=== PATIENT | female | born 1965 | race Caucasian/White ===

== ENCOUNTER → 2019-12-07 09:35 | Outpatient (BNVA) | payer MEDICAID, SELFPAY | PROVIDERS: PCP Family Medicine; Visit Provider Physician Assistant | DX: M17.12 Unilateral primary osteoarthritis, left knee (principal) | CPT/HCPCS: 20610; 99212; J1040 ==

== ENCOUNTER 2019-12-20 13:31 | Outpatient (REF) | payer MEDICAID, SELFPAY ==
[2019-12-21 13:25] LABS: CT PCR NOT DETECTED (Not Detect.); NG PCR NOT DETECTED (Not Detect.)
[2019-12-22 18:27] LABS: HPV mRNA E6/E7 Not Detected (Not Detected)
== END 2019-12-20 13:32 | disposition home or self-care (01) ==
LOC: HO.LAB 13:31
PROVIDERS: PCP Family Medicine; Referring Provider Family Medicine; Visit Provider Obstetrics & Gynecology
DX: Z01.419 Encounter for gynecological examination (general) (routine) without abnormal findings (principal); Z11.51 Encounter for screening for human papillomavirus (HPV); R10.2 Pelvic and perineal pain; Z11.3 Encounter for screening for infections with a predominantly sexual mode of transmission
CPT/HCPCS: 87491; 87591; 87624; 87625; 88142

== ENCOUNTER 2019-12-22 14:42 | Outpatient (REF) | payer MEDICAID, SELFPAY ==
--- NOTE | 2019-12-22 14:46 | US_ITS ---
EXAMINATION: ULTRASOUND PELVIS COMPLETE CLINICAL INFORMATION: Pelvic and perineal pain. COMPARISON: None TECHNIQUE: Transabdominal ultrasound pelvis is performed. FINDINGS: The uterus is anteverted and anteflexed measuring 10.6 cm in length, 3.2 cm in AP and 5.8 cm in transverse dimension. Endometrial thickness is 0.53 cm. No focal lesion seen. There is small nabothian cysts seen. Right ovary measures 3.0 x 1.0 x 2.0 cm and volume 3.14 mL. It appears unremarkable. Left ovary measures 2.6 x 1.7 x 2.19 cm and volume 5.18 mL There is no free fluid in cul-de-sac. US/US transvaginal IMPRESSION: Small nabothian cysts. Otherwise unremarkable uterus and ovaries.
--- NOTE | 2019-12-22 14:46 | US_ITS ---
EXAMINATION: ULTRASOUND PELVIS COMPLETE CLINICAL INFORMATION: Pelvic and perineal pain. COMPARISON: None TECHNIQUE: Transabdominal ultrasound pelvis is performed. FINDINGS: The uterus is anteverted and anteflexed measuring 10.6 cm in length, 3.2 cm in AP and 5.8 cm in transverse dimension. Endometrial thickness is 0.53 cm. No focal lesion seen. There is small nabothian cysts seen. Right ovary measures 3.0 x 1.0 x 2.0 cm and volume 3.14 mL. It appears unremarkable. Left ovary measures 2.6 x 1.7 x 2.19 cm and volume 5.18 mL There is no free fluid in cul-de-sac. US/US pelvic complete IMPRESSION: Small nabothian cysts. Otherwise unremarkable uterus and ovaries.
== END 2019-12-22 14:43 | disposition home or self-care (01) ==
LOC: HO.US 14:42
PROVIDERS: Visit Provider Obstetrics & Gynecology
DX: R10.2 Pelvic and perineal pain (principal)
CPT/HCPCS: 76830; 76856

== ENCOUNTER → 2020-01-03 09:30 | Outpatient (BNVA) | payer MEDICAID, SELFPAY | PROVIDERS: PCP Family Medicine; Visit Provider Internal Medicine Endocrinology, Diabetes & Metabolism | DX: E11.649 Type 2 diabetes mellitus with hypoglycemia without coma (principal); E11.21 Type 2 diabetes mellitus with diabetic nephropathy; E11.43 Type 2 diabetes mellitus with diabetic autonomic (poly)neuropathy; K31.84 Gastroparesis; Z79.4 Long term (current) use of insulin; E78.5 Hyperlipidemia, unspecified; I10 Essential (primary) hypertension | CPT/HCPCS: 99212 ==

== ENCOUNTER → 2020-01-06 10:03 | Outpatient (BNVA) | payer MEDICAID, SELFPAY | PROVIDERS: PCP Family Medicine; Visit Provider Dietitian, Registered | DX: Z76.89 Persons encountering health services in other specified circumstances (principal) ==

== ENCOUNTER 2020-01-11 08:34 | Outpatient (REF) | payer MEDICAID, SELFPAY | END 2020-01-11 08:35 | disposition home or self-care (01) | LOC: HO.LAB 08:34 | PROVIDERS: PCP Family Medicine; Referring Provider Internal Medicine Endocrinology, Diabetes & Metabolism; Visit Provider Obstetrics & Gynecology | DX: M47.816 Spondylosis without myelopathy or radiculopathy, lumbar region (principal) | CPT/HCPCS: 87086; 99212 ==

== ENCOUNTER → 2020-01-20 08:38 | Outpatient (BNVA) | payer MEDICAID, SELFPAY | PROVIDERS: PCP Family Medicine; Visit Provider Physician Assistant | DX: M17.12 Unilateral primary osteoarthritis, left knee (principal) | CPT/HCPCS: 20610; J7318 ==

== ENCOUNTER 2020-01-27 12:56 | Emergency (ER) | payer MEDICAID, SELFPAY ==
[2020-01-27 15:17] VITALS: BP 147/78; PULSE 73; RESP 16; TEMP 37.2; O2SAT 99; BMI 30.7
== END 2020-01-27 15:30 | disposition left against medical advice (07) ==
PROVIDERS: Emergency Provider Emergency Medicine; PCP Family Medicine
DX: Z04.9 Encounter for examination and observation for unspecified reason (principal)
CPT/HCPCS: 99281; 99282

== ENCOUNTER → 2020-02-10 10:59 | Outpatient (BNVA) | payer MEDICAID, SELFPAY | PROVIDERS: PCP Family Medicine; Referring Provider Family Medicine; Visit Provider Internal Medicine Gastroenterology | DX: Z76.89 Persons encountering health services in other specified circumstances (principal) ==

== ENCOUNTER → 2020-02-17 10:54 | Outpatient (BNVA) | payer MEDICAID, SELFPAY | PROVIDERS: PCP Family Medicine; Visit Provider Dietitian, Registered | DX: Z76.89 Persons encountering health services in other specified circumstances (principal) ==

== ENCOUNTER → 2020-03-05 08:44 | Outpatient (BNVA) | payer MEDICAID, SELFPAY | PROVIDERS: PCP Family Medicine; Referring Provider Family Medicine; Visit Provider Internal Medicine Endocrinology, Diabetes & Metabolism | DX: R00.0 Tachycardia, unspecified (principal); E11.649 Type 2 diabetes mellitus with hypoglycemia without coma; T38.3X5A Adverse effect of insulin and oral hypoglycemic [antidiabetic] drugs, initial encounter; E11.43 Type 2 diabetes mellitus with diabetic autonomic (poly)neuropathy; K31.84 Gastroparesis; E11.21 Type 2 diabetes mellitus with diabetic nephropathy; Z79.4 Long term (current) use of insulin; E78.5 Hyperlipidemia, unspecified; I10 Essential (primary) hypertension | CPT/HCPCS: 93005; 99212 ==

== ENCOUNTER 2020-03-23 10:54 | Day surgery (SDC) | payer MEDICAID, SELFPAY ==
[2020-03-22 12:07] VITALS: BMI 42.9
--- NOTE | 2020-03-22 13:34 | P.CONAN_ITS ---
Documented by User: Mala Ana Cristina 03/22/20 13:41 HPI - Anesthesia Eval Consult details Narrative: 54yo F for Therapeutic Medial Branch Block,L3,L4,DR L5 Follows cardiology for inappropriate tachy. Increased inderal and split into 2 doses. Thought to be secondary to autonomic imbalance. Instructed to follow up in 2 years. [facility] Past Medical History Medical History Anemia Asthma Chest pain 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, uncontrolled Diabetic nephropathy associated with type 2 diabetes mellitus Dyslipidemia Family history of colon cancer Fibromyalgia Gastroparesis Genu valgum GERD (gastroesophageal reflux disease) Hemorrhoids HTN (hypertension) 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 due to insulin Inappropriate sinus tachycardia correction (current) use of insulin Low back pain Lumbar spondylosis Migraine Obesity Palpitations Patella-femoral syndrome Patellofemoral arthritis Sinus tachycardia Spondylosis of lumbar region without myelopathy or radiculopathy Tubular adenoma Vitamin D deficiency Family History Family History Father Stomach cancer Mother Heart disease HTN (hypertension) Diabetes Son No problems noted. Paternal Aunt Stomach cancer Sister Stomach cancer Sister Uterine cancer Surgical History Surgical History H/O esophagogastroduodenoscopy History of arthroscopy of right knee History of bilateral carpal tunnel release History of bladder surgery History of colonoscopy History of tubal ligation Hx of tonsillectomy Social History Social History Household Members: Children Alcohol intake: current Alcohol intake frequency: does not drink Smoking Status: Former smoker Second Hand Smoke Exposure: No Use of substances other than those prescribed or required for medical reasons: No Advance Directives: No Advance Directives Information Provided: No Advance Directives on File: No Sexual orientation: Straight/Heterosexual Gender identity: female Meds Allergies Allergy/AdvReac Type Severity Reaction Status Date / Time No Known Allergies Allergy Verified 03/19/20 12:40 [No Known Allergies*] Home Medications Medication Instructions Recorded Confirmed Type aripiprazole 10 mg tablet 10 mg PO BEDTIME 11/30/19 03/19/20 History benztropine 0.5 mg tablet 0.5 mg PO DAILY 11/30/19 03/19/20 History clonazepam 1 mg tablet 1 mg PO DAILY 11/30/19 03/19/20 History clonidine HCl 0.1 mg tablet 0.1 mg PO BEDTIME 11/30/19 03/19/20 History ferrous sulfate 325 mg (65 mg 325 mg PO DAILY 11/30/19 03/19/20 History iron) tablet ibuprofen 600 mg tablet 600 mg PO Q8H PRN 11/30/19 03/19/20 History levothyroxine 112 mcg tablet 112 mcg PO DAILY 11/30/19 03/19/20 History omeprazole 20 mg capsule,delayed 20 mg PO DAILY 11/30/19 03/19/20 History release rosuvastatin 20 mg tablet 20 mg PO DAILY 11/30/19 03/19/20 History thiamine HCl (vitamin B1) 100 mg 100 mg PO DAILY 11/30/19 03/19/20 History tablet vitamin A palmitate 15,000 unit 15,000 unit PO DAILY 11/30/19 03/05/20 History tablet aspirin 325 mg tablet 81 mg PO DAILY tab 03/05/20 03/19/20 History cyanocobalamin (vitamin B-12) 1,000 mcg SUBLINGUAL DAILY 03/05/20 03/19/20 History 1,000 mcg sublingual lozenge valsartan 160 mg tablet 320 mg PO DAILY tab 03/05/20 03/19/20 History Exam Exam Date and Time: March 22, 2020 1334 Height,Weight and Vital Signs: Height 5 ft 4 in Weight 113.398 kg Pertinent Lab Results Pertinent Lab Results: Laboratory Tests 11/04/19 11/04/19 14:19 14:19 WBC 10.6 Hgb 11.0 L Hct 36.6 L Plt Count 330 Sodium 140 Potassium 3.4 Chloride 99 BUN 12 Creatinine 0.72 Narrative Narrative: EKG 03/2020 EKG shows sinus tachycardia with possible left atrial enlargement at 103 beats per minute, otherwise normal EKG Assessment and Plan Assessment Anesthesia Assessment: Chart Reviewed Documented by User: Hannah Brown 03/23/20 12:06 [facility] Past Medical History Medical History Anemia Asthma Chest pain 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, uncontrolled Diabetic nephropathy associated with type 2 diabetes mellitus Dyslipidemia Family history of colon cancer Fibromyalgia Gastroparesis Genu valgum GERD (gastroesophageal reflux disease) Hemorrhoids HTN (hypertension) 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 due to insulin Inappropriate sinus tachycardia 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 Paternal Aunt Stomach cancer Sister Stomach cancer Sister Uterine cancer Surgical History Surgical History H/O esophagogastroduodenoscopy History of arthroscopy of right knee History of bilateral carpal tunnel release History of bladder surgery History of colonoscopy History of tubal ligation Hx of tonsillectomy Social History Social History Household Members: Children Alcohol intake: current Alcohol intake frequency: does not drink Smoking Status: Former smoker Second Hand Smoke Exposure: No Use of substances other than those prescribed or required for medical reasons: No Advance Directives: No Advance Directives Information Provided: No Advance Directives on File: No Sexual orientation: Straight/Heterosexual Gender identity: female Meds Allergies Allergy/AdvReac Type Severity Reaction Status Date / Time No Known Allergies Allergy Verified 03/19/20 12:40 [No Known Allergies*] Home Medications Medication Instructions Recorded Confirmed Type aripiprazole 10 mg tablet 10 mg PO BEDTIME 11/30/19 03/19/20 History benztropine 0.5 mg tablet 0.5 mg PO DAILY 11/30/19 03/19/20 History clonazepam 1 mg tablet 1 mg PO DAILY 11/30/19 03/19/20 History clonidine HCl 0.1 mg tablet 0.1 mg PO BEDTIME 11/30/19 03/19/20 History ferrous sulfate 325 mg (65 mg 325 mg PO DAILY 11/30/19 03/19/20 History iron) tablet ibuprofen 600 mg tablet 600 mg PO Q8H PRN 11/30/19 03/19/20 History levothyroxine 112 mcg tablet 112 mcg PO DAILY 11/30/19 03/19/20 History omeprazole 20 mg capsule,delayed 20 mg PO DAILY 11/30/19 03/19/20 History release rosuvastatin 20 mg tablet 20 mg PO DAILY 11/30/19 03/19/20 History thiamine HCl (vitamin B1) 100 mg 100 mg PO DAILY 11/30/19 03/19/20 History tablet vitamin A palmitate 15,000 unit 15,000 unit PO DAILY 11/30/19 03/05/20 History tablet aspirin 325 mg tablet 81 mg PO DAILY tab 03/05/20 03/19/20 History cyanocobalamin (vitamin B-12) 1,000 mcg SUBLINGUAL DAILY 03/05/20 03/19/20 History 1,000 mcg sublingual lozenge valsartan 160 mg tablet 320 mg PO DAILY tab 03/05/20 03/19/20 History Exam Airway Mallampati Class: III TM Dist: >3cm Neck ROM: Limited Loose/Missing/Broken Teeth: No Heart: RRR Lungs: CTA Assessment and Plan Assessment Anesthesia Assessment: Anesthesia Plan Discussed and Chart Reviewed Final Anesthetic Review NPO: Yes ASA Class: III Final Preanesthetic Review: Meds/Allgs Chart Reviewed, Consent Obtained/Reviewed and Anes Risks/Benef Reviewed Patient Risk: Intermediate Procedure Risk: Low Anesthetic Plan Anesthetic Plan: MAC: Disposition: Standard PACU
--- NOTE | 2020-03-23 09:18 | FL_ITS ---
EXAMINATION: XR FLUOROSCOPY WITH IMAGES CLINICAL INFORMATION: Medial branch block COMPARISON: Previous exam October 2019 TECHNIQUE: Fluoroscopy performed by Dr. Juan Carlos Taylor. Fluoroscopy time: 0.7 minutes DAP: 11 Gycm2 Images: 6 FINDINGS: Images demonstrate bilateral L3, L4 and L5 extraforaminal injections. FL/FL guidance in OR IMPRESSION: Fluoroscopic guidance for bilateral lower lumbar spine medial branch block
[2020-03-23 11:52] LABS: Glucose, Whole Blood 85 mg/dL (60-115)
[2020-03-23] MEDS: Lactated Ringers 1,000 ML 100 ML IVCONT (11:58)
--- NOTE | 2020-03-23 13:16 | MHC.SHP ---
Pre-Procedural Eval Section A The patient is an INPATIENT: No The History & Physical has been completed within 30 days and I have reviewed it.: No Section B Chief Complaint: spondylosis without myelopathy or radiculopathy Details of Present Illness: As above Relevant Family History (Specify if Yes): No Relevant Social History: None Present Medications: see Short Stay Collaborative assessment Medical History: No relevant PMH History of Previous Operations: No relevant previous surgery Allergies: Allergies Allergy/AdvReac Type Severity Reaction Status Date / Time No Known Allergies Allergy Verified 03/19/20 12:40 [No Known Allergies*] Review of Systems Sugical H&P ROS: Negative: Constitution, Cardiovascular, Respiratory, Neurological, Psychiatric, Hem-Onc, Allergic/Immunologic, Gastrointestinal, Genitourinary, Musculoskeletal, Integumentary, Endocrine and Eyes/Ears/Nose/Throat Exam Surgical H&P Exam: Normal: HEENT, Normal: Heart, Normal: Lungs, Normal: Extremities, Normal: Abdomen, Normal: Skin and Normal: Neurological Plan Diagnosis/Plan: Unchanged I have reviewed the history and physical and performed a pertinent physical examination on my patient. No changes have occurred unless specified.
--- NOTE | 2020-03-23 13:19 | PC.NURSE ---
PATIENT REPORTED FEELING DIZZINESS AND REQUESTED HER POC BE RETAKEN. POC WAS 53 AND D5 [address] ENNIS WAS NOTIFIED. POC RETAKEN AT 1318 AT 91. PATIENT STATES FEELIJNG MUCH BETTER AT THIS TIME. DR. ENNIS CAME AND CHECKED PATIENT.
[2020-03-23 13:25] LABS: Glucose, Whole Blood 91 mg/dL (60-115)
[2020-03-23 13:25] LABS: Glucose, Whole Blood 53 mg/dL (60-115)
[2020-03-23] MEDS: Dextrose 5 % 1,000 ML 50 ML IVCONT (13:26)
--- NOTE | 2020-03-23 14:01 | PM.OP ---
Brief Operative Note Date of Service: 03/23/20 Pre-op diagnosis: Spondylosis lumbar spine without myelopathy or radiculopathy Post-op diagnosis: same Procedure: Bilateral L3-L4 dorsal ramus L5 medial branch block therapeutic. Implants: None Surgeon: Juan Carlos Taylor MD Anesthesia: MAC Estimated blood loss (mL): 1 Pathology: none sent Condition: stable Disposition: PACU
[2020-03-23 14:02] VITALS: BP 122/62; PULSE 91; RESP 12; TEMP 36.9; O2SAT 95
[2020-03-23 14:05] LABS: Glucose, Whole Blood 76 mg/dL (60-115)
[2020-03-23] MEDS: oxyCODONE HCl Immed Release 5 MG TABLET PO (14:13)
[2020-03-23] MEDS: Acetaminophen 325 MG TABLET 650 MG PO (14:14)
[2020-03-23 14:17] VITALS: BP 136/68; PULSE 88; RESP 17; TEMP 36.9; O2SAT 94
--- NOTE | 2020-03-23 14:17 | PC.NURSE ---
POC on arrival to pacu 76
--- NOTE | 2020-03-23 14:40 | HO.POSTANES ---
Post Anesthesia Evaluation Post Anesthesia Evaluation Vital Signs: Vital Signs Temp Pulse Resp BP Pulse Ox 03/23/20 14:17 98.4 F 88 17 136/68 94 03/23/20 14:02 98.4 F 91 12 122/62 95 Anesthesia: Monitored Mental Status: Awake Pain Control: Satisfactory Nausea/Vomiting: None Hydration: Adequate Anesthesia-Related Issues: No Anes. Related Issues
--- NOTE | 2020-03-27 07:51 | W.PM.OPN ---
Operative Note Operative Note Date of Service: 03/23/20 Narrative: Informed consent was explained to the patient. All questions were explained and answered. The patient was taken inside the operating room where she was positioned prone on the operating table. ASA monitors were applied and the patient was sedated.. Time-out was performed delineating correct site, side, the nature of the procedure, patient's allergy, preoperative antibiotic if needed. All operating room staff was participating in OR time-out procedure. The lower back was prepped with ChloraPrep and draped with sterile towels. Sterilely draped C-arm was brought over the operating field and square picture of L4-and L5 vertebra and S1 AREA were delineated on the screen. Point of interest were delineated as connection of superior articular process of L4 and L5 vertebra bilaterally with corresponding transverse processes, as well as connection of the sacral alae bilaterally with superior articular process of S1. The projections of the point of interest to the skin were injected with the small amount of local anesthetic lidocaine 2% 1-1.5 cc. After that 22 gauge QP spinal needles were driven to the point of interest in tunnel vision fashion. After needles gently contacted the bone at the point of interests the needle was injected with small amount of bupivacaine 0.5%-1cc mixad with kenalog. Total dose of kenalog was 40 mg.. Upon completion of the injections needles were removed and sterile dressings were applied patient was awaken and taken outside of the operating room to recovery room where the patient recovered uneventfully. The patient went home without immediate complications.
== END 2020-03-23 14:42 | disposition home or self-care (01) ==
PROVIDERS: PCP Family Medicine; Visit Provider Anesthesiology
PROC: (CPT 64493; principal; 2020-03-23 13:00)
DX: M47.816 Spondylosis without myelopathy or radiculopathy, lumbar region (principal); E11.649 Type 2 diabetes mellitus with hypoglycemia without coma; E11.21 Type 2 diabetes mellitus with diabetic nephropathy; Z79.4 Long term (current) use of insulin; D64.9 Anemia, unspecified; I10 Essential (primary) hypertension; J45.909 Unspecified asthma, uncomplicated; R00.0 Tachycardia, unspecified; Z79.82 Long term (current) use of aspirin; Z79.899 Other long term (current) drug therapy; Z87.891 Personal history of nicotine dependence
CPT/HCPCS: 64493; 64494 ×2; 82947; J2250; J3010; J3300; Q9967

== ENCOUNTER → 2020-04-17 11:36 | Outpatient (BNVA) | payer MEDICAID, SELFPAY | PROVIDERS: PCP Family Medicine; Visit Provider Internal Medicine Cardiovascular Disease ==

== ENCOUNTER → 2020-04-19 10:51 | Outpatient (BNVA) | payer MEDICAID, SELFPAY | PROVIDERS: PCP Family Medicine; Visit Provider Dietitian, Registered ==

== ENCOUNTER 2020-04-24 14:05 | Outpatient (REF) | payer MEDICAID, SELFPAY ==
--- NOTE | ~2020-04-24 | XR_ITS ---
EXAMINATION: XR CHEST CLINICAL INFORMATION: Contact exposure to viral communicable disease. COMPARISON: 05/05/2019 TECHNIQUE: 2 views of the chest were obtained. FINDINGS: Normal heart size. Mediastinal silhouette is normal. Stable appearance of the beulah. Pulmonary vascularity is within normal limits. No focal consolidation is seen. Linear opacity in the left lung base, similar to previous, probably atelectasis/scarring. No effusion or edema. No pneumothorax. XR/XR chest 2V IMPRESSION: No lobar consolidation.
== END 2020-04-24 14:06 | disposition home or self-care (01) ==
LOC: HO.XRAY 14:05
PROVIDERS: Visit Provider Emergency Medicine
DX: Z20.828 Contact with and (suspected) exposure to other viral communicable diseases (principal)
CPT/HCPCS: 71046

== ENCOUNTER → 2020-04-25 13:36 | Outpatient (BNVA) | payer MEDICAID, SELFPAY | PROVIDERS: PCP Family Medicine; Visit Provider Anesthesiology ==

== ENCOUNTER 2020-05-03 05:44 | Emergency (ER) | payer MEDICAID, SELFPAY ==
--- NOTE | ~2020-05-03 | XR_ITS ---
EXAMINATION: XR LUMBOSACRAL SPINE CLINICAL INFORMATION: Fall. COMPARISON: None TECHNIQUE: Three views of the lumbosacral spine. FINDINGS: There is normal lumbar lordosis. The vertebral heights, alignment and disc heights are normal. There is no visible acute fracture, dislocation or lytic process. There is mild ventral spondylosis lower lobe lumbar spine. There is mild right L4-L5 facet joint arthropathy. A limbus L2 vertebra is noted. The paravertebral soft tissues are normal. XR/XR lumbar spine 2-3V IMPRESSION: No acute fracture or dislocation. Mild ventral spondylosis lower lumbar spine and a limbus vertebra L2 vertebra.
[2020-05-03 06:09] VITALS: BP 112/46; PULSE 85; RESP 20; TEMP 36.7; O2SAT 96; BMI 42.5
--- NOTE | 2020-05-03 06:40 | ED_ITS ---
HPI - Back Pain/Injury General Chief Complaint: Back Pain/Injury Stated Complaint: FALL/BACK PAIN Time Seen by Provider: 05/03/20 06:40 Source: patient Mode of arrival: ambulatory Limitations: no limitations History of Present Illness HPI Narrative: last night slipped in the tub and fell landing on hard in a seated position since then c/o low back pain hurts to talk no other injuries, no AC therapy , no saddle anesthesia, no b/b incontinence MD elicited complaint: back injury Pertinent past history: prior back pain and recent trauma Onset (ago): hour(s) (10) Timing: constant Severity: moderate Similar Symptoms Previously: No Quality: sharp Location: lumbar spine Radiation: none Exacerbating factors: movement and walking Relieving factors: none Context: fall Associated symptoms: denies other symptoms Treatments prior to arrival: cold therapy Work related injury: No Related Data Home Medications Medication Instructions Recorded Confirmed benztropine 0.5 mg tablet 0.5 mg PO DAILY 11/30/19 04/17/20 clonazepam 1 mg tablet 1 mg PO DAILY 11/30/19 04/17/20 clonidine HCl 0.1 mg tablet 0.1 mg PO BEDTIME 11/30/19 04/17/20 ferrous sulfate 325 mg (65 mg 325 mg PO DAILY 11/30/19 04/17/20 iron) tablet ibuprofen 600 mg tablet 600 mg PO Q8H PRN 11/30/19 04/17/20 levothyroxine 112 mcg tablet 112 mcg PO DAILY 11/30/19 04/17/20 omeprazole 20 mg capsule,delayed 20 mg PO DAILY 11/30/19 04/17/20 release rosuvastatin 20 mg tablet 20 mg PO DAILY 11/30/19 04/17/20 thiamine HCl (vitamin B1) 100 mg 100 mg PO DAILY 11/30/19 04/17/20 tablet vitamin A palmitate 15,000 unit 15,000 unit PO DAILY 11/30/19 04/17/20 tablet aspirin 325 mg tablet 81 mg PO DAILY tab 03/05/20 04/17/20 cyanocobalamin (vitamin B-12) 1,000 mcg SUBLINGUAL DAILY 03/05/20 04/17/20 1,000 mcg sublingual lozenge valsartan 160 mg tablet 320 mg PO DAILY tab 03/05/20 04/17/20 aripiprazole 10 mg tablet 10 mg PO BEDTIME 04/17/20 04/17/20 Previous Rx's Medication Instructions Recorded insulin regular hum U-500 conc See Rx Instructions SUBCUT .Twice 01/03/20 a day 30 Days #12 ml gabapentin 400 mg capsule 400 mg PO TID #270 cap 01/17/20 metoclopramide HCl 5 mg tablet 5 mg PO ONCE 30 Days #30 tab MDD 4 02/10/20 metformin 500 mg tablet 500 mg PO BID 90 Days #180 tab 03/08/20 blood sugar diagnostic #150 ea 05/02/20 pen needle, diabetic 32 gauge x #100 ea 05/02/20 propranolol 80 mg tablet 80 mg PO BID 90 Days #180 tab 05/02/20 cyclobenzaprine 10 mg PO TID PRN #14 tab 05/03/20 hydrocodone-acetaminophen 1 tab PO Q6H PRN #10 tab 05/03/20 lidocaine 1 patch TOPICAL DAILY PRN #10 ea 05/03/20 Allergies Allergy/AdvReac Type Severity Reaction Status Date / Time No Known Allergies Allergy Verified 05/03/20 06:12 [No Known Allergies*] Review of Systems Review of Systems: Constitutional : No Weight loss, No Fever, No Chills, ENT/Mouth : No Hearing loss, No Ear Pain, No Nasal Congestion, No Sinus Pain, No Hoarseness, No sore throat, No Rhinorrhea, No Swallowing Difficulty Cardiovascular : No Chest Pain, No SOB Respiratory : No Cough, No Dyspnea Gastrointestinal : No Nausea, No Vomiting, No Diarrhea, No abdominal Pain, No Hematochezia, No Melena Genitourinary : No Dysuria, No Urinary Frequency, No Hematuria, No Urinary Incontinence, Musculoskeletal : positive back pain Skin : No Skin Lesions, No rash Neuro : No Weakness, No Numbness, No Paresthesias, no loss of bowel or bladder incontinence, no saddle anesthesia [facility] Past Medical History Attestation statement: The following information was validated with the patient. 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 Paternal Aunt Stomach cancer Sister Stomach cancer Sister Uterine cancer Social History Social History Household Members: Children Alcohol intake: current Alcohol intake frequency: does not drink Smoking Status: Former smoker Second Hand Smoke Exposure: No Advance Directives: No Advance Directives Information Provided: No Sexual orientation: Straight/Heterosexual Gender identity: female Physical Exam Vital Signs: Vital Signs: Last Vital Signs Temp 98.1 F 05/03/20 06:09 Pulse 85 05/03/20 06:09 Resp 20 05/03/20 06:09 BP 112/46 L 05/03/20 06:09 Pulse Ox 96 05/03/20 06:09 Body Mass Index 42.5 Appearance: Alert. Oriented X3. No acute distress. Eyes: Pupils equal, round and reactive to light. ENT: Pharynx normal. Neck: Normal inspection. Neck supple. CVS: Normal heart rate and rhythm. Pulses normal. Respiratory: No respiratory distress. Breath sounds normal. Abdomen: Soft and nontender. Back: ttp along lower lumbar spine and paraspinals Skin: Skin warm and dry. Normal skin color. Normal skin turgor. Extremities: No lower extremity edema. No calf ttp Neuro: Oriented X 3. No motor deficit. No sensory deficit. SILT inner thigh, L5 5/5 bilaterally Course Course Course Narrative: up and walking feels much better stable for DC MDM - Back Pain/Injury MDM Narrative Medical decision making narrative: 54 yo female with hx of pain issues along with DDD and back pain slipped in the tub last night falling onto her buttocks causing pain will obtain xrays, she is NV intact no CE symptoms, PO pain medications ordered Discharge Plan Discharge Clinical Impression: Acute lumbar myofascial strain Qualifiers: Encounter type: initial encounter Qualified Code(s): S39.012A - Strain of muscle, fascia and tendon of lower back, initial encounter Patient Disposition: Home, Self-Care Instructions: Low Back Strain (ED) Additional Instructions: return to ED for any worsening symptoms or concerns Prescriptions: New cyclobenzaprine 10 mg tablet 10 mg PO TID PRN (Reason: muscle spasm) Qty: 14 RF: 0 lidocaine 4 % adhesive patch,medicated 1 patch topical DAILY PRN (Reason: pain) Qty: 10 RF: 0 hydrocodone-acetaminophen 5-325 mg tablet 1 tab PO Q6H PRN (Reason: pain) Qty: 10 RF: 0 No Action gabapentin 400 mg capsule 400 mg PO TID Qty: 270 RF: 1 metformin 500 mg tablet 500 mg PO BID 90 Days Qty: 180 RF: 1 propranolol 80 mg tablet 80 mg PO BID 90 Days Qty: 180 RF: 3 (DME) pen needle, diabetic [BD Usha 2nd Gen Pen Needle] 32 gauge x 5/32 needle See Rx Instructions .MEDSUPPLY Qty: 100 RF: 4 (DME) FreeStyle Lite Strips Strip See Rx Instructions .MEDSUPPLY Qty: 150 RF: 6 metoclopramide HCl [Reglan] 5 mg tablet 5 mg PO ONCE MDD 4 30 Days Qty: 30 RF: 2 Humulin R U-500 (Conc) Kwikpen 500 unit/mL (3 mL) insulin pen See Rx Instructions subcut .Twice a day 30 Days Qty: 12 RF: 6 clonidine HCl 0.1 mg tablet 0.1 mg PO BEDTIME RF: 0 rosuvastatin [Crestor] 20 mg tablet 20 mg PO DAILY RF: 0 ibuprofen 600 mg tablet 600 mg PO Q8H PRN (Reason: Pain) RF: 0 benztropine 0.5 mg tablet 0.5 mg PO DAILY RF: 0 thiamine HCl (vitamin B1) 100 mg tablet 100 mg PO DAILY RF: 0 vitamin A palmitate 15,000 unit tablet 15,000 unit PO DAILY RF: 0 omeprazole 20 mg capsule,delayed release(DR/EC) 20 mg PO DAILY RF: 0 levothyroxine 112 mcg tablet 112 mcg PO DAILY RF: 0 ferrous sulfate 325 mg (65 mg iron) tablet 325 mg PO DAILY RF: 0 clonazepam 1 mg tablet 1 mg PO DAILY RF: 0 aspirin 325 mg tablet 81 mg PO DAILY RF: 0 cyanocobalamin (vitamin B-12) 1,000 mcg lozenge 1,000 mcg sublingual DAILY RF: 0 valsartan 160 mg tablet 320 mg PO DAILY RF: 0 aripiprazole 10 mg tablet 10 mg PO BEDTIME RF: 0 Referrals: Jaida Martin DO [Primary Care Provider] - 2 days (if not better) Print Language: Mongolian
--- NOTE | 2020-05-03 06:42 | PC.NURSE ---
MD at bedside for primary eval, requesting geospatial extractor analysis.
[2020-05-03] MEDS: diazePAM 5 MG TABLET PO (06:49)
[2020-05-03] MEDS: oxyCODONE HCl Immed Release 5 MG TABLET PO (06:49)
--- NOTE | 2020-05-03 07:36 | PC.NURSE ---
REPORT FROM [facility]. PT SLIP AND FALL YESTERDAY - C/O BACK PAIN. MEDICATED ON PREVIOUS SHIT. AWAITING XRAY. PT IN NO OBVIOUS DISTRESS
--- NOTE | 2020-05-03 08:57 | PC.NURSE ---
PT FEELING MUCH BETTER AFTER MEDS. AMBULATED WITH A SLOW STEADY GAIT. HAS RIDE HOOME. XRAYS NEGATIVE. WILL DC
== END 2020-05-03 08:58 | disposition home or self-care (01) ==
PROVIDERS: Emergency Provider Emergency Medicine; PCP Family Medicine
DX: S39.012A Strain of muscle, fascia and tendon of lower back, initial encounter (principal); W16.212A Fall in (into) filled bathtub causing other injury, initial encounter; E11.9 Type 2 diabetes mellitus without complications; I10 Essential (primary) hypertension; E78.5 Hyperlipidemia, unspecified; M47.816 Spondylosis without myelopathy or radiculopathy, lumbar region; Y93.E1 Activity, personal bathing and showering; Y92.031 Bathroom in apartment as the place of occurrence of the external cause; Y99.9 Unspecified external cause status; Z79.4 Long term (current) use of insulin
CPT/HCPCS: 72100; 99283

== ENCOUNTER → 2020-05-04 13:13 | Outpatient (BNVA) | payer MEDICAID, SELFPAY | PROVIDERS: PCP Family Medicine; Visit Provider Student in an Organized Health Care Education/Training Program | DX: M79.7 Fibromyalgia (principal) | CPT/HCPCS: 99212 ==

== ENCOUNTER 2020-05-09 13:40 | Outpatient (REF) | payer MEDICAID, SELFPAY ==
--- NOTE | ~2020-05-09 | MM_ITS ---
EXAMINATION: MM SCREENING DIGITAL BREAST TOMOSYNTHESIS, BILATERAL CLINICAL INFORMATION: Screening. Asymptomatic. The lifetime risk of breast cancer based on the Tyrer-Cuzick Model is 13%. COMPARISON: Mammography: November 16, 2018 and studies dating back to October 20, 2013 TECHNIQUE: Digital breast tomosynthesis is performed in both the craniocaudal and mediolateral oblique views along with computer-aided detection (CAD). Synthesized 2D images are generated from the tomosynthesis. FINDINGS: There are scattered areas of fibroglandular density (ACR BI-RADS breast composition Category b). There are no significant masses, abnormal calcifications, or other abnormalities. MM/MM tomosynthesis screening BI IMPRESSION: There are no significant changes from prior study. ASSESSMENT: BI-RADS 1: Negative RECOMMENDATION: Routine annual mammography screening. This patient's information was entered into a reminder system with a target due date for their next mammogram.
== END 2020-05-09 13:41 | disposition home or self-care (01) ==
LOC: HO.MAMMO 13:40
PROVIDERS: Visit Provider Obstetrics & Gynecology
DX: Z12.31 Encounter for screening mammogram for malignant neoplasm of breast (principal)
CPT/HCPCS: 77063; 77067

== ENCOUNTER 2020-06-25 08:39 | Outpatient (REF) | payer MEDICAID, SELFPAY ==
[2020-06-25 13:47] LABS: Alanine Aminotransferase 18 U/L (0-31); Albumin Level 4.2 g/dL (3.5-5.0); Alkaline Phosphatase 153 U/L (39-117); Anion Gap 16 (12-20); Aspartate Amino Transferase 21 U/L (5-31); Bilirubin Total 0.3 mg/dL (0.0-1.0); Blood Urea Nitrogen 17 mg/dL (9-16); Carbon Dioxide 29 mmol/L (22-29); Chloride 99 mmol/L (96-108); Cholesterol 105 mg/dL; Estimated Glomerular Filt Rate > 60; Glucose Fasting 248 mg/dL (60-99); HDL Cholesterol 41 mg/dL; LDL Cholesterol Calculated 32 mg/dl; Potassium 3.6 mmol/L (3.3-5.1); Sodium 140 mmol/L (135-145); Triglycerides 162 mg/dL
[2020-06-25 14:10] LABS: Free T4 (Free Thyroxine) 1.14 ng/dL (0.71-1.85); Thyroid Stimulating Hormone 3.11 uIU/mL (0.32-4.0); Vitamin B12 422 pg/mL (200-900)
[2020-06-25 14:35] LABS: Creatinine Urine 52.11 mg/dL; Microalbumin Urine < 5.0 mg/L
[2020-06-26 06:51] LABS: LDL Cholesterol Direct 43 mg/dL (<100)
== END 2020-06-25 08:40 | disposition home or self-care (01) ==
LOC: HO.10HDL 08:39
PROVIDERS: PCP Family Medicine; Visit Provider Internal Medicine Endocrinology, Diabetes & Metabolism
DX: E11.21 Type 2 diabetes mellitus with diabetic nephropathy (principal); E11.649 Type 2 diabetes mellitus with hypoglycemia without coma; K31.84 Gastroparesis; R16.0 Hepatomegaly, not elsewhere classified; T38.3X5A Adverse effect of insulin and oral hypoglycemic [antidiabetic] drugs, initial encounter; E78.5 Hyperlipidemia, unspecified; I10 Essential (primary) hypertension; Z79.4 Long term (current) use of insulin; Z87.891 Personal history of nicotine dependence
CPT/HCPCS: 36415; 80053; 80061; 82043; 82607; 82947; 83721; 84439; 84443; 99212

== ENCOUNTER → 2020-07-02 09:38 | Outpatient (BNVA) | payer MEDICAID, SELFPAY | PROVIDERS: PCP Family Medicine; Visit Provider Anesthesiology | DX: E66.01 Morbid (severe) obesity due to excess calories (principal); M41.9 Scoliosis, unspecified; M47.816 Spondylosis without myelopathy or radiculopathy, lumbar region | CPT/HCPCS: 99202 ==

== ENCOUNTER 2020-07-12 08:02 | Outpatient (REF) | payer MEDICAID, SELFPAY ==
--- NOTE | ~2020-07-12 | XR_ITS ---
EXAMINATION: XR STANDING AP KNEES XR KNEE, LEFT CLINICAL INFORMATION: Knee pain COMPARISON: Radiographs left knee 06/15/2019, 09/10/2017; radiographs right knee 09/10/2017. TECHNIQUE: Standing AP view of both knees is performed along with lateral and axial patella views of the left knee. FINDINGS: Left: No fracture or dislocation, destructive process, or suprapatellar effusion. There is mild soft tissue swelling lower prepatellar soft tissues in region of patellar tendon. No patella tito or patella baja. There is narrowing medial knee joint compartment and mild degenerative change patellofemoral joint with lateral patellar spur. No erosive change. Right: No joint narrowing or erosive change. No destructive process or periostitis. XR/XR knee standing BI IMPRESSION: 1. Left: Narrowing medial knee joint compartment and mild degenerative changes patellofemoral joint. Superficial anterior soft tissue swelling just below patella. 2. Right: Unremarkable.
--- NOTE | ~2020-07-12 | XR_ITS ---
EXAMINATION: XR STANDING AP KNEES XR KNEE, LEFT CLINICAL INFORMATION: Knee pain COMPARISON: Radiographs left knee 06/15/2019, 09/10/2017; radiographs right knee 09/10/2017. TECHNIQUE: Standing AP view of both knees is performed along with lateral and axial patella views of the left knee. FINDINGS: Left: No fracture or dislocation, destructive process, or suprapatellar effusion. There is mild soft tissue swelling lower prepatellar soft tissues in region of patellar tendon. No patella tito or patella baja. There is narrowing medial knee joint compartment and mild degenerative change patellofemoral joint with lateral patellar spur. No erosive change. Right: No joint narrowing or erosive change. No destructive process or periostitis. XR/XR knee LT 2V IMPRESSION: 1. Left: Narrowing medial knee joint compartment and mild degenerative changes patellofemoral joint. Superficial anterior soft tissue swelling just below patella. 2. Right: Unremarkable.
== END 2020-07-12 08:03 | disposition home or self-care (01) ==
LOC: HO.HOSX 08:02
PROVIDERS: Visit Provider Physician Assistant
DX: M25.562 Pain in left knee (principal); M25.561 Pain in right knee
CPT/HCPCS: 20610; 73560; 73565; 99212; J1020

== ENCOUNTER → 2020-07-18 10:10 | Outpatient (BNVA) | payer MEDICAID, SELFPAY | PROVIDERS: PCP Family Medicine; Visit Provider Dietitian, Registered | DX: E11.21 Type 2 diabetes mellitus with diabetic nephropathy (principal) | CPT/HCPCS: 97803 ==

== ENCOUNTER 2020-08-08 08:27 | Outpatient (REF) | payer MEDICAID, SELFPAY ==
--- NOTE | ~2020-08-08 | US_ITS ---
EXAMINATION: US EXTRACRANIAL CAROTID DUPLEX, BILATERAL CLINICAL INFORMATION: Dizziness and giddiness. COMPARISON: None. TECHNIQUE: Real-time ultrasound and Doppler techniques (integrating B-mode 2-D vascular images, Doppler spectral analysis and color-flow Doppler imaging) were utilized to interrogate the extracranial carotid arteries, the vertebral arteries and proximal subclavian arteries bilaterally. The degree of stenosis is determined by criteria similar to NASCET. FINDINGS: Right Side: 1. There is no atherosclerotic plaque seen in the bifurcation/proximal ICA region. 2. The common carotid artery PSV proximally is 99 cm/s and distally 79 cm/s. 3. The proximal internal carotid artery velocities are 90 cm/s systolic and 23 cm/s diastolic. 4. The proximal external carotid artery PSV is 98 cm/s. 5. The vertebral artery shows antegrade flow. 6. The subclavian artery waveforms are normal. Left Side: 1. There is no atherosclerotic plaque seen in the bifurcation/proximal ICA region. 2. The common carotid artery PSV proximally is 117 cm/s and distally 91 cm/s. 3. The proximal internal carotid artery velocities are 57 cm/s systolic and 19 cm/s diastolic. 4. The proximal external carotid artery PSV is 93 cm/s. 5. The vertebral artery shows antegrade flow. 6. The subclavian artery waveforms are normal. There is bilateral cervical lymphadenopathy. Lymph nodes are normal in size and demonstrate normal morphology. US/US carotid duplex BI IMPRESSION: 1. RIGHT: Normal. 2. LEFT: Normal.
== END 2020-08-08 08:28 | disposition home or self-care (01) ==
LOC: HO.US 08:27
PROVIDERS: Visit Provider Family Medicine
DX: R42 Dizziness and giddiness (principal)
CPT/HCPCS: 93880

== ENCOUNTER 2020-08-10 10:28 | Emergency (ER) | payer MEDICAID, SELFPAY ==
--- NOTE | ~2020-08-10 | XR_ITS ---
EXAMINATION: XR TOES, LEFT CLINICAL INFORMATION: Fifth digit pain. COMPARISON: None TECHNIQUE: 3 views of the left toes were obtained. FINDINGS: There are no fractures or dislocations. No joint effusion is identified. No bone, joint or soft tissue abnormality is demonstrated. XR/XR toe LT min 2V IMPRESSION: Unremarkable left toe exam
[2020-08-10 11:38] VITALS: BP 118/65; PULSE 89; RESP 18; TEMP 37.1; O2SAT 95; BMI 42.9
--- NOTE | 2020-08-10 13:26 | ED_ITS ---
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 Patient tells me she tripped and fell getting out of bed in the night. She now has pain and bruising to the toe which is worsened with weight-bearing. Related Data Home Medications Medication Instructions Recorded Confirmed benztropine 0.5 mg tablet 0.5 mg PO DAILY 11/30/19 06/25/20 clonazepam 1 mg tablet 1 mg PO DAILY 11/30/19 06/25/20 clonidine HCl 0.1 mg tablet 0.1 mg PO BEDTIME 11/30/19 06/25/20 ferrous sulfate 325 mg (65 mg 325 mg PO DAILY 11/30/19 06/25/20 iron) tablet ibuprofen 600 mg tablet 600 mg PO Q8H PRN 11/30/19 06/25/20 levothyroxine 112 mcg tablet 112 mcg PO DAILY 11/30/19 06/25/20 omeprazole 20 mg capsule,delayed 20 mg PO DAILY 11/30/19 06/25/20 release rosuvastatin 20 mg tablet 20 mg PO DAILY 11/30/19 06/25/20 thiamine HCl (vitamin B1) 100 mg 100 mg PO DAILY 11/30/19 06/25/20 tablet vitamin A palmitate 15,000 unit 15,000 unit PO DAILY 11/30/19 06/25/20 tablet aspirin 325 mg tablet 81 mg PO DAILY tab 03/05/20 06/25/20 cyanocobalamin (vitamin B-12) 1,000 mcg SUBLINGUAL DAILY 03/05/20 06/25/20 1,000 mcg sublingual lozenge valsartan 160 mg tablet 320 mg PO DAILY tab 03/05/20 06/25/20 aripiprazole 10 mg tablet 10 mg PO BEDTIME 04/17/20 06/25/20 melatonin 10 mg tablet 10 mg PO BEDTIME PRN 07/02/20 risperidone 2 mg tablet 2 mg PO DAILY 07/02/20 semaglutide 1 mg/dose (2 mg/1.5 1 mg SUBCUT QWEEK 07/02/20 mL) subcutaneous pen injector tramadol 50 mg tablet 50 mg PO BID PRN 07/02/20 Previous Rx's Medication Instructions Recorded blood sugar diagnostic #150 ea 05/02/20 propranolol 80 mg tablet 80 mg PO BID 90 Days #180 tab 05/02/20 cyclobenzaprine 10 mg PO TID PRN #14 tab 05/03/20 lidocaine 1 patch TOPICAL DAILY PRN #10 ea 05/03/20 gabapentin 400 mg capsule 400 mg PO TID #270 cap 05/04/20 TRUEplus Lancets 33 gauge #120 ea NS 05/21/20 insulin regular hum U-500 conc See Rx Instructions SUBCUT .Twice 06/25/20 a day 30 Days #18 ml metformin 500 mg tablet 500 mg PO BID 90 Days #180 tab 06/25/20 pen needle, diabetic 32 gauge x #100 ea 06/25/20 sitagliptin 100 mg tablet 100 mg PO DAILY 30 Days #30 tab 06/25/20 tizanidine 4 mg tablet 4 mg PO BID PRN 30 Days #60 tab 07/02/20 metoclopramide HCl 5 mg tablet 5 mg PO BEDTIME #30 tab 07/31/20 Allergies Allergy/AdvReac Type Severity Reaction Status Date / Time No Known Allergies Allergy Verified 08/10/20 11:38 [No Known Allergies*] Review of Systems Review of Systems: Yes all other systems are reviewed and are negative Constitutional: Constitutional: Reports no additional constitutional co mplaints, Denies body ache(s), Denies chills, Denies fever(s), Denies headache(s) and Denies weakness Eyes: Eyes: Reports no additional eye complaints and Denies change in vision ENT: Reports system reviewed and no additional complaints, except as documented, Denies dizziness, Denies headache(s), Denies nasal congestion, Denies nasal discharge and Denies neck pain Cardiovascular: Cardiovascular: Reports no additional cardiovascular complaints, Denies chest pain, Denies leg edema and Denies dyspnea Respiratory: Respiratory: Reports no additional respiratory complaints, Denies cough and Denies dyspnea Gastrointestinal: Gastrointestinal: Reports no additional gastrointestinal complaints, Denies abdominal pain, Denies diarrhea, Denies nausea and Denies vomiting Genitourinary: Genitourinary: Reports no additional female genitourinary complaints and Denies urinary incontinence Musculoskeletal: Musculoskeletal: Reports no additional musculoskeletal complaints, Denies back pain, Reports arthralgias, Reports joint swelling, Reports limited range of motion, Denies neck pain, Denies numbness and Denies tingling Integumentary/Breasts: Skin/Breast: Reports system reviewed and no additional complaints, except as docu and Denies rash Neurologic: Reports system reviewed and no additional complaints, except as documented, Denies Abnormal speech present, Denies dizziness, Denies headache(s), Denies numbness, Denies tingling and Denies weakness [facility] Past Medical History Attestation statement: The following information was validated with the patient. 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 Low back pain Lumbar spondylosis Migraine Morbid obesity Obesity Palpitations Patella-femoral syndrome Patellofemoral arthritis Sacroiliitis Scoliosis of thoracolumbar spine Sinus tachycardia Spondylosis of lumbar region without myelopathy or radiculopathy Spondylosis of lumbar region without myelopathy or radiculopathy Tubular adenoma Vitamin D deficiency Surgical History H/O esophagogastroduodenoscopy History of arthroscopy of right knee History of bilateral carpal tunnel release History of bladder surgery History of colonoscopy History of tubal ligation Hx of tonsillectomy Family History Family History Father Stomach cancer Mother Heart disease HTN (hypertension) Diabetes Son No problems noted. Paternal Aunt Stomach cancer Sister Stomach cancer Sister Uterine cancer Social History Social History Household Members: Children Alcohol intake: current Alcohol intake frequency: does not drink Second Hand Smoke Exposure: No Advance Directives: Yes Advance Directives Information Provided: Yes Advance Directives on File: No Patient : No Sexual orientation: Straight/Heterosexual Gender identity: female Physical Exam Vital Signs: Vital Signs: Last Vital Signs Temp 98.7 F 08/10/20 11:38 Pulse 89 08/10/20 11:38 Resp 18 08/10/20 11:38 BP 118/65 08/10/20 11:38 Pulse Ox 95 08/10/20 11:38 Body Mass Index 42.9 Const: General: cooperative, healthy appearing, comfortable and no acute distress Orientation/consciousness: patient oriented x3 Limitations: no limitations HENMT: Head: Yes normal to inspection Ears: hearing grossly normal bilaterally General nose exam: Normal external nose present Face and sinus: Yes normal facial exam Mouth: Normal oral and palatal mucosa present Throat: Yes posterior oropharynx normal Eyes: General: appearance normal, both eyes and all related structures Pupils: Equal, round and reactive pupils present Neck: Neck: Yes normal visual inspection Chest: Chest palpation & inspection: normal inspection of the chest Resp: Effort & Inspection: normal respiratory effort Auscultation: clear to auscultation bilaterally Cardio: Rate: regular rate Rhythm: regular rhythm Peripheral pulses: Peripheral pulses 2+ throughout GI: Inspection: Yes normal to inspection Palpation (GI): Soft to palpation and nontender Auscultation: normal bowel sounds Back/Spine/Pelvis: Thoracic/Lumbar Spine: thoracic and lumbar spine normal to inspection Skin: General skin exam: no rashes or lesions noted Neuro: General: patient oriented x3, no focal motor deficits and normal sensation to monofilament Cranial nerves: Yes Equal, round and reactive pupils present Cognition (Neuro): normal cognition Speech: No Abnormal speech present Gait exam (Neuro): Normal gait present Motor exam (neuro): 5/5 motor strength present throughout Extrem: Other: To the base of the left 5th digit of the foot there is some ecchymosis and swelling with pain with flexion of the toe. There is no obvious deformity. Neurovascularly intact distally. No additional foot or ankle pain General: Yes normal to inspection Course Course Course Narrative: Bruising and swelling to the left 5th digit of the foot after an injury last evening. Will check x-rays to rule out fracture. -1300-x-ray shows no bony abnormality. Likely contusion. Will be placed in a postop shoe and crutches for comfort. Reviewed worrisome signs and symptoms of when to return to the emergency department. Comfortable discharge home. Procedures Procedure Narrative Procedure Narrative: Postop shoe, crutches MDM - Fall Medical Records Attestation: I reviewed the patient's medical records. Lab Data Attestation: I reviewed the patient's lab results. Imaging Data foot xray left: Attestation: I personally reviewed and interpreted this imaging study as follows: Radiologist's impression: [address] [id number] ReportSigned Patient: Kelsea Valdez#: [id number]: 1965Acct:[id number]/Sex: 55 / FADM Date: 08/10/20Loc: EDAttending Dr: Ordering Physician: Generic ED Physician Date of Service: 08/10/20 Procedure(s): XR toe LT min 2V Accession Number(s): [id number] cc: Generic ED Physician~ EXAMINATION: XR TOES, LEFT CLINICAL INFORMATION: Fifth digit pain. COMPARISON: None TECHNIQUE: 3 views of the left toes were obtained. FINDINGS: There are no fractures or dislocations. No joint effusion is identified. No bone, joint or soft tissue abnormality is demonstrated. XR/XR toe LT min 2V IMPRESSION: Unremarkable left toe exam Discharge Plan Discharge Clinical Impression: Contusion of toe of left foot Qualifiers: Encounter type: initial encounter Toe: lesser toe Damage to nail status: without damage Qualified Code(s): S90.122A - Contusion of left lesser toe(s) without damage to nail, initial encounter Patient Disposition: Home, Self-Care Instructions: Foot Contusion (ED) Additional Instructions: Elevate the foot, ice to the area Use the shoe and crutches for weight-bearing until able to bear weight without having pain Follow-up with her primary care doctor in 5-7 days for persistent pain Prescriptions: No Action propranolol 80 mg tablet 80 mg PO BID 90 Days Qty: 180 RF: 3 (DME) FreeStyle Lite Strips Strip See Rx Instructions .MEDSUPPLY Qty: 150 RF: 6 (DME) lancets [TRUEplus Lancets] 33 gauge misc See Rx Instructions .ROUTE .MEDSUPPLY Qty: 120 RF: 6 metoclopramide HCl 5 mg tablet 5 mg PO BEDTIME Qty: 30 RF: 2 cyclobenzaprine 10 mg tablet 10 mg PO TID PRN (Reason: muscle spasm) Qty: 14 RF: 0 lidocaine 4 % adhesive patch,medicated 1 patch topical DAILY PRN (Reason: pain) Qty: 10 RF: 0 gabapentin 400 mg capsule 400 mg PO TID Qty: 270 RF: 1 Humulin R U-500 (Conc) Kwikpen 500 unit/mL (3 mL) insulin pen See Rx Instructions subcut .Twice a day 30 Days Qty: 18 RF: 6 (DME) pen needle, diabetic [BD Usha 2nd Gen Pen Needle] 32 gauge x 5/32 needle See Rx Instructions .MEDSUPPLY Qty: 100 RF: 4 metformin 500 mg tablet 500 mg PO BID 90 Days Qty: 180 RF: 1 Januvia 100 mg tablet 100 mg PO DAILY 30 Days Qty: 30 RF: 6 tizanidine 4 mg tablet 4 mg PO BID PRN (Reason: muscle spasticity) 30 Days Qty: 60 RF: 12 clonidine HCl 0.1 mg tablet 0.1 mg PO BEDTIME RF: 0 rosuvastatin [Crestor] 20 mg tablet 20 mg PO DAILY RF: 0 ibuprofen 600 mg tablet 600 mg PO Q8H PRN (Reason: Pain) RF: 0 benztropine 0.5 mg tablet 0.5 mg PO DAILY RF: 0 thiamine HCl (vitamin B1) 100 mg tablet 100 mg PO DAILY RF: 0 vitamin A palmitate 15,000 unit tablet 15,000 unit PO DAILY RF: 0 omeprazole 20 mg capsule,delayed release(DR/EC) 20 mg PO DAILY RF: 0 levothyroxine 112 mcg tablet 112 mcg PO DAILY RF: 0 ferrous sulfate 325 mg (65 mg iron) tablet 325 mg PO DAILY RF: 0 clonazepam 1 mg tablet 1 mg PO DAILY RF: 0 aspirin 325 mg tablet 81 mg PO DAILY RF: 0 cyanocobalamin (vitamin B-12) 1,000 mcg lozenge 1,000 mcg sublingual DAILY RF: 0 valsartan 160 mg tablet 320 mg PO DAILY RF: 0 aripiprazole 10 mg tablet 10 mg PO BEDTIME RF: 0 Referrals: Jaida Martin DO [Primary Care Provider] - 2 days Interventions: ED Discharge Assessment Last Done: 08/10/20 13:11 Discharge Date/Time: 08/10/20 13:12 Print Language: Irish
== END 2020-08-10 13:12 | disposition home or self-care (01) ==
PROVIDERS: Emergency Provider Emergency Medicine; PCP Family Medicine
DX: S90.122A Contusion of left lesser toe(s) without damage to nail, initial encounter (principal); I10 Essential (primary) hypertension; E11.9 Type 2 diabetes mellitus without complications; Z79.4 Long term (current) use of insulin; W01.0XXA Fall on same level from slipping, tripping and stumbling without subsequent striking against object, initial encounter; Y93.9 Activity, unspecified; Y92.9 Unspecified place or not applicable; Y99.9 Unspecified external cause status
CPT/HCPCS: 73660; 99283

== ENCOUNTER → 2020-08-20 11:45 | Outpatient (BNVA) | payer MEDICAID, SELFPAY | PROVIDERS: PCP Family Medicine; Visit Provider Physician Assistant ==

== ENCOUNTER → 2020-08-22 11:42 | Outpatient (BNVA) | payer MEDICAID, SELFPAY | PROVIDERS: PCP Family Medicine; Visit Provider Dietitian, Registered | DX: E11.21 Type 2 diabetes mellitus with diabetic nephropathy (principal) | CPT/HCPCS: 97803 ==

== ENCOUNTER 2020-08-27 10:00 | Outpatient (RCR) | payer MEDICAID, SELFPAY ==
--- NOTE | 2020-07-24 10:58 | MHC.PT.EP ---
[facility] [place] Office [place] Office [place] Office [address] Uriel Oro [address] [phone] F: [phone] F: [phone] F: [phone] F: [phone] Physical Therapy Plan of Care Date of Evaluation: Date of Surgery: N/A Diagnosis: M47.816 spondylosis without myelopathy or radiculopathy, lumbar region M41.9 scoliosis unspecified Assessment: pt's signs and symptoms consistent w/ chronic scoliosis and muscle imbalance causing poor SI alignment. pt presents to physical therapy with pain, decreased range of motion, decreased strength, impaired functional mobility, impaired postural awareness, and gait deviations. pt is a good candidate for skilled PT due to age, potential remediation of impairments, typical disease/condition progression and prognosis, comorbidities, and motivation. pt would benefit from tailored strengthening and stretching exercise program, functional training, gait training, postural re-training, neuromuscular re-education, modalities as needed for pain, equipment safety demonstration. Frequency and Duration: The patient will be seen 2x/wk for 4 wks Short Term Goals: pt will be I w/ HEP to promote self-management of condition. pt will demo proper sitting posture w/ lumbar roll to promote neutral spine 100% of the time. Shiftman Goals: pt will report <1/10 low back pain w/ ambulation >2500' to promote pain-free return to community ambulation. pt will ascend/descend 10 stairs using LRAD to promote access to second floor of home. Treatment Plan: Modalities to reduce pain, spasms and effusion. Manual therapy to restore motion and function. Therapeutic exercise to improve strength and flexibility. Neuromuscular re-education for posture and balance. Therapeutic activities to return to functional activities of daily living. Electronically signed by: Nidia Serrano PT, DPT Please sign and return to therapist. Thank you for your referral.
--- NOTE | 2020-09-12 16:26 | MHC.PT.DC ---
[facility] [place] Office [place] Office [place] Office [address] Uriel Oro [address] [phone] F: [phone] F: [phone] F: [phone] F: [phone] Physical Therapy Discharge Report Diagnosis: M47.816 spondylosis without myelopathy or radiculopathy, lumbar region M41.9 scoliosis unspecified Date of Surgery: N/A Date of Evaluation: 07/24/20 Date of Discharge: 09/12/20 Treatments to Date: 6 Cancellations to Date: 1 No Shows to Date: 3 Discharge Status: Visit Non-compliance Discharge Summary: Per [facility] [place] the patient is to be discharged for visit non-compliance. She consistently reported an improvement in her back pain at the end of her physical therapy sessions and was advised to continue with her home program. Electronically signed by: Nidia Serrano PT, DPT Please sign and return to therapist. Thank you for your referral.
== END 2020-09-12 16:34 | disposition home or self-care (01) ==
LOC: HO.PT 10:00
PROVIDERS: Visit Provider Anesthesiology
DX: M47.816 Spondylosis without myelopathy or radiculopathy, lumbar region (principal); M41.9 Scoliosis, unspecified
CPT/HCPCS: 97110; 97112; 97161; 97530

== ENCOUNTER → 2020-09-07 11:05 | Outpatient (BNVA) | payer MEDICAID, SELFPAY | PROVIDERS: PCP Family Medicine; Visit Provider Physician Assistant | DX: M25.561 Pain in right knee (principal) | CPT/HCPCS: 20610; J7318 ==

== ENCOUNTER 2020-09-10 08:27 | Outpatient (REF) | payer MEDICAID, SELFPAY ==
--- NOTE | ~2020-09-10 | CT_ITS ---
EXAMINATION: CT HEAD WITHOUT CONTRAST CLINICAL INFORMATION: Dizziness and giddiness COMPARISON: Previous head CT September 2016 TECHNIQUE: Contiguous axial imaging was performed from the skull base to vertex without intravenous administration of contrast. This CT examination was performed using dose optimization techniques as appropriate, variously including the following: *Automated exposure control *Adjustment of mA and/or kV according to patient size (this includes techniques or standardized protocols for targeted exams where dose is matched to indication/reason for exam; i.e. extremities or head) *Use of iterative reconstruction technique DLP: 878 mGy-cm FINDINGS: There is no evidence of acute intracranial hemorrhage or territorial infarction. No abnormal mass effect or midline shift is seen. Fernandez to white matter differentiation is well preserved. No extra-axial fluid collections are identified. The ventricles are normal in size. There is no abnormal attenuation within the brain parenchyma. The osseous structures and soft tissues are normal. There are polyps or cysts in the left maxillary sinus. Paranasal sinuses, mastoid air cells and middle ears are otherwise clear. CT/CT head/brain wo con IMPRESSION: No acute intracranial findings. Polyps or cysts in the left maxillary sinus.
== END 2020-09-10 08:28 | disposition home or self-care (01) ==
LOC: HO.CT 08:27
PROVIDERS: Visit Provider Family Medicine
DX: R42 Dizziness and giddiness (principal)
CPT/HCPCS: 70450

== ENCOUNTER → 2020-09-12 09:30 | Outpatient (REF) | payer MEDICAID, SELFPAY ==
--- NOTE | 2020-09-12 09:30 | CA_ITS ---
Transthoracic Echocardiogram Patient (Last, First, Middle): Candace Valdez, Gender: Female Date of : 1965 Age: 55 Procedure Date: 09/12/2020 Procedure Type: Transthoracic Echocardiogram Location: OP Height: 162.56 cm Weight: 113.4 kg BSA: 2.15 m2 Heart Rate: bpm BP: 130 / 80 mmHg Immigration Manager: HALLEY Corona MD: Jaida Martin DO Appetizer Packer: Jonas Aviles MD Symptoms: R42 DIZZINESS GIDDINESS Study Quality: Fair/Contrast ECG Rhythm: Sinus Conclusions: - 1. Normal LV systolic and diastolic function 2. [id number] mitral regurgitation 3. Normal RV systolic pressure 4. No gross pericardial effusion Findings Left Ventricle Normal left ventricular size, thickness, and systolic function. The visually estimated ejection fraction is between 60-65%. Diastolic function is normal for age. Right Ventricle The right ventricle was not well visualized. Atria The left atrium is likely dilated. Interatrial shunt cannot be excluded. The right atrium is normal in size. Aortic Valve The aortic valve was not well visualized. There is no aortic valve stenosis. There is no aortic valve regurgitation. Mitral Valve The mitral valve was not well visualized. There is mild to moderate mitral valve regurgitation. There is no mitral valve stenosis. Pulmonic Valve The pulmonic valve was not well visualized. Tricuspid Valve Likely normal tricuspid valve structure and function. There is trace tricuspid valve regurgitation. The right ventricular systolic pressure is normal. The right ventricular systolic pressure is 34 mmHg. Normal right atrial pressure. There is no evidence of pulmonary hypertension. Great Vessels All visible segments of the aorta are normal in size. The pulmonary artery was not well visualized. Venous The inferior vena cava is normal in size and collapses greater than 50% with inspiration. Pericardium/Pleural There is no evidence of pericardial effusion. Prior Study Comparison No prior study available for comparison. Measurements 2D Linear Measurements IVSd: 1.10 0.6-0.9/0.6-1.0 cm LVIDd: 4.80 3.9-5.3/4.2-5.9 cm LVIDs: 2.99 2.0-3.6 cm LVPWd: 1.12 0.7-1.1 cm Ao Root: 2.92 2.1-3.5 cm LV Mass: 245.00 67-162/88-224 g LVOT Diam: 2.17 3.0+(-)1.3 cm Mitral Valve MV Pk E: 1.00 MV PK A: 0.88 MV Decel Time: 232.34 E/A: 1.13 E'Lateral: 0.09 E'Medial: 0.07 Decel Duplin: 4.31 Aortic Valve AoV Pk Ashok: 1.72 AoV Mn Ashok: 1.27 AoV VTI: 0.32 AoV Pk Grad: 11.86 Aov Mn Grad: 6.81 LVOT LVOT Pk Ashok: 1.18 LVOT Mn Ashok: 0.86 LVOT VTI: 0.23 LVOT Pk Grad: 5.57 LVOT Mn Grad: 3.30 LVOT Diam: 2.17 LVOT Area: 3.69 Diastolic Function MV Pk E: 1.00 MV Pk A: 0.88 E/A: 1.13 E'Medial: 0.07 E' Laterial: 0.09 Right Ventricle TAPSE (mm): 1.80 Tricuspid Valve TR Pk Ashok: 2.77 TR Pk Grad: 30.76 RA Press: 3.00 RVSP: 34.00 Great Vessels Aorta Ao Root-2D: 2.92 2.0-3.7 cm Ao Asc: 3.18 2.1-3.4 cm Ao Arch: 2.47 Updated in Other Vendor System with Status of Final Jonas Aviles MD electronically signed on 09/12/2020 3:59:24 PM with status of Final
== END ==
LOC: HO.CARD 09:30
PROVIDERS: Visit Provider Family Medicine
DX: R42 Dizziness and giddiness (principal); J45.909 Unspecified asthma, uncomplicated; M47.816 Spondylosis without myelopathy or radiculopathy, lumbar region; M41.9 Scoliosis, unspecified; E66.01 Morbid (severe) obesity due to excess calories; Z68.41 Body mass index [BMI] 40.0-44.9, adult
CPT/HCPCS: 93306; 99212; Q9957

== ENCOUNTER 2020-10-25 08:29 | Outpatient (REF) | payer MEDICAID, SELFPAY ==
--- NOTE | ~2020-10-25 | XR_ITS ---
EXAMINATION: XR CHEST CLINICAL INFORMATION: Shortness of breath. COMPARISON: 04/24/2020 TECHNIQUE: 2 views of the chest were obtained. FINDINGS: There is no evidence of acute parenchymal disease, pneumothorax, or pleural effusion. Heart normal size. No evidence of pulmonary edema. Linear scar is seen within the lingula and right middle lobe. XR/XR chest 2V IMPRESSION: No acute parenchymal disease.
== END 2020-10-25 08:30 | disposition home or self-care (01) ==
LOC: HO.XRAY 08:29
PROVIDERS: PCP Family Medicine; Visit Provider Nurse Practitioner Primary Care
DX: R06.02 Shortness of breath (principal); E11.21 Type 2 diabetes mellitus with diabetic nephropathy
CPT/HCPCS: 71046; 97803

== ENCOUNTER 2020-11-06 06:38 | Outpatient (REF) | payer MEDICAID, SELFPAY ==
--- NOTE | ~2020-11-06 | FL_ITS ---
EXAMINATION: XR FLUOROSCOPY WITH IMAGES CLINICAL INFORMATION: Spondylosis without myelopathy or radiculopathy. COMPARISON: None. TECHNIQUE: Fluoroscopy performed by Sully Grant. Fluoroscopy time: 0.7 minutes DAP: 14.8 Gycm2 Images: 6 FINDINGS: There are 6 images obtained under fluoroscopy and reveals needle positioned adjacent to the bilateral L5, L4 and L3 pedicles with contrast opacifying the adjacent soft tissues. Visualized vertebral heights and alignment is normal. Mild loss of L4-L5 and L5-S1 disc heights is noted. FL/FL guidance in treatment room IMPRESSION: Fluoroscopy was provided to referring physician for pain management.
== END 2020-11-06 06:39 | disposition home or self-care (01) ==
LOC: HO.RADIR 06:38
PROVIDERS: Visit Provider Anesthesiology
DX: M47.816 Spondylosis without myelopathy or radiculopathy, lumbar region (principal); M41.9 Scoliosis, unspecified; E66.01 Morbid (severe) obesity due to excess calories
CPT/HCPCS: 64493; 64494; J3300; Q9967

== ENCOUNTER → 2020-11-23 11:44 | Outpatient (BNVA) | payer MEDICAID, SELFPAY | PROVIDERS: PCP Family Medicine; Visit Provider Dietitian, Registered | DX: E11.21 Type 2 diabetes mellitus with diabetic nephropathy (principal) | CPT/HCPCS: 97803 ==

== ENCOUNTER → 2020-12-12 13:58 | Outpatient (BNVA) | payer MEDICAID, SELFPAY | PROVIDERS: PCP Family Medicine; Visit Provider Anesthesiology ==

== ENCOUNTER → 2021-01-01 10:46 | Outpatient (BNVA) | payer MEDICAID, SELFPAY | PROVIDERS: PCP Family Medicine; Visit Provider Nurse Practitioner Gerontology | DX: E11.649 Type 2 diabetes mellitus with hypoglycemia without coma (principal); E11.21 Type 2 diabetes mellitus with diabetic nephropathy; E78.5 Hyperlipidemia, unspecified; I10 Essential (primary) hypertension; E66.01 Morbid (severe) obesity due to excess calories; K31.84 Gastroparesis; Z79.4 Long term (current) use of insulin; Z68.42 Body mass index [BMI] 45.0-49.9, adult | CPT/HCPCS: 82947; 83036; 99212 ==

== ENCOUNTER 2021-01-08 09:37 | Outpatient (REF) | payer MEDICAID, SELFPAY ==
--- NOTE | ~2021-01-08 | US_ITS ---
EXAMINATION: US ABDOMEN COMPLETE CLINICAL INFORMATION: Fatty liver. COMPARISON: Ultrasound abdomen 01/28/2018. CT abdomen and pelvis 11/04/2019. TECHNIQUE: Real-time imaging of the abdominal viscera. FINDINGS: PANCREAS: The head and body the pancreas are normal. The tail the pancreas is not well visualized due to bowel gas. ABDOMINAL AORTA: Not well visualized due to bowel gas INFERIOR VENA CAVA: Visualized portions are normal. LIVER: The liver is enlarged. The right lobe measures 25 cm in length. Liver echotexture is increased probably representing fatty infiltration. There is a hypoechoic area adjacent to the gallbladder, a characteristic location of focal fatty sparing. No other focal liver lesion is seen. There is no biliary duct dilatation. GALLBLADDER: Normal. The gallbladder is physiologically distended without evidence of stones, sludge, polyps, wall thickening or pericholecystic fluid. COMMON BILE DUCT: Normal in caliber measuring 0.5 cm in diameter. RIGHT KIDNEY: Normal. No hydronephrosis. No renal calculi or focal parenchymal lesions. The kidney measures 12.2 cm in maximum dimension. LEFT KIDNEY: Normal. No hydronephrosis. No renal calculi or focal parenchymal lesions. The kidney measures 12.6 cm in maximum dimension. SPLEEN: Normal. The spleen measures 11.2 cm in maximum dimension. FREE FLUID: None. US/US abdomen complete IMPRESSION: Enlarged echogenic liver consistent with fatty infiltration. Limited visualization of the aorta and pancreas.
== END 2021-01-08 09:38 | disposition home or self-care (01) ==
LOC: HO.US 09:37
PROVIDERS: Visit Provider Family Medicine
DX: K76.0 Fatty (change of) liver, not elsewhere classified (principal)
CPT/HCPCS: 76700

== ENCOUNTER → 2021-03-05 11:47 | Outpatient (BNVA) | payer MEDICAID, SELFPAY | PROVIDERS: PCP Family Medicine; Visit Provider Dietitian, Registered | DX: E11.21 Type 2 diabetes mellitus with diabetic nephropathy (principal) | CPT/HCPCS: 97803 ==

== ENCOUNTER 2021-03-20 09:29 | Outpatient (REF) | payer MEDICAID, SELFPAY ==
--- NOTE | ~2021-03-20 | XR_ITS ---
EXAMINATION: XR CHEST CLINICAL INFORMATION: Shortness of breath COMPARISON: Previous chest x-ray most recent September 2020 TECHNIQUE: 2 views of the chest were obtained. FINDINGS: The cardiac and mediastinal contours are stable. There is subsegmental atelectasis at the lung bases. This is similar to previous exam. The lungs are otherwise clear. There is no pleural effusion or pneumothorax. There are degenerative changes of the spine. XR/XR chest 2V IMPRESSION: No evidence for acute disease in the chest. Linear scarring or subsegmental atelectasis at the lung bases similar to previous exam.
[2021-03-20 11:05] LABS: Hematocrit 36.3 % (37.0-47.0); Hemoglobin 10.7 g/dl (12.0-16.0); Mean Corpuscular HGB Conc 29.5 g/dl (31.0-35.0); Mean Corpuscular Hemoglobin 25.7 pg (27.0-33.0); Mean Corpuscular Volume 87.1 fL (80.0-98.0); Mean Platelet Volume 10.3 fL (9.4-12.3); Platelet Count 331 X10*3/uL (160-400); Red Blood Count 4.17 X10*6/uL (4.20-5.50); Red Cell Distribution Width 15.6 % (11.0-16.0); White Blood Count 10.3 X10*3/uL (4.8-10.8)
[2021-03-20 11:36] LABS: B Type Natriuretic Peptide 52 pg/mL (<100)
[2021-03-20 11:42] LABS: Alanine Aminotransferase 22 U/L (0-31); Albumin Level 3.8 g/dL (3.5-5.0); Alkaline Phosphatase 113 U/L (39-117); Anion Gap 15 (12-20); Aspartate Amino Transferase 42 U/L (5-31); Bilirubin Total 0.3 mg/dL (0.0-1.0); Blood Urea Nitrogen 13 mg/dL (9-16); Calcium 9.2 mg/dL (8.4-10.2); Carbon Dioxide 27 mmol/L (22-29); Chloride 101 mmol/L (96-108); Cholesterol 100 mg/dL; Estimated Glomerular Filt Rate > 60; Glucose Fasting 258 mg/dL (60-99); HDL Cholesterol 37 mg/dL; LDL Cholesterol Calculated 39 mg/dl; Potassium 3.9 mmol/L (3.3-5.1); Sodium 139 mmol/L (135-145); Total Protein 7.9 g/dL (6.5-8.0); Triglycerides 122 mg/dL
[2021-03-20 11:47] LABS: Thyroid Stimulating Hormone 3.71 uIU/mL (0.32-4.0)
[2021-03-20 11:48] LABS: Creatinine Urine 101.59 mg/dL; Microalbum/Creatinine Ratio Ur 46.2 ug/mg cr
[2021-03-20 12:08] LABS: Vitamin B12 398 pg/mL (200-900)
[2021-03-22 02:02] LABS: LDL Cholesterol Direct 47 mg/dL (<100)
== END 2021-03-20 09:30 | disposition home or self-care (01) ==
LOC: HO.LAB 09:29
PROVIDERS: Absent Provider Nurse Practitioner Gerontology; PCP Family Medicine; Referring Provider Family Medicine; Visit Provider Internal Medicine Cardiovascular Disease
DX: R06.02 Shortness of breath (principal); R00.0 Tachycardia, unspecified; E11.649 Type 2 diabetes mellitus with hypoglycemia without coma
CPT/HCPCS: 36415; 71046; 80053; 80061; 82043; 82607; 83721; 83880; 84443; 85027; 93005; 99212

== ENCOUNTER → 2021-04-10 10:54 | Outpatient (BNVA) | payer MEDICAID, SELFPAY | PROVIDERS: PCP Family Medicine; Visit Provider Physician Assistant | DX: M17.12 Unilateral primary osteoarthritis, left knee (principal) | CPT/HCPCS: 20610; 99212; J1020 ==

== ENCOUNTER → 2021-04-19 09:14 | Outpatient (BNVA) | payer MEDICAID, SELFPAY | PROVIDERS: PCP Family Medicine; Visit Provider Nurse Practitioner Gerontology | DX: E11.649 Type 2 diabetes mellitus with hypoglycemia without coma (principal); E11.21 Type 2 diabetes mellitus with diabetic nephropathy; K31.84 Gastroparesis; E78.5 Hyperlipidemia, unspecified; E66.01 Morbid (severe) obesity due to excess calories; I10 Essential (primary) hypertension; Z79.4 Long term (current) use of insulin; Z68.41 Body mass index [BMI] 40.0-44.9, adult | CPT/HCPCS: 82947; 83036; 99212 ==

== ENCOUNTER → 2021-04-23 13:00 | Outpatient (BNVA) | payer MEDICAID, SELFPAY | PROVIDERS: PCP Family Medicine; Visit Provider Physician Assistant | DX: M17.12 Unilateral primary osteoarthritis, left knee (principal) | CPT/HCPCS: 20610; J7318 ==

== ENCOUNTER 2021-04-29 08:49 | Outpatient (REF) | payer MEDICAID, SELFPAY ==
[2021-04-29 09:31] LABS: MANUAL DIFF FLAG NO
[2021-04-29 10:14] LABS: Basophils Percent Auto 0.3 % (0-2); Eosinophils Absolute Auto 0.2 X10*3/uL (0.0-0.4); Eosinophils Percent Auto 1.6 % (0-4); Hematocrit 37.6 % (37.0-47.0); Imm Gran Abs Auto 0.06 X10*3/uL (0.00-0.03); Imm Gran Pct Auto 0.5 % (0.0-0.4); Lymphocytes Absolute Auto 3.1 X10*3/uL (1.2-4.9); Lymphocytes Percent Auto 26.6 % (20-40); Mean Corpuscular HGB Conc 29.3 g/dl (31.0-35.0); Mean Corpuscular Hemoglobin 25.5 pg (27.0-33.0); Mean Corpuscular Volume 87.2 fL (80.0-98.0); Mean Platelet Volume 10.2 fL (9.4-12.3); Monocytes Absolute Auto 0.6 X10*3/uL (0.1-1.2); Monocytes Percent Auto 4.9 % (2-11); Neutrophils Absolute Auto 7.7 x10*3/uL (2.0-8.3); Neutrophils Percent Auto 66.1 % (45-73); Platelet Count 331 X10*3/uL (160-400); Red Blood Count 4.31 X10*6/uL (4.20-5.50); Red Cell Distribution Width 15.8 % (11.0-16.0); White Blood Count 11.6 X10*3/uL (4.8-10.8)
[2021-04-29 10:46] LABS: Alanine Aminotransferase 29 U/L (0-31); Albumin Level 3.9 g/dL (3.5-5.0); Alkaline Phosphatase 126 U/L (39-117); Anion Gap 16 (12-20); Aspartate Amino Transferase 29 U/L (5-31); Bilirubin Total 0.3 mg/dL (0.0-1.0); Blood Urea Nitrogen 10 mg/dL (9-16); Calcium 9.2 mg/dL (8.4-10.2); Carbon Dioxide 29 mmol/L (22-29); Chloride 102 mmol/L (96-108); Cholesterol 116 mg/dL; Estimated Glomerular Filt Rate > 60; Glucose Fasting 226 mg/dL (60-99); HDL Cholesterol 43 mg/dL; LDL Cholesterol Calculated 52 mg/dl; Potassium 3.8 mmol/L (3.3-5.1); Sodium 143 mmol/L (135-145); Total Protein 7.9 g/dL (6.5-8.0); Triglycerides 108 mg/dL
[2021-04-29 10:58] LABS: Thyroid Stimulating Hormone 2.84 uIU/mL (0.32-4.0); Vitamin D 25-OH Total 40.4 ng/mL (>30)
[2021-05-03 05:31] LABS: Nortriptyline 219 mcg/L (50-150)
== END 2021-04-29 08:50 | disposition home or self-care (01) ==
LOC: HO.LAB 08:49
PROVIDERS: Absent Provider Psychiatry & Neurology Psychiatry; PCP Family Medicine; Visit Provider Internal Medicine Cardiovascular Disease
DX: Z79.899 Other long term (current) drug therapy (principal)
CPT/HCPCS: 36415; 80053; 80061; 80335; 82306; 84443; 85025

== ENCOUNTER → 2021-05-07 12:28 | Outpatient (BNVA) | payer MEDICAID, SELFPAY | PROVIDERS: PCP Family Medicine; Visit Provider Nurse Practitioner Family | DX: M79.7 Fibromyalgia (principal) | CPT/HCPCS: 99212 ==

== ENCOUNTER → 2021-05-08 13:14 | Outpatient (REF) | payer MEDICAID, SELFPAY ==
--- NOTE | 2021-05-08 13:18 | CA_ITS ---
Transthoracic Echocardiogram Patient (Last, First, Middle): Candace Valdez, Gender: Female Date of : 1965 Age: 55 Procedure Date: 05/08/2021 Procedure Type: Transthoracic Echocardiogram Location: OP Height: 162.56 cm Weight: 121.56 kg BSA: 2.22 m2 Heart Rate: bpm BP: 128 / 80 mmHg Photographic Machine Operator: Referring MD: Jaida Martin DO Certified Legal Secretary Specialist: Jonas Aviles MD Symptoms: R06.00 DYSPNEA Study Quality: Fair ECG Rhythm: Sinus Conclusions: - 1. Normal LV systolic function with grade I diastolic dysfunction 2. Mild mitral regurgitation 3. Normal RVSP 4. No pericardial effusion Findings Left Ventricle Normal left ventricular size and systolic function. There is mildly increased left ventricular wall thickness. The visually estimated ejection fraction is between 60-65%. Spectral Doppler is indicative of an impaired relaxation filling pattern. E/E prime ratio is <8, consistent with normal filling pressures. Right Ventricle Normal right ventricular cavity size and systolic function. Atria The left atrium is normal in size. There is lipomatous hypertrophy of the interatrial septum. There is no evidence of interatrial shunt. The right atrium is normal in size. Aortic Valve The aortic valve structure and function is likely normal. There is no aortic valve stenosis. There is no aortic valve regurgitation. Mitral Valve There is mild anterior and posterior mitral leaflet thickening. There is mild mitral valve regurgitation. There is no mitral valve stenosis. Pulmonic Valve The pulmonic valve is likely normal. There is trace pulmonic valve regurgitation. Tricuspid Valve Normal tricuspid valve structure. There is mild tricuspid valve regurgitation. The right ventricular systolic pressure is normal. The right ventricular systolic pressure is 24 mmHg. Normal right atrial pressure. There is no evidence of pulmonary hypertension. Great Vessels All visible segments of the aorta are normal in size. The pulmonary artery was not well visualized. Venous The inferior vena cava is normal in size. Inferior vena cava flow is normal. Pericardium/Pleural There is no evidence of pericardial effusion. Prior Study Comparison No significant change compared to prior study dated: 09/12/2020. Measurements 2D Linear Measurements IVSd: 1.24 0.6-0.9/0.6-1.0 cm LVIDd: 4.76 3.9-5.3/4.2-5.9 cm LVIDd Index: 2.14 2.4-3.2/2.2-3.1 cm/m2 LVIDs: 2.77 2.0-3.6 cm LVPWd: 1.29 0.7-1.1 cm LA Diam: 4.10 2.7-3.8/3.0-4.0 cm LAIDs Index: 1.85 1.5-2.3 cm/m2 LV Mass: 290.75 67-162/88-224 g LV Mass Index: 130.97 43-95/49-115 g/m2 LVOT Diam: 2.10 3.0+(-)1.3 cm Mitral Valve MV Pk E: 0.69 MV PK A: 0.94 MV Decel Time: 207.00 E/A: 0.70 E'Lateral: 12.50 E'Medial: 10.70 E/E' Med: 6.50 E/E' Lat: 5.60 PHT: 61.00 MVA PHT: 3.61 Decel Mcnairy: 3.35 Aortic Valve AoV Pk Ashok: 1.77 AoV Mn Ashok: 1.19 AoV VTI: 0.30 AoV Pk Grad: 13.00 Aov Mn Grad: 7.00 MANUEL Cont.VTI: 2.66 LVOT LVOT Pk Ashok: 1.30 LVOT Mn Ashok: 0.87 LVOT VTI: 0.23 LVOT Pk Grad: 7.00 LVOT Mn Grad: 4.00 LVOT Diam: 2.10 LVOT Area: 3.46 Diastolic Function MV Pk E: 0.69 MV Pk A: 0.94 E/A: 0.70 E'Medial: 10.70 E/E' Med: 6.50 E' Laterial: 12.50 E/E' Lat: 5.60 Right Ventricle TAPSE (mm): 21.00 TVS' Ashok: 13.00 Tricuspid Valve TR Pk Ashok: 2.29 TR Pk Grad: 21.00 RA Press: 3.00 RVSP: 24.00 Great Vessels Aorta Ao Asc: 3.20 2.1-3.4 cm Pulmonary Valve PV Pk Ashok: 1.21 Peak PV Grad: 6.00 Updated in Other Vendor System with Status of Final Jonas Aviles MD electronically signed on 05/08/2021 10:07:43 PM with status of Final
== END ==
LOC: HO.CARD 13:14
PROVIDERS: PCP Family Medicine; Visit Provider Family Medicine
DX: R06.00 Dyspnea, unspecified (principal)
CPT/HCPCS: 93306

== ENCOUNTER → 2021-05-20 10:34 | Outpatient (BNVA) | payer MEDICAID, SELFPAY | PROVIDERS: PCP Family Medicine; Visit Provider Nurse Practitioner Family | DX: M54.50 Low back pain, unspecified (principal); M47.816 Spondylosis without myelopathy or radiculopathy, lumbar region; M53.3 Sacrococcygeal disorders, not elsewhere classified; M22.2X2 Patellofemoral disorders, left knee; M41.35 Thoracogenic scoliosis, thoracolumbar region; G89.4 Chronic pain syndrome; M79.7 Fibromyalgia; E66.01 Morbid (severe) obesity due to excess calories; Z68.42 Body mass index [BMI] 45.0-49.9, adult; Z96.651 Presence of right artificial knee joint | CPT/HCPCS: 99212 ==

== ENCOUNTER → 2021-05-24 08:18 | Outpatient (BNVA) | payer MEDICAID, SELFPAY | PROVIDERS: PCP Family Medicine; Visit Provider Surgery | DX: E66.01 Morbid (severe) obesity due to excess calories (principal); Z79.899 Other long term (current) drug therapy; Z71.3 Dietary counseling and surveillance; M47.816 Spondylosis without myelopathy or radiculopathy, lumbar region; M53.3 Sacrococcygeal disorders, not elsewhere classified; K21.9 Gastro-esophageal reflux disease without esophagitis; E11.21 Type 2 diabetes mellitus with diabetic nephropathy; K31.84 Gastroparesis; E11.65 Type 2 diabetes mellitus with hyperglycemia; E11.649 Type 2 diabetes mellitus with hypoglycemia without coma; I10 Essential (primary) hypertension; E78.5 Hyperlipidemia, unspecified; G47.33 Obstructive sleep apnea (adult) (pediatric); Z99.89 Dependence on other enabling machines and devices; E03.9 Hypothyroidism, unspecified; J45.909 Unspecified asthma, uncomplicated ==

== ENCOUNTER 2021-05-27 09:37 | Outpatient (REF) | payer MEDICAID, SELFPAY ==
--- NOTE | ~2021-05-27 | XR_ITS ---
EXAMINATION: XR CHEST CLINICAL INFORMATION: Asthma. COMPARISON: Previous chest x-ray most recent March 2021. TECHNIQUE: 2 views of the chest were obtained. FINDINGS: The cardiac and mediastinal contours are stable. There is question of prominence of the pulmonary beulah seen on the lateral view. This is not appreciated on the PA view. There is linear scarring or chronic subsegmental atelectasis at the lung bases. The lungs are otherwise clear. There is no pleural effusion or pneumothorax. There are degenerative changes of the spine. XR/XR chest 2V IMPRESSION: Linear scarring or subsegmental atelectasis at the lung bases. Question prominence of the pulmonary beulah seen on the lateral view. This is not appreciated on the PA view. This could be further evaluated with chest with IV contrast if clinically indicated.
--- NOTE | 2021-05-27 09:49 | ECG_ITS ---
Test Reason : ASTHMA Blood Pressure : / mmHG Vent. Rate : 080 BPM Atrial Rate : 080 BPM P-R Int : 142 ms QRS Dur : 100 ms QT Int : 370 ms P-R-T Axes : 055 034 023 degrees QTc Int : 426 ms Normal sinus rhythm Minimal voltage criteria for LVH, may be normal variant ( Richie product ) Borderline ECG When compared with ECG of 24-APR-2019 07:45, No significant change was found Referred By: Francesco James Electronically Signed By:ANTOINE RDZ
[2021-05-27 10:14] LABS: MANUAL DIFF FLAG NO
[2021-05-27 10:48] LABS: Basophils Percent Auto 0.3 % (0-2); Eosinophils Absolute Auto 0.2 X10*3/uL (0.0-0.4); Eosinophils Percent Auto 1.8 % (0-4); Hematocrit 38.8 % (37.0-47.0); Hemoglobin 11.4 g/dl (12.0-16.0); Imm Gran Abs Auto 0.06 X10*3/uL (0.00-0.03); Imm Gran Pct Auto 0.5 % (0.0-0.4); Lymphocytes Absolute Auto 3.1 X10*3/uL (1.2-4.9); Lymphocytes Percent Auto 27.1 % (20-40); Mean Corpuscular HGB Conc 29.4 g/dl (31.0-35.0); Mean Corpuscular Volume 88.6 fL (80.0-98.0); Monocytes Absolute Auto 0.7 X10*3/uL (0.1-1.2); Neutrophils Absolute Auto 7.3 x10*3/uL (2.0-8.3); Neutrophils Percent Auto 64.3 % (45-73); Platelet Count 348 X10*3/uL (160-400); Red Blood Count 4.38 X10*6/uL (4.20-5.50); Red Cell Distribution Width 15.9 % (11.0-16.0); White Blood Count 11.4 X10*3/uL (4.8-10.8)
[2021-05-27 10:53] LABS: Estimated Average Glucose 157 mg/dL; Hemoglobin A1c % 7.1 %
[2021-05-27 11:20] LABS: Alanine Aminotransferase 25 U/L (0-31); Alkaline Phosphatase 118 U/L (39-117); Anion Gap 11 (12-20); Aspartate Amino Transferase 39 U/L (5-31); B Type Natriuretic Peptide 17 pg/mL (<100); Bilirubin Total 0.4 mg/dL (0.0-1.0); Blood Urea Nitrogen 12 mg/dL (9-16); Calcium 9.6 mg/dL (8.4-10.2); Carbon Dioxide 32 mmol/L (22-29); Chloride 103 mmol/L (96-108); Cholesterol 102 mg/dL; Estimated Glomerular Filt Rate > 60; Glucose Random 152 mg/dL (60-115); HDL Cholesterol 37 mg/dL; Iron 50 mcg/dL (30-160); LDL Cholesterol Calculated 46 mg/dl; Percent Iron Saturation 16 % (15-50); Potassium 3.9 mmol/L (3.3-5.1); Sodium 142 mmol/L (135-145); Total Iron Binding Capacity 311 mcg/dL (228-428); Total Protein 8.2 g/dL (6.5-8.0); Triglycerides 97 mg/dL; Unsaturated Iron Binding 261 ug/dL
[2021-05-27 11:47] LABS: Ferritin 225 ng/mL (10-250); Insulin 92 uU/mL (2-29); Vitamin D 25-OH Total 42.3 ng/mL (>30)
[2021-05-27 11:51] LABS: Folate 7.1 ng/mL (> or = 4.0); Vitamin B12 413 pg/mL (200-900)
[2021-05-28 14:41] LABS: Calcium (PTHI) 9.4 mg/dL (8.6-10.4); PTHI 115 pg/mL (16-77)
[2021-05-30 06:27] LABS: Zinc 70 mcg/dL (60-130)
[2021-05-31 13:40] LABS: Vitamin B1 89 nmol/L (8-30)
[2021-06-01 17:02] LABS: Vitamin A 35 mcg/dL (38-98)
== END 2021-05-27 09:38 | disposition home or self-care (01) ==
LOC: HO.LAB 09:37
PROVIDERS: Internal Medicine Cardiovascular Disease; PCP Family Medicine; Visit Provider Surgery
DX: R06.02 Shortness of breath (principal); J45.909 Unspecified asthma, uncomplicated; E03.9 Hypothyroidism, unspecified; E11.21 Type 2 diabetes mellitus with diabetic nephropathy; E66.01 Morbid (severe) obesity due to excess calories; E78.5 Hyperlipidemia, unspecified; G47.33 Obstructive sleep apnea (adult) (pediatric); I10 Essential (primary) hypertension; K21.9 Gastro-esophageal reflux disease without esophagitis; M47.816 Spondylosis without myelopathy or radiculopathy, lumbar region; M53.3 Sacrococcygeal disorders, not elsewhere classified; Z99.89 Dependence on other enabling machines and devices
CPT/HCPCS: 36415; 71046; 80053; 80061; 82306; 82607; 82728; 82746; 83036; 83525; 83540; 83880; 83970; 84425; 84443; 84590; 84630; 85025; 86140; 93005

== ENCOUNTER → 2021-05-29 09:46 | Outpatient (BNVA) | payer MEDICAID, SELFPAY | PROVIDERS: PCP Family Medicine; Referring Provider Family Medicine; Visit Provider Physician Assistant Surgical | DX: K21.9 Gastro-esophageal reflux disease without esophagitis (principal); K31.84 Gastroparesis; E11.649 Type 2 diabetes mellitus with hypoglycemia without coma; R06.02 Shortness of breath | CPT/HCPCS: 99212 ==

== ENCOUNTER 2021-06-03 10:06 | Outpatient (REF) | payer MEDICAID, SELFPAY ==
--- NOTE | ~2021-06-03 | MR_ITS ---
EXAMINATION: MR LUMBAR SPINE WITHOUT CONTRAST CLINICAL INFORMATION: Spondylosis with radiculopathy. Lumbar spine radiographs 05/03/2020. COMPARISON: Multiplanar MR imaging of the lumbar spine was performed without contrast. TECHNIQUE: MRI of the lumbar spine was obtained using routine sequences without contrast. FINDINGS: Alignment is normal. Vertebral heights are preserved. No acute bone marrow signal changes. There is disc desiccation at multiple levels without substantial loss of intervertebral disc height. The tip of the conus medullaris is located at T12-L1. No mass effect on the conus. Visualized distal cord signal intensity is normal. At L1-L2 the annular contour is normal. No canal or neuroforaminal compromise. At L2-L3 the annular contour is normal. No canal or neuroforaminal compromise. At L3-L4 there is an asymmetrically bulging disc to the left. Bilateral facet degenerative change. No canal stenosis. No mass effect on the traversing or foraminal nerve roots. At L4-L5 there is an asymmetrically bulging disc to the left. Bilateral facet degenerative change. No canal stenosis. No mass effect on the traversing or foraminal nerve roots. At L5-S1 there is a slightly bulging disc. No canal stenosis. No mass effect on the traversing or foraminal nerve roots. Limited visualization of the retroperitoneal anatomy reveals no abnormal finding. Psoas and paraspinal muscle groups are symmetric. MR/MR lumbar spine wo con IMPRESSION: There is degenerative disc disease and degenerative arthrosis of the articular facet joints at L3-L4 and L4-L5. Otherwise unremarkable examination in that there is no canal stenosis and no mass effect on the traversing or foraminal nerve roots.
== END 2021-06-03 10:07 | disposition home or self-care (01) ==
LOC: HO.MRI 10:06
PROVIDERS: Visit Provider Nurse Practitioner Family
DX: M47.27 Other spondylosis with radiculopathy, lumbosacral region (principal); M51.36 Other intervertebral disc degeneration, lumbar region
CPT/HCPCS: 72148

== ENCOUNTER → 2021-06-06 09:30 | Outpatient (REF) | payer MEDICAID, SELFPAY ==
--- NOTE | ~2021-06-06 | NM_ITS ---
Myocardial perfusion study Indication: Chest pain and shortness of breath evaluate for myocardial ischemia Technique: The patient was brought in for a Lexiscan perfusion study on 06/06/2021. Patient performed low-level exercise and was injected 0.4 mg of Lexiscan intravenously. Within a minute of injection, 45 mCi of sestamibi was given intravenously. Images were obtained using the SPECT gamma camera interlaced with the gating device. Images were obtained in supine position. Resting perfusion study was performed on 06/07/2021. Patient was administered 45 mCi of sestamibi intravenously at rest. Images were then obtained in supine position. Images obtained with and without CT attenuation. Total DLP 147 mGy-cm. Images were processed with the software and compared side to side in short axis, horizontal long axis and vertical long axis views. Findings: The stress perfusion study showed non attenuated images show moderately reduced uptake in the entire lateral and inferolateral wall as well as moderately reduced uptake in the inferior as well as inferolateral and moderately reduced uptake in the distal lateral wall of the LV myocardium. Attenuation corrected images show normal uptake of radiotracer in all segments except for mildly reduced uptake apex of the LV myocardium The gated study shows normal LV systolic function with calculated LVEF of 69%. LV cavity is normal size. The gated study shows normal wall thickening and contraction of segments. Resting study shows non attenuated images show normal uptake of radiotracer in all segments of LV myocardium except for some thinning of the inferoapical wall of the LV myocardium. Attenuation corrected images show no change in pattern compared to stress attenuation corrected images. Gating at rest reveals normal systolic wall motion with ejection fraction at 68%. The findings are consistent with attenuated corrected images are within normal limits. Correlate with non attenuated images there is abnormal suggestive of ischemia. Equivocal findings. CT/NM cardiolite stress test Impression: 1. Myocardial perfusion imaging study shows equivocal findings of possible ischemia in circumflex/diagonal territory 2. Gated LVEF is 69% 3. Transient ischemic dilatation not present EKG is nondiagnostic for ischemia
--- NOTE | 2021-06-06 09:32 | CA_ITS ---
Acquisition Time: 2021-06-06 10:06:47 Total Exercise Time: 00:00:22 Test Indications: Dyspnea Medications: Protocol: BROOKS Max HR: 115 BPM 68% of Pred: 167 BPM Max BP: 130/080 mmHG Max Work Load: 1.7 METS Exercise stress test with exercise 22 sec of Brooks protocol and she was unable to keep up with speed of treadmill. Placed in recovery and slowed to 1 MPH for 2.5 min. Testing changed to pharmacological stress test with Lexiscan injection, without angnal symptoms, without arrythmia, with normotensive response to injection, with nondiagnostic EKG for ischemia. Nuclear images pending. Test reviewed with Dr Aviles. Referred By: Jonas Aviles Overread By: NORMAN REYNA
== END ==
LOC: HO.CARD 09:30
PROVIDERS: PCP Family Medicine; Visit Provider Internal Medicine Cardiovascular Disease
DX: R07.9 Chest pain, unspecified (principal); R06.02 Shortness of breath
CPT/HCPCS: 78452; 93017; A9500; J2785

== ENCOUNTER → 2021-06-11 10:58 | Outpatient (BNVA) | payer MEDICAID, SELFPAY | PROVIDERS: PCP Family Medicine; Visit Provider Nurse Practitioner Family | DX: M47.27 Other spondylosis with radiculopathy, lumbosacral region (principal); M62.830 Muscle spasm of back; M41.9 Scoliosis, unspecified; M79.7 Fibromyalgia; G89.4 Chronic pain syndrome; E66.01 Morbid (severe) obesity due to excess calories; Z68.42 Body mass index [BMI] 45.0-49.9, adult | CPT/HCPCS: 99212 ==

== ENCOUNTER 2021-06-12 11:25 | Outpatient (REF) | payer MEDICAID, SELFPAY ==
--- NOTE | ~2021-06-12 | MM_ITS ---
EXAMINATION: MM SCREENING DIGITAL BREAST TOMOSYNTHESIS, BILATERAL CLINICAL INFORMATION: Screening. Asymptomatic. The lifetime risk of breast cancer based on the Tyrer-Cuzick Model is 10%. COMPARISON: Mammography: 05/09/2020, 11/16/2018, 09/10/2017 TECHNIQUE: Digital breast tomosynthesis is performed in both the craniocaudal and mediolateral oblique views along with computer-aided detection (CAD). Synthesized 2D images are generated from the tomosynthesis. FINDINGS: There are scattered areas of fibroglandular density (ACR BI-RADS breast composition Category b). There are no significant masses, abnormal calcifications, or other abnormalities. Parenchymal pattern is similar to prior studies. No developing density. No significant changes. MM/MM tomosynthesis screening BI IMPRESSION: No mammographic evidence of malignancy. ASSESSMENT: BI-RADS 1: Negative RECOMMENDATION: Routine annual mammography screening. This patient's information was entered into a reminder system with a target due date for their next mammogram.
== END 2021-06-12 11:26 | disposition home or self-care (01) ==
LOC: HO.MAMMO 11:25
PROVIDERS: PCP Family Medicine; Visit Provider Family Medicine
DX: Z12.31 Encounter for screening mammogram for malignant neoplasm of breast (principal)
CPT/HCPCS: 77063; 77067

== ENCOUNTER → 2021-06-19 09:24 | Outpatient (BNVA) | payer MEDICAID, SELFPAY | PROVIDERS: PCP Family Medicine; Referring Provider Family Medicine; Visit Provider Physician Assistant | DX: Z11.0 Encounter for screening for intestinal infectious diseases (principal) | CPT/HCPCS: 99211 ==

== ENCOUNTER 2021-06-19 10:00 | Outpatient (REF) | payer MEDICAID, SELFPAY ==
[2021-06-21 12:16] LABS: H Pylori Breath Test Negative (Negative)
== END 2021-06-19 10:01 | disposition home or self-care (01) ==
LOC: HO.LNP 10:00
PROVIDERS: Visit Provider Surgery
DX: E66.01 Morbid (severe) obesity due to excess calories (principal); K21.9 Gastro-esophageal reflux disease without esophagitis
CPT/HCPCS: 83013

== ENCOUNTER → 2021-06-24 08:01 | Outpatient (BNVA) | payer MEDICAID, SELFPAY | PROVIDERS: PCP Family Medicine; Visit Provider Dietitian, Registered | DX: Z13.89 Encounter for screening for other disorder (principal) ==

== ENCOUNTER → 2021-06-25 08:24 | Outpatient (BNVA) | payer MEDICAID, SELFPAY | PROVIDERS: PCP Family Medicine; Visit Provider Dietitian, Registered | DX: E66.01 Morbid (severe) obesity due to excess calories (principal); E11.9 Type 2 diabetes mellitus without complications; Z71.3 Dietary counseling and surveillance | CPT/HCPCS: 97802 ==

== ENCOUNTER → 2021-07-02 09:36 | Outpatient (BNVA) | payer MEDICAID, SELFPAY | PROVIDERS: PCP Family Medicine; Visit Provider Registered Nurse Diabetes Educator | DX: E11.21 Type 2 diabetes mellitus with diabetic nephropathy (principal); Z79.4 Long term (current) use of insulin | CPT/HCPCS: 99211 ==

== ENCOUNTER → 2021-07-03 08:12 | Outpatient (BNVA) | payer MEDICAID, SELFPAY | PROVIDERS: PCP Family Medicine; Visit Provider Surgery | DX: Z13.89 Encounter for screening for other disorder (principal) ==

== ENCOUNTER → 2021-07-12 11:09 | Outpatient (BNVA) | payer MEDICAID, SELFPAY | PROVIDERS: PCP Family Medicine; Visit Provider Nurse Practitioner Gerontology | DX: E11.649 Type 2 diabetes mellitus with hypoglycemia without coma (principal); E11.21 Type 2 diabetes mellitus with diabetic nephropathy; E78.5 Hyperlipidemia, unspecified; E66.01 Morbid (severe) obesity due to excess calories; I10 Essential (primary) hypertension; K31.84 Gastroparesis; Z79.4 Long term (current) use of insulin; Z68.42 Body mass index [BMI] 45.0-49.9, adult | CPT/HCPCS: 82947; 99212 ==

== ENCOUNTER 2021-07-16 08:38 | Outpatient (REF) | payer MEDICAID, SELFPAY ==
--- NOTE | ~2021-07-16 | FL_ITS ---
EXAMINATION: XR FLUOROSCOPY UPPER GI WITH AIR CLINICAL INFORMATION: Unspecified asthma. Preop bariatric surgery. COMPARISON: None TECHNIQUE: Upper GI was performed using thin and thick barium and effervescent granules FINDINGS: Esophageal motility is normal. No hernia or reflux is seen. The stomach and duodenum are normal. No fold thickening, mass, ulcer or stricture is seen. FLUOROSCOPY TIME: 0.8 minutes DOSE AREA PRODUCT: 8.5 ortiz per centimeter squared. 22 saved fluoroscopic images. FL/FL upper GI w air IMPRESSION: Unremarkable examination.
--- NOTE | ~2021-07-16 | US_ITS ---
EXAMINATION: US COMPLETE ABDOMEN WITH LIVER ELASTOGRAPHY CLINICAL INFORMATION: Asthma COMPARISON: Prior study from December 2020 TECHNIQUE: Real-time imaging of the abdominal viscera. Noninvasive ultrasound liver fibrosis assessment is performed using Char ElastPQ point quantification shear wave elastography (2D-SWE) with a C5-2 MHz transducer. Multiple elastography samples are obtained. FINDINGS: PANCREAS: The visualized portion of the pancreas head and body are normal, portion of the pancreatic body and tail, not visualized are obscured by bowel gas. ABDOMINAL AORTA: The proximal, middle, and distal aortic segments are normal in caliber. INFERIOR VENA CAVA: Visualized portions are normal. LIVER: Normal. The liver demonstrates normal size, contour and echogenicity. No focal lesion or intrahepatic biliary duct dilatation. The right lobe measures 24.7 cm in length. The left lobe measures 11.3 cm in length. Portal flow is hepatopedal Shear wave liver elastography median stiffness is 1.58 m/s (reference: normal median stiffness is 1.3 m/s or less). IQR/median stiffness to assess sampling precision is 0.07 (reference: good quality data set is IQR/median stiffness of 0.15 or less). GALLBLADDER: Normal. The gallbladder is physiologically distended without evidence of stones, sludge, polyps, wall thickening or pericholecystic fluid. COMMON BILE DUCT: Normal in caliber measuring 0.3 cm in diameter. RIGHT KIDNEY: Normal. No hydronephrosis. No renal calculi or focal parenchymal lesions. The kidney measures 12.6 cm in maximum dimension. Echogenic structure in the lower pole could be angiomyolipoma versus nonobstructing stone 0.4 cm in diameter. LEFT KIDNEY: Normal. No hydronephrosis. No renal calculi or focal parenchymal lesions. The kidney measures 13.3 cm in maximum dimension. SPLEEN: Normal. The spleen measures 12.3 cm in maximum dimension. FREE FLUID: None. US/US abdomen comp w elastography IMPRESSION: 1. Hepatomegaly, Liver is enlarged 24.7 cm right lobe. 2. Liver elastography: In the absence of other known clinical signs, measurements rule out compensated advanced chronic liver disease. If there are known clinical signs, further testing may be needed for confirmation. 3. There is echogenic structure in the lower pole right kidney 0.4 cm could be an angiomyolipoma versus nonobstructing stone. REFERENCE: Society of Radiologists in Ultrasound Liver Stiffness Thresholds (2020): LIVER STIFFNESS THRESHOLDS: *Liver Stiffness equal or less than 1.3 m/s: High probability of being normal. *Liver Stiffness less than 1.7 m/s: In the absence of other known clinical signs, rules out compensated advanced chronic liver disease. *Liver Stiffness 1.7-2.1 m/s: Suggestive of compensated advanced chronic liver disease but need further test for confirmation. *Liver Stiffness over 2.1 m/s: Rules in compensated advanced chronic liver disease. *Liver Stiffness over 2.4 m/s: Suggestive of clinically significant portal hypertension. QUALITY OF DATA SET: *IQR/Median value equal or less than 0.15 implies a quality data set. *IQR/Median value over 0.15 implies a poor quality data set. SIGNIFICANT CHANGE FROM PRIOR EXAM: Significant change if liver stiffness measurement is 10% or greater from prior exam. OTHER CONSIDERATIONS: The stage of liver fibrosis may be overestimated in the setting of acute hepatitis, liver inflammation, elevated liver function tests, hepatic vascular congestion, obstructive cholestasis, non-fasting state, and infiltrative diseases such as amyloidosis and lymphoma. In some patients with NAFLD, the liver stiffness thresholds for compensated advanced chronic liver disease may be lower. In causes other than viral hepatitis and NAFLD, liver stiffness thresholds are not well established.
== END 2021-07-16 08:39 | disposition home or self-care (01) ==
LOC: HO.US 08:38
PROVIDERS: Visit Provider Surgery
DX: Z01.818 Encounter for other preprocedural examination (principal); E66.01 Morbid (severe) obesity due to excess calories; K21.9 Gastro-esophageal reflux disease without esophagitis; J45.909 Unspecified asthma, uncomplicated; I10 Essential (primary) hypertension; Z99.89 Dependence on other enabling machines and devices
CPT/HCPCS: 74246; 76705; 76981

== ENCOUNTER → 2021-07-17 08:06 | Outpatient (BNVA) | payer MEDICAID, SELFPAY | PROVIDERS: PCP Family Medicine; Referring Provider Surgery; Visit Provider Dietitian, Registered | DX: E66.01 Morbid (severe) obesity due to excess calories (principal); Z68.42 Body mass index [BMI] 45.0-49.9, adult | CPT/HCPCS: 97803 ==

== ENCOUNTER 2021-08-07 10:59 | Emergency (ER) | payer MEDICAID, SELFPAY ==
--- NOTE | ~2021-08-07 | CT_ITS ---
EXAMINATION: CT ABDOMEN AND PELVIS WITHOUT CONTRAST CLINICAL INFORMATION: Flank pain COMPARISON: Previous CT of the abdomen and pelvis most recent November 2019 and abdominal ultrasound July 01 TECHNIQUE: Multidetector volumetric imaging was performed from the superior aspect of the liver through the pubic symphysis. Sagittal and coronal reformatted images were obtained on the technologist's workstation. This CT examination was performed using dose optimization techniques as appropriate, variously including the following: *Automated exposure control *Adjustment of mA and/or kV according to patient size (this includes techniques or standardized protocols for targeted exams where dose is matched to indication/reason for exam; i.e. extremities or head) *Use of iterative reconstruction technique DLP: 1000 mGy-cm FINDINGS: LUNG BASES: There is subsegmental atelectasis at the lung bases. LIVER, GALLBLADDER, AND BILIARY TREE: Enlarged fatty liver. Normal gallbladder. No focal liver lesion or biliary duct dilatation. PANCREAS: Unremarkable. SPLEEN: Unremarkable. ADRENAL GLANDS: Unremarkable. KIDNEYS AND URETERS: The kidneys are normal in size, shape, and attenuation. No hydronephrosis, hydroureter, or calculi seen. No perinephric stranding. BLADDER: Not optimally distended but appears unremarkable. GASTROINTESTINAL TRACT: There is mild diverticulosis of the colon. There is a large amount stool in the colon questionable for constipation. The small and large bowel are otherwise unremarkable. The appendix is unremarkable. ABDOMINAL WALL: No significant hernia is appreciated. LYMPH NODES: Normal. VASCULAR: Unremarkable. PELVIC VISCERA: Unremarkable. OSSEOUS STRUCTURES: Unremarkable. CT/CT abdomen pelvis wo con IMPRESSION: No renal stone or hydronephrosis seen. Mild diverticulosis of the colon. Question constipation. Enlarged fatty liver. Fleischner guidelines were followed.
[2021-08-07 11:08] VITALS: BP 112/73; BP 131/77; PULSE 88; PULSE 95; RESP 20; TEMP 36.6; O2SAT 96; O2SAT 97; BMI 43.6
--- NOTE | 2021-08-07 11:58 | ED_ITS ---
HPI - Back Pain/Injury General Chief Complaint: Back Pain/Injury Stated Complaint: R FLANK PAIN RAD LEG,NAUSEA,VOMITING X'S DAYS Time Seen by Provider: 08/07/21 11:48 Source: patient, EMS and educational sign language interpreter Mode of arrival: EMS Limitations: language barrier History of Present Illness HPI Narrative: 56-year-old female with a history of anemia, asthma, fibromyalgia, diabetes, GERD, high blood pressure, chronic back pain here with reports of lower back pain with radiation into the right leg for 4 days with no fall or injury. Patient tells me she has chronic back pain but this pain feels different to her. Her normal chronic back pain does involve her right leg with numbness and tingling. This is unchanged from baseline. She denies any urinary symptoms, fevers, chills, diarrhea constipation. She does report some nausea. Yesterday she vomited 4 times. No vomiting today. No abdominal pain Related Data Home Medications Medication Instructions Recorded Confirmed clonidine HCl 0.1 mg tablet 0.1 mg PO BEDTIME 11/30/19 05/23/21 ferrous sulfate 325 mg (65 mg 325 mg PO DAILY 11/30/19 05/23/21 iron) tablet levothyroxine 112 mcg tablet 112 mcg PO DAILY 11/30/19 07/12/21 rosuvastatin 20 mg tablet (Crestor) 20 mg PO DAILY 11/30/19 05/23/21 thiamine HCl (vitamin B1) 100 mg 100 mg PO DAILY 11/30/19 05/23/21 tablet risperidone 2 mg tablet 2 mg PO DAILY 07/02/20 05/24/21 albuterol sulfate mg inhalation Q4-6H PRN asthma 01/01/21 05/24/21 albuterol sulfate 90 mcg/actuation 2 puff PO Q4-6H PRN asthma 01/01/21 05/23/21 aerosol inhaler (ProAir HFA) alcohol swabs (Alcohol Prep Pads) pad topical BID 01/01/21 05/24/21 aspirin 81 mg tablet,delayed 81 mg PO QAM 01/01/21 07/12/21 release cyanocobalamin (vitamin B-12) 1,000 mcg IM 01/01/21 07/12/21 1,000 mcg/mL injection solution docusate sodium 100 mg capsule 100 mg PO 01/01/21 05/23/21 ergocalciferol (vitamin D2) 1,250 1,250 mcg PO QWEEK 01/01/21 07/12/21 mcg (50,000 unit) capsule fluticasone propionate 110 1 puff PO BID 01/01/21 07/12/21 mcg/actuation HFA aerosol inhaler (Flovent HFA) hydrochlorothiazide 25 mg tablet 25 mg PO QAM 01/01/21 07/12/21 ibuprofen 800 mg tablet 800 mg PO TID 01/01/21 05/24/21 melatonin 5 mg tablet 5 - 10 mg PO BEDTIME PRN 01/01/21 05/24/21 nortriptyline 75 mg capsule 150 mg PO BEDTIME 01/01/21 05/23/21 oxybutynin chloride 10 mg 10 mg PO QAM 01/01/21 05/23/21 tablet,extended release 24 hr aripiprazole 15 mg tablet 5 mg PO QAM 05/07/21 05/23/21 clonazepam 1 mg tablet 1 mg PO TID 05/07/21 05/23/21 naproxen 500 mg tablet 500 mg PO BID 05/07/21 05/24/21 omeprazole 20 mg capsule,delayed 20 mg PO DAILY 05/07/21 05/23/21 release valsartan 160 mg tablet 160 mg PO DAILY 05/07/21 07/12/21 losartan 100 mg tablet 100 mg PO DAILY 05/23/21 07/12/21 cholecalciferol (vitamin D3) 50 50 mcg PO QAM 07/12/21 07/12/21 mcg (2,000 unit) capsule Previous Rx's Medication Instructions Recorded blood sugar diagnostic (FreeStyle #150 ea 11/19/20 Lite Strips) TRUEplus Lancets 33 gauge (lancets) #120 ea 01/10/21 pen needle, diabetic 32 gauge x #100 ea 02/04/21 (BD Usha 2nd Gen Pen Needle) propranolol 80 mg tablet 80 mg PO BID 90 days #180 tabs 05/20/21 glucagon 3 mg/actuation nasal 3 mg intranasal ONCE unresponsive 05/30/21 spray (Baqsimi) hypoglycemia 30 days #4 ea gabapentin 400 mg capsule 400 mg PO TID #270 caps 06/10/21 tizanidine 4 mg tablet 4 mg PO TID PRN muscle spasticity 06/11/21 30 days #90 tabs metformin 500 mg tablet 1,000 mg PO BID 90 days #360 tabs 06/13/21 glucose 4 gram chewable tablet 12 g PO Q15M PRN hypoglycemia #60 07/12/21 (Dex4 Glucose) tabs insulin regular hum U-500 conc See Rx Instructions subcut DAILY 07/12/21 (Humulin R U-500 (Conc) Insulin 30 days #24 mL Kwikpen) sitagliptin 100 mg tablet (Januvia) 100 mg PO DAILY 30 days #30 tabs 07/12/21 metoclopramide HCl 5 mg tablet 5 mg PO BEDTIME #30 tabs 07/31/21 acetaminophen 325 mg tablet 650 mg PO Q4H PRN pain #30 tabs 08/07/21 (Tylenol) cyclobenzaprine 10 mg tablet 10 mg PO TID PRN muscle spasm #10 08/07/21 tabs lidocaine 5 % topical patch 1 patch topical DAILY #15 ea 08/07/21 (Lidoderm) Allergies Allergy/AdvReac Type Severity Reaction Status Date / Time No Known Allergies Allergy Verified 07/12/21 11:52 [No Known Allergies*] Review of Systems Review of Systems: Yes all other systems are reviewed and are negative Constitutional: Constitutional: Reports no additional constitutional complaints, Denies body ache(s), Denies chills, Denies fever(s), Denies headache(s) and Denies weakness Eyes: Eyes: Reports no additional eye complaints and Denies change in vision ENT: Reports system reviewed and no additional complaints, except as documented, Denies dizziness, Denies headache(s), Denies nasal congestion, Denies nasal discharge and Denies neck pain Cardiovascular: Cardiovascular: Reports no additional cardiovascular complaints, Denies chest pain, Denies leg edema and Denies dyspnea Respiratory: Respiratory: Reports no additional respiratory complaints, Denies cough and Denies dyspnea Gastrointestinal: Gastrointestinal: Reports no additional gastrointestinal com plaints, Denies abdominal pain, Denies diarrhea, Denies nausea and Denies vomiting Genitourinary: Genitourinary: Reports no additional female genitourinary complaints and Denies urinary incontinence Musculoskeletal: Musculoskeletal: Reports no additional musculoskeletal complaints, Reports back pain, Denies arthralgias, Denies joint swelling, Denies neck pain, Reports numbness and Reports tingling Integumentary/Breasts: Skin/Breast: Reports system reviewed and no additional complaints, except as docu and Denies rash Neurologic: Reports system reviewed and no additional complaints, except as documented, Denies Abnormal speech present, Denies dizziness, Denies headache(s), Reports numbness, Reports tingling and Denies weakness PMFSH Past Medical History Attestation statement: The following information was validated with the patient. Source: old records reviewed and nursing notes reviewed Medical History Anemia Anxiety Asthma Chest pain Chronic pain syndrome Depression 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, uncontrolled Diabetic nephropathy associated with type 2 diabetes mellitus Dyslipidemia Family history of colon cancer Fibromyalgia Gastroparesis Genu valgum GERD (gastroesophageal reflux disease) Hemorrhoids HTN (hypertension) 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 due to insulin Hypothyroidism Inappropriate sinus tachycardia Insomnia snf (current) use of insulin Low back pain Lumbar spondylosis Migraine Morbid obesity Obesity Obesity due to excess calories Obstructive sleep apnea on CPAP Palpitations Paranoia (psychosis) Patella-femoral syndrome Patellofemoral arthritis Sacroiliitis Scoliosis of thoracolumbar spine Sinus tachycardia 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 Paternal Aunt Stomach cancer Sister Stomach cancer Sister Uterine cancer Social History Social History Household Members: Children Alcohol intake: current Alcohol intake frequency: does not drink Patient Tobacco Use Status: Never used Tobacco Second Hand Smoke Exposure: No Advance Directives: No Advance Directives Information Provided: No Current occupational status: other Current occupation: lt handed Sexual orientation: Straight/Heterosexual Gender identity: Female Physical Exam Vital Signs: Vital Signs: Last Vital Signs Temp 97.9 F 08/07/21 11:08 Pulse 77 08/07/21 12:24 Resp 18 08/07/21 12:24 BP 132/67 08/07/21 12:24 Pulse Ox 93 08/07/21 12:24 O2 Del Method 08/07/21 12:24 BMI result Body Mass Index 43.6 Const: General: cooperative, healthy appearing, comfortable and no acute distress Orientation/consciousness: patient oriented x3 Limitations: no limitations HEENT: Head: Yes normal to inspection Ears: hearing grossly normal bilaterally General nose exam: Normal external nose present Face and sinus: Yes normal facial exam Mouth: Normal oral and palatal mucosa present Throat: Yes posterior oropharynx normal Eyes: General: appearance normal, both eyes and all related structures Pupils: Equal, round and reactive pupils present Neck: Neck: Yes normal visual inspection Chest: Chest palpation & inspection: normal inspection of the chest Resp: Effort & Inspection: normal respiratory effort Auscultation: clear to auscultation bilaterally Cardio: Rate: regular rate Rhythm: regular rhythm Peripheral pulses: Peripheral pulses 2+ throughout GI: Inspection: Yes normal to inspection Palpation (GI): Soft to palpation and nontender Auscultation: normal bowel sounds Back/Spine/Pelvis: Other: There is tenderness to the left lumbar soft tissue area extending to the flank and the mid spine with no step-offs deformities. The right side is normal Patient able to straight leg bilaterally with no difficulty Thoracic/Lumbar Spine: thoracic and lumbar spine normal to inspection Skin: General skin exam: no rashes or lesions noted Neuro: General: patient oriented x3, moves all extremities, no focal motor deficits and normal sensation to monofilament Cranial nerves: Yes Equal, round and reactive pupils present Cognition (Neuro): normal cognition Speech: No Abnormal speech present Gait exam (Neuro): Normal gait present Motor exam (neuro): 5/5 motor strength present throughout Sensory Exam: Normal double simultaneous stimulation for sensation Deep tendon reflexes (DTR's): Right patellar reflex intensity grade: 2+ and Left patellar reflex intensity grade: 2+ Extrem: General: Yes normal to inspection Course Course Course Narrative: 56-year-old female with history of chronic back pain here with reports of back pain (L>R) for the last 4 days with radiation into the right leg with numbness and tingling with no known injury or trauma. No saddle anesthesia. No bowel or bladder incontinence. Reviewed chills. No abdominal pain. She has had some intermittent nausea and vomiting. She feels like this back pain is worsened her normal chronic back pain. On exam normal neuro exam. No focal abdominal tenderness. No CVA tenderness. Will check labs, UA, provide analgesia and reassess Reevaluation(s) Reevaluation #1: Labs and UA show no acute finding. Patient reports continued pain the low back. Her blood sugar is 55. She took her insulin this morning and did not eat any food before coming in today. She is alert oriented. Will give orange juice and crackers and recheck her blood sugar. Will obtain imaging of her lower back Time: 15:00 Reevaluation #2: CT IMPRESSION: No renal stone or hydronephrosis seen. Mild diverticulosis of the colon. Question constipation. Enlarged fatty liver.? Blood sugar improved after some crackers and juice. Plan for discharge home. Likely lumbar strain. Low concern for epidural abscess with no history of immunocompromise state/no fever/no h/o IVDA. Low concern for cord compression or cauda equina with no neurological deficits or red flag symptoms. Likely lumbar strain. Will discharge home with APAP, low-dose muscle relaxant and medicated patches. Reviewed worrisome signs and symptoms of when to return to the emergency department. Comfortable discharge home. Time: 16:30 MDM - Back Pain/Injury MDM Narrative Medical decision making narrative: Lumbar strain, UTI, pyelo Medical Records Attestation: I reviewed the patient's medical records. Lab Data Attestation: I reviewed the patient's lab results. Result diagrams: 08/07/21 12:11 08/07/21 12:11 Labs: Lab Results 08/07/21 08/07/21 08/07/21 Range/Units 12:11 12:11 13:17 WBC 10.8 (4.8-10.8) X10*3/uL RBC 3.94 L (4.20-5.50) X10*6/uL Hgb 10.1 L (12.0-16.0) g/dl Hct 34.1 L (37.0-47.0) % MCV 86.5 (80.0-98.0) fL MCH 25.6 L (27.0-33.0) pg MCHC 29.6 L (31.0-35.0) g/dl RDW 15.9 (11.0-16.0) % Plt Count 288 (160-400) X10*3/uL MPV 9.8 (9.4-12.3) fL Immature Gran % (Auto) 0.5 H (0.0-0.4) % Neut % (Auto) 66.6 (45-73) % Lymph % (Auto) 25.6 (20-40) % [place] % (Auto) 5.0 (2-11) % Eos % (Auto) 2.1 (0-4) % Baso % (Auto) 0.2 (0-2) % Lymph # (Auto) 2.8 (1.2-4.9) X10*3/uL [place] # (Auto) 0.5 (0.1-1.2) X10*3/uL Eos # (Auto) 0.2 (0.0-0.4) X10*3/uL Baso # (Auto) 0.0 (0.0-0.2) X10*3/uL Abs Immat Gran (auto) 0.05 H (0.00-0.03) X10*3/uL Absolute Neuts (auto) 7.2 (2.0-8.3) x10*3/uL Absolute Nucleated RBC 0.000 (0.0-0.012) X10*3/uL Nucleated RBC % (auto) 0.0 (0.0-0.2) /100WBC Sodium 145 (135-145) mmol/L Potassium 3.2 L (3.3-5.1) mmol/L Chloride 103 (96-108) mmol/L Carbon Dioxide 31 H (22-29) mmol/L Anion Gap 14 (12-20) BUN 8 L (9-16) mg/dL Creatinine 0.59 (0.5-1.4) mg/dL Estim Creat Clear Calc 135.7 Estimated GFR > 60 POC Glucose 92 (60-115) mg/dL Random Glucose 158 H (60-115) mg/dL Calcium 8.8 D (8.4-10.2) mg/dL Urine Color Urine Appearance Urine pH (5.0-8.0) Ur Specific [place] (1.005-1.025) Urine Protein (NEG-TRACE) MG/DL Urine Glucose (UA) (NEG) MG/DL Urine Ketones (NEG) MG/DL Urine Blood (NEG) Urine Nitrite (NEG) Ur Leukocyte Esterase (NEG) Urine RBC (0) /HPF Urine WBC (0-4) /HPF Ur Squamous Epith Cells /LPF Urine Bacteria /LPF 08/07/21 08/07/21 08/07/21 Range/Units 14:09 14:57 15:15 WBC (4.8-10.8) X10*3/uL RBC (4.20-5.50) X10*6/uL Hgb (12.0-16.0) g/dl Hct (37.0-47.0) % MCV (80.0-98.0) fL MCH (27.0-33.0) pg MCHC (31.0-35.0) g/dl RDW (11.0-16.0) % Plt Count (160-400) X10*3/uL MPV (9.4-12.3) fL Immature Gran % (Auto) (0.0-0.4) % Neut % (Auto) (45-73) % Lymph % (Auto) (20-40) % [place] % (Auto) (2-11) % Eos % (Auto) (0-4) % Baso % (Auto) (0-2) % Lymph # (Auto) (1.2-4.9) X10*3/uL [place] # (Auto) (0.1-1.2) X10*3/uL Eos # (Auto) (0.0-0.4) X10*3/uL Baso # (Auto) (0.0-0.2) X10*3/uL Abs Immat Gran (auto) (0.00-0.03) X10*3/uL Absolute Neuts (auto) (2.0-8.3) x10*3/uL Absolute Nucleated RBC (0.0-0.012) X10*3/uL Nucleated RBC % (auto) (0.0-0.2) /100WBC Sodium (135-145) mmol/L Potassium (3.3-5.1) mmol/L Chloride (96-108) mmol/L Carbon Dioxide (22-29) mmol/L Anion Gap (12-20) BUN (9-16) mg/dL Creatinine (0.5-1.4) mg/dL Estim Creat Clear Calc Estimated GFR POC Glucose 55 L* 95 (60-115) mg/dL Random Glucose (60-115) mg/dL Calcium (8.4-10.2) mg/dL Urine Color YELLOW Urine Appearance HAZY Urine pH 6.0 (5.0-8.0) Ur Specific [place] 1.010 (1.005-1.025) Urine Protein NEG (NEG-TRACE) MG/DL Urine Glucose (UA) NEG (NEG) MG/DL Urine Ketones NEG (NEG) MG/DL Urine Blood NEG (NEG) Urine Nitrite NEG (NEG) Ur Leukocyte Esterase 1+ H (NEG) Urine RBC 0-2 (0) /HPF Urine WBC 5-9 H (0-4) /HPF Ur Squamous Epith Cells 2+ /LPF Urine Bacteria TRACE /LPF 08/07/21 Range/Units 16:26 WBC (4.8-10.8) X10*3/uL RBC (4.20-5.50) X10*6/uL Hgb (12.0-16.0) g/dl Hct (37.0-47.0) % MCV (80.0-98.0) fL MCH (27.0-33.0) pg MCHC (31.0-35.0) g/dl RDW (11.0-16.0) % Plt Count (160-400) X10*3/uL MPV (9.4-12.3) fL Immature Gran % (Auto) (0.0-0.4) % Neut % (Auto) (45-73) % Lymph % (Auto) (20-40) % [place] % (Auto) (2-11) % Eos % (Auto) (0-4) % Baso % (Auto) (0-2) % Lymph # (Auto) (1.2-4.9) X10*3/uL [place] # (Auto) (0.1-1.2) X10*3/uL Eos # (Auto) (0.0-0.4) X10*3/uL Baso # (Auto) (0.0-0.2) X10*3/uL Abs Immat Gran (auto) (0.00-0.03) X10*3/uL Absolute Neuts (auto) (2.0-8.3) x10*3/uL Absolute Nucleated RBC (0.0-0.012) X10*3/uL Nucleated RBC % (auto) (0.0-0.2) /100WBC Sodium (135-145) mmol/L Potassium (3.3-5.1) mmol/L Chloride (96-108) mmol/L Carbon Dioxide (22-29) mmol/L Anion Gap (12-20) BUN (9-16) mg/dL Creatinine (0.5-1.4) mg/dL Estim Creat Clear Calc Estimated GFR POC Glucose 65 (60-115) mg/dL Random Glucose (60-115) mg/dL Calcium (8.4-10.2) mg/dL Urine Color Urine Appearance Urine pH (5.0-8.0) Ur Specific [place] (1.005-1.025) Urine Protein (NEG-TRACE) MG/DL Urine Glucose (UA) (NEG) MG/DL Urine Ketones (NEG) MG/DL Urine Blood (NEG) Urine Nitrite (NEG) Ur Leukocyte Esterase (NEG) Urine RBC (0) /HPF Urine WBC (0-4) /HPF Ur Squamous Epith Cells /LPF Urine Bacteria /LPF Imaging Data CT scan - abdomen: Attestation: I personally reviewed and interpreted this imaging study as follows: Radiologist's impression: IMPRESSION: No renal stone or hydronephrosis seen. Mild diverticulosis of the colon. Question constipation. Enlarged fatty liver.? Discharge Plan Discharge Clinical Impression: Strain of lumbar region, 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 Patient Disposition: Home, Self-Care Instructions: 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 in a Person with Diabetes (ED), Low Back Strain (ED) Additional Instructions: Make sure you eat food when you are taking her insulin Your blood work, urine samples and CT are normal Follow-up with primary care doctor in 7 days for any persistent symptoms Seek care in the emergency department for any fever, bowel or bladder incontinence, numbness in the groin Prescriptions: New cyclobenzaprine 10 mg tablet 10 mg PO TID PRN (Reason: muscle spasm) Qty: 10 0RF lidocaine [Lidoderm] 5 % adhesive patch,medicated 1 patch topical DAILY Qty: 15 0RF Rx Instructions: leave on most painful area for up to 12 hrs acetaminophen [Tylenol] 325 mg tablet 650 mg PO Q4H PRN (Reason: pain) Qty: 30 0RF No Action (DME) FreeStyle Lite Strips Strip See Rx Instructions .MEDSUPPLY Qty: 150 11RF Rx Instructions: 5 times a day (DME) lancets [TRUEplus Lancets] 33 gauge misc See Rx Instructions .ROUTE .MEDSUPPLY Qty: 120 11RF Rx Instructions: 4 times a day (DME) pen needle, diabetic [BD Suha 2nd Gen Pen Needle] 32 gauge x 5/32 needle See Rx Instructions .MEDSUPPLY Qty: 100 11RF Rx Instructions: Twice a day propranolol 80 mg tablet 80 mg PO BID 90 Days Qty: 180 3RF Baqsimi 3 mg/actuation spray,non-aerosol 3 mg intranasal ONCE 30 Days Qty: 4 6RF Rx Instructions: [place] once for severe hypoglycemia when patient cannot self-treat with glucose. Afterwards turn on side. May repeat after 15 minutes if patient does not respond. gabapentin 400 mg capsule 400 mg PO TID Qty: 270 1RF metformin 500 mg tablet 1,000 mg PO BID 90 Days Qty: 360 1RF metoclopramide HCl 5 mg tablet 5 mg PO BEDTIME Qty: 30 6RF risperidone 2 mg tablet 2 mg PO DAILY clonidine HCl 0.1 mg tablet 0.1 mg PO BEDTIME rosuvastatin [Crestor] 20 mg tablet 20 mg PO DAILY thiamine HCl (vitamin B1) 100 mg tablet 100 mg PO DAILY levothyroxine 112 mcg tablet 112 mcg PO DAILY ferrous sulfate 325 mg (65 mg iron) tablet 325 mg PO DAILY clonazepam 1 mg tablet 1 mg PO TID valsartan 160 mg tablet 160 mg PO DAILY naproxen 500 mg tablet 500 mg PO BID omeprazole 20 mg capsule,delayed release(DR/EC) 20 mg PO DAILY nortriptyline 75 mg capsule 150 mg PO BEDTIME melatonin 5 mg tablet 5 - 10 mg PO BEDTIME PRN hydrochlorothiazide 25 mg tablet 25 mg PO QAM ergocalciferol (vitamin D2) 1,250 mcg (50,000 unit) capsule 1,250 mcg PO QWEEK docusate sodium 100 mg capsule 100 mg PO cyanocobalamin (vitamin B-12) 1,000 mcg/mL solution 1,000 mcg IM aspirin 81 mg tablet,delayed release (DR/EC) 81 mg PO QAM ibuprofen 800 mg tablet 800 mg PO TID oxybutynin chloride 10 mg tablet extended release 24hr 10 mg PO QAM Flovent HFA 110 mcg/actuation HFA aerosol inhaler 1 puff PO BID albuterol sulfate [ProAir HFA] 90 mcg/actuation HFA aerosol inhaler 2 puff PO Q4-6H PRN (Reason: asthma) alcohol swabs [Alcohol Prep Pads] Pads, Medicated topical BID albuterol sulfate 2.5 mg /3 mL (0.083 %) solution for nebulization inhalation Q4-6H PRN (Reason: asthma) aripiprazole 15 mg tablet 5 mg PO QAM cholecalciferol (vitamin D3) 50 mcg (2,000 unit) capsule 50 mcg PO QAM Januvia 100 mg tablet 100 mg PO DAILY 30 Days Qty: 30 6RF glucose [Dex4 Glucose] 4 gram tablet,chewable 12 g PO Q15M PRN (Reason: hypoglycemia) Qty: 60 6RF Rx Instructions: until symptoms of low blood sugar are controlled Humulin R U-500 (Conc) Kwikpen 500 unit/mL (3 mL) insulin pen See Rx Instructions subcut DAILY 30 Days Qty: 24 5RF Rx Instructions: 145 units with breakfast and 125 units with dinner subcut daily; tizanidine 4 mg tablet 4 mg PO TID PRN (Reason: muscle spasticity) 30 Days Qty: 90 0RF Rx Instructions: Start at 1/2 tab as medication can be sedating losartan 100 mg tablet 100 mg PO DAILY Referrals: [place],[facility] [Primary Care Provider] - 1 week (for persistent symptoms ) Print Language: Ma[place]
[2021-08-07] MEDS: Ketorolac Tromethamine 60 MG/2 ML VIAL IM (12:11)
[2021-08-07 12:17] LABS: MANUAL DIFF FLAG NO
[2021-08-07 12:21] LABS: Basophils Percent Auto 0.2 % (0-2); Eosinophils Absolute Auto 0.2 X10*3/uL (0.0-0.4); Eosinophils Percent Auto 2.1 % (0-4); Hematocrit 34.1 % (37.0-47.0); Hemoglobin 10.1 g/dl (12.0-16.0); Imm Gran Abs Auto 0.05 X10*3/uL (0.00-0.03); Imm Gran Pct Auto 0.5 % (0.0-0.4); Lymphocytes Absolute Auto 2.8 X10*3/uL (1.2-4.9); Lymphocytes Percent Auto 25.6 % (20-40); Mean Corpuscular HGB Conc 29.6 g/dl (31.0-35.0); Mean Corpuscular Hemoglobin 25.6 pg (27.0-33.0); Mean Corpuscular Volume 86.5 fL (80.0-98.0); Mean Platelet Volume 9.8 fL (9.4-12.3); Monocytes Absolute Auto 0.5 X10*3/uL (0.1-1.2); Neutrophils Absolute Auto 7.2 x10*3/uL (2.0-8.3); Neutrophils Percent Auto 66.6 % (45-73); Platelet Count 288 X10*3/uL (160-400); Red Blood Count 3.94 X10*6/uL (4.20-5.50); Red Cell Distribution Width 15.9 % (11.0-16.0); White Blood Count 10.8 X10*3/uL (4.8-10.8)
[2021-08-07 12:24] VITALS: BP 132/67; PULSE 77; RESP 18; O2SAT 93
[2021-08-07 12:36] LABS: Anion Gap 14 (12-20); Blood Urea Nitrogen 8 mg/dL (9-16); Calcium 8.8 mg/dL (8.4-10.2); Carbon Dioxide 31 mmol/L (22-29); Chloride 103 mmol/L (96-108); Creatinine Clr Calc Pharmacy 135.7; Estimated Glomerular Filt Rate > 60; Glucose Random 158 mg/dL (60-115); Potassium 3.2 mmol/L (3.3-5.1); Sodium 145 mmol/L (135-145)
[2021-08-07 13:20] LABS: Glucose, Whole Blood 92 mg/dL (60-115)
[2021-08-07 14:18] LABS: Appearance Urine HAZY; Color Urine YELLOW; Glucose Urine UA NEG (NEG); Leukocyte Esterase Urine 1+ (NEG); Nitrite Urine NEG (NEG); UACC Culture Trigger YES; Urine Blood NEG (NEG); Urine Ketones NEG (NEG); Urine Protein NEG (NEG-TRACE)
[2021-08-07 14:25] LABS: RBC Urine 0-2 /HPF (0); Squamous Epithelial Cell Urine 2+ /LPF
[2021-08-07 14:26] LABS: Bacteria Urine TRACE /LPF
[2021-08-07 15:05] LABS: Glucose, Whole Blood 55 mg/dL (60-115)
[2021-08-07] MEDS: Acetaminophen 325 MG TABLET 975 MG PO (15:05)
[2021-08-07] MEDS: oxyCODONE HCl Immed Release 5 MG TABLET PO (15:06)
[2021-08-07 16:30] LABS: Glucose, Whole Blood 95 mg/dL (60-115)
[2021-08-07 16:30] LABS: Glucose, Whole Blood 65 mg/dL (60-115)
== END 2021-08-07 17:35 | disposition home or self-care (01) ==
PROVIDERS: Nurse Practitioner Family; Emergency Provider Emergency Medicine
DX: S39.012A Strain of muscle, fascia and tendon of lower back, initial encounter (principal); X58.XXXA Exposure to other specified factors, initial encounter; E11.649 Type 2 diabetes mellitus with hypoglycemia without coma; M54.41 Lumbago with sciatica, right side; I10 Essential (primary) hypertension; E78.5 Hyperlipidemia, unspecified; Z79.4 Long term (current) use of insulin; Y93.9 Activity, unspecified; Y92.9 Unspecified place or not applicable; Y99.9 Unspecified external cause status; Z79.82 Long term (current) use of aspirin
CPT/HCPCS: 36415; 74176; 80048; 81001; 82947; 85025; 87086; 96372; 99284; J1885

== ENCOUNTER 2021-08-23 11:35 | Outpatient (REF) | payer MEDICAID, SELFPAY ==
[2021-08-23 12:08] LABS: Hematocrit 37.8 % (37.0-47.0); Hemoglobin 11.1 g/dl (12.0-16.0); Mean Corpuscular HGB Conc 29.4 g/dl (31.0-35.0); Mean Corpuscular Hemoglobin 25.8 pg (27.0-33.0); Mean Corpuscular Volume 87.7 fL (80.0-98.0); Mean Platelet Volume 10.4 fL (9.4-12.3); Platelet Count 363 X10*3/uL (160-400); Red Blood Count 4.31 X10*6/uL (4.20-5.50); Red Cell Distribution Width 16.4 % (11.0-16.0); White Blood Count 11.9 X10*3/uL (4.8-10.8)
== END 2021-08-23 11:36 | disposition home or self-care (01) ==
LOC: HO.LAB 11:35
PROVIDERS: PCP Family Medicine; Visit Provider Internal Medicine Cardiovascular Disease
DX: R06.02 Shortness of breath (principal)
CPT/HCPCS: 36415; 85027

== ENCOUNTER 2021-09-18 09:26 | Outpatient (REF) | payer MEDICAID, SELFPAY ==
--- NOTE | ~2021-09-18 | US_ITS ---
EXAMINATION: US RETROPERITONEAL LIMITED (RENAL ONLY) CLINICAL INFORMATION: Abnormal findings. COMPARISON: CT abdomen and pelvis 08/07/2021. Ultrasound abdomen complete with elastography 07/16/2021. Ultrasound abdomen complete 01/18/2021. TECHNIQUE: Real-time imaging of the kidneys. FINDINGS: RIGHT KIDNEY: 11.8 x 4.8 x 6.0 cm (SAG x AP x TRV). The kidney is normal in size, contour, and echogenicity. Renal cortical thickness is normal. No calculi or focal parenchymal lesions. No hydronephrosis. LEFT KIDNEY: 13.2 x 5.4 x 4.7 cm (SAG x AP x TRV). The kidney is normal in size, contour, and echogenicity. Renal cortical thickness is normal. No calculi or focal parenchymal lesions. No hydronephrosis. US/US renal BI IMPRESSION: Unremarkable renal ultrasound.
== END 2021-09-18 09:27 | disposition home or self-care (01) ==
LOC: HO.US 09:26
PROVIDERS: Visit Provider Family Medicine
DX: R93.5 Abnormal findings on diagnostic imaging of other abdominal regions, including retroperitoneum (principal)
CPT/HCPCS: 76775

== ENCOUNTER → 2021-09-26 13:13 | Outpatient (BNVA) | payer MEDICAID, SELFPAY | PROVIDERS: PCP Family Medicine; Referring Provider Family Medicine; Visit Provider Nurse Practitioner Family | DX: R06.02 Shortness of breath (principal); R93.1 Abnormal findings on diagnostic imaging of heart and coronary circulation; I10 Essential (primary) hypertension; E78.5 Hyperlipidemia, unspecified; E66.01 Morbid (severe) obesity due to excess calories; Z68.42 Body mass index [BMI] 45.0-49.9, adult | CPT/HCPCS: 99212 ==

== ENCOUNTER 2021-10-20 09:07 | Emergency (ER) | payer MEDICAID, SELFPAY ==
--- NOTE | ~2021-10-20 | XR_ITS ---
EXAMINATION: XR CHEST CLINICAL INFORMATION: Shortness of breath. COMPARISON: 05/19/2021 chest radiographs. TECHNIQUE: 2 views of the chest were obtained. FINDINGS: Mild increased pulmonary vascular markings are seen. Mild linear markings are seen at the left lung base. There are no pleural effusions. The heart is mildly enlarged. The mediastinal structures are unremarkable. XR/XR chest 2V IMPRESSION: Mild prominence of the pulmonary vasculature may be projectional, but mild congestion cannot be excluded.
[2021-10-20 09:13] VITALS: BP 120/60; PULSE 85; RESP 20; TEMP 36.8; O2SAT 98; BMI 44.9
--- NOTE | 2021-10-20 09:25 | ECG_ITS ---
Test Reason : SOB Blood Pressure : / mmHG Vent. Rate : 082 BPM Atrial Rate : 082 BPM P-R Int : 140 ms QRS Dur : 098 ms QT Int : 384 ms P-R-T Axes : 038 032 023 degrees QTc Int : 448 ms Normal sinus rhythm Nonspecific ST and T wave abnormality Abnormal ECG When compared with ECG of 27-MAY-2021 09:58, No significant change was found Referred By: Gonzales [place] Electronically Signed By:MARY RIVERS
--- NOTE | 2021-10-20 09:28 | ED_ITS ---
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 complaint: shortness of breath Onset (ago): hour(s) (8) Severity: moderate Associated symptoms: none Related Data Current Asthma Therapy: inhaled bronchodilator Home Medications Medication Instructions Recorded Confirmed clonidine HCl 0.1 mg tablet 0.1 mg PO BEDTIME 11/30/19 09/30/21 ferrous sulfate 325 mg (65 mg 325 mg PO DAILY 11/30/19 09/30/21 iron) tablet levothyroxine 112 mcg tablet 112 mcg PO DAILY 11/30/19 09/30/21 rosuvastatin 20 mg tablet (Crestor) 20 mg PO DAILY 11/30/19 09/30/21 thiamine HCl (vitamin B1) 100 mg 100 mg PO DAILY 11/30/19 09/30/21 tablet risperidone 2 mg tablet 2 mg PO DAILY 07/02/20 09/30/21 albuterol sulfate 2.5 mg/3 mL mg inhalation Q4-6H PRN asthma 01/01/21 09/30/21 (0.083 %) solution for nebulization albuterol sulfate 90 mcg/actuation 2 puff PO Q4-6H PRN asthma 01/01/21 09/30/21 aerosol inhaler (ProAir HFA) alcohol swabs (Alcohol Prep Pads) pad topical BID 01/01/21 09/30/21 aspirin 81 mg tablet,delayed 81 mg PO QAM 01/01/21 09/30/21 release cyanocobalamin (vitamin B-12) 1,000 mcg IM 01/01/21 09/30/21 1,000 mcg/mL injection solution ergocalciferol (vitamin D2) 1,250 1,250 mcg PO QWEEK 01/01/21 09/30/21 mcg (50,000 unit) capsule fluticasone propionate 110 1 puff PO BID 01/01/21 09/30/21 mcg/actuation HFA aerosol inhaler (Flovent HFA) hydrochlorothiazide 25 mg tablet 25 mg PO QAM 01/01/21 09/30/21 ibuprofen 800 mg tablet 800 mg PO TID 01/01/21 09/30/21 melatonin 5 mg tablet 5 - 10 mg PO BEDTIME PRN 01/01/21 09/30/21 nortriptyline 75 mg capsule 150 mg PO BEDTIME 01/01/21 09/30/21 oxybutynin chloride 10 mg 10 mg PO QAM 01/01/21 09/30/21 tablet,extended release 24 hr aripiprazole 15 mg tablet 5 mg PO QAM 05/07/21 09/30/21 clonazepam 1 mg tablet 1 mg PO TID 05/07/21 09/30/21 naproxen 500 mg tablet 500 mg PO BID 05/07/21 09/30/21 omeprazole 20 mg capsule,delayed 20 mg PO DAILY 05/07/21 09/30/21 release valsartan 160 mg tablet 160 mg PO DAILY 05/07/21 09/30/21 losartan 100 mg tablet 100 mg PO DAILY 05/23/21 09/30/21 cholecalciferol (vitamin D3) 50 50 mcg PO QAM 07/12/21 09/30/21 mcg (2,000 unit) capsule docusate sodium 100 mg capsule 100 mg PO 09/26/21 09/30/21 Previous Rx's Medication Instructions Recorded blood sugar diagnostic (FreeStyle #150 ea 11/19/20 Lite Strips) TRUEplus Lancets 33 gauge (lancets) #120 ea 01/10/21 pen needle, diabetic 32 gauge x #100 ea 02/04/21 (BD Usha 2nd Gen Pen Needle) propranolol 80 mg tablet 80 mg PO BID 90 days #180 tabs 05/20/21 glucagon 3 mg/actuation nasal 3 mg intranasal ONCE unresponsive 05/30/21 spray (Baqsimi) hypoglycemia 30 days #4 ea gabapentin 400 mg capsule 400 mg PO TID #270 caps 06/10/21 metformin 500 mg tablet 1,000 mg PO BID 90 days #360 tabs 06/13/21 glucose 4 gram chewable tablet 12 g PO Q15M PRN hypoglycemia #60 07/12/21 (Dex4 Glucose) tabs insulin regular hum U-500 conc 500 See Rx Instructions subcut DAILY 07/12/21 unit/mL(3 mL) subcut pen (Humulin 30 days #24 mL R U-500 (Conc) Insulin Kwikpen) sitagliptin 100 mg tablet (Januvia) 100 mg PO DAILY 30 days #30 tabs 07/12/21 metoclopramide HCl 5 mg tablet 5 mg PO BEDTIME #30 tabs 07/31/21 cyclobenzaprine 10 mg tablet 10 mg PO TID PRN muscle spasm #10 08/07/21 tabs lidocaine 5 % topical patch 1 patch topical DAILY #15 ea 08/07/21 (Lidoderm) doxycycline monohydrate 100 mg 100 mg PO BID #14 caps 10/20/21 capsule prednisone 20 mg tablet 40 mg PO DAILY #10 tabs 10/20/21 Allergies Allergy/AdvReac Type Severity Reaction Status Date / Time No Known Allergies Allergy Verified 09/26/21 13:41 [No Known Allergies*] Review of Systems Constitutional: Constitutional: Reports no additional constitutional complaints ENT: Reports system reviewed and no additional complaints, except as documented Cardiovascular: Cardiovascular: Reports no additional cardiovascular complaints Psychiatric: Psychiatric: Reports no additional psychiatric complaints PMFSH Past Medical History Medical History Anemia Anxiety Asthma Chest pain Chronic pain syndrome Depression 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, uncontrolled Diabetic nephropathy associated with type 2 diabetes mellitus Dyslipidemia Family history of colon cancer Fibromyalgia Gastroparesis Genu valgum GERD (gastroesophageal reflux disease) Hemorrhoids HTN (hypertension) 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 due to insulin Hypothyroidism Inappropriate sinus tachycardia Insomnia 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 Low back pain Lumbar spondylosis Migraine Morbid obesity Obesity Obesity due to excess calories Obstructive sleep apnea on CPAP Palpitations Paranoia (psychosis) Patella-femoral syndrome Patellofemoral arthritis Sacroiliitis Scoliosis of thoracolumbar spine Sinus tachycardia 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 Paternal Aunt Stomach cancer Sister Stomach cancer Sister Uterine cancer Social History Social History Household Members: Children Alcohol intake: current Alcohol intake frequency: does not drink Patient Tobacco Use Status: Never used Tobacco Second Hand Smoke Exposure: No Advance Directives: No Advance Directives Information Provided: Yes Current occupational status: other Current occupation: lt handed Sexual orientation: Straight/Heterosexual Gender identity: Female Physical Exam Vital Signs: Vital Signs: Last Vital Signs Temp 97.2 F 10/20/21 13:35 Pulse 80 10/20/21 13:35 Resp 18 10/20/21 13:35 BP 148/87 H 10/20/21 13:35 Pulse Ox 95 10/20/21 13:35 O2 Del Method 10/20/21 13:35 BMI result Body Mass Index 44.9 Const: General: cooperative HEENT: Head: Yes normal to inspection and Yes No palpable skull fracture present General nose exam: Normal external nose present Face and sinus: Yes normal facial exam Mouth: Normal oral and palatal mucosa present Neck: Neck: Yes normal visual inspection, Yes full ROM and Yes no lymphadenopathy Chest: Chest palpation & inspection: normal inspection of the chest Resp: Effort & Inspection: normal respiratory effort Auscultation: other (minimal wheezing) Cardio: Jugular venous distension: no JVD Rate: regular rate Rhythm: regular rhythm GI: Inspection: Yes normal to inspection Palpation (GI): Soft to palpation, not firm, nontender and no guarding Auscultation: normal bowel sounds Course Reevaluation(s) Reevaluation #1: She is feeling much better, labs are within normal limit, chest x-ray no pneumonia; lungs are now clear will discharge him home on prednisone and p.o. doxycycline MDM - Asthma Lab Data Result diagrams: 10/20/21 12:23 10/20/21 12:23 Labs: Lab Results 10/20/21 10/20/21 10/20/21 Range/Units 10:22 11:38 12:17 WBC (4.8-10.8) X10*3/uL RBC (4.20-5.50) X10*6/uL Hgb (12.0-16.0) g/dl Hct (37.0-47.0) % MCV (80.0-98.0) fL MCH (27.0-33.0) pg MCHC (31.0-35.0) g/dl RDW (11.0-16.0) % Plt Count (160-400) X10*3/uL MPV (9.4-12.3) fL Immature Gran % (Auto) (0.0-0.4) % Neut % (Auto) (45-73) % Lymph % (Auto) (20-40) % [place] % (Auto) (2-11) % Eos % (Auto) (0-4) % Baso % (Auto) (0-2) % Lymph # (Auto) (1.2-4.9) X10*3/uL [place] # (Auto) (0.1-1.2) X10*3/uL Eos # (Auto) (0.0-0.4) X10*3/uL Baso # (Auto) (0.0-0.2) X10*3/uL Abs Immat Gran (auto) (0.00-0.03) X10*3/uL Absolute Neuts (auto) (2.0-8.3) x10*3/uL Absolute Nucleated RBC (0.0-0.012) X10*3/uL Nucleated RBC % (auto) (0.0-0.2) /100WBC Sodium (135-145) mmol/L Potassium (3.3-5.1) mmol/L Chloride (96-108) mmol/L Carbon Dioxide (22-29) mmol/L Anion Gap (12-20) BUN (9-16) mg/dL Creatinine (0.5-1.4) mg/dL Estim Creat Clear Calc Estimated GFR POC Glucose 58 L* 101 (60-115) mg/dL Random Glucose (60-115) mg/dL Calcium (8.4-10.2) mg/dL Total Bilirubin (0.0-1.0) mg/dL AST (5-31) U/L ALT (0-31) U/L Alkaline Phosphatase (39-117) U/L Troponin I High Sens (<3.5-17.0) ng/L B-Natriuretic Peptide (<100) pg/mL Total Protein (6.5-8.0) g/dL Albumin (3.5-5.0) g/dL COVID-19 ([facility]) Negative (Negative) COVID-19 Clin Com See Note 10/20/21 10/20/21 10/20/21 Range/Units 12:23 12:23 12:23 WBC 9.4 (4.8-10.8) X10*3/uL RBC 4.10 L (4.20-5.50) X10*6/uL Hgb 10.5 L (12.0-16.0) g/dl Hct 35.5 L (37.0-47.0) % MCV 86.6 (80.0-98.0) fL MCH 25.6 L (27.0-33.0) pg MCHC 29.6 L (31.0-35.0) g/dl RDW 16.1 H (11.0-16.0) % Plt Count 284 (160-400) X10*3/uL MPV 10.0 (9.4-12.3) fL Immature Gran % (Auto) 0.4 (0.0-0.4) % Neut % (Auto) 61.2 (45-73) % Lymph % (Auto) 29.2 (20-40) % [place] % (Auto) 6.5 (2-11) % Eos % (Auto) 2.4 (0-4) % Baso % (Auto) 0.3 (0-2) % Lymph # (Auto) 2.8 (1.2-4.9) X10*3/uL [place] # (Auto) 0.6 (0.1-1.2) X10*3/uL Eos # (Auto) 0.2 (0.0-0.4) X10*3/uL Baso # (Auto) 0.0 (0.0-0.2) X10*3/uL Abs Immat Gran (auto) 0.04 H (0.00-0.03) X10*3/uL Absolute Neuts (auto) 5.8 (2.0-8.3) x10*3/uL Absolute Nucleated RBC 0.000 (0.0-0.012) X10*3/uL Nucleated RBC % (auto) 0.0 (0.0-0.2) /100WBC Sodium 145 (135-145) mmol/L Potassium 3.6 (3.3-5.1) mmol/L Chloride 106 (96-108) mmol/L Carbon Dioxide 28 (22-29) mmol/L Anion Gap 15 (12-20) BUN 9 (9-16) mg/dL Creatinine 0.65 (0.5-1.4) mg/dL Estim Creat Clear Calc 134.3 Estimated GFR > 60 POC Glucose (60-115) mg/dL Random Glucose 111 (60-115) mg/dL Calcium 9.0 (8.4-10.2) mg/dL Total Bilirubin 0.3 (0.0-1.0) mg/dL AST 22 D (5-31) U/L ALT 16 (0-31) U/L Alkaline Phosphatase 126 H (39-117) U/L Troponin I High Sens < 3.5 (<3.5-17.0) ng/L B-Natriuretic Peptide (<100) pg/mL Total Protein 7.6 (6.5-8.0) g/dL Albumin 3.7 (3.5-5.0) g/dL COVID-19 ([facility]) (Negative) COVID-19 Clin Com 10/20/21 Range/Units 12:23 WBC (4.8-10.8) X10*3/uL RBC (4.20-5.50) X10*6/uL Hgb (12.0-16.0) g/dl Hct (37.0-47.0) % MCV (80.0-98.0) fL MCH (27.0-33.0) pg MCHC (31.0-35.0) g/dl RDW (11.0-16.0) % Plt Count (160-400) X10*3/uL MPV (9.4-12.3) fL Immature Gran % (Auto) (0.0-0.4) % Neut % (Auto) (45-73) % Lymph % (Auto) (20-40) % [place] % (Auto) (2-11) % Eos % (Auto) (0-4) % Baso % (Auto) (0-2) % Lymph # (Auto) (1.2-4.9) X10*3/uL [place] # (Auto) (0.1-1.2) X10*3/uL Eos # (Auto) (0.0-0.4) X10*3/uL Baso # (Auto) (0.0-0.2) X10*3/uL Abs Immat Gran (auto) (0.00-0.03) X10*3/uL Absolute Neuts (auto) (2.0-8.3) x10*3/uL Absolute Nucleated RBC (0.0-0.012) X10*3/uL Nucleated RBC % (auto) (0.0-0.2) /100WBC Sodium (135-145) mmol/L Potassium (3.3-5.1) mmol/L Chloride (96-108) mmol/L Carbon Dioxide (22-29) mmol/L Anion Gap (12-20) BUN (9-16) mg/dL Creatinine (0.5-1.4) mg/dL Estim Creat Clear Calc Estimated GFR POC Glucose (60-115) mg/dL Random Glucose (60-115) mg/dL Calcium (8.4-10.2) mg/dL Total Bilirubin (0.0-1.0) mg/dL AST (5-31) U/L ALT (0-31) U/L Alkaline Phosphatase (39-117) U/L Troponin I High Sens (<3.5-17.0) ng/L B-Natriuretic Peptide 132 H (<100) pg/mL Total Protein (6.5-8.0) g/dL Albumin (3.5-5.0) g/dL COVID-19 ([facility]) (Negative) COVID-19 Clin Com Imaging Data Chest x-ray: Radiologist's impression: EXAMINATION: XR CHEST CLINICAL INFORMATION: Shortness of breath. COMPARISON: 05/19/2021 chest radiographs. TECHNIQUE: 2 views of the chest were obtained. FINDINGS: Mild increased pulmonary vascular markings are seen. Mild linear markings are seen at the left lung base. There are no pleural effusions. The heart is mildly enlarged. The mediastinal structures are unremarkable. XR/XR chest 2V IMPRESSION: Mild prominence of the pulmonary vasculature may be projectional, but mild congestion cannot be excluded. Dictated By: Hermilo Black MD Signed By: <Electronically signed by Hermilo Black MD in [place]> 10/20/21 1021 DD/ 0952 ECG Data Attestation: I personally reviewed and interpreted this ECG as follows: ECG interpretation time: 09:51 Pacemaker model: NSR [address]-t changes Discharge Plan Discharge Clinical Impression: Asthma exacerbation, Asthma with acute exacerbation Patient Disposition: Home, Self-Care Instructions: Asthma (ED) Additional Instructions: Follow-up with your primary care physician return if you worse, we will give you a few days of prednisone but monitor your blood sugar while on prednisone because can increase your blood blood sugar. Return if you worse ,if fever ,if shortness of breath ,any concern Prescriptions: New prednisone 20 mg tablet 40 mg PO DAILY Qty: 10 0RF doxycycline monohydrate 100 mg capsule 100 mg PO BID Qty: 14 0RF No Action (DME) FreeStyle Lite Strips Strip See Rx Instructions .MEDSUPPLY Qty: 150 11RF Rx Instructions: 5 times a day (DME) lancets [TRUEplus Lancets] 33 gauge misc See Rx Instructions .ROUTE .MEDSUPPLY Qty: 120 11RF Rx Instructions: 4 times a day (DME) pen needle, diabetic [BD Usha 2nd Gen Pen Needle] 32 gauge x 5/32 needle See Rx Instructions .MEDSUPPLY Qty: 100 11RF Rx Instructions: Twice a day propranolol 80 mg tablet 80 mg PO BID 90 Days Qty: 180 3RF Baqsimi 3 mg/actuation spray,non-aerosol 3 mg intranasal ONCE 30 Days Qty: 4 6RF Rx Instructions: [place] once for severe hypoglycemia when patient cannot self-treat with glucose. Afterwards turn on side. May repeat after 15 minutes if patient does not respond. gabapentin 400 mg capsule 400 mg PO TID Qty: 270 1RF metformin 500 mg tablet 1,000 mg PO BID 90 Days Qty: 360 1RF metoclopramide HCl 5 mg tablet 5 mg PO BEDTIME Qty: 30 6RF cyclobenzaprine 10 mg tablet 10 mg PO TID PRN (Reason: muscle spasm) Qty: 10 0RF lidocaine [Lidoderm] 5 % adhesive patch,medicated 1 patch topical DAILY Qty: 15 0RF Rx Instructions: leave on most painful area for up to 12 hrs risperidone 2 mg tablet 2 mg PO DAILY clonidine HCl 0.1 mg tablet 0.1 mg PO BEDTIME rosuvastatin [Crestor] 20 mg tablet 20 mg PO DAILY thiamine HCl (vitamin B1) 100 mg tablet 100 mg PO DAILY levothyroxine 112 mcg tablet 112 mcg PO DAILY ferrous sulfate 325 mg (65 mg iron) tablet 325 mg PO DAILY clonazepam 1 mg tablet 1 mg PO TID valsartan 160 mg tablet 160 mg PO DAILY naproxen 500 mg tablet 500 mg PO BID omeprazole 20 mg capsule,delayed release(DR/EC) 20 mg PO DAILY nortriptyline 75 mg capsule 150 mg PO BEDTIME melatonin 5 mg tablet 5 - 10 mg PO BEDTIME PRN hydrochlorothiazide 25 mg tablet 25 mg PO QAM ergocalciferol (vitamin D2) 1,250 mcg (50,000 unit) capsule 1,250 mcg PO QWEEK cyanocobalamin (vitamin B-12) 1,000 mcg/mL solution 1,000 mcg IM aspirin 81 mg tablet,delayed release (DR/EC) 81 mg PO QAM ibuprofen 800 mg tablet 800 mg PO TID oxybutynin chloride 10 mg tablet extended release 24hr 10 mg PO QAM Flovent HFA 110 mcg/actuation HFA aerosol inhaler 1 puff PO BID albuterol sulfate [ProAir HFA] 90 mcg/actuation HFA aerosol inhaler 2 puff PO Q4-6H PRN (Reason: asthma) alcohol swabs [Alcohol Prep Pads] Pads, Medicated topical BID albuterol sulfate 2.5 mg /3 mL (0.083 %) solution for nebulization inhalation Q4-6H PRN (Reason: asthma) aripiprazole 15 mg tablet 5 mg PO QAM docusate sodium 100 mg capsule 100 mg PO cholecalciferol (vitamin D3) 50 mcg (2,000 unit) capsule 50 mcg PO QAM Januvia 100 mg tablet 100 mg PO DAILY 30 Days Qty: 30 6RF glucose [Dex4 Glucose] 4 gram tablet,chewable 12 g PO Q15M PRN (Reason: hypoglycemia) Qty: 60 6RF Rx Instructions: until symptoms of low blood sugar are controlled Humulin R U-500 (Conc) Kwikpen 500 unit/mL (3 mL) insulin pen See Rx Instructions subcut DAILY 30 Days Qty: 24 5RF Rx Instructions: 145 units with breakfast and 125 units with dinner subcut daily; losartan 100 mg tablet 100 mg PO DAILY Interventions: ED Discharge Assessment Last Done: 10/20/21 13:44 Discharge Date/Time: 10/20/21 13:44
[2021-10-20 10:46] LABS: COVID-19 Test Negative (Negative)
[2021-10-20 11:42] LABS: Glucose, Whole Blood 58 mg/dL (60-115)
[2021-10-20 12:23] LABS: Glucose, Whole Blood 101 mg/dL (60-115)
--- NOTE | 2021-10-20 12:26 | PC.NURSE ---
Patients POC 58. Given snack and MD aware. Upon recheck patients POC 101.
[2021-10-20 12:28] LABS: MANUAL DIFF FLAG NO
[2021-10-20 12:30] LABS: Basophils Percent Auto 0.3 % (0-2); Eosinophils Absolute Auto 0.2 X10*3/uL (0.0-0.4); Eosinophils Percent Auto 2.4 % (0-4); Hematocrit 35.5 % (37.0-47.0); Hemoglobin 10.5 g/dl (12.0-16.0); Imm Gran Abs Auto 0.04 X10*3/uL (0.00-0.03); Imm Gran Pct Auto 0.4 % (0.0-0.4); Lymphocytes Absolute Auto 2.8 X10*3/uL (1.2-4.9); Lymphocytes Percent Auto 29.2 % (20-40); Mean Corpuscular HGB Conc 29.6 g/dl (31.0-35.0); Mean Corpuscular Hemoglobin 25.6 pg (27.0-33.0); Mean Corpuscular Volume 86.6 fL (80.0-98.0); Monocytes Absolute Auto 0.6 X10*3/uL (0.1-1.2); Monocytes Percent Auto 6.5 % (2-11); Neutrophils Absolute Auto 5.8 x10*3/uL (2.0-8.3); Neutrophils Percent Auto 61.2 % (45-73); Platelet Count 284 X10*3/uL (160-400); Red Cell Distribution Width 16.1 % (11.0-16.0); White Blood Count 9.4 X10*3/uL (4.8-10.8)
[2021-10-20 12:45] LABS: Alanine Aminotransferase 16 U/L (0-31); Albumin Level 3.7 g/dL (3.5-5.0); Alkaline Phosphatase 126 U/L (39-117); Anion Gap 15 (12-20); Aspartate Amino Transferase 22 U/L (5-31); Bilirubin Total 0.3 mg/dL (0.0-1.0); Blood Urea Nitrogen 9 mg/dL (9-16); Carbon Dioxide 28 mmol/L (22-29); Chloride 106 mmol/L (96-108); Creatinine Clr Calc Pharmacy 134.3; Estimated Glomerular Filt Rate > 60; Glucose Random 111 mg/dL (60-115); Potassium 3.6 mmol/L (3.3-5.1); Sodium 145 mmol/L (135-145); Total Protein 7.6 g/dL (6.5-8.0)
[2021-10-20 12:51] LABS: B Type Natriuretic Peptide 132 pg/mL (<100)
[2021-10-20 12:52] LABS: Troponin-I High Sensitivity < 3.5 ng/L (<3.5-17.0)
[2021-10-20] MEDS: predniSONE 20 MG TABLET 60 MG PO (13:34)
[2021-10-20 13:35] VITALS: BP 148/87; PULSE 80; RESP 18; TEMP 36.2; O2SAT 95
== END 2021-10-20 13:44 | disposition home or self-care (01) ==
PROVIDERS: Emergency Provider Emergency Medicine; PCP Family Medicine
DX: J45.901 Unspecified asthma with (acute) exacerbation (principal); R06.02 Shortness of breath; Z20.822 Contact with and (suspected) exposure to COVID-19; Z79.899 Other long term (current) drug therapy
CPT/HCPCS: 36415; 71046; 80053; 82947; 83880; 84484; 85025; 87635; 93005; 99284

== ENCOUNTER 2021-10-23 04:07 | Inpatient (IN) | payer MEDICAID, SELFPAY ==
[2021-10-23] VITALS (14 sets, daily range): BP systolic 124–150; BP diastolic 60–90; PULSE 78–108; RESP 17–37; TEMP 36.8; O2SAT 93–100; BMI 42.3
--- NOTE | 2021-10-23 | ECG_ITS ---
Test Reason : SOB Blood Pressure : / mmHG Vent. Rate : 078 BPM Atrial Rate : 078 BPM P-R Int : 134 ms QRS Dur : 100 ms QT Int : 372 ms P-R-T Axes : 033 032 016 degrees QTc Int : 424 ms Normal sinus rhythm Nonspecific T wave abnormality Abnormal ECG When compared with ECG of 23-OCT-2021 05:01, No significant change was found Referred By: Sully Silverman Electronically Signed By:MARY RIVERS
--- NOTE | ~2021-10-23 | XR_ITS ---
EXAMINATION: XR CHEST CLINICAL INFORMATION: Rule out pneumonia, pain COMPARISON: 10/20/2021 TECHNIQUE: Frontal view of the chest was obtained. FINDINGS: Lung volumes are symmetric. There are a few areas of patchy opacity at the lung bases as well as mild diffuse interstitial prominence. No evidence of pneumothorax or significant pleural effusion. Cardiac silhouette remains borderline enlarged. No acute osseous findings are seen. XR/XR chest 1V IMPRESSION: Mild diffuse interstitial prominence suggesting vascular congestion and subtle interstitial edema. Few patchy opacities at the lung bases raising the possibility of developing consolidation/pneumonia in the proper clinical setting. Short-term radiographic follow-up would be helpful.
--- NOTE | ~2021-10-23 | CT_ITS ---
EXAMINATION: CT CHEST WITHOUT CONTRAST CLINICAL INFORMATION: Interstitial edema or scrotal COMPARISON: Previous chest x-ray from earlier the same day TECHNIQUE: Multidetector volumetric CT imaging of the chest was done. Axial MIP volume rendering provided. Sagittal and coronal reformatted images were obtained. This CT examination was performed using dose optimization techniques as appropriate, variously including the following: *Automated exposure control *Adjustment of mA and/or kV according to patient size (this includes techniques or standardized protocols for targeted exams where dose is matched to indication/reason for exam; i.e. extremities or head) *Use of iterative reconstruction technique DLP: 384 mGy-cm FINDINGS: LAUNDRY ROUTE DRIVER: LUNGS: There is minimal linear subsegmental atelectasis at the lung bases. There is atelectasis or small infiltrates in the bilateral lower lobes. The lungs are otherwise clear. No evidence of pulmonary edema is seen. MEDIASTINUM: The heart is upper normal in size. No pericardial effusion. No coronary artery calcification. 1 x 1.6 cm left thyroid nodule. Small mediastinal lymph nodes are normal caliber thoracic aorta. PLEURA: Tiny right pleural effusion. AXILLA: No lymphadenopathy. UPPER ABDOMEN: Low-attenuation liver suggestive of fatty infiltration. OSSEOUS STRUCTURES: Degenerative changes of the spine. CT/CT chest wo con IMPRESSION: Atelectasis or small infiltrates in the bilateral lower lobes. No evidence of CHF/pulmonary edema. Fatty liver. Fleischner guidelines were followed.
--- NOTE | 2021-10-23 04:16 | ED.SOB ---
HPI - SOB/Dyspnea General Chief Complaint: Asthma Stated Complaint: DIFFICULTY BREATHING Time Seen by Provider: 10/23/21 04:09 Source: patient and EMS Mode of arrival: EMS Limitations: other (Shortness of breath) History of Present Illness HPI Narrative: Patient comes to the emergency room complaining of shortness of breath. Patient states she has history of asthma, has been evaluated here multiple times for asthma. Patient states that for the last 24 hours, she has been using her albuterol without any relief. EMS reports that the patient was saturating 92% on room air, if patient got up and walked, oxygen saturation dropped to the mid 80s. EMS gave the patient 1 dose of Solu-Medrol IV and 1 DuoNeb. Related Data Home Medications Medication Instructions Recorded Confirmed clonidine HCl 0.1 mg tablet 0.1 mg PO BEDTIME 11/30/19 09/30/21 ferrous sulfate 325 mg (65 mg 325 mg PO DAILY 11/30/19 09/30/21 iron) tablet levothyroxine 112 mcg tablet 112 mcg PO DAILY 11/30/19 09/30/21 rosuvastatin 20 mg tablet (Crestor) 20 mg PO DAILY 11/30/19 09/30/21 thiamine HCl (vitamin B1) 100 mg 100 mg PO DAILY 11/30/19 09/30/21 tablet risperidone 2 mg tablet 2 mg PO DAILY 07/02/20 09/30/21 albuterol sulfate 2.5 mg/3 mL mg inhalation Q4-6H PRN asthma 01/01/21 09/30/21 (0.083 %) solution for nebulization albuterol sulfate 90 mcg/actuation 2 puff PO Q4-6H PRN asthma 01/01/21 09/30/21 aerosol inhaler (ProAir HFA) alcohol swabs (Alcohol Prep Pads) pad topical BID 01/01/21 09/30/21 aspirin 81 mg tablet,delayed 81 mg PO QAM 01/01/21 09/30/21 release cyanocobalamin (vitamin B-12) 1,000 mcg IM 01/01/21 09/30/21 1,000 mcg/mL injection solution ergocalciferol (vitamin D2) 1,250 1,250 mcg PO QWEEK 01/01/21 09/30/21 mcg (50,000 unit) capsule fluticasone propionate 110 1 puff PO BID 01/01/21 09/30/21 mcg/actuation HFA aerosol inhaler (Flovent HFA) hydrochlorothiazide 25 mg tablet 25 mg PO QAM 01/01/21 09/30/21 ibuprofen 800 mg tablet 800 mg PO TID 01/01/21 09/30/21 melatonin 5 mg tablet 5 - 10 mg PO BEDTIME PRN 01/01/21 09/30/21 nortriptyline 75 mg capsule 150 mg PO BEDTIME 01/01/21 09/30/21 oxybutynin chloride 10 mg 10 mg PO QAM 01/01/21 09/30/21 tablet,extended release 24 hr aripiprazole 15 mg tablet 5 mg PO QAM 05/07/21 09/30/21 clonazepam 1 mg tablet 1 mg PO TID 05/07/21 09/30/21 naproxen 500 mg tablet 500 mg PO BID 05/07/21 09/30/21 omeprazole 20 mg capsule,delayed 20 mg PO DAILY 05/07/21 09/30/21 release valsartan 160 mg tablet 160 mg PO DAILY 05/07/21 09/30/21 losartan 100 mg tablet 100 mg PO DAILY 05/23/21 09/30/21 cholecalciferol (vitamin D3) 50 50 mcg PO QAM 07/12/21 09/30/21 mcg (2,000 unit) capsule docusate sodium 100 mg capsule 100 mg PO 09/26/21 09/30/21 Previous Rx's Medication Instructions Recorded blood sugar diagnostic (FreeStyle #150 ea 11/19/20 Lite Strips) TRUEplus Lancets 33 gauge (lancets) #120 ea 01/10/21 pen needle, diabetic 32 gauge x #100 ea 02/04/21 (BD Usha 2nd Gen Pen Needle) propranolol 80 mg tablet 80 mg PO BID 90 days #180 tabs 05/20/21 glucagon 3 mg/actuation nasal 3 mg intranasal ONCE unresponsive 05/30/21 spray (Baqsimi) hypoglycemia 30 days #4 ea gabapentin 400 mg capsule 400 mg PO TID #270 caps 06/10/21 metformin 500 mg tablet 1,000 mg PO BID 90 days #360 tabs 06/13/21 glucose 4 gram chewable tablet 12 g PO Q15M PRN hypoglycemia #60 07/12/21 (Dex4 Glucose) tabs insulin regular hum U-500 conc 500 See Rx Instructions subcut DAILY 07/12/21 unit/mL(3 mL) subcut pen (Humulin 30 days #24 mL R U-500 (Conc) Insulin Kwikpen) sitagliptin 100 mg tablet (Januvia) 100 mg PO DAILY 30 days #30 tabs 07/12/21 metoclopramide HCl 5 mg tablet 5 mg PO BEDTIME #30 tabs 07/31/21 cyclobenzaprine 10 mg tablet 10 mg PO TID PRN muscle spasm #10 08/07/21 tabs lidocaine 5 % topical patch 1 patch topical DAILY #15 ea 08/07/21 (Lidoderm) doxycycline monohydrate 100 mg 100 mg PO BID #14 caps 10/20/21 capsule prednisone 20 mg tablet 40 mg PO DAILY #10 tabs 10/20/21 Allergies Allergy/AdvReac Type Severity Reaction Status Date / Time No Known Allergies Allergy Verified 09/26/21 13:41 [No Known Allergies*] Review of Systems Review of Systems: Constitutional : No Weight loss, No Fever, No Chills, No Night Sweats, No Fatigue, No Malaise ENT/Mouth : No Hearing loss, No Ear Pain, No Nasal Congestion, No Sinus Pain, No Hoarseness, No sore throat, No Rhinorrhea, No Swallowing Difficulty Eyes: No Eye Pain, No Swelling, No Redness, No Foreign Body, No Discharge, No Vision Changes Cardiovascular : No Chest Pain, No SOB, No Dyspnea on Exertion, No Orthopnea, No Edema, No Palpitations Respiratory : Patient complaining of coughing, wheezing and dyspnea Gastrointestinal : No Nausea, No Vomiting, No Diarrhea, No Constipation, No abdominal Pain, No Hematochezia, No Melena Genitourinary : no irregular bleeding, No Dysuria, No Urinary Frequency, No Hematuria, No Urinary Incontinence, No Urgency, No Flank Pain, No Urinary Flow Changes, No Hesitancy Musculoskeletal : No joint pain, No Myalgias, No Joint Swelling Skin : No Skin Lesions, No rash Neuro : No Weakness, No Numbness, No Paresthesias, No Loss of Consciousness, No Dizziness, No Headache Psych : No Anxiety/Panic, No Depression, No SI/HI/AH/VH, No Social Issues, Heme/Lymph: No Bruising, No Bleeding,No Lymphadenopathy Endocrine : No Polyuria, No Polydipsia, No Temperature Intolerance [facility] Past Medical History Medical History Anemia Anxiety Asthma Chest pain Chronic pain syndrome Depression 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, uncontrolled Diabetic nephropathy associated with type 2 diabetes mellitus Dyslipidemia Family history of colon cancer Fibromyalgia Gastroparesis Genu valgum GERD (gastroesophageal reflux disease) Hemorrhoids HTN (hypertension) 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 due to insulin Hypothyroidism Inappropriate sinus tachycardia Insomnia care home (current) use of insulin Low back pain Lumbar spondylosis Migraine Morbid obesity Obesity Obesity due to excess calories Obstructive sleep apnea on CPAP Palpitations Paranoia (psychosis) Patella-femoral syndrome Patellofemoral arthritis Sacroiliitis Scoliosis of thoracolumbar spine Sinus tachycardia 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 Paternal Aunt Stomach cancer Sister Stomach cancer Sister Uterine cancer Social History Social History Household Members: Children Alcohol intake: current Alcohol intake frequency: does not drink Patient Tobacco Use Status: Never used Tobacco Second Hand Smoke Exposure: No Advance Directives: No Advance Directives Information Provided: Yes Current occupational status: other Current occupation: lt handed Sexual orientation: Straight/Heterosexual Gender identity: Female Physical Exam Vital Signs: Vital Signs: Last Vital Signs Pulse 80 10/23/21 06:39 Resp 34 H 10/23/21 06:39 BP 140/90 H 10/23/21 06:39 Pulse Ox 96 10/23/21 06:39 O2 Del Method 10/23/21 06:39 FiO2 100 10/23/21 04:19 Oxygen Flow Rate 20 10/23/21 04:19 BMI result Body Mass Index 42.3 Course Course Course Narrative: Patient receiving now months, nebulization treatments, magnesium. Labs and x-rays pending. Shortly after her arrival, patient started having significant shortness of breath, oxygen saturation dropped to 55% on nasal cannula. Patient was switched to non-rebreather mask at 15 L, oxygen saturation improved to the low 70s, while we were getting the CPAP ready. Once the CPAP was started, patient's oxygen saturation improved to 100% and respiratory rate dropped. Patient currently getting multiple our long nebs. Patient is somnolent but easily arousable, opens her eyes on command, states that she is feeling better Patient's white blood cell count is elevated. Patient was seen here on October 20, patient has been taking prednisone daily, likely contributing to the elevated white blood cell count. The elevated lactic acid is likely secondary to multiple nebulization treatments in the last couple of days. At 06:15, the BiPAP was taken off. Patient states that she feels much better. Patient requested to have the BiPAP on for half more hour. Oxygen saturation was 94% on 5 L nasal cannula. I discussed the patient with Dr. Jackson, patient will be taken off BiPAP at 07:00. Patient was doing well without BiPAP on a nasal cannula at 5 L 45 minutes ago. Patient remains in the ED, sign-out given to Dr. Dominguez. MDM - SOB/Dyspnea Lab Data Result diagrams: 10/23/21 04:54 10/23/21 04:54 Labs: Lab Results 10/23/21 10/23/21 10/23/21 Range/Units 04:37 04:54 04:54 WBC 16.4 H (4.8-10.8) X10*3/uL RBC 4.27 (4.20-5.50) X10*6/uL Hgb 11.0 L (12.0-16.0) g/dl Hct 37.4 (37.0-47.0) % MCV 87.6 (80.0-98.0) fL MCH 25.8 L (27.0-33.0) pg MCHC 29.4 L (31.0-35.0) g/dl RDW 16.5 H (11.0-16.0) % Plt Count 363 D (160-400) X10*3/uL MPV 9.7 (9.4-12.3) fL Immature Gran % (Auto) 0.7 H (0.0-0.4) % Neut % (Auto) 52.8 (45-73) % Lymph % (Auto) 38.5 (20-40) % [place] % (Auto) 6.6 (2-11) % Eos % (Auto) 1.1 (0-4) % Baso % (Auto) 0.3 (0-2) % Lymph # (Auto) 6.3 H (1.2-4.9) X10*3/uL [place] # (Auto) 1.1 (0.1-1.2) X10*3/uL Eos # (Auto) 0.2 (0.0-0.4) X10*3/uL Baso # (Auto) 0.1 (0.0-0.2) X10*3/uL Abs Immat Gran (auto) 0.11 H (0.00-0.03) X10*3/uL Absolute Neuts (auto) 8.7 H (2.0-8.3) x10*3/uL Absolute Nucleated RBC 0.020 H (0.0-0.012) X10*3/uL Nucleated RBC % (auto) 0.1 (0.0-0.2) /100WBC Smear Tech's Comments VERIFIED VBG pH (7.32-7.43) VBG pCO2 mmHg VBG pO2 mmHg VBG HCO3 (22-26) mmol/L VBG O2 Saturation % VBG Base Excess mmol/L Sodium 148 H (135-145) mmol/L Potassium 3.5 (3.3-5.1) mmol/L Chloride 107 (96-108) mmol/L Carbon Dioxide 26 (22-29) mmol/L Anion Gap 19 (12-20) BUN 13 (9-16) mg/dL Creatinine 0.76 (0.5-1.4) mg/dL Estim Creat Clear Calc 122.5 Estimated GFR > 60 POC Glucose 90 (60-115) mg/dL Random Glucose 92 (60-115) mg/dL Lactic Acid (0.5-2.0) mmol/L Calcium 8.7 (8.4-10.2) mg/dL B-Natriuretic Peptide (<100) pg/mL COVID-19 ([facility]) (Negative) COVID-19 Clin Com 08/10/23/21 10/23/21 Range/Units 04:54 04:54 04:54 WBC (4.8-10.8) X10*3/uL RBC (4.20-5.50) X10*6/uL Hgb (12.0-16.0) g/dl Hct (37.0-47.0) % MCV (80.0-98.0) fL MCH (27.0-33.0) pg MCHC (31.0-35.0) g/dl RDW (11.0-16.0) % Plt Count (160-400) X10*3/uL MPV (9.4-12.3) fL Immature Gran % (Auto) (0.0-0.4) % Neut % (Auto) (45-73) % Lymph % (Auto) (20-40) % [place] % (Auto) (2-11) % Eos % (Auto) (0-4) % Baso % (Auto) (0-2) % Lymph # (Auto) (1.2-4.9) X10*3/uL [place] # (Auto) (0.1-1.2) X10*3/uL Eos # (Auto) (0.0-0.4) X10*3/uL Baso # (Auto) (0.0-0.2) X10*3/uL Abs Immat Gran (auto) (0.00-0.03) X10*3/uL Absolute Neuts (auto) (2.0-8.3) x10*3/uL Absolute Nucleated RBC (0.0-0.012) X10*3/uL Nucleated RBC % (auto) (0.0-0.2) /100WBC Smear Tech's Comments VBG pH (7.32-7.43) VBG pCO2 mmHg VBG pO2 mmHg VBG HCO3 (22-26) mmol/L VBG O2 Saturation % VBG Base Excess mmol/L Sodium (135-145) mmol/L Potassium (3.3-5.1) mmol/L Chloride (96-108) mmol/L Carbon Dioxide (22-29) mmol/L Anion Gap (12-20) BUN (9-16) mg/dL Creatinine (0.5-1.4) mg/dL Estim Creat Clear Calc Estimated GFR POC Glucose (60-115) mg/dL Random Glucose (60-115) mg/dL Lactic Acid 2.7 H* (0.5-2.0) mmol/L Calcium (8.4-10.2) mg/dL B-Natriuretic Peptide 116 H (<100) pg/mL COVID-19 ([facility]) Negative (Negative) COVID-19 Clin Com See Note 10/23/21 Range/Units 05:00 WBC (4.8-10.8) X10*3/uL RBC (4.20-5.50) X10*6/uL Hgb (12.0-16.0) g/dl Hct (37.0-47.0) % MCV (80.0-98.0) fL MCH (27.0-33.0) pg MCHC (31.0-35.0) g/dl RDW (11.0-16.0) % Plt Count (160-400) X10*3/uL MPV (9.4-12.3) fL Immature Gran % (Auto) (0.0-0.4) % Neut % (Auto) (45-73) % Lymph % (Auto) (20-40) % [place] % (Auto) (2-11) % Eos % (Auto) (0-4) % Baso % (Auto) (0-2) % Lymph # (Auto) (1.2-4.9) X10*3/uL [place] # (Auto) (0.1-1.2) X10*3/uL Eos # (Auto) (0.0-0.4) X10*3/uL Baso # (Auto) (0.0-0.2) X10*3/uL Abs Immat Gran (auto) (0.00-0.03) X10*3/uL Absolute Neuts (auto) (2.0-8.3) x10*3/uL Absolute Nucleated RBC (0.0-0.012) X10*3/uL Nucleated RBC % (auto) (0.0-0.2) /100WBC Smear Tech's Comments VBG pH 7.29 L (7.32-7.43) VBG pCO2 64 mmHg VBG pO2 59 mmHg VBG HCO3 31 H (22-26) mmol/L VBG O2 Saturation 79.0 % VBG Base Excess 3.0 mmol/L Sodium (135-145) mmol/L Potassium (3.3-5.1) mmol/L Chloride (96-108) mmol/L Carbon Dioxide (22-29) mmol/L Anion Gap (12-20) BUN (9-16) mg/dL Creatinine (0.5-1.4) mg/dL Estim Creat Clear Calc Estimated GFR POC Glucose (60-115) mg/dL Random Glucose (60-115) mg/dL Lactic Acid (0.5-2.0) mmol/L Calcium (8.4-10.2) mg/dL B-Natriuretic Peptide (<100) pg/mL COVID-19 ([facility]) (Negative) COVID-19 Clin Com Critical Care Time Critical Care Time Critical Care Time: Yes Total Critical Care Time: 90 Attestation: I have personally provided critical care time. Time includes review of lab data, radiology results, discussion with consultants, and monitoring for potential decompensation. Intervention performed as documented. Discharge Plan Discharge Clinical Impression: Asthma, Respiratory failure Patient Disposition: Admitted As Inpatient
[2021-10-23 04:41] LABS: Glucose, Whole Blood 90 mg/dL (60-115)
--- NOTE | 2021-10-23 04:47 | ECG_ITS ---
Test Reason : SOB Blood Pressure : / mmHG Vent. Rate : 000 BPM Atrial Rate : 000 BPM P-R Int : 000 ms QRS Dur : 000 ms QT Int : 000 ms P-R-T Axes : 000 000 000 degrees QTc Int : 000 ms No QRS complexes found, no ECG analysis possible When compared with ECG of 20-OCT-2021 09:33, Current undetermined rhythm precludes rhythm comparison, needs review Referred By: Sully Silverman Electronically Signed By:
[2021-10-23] MEDS: Albuterol Sulfate (0.083%) 2.5 MG/3 ML VIAL.NEB 10 MG INHALE (04:57)
[2021-10-23] MEDS: Magnesium Sulfate/H2O 2 GM/50 ML PIGGYBACK IV (04:57)
[2021-10-23 05:02] LABS: Basophils Absolute Auto 0.1 X10*3/uL (0.0-0.2); Basophils Percent Auto 0.3 % (0-2); Eosinophils Absolute Auto 0.2 X10*3/uL (0.0-0.4); Eosinophils Percent Auto 1.1 % (0-4); Hematocrit 37.4 % (37.0-47.0); Imm Gran Abs Auto 0.11 X10*3/uL (0.00-0.03); Imm Gran Pct Auto 0.7 % (0.0-0.4); Lymphocytes Absolute Auto 6.3 X10*3/uL (1.2-4.9); Lymphocytes Percent Auto 38.5 % (20-40); MANUAL DIFF FLAG SCAN; Mean Corpuscular HGB Conc 29.4 g/dl (31.0-35.0); Mean Corpuscular Hemoglobin 25.8 pg (27.0-33.0); Mean Corpuscular Volume 87.6 fL (80.0-98.0); Mean Platelet Volume 9.7 fL (9.4-12.3); Monocytes Absolute Auto 1.1 X10*3/uL (0.1-1.2); Monocytes Percent Auto 6.6 % (2-11); NRBC Pct Auto 0.1 /100WBC (0.0-0.2); Neutrophils Absolute Auto 8.7 x10*3/uL (2.0-8.3); Neutrophils Percent Auto 52.8 % (45-73); Platelet Count 363 X10*3/uL (160-400); Red Blood Count 4.27 X10*6/uL (4.20-5.50); Red Cell Distribution Width 16.5 % (11.0-16.0); SCAN SMEAR FLAG 1; White Blood Count 16.4 X10*3/uL (4.8-10.8)
[2021-10-23 05:04] LABS: Venous Blood Gas Refer to POC result
[2021-10-23 05:05] LABS: VBG HCO3 31 mmol/L (22-26); VBG pCO2 64 mmHg; VBG pH 7.29 (7.32-7.43); VBG pO2 59 mmHg
[2021-10-23 05:09] LABS: SLIDE REVIEW VERIFIED
--- NOTE | 2021-10-23 05:19 | PC.NURSE ---
Pt. c/o of SOB while duomed running. Sats began to drop, pt. becoming cyanotic. MD notified, respiratory notified. BIPAP in place 15/08 rate of 20L. Pt. sats now at 99.
[2021-10-23 05:20] LABS: Lactic Acid 2.7 mmol/L (0.5-2.0)
[2021-10-23 05:25] LABS: Anion Gap 19 (12-20); Blood Urea Nitrogen 13 mg/dL (9-16); Calcium 8.7 mg/dL (8.4-10.2); Carbon Dioxide 26 mmol/L (22-29); Chloride 107 mmol/L (96-108); Creatinine Clr Calc Pharmacy 122.5; Estimated Glomerular Filt Rate > 60; Glucose Random 92 mg/dL (60-115); Potassium 3.5 mmol/L (3.3-5.1); Sodium 148 mmol/L (135-145)
[2021-10-23 05:27] LABS: B Type Natriuretic Peptide 116 pg/mL (<100)
[2021-10-23 05:41] LABS: COVID-19 Test Negative (Negative)
[2021-10-23 06:59] LABS: Reflex Lactate? Lactic Acid Added
[2021-10-23] MEDS: Albuterol Sulfate (0.083%) 2.5 MG/3 ML VIAL.NEB INHALE (07:34)
--- NOTE | 2021-10-23 08:15 | PC.NURSE ---
pt is a/o x 4 ukrainian speaking. bipap d/c'd pt placed on 4.5l of n/c. pt isrrael cheeks greg. lungs isrrael upper - cta. isr[place] lower - diminshed. heart sounds - regular. abd obese, soft and n/t. pt aware of plan of care for admission to hosp.
[2021-10-23] MEDS: cefTRIAXone sodium 1 GM in 0.9 % Sodium Chloride 50 ML IV (08:17)
[2021-10-23] MEDS: Azithromycin 500 MG in 0.9 % Sodium Chloride 250 ML 125 MG IV (08:17)
[2021-10-23] MEDS: Furosemide 20 MG/2 ML VIAL IVPUSH ×2 (08:17→11:11)
[2021-10-23 08:34] LABS: Glucose, Whole Blood 91 mg/dL (60-115)
[2021-10-23 08:52] LABS: ~Lactic Acid-LAB USE ONLY 2.3 mmol/L (0.5-2.0)
--- NOTE | 2021-10-23 09:28 | PHA.MEDREC ---
Pharmacy Consult ? Medication Reconciliation Pharmacy has completed the medication reconciliation. Utilized educational interpreter services. Patient had a med list on them, but was not complete. Cross referenced all meds [facility] claim history and verified with patient. All meds checked out except prednisone and risperidone, which didn't have claim history to back up patient's testimony. However, patient confirmed they take such meds.
--- NOTE | 2021-10-23 09:40 | PC.NURSE ---
sade (michael) at bedside with oil expeller operator pt aware of plan of care.
--- NOTE | 2021-10-23 09:40 | PC.NURSE ---
pt has heplock #20 in r ac. heplock # 22 to l upper arm infilitrated.
[2021-10-23 10:30] LABS: Reflex Lactate? 2 Y
--- NOTE | 2021-10-23 10:43 | PC.NURSE ---
dr. quintanilla at bedside. pt aware of plan of care.
[2021-10-23] MEDS: clonazePAM 1 MG TABLET PO (11:31)
[2021-10-23] MEDS: Enoxaparin Sodium 40 MG/0.4 ML SYRINGE SUBCUT (11:31)
[2021-10-23] MEDS: methylPREDNISolone Sod Succ 125 MG/2 ML VIAL 60 MG IVPUSH ×2 (11:31→19:39)
--- NOTE | 2021-10-23 12:18 | PM.IMHP ---
History of Present Illness Date of Service: 10/23/21 Chief Complaint: acute asthma exacerbation, respiratory failure 56 year old female with history of mild persistent asthma, DINA on cpap, insulin dependent type 2 diabetes, hypothyroidism, anxiety/depression with psychosis, htn, hld, chronic low back pain, and morbid obesity presented to the ED this morning with shortness of breath, wheezing ongoing for 3 days. Seen earlier this week in the ED and given PO steroids but symptoms worsened this morning despite multiple albuterol usages so she called EMS. EMS reports that the patient was saturating 92% on room air, if patient got up and walked, oxygen saturation dropped to the mid 80s.? EMS gave the patient 1 dose of Solu-Medrol IV and 1 DuoNeb. In the ED, O2 sat dropped to 55% on NC and was placed on non-rebreather at 15L with improvement low 70s. She was placed on bipap until 7am with O2 sat improved to 94% on 5L NC. While in the ED, received IV magnesium, IV solumedrol, 2 albuterol nebulizers, and a duo neb. CXR showed mild diffuse interstitial prominence suggesting vascular congestion and subtle interstitial edema and few patchy opacities at the lung bases suggesting possibility of developing consolidation/pneumonia. There was a leukocytosis of 16.4. Lactic acid elevated at 2.7, 2.3 on recheck at 2hr, and 3.1 on recheck at 4hr. BNP slightly elevated at 116. Mild hypernatremia of 148. As a result of the interstitial edema, she received 2 doses of 20mg IV lasix. Started empiric therapy for pneumonia with azithromycin and ceftriaxone. The patient is reporting some improvement in sob. She does tell me she has had BLE edema for about 1 month. Did have echocardiogram with normal LV systolic fx and grade I diastolic dysfunction, mild mitral regurgitation, normal RVSP, no pericardial effusion. Has history of recurrent ED visits for asthma exacerbation with last hospitalization 3 years ago for asthma. Has never required intubation. Review of Systems Review of Systems: General: No fevers, malaise, unintentional weight loss Cardiovascular: +leg edema. No chest pain, palpitations Respiratory: +sob, +wheeze. No cough GI: No abdominal pain, nausea, vomiting, diarrhea, constipation, melena, hematochezia : No dysuria, hematuria, urgency Neuro: No headaches, weakness, paresthesias Skin: No rashes or lesions [facility] Medical History Anemia Anxiety Asthma Chest pain Chronic pain syndrome Depression 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, uncontrolled Diabetic nephropathy associated with type 2 diabetes mellitus Dyslipidemia Family history of colon cancer Fibromyalgia Gastroparesis Genu valgum GERD (gastroesophageal reflux disease) Hemorrhoids HTN (hypertension) 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 due to insulin Hypothyroidism Inappropriate sinus tachycardia Insomnia FPC (current) use of insulin Low back pain Lumbar spondylosis Migraine Morbid obesity Obesity Obesity due to excess calories Obstructive sleep apnea on CPAP Palpitations Paranoia (psychosis) Patella-femoral syndrome Patellofemoral arthritis Sacroiliitis Scoliosis of thoracolumbar spine Sinus tachycardia 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 Paternal Aunt Stomach cancer Sister Stomach cancer Sister Uterine cancer Surgical History H/O esophagogastroduodenoscopy History of arthroscopy of right knee History of bilateral carpal tunnel release History of bladder surgery History of colonoscopy History of tubal ligation Hx of section Hx of tonsillectomy Social History Household Members: Children Alcohol intake: never Patient Tobacco Use Status: Never used Tobacco Second Hand Smoke Exposure: No Use of substances other than those prescribed or required for medical reasons: No Advance Directives: No Advance Directives Information Provided: Yes Current occupational status: other Current occupation: lt handed Sexual orientation: Straight/Heterosexual Gender identity: Female Meds Allergies Allergy/AdvReac Type Severity Reaction Status Date / Time No Known Allergies Allergy Verified 09/26/21 13:41 [No Known Allergies*] Active Medications: Current Medications Albuterol Sulfate (Albuterol Sulfate 90 Mcg 8 Gm Inhaler) 2 puff INHALE Q4H PRN PRN Reason: asthma Albuterol/Ipratropium (Albuterol/Iprat 2.5/0.5mg 3 Ml Ampul.Neb) 3 ml INHALE RQ4H WHILE AWAKE [facility] Aripiprazole (Aripiprazole 20 Mg Tablet) 20 mg PO DAILY [facility] Aspirin (Aspirin Enteric Coated 81 Mg Tablet.) 81 mg PO DAILY [facility] Atorvastatin Calcium (Atorvastatin Calcium 80 Mg Tablet) 80 mg PO BEDTIME [facility] Clonazepam (Clonazepam 1 Mg Tablet) 1 mg PO TID PRN PRN Reason: Anxiety Last Admin: 10/23/21 11:31 Dose: 1 mg Clonidine HCl (Clonidine Hcl 0.1 Mg Tablet) 0.1 mg PO BEDTIME [facility]; Protocol Docusate Sodium (Docusate Sodium 100 Mg Capsule) 100 mg PO BID [facility] Enoxaparin Sodium (Enoxaparin Sodium 40 Mg/0.4 Ml Syringe) 40 mg SUBCUT Q24H [facility] Last Admin: 10/23/21 11:31 Dose: 40 mg Ferrous Sulfate (Ferrous Sulfate 324 Mg Tablet.) 324 mg PO Q48H [facility] Fluticasone Propionate (Fluticasone Propionate 100 Mcg Blst.W.Dev) 1 puff INHALE RBID [facility] Gabapentin (Gabapentin 400 Mg Capsule) 400 mg PO TID [facility] Hydrochlorothiazide (Hydrochlorothiazide 25 Mg Tablet) 25 mg PO DAILY [facility]; Protocol Hydroxyzine HCl (Hydroxyzine Hcl 25 Mg Tablet) 25 mg PO BEDTIME PRN PRN Reason: Anxiety Levothyroxine Sodium (Levothyroxine Sodium 125 Mcg Tablet) 125 mcg PO DAILY@0600 [facility] Melatonin (Melatonin 3 Mg Tablet) 6 mg PO BEDTIME PRN PRN Reason: Sleep Metformin HCl (Metformin Hcl 1,000 Mg Tablet) 1,000 mg PO BID [facility] Methylprednisolone Sodium Succinate (Methylprednisolone Sod Succ 125 Mg/2 Ml Vial) 60 mg IVPUSH Q8H [facility] Last Admin: 10/23/21 11:31 Dose: 60 mg Metoclopramide HCl (Metoclopramide Hcl 5 Mg Tablet) 5 mg PO BEDTIME [facility] Nortriptyline HCl (Nortriptyline Hcl 25 Mg Capsule) 50 mg PO BEDTIME [facility] Nortriptyline HCl (Nortriptyline Hcl 25 Mg Capsule) 75 mg PO BEDTIME [facility] Omeprazole (Omeprazole 20 Mg Capsule.) 20 mg PO DAILY@0630 [facility] Oxybutynin Chloride (Oxybutynin Chloride Er 5 Mg Tab.Er.24) 10 mg PO DAILY [facility] Pharmacy Consult (Consult Rx Perform Med Rec) 1 each MISCELLANE ONCE PRN PRN Reason: Consult order Propranolol HCl (Propranolol Hcl 40 Mg Tablet) 80 mg PO BID [facility]; Protocol Sitagliptin Phosphate (Sitagliptin Phosphate 100 Mg Tablet) 100 mg PO DAILY [facility] Sodium Chloride (0.9 % Sodium Chloride Flush 3 Ml Syringe) 3 ml IVFLUSH QSHIFT [facility] Thiamine HCl (Thiamine Hcl 100 Mg Tablet) 100 mg PO DAILY [facility] Valsartan (Valsartan 160 Mg Tablet) 160 mg PO DAILY [facility]; Protocol Vitamin D (Cholecalciferol (Vitamin D3) 25 Mcg Tablet) 50 mcg PO DAILY [facility] Home Medications Medication Instructions Recorded Confirmed Last Taken Type clonidine HCl 0.1 mg tablet 0.1 mg PO BEDTIME 11/30/19 10/23/21 10/22/21 History ferrous sulfate 325 mg (65 mg 325 mg PO Q OTHER DAY 11/30/19 10/23/21 10/23/21 History iron) tablet rosuvastatin 20 mg tablet (Crestor) 20 mg PO DAILY 11/30/19 10/23/21 10/23/21 History thiamine HCl (vitamin B1) 100 mg 100 mg PO DAILY 11/30/19 10/23/21 10/23/21 History tablet aspirin 81 mg tablet,delayed 81 mg PO DAILY 01/01/21 10/23/21 10/23/21 History release cyanocobalamin (vitamin B-12) 1,000 mcg IM [id number] 01/01/21 10/23/21 Unknown History 1,000 mcg/mL injection solution fluticasone propionate 110 1 puff PO BID 01/01/21 10/23/21 10/22/21 History mcg/actuation HFA aerosol inhaler (Flovent HFA) hydrochlorothiazide 25 mg tablet 25 mg PO DAILY 01/01/21 10/23/21 10/22/21 History melatonin 5 mg tablet 5 - 10 mg PO BEDTIME PRN Sleep 01/01/21 10/23/21 Unknown History nortriptyline 75 mg capsule 75 mg PO BEDTIME 01/01/21 10/23/21 10/22/21 History oxybutynin chloride 10 mg 10 mg PO DAILY 01/01/21 10/23/21 10/22/21 History tablet,extended release 24 hr clonazepam 1 mg tablet 1 mg PO TID PRN Anxiety 05/07/21 10/23/21 Unknown History omeprazole 20 mg capsule,delayed 20 mg PO DAILY@0630 03/08/22 08/24/22 08/24/22 History release valsartan 160 mg tablet 160 mg PO DAILY 05/07/21 10/23/21 10/23/21 History cholecalciferol (vitamin D3) 50 50 mcg PO DAILY 07/12/21 10/23/21 10/23/21 History mcg (2,000 unit) capsule docusate sodium 100 mg capsule 100 mg PO BID 09/26/21 10/23/21 Unknown History albuterol sulfate 90 mcg/actuation 2 puff inhalation Q4-6H PRN asthma 10/23/21 10/23/21 Unknown History aerosol inhaler (ProAir HFA) aripiprazole 20 mg tablet 1 tab PO DAILY 10/23/21 10/23/21 10/23/21 History hydroxyzine HCl 25 mg tablet 1 - 2 tab PO BEDTIME PRN Anxiety 10/23/21 10/23/21 Unknown History insulin regular hum U-500 conc 500 120 unit subcut DAILY@1700 10/23/21 10/23/21 Unknown History unit/mL(3 mL) subcut pen (Humulin R U-500 (Conc) Insulin Kwikpen) insulin regular hum U-500 conc 500 140 unit subcut DAILY 10/23/21 10/23/21 Unknown History unit/mL(3 mL) subcut pen (Humulin R U-500 (Conc) Insulin Kwikpen) levothyroxine 125 mcg tablet 1 tab PO DAILY@0600 10/23/21 10/23/21 10/23/21 History nortriptyline 50 mg capsule 1 cap PO BEDTIME 10/23/21 10/23/21 10/22/21 History Physical Exam Vital Signs and Narrative: Vital Signs: Last Vital Signs Temp 98.2 F 10/23/21 12:11 Pulse 90 10/23/21 12:11 Resp 33 H 10/23/21 12:11 BP 137/72 10/23/21 12:11 Pulse Ox 95 10/23/21 12:11 O2 Del Method 10/23/21 12:11 O2 Flow Rate 4 10/23/21 12:11 FiO2 100 10/23/21 04:19 Oxygen Flow Rate 20 10/23/21 04:19 BMI result Body Mass Index 42.3 Constitutional - Awake and Alert, No apparent distress Eyes - PERRLA, EOMI Cardiovascular - S1S2, RRR, 2+ pitting edema BLE Respiratory - Coarse crackles bilateral lower lobes. On 4L O2 NC Normal lung expansion, Normal respiratory effort, No respiratory distress Gastrointestinal - NT / ND; +BS; No rebound or guarding Extremities - no calf tenderness bilaterally, 2+ pitting edema BLE Skin - Warm/Dry Neurological - Alert & oriented x3, No focal deficit Psychological - Appropriate affect Results Labs CBC and Chem 7: 10/23/21 04:54 10/23/21 04:54 Labs: Laboratory Results - last 24 hr 10/23/21 10/23/21 10/23/21 04:37 04:54 04:54 MCV 87.6 MCH 25.8 L MCHC 29.4 L RDW 16.5 H Plt Count 363 D MPV 9.7 Immature Gran % (Auto) 0.7 H Neut % (Auto) 52.8 Lymph % (Auto) 38.5 Parmer % (Auto) 6.6 Eos % (Auto) 1.1 Baso % (Auto) 0.3 Lymph # (Auto) 6.3 H Parmer # (Auto) 1.1 Eos # (Auto) 0.2 Baso # (Auto) 0.1 Abs Immat Gran (auto) 0.11 H Absolute Neuts (auto) 8.7 H Absolute Nucleated RBC 0.020 H Nucleated RBC % (auto) 0.1 Smear Tech's Comments VERIFIED VBG pH VBG pCO2 VBG pO2 VBG HCO3 VBG O2 Saturation VBG Base Excess Anion Gap 19 Estim Creat Clear Calc 122.5 Estimated GFR > 60 POC Glucose 90 Random Glucose 92 Lactic Acid Lactic Acid F/U @ 2Hr Calcium 8.7 B-Natriuretic Peptide COVID-19 ([facility]) COVID-19 Clin Com 10/23/21 10/23/21 10/23/21 04:54 04:54 04:54 MCV MCH MCHC RDW Plt Count MPV Immature Gran % (Auto) Neut % (Auto) Lymph % (Auto) Parmer % (Auto) Eos % (Auto) Baso % (Auto) Lymph # (Auto) Parmer # (Auto) Eos # (Auto) Baso # (Auto) Abs Immat Gran (auto) Absolute Neuts (auto) Absolute Nucleated RBC Nucleated RBC % (auto) Smear Tech's Comments VBG pH VBG pCO2 VBG pO2 VBG HCO3 VBG O2 Saturation VBG Base Excess Anion Gap Estim Creat Clear Calc Estimated GFR POC Glucose Random Glucose Lactic Acid 2.7 H* Lactic Acid F/U @ 2Hr Calcium B-Natriuretic Peptide 116 H COVID-19 ([facility]LEY) Negative COVID-19 Clin Com See Note 10/23/21 10/23/21 10/23/21 05:00 08:27 08:29 MCV MCH MCHC RDW Plt Count MPV Immature Gran % (Auto) Neut % (Auto) Lymph % (Auto) Parmer % (Auto) Eos % (Auto) Baso % (Auto) Lymph # (Auto) Parmer # (Auto) Eos # (Auto) Baso # (Auto) Abs Immat Gran (auto) Absolute Neuts (auto) Absolute Nucleated RBC Nucleated RBC % (auto) Smear Tech's Comments VBG pH 7.29 L VBG pCO2 64 VBG pO2 59 VBG HCO3 31 H VBG O2 Saturation 79.0 VBG Base Excess 3.0 Anion Gap Estim Creat Clear Calc Estimated GFR POC Glucose 91 Random Glucose Lactic Acid Lactic Acid F/U @ 2Hr 2.3 H* Calcium B-Natriuretic Peptide COVID-19 ([facility]) COVID-19 Clin Com Imaging Radiologist's Impressions: Impressions Chest X-Ray 10/23/21 06:25 IMPRESSION: Mild diffuse interstitial prominence suggesting vascular congestion and subtle interstitial edema. Few patchy opacities at the lung bases raising the possibility of developing consolidation/pneumonia in the proper clinical setting. Short-term radiographic follow-up would be helpful. Assessment and Plan (1) Respiratory failure: Status: Acute (2) Asthma exacerbation: Status: Acute (3) Bilateral pneumonia: Status: Acute Plan 56 year old female with history of mild persistent asthma, DINA on cpap, insulin dependent type 2 diabetes, hypothyroidism, anxiety/depression with psychosis, htn, hld, chronic low back pain, and morbid obesity admitted to the hospital for acute asthma exacerbation with repiratory failure with hypoxemia, and bilateral lower lobe pneumonia. 1- Acute asthma exacerbation- likely secondary to pneumonia - Hx mild persistent asthma with recurrent ED visits for exacerbation, with worsening symptoms despite 3 days oral prednisone. -Received IV mag, IV solumedrol, and albuterol and duo neb updrafts with improvement in oximetry and work of breathing -Continue DuoNeb q4h while awake and IV solumedrol BID -Continue 4L O2 via NC to maintain O2 sat >93% 2-Acute hypoxic respiratory failure requiring BIPAP- improving without increased work of breathing on admission -O2 sats 55% on arrival with minimal improvement O2 via non-rebreather. Bipap applied with improvement to 94% on 4L O2 via nc -Mild respiratory acidosis with pH 7.29 and bicarb 31 -Continue O2 as above 3-Bilateral lower lobe pneumonia -CXR with few opacities bilateral bases. CT chest with atelectasis or small infiltrates in bilateral lower lobes. No evidence of CHF/pulmonary edema (and fatty liver). -Reveived doses of ceftriaxone and azithromycin in ED. Continue ceftriaxone and azithromycin -Lactic acid elevation of 3.1 on recheck most likely secondary to metoformin and albuterol use, not severe sepsis 4-BLE edema- persisting 1 month, possibly dependent -CXR showed increased interstitial markings bilateral suggestive of interstitial edema. Did receive 40mg IV lasix in ED. Subsequent chest CT without evidence of CHF or pulmonary edema. BNP mildly elevated at 116, likely due to body habitus, not acute heart failure -Echo in 04/2021 without evidence of heart failure. Normal LV systolic function -Received IV lasix in 40mg IV lasix total in ED. Hold lasix at this time -Normal renal function 5-Insulin dependent type 2 diabetes- uncontrolled -Hold home humalog. Patient humalog at home is 260 units daily. Recommended conversion to lantus is 100 units daily or 50 units BID with prandial SSI, discussed with pharmacy. However, holding on lantus as patient glucose is 178 fasting and 255 postprandially after having received multiple doses of steroid without receiving any insulin at all. She has history of hypoglycemic episodes. Will initiate humalog on sliding scale. Monitor POC glucode. Initiate lantus if needed. -Hold metformin -POC glucose -Diabetic diet -A1c ordered 6-HTN- controlled -Continue hctz and clonidine -Hold propranolol d/t asthma exacerbation. 7-Hypothyroidism -Continue levothyroxine 8-Depression/anxiety with history of psychosis-stable -Continue home meds DVT prophylaxis- lovenox Full code Patient requires inpatient stay of at least 2 midnights due to acute hypoxic respiratory failure and asthma exacerbation requiring bipap, supplemental O2, and IV steroids to prevent worsening respiratory decompensation. Quality Stroke Does the patient have a stroke diagnosis?: No VTE Prior VTE?: No VTE Risk Level:: Medical - moderate - high VTE Device Contraindication: Treatment Not Indicated VTE Drug Contraindication: N/A - Med Ordered
[2021-10-23 12:35] LABS: ~Lactic Acid-LAB USE ONLY 3.1 mmol/L (0.5-2.0)
[2021-10-23 12:48] LABS: Glucose, Whole Blood 178 mg/dL (60-115)
[2021-10-23] MEDS: Albuterol/Iprat 2.5/0.5MG 3 ML AMPUL.NEB INHALE ×3 (12:56→20:34)
[2021-10-23 13:21] LABS: Procalcitonin 0.71 ng/mL
[2021-10-23 15:53] LABS: Glucose, Whole Blood 255 mg/dL (60-115)
[2021-10-23] MEDS: Gabapentin 400 MG CAPSULE PO ×2 (16:22→21:38)
[2021-10-23] MEDS: 0.9 % Sodium Chloride Flush 3 ML SYRINGE IVFLUSH (16:22)
[2021-10-23] MEDS: Acetaminophen 325 MG TABLET 650 MG PO ×2 (16:22→21:37)
--- NOTE | 2021-10-23 16:23 | PC.NURSE ---
assumed care of pt, a&ox3, vss - RR remains in the high 20s/low 30s, respiratory in room for breathing treatment, POC - 255, pt reporting 9/10 headache, medicated per provider order.
[2021-10-23 18:14] LABS: Glucose, Whole Blood 249 mg/dL (60-115)
[2021-10-23] MEDS: Insulin Lispro 100 UNIT/ML 3 ML VIAL SUBCUT ×2 (19:41→21:37)
[2021-10-23 21:01] LABS: Glucose, Whole Blood 337 mg/dL (60-115)
[2021-10-23] MEDS: cloNIDine HCL 0.1 MG TABLET PO (21:37)
[2021-10-23] MEDS: Docusate Sodium 100 MG CAPSULE PO (21:38)
[2021-10-23] MEDS: Metoclopramide HCl 5 MG TABLET PO (21:38)
[2021-10-23] MEDS: Nortriptyline HCl 25 MG CAPSULE 50 MG PO (21:38)
[2021-10-23] MEDS: Nortriptyline HCl 25 MG CAPSULE 75 MG PO (21:38)
--- NOTE | 2021-10-23 21:41 | PC.NURSE ---
pt a&ox3, vss, medicated per provider order. resp notified to reconnect pt bipap.
--- NOTE | 2021-10-23 22:18 | PC.NURSE ---
RN-RN report called into [facility] - pt okay to transfer after 11.
[2021-10-24] VITALS (11 sets, daily range): BP systolic 138–175; BP diastolic 61–86; PULSE 78–93; RESP 16–18; TEMP 36.3–37.2; O2SAT 92–98; BMI 40.3
[2021-10-24] MEDS: 0.9 % Sodium Chloride Flush 3 ML SYRINGE IVFLUSH ×4 (00:28→22:36)
[2021-10-24] MEDS: methylPREDNISolone Sod Succ 125 MG/2 ML VIAL 60 MG IVPUSH ×3 (00:28→18:03)
[2021-10-24] MEDS: Levothyroxine Sodium 125 MCG TABLET PO (05:44)
[2021-10-24] MEDS: Omeprazole 20 MG CAPSULE.DR PO (05:44)
[2021-10-24 07:12] LABS: Glucose, Whole Blood 397 mg/dL (60-115)
[2021-10-24 07:29] LABS: Estimated Average Glucose 154 mg/dL
[2021-10-24] MEDS: Insulin Glargine,Hum.rec.anlog 100 UNIT/ML 10 ML VIAL 25 UNIT SUBCUT (08:15)
[2021-10-24] MEDS: Albuterol/Iprat 2.5/0.5MG 3 ML AMPUL.NEB INHALE ×4 (08:16→20:50)
[2021-10-24] MEDS: Fluticasone Propionate 100 MCG BLST.W.DEV 1 PUFF INHALE ×2 (08:16→20:50)
[2021-10-24] MEDS: Insulin Lispro 100 UNIT/ML 3 ML VIAL SUBCUT ×4 (08:16→22:23)
[2021-10-24] MEDS: Gabapentin 400 MG CAPSULE PO ×3 (08:16→22:21)
[2021-10-24] MEDS: ARIPiprazole 20 MG TABLET PO (08:17)
[2021-10-24] MEDS: Cholecalciferol (Vitamin D3) 25 MCG TABLET 50 MCG PO (08:17)
[2021-10-24] MEDS: hydroCHLOROthiazide 25 MG TABLET PO (08:17)
[2021-10-24] MEDS: Aspirin Enteric Coated 81 MG TABLET.DR PO (08:17)
[2021-10-24] MEDS: Ferrous Sulfate 324 MG TABLET.DR PO (08:18)
[2021-10-24] MEDS: Thiamine HCL 100 MG TABLET PO (08:18)
[2021-10-24] MEDS: cefTRIAXone sodium 1 GM in 0.9 % Sodium Chloride 50 ML IV (08:18)
[2021-10-24] MEDS: Docusate Sodium 100 MG CAPSULE PO ×2 (08:18→22:21)
[2021-10-24] MEDS: Acetaminophen 325 MG TABLET 650 MG PO (08:29)
--- NOTE | 2021-10-24 08:56 | HO.PM.IMPN ---
Subjective Subjective Date of Service: 10/24/21 Interval History: Seen for follow up on acute repiratory failure with hypoxica requiring bipap secndary to asthma exacerbation and bilateral lower lobe pneumonia. Reports improvement in sob and wheezing. Occassional dry cough. Titrated down to 2L O2 by respiratory, oximetry at 96%. She is reporting pleuritic chest pains in the central chest worse with deep inspiration. Hyperglycemia this am at 397. Review of Systems General: No fevers, malaise, unintentional weight loss Cardiovascular: +pleuritic chest pain. No chest pressure, palpitations, or leg edema Respiratory: + cough. No shortness of breath, wheezing GI: No abdominal pain, nausea, vomiting, diarrhea, constipation, melena, hematochezia Neuro: No headaches, weakness, paresthesias Skin: No rashes or lesions Physical Exam Vital Signs: Vital Signs: Last Vital Signs Temp 97.9 F 10/24/21 04:00 Pulse 90 10/24/21 08:17 Resp 18 10/24/21 08:17 BP 140/74 H 10/24/21 04:00 Pulse Ox 95 10/24/21 04:00 O2 Del Method 10/24/21 04:00 O2 Flow Rate 3 10/24/21 04:00 FiO2 100 10/23/21 04:19 Oxygen Flow Rate 20 10/23/21 04:19 BMI result Body Mass Index 40.3 Constitutional - Awake and Alert, No apparent distress Eyes - PERRLA, EOMI Cardiovascular - S1S2, RRR, No edema Respiratory - On 2L O2 nc. Bibasilar crackes. Normal lung expansion, Normal respiratory effort, No respiratory distress Chest: Reproducible tenderness to palpation over central chest Gastrointestinal - NT / ND; +BS; No rebound or guarding Extremities - no calf tenderness bilaterally, no swelling Skin - Warm/Dry Neurological - Alert & oriented x3, No focal deficit Psychological - Appropriate affect Objective Data Active Medications Acetaminophen (Acetaminophen 325 Mg Tablet) 650 mg PO Q4H PRN PRN Reason: Headache Last Admin: 10/24/21 08:29 Dose: 650 mg Documented By: JHON Albuterol Sulfate (Albuterol Sulfate 90 Mcg 8 Gm Inhaler) 2 puff INHALE Q4H PRN PRN Reason: asthma Albuterol/Ipratropium (Albuterol/Iprat 2.5/0.5mg 3 Ml Ampul.Neb) 3 ml INHALE RQ4H WHILE AWAKE [facility] Last Admin: 10/24/21 08:16 Dose: 3 ml Documented By: AVTAR Aripiprazole (Aripiprazole 20 Mg Tablet) 20 mg PO DAILY [facility] Last Admin: 10/24/21 08:17 Dose: 20 mg Documented By: JHON Aspirin (Aspirin Enteric Coated 81 Mg Tablet.) 81 mg PO DAILY [facility] Last Admin: 10/24/21 08:17 Dose: 81 mg Documented By: JHON Atorvastatin Calcium (Atorvastatin Calcium 80 Mg Tablet) 80 mg PO BEDTIME [facility] Clonazepam (Clonazepam 1 Mg Tablet) 1 mg PO TID PRN PRN Reason: Anxiety Last Admin: 10/23/21 11:31 Dose: 1 mg Documented By: KIRBY Clonidine HCl (Clonidine Hcl 0.1 Mg Tablet) 0.1 mg PO BEDTIME [facility]; Protocol Last Admin: 10/23/21 21:37 Dose: 0.1 mg Documented By: JOHNNIE Dextrose (Dextrose 50 % 25 Gm/50 Ml Syringe) 25 gm IVPUSH Q15M PRN; Protocol PRN Reason: per 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 Standing Ord. Docusate Sodium (Docusate Sodium 100 Mg Capsule) 100 mg PO BID [facility] Last Admin: 10/24/21 08:18 Dose: 100 mg Documented By: JHON Doxycycline Hyclate (Doxycycline Hyclate 100 Mg Tablet) 100 mg PO Q12H [facility] Last Admin: 10/24/21 08:17 Dose: 100 mg Documented By: JHON Enoxaparin Sodium (Enoxaparin Sodium 40 Mg/0.4 Ml Syringe) 40 mg SUBCUT Q24H [facility] Last Admin: 10/23/21 11:31 Dose: 40 mg Documented By: KIRYB Ferrous Sulfate (Ferrous Sulfate 324 Mg Tablet.) 324 mg PO Q48H [facility] Last Admin: 10/24/21 08:18 Dose: 324 mg Documented By: JHON Fluticasone Propionate (Fluticasone Propionate 100 Mcg Blst.W.Dev) 1 puff INHALE RBID [facility] Last Admin: 10/24/21 08:16 Dose: 1 puff Documented By: AVTAR Gabapentin (Gabapentin 400 Mg Capsule) 400 mg PO TID [facility] Last Admin: 10/24/21 08:16 Dose: 400 mg Documented By: JHON Glucose (Glucose Gel 15 Gm Gel..Gram.) 15 gm PO Q15M PRN; Protocol PRN Reason: per 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 Standing Ord. Hydrochlorothiazide (Hydrochlorothiazide 25 Mg Tablet) 25 mg PO DAILY [facility]; Protocol Last Admin: 10/24/21 08:17 Dose: 25 mg Documented By: JHON Hydroxyzine HCl (Hydroxyzine Hcl 25 Mg Tablet) 25 mg PO BEDTIME PRN PRN Reason: Anxiety Ceftriaxone Sodium 1 gm/ (Sodium Chloride) 50 mls @ 100 mls/hr IV Q24H [facility] Last Infusion: 10/24/21 08:31 Dose: 0 mls/hr Documented By: JHON Insulin Glargine (Insulin Glargine,Hum.Rec.Anlog 100 Unit/Ml 10 Ml Vial) 25 unit SUBCUT BID [facility] Last Admin: 10/24/21 08:15 Dose: 25 unit Documented By: JHON Insulin Human Lispro (Insulin Lispro 100 Unit/Ml 3 Ml Vial) 0 unit SUBCUT QIDACHS [facility]; Protocol Last Admin: 10/24/21 08:16 Dose: 12 unit Documented By: JHON Levothyroxine Sodium (Levothyroxine Sodium 125 Mcg Tablet) 125 mcg PO DAILY@0600 [facility] Last Admin: 10/24/21 05:44 Dose: 125 mcg Documented By: ASAD Melatonin (Melatonin 3 Mg Tablet) 6 mg PO BEDTIME PRN PRN Reason: Sleep Methylprednisolone Sodium Succinate (Methylprednisolone Sod Succ 125 Mg/2 Ml Vial) 60 mg IVPUSH Q8H [facility] Last Admin: 10/24/21 00:28 Dose: 60 mg Documented By: ASAD Metoclopramide HCl (Metoclopramide Hcl 5 Mg Tablet) 5 mg PO BEDTIME [facility] Last Admin: 10/23/21 21:38 Dose: 5 mg Documented By: JOHNNIE Nortriptyline HCl (Nortriptyline Hcl 25 Mg Capsule) 50 mg PO BEDTIME [facility] Last Admin: 10/23/21 21:38 Dose: 50 mg Documented By: JOHNNIE Nortriptyline HCl (Nortriptyline Hcl 25 Mg Capsule) 75 mg PO BEDTIME [facility] Last Admin: 10/23/21 21:38 Dose: 75 mg Documented By: OJHNNIE Omeprazole (Omeprazole 20 Mg Capsule.) 20 mg PO DAILY@0630 [facility] Last Admin: 10/24/21 05:44 Dose: 20 mg Documented By: ASAD Oxybutynin Chloride (Oxybutynin Chloride Er 5 Mg Tab.Er.24) 10 mg PO DAILY [facility] Last Admin: 10/24/21 08:17 Dose: 10 mg Documented By: JHON Pharmacy Consult (Consult Rx Perform Med Rec) 1 each MISCELLANE ONCE PRN PRN Reason: Consult order Sodium Chloride (0.9 % Sodium Chloride Flush 3 Ml Syringe) 3 ml IVFLUSH QSHIFT [facility] Last Admin: 10/24/21 00:28 Dose: 3 ml Documented By: ASAD Thiamine HCl (Thiamine Hcl 100 Mg Tablet) 100 mg PO DAILY [facility] Last Admin: 10/24/21 08:18 Dose: 100 mg Documented By: JHON Valsartan (Valsartan 160 Mg Tablet) 160 mg PO DAILY [facility]; Protocol Vitamin D (Cholecalciferol (Vitamin D3) 25 Mcg Tablet) 50 mcg PO DAILY [facility] Last Admin: 10/24/21 08:17 Dose: 50 mcg Documented By: JHON Labs CBC & Chem 7: 10/23/21 04:54 10/23/21 04:54 Labs: Laboratory Results - last 24 hr 10/23/21 10/23/21 10/23/21 04:54 11:42 12:39 POC Glucose 178 H Estimat Average Glucose Hemoglobin A1c % Lactic Acid F/U @ 4Hr 3.1 H* Procalcitonin 0.71 10/23/21 10/23/21 10/23/21 13:48 15:47 18:10 POC Glucose 255 H 249 H Estimat Average Glucose 154 Hemoglobin A1c % 7.0 Lactic Acid F/U @ 4Hr Procalcitonin 10/23/21 10/24/21 20:50 07:06 POC Glucose 337 H 397 H* Estimat Average Glucose Hemoglobin A1c % Lactic Acid F/U @ 4Hr Procalcitonin Microbiology Microbiology Results: Microbiology 10/23/21 05:00 Blood Culture - Preliminary Blood - Venous No growth after 24 hours. 10/23/21 05:00 Blood Culture - Preliminary Blood - Venous No growth after 24 hours. Assessment and Plan (1) Bilateral pneumonia: Status: Acute (2) Asthma exacerbation: Status: Acute (3) Respiratory failure: Status: Acute Plan 56 year old female with history of mild persistent asthma, DINA on cpap, insulin dependent type 2 diabetes, hypothyroidism, anxiety/depression with psychosis, htn, hld, chronic low back pain, and morbid obesity admitted to the hospital for acute asthma exacerbation with repiratory failure with hypoxemia, and bilateral lower lobe pneumonia. 1- Acute asthma exacerbation- likely secondary to pneumonia -Improving. Continue IV steroid and DuoNebs prn -Continue with supplemental O2 titrate to maintain oximetry >93%. -Continue flovent -Will need outpatient PFT and increase in maintenance inhaler dosing 2-Acute hypoxic respiratory failure requiring BIPAP- improving without increased work of breathing -Oximetry improved to 96%, O2 titrated to 2L by RT -Continue O2 as above 3-Bilateral lower lobe pneumonia- improving -Continue IV ceftriaxone and doxycycline 4-Chest pain -Reproducible on exam, ongoing x2days, EKG without acute st-t wave changes and unchanged from prior EKGs in ED yesterday. Pleuritic in nature -tylenol if needed for pain 5-Insulin dependent type 2 diabetes- uncontrolled with A1c 7.0% -Home insulin initially held due to concern for hypoglycemia. Fasting glucose 397 this morning -Initiate lantus 25 units BID and continue humalog on sliding scale. Further titration may be needed -Hold metformin -POC glucose -Diabetic diet -A1c ordered 6-HTN- controlled -Continue hctz and clonidine -Hold propranolol d/t asthma exacerbation. 7-Hypothyroidism -Continue levothyroxine 8-Depression/anxiety with history of psychosis-stable -Continue home meds DVT prophylaxis- lovenox Full code Patient requires ongoing inpatient stay due to acute hypoxic respiratory failure and asthma exacerbation requiring bipap, supplemental O2, and IV steroids to prevent worsening respiratory decompensation. Quality Stroke Does the patient have a stroke diagnosis?: No VTE Prior VTE?: No VTE Risk Level:: Medical - moderate - high VTE Device Contraindication: Treatment Not Indicated VTE Drug Contraindication: N/A - Med Ordered
[2021-10-24 09:36] LABS: Glucose, Whole Blood 374 mg/dL (60-115)
--- NOTE | 2021-10-24 10:05 | MHC.CM.PN ---
CM spoke with Patient via Telephonic Real Estate Agent/Broker @ [phone]. Patient lives in an apartment with her 2 Sons, one of whom is her HCP. Patient receive [facility] [employer] [facility] RN services and home/resume said services is the goal and CM has initiated and will follow for dc planning. Patient has received J&J/Covid vax and Pfizer Boosters. PCP is Dr. Jaida Martin.
[2021-10-24] MEDS: Valsartan 160 MG TABLET PO (10:22)
[2021-10-24] MEDS: Enoxaparin Sodium 40 MG/0.4 ML SYRINGE SUBCUT (10:25)
[2021-10-24 12:04] LABS: Glucose, Whole Blood 432 mg/dL (60-115)
[2021-10-24 13:04] LABS: Glucose, Whole Blood 417 mg/dL (60-115)
[2021-10-24] MEDS: Insulin Lispro 100 UNIT/ML 3 ML VIAL 15 UNIT SUBCUT (13:58)
[2021-10-24 15:40] LABS: Glucose, Whole Blood 358 mg/dL (60-115)
[2021-10-24 16:16] LABS: Glucose, Whole Blood 337 mg/dL (60-115)
--- NOTE | 2021-10-24 16:21 | MHC.CLN ---
NUTRITION CONSULT FOR MORBID OBESITY AND UNCONTROLLED DIABETES. [facility] FROM [employer] FACILITATED DISCUSSION. PROVIDED INFORMATION ABOUT DIABETIC MEAL PLANNING VIA HANDOUT IN [facility]. ENCOURAGED PATIENT TO CHANGE SODA TO DIET DRINK OR WATER. PATIENT MIGHT BENEFIT FROM OUTPATIENT DIABETIC COUNSELLING.
[2021-10-24] MEDS: Insulin Lispro 100 UNIT/ML 3 ML VIAL 20 UNIT SUBCUT (16:31)
--- NOTE | 2021-10-24 18:10 | PC.NURSE ---
Pt had consistently and stubbornly high blood sugars. Provider notified of each critical/high number. SS and bolus adjusted accordingly and administered as directed. Sugars currently trending down.
[2021-10-24 20:54] LABS: Glucose, Whole Blood 210 mg/dL (60-115)
[2021-10-24] MEDS: Metoclopramide HCl 5 MG TABLET PO (22:21)
[2021-10-24] MEDS: Nortriptyline HCl 25 MG CAPSULE 50 MG PO (22:21)
[2021-10-24] MEDS: cloNIDine HCL 0.1 MG TABLET PO (22:21)
[2021-10-24] MEDS: Atorvastatin Calcium 80 MG TABLET PO (22:21)
[2021-10-24] MEDS: Nortriptyline HCl 25 MG CAPSULE 75 MG PO (22:22)
[2021-10-24] MEDS: Insulin Glargine,Hum.rec.anlog 100 UNIT/ML 10 ML VIAL 50 UNIT SUBCUT (22:24)
[2021-10-25] VITALS (10 sets, daily range): BP systolic 145–168; BP diastolic 60–83; PULSE 80–96; RESP 18–24; TEMP 36–36.8; O2SAT 82–97
[2021-10-25] MEDS: methylPREDNISolone Sod Succ 125 MG/2 ML VIAL 60 MG IVPUSH ×2 (01:15→11:37)
[2021-10-25] MEDS: Omeprazole 20 MG CAPSULE.DR PO (06:05)
[2021-10-25] MEDS: Levothyroxine Sodium 125 MCG TABLET PO (06:05)
[2021-10-25 07:23] LABS: Glucose, Whole Blood 369 mg/dL (60-115)
[2021-10-25] MEDS: cefTRIAXone sodium 1 GM in 0.9 % Sodium Chloride 50 ML IV (07:55)
[2021-10-25] MEDS: Insulin Glargine,Hum.rec.anlog 100 UNIT/ML 10 ML VIAL 50 UNIT SUBCUT (07:58)
[2021-10-25] MEDS: Albuterol/Iprat 2.5/0.5MG 3 ML AMPUL.NEB INHALE ×4 (07:58→21:00)
[2021-10-25] MEDS: Fluticasone Propionate 100 MCG BLST.W.DEV 1 PUFF INHALE ×2 (07:58→21:00)
[2021-10-25] MEDS: Insulin Lispro 100 UNIT/ML 3 ML VIAL 20 UNIT SUBCUT (07:59)
[2021-10-25] MEDS: Insulin Lispro 100 UNIT/ML 3 ML VIAL SUBCUT ×4 (07:59→21:48)
[2021-10-25] MEDS: 0.9 % Sodium Chloride Flush 3 ML SYRINGE IVFLUSH ×3 (08:01→21:58)
[2021-10-25] MEDS: ARIPiprazole 20 MG TABLET PO (08:01)
[2021-10-25] MEDS: Thiamine HCL 100 MG TABLET PO (08:01)
[2021-10-25] MEDS: Cholecalciferol (Vitamin D3) 25 MCG TABLET 50 MCG PO (08:01)
[2021-10-25] MEDS: hydroCHLOROthiazide 25 MG TABLET PO (08:01)
[2021-10-25] MEDS: Gabapentin 400 MG CAPSULE PO ×3 (08:01→21:48)
[2021-10-25] MEDS: Docusate Sodium 100 MG CAPSULE PO ×2 (08:02→21:47)
[2021-10-25] MEDS: Valsartan 160 MG TABLET PO (08:02)
[2021-10-25] MEDS: Acetaminophen 325 MG TABLET 650 MG PO (08:02)
[2021-10-25] MEDS: Aspirin Enteric Coated 81 MG TABLET.DR PO (08:02)
[2021-10-25 09:16] LABS: Glucose, Whole Blood 367 mg/dL (60-115)
--- NOTE | 2021-10-25 11:10 | MHC.CM.PN ---
Per ROUNDS discussion, Patient is not yet medically cleared for dc (IV Ceftriaxone, IV Solu Medrol); Home/resume services is the goal and CM will continue to follow.
[2021-10-25 11:31] LABS: Glucose, Whole Blood 357 mg/dL (60-115)
[2021-10-25] MEDS: Enoxaparin Sodium 40 MG/0.4 ML SYRINGE SUBCUT (11:37)
[2021-10-25] MEDS: Insulin Lispro 100 UNIT/ML 3 ML VIAL 25 UNIT SUBCUT ×2 (11:38→16:38)
--- NOTE | 2021-10-25 13:10 | P.PNIM_ITS ---
Subjective Subjective Date of Service: 10/25/21 Interval History: This history was taken in [place] from the patient. Breathing improved, less wheezy, coughing up thin sputum Review of Systems Review of Systems: Yes all other systems are reviewed and are negative Physical Exam Vital Signs: Vital Signs: Last Vital Signs Temp 97.4 F 10/25/21 11:16 Pulse 88 10/25/21 12:11 Resp 18 10/25/21 12:11 BP 153/60 H 10/25/21 11:16 Pulse Ox 94 10/25/21 11:16 O2 Del Method 10/25/21 11:16 O2 Flow Rate 1 10/25/21 11:16 FiO2 45 10/25/21 04:00 Oxygen Flow Rate 20 10/23/21 04:19 BMI result Body Mass Index 40.3 Gen: in no acute distress HEENT: sclera anicteric, moist mucus membranes Neck: supple Lungs: diminished bilaterally Heart: regular rate and rhythm, no murmurs Abd: soft, non-tender, non-distended, obese Ext: no edema Skin: warm/well-perfused Neuro: alert and oriented x3, no focal findings Psych: appropriate affect Objective Data Active Medications Acetaminophen (Acetaminophen 325 Mg Tablet) 650 mg PO Q4H PRN PRN Reason: Headache Last Admin: 10/25/21 08:02 Dose: 650 mg Documented By: JHON Albuterol Sulfate (Albuterol Sulfate 90 Mcg 8 Gm Inhaler) 2 puff INHALE Q4H PRN PRN Reason: asthma Albuterol/Ipratropium (Albuterol/Iprat 2.5/0.5mg 3 Ml Ampul.Neb) 3 ml INHALE RQ 4H WHILE AWAKE [facility] Last Admin: 10/25/21 12:11 Dose: 3 ml Documented By: AVTAR Aripiprazole (Aripiprazole 20 Mg Tablet) 20 mg PO DAILY [facility] Last Admin: 10/25/21 08:01 Dose: 20 mg Documented By: JHON Aspirin (Aspirin Enteric Coated 81 Mg Tablet.) 81 mg PO DAILY [facility] Last Admin: 10/25/21 08:02 Dose: 81 mg Documented By: JHON Atorvastatin Calcium (Atorvastatin Calcium 80 Mg Tablet) 80 mg PO BEDTIME [facility] Last Admin: 10/24/21 22:21 Dose: 80 mg Documented By: JACQUE Clonazepam (Clonazepam 1 Mg Tablet) 1 mg PO TID PRN PRN Reason: Anxiety Last Admin: 10/23/21 11:31 Dose: 1 mg Documented By: KIRBY Clonidine HCl (Clonidine Hcl 0.1 Mg Tablet) 0.1 mg PO BEDTIME [facility]; Protocol Last Admin: 10/24/21 22:21 Dose: 0.1 mg Documented By: JACQUE Dextrose (Dextrose 50 % 25 Gm/50 Ml Syringe) 25 gm IVPUSH Q15M PRN; Protocol PRN Reason: per 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 Standing Ord. Docusate Sodium (Docusate Sodium 100 Mg Capsule) 100 mg PO BID [facility] Last Admin: 10/25/21 08:02 Dose: 100 mg Documented By: JHON Doxycycline Hyclate (Doxycycline Hyclate 100 Mg Tablet) 100 mg PO Q12H [facility] Last Admin: 10/25/21 08:01 Dose: 100 mg Documented By: JHON Enoxaparin Sodium (Enoxaparin Sodium 40 Mg/0.4 Ml Syringe) 40 mg SUBCUT Q24H [facility] Last Admin: 10/25/21 11:37 Dose: 40 mg Documented By: JHON Ferrous Sulfate (Ferrous Sulfate 324 Mg Tablet.) 324 mg PO Q48H [facility] Last Admin: 10/24/21 08:18 Dose: 324 mg Documented By: JHON Fluticasone Propionate (Fluticasone Propionate 100 Mcg Blst.W.Dev) 1 puff INHALE RBID [facility] Last Admin: 10/25/21 07:58 Dose: 1 puff Documented By: AVTAR Gabapentin (Gabapentin 400 Mg Capsule) 400 mg PO TID [facility] Last Admin: 10/25/21 08:01 Dose: 400 mg Documented By: JHON Glucose (Glucose Gel 15 Gm Gel..Gram.) 15 gm PO Q15M PRN; Protocol PRN Reason: per 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 Standing Ord. Hydrochlorothiazide (Hydrochlorothiazide 25 Mg Tablet) 25 mg PO DAILY [facility]; Pr otocol Last Admin: 10/25/21 08:01 Dose: 25 mg Documented By: JHON Hydroxyzine HCl (Hydroxyzine Hcl 25 Mg Tablet) 25 mg PO BEDTIME PRN PRN Reason: Anxiety Ceftriaxone Sodium 1 gm/ (Sodium Chloride) 50 mls @ 100 mls/hr IV Q24H [facility] Last Infusion: 10/25/21 08:31 Dose: 0 mls/hr Documented By: JHON Insulin Glargine (Insulin Glargine,Hum.Rec.Anlog 100 Unit/Ml 10 Ml Vial) 50 unit SUBCUT BID [facility] Last Admin: 10/25/21 07:58 Dose: 50 unit Documented By: JHON Insulin Human Lispro (Insulin Lispro 100 Unit/Ml 3 Ml Vial) 0 unit SUBCUT QIDACHS [facility]; Protocol Last Admin: 10/25/21 11:37 Dose: 20 unit Documented By: JHON Insulin Human Lispro (Insulin Lispro 100 Unit/Ml 3 Ml Vial) 25 unit SUBCUT TIDAC [facility] Last Admin: 10/25/21 11:38 Dose: 25 unit Documented By: JHON Levothyroxine Sodium (Levothyroxine Sodium 125 Mcg Tablet) 125 mcg PO DAILY@0600 [facility] Last Admin: 10/25/21 06:05 Dose: 125 mcg Documented By: JACQUE Melatonin (Melatonin 3 Mg Tablet) 6 mg PO BEDTIME PRN PRN Reason: Sleep Methylprednisolone Sodium Succinate (Methylprednisolone Sod Succ 125 Mg/2 Ml Via l) 60 mg IVPUSH Q8H [facility] Last Admin: 10/25/21 11:37 Dose: 60 mg Documented By: JHON Metoclopramide HCl (Metoclopramide Hcl 5 Mg Tablet) 5 mg PO BEDTIME [facility] Last Admin: 10/24/21 22:21 Dose: 5 mg Documented By: JACQUE Nortriptyline HCl (Nortriptyline Hcl 25 Mg Capsule) 50 mg PO BEDTIME [facility] Last Admin: 10/24/21 22:21 Dose: 50 mg Documented By: JACQUE Nortriptyline HCl (Nortriptyline Hcl 25 Mg Capsule) 75 mg PO BEDTIME [facility] Last Admin: 10/24/21 22:22 Dose: 75 mg Documented By: JACQUE Omeprazole (Omeprazole 20 Mg Capsule.) 20 mg PO DAILY@0630 [facility] Last Admin: 10/25/21 06:05 Dose: 20 mg Documented By: JACQUE Oxybutynin Chloride (Oxybutynin Chloride Er 5 Mg Tab.Er.24) 10 mg PO DAILY [facility] Last Admin: 10/25/21 08:02 Dose: 10 mg Documented By: JHON Pharmacy Consult (Consult Rx Perform Med Rec) 1 each MISCELLANE ONCE PRN PRN Reason: Consult order Sodium Chloride (0.9 % Sodium Chloride Flush 3 Ml Syringe) 3 ml IVFLUSH QSHIFT [facility] Last Admin: 10/25/21 08:01 Dose: 3 ml Documented By: JHON Thiamine HCl (Thiamine Hcl 100 Mg Tablet) 100 mg PO DAILY [facility] Last Admin: 10/25/21 08:01 Dose: 100 mg Documented By: JHON Valsartan (Valsartan 160 Mg Tablet) 160 mg PO DAILY [facility]; Protocol Last Admin: 10/25/21 08:02 Dose: 160 mg Documented By: JHON Vitamin D (Cholecalciferol (Vitamin D3) 25 Mcg Tablet) 50 mcg PO DAILY [facility] Last Admin: 10/25/21 08:01 Dose: 50 mcg Documented By: JHON Labs CBC & Chem 7: 10/23/21 04:54 10/23/21 04:54 Labs: Laboratory Results - last 24 hr 10/24/21 10/24/21 10/24/21 15:35 16:10 20:47 POC Glucose 358 H* 337 H 210 H 10/25/21 10/25/21 10/25/21 07:08 09:13 11:20 POC Glucose 369 H* 367 H* 357 H* Microbiology Microbiology Results: Microbiology 10/23/21 05:00 Blood Culture - Preliminary Blood - Venous No growth after 48 hours. 10/23/21 05:00 Blood Culture - Preliminary Blood - Venous No growth after 48 hours. Assessment and Plan (1) Bilateral pneumonia: Status: Acute (2) Asthma exacerbation: Status: Acute (3) Respiratory failure: Status: Acute Plan hospital d#3 56yo F with mild persistent asthma, DINA on CPAP, DM2, hypothyroidism, psychotic depression, anxiety, HTN, HLD, chronic low back pain, morbid obesity admitted for acute hypoxic respiratory failure due to asthma exacerbation + bilateral lower lobe PNA # acute hypoxic respiratory failure - initially required BiPAP - wean off O2 as tolerated # acute exacerbation of mild persistent asthma - wean steroids, give prn nebs, continue ICS # PNA - d#3 ceftriaxone + doxycycline, BCx neg, check PCT # atypical chest pain - APAP prn # DM2, A1c 7, with steroid-induced hyperglycemia - increase Lantus/Humalog, hold MTF # HTN - continue clonidine + HCTZ + valsartan # hypothyroidism - continue LT4 # mood disorder - continue home meds # VTE ppx: LMWH In my clinical judgment, the patient requires continued hospitalization for the following reasons: respiratory failure Quality Stroke Does the patient have a stroke diagnosis?: No VTE Prior VTE?: No VTE Risk Level:: Medical - moderate - high VTE Device Contraindication: Treatment Not Indicated VTE Drug Contraindication: N/A - Med Ordered
--- NOTE | 2021-10-25 13:31 | PC.NURSE ---
pt's blood sugars continue to be high. MD notified per policy. SS and bolus adjusted and administered as ordered. Pt asked why are my sugars so high, education was given.
[2021-10-25 16:19] LABS: Glucose, Whole Blood 368 mg/dL (60-115)
[2021-10-25 16:19] LABS: Glucose, Whole Blood 279 mg/dL (60-115)
[2021-10-25 21:12] LABS: Glucose, Whole Blood 232 mg/dL (60-115)
[2021-10-25] MEDS: Nortriptyline HCl 25 MG CAPSULE 50 MG PO (21:46)
[2021-10-25] MEDS: Nortriptyline HCl 25 MG CAPSULE 75 MG PO (21:46)
[2021-10-25] MEDS: Atorvastatin Calcium 80 MG TABLET PO (21:47)
[2021-10-25] MEDS: Metoclopramide HCl 5 MG TABLET PO (21:47)
[2021-10-25] MEDS: cloNIDine HCL 0.1 MG TABLET PO (21:47)
[2021-10-25] MEDS: methylPREDNISolone Sod Succ 125 MG/2 ML VIAL 40 MG IVPUSH (21:50)
[2021-10-25] MEDS: Insulin Glargine,Hum.rec.anlog 100 UNIT/ML 10 ML VIAL 55 UNIT SUBCUT (21:50)
[2021-10-26] VITALS: BP 137/79; PULSE 69; RESP 20; TEMP 36.1; O2SAT 94
[2021-10-26 03:50] VITALS: BP 137/79; PULSE 68; RESP 20; TEMP 36.8; O2SAT 97
[2021-10-26] MEDS: Omeprazole 20 MG CAPSULE.DR PO (05:43)
[2021-10-26] MEDS: Levothyroxine Sodium 125 MCG TABLET PO (05:43)
[2021-10-26 06:48] LABS: Hematocrit 35.3 % (37.0-47.0); Hemoglobin 10.8 g/dl (12.0-16.0); Mean Corpuscular HGB Conc 30.6 g/dl (31.0-35.0); Mean Corpuscular Hemoglobin 25.7 pg (27.0-33.0); Mean Corpuscular Volume 83.8 fL (80.0-98.0); Mean Platelet Volume 10.2 fL (9.4-12.3); Platelet Count 327 X10*3/uL (160-400); Red Blood Count 4.21 X10*6/uL (4.20-5.50); Red Cell Distribution Width 16.4 % (11.0-16.0); White Blood Count 10.9 X10*3/uL (4.8-10.8)
[2021-10-26 07:16] VITALS: BP 178/78; PULSE 83; RESP 16; TEMP 36.7; O2SAT 94
[2021-10-26 07:31] LABS: Glucose, Whole Blood 273 mg/dL (60-115)
[2021-10-26] MEDS: 0.9 % Sodium Chloride Flush 3 ML SYRINGE IVFLUSH (08:13)
[2021-10-26] MEDS: Insulin Lispro 100 UNIT/ML 3 ML VIAL 25 UNIT SUBCUT ×2 (08:13→12:07)
[2021-10-26] MEDS: cefTRIAXone sodium 1 GM in 0.9 % Sodium Chloride 50 ML IV (08:13)
[2021-10-26] MEDS: hydroCHLOROthiazide 25 MG TABLET PO (08:16)
[2021-10-26] MEDS: Cholecalciferol (Vitamin D3) 25 MCG TABLET 50 MCG PO (08:16)
[2021-10-26] MEDS: Gabapentin 400 MG CAPSULE PO (08:17)
[2021-10-26] MEDS: Aspirin Enteric Coated 81 MG TABLET.DR PO (08:17)
[2021-10-26] MEDS: Ferrous Sulfate 324 MG TABLET.DR PO (08:17)
[2021-10-26] MEDS: ARIPiprazole 20 MG TABLET PO (08:17)
[2021-10-26] MEDS: Docusate Sodium 100 MG CAPSULE PO (08:17)
[2021-10-26] MEDS: clonazePAM 1 MG TABLET PO (08:17)
[2021-10-26] MEDS: Thiamine HCL 100 MG TABLET PO (08:18)
[2021-10-26] MEDS: Insulin Lispro 100 UNIT/ML 3 ML VIAL SUBCUT ×2 (08:20→12:05)
[2021-10-26] MEDS: Insulin Glargine,Hum.rec.anlog 100 UNIT/ML 10 ML VIAL 60 UNIT SUBCUT (08:22)
[2021-10-26] MEDS: Valsartan 160 MG TABLET PO (08:23)
[2021-10-26] MEDS: Albuterol/Iprat 2.5/0.5MG 3 ML AMPUL.NEB INHALE (09:18)
[2021-10-26] MEDS: Fluticasone Propionate 100 MCG BLST.W.DEV 1 PUFF INHALE (09:20)
--- NOTE | 2021-10-26 10:03 | MHC.CM.PN ---
Female 56 DX Acute Asthma exacerbation resp failure. She is discharged to home today. Services in place will resume, [facility]urse from [facility]. The patient has arranged for private transport home.
[2021-10-26 11:37] VITALS: BP 165/87; PULSE 88; RESP 16; TEMP 36.3; O2SAT 94
[2021-10-26 11:49] LABS: Glucose, Whole Blood 238 mg/dL (60-115)
[2021-10-26] MEDS: Enoxaparin Sodium 40 MG/0.4 ML SYRINGE SUBCUT (12:05)
[2021-10-26] MEDS: methylPREDNISolone Sod Succ 125 MG/2 ML VIAL 40 MG IVPUSH (12:05)
[2021-10-26 12:48] VITALS: PULSE 105; PULSE 88; PULSE 90; O2SAT 87; O2SAT 92
--- NOTE | 2021-10-26 13:02 | P.DS_ITS ---
DS: Providers Provider Date of Service: 10/26/21 Date of admission: 10/23/21 10:28 Date of discharge: 10/26/21 Primary care physician: [facility] DS: Diagnosis Discharge Diagnosis (1) Bilateral pneumonia: Status: Acute (2) Asthma exacerbation: Status: Acute (3) Acute respiratory failure with hypoxia: Status: Acute (4) Obstructive sleep apnea on CPAP: Status: Acute (5) Morbid obesity: Status: Acute DS: Summary Hospital Course Hospital Course: From the history and physical by the admitting hospitalist, JEAN-PIERRE Malone, 10/23/21: 56 year old female with history of mild persistent asthma, DINA on cpap, insulin dependent type 2 diabetes, hypothyroidism, anxiety/depression with psychosis, htn, hld, chronic low back pain, and morbid obesity presented to the ED this morning with shortness of breath, wheezing ongoing for 3 days. Seen earlier this week in the ED and given PO steroids but symptoms worsened this morning despite multiple albuterol usages so she called EMS. EMS reports that the patient was saturating 92% on room air, if patient got up and walked, oxygen saturation dropped to the mid 80s.? EMS gave the patient 1 dose of Solu-Medrol IV and 1 DuoNeb. In the ED, O2 sat dropped to 55% on NC and was placed on non-rebreather at 15L with improvement low 70s. She was placed on bipap until 7am with O2 sat improved to 94% on 5L NC. While in the ED, received IV magnesium, IV solumedrol, 2 albuterol nebulizers, and a duo neb. CXR showed mild diffuse interstitial prominence suggesting vascular congestion and subtle interstitial edema and few patchy opacities at the lung bases suggesting possibility of developing consolidation/pneumonia. There was a leukocytosis of 16.4. Lactic acid elevated at 2.7, 2.3 on recheck at 2hr, and 3.1 on recheck at 4hr. BNP slightly elevated at 116. Mild hypernatremia of 148. As a result of the interstitial edema, she received 2 doses of 20mg IV lasix. Started empiric therapy for pneumonia with azithromycin and ceftriaxone. The patient is reporting some improvement in sob. She does tell me she has had BLE edema for about 1 month. Did have echocardiogram with normal LV systolic fx and grade I diastolic dysfunction, mild mitral regurgitation, normal RVSP, no pericardial effusion. Has history of recurrent ED visits for asthma exacerbation with last hospitalization 3 years ago for asthma. Has never required intubation. This 56yo F with mild persistent asthma, DINA on CPAP, DM2, hypothyroidism, psychotic depression, anxiety, HTN, HLD, chronic low back pain, and morbid obesity was admitted for acute hypoxic respiratory failure due to asthma exacerbation + bilateral lower lobe PNA. She initially required BiPAP but was weaned off to using nocturnal CPAP as per home regimen. She was weaned off oxygen. She was treated with steroids, nebulized bronchilators, and antibiotics [ceftriaxone and doxycycline]. Blood cultures were negative. She was discharged home on 2 more days of prednisone as well as cefuroxime and doxycycline. Referral should be considered to Pulmonology. Time Spent with Patient Time attestation: Total time spent providing and/or coordinating discharge services: Discharge coordination time: Greater than 30 minutes Quality: Safe Use of Opioids Does Pt have an Active Cancer Diagnosis on the Problem List?: No Quality: Stroke Does the patient have a stroke diagnosis?: No Physical Exam Vital Signs: Vital Signs: Last Vital Signs Temp 97.4 F 10/26/21 11:37 Pulse 88 10/26/21 11:37 Resp 16 10/26/21 11:37 BP 165/87 H 10/26/21 11:37 Pulse Ox 94 10/26/21 11:37 O2 Del Method 10/26/21 11:37 O2 Flow Rate 1 10/26/21 07:16 FiO2 45 10/25/21 04:00 Oxygen Flow Rate 20 10/23/21 04:19 BMI result Body Mass Index 40.3 Gen: in no acute distress HEENT: sclera anicteric, moist mucus membranes Neck: supple Lungs: clear to auscultation bilaterally Heart: regular rate and rhythm, no murmurs Abd: soft, non-tender, non-distended, morbidly obese Ext: no edema Skin: warm/well-perfused Neuro: alert and oriented x3, no focal findings Psych: appropriate affect DS: Data Data Completed and Pending Completed studies during hospitalization [Text1]: Laboratory Results WBC 10.9 X10*3/uL (4.8-10.8) H 10/26/21 06:08 RBC 4.21 X10*6/uL (4.20-5.50) 10/26/21 06:08 Hgb 10.8 g/dl (12.0-16.0) L 10/26/21 06:08 Hct 35.3 % (37.0-47.0) L 10/26/21 06:08 MCV 83.8 fL (80.0-98.0) 10/26/21 06:08 MCH 25.7 pg (27.0-33.0) L 10/26/21 06:08 MCHC 30.6 g/dl (31.0-35.0) L 10/26/21 06:08 RDW 16.4 % (11.0-16.0) H 10/26/21 06:08 Plt Count 327 X10*3/uL (160-400) 10/26/21 06:08 MPV 10.2 fL (9.4-12.3) 10/26/21 06:08 Immature Gran % (Auto) 0.7 % (0.0-0.4) H 10/23/21 04:54 Neut % (Auto) 52.8 % (45-73) 10/23/21 04:54 Lymph % (Auto) 38.5 % (20-40) 10/23/21 04:54 [place] % (Auto) 6.6 % (2-11) 10/23/21 04:54 Eos % (Auto) 1.1 % (0-4) 10/23/21 04:54 Baso % (Auto) 0.3 % (0-2) 10/23/21 04:54 Lymph # (Auto) 6.3 X10*3/uL (1.2-4.9) H 10/23/21 04:54 [place] # (Auto) 1.1 X10*3/uL (0.1-1.2) 10/23/21 04:54 Eos # (Auto) 0.2 X10*3/uL (0.0-0.4) 10/23/21 04:54 Baso # (Auto) 0.1 X10*3/uL (0.0-0.2) 10/23/21 04:54 Abs Immat Gran (auto) 0.11 X10*3/uL (0.00-0.03) H 10/23/21 04:54 Absolute Neuts (auto) 8.7 x10*3/uL (2.0-8.3) H 10/23/21 04:54 Absolute Nucleated RBC 0.000 X10*3/uL (0.0-0.012) 10/26/21 06:08 Nucleated RBC % (auto) 0.0 /100WBC (0.0-0.2) 10/26/21 06:08 Smear Tech's Comments VERIFIED 10/23/21 04:54 VBG pH 7.29 (7.32-7.43) L 10/23/21 05:00 VBG pCO2 64 mmHg 10/23/21 05:00 VBG pO2 59 mmHg 10/23/21 05:00 VBG HCO3 31 mmol/L (22-26) H 10/23/21 05:00 VBG O2 Saturation 79.0 % 10/23/21 05:00 VBG Base Excess 3.0 mmol/L 10/23/21 05:00 Sodium 148 mmol/L (135-145) H 10/23/21 04:54 Potassium 3.5 mmol/L (3.3-5.1) 10/23/21 04:54 Chloride 107 mmol/L (96-108) 10/23/21 04:54 Carbon Dioxide 26 mmol/L (22-29) 10/23/21 04:54 Anion Gap 19 (12-20) 10/23/21 04:54 BUN 13 mg/dL (9-16) 10/23/21 04:54 Creatinine 0.76 mg/dL (0.5-1.4) 10/23/21 04:54 Estim Creat Clear Calc 122.5 10/23/21 04:54 Estimated GFR > 60 10/23/21 04:54 POC Glucose 238 mg/dL (60-115) H 10/26/21 11:40 Random Glucose 92 mg/dL (60-115) 10/23/21 04:54 Estimat Average Glucose 154 mg/dL 10/23/21 13:48 Hemoglobin A1c % 7.0 % 10/23/21 13:48 Lactic Acid 2.7 mmol/L (0.5-2.0) H* 10/23/21 04:54 Lactic Acid F/U @ 2Hr 2.3 mmol/L (0.5-2.0) H* 10/23/21 08:27 Lactic Acid F/U @ 4Hr 3.1 mmol/L (0.5-2.0) H* 10/23/21 11:42 Calcium 8.7 mg/dL (8.4-10.2) 10/23/21 04:54 B-Natriuretic Peptide 116 pg/mL (<100) H 10/23/21 04:54 Procalcitonin 0.20 ng/mL 10/26/21 06:08 COVID-19 (ASHLEY) Negative (Negative) 10/23/21 04:54 COVID-19 Clin Com See Note 10/23/21 04:54 Impressions Chest X-Ray 10/23/21 06:25 IMPRESSION: Mild diffuse interstitial prominence suggesting vascular congestion and subtle interstitial edema. Few patchy opacities at the lung bases raising the possibility of developing consolidation/pneumonia in the proper clinical setting. Short-term radiographic follow-up would be helpful. Chest CT 10/23/21 11:10 IMPRESSION: Atelectasis or small infiltrates in the bilateral lower lobes. No evidence of CHF/pulmonary edema. Fatty liver. Fleischner guidelines were followed. Discharge Plan Discharge Patient Disposition: Home Health Service Discharge Diagnosis: hypoxia from asthma and pneumonia Referrals: [facility] [Primary Care Provider] - 1 Week Chuck Reed MD [Physician] - 1 Week Discharge Medications: New doxycycline hyclate 100 mg Tablet 100 mg PO Q12H Qty: 4 0RF cefuroxime axetil 500 mg tablet 500 mg PO BID Qty: 4 0RF prednisone 20 mg tablet 40 mg PO DAILY Qty: 4 0RF Continued (DME) FreeStyle Lite Strips Strip See Rx Instructions .MEDSUPPLY Qty: 150 11RF Rx Instructions: 5 times a day (DME) lancets [TRUEplus Lancets] 33 gauge misc See Rx Instructions .ROUTE .MEDSUPPLY Qty: 120 11RF Rx Instructions: 4 times a day (DME) pen needle, diabetic [BD Usha 2nd Gen Pen Needle] 32 gauge x 5/32 needle See Rx Instructions .MEDSUPPLY Qty: 100 11RF Rx Instructions: Twice a day propranolol 80 mg tablet 80 mg PO BID 90 Days Qty: 180 3RF Baqsimi 3 mg/actuation spray,non-aerosol 3 mg intranasal ONCE 30 Days Qty: 4 6RF Rx Instructions: [place] once for severe hypoglycemia when patient cannot self-treat with glucose. Afterwards turn on side. May repeat after 15 minutes if patient does not respond. gabapentin 400 mg capsule 400 mg PO TID Qty: 270 1RF metformin 500 mg tablet 1,000 mg PO BID 90 Days Qty: 360 1RF metoclopramide HCl 5 mg tablet 5 mg PO BEDTIME Qty: 30 6RF lidocaine [Lidoderm] 5 % adhesive patch,medicated 1 patch topical DAILY Qty: 15 0RF Rx Instructions: leave on most painful area for up to 12 hrs prednisone 20 mg tablet 40 mg PO DAILY Qty: 10 0RF levothyroxine 125 mcg tablet 1 tab PO DAILY@0600 hydroxyzine HCl 25 mg tablet 1 - 2 tab PO BEDTIME PRN (Reason: Anxiety) albuterol sulfate [ProAir HFA] 90 mcg/actuation HFA aerosol inhaler 2 puff inhalation Q4-6H PRN (Reason: asthma) aripiprazole 20 mg tablet 1 tab PO DAILY nortriptyline 50 mg capsule 1 cap PO BEDTIME Rx Instructions: TAKE WITH 75 MG Humulin R U-500 (Conc) Kwikpen 500 unit/mL (3 mL) insulin pen 140 unit subcut DAILY Humulin R U-500 (Conc) Kwikpen 500 unit/mL (3 mL) insulin pen 120 unit subcut DAILY@1700 clonidine HCl 0.1 mg tablet 0.1 mg PO BEDTIME rosuvastatin [Crestor] 20 mg tablet 20 mg PO DAILY thiamine HCl (vitamin B1) 100 mg tablet 100 mg PO DAILY Rx Instructions: WITH MEAL ferrous sulfate 325 mg (65 mg iron) tablet 325 mg PO Q OTHER DAY clonazepam 1 mg tablet 1 mg PO TID PRN (Reason: Anxiety) valsartan 160 mg tablet 160 mg PO DAILY omeprazole 20 mg capsule,delayed release(DR/EC) 20 mg PO DAILY@0630 nortriptyline 75 mg capsule 75 mg PO BEDTIME Rx Instructions: TAKE WITH 50MG melatonin 5 mg tablet 5 - 10 mg PO BEDTIME PRN (Reason: Sleep) hydrochlorothiazide 25 mg tablet 25 mg PO DAILY cyanocobalamin (vitamin B-12) 1,000 mcg/mL solution 1,000 mcg IM [id number] aspirin 81 mg tablet,delayed release (DR/EC) 81 mg PO DAILY oxybutynin chloride 10 mg tablet extended release 24hr 10 mg PO DAILY Flovent HFA 110 mcg/actuation HFA aerosol inhaler 1 puff PO BID docusate sodium 100 mg capsule 100 mg PO BID cholecalciferol (vitamin D3) 50 mcg (2,000 unit) capsule 50 mcg PO DAILY Januvia 100 mg tablet 100 mg PO DAILY 30 Days Qty: 30 6RF Discharge Orders: Discharge Order (Routine); Ordered 10/26/21 Ordered By: Colt Oneal Diet: Diabetic diet Activity on Discharge: As tolerated Stand Alone Forms: Patient Portal Discharge page Care Plan Goals: recovery from asthma/pneumonia Health Concerns: hypoxia from asthma and pneumonia Plan of Treatment: prednisone 40 mg daily x 2 days cefuroxime 500 mg twice daily x 2 days doxycycline 100 mg twice daily x 2 days Continue CPAP at night. Please follow up with your primary care doctor within 1 week. Ask for referral to Dr Reed at [facility] Pulmonology Please return to the hospital if you experience recurrent or worsening symptoms, Assessment: See Discharge Summary Patient Instructions: Pneumonia (DC)
--- NOTE | 2021-10-26 14:15 | PC.NURSE ---
Alert amd oriented. Denies pain, VSS, afebrile, no acute resp. distress noted. Weaned off 02 this morning. Sat between 90-94% on RA at rest. Evaluated by RT for home 02. New order to discharge patient home with home o2. Went over discharge instructions, follow up apt and medication administrations with patient (daughter translated), verbalized understanding back. Staff transported to the lobby via wheelchair. Left via car with daughter.
== END 2021-10-26 14:22 | disposition home health service (06) | DRG 139 ==
LOC: HO.ED 06:23 → HO.EDOVER 11:00 → HO.IMC 21:41
PROVIDERS: Admitting Provider Physician Assistant; Emergency Provider Emergency Medicine; Visit Provider Family Medicine
DX: J18.9 Pneumonia, unspecified organism (principal); J96.01 Acute respiratory failure with hypoxia; J45.31 Mild persistent asthma with (acute) exacerbation; I10 Essential (primary) hypertension; G89.29 Other chronic pain; F32.A Depression, unspecified; F41.9 Anxiety disorder, unspecified; E03.9 Hypothyroidism, unspecified; Z20.822 Contact with and (suspected) exposure to COVID-19; E11.65 Type 2 diabetes mellitus with hyperglycemia; T38.0X5A Adverse effect of glucocorticoids and synthetic analogues, initial encounter; Z79.4 Long term (current) use of insulin; Z79.51 Long term (current) use of inhaled steroids; Z79.52 Long term (current) use of systemic steroids; Z79.84 Long term (current) use of oral hypoglycemic drugs; Z79.899 Other long term (current) drug therapy
CPT/HCPCS: 36415; 71045; 71250; 80048; 82803; 82947; 83036; 83605; 83880; 84145; 85025; 85027; 87040; 87635; 93005; 94640; 94660; 96365; 96366; 96367; 96368; 96375; 96376; 99285; J0456; J0696; J1650; J1940; J2930; J3475

== ENCOUNTER 2021-11-10 10:20 | Inpatient (IN) | payer MEDICAID, SELFPAY ==
[2021-11-10] VITALS (11 sets, daily range): BP systolic 139–160; BP diastolic 63–85; PULSE 78–108; RESP 18–36; TEMP 36.8–37.3; O2SAT 93–99; BMI 46.2
--- NOTE | ~2021-11-10 | XR_ITS ---
EXAMINATION: XR CHEST CLINICAL INFORMATION: Chest pain. COMPARISON: Chest radiograph done on 10/23/2021. TECHNIQUE: 2 views of the chest were obtained. FINDINGS: Persistent stable bibasilar patchy airspace disease including linear airspace disease at left lung base, similar to prior study dated 10/23/2021. No evidence of any pulmonary venous congestion. Cardiac mediastinal silhouette is within normal limit. No evidence of any pleural effusion or pneumothorax. Overall, no significant change. XR/XR chest 2V IMPRESSION: Bibasilar airspace disease, similar to prior study dated 10/23/2021. No new abnormalities.
--- NOTE | 2021-11-10 10:23 | ECG_ITS ---
Test Reason : CHEST PAIN Blood Pressure : / mmHG Vent. Rate : 091 BPM Atrial Rate : 091 BPM P-R Int : 136 ms QRS Dur : 098 ms QT Int : 362 ms P-R-T Axes : 055 034 063 degrees QTc Int : 445 ms Normal sinus rhythm Minimal voltage criteria for LVH, may be normal variant ( [place] product ) Borderline ECG When compared with ECG of 23-OCT-2021 05:09, Nonspecific T wave abnormality no longer evident in Inferior leads Referred By: Generic ED Physician Electronically Signed By:MARY RIVERS
[2021-11-10 11:22] LABS: MANUAL DIFF FLAG NO
--- NOTE | 2021-11-10 11:22 | PC.NURSE ---
Pt comes in via EMS from home with complaints of CP feels like someone is pushing on her chest upon waking this morning. Pt is A&Ox4, lungs diminished throughout with some wheezing, dyspnea present made worse with exertion. Pt recently DC for pneumonia, per daughter pt was compliant with DC meds but never really felt better. Pt is on 2L NC at baseline for Asthma. IV establsihed, NSR on monitor. Call sandoval within reach. .Will continue to monitor
[2021-11-10 11:23] LABS: Basophils Percent Auto 0.2 % (0-2); Eosinophils Absolute Auto 0.2 X10*3/uL (0.0-0.4); Eosinophils Percent Auto 2.4 % (0-4); Hematocrit 34.3 % (37.0-47.0); Hemoglobin 10.3 g/dl (12.0-16.0); Imm Gran Abs Auto 0.04 X10*3/uL (0.00-0.03); Imm Gran Pct Auto 0.4 % (0.0-0.4); Lymphocytes Absolute Auto 1.9 X10*3/uL (1.2-4.9); Lymphocytes Percent Auto 19.9 % (20-40); Mean Corpuscular Hemoglobin 26.2 pg (27.0-33.0); Mean Corpuscular Volume 87.3 fL (80.0-98.0); Mean Platelet Volume 9.6 fL (9.4-12.3); Monocytes Absolute Auto 0.6 X10*3/uL (0.1-1.2); Neutrophils Absolute Auto 6.6 x10*3/uL (2.0-8.3); Neutrophils Percent Auto 71.1 % (45-73); Platelet Count 204 X10*3/uL (160-400); Red Blood Count 3.93 X10*6/uL (4.20-5.50); Red Cell Distribution Width 15.9 % (11.0-16.0); White Blood Count 9.3 X10*3/uL (4.8-10.8)
[2021-11-10 11:28] LABS: INTERNATIONAL NORM RATIO 1.1 (0.9-1.1)
[2021-11-10 11:40] LABS: Alanine Aminotransferase 20 U/L (0-31); Albumin Level 3.8 g/dL (3.5-5.0); Alkaline Phosphatase 125 U/L (39-117); Anion Gap 14 (12-20); Aspartate Amino Transferase 18 U/L (5-31); Bilirubin Total 0.4 mg/dL (0.0-1.0); Blood Urea Nitrogen 8 mg/dL (9-16); Calcium 8.8 mg/dL (8.4-10.2); Carbon Dioxide 33 mmol/L (22-29); Chloride 104 mmol/L (96-108); Creatinine Clr Calc Pharmacy 126.3; Estimated Glomerular Filt Rate > 60; Glucose Random 148 mg/dL (60-115); Lipase 8 U/L (8-78); Magnesium 1.7 mg/dL (1.6-2.6); Potassium 3.8 mmol/L (3.3-5.1); Sodium 147 mmol/L (135-145); Total Protein 7.2 g/dL (6.5-8.0)
--- NOTE | 2021-11-10 11:42 | ED.CHESTPAIN ---
HPI - Chest Pain General Chief Complaint: Chest Pain Stated Complaint: CP X'S 2 HOUR,NO CARDIAC HX PER EMS Time Seen by Provider: 11/10/21 10:37 Source: patient Mode of arrival: EMS Limitations: language barrier ( Bangladeshi-speaking medical research scientist utilized) History of Present Illness HPI narrative: Patient presents emergency department for evaluation of chest pain shortness of breath. She states that she was recently discharged from the hospital was being treated for pneumonia. At that time of discharge she was sent home with oxygen via nasal cannula which she did not require prior to her most recent hospital admission. She states that she was feeling overall improved, completed her antibiotics and steroids 1 week ago. Over the past 3 days she has noticed an increase in her shortness of breath. Patient and her daughter report that she has had increased work of breathing over the past 2 days, notably worse today. She is reporting diffuse chest pressure, stating my lungs for , the pressure / pain is exacerbated by deep inspiration, movement, cough. Denies fevers, chills, headache, dizziness, lightheadedness, nausea, vomiting, abdominal pain, dysuria, urinary frequency/urgency / hesitancy, numbness or tingling of the extremities. Related Data Home Medications Medication Instructions Recorded Confirmed clonidine HCl 0.1 mg tablet 0.1 mg PO BEDTIME 11/30/19 10/23/21 ferrous sulfate 325 mg (65 mg 325 mg PO Q OTHER DAY 11/30/19 10/23/21 iron) tablet rosuvastatin 20 mg tablet (Crestor) 20 mg PO DAILY 11/30/19 10/23/21 thiamine HCl (vitamin B1) 100 mg 100 mg PO DAILY 11/30/19 10/23/21 tablet aspirin 81 mg tablet,delayed 81 mg PO DAILY 01/01/21 10/23/21 release cyanocobalamin (vitamin B-12) 1,000 mcg IM [id number] 01/01/21 10/23/21 1,000 mcg/mL injection solution fluticasone propionate 110 1 puff PO BID 01/01/21 10/23/21 mcg/actuation HFA aerosol inhaler (Flovent HFA) hydrochlorothiazide 25 mg tablet 25 mg PO DAILY 01/01/21 10/23/21 melatonin 5 mg tablet 5 - 10 mg PO BEDTIME PRN Sleep 01/01/21 10/23/21 nortriptyline 75 mg capsule 75 mg PO BEDTIME 01/01/21 10/23/21 oxybutynin chloride 10 mg 10 mg PO DAILY 01/01/21 10/23/21 tablet,extended release 24 hr clonazepam 1 mg tablet 1 mg PO TID PRN Anxiety 05/07/21 10/23/21 omeprazole 20 mg capsule,delayed 20 mg PO DAILY@0630 05/07/21 10/23/21 release valsartan 160 mg tablet 160 mg PO DAILY 05/07/21 10/23/21 cholecalciferol (vitamin D3) 50 50 mcg PO DAILY 07/12/21 10/23/21 mcg (2,000 unit) capsule docusate sodium 100 mg capsule 100 mg PO BID 09/26/21 10/23/21 albuterol sulfate 90 mcg/actuation 2 puff inhalation Q4-6H PRN asthma 10/23/21 10/23/21 aerosol inhaler (ProAir HFA) aripiprazole 20 mg tablet 1 tab PO DAILY 10/23/21 10/23/21 hydroxyzine HCl 25 mg tablet 1 - 2 tab PO BEDTIME PRN Anxiety 10/23/21 10/23/21 insulin regular hum U-500 conc 500 120 unit subcut DAILY@1700 10/23/21 10/23/21 unit/mL(3 mL) subcut pen (Humulin R U-500 (Conc) Insulin Kwikpen) insulin regular hum U-500 conc 500 140 unit subcut DAILY 10/23/21 10/23/21 unit/mL(3 mL) subcut pen (Humulin R U-500 (Conc) Insulin Kwikpen) levothyroxine 125 mcg tablet 1 tab PO DAILY@0600 10/23/21 10/23/21 nortriptyline 50 mg capsule 1 cap PO BEDTIME 10/23/21 10/23/21 Previous Rx's Medication Instructions Recorded TRUEplus Lancets 33 gauge (lancets) #120 ea 01/10/21 pen needle, diabetic 32 gauge x #100 ea 02/04/21 (BD Usha 2nd Gen Pen Needle) propranolol 80 mg tablet 80 mg PO BID 90 days #180 tabs 05/20/21 glucagon 3 mg/actuation nasal 3 mg intranasal ONCE unresponsive 05/30/21 spray (Baqsimi) hypoglycemia 30 days #4 ea gabapentin 400 mg capsule 400 mg PO TID #270 caps 06/10/21 metformin 500 mg tablet 1,000 mg PO BID 90 days #360 tabs 06/13/21 sitagliptin 100 mg tablet (Januvia) 100 mg PO DAILY 30 days #30 tabs 07/12/21 metoclopramide HCl 5 mg tablet 5 mg PO BEDTIME #30 tabs 07/31/21 lidocaine 5 % topical patch 1 patch topical DAILY #15 ea 08/07/21 (Lidoderm) prednisone 20 mg tablet 40 mg PO DAILY #10 tabs 10/20/21 cefuroxime axetil 500 mg tablet 500 mg PO BID #4 tabs 10/26/21 doxycycline hyclate 100 mg tablet 100 mg PO Q12H #4 tabs 10/26/21 prednisone 20 mg tablet 40 mg PO DAILY #4 tabs 10/26/21 blood sugar diagnostic (FreeStyle #150 ea 10/28/21 Lite Strips) Allergies Allergy/AdvReac Type Severity Reaction Status Date / Time No Known Allergies Allergy Verified 09/26/21 13:41 [No Known Allergies*] Review of Systems Review of Systems: Constitutional : No Weight loss, No Fever, No Chills ENT/Mouth :? No sore throat, No Rhinorrhea Eyes: No Eye Pain, No Swelling Cardiovascular : pos Chest Pain, pos SOB, Positive Dyspnea on Exertion, positive Orthopnea, No Edema, No Palpitations Respiratory : positive Cough, positive Sputum Gastrointestinal : no Nausea, No Vomiting, No Diarrhea, No abdominal Pain, No Hematochezia, No Melena Genitourinary : No Dysuria, No Urinary Frequency Musculoskeletal : No joint pain, No Myalgias, No Joint Swelling Skin : No Skin Lesions, No rash Neuro : No Weakness, No Numbness, No Dizziness, No Headache Psych : No Anxiety/Panic, No Depression Heme/Lymph: No Bruising, No Lymphadenopathy Endocrine : No Polyuria, No Polydipsia Yes all other systems are reviewed and are negative [facility] Past Medical History Attestation statement: The following information was validated with the patient. 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 Low back pain Lumbar spondylosis Migraine Morbid obesity Obesity Obesity due to excess calories Obstructive sleep apnea on CPAP Palpitations Paranoia (psychosis) Patella-femoral syndrome Patellofemoral arthritis Respiratory failure Sacroiliitis Scoliosis of thoracolumbar spine Sinus tachycardia 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) Alcohol intake: never Patient Tobacco Use Status: Never used Tobacco Second Hand Smoke Exposure: No Advance Directives: No Advance Directives Information Provided: Yes service: No Current occupational status: disabled Current occupation: lt handed Sexual orientation: Straight/Heterosexual Gender identity: Female Physical Exam Vital Signs: Vital Signs: Last Vital Signs Temp 98.6 F 11/10/21 11:15 Pulse 90 11/10/21 13:18 Resp 34 H 11/10/21 13:18 BP 140/77 H 11/10/21 13:18 Pulse Ox 95 11/10/21 13:18 O2 Del Method 11/10/21 13:18 O2 Flow Rate 2 11/10/21 13:18 BMI result Body Mass Index 46.2 Appearance: Alert.?Oriented to person, place and time. No acute distress.?Normal affect. Eyes: Pupils equal, round and reactive to light.? ENT: Pharynx normal.?? Neck: Normal inspection.? Neck supple.?? CVS: Heart sounds normal. Normal heart rate and rhythm.? Pulses normal.?? Respiratory: No respiratory distress.? Lung sounds coarse rales to the bilateral lower lobes, on 4L O2 via nasal cannula. Increased work of breathing. Use of accessory muscles Abdomen: Soft and non-tender. Normoactive bowel sounds. Skin: Skin warm and dry.? Normal skin color.? ? Extremities: 2+ bilateral lower extremity pitting edema.? No calf ttp? Neuro: Moves all extremities spontaneously. Sensation intact bilaterally. CN II-XII intact. No focal neuro deficits. Course Course Course Narrative: patient is a 56-year-old female with a past medical history of anemia, anxiety, asthma with no reports of prior intubation, type 2 diabetes with nephropathy dyslipidemia, fibromyalgia, GERD, hypertension, hypothyroidism, obesity, DINA on CPAP presents emergency department today for evaluation of diffuse chest pressure and shortness of breath. note she was recently admitted into the hospital from 824/22-10/26/2021 she presented to the emergency department significantly hypoxic being placed on BiPAP, found to have pneumonia for which she was treated inpatient with azithromycin and ceftriaxone, echocardiogram revealed normal LV systolic function grade 1 diastolic dysfunction mild mitral regurgitation, normal RVSP, and no pericardial effusion. At the time of examination 11:45 patient noted to be tachycardic, and tachypnic, sepsis alert called, will obtain blood culture, lactic cacid, CBC to evaluate for leukocytosis/ anemia, CMP and lipase to evaluate for abnormal electrolytes /abnormal renal function/ abnormal hepatic/biliary function, EKG and troponin to evaluate for ischemia/ACS. Chest x-ray to evaluate for consolidation/ infiltrate/ mass/ pulmonary congestion and Urinalysis. given recent treatment for pneumonia will cover at this time with ceftriaxone IV and azithromycin IV Reevaluation(s) Reevaluation #1: CBC reveals a normocytic anemia consistent with baseline, hemoglobin 10.3 and 34.3. CMP reveals a very mild hypernatremia 147, otherwise unremarkable. BNP 123 consistent CHF. Troponin <3.5, EKG reveals normal sinus rhythm no acute ischemic findings. Lactic acid is normal at 1.7. chest x-ray reveals bibasilar airspace disease similar to prior study 10/23/2021 with no new abnormalities. Will speak to inpatient Medicine Services she will likely require admission for persistent respiratory failure despite nebulizers and IV steroids Time: 12:53 Reevaluation #2: spoke with hospitalist, patient accepted for admission under Dr. Mishra to medicine service for acute on chronic respiratory failure with hypoxemia. patient updated on plan of care and agreeable to hospital admission. Time: 13:15 MDM - Chest Pain Medical Records Data Attestation: I reviewed the patient's medical records. Lab Data Attestation: I reviewed the patient's lab results. Result diagrams: 11/10/21 11:15 11/10/21 11:15 Labs: Lab Results 11/10/21 11/10/21 11/10/21 Range/Units 11:15 11:15 11:15 WBC 9.3 (4.8-10.8) X10*3/uL RBC 3.93 L (4.20-5.50) X10*6/uL Hgb 10.3 L (12.0-16.0) g/dl Hct 34.3 L (37.0-47.0) % MCV 87.3 (80.0-98.0) fL MCH 26.2 L (27.0-33.0) pg MCHC 30.0 L (31.0-35.0) g/dl RDW 15.9 (11.0-16.0) % Plt Count 204 D (160-400) X10*3/uL MPV 9.6 (9.4-12.3) fL Immature Gran % (Auto) 0.4 (0.0-0.4) % Neut % (Auto) 71.1 (45-73) % Lymph % (Auto) 19.9 L (20-40) % Fisher % (Auto) 6.0 (2-11) % Eos % (Auto) 2.4 (0-4) % Baso % (Auto) 0.2 (0-2) % Lymph # (Auto) 1.9 (1.2-4.9) X10*3/uL Fisher # (Auto) 0.6 (0.1-1.2) X10*3/uL Eos # (Auto) 0.2 (0.0-0.4) X10*3/uL Baso # (Auto) 0.0 (0.0-0.2) X10*3/uL Abs Immat Gran (auto) 0.04 H (0.00-0.03) X10*3/uL Absolute Neuts (auto) 6.6 (2.0-8.3) x10*3/uL Absolute Nucleated RBC 0.000 (0.0-0.012) X10*3/uL Nucleated RBC % (auto) 0.0 (0.0-0.2) /100WBC PT 13.0 (10.0-13.1) SEC INR 1.1 (0.9-1.1) Sodium 147 H (135-145) mmol/L Potassium 3.8 (3.3-5.1) mmol/L Chloride 104 (96-108) mmol/L Carbon Dioxide 33 H (22-29) mmol/L Anion Gap 14 (12-20) BUN 8 L (9-16) mg/dL Creatinine 0.68 (0.5-1.4) mg/dL Estim Creat Clear Calc 126.3 Estimated GFR > 60 POC Glucose (60-115) mg/dL Random Glucose 148 H (60-115) mg/dL Lactic Acid (0.5-2.0) mmol/L Calcium 8.8 (8.4-10.2) mg/dL Magnesium 1.7 (1.6-2.6) mg/dL Total Bilirubin 0.4 (0.0-1.0) mg/dL AST 18 (5-31) U/L ALT 20 (0-31) U/L Alkaline Phosphatase 125 H (39-117) U/L Troponin I High Sens (<3.5-17.0) ng/L B-Natriuretic Peptide (<100) pg/mL Total Protein 7.2 (6.5-8.0) g/dL Albumin 3.8 (3.5-5.0) g/dL Lipase 8 (8-78) U/L Urine Color Urine Appearance Urine pH (5.0-9.0) Ur Specific [place] (1.005-1.025) Urine Protein (Neg-Trace) mg/dL Urine Glucose (UA) (Negative) mg/dL Urine Ketones (Negative) mg/dL Urine Blood (Negative) Urine Nitrite (Negative) Ur Leukocyte Esterase (Negative) Urine RBC (0-2) /HPF Urine WBC (0-5) /HPF Ur Squamous Epith Cells (0-2) /HPF Urine Bacteria (None Seen) Hyaline Casts (0-2) /LPF COVID-19 ([facility]) (Negative) COVID-19 Clin Com 11/10/21 11/10/21 11/10/21 Range/Units 11:15 11:59 11:59 WBC (4.8-10.8) X10*3/uL RBC (4.20-5.50) X10*6/uL Hgb (12.0-16.0) g/dl Hct (37.0-47.0) % MCV (80.0-98.0) fL MCH (27.0-33.0) pg MCHC (31.0-35.0) g/dl RDW (11.0-16.0) % Plt Count (160-400) X10*3/uL MPV (9.4-12.3) fL Immature Gran % (Auto) (0.0-0.4) % Neut % (Auto) (45-73) % Lymph % (Auto) (20-40) % Fisher % (Auto) (2-11) % Eos % (Auto) (0-4) % Baso % (Auto) (0-2) % Lymph # (Auto) (1.2-4.9) X10*3/uL Fisher # (Auto) (0.1-1.2) X10*3/uL Eos # (Auto) (0.0-0.4) X10*3/uL Baso # (Auto) (0.0-0.2) X10*3/uL Abs Immat Gran (auto) (0.00-0.03) X10*3/uL Absolute Neuts (auto) (2.0-8.3) x10*3/uL Absolute Nucleated RBC (0.0-0.012) X10*3/uL Nucleated RBC % (auto) (0.0-0.2) /100WBC PT (10.0-13.1) SEC INR (0.9-1.1) Sodium (135-145) mmol/L Potassium (3.3-5.1) mmol/L Chloride (96-108) mmol/L Carbon Dioxide (22-29) mmol/L Anion Gap (12-20) BUN (9-16) mg/dL Creatinine (0.5-1.4) mg/dL Estim Creat Clear Calc Estimated GFR POC Glucose (60-115) mg/dL Random Glucose (60-115) mg/dL Lactic Acid 1.7 (0.5-2.0) mmol/L Calcium (8.4-10.2) mg/dL Magnesium (1.6-2.6) mg/dL Total Bilirubin (0.0-1.0) mg/dL AST (5-31) U/L ALT (0-31) U/L Alkaline Phosphatase (39-117) U/L Troponin I High Sens < 3.5 (<3.5-17.0) ng/L B-Natriuretic Peptide 123 H (<100) pg/mL Total Protein (6.5-8.0) g/dL Albumin (3.5-5.0) g/dL Lipase (8-78) U/L Urine Color Urine Appearance Urine pH (5.0-9.0) Ur Specific [place] (1.005-1.025) Urine Protein (Neg-Trace) mg/dL Urine Glucose (UA) (Negative) mg/dL Urine Ketones (Negative) mg/dL Urine Blood (Negative) Urine Nitrite (Negative) Ur Leukocyte Esterase (Negative) Urine RBC (0-2) /HPF Urine WBC (0-5) /HPF Ur Squamous Epith Cells (0-2) /HPF Urine Bacteria (None Seen) Hyaline Casts (0-2) /LPF COVID-19 ([facility]) Negative (Negative) COVID-19 Clin Com See Note 11/10/21 11/10/21 Range/Units 12:53 14:13 WBC (4.8-10.8) X10*3/uL RBC (4.20-5.50) X10*6/uL Hgb (12.0-16.0) g/dl Hct (37.0-47.0) % MCV (80.0-98.0) fL MCH (27.0-33.0) pg MCHC (31.0-35.0) g/dl RDW (11.0-16.0) % Plt Count (160-400) X10*3/uL MPV (9.4-12.3) fL Immature Gran % (Auto) (0.0-0.4) % Neut % (Auto) (45-73) % Lymph % (Auto) (20-40) % Fisher % (Auto) (2-11) % Eos % (Auto) (0-4) % Baso % (Auto) (0-2) % Lymph # (Auto) (1.2-4.9) X10*3/uL Fisher # (Auto) (0.1-1.2) X10*3/uL Eos # (Auto) (0.0-0.4) X10*3/uL Baso # (Auto) (0.0-0.2) X10*3/uL Abs Immat Gran (auto) (0.00-0.03) X10*3/uL Absolute Neuts (auto) (2.0-8.3) x10*3/uL Absolute Nucleated RBC (0.0-0.012) X10*3/uL Nucleated RBC % (auto) (0.0-0.2) /100WBC PT (10.0-13.1) SEC INR (0.9-1.1) Sodium (135-145) mmol/L Potassium (3.3-5.1) mmol/L Chloride (96-108) mmol/L Carbon Dioxide (22-29) mmol/L Anion Gap (12-20) BUN (9-16) mg/dL Creatinine (0.5-1.4) mg/dL Estim Creat Clear Calc Estimated GFR POC Glucose 78 (60-115) mg/dL Random Glucose (60-115) mg/dL Lactic Acid (0.5-2.0) mmol/L Calcium (8.4-10.2) mg/dL Magnesium (1.6-2.6) mg/dL Total Bilirubin (0.0-1.0) mg/dL AST (5-31) U/L ALT (0-31) U/L Alkaline Phosphatase (39-117) U/L Troponin I High Sens (<3.5-17.0) ng/L B-Natriuretic Peptide (<100) pg/mL Total Protein (6.5-8.0) g/dL Albumin (3.5-5.0) g/dL Lipase (8-78) U/L Urine Color Yellow Urine Appearance Clear Urine pH 7.5 (5.0-9.0) Ur Specific [place] <= 1.005 (1.005-1.025) Urine Protein Negative (Neg-Trace) mg/dL Urine Glucose (UA) Negative (Negative) mg/dL Urine Ketones Negative (Negative) mg/dL Urine Blood Negative (Negative) Urine Nitrite Negative (Negative) Ur Leukocyte Esterase Small (1+) H (Negative) Urine RBC 0-2 (0-2) /HPF Urine WBC 0-5 (0-5) /HPF Ur Squamous Epith Cells 0-2 (0-2) /HPF Urine Bacteria None Seen (None Seen) Hyaline Casts 0-2 (0-2) /LPF COVID-19 ([facility]) (Negative) COVID-19 Clin Com Imaging Data Chest x-ray: Radiologist's impression: FINDINGS: Persistent stable bibasilar patchy airspace disease including linear airspace disease at left lung base, similar to prior study dated 10/23/2021. No evidence of any pulmonary venous congestion. Cardiac mediastinal silhouette is within normal limit. No evidence of any pleural effusion or pneumothorax. Overall, no significant change. XR/XR chest 2V IMPRESSION: Bibasilar airspace disease, similar to prior study dated 10/23/2021. No new abnormalities. ECG Data ECG #1: Attestation: I personally reviewed and interpreted this ECG as follows: ECG interpretation date: 11/10/21 Prior ECG tracings: available for review Interpretation: Rate: 91 Rhythm:? normal sinus rhythm [place]:? normal Normal P waves.? Normal [place].?? Normal QRS complex.?? ST T wave :?? no ST elevation, no ST depression, no T-wave inversion qTC: 445 The study has been interpreted contemporaneously by me. Discharge Plan Discharge Clinical Impression: Acute on chronic respiratory failure with hypoxemia Patient Disposition: Admitted As Inpatient
[2021-11-10 11:46] LABS: B Type Natriuretic Peptide 123 pg/mL (<100); Troponin-I High Sensitivity < 3.5 ng/L (<3.5-17.0)
[2021-11-10] MEDS: Albuterol/Iprat 2.5/0.5MG 3 ML AMPUL.NEB INHALE ×2 (12:11→19:35)
[2021-11-10] MEDS: Albuterol Sulfate 5 MG, Albuterol Sulfate (0.083%) 2.5 MG 7.5 MG INHALE (12:11)
[2021-11-10] MEDS: cefTRIAXone sodium 1 GM in 0.9 % Sodium Chloride 50 ML IV (12:17)
[2021-11-10] MEDS: methylPREDNISolone Sod Succ 125 MG/2 ML VIAL IVPUSH (12:17)
[2021-11-10 12:34] LABS: Lactic Acid 1.7 mmol/L (0.5-2.0)
[2021-11-10 12:51] LABS: COVID-19 Test Negative (Negative)
[2021-11-10 13:12] LABS: Appearance Urine Clear; Color Urine Yellow; Glucose Urine UA Negative (Negative); Leukocyte Esterase Urine Small (1+) (Negative); Nitrite Urine Negative (Negative); PH 7.5 (5.0-9.0); Specific Gravity - Urine <= 1.005 (1.005-1.025); Urine Blood Negative (Negative); Urine Ketones Negative (Negative); Urine Protein Negative (Neg-Trace)
[2021-11-10] MEDS: Azithromycin 500 MG in 0.9 % Sodium Chloride 250 ML 125 MG IV (13:14)
[2021-11-10 13:22] LABS: Bacteria Urine None Seen (None Seen); Hyaline Casts Urine 0-2 /LPF (0-2); RBC Urine 0-2 /HPF (0-2); Squamous Epithelial Cell Urine 0-2 /HPF (0-2); UACC Culture Trigger YES; WBC Urine 0-5 /HPF (0-5)
[2021-11-10 14:16] LABS: Glucose, Whole Blood 78 mg/dL (60-115)
--- NOTE | 2021-11-10 14:29 | PM.IMHP ---
History of Present Illness Date of Service: 11/10/21 Chief Complaint: Difficulty breathing, coughing A 56 years old lady with PMH of chronic hypoxic failure on 2 L, COPD, diabetes, morbid obesity, DINA on CPAP, fibromyalgia among others who presents to the hospital complaining of worsening shortness of breath and dyspnea for the last week. The patient was discharged on the hospital almost 2 weeks ago after being treated for pneumonia. She was discharged on oxygen supplement as she failed to maintain O2 sat in 90s on ambulation. Treated with doxycycline and Ceftin at time of discharge. Reported that she improved at the beginning but for the last week she noticed worsening shortness of breath, dyspnea, wheezing and chest pain related to coughing which was mildly productive of thick mucus. Denies any fever, chills, palpitation, abdominal pain, nausea or vomiting or change in bowel habit or urinary symptoms. In the emergency she was found to be in respiratory distress with elevated respiratory rate increased oxygen requirement. Treated with IV steroids and nebulizer with no significant improvement. Will be admitted for further evaluation and treatment. Review of Systems Review of Systems: No fever, chills but has utilized weakness No chest pain, palpitation Increased dyspnea and coughing No abdominal pain, nausea or vomiting No urinary symptoms No any rash or wounds PMFSH Medical History Anemia Anxiety Asthma Asthma exacerbation Bilateral pneumonia Chest pain Chronic pain syndrome Depression 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, uncontrolled Diabetic nephropathy associated with type 2 diabetes mellitus Dyslipidemia Family history of colon cancer Fibromyalgia Gastroparesis Genu valgum GERD (gastroesophageal reflux disease) Hemorrhoids HTN (hypertension) 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 due to insulin Hypothyroidism Inappropriate sinus tachycardia Insomnia 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 Paternal Aunt Stomach cancer Sister Stomach cancer Sister Uterine cancer Surgical History H/O esophagogastroduodenoscopy History of arthroscopy of right knee History of bilateral carpal tunnel release History of bladder surgery History of colonoscopy History of tubal ligation Hx of section Hx of tonsillectomy Social History Household Members: Family Housing: Apartment Are you a primary child care team lead to a significant other at home: No Do you presently have visiting nurse or other home services: Yes ([employer] LAT[employer] OPER[employer]) Alcohol intake: never Patient Tobacco Use Status: Never used Tobacco Second Hand Smoke Exposure: No Use of substances other than those prescribed or required for medical reasons: No Have you been hit, kicked, punched, or otherwise hurt by someone within the past year? If so, by whom?: No Do you feel safe in your current relationship?: No Current Relationship Is there a partner from a previous relationship who is making you feel unsafe now?: No Are you made to feel afraid or neglected: No Advance Directives: No Advance Directives Information Provided: Yes Advance Directives on File: No Do you have thoughts of harming others: None Do you have a plan to hurt others: No Plan Recently lost weight without trying: No Nutrition Risks: No Nutritional Risk Patient : No : No Poor oral hygiene: No service: No Current occupational status: disabled Current occupation: lt handed Sexual orientation: Straight/Heterosexual Gender identity: Female Meds Allergies Allergy/AdvReac Type Severity Reaction Status Date / Time No Known Allergies Allergy Verified 09/26/21 13:41 [No Known Allergies*] Active Medications: Current Medications Acetaminophen (Acetaminophen 325 Mg Tablet) 650 mg PO Q6H PRN PRN Reason: Pain, Mild (Pain Scale 1-3) Albuterol Sulfate (Albuterol Sulfate (0.083%) 2.5 Mg/3 Ml Vial.Neb) 2.5 mg INHALE Q3H PRN PRN Reason: Shortness of Breath/Wheezing Albuterol/Ipratropium (Albuterol/Iprat 2.5/0.5mg 3 Ml Ampul.Neb) 3 ml INHALE RQ4H WHILE AWAKE [facility] Azithromycin (Azithromycin 500 Mg Tablet) 500 mg PO Q24H [facility] Albuterol Sulfate 5 mg/ (Albuterol/Ipratropium 3 ml) 0 mg INHALE ONCE ONE Stop: 11/10/21 14:14 Enoxaparin Sodium (Enoxaparin Sodium 40 Mg/0.4 Ml Syringe) 40 mg SUBCUT Q24H [facility] Furosemide (Furosemide 40 Mg/4 Ml Vial) 40 mg IVPUSH DAILY [facility]; Protocol Insulin Human Lispro (Insulin Lispro 100 Unit/Ml 3 Ml Vial) 0 unit SUBCUT QIDACHS [facility]; Protocol Methylprednisolone Sodium Succinate (Methylprednisolone Sod Succ 40 Mg/Ml Vial) 40 mg IVPUSH Q12H [facility] Ondansetron HCl (Ondansetron Hcl 4 Mg/2 Ml Vial) 4 mg IVPUSH Q8H PRN PRN Reason: Nausea and Vomiting Pharmacy Consult (Consult Rx Perform Med Rec) 1 each MISCELLANE ONCE PRN PRN Reason: Consult order Sodium Chloride (0.9 % Sodium Chloride Flush 3 Ml Syringe) 3 ml IVFLUSH QSHIFT [facility] Home Medications Medication Instructions Recorded Confirmed Last Taken Type clonidine HCl 0.1 mg tablet 0.1 mg PO BEDTIME 11/30/19 11/10/21 11/09/21 History ferrous sulfate 325 mg (65 mg 325 mg PO Q OTHER DAY 11/30/19 11/10/21 10/23/21 History iron) tablet rosuvastatin 20 mg tablet (Crestor) 20 mg PO DAILY 11/30/19 11/10/21 11/10/21 History thiamine HCl (vitamin B1) 100 mg 100 mg PO DAILY 11/30/19 11/10/21 11/10/21 History tablet aspirin 81 mg tablet,delayed 81 mg PO DAILY 01/01/21 11/10/21 11/10/21 History release cyanocobalamin (vitamin B-12) 1,000 mcg IM [id number] 01/01/21 11/10/21 Unknown History 1,000 mcg/mL injection solution fluticasone propionate 110 1 puff PO BID 01/01/21 11/10/21 11/10/21 History mcg/actuation HFA aerosol inhaler (Flovent HFA) hydrochlorothiazide 25 mg tablet 25 mg PO DAILY 01/01/21 11/10/21 11/10/21 History melatonin 5 mg tablet 5 - 10 mg PO BEDTIME PRN Sleep 1111/10/21 11/09/21 History nortriptyline 75 mg capsule 75 mg PO BEDTIME 01/01/21 11/10/21 11/09/21 History oxybutynin chloride 10 mg 10 mg PO DAILY 01/01/21 11/10/21 11/10/21 History tablet,extended release 24 hr clonazepam 1 mg tablet 1 mg PO TID PRN Anxiety 05/07/21 11/10/21 11/10/21 History omeprazole 20 mg capsule,delayed 20 mg PO DAILY@0630 05/07/21 11/10/21 11/10/21 History release valsartan 160 mg tablet 160 mg PO DAILY 05/07/21 11/10/21 11/10/21 History cholecalciferol (vitamin D3) 50 50 mcg PO DAILY 07/12/21 11/10/21 11/10/21 History mcg (2,000 unit) capsule docusate sodium 100 mg capsule 100 mg PO BID 09/26/21 11/10/21 11/10/21 History albuterol sulfate 90 mcg/actuation 2 puff inhalation Q4-6H PRN asthma 10/23/21 11/10/21 11/10/21 History aerosol inhaler (ProAir HFA) aripiprazole 20 mg tablet 1 tab PO DAILY 10/23/21 11/10/21 11/10/21 History hydroxyzine HCl 25 mg tablet 1 - 2 tab PO BEDTIME PRN Anxiety 10/23/21 11/10/21 11/09/21 History insulin regular hum U-500 conc 500 120 unit subcut DAILY@1700 10/23/21 11/10/21 11/10/21 History unit/mL(3 mL) subcut pen (Humulin R U-500 (Conc) Insulin Kwikpen) insulin regular hum U-500 conc 500 140 unit subcut DAILY 10/23/21 11/10/21 11/10/21 History unit/mL(3 mL) subcut pen (Humulin R U-500 (Conc) Insulin Kwikpen) levothyroxine 125 mcg tablet 1 tab PO DAILY@0600 10/23/21 11/10/21 11/10/21 History nortriptyline 50 mg capsule 1 cap PO BEDTIME 10/23/21 11/10/21 11/09/21 History Physical Exam Vital Signs and Narrative: Vital Signs: Last Vital Signs Temp 98.6 F 11/10/21 11:15 Pulse 90 11/10/21 13:18 Resp 34 H 11/10/21 13:18 BP 140/77 H 11/10/21 13:18 Pulse Ox 95 11/10/21 13:18 O2 Del Method 11/10/21 13:18 O2 Flow Rate 2 11/10/21 13:18 BMI result Body Mass Index 46.2 Const: Other: Constitutional : Alert, interactive, morbidly obese, Neck : Normal inspection, Supple Cardiovascular : RRR, no JVP, +1 bilateral lower extremity edema Respiratory : Significantly decreased bilateral air entry, basal fine crackles bilaterally, bilateral expiratory wheezes, in respiratory distress mild using accessory muscles and tachypneic Gastrointestinal: soft, lax, Normal bowel sounds, Non tender Skin : Warm, Dry Neurological : Alert & oriented x3, No focal deficit , CN 2-12 within normal Results Labs CBC and Chem 7: 11/11/21 06:19 11/11/21 06:19 Labs: Laboratory Results - last 24 hr 11/10/21 11/10/21 11/10/21 11:15 11:15 11:15 MCV 87.3 MCH 26.2 L MCHC 30.0 L RDW 15.9 Plt Count 204 D MPV 9.6 Immature Gran % (Auto) 0.4 Neut % (Auto) 71.1 Lymph % (Auto) 19.9 L Dillon % (Auto) 6.0 Eos % (Auto) 2.4 Baso % (Auto) 0.2 Lymph # (Auto) 1.9 Dillon # (Auto) 0.6 Eos # (Auto) 0.2 Baso # (Auto) 0.0 Abs Immat Gran (auto) 0.04 H Absolute Neuts (auto) 6.6 Absolute Nucleated RBC 0.000 Nucleated RBC % (auto) 0.0 PT 13.0 INR 1.1 Anion Gap 14 Estim Creat Clear Calc 126.3 Estimated GFR > 60 POC Glucose Random Glucose 148 H Lactic Acid Calcium 8.8 Magnesium 1.7 Total Bilirubin 0.4 AST 18 ALT 20 Alkaline Phosphatase 125 H B-Natriuretic Peptide Total Protein 7.2 Albumin 3.8 Lipase 8 Urine Color Urine Appearance Urine pH Ur Specific [place] Urine Protein Urine Glucose (UA) Urine Ketones Urine Blood Urine Nitrite Ur Leukocyte Esterase Urine RBC Urine WBC Ur Squamous Epith Cells Urine Bacteria Hyaline Casts COVID-19 ([facility]) COVID-19 Clin Com 11/10/21 11/10/21 11/10/21 11:15 11:59 11:59 MCV MCH MCHC RDW Plt Count MPV Immature Gran % (Auto) Neut % (Auto) Lymph % (Auto) Dillon % (Auto) Eos % (Auto) Baso % (Auto) Lymph # (Auto) Dillon # (Auto) Eos # (Auto) Baso # (Auto) Abs Immat Gran (auto) Absolute Neuts (auto) Absolute Nucleated RBC Nucleated RBC % (auto) PT INR Anion Gap Estim Creat Clear Calc Estimated GFR POC Glucose Random Glucose Lactic Acid 1.7 Calcium Magnesium Total Bilirubin AST ALT Alkaline Phosphatase B-Natriuretic Peptide 123 H Total Protein Albumin Lipase Urine Color Urine Appearance Urine pH Ur Specific [place] Urine Protein Urine Glucose (UA) Urine Ketones Urine Blood Urine Nitrite Ur Leukocyte Esterase Urine RBC Urine WBC Ur Squamous Epith Cells Urine Bacteria Hyaline Casts COVID-19 ([facility]) Negative COVID-19 Clin Com See Note 11/10/21 11/10/21 12:53 14:13 MCV MCH MCHC RDW Plt Count MPV Immature Gran % (Auto) Neut % (Auto) Lymph % (Auto) [place] % (Auto) Eos % (Auto) Baso % (Auto) Lymph # (Auto) Dillon # (Auto) Eos # (Auto) Baso # (Auto) Abs Immat Gran (auto) Absolute Neuts (auto) Absolute Nucleated RBC Nucleated RBC % (auto) PT INR Anion Gap Estim Creat Clear Calc Estimated GFR POC Glucose 78 Random Glucose Lactic Acid Calcium Magnesium Total Bilirubin AST ALT Alkaline Phosphatase B-Natriuretic Peptide Total Protein Albumin Lipase Urine Color Yellow Urine Appearance Clear Urine pH 7.5 Ur Specific [place] <= 1.005 Urine Protein Negative Urine Glucose (UA) Negative Urine Ketones Negative Urine Blood Negative Urine Nitrite Negative Ur Leukocyte Esterase Small (1+) H Urine RBC 0-2 Urine WBC 0-5 Ur Squamous Epith Cells 0-2 Urine Bacteria None Seen Hyaline Casts 0-2 COVID-19 ([facility]) COVID-19 Clin Com Imaging Radiologist's Impressions: Impressions Chest X-Ray 11/10/21 11:28 IMPRESSION: Bibasilar airspace disease, similar to prior study dated 10/23/2021. No new abnormalities. Assessment and Plan (1) Morbid obesity: Status: Acute (2) Acute on chronic respiratory failure with hypoxemia: Status: Acute (3) Obstructive sleep apnea on CPAP: Status: Acute (4) COPD exacerbation: Status: Acute Plan A 56 years old lady with PMH of chronic hypoxic failure on 2 L, COPD, diabetes, morbid obesity, DINA on CPAP, fibromyalgia among others who presents to the hospital complaining of worsening shortness of breath and dyspnea for the last week. Acute on chronic hypoxic respiratory failure 2/2 COPD exacerbation CXR showing same changes as previously, no fever or chills or leukocytosis IV steroids b.i.d. for now Bronchodilator nebulizers ATC and p.r.n. Azithromycin daily Wean oxygen down as tolerated Mucinex, Tessalon around the clock DINA on CPAP Continue CPAP at bedtime Morbid obesity Advised to lose weight Type 2 diabetes Insulin next [place] diabetic diet Hypothyroidism Continue thyroxine HLD continue statin Continue the rest of home medications once med rec is done DVT PPX Lovenox The patient will need 2 Overnight hospital stay for treatment of acute hypoxic respiratory failure to prevent possible decompensation and need for higher level of care pending safe discharge plan Quality Stroke Does the patient have a stroke diagnosis?: No VTE Prior VTE?: No VTE Risk Level:: Medical - moderate - high VTE Device Contraindication: Treatment Not Indicated VTE Drug Contraindication: N/A - Med Ordered
--- NOTE | 2021-11-10 15:30 | PHA.MEDREC ---
Pharmacy Consult ? Medication Reconciliation Pharmacy has completed the medication reconciliation. Patient said nothing changed since discharge and took meds in the am
[2021-11-10] MEDS: Albuterol Sulfate 5 MG, Albuterol/Iprat 2.5/0.5MG 3 ML 3 ML INHALE (15:37)
[2021-11-10] MEDS: Furosemide 40 MG/4 ML VIAL IVPUSH (16:01)
[2021-11-10] MEDS: guaiFENesin LA 600 MG TAB.ER.12H PO ×2 (16:05→22:24)
[2021-11-10] MEDS: Benzonatate 100 MG CAPSULE PO ×2 (16:05→22:24)
[2021-11-10] MEDS: 0.9 % Sodium Chloride Flush 3 ML SYRINGE IVFLUSH ×2 (16:09→23:16)
[2021-11-10] MEDS: Enoxaparin Sodium 40 MG/0.4 ML SYRINGE SUBCUT (17:53)
[2021-11-10] MEDS: Insulin Lispro 100 UNIT/ML 3 ML VIAL SUBCUT ×2 (17:59→22:24)
[2021-11-10 18:21] LABS: Glucose, Whole Blood 166 mg/dL (60-115)
[2021-11-10 20:23] LABS: Glucose, Whole Blood 288 mg/dL (60-115)
[2021-11-10] MEDS: Acetaminophen 325 MG TABLET 650 MG PO (22:29)
[2021-11-10 23:31] LABS: Glucose, Whole Blood 300 mg/dL (60-115)
[2021-11-11] VITALS (9 sets, daily range): BP systolic 136–164; BP diastolic 71–89; PULSE 78–105; RESP 16–20; TEMP 36.1–37.1; O2SAT 93–98
[2021-11-11 06:50] LABS: Hematocrit 32.4 % (37.0-47.0); Hemoglobin 9.8 g/dl (12.0-16.0); Mean Corpuscular HGB Conc 30.2 g/dl (31.0-35.0); Mean Corpuscular Volume 85.9 fL (80.0-98.0); Platelet Count 208 X10*3/uL (160-400); Red Blood Count 3.77 X10*6/uL (4.20-5.50); Red Cell Distribution Width 15.8 % (11.0-16.0); White Blood Count 9.5 X10*3/uL (4.8-10.8)
[2021-11-11 07:10] LABS: Anion Gap 17 (12-20); Blood Urea Nitrogen 13 mg/dL (9-16); Carbon Dioxide 29 mmol/L (22-29); Chloride 100 mmol/L (96-108); Creatinine Clr Calc Pharmacy 128.2; Estimated Glomerular Filt Rate > 60; Potassium 4.3 mmol/L (3.3-5.1); Sodium 142 mmol/L (135-145)
[2021-11-11 07:24] LABS: Glucose Random 376 mg/dL (60-115)
[2021-11-11] MEDS: Albuterol/Iprat 2.5/0.5MG 3 ML AMPUL.NEB INHALE ×4 (07:42→19:36)
[2021-11-11 07:46] LABS: Glucose, Whole Blood 324 mg/dL (60-115)
[2021-11-11] MEDS: guaiFENesin LA 600 MG TAB.ER.12H PO ×2 (08:53→20:51)
[2021-11-11] MEDS: methylPREDNISolone Sod Succ 40 MG/ML VIAL IVPUSH (08:53)
[2021-11-11] MEDS: Benzonatate 100 MG CAPSULE PO ×3 (08:53→20:51)
[2021-11-11] MEDS: Furosemide 40 MG/4 ML VIAL IVPUSH (08:53)
[2021-11-11] MEDS: Insulin Glargine,Hum.rec.anlog 100 UNIT/ML 10 ML VIAL 30 UNIT SUBCUT ×2 (08:54→20:49)
[2021-11-11] MEDS: Insulin Lispro 100 UNIT/ML 3 ML VIAL SUBCUT ×5 (08:54→20:50)
[2021-11-11] MEDS: Aspirin Enteric Coated 81 MG TABLET.DR PO (09:28)
[2021-11-11] MEDS: Cholecalciferol (Vitamin D3) 25 MCG TABLET 50 MCG PO (09:28)
[2021-11-11] MEDS: ARIPiprazole 20 MG TABLET PO (09:28)
[2021-11-11] MEDS: 0.9 % Sodium Chloride Flush 3 ML SYRINGE IVFLUSH ×3 (09:29→20:52)
[2021-11-11] MEDS: Propranolol HCL 40 MG TABLET 80 MG PO ×2 (09:40→20:52)
[2021-11-11] MEDS: Valsartan 160 MG TABLET PO (09:40)
[2021-11-11] MEDS: hydroCHLOROthiazide 25 MG TABLET PO (09:40)
[2021-11-11] MEDS: Thiamine HCL 100 MG TABLET PO (09:40)
[2021-11-11] MEDS: Gabapentin 400 MG CAPSULE PO ×3 (09:41→20:51)
[2021-11-11] MEDS: Docusate Sodium 100 MG CAPSULE PO ×2 (09:41→20:51)
[2021-11-11] MEDS: SITagliptin Phosphate 100 MG TABLET PO (09:41)
--- NOTE | 2021-11-11 09:48 | MHC.CM.PN ---
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
[2021-11-11 11:25] LABS: Glucose, Whole Blood 421 mg/dL (60-115)
--- NOTE | 2021-11-11 11:51 | HO.PM.IMPN ---
Subjective Subjective Date of Service: 11/11/21 Interval History: Feels much better this morning Still requiring oxygen supplement Chest pain and coughing improved No other overnight events Review of Systems No fever, chills but has utilized weakness No chest pain, palpitation Improving dyspnea and coughing No abdominal pain, nausea or vomiting No urinary symptoms No any rash or wounds Physical Exam Vital Signs: Vital Signs: Last Vital Signs Temp 97.0 F 11/11/21 07:39 Pulse 102 H 11/11/21 07:45 Resp 16 11/11/21 07:45 BP 136/71 11/11/21 07:39 Pulse Ox 95 11/11/21 07:39 O2 Del Method 11/11/21 07:39 O2 Flow Rate 3 11/11/21 07:39 BMI result Body Mass Index 46.2 Const: Other: Constitutional : Alert, interactive, morbidly obese, Neck : Normal inspection, Supple Cardiovascular : RRR, no JVP, +1 bilateral lower extremity edema Respiratory : decreased bilateral air entry, no crackles,, bilateral expiratory wheezes, mild specially distress Gastrointestinal: soft, lax, Normal bowel sounds, Non tender Skin : Warm, Dry Neurological : Alert & oriented x3, No focal deficit Objective Data Active Medications Acetaminophen (Acetaminophen 325 Mg Tablet) 650 mg PO Q6H PRN PRN Reason: Pain, Mild (Pain Scale 1-3) Last Admin: 11/10/21 22:29 Dose: 650 mg Documented By: MARIA GUADALUPE Albuterol Sulfate (Albuterol Sulfate (0.083%) 2.5 Mg/3 Ml Vial.Neb) 2.5 mg INHALE Q3H PRN PRN Reason: Shortness of Breath/Wheezing Albuterol Sulfate (Albuterol Sulfate 90 Mcg 8 Gm Inhaler) 2 puff INHALE Q4H PRN PRN Reason: asthma Albuterol/Ipratropium (Albuterol/Iprat 2.5/0.5mg 3 Ml Ampul.Neb) 3 ml INHALE RQ4H WHILE AWAKE [facility] Last Admin: 11/11/21 07:42 Dose: 3 ml Documented By: MARKIE Aripiprazole (Aripiprazole 20 Mg Tablet) 20 mg PO DAILY [facility] Last Admin: 11/11/21 09:28 Dose: 20 mg Documented By: ISMAEL Aspirin (Aspirin Enteric Coated 81 Mg Tablet.) 81 mg PO DAILY [facility] Last Admin: 11/11/21 09:28 Dose: 81 mg Documented By: ISMAEL Azithromycin (Azithromycin 500 Mg Tablet) 500 mg PO Q24H [facility] Benzonatate (Benzonatate 100 Mg Capsule) 100 mg PO TID [facility] Last Admin: 11/11/21 08:53 Dose: 100 mg Documented By: ISMAEL Clonazepam (Clonazepam 1 Mg Tablet) 1 mg PO TID PRN PRN Reason: Anxiety Clonidine HCl (Clonidine Hcl 0.1 Mg Tablet) 0.1 mg PO BEDTIME [facility]; Protocol Cyanocobalamin (Cyanocobalamin (Vitamin B-12) 1,000 Mcg/Ml Vial) 1,000 mcg IM Q2M [facility] Docusate Sodium (Docusate Sodium 100 Mg Capsule) 100 mg PO BID [facility] Last Admin: 11/11/21 09:41 Dose: 100 mg Documented By: ISMAEL Enoxaparin Sodium (Enoxaparin Sodium 40 Mg/0.4 Ml Syringe) 40 mg SUBCUT Q24H [facility] Last Admin: 11/10/21 17:53 Dose: 40 mg Documented By: JOLENE Ferrous Sulfate (Ferrous Sulfate 324 Mg Tablet.) 324 mg PO Q48H [facility] Fluticasone Propionate (Fluticasone Propionate 100 Mcg Blst.W.Dev) 1 puff INHALE RBID [facility] Furosemide (Furosemide 40 Mg/4 Ml Vial) 40 mg IVPUSH DAILY [facility]; Protocol Last Admin: 11/11/21 08:53 Dose: 40 mg Documented By: ISMAEL Gabapentin (Gabapentin 400 Mg Capsule) 400 mg PO TID [facility] Last Admin: 11/11/21 09:41 Dose: 400 mg Documented By: ISMAEL Guaifenesin (Guaifenesin La 600 Mg Tab.Er.12h) 600 mg PO BID [facility] Last Admin: 11/11/21 08:53 Dose: 600 mg Documented By: ISMAEL Hydrochlorothiazide (Hydrochlorothiazide 25 Mg Tablet) 25 mg PO DAILY [facility]; Protocol Last Admin: 11/11/21 09:40 Dose: 25 mg Documented By: ISMAEL Hydroxyzine HCl (Hydroxyzine Hcl 25 Mg Tablet) 25 mg PO BEDTIME PRN PRN Reason: Anxiety Insulin Glargine (Insulin Glargine,Hum.Rec.Anlog 100 Unit/Ml 10 Ml Vial) 30 unit SUBCUT DAILY [facility] Last Admin: 11/11/21 08:54 Dose: 30 unit Documented By: ISMAEL Insulin Human Lispro (Insulin Lispro 100 Unit/Ml 3 Ml Vial) 0 unit SUBCUT QIDACHS [facility]; Protocol Last Admin: 11/11/21 08:54 Dose: 8 unit Documented By: ISMAEL Levothyroxine Sodium (Levothyroxine Sodium 125 Mcg Tablet) 125 mcg PO DAILY@0600 [facility] Melatonin (Melatonin 3 Mg Tablet) 9 mg PO BEDTIME PRN PRN Reason: Sleep Methylprednisolone Sodium Succinate (Methylprednisolone Sod Succ 40 Mg/Ml Vial) 40 mg IVPUSH Q12H [facility] Last Admin: 11/11/21 08:53 Dose: 40 mg Documented By: ISMAEL Metoclopramide HCl (Metoclopramide Hcl 5 Mg Tablet) 5 mg PO BEDTIME [facility] Nortriptyline HCl (Nortriptyline Hcl 25 Mg Capsule) 50 mg PO BEDTIME [facility] Nortriptyline HCl (Nortriptyline Hcl 25 Mg Capsule) 75 mg PO BEDTIME [facility] Omeprazole (Omeprazole 20 Mg Capsule.Dr) 20 mg PO DAILY@0630 [facility] Ondansetron HCl (Ondansetron Hcl 4 Mg/2 Ml Vial) 4 mg IVPUSH Q8H PRN PRN Reason: Nausea and Vomiting Oxybutynin Chloride (Oxybutynin Chloride Er 5 Mg Tab.Er.24) 10 mg PO DAILY [facility] Last Admin: 11/11/21 09:41 Dose: 10 mg Documented By: ISMAEL Pharmacy Consult (Consult Rx Perform Med Rec) 1 each MISCELLANE ONCE PRN PRN Reason: Consult order Propranolol HCl (Propranolol Hcl 40 Mg Tablet) 80 mg PO BID [facility]; Protocol Last Admin: 11/11/21 09:40 Dose: 80 mg Documented By: ISMAEL Sitagliptin Phosphate (Sitagliptin Phosphate 100 Mg Tablet) 100 mg PO DAILY [facility] Last Admin: 11/11/21 09:41 Dose: 100 mg Documented By: ISMAEL Sodium Chloride (0.9 % Sodium Chloride Flush 3 Ml Syringe) 3 ml IVFLUSH QSHIFT [facility] Last Admin: 11/11/21 09:29 Dose: 3 ml Documented By: ISMAEL Thiamine HCl (Thiamine Hcl 100 Mg Tablet) 100 mg PO DAILY [facility] Last Admin: 11/11/21 09:40 Dose: 100 mg Documented By: ISMAEL Valsartan (Valsartan 160 Mg Tablet) 160 mg PO DAILY [facility]; Protocol Last Admin: 11/11/21 09:40 Dose: 160 mg Documented By: ISMAEL Vitamin D (Cholecalciferol (Vitamin D3) 25 Mcg Tablet) 50 mcg PO DAILY [facility] Last Admin: 11/11/21 09:28 Dose: 50 mcg Documented By: ISMAEL Labs CBC & Chem 7: 11/11/21 06:19 11/11/21 06:19 Labs: Laboratory Results - last 24 hr 11/10/21 11/10/21 11/10/21 11:59 11:59 12:53 MCV MCH MCHC RDW Plt Count MPV Absolute Nucleated RBC Nucleated RBC % (auto) Anion Gap Estim Creat Clear Calc Estimated GFR POC Glucose Random Glucose Lactic Acid 1.7 Calcium Urine Color Yellow Urine Appearance Clear Urine pH 7.5 Ur Specific [place] <= 1.005 Urine Protein Negative Urine Glucose (UA) Negative Urine Ketones Negative Urine Blood Negative Urine Nitrite Negative Ur Leukocyte Esterase Small (1+) H Urine RBC 0-2 Urine WBC 0-5 Ur Squamous Epith Cells 0-2 Urine Bacteria None Seen Hyaline Casts 0-2 COVID-19 ([facility]) Negative COVID-19 Clin Com See Note 11/10/21 11/10/21 11/10/21 14:13 17:51 20:18 MCV MCH MCHC RDW Plt Count MPV Absolute Nucleated RBC Nucleated RBC % (auto) Anion Gap Estim Creat Clear Calc Estimated GFR POC Glucose 78 166 H 288 H Random Glucose Lactic Acid Calcium Urine Color Urine Appearance Urine pH Ur Specific [place] Urine Protein Urine Glucose (UA) Urine Ketones Urine Blood Urine Nitrite Ur Leukocyte Esterase Urine RBC Urine WBC Ur Squamous Epith Cells Urine Bacteria Hyaline Casts COVID-19 ([facility]) COVID-19 Clin Com 11/10/21 11/11/21 11/11/21 23:10 06:19 06:19 MCV 85.9 MCH 26.0 L MCHC 30.2 L RDW 15.8 Plt Count 208 MPV 10.0 Absolute Nucleated RBC 0.000 Nucleated RBC % (auto) 0.0 Anion Gap 17 Estim Creat Clear Calc 128.2 Estimated GFR > 60 POC Glucose 300 H Random Glucose 376 H* Lactic Acid Calcium 9.0 Urine Color Urine Appearance Urine pH Ur Specific [place] Urine Protein Urine Glucose (UA) Urine Ketones Urine Blood Urine Nitrite Ur Leukocyte Esterase Urine RBC Urine WBC Ur Squamous Epith Cells Urine Bacteria Hyaline Casts COVID-19 ([facility]) COVID-19 Clin Com 11/11/21 11/11/21 07:41 11:20 MCV MCH MCHC RDW Plt Count MPV Absolute Nucleated RBC Nucleated RBC % (auto) Anion Gap Estim Creat Clear Calc Estimated GFR POC Glucose 324 H 421 H* Random Glucose Lactic Acid Calcium Urine Color Urine Appearance Urine pH Ur Specific [place] Urine Protein Urine Glucose (UA) Urine Ketones Urine Blood Urine Nitrite Ur Leukocyte Esterase Urine RBC Urine WBC Ur Squamous Epith Cells Urine Bacteria Hyaline Casts COVID-19 ([facility]) COVID-19 Clin Com Microbiology Microbiology Results: Microbiology 11/10/21 Unknown Urine Culture - Final Urine clean catch - Urine ortiz top Assessment and Plan (1) Acute on chronic respiratory failure with hypoxemia: Status: Acute (2) COPD exacerbation: Status: Acute Plan A 56 years old lady with PMH of chronic hypoxic failure on 2 L, COPD, diabetes, morbid obesity, DINA on CPAP, fibromyalgia among others who presents to the hospital complaining of worsening shortness of breath and dyspnea for the last week. Acute on chronic hypoxic respiratory failure 2/2 COPD exacerbation Improving Change to prednisone tomorrow Bronchodilator nebulizers ATC and p.r.n. Azithromycin daily Wean oxygen down as tolerated Mucinex, Tessalon around the clock DINA on CPAP Continue CPAP at bedtime Morbid obesity Advised to lose weight Hyperglycemia 2/2 Type 2 diabetes Start Lantus 40 units SSI diabetic diet Hypothyroidism Continue thyroxine HLD continue statin Continue the rest of home medications once med rec is done DVT PPX Lovenox The patient will need Overnight hospital stay for treatment of acute hypoxic respiratory failure to prevent possible decompensation and need for higher level of care pending safe discharge plan Quality Stroke Does the patient have a stroke diagnosis?: No VTE Prior VTE?: No VTE Risk Level:: Medical - moderate - high VTE Device Contraindication: Treatment Not Indicated VTE Drug Contraindication: N/A - Med Ordered
[2021-11-11] MEDS: Azithromycin 500 MG TABLET PO (12:25)
[2021-11-11] MEDS: Insulin Glargine,Hum.rec.anlog 100 UNIT/ML 10 ML VIAL 10 UNIT SUBCUT (12:25)
[2021-11-11] MEDS: Insulin Lispro 100 UNIT/ML 3 ML VIAL 15 UNIT SUBCUT ×2 (16:02→20:50)
[2021-11-11] MEDS: Enoxaparin Sodium 40 MG/0.4 ML SYRINGE SUBCUT (16:02)
[2021-11-11] MEDS: Insulin Lispro 100 UNIT/ML 3 ML VIAL 10 UNIT SUBCUT (16:02)
[2021-11-11 16:06] LABS: Glucose, Whole Blood 532 mg/dL (60-115)
[2021-11-11] MEDS: Fluticasone Propionate 100 MCG BLST.W.DEV 1 PUFF INHALE (19:36)
[2021-11-11 20:30] LABS: Glucose, Whole Blood 478 mg/dL (60-115)
[2021-11-11] MEDS: Metoclopramide HCl 5 MG TABLET PO (20:51)
[2021-11-11] MEDS: Nortriptyline HCl 25 MG CAPSULE 75 MG PO (20:51)
[2021-11-11] MEDS: Nortriptyline HCl 25 MG CAPSULE 50 MG PO (20:51)
[2021-11-11] MEDS: cloNIDine HCL 0.1 MG TABLET PO (20:52)
[2021-11-11] MEDS: Melatonin 3 MG TABLET 9 MG PO (20:53)
[2021-11-12 00:11] LABS: Glucose, Whole Blood 448 mg/dL (60-115)
[2021-11-12 01:41] LABS: Glucose, Whole Blood 465 mg/dL (60-115)
[2021-11-12] MEDS: Insulin Lispro 100 UNIT/ML 3 ML VIAL 8 UNIT SUBCUT (01:50)
[2021-11-12 04:06] LABS: Glucose, Whole Blood 435 mg/dL (60-115)
[2021-11-12] MEDS: Levothyroxine Sodium 125 MCG TABLET PO (05:50)
[2021-11-12] MEDS: Omeprazole 20 MG CAPSULE.DR PO (05:50)
[2021-11-12 06:18] LABS: Glucose, Whole Blood 383 mg/dL (60-115)
--- NOTE | 2021-11-12 06:29 | MHC.PIE ---
P.ELEVATED BLOOD SUGARS I.POC REMAIN ELEVATED THROUGHOUT THE NIGHT.AT [id number],REPORTED TO DR OROZCO. STATED TO RECHECK IN 1 HOUR.REPEAT POC AT [id number],REPORTED TO DR OROZCO,ORDER TO GIVE 8 UNITS LISPRO NOW AND RECHECK IN 2 HOURS.INSULIN GIVEN.POC AT [id number],REPORTED TO DR ERNESTO MD STATES TO RECHECK IN 2 HOURS.POC AT [id number],REPORTED TO DR OROZCO,NO NEW ORDERS AT THIS TIME. E.CONT TO MONITOR
[2021-11-12 07:16] LABS: Glucose, Whole Blood 396 mg/dL (60-115)
[2021-11-12 07:36] VITALS: BP 163/83; PULSE 80; RESP 20; TEMP 36.2; O2SAT 92
[2021-11-12] MEDS: Fluticasone Propionate 100 MCG BLST.W.DEV 1 PUFF INHALE (07:49)
[2021-11-12] MEDS: Albuterol/Iprat 2.5/0.5MG 3 ML AMPUL.NEB INHALE (07:49)
[2021-11-12 07:50] VITALS: PULSE 91; RESP 20; O2SAT 96
[2021-11-12] MEDS: Valsartan 160 MG TABLET PO (08:06)
[2021-11-12] MEDS: Cholecalciferol (Vitamin D3) 25 MCG TABLET 50 MCG PO (08:06)
[2021-11-12] MEDS: SITagliptin Phosphate 100 MG TABLET PO (08:06)
[2021-11-12] MEDS: Furosemide 40 MG/4 ML VIAL IVPUSH (08:06)
[2021-11-12] MEDS: Propranolol HCL 40 MG TABLET 80 MG PO (08:06)
[2021-11-12] MEDS: Thiamine HCL 100 MG TABLET PO (08:06)
[2021-11-12] MEDS: Aspirin Enteric Coated 81 MG TABLET.DR PO (08:06)
[2021-11-12] MEDS: ARIPiprazole 20 MG TABLET PO (08:06)
[2021-11-12] MEDS: Insulin Lispro 100 UNIT/ML 3 ML VIAL 15 UNIT SUBCUT (08:07)
[2021-11-12] MEDS: Insulin Lispro 100 UNIT/ML 3 ML VIAL SUBCUT (08:07)
[2021-11-12] MEDS: Benzonatate 100 MG CAPSULE PO (08:07)
[2021-11-12] MEDS: guaiFENesin LA 600 MG TAB.ER.12H PO (08:07)
[2021-11-12] MEDS: hydroCHLOROthiazide 25 MG TABLET PO (08:07)
[2021-11-12] MEDS: Ferrous Sulfate 324 MG TABLET.DR PO (08:07)
[2021-11-12] MEDS: predniSONE 20 MG TABLET 40 MG PO (08:07)
[2021-11-12] MEDS: Gabapentin 400 MG CAPSULE PO (08:07)
[2021-11-12] MEDS: Insulin Glargine,Hum.rec.anlog 100 UNIT/ML 10 ML VIAL 60 UNIT SUBCUT (08:08)
[2021-11-12] MEDS: Docusate Sodium 100 MG CAPSULE PO (08:09)
[2021-11-12] MEDS: 0.9 % Sodium Chloride Flush 3 ML SYRINGE IVFLUSH (08:14)
--- NOTE | 2021-11-12 10:34 | PM.DS ---
DS: Providers Provider Date of Service: 11/12/21 Date of admission: 11/10/21 14:18 Primary care physician: [facility] DS: Diagnosis Discharge Diagnosis (1) Acute on chronic respiratory failure with hypoxemia: Status: Acute (2) COPD exacerbation: Status: Acute (3) Morbid obesity: Status: Acute DS: Summary Hospital Course Hospital Course: Admission note HPI A 56 years old lady with PMH of chronic hypoxic failure on 2 L, COPD, diabetes, morbid obesity, DINA on CPAP, fibromyalgia among others who presents to the hospital complaining of worsening shortness of breath and dyspnea for the last week.? The patient was discharged on the hospital almost 2 weeks ago after being treated for pneumonia.? She was discharged on oxygen supplement as she failed to maintain O2 sat in 90s on ambulation.? Treated with doxycycline and Ceftin at time of discharge.? Reported that she improved at the beginning but for the last week she noticed worsening shortness of breath, dyspnea, wheezing and chest pain related to coughing which was mildly productive of thick mucus.? Denies any fever, chills, palpitation, abdominal pain, nausea or vomiting or change in bowel habit or urinary symptoms.? In the emergency she was found to be in respiratory distress with elevated respiratory rate increased oxygen requirement.? Treated with IV steroids and nebulizer with no significant improvement.? Will be admitted for further evaluation and treatment. Hospital course The patient was admitted for treatment of acute on chronic hypoxic respiratory failure. Chest x-ray showed similar changes to previously with no fever or leukocytosis. Treated for COPD exacerbation with steroids, bronchodilator nebulizers and azithromycin with good response over the course of hospital stay as the patient maintained O2 sat in 90s on 2 L of oxygen which is her baseline at home. Continue azithromycin and prednisone for 3 more days Cough medication as needed Come back to the hospital for any worsening shortness of breath or fever Time Spent with Patient Time attestation: Total time spent providing and/or coordinating discharge services: Discharge coordination time: Greater than 30 minutes Quality: Safe Use of Opioids Does Pt have an Active Cancer Diagnosis on the Problem List?: No Quality: Stroke Does the patient have a stroke diagnosis?: No Physical Exam Vital Signs: Vital Signs: Last Vital Signs Temp 97.2 F 11/12/21 07:36 Pulse 91 11/12/21 07:50 Resp 20 11/12/21 07:50 BP 163/83 H 11/12/21 07:36 Pulse Ox 92 11/12/21 07:36 O2 Del Method 11/12/21 07:36 O2 Flow Rate 2 11/12/21 07:36 BMI result Body Mass Index 46.2 Const: Other: Constitutional : Alert, interactive, morbidly obese, Neck : Normal inspection, Supple Cardiovascular : RRR, no JVP, +1 bilateral lower extremity edema Respiratory : decreased bilateral air entry, no crackles,, scattered wheezes, not in respiratory distress Gastrointestinal: soft, lax, Normal bowel sounds, Non tender Skin : Warm, Dry Neurological : Alert & oriented x3, No focal deficit DS: Data Data Completed and Pending Completed studies during hospitalization [Text1]: Procedures Assistance with Respiratory Ventilation, Less than 24 Consecutive Hours, Continuous Positive Airway Pressure (10/23/21) Labs on day of discharge: Laboratory Results - last 24 hr 11/11/21 11/11/21 11/11/21 11:20 15:19 20:25 POC Glucose 421 H* 532 H* 478 H* 11/12/21 11/12/21 11/12/21 00:05 01:36 03:59 POC Glucose 448 H* 465 H* 435 H* 11/12/21 11/12/21 06:14 07:06 POC Glucose 383 H* 396 H* Preliminary micro results at discharge 11/10/21 12:16 Blood Culture - Preliminary Blood - Venous No growth after 24 hours. 11/10/21 11:59 Blood Culture - Preliminary Blood - Venous No growth after 24 hours. Imaging Chest x-ray: Radiologist's impression: ITS Impressions Chest X-Ray 11/10/21 11:28 IMPRESSION: Bibasilar airspace disease, similar to prior study dated 10/23/2021. No new abnormalities. Discharge Plan Discharge Patient Disposition: Home, Self-Care Discharge Diagnosis: Acute on chronic hypoxic respiratory failure COPD exacerbation Referrals: [facility] [Primary Care Provider] - 1 Week (YOU HAVE A FOLLOW UP APPOINTMENT SCHEDULED WITH SOPHIA WELDON, CALL IF YOU NEED TO RESCHEDULE) Discharge Medications: New prednisone 20 mg Tablet 40 mg PO DAILY 3 Days Qty: 6 0RF benzonatate 100 mg Capsule 100 mg PO TID 7 Days Qty: 21 0RF guaifenesin [Mucinex] 600 mg Tablet Extended Release 12hr 600 mg PO BID 7 Days Qty: 14 0RF azithromycin 250 mg tablet 250 mg PO DAILY 3 Days Qty: 3 0RF Rx Instructions: start on day 2 of therapy Continued (DME) lancets [TRUEplus Lancets] 33 gauge misc See Rx Instructions .ROUTE .MEDSUPPLY Qty: 120 11RF Rx Instructions: 4 times a day (DME) pen needle, diabetic [BD Usha 2nd Gen Pen Needle] 32 gauge x 5/32 needle See Rx Instructions .MEDSUPPLY Qty: 100 11RF Rx Instructions: Twice a day propranolol 80 mg tablet 80 mg PO BID 90 Days Qty: 180 3RF Baqsimi 3 mg/actuation spray,non-aerosol 3 mg intranasal ONCE 30 Days Qty: 4 6RF Rx Instructions: [place] once for severe hypoglycemia when patient cannot self-treat with glucose. Afterwards turn on side. May repeat after 15 minutes if patient does not respond. gabapentin 400 mg capsule 400 mg PO TID Qty: 270 1RF metformin 500 mg tablet 1,000 mg PO BID 90 Days Qty: 360 1RF metoclopramide HCl 5 mg tablet 5 mg PO BEDTIME Qty: 30 6RF (DME) FreeStyle Lite Strips Strip See Rx Instructions .MEDSUPPLY Qty: 150 5RF Rx Instructions: 5 times a day lidocaine [Lidoderm] 5 % adhesive patch,medicated 1 patch topical DAILY Qty: 15 0RF Rx Instructions: leave on most painful area for up to 12 hrs levothyroxine 125 mcg tablet 1 tab PO DAILY@0600 hydroxyzine HCl 25 mg tablet 1 - 2 tab PO BEDTIME PRN (Reason: Anxiety) albuterol sulfate [ProAir HFA] 90 mcg/actuation HFA aerosol inhaler 2 puff inhalation Q4-6H PRN (Reason: asthma) aripiprazole 20 mg tablet 1 tab PO DAILY nortriptyline 50 mg capsule 1 cap PO BEDTIME Rx Instructions: TAKE WITH 75 MG Humulin R U-500 (Conc) Kwikpen 500 unit/mL (3 mL) insulin pen 140 unit subcut DAILY Humulin R U-500 (Conc) Kwikpen 500 unit/mL (3 mL) insulin pen 120 unit subcut DAILY@1700 clonidine HCl 0.1 mg tablet 0.1 mg PO BEDTIME rosuvastatin [Crestor] 20 mg tablet 20 mg PO DAILY thiamine HCl (vitamin B1) 100 mg tablet 100 mg PO DAILY Rx Instructions: WITH MEAL ferrous sulfate 325 mg (65 mg iron) tablet 325 mg PO Q OTHER DAY clonazepam 1 mg tablet 1 mg PO TID PRN (Reason: Anxiety) valsartan 160 mg tablet 160 mg PO DAILY omeprazole 20 mg capsule,delayed release(DR/EC) 20 mg PO DAILY@0630 nortriptyline 75 mg capsule 75 mg PO BEDTIME Rx Instructions: TAKE WITH 50MG melatonin 5 mg tablet 5 - 10 mg PO BEDTIME PRN (Reason: Sleep) hydrochlorothiazide 25 mg tablet 25 mg PO DAILY cyanocobalamin (vitamin B-12) 1,000 mcg/mL solution 1,000 mcg IM [id number] aspirin 81 mg tablet,delayed release (DR/EC) 81 mg PO DAILY oxybutynin chloride 10 mg tablet extended release 24hr 10 mg PO DAILY Flovent HFA 110 mcg/actuation HFA aerosol inhaler 1 puff PO BID docusate sodium 100 mg capsule 100 mg PO BID cholecalciferol (vitamin D3) 50 mcg (2,000 unit) capsule 50 mcg PO DAILY Januvia 100 mg tablet 100 mg PO DAILY 30 Days Qty: 30 6RF Discharge Orders: Discharge Order (Routine); Ordered 11/12/21 Ordered By: Darwin Mishra Diet: Advance to usual diet Activity on Discharge: As tolerated Stand Alone Forms: Patient Portal Discharge page Care Plan Goals: Read below Health Concerns: Read below Plan of Treatment: Read below Assessment: You were admitted to the hospital for evaluation of difficulty breathing. Found to be in respiratory distress from COPD exacerbation. Responded well to treatment with steroids and nebulizers with addition of antibiotics. Continue azithromycin and prednisone for 3 more days Cough medication as needed Come back to the hospital for any worsening shortness of breath or fever
--- NOTE | 2021-11-12 10:40 | P.CDIC_ITS ---
CDI Concurrent Query Documentation Clarification: cdiPHYSICIAN'S DOCUMENTATION REQUEST Date of Query: 11/12/21 1041 Patient Name: Candace Soto Admit Date: 11/10/21 Dear Doctor, A review of the medical record indicates additional documentation may be needed. Please review below and update the documentation accordingly. Clinical Indicators: Risk Factors/Clinical Indicators/Treatments ED 11/10 - Evaluation - BNP 123 consistent with CHF. Normal LV systolic grade I diastolic dysfunction. History of Echo performed. IV Furosemide Please provide further specificity regarding the most likely type and acuity of CHF you are evaluating, treating, or monitoring. Examples include: Type: * Systolic * Diastolic * Combined Systolic/Diastolic * Other ? please specify * Unable to determine Acuity: * Acute * Chronic * Acute on chronic * Unable to determine Use of terms such as suspected, likely, concern for, or probable (associated with a specific diagnosis that is being evaluated, monitored, or treated as if it exists) are acceptable and can be coded in the inpatient setting, when documented at the time of discharge. Thank you, Alcira Milner [facility], CDIS Extension: [phone] Please use your independent medical judgment in providing your response. THIS QUERY IS PART OF THE PERMANENT MEDICAL RECORD Provider Response: Other Other Diagnosis: Unable to determine
--- NOTE | 2021-11-12 11:15 | MHC.CM.PN ---
pt dcd home no skilled services ordered by
--- NOTE | 2021-11-12 12:03 | MHC.CDI.CONC ---
CDI Concurrent Query Documentation Clarification: PHYSICIAN'S DOCUMENTATION REQUEST Date of Query: 11/12/21 1204 Patient Name: Candace Soto Admit Date: 11/10/21 Dear Doctor, Please review the following and provide your response in the progress notes. Clinical Indicators: The diagnosis of asthma was documented in the record on [enter date]. Additional clinical indicators from the record include: Risk Factors/Clinical Indicators/Treatments PMH: Asthma IV Steroids, Albuterol, Oxygen for COPD exacerbation. Based on the above, please clarify in the Progress Notes further specificity regarding the type and acuity of the asthma: Type: Mild intermittent - less than 2x/week Mild persistent - more than 2x/week but not daily Moderate persistent - daily and may restrict physical activity Severe persistent - throughout the day with frequent attacks, limiting activities Exercise induced Other ? please specify Unable to determine Use of terms such as suspected, likely, concern for, or probable (associated with a specific diagnosis that is being evaluated, monitored, or treated as if it exists) are acceptable and can be coded in the inpatient setting, when documented at the time of discharge. Thank you, Alcira Milner [facility], CDIS Extension: [phone] Please use your independent medical judgment in providing your response. THIS QUERY IS PART OF THE PERMANENT MEDICAL RECORD Provider Response: Other Other Diagnosis: Unable to determine
--- NOTE | 2021-11-13 09:41 | P.CDIR_ITS ---
Documented by User: Alcira Milner [facility], CDIS 11/13/21 09:43 Retrospective Query PHYSICIAN'S DOCUMENTATION REQUEST Date of Query: 11/13/21940 Patient Name: Candace Soto Admit Date: 11/10/21 Dear Doctor, A review of the medical record indicates additional documentation may be needed. Please review below and update the documentation accordingly. Clinical Indicators: Risk Factors/Clinical Indicators/Treatments ED 11/10 - Evaluation - BNP 123 consistent with CHF. Normal LV systolic grade I diastolic dysfunction. History of Echo performed. IV Furosemide. Please provide further specificity regarding the most likely type and acuity of CHF you are evaluating, treating, or monitoring. Examples include: Type: * Systolic * Diastolic * Combined Systolic/Diastolic * Other ? please specify * Unable to determine Acuity: * Chronic * Acute on chronic * Unable to determine Use of terms such as suspected, likely, concern for, or probable (associated with a specific diagnosis that is being evaluated, monitored, or treated as if it exists) are acceptable and can be coded in the inpatient setting, when documented at the time of discharge. Thank you, Alcira Milner [facility], CDIS Extension: [phone] Please use your independent medical judgment in providing your response. THIS QUERY IS PART OF THE PERMANENT MEDICAL RECORD Documented by User: Darwin Mishra MD 11/20/21 15:34 Retrospective Query Provider Response: Other (Unable to determine)
== END 2021-11-12 11:30 | disposition home or self-care (01) | DRG 140 ==
LOC: HO.ED 10:52 → HO.EDOVER 14:32 → HO.IMC 21:25
PROVIDERS: Nurse Practitioner Family; Admitting Provider Student in an Organized Health Care Education/Training Program; Emergency Provider Emergency Medicine; PCP Family Medicine; Visit Provider Student in an Organized Health Care Education/Training Program
DX: J44.1 Chronic obstructive pulmonary disease with (acute) exacerbation (principal); J96.21 Acute and chronic respiratory failure with hypoxia; I11.0 Hypertensive heart disease with heart failure; E66.01 Morbid (severe) obesity due to excess calories; Z99.81 Dependence on supplemental oxygen; E03.9 Hypothyroidism, unspecified; E78.5 Hyperlipidemia, unspecified; G89.4 Chronic pain syndrome; K21.9 Gastro-esophageal reflux disease without esophagitis; M79.7 Fibromyalgia; Z68.42 Body mass index [BMI] 45.0-49.9, adult; E11.65 Type 2 diabetes mellitus with hyperglycemia; G47.33 Obstructive sleep apnea (adult) (pediatric); Z20.822 Contact with and (suspected) exposure to COVID-19; Z98.51 Tubal ligation status; Z79.4 Long term (current) use of insulin; Z79.51 Long term (current) use of inhaled steroids; Z79.52 Long term (current) use of systemic steroids; Z79.82 Long term (current) use of aspirin; Z79.899 Other long term (current) drug therapy
CPT/HCPCS: 36415; 71046; 80048; 80053; 81001; 81003; 82947; 83605; 83690; 83735; 83880; 84484; 85025; 85027; 85610; 87040; 87086; 87635; 93005; 94640; 94660; 99219; 99285; J0456; J0696; J1650; J1940; J2920; J2930

== ENCOUNTER 2021-11-28 09:28 | Outpatient (REF) | payer MEDICAID, SELFPAY ==
--- NOTE | 2021-11-28 | PFT_ITS ---
FLOWS: FEV1 of 46% of predicted at 1.26 L. FVC 42% of predicted at 1.44 L. FEV1 to FVC ratio of 0.88. No bronchodilator response except small to medium airways. LUNG VOLUMES: Total lung capacity 59% of predicted at 3.01 L. Residual volume 74% of predicted at 1.39 L. Slow vital capacity 50% of predicted at 1.62 L. Expiratory reserve volume 11% of predicted at 0.12 L. Diffusion capacity is moderately decreased, diffusion capacity corrects to normal after adjustment for alveolar ventilation. IMPRESSION: Severe restrictive ventilatory defect with no bronchodilator response except in small to medium airways. Decreased expiratory reserve volume suggests extrathoracic restriction likely secondary to abdominal obesity. MD EITAN Zelaya/MODL / [id number]
== END 2021-11-28 09:29 | disposition home or self-care (01) ==
LOC: HO.RESP 09:28
PROVIDERS: PCP Family Medicine; Visit Provider Family Medicine
DX: J45.30 Mild persistent asthma, uncomplicated (principal)
CPT/HCPCS: 94060; 94727; 94729

== ENCOUNTER → 2021-12-04 10:23 | Outpatient (BNVA) | payer MEDICAID, SELFPAY | PROVIDERS: PCP Family Medicine; Visit Provider Physician Assistant | DX: M17.11 Unilateral primary osteoarthritis, right knee (principal) | CPT/HCPCS: 20610; 99212; J1020 ==

== ENCOUNTER → 2021-12-10 08:29 | Outpatient (BNVA) | payer MEDICAID, SELFPAY | PROVIDERS: PCP Family Medicine; Visit Provider Internal Medicine Pulmonary Disease | DX: R06.02 Shortness of breath (principal); G47.33 Obstructive sleep apnea (adult) (pediatric); Z99.89 Dependence on other enabling machines and devices | CPT/HCPCS: 94618; 99202 ==

== ENCOUNTER → 2021-12-12 19:30 | Outpatient (REF) | payer MEDICAID, SELFPAY | LOC: HO.SL 19:30 | PROVIDERS: Visit Provider Family Medicine | DX: G47.33 Obstructive sleep apnea (adult) (pediatric) (principal) | CPT/HCPCS: 95811 ==

== ENCOUNTER → 2021-12-16 09:30 | Outpatient (BNVA) | payer MEDICAID, SELFPAY | PROVIDERS: PCP Family Medicine; Visit Provider Anesthesiology | DX: E66.01 Morbid (severe) obesity due to excess calories (principal); M41.9 Scoliosis, unspecified; M47.816 Spondylosis without myelopathy or radiculopathy, lumbar region | CPT/HCPCS: 99212 ==

== ENCOUNTER → 2021-12-26 09:35 | Outpatient (BNVA) | payer MEDICAID, SELFPAY | PROVIDERS: PCP Family Medicine; Visit Provider Internal Medicine Endocrinology, Diabetes & Metabolism | DX: E11.649 Type 2 diabetes mellitus with hypoglycemia without coma (principal); Z79.4 Long term (current) use of insulin | CPT/HCPCS: 82947; 99212 ==

== ENCOUNTER 2021-12-31 10:50 | Outpatient (REF) | payer MEDICAID, SELFPAY ==
[2021-12-31 14:56] LABS: Cholesterol 120 mg/dL; HDL Cholesterol 50 mg/dL; LDL Cholesterol Calculated 51 mg/dl; Triglycerides 98 mg/dL
== END 2021-12-31 10:51 | disposition home or self-care (01) ==
LOC: HO.10HDL 10:50
PROVIDERS: Visit Provider Internal Medicine Endocrinology, Diabetes & Metabolism
DX: E11.649 Type 2 diabetes mellitus with hypoglycemia without coma (principal)
CPT/HCPCS: 36415; 80061; 99202

== ENCOUNTER 2022-01-01 09:24 | Outpatient (REF) | payer MEDICAID, SELFPAY ==
[2022-01-01 11:01] LABS: Creatinine Urine 161.15 mg/dL; Microalbum/Creatinine Ratio Ur 8.6 ug/mg cr
== END 2022-01-01 09:25 | disposition home or self-care (01) ==
LOC: HO.10HDLNP 09:24
PROVIDERS: Visit Provider Internal Medicine Endocrinology, Diabetes & Metabolism
DX: E11.649 Type 2 diabetes mellitus with hypoglycemia without coma (principal)
CPT/HCPCS: 82043

== ENCOUNTER 2022-01-09 09:16 | Day surgery (SDC) | payer MEDICAID, SELFPAY ==
[2022-01-03 14:44] VITALS: BMI 45.4
--- NOTE | 2022-01-06 13:27 | P.CONAN_ITS ---
Documented by User: Mala De La Paz NP 01/06/22 14:11 HPI - Anesthesia Eval Consult details Narrative: 56yo F for Bilateral Lumbar L3,L4,DR,L5 Medial [place] [facility] [place] with chronic resp failure, COPD exac (2 weeks post [facility] 12/10/21 pulmo visit - asthma well controlled, DINA with CPAP, SOB significantly improved since d/c without need for supplemental O2 08/2021 cardiac w/u for sob found to be non-cardiac per 09/26/21 office visit note PMFSH Active Problems Active Problems: All Active Problems (Updated 01/03/22 @ 14:47 by Racquel Schultz, GIL) Primary osteoarthritis of left knee (Acute ~12/07/19) Pelvic pain (Acute) Fibromyalgia (Acute) Gastroparesis (Acute) SOB (shortness of breath) on exertion (Acute) Lumbosacral spondylosis with radiculopathy (Acute) Lumbar facet arthropathy (Acute) Sacroiliac joint dysfunction (Acute) Morbid obesity with BMI of 45.0-49.9, adult (Acute) Muscle spasm of back (Acute) Abnormal nuclear cardiac imaging test (Acute) Acute respiratory failure with hypoxia (Acute) Patellofemoral arthritis of right knee (Acute) Obstructive sleep apnea on CPAP (Acute) Asthma (Acute) Hypothyroidism (Acute) Paranoia (psychosis) (Acute) Stress incontinence (Acute) Insomnia (Acute) Anxiety (Acute) Depression (Acute) Dyslipidemia (Acute) HTN (hypertension) (Acute) Obesity due to excess calories (Acute) Spondylosis of lumbar region without myelopathy or radiculopathy (Acute) Scoliosis of thoracolumbar spine (Acute) Morbid obesity (Acute) Chronic pain syndrome (Acute) Sacroiliitis (Acute) Spondylosis of lumbar region without myelopathy or radiculopathy (Acute) Inappropriate sinus tachycardia (Acute) GERD (gastroesophageal reflux disease) (Acute) Diabetic nephropathy associated with type 2 diabetes mellitus (Acute) 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 due to insulin (Acute) 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 (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) Gastroparesis (Acute) 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, uncontrolled (Acute) Past Medical History Medical History (Updated 01/09/22 @ 10:06 by Debra Carbajal, GIL) Anemia Anxiety Asthma Bilateral pneumonia Chest pain Chronic pain syndrome Dental crowns present Depression 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, uncontrolled Diabetic nephropathy associated with type 2 diabetes mellitus Dyslipidemia Family history of colon cancer Fibromyalgia Gastroparesis Genu valgum GERD (gastroesophageal reflux disease) Hemorrhoids HTN (hypertension) 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 due to insulin Hypothyroidism Inappropriate sinus tachycardia Insomnia shelter (current) use of insulin Low back pain Lumbar spondylosis Migraine Morbid obesity Obstructive sleep apnea on CPAP Palpitations Paranoia (psychosis) Patella-femoral syndrome Patellofemoral arthritis Respiratory failure Sacroiliitis Scoliosis of thoracolumbar spine Spondylosis of lumbar region without myelopathy or radiculopathy Stress incontinence Tubular adenoma Vitamin D deficiency Family History Family History Father Stomach cancer Mother Heart disease HTN (hypertension) Diabetes Son No problems noted. Paternal Aunt Stomach cancer Sister Stomach cancer Sister Uterine cancer Surgical History Surgical History H/O esophagogastroduodenoscopy History of arthroscopy of right knee History of bilateral carpal tunnel release History of bladder surgery History of colonoscopy History of tubal ligation Hx of section Hx of tonsillectomy Social History Social History (Updated 12/31/21 @ 10:01 by Zoe Combs CMA) Household Members: Family Housing: Apartment Are you a primary caretaker resort to a significant other at home: No Do you presently have visiting nurse or other home services: Yes ([employer]) Alcohol intake: never Patient Tobacco Use Status: Never used Tobacco Second Hand Smoke Exposure: No Have you been hit, kicked, punched, or otherwise hurt by someone within the past year? If so, by whom?: No Are you DNR?: No Advance Directives: No Advance Directives Information Provided: Yes Advance Directives on File: No service: No Current occupational status: disabled Current occupation: lt handed Sexual orientation: Straight/Heterosexual Gender identity: Female Meds Allergies Allergy/AdvReac Type Severity Reaction Status Date / Time No Known Allergies Allergy Verified 01/09/22 09:57 [No Known Allergies*] Home Medications Medication Instructions Recorded Confirmed Last Taken Type clonidine HCl 0.1 mg tablet 0.1 mg PO BEDTIME 11/30/19 01/03/22 11/09/21 History ferrous sulfate 325 mg (65 mg 325 mg PO Q OTHER DAY 11/30/19 01/03/22 10/23/21 History iron) tablet rosuvastatin 20 mg tablet (Crestor) 20 mg PO DAILY 11/30/19 01/03/22 11/10/21 History thiamine HCl (vitamin B1) 100 mg 100 mg PO DAILY 11/30/19 01/03/22 11/10/21 History tablet aspirin 81 mg tablet,delayed 81 mg PO DAILY 01/01/21 01/03/22 01/04/22 History release cyanocobalamin (vitamin B-12) 1,000 mcg IM [id number] 01/01/21 11/10/21 Unknown History 1,000 mcg/mL injection solution fluticasone propionate 110 1 puff PO BID 01/01/21 01/03/22 11/10/21 History mcg/actuation HFA aerosol inhaler (Flovent HFA) hydrochlorothiazide 25 mg tablet 25 mg PO DAILY 01/01/21 11/10/21 11/10/21 History melatonin 5 mg tablet 5 - 10 mg PO BEDTIME PRN Sleep 01/01/21 11/10/21 11/09/21 History oxybutynin chloride 10 mg 10 mg PO DAILY 01/01/21 01/03/22 11/10/21 History tablet,extended release 24 hr clonazepam 1 mg tablet 1 mg PO TID PRN Anxiety 05/07/21 01/03/22 01/09/22 06:00 History omeprazole 20 mg capsule,delayed 20 mg PO DAILY@0630 05/07/21 01/03/22 01/09/22 06:00 History release valsartan 160 mg tablet 160 mg PO DAILY 05/07/21 01/03/22 11/10/21 History cholecalciferol (vitamin D3) 50 50 mcg PO DAILY 07/12/21 01/03/22 11/10/21 History mcg (2,000 unit) capsule docusate sodium 100 mg capsule 100 mg PO BID 09/26/21 01/03/22 11/10/21 History albuterol sulfate 90 mcg/actuation 2 puff inhalation Q4-6H PRN asthma 10/23/21 01/03/22 11/10/21 History aerosol inhaler (ProAir HFA) hydroxyzine HCl 25 mg tablet 1 - 2 tab PO BEDTIME PRN Anxiety 10/23/21 11/10/21 11/09/21 History levothyroxine 125 mcg tablet 1 tab PO DAILY@0600 10/23/21 01/03/22 01/09/22 06:00 History nortriptyline 50 mg capsule 1 cap PO BEDTIME 10/23/21 01/03/22 11/09/21 History albuterol sulfate 2.5 mg/3 mL mg inhalation Q4H 12/04/21 Unknown History (0.083 %) solution for nebulization blood-glucose meter (FreeStyle 12/26/21 Unknown History Lite Meter kit) insulin regular hum U-500 conc 500 110 unit subcut DAILY@1700 12/26/21 01/03/22 Unknown History unit/mL(3 mL) subcut pen (Humulin R U-500 (Conc) Insulin Kwikpen) insulin regular hum U-500 conc 500 130 unit subcut DAILY 12/26/21 Unknown History unit/mL(3 mL) subcut pen (Humulin R U-500 (Conc) Insulin Kwikpen) Exam Exam Date and Time: January 06, 2022 1327 Height,Weight and Vital Signs: Height 5 ft 4 in Weight 120.202 kg Narrative Narrative: EKG 10/2021 Vent. Rate : 091 BPM ? ? Atrial Rate : 091 BPM ?? P-R Int : 136 ms? QRS Dur : 098 ms ? ? QT Int : 362 ms ? ? ? P-R-T Axes : 055 034 063 degrees ?? QTc Int : 445 ms ? Normal sinus rhythm Minimal voltage criteria for LVH, may be normal variant ( Superior product ) Borderline ECG When compared with ECG of 23-OCT-2021 05:09, Nonspecific T wave abnormality no longer evident in Inferior leads Per 08/2021 cardiology visit: echocardiogram on 05/08/2021 showing normal EF, grade 1 diastolic dysfunction, mild MR.? She did a nuclear stress test done 06/06/2021 which showed possible ischemia in the circumflex/diagonal territory, EF 69%.? She then underwent a CTA of the coronary arteries on 09/13/2021 showing no coronary calcifications, left main patent, lad proximal patent, mid LAD bridging, distal LAD not well seen, left circumflex proximal patent, mid probably patent, distal not well seen, RCA probably patent. Assessment and Plan Assessment Anesthesia Assessment: Chart Reviewed Documented by User: Reji Kang MD 01/09/22 12:15 [facility] Past Medical History Medical History (Updated 01/09/22 @ 10:06 by Debra Carbajal, RN) Anemia Anxiety Asthma Bilateral pneumonia Chest pain Chronic pain syndrome Dental crowns present Depression 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, uncontrolled Diabetic nephropathy associated with type 2 diabetes mellitus Dyslipidemia Family history of colon cancer Fibromyalgia Gastroparesis Genu valgum GERD (gastroesophageal reflux disease) Hemorrhoids HTN (hypertension) 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 due to insulin Hypothyroidism Inappropriate sinus tachycardia Insomnia 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 Paternal Aunt Stomach cancer Sister Stomach cancer Sister Uterine cancer Family history of problems with anesthesia: No Surgical History Surgical History H/O esophagogastroduodenoscopy History of arthroscopy of right knee History of bilateral carpal tunnel release History of bladder surgery History of colonoscopy History of tubal ligation Hx of section Hx of tonsillectomy History of Problems with Anesthesia: No Social History Social History (Updated 12/31/21 @ 10:01 by Zoe Combs CMA) Household Members: Family Housing: Apartment Are you a primary caretaker resort to a significant other at home: No Do you presently have visiting nurse or other home services: Yes ([employer]) Alcohol intake: never Patient Tobacco Use Status: Never used Tobacco Second Hand Smoke Exposure: No Have you been hit, kicked, punched, or otherwise hurt by someone within the past year? If so, by whom?: No Are you DNR?: No Advance Directives: No Advance Directives Information Provided: Yes Advance Directives on File: No service: No Current occupational status: disabled Current occupation: lt handed Sexual orientation: Straight/Heterosexual Gender identity: Female Meds Allergies Allergy/AdvReac Type Severity Reaction Status Date / Time No Known Allergies Allergy Verified 01/09/22 09:57 [No Known Allergies*] Home Medications Medication Instructions Recorded Confirmed Last Taken Type clonidine HCl 0.1 mg tablet 0.1 mg PO BEDTIME 11/30/19 01/03/22 11/09/21 History ferrous sulfate 325 mg (65 mg 325 mg PO Q OTHER DAY 11/30/19 01/03/22 10/23/21 History iron) tablet rosuvastatin 20 mg tablet (Crestor) 20 mg PO DAILY 11/30/19 01/03/22 11/10/21 History thiamine HCl (vitamin B1) 100 mg 100 mg PO DAILY 11/30/19 01/03/22 11/10/21 History tablet aspirin 81 mg tablet,delayed 81 mg PO DAILY 01/01/21 01/03/22 01/04/22 History release cyanocobalamin (vitamin B-12) 1,000 mcg IM [id number] 01/01/21 11/10/21 Unknown History 1,000 mcg/mL injection solution fluticasone propionate 110 1 puff PO BID 01/01/21 01/03/22 11/10/21 History mcg/actuation HFA aerosol inhaler (Flovent HFA) hydrochlorothiazide 25 mg tablet 25 mg PO DAILY 01/01/21 11/10/21 11/10/21 History melatonin 5 mg tablet 5 - 10 mg PO BEDTIME PRN Sleep 01/01/21 11/10/21 11/09/21 History oxybutynin chloride 10 mg 10 mg PO DAILY 01/01/21 01/03/22 11/10/21 History tablet,extended release 24 hr clonazepam 1 mg tablet 1 mg PO TID PRN Anxiety 05/07/21 01/03/22 01/09/22 06:00 History omeprazole 20 mg capsule,delayed 20 mg PO DAILY@0630 05/07/21 01/03/22 01/09/22 06:00 History release valsartan 160 mg tablet 160 mg PO DAILY 05/07/21 01/03/22 11/10/21 History cholecalciferol (vitamin D3) 50 50 mcg PO DAILY 07/12/21 01/03/22 11/10/21 History mcg (2,000 unit) capsule docusate sodium 100 mg capsule 100 mg PO BID 09/26/21 01/03/22 11/10/21 History albuterol sulfate 90 mcg/actuation 2 puff inhalation Q4-6H PRN asthma 10/23/21 01/03/22 11/10/21 History aerosol inhaler (ProAir HFA) hydroxyzine HCl 25 mg tablet 1 - 2 tab PO BEDTIME PRN Anxiety 10/23/21 11/10/21 11/09/21 History levothyroxine 125 mcg tablet 1 tab PO DAILY@0600 10/23/21 01/03/22 01/09/22 06:00 History nortriptyline 50 mg capsule 1 cap PO BEDTIME 10/23/21 01/03/22 11/09/21 History albuterol sulfate 2.5 mg/3 mL mg inhalation Q4H 12/04/21 Unknown History (0.083 %) solution for nebulization blood-glucose meter (FreeStyle 12/26/21 Unknown History Lite Meter kit) insulin regular hum U-500 conc 500 110 unit subcut DAILY@1700 12/26/21 01/03/22 Unknown History unit/mL(3 mL) subcut pen (Humulin R U-500 (Conc) Insulin Kwikpen) insulin regular hum U-500 conc 500 130 unit subcut DAILY 12/26/21 Unknown History unit/mL(3 mL) subcut pen (Humulin R U-500 (Conc) Insulin Kwikpen) Exam Airway Mallampati Class: IV TM Dist: >3cm Neck ROM: Full Heart: rrr Lungs: clear Assessment and Plan Final Anesthetic Review Family History of Problems with Anesthesia: No History of Problems with Anesthesia: No NPO: Yes ASA Class: III Final Preanesthetic Review: No Changes in Pt Med Stat, Meds/Allgs Chart Reviewed, Consent Obtained/Reviewed and Anes Risks/Benef Reviewed Patient Risk: Intermediate Procedure Risk: Low Anesthetic Plan Anesthetic Plan: MAC: Disposition: Standard PACU
--- NOTE | ~2022-01-09 | FL_ITS ---
EXAMINATION: XR FLUOROSCOPY WITH IMAGES CLINICAL INFORMATION: Low back pain. Medial branch block. COMPARISON: CT abdomen and pelvis 08/07/2021 TECHNIQUE: Fluoroscopy Supervised By: Dr. Juan Carlos Taylor. Fluoroscopy Time: 0.6 minutes. Cumulative Dose: 44.9 mGy. DAP: 12.2 Gycm2. Images: 6. FINDINGS: There are spinal needles overlying the bilateral outer L3, L4, and L5 neural foramen. There is contrast seen in the respective nerve sheaths. Some early transforaminal epidural extension is suggested. No visible vascular communication. FL/FL guidance in OR IMPRESSION: Fluoroscopy for pain management procedures.
[2022-01-09 10:08] VITALS: BP 127/76; PULSE 93; RESP 18; TEMP 36.2; O2SAT 95
[2022-01-09 10:16] LABS: Glucose, Whole Blood 143 mg/dL (60-115)
[2022-01-09] MEDS: Lactated Ringers 1,000 ML 100 ML IVCONT (10:22)
--- NOTE | 2022-01-09 11:29 | MHC.SHP ---
Pre-Procedural Eval Section A Date of Service: 01/09/22 The patient is an INPATIENT: No Changes since office visit: Yes Patient answered all questions The History & Physical has been completed within 30 days and I have reviewed it.: No Section B Chief Complaint: Spondylosis without myelopathy or radiculopathy, Details of Present Illness: as above Relevant Family History (Specify if Yes): No Relevant Social History: None Present Medications: see Short Stay Collaborative assessment Medical History: No relevant PMH History of Previous Operations: No relevant previous surgery Allergies: Allergies Allergy/AdvReac Type Severity Reaction Status Date / Time No Known Allergies Allergy Verified 01/09/22 09:57 [No Known Allergies*] Review of Systems Sugical H&P ROS: Negative: Cardiovascular, Respiratory, Neurological, Psychiatric, Hem-Onc, Allergic/Immunologic, Gastrointestinal, Genitourinary, Musculoskeletal, Integumentary, Endocrine and Eyes/Ears/Nose/Throat and Yes, Specify: Constitution (morbid obesity) Exam Surgical H&P Exam: Normal: HEENT, Normal: Heart, Normal: Lungs, Normal: Extremities, Normal: Skin and Normal: Neurological and Significant Findings: Abdomen (enlarged due to s/q & i/a fat) Plan Diagnosis/Plan: Unchanged I have reviewed the history and physical and performed a pertinent physical examination on my patient. No changes have occurred unless specified.
--- NOTE | 2022-01-09 12:22 | W.PM.OPN ---
Operative Note Operative Note Date of Service: 01/09/22 Narrative: Informed consent was explained to the patient. All questions were explained and answered. The patient was taken inside the operating room where she was positioned prone on the operating table. ASA monitors were applied and the patient was sedated. Time-out was performed delineating correct site, side, the nature of the procedure, patient's allergy, preoperative antibiotic if needed. All operating room staff was participating in OR time-out procedure. The lower back was prepped with ChloraPrep and draped with sterile towels. Sterilely draped C-arm was brought over the operating field and square picture of L4-and L5 vertebra and S1 AREA were delineated on the screen. Point of interest were delineated as connection of superior articular process of L4 and L5 vertebra bilaterally with corresponding transverse processes, as well as connection of the sacral alae bilaterally with superior articular process of S1. The projections of the point of interest to the skin were injected with the small amount of local anesthetic lidocaine 2% 1-1.5 cc. After that 22 gauge 5 inch QP spinal needles were driven to the point of interest in tunnel vision fashion. After needles gently contacted the bone at the point of interests the needle was injected with small amount of bupivacaine 0.5%-1cc mixad with kenalog. Total dose of kenalog was 40 mg.. Upon completion of the injections needles were removed and sterile dressings were applied patient was awaken and taken outside of the operating room to recovery room where the patient recovered uneventfully. The patient went home without immediate complications.
--- NOTE | 2022-01-09 12:24 | P.BOP_ITS ---
Brief Operative Note Date of Service: 01/09/22 Pre-op diagnosis: spondylosis lumbar spine Post-op diagnosis: same Procedure: therapeutic MBB L3- L4- DRL5 bilateral Implants: none Surgeon: Juan Carlos Taylor MD Anesthesia: GETA Was an Alarm Field Technician used for this Procedure?: No Estimated blood loss (mL): 0 Condition: stable Disposition: PACU
[2022-01-09 12:27] VITALS: BP 134/49; PULSE 90; RESP 18; TEMP 37.3; O2SAT 95
[2022-01-09 12:42] VITALS: BP 135/74; PULSE 81; RESP 20; O2SAT 97
[2022-01-09 12:57] VITALS: BP 144/80; PULSE 80; RESP 24; O2SAT 98
[2022-01-09 13:12] VITALS: BP 144/80; PULSE 82; RESP 20; TEMP 36.6; O2SAT 95
[2022-01-09] MEDS: Acetaminophen 325 MG TABLET 650 MG PO (13:15)
[2022-01-09] MEDS: oxyCODONE HCl Immed Release 5 MG TABLET PO (13:15)
[2022-01-09 13:45] VITALS: RESP 20
== END 2022-01-09 14:20 | disposition home or self-care (01) ==
PROVIDERS: PCP Family Medicine; Visit Provider Anesthesiology
PROC: (CPT 64493; principal; 2022-01-09 11:30)
DX: M47.816 Spondylosis without myelopathy or radiculopathy, lumbar region (principal); G89.4 Chronic pain syndrome; M79.7 Fibromyalgia; M41.9 Scoliosis, unspecified; E55.9 Vitamin D deficiency, unspecified; I10 Essential (primary) hypertension; G47.33 Obstructive sleep apnea (adult) (pediatric); E11.21 Type 2 diabetes mellitus with diabetic nephropathy; Z79.4 Long term (current) use of insulin; D64.9 Anemia, unspecified; J45.909 Unspecified asthma, uncomplicated; F41.1 Generalized anxiety disorder; E66.01 Morbid (severe) obesity due to excess calories; Z68.42 Body mass index [BMI] 45.0-49.9, adult; Z79.899 Other long term (current) drug therapy; Z99.89 Dependence on other enabling machines and devices
CPT/HCPCS: 64493; 64494; 82947; J2250; J2795; J3300; Q9967

== ENCOUNTER → 2022-01-22 08:36 | Outpatient (BNVA) | payer MEDICAID, SELFPAY | PROVIDERS: PCP Family Medicine; Visit Provider Physician Assistant | DX: M17.11 Unilateral primary osteoarthritis, right knee (principal) | CPT/HCPCS: 20610; J7318 ==

== ENCOUNTER 2022-02-12 13:44 | Outpatient (REF) | payer MEDICAID, SELFPAY ==
--- NOTE | 2022-02-12 10:00 | EMG_ITS ---
Please see scanned EMG / Nerve Conduction Report. MTDD
== END 2022-02-12 13:45 | disposition home or self-care (01) ==
LOC: HO.NEURO 13:44
PROVIDERS: PCP Family Medicine; Visit Provider Family Medicine
DX: R20.0 Anesthesia of skin (principal); M79.604 Pain in right leg; M79.605 Pain in left leg; R29.6 Repeated falls
CPT/HCPCS: 95886; 95911

== ENCOUNTER 2022-03-13 05:05 | Emergency (ER) | payer MEDICAID, SELFPAY ==
--- NOTE | ~2022-03-13 | CT_ITS ---
EXAMINATION: CT HEAD W/O IV CONTRAST CT FACIAL BONES WITHOUT IV CONTRAST CT CERVICAL SPINE W/O IV CONTRAST CLINICAL INFORMATION: 56 year old female with history of fall, orbital contusion. COMPARISON: Head CT from 09/10/2020 TECHNIQUE: Head - Contiguous axial imaging of the head was performed from the skull base to the vertex without the administration of intravenous contrast, and axial images are reconstructed at 2 mm and 5 mm slice thickness. Cervical spine and facial bones - Volumetric, helical CT acquisitions of the cervical spine and facial bones obtained without contrast; in addition to the standard set of axial images, multiplanar reformatted images were provided in the coronal and sagittal imaging planes. This CT examination was performed using dose optimization techniques as appropriate, variously including the following: *Automated exposure control *Adjustment of mA and/or kV according to patient size (this includes techniques or standardized protocols for targeted exams where dose is matched to indication/reason for exam; i.e. extremities or head) *Use of iterative reconstruction technique DLP: 830 mGy-cm for the head 545 mGy-cm for the face 670 mGy-cm for the cervical spine FINDINGS: HEAD: No evidence of intracranial hemorrhage, major vascular territory infarction, focal mass effect or midline shift. Fernandez to white matter differentiation is preserved. The ventricles have normal size and configuration. The sulci and basilar cisterns are unremarkable. No extra-axial fluid collections. The calvarium is intact and the mastoid air cells and middle ear cavities are clear. FACIAL BONES: Left periorbital soft tissue edema, mild periorbital soft tissue hemorrhage, are noted. The globes and orbital martinez, including lamina papyracea, are intact. The orbital apex, optic canals, and retrobulbar fat planes are normal. The maxilla, mandible and temporomandibular joints are intact. No periodontal disease. Nasal bones, pterygoid plates and zygomatic arches are normal. Incidentally noted are mucous retention cysts within maxillary sinuses. Otherwise, the paranasal sinuses are well-aerated and the ostiomeatal units are patent. No air-fluid levels in the paranasal sinuses. CERVICAL SPINE: No acute findings. The skull base, C1 and C2 lateral masses, dens and atlantodental articulation are intact. There is lack of lordotic curvature of the mildly degenerated cervical spine. Small anterior vertebral osteophytes are present at C4-C5 and C5-C6. The disc spaces are generally well-preserved. No fractures in the anterior or posterior elements. No evidence of traumatic vertebral subluxation. No prevertebral soft tissue swelling. No significant osseous stenosis of the spinal canal or neural foramina. No spinal hematoma or focal fluid collection in the visualized neck. The examined lung apices are clear. Thyroid gland is normal. CT/CT cervical spine wo IV con IMPRESSION: * No intracranial hemorrhage or other acute intracranial pathology. * No fracture or malalignment in the cervical spine. * Left periorbital soft tissue swelling without evidence of globe or orbital injury. No maxillofacial bone fractures.
--- NOTE | ~2022-03-13 | CT_ITS ---
EXAMINATION: CT CHEST WITHOUT CONTRAST CLINICAL INFORMATION: Pain, fall COMPARISON: CXR from 11/10/2021. Chest CT from 10/23/2021. TECHNIQUE: Multidetector volumetric CT imaging of the chest was done. Axial MIP volume rendering provided. Sagittal and coronal reformatted images were obtained. This CT examination was performed using dose optimization techniques as appropriate, variously including the following: *Automated exposure control *Adjustment of mA and/or kV according to patient size (this includes techniques or standardized protocols for targeted exams where dose is matched to indication/reason for exam; i.e. extremities or head) *Use of iterative reconstruction technique DLP: 384 mGy-cm FINDINGS: LUNGS AND PLEURA: Trachea and central airways are widely patent and normal in caliber. Mild mosaic attenuation of upper lobes remain similar in appearance compared to 10/23/2021. Several linear streaks of atelectasis are present in lower lobes and lingula. No airspace disease, pleural effusion or pneumothorax. CARDIOVASCULAR: The heart size is normal. No pericardial effusion. Pulmonary arteries and thoracic aorta are normal in size. CORONARY ARTERY CALCIFICATION: None detected. MEDIASTINUM AND LOWER NECK: No mediastinal mass. The esophagus and thyroid gland are unremarkable. LYMPHATICS: No axillary or internal mammary lymphadenopathy. The visualized mediastinal lymph nodes are in the normal size range. No hilar lymphadenopathy. UPPER ABDOMEN: Obese body habitus. No acute abdominal abnormality. Spleen is 13.3 cm AP dimension. Liver parenchyma has attenuation of approximately 15 Hounsfield units from steatosis. The chronically enlarged liver is partially included in the [id number]. Steatosis and hepatomegaly (and mild splenomegaly) were present on the abdomen CT of 08/07/2021. SKELETAL AND CHEST WALL: No chest wall hematoma. Mild and moderate multilevel discovertebral degenerative changes of the thoracic spine. No fracture or subluxation. Sternum and ribs are intact. CT/CT chest wo IV con IMPRESSION: * No acute traumatic pathology in the chest. * Scattered linear opacities of atelectasis are present in lower lung zones. No acute consolidation or pleural effusion. * Obese body habitus with hepatic steatosis and hepatosplenomegaly.
[2022-03-13 05:10] VITALS: BP 150/88; BP 153/79; PULSE 86; PULSE 90; RESP 20; TEMP 36; O2SAT 95; O2SAT 96; BMI 43.7
--- NOTE | 2022-03-13 05:15 | ECG_ITS ---
Test Reason : FALL Blood Pressure : / mmHG Vent. Rate : 083 BPM Atrial Rate : 083 BPM P-R Int : 142 ms QRS Dur : 100 ms QT Int : 392 ms P-R-T Axes : 041 028 007 degrees QTc Int : 460 ms Normal sinus rhythm Minimal voltage criteria for LVH, may be normal variant ( Richie product ) Nonspecific T wave abnormality Abnormal ECG When compared with ECG of 10-NOV-2021 10:35, Nonspecific T wave abnormality now evident in Inferior leads Referred By: Generic ED Physician Electronically Signed By:Simba Redmond
[2022-03-13 05:20] LABS: Glucose, Whole Blood 241 mg/dL (60-115)
[2022-03-13 06:30] VITALS: BP 152/77; PULSE 79; RESP 20; O2SAT 94
--- NOTE | 2022-03-13 07:16 | ED_ITS ---
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 Related Data Home Medications Medication Instructions Recorded Confirmed clonidine HCl 0.1 mg tablet 0.1 mg PO BEDTIME 11/30/19 01/03/22 ferrous sulfate 325 mg (65 mg 325 mg PO Q OTHER DAY 11/30/19 01/03/22 iron) tablet rosuvastatin 20 mg tablet (Crestor) 20 mg PO DAILY 11/30/19 01/03/22 thiamine HCl (vitamin B1) 100 mg 100 mg PO DAILY 11/30/19 01/03/22 tablet aspirin 81 mg tablet,delayed 81 mg PO DAILY 01/01/21 01/03/22 release cyanocobalamin (vitamin B-12) 1,000 mcg IM [id number] 01/01/21 11/10/21 1,000 mcg/mL injection solution fluticasone propionate 110 1 puff PO BID 01/01/21 01/03/22 mcg/actuation HFA aerosol inhaler (Flovent HFA) hydrochlorothiazide 25 mg tablet 25 mg PO DAILY 01/01/21 11/10/21 melatonin 5 mg tablet 5 - 10 mg PO BEDTIME PRN Sleep 01/01/21 11/10/21 oxybutynin chloride 10 mg 10 mg PO DAILY 01/01/21 01/03/22 tablet,extended release 24 hr clonazepam 1 mg tablet 1 mg PO TID PRN Anxiety 05/07/21 01/03/22 omeprazole 20 mg capsule,delayed 20 mg PO DAILY@0630 05/07/21 01/03/22 release valsartan 160 mg tablet 160 mg PO DAILY 05/07/21 01/03/22 cholecalciferol (vitamin D3) 50 50 mcg PO DAILY 07/12/21 01/03/22 mcg (2,000 unit) capsule docusate sodium 100 mg capsule 100 mg PO BID 09/26/21 01/03/22 albuterol sulfate 90 mcg/actuation 2 puff inhalation Q4-6H PRN asthma 10/23/21 01/03/22 aerosol inhaler (ProAir HFA) hydroxyzine HCl 25 mg tablet 1 - 2 tab PO BEDTIME PRN Anxiety 10/23/21 11/10/21 levothyroxine 125 mcg tablet 1 tab PO DAILY@0600 10/23/21 01/03/22 nortriptyline 50 mg capsule 1 cap PO BEDTIME 10/23/21 01/03/22 albuterol sulfate 2.5 mg/3 mL mg inhalation Q4H 12/04/21 (0.083 %) solution for nebulization blood-glucose meter (FreeStyle 12/26/21 Lite Meter kit) insulin regular hum U-500 conc 500 110 unit subcut DAILY@1700 12/26/21 01/03/22 unit/mL(3 mL) subcut pen (Humulin R U-500 (Conc) Insulin Kwikpen) insulin regular hum U-500 conc 500 130 unit subcut DAILY 12/26/21 unit/mL(3 mL) subcut pen (Humulin R U-500 (Conc) Insulin Kwikpen) Previous Rx's Medication Instructions Recorded pen needle, diabetic 32 gauge x #100 ea 02/04/21 (BD Usha 2nd Gen Pen Needle) propranolol 80 mg tablet 80 mg PO BID 90 days #180 tabs 05/20/21 glucagon 3 mg/actuation nasal 3 mg intranasal ONCE unresponsive 05/30/21 spray (Baqsimi) hypoglycemia 30 days #4 ea metoclopramide HCl 5 mg tablet 5 mg PO BEDTIME #30 tabs 07/31/21 lidocaine 5 % topical patch 1 patch topical DAILY #15 ea 08/07/21 (Lidoderm) blood sugar diagnostic (FreeStyle #150 ea 10/28/21 Lite Strips) azithromycin 250 mg tablet 250 mg PO DAILY 3 days #3 tabs 11/12/21 benzonatate 100 mg capsule 100 mg PO TID 7 days #21 caps 11/12/21 guaifenesin 600 mg tablet, 600 mg PO BID 7 days #14 tabs 11/12/21 extended release 12 hr (Mucinex) prednisone 20 mg tablet 40 mg PO DAILY 3 days #6 tabs 11/12/21 gabapentin 400 mg capsule 400 mg PO TID #270 caps 11/25/21 metformin 500 mg tablet 1,000 mg PO BID 90 days #360 tabs 11/26/21 fluticasone furoate 200 1 inh inhalation DAILY 30 days #1 12/10/21 mcg-vilanterol 25 mcg/dose ea inhalation powder (Breo Ellipta) furosemide 20 mg tablet 20 mg PO DAILY 30 days #30 tabs 12/11/21 TRUEplus Lancets 33 gauge (lancets) #120 ea 12/13/21 sitagliptin phosphate 100 mg 100 mg PO DAILY 30 days #30 tabs 02/20/22 tablet (Januvia) Allergies Allergy/AdvReac Type Severity Reaction Status Date / Time No Known Allergies Allergy Verified 02/13/22 10:20 [No Known Allergies*] Review of Systems Review of Systems: Pertinent positives and negatives as stated in HPI [facility] Past Medical History Source: nursing notes reviewed Medical History Anemia Anxiety Asthma Bilateral pneumonia Chest pain Chronic pain syndrome Dental crowns present Depression 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, uncontrolled Diabetic nephropathy associated with type 2 diabetes mellitus Dyslipidemia Family history of colon cancer Fibromyalgia Gastroparesis Genu valgum GERD (gastroesophageal reflux disease) Hemorrhoids HTN (hypertension) 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 due to insulin Hypothyroidism Inappropriate sinus tachycardia Insomnia 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 Low back pain Lumbar spondylosis Migraine Morbid obesity Obstructive sleep apnea on CPAP Palpitations Paranoia (psychosis) Patella-femoral syndrome Patellofemoral arthritis Respiratory failure Sacroiliitis Scoliosis of thoracolumbar spine Spondylosis of lumbar region without myelopathy or radiculopathy Stress incontinence Tubular adenoma Vitamin D deficiency Surgical History H/O esophagogastroduodenoscopy History of arthroscopy of right knee History of bilateral carpal tunnel release History of bladder surgery History of colonoscopy History of tubal ligation Hx of section Hx of tonsillectomy Family History Family History Father Stomach cancer Mother Heart disease HTN (hypertension) Diabetes Son No problems noted. Paternal Aunt Stomach cancer Sister Stomach cancer Sister Uterine cancer Social History Social History Household Members: Family Housing: Apartment Are you a primary animal care supervisor to a significant other at home: No Do you presently have visiting nurse or other home services: Yes ([employer]) Alcohol intake: never Patient Tobacco Use Status: Never used Tobacco Second Hand Smoke Exposure: No Advance Directives: No service: No Current occupational status: disabled Current occupation: lt handed Sexual orientation: Straight/Heterosexual Gender identity: Female Physical Exam Vital Signs: Vital Signs: Last Vital Signs Temp 98.2 F 03/13/22 09:04 Pulse 83 03/13/22 09:04 Resp 20 03/13/22 09:04 BP 155/85 H 03/13/22 09:04 Pulse Ox 96 03/13/22 09:04 O2 Del Method 03/13/22 09:04 BMI result Body Mass Index 43.7 VITAL SIGNS: Reviewed. GENERAL: Elevated BMI, Well developed, well nourished, in no acute distress. HEAD: Normocephalic/contusion noted over left eyebrow EYES: PERRLA, EOMI EARS: Ext canals without abnormality OROPHARYNX: no oral lesions noted, posterior pharynx clear NECK: C-collar in place, no adenopathy, no cervical midline tenderness LUNGS: Normal breath sounds. No adventitious sounds or accessory muscle use. SpO2<94>; CHEST WALL: No tenderness to palpation, crepitus, deformity CARDIOVASCULAR: Regular rate and rhythm without noted murmurs ABDOMEN: Soft, non-tender, non-distended with bowel sounds. PELVIS: Stable, nontender MUSCULOSKELETAL: No tenderness, deformities, or effusions noted on gross inspection. EXTREMITIES: No cyanosis, clubbing or edema; full range of motion noted to bilateral shoulders, elbows, wrists, hips, knees, ankles SKIN: Inspection of the skin reveals no rashes NEUROLOGIC: Alert and oriented x 4. Strength and sensation to light touch were grossly intact x 4. Medical Decision Making Medical Decision Making MDM Narrative: 56-year-old female sustained accidental rolling out of bed with head strike and contusion but no LOC. Will obtain labs as well as imaging. 0838: C-collar was cleared. 0936: I have reviewed the workup and my interpretation is accidental fall out of bed resulting in mild contusion over the left eye and my interpretation is in agreement with radiology's impression of the imaging studies that there are no acute intracranial/facial/cervical spine findings. Patient was provided with combination analgesics. In addition, patient was noted to have a potassium-3.0 and was given 60 mEq of potassium chloride. I did note the mild elevation of the sodium and patient was instructed to increase water intake. Differential Diagnosis Differential Diagnoses: The differential diagnosis associated with the presentation includes Please see the discussion above Lab Data MDM Lab Attestation statement: I reviewed the patient's lab results. Please see the discussion above 03/13/22 07:42 03/13/22 07:42 Labs: Lab Results 03/13/22 03/13/22 03/13/22 Range/Units 05:16 07:42 07:42 WBC 10.3 (4.8-10.8) X10*3/uL RBC 4.24 (4.20-5.50) X10*6/uL Hgb 11.0 L (12.0-16.0) g/dl Hct 36.1 L (37.0-47.0) % MCV 85.1 (80.0-98.0) fL MCH 25.9 L (27.0-33.0) pg MCHC 30.5 L (31.0-35.0) g/dl RDW 15.9 (11.0-16.0) % Plt Count 266 D (160-400) X10*3/uL MPV 10.1 (9.4-12.3) fL Immature Gran % (Auto) 0.6 H (0.0-0.4) % Neut % (Auto) 61.8 (45-73) % Lymph % (Auto) 28.1 (20-40) % Mcdonough % (Auto) 7.3 (2-11) % Eos % (Auto) 1.8 (0-4) % Baso % (Auto) 0.4 (0-2) % Lymph # (Auto) 2.9 (1.2-4.9) X10*3/uL Mcdonough # (Auto) 0.8 (0.1-1.2) X10*3/uL Eos # (Auto) 0.2 (0.0-0.4) X10*3/uL Baso # (Auto) 0.0 (0.0-0.2) X10*3/uL Abs Immat Gran (auto) 0.06 H (0.00-0.03) X10*3/uL Absolute Neuts (auto) 6.4 (2.0-8.3) x10*3/uL Absolute Nucleated RBC 0.000 (0.0-0.012) X10*3/uL Nucleated RBC % (auto) 0.0 (0.0-0.2) /100WBC Sodium 146 H (135-145) mmol/L Potassium 3.0 L D (3.3-5.1) mmol/L Chloride 107 (96-108) mmol/L Carbon Dioxide 30 H (22-29) mmol/L Anion Gap 12 (12-20) BUN 9 (9-16) mg/dL Creatinine 0.54 (0.5-1.4) mg/dL Estim Creat Clear Calc 148.7 Estimated GFR > 60 POC Glucose 241 H (60-115) mg/dL Random Glucose 117 H (60-115) mg/dL Calcium 9.1 (8.4-10.2) mg/dL Total Bilirubin 0.4 (0.0-1.0) mg/dL AST 19 (5-31) U/L ALT 10 (0-31) U/L Alkaline Phosphatase 126 H (39-117) U/L Total Protein 6.9 (6.5-8.0) g/dL Albumin 3.8 (3.5-5.0) g/dL Radiology Impression Radiologist Impression: My interpretation is in agreement with radiology's impression of the imaging studies. Discharge Plan Discharge Clinical Impression: Fall, Contusion of face Patient Disposition: Home, Self-Care Instructions: Fall Prevention for Older Adults (ED), Facial Contusion (ED) Additional Instructions: 1. Resume all home medications as prescribed. 2. Recommend that you use [id number] Tylenol/ibuprofen as needed for headaches/pain. Also recommend applying ice to unexposed skin for 5-10 minutes, 3 to 4 times a day to help reduce swelling. 3. Follow-up with your primary care provider in the next 2-3 days for re- evaluation. Return to the ER for any worsening symptoms. Prescriptions: No Action (DME) pen needle, diabetic [BD Usha 2nd Gen Pen Needle] 32 gauge x 5/32 needle See Rx Instructions .MEDSUPPLY Qty: 100 11RF Rx Instructions: Twice a day propranolol 80 mg tablet 80 mg PO BID 90 Days Qty: 180 3RF Baqsimi 3 mg/actuation spray,non-aerosol 3 mg intranasal ONCE 30 Days Qty: 4 6RF Rx Instructions: [place] once for severe hypoglycemia when patient cannot self-treat with glucose. Afterwards turn on side. May repeat after 15 minutes if patient does not respond. metoclopramide HCl 5 mg tablet 5 mg PO BEDTIME Qty: 30 6RF (DME) FreeStyle Lite Strips Strip See Rx Instructions .MEDSUPPLY Qty: 150 5RF Rx Instructions: 5 times a day gabapentin 400 mg capsule 400 mg PO TID Qty: 270 1RF metformin 500 mg tablet 1,000 mg PO BID 90 Days Qty: 360 1RF fluticasone furoate-vilanterol [Breo Ellipta] 200-25 mcg/dose blister with device 1 inh inhalation DAILY 30 Days Qty: 1 6RF furosemide 20 mg tablet 20 mg PO DAILY 30 Days Qty: 30 3RF (DME) lancets [TRUEplus Lancets] 33 gauge misc See Rx Instructions .ROUTE .MEDSUPPLY Qty: 120 11RF Rx Instructions: 4 times a day Januvia 100 mg tablet 100 mg PO DAILY 30 Days Qty: 30 6RF lidocaine [Lidoderm] 5 % adhesive patch,medicated 1 patch topical DAILY Qty: 15 0RF Rx Instructions: leave on most painful area for up to 12 hrs prednisone 20 mg Tablet 40 mg PO DAILY 3 Days Qty: 6 0RF benzonatate 100 mg Capsule 100 mg PO TID 7 Days Qty: 21 0RF guaifenesin [Mucinex] 600 mg Tablet Extended Release 12hr 600 mg PO BID 7 Days Qty: 14 0RF azithromycin 250 mg tablet 250 mg PO DAILY 3 Days Qty: 3 0RF Rx Instructions: start on day 2 of therapy levothyroxine 125 mcg tablet 1 tab PO DAILY@0600 hydroxyzine HCl 25 mg tablet 1 - 2 tab PO BEDTIME PRN (Reason: Anxiety) albuterol sulfate [ProAir HFA] 90 mcg/actuation HFA aerosol inhaler 2 puff inhalation Q4-6H PRN (Reason: asthma) nortriptyline 50 mg capsule 1 cap PO BEDTIME Rx Instructions: TAKE WITH 75 MG Humulin R U-500 (Conc) Kwikpen 500 unit/mL (3 mL) insulin pen 110 unit subcut DAILY@1700 Humulin R U-500 (Conc) Kwikpen 500 unit/mL (3 mL) insulin pen 130 unit subcut DAILY clonidine HCl 0.1 mg tablet 0.1 mg PO BEDTIME rosuvastatin [Crestor] 20 mg tablet 20 mg PO DAILY thiamine HCl (vitamin B1) 100 mg tablet 100 mg PO DAILY Rx Instructions: WITH MEAL ferrous sulfate 325 mg (65 mg iron) tablet 325 mg PO Q OTHER DAY clonazepam 1 mg tablet 1 mg PO TID PRN (Reason: Anxiety) valsartan 160 mg tablet 160 mg PO DAILY omeprazole 20 mg capsule,delayed release(DR/EC) 20 mg PO DAILY@0630 melatonin 5 mg tablet 5 - 10 mg PO BEDTIME PRN (Reason: Sleep) hydrochlorothiazide 25 mg tablet 25 mg PO DAILY cyanocobalamin (vitamin B-12) 1,000 mcg/mL solution 1,000 mcg IM [id number] aspirin 81 mg tablet,delayed release (DR/EC) 81 mg PO DAILY oxybutynin chloride 10 mg tablet extended release 24hr 10 mg PO DAILY Flovent HFA 110 mcg/actuation HFA aerosol inhaler 1 puff PO BID docusate sodium 100 mg capsule 100 mg PO BID cholecalciferol (vitamin D3) 50 mcg (2,000 unit) capsule 50 mcg PO DAILY (DME) blood-glucose meter [FreeStyle Lite Meter] Kit See Rx Instructions .Route Rx Instructions: As directed albuterol sulfate 2.5 mg /3 mL (0.083 %) solution for nebulization inhalation Q4H Referrals: Jaida Martin DO [Primary Care Provider] -
--- NOTE | 2022-03-13 07:29 | PC.NURSE ---
Patient primarily Kazakh speaking fall at home complaint of left sided face pain and back pain. No midline cervical tenderness noted is in c collar. LS clear but diminished no respiratory distress noted. AOx 4 grasp equal BUE patient to CT will CTM
[2022-03-13 07:45] LABS: MANUAL DIFF FLAG NO
[2022-03-13 07:47] LABS: Basophils Percent Auto 0.4 % (0-2); Eosinophils Absolute Auto 0.2 X10*3/uL (0.0-0.4); Eosinophils Percent Auto 1.8 % (0-4); Hematocrit 36.1 % (37.0-47.0); Imm Gran Abs Auto 0.06 X10*3/uL (0.00-0.03); Imm Gran Pct Auto 0.6 % (0.0-0.4); Lymphocytes Absolute Auto 2.9 X10*3/uL (1.2-4.9); Lymphocytes Percent Auto 28.1 % (20-40); Mean Corpuscular HGB Conc 30.5 g/dl (31.0-35.0); Mean Corpuscular Hemoglobin 25.9 pg (27.0-33.0); Mean Corpuscular Volume 85.1 fL (80.0-98.0); Mean Platelet Volume 10.1 fL (9.4-12.3); Monocytes Absolute Auto 0.8 X10*3/uL (0.1-1.2); Monocytes Percent Auto 7.3 % (2-11); Neutrophils Absolute Auto 6.4 x10*3/uL (2.0-8.3); Neutrophils Percent Auto 61.8 % (45-73); Platelet Count 266 X10*3/uL (160-400); Red Blood Count 4.24 X10*6/uL (4.20-5.50); Red Cell Distribution Width 15.9 % (11.0-16.0); White Blood Count 10.3 X10*3/uL (4.8-10.8)
[2022-03-13 08:11] LABS: Alanine Aminotransferase 10 U/L (0-31); Albumin Level 3.8 g/dL (3.5-5.0); Alkaline Phosphatase 126 U/L (39-117); Anion Gap 12 (12-20); Aspartate Amino Transferase 19 U/L (5-31); Bilirubin Total 0.4 mg/dL (0.0-1.0); Blood Urea Nitrogen 9 mg/dL (9-16); Calcium 9.1 mg/dL (8.4-10.2); Carbon Dioxide 30 mmol/L (22-29); Chloride 107 mmol/L (96-108); Creatinine Clr Calc Pharmacy 148.7; Estimated Glomerular Filt Rate > 60; Glucose Random 117 mg/dL (60-115); Sodium 146 mmol/L (135-145); Total Protein 6.9 g/dL (6.5-8.0)
[2022-03-13 09:04] VITALS: BP 155/85; PULSE 83; RESP 20; TEMP 36.8; O2SAT 96
--- NOTE | 2022-03-13 09:26 | PC.NURSE ---
Notified of CT report c collar removed.
[2022-03-13] MEDS: Potassium Chloride ER 20 MEQ TAB.ER.PRT 60 MEQ PO (09:42)
[2022-03-13] MEDS: Acetaminophen 325 MG TABLET 975 MG PO (09:43)
[2022-03-13] MEDS: Ibuprofen 400 MG TABLET PO (09:43)
[2022-03-13 10:00] VITALS: BP 127/52; PULSE 82; RESP 20; O2SAT 93
== END 2022-03-13 10:07 | disposition home or self-care (01) ==
PROVIDERS: Emergency Provider Student in an Organized Health Care Education/Training Program; PCP Family Medicine
DX: S00.12XA Contusion of left eyelid and periocular area, initial encounter (principal); W06.XXXA Fall from bed, initial encounter; E11.9 Type 2 diabetes mellitus without complications; I10 Essential (primary) hypertension; E78.5 Hyperlipidemia, unspecified; E66.9 Obesity, unspecified; Z68.41 Body mass index [BMI] 40.0-44.9, adult; Y93.84 Activity, sleeping; Y92.032 Bedroom in apartment as the place of occurrence of the external cause; Y99.9 Unspecified external cause status; Z79.02 Long term (current) use of antithrombotics/antiplatelets; Z79.82 Long term (current) use of aspirin; Z79.4 Long term (current) use of insulin; Z79.899 Other long term (current) drug therapy
CPT/HCPCS: 36415; 70450; 70486; 71250; 72125; 80053; 82947; 85025; 93005; 99284

== ENCOUNTER → 2022-03-20 13:28 | Outpatient (BNVA) | payer MEDICAID, SELFPAY | PROVIDERS: PCP Family Medicine; Referring Provider Family Medicine; Visit Provider Nurse Practitioner Family | DX: I10 Essential (primary) hypertension (principal); R06.02 Shortness of breath; R93.1 Abnormal findings on diagnostic imaging of heart and coronary circulation; E78.5 Hyperlipidemia, unspecified; E66.01 Morbid (severe) obesity due to excess calories; Z68.42 Body mass index [BMI] 45.0-49.9, adult | CPT/HCPCS: 99212 ==

== ENCOUNTER → 2022-03-27 09:27 | Outpatient (BNVA) | payer MEDICAID, SELFPAY | PROVIDERS: PCP Family Medicine; Visit Provider Internal Medicine Pulmonary Disease | DX: G47.33 Obstructive sleep apnea (adult) (pediatric) (principal); J98.4 Other disorders of lung; E66.01 Morbid (severe) obesity due to excess calories; Z99.89 Dependence on other enabling machines and devices; Z68.42 Body mass index [BMI] 45.0-49.9, adult | CPT/HCPCS: 99212 ==

== ENCOUNTER 2022-04-01 08:24 | Emergency (ER) | payer MEDICAID, SELFPAY ==
[2022-04-01] VITALS (7 sets, daily range): BP systolic 120–155; BP diastolic 65–77; PULSE 82–91; RESP 16–18; TEMP 36.4–37.1; O2SAT 90–97; BMI 47.7
--- NOTE | ~2022-04-01 | US_ITS ---
EXAMINATION: US ABDOMEN LIMITED CLINICAL INFORMATION: Right upper quadrant tenderness, nausea and vomiting. COMPARISON: CT abdomen/pelvis 08/07/2021. TECHNIQUE: Real-time imaging of the right upper quadrant abdominal viscera. FINDINGS: PANCREAS: Suboptimally assessed due to shadowing from overlying bowel gas. LIVER: Enlarged measuring 22.4 cm in length with increased parenchymal echogenicity. No focal lesion. No intrahepatic hepatic biliary ductal dilatation. GALLBLADDER: Normal. The gallbladder is physiologically distended without evidence of stones, sludge, polyps, wall thickening or pericholecystic fluid. COMMON BILE DUCT: Normal in caliber measuring 0.5 cm in diameter. RIGHT KIDNEY: Normal. No hydronephrosis. No renal calculi or focal parenchymal lesions. The kidney measures 12 cm in maximum dimension. FREE FLUID: None. US/US abdomen limited IMPRESSION: 1. Hepatomegaly with increased parenchymal echogenicity suggesting hepatic steatosis and/or hepatocellular disease. 2. Otherwise, normal examination with the caveat that the pancreas was not well visualized due to shadowing from overlying bowel gas.
--- NOTE | ~2022-04-01 | XR_ITS ---
EXAMINATION: XR CHEST CLINICAL INFORMATION: Shortness of breath. COMPARISON: Chest radiograph 11/10/2021. CT chest 03/13/2022. TECHNIQUE: 2 views of the chest were obtained. FINDINGS: No significant cardiomediastinal contour abnormality. Mild bibasilar subsegmental atelectasis. No focal infiltrate, pleural effusion or pneumothorax. Thoracic spondylosis. No acute osseous abnormalities. The visualized upper abdomen is within normal limits. XR/XR chest 2V IMPRESSION: Mild bibasilar subsegmental atelectasis. No focal infiltrate, pleural effusion or pneumothorax.
[2022-04-01 08:46] LABS: MANUAL DIFF FLAG NO
[2022-04-01 08:50] LABS: Basophils Absolute Auto 0.1 X10*3/uL (0.0-0.2); Basophils Percent Auto 0.5 % (0-2); Eosinophils Absolute Auto 0.2 X10*3/uL (0.0-0.4); Eosinophils Percent Auto 2.1 % (0-4); Hematocrit 37.7 % (37.0-47.0); Hemoglobin 11.4 g/dl (12.0-16.0); Imm Gran Abs Auto 0.05 X10*3/uL (0.00-0.03); Imm Gran Pct Auto 0.5 % (0.0-0.4); Lymphocytes Absolute Auto 3.7 X10*3/uL (1.2-4.9); Mean Corpuscular HGB Conc 30.2 g/dl (31.0-35.0); Mean Corpuscular Hemoglobin 25.7 pg (27.0-33.0); Mean Corpuscular Volume 84.9 fL (80.0-98.0); Mean Platelet Volume 10.3 fL (9.4-12.3); Monocytes Absolute Auto 0.7 X10*3/uL (0.1-1.2); Monocytes Percent Auto 6.5 % (2-11); Neutrophils Absolute Auto 5.9 x10*3/uL (2.0-8.3); Neutrophils Percent Auto 55.4 % (45-73); Platelet Count 299 X10*3/uL (160-400); Red Blood Count 4.44 X10*6/uL (4.20-5.50); Red Cell Distribution Width 15.6 % (11.0-16.0); White Blood Count 10.5 X10*3/uL (4.8-10.8)
[2022-04-01 09:06] LABS: Anion Gap 13 (12-20); Blood Urea Nitrogen 8 mg/dL (9-16); Calcium 9.3 mg/dL (8.4-10.2); Carbon Dioxide 34 mmol/L (22-29); Chloride 103 mmol/L (96-108); Estimated Glomerular Filt Rate > 60; Glucose Random 168 mg/dL (60-115); Potassium 3.2 mmol/L (3.3-5.1); Sodium 147 mmol/L (135-145)
[2022-04-01 10:10] LABS: Appearance Urine Clear; Color Urine Yellow; Glucose Urine UA Negative (Negative); Leukocyte Esterase Urine Negative (Negative); Nitrite Urine Negative (Negative); PH 6.5 (5.0-9.0); Specific Gravity - Urine <= 1.005 (1.005-1.025); Urine Blood Negative (Negative); Urine Ketones Negative (Negative); Urine Protein Negative (Neg-Trace)
[2022-04-01 10:35] LABS: Alanine Aminotransferase 12 U/L (0-31); Albumin Level 4.1 g/dL (3.5-5.0); Alkaline Phosphatase 138 U/L (39-117); Aspartate Amino Transferase 16 U/L (5-31); Bilirubin Direct 0.2 mg/dL (0.0-0.5); Bilirubin Total 0.5 mg/dL (0.0-1.0); Lipase 8 U/L (8-78); Total Protein 7.4 g/dL (6.5-8.0)
--- NOTE | 2022-04-01 10:58 | ECG_ITS ---
Test Reason : chest pain Blood Pressure : / mmHG Vent. Rate : 085 BPM Atrial Rate : 085 BPM P-R Int : 126 ms QRS Dur : 104 ms QT Int : 402 ms P-R-T Axes : 046 030 048 degrees QTc Int : 478 ms Normal sinus rhythm Minimal voltage criteria for LVH, may be normal variant ( [place] product ) Borderline ECG When compared with ECG of 13-MAR-2022 05:13, Nonspecific T wave abnormality no longer evident in Lateral leads Referred By: Ofelia Benjamin Electronically Signed By:Simba Redmond
--- NOTE | 2022-04-01 11:26 | ED.ABDPAIN ---
HPI - Abdominal Pain General Chief Complaint: Abdominal Pain Stated Complaint: Vomiting/Diarrhea Time Seen by Provider: 04/01/22 09:56 Source: patient Mode of arrival: ambulatory Limitations: no limitations History of Present Illness HPI narrative: patient is a 56 old female who presents to the emergency department with multiple complaints. She states that she has been experiencing vomiting and diarrhea since yesterday evening without associated abdominal pain, dysuria, urinary frequency / urgency / hesitancy, pelvic pain, abnormal vaginal discharge or bleeding. She reports 3-4 episodes of clear/ saliva like emesis, and approximately 5 episodes of diarrhea that is awaking her from her sleep, dark brown in color, denies black stool/bloody stools/mucus. She also expresses concern about an asthma exacerbation, she states she is feeling shortness of breath, that was unrelieved with inhaler / nebulizer at home, and she is having mid/sternal chest pain that is made worse with deep inspiration /movement, it is described as a tightness. Denies any associated fevers, chills, cough, upper respiratory symptoms. Related Data Home Medications Medication Instructions Recorded Confirmed clonidine HCl 0.1 mg tablet 0.1 mg PO BEDTIME 11/30/19 03/20/22 ferrous sulfate 325 mg (65 mg 325 mg PO Q OTHER DAY 11/30/19 03/20/22 iron) tablet rosuvastatin 20 mg tablet (Crestor) 20 mg PO DAILY 11/30/19 03/20/22 thiamine HCl (vitamin B1) 100 mg 100 mg PO DAILY 11/30/19 03/20/22 tablet aspirin 81 mg tablet,delayed 81 mg PO DAILY 01/01/21 03/20/22 release cyanocobalamin (vitamin B-12) 1,000 mcg IM [id number] 01/01/21 03/20/22 1,000 mcg/mL injection solution hydrochlorothiazide 25 mg tablet 25 mg PO DAILY 01/01/21 03/20/22 melatonin 5 mg tablet 5 - 10 mg PO BEDTIME PRN Sleep 01/01/21 03/20/22 oxybutynin chloride 10 mg 10 mg PO DAILY 01/01/21 03/20/22 tablet,extended release 24 hr clonazepam 1 mg tablet 1 mg PO TID PRN Anxiety 05/07/21 03/20/22 omeprazole 20 mg capsule,delayed 20 mg PO DAILY@0630 05/07/21 03/20/22 release valsartan 160 mg tablet 160 mg PO DAILY 05/07/21 03/20/22 cholecalciferol (vitamin D3) 50 50 mcg PO DAILY 07/12/21 03/20/22 mcg (2,000 unit) capsule docusate sodium 100 mg capsule 100 mg PO BID 09/26/21 03/20/22 albuterol sulfate 90 mcg/actuation 2 puff inhalation Q4-6H PRN asthma 10/23/21 03/20/22 aerosol inhaler (ProAir HFA) hydroxyzine HCl 25 mg tablet 1 - 2 tab PO BEDTIME PRN Anxiety 10/23/21 03/20/22 levothyroxine 125 mcg tablet 1 tab PO DAILY@0600 10/23/21 03/20/22 nortriptyline 50 mg capsule 1 cap PO BEDTIME 10/23/21 03/20/22 albuterol sulfate 2.5 mg/3 mL mg inhalation Q4H 12/04/21 03/20/22 (0.083 %) solution for nebulization blood-glucose meter (Lexos MediaStyle 12/26/21 03/20/22 Lite Meter kit) insulin regular hum U-500 conc 500 110 unit subcut DAILY@1700 12/26/21 03/20/22 unit/mL(3 mL) subcut pen (Humulin R U-500 (Conc) Insulin Kwikpen) insulin regular hum U-500 conc 500 130 unit subcut DAILY 12/26/21 03/20/22 unit/mL(3 mL) subcut pen (Humulin R U-500 (Conc) Insulin Kwikpen) Previous Rx's Medication Instructions Recorded propranolol 80 mg tablet 80 mg PO BID 90 days #180 tabs 05/20/21 glucagon 3 mg/actuation nasal 3 mg intranasal ONCE unresponsive 05/30/21 spray (Baqsimi) hypoglycemia 30 days #4 ea metoclopramide HCl 5 mg tablet 5 mg PO BEDTIME #30 tabs 07/31/21 lidocaine 5 % topical patch 1 patch topical DAILY #15 ea 08/07/21 (Lidoderm) blood sugar diagnostic (FreeStyle #150 ea 10/28/21 Lite Strips) benzonatate 100 mg capsule 100 mg PO TID 7 days #21 caps 11/12/21 guaifenesin 600 mg tablet, 600 mg PO BID 7 days #14 tabs 11/12/21 extended release 12 hr (Mucinex) gabapentin 400 mg capsule 400 mg PO TID #270 caps 11/25/21 metformin 500 mg tablet 1,000 mg PO BID 90 days #360 tabs 11/26/21 TRUEplus Lancets 33 gauge (lancets) #120 ea 12/13/21 sitagliptin phosphate 100 mg 100 mg PO DAILY 30 days #30 tabs 02/20/22 tablet (Januvia) furosemide 20 mg tablet 20 mg PO QAM 30 days #30 tabs 03/13/22 pen needle, diabetic 32 gauge x #100 ea 03/25/22 (BD Usha 2nd Gen Pen Needle) fluticasone furoate 200 1 inh inhalation DAILY 30 days #1 03/27/22 mcg-vilanterol 25 mcg/dose ea inhalation powder (Breo Ellipta) Allergies Allergy/AdvReac Type Severity Reaction Status Date / Time No Known Allergies Allergy Verified 03/20/22 14:19 [No Known Allergies*] Review of Systems Review of Systems Constitutional : No Weight loss, No Fever, No Chills ENT/Mouth :? No sore throat, No Rhinorrhea Eyes: No Swelling, No Redness Cardiovascular : positive Chest Pain, positive SOB, No Edema Respiratory : No Cough, No Sputum, No Wheezing Gastrointestinal : Positive Nausea, Positive Vomiting, positive Diarrhea, no abdominal pain, No Hematochezia, No Melena Genitourinary : No Dysuria, No Urinary Frequency, No Hematuria, No Urgency? Musculoskeletal : No joint pain, No Myalgias, No Joint Swelling Skin : No Skin Lesions, No rash Neuro : No Weakness, No Numbness, No Dizziness, No Headache Psych : No Anxiety/Panic, No Depression Heme/Lymph: No Bruising, No Lymphadenopathy Endocrine : No Polyuria, No Polydipsia Yes all other systems are reviewed and are negative [facility] Past Medical History Medical History Anemia Anxiety Asthma Bilateral pneumonia Chest pain Chronic pain syndrome Dental crowns present Depression 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, uncontrolled Diabetic nephropathy associated with type 2 diabetes mellitus Dyslipidemia Family history of colon cancer Fibromyalgia Gastroparesis Genu valgum GERD (gastroesophageal reflux disease) Hemorrhoids HTN (hypertension) 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 due to insulin Hypothyroidism Inappropriate sinus tachycardia Insomnia 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 Low back pain Lumbar spondylosis Migraine Morbid obesity Obstructive sleep apnea on CPAP Palpitations Paranoia (psychosis) Patella-femoral syndrome Patellofemoral arthritis Respiratory failure Sacroiliitis Scoliosis of thoracolumbar spine Spondylosis of lumbar region without myelopathy or radiculopathy Stress incontinence Tubular adenoma Vitamin D deficiency Surgical History H/O esophagogastroduodenoscopy History of arthroscopy of right knee History of bilateral carpal tunnel release History of bladder surgery History of colonoscopy History of tubal ligation Hx of section Hx of tonsillectomy Family History Family History Father Stomach cancer Mother Heart disease HTN (hypertension) Diabetes Son No problems noted. Paternal Aunt Stomach cancer Sister Stomach cancer Sister Uterine cancer Social History Social History Household Members: Family Housing: Apartment Are you a primary managed care analyst to a significant other at home: No Do you presently have visiting nurse or other home services: Yes ([employer]) Alcohol intake: never Patient Tobacco Use Status: Never used Tobacco Second Hand Smoke Exposure: No Advance Directives: No Advance Directives Information Provided: Yes service: No Current occupational status: disabled Current occupation: lt handed Sexual orientation: Straight/Heterosexual Gender identity: Female Physical Exam ED Vital Signs: Vital Signs - 24 hr 04/01/22 08:35 04/01/22 10:17 04/01/22 11:44 Temperature 97.5 F 98.0 F Pulse Rate 86 82 84 Respiratory Rate 16 16 16 Blood Pressure 155/77 H 136/70 Pulse Oximetry 97 92 Oxygen Delivery Method Room Air Room Air 04/01/22 12:33 04/01/22 14:22 04/01/22 14:49 Temperature 98.2 F 98.2 F Pulse Rate 87 86 Respiratory Rate 18 16 Blood Pressure 134/69 134/66 Pulse Oximetry 90 L 96 94 Oxygen Delivery Method Room Air Room Air Room Air 04/01/22 16:52 Temperature 98.8 F Pulse Rate 91 Respiratory Rate 16 Blood Pressure 120/65 Pulse Oximetry 95 Oxygen Delivery Method BMI result Body Mass Index 47.7 Appearance: Alert.?Oriented to person, place and time. No acute distress.?Normal affect. Eyes: Pupils equal, round and reactive to light.? ENT: Pharynx normal.?? Neck: Normal inspection.? Neck supple.?? CVS: Heart sounds normal. Normal heart rate and rhythm.? Pulses normal.?? Respiratory: No respiratory distress.? Lung sounds Diminished bilaterally with expiratory wheezing to the bilateral bases. Abdomen: Soft with right upper quadrant tenderness upon palpation, negative Beltran sign, epigastric tenderness. No rigidity. No guarding. Negative rebound tenderness at McBurney's point, negative obturator's sign, negative psoas sign, negative Rovsing sign.. Normoactive bowel sounds. No pulsatile mass.?? Skin: Skin warm and dry.? Normal skin color.? Extremities: No lower extremity edema.? No calf ttp? Neuro: Moves all extremities spontaneously. Sensation intact bilaterally. CN II-XII intact. No focal neuro deficits. Ambulates with normal steady gait. Course Reevaluation(s) Reevaluation #1: CBC reveals no leukocytosis, no significant anemia. CMP with mild hypernatremia, which is been noted on prior visits as well, discussed with patient increasing fluid intake. Mild hypokalemia 3.2, replaced with potassium 40 mEq p.o. urinalysis without evidence of infection. Urine is negative. Troponin <3.5, EKG revealing normal sinus rhythm without acute ischemic findings, do not suspect ACS at this time. Chest x-ray revealing mild bibasilar sub segmental atelectasis, no focal infiltrate, effusion. She denies chest pain at this time, and her shortness of breath has improved since receiving nebulizer, at this time I do not feel this is an acute exacerbation of asthma, not currently indicated to have management with oral steroids. ambulatory O2 trial without significant tachycardia, no hypoxia, and no increased work of breathing. Advised continued use of inhaler/nebulizer at home. Influenza testing is negative. COVID-19 testing negative. Patient has not had any episodes of vomiting or diarrhea, Tolerating oral intake at this time. Reviewed with patient, nausea/ vomiting may be secondary to gastritis, versus potential viral etiology. Time: 14:46 Medical Decision Making Medical Decision Making MDM Narrative: Patient is a 56-year-old female with past medical history of anemia, anxiety, asthma, chronic pain syndrome, depression, type 2 diabetes with neuropathy, fibromyalgia, gastroparesis, GERD, hypertension, hypothyroidism, migraine, DINA presenting to emergency department for evaluation of multiple complaints. Reported concern for asthma exacerbation with complaint of midsternal chest pain/ tightness and shortness of breath, however she has no respiratory distress, lung sounds are diminished bilaterally, with expiratory wheezing to the bilateral bases, speaking clear full sentences, she is without tachycardia, tachypnea, or hypoxia, and she is afebrile. Additionally complaining of vomiting and diarrhea, abdominal examination notable for right upper quadrant / epigastric tenderness upon palpation, otherwise benign, no rigidity, no guarding, does not appear consistent with acute abdomen. Will obtain CBC to evaluate for leukocytosis/ anemia, CMP and lipase to evaluate for abnormal electrolytes /abnormal renal function/ abnormal hepatic/biliary function, Viral testing, EKG and troponin to evaluate for ischemia/ACS. Chest x-ray to evaluate for consolidation/ infiltrate/ mass/ pulmonary congestion/ evidence of pneumonia, US Right upper quadrant to evaluate for cholecystitis, cholelithiasis, and Urinalysis. at this time patient to receive 1 L normal saline IV, Zofran IV for nausea, albuterol 7.5 mg nebulizer. Differential Diagnosis Differential Diagnoses: The differential diagnosis associated with the presentation includes ( As noted above) Lab Data MDM Lab Attestation statement: I reviewed the patient's lab results. 04/01/22 08:43 04/01/22 08:43 Labs: Lab Results 04/01/22 04/01/22 04/01/22 Range/Units 08:43 08:43 09:49 WBC 10.5 (4.8-10.8) X10*3/uL RBC 4.44 (4.20-5.50) X10*6/uL Hgb 11.4 L (12.0-16.0) g/dl Hct 37.7 (37.0-47.0) % MCV 84.9 (80.0-98.0) fL MCH 25.7 L (27.0-33.0) pg MCHC 30.2 L (31.0-35.0) g/dl RDW 15.6 (11.0-16.0) % Plt Count 299 (160-400) X10*3/uL MPV 10.3 (9.4-12.3) fL Immature Gran % (Auto) 0.5 H (0.0-0.4) % Neut % (Auto) 55.4 (45-73) % Lymph % (Auto) 35.0 (20-40) % [place] % (Auto) 6.5 (2-11) % Eos % (Auto) 2.1 (0-4) % Baso % (Auto) 0.5 (0-2) % Lymph # (Auto) 3.7 (1.2-4.9) X10*3/uL [place] # (Auto) 0.7 (0.1-1.2) X10*3/uL Eos # (Auto) 0.2 (0.0-0.4) X10*3/uL Baso # (Auto) 0.1 (0.0-0.2) X10*3/uL Abs Immat Gran (auto) 0.05 H (0.00-0.03) X10*3/uL Absolute Neuts (auto) 5.9 (2.0-8.3) x10*3/uL Absolute Nucleated RBC 0.000 (0.0-0.012) X10*3/uL Nucleated RBC % (auto) 0.0 (0.0-0.2) /100WBC Sodium 147 H (135-145) mmol/L Potassium 3.2 L (3.3-5.1) mmol/L Chloride 103 (96-108) mmol/L Carbon Dioxide 34 H (22-29) mmol/L Anion Gap 13 (12-20) BUN 8 L (9-16) mg/dL Creatinine 0.66 (0.5-1.4) mg/dL Estim Creat Clear Calc 128.0 Estimated GFR > 60 Random Glucose 168 H (60-115) mg/dL Calcium 9.3 (8.4-10.2) mg/dL Total Bilirubin 0.5 (0.0-1.0) mg/dL Direct Bilirubin 0.2 (0.0-0.5) mg/dL AST 16 (5-31) U/L ALT 12 (0-31) U/L Alkaline Phosphatase 138 H (39-117) U/L Troponin I High Sens (<3.5-17.0) ng/L Total Protein 7.4 (6.5-8.0) g/dL Albumin 4.1 (3.5-5.0) g/dL Lipase 8 (8-78) U/L Urine Color Yellow Urine Appearance Clear Urine pH 6.5 (5.0-9.0) Ur Specific [place] <= 1.005 (1.005-1.025) Urine Protein Negative (Neg-Trace) mg/dL Urine Glucose (UA) Negative (Negative) mg/dL Urine Ketones Negative (Negative) mg/dL Urine Blood Negative (Negative) Urine Nitrite Negative (Negative) Ur Leukocyte Esterase Negative (Negative) Urine Test (NEGATIVE) COVID-19 (ASHLEY) (Negative) COVID-19 Clin Com Influenza Type A (DRE) (Negative) Influenza Type B (DRE) (Negative) Influenza A & B Note 04/01/22 04/01/22 04/01/22 Range/Units 09:49 11:45 11:45 WBC (4.8-10.8) X10*3/uL RBC (4.20-5.50) X10*6/uL Hgb (12.0-16.0) g/dl Hct (37.0-47.0) % MCV (80.0-98.0) fL MCH (27.0-33.0) pg MCHC (31.0-35.0) g/dl RDW (11.0-16.0) % Plt Count (160-400) X10*3/uL MPV (9.4-12.3) fL Immature Gran % (Auto) (0.0-0.4) % Neut % (Auto) (45-73) % Lymph % (Auto) (20-40) % [place] % (Auto) (2-11) % Eos % (Auto) (0-4) % Baso % (Auto) (0-2) % Lymph # (Auto) (1.2-4.9) X10*3/uL [place] # (Auto) (0.1-1.2) X10*3/uL Eos # (Auto) (0.0-0.4) X10*3/uL Baso # (Auto) (0.0-0.2) X10*3/uL Abs Immat Gran (auto) (0.00-0.03) X10*3/uL Absolute Neuts (auto) (2.0-8.3) x10*3/uL Absolute Nucleated RBC (0.0-0.012) X10*3/uL Nucleated RBC % (auto) (0.0-0.2) /100WBC Sodium (135-145) mmol/L Potassium (3.3-5.1) mmol/L Chloride (96-108) mmol/L Carbon Dioxide (22-29) mmol/L Anion Gap (12-20) BUN (9-16) mg/dL Creatinine (0.5-1.4) mg/dL Estim Creat Clear Calc Estimated GFR Random Glucose (60-115) mg/dL Calcium (8.4-10.2) mg/dL Total Bilirubin (0.0-1.0) mg/dL Direct Bilirubin (0.0-0.5) mg/dL AST (5-31) U/L ALT (0-31) U/L Alkaline Phosphatase (39-117) U/L Troponin I High Sens < 3.5 (<3.5-17.0) ng/L Total Protein (6.5-8.0) g/dL Albumin (3.5-5.0) g/dL Lipase (8-78) U/L Urine Color Urine Appearance Urine pH (5.0-9.0) Ur Specific [place] (1.005-1.025) Urine Protein (Neg-Trace) mg/dL Urine Glucose (UA) (Negative) mg/dL Urine Ketones (Negative) mg/dL Urine Blood (Negative) Urine Nitrite (Negative) Ur Leukocyte Esterase (Negative) Urine Test NEGATIVE (NEGATIVE) COVID-19 (ASHLEY) (Negative) COVID-19 Clin Com Influenza Type A (DRE) Negative (Negative) Influenza Type B (DRE) Negative (Negative) Influenza A & B Note See Note 04/01/22 Range/Units 15:12 WBC (4.8-10.8) X10*3/uL RBC (4.20-5.50) X10*6/uL Hgb (12.0-16.0) g/dl Hct (37.0-47.0) % MCV (80.0-98.0) fL MCH (27.0-33.0) pg MCHC (31.0-35.0) g/dl RDW (11.0-16.0) % Plt Count (160-400) X10*3/uL MPV (9.4-12.3) fL Immature Gran % (Auto) (0.0-0.4) % Neut % (Auto) (45-73) % Lymph % (Auto) (20-40) % [place] % (Auto) (2-11) % Eos % (Auto) (0-4) % Baso % (Auto) (0-2) % Lymph # (Auto) (1.2-4.9) X10*3/uL [place] # (Auto) (0.1-1.2) X10*3/uL Eos # (Auto) (0.0-0.4) X10*3/uL Baso # (Auto) (0.0-0.2) X10*3/uL Abs Immat Gran (auto) (0.00-0.03) X10*3/uL Absolute Neuts (auto) (2.0-8.3) x10*3/uL Absolute Nucleated RBC (0.0-0.012) X10*3/uL Nucleated RBC % (auto) (0.0-0.2) /100WBC Sodium (135-145) mmol/L Potassium (3.3-5.1) mmol/L Chloride (96-108) mmol/L Carbon Dioxide (22-29) mmol/L Anion Gap (12-20) BUN (9-16) mg/dL Creatinine (0.5-1.4) mg/dL Estim Creat Clear Calc Estimated GFR Random Glucose (60-115) mg/dL Calcium (8.4-10.2) mg/dL Total Bilirubin (0.0-1.0) mg/dL Direct Bilirubin (0.0-0.5) mg/dL AST (5-31) U/L ALT (0-31) U/L Alkaline Phosphatase (39-117) U/L Troponin I High Sens (<3.5-17.0) ng/L Total Protein (6.5-8.0) g/dL Albumin (3.5-5.0) g/dL Lipase (8-78) U/L Urine Color Urine Appearance Urine pH (5.0-9.0) Ur Specific [place] (1.005-1.025) Urine Protein (Neg-Trace) mg/dL Urine Glucose (UA) (Negative) mg/dL Urine Ketones (Negative) mg/dL Urine Blood (Negative) Urine Nitrite (Negative) Ur Leukocyte Esterase (Negative) Urine Test (NEGATIVE) COVID-19 (ASHLEY) Negative (Negative) COVID-19 Clin Com See Note Influenza Type A (DRE) (Negative) Influenza Type B (DRE) (Negative) Influenza A & B Note Independent Interpretation I performed an independent interpretation of an: EKG, Plain X-Ray ( I personally interpreted chest x-ray and agree with radiologist impression) and Ultrasound Interpretation: EKG Rate: 85 Rhythm:? normal sinus rhythm [place]:? normal Normal P waves.? Normal [place].?? Normal QRS complex.?? ST T wave :?? no ST elevation, no ST depression, no T-wave inversion qTC: 478 prior studies:? March 2022 The study has been interpreted contemporaneously by me. Radiology Impression Discussion of test interpretation with radiology: I have reviewed the radiologist's reading. Radiologist Impression: XR/XR chest 2V IMPRESSION: Mild bibasilar subsegmental atelectasis. No focal infiltrate, pleural effusion or pneumothorax. US/US abdomen limited IMPRESSION: 1.? Hepatomegaly with increased parenchymal echogenicity suggesting hepatic steatosis and/or hepatocellular disease. 2.? Otherwise, normal examination with the caveat that the pancreas was not well visualized due to shadowing from overlying bowel gas. ? External Record Review External record reviewed: Outpatient record Medications Administered Discontinued Medications Generic Name Dose Route Start Last Admin Trade Name Freq PRN Reason Stop Dose Admin Albuterol Sulfate 7.5 mg 04/01/22 10:57 04/01/22 11:44 Albuterol Sulfate (0.083%) 2.5 Mg/3 Ml Vial.Neb INHALE 04/01/22 10:58 7.5 mg ONCE ONE Administration Sodium Chloride 1,000 mls @ 999 mls/hr 04/01/22 11:00 04/01/22 16:05 Ns IV 04/01/22 12:00 Infused .Q1H1M KELSY Infusion Ondansetron HCl 4 mg 04/01/22 10:57 04/01/22 12:02 Ondansetron Hcl 4 Mg/2 Ml Vial IVPUSH 04/01/22 10:58 4 mg ONCE ONE Administration Potassium Chloride 40 meq 04/01/22 11:15 04/01/22 12:02 Potassium Chloride Er 20 Meq Tab.Er.Prt PO 04/01/22 11:16 40 meq ONCE ONE Administration Discharge Plan Discharge Clinical Impression: Gastroenteritis, Asthma Patient Disposition: Home, Self-Care Instructions: Asthma (ED), Gastroenteritis (ED) Additional Instructions: Introduce a bland diet including crackers, bananas, rice, soup, toast, and boiled vegetables. This may progress to plain baked or boiled chicken or turkey. Avoid dairy products or foods high in fat or grease. Use Zofran as needed for nausea / vomiting. You can take ibuprofen 200 mg, 3 tablets (600mg) every 6-8 hours as needed for pain, in addition to Tylenol 500 mg, 2 tablets (1,000mg) every 4-6 hours as needed for pain, but not to exceed 3 doses daily (3,000mg).? Continue taking your inhaler and nebulizer/ albuterol for your asthma as needed. Follow-up with your primary care provider within 3 days return back to emergency department any new or worsening symptoms or concerns. Prescriptions: No Action propranolol 80 mg tablet 80 mg PO BID 90 Days Qty: 180 3RF Baqsimi 3 mg/actuation spray,non-aerosol 3 mg intranasal ONCE 30 Days Qty: 4 6RF Rx Instructions: [place] once for severe hypoglycemia when patient cannot self-treat with glucose. Afterwards turn on side. May repeat after 15 minutes if patient does not respond. metoclopramide HCl 5 mg tablet 5 mg PO BEDTIME Qty: 30 6RF (DME) FreeStyle Lite Strips Strip See Rx Instructions .MEDSUPPLY Qty: 150 5RF Rx Instructions: 5 times a day gabapentin 400 mg capsule 400 mg PO TID Qty: 270 1RF metformin 500 mg tablet 1,000 mg PO BID 90 Days Qty: 360 1RF (DME) lancets [TRUEplus Lancets] 33 gauge misc See Rx Instructions .ROUTE .MEDSUPPLY Qty: 120 11RF Rx Instructions: 4 times a day Januvia 100 mg tablet 100 mg PO DAILY 30 Days Qty: 30 6RF furosemide 20 mg tablet 20 mg PO QAM 30 Days Qty: 30 3RF (DME) pen needle, diabetic [BD Usha 2nd Gen Pen Needle] 32 gauge x 5/32 needle See Rx Instructions .MEDSUPPLY Qty: 100 11RF Rx Instructions: Twice a day lidocaine [Lidoderm] 5 % adhesive patch,medicated 1 patch topical DAILY Qty: 15 0RF Rx Instructions: leave on most painful area for up to 12 hrs benzonatate 100 mg Capsule 100 mg PO TID 7 Days Qty: 21 0RF guaifenesin [Mucinex] 600 mg Tablet Extended Release 12hr 600 mg PO BID 7 Days Qty: 14 0RF levothyroxine 125 mcg tablet 1 tab PO DAILY@0600 hydroxyzine HCl 25 mg tablet 1 - 2 tab PO BEDTIME PRN (Reason: Anxiety) albuterol sulfate [ProAir HFA] 90 mcg/actuation HFA aerosol inhaler 2 puff inhalation Q4-6H PRN (Reason: asthma) nortriptyline 50 mg capsule 1 cap PO BEDTIME Rx Instructions: TAKE WITH 75 MG Humulin R U-500 (Conc) Kwikpen 500 unit/mL (3 mL) insulin pen 110 unit subcut DAILY@1700 Humulin R U-500 (Conc) Kwikpen 500 unit/mL (3 mL) insulin pen 130 unit subcut DAILY clonidine HCl 0.1 mg tablet 0.1 mg PO BEDTIME rosuvastatin [Crestor] 20 mg tablet 20 mg PO DAILY thiamine HCl (vitamin B1) 100 mg tablet 100 mg PO DAILY Rx Instructions: WITH MEAL ferrous sulfate 325 mg (65 mg iron) tablet 325 mg PO Q OTHER DAY clonazepam 1 mg tablet 1 mg PO TID PRN (Reason: Anxiety) valsartan 160 mg tablet 160 mg PO DAILY omeprazole 20 mg capsule,delayed release(DR/EC) 20 mg PO DAILY@0630 melatonin 5 mg tablet 5 - 10 mg PO BEDTIME PRN (Reason: Sleep) hydrochlorothiazide 25 mg tablet 25 mg PO DAILY cyanocobalamin (vitamin B-12) 1,000 mcg/mL solution 1,000 mcg IM [id number] aspirin 81 mg tablet,delayed release (DR/EC) 81 mg PO DAILY oxybutynin chloride 10 mg tablet extended release 24hr 10 mg PO DAILY docusate sodium 100 mg capsule 100 mg PO BID cholecalciferol (vitamin D3) 50 mcg (2,000 unit) capsule 50 mcg PO DAILY (DME) blood-glucose meter [FreeStyle Lite Meter] Kit See Rx Instructions .Route Rx Instructions: As directed fluticasone furoate-vilanterol [Breo Ellipta] 200-25 mcg/dose blister with device 1 inh inhalation DAILY 30 Days Qty: 1 6RF albuterol sulfate 2.5 mg /3 mL (0.083 %) solution for nebulization inhalation Q4H Referrals: Jaida Martin DO [Primary Care Provider] - Interventions: ED Discharge Assessment Last Done: 04/01/22 17:11 Discharge Date/Time: 04/01/22 17:11 Print Language: Hungarian
[2022-04-01] MEDS: Albuterol Sulfate (0.083%) 2.5 MG/3 ML VIAL.NEB 7.5 MG INHALE (11:44)
[2022-04-01 11:54] LABS: UPreg QC Valid YES; Urine Pregnancy NEGATIVE (NEGATIVE)
[2022-04-01] MEDS: Potassium Chloride ER 20 MEQ TAB.ER.PRT 40 MEQ PO (12:02)
[2022-04-01] MEDS: ondansetron HCL 4 MG/2 ML VIAL IVPUSH (12:02)
[2022-04-01] MEDS: 0.9 % Sodium Chloride 1,000 ML 999 ML IV (12:02)
[2022-04-01 12:13] LABS: IDNOW Serial# 16C4AD1C; Influenza A Negative (Negative); Influenza B2 Negative (Negative)
[2022-04-01 12:29] LABS: Troponin-I High Sensitivity < 3.5 ng/L (<3.5-17.0)
[2022-04-01 15:59] LABS: COVID-19 Test Negative (Negative); IDNOW Serial# BCCEAD1C
== END 2022-04-01 17:11 | disposition home or self-care (01) ==
PROVIDERS: Nurse Practitioner Family; Emergency Provider Emergency Medicine; PCP Family Medicine
DX: K52.9 Noninfective gastroenteritis and colitis, unspecified (principal); J45.909 Unspecified asthma, uncomplicated; R11.10 Vomiting, unspecified; Z20.822 Contact with and (suspected) exposure to COVID-19; I10 Essential (primary) hypertension; E78.5 Hyperlipidemia, unspecified; E66.9 Obesity, unspecified; Z68.42 Body mass index [BMI] 45.0-49.9, adult; Z79.82 Long term (current) use of aspirin; Z79.899 Other long term (current) drug therapy; Z79.4 Long term (current) use of insulin; Z79.02 Long term (current) use of antithrombotics/antiplatelets
CPT/HCPCS: 36415; 71046; 76705; 80048; 80076; 81003; 81025; 83690; 84484; 85025; 87502; 87635; 93005; 94640; 96361; 96374; 99285; J2405

== ENCOUNTER → 2022-04-08 10:20 | Outpatient (BNVA) | payer MEDICAID, SELFPAY | PROVIDERS: PCP Family Medicine; Visit Provider Nurse Practitioner Family | DX: G47.33 Obstructive sleep apnea (adult) (pediatric) (principal); Z99.89 Dependence on other enabling machines and devices | CPT/HCPCS: 99212 ==

== ENCOUNTER → 2022-04-09 15:01 | Outpatient (BNVA) | payer MEDICAID, SELFPAY | PROVIDERS: PCP Family Medicine; Visit Provider Physician Assistant | DX: M17.12 Unilateral primary osteoarthritis, left knee (principal) | CPT/HCPCS: 20610; J7318 ==

== ENCOUNTER → 2022-05-07 12:10 | Outpatient (BNVA) | payer MEDICAID, SELFPAY | PROVIDERS: PCP Family Medicine; Visit Provider Nurse Practitioner Family | DX: M79.7 Fibromyalgia (principal); M17.0 Bilateral primary osteoarthritis of knee; M47.816 Spondylosis without myelopathy or radiculopathy, lumbar region | CPT/HCPCS: 99212 ==

== ENCOUNTER → 2022-05-12 11:14 | Outpatient (BNVA) | payer MEDICAID, SELFPAY | PROVIDERS: PCP Family Medicine; Visit Provider Physician Assistant | DX: K31.84 Gastroparesis (principal); G47.33 Obstructive sleep apnea (adult) (pediatric); Z99.89 Dependence on other enabling machines and devices | CPT/HCPCS: 99212 ==

== ENCOUNTER 2022-05-20 17:15 | Emergency (ER) | payer MEDICAID, SELFPAY ==
--- NOTE | ~2022-05-20 | XR_ITS ---
EXAMINATION: XR CHEST CLINICAL INFORMATION: Shortness of breath COMPARISON: 04/01/2022 TECHNIQUE: Frontal view of the chest was obtained. FINDINGS: Heart size within normal limits. No evidence of CHF. Left basilar atelectasis/scarring is again seen and unchanged. No consolidations, effusions or lung masses are seen. XR/XR chest 1V IMPRESSION: No acute intrathoracic disease.
[2022-05-20 17:21] VITALS: BP 141/78; PULSE 98; O2SAT 99
[2022-05-20 18:09] VITALS: BP 161/73; PULSE 97; RESP 19; TEMP 36.6; O2SAT 97; BMI 46.0
--- NOTE | 2022-05-20 18:09 | ED_ITS ---
HPI - General Adult General Chief complaint: Upper Respiratory Symptoms <JEAN-PIERRE Olivas - Last Filed: 05/20/22 18:10> Stated complaint: sob <JEAN-PIERRE Olivas - Last Filed: 05/20/22 18:10> Time Seen by Provider: 05/20/22 20:51 <JEAN-PIERRE Olivas - Last Filed: 05/20/22 18:10> Source: patient <Deonna Dumont NP - Last Filed: 05/21/22 01:45> Mode of arrival: ambulatory <Deonna Dumont NP - Last Filed: 05/21/22 01:45> Limitations: no limitations <Deonna Dumont NP - Last Filed: 05/21/22 01:45> History of Present Illness HPI narrative: 56-year-old female presents with 4 days of upper respiratory symptoms, headache, cough, body aches and shortness of breath <Deonna Dumont NP - Last Filed: 05/21/22 01:45> Onset (ago): day(s) (4) <Deonna Dumont NP - Last Filed: 05/21/22 01:45> Severity: moderate <Deonna Dumont NP - Last Filed: 05/21/22 01:45> Severity scale (1-10): 5 <Deonna Dumont NP - Last Filed: 05/21/22 01:45> Quality: aching <Deonna Dumont NP - Last Filed: 05/21/22 01:45> Pain Consistency: constant <Deonna Dumont NP - Last Filed: 05/21/22 01:45> Relieving factors: none <Deonna Dumont NP - Last Filed: 05/21/22 01:45> Exacerbating factors: movement <Deonna Dumont NP - Last Filed: 05/21/22 01:45> Associated symptoms: cough, fever/chills, headaches and shortness of breath <Deonna Dumont NP - Last Filed: 05/21/22 01:45> Treatments prior to arrival: none <Deonna Dumont NP - Last Filed: 05/21/22 01:45> Related Data Home medications: Home Medications Medication Instructions Recorded Confirmed clonidine HCl 0.1 mg tablet 0.1 mg PO BEDTIME 11/30/19 05/12/22 ferrous sulfate 325 mg (65 mg 325 mg PO Q OTHER DAY 11/30/19 05/12/22 iron) tablet rosuvastatin 20 mg tablet (Crestor) 20 mg PO DAILY 11/30/19 05/12/22 thiamine HCl (vitamin B1) 100 mg 100 mg PO DAILY 11/30/19 05/12/22 tablet aspirin 81 mg tablet,delayed 81 mg PO DAILY 01/01/21 05/12/22 release cyanocobalamin (vitamin B-12) 1,000 mcg IM [id number] 01/01/21 05/12/22 1,000 mcg/mL injection solution hydrochlorothiazide 25 mg tablet 25 mg PO DAILY 01/01/21 05/12/22 melatonin 5 mg tablet 5 - 10 mg PO BEDTIME PRN Sleep 01/01/21 05/12/22 clonazepam 1 mg tablet 1 mg PO TID PRN Anxiety 05/07/21 05/12/22 omeprazole 20 mg capsule,delayed 20 mg PO DAILY@0630 05/07/21 05/12/22 release valsartan 160 mg tablet 160 mg PO DAILY 05/07/21 05/12/22 cholecalciferol (vitamin D3) 50 50 mcg PO DAILY 07/12/21 05/12/22 mcg (2,000 unit) capsule docusate sodium 100 mg capsule 100 mg PO BID 09/26/21 05/12/22 albuterol sulfate 90 mcg/actuation 2 puff inhalation Q4-6H PRN asthma 10/23/21 05/12/22 aerosol inhaler (ProAir HFA) hydroxyzine HCl 25 mg tablet 1 - 2 tab PO BEDTIME PRN Anxiety 10/23/21 05/12/22 levothyroxine 125 mcg tablet 1 tab PO DAILY@0600 10/23/21 05/12/22 nortriptyline 50 mg capsule 1 cap PO BEDTIME 10/23/21 05/12/22 albuterol sulfate 2.5 mg/3 mL mg inhalation Q4H 12/04/21 05/12/22 (0.083 %) solution for nebulization blood-glucose meter (FreeStyle 12/26/21 05/12/22 Lite Meter kit) insulin regular hum U-500 conc 500 110 unit subcut DAILY@1700 12/26/21 05/12/22 unit/mL(3 mL) subcut pen (Humulin R U-500 (Conc) Insulin Kwikpen) insulin regular hum U-500 conc 500 130 unit subcut DAILY 12/26/21 05/12/22 unit/mL(3 mL) subcut pen (Humulin R U-500 (Conc) Insulin Kwikpen) Previous Rx's Medication Instructions Recorded glucagon 3 mg/actuation nasal 3 mg intranasal ONCE unresponsive 05/30/21 spray (Baqsimi) hypoglycemia 30 days #4 ea metoclopramide HCl 5 mg tablet 5 mg PO BEDTIME #30 tabs 07/31/21 lidocaine 5 % topical patch 1 patch topical DAILY #15 ea 08/07/21 (Lidoderm) benzonatate 100 mg capsule 100 mg PO TID 7 days #21 caps 11/12/21 guaifenesin 600 mg tablet, 600 mg PO BID 7 days #14 tabs 11/12/21 extended release 12 hr (Mucinex) TRUEplus Lancets 33 gauge (lancets) #120 ea 12/13/21 sitagliptin phosphate 100 mg 100 mg PO DAILY 30 days #30 tabs 02/20/22 tablet (Januvia) furosemide 20 mg tablet 20 mg PO QAM 30 days #30 tabs 03/13/22 pen needle, diabetic 32 gauge x #100 ea 03/25/22 (BD Usha 2nd Gen Pen Needle) blood sugar diagnostic (FreeStyle #150 ea 04/17/22 Lite Strips) propranolol 80 mg tablet 80 mg PO BID 90 days #180 tabs 04/17/22 fluticasone propionate 230 2 puff inhalation Q12H 30 days #1 04/21/22 mcg-salmeterol 21 mcg/actuation ea HFA inhaler (Advair HFA) gabapentin 400 mg capsule 400 mg PO TID #270 caps 05/07/22 prednisone 10 mg tablet 40 mg PO DAILY 5 days #20 tabs 05/07/22 benzonatate 100 mg capsule 100 mg PO TID PRN cough #20 caps 05/20/22 metformin 500 mg tablet 1,000 mg PO BID 90 days #360 tabs 05/20/22 <JEAN-PIERRE Olivas - Last Filed: 05/20/22 18:10> Allergies/adverse reactions: Allergies Allergy/AdvReac Type Severity Reaction Status Date / Time No Known Allergies Allergy Verified 05/20/22 18:09 [No Known Allergies*] <JEAN-PIERRE Olivas - Last Filed: 05/20/22 18:10> Review of Systems Review of Systems: Constitutional: positive subjective Fever, positive Chills, positive fatigue, positive Malaise ENT/Mouth: positive sore throat, positive runny nose Eyes: No Discharge Cardiovascular: No Chest Pain, phos SOB Respiratory: Positive Cough, No Sputum, No Wheezing, No Dyspnea Gastrointestinal: No Nausea, No Vomiting, No Diarrhea Musculoskeletal: positive Myalgia Skin: No rash Neuro: Positive Headache <Deonna Dumont NP - Last Filed: 05/21/22 01:45> Yes all other systems are reviewed and are negative <Deonna Dumont NP - Last Filed: 05/21/22 01:45> PMFSH Past Medical History Attestation statement: The following information was validated with the patient. 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 Low back pain Lumbar spondylosis Migraine Morbid obesity Obstructive sleep apnea on CPAP Palpitations Paranoia (psychosis) Patella-femoral syndrome Patellofemoral arthritis Respiratory failure Sacroiliitis Scoliosis of thoracolumbar spine Spondylosis of lumbar region without myelopathy or radiculopathy Stress incontinence Tubular adenoma Vitamin D deficiency <JEAN-PIERRE Olivas - Last Filed: 05/20/22 18:10> Surgical History: Surgical History H/O esophagogastroduodenoscopy History of arthroscopy of right knee History of bilateral carpal tunnel release History of bladder surgery History of colonoscopy History of tubal ligation Hx of section Hx of tonsillectomy <JEAN-PIERRE Olivas - Last Filed: 05/20/22 18:10> Family History Family History: Family History Father Stomach cancer Mother Heart disease HTN (hypertension) Diabetes Son No problems noted. Paternal Aunt Stomach cancer Sister Stomach cancer Sister Uterine cancer <JEAN-PIERRE Olivas - Last Filed: 05/20/22 18:10> Social History Social History: Social History Household Members: Family Housing: Apartment Are you a primary client care specialist to a significant other at home: No Do you presently have visiting nurse or other home services: Yes ([employer]) Alcohol intake: never Patient Tobacco Use Status: Never used Tobacco Second Hand Smoke Exposure: No Advance Directives: No Advance Directives Information Provided: No service: No Current occupational status: disabled Current occupation: lt handed Sexual orientation: Straight/Heterosexual Gender identity: Female <JEAN-PIERRE Olivas - Last Filed: 05/20/22 18:10> Physical Exam ED Vital Signs: Vital Signs - 24 hr 05/20/22 18:09 Temperature 98 F Pulse Rate 97 Respiratory Rate 19 Blood Pressure 161/73 H Pulse Oximetry 97 Oxygen Delivery Method Room Air BMI result Body Mass Index 46.0 <JEAN-PIERRE Olivas - Last Filed: 05/20/22 18:10> Vital Signs - 24 hr 05/20/22 18:09 Temperature 98 F Pulse Rate 97 Respiratory Rate 19 Blood Pressure 161/73 H Pulse Oximetry 97 Oxygen Delivery Method Room Air BMI result Body Mass Index 46.0 <Deonna Dumont NP - Last Filed: 05/21/22 01:45> Appearance: Alert. Oriented X3. Mild distress. Eyes: Pupils equal, round and reactive to light. ENT: Pharynx normal. Neck: Normal inspection. Neck supple. CVS: Tachycardic heart rate and rhythm. Pulses normal. Respiratory: No respiratory distress. Lung sounds clear to auscultation all lobes. Even unlabored respirations. Skin: Skin warm and dry. Normal skin color. Normal skin turgor. Extremities: No lower extremity edema. Gait well-balanced well coordinated. Neuro: No motor deficit. No sensory deficit. Cranial nerves 2-12 intact. <Deonna Dumont NP - Last Filed: 05/21/22 01:45> Course Course Course Narrative: This is an RME: Additional HPI, ROS, PE not included below will be deferred to primary provider. 56-year-old female history of fibromyalgia, gastroparesis, DINA, hypertension, depression, anxiety, paranoia, GERD, diabetes presents to the emergency department for evaluation of fatigue, malaise, myalgias, sore throat, congestion, diffuse headache, subjective fevers and chills, shortness of breath x3 days. Started suddenly. No known sick contacts. Denies chest pain. Physical exam patient sounds congested. Neuro nonfocal. Ambulating with steady gait. Plan at this time viral testing, x-ray. <JEAN-IPERRE Olivas - Last Filed: 05/20/22 18:10> This is an RME: Additional HPI, ROS, PE not included below will be deferred to primary provider. 56-year-old female history of fibromyalgia, gastroparesis, DINA, hypertension, depression, anxiety, paranoia, GERD, diabetes presents to the emergency department for evaluation of fatigue, malaise, myalgias, sore throat, congestion, diffuse headache, subjective fevers and chills, shortness of breath x3 days. Started suddenly. No known sick contacts. Denies chest pain. Physical exam patient sounds congested. Neuro nonfocal. Ambulating with steady gait. Plan at this time viral testing, x-ray. 56-year-old female presents with 4 days of upper respiratory symptoms. Tested positive COVID-19 while in the emergency department waiting room. X-rays negative for acute findings. Patient has even unlabored respirations. Able to speak in complete sentences. O2 sat 97% on room air. Vital signs are stable and within normal limits, does have a slightly elevated heart rate consistent with viral syndrome. Patient is able to eat and drink without difficulty. Patient does understand signs and symptoms indicating worsening condition and need for emergent intervention. Supportive measures with Tylenol, Motrin, and Tessalon Perles. Patient verbalized understanding of discharge instructions. Verbalized understandings of signs and symptoms indicating need for emergent intervention. <Deonna Dumont PIPE STEM REPAIRER - Last Filed: 05/21/22 01:45> Medications Administered Discontinued Medications Generic Name Dose Route Start Last Admin Trade Name Freq PRN Reason Stop Dose Admin Albuterol Sulfate 2 puff 05/20/22 21:01 05/20/22 21:12 Albuterol Sulfate 90 Mcg 8 Gm Inhaler INHALE 05/20/22 21:02 2 puff ONCE ONE Administration Benzonatate 100 mg 05/20/22 21:02 05/20/22 21:13 Benzonatate 100 Mg Capsule PO 05/20/22 21:03 100 mg ONCE ONE Administration <JEAN-PIERRE Olivas - Last Filed: 05/20/22 18:10> Medications Administered Discontinued Medications Generic Name Dose Route Start Last Admin Trade Name Freq PRN Reason Stop Dose Admin Albuterol Sulfate 2 puff 05/20/22 21:01 05/20/22 21:12 Albuterol Sulfate 90 Mcg 8 Gm Inhaler INHALE 05/20/22 21:02 2 puff ONCE ONE Administration Benzonatate 100 mg 05/20/22 21:02 05/20/22 21:13 Benzonatate 100 Mg Capsule PO 05/20/22 21:03 100 mg ONCE ONE Administration <Deonna Dumont NP - Last Filed: 05/21/22 01:45> Medical Decision Making Differential Diagnosis Differential Diagnoses: The differential diagnosis associated with the presentation includes <Deonna Dumont PIPE STEM REPAIRER - Last Filed: 05/21/22 01:45> COVID, influenza, RSV, bronchitis, pneumonia <Deonna Dumont NP - Last Filed: 05/21/22 01:45> Lab Data MDM Lab Attestation statement: I reviewed the patient's lab results. <Deonna Dumont PIPE STEM REPAIRER - Last Filed: 05/21/22 01:45> Labs: Lab Results 05/20/22 05/20/22 Range/Units 19:14 19:14 COVID-19 (ASHLEY) Positive A (Negative) COVID-19 Clin Com See Note Influenza Type A (DRE) Negative (Negative) Influenza Type B (DRE) Negative (Negative) Influenza A & B Note See Note <JEAN-PIERRE Olivas - Last Filed: 05/20/22 18:10> Lab Results 05/20/22 05/20/22 Range/Units 19:14 19:14 COVID-19 (ASHLEY) Positive A (Negative) COVID-19 Clin Com See Note Influenza Type A (DRE) Negative (Negative) Influenza Type B (DRE) Negative (Negative) Influenza A & B Note See Note <Deonna Dumont NP - Last Filed: 05/21/22 01:45> Independent Interpretation I performed an independent interpretation of an: Plain X-Ray <Deonna Dumont NP - Last Filed: 05/21/22 01:45> Radiology Impression Discussion of test interpretation with radiology: I have reviewed the radiologist's reading. <Deonna Dumont NP - Last Filed: 05/21/22 01:45> Radiologist Impression: EXAMINATION: XR CHEST CLINICAL INFORMATION: Shortness of breath COMPARISON: 04/01/2022 TECHNIQUE: Frontal view of the chest was obtained. FINDINGS: Heart size within normal limits. No evidence of CHF. Left basilar atelectasis/scarring is again seen and unchanged. No consolidations, effusions or lung masses are seen. XR/XR chest 1V IMPRESSION: No acute intrathoracic disease. <Deonna Dumont NP - Last Filed: 05/21/22 01:45> External Record Review External record reviewed: Inpatient record, Outpatient record, Prior outpatient labs and Prior outpatient radiology <Deonna Dumont NP - Last Filed: 05/21/22 01:45> Prescription Management Tessalon, albuterol <Deonna Dumont NP - Last Filed: 05/21/22 01:45> Chronic Conditions Patient?s care impacted by: Diabetes and Hypertension <Deonna Dumont NP - Last Filed: 05/21/22 01:45> Discharge Plan Discharge Clinical Impression: COVID-19 <JEAN-PIERRE Olivas - Last Filed: 05/20/22 18:10> Patient Disposition: Home, Self-Care <JEAN-PIERRE Olivas Last Filed: 05/20/22 18:10> Instructions: Covid-19 Viral Syndrome and Novel Coronavirus (ED) Hey/Ath, COVID-19 (Coronavirus Disease 2019) (ED) <JEAN-PIERRE Olivas Last Filed: 05/20/22 18:10> Additional Instructions: You tested positive for COVID-19. Please use albuterol inhaler and albuterol nebs to help with shortness of breath. Use Tessalon Perles 100 mg every 8 hours as needed for cough. Alternate Tylenol 650 mg every 6 hours and Motrin 600 mg every 6 hours as needed for pain and fever management. Consider taking these medications 3 hours apart so you have pain and fever management every 3 hours. Write down what time you take these medications to prevent accidental overdose. Motrin is the same medication as Advil and ibuprofen. Tylenol is the same medication as acetaminophen. Drink plenty of fluids. Thank you for choosing this emergency department for evaluation. Please follow-up with primary care physician as needed. Return to the emergency department for any new, concerning, or worsening symptoms. <JEAN-PIERRE Olivas Last Filed: 05/20/22 18:10> Prescriptions: New benzonatate 100 mg capsule 100 mg PO TID PRN (Reason: cough) Qty: 20 0RF No Action Baqsimi 3 mg/actuation spray,non-aerosol 3 mg intranasal ONCE 30 Days Qty: 4 6RF Rx Instructions: [place] once for severe hypoglycemia when patient cannot self-treat with glucose. Afterwards turn on side. May repeat after 15 minutes if patient does not respond. metoclopramide HCl 5 mg tablet 5 mg PO BEDTIME Qty: 30 6RF (DME) lancets [TRUEplus Lancets] 33 gauge misc See Rx Instructions .ROUTE .MEDSUPPLY Qty: 120 11RF Rx Instructions: 4 times a day Januvia 100 mg tablet 100 mg PO DAILY 30 Days Qty: 30 6RF furosemide 20 mg tablet 20 mg PO QAM 30 Days Qty: 30 3RF (DME) pen needle, diabetic [BD Usha 2nd Gen Pen Needle] 32 gauge x 5/32 needle See Rx Instructions .MEDSUPPLY Qty: 100 11RF Rx Instructions: Twice a day propranolol 80 mg tablet 80 mg PO BID 90 Days Qty: 180 3RF (DME) FreeStyle Lite Strips Strip See Rx Instructions .MEDSUPPLY Qty: 150 5RF Rx Instructions: 5 times a day Advair HFA 230-21 mcg/actuation HFA aerosol inhaler 2 puff inhalation Q12H 30 Days Qty: 1 6RF prednisone 10 mg tablet 40 mg PO DAILY 5 Days Qty: 20 0RF metformin 500 mg tablet 1,000 mg PO BID 90 Days Qty: 360 1RF lidocaine [Lidoderm] 5 % adhesive patch,medicated 1 patch topical DAILY Qty: 15 0RF Rx Instructions: leave on most painful area for up to 12 hrs benzonatate 100 mg Capsule 100 mg PO TID 7 Days Qty: 21 0RF guaifenesin [Mucinex] 600 mg Tablet Extended Release 12hr 600 mg PO BID 7 Days Qty: 14 0RF levothyroxine 125 mcg tablet 1 tab PO DAILY@0600 hydroxyzine HCl 25 mg tablet 1 - 2 tab PO BEDTIME PRN (Reason: Anxiety) albuterol sulfate [ProAir HFA] 90 mcg/actuation HFA aerosol inhaler 2 puff inhalation Q4-6H PRN (Reason: asthma) nortriptyline 50 mg capsule 1 cap PO BEDTIME Rx Instructions: TAKE WITH 75 MG Humulin R U-500 (Conc) Kwikpen 500 unit/mL (3 mL) insulin pen 110 unit subcut DAILY@1700 Humulin R U-500 (Conc) Kwikpen 500 unit/mL (3 mL) insulin pen 130 unit subcut DAILY clonidine HCl 0.1 mg tablet 0.1 mg PO BEDTIME rosuvastatin [Crestor] 20 mg tablet 20 mg PO DAILY thiamine HCl (vitamin B1) 100 mg tablet 100 mg PO DAILY Rx Instructions: WITH MEAL ferrous sulfate 325 mg (65 mg iron) tablet 325 mg PO Q OTHER DAY clonazepam 1 mg tablet 1 mg PO TID PRN (Reason: Anxiety) valsartan 160 mg tablet 160 mg PO DAILY omeprazole 20 mg capsule,delayed release(DR/EC) 20 mg PO DAILY@0630 melatonin 5 mg tablet 5 - 10 mg PO BEDTIME PRN (Reason: Sleep) hydrochlorothiazide 25 mg tablet 25 mg PO DAILY cyanocobalamin (vitamin B-12) 1,000 mcg/mL solution 1,000 mcg IM [id number] aspirin 81 mg tablet,delayed release (DR/EC) 81 mg PO DAILY docusate sodium 100 mg capsule 100 mg PO BID cholecalciferol (vitamin D3) 50 mcg (2,000 unit) capsule 50 mcg PO DAILY (DME) blood-glucose meter [FreeStyle Lite Meter] Kit See Rx Instructions .Route Rx Instructions: As directed gabapentin 400 mg capsule 400 mg PO TID Qty: 270 1RF albuterol sulfate 2.5 mg /3 mL (0.083 %) solution for nebulization inhalation Q4H <JEAN-PIERRE Olivas - Last Filed: 05/20/22 18:10> Referrals: Jaida Martin DO [Primary Care Provider] - 2 weeks (COVID-19) <JEAN-PIERRE Olivas - Last Filed: 05/20/22 18:10> Stand Alone Forms: Work/School Release <JEAN-PIERRE Olivas - Last Filed: 05/20/22 18:10> Interventions: ED Discharge Assessment Last Done: 05/20/22 22:08 <JEAN-PIERRE Olivas - Last Filed: 05/20/22 18:10> Discharge Date/Time: 05/20/22 22:09 <JEAN-PIERRE Olivas - Last Filed: 05/20/22 18:10>
[2022-05-20 19:36] LABS: COVID-19 Test Positive (Negative); IDNOW Serial# 08D9AD1C
[2022-05-20 19:40] LABS: IDNOW Serial# BCCEAD1C; Influenza A Negative (Negative)
[2022-05-20 19:41] LABS: Influenza B2 Negative (Negative)
[2022-05-20] MEDS: Albuterol Sulfate 90 MCG 8 GM INHALER 2 PUFF INHALE (21:12)
[2022-05-20] MEDS: Benzonatate 100 MG CAPSULE PO (21:13)
== END 2022-05-20 22:09 | disposition home or self-care (01) ==
PROVIDERS: Physician Assistant; Emergency Provider Emergency Medicine; PCP Family Medicine
DX: U07.1 COVID-19 (principal); R50.9 Fever, unspecified; R51.9 Headache, unspecified; R06.02 Shortness of breath; M79.7 Fibromyalgia; I10 Essential (primary) hypertension; Z79.899 Other long term (current) drug therapy
CPT/HCPCS: 71045; 87502; 87635; 99282; 99283

== ENCOUNTER → 2022-06-05 10:31 | Outpatient (BNVA) | payer MEDICAID, SELFPAY | PROVIDERS: PCP Family Medicine; Visit Provider Internal Medicine Endocrinology, Diabetes & Metabolism | DX: E11.649 Type 2 diabetes mellitus with hypoglycemia without coma (principal) | CPT/HCPCS: 82947; 83036; 99212 ==

== ENCOUNTER → 2022-06-26 09:38 | Outpatient (BNVA) | payer MEDICAID, SELFPAY | PROVIDERS: PCP Family Medicine; Visit Provider Physician Assistant Surgical ==

== ENCOUNTER → 2022-07-02 08:13 | Outpatient (BNVA) | payer MEDICAID, SELFPAY | PROVIDERS: PCP Family Medicine; Visit Provider Surgery | DX: M47.816 Spondylosis without myelopathy or radiculopathy, lumbar region (principal); M41.9 Scoliosis, unspecified; E66.01 Morbid (severe) obesity due to excess calories; Z68.41 Body mass index [BMI] 40.0-44.9, adult; G47.33 Obstructive sleep apnea (adult) (pediatric); J98.4 Other disorders of lung; M17.12 Unilateral primary osteoarthritis, left knee; K31.84 Gastroparesis; J45.909 Unspecified asthma, uncomplicated; E03.9 Hypothyroidism, unspecified; N39.3 Stress incontinence (female) (male); F41.9 Anxiety disorder, unspecified; F32.A Depression, unspecified; E78.5 Hyperlipidemia, unspecified; I10 Essential (primary) hypertension; K21.9 Gastro-esophageal reflux disease without esophagitis; E11.21 Type 2 diabetes mellitus with diabetic nephropathy; G47.00 Insomnia, unspecified; Z99.89 Dependence on other enabling machines and devices | CPT/HCPCS: 99212 ==

== ENCOUNTER → 2022-07-10 09:51 | Outpatient (BNVA) | payer MEDICAID, SELFPAY | PROVIDERS: PCP Family Medicine; Visit Provider Internal Medicine Pulmonary Disease | DX: J45.909 Unspecified asthma, uncomplicated (principal); J98.4 Other disorders of lung; G47.33 Obstructive sleep apnea (adult) (pediatric); E66.9 Obesity, unspecified; Z68.41 Body mass index [BMI] 40.0-44.9, adult; Z99.89 Dependence on other enabling machines and devices | CPT/HCPCS: 99212 ==

== ENCOUNTER 2022-07-11 08:43 | Outpatient (REF) | payer MEDICAID, SELFPAY ==
[2022-07-11 09:09] LABS: MANUAL DIFF FLAG NO
[2022-07-11 09:20] LABS: Basophils Percent Auto 0.4 % (0-2); Eosinophils Absolute Auto 0.2 X10*3/uL (0.0-0.4); Eosinophils Percent Auto 1.4 % (0-4); Hematocrit 38.2 % (37.0-47.0); Hemoglobin 11.3 g/dl (12.0-16.0); Imm Gran Abs Auto 0.03 X10*3/uL (0.00-0.03); Imm Gran Pct Auto 0.3 % (0.0-0.4); Lymphocytes Absolute Auto 3.5 X10*3/uL (1.2-4.9); Lymphocytes Percent Auto 33.4 % (20-40); Mean Corpuscular HGB Conc 29.6 g/dl (31.0-35.0); Mean Corpuscular Hemoglobin 24.8 pg (27.0-33.0); Mean Corpuscular Volume 83.8 fL (80.0-98.0); Mean Platelet Volume 10.2 fL (9.4-12.3); Monocytes Absolute Auto 0.6 X10*3/uL (0.1-1.2); Monocytes Percent Auto 5.5 % (2-11); Neutrophils Absolute Auto 6.2 x10*3/uL (2.0-8.3); Platelet Count 280 X10*3/uL (160-400); Red Blood Count 4.56 X10*6/uL (4.20-5.50); Red Cell Distribution Width 16.4 % (11.0-16.0); White Blood Count 10.5 X10*3/uL (4.8-10.8)
[2022-07-11 09:55] LABS: Alanine Aminotransferase 17 U/L (0-31); Albumin Level 3.9 g/dL (3.5-5.0); Alkaline Phosphatase 151 U/L (39-117); Anion Gap 14 (12-20); Aspartate Amino Transferase 25 U/L (5-31); Bilirubin Total 0.5 mg/dL (0.0-1.0); Blood Urea Nitrogen 12 mg/dL (9-16); C Reactive Protein 3.09 mg/dL (< or = 0.50); Calcium 9.1 mg/dL (8.4-10.2); Carbon Dioxide 28 mmol/L (22-29); Chloride 106 mmol/L (96-108); Cholesterol 88 mg/dL; Estimated Glomerular Filt Rate > 60; Glucose Random 229 mg/dL (60-115); HDL Cholesterol 35 mg/dL; Iron 44 mcg/dL (30-160); LDL Cholesterol Calculated 36 mg/dl; Percent Iron Saturation 16 % (15-50); Potassium 3.7 mmol/L (3.3-5.1); Sodium 144 mmol/L (135-145); Total Iron Binding Capacity 275 mcg/dL (228-428); Total Protein 7.3 g/dL (6.5-8.0); Triglycerides 85 mg/dL; Unsaturated Iron Binding 231 ug/dL
[2022-07-11 10:06] LABS: Estimated Average Glucose 169 mg/dL; Hemoglobin A1c % 7.5 %
[2022-07-11 10:16] LABS: Ferritin 127 ng/mL (10-250); Insulin 19 uU/mL (2-29); TSH reflex Free T4 2.96 uIU/mL (0.32-4.0); Vitamin B12 344 pg/mL (200-900); Vitamin D 25-OH Total 40.1 ng/mL (>30)
[2022-07-14 11:03] LABS: Calcium (PTHI) 9.1 mg/dL (8.6-10.4); PTHI 97 pg/mL (16-77)
[2022-07-16 16:19] LABS: Zinc 68 mcg/dL (60-130)
[2022-07-17 22:48] LABS: Vitamin A 29 mcg/dL (38-98)
[2022-07-19 16:13] LABS: Vitamin B1 27 nmol/L (8-30)
== END 2022-07-11 08:44 | disposition home or self-care (01) ==
LOC: HO.LAB 08:43
PROVIDERS: Visit Provider Surgery
DX: N03.9 Chronic nephritic syndrome with unspecified morphologic changes (principal); E03.9 Hypothyroidism, unspecified; E11.21 Type 2 diabetes mellitus with diabetic nephropathy; E66.01 Morbid (severe) obesity due to excess calories; E78.5 Hyperlipidemia, unspecified; F32.A Depression, unspecified; F41.9 Anxiety disorder, unspecified; G47.00 Insomnia, unspecified; G47.33 Obstructive sleep apnea (adult) (pediatric); I10 Essential (primary) hypertension; J45.909 Unspecified asthma, uncomplicated; J98.4 Other disorders of lung; K21.9 Gastro-esophageal reflux disease without esophagitis; K31.84 Gastroparesis; M17.12 Unilateral primary osteoarthritis, left knee; N39.3 Stress incontinence (female) (male); Z68.42 Body mass index [BMI] 45.0-49.9, adult; Z99.89 Dependence on other enabling machines and devices
CPT/HCPCS: 36415; 80053; 80061; 82306; 82607; 82728; 82746; 83036; 83525; 83540; 83970; 84425; 84443; 84590; 84630; 85025; 86140

== ENCOUNTER 2022-07-14 08:28 | Outpatient (REF) | payer MEDICAID, SELFPAY ==
--- NOTE | ~2022-07-14 | XR_ITS ---
EXAMINATION: XR CHEST CLINICAL INFORMATION: Hyperlipidemia COMPARISON: None available. TECHNIQUE: 2 views of the chest were obtained. FINDINGS: The lungs are well-expanded with platelike atelectasis left lung base. Heart size and pulmonary vascularity is normal. No gross bony abnormality seen. XR/XR chest 2V IMPRESSION: Platelike atelectasis left lung base.
== END 2022-07-14 08:29 | disposition home or self-care (01) ==
LOC: HO.XRAY 08:28
PROVIDERS: PCP Family Medicine; Visit Provider Surgery
DX: E78.5 Hyperlipidemia, unspecified (principal); G47.33 Obstructive sleep apnea (adult) (pediatric); J98.4 Other disorders of lung; M17.12 Unilateral primary osteoarthritis, left knee; E66.01 Morbid (severe) obesity due to excess calories; J45.909 Unspecified asthma, uncomplicated; E03.9 Hypothyroidism, unspecified; N39.3 Stress incontinence (female) (male); G47.00 Insomnia, unspecified; E11.21 Type 2 diabetes mellitus with diabetic nephropathy; F32.A Depression, unspecified; F41.9 Anxiety disorder, unspecified; I10 Essential (primary) hypertension; K31.84 Gastroparesis; K21.9 Gastro-esophageal reflux disease without esophagitis; Z79.899 Other long term (current) drug therapy; Z99.89 Dependence on other enabling machines and devices; Z68.42 Body mass index [BMI] 45.0-49.9, adult
CPT/HCPCS: 71046; 99211; 99212

== ENCOUNTER 2022-07-15 19:35 | Outpatient (REF) | payer MEDICAID, SELFPAY ==
[2022-07-16 13:24] LABS: H Pylori Breath Test Negative (Negative)
== END 2022-07-15 19:36 | disposition home or self-care (01) ==
LOC: HO.LNP 19:35
PROVIDERS: Visit Provider Surgery
DX: E66.01 Morbid (severe) obesity due to excess calories (principal); K21.9 Gastro-esophageal reflux disease without esophagitis
CPT/HCPCS: 83013

== ENCOUNTER → 2022-07-16 08:28 | Outpatient (BNVA) | payer MEDICAID, SELFPAY | PROVIDERS: PCP Family Medicine; Visit Provider Dietitian, Registered | DX: E66.01 Morbid (severe) obesity due to excess calories (principal); E11.649 Type 2 diabetes mellitus with hypoglycemia without coma; Z68.42 Body mass index [BMI] 45.0-49.9, adult | CPT/HCPCS: 97802 ==

== ENCOUNTER 2022-07-18 07:26 | Day surgery (SDC) | payer MEDICAID, SELFPAY ==
[2022-07-16 14:48] VITALS: BMI 43.8
--- NOTE | 2022-07-17 09:35 | P.CONAN_ITS ---
Documented by User: Mala De La Paz NP 07/17/22 09:42 HPI - Anesthesia Eval Consult details Narrative: 57yo F for Bilateral Therapeutic Medial Branch Block L3-L4-L5 Pulmo office visit 07/10/22 with improving control of asthma s/p same 12/2021 with TIVA PMFSH Active Problems Active Problems: All Active Problems (Updated 07/16/22 @ 14:22 by Kasey Vanessa PA-C) Primary osteoarthritis of left knee (Acute ~12/07/19) Pelvic pain (Acute) Fibromyalgia (Acute) Spondylosis of lumbar region without myelopathy or radiculopathy (Acute) Gastroparesis (Acute) Obesity due to excess calories (Acute) SOB (shortness of breath) on exertion (Acute) Lumbosacral spondylosis with radiculopathy (Acute) Lumbar facet arthropathy (Acute) Sacroiliac joint dysfunction (Acute) Morbid obesity with BMI of 45.0-49.9, adult (Acute) Muscle spasm of back (Acute) Abnormal nuclear cardiac imaging test (Acute) Acute respiratory failure with hypoxia (Acute) Patellofemoral arthritis of right knee (Acute) Restrictive lung disease (Acute) DINA on CPAP (Acute) COVID-19 (Acute) Hyperlipidemia (Acute) Obstructive sleep apnea on CPAP (Acute) Asthma (Acute) Hypothyroidism (Acute) Paranoia (psychosis) (Acute) Stress incontinence (Acute) Insomnia (Acute) Anxiety (Acute) Depression (Acute) Dyslipidemia (Acute) HTN (hypertension) (Acute) Scoliosis of thoracolumbar spine (Acute) Morbid obesity (Acute) Chronic pain syndrome (Acute) Sacroiliitis (Acute) Spondylosis of lumbar region without myelopathy or radiculopathy (Acute) Inappropriate sinus tachycardia (Acute) GERD (gastroesophageal reflux disease) (Acute) Diabetic nephropathy associated with type 2 diabetes mellitus (Acute) 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 due to insulin (Acute) shelter (current) use of insulin (Acute) Gastroparesis (Acute) 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, uncontrolled (Acute) Past Medical History Medical History Anemia Anxiety Asthma Bilateral pneumonia Chest pain Chronic pain syndrome Dental crowns present Depression 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, uncontrolled Diabetic nephropathy associated with type 2 diabetes mellitus Dyslipidemia Family history of colon cancer Fibromyalgia Gastroparesis Genu valgum GERD (gastroesophageal reflux disease) Hemorrhoids HTN (hypertension) Hyperlipidemia 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 due to insulin Hypothyroidism Inappropriate sinus tachycardia Insomnia shelter (current) use of insulin Low back pain Lumbar spondylosis Migraine Morbid obesity Obstructive sleep apnea on CPAP Palpitations Paranoia (psychosis) Patella-femoral syndrome Patellofemoral arthritis Respiratory failure Sacroiliitis Scoliosis of thoracolumbar spine Spondylosis of lumbar region without myelopathy or radiculopathy Stress incontinence Tubular adenoma Vitamin D deficiency Family History Family History Father Stomach cancer Mother Heart disease HTN (hypertension) Diabetes Son No problems noted. Paternal Aunt Stomach cancer Sister Stomach cancer Sister Uterine cancer Family history of problems with anesthesia: No Surgical History Surgical History H/O esophagogastroduodenoscopy History of arthroscopy of right knee History of bilateral carpal tunnel release History of bladder surgery History of colonoscopy History of surgery History of tubal ligation Hx of section Hx of tonsillectomy History of Problems with Anesthesia: No Social History Social History Household Members: Family Housing: Apartment Are you a primary geriatric personal care aide to a significant other at home: No Do you presently have visiting nurse or other home services: Yes (PHYSICIAN'S AIDE) Alcohol intake: never Patient Tobacco Use Status: Never used Tobacco Second Hand Smoke Exposure: No service: No Current occupational status: disabled Current occupation: lt handed Sexual orientation: Straight/Heterosexual Gender identity: Female Meds Allergies Allergy/AdvReac Type Severity Reaction Status Date / Time No Known Allergies Allergy Verified 07/14/22 10:05 [No Known Allergies*] Home Medications Medication Instructions Recorded Confirmed Last Taken Type clonidine HCl 0.1 mg tablet 0.1 mg PO BEDTIME 11/30/19 07/16/22 11/09/21 History ferrous sulfate 325 mg (65 mg 325 mg PO Q OTHER DAY 11/30/19 07/16/22 07/04/22 History iron) tablet rosuvastatin 20 mg tablet (Crestor) 20 mg PO DAILY 11/30/19 07/16/22 11/10/21 History thiamine HCl (vitamin B1) 100 mg 100 mg PO DAILY 11/30/19 07/16/22 11/10/21 H istory tablet aspirin 81 mg tablet,delayed 81 mg PO DAILY 01/01/21 07/16/22 07/04/22 History release cyanocobalamin (vitamin B-12) 1,000 mcg IM [id number] 01/01/21 07/16/22 Unknown History 1,000 mcg/mL injection solution hydrochlorothiazide 25 mg tablet 25 mg PO DAILY 01/01/21 07/16/22 11/10/21 History melatonin 5 mg tablet 5 - 10 mg PO BEDTIME PRN Sleep 01/01/21 07/16/22 11/09/21 History clonazepam 1 mg tablet 1 mg PO TID PRN Anxiety 05/07/21 07/16/22 01/09/22 06:00 History omeprazole 20 mg capsule,delayed 20 mg PO DAILY@0630 05/07/21 07/16/22 01/09/22 06:00 History release valsartan 160 mg tablet 160 mg PO DAILY 05/07/21 07/16/22 11/10/21 History cholecalciferol (vitamin D3) 50 50 mcg PO DAILY 07/12/21 07/16/22 11/10/21 History mcg (2,000 unit) capsule docusate sodium 100 mg capsule 100 mg PO BID 09/26/21 07/16/22 11/10/21 History albuterol sulfate 90 mcg/actuation 2 puff inhalation Q4-6H PRN asthma 10/23/21 07/16/22 11/10/21 History aerosol inhaler (ProAir HFA) hydroxyzine HCl 25 mg tablet 1 - 2 tab PO BEDTIME PRN Anxiety 10/23/21 07/16/22 11/09/21 History levothyroxine 125 mcg tablet 1 tab PO DAILY@0600 10/23/21 07/16/22 01/09/22 06:00 History nortriptyline 50 mg capsule 1 cap PO BEDTIME 10/23/21 07/16/22 11/09/21 History albuterol sulfate 2.5 mg/3 mL 2.5 mg inhalation Q4H PRN Wheezing 12/04/21 07/16/22 Unknown History (0.083 %) solution for nebulization Exam Exam Date and Time: July 17, 2022 0935 Height,Weight and Vital Signs: Height 5 ft 4 in Weight 115.666 kg Pertinent Lab Results Pertinent Lab Results: Laboratory Tests 07/11/22 07/11/22 09:05 09:05 WBC 10.5 Hgb 11.3 L Hct 38.2 Plt Count 280 Sodium 144 Potassium 3.7 Chloride 106 Carbon Dioxide 28 BUN 12 Creatinine 0.64 Narrative Narrative: EKG 03/2022 Vent. Rate : 085 BPM ? ? Atrial Rate : 085 BPM ?? P-R Int : 126 ms? QRS Dur : 104 ms ? ? QT Int : 402 ms ? ? ? P-R-T Axes : 046 030 048 degrees ?? QTc Int : 478 ms ? Normal sinus rhythm Minimal voltage criteria for LVH, may be normal variant ( Richie product ) Borderline ECG When compared with ECG of 13-MAR-2022 05:13, Nonspecific T wave abnormality no longer evident in Lateral leads Per 08/2021 cardiology visit: echocardiogram on 05/08/2021 showing normal EF, grade 1 diastolic dysfunction, mild MR.? She did a nuclear stress test done 06/06/2021 which showed possible ischemia in the circumflex/diagonal territory, EF 69%.? She then underwent a CTA of the coronary arteries on 09/13/2021 showing no coronary calcifications, left main patent, lad proximal patent, mid LAD bridging, distal LAD not well seen, left circumflex proximal patent, mid probably patent, distal not well seen, RCA probably patent. Assessment and Plan Assessment Anesthesia Assessment: Chart Reviewed Final Anesthetic Review Family History of Problems with Anesthesia: No History of Problems with Anesthesia: No Documented by User: Joie Jimenez MD 07/18/22 09:48 [facility] Active Problems Active Problems: All Active Problems (Updated 07/18/22 @ 08:35 by Joie Godfrey MD) Primary osteoarthritis of left knee (Acute ~12/07/19) Pelvic pain (Acute) Fibromyalgia (Acute) Spondylosis of lumbar region without myelopathy or radiculopathy (Acute) Gastroparesis (Acute) SOB (shortness of breath) on exertion (Acute) Lumbosacral spondylosis with radiculopathy (Acute) Lumbar facet arthropathy (Acute) Sacroiliac joint dysfunction (Acute) Morbid obesity with BMI of 45.0-49.9, adult (Acute) Muscle spasm of back (Acute) Abnormal nuclear cardiac imaging test (Acute) Acute respiratory failure with hypoxia (Acute) Patellofemoral arthritis of right knee (Acute) Restrictive lung disease (Acute) Obstructive sleep apnea on CPAP (Acute) Asthma (Acute). Stable. Inhaler prn Hypothyroidism (Acute) Paranoia (psychosis) (Acute) Stress incontinence (Acute) Insomnia (Acute) Anxiety (Acute) Depression (Acute) Dyslipidemia (Acute) HTN (hypertension) (Acute) Scoliosis of thoracolumbar spine (Acute) Chronic pain syndrome (Acute) Sacroiliitis (Acute) Spondylosis of lumbar region without myelopathy or radiculopathy (Acute) Inappropriate sinus tachycardia (Acute) GERD (gastroesophageal reflux disease) (Acute) Diabetic nephropathy associated with type 2 diabetes mellitus (Acute) 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 due to insulin (Acute) terminal gauger (current) use of insulin (Acute) 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 Past Medical History Medical History Anemia Anxiety Asthma Bilateral pneumonia Chest pain Chronic pain syndrome Dental crowns present Depression 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, uncontrolled Diabetic nephropathy associated with type 2 diabetes mellitus Dyslipidemia Family history of colon cancer Fibromyalgia Gastroparesis Genu valgum GERD (gastroesophageal reflux disease) Hemorrhoids HTN (hypertension) Hyperlipidemia 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 due to insulin Hypothyroidism Inappropriate sinus tachycardia Insomnia shelter (current) use of insulin Low back pain Lumbar spondylosis Migraine Morbid obesity Obstructive sleep apnea on CPAP Palpitations Paranoia (psychosis) Patella-femoral syndrome Patellofemoral arthritis Respiratory failure Sacroiliitis Scoliosis of thoracolumbar spine Spondylosis of lumbar region without myelopathy or radiculopathy Stress incontinence Tubular adenoma Vitamin D deficiency Family History Family History Father Stomach cancer Mother Heart disease HTN (hypertension) Diabetes Son No problems noted. Paternal Aunt Stomach cancer Sister Stomach cancer Sister Uterine cancer Surgical History Surgical History H/O esophagogastroduodenoscopy History of arthroscopy of right knee History of bilateral carpal tunnel release History of bladder surgery History of colonoscopy History of surgery History of tubal ligation Hx of section Hx of tonsillectomy Social History Social History Household Members: Family Housing: Apartment Are you a primary geriatric personal care aide to a significant other at home: No Do you presently have visiting nurse or other home services: Yes (PHYSICIAN'S AIDE) Alcohol intake: never Patient Tobacco Use Status: Never used Tobacco Second Hand Smoke Exposure: No service: No Current occupational status: disabled Current occupation: lt handed Sexual orientation: Straight/Heterosexual Gender identity: Female Meds Allergies Allergy/AdvReac Type Severity Reaction Status Date / Time No Known Allergies Allergy Verified 07/14/22 10:05 [No Known Allergies*] Home Medications Medication Instructions Recorded Confirmed Last Taken Type clonidine HCl 0.1 mg tablet 0.1 mg PO BEDTIME 11/30/19 07/16/22 11/09/21 History ferrous sulfate 325 mg (65 mg 325 mg PO Q OTHER DAY 11/30/19 07/16/22 07/04/22 History iron) tablet rosuvastatin 20 mg tablet (Crestor) 20 mg PO DAILY 11/30/19 07/16/22 11/10/21 History thiamine HCl (vitamin B1) 100 mg 100 mg PO DAILY 11/30/19 07/16/22 11/10/21 History tablet aspirin 81 mg tablet,delayed 81 mg PO DAILY 01/01/21 07/16/22 07/04/22 History release cyanocobalamin (vitamin B-12) 1,000 mcg IM [id number] 01/01/21 07/16/22 Unknown History 1,000 mcg/mL injection solution hydrochlorothiazide 25 mg tablet 25 mg PO DAILY 01/01/21 07/16/22 11/10/21 History melatonin 5 mg tablet 5 - 10 mg PO BEDTIME PRN Sleep 01/01/21 07/16/22 11/09/21 History clonazepam 1 mg tablet 1 mg PO TID PRN Anxiety 05/07/21 07/16/22 01/09/22 06:00 History omeprazole 20 mg capsule,delayed 20 mg PO DAILY@0630 05/07/21 07/16/22 01/09/22 06:00 History release valsartan 160 mg tablet 160 mg PO DAILY 03/10/2107/16/22 11/10/21 History cholecalciferol (vitamin D3) 50 50 mcg PO DAILY 07/12/21 07/16/22 11/10/21 History mcg (2,000 unit) capsule docusate sodium 100 mg capsule 100 mg PO BID 09/26/21 07/16/22 11/10/21 History albuterol sulfate 90 mcg/actuation 2 puff inhalation Q4-6H PRN asthma 10/23/21 07/16/22 11/10/21 History aerosol inhaler (ProAir HFA) hydroxyzine HCl 25 mg tablet 1 - 2 tab PO BEDTIME PRN Anxiety 10/23/21 07/16/22 11/09/21 History levothyroxine 125 mcg tablet 1 tab PO DAILY@0600 10/23/21 07/16/22 01/09/22 06:00 History nortriptyline 50 mg capsule 1 cap PO BEDTIME 10/23/21 07/16/22 11/09/21 History albuterol sulfate 2.5 mg/3 mL 2.5 mg inhalation Q4H PRN Wheezing 12/04/21 07/16/22 Unknown History (0.083 %) solution for nebulization Exam Height,Weight and Vital Signs: Height 5 ft 4 in Weight 115.666 kg Vital Signs Temp Pulse Resp BP Pulse Ox O2 Del Method 97.9 F 88 17 161/83 H 96 Room Air 07/18/22 07:30 07/18/22 07:30 07/18/22 07:30 07/18/22 07:30 07/18/22 07:30 07/18/22 07:30 Airway Mallampati Class: III TM Dist: >3cm Neck ROM: Full Loose/Missing/Broken Teeth: Yes (Missing molars. Denies broken or loose teeth) Heart: RRR Lungs: CTAB Assessment and Plan Assessment Anesthesia Assessment: Anesthesia Plan Discussed Final Anesthetic Review NPO: Yes ASA Class: III Final Preanesthetic Review: No Changes in Pt Med Stat, Meds/Allgs Chart Reviewed, Consent Obtained/Reviewed and Anes Risks/Benef Reviewed Patient Risk: Intermediate Procedure Risk: Low Assessment/Block/Sedation in SS: Assess/Block/Sedation-SS Anesthetic Plan Anesthetic Plan: MAC: Disposition: Standard PACU
--- NOTE | ~2022-07-18 | FL_ITS ---
EXAMINATION: XR FLUOROSCOPY WITH IMAGES CLINICAL INFORMATION: Pain. COMPARISON: None available. TECHNIQUE: Fluoroscopy Supervised By: DR Juan Carlos Taylor. Fluoroscopy Time: 0.7 minutes Cumulative Dose: 57.1 mGy. DAP: 15.1 Gycm2. Images: 6). FINDINGS: There are needles positioned on either side of S1, L5 and L4 pedicles with contrast opacifying the soft tissues. Visualized bones are grossly unremarkable. There is loss of L5-S1 disc height. FL/FL guidance in OR IMPRESSION: Fluoroscopy was provided to referring physician for pain management.
[2022-07-18 07:30] VITALS: BP 161/83; PULSE 88; RESP 17; TEMP 36.6; O2SAT 96
[2022-07-18 08:04] LABS: Glucose, Whole Blood 156 mg/dL (60-115)
--- NOTE | 2022-07-18 08:09 | MHC.SHP ---
Pre-Procedural Eval Section A Date of Service: 07/18/22 The patient is an INPATIENT: No Changes since office visit: Yes Patient answered all questions The History & Physical has been completed within 30 days and I have reviewed it.: No Section B Chief Complaint: Spondylosis without myelopathy or radiculopathy, Details of Present Illness: spondylosis without myelopathy or radiculopathy Medical History: No relevant PMH History of Previous Operations: No relevant previous surgery Allergies: Allergies Allergy/AdvReac Type Severity Reaction Status Date / Time No Known Allergies Allergy Verified 07/14/22 10:05 [No Known Allergies*] Review of Systems Sugical H&P ROS: Negative: Cardiovascular, Respiratory, Neurological, Psychiatric, Hem-Onc, Allergic/Immunologic, Gastrointestinal, Genitourinary, Integumentary, Endocrine and Eyes/Ears/Nose/Throat and Yes, Specify: Constitution (morbid obesity) and Musculoskeletal (as above) Exam Surgical H&P Exam: Normal: HEENT, Normal: Heart, Normal: Lungs, Normal: Extremities, Normal: Skin and Normal: Neurological and Significant Findings: Abdomen (enlarged due to i/a & s/q fat) Plan Diagnosis/Plan: Unchanged I have reviewed the history and physical and performed a pertinent physical examination on my patient. No changes have occurred unless specified. Time Spent With Patient Time: Total time managing care of this patient today ____ minutes.
--- NOTE | 2022-07-18 08:36 | W.PM.OPN ---
Operative Note Operative Note Date of Service: 07/18/22 Narrative: Bilateral therapeutic Medial branch block L3- L4- L5. Informed consent was explained to the patient. All questions were explained and answered. The patient was taken inside the operating room where she was positioned prone on the operating table. ASA monitors were applied and the patient was sedated. Time-out was performed delineating correct site, side, the nature of the procedure, patient's allergy, preoperative antibiotic if needed. All operating room staff was participating in OR time-out procedure. The lower back was prepped with ChloraPrep and draped with sterile towels. Sterilely draped C-arm was brought over the operating field and square picture of L4-and L5 vertebra and S1 AREA were delineated on the screen. Point of interest were delineated as connection of superior articular process of L4 and L5 vertebra bilaterally with corresponding transverse processes, as well as connection of the sacral alae bilaterally with superior articular process of S1. The projections of the point of interest to the skin were injected with the small amount of local anesthetic lidocaine 2% 1-1.5 cc. After that 22 gauge 5 inch QP spinal needles were driven to the point of interest in tunnel vision fashion. After needles gently contacted the bone at the point of interests the needle was injected with small amount of bupivacaine 0.5%-1cc mixad with kenalog. Total dose of kenalog was 80 mg.. Upon completion of the injections needles were removed and sterile dressings were applied patient was awaken and taken outside of the operating room to recovery room where the patient recovered uneventfully. The patient went home without immediate complications.
[2022-07-18 09:35] VITALS: BP 140/83; PULSE 90; RESP 25; TEMP 36.9; O2SAT 95
--- NOTE | 2022-07-18 09:38 | P.BOP_ITS ---
Brief Operative Note Date of Service: 07/18/22 Pre-op diagnosis: spondylosis lumbar without myelo or radiculopathy Post-op diagnosis: same Procedure: MBB lumbar L3- L4- L5 B/l Therapeutic. Implants: none Surgeon: Juan Carlos Taylor MD Anesthesia: MAC Was an Television Picture Tube Rebuilder used for this Procedure?: No Estimated blood loss (mL): 1 Pathology: none sent Condition: stable Disposition: PACU
[2022-07-18 09:50] VITALS: BP 128/70; PULSE 87; RESP 24; O2SAT 93
[2022-07-18] MEDS: Acetaminophen 325 MG TABLET 650 MG PO (10:04)
[2022-07-18 10:05] VITALS: BP 146/88; PULSE 90; RESP 22; TEMP 36.8; O2SAT 94
== END 2022-07-18 10:40 | disposition home or self-care (01) ==
PROVIDERS: PCP Family Medicine; Visit Provider Anesthesiology
PROC: (CPT 64493; principal; 2022-07-18 09:00)
DX: M47.816 Spondylosis without myelopathy or radiculopathy, lumbar region (principal); G89.4 Chronic pain syndrome; M54.50 Low back pain, unspecified; M46.1 Sacroiliitis, not elsewhere classified; M79.7 Fibromyalgia; M41.9 Scoliosis, unspecified; G43.909 Migraine, unspecified, not intractable, without status migrainosus; D64.9 Anemia, unspecified; I10 Essential (primary) hypertension; G47.33 Obstructive sleep apnea (adult) (pediatric); E78.5 Hyperlipidemia, unspecified; J45.909 Unspecified asthma, uncomplicated; E66.01 Morbid (severe) obesity due to excess calories; Z68.41 Body mass index [BMI] 40.0-44.9, adult; E11.21 Type 2 diabetes mellitus with diabetic nephropathy; Z79.4 Long term (current) use of insulin; Z99.89 Dependence on other enabling machines and devices; Z79.82 Long term (current) use of aspirin; Z79.899 Other long term (current) drug therapy; Z98.890 Other specified postprocedural states
CPT/HCPCS: 64493; 64494; 82947; J2795; J3301; Q9965

== ENCOUNTER 2022-07-22 08:27 | Outpatient (REF) | payer MEDICAID, SELFPAY ==
--- NOTE | ~2022-07-22 | US_ITS ---
EXAMINATION: US COMPLETE ABDOMEN WITH LIVER ELASTOGRAPHY CLINICAL INFORMATION: Hyperlipidemia. Obesity. COMPARISON: 04/01/2022 TECHNIQUE: Real-time imaging of the abdominal viscera. Noninvasive ultrasound liver fibrosis assessment is performed using Char ElastPQ point quantification shear wave elastography (2D-SWE) with a C5-2 MHz transducer. Multiple elastography samples are obtained. FINDINGS: PANCREAS: The visualized portion appears normal. Portions of the head and tail are obscured by gas. ABDOMINAL AORTA: The proximal, middle, and distal aortic segments are normal in caliber. INFERIOR VENA CAVA: Visualized portions are normal. LIVER: The liver is enlarged with normal contour and increased echogenicity. No focal lesion or intrahepatic biliary duct dilatation. The right lobe measures 23.7 cm in length. The left lobe measures 11.4 cm in length. Portal flow is towards the liver (hepatopetal). Shear wave liver elastography median stiffness is 1.64 m/s (reference: normal median stiffness is 1.3 m/s or less). IQR/median stiffness to assess sampling precision is 0.12 (reference: good quality data set is IQR/median stiffness of 0.15 or less). GALLBLADDER: Normal. The gallbladder is physiologically distended without evidence of stones, sludge, polyps, wall thickening or pericholecystic fluid. COMMON BILE DUCT: Normal in caliber measuring 0.3 cm in diameter. RIGHT KIDNEY: Normal. No hydronephrosis. No renal calculi or focal parenchymal lesions. The kidney measures 12.7 cm in maximum dimension. LEFT KIDNEY: Normal. No hydronephrosis. No renal calculi or focal parenchymal lesions. The kidney measures 13.6 cm in maximum dimension. SPLEEN: Normal. The spleen measures 12.1 cm in maximum dimension. FREE FLUID: None. US/US abdomen comp w elastography IMPRESSION: 1. Hepatomegaly with hepatic steatosis. 2. Liver elastography: In the absence of other known clinical signs, measurements rule out compensated advanced chronic liver disease. If there are known clinical signs, further testing may be needed for confirmation. Liver stiffness measurement is without significant change from prior exam (change under 10%). REFERENCE: Society of Radiologists in Ultrasound Liver Stiffness Thresholds (2020): LIVER STIFFNESS THRESHOLDS: *Liver Stiffness equal or less than 1.3 m/s: High probability of being normal. *Liver Stiffness less than 1.7 m/s: In the absence of other known clinical signs, rules out compensated advanced chronic liver disease. *Liver Stiffness 1.7-2.1 m/s: Suggestive of compensated advanced chronic liver disease but need further test for confirmation. *Liver Stiffness over 2.1 m/s: Rules in compensated advanced chronic liver disease. *Liver Stiffness over 2.4 m/s: Suggestive of clinically significant portal hypertension. QUALITY OF DATA SET: *IQR/Median value equal or less than 0.15 implies a quality data set. *IQR/Median value over 0.15 implies a poor quality data set. SIGNIFICANT CHANGE FROM PRIOR EXAM: Significant change if liver stiffness measurement is 10% or greater from prior exam. OTHER CONSIDERATIONS: The stage of liver fibrosis may be overestimated in the setting of acute hepatitis, liver inflammation, elevated liver function tests, hepatic vascular congestion, obstructive cholestasis, non-fasting state, and infiltrative diseases such as amyloidosis and lymphoma. In some patients with NAFLD, the liver stiffness thresholds for compensated advanced chronic liver disease may be lower. In causes other than viral hepatitis and NAFLD, liver stiffness thresholds are not well established.
== END 2022-07-22 08:28 | disposition home or self-care (01) ==
LOC: HO.US 08:27
PROVIDERS: PCP Family Medicine; Visit Provider Surgery
DX: Z01.818 Encounter for other preprocedural examination (principal); E03.9 Hypothyroidism, unspecified; E11.21 Type 2 diabetes mellitus with diabetic nephropathy; E66.01 Morbid (severe) obesity due to excess calories; E78.5 Hyperlipidemia, unspecified; F32.A Depression, unspecified; F41.9 Anxiety disorder, unspecified; G47.00 Insomnia, unspecified; G47.33 Obstructive sleep apnea (adult) (pediatric); I10 Essential (primary) hypertension; J45.909 Unspecified asthma, uncomplicated; J98.4 Other disorders of lung; K21.9 Gastro-esophageal reflux disease without esophagitis; K31.84 Gastroparesis; M17.12 Unilateral primary osteoarthritis, left knee; N39.3 Stress incontinence (female) (male); Z68.42 Body mass index [BMI] 45.0-49.9, adult; Z99.89 Dependence on other enabling machines and devices
CPT/HCPCS: 76705; 76981

== ENCOUNTER → 2022-07-22 09:09 | Outpatient (REF) | payer MEDICAID, SELFPAY ==
--- NOTE | ~2022-07-22 | NM_ITS ---
Myocardial perfusion study Indication: Shortness of breath to evaluate for myocardial ischemia Technique: The patient was brought in for a Lexiscan perfusion study on 07/22/2022. Patient performed low-level exercise and was injected 0.4 mg of Lexiscan intravenously. Within a minute of injection, 40 mCi of sestamibi was given intravenously. Images were obtained using the SPECT gamma camera interlaced with the gating device. Images were obtained in supine position. Resting perfusion study was performed on 07/23/2022. Patient was administered 40 mCi of sestamibi intravenously at rest. Images were then obtained in supine position. Images obtained with and without CT attenuation. Total DLP 141 mGy-cm. Images were processed with the software and compared side to side in short axis, horizontal long axis and vertical long axis views. Findings: The stress perfusion study showed non attenuated images show mildly reduced uptake in the inferior and inferoseptal wall of the LV myocardium. Attenuation corrected images show mildly reduced uptake in the distal anterior and apical. The gated study shows normal LV systolic function with calculated LVEF of 65%. LV cavity is normal size. The gated study shows normal wall thickening and contraction of segments. Resting study shows no change in perfusion pattern compared to stress perfusion study. Gating at rest reveals normal systolic wall motion with ejection fraction at 57%. The findings are consistent with no clear reversible defect suggestive of ischemia. Fixed defect likely due to soft tissue attenuation.. NM/NM delaney perf SPECT rest & str Impression: 1. Myocardial perfusion imaging study shows normal myocardial perfusion 2. Gated LVEF is 55% 3. Transient ischemic dilatation not present EKG is nondiagnostic for ischemia
--- NOTE | 2022-07-22 09:12 | CA_ITS ---
Acquisition Time: 2022-07-22 09:49:49 Total Exercise Time: 00:02:00 Test Indications: E78.5, G47.43, Z99.89 Medications: SEE H Protocol: LEXISCAN Max HR: 100 BPM 60% of Pred: 165 BPM Max BP: 132/078 mmHG Max Work Load: 1.0 METS Pharmacological stress test with Lexiscan injection while sitting and kicking her legs, without anginal symptoms, without arrhythmiass, with normotensive response to injection, with nondiagnostic EKG for ischemia. Nuclear images pending. Test reviewed with Dr. Aviles. Referred By: Francesco James Overread By: NORMAN REYNA
== END ==
LOC: HO.CARD 09:09
PROVIDERS: PCP Family Medicine; Visit Provider Surgery
DX: Z01.818 Encounter for other preprocedural examination (principal); E03.9 Hypothyroidism, unspecified; E11.21 Type 2 diabetes mellitus with diabetic nephropathy; E66.01 Morbid (severe) obesity due to excess calories; E78.5 Hyperlipidemia, unspecified; F32.A Depression, unspecified; F41.9 Anxiety disorder, unspecified; G47.00 Insomnia, unspecified; G47.33 Obstructive sleep apnea (adult) (pediatric); I10 Essential (primary) hypertension; J45.909 Unspecified asthma, uncomplicated; J98.4 Other disorders of lung; K21.9 Gastro-esophageal reflux disease without esophagitis; K31.84 Gastroparesis; M17.12 Unilateral primary osteoarthritis, left knee; N39.3 Stress incontinence (female) (male); Z68.42 Body mass index [BMI] 45.0-49.9, adult; Z99.89 Dependence on other enabling machines and devices
CPT/HCPCS: 78452; 93017; A9500; J0280; J2785

== ENCOUNTER 2022-07-29 09:17 | Outpatient (REF) | payer MEDICAID, SELFPAY ==
--- NOTE | ~2022-07-29 | MM_ITS ---
EXAMINATION: MM SCREENING DIGITAL BREAST TOMOSYNTHESIS, BILATERAL CLINICAL INFORMATION: Screening. Asymptomatic. The lifetime risk of breast cancer based on the Tyrer-Cuzick Model is 11%. COMPARISON: Mammography: 06/12/2021, 05/09/2020, 11/16/2018 TECHNIQUE: Digital breast tomosynthesis is performed in both the craniocaudal and mediolateral oblique views along with computer-aided detection (CAD). Synthesized 2D images are generated from the tomosynthesis. FINDINGS: There are scattered areas of fibroglandular density (ACR BI-RADS breast composition Category b). There are no significant masses, abnormal calcifications, or other abnormalities. Parenchymal pattern is similar to prior studies. There is no developing density or architectural abnormality. The axilla and skin contours are unremarkable. No significant changes. MM/MM tomosynthesis screening BI IMPRESSION: No mammographic evidence of malignancy. ASSESSMENT: BI-RADS 1: Negative RECOMMENDATION: Routine annual mammography screening. This patient's information was entered into a reminder system with a target due date for their next mammogram.
== END 2022-07-29 09:18 | disposition home or self-care (01) ==
LOC: HO.MAMMO 09:17
PROVIDERS: PCP Family Medicine; Visit Provider Family Medicine
DX: Z12.31 Encounter for screening mammogram for malignant neoplasm of breast (principal)
CPT/HCPCS: 77063; 77067

== ENCOUNTER → 2022-08-01 10:26 | Outpatient (BNVA) | payer OTHER, MEDICAID, SELFPAY | PROVIDERS: PCP Family Medicine; Visit Provider Counselor Mental Health ==

== ENCOUNTER → 2022-08-04 08:49 | Outpatient (BNVA) | payer MEDICAID, SELFPAY | PROVIDERS: PCP Family Medicine; Visit Provider Surgery | DX: E66.01 Morbid (severe) obesity due to excess calories (principal); I10 Essential (primary) hypertension; E11.649 Type 2 diabetes mellitus with hypoglycemia without coma; Z68.41 Body mass index [BMI] 40.0-44.9, adult | CPT/HCPCS: 99212 ==

== ENCOUNTER → 2022-08-06 10:49 | Outpatient (BNVA) | payer MEDICAID, SELFPAY | PROVIDERS: PCP Family Medicine; Visit Provider Surgery | DX: K64.8 Other hemorrhoids (principal); K64.4 Residual hemorrhoidal skin tags | CPT/HCPCS: 46600; 99202 ==

== ENCOUNTER → 2022-08-19 09:33 | Outpatient (BNVA) | payer MEDICAID, SELFPAY | PROVIDERS: PCP Family Medicine; Visit Provider Dietitian, Registered | DX: E66.01 Morbid (severe) obesity due to excess calories (principal); E11.9 Type 2 diabetes mellitus without complications; Z71.3 Dietary counseling and surveillance | CPT/HCPCS: 97803 ==

== ENCOUNTER → 2022-08-27 11:24 | Outpatient (BNVA) | payer MEDICAID, SELFPAY | PROVIDERS: PCP Family Medicine; Visit Provider Anesthesiology | DX: E66.01 Morbid (severe) obesity due to excess calories (principal); M41.9 Scoliosis, unspecified; M47.816 Spondylosis without myelopathy or radiculopathy, lumbar region; Z68.41 Body mass index [BMI] 40.0-44.9, adult | CPT/HCPCS: 99212 ==

== ENCOUNTER → 2022-08-28 08:29 | Outpatient (BNVA) | payer MEDICAID, SELFPAY | PROVIDERS: PCP Family Medicine; Visit Provider Physician Assistant Surgical | DX: E11.21 Type 2 diabetes mellitus with diabetic nephropathy (principal) | CPT/HCPCS: 99211 ==

== ENCOUNTER 2022-09-09 06:13 | Day surgery (SDC) | payer MEDICAID, SELFPAY ==
[2022-09-03 13:48] VITALS: BMI 43.4
[2022-09-09] VITALS (10 sets, daily range): BP systolic 115–144; BP diastolic 62–80; PULSE 76–86; RESP 16–22; TEMP 36.3–36.8; O2SAT 92–97
[2022-09-09] MEDS: Lactated Ringers 1,000 ML 100 ML IVCONT (06:57)
[2022-09-09 07:05] LABS: Glucose, Whole Blood 162 mg/dL (60-115)
--- NOTE | 2022-09-09 07:29 | PC.NURSE ---
dr. lino updated that patient has elana and does use her cpap. 95%RA. lungs sounds bilaterally in lower lobes are diminished. updated that ventolin order is already in for preop prn. dr. lino stated okay to give. respiratory called.
[2022-09-09] MEDS: Albuterol Sulfate (0.083%) 2.5 MG/3 ML VIAL.NEB INHALE (07:36)
--- NOTE | 2022-09-09 07:53 | HO.ANESPROP2 ---
HPI - Anesthesia Eval Consult details Narrative: for hemorroidectomy PMFSH Active Problems Active Problems: All Active Problems (Updated 08/06/22 @ 11:11 by Ramsey Reynolds MD) Coarse tremors (Acute) Bleeding hemorrhoids (Acute) Morbid obesity (Acute) Primary osteoarthritis of left knee (Acute ~12/07/19) Pelvic pain (Acute) Fibromyalgia (Acute) Spondylosis of lumbar region without myelopathy or radiculopathy (Acute) Gastroparesis (Acute) Obesity due to excess calories (Acute) SOB (shortness of breath) on exertion (Acute) Lumbosacral spondylosis with radiculopathy (Acute) Lumbar facet arthropathy (Acute) Sacroiliac joint dysfunction (Acute) Morbid obesity with BMI of 45.0-49.9, adult (Acute) Muscle spasm of back (Acute) Abnormal nuclear cardiac imaging test (Acute) Acute respiratory failure with hypoxia (Acute) Patellofemoral arthritis of right knee (Acute) Restrictive lung disease (Acute) DINA on CPAP (Acute) COVID-19 (Acute) Hyperlipidemia (Acute) Obstructive sleep apnea on CPAP (Acute) Asthma (Acute) Hypothyroidism (Acute) Paranoia (psychosis) (Acute) Stress incontinence (Acute) Insomnia (Acute) Anxiety (Acute) Depression (Acute) Dyslipidemia (Acute) HTN (hypertension) (Acute) Scoliosis of thoracolumbar spine (Acute) Morbid obesity (Acute) Chronic pain syndrome (Acute) Sacroiliitis (Acute) Spondylosis of lumbar region without myelopathy or radiculopathy (Acute) Inappropriate sinus tachycardia (Acute) GERD (gastroesophageal reflux disease) (Acute) Diabetic nephropathy associated with type 2 diabetes mellitus (Acute) 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 due to insulin (Acute) care home (current) use of insulin (Acute) Gastroparesis (Acute) 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, uncontrolled (Acute) Past Medical History Medical History Anemia Anxiety Asthma Bilateral pneumonia Bleeding hemorrhoids Chest pain Chronic pain syndrome Coarse tremors Dental crowns present Depression 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, uncontrolled Diabetic nephropathy associated with type 2 diabetes mellitus Dyslipidemia Family history of colon cancer Fibromyalgia Gastroparesis Genu valgum GERD (gastroesophageal reflux disease) Hemorrhoids HTN (hypertension) Hyperlipidemia 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 due to insulin Hypothyroidism Inappropriate sinus tachycardia Insomnia care home (current) use of insulin Low back pain Lumbar spondylosis Migraine Morbid obesity Obstructive sleep apnea on CPAP Palpitations Paranoia (psychosis) Patella-femoral syndrome Patellofemoral arthritis Respiratory failure Sacroiliitis Scoliosis of thoracolumbar spine Spondylosis of lumbar region without myelopathy or radiculopathy Stress incontinence Tubular adenoma Vitamin D deficiency Family History Family History Father Stomach cancer Mother Heart disease HTN (hypertension) Diabetes Son No problems noted. Paternal Aunt Stomach cancer Sister Stomach cancer Sister Uterine cancer Family history of problems with anesthesia: No Surgical History Surgical History H/O esophagogastroduodenoscopy History of arthroscopy of right knee History of bilateral carpal tunnel release History of bladder surgery History of colonoscopy History of surgery History of tubal ligation Hx of section Hx of tonsillectomy History of Problems with Anesthesia: No Social History Social History Household Members: Family Household Members Other:: adult son Housing: Apartment Are you a primary primary care provider to a significant other at home: No Do you presently have visiting nurse or other home services: Yes ([employer] daily) Alcohol intake: never Patient Tobacco Use Status: Never used Tobacco Second Hand Smoke Exposure: No Use of substances other than those prescribed or required for medical reasons: No Are you DNR?: No Advance Directives: No Advance Directives Information Provided: Yes Advance Directives on File: No Recently lost weight without trying: No Nutrition Risks: No Nutritional Risk service: No Current occupational status: disabled Current occupation: lt handed Sexual orientation: Straight/Heterosexual Gender identity: Female Meds Allergies Allergy/AdvReac Type Severity Reaction Status Date / Time No Known Allergies Allergy Verified 09/09/22 07:18 [No Known Allergies*] Active Medications: Current Medications Albuterol Sulfate (Albuterol Sulfate (0.083%) 2.5 Mg/3 Ml Vial.Neb) 2.5 mg INHALE ONCE PRN PRN Reason: Shortness of Breath/Wheezing Last Admin: 09/09/22 07:36 Dose: 2.5 mg Lactated Ringer's (Lr) 1,000 mls @ 100 mls/hr IVCONT .Q10H KELSY Last Admin: 09/09/22 06:57 Dose: 100 mls/hr Home Medications Medication Instructions Recorded Confirmed Last Taken Type clonidine HCl 0.1 mg tablet 0.1 mg PO BEDTIME 11/30/19 09/03/22 11/09/21 History ferrous sulfate 325 mg (65 mg 325 mg PO Q OTHER DAY 11/30/19 09/03/22 07/04/22 History iron) tablet rosuvastatin 20 mg tablet (Crestor) 20 mg PO DAILY 11/30/19 09/03/22 11/10/21 History thiamine HCl (vitamin B1) 100 mg 100 mg PO DAILY 11/30/19 09/03/22 11/10/21 History tablet aspirin 81 mg tablet,delayed 81 mg PO DAILY 01/01/21 09/03/22 09/02/22 History release cyanocobalamin (vitamin B-12) 1,000 mcg IM [id number] 01/01/21 09/03/22 Unknown History 1,000 mcg/mL injection solution hydrochlorothiazide 25 mg tablet 25 mg PO DAILY 01/01/21 09/03/22 11/10/21 History melatonin 5 mg tablet 5 - 10 mg PO BEDTIME PRN Sleep 01/01/21 09/03/22 11/09/21 History clonazepam 1 mg tablet 1 mg PO TID PRN Anxiety 05/07/21 09/03/22 09/09/22 History omeprazole 20 mg capsule,delayed 20 mg PO DAILY@0630 05/07/21 09/03/22 09/09/22 History release valsartan 160 mg tablet 160 mg PO DAILY 05/07/21 09/03/22 11/10/21 History cholecalciferol (vitamin D3) 50 50 mcg PO DAILY 07/12/21 09/03/22 11/10/21 History mcg (2,000 unit) capsule docusate sodium 100 mg capsule 100 mg PO BID 09/26/21 09/03/22 11/10/21 History albuterol sulfate 90 mcg/actuation 2 puff inhalation Q4-6H PRN asthma 10/23/21 09/03/22 11/10/21 History aerosol inhaler (ProAir HFA) hydroxyzine HCl 25 mg tablet 1 - 2 tab PO BEDTIME PRN Anxiety 10/23/21 09/03/22 11/09/21 History levothyroxine 125 mcg tablet 1 tab PO DAILY@0600 10/23/21 09/03/22 09/09/22 History nortriptyline 50 mg capsule 1 cap PO BEDTIME 10/23/21 09/03/22 11/09/21 History albuterol sulfate 2.5 mg/3 mL 2.5 mg inhalation Q4H PRN Wheezing 12/04/21 09/03/22 Unknown History (0.083 %) solution for nebulization Exam Exam Date and Time: September 09, 2022 4381 Height,Weight and Vital Signs: Height 5 ft 4 in Weight 114.759 kg Last Vital Signs Temp 98.0 F 09/09/22 07:17 Pulse 80 09/09/22 07:40 Resp 16 09/09/22 07:40 BP 144/79 H 09/09/22 07:17 Pulse Ox 95 09/09/22 07:17 O2 Del Method Room Air 09/09/22 07:17 Pertinent Lab Results Pertinent Lab Results: Laboratory Tests 09/09/22 07:01 POC Glucose 162 H Airway Mallampati Class: III TM Dist: <=3cm Neck ROM: Limited Heart: rrr Lungs: cta Assessment and Plan Assessment Anesthesia Assessment: Anesthesia Plan Discussed and Chart Reviewed Final Anesthetic Review Family History of Problems with Anesthesia: No History of Problems with Anesthesia: No NPO: Yes ASA Class: III Final Preanesthetic Review: No Changes in Pt Med Stat, Meds/Allgs Chart Reviewed, Consent Obtained/Reviewed and Anes Risks/Benef Reviewed Patient Risk: High Procedure Risk: Intermediate Anesthetic Plan Anesthetic Plan: GA Disposition: Standard PACU
--- NOTE | 2022-09-09 07:55 | PC.NURSE ---
report given to terry davison at this time.
--- NOTE | 2022-09-09 08:23 | MHC.SHP ---
Pre-Procedural Eval Section A Date of Service: 09/09/22 Section B Chief Complaint: Unspecified hemorrhoids Details of Present Illness: Has had bleeding hemorrhoids, worsening and she wants to proceed with hemorrhoidectomy Relevant Family History (Specify if Yes): No Relevant Social History: None Present Medications: None Medical History: Significant History ( arthritis, fibromyalgia, gastroparesis, obesity, sleep apnea asthma, hypothyroidism) Allergies: Allergies Allergy/AdvReac Type Severity Reaction Status Date / Time No Known Allergies Allergy Verified 09/09/22 07:18 [No Known Allergies*] Review of Systems Sugical H&P ROS: Negative: Constitution, Cardiovascular, Respiratory, Neurological, Psychiatric, Hem-Onc, Allergic/Immunologic, Gastrointestinal, Genitourinary, Musculoskeletal, Integumentary, Endocrine and Eyes/Ears/Nose/Throat Exam Surgical H&P Exam: Normal: HEENT, Normal: Heart, Normal: Lungs, Normal: Extremities, Normal: Abdomen, Normal: Skin and Normal: Neurological Plan Diagnosis/Plan: Unchanged I have reviewed the history and physical and performed a pertinent physical examination on my patient. No changes have occurred unless specified. Time Spent With Patient Time: Total time managing care of this patient today ____ minutes.
--- NOTE | 2022-09-09 09:41 | W.PM.OPN ---
Operative Note Operative Note Date of Service: 09/09/22 Narrative: Preop diagnosis: Internal and external hemorrhoids with bleeding Postop diagnosis: The same Procedure: Exam under anesthesia, hemorrhoidectomy x 3 columns Surgeon: Ramsey Reynolds MD The patient is a 57 year female, with note of a long history of bleeding with her hemorrhoids. Examination in the showed internal and external hemorrhoids, on the left and right side. She wanted to proceed with hemorrhoidectomy. She understood the technique of the procedure. She was aware to risks, benefits, and alternatives. She was brought to the operating room. She was placed in prone hailey-knife position under general seizure via endotracheal tube. The buttocks were retracted with wide tape laterally. The perianal area was prepped and draped in the usual sterile fashion. A surgical time-out was done. The patient received Cefotan 2 g IV preoperatively. The perianal area was infiltrated with lidocaine 1% . Examination of the anal orifice revealed external hemorrhoids, the left and the right side. I inserted the Rashmi Clark retractor and examined the anal canal circumferentially. She did have internal hemorrhoidal columns as well. The largest hemorrhoidal columns appear to be in the right lateral, right anterior as well as the left lateral areas. These were mixed hemorrhoidal columns. There were no other lesions seen I applied a Mcneal grasper on the hemorrhoidal column on the right anterior which was the largest column. I made a figure of 8 stitch at the pedicle using chromic 3-0. I made an incision around this hemorrhoidal column to the perianal skin using blade 15. I excised this hemorrhoidal column above the plane of sphincters using scissors. I closed this incision with a running chromic 3-0 stitch with additional hemostatic eewrob-jz-ftzyz sutures applied for oozing areas. I applied a Mcneal grasper on the hemorrhoidal column on the left lateral area. I retracted this hemorrhoidal column made a figure of 8 stitch at its pedicle. I made an incision around this hemorrhoidal column to the perianal skin. I excised this hemorrhoidal column above the plane of sphincters along this incision using scissors I closed this incision with a running chromic 3-0 stitch. The right lateral hemorrhoid column was also seen and the pedicle grasper. I made a hyvsjp-di-zyyom stitch at the pedicle using chromic 3-0. I made an incision around this hemorrhoidal column to the perianal skin beta seen excise this about the plane of sphincters using scissors. I closed the incision with a running chromic 3-0 stitch. Additional hemostatic duwazi-[id number] sutures were placed. I infiltrated the perianal area with Marcaine 0.5% for postop analgesia. Once hemostasis was confirmed, proceeded to then placed edge rolled Gelfoam into the anal canal for additional hemostasis The procedure was then completed. The patient tolerated procedure well. There were no immediate complications. Initial and final counts of sponges and instruments were correct. Estimated blood loss was about 25 cc. The patient was extubated without difficulty and transferred to the recovery room with stable vital signs.
[2022-09-09] MEDS: oxyCODONE HCl Immed Release 5 MG TABLET PO ×2 (10:06→10:26)
[2022-09-09] MEDS: Acetaminophen 1,000 MG/100 ML PIGGYBACK 400 MG IV (10:27)
== END 2022-09-09 11:51 | disposition home or self-care (01) ==
PROVIDERS: PCP Family Medicine; Visit Provider Surgery
PROC: (CPT 46260; principal; 2022-09-09 08:40)
DX: K64.8 Other hemorrhoids (principal); K64.4 Residual hemorrhoidal skin tags; E11.9 Type 2 diabetes mellitus without complications; I10 Essential (primary) hypertension; J45.909 Unspecified asthma, uncomplicated; Z79.4 Long term (current) use of insulin; Z79.82 Long term (current) use of aspirin; Z79.899 Other long term (current) drug therapy
CPT/HCPCS: 46260; 82947; 88304; 94640; J0131; J1885; J2405; J3010

== ENCOUNTER → 2022-09-09 06:13 | Outpatient (BNV) | payer MEDICAID, SELFPAY | PROVIDERS: PCP Family Medicine; Visit Provider Surgery | DX: K64.8 Other hemorrhoids (principal) | CPT/HCPCS: 46946 ==

== ENCOUNTER 2022-09-10 11:01 | Emergency (ER) | payer MEDICAID, SELFPAY ==
[2022-09-10] VITALS (7 sets, daily range): BP systolic 112–151; BP diastolic 56–82; PULSE 84–94; RESP 18–26; TEMP 36.8–37.2; O2SAT 91–100; BMI 43.7
--- NOTE | ~2022-09-10 | CT_ITS ---
EXAMINATION: CT ABDOMEN AND PELVIS WITHOUT CONTRAST CLINICAL INFORMATION: Urinary retention. Constipation. COMPARISON: Abdominal ultrasound 07/22/2022 CT abdomen/pelvis 08/07/2021 TECHNIQUE: Multidetector volumetric imaging was performed from the superior aspect of the liver through the pubic symphysis. Sagittal and coronal reformatted images were obtained on the technologist's workstation. This CT examination was performed using dose optimization techniques as appropriate, variously including the following: *Automated exposure control *Adjustment of mA and/or kV according to patient size (this includes techniques or standardized protocols for targeted exams where dose is matched to indication/reason for exam; i.e. extremities or head) *Use of iterative reconstruction technique DLP: 998 mGy-cm FINDINGS: LUNG BASES: No pleural or pericardial effusion. LIVER, GALLBLADDER, AND BILIARY TREE: The liver is decreased in attenuation. The liver is enlarged measuring 22.0 cm in sagittal dimension. Nodular surface contour. No biliary ductal dilatation is present. The gallbladder is unremarkable with no evidence of radiopaque gallstones, gallbladder wall thickening, or obvious pericholecystic inflammatory changes. PANCREAS: No ductal dilatation. SPLEEN: Not enlarged. ADRENAL GLANDS: No adrenal masses. KIDNEYS AND URETERS: Kidneys are symmetric in size. There is moderate bilateral hydroureteronephrosis. No obstructing calculus. Minimal perinephric stranding. BLADDER: Distended. No bladder calculus. GASTROINTESTINAL TRACT: Small and large bowel loops are of normal caliber. No small bowel obstruction. ABDOMINAL WALL: No significant hernia is appreciated. LYMPH NODES: No bulky abdominal or pelvic lymphadenopathy. VASCULAR: No abdominal aortic aneurysm. PELVIC VISCERA: The uterus and adnexa are unremarkable. OSSEOUS STRUCTURES: No destructive bone lesions. CT/CT abdomen pelvis wo IV con IMPRESSION: Distended urinary bladder. Moderate bilateral hydroureteronephrosis. This likely represents urinary retention. Hepatomegaly and hepatic steatosis.
--- NOTE | 2022-09-10 11:49 | PC.NURSE ---
pt placed on 2L NC for 91% on RA- no resp distress noted. slightly tachypneic resp 20-26. talking full sentences. assistedx1 to commode- urinated yellow urine. generalized weakness. RUQ/RLQ abd pain. nausea. no vomiting/diarrhea. reports last bm 09/06/22. rports brown blood when wipes on napkin to rectal area - hx hemmroids with related surgery yesterday.
--- NOTE | 2022-09-10 12:08 | ED_ITS ---
HPI - General Adult General Chief complaint: General Medical Stated complaint: rectal pain S/P surgery t-1 Time Seen by Provider: 09/10/22 12:06 Source: patient, family and automotive parts interpreter Mode of arrival: ambulatory Limitations: no limitations History of Present Illness HPI narrative: 57 yo female with PMH of gastroparesis, fibromyalgia, obesity, asthma, hypothyroidism, pain syndromes, HTN, HLD, depression who is s/p hemorrhoidectomy x 3 columns yesterday she presents with concern that she has not had a BM since procedure - taking oxycodone and colace. She also feels nausea since surgery and she is worried because yesterday she states she didn't urinate. She urinated when she came in today. SHe notes her body is sore from the procedure as well. The patient is wondering how long it will take for her to feel better MD complaint: rectal pain Onset (ago): day(s) (1) Location: abdomen (rectal pain) Severity: moderate Quality: aching and constant Pain Consistency: constant Relieving factors: none Exacerbating factors: movement Associated symptoms: other (has difficulty urinating, feels bloated, nauseated) Treatments prior to arrival: none Related Data Home Medications Medication Instructions Recorded Confirmed clonidine HCl 0.1 mg tablet 0.1 mg PO BEDTIME 11/30/19 09/03/22 ferrous sulfate 325 mg (65 mg 325 mg PO Q OTHER DAY 11/30/19 09/03/22 iron) tablet rosuvastatin 20 mg tablet (Crestor) 20 mg PO DAILY 11/30/19 09/03/22 thiamine HCl (vitamin B1) 100 mg 100 mg PO DAILY 11/30/19 09/03/22 tablet aspirin 81 mg tablet,delayed 81 mg PO DAILY 01/01/21 09/03/22 release cyanocobalamin (vitamin B-12) 1,000 mcg IM [id number] 01/01/21 09/03/22 1,000 mcg/mL injection solution hydrochlorothiazide 25 mg tablet 25 mg PO DAILY 01/01/21 09/03/22 melatonin 5 mg tablet 5 - 10 mg PO BEDTIME PRN Sleep 01/01/21 09/03/22 clonazepam 1 mg tablet 1 mg PO TID PRN Anxiety 05/07/21 09/03/22 omeprazole 20 mg capsule,delayed 20 mg PO DAILY@0630 05/07/21 09/03/22 release valsartan 160 mg tablet 160 mg PO DAILY 05/07/21 09/03/22 cholecalciferol (vitamin D3) 50 50 mcg PO DAILY 07/12/21 09/03/22 mcg (2,000 unit) capsule docusate sodium 100 mg capsule 100 mg PO BID 09/26/21 09/03/22 albuterol sulfate 90 mcg/actuation 2 puff inhalation Q4-6H PRN asthma 10/23/21 09/03/22 aerosol inhaler (ProAir HFA) hydroxyzine HCl 25 mg tablet 1 - 2 tab PO BEDTIME PRN Anxiety 10/23/21 09/03/22 levothyroxine 125 mcg tablet 1 tab PO DAILY@0600 10/23/21 09/03/22 nortriptyline 50 mg capsule 1 cap PO BEDTIME 10/23/21 09/03/22 albuterol sulfate 2.5 mg/3 mL 2.5 mg inhalation Q4H PRN Wheezing 12/04/21 09/03/22 (0.083 %) solution for nebulization Previous Rx's Medication Instructions Recorded metoclopramide HCl 5 mg tablet 5 mg PO BEDTIME #30 tabs 07/31/21 lidocaine 5 % topical patch 1 patch topical DAILY #15 ea 08/07/21 (Lidoderm) TRUEplus Lancets 33 gauge (lancets) #120 ea 12/13/21 pen needle, diabetic 32 gauge x #100 ea 03/25/22 (BD Usha 2nd Gen Pen Needle) blood sugar diagnostic (FreeStyle #150 ea 04/17/22 Lite Strips) propranolol 80 mg tablet 80 mg PO BID 90 days #180 tabs 04/17/22 fluticasone propionate 230 2 puff inhalation Q12H 30 days #1 04/21/22 mcg-salmeterol 21 mcg/actuation ea HFA inhaler (Advair HFA) gabapentin 400 mg capsule 400 mg PO TID #270 caps 05/07/22 metformin 500 mg tablet 1,000 mg PO BID 90 days #360 tabs 05/20/22 flash glucose scanning reader #1 ea 06/05/22 (FreeStyle Ort[place] 2 [place]) flash glucose sensor (FreeStyle #2 ea 06/05/22 Ortiz 2 Sensor kit) glucagon 3 mg/actuation nasal 3 mg intranasal ONCE unresponsive 06/23/22 spray (Baqsimi) hypoglycemia 30 days #4 ea insulin regular hum U-500 conc 500 See Rx Instructions subcut 07/10/22 unit/mL(3 mL) subcut pen (Humulin .COMPLEX #6 mL R U-500 (Conc) Insulin Kwikpen) blood-glucose meter (FreeStyle #1 ea 07/17/22 Lite Meter kit) furosemide 20 mg tablet 20 mg PO QAM #30 tabs 09/01/22 docusate sodium 100 mg capsule 100 mg PO BID #60 caps 09/09/22 (Colace) ibuprofen 600 mg tablet 600 mg PO Q6H PRN pain #30 tabs 09/09/22 oxycodone-acetaminophen 5 mg-325 1 tab PO Q4-6H PRN pain #30 tabs 09/09/22 mg tablet (Percocet) sitagliptin phosphate 100 mg 100 mg PO QAM #30 tabs 09/09/22 tablet (Januvia) Allergies Allergy/AdvReac Type Severity Reaction Status Date / Time No Known Allergies Allergy Verified 09/09/22 07:18 [No Known Allergies*] Review of Systems Review of Systems: Constitutional : No Weight loss, No Fever, No Chills ENT/Mouth : No sore throat, No Rhinorrhea Eyes: No Swelling, No Redness Cardiovascular : No Chest Pain, No SOB, NoEdema Respiratory : No Cough, No Sputum, No Wheezing Gastrointestinal : Positive Nausea, no Vomiting, no Diarrhea, positive abdominal Pain, No Hematochezia, No Melena, pos constipation, pos rectal pain Genitourinary : No Dysuria, No Urinary Frequency, No Hematuria, No Urgency, pos hesitancy Musculoskeletal : No joint pain, No Myalgias, No Joint Swelling Skin : No Skin Lesions, No rash Neuro : No Weakness, No Numbness, No Dizziness, No Headache All other systems reviewed and are negative. [facility] Past Medical History Attestation statement: The following information was validated with the patient. 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 Low back pain Lumbar spondylosis Migraine Morbid obesity Obstructive sleep apnea on CPAP Palpitations Paranoia (psychosis) Patella-femoral syndrome Patellofemoral arthritis Respiratory failure Sacroiliitis Scoliosis of thoracolumbar spine Spondylosis of lumbar region without myelopathy or radiculopathy Stress incontinence Tubular adenoma Vitamin D deficiency Surgical History H/O esophagogastroduodenoscopy History of arthroscopy of right knee History of bilateral carpal tunnel release History of bladder surgery History of colonoscopy History of surgery History of tubal ligation Hx of section Hx of tonsillectomy Family History Family History Father Stomach cancer Mother Heart disease HTN (hypertension) Diabetes Son No problems noted. Paternal Aunt Stomach cancer Sister Stomach cancer Sister Uterine cancer Social History Social History Household Members: Family Household Members Other:: adult son Housing: Apartment Are you a primary medicare insurance specialist to a significant other at home: No Do you presently have visiting nurse or other home services: Yes ([employer] daily) Alcohol intake: never Patient Tobacco Use Status: Never used Tobacco Second Hand Smoke Exposure: No Use of substances other than those prescribed or required for medical reasons: No Advance Directives: No Advance Directives Information Provided: Yes service: No Current occupational status: disabled Current occupation: lt handed Sexual orientation: Straight/Heterosexual Gender identity: Female Physical Exam ED Vital Signs: Vital Signs - 24 hr 09/10/22 11:15 09/10/22 11:29 09/10/22 11:49 Temperature 98.7 F 98.3 F Pulse Rate 88 94 Respiratory Rate 18 23 H Blood Pressure 136/65 112/56 L Pulse Oximetry 95 91 L 97 Oxygen Delivery Method Room Air Room Air Nasal Cannula Oxygen Flow Rate 2 09/10/22 13:55 09/10/22 15:21 Temperature 98.6 F Pulse Rate 86 90 Respiratory Rate 26 H 18 Blood Pressure 144/79 H Pulse Oximetry 100 Oxygen Delivery Method Nasal Cannula Oxygen Flow Rate 2 BMI result Body Mass Index 43.7 Appearance: Alert. Oriented X3. No acute distress. Eyes: Pupils equal, round and reactive to light. ENT: Pharynx normal. Neck: Normal inspection. Neck supple. CVS: Normal heart rate and rhythm. Pulses normal. Respiratory: No respiratory distress. Breath sounds normal. Abdomen: Soft and mild distention but no rebound or guarding, minimal ttp diffusely Rectal: bruising near rectum as expected but no large hematoma - sutures intact no cellulitis/abscess/drainage Skin: Skin warm and dry. Normal skin color. Normal skin turgor. Extremities: No lower extremity edema. No calf ttp Neuro: Oriented X 3. No motor deficit. No sensory deficit. Course Course Course Narrative: meza for urinary retention - likely post anesthesia - CT Scan no bowel obstruction and no ileus noted Reevaluation(s) Reevaluation #1: O2 has been 92 - 95% at baseline has hx of VALLEJO and obesity she is not dropping below 90% she has no dyspnea feels fine, no aspiration on CT scan at this time feeling better will keep meza in and refer to PCP for meza removal on Thursday. she has very mild wheezes will give duoneb Reevaluation #2: feels better daughter to bring patient home - stable for DC given precautions to return 100% after neb Medications Administered Discontinued Medications Generic Name Dose Route Start Last Admin Trade Name Freq PRN Reason Stop Dose Admin Albuterol/Ipratropium 3 ml 09/10/22 14:59 09/10/22 15:20 Albuterol/Iprat 2.5/0.5mg 3 Ml Ampul.Neb INHALE 09/10/22 15:00 3 ml ONCE ONE Administration Ondansetron HCl 4 mg 09/10/22 12:36 09/10/22 13:02 Ondansetron Hcl 4 Mg/2 Ml Vial IVPUSH 09/10/22 12:37 4 mg ONCE ONE Administration Medical Decision Making Medical Decision Making [facility] Narrative: 57 yo female with PMH of gastroparesis, fibromyalgia, obesity, asthma, hypothyroidism, pain syndromes, HTN, HLD, depression who is s/p hemorrhoidectomy x 3 columns yesterday here with c/o rectal pain wondering why she hasn't had BM and c/o feeling she cannot void either along with nausea and feeling generally unwell with aches after anesthesia yesterady - at this time suspect issues due to anesthesia also told patient not to expect BM right away with medications/anesthesia and this procedure. Will obtain basic labs, KUB given her mild distention, bladder scan PVR and give nausea. Most of her symptoms likely due to post anesthesia as expected Differential Diagnosis Differential Diagnoses: The differential diagnosis associated with the presentation includes ileus, anesthesia reaction, nausea, constipation Admission/Observation Consideration of admission/observation: Escalation of care including admiss ion/observation considered no obstruction, feels better with catheter has help at home, no aspiration, improved with neb - did dip down O2 sat but improved suspect medications and obesity hypoventilation. Lab Data MDM Lab Attestation statement: I reviewed the patient's lab results. 09/10/22 12:59 09/10/22 12:59 Labs: Lab Results 09/10/22 09/10/22 09/10/22 Range/Units 12:15 12:34 12:59 WBC (4.8-10.8) X10*3/uL RBC (4.20-5.50) X10*6/uL Hgb (12.0-16.0) g/dl Hct (37.0-47.0) % MCV (80.0-98.0) fL MCH (27.0-33.0) pg MCHC (31.0-35.0) g/dl RDW (11.0-16.0) % Plt Count (160-400) X10*3/uL MPV (9.4-12.3) fL Immature Gran % (Auto) (0.0-0.4) % Neut % (Auto) (45-73) % Lymph % (Auto) (20-40) % [place] % (Auto) (2-11) % Eos % (Auto) (0-4) % Baso % (Auto) (0-2) % Lymph # (Auto) (1.2-4.9) X10*3/uL [place] # (Auto) (0.1-1.2) X10*3/uL Eos # (Auto) (0.0-0.4) X10*3/uL Baso # (Auto) (0.0-0.2) X10*3/uL Abs Immat Gran (auto) (0.00-0.03) X10*3/uL Absolute Neuts (auto) (2.0-8.3) x10*3/uL Absolute Nucleated RBC (0.0-0.012) X10*3/uL Nucleated RBC % (auto) (0.0-0.2) /100WBC Sodium 145 (135-145) mmol/L Potassium 4.1 (3.3-5.1) mmol/L Chloride 104 (96-108) mmol/L Carbon Dioxide 29 (22-29) mmol/L Anion Gap 16 (12-20) BUN 6 L (9-16) mg/dL Creatinine 0.68 (0.5-1.4) mg/dL Estim Creat Clear Calc 116.5 Estimated GFR > 60 POC Glucose 137 H (60-115) mg/dL Random Glucose 125 H (60-115) mg/dL Calcium 10.7 H D (8.4-10.2) mg/dL Total Bilirubin 0.4 (0.0-1.0) mg/dL AST 14 (5-31) U/L ALT 13 (0-31) U/L Alkaline Phosphatase 146 H (39-117) U/L Total Protein 8.4 H (6.5-8.0) g/dL Albumin 4.3 (3.5-5.0) g/dL Urine Color Yellow Urine Appearance Clear Urine pH 5.5 (5.0-9.0) Ur Specific [place] 1.015 (1.005-1.025) Urine Protein Negative (Neg-Trace) mg/dL Urine Glucose (UA) 500 H (Negative) mg/dL Urine Ketones Negative (Negative) mg/dL Urine Blood Moderate (2+) H (Negative) Urine Nitrite Negative (Negative) Ur Leukocyte Esterase Negative (Negative) Urine RBC 6-10 H (0-2) /HPF Urine WBC 0-5 (0-5) /HPF Ur Squamous Epith Cells 3-5 (0-2) /HPF Urine Bacteria None Seen (None Seen) Hyaline Casts 0-2 (0-2) /LPF 09/10/22 Range/Units 12:59 WBC 13.5 H (4.8-10.8) X10*3/uL RBC 4.70 (4.20-5.50) X10*6/uL Hgb 12.0 (12.0-16.0) g/dl Hct 40.6 (37.0-47.0) % MCV 86.4 (80.0-98.0) fL MCH 25.5 L (27.0-33.0) pg MCHC 29.6 L (31.0-35.0) g/dl RDW 15.8 (11.0-16.0) % Plt Count 290 (160-400) X10*3/uL MPV 9.9 (9.4-12.3) fL Immature Gran % (Auto) 0.4 (0.0-0.4) % Neut % (Auto) 70.1 (45-73) % Lymph % (Auto) 23.0 (20-40) % Gregg % (Auto) 5.3 (2-11) % Eos % (Auto) 1.1 (0-4) % Baso % (Auto) 0.1 (0-2) % Lymph # (Auto) 3.1 (1.2-4.9) X10*3/uL [place] # (Auto) 0.7 (0.1-1.2) X10*3/uL Eos # (Auto) 0.2 (0.0-0.4) X10*3/uL Baso # (Auto) 0.0 (0.0-0.2) X10*3/uL Abs Immat Gran (auto) 0.05 H (0.00-0.03) X10*3/uL Absolute Neuts (auto) 9.5 H (2.0-8.3) x10*3/uL Absolute Nucleated RBC 0.000 (0.0-0.012) X10*3/uL Nucleated RBC % (auto) 0.0 (0.0-0.2) /100WBC Sodium (135-145) mmol/L Potassium (3.3-5.1) mmol/L Chloride (96-108) mmol/L Carbon Dioxide (22-29) mmol/L Anion Gap (12-20) BUN (9-16) mg/dL Creatinine (0.5-1.4) mg/dL Estim Creat Clear Calc Estimated GFR POC Glucose (60-115) mg/dL Random Glucose (60-115) mg/dL Calcium (8.4-10.2) mg/dL Total Bilirubin (0.0-1.0) mg/dL AST (5-31) U/L ALT (0-31) U/L Alkaline Phosphatase (39-117) U/L Total Protein (6.5-8.0) g/dL Albumin (3.5-5.0) g/dL Urine Color Urine Appearance Urine pH (5.0-9.0) Ur Specific [place] (1.005-1.025) Urine Protein (Neg-Trace) mg/dL Urine Glucose (UA) (Negative) mg/dL Urine Ketones (Negative) mg/dL Urine Blood (Negative) Urine Nitrite (Negative) Ur Leukocyte Esterase (Negative) Urine RBC (0-2) /HPF Urine WBC (0-5) /HPF Ur Squamous Epith Cells (0-2) /HPF Urine Bacteria (None Seen) Hyaline Casts (0-2) /LPF Independent Interpretation I performed an independent interpretation of an: Plain X-Ray Radiology Impression Discussion of test interpretation with radiology: I have reviewed the radiologist's reading. Independent Historian Clinical information obtained from an independent historian. History obtained from or confirmed by: Other (daughter) External Record Review External record reviewed: Inpatient record and Office record Discharge Plan Discharge Clinical Impression: Acute urinary retention, Pain, rectal Patient Disposition: Home, Self-Care Instructions: Meza Catheter Placement and Care (ED), Acute Urinary Retention in Women (ED) Additional Instructions: return for fevers, vomiting, chest pain, increased work of breathing, cough, sputum production, abdominal pain, worsening symptoms. take your medications. call doctor tomorrow to schedule appointment for Thursday AM to get catheter removed. Prescriptions: No Action metoclopramide HCl 5 mg tablet 5 mg PO BEDTIME Qty: 30 6RF (DME) lancets [TRUEplus Lancets] 33 gauge misc See Rx Instructions .ROUTE .MEDSUPPLY Qty: 120 11RF Rx Instructions: 4 times a day (DME) pen needle, diabetic [BD Usha 2nd Gen Pen Needle] 32 gauge x 5/32 needle See Rx Instructions .MEDSUPPLY Qty: 100 11RF Rx Instructions: Twice a day propranolol 80 mg tablet 80 mg PO BID 90 Days Qty: 180 3RF (DME) FreeStyle Lite Strips Strip See Rx Instructions .MEDSUPPLY Qty: 150 5RF Rx Instructions: 5 times a day Advair HFA 230-21 mcg/actuation HFA aerosol inhaler 2 puff inhalation Q12H 30 Days Qty: 1 6RF metformin 500 mg tablet 1,000 mg PO BID 90 Days Qty: 360 1RF Baqsimi 3 mg/actuation spray,non-aerosol 3 mg intranasal ONCE 30 Days Qty: 4 6RF Rx Instructions: [place] once for severe hypoglycemia when patient cannot self-treat with glucose. Afterwards turn on side. May repeat after 15 minutes if patient does not respond. Humulin R U-500 (Conc) Kwikpen 500 unit/mL (3 mL) insulin pen See Rx Instructions subcut .COMPLEX Qty: 6 5RF Rx Instructions: Inject 125 units with breakfast and 90 units with dinner subcutaneously; (DME) blood-glucose meter [FreeStyle Lite Meter] Kit See Rx Instructions .Route Qty: 1 0RF Rx Instructions: As directed furosemide 20 mg tablet 20 mg PO QAM Qty: 30 3RF Januvia 100 mg tablet 100 mg PO QAM Qty: 30 6RF lidocaine [Lidoderm] 5 % adhesive patch,medicated 1 patch topical DAILY Qty: 15 0RF Rx Instructions: leave on most painful area for up to 12 hrs levothyroxine 125 mcg tablet 1 tab PO DAILY@0600 hydroxyzine HCl 25 mg tablet 1 - 2 tab PO BEDTIME PRN (Reason: Anxiety) albuterol sulfate [ProAir HFA] 90 mcg/actuation HFA aerosol inhaler 2 puff inhalation Q4-6H PRN (Reason: asthma) nortriptyline 50 mg capsule 1 cap PO BEDTIME Rx Instructions: TAKE WITH 75 MG oxycodone-acetaminophen [Percocet] 5-325 mg tablet 1 tab PO Q4-6H PRN (Reason: pain) Qty: 30 0RF Rx Instructions: Partial Fill upon patient request. docusate sodium [Colace] 100 mg capsule 100 mg PO BID Qty: 60 2RF ibuprofen 600 mg tablet 600 mg PO Q6H PRN (Reason: pain) Qty: 30 0RF clonidine HCl 0.1 mg tablet 0.1 mg PO BEDTIME rosuvastatin [Crestor] 20 mg tablet 20 mg PO DAILY thiamine HCl (vitamin B1) 100 mg tablet 100 mg PO DAILY Rx Instructions: WITH MEAL ferrous sulfate 325 mg (65 mg iron) tablet 325 mg PO Q OTHER DAY clonazepam 1 mg tablet 1 mg PO TID PRN (Reason: Anxiety) valsartan 160 mg tablet 160 mg PO DAILY omeprazole 20 mg capsule,delayed release(DR/EC) 20 mg PO DAILY@0630 melatonin 5 mg tablet 5 - 10 mg PO BEDTIME PRN (Reason: Sleep) hydrochlorothiazide 25 mg tablet 25 mg PO DAILY cyanocobalamin (vitamin B-12) 1,000 mcg/mL solution 1,000 mcg IM [id number] aspirin 81 mg tablet,delayed release (DR/EC) 81 mg PO DAILY docusate sodium 100 mg capsule 100 mg PO BID cholecalciferol (vitamin D3) 50 mcg (2,000 unit) capsule 50 mcg PO DAILY (DME) FreeStyle Ortiz 2 Sensor Kit See Rx Instructions .Route Qty: 2 6RF Rx Instructions: As directed change every 14 days (DME) FreeStyle [place] 2 [place] Misc See Rx Instructions .Route Qty: 1 0RF Rx Instructions: As directed gabapentin 400 mg capsule 400 mg PO TID Qty: 270 1RF albuterol sulfate 2.5 mg /3 mL (0.083 %) solution for nebulization 2.5 mg inhalation Q4H PRN (Reason: Wheezing)
[2022-09-10 12:18] LABS: Glucose, Whole Blood 137 mg/dL (60-115)
[2022-09-10 12:59] LABS: Appearance Urine Clear; Color Urine Yellow; Glucose Urine UA 500 mg/dL (Negative); Leukocyte Esterase Urine Negative (Negative); Nitrite Urine Negative (Negative); PH 5.5 (5.0-9.0); Specific Gravity - Urine 1.015 (1.005-1.025); UMIC TRIGGER UA YES; Urine Blood Moderate (2+) (Negative); Urine Ketones Negative (Negative); Urine Protein Negative (Neg-Trace)
[2022-09-10 13:01] LABS: Bacteria Urine None Seen (None Seen); Hyaline Casts Urine 0-2 /LPF (0-2); WBC Urine 0-5 /HPF (0-5)
[2022-09-10] MEDS: ondansetron HCL 4 MG/2 ML VIAL IVPUSH (13:02)
[2022-09-10 13:04] LABS: MANUAL DIFF FLAG NO
--- NOTE | 2022-09-10 13:04 | PC.NURSE ---
to CT. blader scanned for 870cc. pt voided after about 200cc. labs and urine havebeen sent- confirmed via phone w lab will run ua/culture at same time.aox4. remains on 2l no distress noted
[2022-09-10 13:06] LABS: Basophils Percent Auto 0.1 % (0-2); Eosinophils Absolute Auto 0.2 X10*3/uL (0.0-0.4); Eosinophils Percent Auto 1.1 % (0-4); Hematocrit 40.6 % (37.0-47.0); Imm Gran Abs Auto 0.05 X10*3/uL (0.00-0.03); Imm Gran Pct Auto 0.4 % (0.0-0.4); Lymphocytes Absolute Auto 3.1 X10*3/uL (1.2-4.9); Mean Corpuscular HGB Conc 29.6 g/dl (31.0-35.0); Mean Corpuscular Hemoglobin 25.5 pg (27.0-33.0); Mean Corpuscular Volume 86.4 fL (80.0-98.0); Mean Platelet Volume 9.9 fL (9.4-12.3); Monocytes Absolute Auto 0.7 X10*3/uL (0.1-1.2); Monocytes Percent Auto 5.3 % (2-11); Neutrophils Absolute Auto 9.5 x10*3/uL (2.0-8.3); Neutrophils Percent Auto 70.1 % (45-73); Platelet Count 290 X10*3/uL (160-400); Red Cell Distribution Width 15.8 % (11.0-16.0); White Blood Count 13.5 X10*3/uL (4.8-10.8)
[2022-09-10 13:25] LABS: Alanine Aminotransferase 13 U/L (0-31); Albumin Level 4.3 g/dL (3.5-5.0); Alkaline Phosphatase 146 U/L (39-117); Anion Gap 16 (12-20); Aspartate Amino Transferase 14 U/L (5-31); Bilirubin Total 0.4 mg/dL (0.0-1.0); Blood Urea Nitrogen 6 mg/dL (9-16); Calcium 10.7 mg/dL (8.4-10.2); Carbon Dioxide 29 mmol/L (22-29); Chloride 104 mmol/L (96-108); Creatinine Clr Calc Pharmacy 116.5; Estimated Glomerular Filt Rate > 60; Glucose Random 125 mg/dL (60-115); Potassium 4.1 mmol/L (3.3-5.1); Sodium 145 mmol/L (135-145); Total Protein 8.4 g/dL (6.5-8.0)
--- NOTE | 2022-09-10 13:53 | PC.NURSE ---
meza placed- clear yellow urine draining. sterile technique used with bench examiner jamaica lorenzana at bedside.
[2022-09-10] MEDS: Albuterol/Iprat 2.5/0.5MG 3 ML AMPUL.NEB INHALE (15:20)
--- NOTE | 2022-09-10 16:25 | PC.NURSE ---
pt being d/c at this time- leg bag applied- patent and draining clear, yellow urine into bag. pt instructed w burn center nurse zuleyma instructions. no questions. piv out. vss
== END 2022-09-10 16:26 | disposition home or self-care (01) ==
PROVIDERS: Emergency Provider Emergency Medicine; PCP Family Medicine
DX: G89.18 Other acute postprocedural pain (principal); K62.89 Other specified diseases of anus and rectum; R33.9 Retention of urine, unspecified; I10 Essential (primary) hypertension; E78.5 Hyperlipidemia, unspecified; E66.9 Obesity, unspecified; Z68.41 Body mass index [BMI] 40.0-44.9, adult; Z79.4 Long term (current) use of insulin
CPT/HCPCS: 36415; 51702; 74176; 80053; 81001; 82947; 85025; 87086; 94640; 96374; 99284; 99285; J2405

== ENCOUNTER 2022-09-12 11:13 | Observation (INO) | payer MEDICAID, SELFPAY ==
[2022-09-12] VITALS (8 sets, daily range): BP systolic 93–119; BP diastolic 40–72; PULSE 79–94; RESP 20–27; TEMP 36.8–37.7; O2SAT 87–96; BMI 41.5
--- NOTE | ~2022-09-12 | XR_ITS ---
EXAMINATION: XR CHEST CLINICAL INFORMATION: Hypoxia COMPARISON: 07/14/2022 TECHNIQUE: Frontal view of the chest was obtained. FINDINGS: Large body habitus. Multiple EKG wires overlie the chest. Lungs are mildly hypoinflated. Linear opacity of discoid atelectasis of left lower lung. Also, there appears to be linear opacity of atelectasis in the medial right base. No airspace disease or pleural effusion. Cardiac silhouette is in the normal size range for an anteroposterior chest radiograph. Pulmonary vascular pattern is normal. The visualized bones are intact. There is multilevel osteophyte formation of the spine. XR/XR chest 1V IMPRESSION: * Mild bibasilar atelectasis. * There is no evidence of congestive heart failure: no pulmonary edema or pleural effusion.
--- NOTE | ~2022-09-12 | CT_ITS ---
EXAMINATION: CTA CHEST PE STUDY CLINICAL INFORMATION: Hypoxia COMPARISON: Baseline 03/13/2022 TECHNIQUE: Prior to contrast administration, localization images were obtained. After the administration of 85 mL of Omnipaque 350 nonionic IV contrast, contiguous axial images were obtained through the thorax. Reformatted images in the coronal and sagittal planes were obtained at the acquisition workstation. This CT examination was performed using dose optimization techniques as appropriate, variously including the following: *Automated exposure control *Adjustment of mA and/or kV according to patient size (this includes techniques or standardized protocols for targeted exams where dose is matched to indication/reason for exam; i.e. extremities or head) *Use of iterative reconstruction technique DLP: 451 mGy-cm FINDINGS: The bolus timing on this study was acceptable for visualization of the pulmonary arterial tree. There are no intraluminal pulmonary arterial filling defects present to suggest pulmonary embolism. The lungs are notable for minor linear densities at both bases. Discoid atelectasis or scarring.. No abnormal pulmonary nodules or masses are appreciated. There is no evidence of pleural effusion or pneumothorax. No coronary artery calcifications are present. The heart is normal in size. The mediastinum and great vessels are normal. There is no pericardial effusion or lymphadenopathy. Limited evaluation of the upper abdominal viscera demonstrates no focal lesion. CT/CT angio chest PE protocol IMPRESSION: No evidence for acute or chronic pulmonary embolism.. EXAMINATION: CT ABDOMEN AND PELVIS WITH CONTRAST CLINICAL INFORMATION: Reason for Exam pain COMPARISON: Baseline including 09/10/2022 TECHNIQUE: Multidetector volumetric imaging was performed from the superior aspect of the liver through the pubic symphysis following administration of 85 mL Omnipaque Omnipaque 350 intravenous contrast. Sagittal and coronal reformatted images were obtained on the technologist workstation.. This CT examination was performed using dose optimization techniques as appropriate, variously including the following: *Automated exposure control *Adjustment of mA and/or kV according to patient size (this includes techniques or standardized protocols for targeted exams where dose is matched to indication/reason for exam; i.e. extremities or head) *Use of iterative reconstruction technique DLP: 1098 mGy-cm FINDINGS: LUNG BASES: The visualized lung bases are unremarkable. LIVER, GALLBLADDER, AND BILIARY TREE: The liver is slightly nodular in morphology suggesting cirrhosis. No hyperenhancing lesion. No focal hepatic lesion or biliary ductal dilatation is present. The gallbladder is unremarkable with no evidence of radiopaque gallstones, gallbladder wall thickening, or obvious pericholecystic inflammatory changes. PANCREAS: Unremarkable. SPLEEN: Unremarkable. ADRENAL GLANDS: Unremarkable. KIDNEYS AND URETERS: The kidneys are normal in size, shape, and attenuation. No hydronephrosis, hydroureter, or calculi seen. No perinephric stranding. BLADDER: Unremarkable. GASTROINTESTINAL TRACT: The small and large bowel are unremarkable. The appendix is unremarkable. ABDOMINAL WALL: No significant hernia is appreciated. LYMPHOVASCULAR STRUCTURES: No lymphadenopathy. The aorta is unremarkable. PELVIC VISCERA: Unremarkable. OSSEOUS STRUCTURES: Unremarkable. IMPRESSION: 1. Likely early cirrhotic hepatic morphology. 2. No acute findings.
[2022-09-12 11:36] LABS: Glucose, Whole Blood 56 mg/dL (60-115)
--- NOTE | 2022-09-12 12:06 | ECG_ITS ---
Test Reason : dyspnea Blood Pressure : / mmHG Vent. Rate : 086 BPM Atrial Rate : 086 BPM P-R Int : 134 ms QRS Dur : 096 ms QT Int : 346 ms P-R-T Axes : 042 023 022 degrees QTc Int : 414 ms Normal sinus rhythm Nonspecific ST abnormality Abnormal ECG When compared with ECG of 01-APR-2022 11:32, QT has shortened Referred By: Radha Carter Electronically Signed By:CORBY CALZADA MD
[2022-09-12 12:14] LABS: Glucose, Whole Blood 72 mg/dL (60-115)
--- NOTE | 2022-09-12 12:18 | ED.SOB ---
HPI - SOB/Dyspnea General Chief Complaint: Dyspnea Stated Complaint: SOB, WEAKNESS per EMS Time Seen by Provider: 09/12/22 11:59 Source: patient Mode of arrival: ambulatory Limitations: no limitations History of Present Illness HPI Narrative: 57 year old female with a past medical history of type two diabetes, HTN, HLD, gastroparesis, fibromyalgia, obesity, asthma, hypothyroidism, and depression?who is post op day 4 (09/09) from a hemorrhoidectomy. On 09/10/22 she presented to the ED for urinary retention, meza was placed and she was discharged. Today (09/12) she presented to urology to have meza removed and they noted her to be hypoxic and suggested she present to the ED. Upon arrival the patient states she has been SOB for the past three days and feels drunk at rest and when walking around. She states she has been very week since the surgery. She was prescribed oxycodone. Her sugar upon arrive was 52 and she was given orange juice which brought it up to 72. She has not had any recent illnesses and no sick contacts. She denies chest pain, cough, abdominal pain, nausea, vomiting, or diarrhea. She states she has suffered from hypoglycemia in the past and has not eaten today but otherwise has been eating and drinking normally. MD elicited complaint: shortness of breath Pertinent past history: asthma and diabetes Onset (ago): day(s) Timing: constant Severity: moderate Exacerbating factors: movement Known history of: asthma and diabetes Associated symptoms: dizziness and lightheadedness Treatment prior to arrival: bronchodilator Related Data Home oxygen amount: none Home Medications Medication Instructions Recorded Confirmed clonidine HCl 0.1 mg tablet 0.1 mg PO BEDTIME 11/30/19 09/03/22 ferrous sulfate 325 mg (65 mg 325 mg PO Q OTHER DAY 11/30/19 09/03/22 iron) tablet rosuvastatin 20 mg tablet (Crestor) 20 mg PO DAILY 11/30/19 09/03/22 thiamine HCl (vitamin B1) 100 mg 100 mg PO DAILY 11/30/19 09/03/22 tablet aspirin 81 mg tablet,delayed 81 mg PO DAILY 01/01/21 09/03/22 release cyanocobalamin (vitamin B-12) 1,000 mcg IM [id number] 01/01/21 09/03/22 1,000 mcg/mL injection solution hydrochlorothiazide 25 mg tablet 25 mg PO DAILY 01/01/21 09/03/22 melatonin 5 mg tablet 5 - 10 mg PO BEDTIME PRN Sleep 01/01/21 09/03/22 clonazepam 1 mg tablet 1 mg PO TID PRN Anxiety 05/07/21 09/03/22 omeprazole 20 mg capsule,delayed 20 mg PO DAILY@0630 05/07/21 09/03/22 release valsartan 160 mg tablet 160 mg PO DAILY 05/07/21 09/03/22 cholecalciferol (vitamin D3) 50 50 mcg PO DAILY 07/12/21 09/03/22 mcg (2,000 unit) capsule docusate sodium 100 mg capsule 100 mg PO BID 09/26/21 09/03/22 albuterol sulfate 90 mcg/actuation 2 puff inhalation Q4-6H PRN asthma 10/23/21 09/03/22 aerosol inhaler (ProAir HFA) hydroxyzine HCl 25 mg tablet 1 - 2 tab PO BEDTIME PRN Anxiety 10/23/21 09/03/22 levothyroxine 125 mcg tablet 1 tab PO DAILY@0600 10/23/21 09/03/22 nortriptyline 50 mg capsule 1 cap PO BEDTIME 10/23/21 09/03/22 albuterol sulfate 2.5 mg/3 mL 2.5 mg inhalation Q4H PRN Wheezing 12/04/21 09/03/22 (0.083 %) solution for nebulization Previous Rx's Medication Instructions Recorded metoclopramide HCl 5 mg tablet 5 mg PO BEDTIME #30 tabs 07/31/21 lidocaine 5 % topical patch 1 patch topical DAILY #15 ea 08/07/21 (Lidoderm) TRUEplus Lancets 33 gauge (lancets) #120 ea 12/13/21 pen needle, diabetic 32 gauge x #100 ea 03/25/22 (BD Usha 2nd Gen Pen Needle) blood sugar diagnostic (FreeStyle #150 ea 04/17/22 Lite Strips) propranolol 80 mg tablet 80 mg PO BID 90 days #180 tabs 04/17/22 fluticasone propionate 230 2 puff inhalation Q12H 30 days #1 04/21/22 mcg-salmeterol 21 mcg/actuation ea HFA inhaler (Advair HFA) gabapentin 400 mg capsule 400 mg PO TID #270 caps 05/07/22 metformin 500 mg tablet 1,000 mg PO BID 90 days #360 tabs 05/20/22 flash glucose scanning reader #1 ea 06/05/22 (FreeStyle Ortiz 2 [place]) flash glucose sensor (FreeStyle #2 ea 06/05/22 Ortiz 2 Sensor kit) glucagon 3 mg/actuation nasal 3 mg intranasal ONCE unresponsive 06/23/22 spray (Baqsimi) hypoglycemia 30 days #4 ea insulin regular hum U-500 conc 500 See Rx Instructions subcut 07/10/22 unit/mL(3 mL) subcut pen (Humulin .COMPLEX #6 mL R U-500 (Conc) Insulin Kwikpen) blood-glucose meter (FreeStyle #1 ea 07/17/22 Lite Meter kit) furosemide 20 mg tablet 20 mg PO QAM #30 tabs 09/01/22 docusate sodium 100 mg capsule 100 mg PO BID #60 caps 09/09/22 (Colace) ibuprofen 600 mg tablet 600 mg PO Q6H PRN pain #30 tabs 09/09/22 oxycodone-acetaminophen 5 mg-325 1 tab PO Q4-6H PRN pain #30 tabs 09/09/22 mg tablet (Percocet) sitagliptin phosphate 100 mg 100 mg PO QAM #30 tabs 09/09/22 tablet (Januvia) Allergies Allergy/AdvReac Type Severity Reaction Status Date / Time No Known Allergies Allergy Verified 09/09/22 07:18 [No Known Allergies*] Review of Systems Constitutional: Constitutional: Denies body ache(s), Denies chills, Denies fever(s), Reports lethargy and Reports weakness ENT: Reports dizziness Cardiovascular: Cardiovascular: Denies chest pain, Denies Epigastric Pain, Denies edema, Denies leg edema, Reports lightheadedness, Reports dyspnea, Reports dyspnea on exertion and Reports orthopnea Respiratory: Respiratory: Denies chest congestion, Denies cough, Denies excessive phlegm production, Reports dyspnea and Reports dyspnea on exertion Gastrointestinal: Gastrointestinal: Reports other Comments: pain from hemorrhoid surgery Genitourinary: Genitourinary: Reports difficulty voiding and Denies flank pain Musculoskeletal: Musculoskeletal: Reports no additional musculoskeletal complaints Integumentary/Breasts: Skin/Breast: Reports system reviewed and no additional complaints, except as docu Neurologic: Reports dizziness and Reports weakness Psychiatric: Psychiatric: Reports no additional psychiatric complaints Endocrine: Endocrine: Reports no additional endocrine complaints Hematologic/Lymphatic: Hematologic/Lymphatic: Reports no additional hematologic/lymphatic complaints Allergic/Immunologic: Allergic/Immunologic: Reports no additional allergic/immunologic complaints [facility] Past Medical History Medical History Anemia Anxiety Asthma Bilateral pneumonia Bleeding hemorrhoids Chest pain Chronic pain syndrome Coarse tremors Dental crowns present Depression Depression Diabetes 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, uncontrolled Diabetic nephropathy associated with type 2 diabetes mellitus Dyslipidemia Family history of colon cancer Fibromyalgia Gastroparesis Genu valgum GERD (gastroesophageal reflux disease) Hemorrhoids HTN (hypertension) Hyperlipidemia 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 due to insulin Hypothyroidism Inappropriate sinus tachycardia Insomnia MCC (current) use of insulin Low back pain Lumbar spondylosis Migraine Morbid obesity Obstructive sleep apnea on CPAP Palpitations Paranoia (psychosis) Patella-femoral syndrome Patellofemoral arthritis Respiratory failure Sacroiliitis Scoliosis of thoracolumbar spine Spondylosis of lumbar region without myelopathy or radiculopathy Stress incontinence Tubular adenoma Vitamin D deficiency Surgical History H/O esophagogastroduodenoscopy History of arthroscopy of right knee History of bilateral carpal tunnel release History of bladder surgery History of colonoscopy History of surgery History of tubal ligation Hx of section Hx of tonsillectomy Family History Family History Father Stomach cancer Mother Heart disease HTN (hypertension) Diabetes Son No problems noted. 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) Alcohol intake: never Patient Tobacco Use Status: Never used Tobacco Smoked in Last 30 Days: No Second Hand Smoke Exposure: No Use of substances other than those prescribed or required for medical reasons: No Advance Directives: No Advance Directives Information Provided: No service: No Current occupational status: disabled Current occupation: lt handed Sexual orientation: Straight/Heterosexual Gender identity: Female Physical Exam Vital Signs: Vital Signs: Last Vital Signs Temp 99.8 F 09/12/22 16:34 Pulse 85 09/12/22 16:34 Resp 27 H 09/12/22 16:34 BP 119/54 L 09/12/22 16:34 Pulse Ox 95 09/12/22 16:34 O2 Del Method Nasal Cannula 09/12/22 16:34 O2 Flow Rate 2 09/12/22 13:40 BMI result Body Mass Index 41.5 Appearance: Alert. Oriented X3. Patient appears unwell, very weak (unable to hold herself up during exam) Head: normocephalic, atraumatic. Eyes: Pupils equal, round and reactive to light. ENT: Pharynx normal. No tonsillar swelling or exudate. Neck: Normal inspection. Neck supple. CVS: Normal heart rate and rhythm. Pulses normal. Respiratory: No respiratory distress. Breath sounds diminished throughout without appreciated rales, rhonchi or wheezes. Abdomen: Obese, Soft and nontender. +BS x4 Skin: Skin warm and dry. Normal skin color. Normal skin turgor. No rashes. Extremities: No lower extremity edema. No joint swelling. Neuro/psych: Oriented X 3. Normal speech and cognition. Chest: Chest palpation & inspection: normal inspection of the chest Resp: Effort & Inspection: no cough and labored Auscultation: clear to auscultation bilaterally Cardio: Rate: regular rate Rhythm: regular rhythm Heart sounds: S1 normal heart sound present and S2 normal heart sound present Course Reevaluation(s) Reevaluation #1: signed out to Julian BREAUX awaiting orthostatic VS and UA Time: 16:44 Medications Administered Discontinued Medications Generic Name Dose Route Start Last Admin Trade Name Freq PRN Reason Stop Dose Admin Sodium Chloride 1,000 mls @ 999 mls/hr 09/12/22 12:15 09/12/22 14:59 Ns IVCONT 09/12/22 13:15 Infused .Q1H1M KELSY Infusion Sodium Chloride 1,000 mls @ 999 mls/hr 09/12/22 15:15 09/12/22 15:47 Ns IVCONT 09/12/22 16:15 999 mls/hr .Q1H1M KELSY Administration Medical Decision Making Medical Decision Making MDM Narrative: 57 year old female with a past medical history of type two diabetes, HTN, HLD, gastroparesis, fibromyalgia, obesity, asthma, hypothyroidism, and depression?who is post op day 4 (09/09) from a hemorrhoidectomy. On 09/10/22 she presented to the ED for urinary retention, meza was placed and she was discharged. Today (09/12) she presented to urology to have meza removed and they noted her to be hypoxic and suggested she present Labs ordered including CBC CMP and BNP - workup is unremarkable aside from leukocytosis 14.7, up from 13 the other day. Chest xray was done showing no pulmonary edema or infiltrated. patient being given more orange juice to raise glucose. Glucose 72 x3. she had episode of diarrhea with some blood. rectal exam reveals ecchymosis of the perirectal skin, no active bleeding. area is tender. patient getting IVF. awaiting UA. Differential Diagnosis Differential Diagnoses: The differential diagnosis associated with the presentation includes COPD, asthma exacerbation, pneumonia, oxycodone related adverse reactions, less likely PE Admission/Observation Consideration of admission/observation: Escalation of care including admission/observation considered low BP, leukocytosis, hypoxia Lab Data MDM Lab Attestation statement: I reviewed the patient's lab results. leukocytosis 09/12/22 14:29 09/12/22 13:53 Labs: Lab Results 09/12/22 09/12/22 09/12/22 Range/Units 11:29 12:10 13:53 WBC (4.8-10.8) X10*3/uL RBC (4.20-5.50) X10*6/uL Hgb (12.0-16.0) g/dl Hct (37.0-47.0) % MCV (80.0-98.0) fL MCH (27.0-33.0) pg MCHC (31.0-35.0) g/dl RDW (11.0-16.0) % Plt Count (160-400) X10*3/uL MPV (9.4-12.3) fL Immature Gran % (Auto) (0.0-0.4) % Neut % (Auto) (45-73) % Lymph % (Auto) (20-40) % [place] % (Auto) (2-11) % Eos % (Auto) (0-4) % Baso % (Auto) (0-2) % Lymph # (Auto) (1.2-4.9) X10*3/uL [place] # (Auto) (0.1-1.2) X10*3/uL Eos # (Auto) (0.0-0.4) X10*3/uL Baso # (Auto) (0.0-0.2) X10*3/uL Abs Immat Gran (auto) (0.00-0.03) X10*3/uL Absolute Neuts (auto) (2.0-8.3) x10*3/uL Absolute Nucleated RBC (0.0-0.012) X10*3/uL Nucleated RBC % (auto) (0.0-0.2) /100WBC Smear Tech's Comments VBG pH (7.32-7.43) VBG pCO2 mmHg VBG pO2 mmHg VBG HCO3 (22-26) mmol/L VBG O2 Saturation % VBG Base Excess mmol/L Sodium 141 (135-145) mmol/L Potassium 4.3 (3.3-5.1) mmol/L Chloride 103 (96-108) mmol/L Carbon Dioxide 27 (22-29) mmol/L Anion Gap 15 (12-20) BUN 12 (9-16) mg/dL Creatinine 1.04 (0.5-1.4) mg/dL Estim Creat Clear Calc 79.3 Estimated GFR 55 POC Glucose 56 L* 72 (60-115) mg/dL Random Glucose 70 (60-115) mg/dL Lactic Acid (0.5-2.0) mmol/L Calcium 9.8 D (8.4-10.2) mg/dL Magnesium 1.9 (1.6-2.6) mg/dL Total Bilirubin 0.4 (0.0-1.0) mg/dL Direct Bilirubin 0.1 (0.0-0.5) mg/dL AST 15 (5-31) U/L ALT 11 (0-31) U/L Alkaline Phosphatase 127 H (39-117) U/L Troponin I High Sens (<3.5-17.0) ng/L B-Natriuretic Peptide (<100) pg/mL Total Protein 7.2 (6.5-8.0) g/dL Albumin 3.7 (3.5-5.0) g/dL Ethyl Alcohol mg/dL COVID-19 (ASHLEY) (Negative) COVID-19 Clin Com 09/12/22 09/12/22 09/12/22 Range/Units 13:54 13:54 14:29 WBC 14.7 H (4.8-10.8) X10*3/uL RBC 4.23 (4.20-5.50) X10*6/uL Hgb 11.0 L (12.0-16.0) g/dl Hct 37.0 (37.0-47.0) % MCV 87.5 (80.0-98.0) fL MCH 26.0 L (27.0-33.0) pg MCHC 29.7 L (31.0-35.0) g/dl RDW 16.1 H (11.0-16.0) % Plt Count 306 (160-400) X10*3/uL MPV 10.0 (9.4-12.3) fL Immature Gran % (Auto) 0.3 (0.0-0.4) % Neut % (Auto) 56.3 (45-73) % Lymph % (Auto) 34.4 (20-40) % [place] % (Auto) 6.9 (2-11) % Eos % (Auto) 1.9 (0-4) % Baso % (Auto) 0.2 (0-2) % Lymph # (Auto) 5.1 H (1.2-4.9) X10*3/uL [place] # (Auto) 1.0 (0.1-1.2) X10*3/uL Eos # (Auto) 0.3 (0.0-0.4) X10*3/uL Baso # (Auto) 0.0 (0.0-0.2) X10*3/uL Abs Immat Gran (auto) 0.05 H (0.00-0.03) X10*3/uL Absolute Neuts (auto) 8.3 (2.0-8.3) x10*3/uL Absolute Nucleated RBC 0.000 (0.0-0.012) X10*3/uL Nucleated RBC % (auto) 0.0 (0.0-0.2) /100WBC Smear Tech's Comments VERIFIED VBG pH 7.46 H (7.32-7.43) VBG pCO2 45 mmHg VBG pO2 50 mmHg VBG HCO3 32 H (22-26) mmol/L VBG O2 Saturation 84.0 % VBG Base Excess 7.9 mmol/L Sodium (135-145) mmol/L Potassium (3.3-5.1) mmol/L Chloride (96-108) mmol/L Carbon Dioxide (22-29) mmol/L Anion Gap (12-20) BUN (9-16) mg/dL Creatinine (0.5-1.4) mg/dL Estim Creat Clear Calc Estimated GFR POC Glucose 72 (60-115) mg/dL Random Glucose (60-115) mg/dL Lactic Acid (0.5-2.0) mmol/L Calcium (8.4-10.2) mg/dL Magnesium (1.6-2.6) mg/dL Total Bilirubin (0.0-1.0) mg/dL Direct Bilirubin (0.0-0.5) mg/dL AST (5-31) U/L ALT (0-31) U/L Alkaline Phosphatase (39-117) U/L Troponin I High Sens (<3.5-17.0) ng/L B-Natriuretic Peptide (<100) pg/mL Total Protein (6.5-8.0) g/dL Albumin (3.5-5.0) g/dL Ethyl Alcohol mg/dL COVID-19 (ASHLEY) (Negative) COVID-19 Clin Com 09/12/22 09/12/22 09/12/22 Range/Units 14:29 14:29 14:29 WBC (4.8-10.8) X10*3/uL RBC (4.20-5.50) X10*6/uL Hgb (12.0-16.0) g/dl Hct (37.0-47.0) % MCV (80.0-98.0) fL MCH (27.0-33.0) pg MCHC (31.0-35.0) g/dl RDW (11.0-16.0) % Plt Count (160-400) X10*3/uL MPV (9.4-12.3) fL Immature Gran % (Auto) (0.0-0.4) % Neut % (Auto) (45-73) % Lymph % (Auto) (20-40) % [place] % (Auto) (2-11) % Eos % (Auto) (0-4) % Baso % (Auto) (0-2) % Lymph # (Auto) (1.2-4.9) X10*3/uL [place] # (Auto) (0.1-1.2) X10*3/uL Eos # (Auto) (0.0-0.4) X10*3/uL Baso # (Auto) (0.0-0.2) X10*3/uL Abs Immat Gran (auto) (0.00-0.03) X10*3/uL Absolute Neuts (auto) (2.0-8.3) x10*3/uL Absolute Nucleated RBC (0.0-0.012) X10*3/uL Nucleated RBC % (auto) (0.0-0.2) /100WBC Smear Tech's Comments VBG pH (7.32-7.43) VBG pCO2 mmHg VBG pO2 mmHg VBG HCO3 (22-26) mmol/L VBG O2 Saturation % VBG Base Excess mmol/L Sodium (135-145) mmol/L Potassium (3.3-5.1) mmol/L Chloride (96-108) mmol/L Carbon Dioxide (22-29) mmol/L Anion Gap (12-20) BUN (9-16) mg/dL Creatinine (0.5-1.4) mg/dL Estim Creat Clear Calc Estimated GFR POC Glucose (60-115) mg/dL Random Glucose (60-115) mg/dL Lactic Acid (0.5-2.0) mmol/L Calcium (8.4-10.2) mg/dL Magnesium (1.6-2.6) mg/dL Total Bilirubin (0.0-1.0) mg/dL Direct Bilirubin (0.0-0.5) mg/dL AST (5-31) U/L ALT (0-31) U/L Alkaline Phosphatase (39-117) U/L Troponin I High Sens < 2.7 (<3.5-17.0) ng/L B-Natriuretic Peptide 32 (<100) pg/mL Total Protein (6.5-8.0) g/dL Albumin (3.5-5.0) g/dL Ethyl Alcohol mg/dL COVID-19 (ASHLEY) Negative (Negative) COVID-19 Clin Com See Note 09/12/22 09/12/22 09/12/22 Range/Units 14:29 14:29 15:25 WBC (4.8-10.8) X10*3/uL RBC (4.20-5.50) X10*6/uL Hgb (12.0-16.0) g/dl Hct (37.0-47.0) % MCV (80.0-98.0) fL MCH (27.0-33.0) pg MCHC (31.0-35.0) g/dl RDW (11.0-16.0) % Plt Count (160-400) X10*3/uL MPV (9.4-12.3) fL Immature Gran % (Auto) (0.0-0.4) % Neut % (Auto) (45-73) % Lymph % (Auto) (20-40) % [place] % (Auto) (2-11) % Eos % (Auto) (0-4) % Baso % (Auto) (0-2) % Lymph # (Auto) (1.2-4.9) X10*3/uL [place] # (Auto) (0.1-1.2) X10*3/uL Eos # (Auto) (0.0-0.4) X10*3/uL Baso # (Auto) (0.0-0.2) X10*3/uL Abs Immat Gran (auto) (0.00-0.03) X10*3/uL Absolute Neuts (auto) (2.0-8.3) x10*3/uL Absolute Nucleated RBC (0.0-0.012) X10*3/uL Nucleated RBC % (auto) (0.0-0.2) /100WBC Smear Tech's Comments VBG pH (7.32-7.43) VBG pCO2 mmHg VBG pO2 mmHg VBG HCO3 (22-26) mmol/L VBG O2 Saturation % VBG Base Excess mmol/L Sodium (135-145) mmol/L Potassium (3.3-5.1) mmol/L Chloride (96-108) mmol/L Carbon Dioxide (22-29) mmol/L Anion Gap (12-20) BUN (9-16) mg/dL Creatinine (0.5-1.4) mg/dL Estim Creat Clear Calc Estimated GFR POC Glucose 72 (60-115) mg/dL Random Glucose (60-115) mg/dL Lactic Acid 1.8 (0.5-2.0) mmol/L Calcium (8.4-10.2) mg/dL Magnesium (1.6-2.6) mg/dL Total Bilirubin (0.0-1.0) mg/dL Direct Bilirubin (0.0-0.5) mg/dL AST (5-31) U/L ALT (0-31) U/L Alkaline Phosphatase (39-117) U/L Troponin I High Sens (<3.5-17.0) ng/L B-Natriuretic Peptide (<100) pg/mL Total Protein (6.5-8.0) g/dL Albumin (3.5-5.0) g/dL Ethyl Alcohol < 10 mg/dL COVID-19 (ASHLEY) (Negative) COVID-19 Clin Com ABG Data ABG Results: Attestation ABG: I personally reviewed and interpreted this ABG as follows: Independent Interpretation I performed an independent interpretation of an: Plain X-Ray Interpretation: cxr clear, no pna Radiology Impression Discussion of test interpretation with radiology: I have reviewed the radiologist's reading. Radiologist Impression: ?XR/XR chest 1V IMPRESSION: *? Mild bibasilar atelectasis. *? There is no evidence of congestive heart failure: no pulmonary edema or pleural effusion External Record Review External record reviewed: Office record, Outpatient record, Prior outpatient labs and Prior outpatient radiology Tests considered The following testing was considered but not selected: CTA chest considered - less likely PE given improvement in symptoms, not tachycardic. no clinical evidence of DVT Prescription Management I considered prescription management with: Pain Medication and Antibiotic Chronic Conditions Patient?s care impacted by: Diabetes and Other (fibromyalgia, morbid obesity) Critical Care Time Critical Care Time Critical Care Time: Yes Total Critical Care Time: 39 Attestation: I have personally provided critical care time exclusive of time spent on separately billable procedures. Time includes review of lab data, radiology results, frequent bedside reassessments and monitoring for potential decompensation. Intervention performed as documented. Discharge Plan Discharge Clinical Impression: 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, Shortness of breath, Weakness Patient Disposition: Still a Patient Prescriptions: No Action metoclopramide HCl 5 mg tablet 5 mg PO BEDTIME Qty: 30 6RF (DME) lancets [TRUEplus Lancets] 33 gauge misc See Rx Instructions .ROUTE .MEDSUPPLY Qty: 120 11RF Rx Instructions: 4 times a day (DME) pen needle, diabetic [BD Usha 2nd Gen Pen Needle] 32 gauge x 5/32 needle See Rx Instructions .MEDSUPPLY Qty: 100 11RF Rx Instructions: Twice a day propranolol 80 mg tablet 80 mg PO BID 90 Days Qty: 180 3RF (DME) FreeStyle Lite Strips Strip See Rx Instructions .MEDSUPPLY Qty: 150 5RF Rx Instructions: 5 times a day Advair HFA 230-21 mcg/actuation HFA aerosol inhaler 2 puff inhalation Q12H 30 Days Qty: 1 6RF metformin 500 mg tablet 1,000 mg PO BID 90 Days Qty: 360 1RF Baqsimi 3 mg/actuation spray,non-aerosol 3 mg intranasal ONCE 30 Days Qty: 4 6RF Rx Instructions: [place] once for severe hypoglycemia when patient cannot self-treat with glucose. Afterwards turn on side. May repeat after 15 minutes if patient does not respond. Humulin R U-500 (Conc) Kwikpen 500 unit/mL (3 mL) insulin pen See Rx Instructions subcut .COMPLEX Qty: 6 5RF Rx Instructions: Inject 125 units with breakfast and 90 units with dinner subcutaneously; (DME) blood-glucose meter [FreeStyle Lite Meter] Kit See Rx Instructions .Route Qty: 1 0RF Rx Instructions: As directed furosemide 20 mg tablet 20 mg PO QAM Qty: 30 3RF Januvia 100 mg tablet 100 mg PO QAM Qty: 30 6RF lidocaine [Lidoderm] 5 % adhesive patch,medicated 1 patch topical DAILY Qty: 15 0RF Rx Instructions: leave on most painful area for up to 12 hrs levothyroxine 125 mcg tablet 1 tab PO DAILY@0600 hydroxyzine HCl 25 mg tablet 1 - 2 tab PO BEDTIME PRN (Reason: Anxiety) albuterol sulfate [ProAir HFA] 90 mcg/actuation HFA aerosol inhaler 2 puff inhalation Q4-6H PRN (Reason: asthma) nortriptyline 50 mg capsule 1 cap PO BEDTIME Rx Instructions: TAKE WITH 75 MG oxycodone-acetaminophen [Percocet] 5-325 mg tablet 1 tab PO Q4-6H PRN (Reason: pain) Qty: 30 0RF Rx Instructions: Partial Fill upon patient request. docusate sodium [Colace] 100 mg capsule 100 mg PO BID Qty: 60 2RF ibuprofen 600 mg tablet 600 mg PO Q6H PRN (Reason: pain) Qty: 30 0RF clonidine HCl 0.1 mg tablet 0.1 mg PO BEDTIME rosuvastatin [Crestor] 20 mg tablet 20 mg PO DAILY thiamine HCl (vitamin B1) 100 mg tablet 100 mg PO DAILY Rx Instructions: WITH MEAL ferrous sulfate 325 mg (65 mg iron) tablet 325 mg PO Q OTHER DAY clonazepam 1 mg tablet 1 mg PO TID PRN (Reason: Anxiety) valsartan 160 mg tablet 160 mg PO DAILY omeprazole 20 mg capsule,delayed release(DR/EC) 20 mg PO DAILY@0630 melatonin 5 mg tablet 5 - 10 mg PO BEDTIME PRN (Reason: Sleep) hydrochlorothiazide 25 mg tablet 25 mg PO DAILY cyanocobalamin (vitamin B-12) 1,000 mcg/mL solution 1,000 mcg IM [id number] aspirin 81 mg tablet,delayed release (DR/EC) 81 mg PO DAILY docusate sodium 100 mg capsule 100 mg PO BID cholecalciferol (vitamin D3) 50 mcg (2,000 unit) capsule 50 mcg PO DAILY (DME) FreeStyle Ortiz 2 Sensor Kit See Rx Instructions .Route Qty: 2 6RF Rx Instructions: As directed change every 14 days (DME) FreeStyle Ortiz 2 [place] Misc See Rx Instructions .Route Qty: 1 0RF Rx Instructions: As directed gabapentin 400 mg capsule 400 mg PO TID Qty: 270 1RF albuterol sulfate 2.5 mg /3 mL (0.083 %) solution for nebulization 2.5 mg inhalation Q4H PRN (Reason: Wheezing)
[2022-09-12] MEDS: 0.9 % Sodium Chloride 1,000 ML 999 ML IVCONT ×2 (13:49→15:47)
[2022-09-12 13:57] LABS: Glucose, Whole Blood 72 mg/dL (60-115)
[2022-09-12 14:03] LABS: VBG Base Excess 7.9 mmol/L; VBG HCO3 32 mmol/L (22-26); VBG pCO2 45 mmHg; VBG pH 7.46 (7.32-7.43); VBG pO2 50 mmHg
[2022-09-12 14:11] LABS: Venous Blood Gas Refer to POC result
[2022-09-12 14:13] LABS: Alanine Aminotransferase 11 U/L (0-31); Albumin Level 3.7 g/dL (3.5-5.0); Alkaline Phosphatase 127 U/L (39-117); Anion Gap 15 (12-20); Aspartate Amino Transferase 15 U/L (5-31); Bilirubin Direct 0.1 mg/dL (0.0-0.5); Bilirubin Total 0.4 mg/dL (0.0-1.0); Blood Urea Nitrogen 12 mg/dL (9-16); Calcium 9.8 mg/dL (8.4-10.2); Carbon Dioxide 27 mmol/L (22-29); Chloride 103 mmol/L (96-108); Creatinine Clr Calc Pharmacy 79.3; Estimated Glomerular Filt Rate 55; Glucose Random 70 mg/dL (60-115); Magnesium 1.9 mg/dL (1.6-2.6); Potassium 4.3 mmol/L (3.3-5.1); Sodium 141 mmol/L (135-145); Total Protein 7.2 g/dL (6.5-8.0)
[2022-09-12 14:38] LABS: Basophils Percent Auto 0.2 % (0-2); Eosinophils Absolute Auto 0.3 X10*3/uL (0.0-0.4); Eosinophils Percent Auto 1.9 % (0-4); Imm Gran Abs Auto 0.05 X10*3/uL (0.00-0.03); Imm Gran Pct Auto 0.3 % (0.0-0.4); Lymphocytes Absolute Auto 5.1 X10*3/uL (1.2-4.9); Lymphocytes Percent Auto 34.4 % (20-40); Mean Corpuscular HGB Conc 29.7 g/dl (31.0-35.0); Mean Corpuscular Volume 87.5 fL (80.0-98.0); Monocytes Percent Auto 6.9 % (2-11); Neutrophils Absolute Auto 8.3 x10*3/uL (2.0-8.3); Neutrophils Percent Auto 56.3 % (45-73); Platelet Count 306 X10*3/uL (160-400); Red Blood Count 4.23 X10*6/uL (4.20-5.50); Red Cell Distribution Width 16.1 % (11.0-16.0); SCAN SMEAR FLAG 1; White Blood Count 14.7 X10*3/uL (4.8-10.8)
[2022-09-12 14:40] LABS: MANUAL DIFF FLAG SCAN
[2022-09-12 14:56] LABS: COVID-19 Test Negative (Negative); IDNOW Serial# 9DB6401D
[2022-09-12 14:59] LABS: SLIDE REVIEW VERIFIED
[2022-09-12 15:00] LABS: Lactic Acid 1.8 mmol/L (0.5-2.0)
[2022-09-12 15:08] LABS: B Type Natriuretic Peptide 32 pg/mL (<100)
[2022-09-12 15:17] LABS: Ethanol < 10 mg/dL; Troponin-I High Sensitivity < 2.7 ng/L (<3.5-17.0)
[2022-09-12 15:28] LABS: Glucose, Whole Blood 72 mg/dL (60-115)
--- NOTE | 2022-09-12 15:53 | PC.NURSE ---
Bladder scan completed - 100ml in bladder post urinary catheter removal at PCP office
--- NOTE | 2022-09-12 17:35 | PC.NURSE ---
pt face flushed, 99.1 temp, pt requesting meza cath re-insertion at this time as pt feels the need to urinate but cannot. pt has had multiple episodes of diarrhea and c/o abdominal pain 10/09. Radha MOREJON aware. reinforced pt condition to Julian MOREJON upon shift change. new order placed for CT repeat bladder scan with 600cc urine in bladder. per Julian MOREJON offer pt choice to continue trying to urinate or reinsert meza. pt desires to reinsert meza. Julian MOREJON aware
[2022-09-12 19:08] LABS: Appearance Urine Clear; Color Urine Yellow; Glucose Urine UA Negative (Negative); Leukocyte Esterase Urine Trace (Negative); Nitrite Urine Negative (Negative); PH 5.5 (5.0-9.0); Specific Gravity - Urine <= 1.005 (1.005-1.025); UMIC TRIGGER UACC YES; Urine Blood Small (1+) (Negative); Urine Ketones Negative (Negative); Urine Protein Negative (Neg-Trace)
[2022-09-12 19:15] LABS: Amphetamine Screen Urine Not Detected (Not Detect); Barbiturates, Urine Not Detected (Not Detect); Benzodiazepines Screen Urine Not Detected (Not Detect); Cannabinoid Screen Urine Not Detected (Not Detect); Cocaine Screen Urine Not Detected (Not Detect); Fentanyl, urine POSITIVE (Not Detect); Opiate Screen Urine Not Detected (Not Detect); Phencyclidine Screen Urine Not Detected (Not Detect)
[2022-09-12] MEDS: iohexoL 350 MG/ML 100 ML INFUS..BTL IV (19:17)
[2022-09-12 19:20] LABS: Bacteria Urine None Seen (None Seen); RBC Urine 0-2 /HPF (0-2); Squamous Epithelial Cell Urine 0-2 /HPF (0-2); WBC Urine 0-5 /HPF (0-5)
[2022-09-12 19:31] LABS: Glucose, Whole Blood 88 mg/dL (60-115)
[2022-09-12] MEDS: 0.9 % Sodium Chloride 1,000 ML 999 ML IV (21:45)
--- NOTE | 2022-09-12 22:00 | PC.NURSE ---
late entry- this rn made samantha benito aware of bp 99/45 map 66. orders placed for IVF
--- NOTE | 2022-09-12 23:11 | P.HPHOSP_ITS ---
History of Present Illness Date of Service: 09/12/22 Chief Complaint: Shortness of breath Romansh-speaking only, history is obtained with the help of an client success specialist 57-year-old female past medical history of GERD, diabetes, DINA on CPAP, hypothyroidism, depression, anxiety, dyslipidemia, HTN, comes into the hospital after found to be hypoxic at follow-up appointment with her doctor. Patient herself reports shortness of breath, denies any cough, no sputum production, reports no abdominal pain nausea or vomiting, no diarrhea constipation. She recently underwent hemorrhoidectomy on 09/09, with no complications. Denies any fever or chills, no urinary symptoms. On arrival to the ED patient noted to be 87% on room air, Labs reviewed, showed a WBC count of 14.7 that resolved on repeat labs, venous of pH 7.46, CO2 of 45, labs otherwise unremarkable, COVID-19 negative, influenza and RSV negative Chest CT angiogram negative for PE, or pneumonia but shows linear densities at both bases likely atelectasis no abnormal pulmonary nodules or masses are appreciated. Review of Systems Review of Systems: Yes all other systems are reviewed and are negative [facility] Medical History Anemia Anxiety Asthma Bilateral pneumonia Bleeding hemorrhoids Chest pain Chronic pain syndrome Coarse tremors Dental crowns present Depression Depression Diabetes 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, uncontrolled Diabetic nephropathy associated with type 2 diabetes mellitus Dyslipidemia Family history of colon cancer Fibromyalgia Gastroparesis Genu valgum GERD (gastroesophageal reflux disease) Hemorrhoids HTN (hypertension) Hyperlipidemia 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 due to insulin Hypothyroidism Inappropriate sinus tachycardia Insomnia detention (current) use of insulin Low back pain Lumbar spondylosis Migraine Morbid obesity Obstructive sleep apnea on CPAP Palpitations Paranoia (psychosis) Patella-femoral syndrome Patellofemoral arthritis Respiratory failure Sacroiliitis Scoliosis of thoracolumbar spine Spondylosis of lumbar region without myelopathy or radiculopathy Stress incontinence Tubular adenoma Vitamin D deficiency Family History Father Stomach cancer Mother Heart disease HTN (hypertension) Diabetes Son No problems noted. Paternal Aunt Stomach cancer Sister Stomach cancer Sister Uterine cancer Surgical History H/O esophagogastroduodenoscopy History of arthroscopy of right knee History of bilateral carpal tunnel release History of bladder surgery History of colonoscopy History of surgery History of tubal ligation Hx of section Hx of tonsillectomy Social History Household Members: Family Household Members Other:: adult son Housing: Apartment Are you a primary career manager to a significant other at home: No Do you presently have visiting nurse or other home services: Yes ([employer] daily) Alcohol intake: never Patient Tobacco Use Status: Never used Tobacco Smoked in Last 30 Days: No Second Hand Smoke Exposure: No Use of substances other than those prescribed or required for medical reasons: No Advance Directives: No Advance Directives Information Provided: No service: No Current occupational status: disabled Current occupation: lt handed Sexual orientation: Straight/Heterosexual Gender identity: Female Meds Allergies Allergy/AdvReac Type Severity Reaction Status Date / Time No Known Allergies Allergy Verified 09/09/22 07:18 [No Known Allergies*] Active Medications: Current Medications Acetaminophen (Acetaminophen 325 Mg Tablet) 650 mg PO Q6H PRN PRN Reason: Pain, Mild (Pain Scale 1-3) Docusate Sodium (Docusate Sodium 100 Mg Capsule) 100 mg PO DAILY PRN PRN Reason: Constipation Enoxaparin Sodium (Enoxaparin Sodium 40 Mg/0.4 Ml Syringe) 40 mg SUBCUT Q24H KELSY Nitrofurantoin Macrocrystals (Nitrofurantoin Monohyd/M-Cryst 100 Mg Capsule) 100 mg PO Q12H KELSY Ondansetron HCl (Ondansetron Hcl 4 Mg/2 Ml Vial) 4 mg IVPUSH Q8H PRN PRN Reason: Nausea and Vomiting Sodium Chloride (0.9 % Sodium Chloride Flush 3 Ml Syringe) 3 ml IVFLUSH QSHIFT KELSY Home Medications Medication Instructions Recorded Confirmed Last Taken Type clonidine HCl 0.1 mg tablet 0.1 mg PO BEDTIME 11/30/19 09/03/22 11/09/21 History ferrous sulfate 325 mg (65 mg 325 mg PO Q OTHER DAY 11/30/19 09/03/22 07/04/22 History iron) tablet rosuvastatin 20 mg tablet (Crestor) 20 mg PO DAILY 11/30/19 09/03/22 11/10/21 History thiamine HCl (vitamin B1) 100 mg 100 mg PO DAILY 11/30/19 09/03/22 11/10/21 History tablet aspirin 81 mg tablet,delayed 81 mg PO DAILY 01/01/21 09/03/22 09/02/22 History release cyanocobalamin (vitamin B-12) 1,000 mcg IM [id number] 01/01/21 09/03/22 Unknown History 1,000 mcg/mL injection solution hydrochlorothiazide 25 mg tablet 25 mg PO DAILY 01/01/21 09/03/22 11/10/21 History melatonin 5 mg tablet 5 - 10 mg PO BEDTIME PRN Sleep 01/01/21 09/03/22 11/09/21 History clonazepam 1 mg tablet 1 mg PO TID PRN Anxiety 05/07/21 09/03/22 09/09/22 History omeprazole 20 mg capsule,delayed 20 mg PO DAILY@0630 05/07/21 09/03/22 09/09/22 History release valsartan 160 mg tablet 160 mg PO DAILY 05/07/21 09/03/22 11/10/21 History cholecalciferol (vitamin D3) 50 50 mcg PO DAILY 07/12/21 09/03/22 11/10/21 History mcg (2,000 unit) capsule docusate sodium 100 mg capsule 100 mg PO BID 09/26/21 09/03/22 11/10/21 History albuterol sulfate 90 mcg/actuation 2 puff inhalation Q4-6H PRN asthma 10/23/21 09/03/22 11/10/21 History aerosol inhaler (ProAir HFA) hydroxyzine HCl 25 mg tablet 1 - 2 tab PO BEDTIME PRN Anxiety 10/23/21 09/03/22 11/09/21 History levothyroxine 125 mcg tablet 1 tab PO DAILY@0600 10/23/21 09/03/22 09/09/22 History nortriptyline 50 mg capsule 1 cap PO BEDTIME 10/23/21 09/03/22 11/09/21 History albuterol sulfate 2.5 mg/3 mL 2.5 mg inhalation Q4H PRN Wheezing 12/04/21 09/03/22 Unknown History (0.083 %) solution for nebulization Physical Exam Vital Signs and Narrative: Vital Signs: Last Vital Signs Temp 99.1 F 09/12/22 21:14 Pulse 89 09/12/22 21:14 Resp 24 H 09/12/22 21:14 BP 99/45 L 09/12/22 21:14 Pulse Ox 94 09/12/22 21:14 O2 Del Method Nasal Cannula 09/12/22 21:14 O2 Flow Rate 2 09/12/22 21:14 BMI result Body Mass Index 41.5 Const: General: cooperative and no acute distress Orientation/consciousness: patient oriented x3 Eyes: General: appearance normal, both eyes and all related structures Resp: Other: Obese, Appears dyspnea could Effort & Inspection: normal respiratory effort Cardio: Rate: regular rate Rhythm: regular rhythm GI: Palpation (GI): Soft to palpation Auscultation: normal bowel sounds Skin: General skin exam: no rashes or lesions noted Neuro: General: patient oriented x3 Cognition (Neuro): normal cognition Extrem: General: Yes normal to inspection and Yes no pedal edema Results Labs 09/12/22 14:29 09/12/22 13:53 Labs: Laboratory Results - last 24 hr 09/12/22 09/12/22 09/12/22 11:29 12:10 13:53 MCV MCH MCHC RDW Plt Count MPV Immature Gran % (Auto) Neut % (Auto) Lymph % (Auto) [place] % (Auto) Eos % (Auto) Baso % (Auto) Lymph # (Auto) [place] # (Auto) Eos # (Auto) Baso # (Auto) Abs Immat Gran (auto) Absolute Neuts (auto) Absolute Nucleated RBC Nucleated RBC % (auto) Smear Tech's Comments VBG pH VBG pCO2 VBG pO2 VBG HCO3 VBG O2 Saturation VBG Base Excess Anion Gap 15 Estim Creat Clear Calc 79.3 Estimated GFR 55 POC Glucose 56 L* 72 Random Glucose 70 Lactic Acid Calcium 9.8 D Magnesium 1.9 Total Bilirubin 0.4 Direct Bilirubin 0.1 AST 15 ALT 11 Alkaline Phosphatase 127 H Troponin I High Sens B-Natriuretic Peptide Total Protein 7.2 Albumin 3.7 Urine Color Urine Appearance Urine pH Ur Specific [place] Urine Protein Urine Glucose (UA) Urine Ketones Urine Blood Urine Nitrite Ur Leukocyte Esterase Urine RBC Urine WBC Ur Squamous Epith Cells Urine Bacteria Hyaline Casts Urine Opiates Screen Urine Fentanyl Screen Ur Barbiturates Screen Ur Phencyclidine Scrn Ur Amphetamines Screen U Benzodiazepines Scrn Urine Cocaine Screen U Marijuana (THC) Screen Ethyl Alcohol COVID-19 ([facility]) COVID-19 Clin Com 09/12/22 09/12/22 09/12/22 13:54 13:54 14:29 MCV 87.5 MCH 26.0 L MCHC 29.7 L RDW 16.1 H Plt Count 306 MPV 10.0 Immature Gran % (Auto) 0.3 Neut % (Auto) 56.3 Lymph % (Auto) 34.4 [place] % (Auto) 6.9 Eos % (Auto) 1.9 Baso % (Auto) 0.2 Lymph # (Auto) 5.1 H [place] # (Auto) 1.0 Eos # (Auto) 0.3 Baso # (Auto) 0.0 Abs Immat Gran (auto) 0.05 H Absolute Neuts (auto) 8.3 Absolute Nucleated RBC 0.000 Nucleated RBC % (auto) 0.0 Smear Tech's Comments VERIFIED VBG pH 7.46 H VBG pCO2 45 VBG pO2 50 VBG HCO3 32 H VBG O2 Saturation 84.0 VBG Base Excess 7.9 Anion Gap Estim Creat Clear Calc Estimated GFR POC Glucose 72 Random Glucose Lactic Acid Calcium Magnesium Total Bilirubin Direct Bilirubin AST ALT Alkaline Phosphatase Troponin I High Sens B-Natriuretic Peptide Total Protein Albumin Urine Color Urine Appearance Urine pH Ur Specific [place] Urine Protein Urine Glucose (UA) Urine Ketones Urine Blood Urine Nitrite Ur Leukocyte Esterase Urine RBC Urine WBC Ur Squamous Epith Cells Urine Bacteria Hyaline Casts Urine Opiates Screen Urine Fentanyl Screen Ur Barbiturates Screen Ur Phencyclidine Scrn Ur Amphetamines Screen U Benzodiazepines Scrn Urine Cocaine Screen U Marijuana (THC) Screen Ethyl Alcohol COVID-19 ([facility]LEY) COVID-19 Clin Com 09/12/22 09/12/22 09/12/22 14:29 14:29 14:29 MCV MCH MCHC RDW Plt Count MPV Immature Gran % (Auto) Neut % (Auto) Lymph % (Auto) [place] % (Auto) Eos % (Auto) Baso % (Auto) Lymph # (Auto) [place] # (Auto) Eos # (Auto) Baso # (Auto) Abs Immat Gran (auto) Absolute Neuts (auto) Absolute Nucleated RBC Nucleated RBC % (auto) Smear Tech's Comments VBG pH VBG pCO2 VBG pO2 VBG HCO3 VBG O2 Saturation VBG Base Excess Anion Gap Estim Creat Clear Calc Estimated GFR POC Glucose Random Glucose Lactic Acid Calcium Magnesium Total Bilirubin Direct Bilirubin AST ALT Alkaline Phosphatase Troponin I High Sens < 2.7 B-Natriuretic Peptide 32 Total Protein Albumin Urine Color Urine Appearance Urine pH Ur Specific [place] Urine Protein Urine Glucose (UA) Urine Ketones Urine Blood Urine Nitrite Ur Leukocyte Esterase Urine RBC Urine WBC Ur Squamous Epith Cells Urine Bacteria Hyaline Casts Urine Opiates Screen Urine Fentanyl Screen Ur Barbiturates Screen Ur Phencyclidine Scrn Ur Amphetamines Screen U Benzodiazepines Scrn Urine Cocaine Screen U Marijuana (THC) Screen Ethyl Alcohol COVID-19 ([facility]) Negative COVID-19 Clin Com See Note 09/12/22 09/12/22 09/12/22 14:29 14:29 15:25 MCV MCH MCHC RDW Plt Count MPV Immature Gran % (Auto) Neut % (Auto) Lymph % (Auto) [place] % (Auto) Eos % (Auto) Baso % (Auto) Lymph # (Auto) [place] # (Auto) Eos # (Auto) Baso # (Auto) Abs Immat Gran (auto) Absolute Neuts (auto) Absolute Nucleated RBC Nucleated RBC % (auto) Smear Tech's Comments VBG pH VBG pCO2 VBG pO2 VBG HCO3 VBG O2 Saturation VBG Base Excess Anion Gap Estim Creat Clear Calc Estimated GFR POC Glucose 72 Random Glucose Lactic Acid 1.8 Calcium Magnesium Total Bilirubin Direct Bilirubin AST ALT Alkaline Phosphatase Troponin I High Sens B-Natriuretic Peptide Total Protein Albumin Urine Color Urine Appearance Urine pH Ur Specific [place] Urine Protein Urine Glucose (UA) Urine Ketones Urine Blood Urine Nitrite Ur Leukocyte Esterase Urine RBC Urine WBC Ur Squamous Epith Cells Urine Bacteria Hyaline Casts Urine Opiates Screen Urine Fentanyl Screen Ur Barbiturates Screen Ur Phencyclidine Scrn Ur Amphetamines Screen U Benzodiazepines Scrn Urine Cocaine Screen U Marijuana (THC) Screen Ethyl Alcohol < 10 COVID-19 ([facility]) COVID-19 Clin Com 09/12/22 09/12/22 09/12/22 18:57 18:57 19:25 MCV MCH MCHC RDW Plt Count MPV Immature Gran % (Auto) Neut % (Auto) Lymph % (Auto) [place] % (Auto) Eos % (Auto) Baso % (Auto) Lymph # (Auto) [place] # (Auto) Eos # (Auto) Baso # (Auto) Abs Immat Gran (auto) Absolute Neuts (auto) Absolute Nucleated RBC Nucleated RBC % (auto) Smear Tech's Comments VBG pH VBG pCO2 VBG pO2 VBG HCO3 VBG O2 Saturation VBG Base Excess Anion Gap Estim Creat Clear Calc Estimated GFR POC Glucose 88 Random Glucose Lactic Acid Calcium Magnesium Total Bilirubin Direct Bilirubin AST ALT Alkaline Phosphatase Troponin I High Sens B-Natriuretic Peptide Total Protein Albumin Urine Color Yellow Urine Appearance Clear Urine pH 5.5 Ur Specific [place] <= 1.005 Urine Protein Negative Urine Glucose (UA) Negative Urine Ketones Negative Urine Blood Small (1+) H Urine Nitrite Negative Ur Leukocyte Esterase Trace H Urine RBC 0-2 Urine WBC 0-5 Ur Squamous Epith Cells 0-2 Urine Bacteria None Seen Hyaline Casts 3-5 Urine Opiates Screen Not Detected Urine Fentanyl Screen POSITIVE H Ur Barbiturates Screen Not Detected Ur Phencyclidine Scrn Not Detected Ur Amphetamines Screen Not Detected U Benzodiazepines Scrn Not Detected Urine Cocaine Screen Not Detected U Marijuana (THC) Screen Not Detected Ethyl Alcohol COVID-19 ([facility]) COVID-19 Clin Com Imaging Radiologist's Impressions: Impressions Chest X-Ray 09/12/22 13:20 IMPRESSION: * Mild bibasilar atelectasis. * There is no evidence of congestive heart failure: no pulmonary edema or pleural effusion. Abdomen/Pelvis CT 09/12/22 19:18 IMPRESSION: No evidence for acute or chronic pulmonary embolism.. EXAMINATION: CT ABDOMEN AND PELVIS WITH CONTRAST CLINICAL INFORMATION: Reason for Exam pain COMPARISON: Baseline including 09/10/2022 TECHNIQUE: Multidetector volumetric imaging was performed from the superior aspect of the liver through the pubic symphysis following administration of 85 mL Omnipaque Omnipaque 350 intravenous contrast. Sagittal and coronal reformatted images were obtained on the technologist workstation.. This CT examination was performed using dose optimization techniques as appropriate, variously including the following: *Automated exposure control *Adjustment of mA and/or kV according to patient size (this includes techniques or standardized protocols for targeted exams where dose is matched to indication/reason for exam; i.e. extremities or head) *Use of iterative reconstruction technique DLP: 1098 mGy-cm FINDINGS: LUNG BASES: The visualized lung bases are unremarkable. LIVER, GALLBLADDER, AND BILIARY TREE: The liver is slightly nodular in morphology suggesting cirrhosis. No hyperenhancing lesion. No focal hepatic lesion or biliary ductal dilatation is present. The gallbladder is unremarkable with no evidence of radiopaque gallstones, gallbladder wall thickening, or obvious pericholecystic inflammatory changes. PANCREAS: Unremarkable. SPLEEN: Unremarkable. ADRENAL GLANDS: Unremarkable. KIDNEYS AND URETERS: The kidneys are normal in size, shape, and attenuation. No hydronephrosis, hydroureter, or calculi seen. No perinephric stranding. BLADDER: Unremarkable. GASTROINTESTINAL TRACT: The small and large bowel are unremarkable. The appendix is unremarkable. ABDOMINAL WALL: No significant hernia is appreciated. LYMPHOVASCULAR STRUCTURES: No lymphadenopathy. The aorta is unremarkable. PELVIC VISCERA: Unremarkable. OSSEOUS STRUCTURES: Unremarkable. IMPRESSION: 1. Likely early cirrhotic hepatic morphology. 2. No acute findings. Chest CTA 09/12/22 19:18 IMPRESSION: No evidence for acute or chronic pulmonary embolism.. EXAMINATION: CT ABDOMEN AND PELVIS WITH CONTRAST CLINICAL INFORMATION: Reason for Exam pain COMPARISON: Baseline including 09/10/2022 TECHNIQUE: Multidetector volumetric imaging was performed from the superior aspect of the liver through the pubic symphysis following administration of 85 mL Omnipaque Omnipaque 350 intravenous contrast. Sagittal and coronal reformatted images were obtained on the technologist workstation.. This CT examination was performed using dose optimization techniques as appropriate, variously including the following: *Automated exposure control *Adjustment of mA and/or kV according to patient size (this includes techniques or standardized protocols for targeted exams where dose is matched to indication/reason for exam; i.e. extremities or head) *Use of iterative reconstruction technique DLP: 1098 mGy-cm FINDINGS: LUNG BASES: The visualized lung bases are unremarkable. LIVER, GALLBLADDER, AND BILIARY TREE: The liver is slightly nodular in morphology suggesting cirrhosis. No hyperenhancing lesion. No focal hepatic lesion or biliary ductal dilatation is present. The gallbladder is unremarkable with no evidence of radiopaque gallstones, gallbladder wall thickening, or obvious pericholecystic inflammatory changes. PANCREAS: Unremarkable. SPLEEN: Unremarkable. ADRENAL GLANDS: Unremarkable. KIDNEYS AND URETERS: The kidneys are normal in size, shape, and attenuation. No hydronephrosis, hydroureter, or calculi seen. No perinephric stranding. BLADDER: Unremarkable. GASTROINTESTINAL TRACT: The small and large bowel are unremarkable. The appendix is unremarkable. ABDOMINAL WALL: No significant hernia is appreciated. LYMPHOVASCULAR STRUCTURES: No lymphadenopathy. The aorta is unremarkable. PELVIC VISCERA: Unremarkable. OSSEOUS STRUCTURES: Unremarkable. IMPRESSION: 1. Likely early cirrhotic hepatic morphology. 2. No acute findings. Assessment and Plan (1) SOB (shortness of breath) on exertion: Status: Acute (2) Hypoxia: Status: Acute Plan 57-year-old female past medical history of hypertension diabetes sleep apnea on CPAP, obesity, comes into the hospital with noted hypoxia # acute hypoxic respiratory failure -likely secondary to atelectasis in setting of recent surgery as well as complicated by obesity and sleep apnea - gases show no CO2 retention - this time will continue oxygen supplementation, try to wean off as tolerated, - incentive spirometry - evaluate need for home oxygen prior to discharge # hemorrhoidectomy - no complications - follow-up patient's surgery # hypertension - stable - continue home antihypertensives # diabetes - continue home insulin - low-dose sliding scale insulin - diabetic diet # hypothyroidism - continue levothyroxine # hyperlipidemia - continue statin DVT prophylaxis: Early ambulation/Lovenox Time Spent With Patient Time: Total time managing care of this patient today ____ minutes. Quality Stroke Does the patient have a stroke diagnosis?: No VTE Prior VTE?: No VTE Risk Level:: Medical - moderate - high VTE Device Contraindication: Treatment Not Indicated VTE Drug Contraindication: N/A - Med Ordered
[2022-09-13] MEDS: Nitrofurantoin Monohyd/M-Cryst 100 MG CAPSULE PO (00:08)
[2022-09-13] MEDS: Enoxaparin Sodium 40 MG/0.4 ML SYRINGE SUBCUT (00:08)
[2022-09-13 00:10] LABS: Influenza A PCR NEGATIVE (Negative); Influenza B PCR NEGATIVE (Negative); Resp Syncy Virus RNA Qual PCR NEGATIVE (Negative); SARS COV2 PCR INHOUSE NEGATIVE (Negative)
[2022-09-13 00:11] VITALS: BP 110/71; PULSE 97; RESP 18; O2SAT 96
[2022-09-13 03:09] VITALS: BP 139/75; PULSE 82; RESP 23; TEMP 37.3; O2SAT 95
[2022-09-13 05:31] LABS: Glucose, Whole Blood 154 mg/dL (60-115)
[2022-09-13 06:00] VITALS: BP 110/62; PULSE 87; RESP 27; TEMP 37.2; O2SAT 96
[2022-09-13 06:07] LABS: MANUAL DIFF FLAG NO
[2022-09-13 06:08] LABS: Basophils Percent Auto 0.2 % (0-2); Eosinophils Absolute Auto 0.2 X10*3/uL (0.0-0.4); Eosinophils Percent Auto 2.2 % (0-4); Hematocrit 33.5 % (37.0-47.0); Hemoglobin 10.1 g/dl (12.0-16.0); Imm Gran Abs Auto 0.02 X10*3/uL (0.00-0.03); Imm Gran Pct Auto 0.2 % (0.0-0.4); Lymphocytes Absolute Auto 3.1 X10*3/uL (1.2-4.9); Lymphocytes Percent Auto 31.8 % (20-40); Mean Corpuscular HGB Conc 30.1 g/dl (31.0-35.0); Mean Corpuscular Hemoglobin 26.3 pg (27.0-33.0); Mean Corpuscular Volume 87.2 fL (80.0-98.0); Mean Platelet Volume 10.2 fL (9.4-12.3); Monocytes Absolute Auto 0.7 X10*3/uL (0.1-1.2); Monocytes Percent Auto 7.2 % (2-11); Neutrophils Absolute Auto 5.6 x10*3/uL (2.0-8.3); Neutrophils Percent Auto 58.4 % (45-73); Platelet Count 249 X10*3/uL (160-400); Red Blood Count 3.84 X10*6/uL (4.20-5.50); Red Cell Distribution Width 16.2 % (11.0-16.0); White Blood Count 9.6 X10*3/uL (4.8-10.8)
[2022-09-13 06:25] LABS: Anion Gap 14 (12-20); Blood Urea Nitrogen 6 mg/dL (9-16); Calcium 9.6 mg/dL (8.4-10.2); Carbon Dioxide 28 mmol/L (22-29); Chloride 105 mmol/L (96-108); Creatinine Clr Calc Pharmacy 142.3; Estimated Glomerular Filt Rate > 60; Glucose Random 164 mg/dL (60-115); Potassium 3.7 mmol/L (3.3-5.1); Sodium 143 mmol/L (135-145)
--- NOTE | 2022-09-13 06:36 | PC.NURSE ---
med rec completed by this rn
[2022-09-13 07:18] LABS: Glucose, Whole Blood 161 mg/dL (60-115)
[2022-09-13] MEDS: Aspirin Enteric Coated 81 MG TABLET.DR PO (08:03)
[2022-09-13] MEDS: Insulin Lispro 100 UNIT/ML 3 ML VIAL SUBCUT (08:03)
[2022-09-13 08:41] VITALS: PULSE 94; RESP 14; O2SAT 98
--- NOTE | 2022-09-13 08:41 | PC.NURSE ---
Addendum entered by John Ferrell 09/13/22 08:44: lung sounds clear. pt speaking in full clear sentences. Original Note: pt axox4, VSS, respirations even and unlabored, sats 96-98% NC 2L, NSR on monitor 90 bpm, skin WPD. pt denies SOB at this time. pt resting in stretcher, call sandoval within reach, denies questions/concerns at this time.
--- NOTE | 2022-09-13 08:46 | PHA.MEDREC ---
Pharmacy Consult ? Medication Reconciliation Pharmacy has completed the medication reconciliation.
--- NOTE | 2022-09-13 09:06 | PC.NURSE ---
dr. tidwell at bedside; weaning off o2, sats 94% on RA.
--- NOTE | 2022-09-13 10:23 | P.DS_ITS ---
DS: Providers Provider Date of Service: 09/13/22 Date of admission: 09/12/22 23:05 Primary care physician: [facility] DS: Diagnosis Discharge Diagnosis (1) SOB (shortness of breath) on exertion: Status: Acute (2) Hypoxia: Status: Acute DS: Summary Hospital Course Hospital Course: Date of Service: 09/12/22 Chief Complaint: Shortness of breath Thai-speaking only, history is obtained with the help of an painter barrel ?57-year-old female past medical history of GERD, diabetes, DINA on CPAP, hypothyroidism, depression, anxiety, dyslipidemia, HTN, comes into the hospital after found to be hypoxic at follow-up appointment with her doctor.? Patient herself reports shortness of breath, denies any cough, no sputum production, reports no abdominal pain nausea or vomiting, no diarrhea constipation.? She recently underwent hemorrhoidectomy on 09/09, with no complications.? Denies any fever or chills, no urinary symptoms.? On arrival to the ED patient noted to be 87% on room air, Labs reviewed, showed a WBC count of 14.7 that resolved on repeat labs, venous of pH 7.46, CO2 of 45, labs otherwise unremarkable, COVID-19 negative, influenza and RSV negative Chest CT angiogram negative for PE, or pneumonia but shows linear densities at both bases likely atelectasis no abnormal pulmonary nodules or masses are appreciated. Hospital course: 57-year-old female past medical history of hypertension diabetes sleep apnea on CPAP, obesity, comes into the hospital with noted hypoxia # acute hypoxic respiratory failure -likely secondary to atelectasis in setting of recent surgery as well as complicated by obesity and sleep apnea, gases show no CO2 retention, patient placed on incentive spirometry oxygenation improved and remains stable at 94- 95% on room air, therefore patient is being discharged home. # hemorrhoidectomy recommend to follow postsurgical care as per General surgery recommendation. # hypertension- stable, continue home antihypertensives # 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 with hx of diabetes,- decreased dose of insulin, cont. diabetic diet. # hypothyroidism- continue levothyroxine # hyperlipidemia- continue statin # obesity recommend low-calorie diet and exercise ? Time Spent with Patient Time attestation: Total time managing care of this patient today ____ minutes. Discharge coordination time: Greater than 30 minutes Quality: Safe Use of Opioids Does Pt have an Active Cancer Diagnosis on the Problem List?: No Quality: Stroke Does the patient have a stroke diagnosis?: No Physical Exam Vital Signs: Vital Signs: Last Vital Signs Temp 99.0 F 09/13/22 06:00 Pulse 94 09/13/22 08:41 Resp 14 09/13/22 08:41 BP 110/62 09/13/22 06:00 Pulse Ox 98 09/13/22 08:41 O2 Del Method Nasal Cannula 09/13/22 08:41 O2 Flow Rate 2 09/13/22 08:41 BMI result Body Mass Index 41.5 Const: Other: General awake alert x3, in no acute distress. Neck supple, no JVD. CVS regular rate rhythm, Respiratory lungs clear to auscultation, no respiratory distress, no wheeze, no rhonchi. Gastrointestinal abdomen soft, nontender, bowel sounds audible, no guarding , no rigidity. Extremities no edema. Neuro nonfocal . Skin no rash Neuro appropriate affect DS: Data Data Completed and Pending Completed studies during hospitalization [Text1]: Procedures Assistance with Respiratory Ventilation, Less than 24 Consecutive Hours, Continuous Positive Airway Pressure (10/23/21) Labs on day of discharge: Laboratory Results - last 24 hr 09/12/22 09/12/22 09/12/22 11:29 12:10 13:53 WBC RBC Hgb Hct MCV MCH MCHC RDW Plt Count MPV Immature Gran % (Auto) Neut % (Auto) Lymph % (Auto) [place] % (Auto) Eos % (Auto) Baso % (Auto) Lymph # (Auto) [place] # (Auto) Eos # (Auto) Baso # (Auto) Abs Immat Gran (auto) Absolute Neuts (auto) Absolute Nucleated RBC Nucleated RBC % (auto) Smear Tech's Comments VBG pH VBG pCO2 VBG pO2 VBG HCO3 VBG O2 Saturation VBG Base Excess Sodium 141 Potassium 4.3 Chloride 103 Carbon Dioxide 27 Anion Gap 15 BUN 12 Creatinine 1.04 Estim Creat Clear Calc 79.3 Estimated GFR 55 POC Glucose 56 L* 72 Random Glucose 70 Lactic Acid Calcium 9.8 D Magnesium 1.9 Total Bilirubin 0.4 Direct Bilirubin 0.1 AST 15 ALT 11 Alkaline Phosphatase 127 H Troponin I High Sens B-Natriuretic Peptide Total Protein 7.2 Albumin 3.7 Urine Color Urine Appearance Urine pH Ur Specific [place] Urine Protein Urine Glucose (UA) Urine Ketones Urine Blood Urine Nitrite Ur Leukocyte Esterase Urine RBC Urine WBC Ur Squamous Epith Cells Urine Bacteria Hyaline Casts Urine Opiates Screen Urine Fentanyl Screen Ur Barbiturates Screen Ur Phencyclidine Scrn Ur Amphetamines Screen U Benzodiazepines Scrn Urine Cocaine Screen U Marijuana (THC) Screen Ethyl Alcohol COVID-19 ([facility]) COVID-19 Clin Com Influenza Type A (PCR) Influenza Type B (PCR) RSV RNA Qual (PCR) SARS-CoV-2 RNA (RT-PCR) 09/12/22 09/12/22 09/12/22 13:54 13:54 14:29 WBC 14.7 H RBC 4.23 Hgb 11.0 L Hct 37.0 MCV 87.5 MCH 26.0 L MCHC 29.7 L RDW 16.1 H Plt Count 306 MPV 10.0 Immature Gran % (Auto) 0.3 Neut % (Auto) 56.3 Lymph % (Auto) 34.4 [place] % (Auto) 6.9 Eos % (Auto) 1.9 Baso % (Auto) 0.2 Lymph # (Auto) 5.1 H [place] # (Auto) 1.0 Eos # (Auto) 0.3 Baso # (Auto) 0.0 Abs Immat Gran (auto) 0.05 H Absolute Neuts (auto) 8.3 Absolute Nucleated RBC 0.000 Nucleated RBC % (auto) 0.0 Smear Tech's Comments VERIFIED VBG pH 7.46 H VBG pCO2 45 VBG pO2 50 VBG HCO3 32 H VBG O2 Saturation 84.0 VBG Base Excess 7.9 Sodium Potassium Chloride Carbon Dioxide Anion Gap BUN Creatinine Estim Creat Clear Calc Estimated GFR POC Glucose 72 Random Glucose Lactic Acid Calcium Magnesium Total Bilirubin Direct Bilirubin AST ALT Alkaline Phosphatase Troponin I High Sens B-Natriuretic Peptide Total Protein Albumin Urine Color Urine Appearance Urine pH Ur Specific [place] Urine Protein Urine Glucose (UA) Urine Ketones Urine Blood Urine Nitrite Ur Leukocyte Esterase Urine RBC Urine WBC Ur Squamous Epith Cells Urine Bacteria Hyaline Casts Urine Opiates Screen Urine Fentanyl Screen Ur Barbiturates Screen Ur Phencyclidine Scrn Ur Amphetamines Screen U Benzodiazepines Scrn Urine Cocaine Screen U Marijuana (THC) Screen Ethyl Alcohol COVID-19 ([facility]) COVID-19 Clin Com Influenza Type A (PCR) Influenza Type B (PCR) RSV RNA Qual (PCR) SARS-CoV-2 RNA (RT-PCR) 09/12/22 09/12/22 09/12/22 14:29 14:29 14:29 WBC RBC Hgb Hct MCV MCH MCHC RDW Plt Count MPV Immature Gran % (Auto) Neut % (Auto) Lymph % (Auto) [place] % (Auto) Eos % (Auto) Baso % (Auto) Lymph # (Auto) [place] # (Auto) Eos # (Auto) Baso # (Auto) Abs Immat Gran (auto) Absolute Neuts (auto) Absolute Nucleated RBC Nucleated RBC % (auto) Smear Tech's Comments VBG pH VBG pCO2 VBG pO2 VBG HCO3 VBG O2 Saturation VBG Base Excess Sodium Potassium Chloride Carbon Dioxide Anion Gap BUN Creatinine Estim Creat Clear Calc Estimated GFR POC Glucose Random Glucose Lactic Acid Calcium Magnesium Total Bilirubin Direct Bilirubin AST ALT Alkaline Phosphatase Troponin I High Sens < 2.7 B-Natriuretic Peptide 32 Total Protein Albumin Urine Color Urine Appearance Urine pH Ur Specific [place] Urine Protein Urine Glucose (UA) Urine Ketones Urine Blood Urine Nitrite Ur Leukocyte Esterase Urine RBC Urine WBC Ur Squamous Epith Cells Urine Bacteria Hyaline Casts Urine Opiates Screen Urine Fentanyl Screen Ur Barbiturates Screen Ur Phencyclidine Scrn Ur Amphetamines Screen U Benzodiazepines Scrn Urine Cocaine Screen U Marijuana (THC) Screen Ethyl Alcohol COVID-19 ([facility]) Negative COVID-19 Clin Com See Note Influenza Type A (PCR) Influenza Type B (PCR) RSV RNA Qual (PCR) SARS-CoV-2 RNA (RT-PCR) 09/12/22 09/12/22 09/12/22 14:29 14:29 15:25 WBC RBC Hgb Hct MCV MCH MCHC RDW Plt Count MPV Immature Gran % (Auto) Neut % (Auto) Lymph % (Auto) [place] % (Auto) Eos % (Auto) Baso % (Auto) Lymph # (Auto) [place] # (Auto) Eos # (Auto) Baso # (Auto) Abs Immat Gran (auto) Absolute Neuts (auto) Absolute Nucleated RBC Nucleated RBC % (auto) Smear Tech's Comments VBG pH VBG pCO2 VBG pO2 VBG HCO3 VBG O2 Saturation VBG Base Excess Sodium Potassium Chloride Carbon Dioxide Anion Gap BUN Creatinine Estim Creat Clear Calc Estimated GFR POC Glucose 72 Random Glucose Lactic Acid 1.8 Calcium Magnesium Total Bilirubin Direct Bilirubin AST ALT Alkaline Phosphatase Troponin I High Sens B-Natriuretic Peptide Total Protein Albumin Urine Color Urine Appearance Urine pH Ur Specific [place] Urine Protein Urine Glucose (UA) Urine Ketones Urine Blood Urine Nitrite Ur Leukocyte Esterase Urine RBC Urine WBC Ur Squamous Epith Cells Urine Bacteria Hyaline Casts Urine Opiates Screen Urine Fentanyl Screen Ur Barbiturates Screen Ur Phencyclidine Scrn Ur Amphetamines Screen U Benzodiazepines Scrn Urine Cocaine Screen U Marijuana (THC) Screen Ethyl Alcohol < 10 COVID-19 ([facility]) COVID-19 Clin Com Influenza Type A (PCR) Influenza Type B (PCR) RSV RNA Qual (PCR) SARS-CoV-2 RNA (RT-PCR) 09/12/22 09/12/22 09/12/22 18:57 18:57 19:25 WBC RBC Hgb Hct MCV MCH MCHC RDW Plt Count MPV Immature Gran % (Auto) Neut % (Auto) Lymph % (Auto) [place] % (Auto) Eos % (Auto) Baso % (Auto) Lymph # (Auto) [place] # (Auto) Eos # (Auto) Baso # (Auto) Abs Immat Gran (auto) Absolute Neuts (auto) Absolute Nucleated RBC Nucleated RBC % (auto) Smear Tech's Comments VBG pH VBG pCO2 VBG pO2 VBG HCO3 VBG O2 Saturation VBG Base Excess Sodium Potassium Chloride Carbon Dioxide Anion Gap BUN Creatinine Estim Creat Clear Calc Estimated GFR POC Glucose 88 Random Glucose Lactic Acid Calcium Magnesium Total Bilirubin Direct Bilirubin AST ALT Alkaline Phosphatase Troponin I High Sens B-Natriuretic Peptide Total Protein Albumin Urine Color Yellow Urine Appearance Clear Urine pH 5.5 Ur Specific [place] <= 1.005 Urine Protein Negative Urine Glucose (UA) Negative Urine Ketones Negative Urine Blood Small (1+) H Urine Nitrite Negative Ur Leukocyte Esterase Trace H Urine RBC 0-2 Urine WBC 0-5 Ur Squamous Epith Cells 0-2 Urine Bacteria None Seen Hyaline Casts 3-5 Urine Opiates Screen Not Detected Urine Fentanyl Screen POSITIVE H Ur Barbiturates Screen Not Detected Ur Phencyclidine Scrn Not Detected Ur Amphetamines Screen Not Detected U Benzodiazepines Scrn Not Detected Urine Cocaine Screen Not Detected U Marijuana (THC) Screen Not Detected Ethyl Alcohol COVID-19 ([facility]) COVID-19 Clin Com Influenza Type A (PCR) Influenza Type B (PCR) RSV RNA Qual (PCR) SARS-CoV-2 RNA (RT-PCR) 09/12/22 09/13/22 09/13/22 23:24 05:27 05:53 WBC 9.6 RBC 3.84 L Hgb 10.1 L Hct 33.5 L MCV 87.2 MCH 26.3 L MCHC 30.1 L RDW 16.2 H Plt Count 249 MPV 10.2 Immature Gran % (Auto) 0.2 Neut % (Auto) 58.4 Lymph % (Auto) 31.8 [place] % (Auto) 7.2 Eos % (Auto) 2.2 Baso % (Auto) 0.2 Lymph # (Auto) 3.1 [place] # (Auto) 0.7 Eos # (Auto) 0.2 Baso # (Auto) 0.0 Abs Immat Gran (auto) 0.02 Absolute Neuts (auto) 5.6 Absolute Nucleated RBC 0.000 Nucleated RBC % (auto) 0.0 Smear Tech's Comments VBG pH VBG pCO2 VBG pO2 VBG HCO3 VBG O2 Saturation VBG Base Excess Sodium Potassium Chloride Carbon Dioxide Anion Gap BUN Creatinine Estim Creat Clear Calc Estimated GFR POC Glucose 154 H Random Glucose Lactic Acid Calcium Magnesium Total Bilirubin Direct Bilirubin AST ALT Alkaline Phosphatase Troponin I High Sens B-Natriuretic Peptide Total Protein Albumin Urine Color Urine Appearance Urine pH Ur Specific [place] Urine Protein Urine Glucose (UA) Urine Ketones Urine Blood Urine Nitrite Ur Leukocyte Esterase Urine RBC Urine WBC Ur Squamous Epith Cells Urine Bacteria Hyaline Casts Urine Opiates Screen Urine Fentanyl Screen Ur Barbiturates Screen Ur Phencyclidine Scrn Ur Amphetamines Screen U Benzodiazepines Scrn Urine Cocaine Screen U Marijuana (THC) Screen Ethyl Alcohol COVID-19 ([facility]) COVID-19 Clin Com Influenza Type A (PCR) NEGATIVE Influenza Type B (PCR) NEGATIVE RSV RNA Qual (PCR) NEGATIVE SARS-CoV-2 RNA (RT-PCR) NEGATIVE 09/13/22 09/13/22 05:53 07:15 WBC RBC Hgb Hct MCV MCH MCHC RDW Plt Count MPV Immature Gran % (Auto) Neut % (Auto) Lymph % (Auto) [place] % (Auto) Eos % (Auto) Baso % (Auto) Lymph # (Auto) [place] # (Auto) Eos # (Auto) Baso # (Auto) Abs Immat Gran (auto) Absolute Neuts (auto) Absolute Nucleated RBC Nucleated RBC % (auto) Smear Tech's Comments VBG pH VBG pCO2 VBG pO2 VBG HCO3 VBG O2 Saturation VBG Base Excess Sodium 143 Potassium 3.7 Chloride 105 Carbon Dioxide 28 Anion Gap 14 BUN 6 L Creatinine 0.58 Estim Creat Clear Calc 142.3 Estimated GFR > 60 POC Glucose 161 H Random Glucose 164 H Lactic Acid Calcium 9.6 Magnesium Total Bilirubin Direct Bilirubin AST ALT Alkaline Phosphatase Troponin I High Sens B-Natriuretic Peptide Total Protein Albumin Urine Color Urine Appearance Urine pH Ur Specific [place] Urine Protein Urine Glucose (UA) Urine Ketones Urine Blood Urine Nitrite Ur Leukocyte Esterase Urine RBC Urine WBC Ur Squamous Epith Cells Urine Bacteria Hyaline Casts Urine Opiates Screen Urine Fentanyl Screen Ur Barbiturates Screen Ur Phencyclidine Scrn Ur Amphetamines Screen U Benzodiazepines Scrn Urine Cocaine Screen U Marijuana (THC) Screen Ethyl Alcohol COVID-19 ([facility]) COVID-19 Clin Com Influenza Type A (PCR) Influenza Type B (PCR) RSV RNA Qual (PCR) SARS-CoV-2 RNA (RT-PCR) Discharge Plan Discharge Anticipated Discharge Date/Time: 09/13/22 10:12 Patient Disposition: Home, Self-Care Discharge Diagnosis: Hypoxia 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 Referrals: [place] [Primary Care Provider] - 1 Week Discharge Medications: Continued (DME) lancets [TRUEplus Lancets] 33 gauge misc See Rx Instructions .ROUTE .MEDSUPPLY Qty: 120 11RF Rx Instructions: 4 times a day (DME) pen needle, diabetic [BD Usha 2nd Gen Pen Needle] 32 gauge x 5/32 needle See Rx Instructions .MEDSUPPLY Qty: 100 11RF Rx Instructions: Twice a day propranolol 80 mg tablet 80 mg PO BID 90 Days Qty: 180 3RF (DME) FreeStyle Lite Strips Strip See Rx Instructions .MEDSUPPLY Qty: 150 5RF Rx Instructions: 5 times a day Advair HFA 230-21 mcg/actuation HFA aerosol inhaler 2 puff inhalation Q12H 30 Days Qty: 1 6RF (DME) blood-glucose meter [FreeStyle Lite Meter] Kit See Rx Instructions .Route Qty: 1 0RF Rx Instructions: As directed levothyroxine 125 mcg tablet 1 tab PO DAILY@0600 albuterol sulfate [ProAir HFA] 90 mcg/actuation HFA aerosol inhaler 2 puff inhalation Q4-6H PRN (Reason: asthma) nortriptyline 50 mg capsule 1 cap PO BEDTIME Rx Instructions: TAKE WITH 75 MG ibuprofen 600 mg tablet 600 mg PO Q6H PRN (Reason: pain) Qty: 30 0RF oxybutynin chloride 10 mg tablet extended release 24hr 10 mg PO DAILY furosemide 20 mg tablet 20 mg PO DAILY aripiprazole 2 mg tablet 2 mg PO DAILY Baqsimi 3 mg/actuation spray,non-aerosol 3 mg intranasal DAILY PRN (Reason: 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) Rx Instructions: [place] once for severe hypoglycemia when patient cannot self-treat with glucose. Afterwards turn on side. May repeat after 15 minutes if patient does not respond. Januvia 100 mg tablet 100 mg PO DAILY clonidine HCl 0.1 mg tablet 0.1 mg PO BEDTIME PRN (Reason: Anxiety) rosuvastatin [Crestor] 20 mg tablet 20 mg PO BEDTIME thiamine HCl (vitamin B1) 100 mg tablet 100 mg PO DAILY Rx Instructions: WITH MEAL ferrous sulfate 325 mg (65 mg iron) tablet 325 mg PO Q OTHER DAY clonazepam 1 mg tablet 1 mg PO TID PRN (Reason: Anxiety) valsartan 160 mg tablet 160 mg PO DAILY omeprazole 20 mg capsule,delayed release(DR/EC) 20 mg PO DAILY@0630 cyanocobalamin (vitamin B-12) 1,000 mcg/mL solution 1,000 mcg IM [id number] aspirin 81 mg tablet,delayed release (DR/EC) 81 mg PO DAILY docusate sodium 100 mg capsule 100 mg PO BID cholecalciferol (vitamin D3) 50 mcg (2,000 unit) capsule 50 mcg PO DAILY (DME) FreeStyle [place] 2 Sensor Kit See Rx Instructions .Route Qty: 2 6RF Rx Instructions: As directed change every 14 days (DME) FreeStyle [place] 2 [place] Misc See Rx Instructions .Route Qty: 1 0RF Rx Instructions: As directed gabapentin 400 mg capsule 400 mg PO TID Qty: 270 1RF albuterol sulfate 2.5 mg /3 mL (0.083 %) solution for nebulization 2.5 mg inhalation Q4H PRN (Reason: Wheezing) Changed Humulin R U-500 (Conc) Kwikpen 500 unit/mL (3 mL) insulin pen 30 unit subcut BEDTIME Qty: 6 0RF Humulin R U-500 (Conc) Kwikpen 500 unit/mL (3 mL) insulin pen 40 unit subcut DAILY Qty: 6 0RF Held metformin 500 mg tablet 1,000 mg PO BID 90 Days Qty: 360 1RF Hold Instructions: Resume on 09/15/22. Discharge Orders: Discharge Order (Routine); Ordered 09/13/22 Ordered By: Jesus Solis Diet: Diabetic diet Activity on Discharge: As tolerated Stand Alone Forms: Patient Portal Discharge page Care Plan Goals: decrease home dose of insulin take 40 units at a.m. and 30 units at p.m. due to low blood sugars Continue incentive spirometry at home take deep breathing Continue pain medications and other instructions as recommended by General surgery for post hemorrhoidectomy care Health Concerns: Diabetes/obstructive sleep apnea on CPAP Plan of Treatment: Outpatient follow-up with primary care physician and surgeon . Assessment: As directed Discharge Date/Time: 09/13/22 10:30
[2022-09-13 10:37] VITALS: O2SAT 94
--- NOTE | 2022-09-13 10:37 | PC.NURSE ---
Plan for d/c, pt request to leave now, Dr Solis aware, maintaining sat on room air even with ambulation. No SOB noted.
--- NOTE | 2022-09-13 12:47 | MHC.CM.PN ---
Patient left before being seen by case management.
== END 2022-09-13 10:30 | disposition home or self-care (01) ==
LOC: HO.ED 22:03 → HO.EDOVER 23:13
PROVIDERS: Physician Assistant; Admitting Provider Internal Medicine; Emergency Provider Emergency Medicine; Visit Provider Hospitalist
DX: J96.01 Acute respiratory failure with hypoxia (principal); I10 Essential (primary) hypertension; E03.9 Hypothyroidism, unspecified; E78.5 Hyperlipidemia, unspecified; K21.9 Gastro-esophageal reflux disease without esophagitis; G47.33 Obstructive sleep apnea (adult) (pediatric); E66.9 Obesity, unspecified; E11.649 Type 2 diabetes mellitus with hypoglycemia without coma; Z20.822 Contact with and (suspected) exposure to COVID-19
CPT/HCPCS: 0241U; 36415; 71045; 71275; 74177; 80048; 80076; 80307; 81001; 82803; 82947; 83605; 83735; 83880; 84484; 85025; 87040; 87147; 87205; 87635; 93005; 96360; 96361; 96372; 99221; 99285; J1650; Q9967

== ENCOUNTER → 2022-09-12 12:06 | Outpatient (BNV) | payer MEDICAID, SELFPAY | PROVIDERS: Admitting Provider Internal Medicine; Emergency Provider Emergency Medicine; Visit Provider Internal Medicine Cardiovascular Disease | DX: R94.31 Abnormal electrocardiogram [ECG] [EKG] (principal) | CPT/HCPCS: 93010 ==

== ENCOUNTER → 2022-09-12 23:05 | Outpatient (BNV) | payer MEDICAID, SELFPAY | PROVIDERS: Admitting Provider Internal Medicine; Emergency Provider Emergency Medicine; Visit Provider Internal Medicine | DX: R06.02 Shortness of breath (principal); R09.02 Hypoxemia | CPT/HCPCS: 99223; 99239 ==

== ENCOUNTER → 2022-09-22 12:26 | Outpatient (BNVA) | payer MEDICAID, SELFPAY | PROVIDERS: PCP Family Medicine; Visit Provider Surgery ==

== ENCOUNTER 2022-09-24 08:42 | Outpatient (AMB) | payer MEDICAID, SELFPAY ==
--- NOTE | 2022-09-24 08:45 | MHC.OFFVIS ---
Intake Vital Signs 09/24/22 08:52 Weight 254 lb BP 141/65 H Blood Pressure Location Lt brachial Position Sitting Pulse 69 Intake Visit Reasons: s/p hemorrhoidectomy Intake Note: This patient presents for a post-op assessment status post hemorrhoidectomy. Patient c/o: describes blood in toilet bowl, fecal incontinence, denies constipation. 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 She tolerated procedure well. She says she is doing well. She still has some occasional bleeding with BMs. She says her pain has improved significantly. [facility] Medical History (Updated 09/24/22 @ 09:03 by Ramsey Reynolds MD) Anemia Anxiety Asthma Bilateral pneumonia Bleeding hemorrhoids Chest pain Chronic pain syndrome Coarse tremors Dental crowns present Depression Depression Diabetes 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, uncontrolled Diabetic nephropathy associated with type 2 diabetes mellitus Dyslipidemia Family history of colon cancer Fibromyalgia Gastroparesis Genu valgum GERD (gastroesophageal reflux disease) Hemorrhoids HTN (hypertension) Hyperlipidemia 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 due to insulin Hypothyroidism Inappropriate sinus tachycardia Insomnia 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 Low back pain Lumbar spondylosis Migraine Morbid obesity Obstructive sleep apnea on CPAP Palpitations Paranoia (psychosis) Patella-femoral syndrome Patellofemoral arthritis Respiratory failure Sacroiliitis Scoliosis of thoracolumbar spine Spondylosis of lumbar region without myelopathy or radiculopathy Stress incontinence Tubular adenoma Vitamin D deficiency Surgical History H/O esophagogastroduodenoscopy History of arthroscopy of right knee History of bilateral carpal tunnel release History of bladder surgery History of colonoscopy History of hemorrhoidectomy (~09/09/22) History of surgery History of tubal ligation Hx of section Hx of tonsillectomy Family History Father Stomach cancer Mother Heart disease HTN (hypertension) Diabetes Son No problems noted. Paternal Aunt Stomach cancer Sister Stomach cancer Sister Uterine cancer Social History Household Members: Family Household Members Other:: adult son Housing: Apartment Are you a primary direct care supervisor to a significant other at home: No Do you presently have visiting nurse or other home services: Yes (BLOW MOLDER daily) Alcohol intake: never Patient Tobacco Use Status: Never used Tobacco Second Hand Smoke Exposure: No service: No Current occupational status: disabled Current occupation: lt handed Sexual orientation: Straight/Heterosexual Gender identity: Female Female Reproductive History Menstrual Age of Menarche: 17 Review of Systems Const Denies chills and Denies fever(s) Card Denies chest pain at rest GI Denies abdominal pain Physical Exam Vital Signs: Last Vital Signs Pulse 69 09/24/22 08:52 BP 141/65 H 09/24/22 08:52 Const General: comfortable and no acute distress Resp Effort & Inspection: normal respiratory effort GI Other: Rectal exam shows hemorrhoidectomy sites to be well healing, no induration, no discharge, no redness Assessment & Plan Assessment & Plan (1) Hemorrhoids: Code(s): K64.9 - Unspecified hemorrhoids Plan: Status post hemorrhoidectomy. She is doing very well. Her hemorrhoidectomy sites are well healing. I advised her to avoid straining and constipation. She is to continue to try to do warm soaks or hot Sitz baths. I can see her in the office on a p.r.n. basis from here on. Her daughter was with her during the visit. Medications: Discontinued insulin regular hum U-500 conc Inject 125 units with breakfast and 90 units with dinner subcutaneously; 6 mL 5RF glucagon 3 mg/actuation (Baqsimi) [place] once for severe hypoglycemia when patient cannot self-treat with glucose. Afterwards turn on side. May repeat after 15 minutes if patient does not respond. 3 mg intranasal ONCE 4 ea 6RF unresponsive hypoglycemia 30 days E11.65 - Type 2 diabetes mellitus with hyperglycemia sitagliptin phosphate 100 mg PO QAM 30 tabs 6RF E11.649 - Type 2 diabetes mellitus with hypoglycemia without coma Coding Level of Care Code Global (19091) Diagnoses Hemorrhoids K64.9
[2022-09-24 08:52] VITALS: BP 141/65; PULSE 69
== END 2022-09-24 09:02 | disposition home or self-care (01) ==
PROVIDERS: PCP Family Medicine; Visit Provider Surgery
DX: K64.9 Unspecified hemorrhoids (principal)
CPT/HCPCS: 99024

== ENCOUNTER → 2022-09-24 08:42 | Outpatient (BNVA) | payer MEDICAID, SELFPAY | PROVIDERS: PCP Family Medicine; Visit Provider Surgery ==

== ENCOUNTER 2022-10-09 08:28 | Outpatient (AMB) | payer MEDICAID, SELFPAY ==
--- NOTE | 2022-10-09 08:29 | MHC.OFFVIS ---
Intake Vital Signs 10/09/22 08:33 Weight 255 lb BP 112/78 Blood Pressure Location Lt brachial Position Sitting Pulse 77 Pulse Source Pulse Oximeter Intake Visit Reasons: f/u Type 2 DM Intake Note: Patient present today to follow up on Type 2 Diabetes Mellitus. Patient receives DME supplies through: Pharmacy Last Diabetic Eye exam: 10/2021 Last Podiatry Visit: None Random Glucose: 223mg/dl HgA1C: 7.5% Senior Cyber Intelligence Analyst Required: Yes Senior Cyber Intelligence Analyst Language: Shearer Helper Name: Jodie Medical staff Information Interpreted: non-clinical & clinical Accompanied by: Son Allergies No Known Allergies [No Known Allergies*] Allergy (Verified 10/09/22 08:37) Medication List - Last Reconciled 10/09/22 by Timmy Elias MD albuterol sulfate 90 mcg/actuation (ProAir HFA) 2 puffs inhalation Q4-6H PRN albuterol sulfate 2.5 mg inhalation Q4H PRN aripiprazole 2 mg PO DAILY aspirin 81 mg PO DAILY blood sugar diagnostic (FreeStyle Lite Strips) 5 times a day blood-glucose meter (FreeStyle Lite Meter kit) As directed cholecalciferol (vitamin D3) 50 mcg PO DAILY clonazepam 1 mg PO TID PRN clonidine HCl 0.1 mg PO BEDTIME PRN cyanocobalamin (vitamin B-12) 1,000 mcg IM [id number] docusate sodium 100 mg PO BID ferrous sulfate 325 mg PO Q OTHER DAY flash glucose scanning reader (AudicusStyle Ortiz 2 [place]) As directed flash glucose sensor (FreeStyle Ortiz 2 Sensor kit) As directed change every 14 days fluticasone propion-salmeterol 230-21 mcg/actuation (Advair HFA) 2 puffs inhalation Q12H 30 days furosemide 20 mg PO DAILY gabapentin 400 mg PO TID glucagon 3 mg/actuation (Baqsimi) 3 mg intranasal DAILY PRN ibuprofen 600 mg PO Q6H PRN insulin regular hum U-500 conc (Humulin R U-500 (Conc) Insulin Kwikpen) 30 units (0.06 mL) subcut BEDTIME insulin regular hum U-500 conc (Humulin R U-500 (Conc) Insulin Kwikpen) 40 units (0.08 mL) subcut DAILY levothyroxine 1 tab PO DAILY@0600 metformin 1,000 mg (2 x 500 mg) PO BID 90 days nortriptyline 1 cap PO BEDTIME omeprazole 20 mg PO DAILY@0630 oxybutynin chloride ER 10 mg PO DAILY pen needle, diabetic (BD Usha 2nd Gen Pen Needle) Twice a day propranolol 80 mg PO BID 90 days rosuvastatin (Crestor) 20 mg PO BEDTIME sitagliptin phosphate (Januvia) 100 mg PO DAILY thiamine HCl (vitamin B1) 100 mg PO DAILY TRUEplus Lancets (lancets) 4 times a day NS valsartan 160 mg PO DAILY HPI HPI Comments History of Present Illness Details Patient is a 56-year-old female with DM type 2 diagnosed 2009 who presents for management of diabetes. Past medical history: 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, HLD, HTN, gastroparesis Micro and macrovascular complications: retinopathy, Diabetes medications: Humulin U 500 50 before breakfast and 40 units with dinner, metformin ER 500 mg 2 pills twice a day. Januvia 100mg. Intolerant of Ozempic due to gastroparesis. Incontinent and therefore not appropriate for SGLT-2 Blood glucose monitoring: Ortiz download shows she is using the sensor 76% of the time. Average glucose is 233 with G mi of 8.9% and variability 27.4%. 20% of glucoses are in range with 80% hyperglycemia and 1% hypoglycemia. Pattern shows persistent hyperglycemia throughout the day without post-prandial spikes. Symptoms reported: denies numbness, tingling, cramping in lower extremities 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:having infrequent hypoglycemia Exercise: walking when weather permit, less in winter with cold. Public Affairs Director - CDE education: has appointment scheduled with plant packer Integrated Pest Management Technician: denies Ophthalmology evaluation:has appt next mo Other specialists: urologist (for incontinence) Patient is preparing for bariatric surgery. States she took Ozempic in past and did not have any GI issues Laboratory Tests 03/20/21 05/27/21 05/27/21 10:48 10:12 10:12 Creatinine 0.69 Estimated GFR > 60 Hemoglobin A1c % 7.1 Triglycerides 97 Cholesterol 102 LDL Cholesterol, C alc 46 HDL Cholesterol 37 Vitamin B12 25-OH Vitamin D To hans 42.3 TSH 2.40 Microalb/Creat Rat io 46.2 05/27/21 10:12 Creatinine Estimated GFR Hemoglobin A1c % Triglycerides Cholesterol LDL Cholesterol, C alc HDL Cholesterol Vitamin B12 413 25-OH Vitamin D To hans TSH Microalb/Creat Rat io PFSH Medical History (Updated 09/24/22 @ 09:03 by Ramsey Reynolds MD) Anemia Anxiety Asthma Bilateral pneumonia Bleeding hemorrhoids Chest pain Chronic pain syndrome Coarse tremors Dental crowns present Depression Depression Diabetes 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, uncontrolled Diabetic nephropathy associated with type 2 diabetes mellitus Dyslipidemia Family history of colon cancer Fibromyalgia Gastroparesis Genu valgum GERD (gastroesophageal reflux disease) Hemorrhoids HTN (hypertension) Hyperlipidemia 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 due to insulin Hypothyroidism Inappropriate sinus tachycardia Insomnia manager (current) use of insulin Low back pain Lumbar spondylosis Migraine Morbid obesity Obstructive sleep apnea on CPAP Palpitations Paranoia (psychosis) Patella-femoral syndrome Patellofemoral arthritis Respiratory failure Sacroiliitis Scoliosis of thoracolumbar spine Spondylosis of lumbar region without myelopathy or radiculopathy Stress incontinence Tubular adenoma Vitamin D deficiency Surgical History H/O esophagogastroduodenoscopy History of arthroscopy of right knee History of bilateral carpal tunnel release History of bladder surgery History of colonoscopy History of hemorrhoidectomy (~09/09/22) History of surgery History of tubal ligation Hx of section Hx of tonsillectomy Family History Father Stomach cancer Mother Heart disease HTN (hypertension) Diabetes Son No problems noted. Paternal Aunt Stomach cancer Sister Stomach cancer Sister Uterine cancer Social History Household Members: Family Household Members Other:: adult son Housing: Apartment Are you a primary palliative care nurse to a significant other at home: No Do you presently have visiting nurse or other home services: Yes (W[employer]ELMAN daily) Alcohol intake: never Patient Tobacco Use Status: Never used Tobacco Second Hand Smoke Exposure: No service: No Current occupational status: disabled Current occupation: lt handed Sexual orientation: Straight/Heterosexual Gender identity: Female Female Reproductive History Menstrual Age of Menarche: 17 Physical Exam Vital Signs: Last Vital Signs Pulse 77 10/09/22 08:33 BP 112/78 10/09/22 08:33 Absence of Cushingoid features. Absence of acromegalic features. Neck exam reveals nl size thyroid about 15 gms. No thyroid nodules palpable. No carotid bruits present. Lungs CTA. Heart S1 S2, Reg R/R. No M/R/ G. Skin exam reveals absence of vitiligo or acanthosis nigricans. Abdominal exam reveals Soft NT/ND with NA BS. No organomegaly present. Neck Other: . Extrem Other: Visual exam of foot performed. No ulcerations or open lesions. No onchomycosis, no callouses.Pulses 2 + distally Sensation intact to monofilament exam. Vibratory sensation sensed is decreased with 128 Hz tuning fork Results AMB Hemoglobin A1c AMB Hemoglobin A1c 7.5 % Last Edit by Candace Conner on 10/09/22 08:54 Results Reviewed Results Reviewed: 10/09/22 08:43 Glucose, Whole Blood Routine Laboratory Last Values Glucose (Clinic) 223 mg/dL (60-115) H 10/09/22 08:43 Hgb A1c (Clinic) 7.5 % (4.0-6.0) H 10/09/22 08:47 Assessment & Plan Assessment & Plan (1) 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, uncontrolled: Code(s): E11.65 - Type 2 diabetes mellitus with hyperglycemia Qualifiers: Coma presence: without coma Glycemic state: with hypoglycemia Qualified Code(s): E11.649 - Type 2 diabetes mellitus with hypoglycemia without coma Plan: is a 57-year-old female with history of type 2 diabetes being managed with U-500 insulin twice a day , metformin and Januvia with glycemic control but episodes of hypoglycemia intermittently. She has known microvascular complications namely retinopathy. Plan is to reinitiate Ozempic 1 mg Q weekly. Patient warned about side effects of Ozempic including but not limited to nausea, vomiting and rare risk pancreatitis. She is considering going for gastric bypass surgery. She also told to follow up with family living educator Ozempic 1 mg samples given to patient lot number [id number] expiration date 10/09/2022 Orders: Orders AMB Hemoglobin A1c Today E11.21 - Type 2 diabetes mellitus with diabetic nephropathy Medications: New semaglutide (Ozempic) 1 mg (0.375 mL) subcut QWEEK 3 mL 4RF Discontinued insulin regular hum U-500 conc Inject 125 units with breakfast and 90 units with dinner subcutaneously; 6 mL 5RF glucagon 3 mg/actuation [place] once for severe hypoglycemia when patient cannot self-treat with glucose. Afterwards turn on side. May repeat after 15 minutes if patient does not respond. 3 mg intranasal ONCE 30 days 4 ea 6RF unresponsive hypoglycemia E11.65 - Type 2 diabetes mellitus with hyperglycemia sitagliptin phosphate 100 mg PO QAM 30 tabs 6RF E11.649 - Type 2 diabetes mellitus with hypoglycemia without coma Coding Level of Care Code New Pt Level 4 (20897) Diagnoses 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, uncontrolled E11.649 Coma presence: without coma Glycemic state: with hypoglycemia
[2022-10-09 08:33] VITALS: BP 112/78; PULSE 77
[2022-10-09 08:48] LABS: Glucose, Whole Blood 223 mg/dL (60-115)
== END 2022-10-09 09:29 | disposition home or self-care (01) ==
PROVIDERS: PCP Family Medicine; Visit Provider Internal Medicine Endocrinology, Diabetes & Metabolism
DX: E11.21 Type 2 diabetes mellitus with diabetic nephropathy (principal); E11.649 Type 2 diabetes mellitus with hypoglycemia without coma
CPT/HCPCS: 99214

== ENCOUNTER → 2022-10-09 08:28 | Outpatient (BNVA) | payer MEDICAID, SELFPAY | PROVIDERS: PCP Family Medicine; Visit Provider Internal Medicine Endocrinology, Diabetes & Metabolism | DX: E11.649 Type 2 diabetes mellitus with hypoglycemia without coma (principal); Z79.4 Long term (current) use of insulin | CPT/HCPCS: 82947; 83036; 99212 ==

== ENCOUNTER 2022-10-13 11:20 | Outpatient (AMB) | payer MEDICAID, SELFPAY ==
--- NOTE | 2022-10-13 11:25 | A.OFFVIS_ITS ---
Intake Vital Signs 10/13/22 11:34 Weight 254 lb BP 138/65 Blood Pressure Location Rt brachial Position Sitting Pulse 82 Intake Visit Reasons: ? fecal incontinence s/p hemorrhoidectomy Intake Note: This patient presents for an assessment for question fecal incontinence status post hemorrhoidectomy. Patient c/o; fecal incontinenece, denies rectal pain or rectal bleeding. Ocean Lifeguard Specialist Required: Yes Ocean Lifeguard Specialist Language: Sql Analyst Name: Patient declined pricing specialist Accompanied by: Daughter Allergies No Known Allergies [No Known Allergies*] Allergy (Verified 10/13/22 11:33) Medication List - Last Reconciled 10/13/22 by Ramsey Reynolds MD albuterol sulfate 90 mcg/actuation (ProAir HFA) 2 puffs inhalation Q4-6H PRN albuterol sulfate 2.5 mg inhalation Q4H PRN aripiprazole 2 mg PO DAILY aspirin 81 mg PO DAILY blood sugar diagnostic (FreeStyle Lite Strips) 5 times a day blood-glucose meter (FreeStyle Lite Meter kit) As directed cholecalciferol (vitamin D3) 50 mcg PO DAILY clonazepam 1 mg PO TID PRN clonidine HCl 0.1 mg PO BEDTIME PRN cyanocobalamin (vitamin B-12) 1,000 mcg IM [id number] docusate sodium 100 mg PO BID ferrous sulfate 325 mg PO Q OTHER DAY flash glucose scanning reader (Energatix StudioStyle Ortiz 2 [place]) As directed flash glucose sensor (FreeStyle Ortiz 2 Sensor kit) As directed change every 14 days fluticasone propion-salmeterol 230-21 mcg/actuation (Advair HFA) 2 puffs inhalation Q12H 30 days furosemide 20 mg PO DAILY gabapentin 400 mg PO TID glucagon 3 mg/actuation (Baqsimi) 3 mg intranasal DAILY PRN ibuprofen 600 mg PO Q6H PRN insulin regular hum U-500 conc (Humulin R U-500 (Conc) Insulin Kwikpen) 30 units (0.06 mL) subcut BEDTIME insulin regular hum U-500 conc (Humulin R U-500 (Conc) Insulin Kwikpen) 40 units (0.08 mL) subcut DAILY levothyroxine 1 tab PO DAILY@0600 metformin 1,000 mg (2 x 500 mg) PO BID 90 days nortriptyline 1 cap PO BEDTIME omeprazole 20 mg PO DAILY@0630 oxybutynin chloride ER 10 mg PO DAILY pen needle, diabetic (BD Usha 2nd Gen Pen Needle) Twice a day propranolol 80 mg PO BID 90 days rosuvastatin (Crestor) 20 mg PO BEDTIME semaglutide (Ozempic) 1 mg (0.375 mL) subcut QWEEK sitagliptin phosphate (Januvia) 100 mg PO DAILY thiamine HCl (vitamin B1) 100 mg PO DAILY TRUEplus Lancets (lancets) 4 times a day NS valsartan 160 mg PO DAILY HPI ? fecal incontinence s/p hemorrhoidectomy HPI Details She had undergone hemorrhoidectomy last 09/09/2022. She tolerated the procedure well and had been doing well on her follow-up visit. However, she stated that she feels some urgency whenever she has a bowel movement. She states that ever she has the urge to go to the bathroom for a bowel movement, still has to go quickly otherwise her stools come out before she reaches the bathroom. She denies significant pain. She admits to having loose stools lately. [facility] [place] Medical History Anemia Anxiety Asthma Bilateral pneumonia Bleeding hemorrhoids Chest pain Chronic pain syndrome Coarse tremors Dental crowns present Depression Depression Diabetes 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, uncontrolled Diabetic nephropathy associated with type 2 diabetes mellitus Dyslipidemia Family history of colon cancer Fibromyalgia Gastroparesis Genu valgum GERD (gastroesophageal reflux disease) Hemorrhoids HTN (hypertension) Hyperlipidemia 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 due to insulin Hypothyroidism Inappropriate sinus tachycardia Insomnia 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 Low back pain Lumbar spondylosis Migraine Morbid obesity Obstructive sleep apnea on CPAP Palpitations Paranoia (psychosis) Patella-femoral syndrome Patellofemoral arthritis Respiratory failure Sacroiliitis Scoliosis of thoracolumbar spine Spondylosis of lumbar region without myelopathy or radiculopathy Stress incontinence Tubular adenoma Vitamin D deficiency Surgical History (Updated 10/13/22 @ 12:02 by Ramsey Reynolds MD) H/O esophagogastroduodenoscopy History of arthroscopy of right knee History of bilateral carpal tunnel release History of bladder surgery History of colonoscopy History of hemorrhoidectomy (~09/09/22) History of surgery History of tubal ligation Hx of section Hx of tonsillectomy Status post hemorrhoidectomy Family History Father Stomach cancer Mother Heart disease HTN (hypertension) Diabetes Son No problems noted. Paternal Aunt Stomach cancer Sister Stomach cancer Sister Uterine cancer Social History Household Members: Family Household Members Other:: adult son Housing: Apartment Are you a primary home health caregiver to a significant other at home: No Do you presently have visiting nurse or other home services: Yes (KIL[employer] FURNITURE CASTER daily) Alcohol intake: never Patient Tobacco Use Status: Never used Tobacco Second Hand Smoke Exposure: No service: No Current occupational status: disabled Current occupation: lt handed Sexual orientation: Straight/Heterosexual Gender identity: Female Female Reproductive History Menstrual Age of Menarche: 17 Physical Exam Vital Signs: Last Vital Signs Pulse 82 10/13/22 11:34 BP 138/65 10/13/22 11:34 Const General: comfortable and no acute distress Resp Effort & Inspection: normal respiratory effort GI Other: Hemorrhoidectomy site is well healed, digital exam shows intact sphincter, good sphincter tone on both squeeze and resting, no sphincter defect, no evidence of infection Assessment & Plan Assessment & Plan (1) Status post hemorrhoidectomy: Code(s): Z98.890 - Other specified postprocedural states; Z87.19 - Personal history of other diseases of the digestive system Plan: She describes urgency with bowel movements and feels that often times, she does not reach the bathroom at all. Exam shows an intact sphincter with good sphincter tone. She is still taking her stool softener so I told her to stop this for now. I will start her on fiber supplementation for more formed stools. I will see her again in the office in about 2-3 months. Medications: Discontinued insulin regular hum U-500 conc Inject 125 units with breakfast and 90 units with dinner subcutaneously; 6 mL 5RF glucagon 3 mg/actuation (Baqsimi) [place] once for severe hypoglycemia when patient cannot self-treat with glucose. Afterwards turn on side. May repeat after 15 minutes if patient does not respond. 3 mg intranasal ONCE 4 ea 6RF unresponsive hypoglycemia 30 days E11.65 - Type 2 diabetes mellitus with hyperglycemia sitagliptin phosphate 100 mg PO QAM 30 tabs 6RF E11.649 - Type 2 diabetes mellitus with hypoglycemia without coma Coding Level of Care Code Global (96886) Diagnoses Status post hemorrhoidectomy Z98.890; Z87.19
[2022-10-13 11:34] VITALS: BP 138/65; PULSE 82
== END 2022-10-13 11:53 | disposition home or self-care (01) ==
PROVIDERS: PCP Family Medicine; Visit Provider Surgery
DX: Z98.890 Other specified postprocedural states (principal); Z87.19 Personal history of other diseases of the digestive system
CPT/HCPCS: 99024

== ENCOUNTER → 2022-10-13 11:20 | Outpatient (BNVA) | payer MEDICAID, SELFPAY | PROVIDERS: PCP Family Medicine; Visit Provider Surgery ==

== ENCOUNTER 2022-11-28 11:12 | Outpatient (AMB) | payer MEDICAID, SELFPAY ==
--- NOTE | 2022-11-28 11:27 | A.OFFVIS_ITS ---
Intake Intake Visit Reasons: ov- B/L knee durolane injection Intake Note: Candace a 57 year old female who presents today for bilateral knee Durolane injections. Allergies No Known Allergies [No Known Allergies*] Allergy (Verified 11/28/22 11:47) HPI ov- B/L knee durolane injection HPI Details 57-year-old female who returns to the [facility] today for bilateral knee durolane injection. [facility] Medical History (Updated 11/28/22 @ 14:10 by Rahul Loredo PA-C) Depression Diabetes Coarse tremors Bleeding hemorrhoids Hyperlipidemia Dental crowns present Bilateral pneumonia Respiratory failure Hypothyroidism Paranoia (psychosis) Stress incontinence Insomnia Anxiety Depression Obstructive sleep apnea on CPAP Scoliosis of thoracolumbar spine Morbid obesity Chronic pain syndrome Sacroiliitis Inappropriate sinus tachycardia GERD (gastroesophageal reflux disease) 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 due to insulin half-way (current) use of insulin Gastroparesis 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, uncontrolled Anemia Hemorrhoids Migraine Asthma Patellofemoral arthritis Patella-femoral syndrome Lumbar spondylosis Fibromyalgia Tubular adenoma Family history of colon cancer Vitamin D deficiency Dyslipidemia Genu valgum Low back pain Palpitations Chest pain HTN (hypertension) Surgical History (Updated 10/13/22 @ 12:02 by Ramsey Reynolds MD) Status post hemorrhoidectomy History of hemorrhoidectomy (~09/09/22) History of surgery Hx of section H/O esophagogastroduodenoscopy History of colonoscopy History of arthroscopy of right knee History of bilateral carpal tunnel release History of bladder surgery History of tubal ligation Hx of tonsillectomy Family History Father Stomach cancer Mother Heart disease HTN (hypertension) Diabetes Son No problems noted. Paternal Aunt Stomach cancer Sister Stomach cancer Sister Uterine cancer Social History Household Members: Family Household Members Other:: adult son Housing: Apartment Are you a primary wound care coordinator to a significant other at home: No Do you presently have visiting nurse or other home services: Yes (MARINE DRAFTER daily) Alcohol intake: never Patient Tobacco Use Status: Never used Tobacco Second Hand Smoke Exposure: No service: No Current occupational status: disabled Current occupation: lt handed Sexual orientation: Straight/Heterosexual Gender identity: Female Female Reproductive History Menstrual Age of Menarche: 17 Review of Systems Const All systems reviewed & are unremarkable except as noted in HPI and below Physical Exam Extrem Other: Bilateral knee: Skin intact, no erythema or joint effusion. Tenderness along the medial and lateral joint line. Full ROM with crepitus. Negative Mami?s. No ligamentous laxity. NVI. Office Procedures Joint Injection/Drain Joint Injection/Drain Details: Hyaluronate Sodium, Stabilized [Durolane] 60 mg INTRAARTIC .STK-MED ONE Primary Site: right knee Secondary Site: left knee Prep: site was prepped using aseptic technique, ethochloride spray was applied and injection warnings given Injected: in the joint Approach Used: anterolateral Procedure: The patient tolerated the procedure well Coding 97976 - Glenohumeral/Tronchanteric Bursa/Intraarticular Procedure code (CPT) selection complete Results Reviewed Results Reviewed: 11/28/22 11:26 Hyaluronate Sodium, Stabilized [Durolane] 60 mg INTRAARTIC .STK-MED ONE Assessment & Plan Assessment & Plan (1) Osteoarthritis of knees, bilateral: Code(s): M17.0 - Bilateral primary osteoarthritis of knee Qualifiers: Osteoarthritis type: primary Qualified Code(s): M17.0 - Bilateral primary osteoarthritis of knee Plan We discussed options today which include durolane injection. They did consent to move forward with the bilateral knee durolane injection, which was tolerated well. I recommended rest, ice and elevation and OTC anti-inflammatories PRN for discomfort. If symptoms persist or worsens over the next 6-8 weeks, patient will contact the office, otherwise follow-up as needed. Patient Instructions: Scribed for Rahul Loredo PA-C, by Missael Mchugh clinical medical transcriptionist, on 11/28/2022 at 11:30 AM EST. Rahul Olivera PA-C, have personally reviewed and agree with the information entered by the scribe. Coding Level of Care Code Procedure Only Diagnoses Primary osteoarthritis of both knees M17.0 Osteoarthritis type: primary CPT Codes Coding - Joint 7: 18818 - Glenohumeral/Tronchanteric Bursa/Intraarticular ([id number])
== END 2022-11-28 11:41 | disposition home or self-care (01) ==
PROVIDERS: PCP Family Medicine; Visit Provider Physician Assistant
DX: M17.0 Bilateral primary osteoarthritis of knee (principal)

== ENCOUNTER → 2022-11-28 11:12 | Outpatient (BNVA) | payer MEDICAID, SELFPAY | PROVIDERS: PCP Family Medicine; Visit Provider Physician Assistant | DX: M17.0 Bilateral primary osteoarthritis of knee (principal) | CPT/HCPCS: 20610; J7318 ==

== ENCOUNTER 2022-12-12 10:04 | Outpatient (REF) | payer MEDICAID, SELFPAY ==
[2022-12-12 11:43] LABS: MANUAL DIFF FLAG NO
[2022-12-12 12:01] LABS: Basophils Percent Auto 0.3 % (0-2); Eosinophils Absolute Auto 0.2 X10*3/uL (0.0-0.4); Eosinophils Percent Auto 1.6 % (0-4); Hematocrit 37.9 % (37.0-47.0); Hemoglobin 11.4 g/dl (12.0-16.0); Imm Gran Abs Auto 0.05 X10*3/uL (0.00-0.03); Imm Gran Pct Auto 0.5 % (0.0-0.4); Lymphocytes Percent Auto 29.4 % (20-40); Mean Corpuscular HGB Conc 30.1 g/dl (31.0-35.0); Mean Corpuscular Hemoglobin 25.2 pg (27.0-33.0); Mean Corpuscular Volume 83.8 fL (80.0-98.0); Mean Platelet Volume 10.9 fL (9.4-12.3); Monocytes Absolute Auto 0.5 X10*3/uL (0.1-1.2); Monocytes Percent Auto 5.3 % (2-11); Neutrophils Absolute Auto 6.4 x10*3/uL (2.0-8.3); Neutrophils Percent Auto 62.9 % (45-73); Platelet Count 274 X10*3/uL (160-400); Red Blood Count 4.52 X10*6/uL (4.20-5.50); Red Cell Distribution Width 15.1 % (11.0-16.0); White Blood Count 10.1 X10*3/uL (4.8-10.8)
[2022-12-12 12:39] LABS: Estimated Average Glucose 177 mg/dL; Hemoglobin A1c % 7.8 % (<6.0)
[2022-12-12 13:03] LABS: Alanine Aminotransferase 13 U/L (0-31); Albumin Level 3.9 g/dL (3.5-5.0); Alkaline Phosphatase 123 U/L (39-117); Anion Gap 16 (12-20); Aspartate Amino Transferase 18 U/L (5-31); Bilirubin Direct 0.2 mg/dL (0.0-0.5); Bilirubin Total 0.4 mg/dL (0.0-1.0); Blood Urea Nitrogen 13 mg/dL (9-16); Calcium 9.3 mg/dL (8.4-10.2); Carbon Dioxide 26 mmol/L (22-29); Chloride 104 mmol/L (96-108); Cholesterol 91 mg/dL (<200); Estimated Glomerular Filt Rate > 60; Glucose Random 271 mg/dL (60-115); HDL Cholesterol 38 mg/dL (>40); Iron 57 mcg/dL (30-160); LDL Cholesterol Calculated 31 mg/dL (<100); Percent Iron Saturation 22 % (15-50); Potassium 3.7 mmol/L (3.3-5.1); Sodium 142 mmol/L (135-145); Total Iron Binding Capacity 265 mcg/dL (228-428); Total Protein 7.7 g/dL (6.5-8.0); Triglycerides 112 mg/dL (<150); Unsaturated Iron Binding 208 ug/dL
[2022-12-12 13:04] LABS: Ferritin 125 ng/mL (10-250); Free T4 (Free Thyroxine) 1.12 ng/dL (0.71-1.85); Thyroid Stimulating Hormone 2.34 uIU/mL (0.32-4.0); Vitamin D 25-OH Total 33.5 ng/mL (>30)
[2022-12-12 13:18] LABS: Folate 3.6 ng/mL (> or = 4.0); Vitamin B12 387 pg/mL (200-900)
[2022-12-15 12:38] LABS: Alpha Fetoprotein 1.8 ng/mL
== END 2022-12-12 10:05 | disposition home or self-care (01) ==
LOC: HO.HHCL 10:04
PROVIDERS: Visit Provider Family Medicine
DX: E11.29 Type 2 diabetes mellitus with other diabetic kidney complication (principal); R80.9 Proteinuria, unspecified; E78.49 Other hyperlipidemia; Z79.4 Long term (current) use of insulin
CPT/HCPCS: 36415; 80048; 80061; 80076; 82105; 82306; 82607; 82728; 82746; 83036; 83540; 84439; 84443; 85025

== ENCOUNTER 2023-01-12 08:26 | Outpatient (AMB) | payer MEDICAID, SELFPAY ==
[2023-01-12 08:28] VITALS: BP 116/74; PULSE 89; BMI 42.5
--- NOTE | 2023-01-12 08:28 | MHC.OFFVIS ---
Intake Vital Signs 01/12/23 08:28 Height 5 ft 4 in Weight 247 lb 12.793 oz BMI 42.5 BP 116/74 Blood Pressure Location Lt brachial Position Sitting Pulse 89 Pulse Source Pulse Oximeter Intake Visit Reasons: f/u Type 2 DM Intake Note: Patient present today to follow up on Type 2 Diabetes Mellitus. Patient receives DME supplies through: Pharmacy Last Diabetic Eye exam: 11/2022 Last Podiatry Visit: None Random Glucose:176 mg/dl HgA1C: 7.8% 12/12/22 Cancer Registry Coordinator Required: Yes Cancer Registry Coordinator Language: Romanian Information Interpreted: non-clinical & clinical Accompanied by: Son Allergies No Known Allergies [No Known Allergies*] Allergy (Verified 01/12/23 08:46) Medication List - Last Reconciled 01/12/23 by Timmy Elias MD albuterol sulfate 90 mcg/actuation (ProAir HFA) 2 puffs inhalation Q4-6H PRN albuterol sulfate 2.5 mg inhalation Q4H PRN aripiprazole 2 mg PO DAILY aspirin 81 mg PO DAILY blood sugar diagnostic (FreeStyle Lite Strips) 5 times a day blood-glucose meter (FreeStyle Lite Meter kit) As directed cholecalciferol (vitamin D3) 50 mcg PO DAILY clonazepam 1 mg PO TID PRN clonidine HCl 0.1 mg PO BEDTIME PRN cyanocobalamin (vitamin B-12) 1,000 mcg IM [id number] docusate sodium 100 mg PO BID ferrous sulfate 325 mg PO Q OTHER DAY flash glucose scanning reader (FreeStyle Ortiz 2 [place]) As directed flash glucose sensor (FreeStyle Ortiz 2 Sensor kit) USE DIRECTED EVERY 14 DAYS fluticasone propion-salmeterol 230-21 mcg/actuation (Advair HFA) 2 puffs inhalation Q12H 30 days furosemide 20 mg PO QAM 30 days gabapentin 400 mg PO TID glucagon 3 mg/actuation (Baqsimi) 3 mg intranasal DAILY PRN ibuprofen 600 mg PO Q6H PRN insulin regular hum U-500 conc (Humulin R U-500 (Conc) Insulin Kwikpen) 30 units (0.06 mL) subcut BEDTIME insulin regular hum U-500 conc (Humulin R U-500 (Conc) Insulin Kwikpen) 40 units (0.08 mL) subcut DAILY levothyroxine 1 tab PO DAILY@0600 metformin 1,000 mg (2 x 500 mg) PO BID 90 days nortriptyline 1 cap PO BEDTIME omeprazole 20 mg PO DAILY@0630 oxybutynin chloride ER 10 mg PO DAILY pen needle, diabetic (BD Usha 2nd Gen Pen Needle) Twice a day propranolol 80 mg PO BID 90 days psyllium seed (sugar) (Metamucil (sugar) oral powder) 1 tbsp PO BID rosuvastatin (Crestor) 20 mg PO BEDTIME semaglutide (Ozempic) 1 mg (0.375 mL) subcut QWEEK thiamine HCl (vitamin B1) 100 mg PO DAILY TRUEplus Lancets (lancets) 4 times a day NS valsartan 160 mg PO DAILY HPI HPI Comments History of Present Illness Details Patient is a 57-year-old female with DM type 2 diagnosed 2009 who presents for management of diabetes. Past medical history: 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, HLD, HTN, gastroparesis Micro and macrovascular complications: retinopathy, Diabetes medications: Humulin U 500 50 before breakfast and 40 units with dinner, metformin ER 500 mg 2 pills twice a day. . Ozempic 1mg . Incontinent and therefore not appropriate for SGLT-2 Blood glucose monitoring: Ortiz download shows she is using the sensor 96% of the time. Average glucose is 196 with G mi of 8.0% and variability 25.5%. 38% of glucoses are in range with 61% hyperglycemia and 1% hypoglycemia. Pattern shows persistent hyperglycemia throughout the day with post-prandial breakfast spikes. Symptoms reported: denies numbness, tingling, cramping in lower extremities 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:having infrequent hypoglycemia 3 X/ wk Exercise: walking when weather permit, less in winter with cold. Medical Support Assistant - CDE education: has appointment scheduled with integrity manager Financial Services Internship: denies Ophthalmology evaluation: last mo Other specialists: urologist (for incontinence) Patient is preparing for bariatric surgery. States she took Ozempic in past and did not have any GI issues Laboratory Tests 03/20/21 05/27/21 05/27/21 10:48 10:12 10:12 Creatinine 0.69 Estimated GFR > 60 Hemoglobin A1c % 7.1 Triglycerides 97 Cholesterol 102 LDL Cholesterol, C alc 46 HDL Cholesterol 37 Vitamin B12 25-OH Vitamin D To hans 42.3 TSH 2.40 Microalb/Creat Rat io 46.2 05/27/21 10:12 Creatinine Estimated GFR Hemoglobin A1c % Triglycerides Cholesterol LDL Cholesterol, C alc HDL Cholesterol Vitamin B12 413 25-OH Vitamin D To hans TSH Microalb/Creat Rat io PFSH Medical History (Updated 11/28/22 @ 14:10 by Rahul Loredo PA-C) Depression Diabetes Coarse tremors Bleeding hemorrhoids Hyperlipidemia Dental crowns present Bilateral pneumonia Respiratory failure Hypothyroidism Paranoia (psychosis) Stress incontinence Insomnia Anxiety Depression Obstructive sleep apnea on CPAP Scoliosis of thoracolumbar spine Morbid obesity Chronic pain syndrome Sacroiliitis Inappropriate sinus tachycardia GERD (gastroesophageal reflux disease) 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 due to insulin snf (current) use of insulin Gastroparesis 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, uncontrolled Anemia Hemorrhoids Migraine Asthma Patellofemoral arthritis Patella-femoral syndrome Lumbar spondylosis Fibromyalgia Tubular adenoma Family history of colon cancer Vitamin D deficiency Dyslipidemia Genu valgum Low back pain Palpitations Chest pain HTN (hypertension) Surgical History (Updated 10/13/22 @ 12:02 by Ramsey Reynolds MD) Status post hemorrhoidectomy History of hemorrhoidectomy (~09/09/22) History of surgery Hx of section H/O esophagogastroduodenoscopy History of colonoscopy History of arthroscopy of right knee History of bilateral carpal tunnel release History of bladder surgery History of tubal ligation Hx of tonsillectomy Family History Father Stomach cancer Mother Heart disease HTN (hypertension) Diabetes Son No problems noted. Paternal Aunt Stomach cancer Sister Stomach cancer Sister Uterine cancer Social History Household Members: Family Household Members Other:: adult son Housing: Apartment Are you a primary career center advisor to a significant other at home: No Do you presently have visiting nurse or other home services: Yes (SU[employer] daily) Alcohol intake: never Patient Tobacco Use Status: Never used Tobacco Second Hand Smoke Exposure: No service: No Current occupational status: disabled Current occupation: lt handed Sexual orientation: Straight/Heterosexual Gender identity: Female Female Reproductive History Menstrual Age of Menarche: 17 Physical Exam Vital Signs: Last Vital Signs Pulse 89 01/12/23 08:28 BP 116/74 01/12/23 08:28 BMI result Body Mass Index 42.5 Absence of Cushingoid features. Absence of acromegalic features. Neck exam reveals nl size thyroid about 15 gms. No thyroid nodules palpable. No carotid bruits present. Lungs CTA. Heart S1 S2, Reg R/R. No M/R/ G. Skin exam reveals absence of vitiligo or acanthosis nigricans. Abdominal exam reveals Soft NT/ND with NA BS. No organomegaly present. Neck Other: . Extrem Other: Visual exam of foot performed. No ulcerations or open lesions. No onchomycosis, no callouses.Pulses 2 + distally Sensation intact to monofilament exam. Vibratory sensation sensed is decreased with 128 Hz tuning fork Assessment & Plan Assessment & Plan (1) 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, uncontrolled: Code(s): E11.65 - Type 2 diabetes mellitus with hyperglycemia Qualifiers: Glycemic state: with hypoglycemia Coma presence: without coma Qualified Code(s): E11.649 - Type 2 diabetes mellitus with hypoglycemia without coma Plan: is a 57-year-old female with history of type 2 diabetes being managed with U-500 insulin twice a day , metformin and Januvia with improving but fair glycemic control but episodes of hypoglycemia intermittently. She has known microvascular complications namely retinopathy. Plan is to increase the Ozempic to 2 mg weekly.. If the increase Ozempic does not bring the patient to goal, could consider switching to Mounjaro She is considering going for gastric bypass surgery. She also told to follow up with healthcare educator Orders: Orders Microalbumin, Random (w Creat) Today E11.65 - Type 2 diabetes mellitus with hyperglycemia Medications: New semaglutide (Ozempic) 2 mg (0.75 mL) subcut QWEEK 3 mL 4RF Discontinued semaglutide (Ozempic) Discontinued Reason: Doctor's Order 1 mg (0.375 mL) subcut QWEEK 3 mL 4RF Coding Level of Care Code Est Pt Level 4 (13094) Diagnoses Uncontrolled type 2 diabetes mellitus with hypoglycemia without coma E11.649 Glycemic state: with hypoglycemia Coma presence: without coma
[2023-01-12 08:40] LABS: Glucose, Whole Blood 176 mg/dL (60-115)
== END 2023-01-12 08:56 | disposition home or self-care (01) ==
PROVIDERS: PCP Family Medicine; Visit Provider Internal Medicine Endocrinology, Diabetes & Metabolism
DX: E11.649 Type 2 diabetes mellitus with hypoglycemia without coma (principal)
CPT/HCPCS: 99214

== ENCOUNTER → 2023-01-12 08:26 | Outpatient (BNVA) | payer MEDICAID, SELFPAY | PROVIDERS: PCP Family Medicine; Visit Provider Internal Medicine Endocrinology, Diabetes & Metabolism | DX: E11.649 Type 2 diabetes mellitus with hypoglycemia without coma (principal) | CPT/HCPCS: 82043; 82570; 82947; 99212 ==

== ENCOUNTER 2023-01-12 09:00 | Outpatient (REF) | payer MEDICAID, SELFPAY ==
[2023-01-12 11:12] LABS: Creatinine Urine 68.98 mg/dL; Microalbum/Creatinine Ratio Ur 14.4 ug/mg cr (<30)
== END 2023-01-12 09:01 | disposition home or self-care (01) ==
LOC: HO.10HDL 09:00
PROVIDERS: Visit Provider Internal Medicine Endocrinology, Diabetes & Metabolism
DX: E11.65 Type 2 diabetes mellitus with hyperglycemia (principal)
CPT/HCPCS: 82043; 82570

== ENCOUNTER 2023-01-14 10:07 | Outpatient (AMB) | payer MEDICAID, SELFPAY ==
[2023-01-14 10:10] VITALS: BP 124/84; PULSE 86; O2SAT 95; BMI 42.2
--- NOTE | 2023-01-14 10:10 | A.OFFVIS_ITS ---
Intake Vital Signs 01/14/23 10:10 Height 5 ft 4 in Weight 245 lb 13.047 oz BMI 42.2 BP 124/84 Blood Pressure Location Rt brachial Position Sitting Pulse 86 Pulse Source Doppler Pulse Oximetry (%) 95 Oxygen Delivery Method Room Air Intake Visit Reasons: Asthma Allergies No Known Allergies [No Known Allergies*] Allergy (Verified 01/14/23 10:12) HPI Asthma HPI Details 57-year-old lady, nonsmoker, with underl patrick DINA on CPAP managed by her primary care provider, followed for restrictive ventilatory defect and asthma.? She has been using Advair and albuterol MDI with suboptimal control his symptoms. She does complain of intermittent dyspnea on exertion that is relieved by albuterol MDI. Patient stopped following up with weight management. [facility] Medical History (Updated 11/28/22 @ 14:10 by Rahul Loredo PA-C) Depression Diabetes Coarse tremors Bleeding hemorrhoids Hyperlipidemia Dental crowns present Bilateral pneumonia Respiratory failure Hypothyroidism Paranoia (psychosis) Stress incontinence Insomnia Anxiety Depression Obstructive sleep apnea on CPAP Scoliosis of thoracolumbar spine Morbid obesity Chronic pain syndrome Sacroiliitis Inappropriate sinus tachycardia GERD (gastroesophageal reflux disease) 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 due to insulin halfway (current) use of insulin Gastroparesis 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, uncontrolled Anemia Hemorrhoids Migraine Asthma Patellofemoral arthritis Patella-femoral syndrome Lumbar spondylosis Fibromyalgia Tubular adenoma Family history of colon cancer Vitamin D deficiency Dyslipidemia Genu valgum Low back pain Palpitations Chest pain HTN (hypertension) Surgical History Status post hemorrhoidectomy History of hemorrhoidectomy (~09/09/22) History of surgery Hx of section H/O esophagogastroduodenoscopy History of colonoscopy History of arthroscopy of right knee History of bilateral carpal tunnel release History of bladder surgery History of tubal ligation Hx of tonsillectomy Family History Father Stomach cancer Mother Heart disease HTN (hypertension) Diabetes Son No problems noted. Paternal Aunt Stomach cancer Sister Stomach cancer Sister Uterine cancer Social History Household Members: Family Household Members Other:: adult son Housing: Apartment Are you a primary director long term care to a significant other at home: No Do you presently have visiting nurse or other home services: Yes (COKE OVEN PATCHER daily) Alcohol intake: never Patient Tobacco Use Status: Never used Tobacco Second Hand Smoke Exposure: No service: No Current occupational status: disabled Current occupation: lt handed Sexual orientation: Straight/Heterosexual Gender identity: Female Female Reproductive History Menstrual Age of Menarche: 17 Review of Systems Const Denies daytime sleepiness, Denies excessive sweating, Denies fatigue, Denies fever(s), Denies lethargy, Denies malaise, Denies night sweats, Denies snoring and Denies weight loss Eyes Denies blurry vision and Denies itchy eyes ENT Denies nasal congestion, Denies post nasal drip, Denies sinus pain, Denies sinus pressure and Denies other ( Thrush) Card Denies chest pain, Denies pedal edema, Denies dyspnea, Reports dyspnea on exertion, Denies orthopnea and Denies paroxysmal nocturnal dyspnea Resp Denies cough, Denies hemoptysis, Denies excessive phlegm production, Denies dyspnea, Reports dyspnea on exertion, Denies snoring and Denies wheezing GI Denies abdominal pain and Denies heartburn Musc Denies myalgias, Denies arthralgias and Denies joint swelling Skin/Breast Denies rash Neuro Denies memory loss and Denies seizure-like activity Psych Denies abnormal sleep pattern, Denies anxiety and Denies memory loss Endo Denies excessive sweating, Denies fatigue and Denies heat intolerance Ray/Lymph Denies easy bruising Aller/Immun Denies itchy eyes, Denies seasonal rhinorrhea and Denies wheezing Physical Exam Vital Signs: Last Vital Signs Pulse 86 01/14/23 10:10 BP 124/84 01/14/23 10:10 Pulse Ox 95 01/14/23 10:10 Oxygen Delivery Method Room Air 01/14/23 10:10 BMI result Body Mass Index 42.2 Const General: no acute distress and alert Nutritional Appearance: obese Orientation/consciousness: Other orientation findings ( oriented) HEENT Head: Yes atraumatic Eyes General: appearance normal, both eyes and all related structures Sclerae: sclerae normal EOM: EOMs intact bilaterally Neck Neck: Yes supple Lymphatic: no lymphadenopathy noted Resp Effort & Inspection: normal respiratory effort and no use of accessory muscles Auscultation: clear to auscultation bilaterally Cardio Rate: regular rate Rhythm: regular rhythm Heart sounds: no gallops, no murmurs and no rubs Skin General skin exam: other ( warm) Extrem General: No clubbing, No cyanosis and No edema Assessment & Plan Assessment & Plan (1) Restrictive lung disease: Code(s): J98.4 - Other disorders of lung Plan: Secondary to is currently over the as and obesity. Patient's troponin up with med management. Patient has been advised to resume follow-up with weight management and patient was counseled on diet and physical activity in weight management. (2) Asthma: Code(s): J45.909 - Unspecified asthma, uncomplicated Plan: Suboptimally controlled on Advair. Will switch to B rezTri. Continue albuterol MDI/nebs. Medications: New pkgaftabyk-vtnyoksx-uncdxnyrhx 160-9-4.8 mcg/actuation (Breztri Aerosphere) 2 inhalations inhalation BID 1 ea 6RF 30 days Discontinued fluticasone propion-salmeterol 230-21 mcg/actuation (Advair HFA) Discontinued Reason: Doctor's Order 2 puffs inhalation Q12H 30 days 1 ea 6RF Coding Level of Care Code Est Pt Level 4 (34063) Diagnoses Restrictive lung disease J98.4 Asthma J45.909
== END 2023-01-14 10:26 | disposition home or self-care (01) ==
PROVIDERS: PCP Family Medicine; Visit Provider Internal Medicine Pulmonary Disease
DX: J98.4 Other disorders of lung (principal); J45.909 Unspecified asthma, uncomplicated
CPT/HCPCS: 99214

== ENCOUNTER → 2023-01-14 10:07 | Outpatient (BNVA) | payer MEDICAID, SELFPAY | PROVIDERS: PCP Family Medicine; Visit Provider Internal Medicine Pulmonary Disease | DX: J45.909 Unspecified asthma, uncomplicated (principal); J98.4 Other disorders of lung | CPT/HCPCS: 99212 ==

== ENCOUNTER 2023-01-19 09:34 | Outpatient (AMB) | payer MEDICAID, SELFPAY ==
[2023-01-19 09:35] VITALS: BP 141/69; PULSE 87; BMI 41.9
--- NOTE | 2023-01-19 09:35 | MHC.OFFVIS ---
Intake Vital Signs 01/19/23 09:35 Height 5 ft 4 in Weight 244 lb 4.355 oz BMI 41.9 BP 141/69 H Blood Pressure Location Lt brachial Position Sitting Pulse 87 Pulse Source Pulse Oximeter Intake Visit Reasons: 6 mnth follow up Intake Note: Pt presents to the office today for a 6 month follow up. Pt states she is feeling well. Pt states her acid reflux is doing better and denies any new GI concerns at this time. Accompanied by: Daughter Allergies No Known Allergies [No Known Allergies*] Allergy (Verified 01/19/23 09:38) Medication List - Last Reconciled 01/19/23 by Kasey Vanessa PA-C albuterol sulfate 90 mcg/actuation (ProAir HFA) 2 puffs inhalation Q4-6H PRN albuterol sulfate 2.5 mg inhalation Q4H PRN aripiprazole 2 mg PO DAILY aspirin 81 mg PO DAILY blood sugar diagnostic (FreeStyle Lite Strips) 5 times a day blood-glucose meter (FreeStyle Lite Meter kit) As directed cholecalciferol (vitamin D3) 50 mcg PO DAILY clonazepam 1 mg PO TID PRN clonidine HCl 0.1 mg PO BEDTIME PRN cyanocobalamin (vitamin B-12) 1,000 mcg IM [id number] docusate sodium 100 mg PO BID ferrous sulfate 325 mg PO Q OTHER DAY flash glucose scanning reader (ElectrochaeaStyle Ortiz 2 [place]) As directed flash glucose sensor (FreeStyle Ortiz 2 Sensor kit) USE DIRECTED EVERY 14 DAYS fluticasone propion-salmeterol 232-14 mcg/actuation (AirDuo RespiClick) 1 inh inhalation BID 30 days furosemide 20 mg PO QAM 30 days gabapentin 400 mg PO TID glucagon 3 mg/actuation (Baqsimi) 3 mg intranasal DAILY PRN ibuprofen 600 mg PO Q6H PRN insulin regular hum U-500 conc (Humulin R U-500 (Conc) Insulin Kwikpen) 30 units (0.06 mL) subcut BEDTIME insulin regular hum U-500 conc (Humulin R U-500 (Conc) Insulin Kwikpen) 40 units (0.08 mL) subcut DAILY levothyroxine 1 tab PO DAILY@0600 metformin 1,000 mg (2 x 500 mg) PO BID 90 days nortriptyline 1 cap PO BEDTIME omeprazole 20 mg PO DAILY@0630 oxybutynin chloride ER 10 mg PO DAILY pen needle, diabetic (BD Usha 2nd Gen Pen Needle) Twice a day propranolol 80 mg PO BID 90 days psyllium seed (sugar) (Metamucil (sugar) oral powder) 1 tbsp PO BID rosuvastatin (Crestor) 20 mg PO BEDTIME semaglutide (Ozempic) 2 mg (0.75 mL) subcut QWEEK thiamine HCl (vitamin B1) 100 mg PO DAILY tiotropium bromide 2.5 mcg/actuation (Spiriva Respimat) 2 puffs inhalation DAILY 30 days TRUEplus Lancets (lancets) 4 times a day NS valsartan 160 mg PO DAILY HPI HPI Comments History of Present Illness Details 57-year-old female follows up, she was seen with persistent acid reflux she was following with weight management at that time back in June. She was due for screening colonoscopy however wanted hold off She presents today acid reflux has improved- she is working with wt management Bowels- no issues Appetite is good She is depressed, Here today with her daughter [facility] Medical History Depression Diabetes Coarse tremors Bleeding hemorrhoids Hyperlipidemia Dental crowns present Bilateral pneumonia Respiratory failure Hypothyroidism Paranoia (psychosis) Stress incontinence Insomnia Anxiety Depression Obstructive sleep apnea on CPAP Scoliosis of thoracolumbar spine Morbid obesity Chronic pain syndrome Sacroiliitis Inappropriate sinus tachycardia GERD (gastroesophageal reflux disease) 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 Gastroparesis 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, uncontrolled Anemia Hemorrhoids Migraine Asthma Patellofemoral arthritis Patella-femoral syndrome Lumbar spondylosis Fibromyalgia Tubular adenoma Family history of colon cancer Vitamin D deficiency Dyslipidemia Genu valgum Low back pain Palpitations Chest pain HTN (hypertension) Surgical History Status post hemorrhoidectomy History of hemorrhoidectomy (~09/09/22) History of surgery Hx of section H/O esophagogastroduodenoscopy History of colonoscopy History of arthroscopy of right knee History of bilateral carpal tunnel release History of bladder surgery History of tubal ligation Hx of tonsillectomy Family History Father Stomach cancer Mother Heart disease HTN (hypertension) Diabetes Son No problems noted. Paternal Aunt Stomach cancer Sister Stomach cancer Sister Uterine cancer Social History Household Members: Family Household Members Other:: adult son Housing: Apartment Are you a primary career coach to a significant other at home: No Do you presently have visiting nurse or other home services: Yes (SHELLFISH SHUCKER daily) Alcohol intake: never Patient Tobacco Use Status: Never used Tobacco Second Hand Smoke Exposure: No service: No Current occupational status: disabled Current occupation: lt handed Sexual orientation: Straight/Heterosexual Gender identity: Female Female Reproductive History Menstrual Age of Menarche: 17 Physical Exam Vital Signs: Last Vital Signs Pulse 87 01/19/23 09:35 BP 141/69 H 01/19/23 09:35 BMI result Body Mass Index 41.9 Results Reviewed Results Reviewed: CT-08/2022 IMPRESSION: 1. Likely early cirrhotic hepatic morphology. 2. No acute findings. 01/18/18- Colonoscopy- Martínez- adenoma- Assessment & Plan Assessment & Plan (1) Cirrhosis of liver: Comment: reviewed CT 08/2022- likely NAFLD- will r/o other causes Code(s): K74.60 - Unspecified cirrhosis of liver Plan: Cirrhosis discussed disease state- F/U Q6 mos- labs and U/S- low na diet good wt, glucose and lipid control Abstain from etoh (2) Anxiety: Comment: Anxiety and depression-no suicidal homicidal ideation Code(s): F41.9 - Anxiety disorder, unspecified (3) GERD (gastroesophageal reflux disease): Comment: Continue omeprazole daily-avoid culprits. Remain upright 2-3 hours after eating especially after evening meal. Code(s): K21.9 - Gastro-esophageal reflux disease without esophagitis (4) History of colon polyps: Comment: Was custom poor insight follow-up colonoscopy for polyp surveillance however patient-somewhat overwhelmed at this time we will see her back in follow-up to further discuss. Code(s): Z86.010 - Personal history of colonic polyps Plan: due for 5 year 01/22- will hold off Plan Cirrhosis discussed disease state- F/U Q6 mos- labs and U/S- low na diet good wt, glucose and lipuid control Abstain from etoh Labs Reflux precautions/ reviewed- Orders: Orders Comprehensive Met. Panel 3 Months K74.60 - Unspecified cirrhosis of liver GRACIA Reflex Titer and Pattern 3 Months K74.60 - Unspecified cirrhosis of liver Alpha 1 Anti-trypsin Today K74.60 - Unspecified cirrhosis of liver Complete Blood Count Auto Diff 3 Months K74.60 - Unspecified cirrhosis of liver Hepatitis A,B,C Profile 3 Months K74.60 - Unspecified cirrhosis of liver Ceruloplasmin Today K74.60 - Unspecified cirrhosis of liver US abdomen limited 3 Months K74.60 - Unspecified cirrhosis of liver Patient Instructions: Cirrhosis discussed disease state- F/U Q6 mos- labs and U/S- low na diet good wt, glucose and lipuid control Abstain from etoh Labs Reflux precautions/ reviewed- See her back for colon screening when time appropriate No major barriers to understanding her identify Appreciate the opportunity assist in the care the patient Coding Level of Care Code Est Pt Level 4 (24475) Diagnoses Cirrhosis of liver K74.60 Anxiety F41.9 GERD (gastroesophageal reflux disease) K21.9 History of colon polyps Z86.010 Time Spent (min) 40 Comment Cirrhosis new diagnosis
== END 2023-01-19 10:59 | disposition home or self-care (01) ==
PROVIDERS: PCP Family Medicine; Visit Provider Physician Assistant
DX: K74.60 Unspecified cirrhosis of liver (principal); F41.9 Anxiety disorder, unspecified; K21.9 Gastro-esophageal reflux disease without esophagitis; Z86.010 Personal history of colon polyps
CPT/HCPCS: 99214

== ENCOUNTER → 2023-01-19 09:34 | Outpatient (BNVA) | payer MEDICAID, SELFPAY | PROVIDERS: PCP Family Medicine; Visit Provider Physician Assistant | DX: K74.60 Unspecified cirrhosis of liver (principal); K21.9 Gastro-esophageal reflux disease without esophagitis; F41.9 Anxiety disorder, unspecified; Z86.010 Personal history of colon polyps | CPT/HCPCS: 99212 ==

== ENCOUNTER 2023-02-02 09:51 | Outpatient (AMB) | payer MEDICAID, SELFPAY ==
--- NOTE | 2023-02-02 09:59 | MHC.OFFVIS ---
Intake Vital Signs 02/02/23 10:06 Height 5 ft 4 in Weight 247 lb BMI 42.4 BP 136/61 Blood Pressure Location Rt brachial Position Sitting Pulse 89 Intake Visit Reasons: Hemorrhoidectomy follow up Intake Note: This patient presents for a follow-up assessment status post hemorrhoidectomy, 09/09/2022. Patient c/o; reports some days has constipation and other days soft stools, denies rectal bleeding. 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 consultant Accompanied by: Daughter Allergies No Known Allergies [No Known Allergies*] Allergy (Verified 02/02/23 10:08) Medication List - Last Reconciled 02/02/23 by Ramsey Reynolds MD albuterol sulfate 90 mcg/actuation (ProAir HFA) 2 puffs inhalation Q4-6H PRN albuterol sulfate 2.5 mg inhalation Q4H PRN aripiprazole 2 mg PO DAILY aspirin 81 mg PO DAILY blood sugar diagnostic (FreeStyle Lite Strips) 5 times a day blood-glucose meter (FreeStyle Lite Meter kit) As directed cholecalciferol (vitamin D3) 50 mcg PO DAILY clonazepam 1 mg PO TID PRN clonidine HCl 0.1 mg PO BEDTIME PRN cyanocobalamin (vitamin B-12) 1,000 mcg IM [id number] docusate sodium 100 mg PO BID ferrous sulfate 325 mg PO Q OTHER DAY flash glucose scanning reader (Xintu ShujuStyle Ortiz 2 [place]) As directed flash glucose sensor (FreeStyle Ortiz 2 Sensor kit) USE DIRECTED EVERY 14 DAYS fluticasone propion-salmeterol 232-14 mcg/actuation (AirDuo RespiClick) 1 inh inhalation BID 30 days furosemide 20 mg PO QAM 30 days gabapentin 400 mg PO TID glucagon 3 mg/actuation (Baqsimi) 3 mg intranasal DAILY PRN ibuprofen 600 mg PO Q6H PRN insulin regular hum U-500 conc (Humulin R U-500 (Conc) Insulin Kwikpen) 30 units (0.06 mL) subcut BEDTIME insulin regular hum U-500 conc (Humulin R U-500 (Conc) Insulin Kwikpen) 40 units (0.08 mL) subcut DAILY levothyroxine 1 tab PO DAILY@0600 metformin 1,000 mg (2 x 500 mg) PO BID 90 days nortriptyline 1 cap PO BEDTIME omeprazole 20 mg PO DAILY@0630 oxybutynin chloride ER 10 mg PO DAILY pen needle, diabetic (BD Usha 2nd Gen Pen Needle) Twice a day propranolol 80 mg PO BID 90 days psyllium seed (sugar) (Metamucil (sugar) oral powder) 1 tbsp PO BID rosuvastatin (Crestor) 20 mg PO BEDTIME semaglutide (Ozempic) 2 mg (0.75 mL) subcut QWEEK thiamine HCl (vitamin B1) 100 mg PO DAILY tiotropium bromide 2.5 mcg/actuation (Spiriva Respimat) 2 puffs inhalation DAILY 30 days TRUEplus Lancets (lancets) 4 times a day NS valsartan 160 mg PO DAILY HPI Hemorrhoidectomy follow up HPI Details She is here for follow-up after hemorrhoidectomy last August,. She says she is doing much better. She denies any significant pain. Her bowel movements are much better. She says that her urgency is still present but this has improved. [facility] Medical History Depression Diabetes Coarse tremors Bleeding hemorrhoids Hyperlipidemia Dental crowns present Bilateral pneumonia Respiratory failure Hypothyroidism Paranoia (psychosis) Stress incontinence Insomnia Anxiety Depression Obstructive sleep apnea on CPAP Scoliosis of thoracolumbar spine Morbid obesity Chronic pain syndrome Sacroiliitis Inappropriate sinus tachycardia GERD (gastroesophageal reflux disease) 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 due to insulin snf (current) use of insulin Gastroparesis 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, uncontrolled Anemia Hemorrhoids Migraine Asthma Patellofemoral arthritis Patella-femoral syndrome Lumbar spondylosis Fibromyalgia Tubular adenoma Family history of colon cancer Vitamin D deficiency Dyslipidemia Genu valgum Low back pain Palpitations Chest pain HTN (hypertension) Surgical History Status post hemorrhoidectomy History of hemorrhoidectomy (~09/09/22) History of surgery Hx of section H/O esophagogastroduodenoscopy History of colonoscopy History of arthroscopy of right knee History of bilateral carpal tunnel release History of bladder surgery History of tubal ligation Hx of tonsillectomy Family History Father Stomach cancer Mother Heart disease HTN (hypertension) Diabetes Son No problems noted. 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) Alcohol intake: never Patient Tobacco Use Status: Never used Tobacco Second Hand Smoke Exposure: No service: No Current occupational status: disabled Current occupation: lt handed Sexual orientation: Straight/Heterosexual Gender identity: Female Female Reproductive History Menstrual Age of Menarche: 17 Review of Systems Const Denies chills and Denies fever(s) Card Denies chest pain, Denies dyspnea and Denies dyspnea on exertion Resp Denies cough, Denies dyspnea and Denies dyspnea on exertion GI Denies hematochezia and Denies change in bowel habits Denies hematuria Musc Denies back pain and Denies limited range of motion Neuro Details: Has tremors Denies focal weakness and Denies convulsions Psych Denies depression and Denies mood swings Physical Exam Vital Signs: Last Vital Signs Pulse 89 02/02/23 10:06 BP 136/61 02/02/23 10:06 BMI result Body Mass Index 42.4 Const Other: Morbidly obese General: comfortable and no acute distress Resp Effort & Inspection: normal respiratory effort Cardio Rate: regular rate GI Other: Has large pannus Rectal exam - hemorrhoidectomy sites are well healed Palpation (GI): Soft to palpation Assessment & Plan Assessment & Plan (1) Bleeding hemorrhoids: Code(s): K64.9 - Unspecified hemorrhoids Plan: She had undergone hemorrhoidectomy last August, and is now much better. She denies any significant bleeding. Her only complaint is she does have some urgency although this has improved. I had advised her on taking a lot of fiber and to continue with Metamucil She is also seeing a neurologist in [place] because of her tremors. This seems to be secondary to onset of Parkinson's. Coding Level of Care Code Est Pt Level 2 (46569) Diagnoses Bleeding hemorrhoids K64.9
[2023-02-02 10:06] VITALS: BP 136/61; PULSE 89; BMI 42.4
== END 2023-02-02 10:17 | disposition home or self-care (01) ==
PROVIDERS: PCP Family Medicine; Visit Provider Surgery
DX: K64.9 Unspecified hemorrhoids (principal)
CPT/HCPCS: 99212

== ENCOUNTER → 2023-02-02 09:51 | Outpatient (BNVA) | payer MEDICAID, SELFPAY | PROVIDERS: PCP Family Medicine; Visit Provider Surgery | DX: K64.9 Unspecified hemorrhoids (principal) | CPT/HCPCS: 99212 ==

== ENCOUNTER 2023-02-13 09:27 | Outpatient (AMB) | payer MEDICAID, SELFPAY ==
--- NOTE | 2023-02-13 10:11 | MHC.AMDMED ---
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/Gardener Required: Yes Indoor Landscaper/Gardener Language: Manager Technology Name: [facility] – [place] Information Interpreted: non-clinical & clinical Accompanied by: Son Allergies No Known Allergies [No Known Allergies*] Allergy (Verified 02/02/23 10:08) HPI Comprehensive Diabetes Asmnt Most Recent Diabetes Results: Microalb/Creat Ratio 14.4 ug/mg cr (<30) 01/12/23 PFSH Medical History Depression Diabetes Coarse tremors Bleeding hemorrhoids Hyperlipidemia Dental crowns present Bilateral pneumonia Respiratory failure Hypothyroidism Paranoia (psychosis) Stress incontinence Insomnia Anxiety Depression Obstructive sleep apnea on CPAP Scoliosis of thoracolumbar spine Morbid obesity Chronic pain syndrome Sacroiliitis Inappropriate sinus tachycardia GERD (gastroesophageal reflux disease) 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 due to insulin superintendent container terminal (current) use of insulin Gastroparesis 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, uncontrolled Anemia Hemorrhoids Migraine Asthma Patellofemoral arthritis Patella-femoral syndrome Lumbar spondylosis Fibromyalgia Tubular adenoma Family history of colon cancer Vitamin D deficiency Dyslipidemia Genu valgum Low back pain Palpitations Chest pain HTN (hypertension) Surgical History Status post hemorrhoidectomy History of hemorrhoidectomy (~09/09/22) History of surgery Hx of section H/O esophagogastroduodenoscopy History of colonoscopy History of arthroscopy of right knee History of bilateral carpal tunnel release History of bladder surgery History of tubal ligation Hx of tonsillectomy Family History Father Stomach cancer Mother Heart disease HTN (hypertension) Diabetes Son No problems noted. 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) Alcohol intake: never Patient Tobacco Use Status: Never used Tobacco Second Hand Smoke Exposure: No service: No Current occupational status: disabled Current occupation: lt handed Sexual orientation: Straight/Heterosexual Gender identity: Female Female Reproductive History Menstrual Age of Menarche: 17 Assessment & Plan Assessment & Plan (1) Diabetic nephropathy associated with type 2 diabetes mellitus: Code(s): E11.21 - Type 2 diabetes mellitus with diabetic nephropathy Plan: Learning objectives: The patient was provided with verbal and written education on the following topics as outlined below. The patient met all learning objectives and was able to verbalize understanding and provide teach back of education topics discussed . The patient was provided with the opportunity to ask questions and all questions were answered. Patient Assessment Assess patient education level/literacy/barriers, patient identified high carbohydrate foods that she is eating from [facility] food carb list Patient questions/concerns, patient's last A1c 7 8%. However past 2 weeks average glucose 253 mg/dL patient is currently taking Ozempic 2 mg weekly Humulin U 500 50 units b.i.d. metformin 1000 mg b.i.d. patient denies missing medications patient does report eating many high carbohydrate foods, and drinks regular soda daily What is Diabetes? Pathophysiology How the body produces and uses insulin Identify type of DM Risk factors Signs of Diabetes Brief overview of Diabetes Management Monitoring blood sugar Following a meal plan Regular exercise Maintaining a healthy weight Taking medication as needed Members of the care team (PCP, RN, MA, RD, CDE, inventory auditor) Blood glucose monitoring When/how often to test Target blood sugar ranges patient is using freestyle Ortiz 2 average glucose for the past 2 weeks 253 mg/dL 89% above target 11% at target 0% below target Introduction to Nutrition Importance of healthy diet in managing DM Diet is personalized to individual preference Review patient?s regular diet/food preferences Who prepares meals/does food shopping/ Dining out?/ Barriers? How diet effects glucose Eating 3 balanced meals a day with small, healthy snacks between meals Review food groups Carbohydrates: What is a carbohydrate/Which food/food groups are considered carbohydrates Effect of carbohydrates on blood glucose Portion sizes Reading food labels Basic carb counting (if applicable per nursing assessment) Plate method Meal planning Recommendations: Follow plate method, consistent carbs and read nutritional labels. Smart Goal:Patient will reduce the amount of regular soda she is drinking from now until next visit in 1 month Educational Materials: The patient was provided with the following written educational materials: Planning Healthy Meals Handout Patient Response to instructions: Comprehension of Instructions: Fair Readiness to make changes: Contemplation How confident they feel about making changes: Fair Patient Instructions: Incluir actividad diaria regular. ADA recomienda 30 minutos de ejercicio 5 d?as a la semana. P?rdida de peso, hable con el PCP o el cardi?logo antes de comenzar un nuevo plan. Mida el nivel de az?car en la fly seg?n las indicaciones; Ayuno y comida m?s radha de 2hpp. Observe las tendencias en los resultados. Utilice los resultados y eval?e c?mo los alimentos, la actividad f?la y los medicamentos afectan los resultados de az?car en la fly. Lleve el gluc?metro o CGM a la pr?xima visita. Conocer los medicamentos para la diabetes, leblanc acci?n, los efectos secundarios, la eficacia, la toxicidad, la dosis prescrita, el momento y la frecuencia de administraci?n apropiados, el efecto de las dosis olvidadas y retrasadas y las instrucciones de almacenamiento, viaje y seguridad. T?cnicas de resoluci?n de problemas para el seguimiento de episodios de hipo/hiperglucemia y tratamientos. Reducir los comportamientos de reducci?n de riesgos, dejar de fumar, ex?menes regulares de ojos, pies y dentales. Coding Level of Care Code Est Pt Level 1 (67846) Diagnoses Diabetic nephropathy associated with type 2 diabetes mellitus E11.21
== END 2023-02-13 10:16 | disposition home or self-care (01) ==
PROVIDERS: PCP Family Medicine; Visit Provider Registered Nurse Diabetes Educator
DX: E11.21 Type 2 diabetes mellitus with diabetic nephropathy (principal)

== ENCOUNTER → 2023-02-13 09:27 | Outpatient (BNVA) | payer MEDICAID, SELFPAY | PROVIDERS: PCP Family Medicine; Visit Provider Registered Nurse Diabetes Educator | DX: E11.21 Type 2 diabetes mellitus with diabetic nephropathy (principal) | CPT/HCPCS: 99211 ==

== ENCOUNTER 2023-03-20 12:33 | Outpatient (AMB) | payer MEDICAID, SELFPAY ==
--- NOTE | 2023-03-20 12:48 | MHC.OFFVIS ---
Intake Vital Signs 03/20/23 12:54 Height 5 ft 4 in Weight 247 lb BMI 42.4 Intake Visit Reasons: Ov- Bilateral knee pain Intake Note: Candace 57 yr old female presents today S/P bilateral Durolane injections from 11/28/22. States injection helped until recently however she is not having pain and discomfort again. Allergies No Known Allergies [No Known Allergies*] Allergy (Verified 03/20/23 12:55) HPI Ov- Bilateral knee pain HPI Details 57-year-old female who returns to the office today for a follow-up of bilateral knee pain. She currently states she has pain and discomfort in her bilateral knees. She had a bilateral knee Durolane injections on 11/28/22 which provided her relief until recently. She is interested in having bilateral knee cortisone injection today. 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 due to insulin skilled nursing (current) use of insulin Gastroparesis 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, uncontrolled Anemia Hemorrhoids Migraine Asthma Patellofemoral arthritis Patella-femoral syndrome Lumbar spondylosis Fibromyalgia Tubular adenoma Family history of colon cancer Vitamin D deficiency Dyslipidemia Genu valgum Low back pain Palpitations Chest pain HTN (hypertension) Surgical History Status post hemorrhoidectomy History of hemorrhoidectomy (~09/09/22) History of surgery Hx of section H/O esophagogastroduodenoscopy History of colonoscopy History of arthroscopy of right knee History of bilateral carpal tunnel release History of bladder surgery History of tubal ligation Hx of tonsillectomy Family History Father Stomach cancer Mother Heart disease HTN (hypertension) Diabetes Son No problems noted. 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 Tenderness along the medial and lateral joint line. Full ROM with crepitus. Negative Mami?s. No ligamentous laxity. NVI. Office Procedures Joint Injection/Drain Joint Injection/Drain Primary Site: right knee Secondary Site: left knee Prep: site was prepped using aseptic technique, ethochloride spray was applied and injection warnings given Injected: 40 mg of, DepoMedrol, with 8 mL of, 1% plain lidocaine and in the joint Approach Used: anterolateral Procedure: The patient tolerated the procedure well and there was some relief with the local anesthesia Coding 33326 - Glenohumeral/Tronchanteric Bursa/Intraarticular Procedure code (CPT) selection complete Assessment & Plan Assessment & Plan (1) Osteoarthritis of knees, bilateral: Code(s): M17.0 - Bilateral primary osteoarthritis of knee Qualifiers: Osteoarthritis type: primary Qualified Code(s): M17.0 - Bilateral primary osteoarthritis of knee Plan We discussed options today which include steroid injection. They did consent to move forward with the bilateral knee injection, which was tolerated well. I recommended rest, ice and elevation and OTC anti-inflammatories PRN for discomfort. If symptoms persist or worsens over the next 6-8 weeks, patient will contact the office, otherwise follow-up as needed. Patient Instructions: Scribed for Rahul Loredo PA-C, by Missael Mchugh medical secretary teacher, on 03/20/2023 at 1:00 PM ANNIE. Rahul Olivera PA-C, have personally reviewed and agree with the information entered by the scribe. Coding Level of Care Code Est Pt Level 3 (72673) Diagnoses Primary osteoarthritis of both knees M17.0 Osteoarthritis type: primary CPT Codes Coding - Joint 7: 50399 - Glenohumeral/Tronchanteric Bursa/Intraarticular ([id number])
[2023-03-20 12:54] VITALS: BMI 42.4
== END 2023-03-20 13:18 | disposition home or self-care (01) ==
PROVIDERS: PCP Family Medicine; Visit Provider Physician Assistant
DX: M17.0 Bilateral primary osteoarthritis of knee (principal)
CPT/HCPCS: 20610; 99213

== ENCOUNTER → 2023-03-20 12:33 | Outpatient (BNVA) | payer MEDICAID, SELFPAY | PROVIDERS: PCP Family Medicine; Visit Provider Physician Assistant | DX: M17.0 Bilateral primary osteoarthritis of knee (principal) | CPT/HCPCS: 20610; 99212; J1020 ==

== ENCOUNTER 2023-04-17 08:29 | Outpatient (REF) | payer MEDICAID, SELFPAY ==
--- NOTE | ~2023-04-17 | US_ITS ---
EXAMINATION: US ABDOMEN LIMITED CLINICAL INFORMATION: Unspecified cirrhosis of liver. COMPARISON: CT abdomen and pelvis 09/12/2022. Ultrasound abdomen complete 07/22/2022. Ultrasound abdomen limited 04/01/2022. TECHNIQUE: Real-time imaging of the right upper quadrant abdominal viscera. Limited visualization due to bowel gas. FINDINGS: PANCREAS: Limited visualization of pancreatic tail and head. Imaged portion of pancreatic body is unremarkable. ABDOMINAL AORTA: Limited visualization. INFERIOR VENA CAVA: Visualized portions are normal. LIVER: Hepatomegaly, 19.2 cm. Nodular hepatic contour. Increased hepatic parenchymal heterogeneity and echogenicity could be associated with hepatocellular disease/hepatic steatosis and substantially limits visualization. Correlation with liver function tests and clinical exam recommended to determine further management. GALLBLADDER: No gallstones. Gallbladder wall thickness of 3 mm. COMMON BILE DUCT: Normal in caliber measuring 0.5 cm in diameter. RIGHT KIDNEY: No hydronephrosis. No renal calculi. Limited visualization. Probable column of Dam[place] and possible prominent perinephric fat are difficult to characterize due to limited visualization. The kidney measures 12.4 cm in maximum dimension. LEFT KIDNEY: No hydronephrosis. No renal calculi. Limited visualization. The kidney measures 13.3 cm in maximum dimension. SPLEEN: Normal. The spleen measures 11.5 cm in maximum dimension. FREE FLUID: None. US/US abdomen limited IMPRESSION: Hepatomegaly, 19.2 cm. Nodular hepatic contour. Increased hepatic parenchymal heterogeneity and echogenicity are compatible with given history of cirrhosis as well as possible hepatic steatosis and severely limits visualization. Limited visualization due to bowel gas and body habitus.
== END 2023-04-17 08:30 | disposition home or self-care (01) ==
LOC: HO.US 08:29
PROVIDERS: PCP Family Medicine; Visit Provider Physician Assistant
DX: K74.60 Unspecified cirrhosis of liver (principal)
CPT/HCPCS: 76705

== ENCOUNTER 2023-04-22 09:37 | Outpatient (AMB) | payer MEDICAID, SELFPAY ==
[2023-04-22 10:02] VITALS: BP 118/77; PULSE 77; O2SAT 97; BMI 40.7
--- NOTE | 2023-04-22 10:02 | A.OFFVIS_ITS ---
Intake Vital Signs 04/22/23 10:02 Height 5 ft 4 in Weight 236 lb 15.951 oz BMI 40.7 BP 118/77 Blood Pressure Location Rt brachial Position Sitting Pulse 77 Pulse Source Doppler Pulse Oximetry (%) 97 Oxygen Delivery Method Room Air Intake Visit Reasons: Asthma Director Motion Picture Required: Yes Director Motion Picture Name: Jaida Noel Allergies No Known Allergies [No Known Allergies*] Allergy (Verified 03/20/23 12:55) HPI Asthma HPI Details 57-year-old lady, nonsmoker, with underl patrick DINA on CPAP managed by her primary care provider, followed for restrictive ventilatory defect and asthma.? After the last office visit patient was supposed to get BrezTri, however her insurance cover it and she only got Spiriva. Thus, her symptoms are not well controlled and she complains of some wheezing with walking. [facility] Medical History Depression Diabetes Coarse tremors Bleeding hemorrhoids Hyperlipidemia Dental crowns present Bilateral pneumonia Respiratory failure Hypothyroidism Paranoia (psychosis) Stress incontinence Insomnia Anxiety Depression Obstructive sleep apnea on CPAP Scoliosis of thoracolumbar spine Morbid obesity Chronic pain syndrome Sacroiliitis Inappropriate sinus tachycardia GERD (gastroesophageal reflux disease) 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 due to insulin group home (current) use of insulin Gastroparesis 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, uncontrolled Anemia Hemorrhoids Migraine Asthma Patellofemoral arthritis Patella-femoral syndrome Lumbar spondylosis Fibromyalgia Tubular adenoma Family history of colon cancer Vitamin D deficiency Dyslipidemia Genu valgum Low back pain Palpitations Chest pain HTN (hypertension) Surgical History Status post hemorrhoidectomy History of hemorrhoidectomy (~09/09/22) History of surgery Hx of section H/O esophagogastroduodenoscopy History of colonoscopy History of arthroscopy of right knee History of bilateral carpal tunnel release History of bladder surgery History of tubal ligation Hx of tonsillectomy Family History Father Stomach cancer Mother Heart disease HTN (hypertension) Diabetes Son No problems noted. 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) Alcohol intake: never Patient Tobacco Use Status: Never used Tobacco Second Hand Smoke Exposure: No service: No Current occupational status: disabled Current occupation: lt handed Sexual orientation: Straight/Heterosexual Gender identity: Female Female Reproductive History Menstrual Age of Menarche: 17 Review of Systems Const Denies daytime sleepiness, Denies excessive sweating, Denies fatigue, Denies fever(s), Denies lethargy, Denies malaise, Denies night sweats, Denies snoring and Denies weight loss Eyes Denies blurry vision and Denies itchy eyes ENT Denies nasal congestion, Denies post nasal drip, Denies sinus pain, Denies sinus pressure and Denies other ( Thrush) Card Denies chest pain, Denies pedal edema, Denies dyspnea, Reports dyspnea on exertion, Denies orthopnea and Denies paroxysmal nocturnal dyspnea Resp Denies cough, Denies hemoptysis, Denies excessive phlegm production, Denies dyspnea, Reports dyspnea on exertion, Denies snoring and Reports wheezing GI Denies abdominal pain and Denies heartburn Musc Denies myalgias, Denies arthralgias and Denies joint swelling Skin/Breast Denies rash Neuro Denies memory loss and Denies seizure-like activity Psych Denies abnormal sleep pattern, Denies anxiety and Denies memory loss Endo Denies excessive sweating, Denies fatigue and Denies heat intolerance Ray/Lymph Denies easy bruising Aller/Immun Denies itchy eyes, Denies seasonal rhinorrhea and Reports wheezing Physical Exam Vital Signs: Last Vital Signs Pulse 77 04/22/23 10:02 BP 118/77 04/22/23 10:02 Pulse Ox 97 04/22/23 10:02 Oxygen Delivery Method Room Air 04/22/23 10:02 BMI result Body Mass Index 40.7 Const General: no acute distress and alert Nutritional Appearance: obese Orientation/consciousness: Other orientation findings ( oriented) HEENT Head: Yes atraumatic Eyes General: appearance normal, both eyes and all related structures Sclerae: sclerae normal EOM: EOMs intact bilaterally Neck Neck: Yes supple Lymphatic: no lymphadenopathy noted Resp Effort & Inspection: normal respiratory effort and no use of accessory muscles Auscultation: clear to auscultation bilaterally Cardio Rate: regular rate Rhythm: regular rhythm Heart sounds: no gallops, no murmurs and no rubs Skin General skin exam: other ( warm) Extrem General: No clubbing, No cyanosis and No edema Assessment & Plan Assessment & Plan (1) Restrictive lung disease: Code(s): J98.4 - Other disorders of lung Plan: Secondary to body habitus and scoliosis. Patient encouraged to follow-up with weight management. (2) DINA on CPAP: Code(s): G47.33 - Obstructive sleep apnea (adult) (pediatric); Z99.89 - Dependence on other enabling machines and devices Plan: Controlled on CPAP therapy. Continue CPAP therapy. (3) Asthma: Code(s): J45.909 - Unspecified asthma, uncomplicated Plan: Suboptimal control as patient was not able to receive BrezTri and has only received Spiriva. Will add AirDuo. Coding Level of Care Code Est Pt Level 4 (09692) Diagnoses Restrictive lung disease J98.4 DINA on CPAP G47.33; Z99.89 Asthma J45.909
== END 2023-04-22 10:15 | disposition home or self-care (01) ==
PROVIDERS: PCP Family Medicine; Visit Provider Internal Medicine Pulmonary Disease
DX: J98.4 Other disorders of lung (principal); G47.33 Obstructive sleep apnea (adult) (pediatric); Z99.89 Dependence on other enabling machines and devices; J45.909 Unspecified asthma, uncomplicated
CPT/HCPCS: 99214

== ENCOUNTER → 2023-04-22 09:37 | Outpatient (BNVA) | payer MEDICAID, SELFPAY | PROVIDERS: PCP Family Medicine; Visit Provider Internal Medicine Pulmonary Disease | DX: J98.4 Other disorders of lung (principal); J45.909 Unspecified asthma, uncomplicated; G47.33 Obstructive sleep apnea (adult) (pediatric); Z99.89 Dependence on other enabling machines and devices | CPT/HCPCS: 99212 ==

== ENCOUNTER 2023-04-29 09:00 | Outpatient (RCR) | payer MEDICAID, SELFPAY | END 2023-07-03 07:48 | disposition home or self-care (01) | LOC: HO.PT 09:00 | PROVIDERS: PCP Family Medicine; Visit Provider Psychiatry & Neurology Neurology | DX: M54.50 Low back pain, unspecified (principal); R26.89 Other abnormalities of gait and mobility; G20.C Parkinsonism, unspecified; M26.89 Other dentofacial anomalies | CPT/HCPCS: 95992; 97110; 97112; 97162 ==

== ENCOUNTER 2023-04-29 10:04 | Outpatient (AMB) | payer MEDICAID, SELFPAY ==
--- NOTE | 2023-04-29 10:07 | A.OFFVIS_ITS ---
Intake Vital Signs 04/29/23 10:10 Height 5 ft 4 in Weight 238 lb 1.588 oz BMI 40.9 BP 146/72 H Blood Pressure Location Lt brachial Position Sitting Pulse 84 Intake Visit Reasons: US Results, Follow up Cirrhosis of Liver Intake Note: Patient is seen in office for ultrasound results, following cirrhosis of the liver. Pt c/o: denies any concerns and changes at the time of visit Optometry Teacher Required: Yes Optometry Teacher Language: Data Developer Name: Joleen HERMAN Information Interpreted: non-clinical & clinical Accompanied by: Family/Other Allergies No Known Allergies [No Known Allergies*] Allergy (Verified 04/29/23 10:15) HPI HPI Comments History of Present Illness Details An obese, 57-year-old female, cirrhosis study liver diabetic, history of colon polyps follows up after recent abdominal ultrasound She is accompanied by her son She is seen in presence of an interior paneler Not she has no GI complaints at all Appetite is good Reviewed ultrasound results as well as labs Reviewed previous colonoscopy 2017 Dr. Martínez-fragments tubular adenoma We had held off on scheduling colonoscopy at this time per her request She has no nausea, vomiting, hematemesis, hematochezia fever chills [facility] Medical History (Updated 04/29/23 @ 10:57 by Kasey Vanessa PA-C) Depression Diabetes Coarse tremors Bleeding hemorrhoids Hyperlipidemia Dental crowns present Bilateral pneumonia Respiratory failure Hypothyroidism Paranoia (psychosis) Stress incontinence Insomnia Anxiety Depression Obstructive sleep apnea on CPAP Scoliosis of thoracolumbar spine Morbid obesity Chronic pain syndrome Sacroiliitis Inappropriate sinus tachycardia GERD (gastroesophageal reflux disease) 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 Gastroparesis 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, uncontrolled Anemia Hemorrhoids Migraine Asthma Patellofemoral arthritis Patella-femoral syndrome Lumbar spondylosis Fibromyalgia Tubular adenoma Family history of colon cancer Vitamin D deficiency Dyslipidemia Genu valgum Low back pain Palpitations Chest pain HTN (hypertension) Surgical History Status post hemorrhoidectomy History of hemorrhoidectomy (~09/09/22) History of surgery Hx of section H/O esophagogastroduodenoscopy History of colonoscopy History of arthroscopy of right knee History of bilateral carpal tunnel release History of bladder surgery History of tubal ligation Hx of tonsillectomy Family History Father Stomach cancer Mother Heart disease HTN (hypertension) Diabetes Son No problems noted. Paternal Aunt Stomach cancer Sister Stomach cancer Sister Uterine cancer Social History Household Members: Family Household Members Other:: adult son Housing: Apartment Are you a primary residential child care counselor to a significant other at home: No Do you presently have visiting nurse or other home services: Yes (MANAGER AUTOMOTIVE daily) Alcohol intake: never Patient Tobacco Use Status: Never used Tobacco Second Hand Smoke Exposure: No service: No Current occupational status: disabled Current occupation: lt handed Sexual orientation: Straight/Heterosexual Gender identity: Female Female Reproductive History Menstrual Age of Menarche: 17 Review of Systems Const All systems reviewed & are unremarkable except as noted in HPI and below Card Denies chest pain and Denies dyspnea Resp Denies dyspnea Physical Exam Vital Signs: Last Vital Signs Pulse 84 04/29/23 10:10 BP 146/72 H 04/29/23 10:10 BMI result Body Mass Index 40.9 Const General: comfortable and no acute distress Nutritional Appearance: obese Orientation/consciousness: patient oriented x3 Limitations: language barrier Eyes Sclerae: sclerae normal Resp Effort & Inspection: normal respiratory effort and able to speak in complete sentences Skin General skin exam: no rashes or lesions noted Neuro General: patient oriented x3 Extrem General: Yes full ROM Psych Speech and movement: Clear speech present Affect: Labile affect present Attitude: cooperative Thought process: Normal thought process present Thought content: Normal thought content present Results Reviewed Results Reviewed: US/US abdomen limited IMPRESSION: Hepatomegaly, 19.2 cm. Nodular hepatic contour. Increased hepatic parenchymal heterogeneity and echogenicity are compatible with given history of cirrhosis as well as possible hepatic steatosis and severely limits visualization. Limited visualization due to bowel gas and body habitus. EGD/ colon- Martínez Assessment & Plan Assessment & Plan (1) History of colon polyps: Comment: polyp surveillance however patient-somewhat overwhelmed at this time we will see her back in follow-up to further discuss. Code(s): Z86.010 - Personal history of colonic polyps Plan: Schedule polyp surveillance colonoscopy at next visit-she is agreeable (2) Cirrhosis of liver: Comment: reviewed CT 08/2022- likely NAFLD- will r/o other causes-reviewed ultrasound-no lesions Continue plan of care follow-up q.6 months Code(s): K74.60 - Unspecified cirrhosis of liver (3) Morbid obesity with BMI of 45.0-49.9, adult: Code(s): E66.01 - Morbid (severe) obesity due to excess calories; Z68.42 - Body mass index [BMI] 45.0-49.9, adult Plan: Avoid weight gain (4) NAFLD (nonalcoholic fatty liver disease): Code(s): K76.0 - Fatty (change of) liver, not elsewhere classified Plan: Good cholesterol, glucose control avoid weight gain abstain from Plan Reviewed plan of care for cirrhosis Importance of follow up colonoscopy with history of colon polyps Orders: Orders Complete Blood Count Auto Diff Today K52.9 - Noninfective gastroenteritis and colitis, unspecified Comprehensive Met. Panel Today K58.9 - Irritable bowel syndrome without diarrhea Hemoglobin A1c Today E11.65 - Type 2 diabetes mellitus with hyperglycemia, K74.60 - Unspecified cirrhosis of liver Alpha Fetoprotein Today E11.65 - Type 2 diabetes mellitus with hyperglycemia, K74.60 - Unspecified cirrhosis of liver, K76.0 - Fatty (change of) liver, not elsewhere classified, Z86.010 - Personal history of colonic polyps Patient Instructions: Pleasant obese 57-year-old female NAFLD, cirrhosis, history of colon polyps Reviewed plan of care in detail oz of follow through every 6 months with labs, avoid weight gain, keep good cholesterol and glucose control. Continue to abstain from alcohol Encouraged to call with questions or concerns Will see back in May further discuss polyp surveillance colonoscopy as well. Encouraged to call with any questions or concerns. Coding Level of Care Code Est Pt Level 3 (46335) Diagnoses History of colon polyps Z86.010 Cirrhosis of liver K74.60 Morbid obesity with BMI of 45.0-49.9, adult E66.01; Z68.42 NAFLD (nonalcoholic fatty liver disease) K76.0 Time Spent (min) 30
[2023-04-29 10:10] VITALS: BP 146/72; PULSE 84; BMI 40.9
--- NOTE | 2023-07-29 10:45 | MHC.OFFVIS ---
Vital Signs 04/29/23 10:10 07/29/23 10:46 Height 5 ft 4 in Weight 238 lb 1.588 oz BMI 40.9 40.9 BP 146/72 H Blood Pressure Location Lt brachial Position Sitting Pulse 84 Intake Visit Reasons: US Results, Follow up Cirrhosis of Liver Allergies No Known Allergies [No Known Allergies*] Allergy (Verified 07/29/23 09:53) HPI Comments Details: A 58 y/o F NAFLD/ cirrhosis-history of adenomatous colon polyps 2018 here with adult daughter- Here to review labs-also reviewed ultrasound from April once again Reviewed colonoscopy from 2018-due for polyp surveillance, however has want to hold off She says that she is able to manage diabetes with her diet however she has arthritis receive-Cortisone both knees and LB She has no other complaints Bowels are normal Appetite is good She has no nausea, vomiting, abdominal pain, hematemesis, hematochezia fever or chills PFSH Medical History Coarse tremors Bleeding hemorrhoids Hyperlipidemia Dental crowns present Bilateral pneumonia Respiratory failure Hypothyroidism Paranoia (psychosis) Stress incontinence Insomnia Anxiety Obstructive sleep apnea on CPAP Scoliosis of thoracolumbar spine Morbid obesity Chronic pain syndrome Sacroiliitis Inappropriate sinus tachycardia GERD (gastroesophageal reflux disease) 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 Gastroparesis 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, uncontrolled Anemia Hemorrhoids Migraine Asthma Patellofemoral arthritis Patella-femoral syndrome Lumbar spondylosis Fibromyalgia Tubular adenoma Family history of colon cancer Vitamin D deficiency Dyslipidemia Genu valgum Low back pain Palpitations Chest pain HTN (hypertension) Surgical History Status post hemorrhoidectomy History of hemorrhoidectomy (~09/09/22) History of surgery Hx of section H/O esophagogastroduodenoscopy History of colonoscopy History of arthroscopy of right knee History of bilateral carpal tunnel release History of bladder surgery History of tubal ligation Hx of tonsillectomy Family History Father Stomach cancer Mother Heart disease HTN (hypertension) Diabetes Son No problems noted. Paternal Aunt Stomach cancer Sister Stomach cancer Sister Uterine cancer Social History Household Members: Family Household Members Other:: adult son Housing: Apartment Are you a primary home health care coordinator to a significant other at home: No Do you presently have visiting nurse or other home services: Yes (BEVERAGE HOST daily) Alcohol intake: current Alcohol intake frequency: does not drink Patient Tobacco Use Status: Never used Tobacco Second Hand Smoke Exposure: No service: No Current occupational status: disabled Current occupation: lt handed Sexual orientation: Straight/Heterosexual Gender identity: Female Female Reproductive History Menstrual Age of Menarche: 17 Review of Systems Const All systems reviewed & are unremarkable except as noted in HPI and below Physical Exam Vital Signs: Last Vital Signs Pulse 84 04/29/23 10:10 BP 146/72 H 04/29/23 10:10 BMI result Body Mass Index 40.9 Const Other: Nonverbal, alert well kempt General: cooperative, comfortable and no acute distress Orientation/consciousness: patient oriented x3 Limitations: language barrier Resp Effort & Inspection: normal respiratory effort and able to speak in complete sentences Auscultation: clear to auscultation bilaterally and no wheezes Cardio Rate: regular rate Rhythm: regular rhythm Heart sounds: S1 normal heart sound present and S2 normal heart sound present GI Inspection: Yes obesity Palpation (GI): Soft to palpation and nontender Auscultation: normal bowel sounds Skin General skin exam: no rashes or lesions noted Neuro General: patient oriented x3 Extrem General: Yes full ROM Psych Appearance: well kempt Attitude: cooperative Results Reviewed Results Reviewed: MPRESSION: Hepatomegaly, 19.2 cm. Nodular hepatic contour. Increased hepatic parenchymal heterogeneity and echogenicity are compatible with given history of cirrhosis as well as possible hepatic steatosis and severely limits visualization. Limited visualization due to bowel gas and body habitus. Normal enzymes- 07/2023 Assessment & Plan Assessment & Plan (1) History of colon polyps: Comment: Overdue for polyp surveillance -2018 recommend 5 Code(s): Z86.010 - Personal history of colonic polyps Category: Medical Plan: Will discuss at follow-up (2) Cirrhosis of liver: Comment: reviewed CT 08/2022-reviewed ultrasound to 2023 likely NAFLD- will r/o other causes-reviewed ultrasound-no lesions Continue plan of care follow-up q.6 months Code(s): K74.60 - Unspecified cirrhosis of liver Category: Medical (3) Morbid obesity with BMI of 45.0-49.9, adult: Comment: Hemoglobin A1c 8.0 Code(s): E66.01 - Morbid (severe) obesity due to excess calories; Z68.42 - Body mass index [BMI] 45.0-49.9, adult Category: Medical Plan: U/S/ labs/ 6 mos (4) NAFLD (nonalcoholic fatty liver disease): Code(s): K76.0 - Fatty (change of) liver, not elsewhere classified Category: Medical Plan: Lifestyle dietary change Plan Q.6 month follow-up Imaging, ultrasound HCC protocol labs Orders: Orders Complete Blood Count Auto Diff 04/29/23 K52.9 - Noninfective gastroenteritis and colitis, unspecified Comprehensive Met. Panel 04/29/23 K58.9 - Irritable bowel syndrome without diarrhea Hemoglobin A1c 04/29/23 E11.65 - Type 2 diabetes mellitus with hyperglycemia, K74.60 - Unspecified cirrhosis of liver Alpha Fetoprotein 04/29/23 K74.60 - Unspecified cirrhosis of liver, Z86.010 - Personal history of colonic polyps, E11.65 - Type 2 diabetes mellitus with hyperglycemia, K76.0 - Fatty (change of) liver, not elsewhere classified Patient Instructions: Follow-up q.6 month Labs and ultrasound ordered to be placed Dietary lifestyle changes- Manage glucose, cholesterol and weight Continue to avoid alcohol Will schedule for polyp surveillance colonoscopy next visit per request Encouraged to call with questions or concerns Coding Level of Care Code Est Pt Level 3 (18310) Diagnoses History of colon polyps Z86.010 Cirrhosis of liver K74.60 Morbid obesity with BMI of 45.0-49.9, adult E66.01; Z68.42 NAFLD (nonalcoholic fatty liver disease) K76.0 Time Spent (min) 25 Comment Adult daughter interpreted
[2023-07-29 10:46] VITALS: BMI 40.9
== END 2023-04-29 11:11 | disposition home or self-care (01) ==
PROVIDERS: PCP Family Medicine; Visit Provider Physician Assistant
DX: Z86.010 Personal history of colon polyps (principal); K74.60 Unspecified cirrhosis of liver; E66.01 Morbid (severe) obesity due to excess calories; Z68.42 Body mass index [BMI] 45.0-49.9, adult; K76.0 Fatty (change of) liver, not elsewhere classified
CPT/HCPCS: 99213; 99499

== ENCOUNTER → 2023-04-29 10:04 | Outpatient (BNVA) | payer MEDICAID, SELFPAY | PROVIDERS: PCP Family Medicine; Visit Provider Physician Assistant | DX: K74.60 Unspecified cirrhosis of liver (principal); K76.0 Fatty (change of) liver, not elsewhere classified; E66.01 Morbid (severe) obesity due to excess calories; Z86.010 Personal history of colon polyps; Z68.41 Body mass index [BMI] 40.0-44.9, adult | CPT/HCPCS: 99212 ==

== ENCOUNTER 2023-05-06 04:34 | Emergency (ER) | payer MEDICAID, SELFPAY ==
[2023-05-06] VITALS (9 sets, daily range): BP systolic 133–149; BP diastolic 65–80; PULSE 90–102; RESP 18–23; TEMP 37–38.7; O2SAT 91–98; BMI 43.8
--- NOTE | 2023-05-06 | ECG_ITS ---
Test Reason : SOB Blood Pressure : / mmHG Vent. Rate : 093 BPM Atrial Rate : 093 BPM P-R Int : 130 ms QRS Dur : 094 ms QT Int : 360 ms P-R-T Axes : 055 019 038 degrees QTc Int : 447 ms Normal sinus rhythm Normal ECG When compared with ECG of 12-SEP-2022 12:23, No significant change was found Referred By: Generic ED Physician Electronically Signed By:Simba Redmond
--- NOTE | ~2023-05-06 | XR_ITS ---
EXAMINATION: XR CHEST CLINICAL INFORMATION: Shortness of breath COMPARISON: 09/12/2022 TECHNIQUE: Frontal view of the chest was obtained. FINDINGS: Lung volumes are symmetric. No focal consolidation is seen. Mild bibasilar atelectasis. No evidence of pneumothorax, significant pleural effusion, or overt pulmonary edema. Cardiac silhouette remains mildly enlarged. No acute osseous findings are seen. XR/XR chest 1V IMPRESSION: Bibasilar subsegmental atelectasis without additional acute findings.
--- NOTE | 2023-05-06 04:58 | PC.NURSE ---
pt biba from home, a&ox4, respirations even and unlabored, reporting increasing shortness of breath since 8pm without relief with inhaler. pt reports sick family members at home. pt reports episodes of nausea but denies chest pain, vomiting and diarrhea. pt reporting cough with green phlegm. pt throat noted to be red with white patches. 20G placed in right AC, labs obtained, swabs sent to lab.
[2023-05-06 05:02] LABS: MANUAL DIFF FLAG NO
[2023-05-06 05:05] LABS: Basophils Percent Auto 0.3 % (0-2); Eosinophils Absolute Auto 0.1 X10*3/uL (0.0-0.4); Eosinophils Percent Auto 1.1 % (0-4); Hematocrit 38.8 % (37.0-47.0); Hemoglobin 12.1 g/dl (12.0-16.0); Imm Gran Abs Auto 0.03 X10*3/uL (0.00-0.03); Imm Gran Pct Auto 0.3 % (0.0-0.4); Lymphocytes Percent Auto 22.2 % (20-40); Mean Corpuscular HGB Conc 31.2 g/dl (31.0-35.0); Mean Corpuscular Hemoglobin 25.9 pg (27.0-33.0); Mean Corpuscular Volume 83.1 fL (80.0-98.0); Mean Platelet Volume 10.7 fL (9.4-12.3); Monocytes Absolute Auto 0.7 X10*3/uL (0.1-1.2); Monocytes Percent Auto 7.5 % (2-11); Neutrophils Absolute Auto 6.3 x10*3/uL (2.0-8.3); Neutrophils Percent Auto 68.6 % (45-73); Platelet Count 264 X10*3/uL (160-400); Red Blood Count 4.67 X10*6/uL (4.20-5.50); Red Cell Distribution Width 15.8 % (11.0-16.0); White Blood Count 9.2 X10*3/uL (4.8-10.8)
[2023-05-06 05:14] LABS: IDNOW Serial# 08D9AD1C; Strep A Nucleic Acid Negative (Negative)
[2023-05-06 05:23] LABS: Alanine Aminotransferase 14 U/L (0-31); Alkaline Phosphatase 149 U/L (39-117); Anion Gap 14 (12-20); Aspartate Amino Transferase 23 U/L (5-31); Bilirubin Total 0.6 mg/dL (0.0-1.0); Blood Urea Nitrogen 7 mg/dL (9-16); Calcium 9.3 mg/dL (8.4-10.2); Carbon Dioxide 25 mmol/L (22-29); Chloride 103 mmol/L (96-108); Creatinine Clr Calc Pharmacy 120.3; Estimated Glomerular Filt Rate > 60; Glucose Random 221 mg/dL (60-115); Potassium 3.4 mmol/L (3.3-5.1); Sodium 139 mmol/L (135-145); Total Protein 7.9 g/dL (6.5-8.0)
--- NOTE | 2023-05-06 05:23 | ED_ITS ---
HPI - SOB/Dyspnea General Chief Complaint: Dyspnea Stated Complaint: sob Time Seen by Provider: 05/06/23 05:11 Source: patient Mode of arrival: EMS Limitations: no limitations History of Present Illness HPI Narrative: Patient with history of diabetes DINA on CPAP hypothyroidism depression anxiety hypertension, asthma comes here for increased shortness of breath and cough with mucopurulent phlegm since 20:00 last night patient used inhaler without much relief other family member also sick with same , no fever at home patient is saturating 93% on room air on arrival Related Data Home Medications Medication Instructions Recorded Confirmed clonidine HCl 0.1 mg tablet 0.1 mg PO BEDTIME PRN Anxiety 11/30/19 02/02/23 ferrous sulfate 325 mg (65 mg 325 mg PO Q OTHER DAY 11/30/19 02/02/23 iron) tablet rosuvastatin 20 mg tablet (Crestor) 20 mg PO BEDTIME 11/30/19 02/02/23 thiamine HCl (vitamin B1) 100 mg 100 mg PO DAILY 11/30/19 02/02/23 tablet aspirin 81 mg tablet,delayed 81 mg PO DAILY 01/01/21 02/02/23 release cyanocobalamin (vitamin B-12) 1,000 mcg IM [id number] 01/01/21 02/02/23 1,000 mcg/mL injection solution clonazepam 1 mg tablet 1 mg PO TID PRN Anxiety 05/07/21 02/02/23 omeprazole 20 mg capsule,delayed 20 mg PO DAILY@0630 05/07/21 02/02/23 release valsartan 160 mg tablet 160 mg PO DAILY 05/07/21 02/02/23 cholecalciferol (vitamin D3) 50 50 mcg PO DAILY 07/12/21 02/02/23 mcg (2,000 unit) capsule docusate sodium 100 mg capsule 100 mg PO BID 09/26/21 02/02/23 levothyroxine 125 mcg tablet 1 tab PO DAILY@0600 10/23/21 02/02/23 nortriptyline 50 mg capsule 1 cap PO BEDTIME 10/23/21 02/02/23 albuterol sulfate 2.5 mg/3 mL 2.5 mg inhalation Q4H PRN Wheezing 12/04/21 02/02/23 (0.083 %) solution for nebulization aripiprazole 2 mg tablet 2 mg PO DAILY 09/13/22 02/02/23 glucagon 3 mg/actuation nasal 3 mg intranasal DAILY PRN 09/13/22 02/02/23 spray (Baqsimi) 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 oxybutynin chloride 10 mg 10 mg PO DAILY 09/13/22 02/02/23 tablet,extended release 24 hr Previous Rx's Medication Instructions Recorded TRUEplus Lancets 33 gauge (lancets) #120 ea 12/13/21 blood sugar diagnostic (FreeStyle #150 ea 04/17/22 Lite Strips) metformin 500 mg tablet 1,000 mg (2 x 500 mg) PO BID 90 05/20/22 days #360 tabs flash glucose scanning reader #1 ea 06/05/22 (FreeStyle Ortiz 2 [place]) blood-glucose meter (FreeStyle #1 ea 07/17/22 Lite Meter kit) ibuprofen 600 mg tablet 600 mg PO Q6H PRN pain #30 tabs 09/09/22 psyllium seed (sugar) oral powder 1 tbsp PO BID #1,254 grams 10/13/22 (Metamucil (sugar) oral powder) flash glucose sensor (FreeStyle #2 kits 12/09/22 Ortiz 2 Sensor kit) semaglutide 2 mg/dose (8 mg/3 mL) 2 mg (0.75 mL) subcut QWEEK #3 mL 01/12/23 subcutaneous pen injector (Ozempic) tiotropium bromide 2.5 2 puff inhalation DAILY 30 days #4 01/16/23 mcg/actuation mist for inhalation grams (Spiriva Respimat) insulin regular hum U-500 conc 500 40 unit (0.08 mL) subcut DAILY #6 02/18/23 unit/mL(3 mL) subcut pen (Humulin mL R U-500 (Conc) Insulin Kwikpen) propranolol 80 mg tablet 80 mg PO BID 90 days #180 tabs 03/25/23 furosemide 20 mg tablet 20 mg PO QAM #30 tabs 03/26/23 gabapentin 400 mg capsule 400 mg PO TID #90 caps 03/26/23 insulin regular hum U-500 conc 500 30 unit (0.06 mL) subcut BEDTIME 03/26/23 unit/mL(3 mL) subcut pen (Humulin #6 mL R U-500 (Conc) Insulin Kwikpen) pen needle, diabetic 32 gauge x #100 ea 03/26/23 (Pentips) fluticasone 232 mcg-salmeterol 14 1 inh inhalation BID 30 days #1 ea 04/22/23 mcg/actuation breath activated powdr (AirDuo RespiClick) Allergies Allergy/AdvReac Type Severity Reaction Status Date / Time No Known Allergies Allergy Verified 04/29/23 10:15 [No Known Allergies*] Review of Systems 2 Review of Systems: Yes all other systems are reviewed and are negative ON LICENSE OF [facility] Past Medical History Medical History Depression Diabetes Coarse tremors Bleeding hemorrhoids Hyperlipidemia Dental crowns present Bilateral pneumonia Respiratory failure Hypothyroidism Paranoia (psychosis) Stress incontinence Insomnia Anxiety Depression Obstructive sleep apnea on CPAP Scoliosis of thoracolumbar spine Morbid obesity Chronic pain syndrome Sacroiliitis Inappropriate sinus tachycardia GERD (gastroesophageal reflux disease) 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 due to insulin intermediate (current) use of insulin Gastroparesis 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, uncontrolled Anemia Hemorrhoids Migraine Asthma Patellofemoral arthritis Patella-femoral syndrome Lumbar spondylosis Fibromyalgia Tubular adenoma Family history of colon cancer Vitamin D deficiency Dyslipidemia Genu valgum Low back pain Palpitations Chest pain HTN (hypertension) Surgical History Status post hemorrhoidectomy History of hemorrhoidectomy (~09/09/22) History of surgery Hx of section H/O esophagogastroduodenoscopy History of colonoscopy History of arthroscopy of right knee History of bilateral carpal tunnel release History of bladder surgery History of tubal ligation Hx of tonsillectomy Family History Family History Father Stomach cancer Mother Heart disease HTN (hypertension) Diabetes Son No problems noted. Paternal Aunt Stomach cancer Sister Stomach cancer Sister Uterine cancer Social History Social History Household Members: Family Household Members Other:: adult son Housing: Apartment Are you a primary intensive care medicine specialist to a significant other at home: No Do you presently have visiting nurse or other home services: Yes (PRIOR AUTHORIZATION NURSE daily) Alcohol intake: current Alcohol intake frequency: does not drink Patient Tobacco Use Status: Never used Tobacco Smoked in Last 30 Days: No Second Hand Smoke Exposure: No Use of substances other than those prescribed or required for medical reasons: No Advance Directives: No Advance Directives Information Provided: No Patient : No service: No Current occupational status: disabled Current occupation: lt handed Sexual orientation: Straight/Heterosexual Gender identity: Female Physical Exam 2 Vital Signs: Vital Signs: Last Vital Signs Temp 99.1 F 05/06/23 06:00 Pulse 95 05/06/23 06:03 Resp 18 05/06/23 06:03 BP 133/65 05/06/23 06:00 Pulse Ox 93 05/06/23 06:00 O2 Del Method Room Air 05/06/23 06:00 BMI result Body Mass Index 43.8 Appearance: Alert. Oriented X3. No acute distress. Eyes: No pallor or icterus ENT: Pharynx normal. Oral Mucosa moist Neck: Normal inspection. Neck supple. CVS: Normal heart rate and rhythm. Pulses normal. Respiratory: No respiratory distress. Equal air entry bilateral, prolonged expiration with rhonchi Abdomen: Soft and nontender. Bowel sounds are present, no mass palpable, no CVA tenderness Skin: Skin warm and dry. Normal skin color. Normal skin turgor. Extremities: No lower extremity edema. No calf tenderness tremors+ Neuro: Oriented X 3. Medications Administered Generic Name Dose Route Start Last Admin Trade Name Freq PRN Reason Stop Dose Admin Sodium Chloride 1,000 mls @ 999 mls/hr 05/06/23 07:06 05/06/23 07:33 Ns IV 05/06/23 08:06 999 mls/hr .Q1H1M ONE Administration Discontinued Medications Generic Name Dose Route Start Last Admin Trade Name Freq PRN Reason Stop Dose Admin Acetaminophen 650 mg 05/06/23 07:01 05/06/23 07:33 Acetaminophen 325 Mg Tablet PO 05/06/23 07:02 650 mg ONCE ONE Administration Albuterol Sulfate 2.5 mg/ 0 mg 05/06/23 05:51 05/06/23 06:01 Albuterol/Ipratropium 3 ml INHALE 05/06/23 05:52 1 dose ONCE ONE Administration Ceftriaxone Sodium 1 gm/ 50 mls @ 100 mls/hr 05/06/23 07:01 05/06/23 07:32 Sodium Chloride IV 05/06/23 07:30 100 mls/hr ONCE ONE Administration Methylprednisolone Sodium Succinate 125 mg 05/06/23 07:07 05/06/23 07:32 Methylprednisolone Sod Succ 125 Mg/2 Ml Vial IVPUSH 05/06/23 07:08 125 mg ONCE ONE Administration Medical Decision Making Medical Decision Making [facility] Narrative: Patient with bronchitis with chronic lung disease noticed to have fever in the ER chest x-ray negative wbc's negative will treat with antibiotic Rocephin for bronchitis blood cultures lactic acid pending patient is signed out to Dr. Hanane HERNANDEZ Differential Diagnosis Differential Diagnoses: The differential diagnosis associated with the presentation includes Bronchitis/pneumonia/viral/COVID/flu Lab Data [facility] Lab Attestation statement: I reviewed the patient's lab results. 05/06/23 04:51 05/06/23 04:51 Labs: Lab Results 05/06/23 05/06/23 05/06/23 Range/Units 04:46 04:51 07:19 WBC 9.2 (4.8-10.8) X10*3/uL RBC 4.67 (4.20-5.50) X10*6/uL Hgb 12.1 (12.0-16.0) g/dl Hct 38.8 (37.0-47.0) % MCV 83.1 (80.0-98.0) fL MCH 25.9 L (27.0-33.0) pg MCHC 31.2 (31.0-35.0) g/dl RDW 15.8 (11.0-16.0) % Plt Count 264 (160-400) X10*3/uL MPV 10.7 (9.4-12.3) fL Immature Gran % (Auto) 0.3 (0.0-0.4) % Neut % (Auto) 68.6 (45-73) % Lymph % (Auto) 22.2 (20-40) % [place] % (Auto) 7.5 (2-11) % Eos % (Auto) 1.1 (0-4) % Baso % (Auto) 0.3 (0-2) % Lymph # (Auto) 2.0 (1.2-4.9) X10*3/uL [place] # (Auto) 0.7 (0.1-1.2) X10*3/uL Eos # (Auto) 0.1 (0.0-0.4) X10*3/uL Baso # (Auto) 0.0 (0.0-0.2) X10*3/uL Abs Immat Gran (auto) 0.03 (0.00-0.03) X10*3/uL Absolute Neuts (auto) 6.3 (2.0-8.3) x10*3/uL Absolute Nucleated RBC 0.000 (0.0-0.012) X10*3/uL Nucleated RBC % (auto) 0.0 (0.0-0.2) /100WBC PT 15.1 H (11.1-13.3) SEC INR 1.2 H (0.9-1.1) Sodium 139 (135-145) mmol/L Potassium 3.4 (3.3-5.1) mmol/L Chloride 103 (96-108) mmol/L Carbon Dioxide 25 (22-29) mmol/L Anion Gap 14 (12-20) BUN 7 L (9-16) mg/dL Creatinine 0.66 (0.5-1.4) mg/dL Estim Creat Clear Calc 120.3 Estimated GFR > 60 Random Glucose 221 H (60-115) mg/dL Calcium 9.3 (8.4-10.2) mg/dL Total Bilirubin 0.6 (0.0-1.0) mg/dL AST 23 (5-31) U/L ALT 14 (0-31) U/L Alkaline Phosphatase 149 H (39-117) U/L Total Protein 7.9 (6.5-8.0) g/dL Albumin 4.0 (3.5-5.0) g/dL Influenza Type A (PCR) NEGATIVE (Negative) Influenza Type B (PCR) NEGATIVE (Negative) RSV RNA Qual (PCR) NEGATIVE (Negative) SARS-CoV-2 RNA (RT-PCR) NEGATIVE (Negative) S. pyogenes GrpA DRE Negative (Negative) Independent Interpretation I performed an independent interpretation of an: EKG and Plain X-Ray Interpretation: Normal sinus rhythm heart rate 93 beats per minute normal interval normal axis no acute ST T wave changes no acute ischemia Radiology Impression Discussion of test interpretation with radiology: I have reviewed the radiologist's reading. Discharge Plan Discharge Clinical Impression: Acute bronchitis Patient Disposition: Still a Patient Prescriptions: No Action (DME) lancets [TRUEplus Lancets] [facility] See Rx Instructions .ROUTE .MEDSUPPLY Qty: 120 11RF Rx Instructions: 4 times a day (DME) FreeStyle Lite Strips Strip See Rx Instructions .MEDSUPPLY Qty: 150 5RF Rx Instructions: 5 times a day metformin 500 mg tablet 1,000 mg PO BID 90 Days Qty: 360 1RF Hold Instructions: Resume on 09/15/22. (DME) blood-glucose meter [FreeStyle Lite Meter] Kit See Rx Instructions .Route Qty: 1 0RF Rx Instructions: As directed (DME) FreeStyle Ortiz 2 Sensor Kit See Rx Instructions .ROUTE .COMPLEX Qty: 2 6RF Dose Instruction: USE DIRECTED EVERY 14 DAYS Rx Instructions: USE DIRECTED EVERY 14 DAYS Spiriva Respimat 2.5 mcg/actuation mist 2 puff inhalation DAILY 30 Days Qty: 4 6RF Humulin R U-500 (Conc) Kwikpen 500 unit/mL (3 mL) insulin pen 40 unit subcut DAILY Qty: 6 0RF propranolol 80 mg tablet 80 mg PO BID 90 Days Qty: 180 0RF Rx Instructions: Keep 1 year follow up appt on: 04/13/23 @ 1:15 PM @ [facility], Irma Tomlinson, GAME FARM HELPER-C furosemide 20 mg tablet 20 mg PO QAM Qty: 30 3RF (DME) pen needle, diabetic [Pentips] 32 gauge x 5/32 needle See Rx Instructions .ROUTE .COMPLEX Qty: 100 11RF Dose Instruction: USE DIRECTED TWICE DAILY Rx Instructions: USE DIRECTED TWICE DAILY Humulin R U-500 (Conc) Kwikpen 500 unit/mL (3 mL) insulin pen 30 unit subcut BEDTIME Qty: 6 0RF gabapentin 400 mg capsule 400 mg PO TID Qty: 90 4RF levothyroxine 125 mcg tablet 1 tab PO DAILY@0600 nortriptyline 50 mg capsule 1 cap PO BEDTIME Rx Instructions: TAKE WITH 75 MG ibuprofen 600 mg tablet 600 mg PO Q6H PRN (Reason: pain) Qty: 30 0RF oxybutynin chloride 10 mg tablet extended release 24hr 10 mg PO DAILY aripiprazole 2 mg tablet 2 mg PO DAILY Baqsimi 3 mg/actuation spray,non-aerosol 3 mg intranasal DAILY PRN (Reason: 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) Rx Instructions: [place] once for severe hypoglycemia when patient cannot self-treat with glucose. Afterwards turn on side. May repeat after 15 minutes if patient does not respond. clonidine HCl 0.1 mg tablet 0.1 mg PO BEDTIME PRN (Reason: Anxiety) rosuvastatin [Crestor] 20 mg tablet 20 mg PO BEDTIME thiamine HCl (vitamin B1) 100 mg tablet 100 mg PO DAILY Rx Instructions: WITH MEAL ferrous sulfate 325 mg (65 mg iron) tablet 325 mg PO Q OTHER DAY clonazepam 1 mg tablet 1 mg PO TID PRN (Reason: Anxiety) valsartan 160 mg tablet 160 mg PO DAILY omeprazole 20 mg capsule,delayed release(DR/EC) 20 mg PO DAILY@0630 cyanocobalamin (vitamin B-12) 1,000 mcg/mL solution 1,000 mcg IM [id number] aspirin 81 mg tablet,delayed release (DR/EC) 81 mg PO DAILY docusate sodium 100 mg capsule 100 mg PO BID cholecalciferol (vitamin D3) 50 mcg (2,000 unit) capsule 50 mcg PO DAILY (DME) FreeStyle Ortiz 2 [place] Misc See Rx Instructions .Route Qty: 1 0RF Rx Instructions: As directed albuterol sulfate 2.5 mg /3 mL (0.083 %) solution for nebulization 2.5 mg inhalation Q4H PRN (Reason: Wheezing) Metamucil (sugar) Powder 1 tbsp PO BID Qty: 1254 0RF fluticasone propion-salmeterol [AirDuo RespiClick] 232-14 mcg/actuation aerosol powdr breath activated 1 inh inhalation BID 30 Days Qty: 1 6RF Ozempic 2 mg/dose (8 mg/3 mL) pen injector 2 mg subcut QWEEK Qty: 3 4RF
[2023-05-06 05:27] LABS: Influenza A PCR NEGATIVE (Negative); Influenza B PCR NEGATIVE (Negative); Resp Syncy Virus RNA Qual PCR NEGATIVE (Negative); SARS COV2 PCR INHOUSE NEGATIVE (Negative)
[2023-05-06] MEDS: Albuterol Sulfate 2.5 MG, Albuterol/Iprat 2.5/0.5MG 3 ML 3 ML INHALE (06:01)
--- NOTE | 2023-05-06 06:35 | PC.NURSE ---
provider aware of pt slight fever, no new orders at this time.
[2023-05-06 07:31] LABS: INTERNATIONAL NORM RATIO 1.2 (0.9-1.1); Prothrombin Time 15.1 SEC (11.1-13.3)
[2023-05-06] MEDS: methylPREDNISolone Sod Succ 125 MG/2 ML VIAL IVPUSH (07:32)
[2023-05-06] MEDS: cefTRIAXone sodium 1 GM in 0.9 % Sodium Chloride 50 ML IV (07:32)
[2023-05-06] MEDS: 0.9 % Sodium Chloride 1,000 ML 999 ML IV (07:33)
[2023-05-06] MEDS: Acetaminophen 325 MG TABLET 650 MG PO (07:33)
[2023-05-06 07:40] LABS: Lactic Acid 1.5 mmol/L (0.5-2.0)
[2023-05-06 07:48] LABS: B Type Natriuretic Peptide 18 pg/mL (<100)
[2023-05-06 07:56] LABS: Troponin-I High Sensitivity < 2.7 ng/L (<3.5-17.0)
--- NOTE | 2023-05-06 08:21 | PC.NURSE ---
Patient alert and oriented, respirations even and unlabored, lung sounds junky throughout, dry cough present, skin warm to touch, flushed in face but appropriate for ethnicity, patient reports chest tightness that started early this morning, NS on monitor, vss.
[2023-05-06] MEDS: Ibuprofen 800 MG TABLET PO (11:06)
[2023-05-06] MEDS: Azithromycin 500 MG TABLET PO (11:06)
== END 2023-05-06 12:10 | disposition home or self-care (01) ==
PROVIDERS: Emergency Provider Internal Medicine; PCP Family Medicine
DX: J20.9 Acute bronchitis, unspecified (principal); J45.909 Unspecified asthma, uncomplicated; E11.9 Type 2 diabetes mellitus without complications; I10 Essential (primary) hypertension; G47.33 Obstructive sleep apnea (adult) (pediatric); Z99.89 Dependence on other enabling machines and devices; Z11.52 Encounter for screening for COVID-19; Z20.828 Contact with and (suspected) exposure to other viral communicable diseases
CPT/HCPCS: 0241U; 36415; 71045; 80053; 83605; 83880; 84484; 85025; 85610; 87040; 87651; 93005; 94640; 96361; 96365; 99285; J0696; J2930

== ENCOUNTER → 2023-05-06 05:02 | Outpatient (BNV) | payer MEDICAID, SELFPAY | PROVIDERS: Emergency Provider Internal Medicine; PCP Family Medicine; Visit Provider Internal Medicine Cardiovascular Disease | DX: R06.02 Shortness of breath (principal) | CPT/HCPCS: 93010 ==

== ENCOUNTER 2023-06-02 09:30 | Outpatient (AMB) | payer MEDICAID, SELFPAY ==
--- NOTE | 2023-06-02 09:52 | A.OFFVIS_ITS ---
Intake Intake Visit Reasons: high sugars/CONFIRMED Interdisciplinary Professor Required: Yes Interdisciplinary Professor Language: Academic Associate Name: Ana [facility] Information Interpreted: non-clinical & clinical Accompanied by: Son Allergies No Known Allergies [No Known Allergies*] Allergy (Verified 04/29/23 10:15) HPI Comprehensive Diabetes Asmnt Most Recent Diabetes Results: Hemoglobin A1c 7.5 % 09/23/18 Microalb/Creat Ratio 14.4 ug/mg cr (<30) 01/12/23 Cholesterol 91 mg/dL (<200) 12/12/22 HDL Cholesterol 38 mg/dL (>40) L 12/12/22 Triglycerides 112 mg/dL (<150) 12/12/22 Creatinine 0.66 mg/dL (0.5-1.4) 05/06/23 Blood Urea Nitrogen 7 mg/dL (9-16) L 05/06/23 Sodium 139 mmol/L (135-145) 05/06/23 Potassium 3.4 mmol/L (3.3-5.1) 05/06/23 Chloride 103 mmol/L (96-108) 05/06/23 Carbon Dioxide 25 mmol/L (22-29) 05/06/23 Calcium 9.3 mg/dL (8.4-10.2) 05/06/23 AST 23 U/L (5-31) 05/06/23 ALT 14 U/L (0-31) 05/06/23 Total Protein 7.9 g/dL (6.5-8.0) 05/06/23 Albumin 4.0 g/dL (3.5-5.0) 05/06/23 [facility] Medical History Depression Diabetes Coarse tremors Bleeding hemorrhoids Hyperlipidemia Dental crowns present Bilateral pneumonia Respiratory failure Hypothyroidism Paranoia (psychosis) Stress incontinence Insomnia Anxiety Depression Obstructive sleep apnea on CPAP Scoliosis of thoracolumbar spine Morbid obesity Chronic pain syndrome Sacroiliitis Inappropriate sinus tachycardia GERD (gastroesophageal reflux disease) 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 due to insulin 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 Gastroparesis 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, uncontrolled Anemia Hemorrhoids Migraine Asthma Patellofemoral arthritis Patella-femoral syndrome Lumbar spondylosis Fibromyalgia Tubular adenoma Family history of colon cancer Vitamin D deficiency Dyslipidemia Genu valgum Low back pain Palpitations Chest pain HTN (hypertension) Surgical History Status post hemorrhoidectomy History of hemorrhoidectomy (~09/09/22) History of surgery Hx of section H/O esophagogastroduodenoscopy History of colonoscopy History of arthroscopy of right knee History of bilateral carpal tunnel release History of bladder surgery History of tubal ligation Hx of tonsillectomy Family History Father Stomach cancer Mother Heart disease HTN (hypertension) Diabetes Son No problems noted. Paternal Aunt Stomach cancer Sister Stomach cancer Sister Uterine cancer Social History Household Members: Family Household Members Other:: adult son Housing: Apartment Are you a primary career services manager to a significant other at home: No Do you presently have visiting nurse or other home services: Yes (COMMERCIAL CENSUS TAKER daily) Alcohol intake: current Alcohol intake frequency: does not drink Patient Tobacco Use Status: Never used Tobacco Second Hand Smoke Exposure: No service: No Current occupational status: disabled Current occupation: lt handed Sexual orientation: Straight/Heterosexual Gender identity: Female Female Reproductive History Menstrual Age of Menarche: 17 Assessment & Plan Assessment & Plan (1) 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, uncontrolled: Code(s): E11.65 - Type 2 diabetes mellitus with hyperglycemia Qualifiers: Glycemic state: with hypoglycemia Coma presence: without coma Qualified Code(s): E11.649 - Type 2 diabetes mellitus with hypoglycemia without coma Plan: Personal Continuous Glucose Monitor: Patients CGM information reviewed Reviewed patient's sensor data: 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: ? 0% Hyperglycemia:? 93% Time in Range:? 7% Average glucose for the last 2 weeks 294? mg/dL Patient has not started Mounjaro 2.5 mg. She does continue to take Ozempic 2 mg weekly Patient is taking Humulin U 500 60 units before breakfast 60 units before supper Instructed patient to increase Humulin U 500 to 65 units b.i.d. until she begins Mounjaro 2.5 mg Reviewed with patient how to use rule of 15s to treat hypoglycemia Handout for rule of 15s given in Polish Reviewed how to interpret trend arrows Reminded patient that to check finger sticks if symptoms do not match sensor reading. Discussed lag time between finger stick and sensor data.? Patient able to insert sensor independently at home without issue.? Patient Instructions: Aumente Humulin U 500 2 veces al d?a de 60 unidades a 65 unidades Cuando comience con Mounjaro 2,5 mg por semana, reduzca la dosis de Humulin U 500 a 60 unidades antes de cada comida. Seguimiento del educador en diabetes en 6 semanas Coding Level of Care Code Est Pt Level 1 (48261) Diagnoses Uncontrolled type 2 diabetes mellitus with hypoglycemia without coma E11.649 Glycemic state: with hypoglycemia Coma presence: without coma
== END 2023-06-02 10:02 | disposition home or self-care (01) ==
PROVIDERS: PCP Family Medicine; Visit Provider Registered Nurse Diabetes Educator
DX: E11.649 Type 2 diabetes mellitus with hypoglycemia without coma (principal)

== ENCOUNTER → 2023-06-02 09:30 | Outpatient (BNVA) | payer MEDICAID, SELFPAY | PROVIDERS: PCP Family Medicine; Visit Provider Registered Nurse Diabetes Educator | DX: E11.649 Type 2 diabetes mellitus with hypoglycemia without coma (principal); Z79.4 Long term (current) use of insulin | CPT/HCPCS: 99211 ==

== ENCOUNTER 2023-06-04 12:04 | Outpatient (AMB) | payer MEDICAID, SELFPAY ==
[2023-06-04 13:02] VITALS: BP 140/78; PULSE 102; BMI 41.7
--- NOTE | 2023-06-04 13:02 | A.OFFVIS_ITS ---
Intake Vital Signs 06/04/23 13:02 Height 5 ft 4 in Weight 243 lb 2.718 oz BMI 41.7 BP 140/78 H Blood Pressure Location Lt brachial Position Sitting Pulse 102 H Pulse Source Pulse Oximeter Intake Visit Reasons: f/u DM-confirmed Intake Note: Patient presents today to follow up on D2MT. Last Diabetic Eye exam: 05/2022 Last Podiatry Visit: Doesn't have one Random Glucose: 181 mg/dl HgA1c: 9.2% Ethanol Operations Manager Required: Yes Ethanol Operations Manager Name: [facility] medical staff Information Interpreted: non-clinical & clinical Accompanied by: Self / Same As Patient Allergies No Known Allergies [No Known Allergies*] Allergy (Verified 06/04/23 13:14) HPI HPI Comments History of Present Illness Details Patient is a 57-year-old female with DM type 2 diagnosed 2009 who presents for management of diabetes. Past medical history: 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, HLD, HTN, gastroparesis Micro and macrovascular complications: retinopathy, Diabetes medications: Humulin U 500 65 before breakfast and 65 units with dinner, metformin ER 500 mg 2 pills twice a day. . Mounjaro 2.5 mg Qwkly not started yet . Was told to hold off until next wk because going for median nerve block Incontinent and therefore not appropriate for SGLT-2 Blood glucose monitoring: Ortiz download shows she is using the sensor 75% of the time. Average glucose is 263 with G mi of 9.6% and variability 30.3%. 20% of glucoses are in range with 80% hyperglycemia and 0% hypoglycemia. Pattern shows persistent hyperglycemia throughout the day with post-prandial breakfast spikes. Symptoms reported: denies numbness, tingling, cramping in lower extremities 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:having infrequent hypoglycemia 3 X/ wk Exercise: walking when weather permit, less in winter with cold. 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 States she took Ozempic in past and did not have any GI issues Laboratory Tests 03/20/21 05/27/21 05/27/21 10:48 10:12 10:12 Creatinine 0.69 Estimated GFR > 60 Hemoglobin A1c % 7.1 Triglycerides 97 Cholesterol 102 LDL Cholesterol, C alc 46 HDL Cholesterol 37 Vitamin B12 25-OH Vitamin D To hans 42.3 TSH 2.40 Microalb/Creat Rat io 46.2 05/27/21 10:12 Creatinine Estimated GFR Hemoglobin A1c % Triglycerides Cholesterol LDL Cholesterol, C alc HDL Cholesterol Vitamin B12 413 25-OH Vitamin D To hans TSH Microalb/Creat Rat io PFSH Medical History Depression Diabetes Coarse tremors Bleeding hemorrhoids Hyperlipidemia Dental crowns present Bilateral pneumonia Respiratory failure Hypothyroidism Paranoia (psychosis) Stress incontinence Insomnia Anxiety Depression Obstructive sleep apnea on CPAP Scoliosis of thoracolumbar spine Morbid obesity Chronic pain syndrome Sacroiliitis Inappropriate sinus tachycardia GERD (gastroesophageal reflux disease) 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 due to insulin FDC (current) use of insulin Gastroparesis 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, uncontrolled Anemia Hemorrhoids Migraine Asthma Patellofemoral arthritis Patella-femoral syndrome Lumbar spondylosis Fibromyalgia Tubular adenoma Family history of colon cancer Vitamin D deficiency Dyslipidemia Genu valgum Low back pain Palpitations Chest pain HTN (hypertension) Surgical History Status post hemorrhoidectomy History of hemorrhoidectomy (~09/09/22) History of surgery Hx of section H/O esophagogastroduodenoscopy History of colonoscopy History of arthroscopy of right knee History of bilateral carpal tunnel release History of bladder surgery History of tubal ligation Hx of tonsillectomy Family History Father Stomach cancer Mother Heart disease HTN (hypertension) Diabetes Son No problems noted. Paternal Aunt Stomach cancer Sister Stomach cancer Sister Uterine cancer Social History Household Members: Family Household Members Other:: adult son Housing: Apartment Are you a primary progressive care nurse to a significant other at home: No Do you presently have visiting nurse or other home services: Yes (SUPERVISOR WHE[employer] daily) Alcohol intake: current Alcohol intake frequency: does not drink Patient Tobacco Use Status: Never used Tobacco Second Hand Smoke Exposure: No service: No Current occupational status: disabled Current occupation: lt handed Sexual orientation: Straight/Heterosexual Gender identity: Female Female Reproductive History Menstrual Age of Menarche: 17 Physical Exam Vital Signs: Last Vital Signs Pulse 102 H 06/04/23 13:02 BP 140/78 H 06/04/23 13:02 BMI result Body Mass Index 41.7 Absence of Cushingoid features. Absence of acromegalic features. Neck exam reveals nl size thyroid about 15 gms. No thyroid nodules palpable. No carotid bruits present. Lungs CTA. Heart S1 S2, Reg R/R. No M/R/ G. Skin exam reveals absence of vitiligo or acanthosis nigricans. Abdominal exam reveals Soft NT/ND with NA BS. No organomegaly present. Neck Other: . Extrem Other: Visual exam of foot performed. No ulcerations or open lesions. No onchomycosis, no callouses.Pulses 2 + distally Sensation intact to monofilament exam. Vibratory sensation sensed is decreased with 128 Hz tuning fork Results AMB Hemoglobin A1c AMB Hemoglobin A1c 9.2 % Last Edit by BATSHEVA Sloan on 06/04/23 13:28 Results Reviewed Results Reviewed: Laboratory Last Values Glucose (Clinic) 181 mg/dL (60-115) H 06/04/23 13:11 Assessment & Plan Assessment & Plan (1) 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, uncontrolled: Code(s): E11.65 - Type 2 diabetes mellitus with hyperglycemia Qualifiers: Glycemic state: with hypoglycemia Coma presence: without coma Qualified Code(s): E11.649 - Type 2 diabetes mellitus with hypoglycemia without coma Plan: is a 57-year-old female with history of type 2 diabetes being managed with U-500 insulin twice a day , metformin and Mounjaro with improving but fair glycemic control but episodes of hypoglycemia intermittently. She has known microvascular complications namely retinopathy. Plan is to continue the present regimen of increase U-500 which was started several days ago. Patient should start the Mounjaro after the nerve block for She is considering going for gastric bypass surgery. She also told to follow up with clinical nurse educator Coding Level of Care Code Est Pt Level 4 (15469) Diagnoses Uncontrolled type 2 diabetes mellitus with hypoglycemia without coma E11.649 Glycemic state: with hypoglycemia Coma presence: without coma
[2023-06-04 13:15] LABS: Glucose, Whole Blood 181 mg/dL (60-115)
== END 2023-06-04 13:21 | disposition home or self-care (01) ==
PROVIDERS: PCP Family Medicine; Visit Provider Internal Medicine Endocrinology, Diabetes & Metabolism
DX: Z13.9 Encounter for screening, unspecified (principal); E11.649 Type 2 diabetes mellitus with hypoglycemia without coma
CPT/HCPCS: 99214

== ENCOUNTER → 2023-06-04 12:04 | Outpatient (BNVA) | payer MEDICAID, SELFPAY | PROVIDERS: PCP Family Medicine; Visit Provider Internal Medicine Endocrinology, Diabetes & Metabolism | DX: E11.649 Type 2 diabetes mellitus with hypoglycemia without coma (principal); Z79.4 Long term (current) use of insulin | CPT/HCPCS: 82947; 83036; 99212 ==

== ENCOUNTER 2023-06-12 08:51 | Day surgery (SDC) | payer MEDICAID, SELFPAY ==
[2023-06-10 07:40] VITALS: BMI 43.3
--- NOTE | 2023-06-11 12:05 | P.CONAN_ITS ---
Documented by User: Mala De La Paz NP 06/11/23 12:08 HPI - Anesthesia Eval Consult details Narrative: 57yo F for Bilateral L3-L4-L5 Medial Branch Block Anesthesia Pre-Procedure Meds Is the patient on any of the following meds?: Any other SGL-1 drugs or drugs that delay gastric emptying (tirzepatide) PMFSH Active Problems Active Problems: All Active Problems NAFLD (nonalcoholic fatty liver disease) (Acute) History of colon polyps (Acute) Cirrhosis of liver (Acute) Osteoarthritis of knees, bilateral (Acute) Morbid obesity (Acute) COVID-19 (Acute) DINA on CPAP (Acute) Restrictive lung disease (Acute) Patellofemoral arthritis of right knee (Acute) Acute respiratory failure with hypoxia (Acute) Abnormal nuclear cardiac imaging test (Acute) Muscle spasm of back (Acute) Depression (Acute) Morbid obesity with BMI of 45.0-49.9, adult (Acute) Sacroiliac joint dysfunction (Acute) Lumbar facet arthropathy (Acute) Lumbosacral spondylosis with radiculopathy (Acute) Obesity due to excess calories (Acute) Gastroparesis (Acute) Spondylosis of lumbar region without myelopathy or radiculopathy (Acute) Fibromyalgia (Acute) Pelvic pain (Acute) Primary osteoarthritis of left knee (Acute ~12/07/19) Status post hemorrhoidectomy (Acute) Hemorrhoids (Acute) Coarse tremors (Acute) Bleeding hemorrhoids (Acute) Hyperlipidemia (Acute) Obstructive sleep apnea on CPAP (Acute) Asthma (Acute) Hypothyroidism (Acute) Paranoia (psychosis) (Acute) Stress incontinence (Acute) Insomnia (Acute) Anxiety (Acute) Dyslipidemia (Acute) HTN (hypertension) (Acute) Scoliosis of thoracolumbar spine (Acute) Morbid obesity (Acute) Chronic pain syndrome (Acute) Sacroiliitis (Acute) Spondylosis of lumbar region without myelopathy or radiculopathy (Acute) Inappropriate sinus tachycardia (Acute) GERD (gastroesophageal reflux disease) (Acute) Diabetic nephropathy associated with type 2 diabetes mellitus (Acute) 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 due to insulin (Acute) jail (current) use of insulin (Acute) Gastroparesis (Acute) 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, uncontrolled (Acute) Past Medical History Medical History Coarse tremors Bleeding hemorrhoids Hyperlipidemia Dental crowns present Bilateral pneumonia Respiratory failure Hypothyroidism Paranoia (psychosis) Stress incontinence Insomnia Anxiety Obstructive sleep apnea on CPAP Scoliosis of thoracolumbar spine Morbid obesity Chronic pain syndrome Sacroiliitis Inappropriate sinus tachycardia GERD (gastroesophageal reflux disease) 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 due to insulin jail (current) use of insulin Gastroparesis 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, uncontrolled Anemia Hemorrhoids Migraine Asthma Patellofemoral arthritis Patella-femoral syndrome Lumbar spondylosis Fibromyalgia Tubular adenoma Family history of colon cancer Vitamin D deficiency Dyslipidemia Genu valgum Low back pain Palpitations Chest pain HTN (hypertension) Family History Family History Father Stomach cancer Mother Heart disease HTN (hypertension) Diabetes Son No problems noted. Paternal Aunt Stomach cancer Sister Stomach cancer Sister Uterine cancer Family history of problems with anesthesia: No Surgical History Surgical History Status post hemorrhoidectomy History of hemorrhoidectomy (~09/09/22) History of surgery Hx of section H/O esophagogastroduodenoscopy History of colonoscopy History of arthroscopy of right knee History of bilateral carpal tunnel release History of bladder surgery History of tubal ligation Hx of tonsillectomy History of Problems with Anesthesia: No Social History Social History Household Members: Family Household Members Other:: adult son Housing: Apartment Are you a primary career guidance counselor to a significant other at home: No Do you presently have visiting nurse or other home services: Yes (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) Alcohol intake: current Alcohol intake frequency: does not drink Patient Tobacco Use Status: Never used Tobacco Second Hand Smoke Exposure: No Use of substances other than those prescribed or required for medical reasons: No Are you DNR?: No Advance Directives: No Advance Directives Information Provided: Yes service: No Current occupational status: disabled Current occupation: lt handed Sexual orientation: Straight/Heterosexual Gender identity: Female Meds Allergies Allergy/AdvReac Type Severity Reaction Status Date / Time No Known Allergies Allergy Verified 06/04/23 13:14 [No Known Allergies*] Home Medications ?Medication ?Instructions ?Recorded ?Confirmed ?Last Taken ?Type clonidine HCl 0.1 mg tablet 0.1 mg PO BEDTIME PRN Anxiety 11/30/19 06/12/23 06/12/23 History ferrous sulfate 325 mg (65 mg 325 mg PO Q OTHER DAY 11/30/19 06/12/23 09/12/22 History iron) tablet rosuvastatin 20 mg tablet (Crestor) 20 mg PO BEDTIME 11/30/19 06/12/23 09/12/22 History thiamine HCl (vitamin B1) 100 mg 100 mg PO DAILY 11/30/19 06/12/23 09/12/22 History tablet aspirin 81 mg tablet,delayed 81 mg PO DAILY 01/01/21 06/12/23 09/12/22 History release cyanocobalamin (vitamin B-12) 1,000 mcg IM [id number] 01/01/21 06/12/23 1 Month Ago History 1,000 mcg/mL injection solution ~08/14/22 clonazepam 1 mg tablet 1 mg PO TID PRN Anxiety 05/07/21 06/12/23 09/09/22 History omeprazole 20 mg capsule,delayed 20 mg PO DAILY@0630 05/07/21 06/12/23 09/12/22 History release valsartan 160 mg tablet 160 mg PO DAILY 05/07/21 06/12/23 06/12/23 History cholecalciferol (vitamin D3) 50 50 mcg PO DAILY 07/12/21 06/12/23 09/12/22 History mcg (2,000 unit) capsule docusate sodium 100 mg capsule 100 mg PO BID 09/26/21 06/12/23 09/12/22 History levothyroxine 125 mcg tablet 1 tab PO DAILY@0600 10/23/21 06/12/23 06/12/23 History nortriptyline 50 mg capsule 1 cap PO BEDTIME 10/23/21 06/12/23 09/12/22 History albuterol sulfate 2.5 mg/3 mL 2.5 mg inhalation Q4H PRN Wheezing 12/04/21 06/12/23 Unknown History (0.083 %) solution for nebulization aripiprazole 2 mg tablet 2 mg PO DAILY 09/13/22 06/12/23 09/12/22 History glucagon 3 mg/actuation nasal 3 mg intranasal DAILY PRN 09/13/22 02/02/23 Unknown History spray (Baqsimi) 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 oxybutynin chloride 10 mg 10 mg PO DAILY 09/13/22 06/12/23 09/12/22 History tablet,extended release 24 hr Exam Height,Weight and Vital Signs: Height 5 ft 4 in Weight 114.305 kg Assessment and Plan Assessment Anesthesia Assessment: Chart Reviewed Final Anesthetic Review Family History of Problems with Anesthesia: No History of Problems with Anesthesia: No Documented by User: Joie Jimenez MD 06/12/23 09:57 HPI - Anesthesia Eval Consult details Narrative: 57yo F for Bilateral L3-L4-L5 Medial Branch Block. Patient was on Ozempic. Last dose 1 month ago. Changed to Mounjaro but has not started yet. 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 Paternal Aunt Stomach cancer Sister Stomach cancer Sister Uterine cancer Family history of problems with anesthesia: No Surgical History Surgical History Status post hemorrhoidectomy History of hemorrhoidectomy (~09/09/22) History of surgery Hx of section H/O esophagogastroduodenoscopy History of colonoscopy History of arthroscopy of right knee History of bilateral carpal tunnel release History of bladder surgery History of tubal ligation Hx of tonsillectomy History of Problems with Anesthesia: No Social History Social History Household Members: Family Household Members Other:: adult son Housing: Apartment Are you a primary career guidance counselor to a significant other at home: No Do you presently have visiting nurse or other home services: Yes (EDUCATION 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) Alcohol intake: current Alcohol intake frequency: does not drink Patient Tobacco Use Status: Never used Tobacco Second Hand Smoke Exposure: No Use of substances other than those prescribed or required for medical reasons: No Are you DNR?: No Advance Directives: No Advance Directives Information Provided: Yes service: No Current occupational status: disabled Current occupation: lt handed Sexual orientation: Straight/Heterosexual Gender identity: Female Meds Allergies Allergy/AdvReac Type Severity Reaction Status Date / Time No Known Allergies Allergy Verified 06/04/23 13:14 [No Known Allergies*] Home Medications ?Medication ?Instructions ?Recorded ?Confirmed ?Last Taken ?Type clonidine HCl 0.1 mg tablet 0.1 mg PO BEDTIME PRN Anxiety 11/30/19 06/12/23 06/12/23 History ferrous sulfate 325 mg (65 mg 325 mg PO Q OTHER DAY 11/30/19 06/12/23 09/12/22 History iron) tablet rosuvastatin 20 mg tablet (Crestor) 20 mg PO BEDTIME 11/30/19 06/12/23 09/12/22 History thiamine HCl (vitamin B1) 100 mg 100 mg PO DAILY 11/30/19 06/12/23 09/12/22 History tablet aspirin 81 mg tablet,delayed 81 mg PO DAILY 01/01/21 06/12/23 09/12/22 History release cyanocobalamin (vitamin B-12) 1,000 mcg IM [id number] 01/01/21 06/12/23 1 Month Ago History 1,000 mcg/mL injection solution ~08/14/22 clonazepam 1 mg tablet 1 mg PO TID PRN Anxiety 05/07/21 06/12/23 09/09/22 History omeprazole 20 mg capsule,delayed 20 mg PO DAILY@0630 05/07/21 06/12/23 09/12/22 History release valsartan 160 mg tablet 160 mg PO DAILY 05/07/21 06/12/23 06/12/23 History cholecalciferol (vitamin D3) 50 50 mcg PO DAILY 07/12/21 06/12/23 09/12/22 History mcg (2,000 unit) capsule docusate sodium 100 mg capsule 100 mg PO BID 09/26/21 06/12/23 09/12/22 History levothyroxine 125 mcg tablet 1 tab PO DAILY@0600 10/23/21 06/12/23 06/12/23 History nortriptyline 50 mg capsule 1 cap PO BEDTIME 10/23/21 06/12/23 09/12/22 History albuterol sulfate 2.5 mg/3 mL 2.5 mg inhalation Q4H PRN Wheezing 12/04/21 06/12/23 Unknown History (0.083 %) solution for nebulization aripiprazole 2 mg tablet 2 mg PO DAILY 09/13/22 06/12/23 09/12/22 History glucagon 3 mg/actuation nasal 3 mg intranasal DAILY PRN 09/13/22 02/02/23 Unknown History spray (Baqsimi) 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 oxybutynin chloride 10 mg 10 mg PO DAILY 09/13/22 06/12/23 09/12/22 History tablet,extended release 24 hr Exam Height,Weight and Vital Signs: Height 5 ft 4 in Weight 114.305 kg Vital Signs Temp Pulse Resp BP Pulse Ox O2 Del Method 06/12/23 09:14 97.9 F 94 18 124/80 95 Room Air Pertinent Lab Results Pertinent Lab Results: Lab Results 06/12/23 Range/Units 09:24 POC Glucose 115 (60-115) mg/dL Airway Mallampati Class: III TM Dist: >3cm Neck ROM: Full Loose/Missing/Broken Teeth: Yes (Missing molars. Denies broken or loose teeth) Heart: RRR Lungs: CTAB Assessment and Plan Assessment Anesthesia Assessment: Anesthesia Plan Discussed and Chart Reviewed Final Anesthetic Review Family History of Problems with Anesthesia: No History of Problems with Anesthesia: No NPO: Yes ASA Class: III Final Preanesthetic Review: No Changes in Pt Med Stat, Meds/Allgs Chart Reviewed, Consent Obtained/Reviewed and Anes Risks/Benef Reviewed Patient Risk: Intermediate Procedure Risk: Low Assessment/Block/Sedation in SS: Assess/Block/Sedation-SS Anesthetic Plan Anesthetic Plan: MAC: Disposition: Standard PACU
--- NOTE | ~2023-06-12 | FL_ITS ---
EXAMINATION: XR FLUOROSCOPY WITH IMAGES CLINICAL INFORMATION: Bilateral L3-L4-L5 medial branch block. COMPARISON: Fluoroscopy dated dated 07/18/2022; portions of the MRI lumbar spine dated 06/03/2021. TECHNIQUE: Fluoroscopy Supervised By: Dr. Juan Carlos Taylor. Fluoroscopy Time: 51.8 seconds. Cumulative Dose: 46.643 mGy. DAP: 16.489 Gycm2. Images: 4. FINDINGS: The submitted images show an injection needles and injected contrast in the vicinity of the bilateral L3-L4 through L5-S1 neural foramina. FL/FL guidance in OR IMPRESSION: Intraoperative fluoroscopic guidance is provided during lumbar pain management procedure. Please see the patient's Operative Report for full procedural details.
[2023-06-12 09:06] VITALS: BMI 43.3
[2023-06-12 09:14] VITALS: BP 124/80; PULSE 94; RESP 18; TEMP 36.6; O2SAT 95
--- NOTE | 2023-06-12 09:19 | P.HPSUR_ITS ---
Pre-Procedural Eval Section A - 24 Hr Update-Section A only Date of Service: 06/12/23 The patient is an INPATIENT: No Changes since office visit: Yes Patient answered all questions The patient has been examined within 24 hours of the surgical procedure. The History & Physical has been completed within 30 days and I have reviewed it.: No Section B - Complete if H&P > 30 days Chief Complaint: Spondylosis without myelopathy or radiculopathy, Details of Present Illness: As above Relevant Family History (Specify if Yes): No Relevant Social History: None Present Medications: see Short Stay Collaborative assessment Medical History: No relevant PMH History of Previous Operations: No relevant previous surgery Allergies: Allergies Allergy/AdvReac Type Severity Reaction Status Date / Time No Known Allergies Allergy Verified 06/04/23 13:14 [No Known Allergies*] Review of Systems Sugical H&P ROS: Negative: Respiratory, Neurological, Hem-Onc, Allergic/Immun ologic, Gastrointestinal, Genitourinary, Integumentary and Eyes/Ears/Nose/Throat and Yes, Specify: Constitution (Morbid obesity), Cardiovascular (Hypertension), Psychiatric (Anxiety depression), Musculoskeletal (Spondylosis lumbar) and Endocrine (Diabetes) Exam Surgical H&P Exam: Normal: HEENT, Normal: Heart, Normal: Lungs, Normal: Extremities, Normal: Skin and Normal: Neurological and Significant Findings: Abdomen (Enlarged 2 to i/a +s/q fat) Plan Diagnosis/Plan: Unchanged I have reviewed the history and physical and performed a pertinent physical examination on my patient. No changes have occurred unless specified. I will perform bilateral L3-L4 dorsal ramus L5 therapeutic medial branch block. Time Spent With Patient Time: Total time managing care of this patient today ____ minutes.
--- NOTE | 2023-06-12 09:19 | W.PM.OPN ---
Operative Note Operative Note Date of Service: 07/18/22 Narrative: Bilateral therapeutic Medial branch block L3- L4- L5. Informed consent was explained to the patient. All questions were explained and answered. The patient was taken inside the operating room where she was positioned prone on the operating table. ASA monitors were applied and the patient was sedated. Time-out was performed delineating correct site, side, the nature of the procedure, patient's allergy, preoperative antibiotic if needed. All operating room staff was participating in OR time-out procedure. The lower back was prepped with ChloraPrep and draped with sterile towels. Sterilely draped C-arm was brought over the operating field and square picture of L4-and L5 vertebra and S1 AREA were delineated on the screen. Point of interest were delineated as connection of superior articular process of L4 and L5 vertebra bilaterally with corresponding transverse processes, as well as connection of the sacral alae bilaterally with superior articular process of S1. The projections of the point of interest to the skin were injected with the small amount of local anesthetic lidocaine 2% 1-1.5 cc. After that 22 gauge 5 inch QP spinal needles were driven to the point of interest in tunnel vision fashion. After needles gently contacted the bone at the point of interests the needle was injected with small amount of bupivacaine 0.5%-1cc mixed with kenalog. Total dose of kenalog was 40 mg.. Upon completion of the injections needles were removed and sterile dressings were applied patient was awaken and taken outside of the operating room to recovery room where the patient recovered uneventfully. The patient went home without immediate complications.
[2023-06-12 09:20] VITALS: BMI 42.9
[2023-06-12 09:33] LABS: Glucose, Whole Blood 115 mg/dL (60-115)
[2023-06-12] MEDS: Lactated Ringers 1,000 ML 100 ML IVCONT (09:45)
--- NOTE | 2023-06-12 10:25 | PM.OP ---
Brief Operative Note Date of Service: 06/12/23 Pre-op diagnosis: spondylosis lumbar without myelopathy or radiculopathy Post-op diagnosis: same Procedure: MBB bilateral L3- L4- DRL5 therapeutic. Surgeon: Juan Carlos Taylor MD Anesthesia: MAC Was an Pin Ticket Machine Operator used for this Procedure?: No Estimated blood loss (mL): 0 Condition: stable Disposition: PACU
[2023-06-12 10:26] VITALS: BP 163/83; PULSE 90; RESP 14; TEMP 37.2; O2SAT 98
[2023-06-12 10:41] VITALS: BP 166/98; PULSE 93; RESP 16; TEMP 36.8; O2SAT 93
[2023-06-12 10:56] VITALS: BP 145/88; PULSE 95; RESP 20; TEMP 36.7; O2SAT 93
== END 2023-06-12 11:10 | disposition home or self-care (01) ==
PROVIDERS: PCP Family Medicine; Visit Provider Anesthesiology
PROC: (CPT 64493; principal; 2023-06-12 11:00)
DX: M47.816 Spondylosis without myelopathy or radiculopathy, lumbar region (principal); G89.4 Chronic pain syndrome; M41.9 Scoliosis, unspecified; M79.7 Fibromyalgia; I10 Essential (primary) hypertension; E11.21 Type 2 diabetes mellitus with diabetic nephropathy; E66.01 Morbid (severe) obesity due to excess calories; Z68.41 Body mass index [BMI] 40.0-44.9, adult; F41.9 Anxiety disorder, unspecified; D64.9 Anemia, unspecified; J45.909 Unspecified asthma, uncomplicated; G47.33 Obstructive sleep apnea (adult) (pediatric); Z79.4 Long term (current) use of insulin; Z99.89 Dependence on other enabling machines and devices; Z79.82 Long term (current) use of aspirin; Z79.899 Other long term (current) drug therapy; Z98.890 Other specified postprocedural states
CPT/HCPCS: 64493; 64494; 82947; J2250; J2795; J3010; J3301; Q9967

== ENCOUNTER → 2023-06-12 08:51 | Outpatient (BNV) | payer MEDICAID, SELFPAY | PROVIDERS: PCP Family Medicine; Visit Provider Anesthesiology | DX: M47.816 Spondylosis without myelopathy or radiculopathy, lumbar region (principal) | CPT/HCPCS: 64493; 64494 ==

== ENCOUNTER 2023-06-15 04:15 | Emergency (ER) | payer MEDICAID, SELFPAY ==
--- NOTE | ~2023-06-15 | XR_ITS ---
EXAMINATION: XR CHEST CLINICAL INFORMATION: Shortness of breath. COMPARISON: 05/06/2023 TECHNIQUE: Frontal view of the chest was obtained. FINDINGS: The lung volumes are low. The cardiomediastinal silhouette is stable. There is mild lower lung field increased markings. There is no focal lung consolidation or pleural effusion. The bony structures and soft tissues are unremarkable. XR/XR chest 1V IMPRESSION: Low lung volumes with mild lower lung field increased markings which may be secondary to low lung volumes. No focal lung consolidation.
[2023-06-15 04:24] VITALS: BP 142/96; BP 160/71; PULSE 77; PULSE 78; RESP 20; TEMP 37.1; O2SAT 95; O2SAT 96; BMI 43.5
[2023-06-15 04:42] LABS: Basophils Percent Auto 0.3 % (0-2); Eosinophils Percent Auto 0.1 % (0-4); Hematocrit 35.7 % (37.0-47.0); Hemoglobin 10.9 g/dl (12.0-16.0); Imm Gran Abs Auto 0.22 X10*3/uL (0.00-0.03); Imm Gran Pct Auto 1.6 % (0.0-0.4); Lymphocytes Absolute Auto 3.6 X10*3/uL (1.2-4.9); Lymphocytes Percent Auto 25.7 % (20-40); MANUAL DIFF FLAG NO; Mean Corpuscular HGB Conc 30.5 g/dl (31.0-35.0); Mean Corpuscular Hemoglobin 26.5 pg (27.0-33.0); Mean Corpuscular Volume 86.9 fL (80.0-98.0); Mean Platelet Volume 10.4 fL (9.4-12.3); Monocytes Absolute Auto 0.9 X10*3/uL (0.1-1.2); Monocytes Percent Auto 6.4 % (2-11); NRBC Pct Auto 0.5 /100WBC (0.0-0.2); Neutrophils Absolute Auto 9.3 x10*3/uL (2.0-8.3); Neutrophils Percent Auto 65.9 % (45-73); Platelet Count 291 X10*3/uL (160-400); Red Blood Count 4.11 X10*6/uL (4.20-5.50); Red Cell Distribution Width 16.2 % (11.0-16.0); White Blood Count 14.1 X10*3/uL (4.8-10.8)
--- NOTE | 2023-06-15 04:42 | ECG_ITS ---
Test Reason : CHEST PAIN Blood Pressure : / mmHG Vent. Rate : 090 BPM Atrial Rate : 090 BPM P-R Int : 126 ms QRS Dur : 096 ms QT Int : 360 ms P-R-T Axes : 037 034 036 degrees QTc Int : 440 ms Normal sinus rhythm Normal ECG When compared with ECG of 06-MAY-2023 05:02, No significant change was found Referred By: Generic ED Physician Electronically Signed By:ANTOINE RDZ
[2023-06-15 04:58] LABS: Glucose, Whole Blood 357 mg/dL (60-115)
[2023-06-15 05:00] LABS: Alanine Aminotransferase 9 U/L (0-31); Albumin Level 3.9 g/dL (3.5-5.0); Alkaline Phosphatase 130 U/L (39-117); Anion Gap 15 (12-20); Aspartate Amino Transferase 9 U/L (5-31); Bilirubin Total 0.3 mg/dL (0.0-1.0); Blood Urea Nitrogen 15 mg/dL (9-16); Calcium 9.2 mg/dL (8.4-10.2); Carbon Dioxide 25 mmol/L (22-29); Chloride 106 mmol/L (96-108); Creatinine Clr Calc Pharmacy 112.9; Estimated Glomerular Filt Rate > 60; Glucose Random 429 mg/dL (60-115); Potassium 3.8 mmol/L (3.3-5.1); Sodium 142 mmol/L (135-145); Total Protein 7.1 g/dL (6.5-8.0)
[2023-06-15 05:06] LABS: Glucose, Whole Blood 383 mg/dL (60-115)
--- NOTE | 2023-06-15 05:10 | PC.NURSE ---
Notified provider of critical poc and blood glucose.
[2023-06-15 05:28] LABS: Influenza A PCR NEGATIVE (Negative); Influenza B PCR NEGATIVE (Negative); Resp Syncy Virus RNA Qual PCR NEGATIVE (Negative); SARS COV2 PCR INHOUSE NEGATIVE (Negative)
[2023-06-15 06:34] VITALS: BP 161/75; PULSE 87; RESP 20; TEMP 36.9; O2SAT 95
[2023-06-15 06:55] LABS: Glucose, Whole Blood 312 mg/dL (60-115)
--- NOTE | 2023-06-15 07:27 | ED.ASTHMA ---
HPI - Asthma General Chief Complaint: Dyspnea Stated Complaint: SOB Time Seen by Provider: 06/15/23 07:02 Source: patient and old records reviewed Mode of arrival: EMS Limitations: no limitations History of Present Illness HPI Narrative: 57 yo female with PMH of DINA on CPAP, obesity, cirrhosis, depression, tremors, HTN, DM, HLD, asthma, hypothyroidism, anxiety, GERD here with c/o not feeling great last night with fatigue, asthma wheezing, dyspnea, taking inhaler that is not helping her chest feels tight. She denies sick contacts does have some chills. MD complaint: asthma attack Onset (ago): day(s) (last night) Severity: moderate Context: none known Associated symptoms: dry cough Asthma History: childhood onset Treatments Prior to Arrival: inhaled bronchodilator Related Data Home Medications ?Medication ?Instructions ?Recorded ?Confirmed clonidine HCl 0.1 mg tablet 0.1 mg PO BEDTIME PRN Anxiety 11/30/19 06/12/23 ferrous sulfate 325 mg (65 mg 325 mg PO Q OTHER DAY 11/30/19 06/12/23 iron) tablet rosuvastatin 20 mg tablet (Crestor) 20 mg PO BEDTIME 11/30/19 06/12/23 thiamine HCl (vitamin B1) 100 mg 100 mg PO DAILY 11/30/19 06/12/23 tablet aspirin 81 mg tablet,delayed 81 mg PO DAILY 01/01/21 06/12/23 release cyanocobalamin (vitamin B-12) 1,000 mcg IM [id number] 01/01/21 06/12/23 1,000 mcg/mL injection solution clonazepam 1 mg tablet 1 mg PO TID PRN Anxiety 05/07/21 06/12/23 omeprazole 20 mg capsule,delayed 20 mg PO DAILY@0630 05/07/21 06/12/23 release valsartan 160 mg tablet 160 mg PO DAILY 05/07/21 06/12/23 cholecalciferol (vitamin D3) 50 50 mcg PO DAILY 07/12/21 06/12/23 mcg (2,000 unit) capsule docusate sodium 100 mg capsule 100 mg PO BID 09/26/21 06/12/23 levothyroxine 125 mcg tablet 1 tab PO DAILY@0600 10/23/21 06/12/23 nortriptyline 50 mg capsule 1 cap PO BEDTIME 10/23/21 06/12/23 albuterol sulfate 2.5 mg/3 mL 2.5 mg inhalation Q4H PRN Wheezing 12/04/21 06/12/23 (0.083 %) solution for nebulization aripiprazole 2 mg tablet 2 mg PO DAILY 09/13/22 06/12/23 glucagon 3 mg/actuation nasal 3 mg intranasal DAILY PRN 09/13/22 02/02/23 spray (Baqsimi) 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 oxybutynin chloride 10 mg 10 mg PO DAILY 09/13/22 06/12/23 tablet,extended release 24 hr Previous Rx's ?Medication ?Instructions ?Recorded TRUEplus Lancets 33 gauge (lancets) #120 ea 12/13/21 metformin 500 mg tablet 1,000 mg (2 x 500 mg) PO BID 90 05/20/22 days #360 tabs flash glucose scanning reader #1 ea 06/05/22 (FreeStyle Ortiz 2 [place]) blood-glucose meter (FreeStyle #1 ea 07/17/22 Lite Meter kit) ibuprofen 600 mg tablet 600 mg PO Q6H PRN pain #30 tabs 09/09/22 psyllium seed (sugar) oral powder 1 tbsp PO BID #1,254 grams 10/13/22 (Metamucil (sugar) oral powder) flash glucose sensor (FreeStyle #2 kits 12/09/22 Ortiz 2 Sensor kit) tiotropium bromide 2.5 2 puff inhalation DAILY 30 days #4 01/16/23 mcg/actuation mist for inhalation grams (Spiriva Respimat) propranolol 80 mg tablet 80 mg PO BID 90 days #180 tabs 03/25/23 furosemide 20 mg tablet 20 mg PO QAM #30 tabs 03/26/23 gabapentin 400 mg capsule 400 mg PO TID #90 caps 03/26/23 pen needle, diabetic 32 gauge x #100 ea 03/26/23 (Pentips) fluticasone 232 mcg-salmeterol 14 1 inh inhalation BID 30 days #1 ea 04/22/23 mcg/actuation breath activated powdr (AirDuo RespiClick) prednisone 20 mg tablet 60 mg (3 x 20 mg) PO DAILY #12 tabs 05/06/23 nystatin 100,000 unit/mL oral 500,000 unit (5 mL) PO TID 7 days 05/18/23 suspension #105 mL blood sugar diagnostic (FreeStyle #150 ea 06/02/23 Lite Strips) insulin regular hum U-500 conc 500 60 unit (0.12 mL) subcut .twice a 06/02/23 unit/mL(3 mL) subcut pen (Humulin day #6 mL R U-500 (Conc) Insulin Kwikpen) tirzepatide 2.5 mg/0.5 mL 2.5 mg (0.5 mL) subcut QWEEK 4 06/02/23 subcutaneous pen injector weeks #2 mL (Mounjaro) azithromycin 250 mg tablet See Rx Instructions PO .COMPLEX #6 06/15/23 tabs Allergies Allergy/AdvReac Type Severity Reaction Status Date / Time No Known Allergies Allergy Verified 06/15/23 04:29 [No Known Allergies*] Review of Systems Review of Systems: Constitutional : No Fever, No Chills, pos fatigue ENT/Mouth : No Hoarseness, No sore throat, No Rhinorrhea Eyes: No Redness, No Discharge, No Vision Changes Cardiovascular : No Chest Pain, positive SOB, positive Dyspnea on Exertion, No Edema Respiratory : positive Cough, No Sputum, positive Wheezing, Gastrointestinal : No Nausea, No Vomiting, No Diarrhea, No abdominal Pain Genitourinary : No Dysuria, No Hematuria Musculoskeletal : No joint pain, No Myalgias Skin : No rash Neuro : pos Weakness, No Numbness, No Headache Psych : No anxiety, depression Heme/Lymph: No Bruising, No Bleeding Endocrine : No Polyuria, No Polydipsia All other systems reviewed and are negative PMFSH Past Medical History Attestation statement: The following information was validated with the patient. 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 Gastroparesis 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, uncontrolled Anemia Hemorrhoids Migraine Asthma Patellofemoral arthritis Patella-femoral syndrome Lumbar spondylosis Fibromyalgia Tubular adenoma Family history of colon cancer Vitamin D deficiency Dyslipidemia Genu valgum Low back pain Palpitations Chest pain HTN (hypertension) Surgical History Status post hemorrhoidectomy History of hemorrhoidectomy (~09/09/22) History of surgery Hx of section H/O esophagogastroduodenoscopy History of colonoscopy History of arthroscopy of right knee History of bilateral carpal tunnel release History of bladder surgery History of tubal ligation Hx of tonsillectomy Family History Family History Father Stomach cancer Mother Heart disease HTN (hypertension) Diabetes Son No problems noted. 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) Alcohol intake: current Alcohol intake frequency: does not drink Patient Tobacco Use Status: Never used Tobacco Smoked in Last 30 Days: No Second Hand Smoke Exposure: No Use of substances other than those prescribed or required for medical reasons: No Advance Directives: No Advance Directives Information Provided: Yes Patient : No service: No Current occupational status: disabled Current occupation: lt handed Sexual orientation: Straight/Heterosexual Gender identity: Female Physical Exam Vital Signs: Vital Signs: Last Vital Signs Temp 98.5 F 06/15/23 06:34 Pulse 81 06/15/23 07:42 Resp 20 06/15/23 08:12 BP 161/75 H 06/15/23 06:34 Pulse Ox 94 06/15/23 08:12 O2 Del Method Room Air 06/15/23 08:12 BMI result Body Mass Index 43.5 Appearance: Alert. Oriented X3. No acute distress. Eyes: Pupils equal, round and reactive to light. ENT: Pharynx normal. Neck: Normal inspection. Neck supple. CVS: Normal heart rate and rhythm. Pulses normal. Respiratory: No respiratory distress. Breath sounds coarse with rhonchi noted throughout Abdomen: Soft and nontender. Skin: Skin warm and dry. Normal skin color. Normal skin turgor. Extremities: No lower extremity edema. No calf ttp Neuro: Oriented X 3. No motor deficit. No sensory deficit. 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 Will likely treat with PO antiboitics as well given elevated WBC count, IV insulin ordered. Doubt ACS seems more infectious and doubt VTE has no hypoxia, signs of DVT, tachycardia. Differential Diagnosis Differential Diagnoses: The differential diagnosis associated with the presentation includes viral syndrome, asthma, bronchitis Admission/Observation Consideration of admission/observation: Escalation of care including admission/observation considered not toxic, no hypoxia stable for DC feels better stable for DC Lab Data [facility] Lab Attestation statement: I reviewed the patient's lab results. 06/15/23 04:36 06/15/23 04:36 Labs: Lab Results 06/15/23 06/15/23 06/15/23 Range/Units 04:36 04:45 04:47 WBC 14.1 H (4.8-10.8) X10*3/uL RBC 4.11 L (4.20-5.50) X10*6/uL Hgb 10.9 L (12.0-16.0) g/dl Hct 35.7 L (37.0-47.0) % MCV 86.9 (80.0-98.0) fL MCH 26.5 L (27.0-33.0) pg MCHC 30.5 L (31.0-35.0) g/dl RDW 16.2 H (11.0-16.0) % Plt Count 291 (160-400) X10*3/uL MPV 10.4 (9.4-12.3) fL Immature Gran % (Auto) 1.6 H (0.0-0.4) % Neut % (Auto) 65.9 (45-73) % Lymph % (Auto) 25.7 (20-40) % Guthrie % (Auto) 6.4 (2-11) % Eos % (Auto) 0.1 (0-4) % Baso % (Auto) 0.3 (0-2) % Lymph # (Auto) 3.6 (1.2-4.9) X10*3/uL Guthrie # (Auto) 0.9 (0.1-1.2) X10*3/uL Eos # (Auto) 0.0 (0.0-0.4) X10*3/uL Baso # (Auto) 0.0 (0.0-0.2) X10*3/uL Abs Immat Gran (auto) 0.22 H (0.00-0.03) X10*3/uL Absolute Neuts (auto) 9.3 H (2.0-8.3) x10*3/uL Absolute Nucleated RBC 0.070 H (0.0-0.012) X10*3/uL Nucleated RBC % (auto) 0.5 H (0.0-0.2) /100WBC Sodium 142 (135-145) mmol/L Potassium 3.8 (3.3-5.1) mmol/L Chloride 106 (96-108) mmol/L Carbon Dioxide 25 (22-29) mmol/L Anion Gap 15 (12-20) BUN 15 (9-16) mg/dL Creatinine 0.70 (0.5-1.4) mg/dL Estim Creat Clear Calc 112.9 Estimated GFR > 60 POC Glucose 357 H* (60-115) mg/dL Random Glucose 429 H* (60-115) mg/dL Calcium 9.2 (8.4-10.2) mg/dL Total Bilirubin 0.3 (0.0-1.0) mg/dL AST 9 (5-31) U/L ALT 9 (0-31) U/L Alkaline Phosphatase 130 H (39-117) U/L Troponin I High Sens < 2.7 (<3.5-17.0) ng/L Total Protein 7.1 (6.5-8.0) g/dL Albumin 3.9 (3.5-5.0) g/dL Influenza Type A (PCR) NEGATIVE (Negative) Influenza Type B (PCR) NEGATIVE (Negative) RSV RNA Qual (PCR) NEGATIVE (Negative) SARS-CoV-2 RNA (RT-PCR) NEGATIVE (Negative) 06/15/23 06/15/23 06/15/23 Range/Units 05:03 06:51 08:29 WBC (4.8-10.8) X10*3/uL RBC (4.20-5.50) X10*6/uL Hgb (12.0-16.0) g/dl Hct (37.0-47.0) % MCV (80.0-98.0) fL MCH (27.0-33.0) pg MCHC (31.0-35.0) g/dl RDW (11.0-16.0) % Plt Count (160-400) X10*3/uL MPV (9.4-12.3) fL Immature Gran % (Auto) (0.0-0.4) % Neut % (Auto) (45-73) % Lymph % (Auto) (20-40) % Guthrie % (Auto) (2-11) % Eos % (Auto) (0-4) % Baso % (Auto) (0-2) % Lymph # (Auto) (1.2-4.9) X10*3/uL Guthrie # (Auto) (0.1-1.2) X10*3/uL Eos # (Auto) (0.0-0.4) X10*3/uL Baso # (Auto) (0.0-0.2) X10*3/uL Abs Immat Gran (auto) (0.00-0.03) X10*3/uL Absolute Neuts (auto) (2.0-8.3) x10*3/uL Absolute Nucleated RBC (0.0-0.012) X10*3/uL Nucleated RBC % (auto) (0.0-0.2) /100WBC Sodium (135-145) mmol/L Potassium (3.3-5.1) mmol/L Chloride (96-108) mmol/L Carbon Dioxide (22-29) mmol/L Anion Gap (12-20) BUN (9-16) mg/dL Creatinine (0.5-1.4) mg/dL Estim Creat Clear Calc Estimated GFR POC Glucose 383 H* 312 H 291 H (60-115) mg/dL Random Glucose (60-115) mg/dL Calcium (8.4-10.2) mg/dL Total Bilirubin (0.0-1.0) mg/dL AST (5-31) U/L ALT (0-31) U/L Alkaline Phosphatase (39-117) U/L Troponin I High Sens (<3.5-17.0) ng/L Total Protein (6.5-8.0) g/dL Albumin (3.5-5.0) g/dL Influenza Type A (PCR) (Negative) Influenza Type B (PCR) (Negative) RSV RNA Qual (PCR) (Negative) SARS-CoV-2 RNA (RT-PCR) (Negative) Independent Interpretation I performed an independent interpretation of an: EKG and Plain X-Ray (no pneumonia) Interpretation: Rate: 90 Rhythm: NSR [place]: normal Normal P waves. Normal KOURT[place]. Normal QRS complex. ST T wave : normal no MIKEY qTC: 440 prior studies: no acute ischemia The study has been interpreted contemporaneously by me. . Radiology Impression Discussion of test interpretation with radiology: I have reviewed the radiologist's reading. Independent Historian Clinical information obtained from an independent historian. History obtained from or confirmed by: EMS External Record Review External record reviewed: Inpatient record Prescription Management I considered prescription management with: Antibiotic and Other Discharge Plan Discharge Clinical Impression: Acute hyperglycemia, Bronchitis Patient Disposition: Home, Self-Care Instructions: Acute Bronchitis (ED), Diabetic Hyperglycemia (ED) Additional Instructions: return for worsening symptoms, fevers, pain inability to eat or drink or any other concerns. Prescriptions: New azithromycin 250 mg tablet See Rx Instructions .ROUTE .COMPLEX Qty: 6 0RF Rx Instructions: For 250 mg dose pack: take 500 mg today (day 1), then 250 mg for 4 days (days 2-5) No Action (DME) lancets [TRUEplus Lancets] 33 gauge misc See Rx Instructions .ROUTE .MEDSUPPLY Qty: 120 11RF Rx Instructions: 4 times a day metformin 500 mg tablet 1,000 mg PO BID 90 Days Qty: 360 1RF Hold Instructions: Resume on 09/15/22. (DME) blood-glucose meter [FreeStyle Lite Meter] Kit See Rx Instructions .Route Qty: 1 0RF Rx Instructions: As directed (DME) FreeStyle Ortiz 2 Sensor Kit See Rx Instructions .ROUTE .COMPLEX Qty: 2 6RF Dose Instruction: USE DIRECTED EVERY 14 DAYS Rx Instructions: USE DIRECTED EVERY 14 DAYS Spiriva Respimat 2.5 mcg/actuation mist 2 puff inhalation DAILY 30 Days Qty: 4 6RF propranolol 80 mg tablet 80 mg PO BID 90 Days Qty: 180 0RF Rx Instructions: Keep 1 year follow up appt on: 04/13/23 @ 1:15 PM @ [facility], Irma Tomlinson, [place] furosemide 20 mg tablet 20 mg PO QAM Qty: 30 3RF (DME) pen needle, diabetic [Pentips] 32 gauge x 5/32 needle See Rx Instructions .ROUTE .COMPLEX Qty: 100 11RF Dose Instruction: USE DIRECTED TWICE DAILY Rx Instructions: USE DIRECTED TWICE DAILY gabapentin 400 mg capsule 400 mg PO TID Qty: 90 4RF nystatin 100,000 unit/mL suspension 500,000 unit PO TID 7 Days Qty: 105 0RF Rx Instructions: swish and swallow (DME) FreeStyle Lite Strips Strip See Rx Instructions .MEDSUPPLY Qty: 150 5RF Rx Instructions: 5 times a day levothyroxine 125 mcg tablet 1 tab PO DAILY@0600 nortriptyline 50 mg capsule 1 cap PO BEDTIME Rx Instructions: TAKE WITH 75 MG ibuprofen 600 mg tablet 600 mg PO Q6H PRN (Reason: pain) Qty: 30 0RF oxybutynin chloride 10 mg tablet extended release 24hr 10 mg PO DAILY aripiprazole 2 mg tablet 2 mg PO DAILY Baqsimi 3 mg/actuation spray,non-aerosol 3 mg intranasal DAILY PRN (Reason: 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) Rx Instructions: [place] once for severe hypoglycemia when patient cannot self-treat with glucose. Afterwards turn on side. May repeat after 15 minutes if patient does not respond. prednisone 20 mg tablet 60 mg PO DAILY Qty: 12 0RF clonidine HCl 0.1 mg tablet 0.1 mg PO BEDTIME PRN (Reason: Anxiety) rosuvastatin [Crestor] 20 mg tablet 20 mg PO BEDTIME thiamine HCl (vitamin B1) 100 mg tablet 100 mg PO DAILY Rx Instructions: WITH MEAL ferrous sulfate 325 mg (65 mg iron) tablet 325 mg PO Q OTHER DAY clonazepam 1 mg tablet 1 mg PO TID PRN (Reason: Anxiety) valsartan 160 mg tablet 160 mg PO DAILY omeprazole 20 mg capsule,delayed release(DR/EC) 20 mg PO DAILY@0630 cyanocobalamin (vitamin B-12) 1,000 mcg/mL solution 1,000 mcg IM [id number] aspirin 81 mg tablet,delayed release (DR/EC) 81 mg PO DAILY docusate sodium 100 mg capsule 100 mg PO BID cholecalciferol (vitamin D3) 50 mcg (2,000 unit) capsule 50 mcg PO DAILY (DME) FreeStyle Ortiz 2 [place] Misc See Rx Instructions .Route Qty: 1 0RF Rx Instructions: As directed albuterol sulfate 2.5 mg /3 mL (0.083 %) solution for nebulization 2.5 mg inhalation Q4H PRN (Reason: Wheezing) Metamucil (sugar) Powder 1 tbsp PO BID Qty: 1254 0RF fluticasone propion-salmeterol [AirDuo RespiClick] 232-14 mcg/actuation aerosol powdr breath activated 1 inh inhalation BID 30 Days Qty: 1 6RF Humulin R U-500 (Conc) Kwikpen 500 unit/mL (3 mL) insulin pen 60 unit subcut .twice a day Qty: 6 4RF Mounjaro 2.5 mg/0.5 mL pen injector 2.5 mg subcut QWEEK 28 Days Qty: 2 3RF Print Language: Telugu
[2023-06-15] MEDS: Albuterol/Iprat 2.5/0.5MG 3 ML AMPUL.NEB INHALE (07:41)
[2023-06-15 07:42] VITALS: PULSE 81; RESP 18; O2SAT 96
[2023-06-15 07:58] LABS: Troponin-I High Sensitivity < 2.7 ng/L (<3.5-17.0)
[2023-06-15 08:12] VITALS: RESP 20; O2SAT 94
[2023-06-15 08:33] LABS: Glucose, Whole Blood 291 mg/dL (60-115)
[2023-06-15] MEDS: Insulin Regular, Human 100 UNIT/ML 3 ML VIAL IVPUSH (08:40)
[2023-06-15] MEDS: dexAMETHasone 6 MG TABLET PO (08:40)
[2023-06-15 09:48] VITALS: BP 156/78; PULSE 87; RESP 20; TEMP 37; O2SAT 95
== END 2023-06-15 09:49 | disposition home or self-care (01) ==
PROVIDERS: Emergency Provider Emergency Medicine; PCP Family Medicine
DX: J40 Bronchitis, not specified as acute or chronic (principal); E11.65 Type 2 diabetes mellitus with hyperglycemia; I10 Essential (primary) hypertension
CPT/HCPCS: 0241U; 36415; 71045; 80053; 82947; 84484; 85025; 93005; 94640; 96374; 99284; 99285; J8540

== ENCOUNTER → 2023-06-15 04:42 | Outpatient (BNV) | payer MEDICAID, SELFPAY | PROVIDERS: Emergency Provider Emergency Medicine; PCP Family Medicine; Visit Provider Internal Medicine | DX: R07.9 Chest pain, unspecified (principal) | CPT/HCPCS: 93010 ==

== ENCOUNTER 2023-06-22 08:43 | Outpatient (AMB) | payer MEDICAID, SELFPAY ==
--- NOTE | 2023-06-22 08:55 | MHC.OFFVIS ---
Vital Signs 06/22/23 09:09 Height 5 ft 4 in Weight 253 lb BMI 43.4 BP 140/80 H Blood Pressure Location Lt brachial Position Sitting Respiration 14 Pulse 78 Pulse Source Pulse Oximeter Pulse Oximetry (%) 100 Oxygen Delivery Method Room Air Intake Visit Reasons: S/p B/l L3-L4-L5 MBB Intake Note: Patient comes in for post-op appointment. Reports pain 0/10. Allergies No Known Allergies [No Known Allergies*] Allergy (Verified 06/22/23 09:10) HPI Comments Details: Candace is very pleasant Turkmen-speaking 56 years old female who presents in my office after therapeutic bilateral L3-L4 dorsal ramus L5 medial branch block?which worse performed on her on 06/11/2023 before that she had the procedure done on 07/17/2022. She reports better mobility, better activities of daily living, better social interactions. She reports significant sleep improvement after the procedure. It has been 11 days since the injection. She was informed that when her pain will come back to give us a call and schedule the injection again provided is not earlier than 10/17/2022. She reported 80 % pain improvement on diagnostic and 80% pain improvement lasting for 5-6 months therapeutic bilateral medial branch block L3-L4 does ramus L5. We performed second therapeutic MBB on 01/09/2022.? She is severely morbidly obese and injection and blocks present certain challenge.? I do not believe in her case when I do the injections I have to advance 5 in spinal needles to the target with them being imbedded into the skin.? With this situation I do not believe RFA is feasible procedure for this patient.? Currently she is under observation with Dr. James for bariatric surgery she is scheduled for sleeve gastrectomy. Prior: Lumbar spine MRI was completed on 06/03/21 and demonstrated degenerative disc disease and degenerative arthrosis of the articular facet joints at L3-L4 and L4-L5. Otherwise unremarkable examination in that there is no canal stenosis and no mass effect on the traversing or foraminal nerve roots. History of continuous low back pain that radiates to her right anterior and lateral thigh up to the knee with occasional numbness and tingling in her toes. She also had bilateral SIJ injections with good results. 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 due to insulin 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 Gastroparesis 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, uncontrolled Anemia Hemorrhoids Migraine Asthma Patellofemoral arthritis Patella-femoral syndrome Lumbar spondylosis Fibromyalgia Tubular adenoma Family history of colon cancer Vitamin D deficiency Dyslipidemia Genu valgum Low back pain Palpitations Chest pain HTN (hypertension) Surgical History Status post hemorrhoidectomy History of hemorrhoidectomy (~09/09/22) History of surgery Hx of section H/O esophagogastroduodenoscopy History of colonoscopy History of arthroscopy of right knee History of bilateral carpal tunnel release History of bladder surgery History of tubal ligation Hx of tonsillectomy Family History Father Stomach cancer Mother Heart disease HTN (hypertension) Diabetes Son No problems noted. Paternal Aunt Stomach cancer Sister Stomach cancer Sister Uterine cancer Social History Household Members: Family Household Members Other:: adult son Housing: Apartment Are you a primary ambulatory care nurse to a significant other at home: No Do you presently have visiting nurse or other home services: Yes (COVER MARKER daily) Alcohol intake: current Alcohol intake frequency: does not drink Patient Tobacco Use Status: Never used Tobacco Second Hand Smoke Exposure: No service: No Current occupational status: disabled Current occupation: lt handed Sexual orientation: Straight/Heterosexual Gender identity: Female Female Reproductive History Menstrual Age of Menarche: 17 Review of Systems Const All systems reviewed & are unremarkable except as noted in HPI and below ENT Reports Normal hearing present Neuro Reports Normal hearing present, Denies confusion and Denies Sensory deficit (Neuro) Psych Denies confusion Physical Exam Vital Signs: Last Vital Signs Pulse 78 06/22/23 09:09 Resp 14 06/22/23 09:09 BP 140/80 H 06/22/23 09:09 Pulse Ox 100 06/22/23 09:09 Oxygen Delivery Method Room Air 06/22/23 09:09 BMI result Body Mass Index 43.4 Const General: comfortable, no acute distress, well developed, alert and awake; No confusion Orientation/consciousness: No confusion Eyes Pupils: Equal, round and reactive pupils present EOM: EOMs intact bilaterally Chest Chest palpation & inspection: normal inspection of the chest Resp Effort & Inspection: normal respiratory effort, able to speak in complete sentences, normal respiratory pattern, no audible wheezes and no cough Cardio Jugular venous distension: no JVD Back/Spine/Pelvis Other: tenderness on palpation in paraspinal spinal region in lumbar spine. Loading test is positive. Range of motion in lumbar spine is preserved. Able to stand on bilateral feet,, able to stand on bilateral heels. Able dorsiflex large toe. Bilaterally. Neuro General: No confusion Cranial nerves: Yes Equal, round and reactive pupils present and Yes Normal hearing present Sensory Exam: No Sensory deficit (Neuro) Psych Speech and movement: Normal speech and movement present Affect: normal affect Attitude: cooperative Assessment & Plan Assessment & Plan (1) Morbid obesity: Code(s): E66.01 - Morbid (severe) obesity due to excess calories Category: Medical (2) Scoliosis of thoracolumbar spine: Code(s): M41.9 - Scoliosis, unspecified Category: Medical (3) Spondylosis of lumbar region without myelopathy or radiculopathy: Code(s): M47.816 - Spondylosis without myelopathy or radiculopathy, lumbar region Category: Medical Plan Good results for prior medial branch block injections. Severe morbid obesity: it is difficult to perform the procedure. It requires me to advance [address] in with imbedding the hub of the needle into the skin to reach the targets. I do not think at this time RFA is feasible. Very good results of medial branch block lasting more than 4-5 months. I think this injection is good solution for the patient's pain even though her condition is complicated. She is also scheduled for bariatric surgery with Dr. James. We will request clearance from Dr. James office for the performance of steroid injection procedure. Maybe in the future if she will lose the weight after the bariatric surgery it will be easier to perform RFA or PNS for her.
[2023-06-22 09:09] VITALS: BP 140/80; PULSE 78; RESP 14; O2SAT 100; BMI 43.4
== END 2023-06-22 09:25 | disposition home or self-care (01) ==
PROVIDERS: PCP Family Medicine; Referring Provider Family Medicine; Visit Provider Anesthesiology
DX: M47.816 Spondylosis without myelopathy or radiculopathy, lumbar region (principal); M41.9 Scoliosis, unspecified; E66.01 Morbid (severe) obesity due to excess calories
CPT/HCPCS: 99213

== ENCOUNTER → 2023-06-22 08:43 | Outpatient (BNVA) | payer MEDICAID, SELFPAY | PROVIDERS: PCP Family Medicine; Visit Provider Anesthesiology | DX: E66.01 Morbid (severe) obesity due to excess calories (principal); M47.816 Spondylosis without myelopathy or radiculopathy, lumbar region; M41.9 Scoliosis, unspecified; Z68.41 Body mass index [BMI] 40.0-44.9, adult | CPT/HCPCS: 99212 ==

== ENCOUNTER 2023-06-26 09:16 | Outpatient (AMB) | payer MEDICAID, SELFPAY ==
[2023-06-26 09:46] VITALS: BP 102/60; PULSE 74; BMI 40.6
--- NOTE | 2023-06-26 09:46 | MHC.OFFVIS ---
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: No Pari Mutuel Clerk: Pari Mutuel Clerk Present Allergies No Known Allergies [No Known Allergies*] Allergy (Verified 06/26/23 09:48) Medication List - Last Reconciled 06/26/23 by DAGOBERTO Hernandez albuterol sulfate 2.5 mg inhalation Q4H PRN aripiprazole 2 mg PO DAILY aspirin 81 mg PO DAILY azithromycin For 250 mg dose pack: take 500 mg today (day 1), then 250 mg for 4 days (days 2-5) blood sugar diagnostic (FreeStyle Lite Strips) 5 times a day blood-glucose meter (FreeStyle Lite Meter kit) As directed cholecalciferol (vitamin D3) 50 mcg PO DAILY clonazepam 1 mg PO TID PRN clonidine HCl 0.1 mg PO BEDTIME PRN cyanocobalamin (vitamin B-12) 1,000 mcg IM [id number] docusate sodium 100 mg PO BID ferrous sulfate 325 mg PO Q OTHER DAY flash glucose scanning reader (ConSentry NetworksStyle Ortiz 2 Hidalgo) As directed flash glucose sensor (FreeStyle Ortiz 2 Sensor kit) USE DIRECTED AND CHANGE EVERY 14 DAYS fluticasone propion-salmeterol 232-14 mcg/actuation (AirDuo RespiClick) 1 inh inhalation BID 30 days furosemide 20 mg PO QAM gabapentin 400 mg PO TID glucagon 3 mg/actuation (Baqsimi) 3 mg intranasal DAILY PRN ibuprofen 600 mg PO Q6H PRN insulin regular hum U-500 conc (Humulin R U-500 (Conc) Insulin Kwikpen) 60 units (0.12 mL) subcut .twice a day levothyroxine 1 tab PO DAILY@0600 metformin 1,000 mg (2 x 500 mg) PO BID 90 days nortriptyline 1 cap PO BEDTIME nystatin 500,000 units (5 mL) PO TID 7 days omeprazole 20 mg PO DAILY@0630 oxybutynin chloride ER 10 mg PO DAILY pen needle, diabetic (Pentips) USE DIRECTED TWICE DAILY prednisone 60 mg (3 x 20 mg) PO DAILY propranolol 80 mg PO BID psyllium seed (sugar) (Metamucil (sugar) oral powder) 1 tbsp PO BID rosuvastatin (Crestor) 20 mg PO BEDTIME thiamine HCl (vitamin B1) 100 mg PO DAILY tiotropium bromide 2.5 mcg/actuation (Spiriva Respimat) 2 puffs inhalation DAILY 30 days tirzepatide (Mounjaro) 2.5 mg (0.5 mL) subcut QWEEK 4 weeks TRUEplus Lancets (lancets) 4 times a day NS valsartan 160 mg PO DAILY HPI HPI r/s x2 1 year followup w/ekg : Details: Candace is a 57-year-old female with past medical history of hypertension, hyperlipidemia, diabetes, morbid obesity, obstructive sleep apnea treated with CPAP, COPD who presents for follow-up of her shortness of breath. Last prior visit to our office was 03/20/2022. Today she reports that since her last visit her breathing has been essentially unchanged. She does have a history of asthma and has not had any acute exacerbations. She has her usual chronic shortness of breath with exertional activities. She admits to being mostly sedentary. No chest discomfort at rest or with activity. No heart palpitations, dizziness, presyncope, syncope, PND, orthopnea, edema. Takes meds as directed. Daughter present and assisting with Maltese translation at their request, permit signed. 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 of 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 Gastroparesis 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, uncontrolled Anemia Hemorrhoids Migraine Asthma Patellofemoral arthritis Patella-femoral syndrome Lumbar spondylosis Fibromyalgia Tubular adenoma Family history of colon cancer Vitamin D deficiency Dyslipidemia Genu valgum Low back pain Palpitations Chest pain HTN (hypertension) Surgical History Status post hemorrhoidectomy History of hemorrhoidectomy (~09/09/22) History of surgery Hx of section H/O esophagogastroduodenoscopy History of colonoscopy History of arthroscopy of right knee History of bilateral carpal tunnel release History of bladder surgery History of tubal ligation Hx of tonsillectomy Family History Father Stomach cancer Mother Heart disease HTN (hypertension) Diabetes Son No problems noted. 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) Alcohol intake: current Alcohol intake frequency: does not drink Patient Tobacco Use Status: Never used Tobacco Second Hand Smoke Exposure: No service: No Current occupational status: disabled Current occupation: lt handed Sexual orientation: Straight/Heterosexual Gender identity: Female Female Reproductive History Menstrual Age of Menarche: 17 Review of Systems Const All systems reviewed & are unremarkable except as noted in HPI and below ENT Denies dizziness Card Denies chest pain, Denies chest pain at rest, Denies chest pain with activity, Denies rapid heart rate, Denies pedal edema, Denies edema, Denies leg edema, Denies lightheadedness, Denies palpitations, Denies dyspnea, Reports dyspnea on exertion and Denies orthopnea Resp Denies cough, Denies dyspnea and Reports dyspnea on exertion GI Denies hematochezia and Denies change in stool character Musc Details: Hand tremors Denies abnormal gait, Denies limited range of motion, Denies muscle cramps, Denies muscle weakness, Denies numbness, Denies radiating pain into limb, Denies stiffness and Denies tingling Neuro Denies abnormal gait, Denies dizziness, Denies numbness and Denies tingling Endo Denies palpitations Physical Exam Vital Signs: Last Vital Signs Pulse 74 06/26/23 09:46 BP 102/60 06/26/23 09:46 BMI result Body Mass Index 40.6 Const Other: Tremor of hands noted General: cooperative, healthy appearing, comfortable and no acute distress Orientation/consciousness: patient oriented x3 Neck Neck: Yes normal visual inspection Resp Effort & Inspection: normal respiratory effort Auscultation: clear to auscultation bilaterally, no rales, no rhonchi and no wheezes Cardio Jugular venous distension: no JVD Rate: regular rate Rhythm: regular rhythm Heart sounds: S1 normal heart sound present, S2 normal heart sound present, no murmurs and no rubs Neuro General: patient oriented x3 Extrem General: Yes normal to inspection, No no pedal edema and No calf tenderness Psych Appearance: grossly normal Mental Status: mental status grossly normal Speech and movement: Normal speech and movement present Office Procedures EKG Details: Today, read by me, normal sinus rhythm, rate 74, QTC 439 milliseconds [id number], Complete Assessment & Plan Assessment & Plan (1) SOB (shortness of breath) on exertion: Code(s): R06.02 - Shortness of breath Category: Medical Plan: History of shortness of breath with exertion. She has known COPD and asthma and follows with pulmonology. She underwent an echocardiogram on 05/08/2021 showing normal EF, grade 1 diastolic dysfunction, mild MR. She did a nuclear stress test done 06/06/2021 which showed possible ischemia in the circumflex/diagonal territory, EF 69%. She then underwent a CTA of the coronary arteries on 09/13/2021 showing no coronary calcifications, left main patent, lad proximal patent, mid LAD bridging, distal LAD not well seen, left circumflex proximal patent, mid probably patent, distal not well seen, RCA probably patent. She has no reports of chest discomfort. Her breathing is currently stable. She is morbidly obese and admits to being sedentary. She has a history of obstructive sleep apnea and reports use of CPAP at night. Her shortness of breath does not seem to be a cardiac symptom and could be multifactorial due her weight, deconditioning also COPD history. Signs and symptoms of angina reviewed with her. If she does have worsening of her breathing or any anginal sounding chest discomfort than diagnostic cardiac catheterization will be considered. She has multiple cardiac risk factors and needs ongoing risk factor modification. Continue aspirin, rosuvastatin, propranolol, valsartan. We will continue to follow along. Cardiology follow-up 6 months, sooner if needed. Emergency care if ever needed for symptoms. (2) Abnormal nuclear cardiac imaging test: Code(s): R93.1 - Abnormal findings on diagnostic imaging of heart and coronary circulation Category: Medical Plan: As above (3) HTN (hypertension): Code(s): I10 - Essential (primary) hypertension Category: Medical Qualifiers: Hypertension type: essential hypertension Qualified Code(s): I10 - Essential (primary) hypertension Plan: Low normal today. Continue current valsartan, propranolol and Lasix. Labs done 06/15/2023 showed potassium 3.8, creatinine 0.7 (4) Dyslipidemia: Code(s): E78.5 - Hyperlipidemia, unspecified Category: Medical Plan: [place] LDL goal less than 70 and patient with diabetes. Labs done 12/12/2022 showed LDL 31, labs done 06/15/2023 showed normal LFT. Continue rosuvastatin. (5) Obesity due to excess calories: Code(s): E66.09 - Other obesity due to excess calories Category: Medical Qualifiers: Body mass index: BMI 45.0-49.9 Obesity classification: adult class 3 (BMI >= 40) Serious obesity comorbidity presence: with serious comorbidity Qualified Code(s): E66.01 - Morbid (severe) obesity due to excess calories; Z68.42 - Body mass index [BMI] 45.0-49.9, adult Plan: Patient would benefit from weight loss, consider bariatric program referral. Plan Time spent on chart review, documentation, interview and assessment Coding Level of Care Code Est Pt Level 4 (46053) Diagnoses SOB (shortness of breath) on exertion R06.02 Abnormal nuclear cardiac imaging test R93.1 Essential hypertension I10 Hypertension type: essential hypertension Dyslipidemia E78.5 Class 3 severe obesity due to excess calories with serious comorbidity and body mass index (BMI) of 45.0 to 49.9 in adult E66.01; Z68.42 Body mass index: BMI 45.0-49.9 Obesity classification: adult class 3 (BMI >= 40) Serious obesity comorbidity presence: with serious comorbidity CPT Codes EKG - CPT: [id number], Complete ([id number]) Time Spent (min) 30
== END 2023-06-26 10:17 | disposition home or self-care (01) ==
PROVIDERS: PCP Family Medicine; Visit Provider Nurse Practitioner Family
DX: R06.02 Shortness of breath (principal); R93.1 Abnormal findings on diagnostic imaging of heart and coronary circulation; I10 Essential (primary) hypertension; E78.5 Hyperlipidemia, unspecified; E66.01 Morbid (severe) obesity due to excess calories; Z68.42 Body mass index [BMI] 45.0-49.9, adult
CPT/HCPCS: 93010; 99214

== ENCOUNTER → 2023-06-26 09:16 | Outpatient (BNVA) | payer MEDICAID, SELFPAY | PROVIDERS: PCP Family Medicine; Visit Provider Nurse Practitioner Family | DX: R06.02 Shortness of breath (principal); R93.1 Abnormal findings on diagnostic imaging of heart and coronary circulation; I10 Essential (primary) hypertension; G47.33 Obstructive sleep apnea (adult) (pediatric); E78.5 Hyperlipidemia, unspecified; J44.9 Chronic obstructive pulmonary disease, unspecified; E66.01 Morbid (severe) obesity due to excess calories; Z68.41 Body mass index [BMI] 40.0-44.9, adult; Z79.899 Other long term (current) drug therapy | CPT/HCPCS: 93005; 99212 ==

== ENCOUNTER 2023-07-10 08:38 | Outpatient (AMB) | payer MEDICAID, SELFPAY ==
--- NOTE | 2023-07-10 08:53 | A.OFFVIS_ITS ---
Vital Signs 07/10/23 09:00 Height 5 ft 4 in Weight 236 lb BMI 40.5 Intake Visit Reasons: O/V B/L durolane injection Intake Note: Candace a 57 year old female who presents today for bilateral knee Durolane injections. Allergies No Known Allergies [No Known Allergies*] Allergy (Verified 07/10/23 09:00) HPI HPI O/V B/L durolane injection : Details: 57-year-old female who returns to the office today for bilateral knee Durolane injection. 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 Gastroparesis 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, uncontrolled Anemia Hemorrhoids Migraine Asthma Patellofemoral arthritis Patella-femoral syndrome Lumbar spondylosis Fibromyalgia Tubular adenoma Family history of colon cancer Vitamin D deficiency Dyslipidemia Genu valgum Low back pain Palpitations Chest pain HTN (hypertension) Surgical History Status post hemorrhoidectomy History of hemorrhoidectomy (~09/09/22) History of surgery Hx of section H/O esophagogastroduodenoscopy History of colonoscopy History of arthroscopy of right knee History of bilateral carpal tunnel release History of bladder surgery History of tubal ligation Hx of tonsillectomy Family History Father Stomach cancer Mother Heart disease HTN (hypertension) Diabetes Son No problems noted. 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 Tenderness along the medial and lateral joint line. Full ROM with crepitus. Negative Mami?s. No ligamentous laxity. NVI. Office Procedures Joint Injection/Drain Joint Injection/Drain Details: bilat durolane Primary Site: right knee Secondary Site: left knee Prep: site was prepped using aseptic technique, ethochloride spray was applied and injection warnings given Injected: in the joint Approach Used: anterolateral Procedure: The patient tolerated the procedure well Coding 37385 - Glenohumeral/Tronchanteric Bursa/Intraarticular Procedure code (CPT) selection complete Assessment & Plan Assessment & Plan (1) Osteoarthritis of knees, bilateral: Code(s): M17.0 - Bilateral primary osteoarthritis of knee Category: Medical Qualifiers: Osteoarthritis type: primary Qualified Code(s): M17.0 - Bilateral primary osteoarthritis of knee Plan We discussed options today which include Durolane injection. They did consent to move forward with the bilateral knee Durolane injection, which was tolerated well. I recommended rest, ice and elevation and OTC anti-inflammatories PRN for discomfort. If symptoms persist or worsens over the next 6-8 weeks, patient will contact the office, otherwise follow-up as needed. Patient Instructions: Scribed for Rahul Loredo PA-C, by Missael Mchugh electromedical service engineer, on 07/10/2023 at 9:15 AM EST. IRahul PA-C, have personally reviewed and agree with the information entered by the scribe. Coding Level of Care Code Procedure Only Diagnoses Primary osteoarthritis of both knees M17.0 Osteoarthritis type: primary CPT Codes Coding - Joint 7: 83618 - Glenohumeral/Tronchanteric Bursa/Intraarticular ([id number])
[2023-07-10 09:00] VITALS: BMI 40.5
== END 2023-07-10 11:02 | disposition home or self-care (01) ==
PROVIDERS: PCP Family Medicine; Visit Provider Physician Assistant
DX: M17.0 Bilateral primary osteoarthritis of knee (principal)
CPT/HCPCS: 20610

== ENCOUNTER → 2023-07-10 08:38 | Outpatient (BNVA) | payer MEDICAID, SELFPAY | PROVIDERS: PCP Family Medicine; Visit Provider Physician Assistant | DX: M17.0 Bilateral primary osteoarthritis of knee (principal) | CPT/HCPCS: 20610; J7318 ==

== ENCOUNTER 2023-07-14 08:44 | Outpatient (AMB) | payer MEDICAID, SELFPAY ==
--- NOTE | 2023-07-14 09:10 | A.OFFVIS_ITS ---
Intake Intake Visit Reasons: DM Wad Impregnator Required: Yes Wad Impregnator Language: Briquette Molder Name: Amira [facility] [place] Information Interpreted: non-clinical & clinical Accompanied by: Self / Same As Patient Allergies No Known Allergies [No Known Allergies*] Allergy (Verified 07/10/23 09:00) HPI Comprehensive Diabetes Asmnt Most Recent Diabetes Results: Hemoglobin A1c 7.5 % 09/23/18 Microalb/Creat Ratio 14.4 ug/mg cr (<30) 01/12/23 Cholesterol 91 mg/dL (<200) 12/12/22 HDL Cholesterol 38 mg/dL (>40) L 12/12/22 Triglycerides 112 mg/dL (<150) 12/12/22 Creatinine 0.70 mg/dL (0.5-1.4) 06/15/23 Blood Urea Nitrogen 15 mg/dL (9-16) 06/15/23 Sodium 142 mmol/L (135-145) 06/15/23 Potassium 3.8 mmol/L (3.3-5.1) 06/15/23 Chloride 106 mmol/L (96-108) 06/15/23 Carbon Dioxide 25 mmol/L (22-29) 06/15/23 Calcium 9.2 mg/dL (8.4-10.2) 06/15/23 AST 9 U/L (5-31) 06/15/23 ALT 9 U/L (0-31) 06/15/23 Total Protein 7.1 g/dL (6.5-8.0) 06/15/23 Albumin 3.9 g/dL (3.5-5.0) 06/15/23 [facility], [facility] Medical History Coarse tremors Bleeding hemorrhoids Hyperlipidemia Dental crowns present Bilateral pneumonia Respiratory failure Hypothyroidism Paranoia (psychosis) Stress incontinence Insomnia Anxiety Obstructive sleep apnea on CPAP Scoliosis of thoracolumbar spine Morbid obesity Chronic pain syndrome Sacroiliitis Inappropriate sinus tachycardia GERD (gastroesophageal reflux disease) 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 due 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 Gastroparesis 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, uncontrolled Anemia Hemorrhoids Migraine Asthma Patellofemoral arthritis Patella-femoral syndrome Lumbar spondylosis Fibromyalgia Tubular adenoma Family history of colon cancer Vitamin D deficiency Dyslipidemia Genu valgum Low back pain Palpitations Chest pain HTN (hypertension) Surgical History Status post hemorrhoidectomy History of hemorrhoidectomy (~09/09/22) History of surgery Hx of section H/O esophagogastroduodenoscopy History of colonoscopy History of arthroscopy of right knee History of bilateral carpal tunnel release History of bladder surgery History of tubal ligation Hx of tonsillectomy Family History Father Stomach cancer Mother Heart disease HTN (hypertension) Diabetes Son No problems noted. Paternal Aunt Stomach cancer Sister Stomach cancer Sister Uterine cancer Social History Household Members: Family Household Members Other:: adult son Housing: Apartment Are you a primary property caretaker to a significant other at home: No Do you presently have visiting nurse or other home services: Yes (LEAD MINER BLASTING daily) Alcohol intake: current Alcohol intake frequency: does not drink Patient Tobacco Use Status: Never used Tobacco Second Hand Smoke Exposure: No service: No Current occupational status: disabled Current occupation: lt handed Sexual orientation: Straight/Heterosexual Gender identity: Female Female Reproductive History Menstrual Age of Menarche: 17 Assessment & Plan Assessment & Plan (1) Diabetic nephropathy associated with type 2 diabetes mellitus: Code(s): E11.21 - Type 2 diabetes mellitus with diabetic nephropathy Plan: Personal Continuous Glucose Monitor: Patients CGM information reviewed Reviewed patient's sensor data: 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: ? 0% Hyperglycemia:? 36% Time in Range:? 64% Average glucose for the last 2 weeks? 165 mg/dL Patient reports she is started Mounjaro 2.5 mg weekly She is currently taking Humulin U 500 65 units b.i.d. Average glucose has improved since last visit on 06/04/2023 from 263 mg/dL to 165 mg/dL Patient's last A1c 9.2% on 06/04/2023 Recommended to patient we increase Mounjaro to 5 mg weekly, when she starts Mounjaro 5 mg weekly she should decrease Humulin U 500-60 units b.i.d. If she is experiencing hypoglycemia she needs to contact staff educator for further adjustment Humulin U 500 Reviewed how to interpret trend arrows Reminded patient that to check finger sticks if symptoms do not match sensor reading. Discussed lag time between finger stick and sensor data.? Patient able to insert sensor independently at home without issue.? Patient will follow-up with staff educator in 6 weeks Coding Level of Care Code Est Pt Level 1 (75585) Diagnoses Diabetic nephropathy associated with type 2 diabetes mellitus E11.21
== END 2023-07-14 09:11 | disposition home or self-care (01) ==
PROVIDERS: PCP Family Medicine; Visit Provider Registered Nurse Diabetes Educator
DX: E11.21 Type 2 diabetes mellitus with diabetic nephropathy (principal)

== ENCOUNTER → 2023-07-14 08:44 | Outpatient (BNVA) | payer MEDICAID, SELFPAY | PROVIDERS: PCP Family Medicine; Visit Provider Registered Nurse Diabetes Educator | DX: E11.21 Type 2 diabetes mellitus with diabetic nephropathy (principal) | CPT/HCPCS: 99211 ==

== ENCOUNTER 2023-07-21 08:25 | Outpatient (REF) | payer MEDICAID, SELFPAY ==
[2023-07-21 08:49] LABS: MANUAL DIFF FLAG NO
[2023-07-21 09:08] LABS: Basophils Percent Auto 0.4 % (0-2); Eosinophils Absolute Auto 0.2 X10*3/uL (0.0-0.4); Eosinophils Percent Auto 1.6 % (0-4); Hematocrit 37.4 % (37.0-47.0); Hemoglobin 11.2 g/dl (12.0-16.0); Imm Gran Abs Auto 0.03 X10*3/uL (0.00-0.03); Imm Gran Pct Auto 0.3 % (0.0-0.4); Lymphocytes Absolute Auto 4.3 X10*3/uL (1.2-4.9); Lymphocytes Percent Auto 40.6 % (20-40); Mean Corpuscular HGB Conc 29.9 g/dl (31.0-35.0); Mean Corpuscular Volume 90.1 fL (80.0-98.0); Mean Platelet Volume 9.9 fL (9.4-12.3); Monocytes Absolute Auto 0.6 X10*3/uL (0.1-1.2); Monocytes Percent Auto 5.6 % (2-11); Neutrophils Absolute Auto 5.4 x10*3/uL (2.0-8.3); Neutrophils Percent Auto 51.5 % (45-73); Platelet Count 290 X10*3/uL (160-400); Red Blood Count 4.15 X10*6/uL (4.20-5.50); Red Cell Distribution Width 15.2 % (11.0-16.0); White Blood Count 10.5 X10*3/uL (4.8-10.8)
[2023-07-21 09:16] LABS: Estimated Average Glucose 183 mg/dL
[2023-07-21 09:44] LABS: Alanine Aminotransferase 9 U/L (0-31); Albumin Level 3.8 g/dL (3.5-5.0); Alkaline Phosphatase 132 U/L (39-117); Anion Gap 15 (12-20); Aspartate Amino Transferase 14 U/L (5-31); Bilirubin Total 0.3 mg/dL (0.0-1.0); Blood Urea Nitrogen 10 mg/dL (9-16); Calcium 9.7 mg/dL (8.4-10.2); Carbon Dioxide 31 mmol/L (22-29); Chloride 102 mmol/L (96-108); Estimated Glomerular Filt Rate > 60; Glucose Random 221 mg/dL (60-115); Potassium 3.9 mmol/L (3.3-5.1); Sodium 144 mmol/L (135-145); Total Protein 7.3 g/dL (6.5-8.0)
[2023-07-21 10:28] LABS: HBS Num1 146.08 mIU/mL (0-7.99); HBc Num1 0.16 S/CO (0.00-0.79); HBsAGNum1 0.27 S/CO (0.00-0.99); Hepatitis A Antibody IgM 0.27 Index (0-0.79); Hepatitis B Core Antibody Nonreactive (Nonreactive); Hepatitis B Surface Antigen Negative (Negative); ~HepC Num1 0.23 S/CO (0.00-0.79); ~Hepatitis A Antibody IgM Nonreactive (Nonreactive); ~Hepatitis B Surface Antibody REACTIVE (Nonreactive); ~Hepatitis C Antibody Nonreactive (Nonreactive)
[2023-07-22 18:13] LABS: Alpha Fetoprotein 1.4 ng/mL
[2023-07-23 16:14] LABS: Anti Nuclear Antibody Screen NEGATIVE (NEGATIVE)
== END 2023-07-21 08:26 | disposition home or self-care (01) ==
LOC: HO.LAB 08:25
PROVIDERS: PCP Family Medicine; Visit Provider Physician Assistant
DX: K58.9 Irritable bowel syndrome, unspecified (principal); K52.9 Noninfective gastroenteritis and colitis, unspecified; K74.60 Unspecified cirrhosis of liver; E11.65 Type 2 diabetes mellitus with hyperglycemia; K76.0 Fatty (change of) liver, not elsewhere classified; Z86.010 Personal history of colon polyps
CPT/HCPCS: 36415; 80053; 82105; 83036; 85025; 86038; 86704; 86706; 86709; 86803; 87340

== ENCOUNTER → 2023-07-29 09:46 | Outpatient (BNVA) | payer MEDICAID, SELFPAY | PROVIDERS: PCP Family Medicine; Visit Provider Physician Assistant ==

== ENCOUNTER 2023-08-25 09:43 | Outpatient (AMB) | payer MEDICAID, SELFPAY ==
[2023-08-25 10:13] VITALS: BP 130/77; PULSE 84; O2SAT 95; BMI 42.2
--- NOTE | 2023-08-25 10:13 | MHC.OFFVIS ---
Vital Signs 08/25/23 10:13 Height 5 ft 4 in Weight 246 lb BMI 42.2 BP 130/77 Blood Pressure Location Rt brachial Position Sitting Pulse 84 Pulse Source Doppler Pulse Oximetry (%) 95 Oxygen Delivery Method Room Air Intake Visit Reasons: Asthma Allergies No Known Allergies [No Known Allergies*] Allergy (Verified 07/29/23 09:53) HPI HPI Asthma: Details: 58-year-old lady, nonsmoker, with underlying DINA on CPAP managed by her primary care provider, followed for restrictive ventilatory defect and asthma.? After the last office visit patient is PCP changed her AirDuo to Arnuity and she continued on Spiriva and albuterol MDI with good control of her symptoms. Patient states that she is suboptimally compliant with her CPAP. She denies any recent exacerbations. 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 Gastroparesis 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, uncontrolled Anemia Hemorrhoids Migraine Asthma Patellofemoral arthritis Patella-femoral syndrome Lumbar spondylosis Fibromyalgia Tubular adenoma Family history of colon cancer Vitamin D deficiency Dyslipidemia Genu valgum Low back pain Palpitations Chest pain HTN (hypertension) Surgical History Status post hemorrhoidectomy History of hemorrhoidectomy (~09/09/22) History of surgery Hx of section H/O esophagogastroduodenoscopy History of colonoscopy History of arthroscopy of right knee History of bilateral carpal tunnel release History of bladder surgery History of tubal ligation Hx of tonsillectomy Family History Father Stomach cancer Mother Heart disease HTN (hypertension) Diabetes Son No problems noted. Paternal Aunt Stomach cancer Sister Stomach cancer Sister Uterine cancer Social History Household Members: Family Household Members Other:: adult son Housing: Apartment Are you a primary day care attendant to a significant other at home: No Do you presently have visiting nurse or other home services: Yes (DIRECTOR CHECK daily) Alcohol intake: current Alcohol intake frequency: does not drink Patient Tobacco Use Status: Never used Tobacco Second Hand Smoke Exposure: No service: No Current occupational status: disabled Current occupation: lt handed Sexual orientation: Straight/Heterosexual Gender identity: Female Female Reproductive History Menstrual Age of Menarche: 17 Review of Systems Const Denies daytime sleepiness, Denies excessive sweating, Denies fatigue, Denies fever(s), Denies lethargy, Denies malaise, Denies night sweats, Denies snoring and Denies weight loss Eyes Denies blurry vision and Denies itchy eyes ENT Denies nasal congestion, Denies post nasal drip, Denies sinus pain, Denies sinus pressure and Denies other ( Thrush) Card Denies chest pain, Denies pedal edema, Denies dyspnea, Denies orthopnea and Denies paroxysmal nocturnal dyspnea Resp Denies cough, Denies hemoptysis, Denies excessive phlegm production, Denies dyspnea, Denies snoring and Denies wheezing GI Denies abdominal pain and Denies heartburn Musc Denies myalgias, Denies arthralgias and Denies joint swelling Skin/Breast Denies rash Neuro Denies memory loss and Denies seizure-like activity Psych Denies abnormal sleep pattern, Denies anxiety and Denies memory loss Endo Denies excessive sweating, Denies fatigue and Denies heat intolerance Ray/Lymph Denies easy bruising Aller/Immun Denies itchy eyes, Denies seasonal rhinorrhea and Denies wheezing Physical Exam Vital Signs: Last Vital Signs Pulse 84 08/25/23 10:13 BP 130/77 08/25/23 10:13 Pulse Ox 95 08/25/23 10:13 Oxygen Delivery Method Room Air 08/25/23 10:13 BMI result Body Mass Index 42.2 Const General: no acute distress and alert Nutritional Appearance: obese Orientation/consciousness: Other orientation findings ( oriented) HEENT Head: Yes atraumatic Eyes General: appearance normal, both eyes and all related structures Sclerae: sclerae normal EOM: EOMs intact bilaterally Neck Neck: Yes supple Lymphatic: no lymphadenopathy noted Resp Effort & Inspection: normal respiratory effort and no use of accessory muscles Auscultation: clear to auscultation bilaterally Cardio Rate: regular rate Rhythm: regular rhythm Heart sounds: no gallops, no murmurs and no rubs Skin General skin exam: other ( warm) Extrem General: No clubbing, No cyanosis and No edema Assessment & Plan Assessment & Plan (1) DINA on CPAP: Code(s): G47.33 - Obstructive sleep apnea (adult) (pediatric); Z99.89 - Dependence on other enabling machines and devices Category: Medical Plan: Patient is suboptimally compliant with her CPAP therapy. Patient was encouraged to be more compliant with her CPAP therapy. (2) Asthma: Code(s): J45.909 - Unspecified asthma, uncomplicated Category: Medical Plan: Well controlled on current regimen of Arnuity, Spiriva, and albuterol MDI. Continue current regimen. (3) Morbid obesity: Code(s): E66.01 - Morbid (severe) obesity due to excess calories Category: Medical Plan: Patient has been advised lifestyle modifications and availability of weight management service. (4) Restrictive lung disease: Code(s): J98.4 - Other disorders of lung Category: Medical Plan: Secondary to underlying obesity and scoliosis. Continue to monitor clinically. Medications: Discontinued fluticasone propion-salmeterol 232-14 mcg/actuation (AirDuo RespiClick) Discontinued Reason: Doctor's Order 1 inh inhalation BID 30 days 1 ea 6RF Coding Level of Care Code Est Pt Level 4 (11762) Diagnoses DINA on CPAP G47.33; Z99.89 Asthma J45.909 Morbid obesity E66.01 Restrictive lung disease J98.4
== END 2023-08-25 10:29 | disposition home or self-care (01) ==
PROVIDERS: PCP Family Medicine; Referring Provider Family Medicine; Visit Provider Internal Medicine Pulmonary Disease
DX: G47.33 Obstructive sleep apnea (adult) (pediatric) (principal); Z99.89 Dependence on other enabling machines and devices; J45.909 Unspecified asthma, uncomplicated; E66.01 Morbid (severe) obesity due to excess calories; J98.4 Other disorders of lung
CPT/HCPCS: 99214

== ENCOUNTER → 2023-08-25 09:43 | Outpatient (BNVA) | payer MEDICAID, SELFPAY | PROVIDERS: PCP Family Medicine; Visit Provider Internal Medicine Pulmonary Disease | DX: J45.909 Unspecified asthma, uncomplicated (principal); J98.4 Other disorders of lung; G47.33 Obstructive sleep apnea (adult) (pediatric); E66.01 Morbid (severe) obesity due to excess calories; Z68.41 Body mass index [BMI] 40.0-44.9, adult; Z99.89 Dependence on other enabling machines and devices | CPT/HCPCS: 99212 ==

== ENCOUNTER 2023-08-26 08:51 | Outpatient (REF) | payer MEDICAID, SELFPAY | END 2023-08-26 08:52 | disposition home or self-care (01) | LOC: HO.MAMMO 08:51 | PROVIDERS: PCP Family Medicine; Visit Provider Family Medicine | DX: Z12.31 Encounter for screening mammogram for malignant neoplasm of breast (principal) | CPT/HCPCS: 77063; 77067 ==

== ENCOUNTER → 2023-08-26 09:30 | Outpatient (BNV) | payer MEDICAID, SELFPAY | PROVIDERS: PCP Family Medicine; Visit Provider Radiology Diagnostic Radiology | DX: Z12.31 Encounter for screening mammogram for malignant neoplasm of breast (principal) | CPT/HCPCS: 77063; 77067 ==

== ENCOUNTER 2023-09-13 17:24 | Emergency (ER) | payer MEDICAID, SELFPAY ==
--- NOTE | ~2023-09-13 | XR_ITS ---
EXAMINATION: XR CHEST CLINICAL INFORMATION: Pneumonia, cough, fever COMPARISON: 06/15/2023 TECHNIQUE: Frontal view of the chest was obtained. FINDINGS: Cardiomediastinal silhouette is stable. There is patchy consolidation in the right lower lung field. Some streaky opacities in the left lung base. No large effusion or pneumothorax. XR/XR chest 1V IMPRESSION: Patchy consolidation in the right lower lung field concerning for pneumonia in the right clinical setting.
[2023-09-13 17:52] VITALS: BP 109/79; PULSE 100; RESP 20; TEMP 38.2; O2SAT 93; BMI 42.0
--- NOTE | 2023-09-13 17:57 | ED.GENADULT ---
HPI - General Adult General Chief complaint: Upper Respiratory Symptoms Stated complaint: difficulty breathing/fever earlier Time Seen by Provider: 09/13/23 18:07 Source: patient Mode of arrival: ambulatory Limitations: no limitations History of Present Illness ED Provider: alise BRAGG narrative: Patient's history of anxiety, depression increased stressed out with poor sleep as her brother last week comes here for subjective fever body aches subjective shortness of breath dry cough since yesterday does have history of asthma use inhaler without much relief saturating 93% at room air temperature of 100.7 degrees Related Data Home Medications ?Medication ?Instructions ?Recorded ?Confirmed clonidine HCl 0.1 mg tablet 0.1 mg PO BEDTIME PRN Anxiety 11/30/19 06/26/23 ferrous sulfate 325 mg (65 mg 325 mg PO Q OTHER DAY 11/30/19 06/26/23 iron) tablet rosuvastatin 20 mg tablet (Crestor) 20 mg PO BEDTIME 11/30/19 06/26/23 thiamine HCl (vitamin B1) 100 mg 100 mg PO DAILY 11/30/19 06/26/23 tablet aspirin 81 mg tablet,delayed 81 mg PO DAILY 01/01/21 06/26/23 release cyanocobalamin (vitamin B-12) 1,000 mcg IM [id number] 01/01/21 06/26/23 1,000 mcg/mL injection solution clonazepam 1 mg tablet 1 mg PO TID PRN Anxiety 05/07/21 06/26/23 omeprazole 20 mg capsule,delayed 20 mg PO DAILY@0630 05/07/21 06/26/23 release valsartan 160 mg tablet 160 mg PO DAILY 05/07/21 06/26/23 cholecalciferol (vitamin D3) 50 50 mcg PO DAILY 07/12/21 06/26/23 mcg (2,000 unit) capsule docusate sodium 100 mg capsule 100 mg PO BID 09/26/21 06/26/23 levothyroxine 125 mcg tablet 1 tab PO DAILY@0600 10/23/21 06/26/23 nortriptyline 50 mg capsule 1 cap PO BEDTIME 10/23/21 06/26/23 albuterol sulfate 2.5 mg/3 mL 2.5 mg inhalation Q4H PRN Wheezing 12/04/21 06/26/23 (0.083 %) solution for nebulization aripiprazole 2 mg tablet 2 mg PO DAILY 09/13/22 06/26/23 oxybutynin chloride 10 mg 10 mg PO DAILY 09/13/22 06/26/23 tablet,extended release 24 hr fluticasone furoate 200 1 inh inhalation DAILY 08/25/23 mcg/actuation blister powder for inhalation (Arnuity Ellipta) Previous Rx's ?Medication ?Instructions ?Recorded TRUEplus Lancets 33 gauge (lancets) #120 ea 12/13/21 metformin 500 mg tablet 1,000 mg (2 x 500 mg) PO BID 90 05/20/22 days #360 tabs flash glucose scanning reader #1 ea 06/05/22 (FreeStyle Ortiz 2 [place]) blood-glucose meter (FreeStyle #1 ea 07/17/22 Lite Meter kit) ibuprofen 600 mg tablet 600 mg PO Q6H PRN pain #30 tabs 09/09/22 psyllium seed (sugar) oral powder 1 tbsp PO BID #1,254 grams 10/13/22 (Metamucil (sugar) oral powder) pen needle, diabetic 32 gauge x #100 ea 03/26/23 (Pentips) prednisone 20 mg tablet 60 mg (3 x 20 mg) PO DAILY #12 tabs 05/06/23 nystatin 100,000 unit/mL oral 500,000 unit (5 mL) PO TID 7 days 05/18/23 suspension #105 mL blood sugar diagnostic (FreeStyle #150 ea 06/02/23 Lite Strips) insulin regular hum U-500 conc 500 60 unit (0.12 mL) subcut .twice a 06/02/23 unit/mL(3 mL) subcut pen (Hum day #6 mL R U-500 (Conc) Insulin Kwikpen) azithromycin 250 mg tablet See Rx Instructions PO .COMPLEX #6 06/15/23 tabs flash glucose sensor (FreeStyle #2 kits 06/16/23 Ortiz 2 Sensor kit) propranolol 80 mg tablet 80 mg PO BID #180 tabs 06/22/23 glucagon 3 mg/actuation nasal 3 mg intranasal ONCE #4 ea 07/06/23 spray (Baqsimi) tirzepatide 5 mg/0.5 mL 5 mg (0.5 mL) subcut QWEEK #2 mL 07/14/23 subcutaneous pen injector (Jeronimo) furosemide 20 mg tablet 20 mg PO .daily #30 tabs 07/20/23 gabapentin 400 mg capsule 400 mg PO TID #90 caps 08/13/23 tiotropium bromide 2.5 2 puff inhalation DAILY 30 days #4 08/13/23 mcg/actuation mist for inhalation grams (Spiriva Respimat) amoxicillin 875 mg-potassium 1 tab PO BID #20 tabs 09/13/23 clavulanate 125 mg tablet benzonatate 200 mg capsule 200 mg PO TID PRN cough #30 caps 09/13/23 doxycycline hyclate 100 mg tablet 100 mg PO BID #20 tabs 09/13/23 Allergies Allergy/AdvReac Type Severity Reaction Status Date / Time No Known Allergies Allergy Verified 09/13/23 17:53 [No Known Allergies*] Review of Systems Review of Systems: Yes all other systems are reviewed and are negative [facility] Past Medical History Medical History Coarse tremors Bleeding hemorrhoids Hyperlipidemia Dental crowns present Bilateral pneumonia Respiratory failure Hypothyroidism Paranoia (psychosis) Stress incontinence Insomnia Anxiety Obstructive sleep apnea on CPAP Scoliosis of thoracolumbar spine Morbid obesity Chronic pain syndrome Sacroiliitis Inappropriate sinus tachycardia GERD (gastroesophageal reflux disease) 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 due to insulin USP (current) use of insulin Gastroparesis 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, uncontrolled Anemia Hemorrhoids Migraine Asthma Patellofemoral arthritis Patella-femoral syndrome Lumbar spondylosis Fibromyalgia Tubular adenoma Family history of colon cancer Vitamin D deficiency Dyslipidemia Genu valgum Low back pain Palpitations Chest pain HTN (hypertension) Surgical History Status post hemorrhoidectomy History of hemorrhoidectomy (~09/09/22) History of surgery Hx of section H/O esophagogastroduodenoscopy History of colonoscopy History of arthroscopy of right knee History of bilateral carpal tunnel release History of bladder surgery History of tubal ligation Hx of tonsillectomy Family History Family History Father Stomach cancer Mother Heart disease HTN (hypertension) Diabetes Son No problems noted. Paternal Aunt Stomach cancer Sister Stomach cancer Sister Uterine cancer Social History Social History Household Members: Family Household Members Other:: adult son Housing: Apartment Are you a primary residential care facility manager to a significant other at home: No Do you presently have visiting nurse or other home services: Yes ([employer] daily) Alcohol intake: current Alcohol intake frequency: does not drink Patient Tobacco Use Status: Never used Tobacco Second Hand Smoke Exposure: No Advance Directives: No Advance Directives Information Provided: No service: No Current occupational status: disabled Current occupation: lt handed Sexual orientation: Straight/Heterosexual Gender identity: Female Physical Exam ED Vital Signs: Vital Signs - 24 hr 09/13/23 17:52 09/13/23 18:49 09/13/23 20:23 Temperature 100.7 F H 102.5 F H Pulse Rate 100 98 Respiratory Rate 20 28 H Blood Pressure 109/79 Pulse Oximetry 93 Oxygen Delivery Method Room Air 09/13/23 20:32 Temperature 99.1 F Pulse Rate 92 Respiratory Rate 42 H Blood Pressure 143/65 H Pulse Oximetry 94 Oxygen Delivery Method Room Air BMI result Body Mass Index 42.0 Appearance: Alert. Oriented X3. No acute distress. Anxious Eyes: PERRLA, No Nystagmus ENT: Pharynx normal. Oral Mucosa moist Neck: Normal inspection. Neck supple. CVS: Normal heart rate and rhythm. Pulses normal. Respiratory: No respiratory distress. Equal air entry bilateral, no wheezing/rales/rhonchi Abdomen: Soft and nontender. Bowel sounds are present, no mass palpable, no CVA tenderness Skin: Skin warm and dry. Normal skin color. Normal skin turgor. Extremities: No lower extremity edema. No calf tenderness Neuro: Oriented X 3. No motor deficit. No sensory deficit.No cerebellar signs , cranial nerves II-XII intact resting tremor+ Course Course Course Narrative: RME: 58-year-old female with pmh of history of asthma and pneumonia presents ED for shortness of breath cough and fever. Patient has hypoxia O2 saturation 92% in his febrile. Patient brought back to the ED immediately Medications Administered Discontinued Medications Generic Name Dose Route Start Last Admin Trade Name Freq PRN Reason Stop Dose Admin Acetaminophen 650 mg 09/13/23 18:50 09/13/23 19:05 Acetaminophen 325 Mg Tablet PO 09/13/23 18:51 650 mg ONCE ONE Administration Albuterol Sulfate 2.5 mg/ 0 mg 09/13/23 20:01 09/13/23 20:20 Albuterol/Ipratropium 3 ml INHALE 09/13/23 20:02 1 dose ONCE ONE Administration Doxycycline Monohydrate 100 mg 09/13/23 19:58 09/13/23 20:09 Doxycycline Monohydrate 100 Mg Capsule PO 09/13/23 19:59 100 mg ONCE ONE Administration Ceftriaxone Sodium 1 gm/ 50 mls @ 100 mls/hr 09/13/23 19:13 09/13/23 19:19 Sodium Chloride IV 09/13/23 19:42 100 mls/hr ONCE ONE Administration Sodium Chloride 1,000 mls @ 999 mls/hr 09/13/23 19:13 09/13/23 19:20 Ns IV 09/13/23 20:13 999 mls/hr .Q1H1M ONE Administration Ibuprofen 600 mg 09/13/23 19:14 09/13/23 19:19 Ibuprofen 600 Mg Tablet PO 09/13/23 19:15 600 mg ONCE ONE Administration Ketorolac Tromethamine 30 mg 09/13/23 20:01 09/13/23 20:09 Ketorolac Tromethamine 30 Mg/Ml Vial IVPUSH 09/13/23 20:02 30 mg ONCE ONE Administration Lorazepam 1 mg 09/13/23 18:17 09/13/23 19:05 Lorazepam 1 Mg Tablet PO 09/13/23 18:18 1 mg ONCE ONE Administration Medical Decision Making Medical Decision Making MDM Narrative: Patient's right lower lobe pneumonia with fever normal WBC count etiology not clear likely atypical bacteria/viral will prescribe Augmentin and doxycycline patient received dose of Rocephin in the ER Differential Diagnosis Differential Diagnoses: The differential diagnosis associated with the presentation includes Bronchitis/pneumonia/viral syndrome Lab Data [facility] Lab Attestation statement: I reviewed the patient's lab results. 09/13/23 18:44 09/13/23 18:44 Labs: Lab Results 09/13/23 Range/Units 18:44 WBC 8.5 (4.8-10.8) X10*3/uL RBC 4.43 (4.20-5.50) X10*6/uL Hgb 11.8 L (12.0-16.0) g/dl Hct 37.8 (37.0-47.0) % MCV 85.3 (80.0-98.0) fL MCH 26.6 L (27.0-33.0) pg MCHC 31.2 (31.0-35.0) g/dl RDW 14.6 (11.0-16.0) % Plt Count 233 (160-400) X10*3/uL MPV 10.1 (9.4-12.3) fL Immature Gran % (Auto) 0.4 (0.0-0.4) % Neut % (Auto) 68.5 (45-73) % Lymph % (Auto) 23.0 (20-40) % [place] % (Auto) 7.2 (2-11) % Eos % (Auto) 0.7 (0-4) % Baso % (Auto) 0.2 (0-2) % Lymph # (Auto) 2.0 (1.2-4.9) X10*3/uL [place] # (Auto) 0.6 (0.1-1.2) X10*3/uL Eos # (Auto) 0.1 (0.0-0.4) X10*3/uL Baso # (Auto) 0.0 (0.0-0.2) X10*3/uL Abs Immat Gran (auto) 0.03 (0.00-0.03) X10*3/uL Absolute Neuts (auto) 5.8 (2.0-8.3) x10*3/uL Absolute Nucleated RBC 0.000 (0.0-0.012) X10*3/uL Nucleated RBC % (auto) 0.0 (0.0-0.2) /100WBC Sodium 141 (135-145) mmol/L Potassium 3.4 (3.3-5.1) mmol/L Chloride 101 (96-108) mmol/L Carbon Dioxide 31 H (22-29) mmol/L Anion Gap 12 (12-20) BUN 8 L (9-16) mg/dL Creatinine 0.65 (0.5-1.4) mg/dL Estim Creat Clear Calc 117.8 Estimated GFR > 60 Random Glucose 157 H (60-115) mg/dL Lactic Acid 1.7 (0.5-2.0) mmol/L Calcium 9.8 (8.4-10.2) mg/dL Total Bilirubin 0.6 (0.0-1.0) mg/dL AST 12 (5-31) U/L ALT 8 (0-31) U/L Alkaline Phosphatase 128 H (39-117) U/L Total Protein 7.9 (6.5-8.0) g/dL Albumin 4.1 (3.5-5.0) g/dL Influenza Type A (PCR) NEGATIVE (Negative) Influenza Type B (PCR) NEGATIVE (Negative) RSV RNA Qual (PCR) NEGATIVE (Negative) SARS-CoV-2 RNA (RT-PCR) NEGATIVE (Negative) Independent Interpretation I performed an independent interpretation of an: Plain X-Ray Radiology Impression Discussion of test interpretation with radiology: I have reviewed the radiologist's reading. Discharge Plan Discharge Clinical Impression: Atypical pneumonia Patient Disposition: Home, Self-Care Instructions: Community Acquired Pneumonia (ED) Additional Instructions: Drink plenty of fluids Antibiotic as prescribed Cough drops as prescribed Tylenol/Motrin for fever Report to the ER/PCP if not better Prescriptions: New benzonatate 200 mg capsule 200 mg PO TID PRN (Reason: cough) Qty: 30 0RF doxycycline hyclate 100 mg tablet 100 mg PO BID Qty: 20 0RF amoxicillin-pot clavulanate 875-125 mg tablet 1 tab PO BID Qty: 20 0RF No Action (DME) lancets [TRUEplus Lancets] 33 gauge misc See Rx Instructions .ROUTE .MEDSUPPLY Qty: 120 11RF Rx Instructions: 4 times a day metformin 500 mg tablet 1,000 mg PO BID 90 Days Qty: 360 1RF Hold Instructions: Resume on 09/15/22. (DME) blood-glucose meter [FreeStyle Lite Meter] Kit See Rx Instructions .Route Qty: 1 0RF Rx Instructions: As directed (DME) pen needle, diabetic [Pentips] 32 gauge x 5/32 needle See Rx Instructions .ROUTE .COMPLEX Qty: 100 11RF Dose Instruction: USE DIRECTED TWICE DAILY Rx Instructions: USE DIRECTED TWICE DAILY nystatin 100,000 unit/mL suspension 500,000 unit PO TID 7 Days Qty: 105 0RF Rx Instructions: swish and swallow (DME) FreeStyle Lite Strips Strip See Rx Instructions .MEDSUPPLY Qty: 150 5RF Rx Instructions: 5 times a day (DME) FreeStyle Ortiz 2 Sensor Kit See Rx Instructions .ROUTE .COMPLEX Qty: 2 6RF Dose Instruction: USE DIRECTED AND CHANGE EVERY 14 DAYS Rx Instructions: USE DIRECTED AND CHANGE EVERY 14 DAYS propranolol 80 mg tablet 80 mg PO BID Qty: 180 0RF Rx Instructions: OVERDUE FOR APPT. PLEASE CALL [phone] SO THAT WE CAN CONTINUE REFILLING YOUR CARDIAC MEDICATIONS. Baqsimi 3 mg/actuation spray,non-aerosol 3 mg intranasal ONCE Qty: 4 6RF Mounjaro 5 mg/0.5 mL pen injector 5 mg subcut QWEEK Qty: 2 4RF furosemide 20 mg tablet 20 mg PO .daily Qty: 30 3RF Spiriva Respimat 2.5 mcg/actuation mist 2 puff inhalation DAILY 30 Days Qty: 4 6RF gabapentin 400 mg capsule 400 mg PO TID Qty: 90 4RF levothyroxine 125 mcg tablet 1 tab PO DAILY@0600 nortriptyline 50 mg capsule 1 cap PO BEDTIME Rx Instructions: TAKE WITH 75 MG ibuprofen 600 mg tablet 600 mg PO Q6H PRN (Reason: pain) Qty: 30 0RF azithromycin 250 mg tablet See Rx Instructions .ROUTE .COMPLEX Qty: 6 0RF Rx Instructions: For 250 mg dose pack: take 500 mg today (day 1), then 250 mg for 4 days (days 2-5) oxybutynin chloride 10 mg tablet extended release 24hr 10 mg PO DAILY aripiprazole 2 mg tablet 2 mg PO DAILY prednisone 20 mg tablet 60 mg PO DAILY Qty: 12 0RF clonidine HCl 0.1 mg tablet 0.1 mg PO BEDTIME PRN (Reason: Anxiety) rosuvastatin [Crestor] 20 mg tablet 20 mg PO BEDTIME thiamine HCl (vitamin B1) 100 mg tablet 100 mg PO DAILY Rx Instructions: WITH MEAL ferrous sulfate 325 mg (65 mg iron) tablet 325 mg PO Q OTHER DAY clonazepam 1 mg tablet 1 mg PO TID PRN (Reason: Anxiety) valsartan 160 mg tablet 160 mg PO DAILY omeprazole 20 mg capsule,delayed release(DR/EC) 20 mg PO DAILY@0630 cyanocobalamin (vitamin B-12) 1,000 mcg/mL solution 1,000 mcg IM [id number] aspirin 81 mg tablet,delayed release (DR/EC) 81 mg PO DAILY docusate sodium 100 mg capsule 100 mg PO BID cholecalciferol (vitamin D3) 50 mcg (2,000 unit) capsule 50 mcg PO DAILY (DME) FreeStyle Ortiz 2 [place] Misc See Rx Instructions .Route Qty: 1 0RF Rx Instructions: As directed albuterol sulfate 2.5 mg /3 mL (0.083 %) solution for nebulization 2.5 mg inhalation Q4H PRN (Reason: Wheezing) Metamucil (sugar) Powder 1 tbsp PO BID Qty: 1254 0RF Arnuity Ellipta 200 mcg/actuation blister with device 1 inh inhalation DAILY Humulin R U-500 (Conc) Kwikpen 500 unit/mL (3 mL) insulin pen 60 unit subcut .twice a day Qty: 6 4RF Print Language: [place]an
[2023-09-13 18:49] VITALS: TEMP 39.2
[2023-09-13 18:55] LABS: MANUAL DIFF FLAG NO
[2023-09-13 18:57] LABS: Basophils Percent Auto 0.2 % (0-2); Eosinophils Absolute Auto 0.1 X10*3/uL (0.0-0.4); Eosinophils Percent Auto 0.7 % (0-4); Hematocrit 37.8 % (37.0-47.0); Hemoglobin 11.8 g/dl (12.0-16.0); Imm Gran Abs Auto 0.03 X10*3/uL (0.00-0.03); Imm Gran Pct Auto 0.4 % (0.0-0.4); Mean Corpuscular HGB Conc 31.2 g/dl (31.0-35.0); Mean Corpuscular Hemoglobin 26.6 pg (27.0-33.0); Mean Corpuscular Volume 85.3 fL (80.0-98.0); Mean Platelet Volume 10.1 fL (9.4-12.3); Monocytes Absolute Auto 0.6 X10*3/uL (0.1-1.2); Monocytes Percent Auto 7.2 % (2-11); Neutrophils Absolute Auto 5.8 x10*3/uL (2.0-8.3); Neutrophils Percent Auto 68.5 % (45-73); Platelet Count 233 X10*3/uL (160-400); Red Blood Count 4.43 X10*6/uL (4.20-5.50); Red Cell Distribution Width 14.6 % (11.0-16.0); White Blood Count 8.5 X10*3/uL (4.8-10.8)
[2023-09-13] MEDS: LORazepam 1 MG TABLET PO (19:05)
[2023-09-13] MEDS: Acetaminophen 325 MG TABLET 650 MG PO (19:05)
[2023-09-13 19:15] LABS: Lactic Acid 1.7 mmol/L (0.5-2.0)
[2023-09-13] MEDS: cefTRIAXone sodium 1 GM in 0.9 % Sodium Chloride 50 ML IV (19:19)
[2023-09-13] MEDS: Ibuprofen 600 MG TABLET PO (19:19)
[2023-09-13 19:20] LABS: Alanine Aminotransferase 8 U/L (0-31); Albumin Level 4.1 g/dL (3.5-5.0); Alkaline Phosphatase 128 U/L (39-117); Anion Gap 12 (12-20); Aspartate Amino Transferase 12 U/L (5-31); Bilirubin Total 0.6 mg/dL (0.0-1.0); Blood Urea Nitrogen 8 mg/dL (9-16); Calcium 9.8 mg/dL (8.4-10.2); Carbon Dioxide 31 mmol/L (22-29); Chloride 101 mmol/L (96-108); Creatinine Clr Calc Pharmacy 117.8; Estimated Glomerular Filt Rate > 60; Glucose Random 157 mg/dL (60-115); Potassium 3.4 mmol/L (3.3-5.1); Sodium 141 mmol/L (135-145); Total Protein 7.9 g/dL (6.5-8.0)
[2023-09-13] MEDS: 0.9 % Sodium Chloride 1,000 ML 999 ML IV (19:20)
[2023-09-13 19:41] LABS: Influenza A PCR NEGATIVE (Negative); Influenza B PCR NEGATIVE (Negative); Resp Syncy Virus RNA Qual PCR NEGATIVE (Negative); SARS COV2 PCR INHOUSE NEGATIVE (Negative)
[2023-09-13 20:00] VITALS: PULSE 90; O2SAT 92
[2023-09-13] MEDS: Ketorolac Tromethamine 30 MG/ML VIAL IVPUSH (20:09)
[2023-09-13] MEDS: Doxycycline Monohydrate 100 MG CAPSULE PO (20:09)
[2023-09-13] MEDS: Albuterol Sulfate 2.5 MG, Albuterol/Iprat 2.5/0.5MG 3 ML 3 ML INHALE (20:20)
[2023-09-13 20:23] VITALS: PULSE 98; RESP 28; O2SAT 93
[2023-09-13 20:32] VITALS: BP 143/65; PULSE 92; RESP 42; TEMP 37.3; O2SAT 94
[2023-09-14 05:18] VITALS: BP 153/70; PULSE 90; RESP 24; TEMP 37.8; O2SAT 94
== END 2023-09-13 21:42 | disposition home or self-care (01) ==
PROVIDERS: Physician Assistant; Emergency Provider Internal Medicine; PCP Family Medicine
DX: J18.9 Pneumonia, unspecified organism (principal); R06.02 Shortness of breath; R50.9 Fever, unspecified; F33.1 Major depressive disorder, recurrent, moderate; R05.9 Cough, unspecified; Z79.899 Other long term (current) drug therapy; Z03.818 Encounter for observation for suspected exposure to other biological agents ruled out
CPT/HCPCS: 0241U; 36415; 71045; 80053; 83605; 85025; 87040; 94640; 96365; 96375; 99285; J0696; J1885

== ENCOUNTER 2023-09-14 21:58 | Inpatient (IN) | payer MEDICAID, SELFPAY ==
--- NOTE | 2023-09-14 | ECG_ITS ---
Test Reason : sob Blood Pressure : / mmHG Vent. Rate : 111 BPM Atrial Rate : 267 BPM P-R Int : 000 ms QRS Dur : 090 ms QT Int : 322 ms P-R-T Axes : 040 008 -12 degrees QTc Int : 437 ms Atrial flutter Minimal voltage criteria for LVH, may be normal variant ( Richie product ) Possible Inferior infarct , age undetermined Abnormal ECG When compared with ECG of 15-JUN-2023 04:49, Atrial flutter has replaced Sinus rhythm Nonspecific T wave abnormality, worse in Inferior leads Referred By: Generic ED Physician Electronically Signed By:CORBY CALZADA MD
--- NOTE | ~2023-09-14 | CT_ITS ---
EXAMINATION: CT CERVICAL SPINE WITHOUT CONTRAST CLINICAL INFORMATION: Fall. Neck pain. COMPARISON: None available. TECHNIQUE: Contiguous axial noncontrast CT scan images of the cervical spine obtained. Sagittal and coronal reformatted images also obtained. This CT examination was performed using dose optimization techniques as appropriate, variously including the following: *Automated exposure control *Adjustment of mA and/or kV according to patient size (this includes techniques or standardized protocols for targeted exams where dose is matched to indication/reason for exam; i.e. extremities or head) *Use of iterative reconstruction technique DLP: 642 mGy-cm FINDINGS: The alignment is normal. There is mild C4-C5 to C6-C7 disc degenerative change with loss of disc space, endplate change and posterior osteophytes associated with diffuse mild facet osteoarthritic hypertrophic change with mild C4-C5 C6-C7 spinal canal narrowing. There is no significant neuroforaminal narrowing. No fracture is seen. The soft tissues are unremarkable. The visualized upper lung abbott are clear. CT/CT cervical spine wo IV con IMPRESSION: 1. No acute fracture or dislocation. 2. Degenerative disc changes C4-C5 to C6-C7 disc levels with mild spinal canal narrowing. Fleischner guidelines were followed.
--- NOTE | ~2023-09-14 | FL_ITS ---
EXAMINATION: Modified Barium Swallow CLINICAL INFORMATION: Dysphagia COMPARISON: None TECHNIQUE: Modified barium swallow was performed under lateral fluoroscopy with patient in standing position. Barium mixed with solids and liquids of different consistencies was administered by the speech pathologist. Examination was recorded in the fluoroscopy suite. FINDINGS: Laryngeal penetration is seen with thin consistency barium. No aspiration was observed. FLUOROSCOPY TIME: 1 minute 19 seconds Number of Spot Images: N/A DOSE AREA PRODUCT: 1100 uGy-m2 (microgray-meter squared) FL/FL barium swallow modified IMPRESSION: Laryngeal penetration is seen with thin consistency barium. No aspiration was observed. Refer to the speech therapy report for further clarification This procedure was performed by Santiago Mueller PA-C, and supervised by Dr. Driver
--- NOTE | ~2023-09-14 | XR_ITS ---
EXAMINATION: XR CHEST CLINICAL INFORMATION: Shortness of breath. COMPARISON: Chest radiograph 09/13/2023. TECHNIQUE: Frontal view of the chest was obtained. FINDINGS: Increased consolidative airspace opacity projecting over the right lower lung field. No significant pleural effusion. No pneumothorax. Stable enlargement of the cardiomediastinal silhouette. No acute osseous findings. XR/XR chest 1V IMPRESSION: Worsening pulmonary aeration with increased consolidative airspace opacity in the right lower lung field concerning for pneumonia. Recommend close attention on follow-up to ensure resolution after treatment.
[2023-09-14 22:10] VITALS: BP 135/83; BP 178/90; PULSE 113; PULSE 125; RESP 28; TEMP 36.9; O2SAT 94; O2SAT 95; BMI 40.2
[2023-09-14 22:29] VITALS: O2SAT 94
[2023-09-14 23:03] LABS: Venous Blood Gas Refer to POC result
[2023-09-14 23:04] LABS: MANUAL DIFF FLAG NO
[2023-09-14 23:05] LABS: Basophils Percent Auto 0.3 % (0-2); Eosinophils Percent Auto 0.1 % (0-4); Hematocrit 40.3 % (37.0-47.0); Hemoglobin 12.6 g/dl (12.0-16.0); Imm Gran Abs Auto 0.14 X10*3/uL (0.00-0.03); Imm Gran Pct Auto 0.9 % (0.0-0.4); Lymphocytes Absolute Auto 2.4 X10*3/uL (1.2-4.9); Lymphocytes Percent Auto 16.1 % (20-40); Mean Corpuscular HGB Conc 31.3 g/dl (31.0-35.0); Mean Corpuscular Hemoglobin 26.6 pg (27.0-33.0); Mean Corpuscular Volume 85.2 fL (80.0-98.0); Mean Platelet Volume 10.1 fL (9.4-12.3); Monocytes Absolute Auto 0.8 X10*3/uL (0.1-1.2); Monocytes Percent Auto 5.4 % (2-11); Neutrophils Absolute Auto 11.5 x10*3/uL (2.0-8.3); Neutrophils Percent Auto 77.2 % (45-73); Platelet Count 250 X10*3/uL (160-400); Red Blood Count 4.73 X10*6/uL (4.20-5.50); Red Cell Distribution Width 14.9 % (11.0-16.0); White Blood Count 14.9 X10*3/uL (4.8-10.8)
[2023-09-14 23:14] LABS: VBG Base Excess 1.3 mmol/L; VBG HCO3 25 mmol/L (22-26); VBG pCO2 37 mmHg; VBG pH 7.43 (7.32-7.43); VBG pO2 38 mmHg
[2023-09-14 23:17] LABS: Lactic Acid 3.8 mmol/L (0.5-2.0)
[2023-09-14 23:19] LABS: Alanine Aminotransferase 8 U/L (0-31); Alkaline Phosphatase 132 U/L (39-117); Anion Gap 19 (12-20); Aspartate Amino Transferase 17 U/L (5-31); Bilirubin Total 0.8 mg/dL (0.0-1.0); Blood Urea Nitrogen 9 mg/dL (9-16); Calcium 9.5 mg/dL (8.4-10.2); Carbon Dioxide 22 mmol/L (22-29); Chloride 100 mmol/L (96-108); Creatinine Clr Calc Pharmacy 83.6; Estimated Glomerular Filt Rate > 60; Glucose Random 245 mg/dL (60-115); Potassium 3.4 mmol/L (3.3-5.1); Sodium 138 mmol/L (135-145)
[2023-09-14 23:25] LABS: Troponin-I High Sensitivity 4.1 ng/L (<3.5-17.0)
--- NOTE | 2023-09-14 23:43 | ED.GENADULT ---
HPI - General Adult General Chief complaint: Upper Respiratory Symptoms Stated complaint: FALL W/SOB, DIAPHORETIC PER EMS Time Seen by Provider: 09/14/23 23:43 History of Present Illness ED Provider: Lakshmi BRAGG narrative: The patient is a 58-year-old woman who was seen here yesterday diagnosed with a right lower lobe pneumonia. She had presented with a 1 day history of cough and fever. Her temperature was 100.7 degrees. In the emergency room yesterday she received 1 g of ceftriaxone IV and also 100 mg of doxycycline. She was discharged home with a prescription for doxycycline and Augmentin.. Today the patient apparently felt weak getting off the toilet and fell forward landing on her hands and knees and striking her head. There was no loss of consciousness. The patient seemed too weak to get off the floor and so an ambulance was called. Paramedics applied cervical collar and brought the patient to the emergency room. When I examined the patient she felt quite hot. I took her oral temperature was 102.5 degrees. Daughter says the patient has been coughing a lot. Related Data Home Medications ?Medication ?Instructions ?Recorded ?Confirmed clonidine HCl 0.1 mg tablet 0.1 mg PO BEDTIME PRN Anxiety 11/30/19 06/26/23 ferrous sulfate 325 mg (65 mg 325 mg PO Q OTHER DAY 11/30/19 06/26/23 iron) tablet rosuvastatin 20 mg tablet (Crestor) 20 mg PO BEDTIME 11/30/19 06/26/23 thiamine HCl (vitamin B1) 100 mg 100 mg PO DAILY 11/30/19 06/26/23 tablet aspirin 81 mg tablet,delayed 81 mg PO DAILY 01/01/21 06/26/23 release cyanocobalamin (vitamin B-12) 1,000 mcg IM [id number] 01/01/21 06/26/23 1,000 mcg/mL injection solution clonazepam 1 mg tablet 1 mg PO TID PRN Anxiety 05/07/21 06/26/23 omeprazole 20 mg capsule,delayed 20 mg PO DAILY@0630 05/07/21 06/26/23 release valsartan 160 mg tablet 160 mg PO DAILY 05/07/21 06/26/23 cholecalciferol (vitamin D3) 50 50 mcg PO DAILY 07/12/21 06/26/23 mcg (2,000 unit) capsule docusate sodium 100 mg capsule 100 mg PO BID 09/26/21 06/26/23 levothyroxine 125 mcg tablet 1 tab PO DAILY@0600 10/23/21 06/26/23 nortriptyline 50 mg capsule 1 cap PO BEDTIME 10/23/21 06/26/23 albuterol sulfate 2.5 mg/3 mL 2.5 mg inhalation Q4H PRN Wheezing 12/04/21 06/26/23 (0.083 %) solution for nebulization aripiprazole 2 mg tablet 2 mg PO DAILY 09/13/22 06/26/23 oxybutynin chloride 10 mg 10 mg PO DAILY 09/13/22 06/26/23 tablet,extended release 24 hr fluticasone furoate 200 1 inh inhalation DAILY 08/25/23 mcg/actuation blister powder for inhalation (Arnuity Ellipta) Previous Rx's ?Medication ?Instructions ?Recorded TRUEplus Lancets 33 gauge (lancets) #120 ea 12/13/21 metformin 500 mg tablet 1,000 mg (2 x 500 mg) PO BID 90 05/20/22 days #360 tabs flash glucose scanning reader #1 ea 06/05/22 (FreeStyle Ortiz 2 [place]) blood-glucose meter (FreeStyle #1 ea 07/17/22 Lite Meter kit) ibuprofen 600 mg tablet 600 mg PO Q6H PRN pain #30 tabs 09/09/22 psyllium seed (sugar) oral powder 1 tbsp PO BID #1,254 grams 10/13/22 (Metamucil (sugar) oral powder) pen needle, diabetic 32 gauge x #100 ea 03/26/23 (Pentips) prednisone 20 mg tablet 60 mg (3 x 20 mg) PO DAILY #12 tabs 05/06/23 nystatin 100,000 unit/mL oral 500,000 unit (5 mL) PO TID 7 days 05/18/23 suspension #105 mL blood sugar diagnostic (FreeStyle #150 ea 06/02/23 Lite Strips) insulin regular hum U-500 conc 500 60 unit (0.12 mL) subcut .twice a 06/02/23 unit/mL(3 mL) subcut pen (Humulin day #6 mL R U-500 (Conc) Insulin Kwikpen) azithromycin 250 mg tablet See Rx Instructions PO .COMPLEX #6 06/15/23 tabs flash glucose sensor (FreeStyle #2 kits 06/16/23 Ortiz 2 Sensor kit) propranolol 80 mg tablet 80 mg PO BID #180 tabs 06/22/23 glucagon 3 mg/actuation nasal 3 mg intranasal ONCE #4 ea 07/06/23 spray (Baqsimi) tirzepatide 5 mg/0.5 mL 5 mg (0.5 mL) subcut QWEEK #2 mL 07/14/23 subcutaneous pen injector (Jeronimo) furosemide 20 mg tablet 20 mg PO .daily #30 tabs 07/20/23 gabapentin 400 mg capsule 400 mg PO TID #90 caps 08/13/23 tiotropium bromide 2.5 2 puff inhalation DAILY 30 days #4 08/13/23 mcg/actuation mist for inhalation grams (Spiriva Respimat) amoxicillin 875 mg-potassium 1 tab PO BID #20 tabs 09/13/23 clavulanate 125 mg tablet benzonatate 200 mg capsule 200 mg PO TID PRN cough #30 caps 09/13/23 doxycycline hyclate 100 mg tablet 100 mg PO BID #20 tabs 09/13/23 Allergies Allergy/AdvReac Type Severity Reaction Status Date / Time No Known Allergies Allergy Verified 09/14/23 22:15 [No Known Allergies*] Review of Systems Review of Systems: Yes all other systems are reviewed and are negative PMFSH Past Medical History Medical History Coarse tremors Bleeding hemorrhoids Hyperlipidemia Dental crowns present Bilateral pneumonia Respiratory failure Hypothyroidism Paranoia (psychosis) Stress incontinence Insomnia Anxiety Obstructive sleep apnea on CPAP Scoliosis of thoracolumbar spine Morbid obesity Chronic pain syndrome Sacroiliitis Inappropriate sinus tachycardia GERD (gastroesophageal reflux disease) 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 due to insulin nursing home (current) use of insulin Gastroparesis 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, uncontrolled Anemia Hemorrhoids Migraine Asthma Patellofemoral arthritis Patella-femoral syndrome Lumbar spondylosis Fibromyalgia Tubular adenoma Family history of colon cancer Vitamin D deficiency Dyslipidemia Genu valgum Low back pain Palpitations Chest pain HTN (hypertension) Surgical History Status post hemorrhoidectomy History of hemorrhoidectomy (~09/09/22) History of surgery Hx of section H/O esophagogastroduodenoscopy History of colonoscopy History of arthroscopy of right knee History of bilateral carpal tunnel release History of bladder surgery History of tubal ligation Hx of tonsillectomy Family History Family History Father Stomach cancer Mother Heart disease HTN (hypertension) Diabetes Son No problems noted. 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) Alcohol intake: never Patient Tobacco Use Status: Never used Tobacco Second Hand Smoke Exposure: No Use of substances other than those prescribed or required for medical reasons: No Advance Directives: No Advance Directives Information Provided: Yes Do you have a plan to hurt others: No Plan Patient : Yes service: No Current occupational status: disabled Current occupation: lt handed Sexual orientation: Straight/Heterosexual Gender identity: Female Physical Exam ED Vital Signs: Vital Signs - 24 hr 09/14/23 22:10 09/14/23 22:29 09/15/23 01:43 Temperature 98.4 F Pulse Rate 113 H 110 H Respiratory Rate 28 H 16 Blood Pressure 135/83 152/71 H Pulse Oximetry 94 94 99 Oxygen Delivery Method Nasal Cannula Nasal Cannula Nasal Cannula Oxygen Flow Rate 2 09/15/23 02:26 Temperature 99.2 F Pulse Rate 108 H Respiratory Rate 26 H Blood Pressure 158/77 H Pulse Oximetry 97 Oxygen Delivery Method Nasal Cannula Oxygen Flow Rate 2 BMI result Body Mass Index 40.2 Const Other: The patient is awake and alert. She appears quite flushed. She looks weak and tremulous. She does not seem in obvious respiratory distress. HENMT Other: Skin of the face is flushed but there is no bruising or other signs of trauma to the face. No raccoon eyes or tellez sign. No bruising. Mucous membranes are not dry. Eyes Other: Pupils are round equal, conjunctivae are clear, extraocular movements are intact Neck Other: The patient reports diffuse posterior cervical spine tenderness. Resp Other: Slight crackles at right base. No increased work of breathing. Cardio Rate: tachycardic Rhythm: regular rhythm Heart sounds: S1 normal heart sound present and S2 normal heart sound present GI Other: Abdomen is soft and nontender. Skin Other: Skin of the face is flushed. The skin is otherwise pale and sweaty Neuro Other: The patient is awake and alert. She has a tremor in her extremities. This is apparently worse than her usual tremor. Extrem Other: No obvious signs of trauma to the extremities. No pitting edema Medications Administered Generic Name Dose Route Start Last Admin Trade Name Freq PRN Reason Stop Dose Admin Metronidazole 500 mg in 100 mls @ 100 mls/hr 09/15/23 02:01 09/15/23 02:21 Flagyl IV 09/15/23 03:00 100 mls/hr ONCE ONE Administration Discontinued Medications Generic Name Dose Route Start Last Admin Trade Name Freq PRN Reason Stop Dose Admin Ceftriaxone Sodium 2 gm/ 50 mls @ 100 mls/hr 09/14/23 23:52 09/15/23 01:01 Sodium Chloride IV 09/15/23 00:21 Infused ONCE ONE Infusion Azithromycin 500 mg/ Sodium 250 mls @ 125 mls/hr 09/14/23 23:54 09/15/23 00:21 Chloride IV 09/15/23 01:53 125 mls/hr ONCE ONE Administration Sodium Chloride 2,993.7 mls @ 2,993.7 mls/hr 09/14/23 23:55 09/15/23 02:25 Ns 30 ml/kg infuse over 1 hr (2993.7 ml) 09/15/23 00:54 Infused IV Infusion .Q1H STA Medical Decision Making Medical Decision Making [facility] Narrative: The patient is a 58-year-old woman with multiple medical problems who was seen here yesterday and diagnosed with a right lower lobe infiltrate and started on Augmentin and doxycycline. She returns feeling worse. Her temperature was 102.5 degrees. Her x-ray shows a worsening infiltrate. The patient had had a fall at home and was complaining of neck pain. I did not have the sense that she had any significant head injury. A cervical spine CT was negative. The patient had blood cultures drawn. Her lactate was 3.8. She was given IV ceftriaxone and azithromycin. She was also given IV fluids. She was also given IV metronidazole on case there is an element of aspiration pneumonia. The patient's initial lactate was 3.8. Repeat lactate was 2.7. The patient has remained mildly tachycardic but she has not hypotensive. She will be admitted to the hospitalist service. Lab Data 09/14/23 22:56 09/14/23 22:54 Labs: Lab Results 09/14/23 09/14/23 09/14/23 Range/Units 22:54 22:56 22:59 WBC 14.9 H (4.8-10.8) X10*3/uL RBC 4.73 (4.20-5.50) X10*6/uL Hgb 12.6 (12.0-16.0) g/dl Hct 40.3 (37.0-47.0) % MCV 85.2 (80.0-98.0) fL MCH 26.6 L (27.0-33.0) pg MCHC 31.3 (31.0-35.0) g/dl RDW 14.9 (11.0-16.0) % Plt Count 250 (160-400) X10*3/uL MPV 10.1 (9.4-12.3) fL Immature Gran % (Auto) 0.9 H (0.0-0.4) % Neut % (Auto) 77.2 H (45-73) % Lymph % (Auto) 16.1 L (20-40) % [place] % (Auto) 5.4 (2-11) % Eos % (Auto) 0.1 (0-4) % Baso % (Auto) 0.3 (0-2) % Lymph # (Auto) 2.4 (1.2-4.9) X10*3/uL [place] # (Auto) 0.8 (0.1-1.2) X10*3/uL Eos # (Auto) 0.0 (0.0-0.4) X10*3/uL Baso # (Auto) 0.0 (0.0-0.2) X10*3/uL Abs Immat Gran (auto) 0.14 H (0.00-0.03) X10*3/uL Absolute Neuts (auto) 11.5 H (2.0-8.3) x10*3/uL Absolute Nucleated RBC 0.000 (0.0-0.012) X10*3/uL Nucleated RBC % (auto) 0.0 (0.0-0.2) /100WBC VBG pH 7.43 (7.32-7.43) VBG pCO2 37 mmHg VBG pO2 38 mmHg VBG HCO3 25 (22-26) mmol/L VBG O2 Saturation 59.0 % VBG Base Excess 1.3 mmol/L Sodium 138 (135-145) mmol/L Potassium 3.4 (3.3-5.1) mmol/L Chloride 100 (96-108) mmol/L Carbon Dioxide 22 (22-29) mmol/L Anion Gap 19 (12-20) BUN 9 (9-16) mg/dL Creatinine 0.83 (0.5-1.4) mg/dL Estim Creat Clear Calc 83.6 Estimated GFR > 60 Random Glucose 245 H (60-115) mg/dL Lactic Acid 3.8 H* (0.5-2.0) mmol/L Lactic Acid F/U @ 2Hr (0.5-2.0) mmol/L Calcium 9.5 (8.4-10.2) mg/dL Total Bilirubin 0.8 (0.0-1.0) mg/dL AST 17 (5-31) U/L ALT 8 (0-31) U/L Alkaline Phosphatase 132 H (39-117) U/L Troponin I High Sens 4.1 D (<3.5-17.0) ng/L C-Reactive Protein 19.88 H (< or = 0.50) mg/dL Total Protein 8.0 (6.5-8.0) g/dL Albumin 4.0 (3.5-5.0) g/dL Beta HCG, Quant < 2 mIU/mL 09/15/23 Range/Units 01:27 WBC (4.8-10.8) X10*3/uL RBC (4.20-5.50) X10*6/uL Hgb (12.0-16.0) g/dl Hct (37.0-47.0) % MCV (80.0-98.0) fL MCH (27.0-33.0) pg MCHC (31.0-35.0) g/dl RDW (11.0-16.0) % Plt Count (160-400) X10*3/uL MPV (9.4-12.3) fL Immature Gran % (Auto) (0.0-0.4) % Neut % (Auto) (45-73) % Lymph % (Auto) (20-40) % [place] % (Auto) (2-11) % Eos % (Auto) (0-4) % Baso % (Auto) (0-2) % Lymph # (Auto) (1.2-4.9) X10*3/uL [place] # (Auto) (0.1-1.2) X10*3/uL Eos # (Auto) (0.0-0.4) X10*3/uL Baso # (Auto) (0.0-0.2) X10*3/uL Abs Immat Gran (auto) (0.00-0.03) X10*3/uL Absolute Neuts (auto) (2.0-8.3) x10*3/uL Absolute Nucleated RBC (0.0-0.012) X10*3/uL Nucleated RBC % (auto) (0.0-0.2) /100WBC VBG pH (7.32-7.43) VBG pCO2 mmHg VBG pO2 mmHg VBG HCO3 (22-26) mmol/L VBG O2 Saturation % VBG Base Excess mmol/L Sodium (135-145) mmol/L Potassium (3.3-5.1) mmol/L Chloride (96-108) mmol/L Carbon Dioxide (22-29) mmol/L Anion Gap (12-20) BUN (9-16) mg/dL Creatinine (0.5-1.4) mg/dL Estim Creat Clear Calc Estimated GFR Random Glucose (60-115) mg/dL Lactic Acid (0.5-2.0) mmol/L Lactic Acid F/U @ 2Hr 2.7 H* (0.5-2.0) mmol/L Calcium (8.4-10.2) mg/dL Total Bilirubin (0.0-1.0) mg/dL AST (5-31) U/L ALT (0-31) U/L Alkaline Phosphatase (39-117) U/L Troponin I High Sens (<3.5-17.0) ng/L C-Reactive Protein (< or = 0.50) mg/dL Total Protein (6.5-8.0) g/dL Albumin (3.5-5.0) g/dL Beta HCG, Quant mIU/mL Critical Care Time Critical Care Time Critical Care Time: Yes Total Critical Care Time: 35 Attestation: The patient was critically ill with a high probability of imminent or life-threatening deterioration. ?I spent greater than 30 minutes of discontinuous time evaluating the patient, delivering critical care at the bedside, discussing evaluating data with consultants. ?Critical care time does not include time spent performing separately billable procedures or teaching. ?Time spent performing critical care with 35 minutes. Discharge Plan Discharge Clinical Impression: Pneumonia Patient Disposition: Admitted As Inpatient Prescriptions: No Action (DME) lancets [TRUEplus Lancets] 33 gauge misc See Rx Instructions .ROUTE .MEDSUPPLY Qty: 120 11RF Rx Instructions: 4 times a day metformin 500 mg tablet 1,000 mg PO BID 90 Days Qty: 360 1RF Hold Instructions: Resume on 09/15/22. (DME) blood-glucose meter [FreeStyle Lite Meter] Kit See Rx Instructions .Route Qty: 1 0RF Rx Instructions: As directed (DME) pen needle, diabetic [Pentips] 32 gauge x 5/32 needle See Rx Instructions .ROUTE .COMPLEX Qty: 100 11RF Dose Instruction: USE DIRECTED TWICE DAILY Rx Instructions: USE DIRECTED TWICE DAILY nystatin 100,000 unit/mL suspension 500,000 unit PO TID 7 Days Qty: 105 0RF Rx Instructions: swish and swallow (DME) FreeStyle Lite Strips Strip See Rx Instructions .MEDSUPPLY Qty: 150 5RF Rx Instructions: 5 times a day (DME) FreeStyle Ortiz 2 Sensor Kit See Rx Instructions .ROUTE .COMPLEX Qty: 2 6RF Dose Instruction: USE DIRECTED AND CHANGE EVERY 14 DAYS Rx Instructions: USE DIRECTED AND CHANGE EVERY 14 DAYS propranolol 80 mg tablet 80 mg PO BID Qty: 180 0RF Rx Instructions: OVERDUE FOR APPT. PLEASE CALL [phone] SO THAT WE CAN CONTINUE REFILLING YOUR CARDIAC MEDICATIONS. Baqsimi 3 mg/actuation spray,non-aerosol 3 mg intranasal ONCE Qty: 4 6RF Mounjaro 5 mg/0.5 mL pen injector 5 mg subcut QWEEK Qty: 2 4RF furosemide 20 mg tablet 20 mg PO .daily Qty: 30 3RF Spiriva Respimat 2.5 mcg/actuation mist 2 puff inhalation DAILY 30 Days Qty: 4 6RF gabapentin 400 mg capsule 400 mg PO TID Qty: 90 4RF levothyroxine 125 mcg tablet 1 tab PO DAILY@0600 nortriptyline 50 mg capsule 1 cap PO BEDTIME Rx Instructions: TAKE WITH 75 MG ibuprofen 600 mg tablet 600 mg PO Q6H PRN (Reason: pain) Qty: 30 0RF azithromycin 250 mg tablet See Rx Instructions .ROUTE .COMPLEX Qty: 6 0RF Rx Instructions: For 250 mg dose pack: take 500 mg today (day 1), then 250 mg for 4 days (days 2-5) benzonatate 200 mg capsule 200 mg PO TID PRN (Reason: cough) Qty: 30 0RF doxycycline hyclate 100 mg tablet 100 mg PO BID Qty: 20 0RF amoxicillin-pot clavulanate 875-125 mg tablet 1 tab PO BID Qty: 20 0RF oxybutynin chloride 10 mg tablet extended release 24hr 10 mg PO DAILY aripiprazole 2 mg tablet 2 mg PO DAILY prednisone 20 mg tablet 60 mg PO DAILY Qty: 12 0RF clonidine HCl 0.1 mg tablet 0.1 mg PO BEDTIME PRN (Reason: Anxiety) rosuvastatin [Crestor] 20 mg tablet 20 mg PO BEDTIME thiamine HCl (vitamin B1) 100 mg tablet 100 mg PO DAILY Rx Instructions: WITH MEAL ferrous sulfate 325 mg (65 mg iron) tablet 325 mg PO Q OTHER DAY clonazepam 1 mg tablet 1 mg PO TID PRN (Reason: Anxiety) valsartan 160 mg tablet 160 mg PO DAILY omeprazole 20 mg capsule,delayed release(DR/EC) 20 mg PO DAILY@0630 cyanocobalamin (vitamin B-12) 1,000 mcg/mL solution 1,000 mcg IM [id number] aspirin 81 mg tablet,delayed release (DR/EC) 81 mg PO DAILY docusate sodium 100 mg capsule 100 mg PO BID cholecalciferol (vitamin D3) 50 mcg (2,000 unit) capsule 50 mcg PO DAILY (DME) FreeStyle Ortiz 2 [place] Misc See Rx Instructions .Route Qty: 1 0RF Rx Instructions: As directed albuterol sulfate 2.5 mg /3 mL (0.083 %) solution for nebulization 2.5 mg inhalation Q4H PRN (Reason: Wheezing) Metamucil (sugar) Powder 1 tbsp PO BID Qty: 1254 0RF Arnuity Ellipta 200 mcg/actuation blister with device 1 inh inhalation DAILY Humulin R U-500 (Conc) Kwikpen 500 unit/mL (3 mL) insulin pen 60 unit subcut .twice a day Qty: 6 4RF Print Language: Kyrgyz
[2023-09-15] VITALS (21 sets, daily range): BP systolic 106–170; BP diastolic 54–79; PULSE 85–112; RESP 14–30; TEMP 36.3–39.1; O2SAT 93–99
--- NOTE | 2023-09-15 | ECG_ITS ---
Test Reason : ryhm changes ? Blood Pressure : / mmHG Vent. Rate : 103 BPM Atrial Rate : 103 BPM P-R Int : 122 ms QRS Dur : 094 ms QT Int : 380 ms P-R-T Axes : 038 024 028 degrees QTc Int : 497 ms Sinus tachycardia Minimal voltage criteria for LVH, may be normal variant ( Manning product ) Borderline ECG When compared with ECG of 14-SEP-2023 22:22, Sinus rhythm has replaced Atrial flutter Nonspecific T wave abnormality, improved in Inferior leads Referred By: Eduardo Rocha Electronically Signed By:CORBY CALZADA MD
[2023-09-15] MEDS: cefTRIAXone sodium 2 GM in 0.9 % Sodium Chloride 50 ML IV (00:06)
[2023-09-15] MEDS: 0.9 % Sodium Chloride 2,993.7 ML 2993.7 ML IV (00:06)
[2023-09-15 00:12] LABS: C Reactive Protein 19.88 mg/dL (< or = 0.50)
[2023-09-15] MEDS: Azithromycin 500 MG in 0.9 % Sodium Chloride 250 ML 125 MG IV ×2 (00:21→22:51)
[2023-09-15 01:02] LABS: Reflex Lactate? Lactic Acid Added
[2023-09-15 01:57] LABS: ~Lactic Acid-LAB USE ONLY 2.7 mmol/L (0.5-2.0)
[2023-09-15] MEDS: metroNIDAZOLE/NS 500 MG/100 ML PIGGYBACK 100 MG IV (02:21)
[2023-09-15 02:31] LABS: HCG Quantitative < 2 mIU/mL
--- NOTE | 2023-09-15 02:39 | P.HPHOSP_ITS ---
History of Present Illness Date of Service: 09/15/23 Chief Complaint: Cough This is a 58-year-old female with pertinent history of mood disorder, hypothyroidism, hypertension, insulin-dependent diabetes mellitus, gastroesophageal reflux disease, mood disorder, DINA on CPAP who presents to the emergency department for evaluation of cough and fever. Patient states the symptoms started 2 days prior to presentation. Was seen in the ER 1 day prior to presentation and discharged on p.o. antibiotics. Patient continued to have symptoms including fever. Ulcer in episode where she tried to get up, had an episode of dizziness and lightheadedness and fell. Did not pass out. No chest pain or palpitations. No rhythmic jerking movement of extremities. No coughing or choking with food. Admits chills along with fever. No chest discomfort, palpitations, abdominal pain or changes in urinary or bowel habits. The emergency department, patient was found to be septic and imaging concerning for right-sided pneumonia. Review of Systems 2 Constitutional: Constitutional: Reports chills, Reports fatigue, Reports fever(s), Reports lethargy, Reports malaise, Reports poor appetite and Reports weakness ENT: Reports dizziness Respiratory: Respiratory: Reports cough Gastrointestinal: Gastrointestinal: Reports no additional gastrointestinal complaints Genitourinary: Genitourinary: Reports no additional female genitourinary complaints Neurologic: Reports dizziness and Reports weakness Endocrine: Endocrine: Reports fatigue [facility] Medical History Coarse tremors Bleeding hemorrhoids Hyperlipidemia Dental crowns present Bilateral pneumonia Respiratory failure Hypothyroidism Paranoia (psychosis) Stress incontinence Insomnia Anxiety Obstructive sleep apnea on CPAP Scoliosis of thoracolumbar spine Morbid obesity Chronic pain syndrome Sacroiliitis Inappropriate sinus tachycardia GERD (gastroesophageal reflux disease) 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 due to insulin MCFP (current) use of insulin Gastroparesis 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, uncontrolled Anemia Hemorrhoids Migraine Asthma Patellofemoral arthritis Patella-femoral syndrome Lumbar spondylosis Fibromyalgia Tubular adenoma Family history of colon cancer Vitamin D deficiency Dyslipidemia Genu valgum Low back pain Palpitations Chest pain HTN (hypertension) Family History Father Stomach cancer Mother Heart disease HTN (hypertension) Diabetes Son No problems noted. Paternal Aunt Stomach cancer Sister Stomach cancer Sister Uterine cancer Surgical History Status post hemorrhoidectomy History of hemorrhoidectomy (~09/09/22) History of surgery Hx of section H/O esophagogastroduodenoscopy History of colonoscopy History of arthroscopy of right knee History of bilateral carpal tunnel release History of bladder surgery History of tubal ligation Hx of tonsillectomy Social History Household Members: Family Household Members Other:: adult son Housing: Apartment Are you a primary primary care sales representative to a significant other at home: No Do you presently have visiting nurse or other home services: Yes ([employer] daily) Alcohol intake: never Patient Tobacco Use Status: Never used Tobacco Second Hand Smoke Exposure: No Use of substances other than those prescribed or required for medical reasons: No Advance Directives: No Advance Directives Information Provided: Yes Do you have a plan to hurt others: No Plan Patient : Yes service: No Current occupational status: disabled Current occupation: lt handed Sexual orientation: Straight/Heterosexual Gender identity: Female Meds Allergies Allergy/AdvReac Type Severity Reaction Status Date / Time No Known Allergies Allergy Verified 09/14/23 22:15 [No Known Allergies*] Active Medications: Current Medications Acetaminophen (Acetaminophen 325 Mg Tablet) 650 mg PO Q6H PRN PRN Reason: Pain, Mild (Pain Scale 1-3), fever or headache Acetaminophen (Acetaminophen Supp 650 Mg Supp.Rect) 650 mg PA Q6H PRN PRN Reason: Pain, Mild (Pain Scale 1-3), fever or headache Calcium Carbonate (Calcium Carbonate 750 Mg Tab.Chew) 750 mg PO Q4H PRN PRN Reason: Heartburn Enoxaparin Sodium (Enoxaparin Sodium 40 Mg/0.4 Ml Syringe) 40 mg SUBCUT Q24H KELSY Metronidazole (Flagyl) 500 mg in 100 mls @ 100 mls/hr IV ONCE ONE Stop: 09/15/23 03:00 Last Admin: 09/15/23 02:21 Dose: 100 mls/hr Ceftriaxone Sodium 1 gm/ (Sodium Chloride) 50 mls @ 100 mls/hr IV Q24H KELSY Azithromycin 500 mg/ Sodium (Chloride) 250 mls @ 125 mls/hr IV Q24H [facility] Magnesium Hydroxide (Milk Of Magnesia 30 Ml Oral.Susp) 30 ml PO DAILY PRN PRN Reason: Constipation Melatonin (Melatonin 3 Mg Tablet) 6 mg PO BEDTIME PRN PRN Reason: Insomnia Ondansetron HCl (Ondansetron Hcl 4 Mg/2 Ml Vial) 4 mg IVPUSH Q8H PRN PRN Reason: Nausea and Vomiting Sodium Chloride (0.9 % Sodium Chloride Flush 3 Ml Syringe) 3 ml IVFLUSH QSHIFT [facility] Home Medications ?Medication ?Instructions ?Recorded ?Confirmed ?Last Taken ?Type clonidine HCl 0.1 mg tablet 0.1 mg PO BEDTIME PRN Anxiety 11/30/19 06/26/23 06/12/23 History ferrous sulfate 325 mg (65 mg 325 mg PO Q OTHER DAY 11/30/19 06/26/23 09/12/22 History iron) tablet rosuvastatin 20 mg tablet (Crestor) 20 mg PO BEDTIME 11/30/19 06/26/23 09/12/22 History thiamine HCl (vitamin B1) 100 mg 100 mg PO DAILY 11/30/19 06/26/23 09/12/22 History tablet aspirin 81 mg tablet,delayed 81 mg PO DAILY 01/01/21 06/26/23 09/12/22 History release cyanocobalamin (vitamin B-12) 1,000 mcg IM [id number] 01/01/21 06/26/23 1 Month Ago History 1,000 mcg/mL injection solution ~08/14/22 clonazepam 1 mg tablet 1 mg PO TID PRN Anxiety 05/07/21 06/26/23 09/09/22 History omeprazole 20 mg capsule,delayed 20 mg PO DAILY@0630 05/07/21 06/26/23 09/12/22 History release valsartan 160 mg tablet 160 mg PO DAILY 05/07/21 06/26/23 06/12/23 History cholecalciferol (vitamin D3) 50 50 mcg PO DAILY 07/12/21 06/26/23 09/12/22 History mcg (2,000 unit) capsule docusate sodium 100 mg capsule 100 mg PO BID 09/26/21 06/26/23 09/12/22 History levothyroxine 125 mcg tablet 1 tab PO DAILY@0600 10/23/21 06/26/2306/11/24 History nortriptyline 50 mg capsule 1 cap PO BEDTIME 10/23/21 06/26/23 09/12/22 History albuterol sulfate 2.5 mg/3 mL 2.5 mg inhalation Q4H PRN Wheezing 12/04/21 06/26/23 Unknown History (0.083 %) solution for nebulization aripiprazole 2 mg tablet 2 mg PO DAILY 09/13/22 06/26/23 09/12/22 History oxybutynin chloride 10 mg 10 mg PO DAILY 09/13/22 06/26/23 09/12/22 History tablet,extended release 24 hr fluticasone furoate 200 1 inh inhalation DAILY 08/25/23 Unknown History mcg/actuation blister powder for inhalation (Arnuity Ellipta) Physical Exam 2 Vital Signs and Narrative: Vital Signs: Last Vital Signs Temp 99.2 F 09/15/23 02:26 Pulse 108 H 09/15/23 02:26 Resp 26 H 09/15/23 02:26 BP 158/77 H 09/15/23 02:26 Pulse Ox 97 09/15/23 02:26 O2 Del Method Nasal Cannula 09/15/23 02:26 O2 Flow Rate 2 09/15/23 02:26 Oxygen Flow Rate 3 09/14/23 22:29 BMI result Body Mass Index 40.2 Middle-aged female lying in bed in no distress Neck supple, no JVD Tachycardic with regular rhythm, S1-S2 heard Diminished breath sounds with that is rather crackles and tachypnea Abdomen soft nontender, no guarding, no rigidity Patient is awake, alert and oriented to self, place, time and person ; no focal motor deficit Psych: Normal mood Results Labs 09/14/23 22:56 09/14/23 22:54 Labs: Laboratory Results - last 24 hr 09/14/23 09/14/23 09/14/23 22:54 22:56 22:59 MCV 85.2 MCH 26.6 L MCHC 31.3 RDW 14.9 Plt Count 250 MPV 10.1 Immature Gran % (Auto) 0.9 H Neut % (Auto) 77.2 H Lymph % (Auto) 16.1 L [place] % (Auto) 5.4 Eos % (Auto) 0.1 Baso % (Auto) 0.3 Lymph # (Auto) 2.4 [place] # (Auto) 0.8 Eos # (Auto) 0.0 Baso # (Auto) 0.0 Abs Immat Gran (auto) 0.14 H Absolute Neuts (auto) 11.5 H Absolute Nucleated RBC 0.000 Nucleated RBC % (auto) 0.0 VBG pH 7.43 VBG pCO2 37 VBG pO2 38 VBG HCO3 25 VBG O2 Saturation 59.0 VBG Base Excess 1.3 Anion Gap 19 Estim Creat Clear Calc 83.6 Estimated GFR > 60 Random Glucose 245 H Lactic Acid 3.8 H* Lactic Acid F/U @ 2Hr Calcium 9.5 Total Bilirubin 0.8 AST 17 ALT 8 Alkaline Phosphatase 132 H Troponin I High Sens 4.1 D C-Reactive Protein 19.88 H Total Protein 8.0 Albumin 4.0 Beta HCG, Quant < 2 09/15/23 01:27 MCV MCH MCHC RDW Plt Count MPV Immature Gran % (Auto) Neut % (Auto) Lymph % (Auto) [place] % (Auto) Eos % (Auto) Baso % (Auto) Lymph # (Auto) [place] # (Auto) Eos # (Auto) Baso # (Auto) Abs Immat Gran (auto) Absolute Neuts (auto) Absolute Nucleated RBC Nucleated RBC % (auto) VBG pH VBG pCO2 VBG pO2 VBG HCO3 VBG O2 Saturation VBG Base Excess Anion Gap Estim Creat Clear Calc Estimated GFR Random Glucose Lactic Acid Lactic Acid F/U @ 2Hr 2.7 H* Calcium Total Bilirubin AST ALT Alkaline Phosphatase Troponin I High Sens C-Reactive Protein Total Protein Albumin Beta HCG, Quant Imaging Radiologist's Impressions: Impressions Chest X-Ray 09/14/23 23:08 IMPRESSION: Worsening pulmonary aeration with increased consolidative airspace opacity in the right lower lung field concerning for pneumonia. Recommend close attention on follow-up to ensure resolution after treatment. Cervical Spine CT 09/15/23 00:35 IMPRESSION: 1. No acute fracture or dislocation. 2. Degenerative disc changes C4-C5 to C6-C7 disc levels with mild spinal canal narrowing. Fleischner guidelines were followed. Assessment and Plan (1) Pneumonia: Status: Acute Plan This is a 58-year-old female with pertinent history of mood disorder, hypothyroidism, hypertension, insulin-dependent diabetes mellitus, gastroesophageal reflux disease, mood disorder, DINA on CPAP who presents to the emergency department for evaluation of cough and fever. #. Acute hypoxemic respiratory failure due to Sepsis in the setting of right- sided pneumonia: Will admit patient with supplemental oxygen. Resuscitated with IV crystalloids. Initiating empiric IV ceftriaxone and azithromycin. Obtain sputum culture. Lactic acid and blood culture obtained #. Orthostatic presyncope due to above. Repeat orthostatics in a.m.. Patient received IV crystalloids in the ER #. Acute lactic acidosis due to sepsis: Trended down with fluid resuscitation #. Insulin-dependent diabetes mellitus with hyperglycemia: Initiating basal plus insulin regimen #. Obesity: Counseled regarding diet and exercise #. Hypertension: Continue home antihypertensives #. Gastroesophageal reflux disease: On PPI #. Mood disorder: Continue home stabilizers #. DINA: Continue CPAP at bedtime Med rec pending DVT prophylaxis: Lovenox Full code Admit as inpatient and will require two night minimum hospital stay for supplemental oxygen, IV antibiotics (as above), which is not possible in a lesser acute setting. Quality Stroke Does the patient have a stroke diagnosis?: No VTE Prior VTE?: No VTE Risk Level:: Medical - moderate - high VTE Device Contraindication: Treatment Not Indicated VTE Drug Contraindication: N/A - Med Ordered
[2023-09-15] MEDS: Acetaminophen 325 MG TABLET 650 MG PO ×2 (03:14→17:44)
[2023-09-15] MEDS: Insulin Glargine,Hum.rec.anlog 100 UNIT/ML 10 ML VIAL 40 UNIT SUBCUT ×2 (03:15→21:15)
[2023-09-15 03:30] LABS: Reflex Lactate? 2 Y
[2023-09-15 04:11] LABS: ~Lactic Acid-LAB USE ONLY 1.9 mmol/L (0.5-2.0)
[2023-09-15 05:32] LABS: MANUAL DIFF FLAG NO
[2023-09-15 05:34] LABS: Basophils Percent Auto 0.3 % (0-2); Hematocrit 35.8 % (37.0-47.0); Hemoglobin 11.2 g/dl (12.0-16.0); Imm Gran Abs Auto 0.07 X10*3/uL (0.00-0.03); Imm Gran Pct Auto 0.6 % (0.0-0.4); Lymphocytes Absolute Auto 2.6 X10*3/uL (1.2-4.9); Lymphocytes Percent Auto 21.8 % (20-40); Mean Corpuscular HGB Conc 31.3 g/dl (31.0-35.0); Mean Corpuscular Hemoglobin 26.3 pg (27.0-33.0); Mean Platelet Volume 10.5 fL (9.4-12.3); Neutrophils Absolute Auto 8.2 x10*3/uL (2.0-8.3); Neutrophils Percent Auto 69.3 % (45-73); Platelet Count 208 X10*3/uL (160-400); Red Blood Count 4.26 X10*6/uL (4.20-5.50); White Blood Count 11.8 X10*3/uL (4.8-10.8)
[2023-09-15 06:09] LABS: Anion Gap 17 (12-20); Blood Urea Nitrogen 7 mg/dL (9-16); Calcium 8.4 mg/dL (8.4-10.2); Carbon Dioxide 24 mmol/L (22-29); Chloride 105 mmol/L (96-108); Creatinine Clr Calc Pharmacy 103.5; Estimated Glomerular Filt Rate > 60; Glucose Random 164 mg/dL (60-115); Potassium 2.7 mmol/L (3.3-5.1); Sodium 143 mmol/L (135-145)
[2023-09-15] MEDS: Potassium Chloride Packet 20 MEQ PACKET 40 MEQ PO (06:38)
--- NOTE | 2023-09-15 06:45 | PC.NURSE ---
pt from home, with a fall, she was here on Thursday, with pnumonia. Pt was a septic alert with a lactic of 3.8. Pt received 3 liter, cefitraxone, azithromax. She has 20 in RAC. [place] speaking,
[2023-09-15] MEDS: ondansetron HCL 4 MG/2 ML VIAL IVPUSH (07:17)
[2023-09-15 07:40] LABS: Glucose, Whole Blood 178 mg/dL (60-115)
--- NOTE | 2023-09-15 08:09 | PHA.MEDREC ---
Pharmacy Consult ? Medication Reconciliation Pharmacy has completed the medication reconciliation. Spoke with patient at bedside with help from equity analyst services. She was able to recall most of her medications and confirmed that she takes 50 units of her insulin twice a day, she does take both the 50mg and 75mg nortriptyline and her current dose of mounjaro is 2.5mg. Last injection of B-12 was last month and last injection of Mounjaro was Thursday. She stated she takes the Arnuity inhaler and the spiriva, though the Airduo was on the fill history. Did not seem to have filled or started the Augmentin, doxycycline, or Benzonatate that were prescribed here on her ER Discharge packet from 09/12.
[2023-09-15 08:18] LABS: Magnesium 1.4 mg/dL (1.6-2.6)
[2023-09-15] MEDS: Magnesium Sulfate/H2O 2 GM/50 ML PIGGYBACK IV (08:49)
[2023-09-15] MEDS: Potassium Chloride/H20 10 MEQ/100 ML PIGGYBACK 100 MEQ IV (08:49)
[2023-09-15] MEDS: Enoxaparin Sodium 40 MG/0.4 ML SYRINGE SUBCUT (08:56)
--- NOTE | 2023-09-15 08:56 | P.PNIM_ITS ---
Subjective Subjective Date of Service: 09/15/23 Interval History: follow-up on acute hypoxic respiratory failure related to pneumonia. Interval history: She is still complaining about shortness of breath oxygen saturation is 96% on 2 L Physical Exam 2 Vital Signs: Vital Signs: Last Vital Signs Temp 99.2 F 09/15/23 02:44 Pulse 108 H 09/15/23 02:44 Resp 30 H 09/15/23 02:44 BP 166/71 H 09/15/23 02:44 Pulse Ox 98 09/15/23 02:44 O2 Del Method Nasal Cannula 09/15/23 02:44 O2 Flow Rate 2 09/15/23 02:44 Oxygen Flow Rate 3 09/14/23 22:29 BMI result Body Mass Index 40.2 Const: Other: General: AO X 3, no acute distress, diminished air entry [place] Resp: CTA bilateral CVS: S1,S2,RRR GI: +BS, NT, no distention Skin: No rash Neuro: motor grossly intact Psych: appropriate affect Objective Data Active Medications Acetaminophen (Acetaminophen 325 Mg Tablet) 650 mg PO Q6H PRN PRN Reason: Pain, Mild (Pain Scale 1-3), fever or headache Acetaminophen (Acetaminophen Supp 650 Mg Supp.Rect) 650 mg DE Q6H PRN PRN Reason: Pain, Mild (Pain Scale 1-3), fever or headache Calcium Carbonate (Calcium Carbonate 750 Mg Tab.Chew) 750 mg PO Q4H PRN PRN Reason: Heartburn Enoxaparin Sodium (Enoxaparin Sodium 40 Mg/0.4 Ml Syringe) 40 mg SUBCUT Q24H KELSY Glucose (Glucose Gel 15 Gm Gel..Gram.) 15 gm PO Q15M PRN; Protocol PRN Reason: per 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 Standing Ord. Ceftriaxone Sodium 1 gm/ (Sodium Chloride) 50 mls @ 100 mls/hr IV Q24H KELSY Azithromycin 500 mg/ Sodium (Chloride) 250 mls @ 125 mls/hr IV Q24H KELSY Dextrose (D10) 250 mls @ 750 mls/hr IV Q15M PRN; Protocol PRN Reason: per 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 Standing Ord. Magnesium Sulfate (Magnesium Sulfate/H2o) 2 gm in 50 mls @ 25 mls/hr IV ONCE ONE Stop: 09/15/23 10:17 Potassium Chloride (Potassium Chloride/H20) 10 meq in 100 mls @ 100 mls/hr IV ONCE ONE Stop: 09/15/23 09:33 Insulin Human Lispro (Insulin Lispro 100 Unit/Ml 3 Ml Vial) 0 unit SUBCUT QIDACHS [facility]; Protocol Magnesium Hydroxide (Milk Of Magnesia 30 Ml Oral.Susp) 30 ml PO DAILY PRN PRN Reason: Constipation Magnesium Oxide (Magnesium Oxide 400 Mg Tablet) [facility] Melatonin (Melatonin 3 Mg Tablet) 6 mg PO BEDTIME PRN PRN Reason: Insomnia Ondansetron HCl (Ondansetron Hcl 4 Mg/2 Ml Vial) 4 mg IVPUSH Q8H PRN PRN Reason: Nausea and Vomiting Last Admin: 09/15/23 07:17 Dose: 4 mg Documented By: TYRONE Sodium Chloride (0.9 % Sodium Chloride Flush 3 Ml Syringe) 3 ml IVFLUSH QSHIFT [facility] Labs 09/15/23 04:46 09/15/23 09:04 Labs: Laboratory Results - last 24 hr 09/14/23 09/14/23 09/14/23 22:54 22:56 22:59 MCV 85.2 MCH 26.6 L MCHC 31.3 RDW 14.9 Plt Count 250 MPV 10.1 Immature Gran % (Auto) 0.9 H Neut % (Auto) 77.2 H Lymph % (Auto) 16.1 L [place] % (Auto) 5.4 Eos % (Auto) 0.1 Baso % (Auto) 0.3 Lymph # (Auto) 2.4 [place] # (Auto) 0.8 Eos # (Auto) 0.0 Baso # (Auto) 0.0 Abs Immat Gran (auto) 0.14 H Absolute Neuts (auto) 11.5 H Absolute Nucleated RBC 0.000 Nucleated RBC % (auto) 0.0 VBG pH 7.43 VBG pCO2 37 VBG pO2 38 VBG HCO3 25 VBG O2 Saturation 59.0 VBG Base Excess 1.3 Anion Gap 19 Estim Creat Clear Calc 83.6 Estimated GFR > 60 POC Glucose Random Glucose 245 H Lactic Acid 3.8 H* Lactic Acid F/U @ 2Hr Lactic Acid F/U @ 4Hr Calcium 9.5 Magnesium Total Bilirubin 0.8 AST 17 ALT 8 Alkaline Phosphatase 132 H Troponin I High Sens 4.1 D C-Reactive Protein 19.88 H Total Protein 8.0 Albumin 4.0 Beta HCG, Quant < 2 09/15/23 09/15/23 09/15/23 01:27 03:58 04:46 MCV 84.0 MCH 26.3 L MCHC 31.3 RDW 15.0 Plt Count 208 MPV 10.5 Immature Gran % (Auto) 0.6 H Neut % (Auto) 69.3 Lymph % (Auto) 21.8 [place] % (Auto) 8.0 Eos % (Auto) 0.0 Baso % (Auto) 0.3 Lymph # (Auto) 2.6 [place] # (Auto) 1.0 Eos # (Auto) 0.0 Baso # (Auto) 0.0 Abs Immat Gran (auto) 0.07 H Absolute Neuts (auto) 8.2 Absolute Nucleated RBC 0.000 Nucleated RBC % (auto) 0.0 VBG pH VBG pCO2 VBG pO2 VBG HCO3 VBG O2 Saturation VBG Base Excess Anion Gap 17 Estim Creat Clear Calc 103.5 Estimated GFR > 60 POC Glucose Random Glucose 164 H Lactic Acid Lactic Acid F/U @ 2Hr 2.7 H* Lactic Acid F/U @ 4Hr 1.9 Calcium 8.4 D Magnesium 1.4 L* Total Bilirubin AST ALT Alkaline Phosphatase Troponin I High Sens C-Reactive Protein Total Protein Albumin Beta HCG, Quant 09/15/23 07:29 MCV MCH MCHC RDW Plt Count MPV Immature Gran % (Auto) Neut % (Auto) Lymph % (Auto) [place] % (Auto) Eos % (Auto) Baso % (Auto) Lymph # (Auto) [place] # (Auto) Eos # (Auto) Baso # (Auto) Abs Immat Gran (auto) Absolute Neuts (auto) Absolute Nucleated RBC Nucleated RBC % (auto) VBG pH VBG pCO2 VBG pO2 VBG HCO3 VBG O2 Saturation VBG Base Excess Anion Gap Estim Creat Clear Calc Estimated GFR POC Glucose 178 H Random Glucose Lactic Acid Lactic Acid F/U @ 2Hr Lactic Acid F/U @ 4Hr Calcium Magnesium Total Bilirubin AST ALT Alkaline Phosphatase Troponin I High Sens C-Reactive Protein Total Protein Albumin Beta HCG, Quant Assessment and Plan (1) Pneumonia: Status: Acute Plan 58-year-old female with pertinent history of mood disorder, hypothyroidism, hypertension, insulin-dependent diabetes mellitus, gastroesophageal reflux disease, mood disorder, DINA on CPAP who presents to the emergency department for evaluation of cough and fever. Acute hypoxemic respiratory failure due to Sepsis d/t PNA, component of DINA and ? COPD exacerbation -Continue IV Abx (Ceftriaxone and Azithro) -get ABG -Pulmonology consult. -CPAP at night and PRN during the day Acute Hypokalemia K of 2.7, given IV and PO k, replace magenesemia Hypomagnesemia--1.4, IV and PO mag, especially given some rythm changes--repeat labs later today Orthostatic presyncope hydrated and repeat Acute lactic acidosis due to sepsis: has trended down from fluid Insulin-dependent diabetes mellitus with hyperglycemia She take regular insulin 50 bid at home, she received 40 units of Lantus at 3, will continue Lantus at 40 daily, and sliding scale and addtional insulin as needed, also can resume metformin. I am not sure why she's not long acting insulin. check hemoglobin A1c Class 3 Obesity: Counseled regarding diet and exercise Hypertension: continue clonidine, propranolol and Valsartan Gastroesophageal reflux disease: Prilosec Peripheral neuropathy--continue gabapentin Hypothyroidism--continue levothyroxine Mood disorder: continue clonidine, Pamelor, abilify DINA: Continue CPAP at bedtime and PRN during the day Change status to tele pt DVT prophylaxis: Lovenox Full code need for inpatient: IV Abx for PNA w/ acute hypoxic respiratory failure Quality Stroke Does the patient have a stroke diagnosis?: No VTE Prior VTE?: No VTE Risk Level:: Medical - moderate - high VTE Device Contraindication: Treatment Not Indicated VTE Drug Contraindication: N/A - Med Ordered
[2023-09-15] MEDS: Magnesium Oxide 400 MG TABLET PO ×2 (08:58→17:44)
--- NOTE | 2023-09-15 09:16 | PC.NURSE ---
Insulin administration delayed d/t delay in pt breakfast tray. Kitchen notified, will give insulin when pt has breakfast tray.
[2023-09-15] MEDS: Insulin Lispro 100 UNIT/ML 3 ML VIAL SUBCUT ×4 (09:31→21:14)
[2023-09-15 09:33] LABS: Anion Gap 16 (12-20); Carbon Dioxide 25 mmol/L (22-29); Chloride 106 mmol/L (96-108); Potassium 3.1 mmol/L (3.3-5.1); Sodium 144 mmol/L (135-145)
[2023-09-15] MEDS: Cholecalciferol (Vitamin D3) 25 MCG TABLET 50 MCG PO (10:10)
[2023-09-15] MEDS: Omeprazole 20 MG CAPSULE.DR PO (10:10)
[2023-09-15] MEDS: Aspirin Enteric Coated 81 MG TABLET.DR PO (10:10)
[2023-09-15] MEDS: Gabapentin 400 MG CAPSULE PO ×3 (10:10→21:08)
[2023-09-15] MEDS: Levothyroxine Sodium 125 MCG TABLET PO (10:11)
[2023-09-15] MEDS: Furosemide 20 MG TABLET PO (10:11)
[2023-09-15 10:41] LABS: Estimated Average Glucose 151 mg/dL; Hemoglobin A1C 149.8093 umol/L; Hemoglobin A1c % 6.9 % (<6.0)
[2023-09-15 10:52] LABS: Influenza A PCR NEGATIVE (Negative); Influenza B PCR NEGATIVE (Negative); Resp Syncy Virus RNA Qual PCR NEGATIVE (Negative); SARS COV2 PCR INHOUSE NEGATIVE (Negative)
[2023-09-15] MEDS: Acetaminophen Supp 650 MG SUPP.RECT PR (10:56)
[2023-09-15] MEDS: Docusate Sodium 100 MG CAPSULE PO ×2 (11:03→21:09)
[2023-09-15] MEDS: Valsartan 160 MG TABLET PO (11:03)
[2023-09-15 11:08] LABS: Glucose, Whole Blood 220 mg/dL (60-115)
--- NOTE | 2023-09-15 11:09 | PC.NURSE ---
Addendum entered by Radha Lott 09/15/23 11:19: Pt in NSR at this time Original Note: Upon resuming care of pt at 0700, pt was resting in bed quietly. This RN was notified pt had a rhythm change ?torsades looking rhythm. Pt recent mag level was 1.4 and potassium 2.7. This RN went to room to assess pt, no chest pain noted. Pt stated she had abdominal pain/SOB but otherwise no chest pain. This RN made MD Rocha aware of possible rhythm change. EKG obtained, second IV line placed 20g left ac, mag and potassium replacement started. MD rocha came to bedside to assess pt. Plan for pt to go to tele floor instead of med surg. At this time pt resting in bed quietly, washed up and bed linens changed. Vital signs updated, pt had 100.0 oral temp [id number] rectal temp. Tylenol suppository given. Pt was nervous her blood sugar was low, 220 POC. Pt aware of ongoing plan of care, call sandoval within reach.
[2023-09-15] MEDS: Propranolol HCL 40 MG TABLET 80 MG PO ×2 (11:20→21:09)
[2023-09-15] MEDS: Thiamine HCL 100 MG TABLET PO (11:21)
[2023-09-15 14:12] LABS: Glucose, Whole Blood 215 mg/dL (60-115)
[2023-09-15] MEDS: 0.9 % Sodium Chloride Flush 3 ML SYRINGE IVFLUSH (17:02)
[2023-09-15 17:14] LABS: Anion Gap 16 (12-20); Carbon Dioxide 23 mmol/L (22-29); Chloride 106 mmol/L (96-108); Magnesium 2.1 mg/dL (1.6-2.6); Potassium 3.8 mmol/L (3.3-5.1); Sodium 141 mmol/L (135-145)
[2023-09-15 17:25] LABS: Glucose, Whole Blood 193 mg/dL (60-115)
[2023-09-15 19:36] LABS: Glucose, Whole Blood 192 mg/dL (60-115)
[2023-09-15] MEDS: Fluticasone Propionate 250 MCG BLST.W.DEV 1 PUFF INHALE (19:53)
[2023-09-15] MEDS: ARIPiprazole 15 MG TABLET PO (21:08)
[2023-09-15] MEDS: Atorvastatin Calcium 80 MG TABLET PO (21:08)
[2023-09-15] MEDS: Nortriptyline HCl 25 MG CAPSULE 75 MG PO (21:09)
[2023-09-15] MEDS: Nortriptyline HCl 25 MG CAPSULE 50 MG PO (21:09)
[2023-09-15] MEDS: metFORMIN HCl 1,000 MG TABLET 1000 MG PO (21:10)
[2023-09-15] MEDS: cefTRIAXone sodium 1 GM in 0.9 % Sodium Chloride 50 ML IV (21:15)
[2023-09-16] VITALS (9 sets, daily range): BP systolic 104–141; BP diastolic 56–70; PULSE 82–93; RESP 16–20; TEMP 36.3–36.9; O2SAT 92–97
[2023-09-16] MEDS: 0.9 % Sodium Chloride Flush 3 ML SYRINGE IVFLUSH ×4 (01:23→21:01)
[2023-09-16] MEDS: Levothyroxine Sodium 125 MCG TABLET PO (05:56)
[2023-09-16] MEDS: Omeprazole 20 MG CAPSULE.DR PO (05:56)
[2023-09-16 06:24] LABS: Hematocrit 35.2 % (37.0-47.0); Hemoglobin 10.5 g/dl (12.0-16.0); Mean Corpuscular HGB Conc 29.8 g/dl (31.0-35.0); Mean Corpuscular Hemoglobin 25.9 pg (27.0-33.0); Mean Corpuscular Volume 86.7 fL (80.0-98.0); Mean Platelet Volume 10.7 fL (9.4-12.3); Platelet Count 209 X10*3/uL (160-400); Red Blood Count 4.06 X10*6/uL (4.20-5.50); Red Cell Distribution Width 15.1 % (11.0-16.0); White Blood Count 9.4 X10*3/uL (4.8-10.8)
[2023-09-16 06:39] LABS: Anion Gap 14 (12-20); Blood Urea Nitrogen 6 mg/dL (9-16); Calcium 8.6 mg/dL (8.4-10.2); Carbon Dioxide 27 mmol/L (22-29); Chloride 105 mmol/L (96-108); Creatinine Clr Calc Pharmacy 123.8; Estimated Glomerular Filt Rate > 60; Glucose Random 160 mg/dL (60-115); Magnesium 1.9 mg/dL (1.6-2.6); Potassium 3.5 mmol/L (3.3-5.1); Sodium 142 mmol/L (135-145)
[2023-09-16] MEDS: Tiotropium Bromide 2.5 mcg 1 PUFF/2.5 MCG MIST.INHAL 2 PUFF INHALE (07:38)
[2023-09-16] MEDS: Fluticasone Propionate 250 MCG BLST.W.DEV 1 PUFF INHALE ×2 (07:38→19:00)
[2023-09-16 07:51] LABS: Glucose, Whole Blood 153 mg/dL (60-115)
[2023-09-16] MEDS: Propranolol HCL 40 MG TABLET 80 MG PO ×2 (08:19→20:59)
[2023-09-16] MEDS: metFORMIN HCl 1,000 MG TABLET 1000 MG PO ×2 (08:19→20:58)
[2023-09-16] MEDS: Gabapentin 400 MG CAPSULE PO ×3 (08:19→20:59)
[2023-09-16] MEDS: Valsartan 160 MG TABLET PO (08:19)
[2023-09-16] MEDS: Magnesium Oxide 400 MG TABLET PO ×2 (08:19→15:39)
[2023-09-16] MEDS: Ferrous Sulfate 324 MG TABLET.DR PO (08:19)
[2023-09-16] MEDS: Thiamine HCL 100 MG TABLET PO (08:19)
[2023-09-16] MEDS: Furosemide 20 MG TABLET PO (08:19)
[2023-09-16] MEDS: Cholecalciferol (Vitamin D3) 25 MCG TABLET 50 MCG PO (08:19)
[2023-09-16] MEDS: Insulin Lispro 100 UNIT/ML 3 ML VIAL SUBCUT ×2 (08:20→12:07)
[2023-09-16] MEDS: Docusate Sodium 100 MG CAPSULE PO (08:20)
[2023-09-16] MEDS: Milk of Magnesia 30 ML ORAL.SUSP PO (08:20)
[2023-09-16] MEDS: Lidocaine 4 % Patch ADH..PATCH 1 PATCH TRANSDERMA (08:20)
[2023-09-16] MEDS: Enoxaparin Sodium 40 MG/0.4 ML SYRINGE SUBCUT (08:20)
[2023-09-16] MEDS: Acetaminophen 325 MG TABLET 650 MG PO ×2 (08:22→21:00)
[2023-09-16] MEDS: Aspirin Enteric Coated 81 MG TABLET.DR PO (08:33)
--- NOTE | 2023-09-16 09:02 | P.CONPL_ITS ---
History of Present Illness History of Present Illness Consult date: 09/16/23 Chief complaint: Fever AND Cough Narrative: This is an inpt pulmonary consultation. This is a 58-year-old female with pertinent history of mood disorder, hypothyroidism, hypertension, insulin- dependent diabetes mellitus, gastroesophageal reflux disease, mood disorder, DINA on CPAP who presents to the emergency department for evaluation of cough and fever. Patient states the symptoms started 2 days prior to presentation. Was seen in the ER 1 day prior to presentation and discharged on p.o. antibiotics. Patient continued to have symptoms including fever. Ulcer in episode where she tried to get up, had an episode of dizziness and lightheadedness and fell. Did not pass out. No chest pain or palpitations. She came back to the ED and had a repeat CXR. I personally reviewed by me demonstrating LLL opacity. Review of Systems 2 Constitutional: Constitutional: Reports chills, Reports fatigue, Reports fever(s), Reports lethargy, Reports malaise, Reports poor appetite and Reports weakness Eyes: Eyes: Reports no additional eye complaints ENT: Reports dizziness Cardiovascular: Cardiovascular: Denies chest pain Respiratory: Respiratory: Reports cough Gastrointestinal: Gastrointestinal: Reports no additional gastrointestinal complaints Genitourinary: Genitourinary: Reports no additional female genitourinary complaints Musculoskeletal: Musculoskeletal: Reports no additional musculoskeletal complaints Neurologic: Reports dizziness and Reports weakness Endocrine: Endocrine: Reports fatigue Hematologic/Lymphatic: Hematologic/Lymphatic: Denies lymphadenopathy PMFSH Past Medical History Medical History Coarse tremors Bleeding hemorrhoids Hyperlipidemia Dental crowns present Bilateral pneumonia Respiratory failure Hypothyroidism Paranoia (psychosis) Stress incontinence Insomnia Anxiety Obstructive sleep apnea on CPAP Scoliosis of thoracolumbar spine Morbid obesity Chronic pain syndrome Sacroiliitis Inappropriate sinus tachycardia GERD (gastroesophageal reflux disease) 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 due to insulin halfway (current) use of insulin Gastroparesis 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, uncontrolled Anemia Hemorrhoids Migraine Asthma Patellofemoral arthritis Patella-femoral syndrome Lumbar spondylosis Fibromyalgia Tubular adenoma Family history of colon cancer Vitamin D deficiency Dyslipidemia Genu valgum Low back pain Palpitations Chest pain HTN (hypertension) Family History Family History Father Stomach cancer Mother Heart disease HTN (hypertension) Diabetes Son No problems noted. Paternal Aunt Stomach cancer Sister Stomach cancer Sister Uterine cancer Surgical History Surgical History Status post hemorrhoidectomy History of hemorrhoidectomy (~09/09/22) History of surgery Hx of section H/O esophagogastroduodenoscopy History of colonoscopy History of arthroscopy of right knee History of bilateral carpal tunnel release History of bladder surgery History of tubal ligation Hx of tonsillectomy Social History Social History Household Members: Family Household Members Other:: adult son Housing: Apartment Are you a primary coronary care unit nurse to a significant other at home: No Do you presently have visiting nurse or other home services: Yes ([employer] daily) Alcohol intake: never Patient Tobacco Use Status: Never used Tobacco Second Hand Smoke Exposure: No service: No Current occupational status: disabled Current occupation: lt handed Sexual orientation: Straight/Heterosexual Gender identity: Female Meds Allergies Allergy/AdvReac Type Severity Reaction Status Date / Time No Known Allergies Allergy Verified 09/14/23 22:15 [No Known Allergies*] Active Medications: Current Medications Acetaminophen (Acetaminophen 325 Mg Tablet) 650 mg PO Q6H PRN PRN Reason: Pain, Mild (Pain Scale 1-3), fever or headache Last Admin: 09/16/23 08:22 Dose: 650 mg Acetaminophen (Acetaminophen Supp 650 Mg Supp.Rect) 650 mg GA Q6H PRN PRN Reason: Pain, Mild (Pain Scale 1-3), fever or headache Last Admin: 09/15/23 10:56 Dose: 650 mg Aripiprazole (Aripiprazole 15 Mg Tablet) 15 mg PO BEDTIME [facility] Last Admin: 09/15/23 21:08 Dose: 15 mg Aspirin (Aspirin Enteric Coated 81 Mg Tablet.) 81 mg PO DAILY [facility] Last Admin: 09/16/23 08:33 Dose: 81 mg Atorvastatin Calcium (Atorvastatin Calcium 80 Mg Tablet) 80 mg PO BEDTIME [facility] Last Admin: 09/15/23 21:08 Dose: 80 mg Benzonatate (Benzonatate 100 Mg Capsule) 200 mg PO TID PRN PRN Reason: cough Calcium Carbonate (Calcium Carbonate 750 Mg Tab.Chew) 750 mg PO Q4H PRN PRN Reason: Heartburn Clonazepam (Clonazepam 1 Mg Tablet) 1 mg PO TID PRN PRN Reason: Anxiety Clonidine HCl (Clonidine Hcl 0.1 Mg Tablet) 0.1 mg PO BEDTIME PRN; Protocol PRN Reason: Anxiety Cyanocobalamin (Cyanocobalamin (Vitamin B-12) 1,000 Mcg/Ml Vial) 1,000 mcg IM Q60D [facility] Docusate Sodium (Docusate Sodium 100 Mg Capsule) 100 mg PO BID [facility] Last Admin: 09/16/23 08:20 Dose: 100 mg Enoxaparin Sodium (Enoxaparin Sodium 40 Mg/0.4 Ml Syringe) 40 mg SUBCUT Q24H [facility] Last Admin: 09/16/23 08:20 Dose: 40 mg Ferrous Sulfate (Ferrous Sulfate 324 Mg Tablet.Dr) 324 mg PO Q48H [facility] Last Admin: 09/16/23 08:19 Dose: 324 mg Fluticasone Propionate (Fluticasone Propionate 250 Mcg Blst.W.Dev) 1 puff INHALE RBID [facility] Last Admin: 09/16/23 07:38 Dose: 1 puff Furosemide (Furosemide 20 Mg Tablet) 20 mg PO DAILY [facility]; Protocol Last Admin: 09/16/23 08:19 Dose: 20 mg Gabapentin (Gabapentin 400 Mg Capsule) 400 mg PO TID [facility] Last Admin: 09/16/23 08:19 Dose: 400 mg Glucose (Glucose Gel 15 Gm Gel..Gram.) 15 gm PO Q15M PRN; Protocol PRN Reason: per 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 Standing Ord. Ceftriaxone Sodium 1 gm/ (Sodium Chloride) 50 mls @ 100 mls/hr IV Q24H [facility] Last Infusion: 09/15/23 22:02 Dose: Infused Azithromycin 500 mg/ Sodium (Chloride) 250 mls @ 125 mls/hr IV Q24H [facility] Last Infusion: 09/16/23 01:26 Dose: Infused Dextrose (D10) 250 mls @ 750 mls/hr IV Q15M PRN; Protocol PRN Reason: per 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 Standing Ord. Insulin Glargine (Insulin Glargine,Hum.Rec.Anlog 100 Unit/Ml 10 Ml Vial) 40 unit SUBCUT BEDTIME [facility] Last Admin: 09/15/23 21:15 Dose: 40 unit Insulin Human Lispro (Insulin Lispro 100 Unit/Ml 3 Ml Vial) 0 unit SUBCUT QIDACHS [facility]; Protocol Last Admin: 09/16/23 08:20 Dose: 2 unit Levothyroxine Sodium (Levothyroxine Sodium 125 Mcg Tablet) 125 mcg PO DAILY@0600 [facility] Last Admin: 09/16/23 05:56 Dose: 125 mcg Lidocaine (Lidocaine 4 % Patch Adh..Patch) 1 patch TRANSDERMA DAILY [facility] Last Admin: 09/16/23 08:20 Dose: 1 patch Magnesium Hydroxide (Milk Of Magnesia 30 Ml Oral.Susp) 30 ml PO DAILY PRN PRN Reason: Constipation Last Admin: 09/16/23 08:20 Dose: 30 ml Magnesium Oxide (Magnesium Oxide 400 Mg Tablet) 400 mg PO BIDPC [facility] Last Admin: 09/16/23 08:19 Dose: 400 mg Melatonin (Melatonin 3 Mg Tablet) 6 mg PO BEDTIME PRN PRN Reason: Insomnia Metformin HCl (Metformin Hcl 1,000 Mg Tablet) 1,000 mg PO BID [facility] Last Admin: 09/16/23 08:19 Dose: 1,000 mg Nortriptyline HCl (Nortriptyline Hcl 25 Mg Capsule) 50 mg PO BEDTIME [facility] Last Admin: 09/15/23 21:09 Dose: 50 mg Nortriptyline HCl (Nortriptyline Hcl 25 Mg Capsule) 75 mg PO BEDTIME [facility] Last Admin: 09/15/23 21:09 Dose: 75 mg Omeprazole (Omeprazole 20 Mg Capsule.Dr) 20 mg PO DAILY@0630 [facility] Last Admin: 09/16/23 05:56 Dose: 20 mg Ondansetron HCl (Ondansetron Hcl 4 Mg/2 Ml Vial) 4 mg IVPUSH Q8H PRN PRN Reason: Nausea and Vomiting Last Admin: 09/15/23 07:17 Dose: 4 mg Propranolol HCl (Propranolol Hcl 40 Mg Tablet) 80 mg PO BID [facility]; Protocol Last Admin: 09/16/23 08:19 Dose: 80 mg Sodium Chloride (0.9 % Sodium Chloride Flush 3 Ml Syringe) [facility] Last Admin: 09/16/23 08:32 Dose: 3 ml Thiamine HCl (Thiamine Hcl 100 Mg Tablet) 100 mg PO DAILY [facility] Last Admin: 09/16/23 08:19 Dose: 100 mg Tiotropium Yoder (Tiotropium Yoder 2.5 Mcg 1 Puff/2.5 Mcg Mist.Inhal) 2 puff INHALE RDAILY [facility] Last Admin: 09/16/23 07:38 Dose: 2 puff Valsartan (Valsartan 160 Mg Tablet) 160 mg PO DAILY [facility]; Protocol Last Admin: 09/16/23 08:19 Dose: 160 mg Vitamin D (Cholecalciferol (Vitamin D3) 25 Mcg Tablet) 50 mcg PO DAILY [facility] Last Admin: 09/16/23 08:19 Dose: 50 mcg Home Medications ?Medication ?Instructions ?Recorded ?Confirmed ?Last Taken ?Type clonidine HCl 0.1 mg tablet 0.1 mg PO BEDTIME PRN Anxiety 11/30/19 09/15/23 09/14/23 History ferrous sulfate 325 mg (65 mg 325 mg PO Q OTHER DAY 11/30/19 09/15/23 09/14/23 History iron) tablet rosuvastatin 20 mg tablet (Crestor) 20 mg PO BEDTIME 11/30/19 09/15/23 09/14/23 History thiamine HCl (vitamin B1) 100 mg 100 mg PO DAILY 11/30/19 09/15/23 09/14/23 History tablet aspirin 81 mg tablet,delayed 81 mg PO DAILY 01/01/21 09/15/23 09/14/23 History release cyanocobalamin (vitamin B-12) 1,000 mcg IM [id number] 01/01/21 09/15/23 08/01/23 History 1,000 mcg/mL injection solution clonazepam 1 mg tablet 1 mg PO TID PRN Anxiety 05/07/21 09/15/23 09/14/23 History omeprazole 20 mg capsule,delayed 20 mg PO DAILY@0630 05/07/21 09/15/23 09/14/23 History release valsartan 160 mg tablet 160 mg PO DAILY 05/07/21 09/15/23 09/14/23 History cholecalciferol (vitamin D3) 50 50 mcg PO DAILY 07/12/21 09/15/23 09/14/23 History mcg (2,000 unit) capsule docusate sodium 100 mg capsule 100 mg PO BID 09/26/21 09/15/23 09/14/23 History levothyroxine 125 mcg tablet 1 tab PO DAILY@0600 10/23/21 09/15/23 09/14/23 History nortriptyline 50 mg capsule 1 cap PO BEDTIME 10/23/21 09/15/23 09/14/23 History albuterol sulfate 2.5 mg/3 mL 2.5 mg inhalation Q4H PRN Wheezing 12/04/21 09/15/23 09/14/23 History (0.083 %) solution for nebulization fluticasone furoate 200 1 inh inhalation DAILY 08/25/23 09/15/23 09/14/23 History mcg/actuation blister powder for inhalation (Arnuity Ellipta) acetaminophen 650 mg 650 mg PO Q8H PRN mild pain 09/15/23 09/15/23 09/14/23 History tablet,extended release aripiprazole 15 mg tablet 15 mg PO BEDTIME 09/15/23 09/15/23 09/14/23 History insulin regular hum U-500 conc 500 50 unit subcut .twice a day 09/15/23 09/15/23 09/14/23 History unit/mL(3 mL) subcut pen (Humulin R U-500 (Conc) Insulin Kwikpen) lidocaine 5 % topical patch 1 patch transdermal DAILY 09/15/23 09/15/23 09/14/23 History melatonin 5 mg tablet 5 - 10 mg PO BEDTIME PRN Insomnia 09/15/23 09/15/23 09/14/23 History nortriptyline 75 mg capsule 75 mg PO BEDTIME 09/15/23 09/15/23 09/14/23 History tirzepatide 2.5 mg/0.5 mL 2.5 mg subcut QWEEK 09/15/23 09/15/23 09/14/23 History subcutaneous pen injector (Jeronimo) Physical Exam 2 Vital Signs: Vital Signs: Last Vital Signs Temp 97.3 F 09/16/23 08:00 Pulse 93 09/16/23 08:00 Resp 20 09/16/23 08:00 BP 129/69 09/16/23 08:00 Pulse Ox 96 09/16/23 08:00 O2 Del Method Nasal Cannula 09/16/23 08:00 O2 Flow Rate 2.5 09/16/23 08:00 Oxygen Flow Rate 3 09/14/23 22:29 BMI result Body Mass Index 40.2 Const: General: no acute distress and alert Nutritional Appearance: obese HEENT: Head: Yes atraumatic Eyes: General: appearance normal, both eyes and all related structures S clerae: sclerae normal EOM: EOMs intact bilaterally Neck: Neck: Yes supple Lymphatic: no lymphadenopathy noted Chest: Chest palpation & inspection: normal inspection of the chest Resp: Effort & Inspection: normal respiratory effort Auscultation: crackles on the right and diminished lung sounds Cardio: Rate: regular rate Rhythm: regular rhythm Heart sounds: S1 normal heart sound present, S2 normal heart sound present, no gallops, no murmurs and no rubs GI: Palpation (GI): Soft to palpation Skin: General skin exam: no rashes or lesions noted and other ( warm) Neuro: Motor exam (neuro): Tremors during motor activity present Extrem: General: No clubbing and No cyanosis Results Laboratory Findings 09/16/23 05:59 09/16/23 05:59 Abnormal lab findings: Abnormal Labs 09/14/23 09/14/23 09/15/23 22:54 22:56 01:27 WBC 14.9 H RBC Hgb Hct MCH 26.6 L MCHC Immature Gran % (Auto) 0.9 H Neut % (Auto) 77.2 H Lymph % (Auto) 16.1 L Abs Immat Gran (auto) 0.14 H Absolute Neuts (auto) 11.5 H Potassium BUN POC Glucose Random Glucose 245 H Hemoglobin A1c % Lactic Acid 3.8 H* Lactic Acid F/U @ 2Hr 2.7 H* Magnesium Alkaline Phosphatase 132 H C-Reactive Protein 19.88 H 09/15/23 09/15/23 09/15/23 04:46 07:29 09:04 WBC 11.8 H RBC Hgb 11.2 L Hct 35.8 L MCH 26.3 L MCHC Immature Gran % (Auto) 0.6 H Neut % (Auto) Lymph % (Auto) Abs Immat Gran (auto) 0.07 H Absolute Neuts (auto) Potassium 2.7 L* D 3.1 L BUN 7 L POC Glucose 178 H Random Glucose 164 H Hemoglobin A1c % 6.9 H Lactic Acid Lactic Acid F/U @ 2Hr Magnesium 1.4 L* Alkaline Phosphatase C-Reactive Protein 09/15/23 09/15/23 09/15/23 11:02 14:08 17:22 WBC RBC Hgb Hct MCH MCHC Immature Gran % (Auto) Neut % (Auto) Lymph % (Auto) Abs Immat Gran (auto) Absolute Neuts (auto) Potassium BUN POC Glucose 220 H 215 H 193 H Random Glucose Hemoglobin A1c % Lactic Acid Lactic Acid F/U @ 2Hr Magnesium Alkaline Phosphatase C-Reactive Protein 09/15/23 09/16/23 09/16/23 19:30 05:59 07:46 WBC RBC 4.06 L Hgb 10.5 L Hct 35.2 L MCH 25.9 L MCHC 29.8 L Immature Gran % (Auto) Neut % (Auto) Lymph % (Auto) Abs Immat Gran (auto) Absolute Neuts (auto) Potassium BUN 6 L POC Glucose 192 H 153 H Random Glucose 160 H Hemoglobin A1c % Lactic Acid Lactic Acid F/U @ 2Hr Magnesium Alkaline Phosphatase C-Reactive Protein Microbiology: Microbiology 09/14/23 23:20 Blood - Venous Blood Culture - Preliminary No growth after 24 hours. 09/14/23 22:58 Blood - Venous Blood Culture - Preliminary No growth after 24 hours. Assessment and Plan (1) Pneumonia: Qualifiers: Laterality: right Lung location: lower lobe of lung Pneumonia type: d ue to unspecified organism Qualified Code(s): J18.9 - Pneumonia, unspecified organism Status: Acute ?aspiration pneumonia (2) Acute respiratory failure: Qualifiers: Respiratory failure complication: hypoxia Qualified Code(s): J96.01 - Acute respiratory failure with hypoxia Status: Acute (3) Asthma: Qualifiers: Asthma complication type: uncomplicated Asthma persistence: persistent Asthma severity: moderate Qualified Code(s): J45.40 - Moderate persistent asthma, uncomplicated Status: Acute Plan Responding to antibiotics modified barium swallow oxygen to keep pox>90% continue respiratory therapy add mucinex OOB to recliner Procedures Date of Service Date of Service: 09/16/23
--- NOTE | 2023-09-16 09:29 | P.PNIM_ITS ---
Subjective Subjective Date of Service: 09/16/23 Interval History: follow-up on acute hypoxic respiratory failure related to pneumonia and sepsis Interval history: She still has some shortness of breath but overall, is doing better today Physical Exam 2 Vital Signs: Vital Signs: Last Vital Signs Temp 97.3 F 09/16/23 08:00 Pulse 93 09/16/23 08:00 Resp 20 09/16/23 08:00 BP 129/69 09/16/23 08:00 Pulse Ox 96 09/16/23 08:00 O2 Del Method Nasal Cannula 09/16/23 08:00 O2 Flow Rate 2.5 09/16/23 08:00 Oxygen Flow Rate 3 09/14/23 22:29 BMI result Body Mass Index 40.2 Const: Other: General: AO X 3, no acute distress, resp: diminised isrrael, no wheezes, no rales, nl wob CVS: S1,S2,RRR GI: +BS, NT, no distention Skin: No rash Neuro: motor grossly intact Psych: appropriate affect Objective Data Active Medications Acetaminophen (Acetaminophen 325 Mg Tablet) 650 mg PO Q6H PRN PRN Reason: Pain, Mild (Pain Scale 1-3), fever or headache Last Admin: 09/16/23 08:22 Dose: 650 mg Documented By: CAROLYNE Acetaminophen (Acetaminophen Supp 650 Mg Supp.Rect) 650 mg [place] Q6H PRN PRN Reason: Pain, Mild (Pain Scale 1-3), fever or headache Last Admin: 09/15/23 10:56 Dose: 650 mg Documented By: TYRONE Aripiprazole (Aripiprazole 15 Mg Tablet) 15 mg PO BEDTIME [facility] Last Admin: 09/15/23 21:08 Dose: 15 mg Documented By: CONSUELO Aspirin (Aspirin Enteric Coated 81 Mg Tablet.Dr) 81 mg PO DAILY [facility] Last Admin: 09/16/23 08:33 Dose: 81 mg Documented By: CAROLYNE Atorvastatin Calcium (Atorvastatin Calcium 80 Mg Tablet) 80 mg PO BEDTIME [facility] Last Admin: 09/15/23 21:08 Dose: 80 mg Documented By: CONSUELO Benzonatate (Benzonatate 100 Mg Capsule) 200 mg PO TID PRN PRN Reason: cough Calcium Carbonate (Calcium Carbonate 750 Mg Tab.Chew) 750 mg PO Q4H PRN PRN Reason: Heartburn Clonazepam (Clonazepam 1 Mg Tablet) 1 mg PO TID PRN PRN Reason: Anxiety Clonidine HCl (Clonidine Hcl 0.1 Mg Tablet) 0.1 mg PO BEDTIME PRN; Protocol PRN Reason: Anxiety Cyanocobalamin (Cyanocobalamin (Vitamin B-12) 1,000 Mcg/Ml Vial) 1,000 mcg IM Q60D [facility] Docusate Sodium (Docusate Sodium 100 Mg Capsule) 100 mg PO BID [facility] Last Admin: 09/16/23 08:20 Dose: 100 mg Documented By: CAROLYNE Enoxaparin Sodium (Enoxaparin Sodium 40 Mg/0.4 Ml Syringe) 40 mg SUBCUT Q24H [facility] Last Admin: 09/16/23 08:20 Dose: 40 mg Documented By: CAROLYNE Ferrous Sulfate (Ferrous Sulfate 324 Mg Tablet.Dr) 324 mg PO Q48H [facility] Last Admin: 09/16/23 08:19 Dose: 324 mg Documented By: CAROLYNE Fluticasone Propionate (Fluticasone Propionate 250 Mcg Blst.W.Dev) 1 puff INHALE RBID [facility] Last Admin: 09/16/23 07:38 Dose: 1 puff Documented By: LIBERTAD Furosemide (Furosemide 20 Mg Tablet) 20 mg PO DAILY [facility]; Protocol Last Admin: 09/16/23 08:19 Dose: 20 mg Documented By: CAROLYNE Gabapentin (Gabapentin 400 Mg Capsule) 400 mg PO TID [facility] Last Admin: 09/16/23 08:19 Dose: 400 mg Documented By: CAROLYNE Glucose (Glucose Gel 15 Gm Gel..Gram.) 15 gm PO Q15M PRN; Protocol PRN Reason: per 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 Standing Ord. Guaifenesin (Guaifenesin La 600 Mg Tab.Er.12h) 1,200 mg PO BID [facility] Ceftriaxone Sodium 1 gm/ (Sodium Chloride) 50 mls @ 100 mls/hr IV Q24H [facility] Last Infusion: 09/15/23 22:02 Dose: Infused Documented By: CONSUELO Azithromycin 500 mg/ Sodium (Chloride) 250 mls @ 125 mls/hr IV Q24H [facility] Last Infusion: 09/16/23 01:26 Dose: Infused Documented By: HUY Dextrose (D10) 250 mls @ 750 mls/hr IV Q15M PRN; Protocol PRN Reason: per 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 Standing Ord. Insulin Glargine (Insulin Glargine,Hum.Rec.Anlog 100 Unit/Ml 10 Ml Vial) 40 unit SUBCUT BEDTIME [facility] Last Admin: 09/15/23 21:15 Dose: 40 unit Documented By: CNOSUELO Insulin Human Lispro (Insulin Lispro 100 Unit/Ml 3 Ml Vial) 0 unit SUBCUT QIDACHS [facility]; Protocol Last Admin: 09/16/23 08:20 Dose: 2 unit Documented By: CAROLYNE Levothyroxine Sodium (Levothyroxine Sodium 125 Mcg Tablet) 125 mcg PO DAILY@0600 [facility] Last Admin: 09/16/23 05:56 Dose: 125 mcg Documented By: HUY Lidocaine (Lidocaine 4 % Patch Adh..Patch) 1 patch TRANSDERMA DAILY [facility] Last Admin: 09/16/23 08:20 Dose: 1 patch Documented By: CAROLYNE Magnesium Hydroxide (Milk Of Magnesia 30 Ml Oral.Susp) 30 ml PO DAILY PRN PRN Reason: Constipation Last Admin: 09/16/23 08:20 Dose: 30 ml Documented By: CAROLYNE Magnesium Oxide (Magnesium Oxide 400 Mg Tablet) 400 mg PO BIDPC [facility] Last Admin: 09/16/23 08:19 Dose: 400 mg Documented By: CAROLYNE Melatonin (Melatonin 3 Mg Tablet) 6 mg PO BEDTIME PRN PRN Reason: Insomnia Metformin HCl (Metformin Hcl 1,000 Mg Tablet) 1,000 mg PO BID [facility] Last Admin: 09/16/23 08:19 Dose: 1,000 mg Documented By: CAROLYNE Nortriptyline HCl (Nortriptyline Hcl 25 Mg Capsule) 50 mg PO BEDTIME [facility] Last Admin: 09/15/23 21:09 Dose: 50 mg Documented By: CONSUELO Nortriptyline HCl (Nortriptyline Hcl 25 Mg Capsule) 75 mg PO BEDTIME [facility] Last Admin: 09/15/23 21:09 Dose: 75 mg Documented By: CONSUELO Omeprazole (Omeprazole 20 Mg Capsule.) 20 mg PO DAILY@0630 [facility] Last Admin: 09/16/23 05:56 Dose: 20 mg Documented By: HUY Ondansetron HCl (Ondansetron Hcl 4 Mg/2 Ml Vial) 4 mg IVPUSH Q8H PRN PRN Reason: Nausea and Vomiting Last Admin: 09/15/23 07:17 Dose: 4 mg Documented By: TYRONE Propranolol HCl (Propranolol Hcl 40 Mg Tablet) 80 mg PO BID [facility]; Protocol Last Admin: 09/16/23 08:19 Dose: 80 mg Documented By: CAROLYNE Sodium Chloride (0.9 % Sodium Chloride Flush 3 Ml Syringe) 3 ml IVFLUSH QSHIFT [facility] Last Admin: 09/16/23 08:32 Dose: 3 ml Documented By: CAROLYNE Thiamine HCl (Thiamine Hcl 100 Mg Tablet) 100 mg PO DAILY [facility] Last Admin: 09/16/23 08:19 Dose: 100 mg Documented By: CAROLYNE Tiotropium [place] (Tiotropium [place] 2.5 Mcg 1 Puff/2.5 Mcg Mist.Inhal) 2 puff INHALE RDAILY [facility] Last Admin: 09/16/23 07:38 Dose: 2 puff Documented By: LIBERTAD Valsartan (Valsartan 160 Mg Tablet) 160 mg PO DAILY [facility]; Protocol Last Admin: 09/16/23 08:19 Dose: 160 mg Documented By: CAROLYNE Vitamin D (Cholecalciferol (Vitamin D3) 25 Mcg Tablet) 50 mcg PO DAILY [facility] Last Admin: 09/16/23 08:19 Dose: 50 mcg Documented By: CAROLYNE Labs 09/16/23 05:59 09/16/23 05:59 Labs: Laboratory Results - last 24 hr 09/15/23 09/15/23 09/15/23 04:46 09:04 09:52 MCV MCH MCHC RDW Plt Count MPV Absolute Nucleated RBC Nucleated RBC % (auto) Anion Gap 16 Estim Creat Clear Calc Estimated GFR POC Glucose Random Glucose Estimat Average Glucose 151 Hemoglobin A1c % 6.9 H Calcium Magnesium Influenza Type A (PCR) NEGATIVE Influenza Type B (PCR) NEGATIVE RSV RNA Qual (PCR) NEGATIVE SARS-CoV-2 RNA (RT-PCR) NEGATIVE 09/15/23 09/15/23 09/15/23 11:02 14:08 16:52 MCV MCH MCHC RDW Plt Count MPV Absolute Nucleated RBC Nucleated RBC % (auto) Anion Gap 16 Estim Creat Clear Calc Estimated GFR POC Glucose 220 H 215 H Random Glucose Estimat Average Glucose Hemoglobin A1c % Calcium Magnesium 2.1 Influenza Type A (PCR) Influenza Type B (PCR) RSV RNA Qual (PCR) SARS-CoV-2 RNA (RT-PCR) 09/15/23 09/15/23 09/16/23 17:22 19:30 05:59 MCV 86.7 MCH 25.9 L MCHC 29.8 L RDW 15.1 Plt Count 209 MPV 10.7 Absolute Nucleated RBC 0.000 Nucleated RBC % (auto) 0.0 Anion Gap 14 Estim Creat Clear Calc 123.8 Estimated GFR > 60 POC Glucose 193 H 192 H Random Glucose 160 H Estimat Average Glucose Hemoglobin A1c % Calcium 8.6 Magnesium 1.9 Influenza Type A (PCR) Influenza Type B (PCR) RSV RNA Qual (PCR) SARS-CoV-2 RNA (RT-PCR) 09/16/23 07:46 MCV MCH MCHC RDW Plt Count MPV Absolute Nucleated RBC Nucleated RBC % (auto) Anion Gap Estim Creat Clear Calc Estimated GFR POC Glucose 153 H Random Glucose Estimat Average Glucose Hemoglobin A1c % Calcium Magnesium Influenza Type A (PCR) Influenza Type B (PCR) RSV RNA Qual (PCR) SARS-CoV-2 RNA (RT-PCR) Microbiology Microbiology Results: Microbiology 09/14/23 23:20 Blood Culture - Preliminary Blood - Venous No growth after 24 hours. 09/14/23 22:58 Blood Culture - Preliminary Blood - Venous No growth after 24 hours. Assessment and Plan (1) Pneumonia: Status: Acute Plan 58-year-old female with pertinent history of mood disorder, hypothyroidism, hypertension, insulin-dependent diabetes mellitus, gastroesophageal reflux disease, mood disorder, DINA on CPAP who presents to the emergency department for evaluation of cough and fever. Acute hypoxemic respiratory failure due to Sepsis d/t PNA, component of DINA and ? COPD exacerbation, she is doing better today, WBC normal, no fever, no tachycardia, sepsis resolved -Continue IV Abx (Ceftriaxone and Azithro D2) -Pulmonology consu--noted, recommend MBS to exclude aspiration -CPAP at night and PRN during the day Acute Hypokalemia K of 2.7, corrected and resolved. Hypomagnesemia--1.4, corrected and resolved Orthostatic presyncope hydrated and repeat Acute lactic acidosis due to sepsis: has trended down from fluid Insulin-dependent diabetes mellitus with hyperglycemia She take Humalin 50 bid at home. Receiving Lantus 40 daily, FBS 160, continue metformin given normal renal function and no contrast use Class 3 Obesity: Counseled regarding diet and exercise Hypertension: continue clonidine, propranolol and Valsartan Gastroesophageal reflux disease: Prilosec Peripheral neuropathy--continue gabapentin Hypothyroidism--continue levothyroxine Mood disorder: continue clonidine, Pamelor, abilify DINA: Continue CPAP at bedtime and PRN during the day Chronic tremors--she says due to parkinson' on no meds for [place] Change status to tele pt DVT prophylaxis: Lovenox Full code need for inpatient: IV Abx for PNA w/ acute hypoxic respiratory failure Quality Stroke Does the patient have a stroke diagnosis?: No VTE Prior VTE?: No VTE Risk Level:: Medical - moderate - high VTE Device Contraindication: Treatment Not Indicated VTE Drug Contraindication: N/A - Med Ordered
--- NOTE | 2023-09-16 09:49 | MHC.CM.PN ---
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 PT VERIFIES PCP IS [facility] AND PT HAS BEEN EDUCATED ON AND COMPLETED A HCP NAMING HER DTR JAYSHREE MENCHACA [phone] HER [facility] AND HER DTR TERRANCE MENCHACA [phone] HER ALTERNATE, COPY UPLOADED TO [facility] AND PLACED IN CHART.
[2023-09-16] MEDS: guaiFENesin LA 600 MG TAB.ER.12H 1200 MG PO ×2 (09:52→20:59)
[2023-09-16 12:08] LABS: Glucose, Whole Blood 164 mg/dL (60-115)
--- NOTE | 2023-09-16 12:14 | MHC.SL.SWA ---
Risk of Aspiration Due to: Weak Cough Dysphasia Diet Status: Liquid Consistency and Strategies for Safe Swallow: Liquid Intake Recommendation: Thin Liquid Intake Strategies: Small Sips Solid Food Consistency: Dietary Recommendations: Regular Additional Modifications to Solid Foods: Chopped Oral Medication Intake: Whole with Liquid Please contact the pharmacy regarding appropriate crushable or liquid drug formulations that are available whenever modified delivery is recommended. Compensatory Strategies and Precautions to be Taken for Safe Swallow: Sitting Upright (90 deg) Small Bites and Sips Alternate Liquids/Solids Rate of Ingestion Change Supervision While Eating and Drinking for Safe Swallow: Intermittent Supervision Swallowing Recommended Treatments: Compens. Strategy Educat. Recommendation for Speech: Comment: Pt is recommended to continue with REGULAR solids (meat chopped d/t tremor) and THIN liquids w/ pills WHOLE in liquid. Recommend pills taken 1 at a time. If pt continues to report pills getting stuck, recommend pills crushed in puree if possible. Pt pending MBSS which was ordered by electrician sound; SENIOR BIOSTATISTICIAN/GROUP LEADER team trying to coordinate w/ radiology for 09/16. Regulatory Affairs Assistant Clinican/Clinical Fellow: No Supervisory Statement: I have reviewed and agree with the student/clinical fellow's documentation: N/A Speech Language Pathologist: Concha Olivier M.A., CCC-SENIOR BIOSTATISTICIAN/GROUP LEADER
[2023-09-16 16:15] LABS: Glucose, Whole Blood 150 mg/dL (60-115)
[2023-09-16 20:26] LABS: Glucose, Whole Blood 125 mg/dL (60-115)
[2023-09-16] MEDS: cefTRIAXone sodium 1 GM in 0.9 % Sodium Chloride 50 ML IV (20:57)
[2023-09-16] MEDS: ARIPiprazole 15 MG TABLET PO (20:58)
[2023-09-16] MEDS: Atorvastatin Calcium 80 MG TABLET PO (20:58)
[2023-09-16] MEDS: Nortriptyline HCl 25 MG CAPSULE 50 MG PO (21:00)
[2023-09-16] MEDS: Nortriptyline HCl 25 MG CAPSULE 75 MG PO (21:00)
[2023-09-16] MEDS: Insulin Glargine,Hum.rec.anlog 100 UNIT/ML 10 ML VIAL 40 UNIT SUBCUT (21:02)
[2023-09-16] MEDS: Azithromycin 500 MG in 0.9 % Sodium Chloride 250 ML 125 MG IV (22:34)
--- NOTE | 2023-09-16 23:46 | PC.RT ---
does not want CPAP
[2023-09-17] VITALS (10 sets, daily range): BP systolic 102–131; BP diastolic 52–72; PULSE 63–88; RESP 17–20; TEMP 36–36.8; O2SAT 93–97
--- NOTE | 2023-09-17 06:17 | PC.RT ---
Pt refused noc cpap
[2023-09-17] MEDS: Omeprazole 20 MG CAPSULE.DR PO (06:23)
[2023-09-17] MEDS: Levothyroxine Sodium 125 MCG TABLET PO (06:23)
[2023-09-17 07:42] LABS: Glucose, Whole Blood 119 mg/dL (60-115)
[2023-09-17] MEDS: Tiotropium Bromide 2.5 mcg 1 PUFF/2.5 MCG MIST.INHAL 2 PUFF INHALE (08:14)
[2023-09-17] MEDS: Fluticasone Propionate 250 MCG BLST.W.DEV 1 PUFF INHALE ×2 (08:14→18:57)
[2023-09-17] MEDS: ondansetron HCL 4 MG/2 ML VIAL IVPUSH (09:24)
[2023-09-17] MEDS: Furosemide 20 MG TABLET PO (09:25)
[2023-09-17] MEDS: metFORMIN HCl 1,000 MG TABLET 1000 MG PO ×2 (09:25→21:20)
[2023-09-17] MEDS: Propranolol HCL 40 MG TABLET 80 MG PO ×2 (09:25→21:21)
[2023-09-17] MEDS: Enoxaparin Sodium 40 MG/0.4 ML SYRINGE SUBCUT (09:25)
[2023-09-17] MEDS: Magnesium Oxide 400 MG TABLET PO ×2 (09:26→17:27)
[2023-09-17] MEDS: guaiFENesin LA 600 MG TAB.ER.12H 1200 MG PO ×2 (09:26→21:22)
[2023-09-17] MEDS: Valsartan 160 MG TABLET PO (09:26)
[2023-09-17] MEDS: Cholecalciferol (Vitamin D3) 25 MCG TABLET 50 MCG PO (09:26)
[2023-09-17] MEDS: Aspirin Enteric Coated 81 MG TABLET.DR PO (09:26)
[2023-09-17] MEDS: Gabapentin 400 MG CAPSULE PO ×3 (09:26→21:21)
[2023-09-17] MEDS: 0.9 % Sodium Chloride Flush 3 ML SYRINGE IVFLUSH ×3 (09:26→23:55)
[2023-09-17] MEDS: Docusate Sodium 100 MG CAPSULE PO (09:26)
[2023-09-17] MEDS: Thiamine HCL 100 MG TABLET PO (09:26)
[2023-09-17] MEDS: Lidocaine 4 % Patch ADH..PATCH 1 PATCH TRANSDERMA (09:27)
--- NOTE | 2023-09-17 10:49 | MHC.SLORD ---
Speech Language Pathology Order Status: MBSS scheduled with Radiology for 2:30 today, RN advised.
[2023-09-17 11:30] LABS: Glucose, Whole Blood 146 mg/dL (60-115)
--- NOTE | 2023-09-17 15:06 | MHC.SPEECHCO ---
MBSS complete. No aspiration observed. Penetration above the vocal folds with spontaneous ejection with Thin Liquids. Continue to recommend Regular Solids and Thin Liquids. No further MEDICAL HOUSEKEEPER intervention required at this time.
--- NOTE | 2023-09-17 16:09 | HO.PM.IMPN ---
Subjective Subjective Date of Service: 09/17/23 Interval History: follow-up on acute hypoxic respiratory failure related to pneumonia and sepsis Interval history: She is doing much better today, minimal sob and overall feels better, MBS done, no result yet Physical Exam Vital Signs: Vital Signs: Last Vital Signs Temp 96.8 F 09/17/23 11:33 Pulse 80 09/17/23 11:33 Resp 18 09/17/23 11:33 BP 115/66 09/17/23 11:33 Pulse Ox 95 09/17/23 11:33 O2 Del Method Nasal Cannula 09/17/23 11:33 O2 Flow Rate 2 09/17/23 11:33 Oxygen Flow Rate 3 09/14/23 22:29 BMI result Body Mass Index 40.2 Const: Other: General: AO X 3, no acute distress, resp: diminised [place], no wheezes, no rales, nl wob CVS: S1,S2,RRR GI: +BS, NT, no distention Skin: No rash Neuro: motor grossly intact Psych: appropriate affect Objective Data Active Medications Acetaminophen (Acetaminophen 325 Mg Tablet) 650 mg PO Q6H PRN PRN Reason: Pain, Mild (Pain Scale 1-3), fever or headache Last Admin: 09/16/23 21:00 Dose: 650 mg Documented By: CARMEN Acetaminophen (Acetaminophen Supp 650 Mg Supp.Rect) 650 mg [place] Q6H PRN PRN Reason: Pain, Mild (Pain Scale 1-3), fever or headache Last Admin: 09/15/23 10:56 Dose: 650 mg Documented By: TYRONE Aripiprazole (Aripiprazole 15 Mg Tablet) 15 mg PO BEDTIME [facility] Last Admin: 09/16/23 20:58 Dose: 15 mg Documented By: CARMEN Aspirin (Aspirin Enteric Coated 81 Mg Tablet.Dr) 81 mg PO DAILY [facility] Last Admin: 09/17/23 09:26 Dose: 81 mg Documented By: MARCOS Atorvastatin Calcium (Atorvastatin Calcium 80 Mg Tablet) 80 mg PO BEDTIME [facility] Last Admin: 09/16/23 20:58 Dose: 80 mg Documented By: CARMEN Benzonatate (Benzonatate 100 Mg Capsule) 200 mg PO TID PRN PRN Reason: cough Calcium Carbonate (Calcium Carbonate 750 Mg Tab.Chew) 750 mg PO Q4H PRN PRN Reason: Heartburn Clonazepam (Clonazepam 1 Mg Tablet) 1 mg PO TID PRN PRN Reason: Anxiety Clonidine HCl (Clonidine Hcl 0.1 Mg Tablet) 0.1 mg PO BEDTIME PRN; Protocol PRN Reason: Anxiety Cyanocobalamin (Cyanocobalamin (Vitamin B-12) 1,000 Mcg/Ml Vial) 1,000 mcg IM Q60D [facility] Docusate Sodium (Docusate Sodium 100 Mg Capsule) 100 mg PO BID [facility] Last Admin: 09/17/23 09:26 Dose: 100 mg Documented By: MARCOS Enoxaparin Sodium (Enoxaparin Sodium 40 Mg/0.4 Ml Syringe) 40 mg SUBCUT Q24H [facility] Last Admin: 09/17/23 09:25 Dose: 40 mg Documented By: MARCOS Ferrous Sulfate (Ferrous Sulfate 324 Mg Tablet.Dr) 324 mg PO Q48H [facility] Last Admin: 09/16/23 08:19 Dose: 324 mg Documented By: CAROLYNE Fluticasone Propionate (Fluticasone Propionate 250 Mcg Blst.W.Dev) 1 puff INHALE RBID [facility] Last Admin: 09/17/23 08:14 Dose: 1 puff Documented By: LIBERTAD Furosemide (Furosemide 20 Mg Tablet) 20 mg PO DAILY [facility]; Protocol Last Admin: 09/17/23 09:25 Dose: 20 mg Documented By: MARCOS Gabapentin (Gabapentin 400 Mg Capsule) 400 mg PO TID [facility] Last Admin: 09/17/23 09:26 Dose: 400 mg Documented By: MARCOS Glucose (Glucose Gel 15 Gm Gel..Gram.) 15 gm PO Q15M PRN; Protocol PRN Reason: per 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 Standing Ord. Guaifenesin (Guaifenesin La 600 Mg Tab.Er.12h) 1,200 mg PO BID [facility] Last Admin: 09/17/23 09:26 Dose: 1,200 mg Documented By: MARCOS Ceftriaxone Sodium 1 gm/ (Sodium Chloride) 50 mls @ 100 mls/hr IV Q24H [facility] Last Infusion: 09/16/23 21:27 Dose: Infused Documented By: CARMEN Azithromycin 500 mg/ Sodium (Chloride) 250 mls @ 125 mls/hr IV Q24H [facility] Last Infusion: 09/17/23 00:34 Dose: Infused Documented By: CARMEN Dextrose (D10) 250 mls @ 750 mls/hr IV Q15M PRN; Protocol PRN Reason: per 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 Standing Ord. Insulin Glargine (Insulin Glargine,Hum.Rec.Anlog 100 Unit/Ml 10 Ml Vial) 40 unit SUBCUT BEDTIME [facility] Last Admin: 09/16/23 21:02 Dose: 40 unit Documented By: CARMEN Insulin Human Lispro (Insulin Lispro 100 Unit/Ml 3 Ml Vial) 0 unit SUBCUT QIDACHS [facility]; Protocol Last Admin: 09/17/23 12:42 Dose: Not Given Documented By: MARCOS Non-Admin Reason: No Insulin Coverage Levothyroxine Sodium (Levothyroxine Sodium 125 Mcg Tablet) 125 mcg PO DAILY@0600 [facility] Last Admin: 09/17/23 06:23 Dose: 125 mcg Documented By: CARMEN Lidocaine (Lidocaine 4 % Patch Adh..Patch) 1 patch TRANSDERMA DAILY [facility] Last Admin: 09/17/23 09:27 Dose: 1 patch Documented By: MARCOS Magnesium Hydroxide (Milk Of Magnesia 30 Ml Oral.Susp) 30 ml PO DAILY PRN PRN Reason: Constipation Last Admin: 09/16/23 08:20 Dose: 30 ml Documented By: CAROLYNE Magnesium Oxide (Magnesium Oxide 400 Mg Tablet) 400 mg PO BIDPC [facility] Last Admin: 09/17/23 09:26 Dose: 400 mg Documented By: MARCOS Melatonin (Melatonin 3 Mg Tablet) 6 mg PO BEDTIME PRN PRN Reason: Insomnia Metformin HCl (Metformin Hcl 1,000 Mg Tablet) 1,000 mg PO BID [facility] Last Admin: 09/17/23 09:25 Dose: 1,000 mg Documented By: MARCOS Nortriptyline HCl (Nortriptyline Hcl 25 Mg Capsule) 50 mg PO BEDTIME [facility] Last Admin: 09/16/23 21:00 Dose: 50 mg Documented By: CARMEN Nortriptyline HCl (Nortriptyline Hcl 25 Mg Capsule) 75 mg PO BEDTIME [facility] Last Admin: 09/16/23 21:00 Dose: 75 mg Documented By: CARMEN Omeprazole (Omeprazole 20 Mg Capsule.Dr) 20 mg PO DAILY@0630 [facility] Last Admin: 09/17/23 06:23 Dose: 20 mg Documented By: CARMEN Ondansetron HCl (Ondansetron Hcl 4 Mg/2 Ml Vial) 4 mg IVPUSH Q8H PRN PRN Reason: Nausea and Vomiting Last Admin: 09/17/23 09:24 Dose: 4 mg Documented By: MARCOS Propranolol HCl (Propranolol Hcl 40 Mg Tablet) 80 mg PO BID [facility]; Protocol Last Admin: 09/17/23 09:25 Dose: 80 mg Documented By: MARCOS Sodium Chloride (0.9 % Sodium Chloride Flush 3 Ml Syringe) 3 ml IVFLUSH QSHIFT [facility] Last Admin: 09/17/23 09:26 Dose: 3 ml Documented By: MARCOS Thiamine HCl (Thiamine Hcl 100 Mg Tablet) 100 mg PO DAILY [facility] Last Admin: 09/17/23 09:26 Dose: 100 mg Documented By: MARCOS Tiotropium [place] (Tiotropium [place] 2.5 Mcg 1 Puff/2.5 Mcg Mist.Inhal) 2 puff INHALE RDAILY [facility] Last Admin: 09/17/23 08:14 Dose: 2 puff Documented By: LIBERTAD Valsartan (Valsartan 160 Mg Tablet) 160 mg PO DAILY [facility]; Protocol Last Admin: 09/17/23 09:26 Dose: 160 mg Documented By: MARCOS Vitamin D (Cholecalciferol (Vitamin D3) 25 Mcg Tablet) 50 mcg PO DAILY [facility] Last Admin: 09/17/23 09:26 Dose: 50 mcg Documented By: MARCOS Labs 09/16/23 05:59 09/16/23 05:59 Labs: Laboratory Results - last 24 hr 09/16/23 09/16/23 09/17/23 16:09 20:22 07:27 POC Glucose 150 H 125 H 119 H 09/17/23 11:26 POC Glucose 146 H Microbiology Microbiology Results: Microbiology 09/14/23 23:20 Blood Culture - Final Blood - Venous Bacillus species 09/14/23 22:58 Blood Culture - Preliminary Blood - Venous No growth after 48 hours. Assessment and Plan (1) Acute respiratory failure: Status: Acute (2) Pneumonia: Status: Acute (3) NAFLD (nonalcoholic fatty liver disease): Status: Acute Plan 58-year-old female with pertinent history of mood disorder, hypothyroidism, hypertension, insulin-dependent diabetes mellitus, gastroesophageal reflux disease, mood disorder, DINA on CPAP who presents to the emergency department for evaluation of cough and fever. Acute hypoxemic respiratory failure due to Sepsis d/t PNA, component of DINA and ? COPD exacerbation, she continue to improve, WBC normal, no fever, no tachycardia, sepsis resolved -Continue IV Abx (Ceftriaxone and Azithro D3) -Pulmonology consu--noted, recommend MBS to exclude aspiration -CPAP at night and PRN during the day Acute Hypokalemia K of 2.7, corrected and resolved. Hypomagnesemia--1.4, corrected and resolved Orthostatic presyncope: likely dehydration, resolved 1/2 Bacilus specie bacteremia--likely contamination, improving on present antibiotics Acute lactic acidosis due to sepsis: has trended down from fluid Insulin-dependent diabetes mellitus with hyperglycemia She take Humalin 50 bid at home. Receiving Lantus 40 daily, FBS 160, continue metformin given normal renal function and no contrast use Class 3 Obesity: Counseled regarding diet and exercise Hypertension: continue clonidine, propranolol and Valsartan Gastroesophageal reflux disease: Prilosec Peripheral neuropathy--continue gabapentin Hypothyroidism--continue levothyroxine Mood disorder: continue clonidine, Pamelor, abilify DINA: Continue CPAP at bedtime and PRN during the day Chronic tremors--she says due to parkinson' on no meds for [place] Change status to tele pt DVT prophylaxis: Lovenox Full code need for inpatient: IV Abx for PNA w/ acute hypoxic respiratory failure Quality Stroke Does the patient have a stroke diagnosis?: No VTE Prior VTE?: No VTE Risk Level:: Medical - moderate - high VTE Device Contraindication: Treatment Not Indicated VTE Drug Contraindication: N/A - Med Ordered
[2023-09-17 18:08] LABS: Anion Gap 16 (12-20); Blood Urea Nitrogen 8 mg/dL (9-16); Calcium 9.3 mg/dL (8.4-10.2); Carbon Dioxide 29 mmol/L (22-29); Chloride 103 mmol/L (96-108); Creatinine Clr Calc Pharmacy 110.1; Estimated Glomerular Filt Rate > 60; Glucose Random 168 mg/dL (60-115); Potassium 3.5 mmol/L (3.3-5.1); Sodium 144 mmol/L (135-145)
[2023-09-17 21:04] LABS: Glucose, Whole Blood 121 mg/dL (60-115)
[2023-09-17] MEDS: Atorvastatin Calcium 80 MG TABLET PO (21:21)
[2023-09-17] MEDS: ARIPiprazole 15 MG TABLET PO (21:21)
[2023-09-17] MEDS: cefTRIAXone sodium 1 GM in 0.9 % Sodium Chloride 50 ML IV (21:22)
[2023-09-17] MEDS: Insulin Glargine,Hum.rec.anlog 100 UNIT/ML 10 ML VIAL 40 UNIT SUBCUT (21:35)
[2023-09-17] MEDS: Azithromycin 500 MG in 0.9 % Sodium Chloride 250 ML 125 MG IV (23:53)
[2023-09-18] VITALS (7 sets, daily range): BP systolic 111–136; BP diastolic 61–65; PULSE 65–88; RESP 16–18; TEMP 35.6–36.1; O2SAT 93–98
[2023-09-18] MEDS: Acetaminophen 325 MG TABLET 650 MG PO (04:29)
[2023-09-18] MEDS: Omeprazole 20 MG CAPSULE.DR PO (05:24)
[2023-09-18] MEDS: Levothyroxine Sodium 125 MCG TABLET PO (05:24)
[2023-09-18 06:09] LABS: Glucose, Whole Blood 149 mg/dL (60-115)
[2023-09-18] MEDS: Aspirin Enteric Coated 81 MG TABLET.DR PO (07:23)
[2023-09-18] MEDS: 0.9 % Sodium Chloride Flush 3 ML SYRINGE IVFLUSH (07:23)
[2023-09-18] MEDS: Valsartan 160 MG TABLET PO (07:23)
[2023-09-18] MEDS: Gabapentin 400 MG CAPSULE PO (07:23)
[2023-09-18] MEDS: Ferrous Sulfate 324 MG TABLET.DR PO (07:23)
[2023-09-18 07:24] LABS: Glucose, Whole Blood 126 mg/dL (60-115)
[2023-09-18] MEDS: Propranolol HCL 40 MG TABLET 80 MG PO (07:24)
[2023-09-18] MEDS: guaiFENesin LA 600 MG TAB.ER.12H 1200 MG PO (07:24)
[2023-09-18] MEDS: Furosemide 20 MG TABLET PO (07:24)
[2023-09-18] MEDS: metFORMIN HCl 1,000 MG TABLET 1000 MG PO (07:24)
[2023-09-18] MEDS: Thiamine HCL 100 MG TABLET PO (07:24)
[2023-09-18] MEDS: Cholecalciferol (Vitamin D3) 25 MCG TABLET 50 MCG PO (07:24)
[2023-09-18] MEDS: Magnesium Oxide 400 MG TABLET PO (07:24)
[2023-09-18] MEDS: Enoxaparin Sodium 40 MG/0.4 ML SYRINGE SUBCUT (07:25)
[2023-09-18] MEDS: Fluticasone Propionate 250 MCG BLST.W.DEV 1 PUFF INHALE (08:03)
[2023-09-18] MEDS: Tiotropium Bromide 2.5 mcg 1 PUFF/2.5 MCG MIST.INHAL 2 PUFF INHALE (08:03)
[2023-09-18 11:38] LABS: Glucose, Whole Blood 179 mg/dL (60-115)
--- NOTE | 2023-09-18 11:48 | P.DS_ITS ---
DS: Providers Provider Date of Service: 09/18/23 Date of admission: 09/15/23 02:36 Primary care physician: Jaida Martin DO Consults: 09/15/23 08:59 Consult to Pulmonology Routine Consulting Provider: [facility] Reason for consultation: Acute hypoxic resp failure DS: Diagnosis Discharge Diagnosis (1) Acute respiratory failure: Status: Acute (2) Pneumonia: Status: Acute (3) NAFLD (nonalcoholic fatty liver disease): Status: Acute DS: Summary Hospital Course Hospital Course: admission hpi Chief Complaint: Cough This is a 58-year-old female with pertinent history of mood disorder, hypothyroidism, hypertension, insulin-dependent diabetes mellitus, gastroesophageal reflux disease, mood disorder, DINA on CPAP who presents to the emergency department for evaluation of cough and fever. Patient states the symptoms started 2 days prior to presentation. Was seen in the ER 1 day prior to presentation and discharged on p.o. antibiotics. Patient continued to have symptoms including fever. Ulcer in episode where she tried to get up, had an episode of dizziness and lightheadedness and fell. Did not pass out. No chest pain or palpitations. No rhythmic jerking movement of extremities. No coughing or choking with food. Admits chills along with fever. No chest discomfort, palpitations, abdominal pain or changes in urinary or bowel habits. The emergency department, patient was found to be septic and imaging concerning for right-sided pneumonia. Hospital course: The patient has complicated past medical history as detail above and presented with cough and shortness of breath and was found to be hypoxic. Work up revealed pneumonia. WBC was elevated at 14K. She was started on Azithromycin and Ceftriaxone. Over the course of hospitalization, she made progressive improvement and presently is doing much better and has since been weaned of oxygen and saturating 93% on room air. She was seen by the voting machine repairer who agreed on present treatment plan. The patient will be transitioned to oral Cefuroxime and Doxycline for 5 more days. Patient was seen by PICKING MACHINE OPERATOR and had MBS which revealed some laryngeal penetration but no aspiration and so regular diett and liquid recommended. Acute Hypokalemia K of 2.7, corrected and resolved. Hypomagnesemia--1.4, corrected and resolved Orthostatic presyncope: likely dehydration, resolved 1/2 Bacilus specie bacteremia--likely contamination, improving on present antibiotics Acute lactic acidosis due to sepsis: has trended down from fluid Insulin-dependent diabetes mellitus with hyperglycemia She take Humalin 50 bid at home. Receiving Lantus 40 daily, at discharge advised to take 30 untis today and to resume regular regimen by tomorrow Class 3 Obesity: Counseled regarding diet and exercise Hypertension: continue clonidine, propranolol and Valsartan Gastroesophageal reflux disease: Prilosec Peripheral neuropathy--continue gabapentin Hypothyroidism--continue levothyroxine Mood disorder: continue clonidine, Pamelor, abilify Time Attestation Discharge Coordination Time (in mins): 45 Quality: Safe Use of Opioids Does Pt have an Active Cancer Diagnosis on the Problem List?: No Quality: Stroke Does the patient have a stroke diagnosis?: No Physical Exam Vital Signs: Vital Signs: Last Vital Signs Temp 96.9 F 09/18/23 10:20 Pulse 88 09/18/23 10:20 Resp 16 09/18/23 10:20 BP 124/65 09/18/23 10:20 Pulse Ox 93 09/18/23 10:20 O2 Del Method Room Air 09/18/23 10:20 O2 Flow Rate 2 09/18/23 07:12 Oxygen Flow Rate 3 09/14/23 22:29 BMI result Body Mass Index 40.2 DS: Data Data Completed and Pending Completed studies during hospitalization [Text1]: Procedures Assistance with Respiratory Ventilation, Less than 24 Consecutive Hours, Continuous Positive Airway Pressure (10/23/21) Labs on day of discharge: Laboratory Results - last 24 hr 09/17/23 09/17/23 09/18/23 17:15 20:48 07:20 Sodium 144 Potassium 3.5 Chloride 103 Carbon Dioxide 29 Anion Gap 16 BUN 8 L Creatinine 0.63 Estim Creat Clear Calc 110.1 Estimated GFR > 60 POC Glucose 149 H 121 H 126 H Random Glucose 168 H Calcium 9.3 D Magnesium 2.0 09/18/23 11:06 Sodium Potassium Chloride Carbon Dioxide Anion Gap BUN Creatinine Estim Creat Clear Calc Estimated GFR POC Glucose 179 H Random Glucose Calcium Magnesium Preliminary micro results at discharge 09/14/23 22:58 Blood Culture - Preliminary Blood - Venous No growth after 48 hours. Discharge Plan Discharge Anticipated Discharge Date/Time: 09/18/23 11:53 Patient Disposition: Home Health Service Discharge Diagnosis: Acute hypoxic respiratory failure due to pneumonia Referrals: [facility] [Outside] - 1 Week Jaida Martin DO [Primary Care Provider] - 1 Week Discharge Medications: New cefuroxime axetil 500 mg Tablet 500 mg PO Q12H Qty: 9 0RF Continued (DME) lancets [TRUEplus Lancets] 33 gauge misc See Rx Instructions .ROUTE .MEDSUPPLY Qty: 120 11RF Rx Instructions: 4 times a day metformin 500 mg tablet 1,000 mg PO BID 90 Days Qty: 360 1RF Hold Instructions: Resume on 09/15/22. (DME) blood-glucose meter [FreeStyle Lite Meter] Kit See Rx Instructions .Route Qty: 1 0RF Rx Instructions: As directed (DME) pen needle, diabetic [Pentips] 32 gauge x 5/32 needle See Rx Instructions .ROUTE .COMPLEX Qty: 100 11RF Dose Instruction: USE DIRECTED TWICE DAILY Rx Instructions: USE DIRECTED TWICE DAILY (DME) FreeStyle Lite Strips Strip See Rx Instructions .MEDSUPPLY Qty: 150 5RF Rx Instructions: 5 times a day (DME) FreeStyle Ortiz 2 Sensor Kit See Rx Instructions .ROUTE .COMPLEX Qty: 2 6RF Dose Instruction: USE DIRECTED AND CHANGE EVERY 14 DAYS Rx Instructions: USE DIRECTED AND CHANGE EVERY 14 DAYS Baqsimi 3 mg/actuation spray,non-aerosol 3 mg intranasal ONCE Qty: 4 6RF furosemide 20 mg tablet 20 mg PO .daily Qty: 30 3RF Spiriva Respimat 2.5 mcg/actuation mist 2 puff inhalation DAILY 30 Days Qty: 4 6RF gabapentin 400 mg capsule 400 mg PO TID Qty: 90 4RF propranolol 80 mg tablet 80 mg PO BID Qty: 180 0RF Rx Instructions: OVERDUE FOR APPT. PLEASE CALL [phone] SO THAT WE CAN CONTINUE REFILLING YOUR CARDIAC MEDICATIONS. levothyroxine 125 mcg tablet 1 tab PO DAILY@0600 nortriptyline 50 mg capsule 1 cap PO BEDTIME Rx Instructions: TAKE WITH 75 MG benzonatate 200 mg capsule 200 mg PO TID PRN (Reason: cough) Qty: 30 0RF doxycycline hyclate 100 mg tablet 100 mg PO BID Qty: 20 0RF acetaminophen 650 mg tablet extended release 650 mg PO Q8H PRN (Reason: mild pain) aripiprazole 15 mg tablet 15 mg PO BEDTIME nortriptyline 75 mg capsule 75 mg PO BEDTIME lidocaine 5 % adhesive patch,medicated 1 patch transdermal DAILY melatonin 5 mg tablet 5 - 10 mg PO BEDTIME PRN (Reason: Insomnia) Mounjaro 2.5 mg/0.5 mL pen injector 2.5 mg subcut QWEEK Humulin R U-500 (Conc) Kwikpen 500 unit/mL (3 mL) insulin pen 50 unit subcut .twice a day clonidine HCl 0.1 mg tablet 0.1 mg PO BEDTIME PRN (Reason: Anxiety) rosuvastatin [Crestor] 20 mg tablet 20 mg PO BEDTIME thiamine HCl (vitamin B1) 100 mg tablet 100 mg PO DAILY Rx Instructions: WITH MEAL ferrous sulfate 325 mg (65 mg iron) tablet 325 mg PO Q OTHER DAY clonazepam 1 mg tablet 1 mg PO TID PRN (Reason: Anxiety) valsartan 160 mg tablet 160 mg PO DAILY omeprazole 20 mg capsule,delayed release(DR/EC) 20 mg PO DAILY@0630 cyanocobalamin (vitamin B-12) 1,000 mcg/mL solution 1,000 mcg IM [id number] aspirin 81 mg tablet,delayed release (DR/EC) 81 mg PO DAILY docusate sodium 100 mg capsule 100 mg PO BID cholecalciferol (vitamin D3) 50 mcg (2,000 unit) capsule 50 mcg PO DAILY (DME) FreeStyle Ortiz 2 [place] Misc See Rx Instructions .Route Qty: 1 0RF Rx Instructions: As directed albuterol sulfate 2.5 mg /3 mL (0.083 %) solution for nebulization 2.5 mg inhalation Q4H PRN (Reason: Wheezing) Arnuity Ellipta 200 mcg/actuation blister with device 1 inh inhalation DAILY Discontinued amoxicillin-pot clavulanate 875-125 mg tablet 1 tab PO BID Qty: 20 0RF Discharge Orders: Discharge Order (Routine); Ordered 09/18/23 Ordered By: Eduardo Rocha Diet: Diabetic diet Activity on Discharge: As tolerated Stand Alone Forms: Patient Portal Discharge page Print Language: Icelandic Care Plan Goals: full recovery from pneumonia Health Concerns: sepsis penumonia acute respiratory failure Plan of Treatment: take Cefurixime and Doxycycline as recommended follow up with yor doctor in a week, call for appointment resume other medication I recommend restarting Insulin at a lower dose of 30 units tonight and staring tomorrow if sugars are ok, reume usual schedule Assessment: see above
[2023-09-18] MEDS: Insulin Lispro 100 UNIT/ML 3 ML VIAL SUBCUT (11:52)
[2023-09-18] MEDS: Doxycycline Monohydrate 100 MG CAPSULE PO (12:10)
[2023-09-18] MEDS: cefuroxime axetiL 500 MG TABLET PO (12:10)
--- NOTE | 2023-09-18 12:22 | MHC.SL.IMP ---
Date of Plan of Treatment: 09/16/23 Onset of Symptoms/Illness: 09/16/23 Date Treatment Started: 09/16/23 Admitting Diagnosis: RLL PNA Primary Speech & Language Diagnosis: R13.19 Other Dysphagia Reason for Today's Visit: 73677 Modified Barium Swallow Study Comments: Pt alert & oriented on 2L NC Pt w/ tremor; reported as secondary to medication Pre-evaluation Dietary Consistencies: Regular Pre-evaluation Liquid Consistency: Thin Pre-evaluation Medication Administration: Whole with Puree Medical History: Comments: Study Number: 1 Age: 58 Gender: Female MEDICAL HISTORY: Current (pre-evaluation) Intake/Diet: Pre-Study Functional Oral Intake Scale (FOIS): 7- Total oral intake with no restrictions Medical History: Coarse tremors Bleeding hemorrhoids Hyperlipidemia Dental crowns present Bilateral pneumonia Respiratory failure Hypothyroidism Paranoia (psychosis) Stress incontinence Insomnia Anxiety Obstructive sleep apnea on CPAP Scoliosis of thoracolumbar spine Morbid obesity Chronic pain syndrome Sacroiliitis Inappropriate sinus tachycardia GERD (gastroesophageal reflux disease) 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 due to insulin USP (current) use of insulin Gastroparesis 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, uncontrolled Anemia Hemorrhoids Migraine Asthma Patellofemoral arthritis Patella-femoral syndrome Lumbar spondylosis Fibromyalgia Tubular adenoma Family history of colon cancer Vitamin D deficiency Dyslipidemia Genu valgum Low back pain Palpitations Chest pain HTN (hypertension) Surgical History: Status post hemorrhoidectomy History of hemorrhoidectomy (~09/09/22) History of surgery Hx of section H/O esophagogastroduodenoscopy History of colonoscopy History of arthroscopy of right knee History of bilateral carpal tunnel release History of bladder surgery History of tubal ligation Hx of tonsillectomy Oral Motor Exam Facial Symmetry: Normal for Patient Symmetrical Facial Movement: Controlled Oral Expression Ability: No Impairment Is patient able to manage secretions?: Yes Is patient able to produce volitional cough?: Yes Food and Liquid Trials: Oral Impairment: Lip Closure: 1=Interlabial escape; no progression to anterior tip Oral Impairment: Tongue Control During Bolus Hold: 0=Cohesive bolus between tongue to palatal seal Oral Impairment: Bolus Preparation/Mastication: 1=Slow prolonged chewing/mashing with complete re-collection Oral Impairment: Bolus Transport/Lingual Motion: 0=Brisk tongue motion Oral Impairment: Oral Residue: 1=Trace residue lining oral structures Oral Impairment:Initiation of Pharyngeal Swallow: 1=Bolus head in valleculae Pharyngeal Impairment: Soft Palate Elevation: 0=No bolus between soft palate (SP)/pharyngeal wall (PW) Pharyngeal Impairment: Laryngeal Elevation: 0=Complete superior movement of thyroid cartilage (see description) Pharyngeal Impairment: Anterior Hyoid Excursion: 0=Complete anterior movement Pharyngeal Impairment: Epiglottic Movement: 0=Complete inversion Pharyngeal Impairment: Laryngeal Vestibular Closure:: 1=Incomplete: narrow column air/contrast in laryngeal vestibule Pharyngeal Impairment: Pharyngeal Stripping Wave: 0=Present: complete Pharyngeal Impairment: Pharyngeal Contraction: Did not test Pharyngeal Impairment: Pharyngoesophageal Segment Openin=Complete distension and complete duration: no obstruction of flow Pharyngeal Impairment: Tongue Base (TB) Retraction: 1=Trace column of contrast/air between TB and posterior PW Pharyngeal Impairment: Pharyngeal Residue: 0=Complete pharyngeal clearance Pharyngeal Impairment: Esophageal Clearance Upright Position: Did not test Impressions and Recommendations SUBJECTIVE: This is a 58-year-old Pashto speaking female with pertinent history of mood disorder, hypothyroidism, hypertension, insulin-dependent diabetes mellitus, gastroesophageal reflux disease, mood disorder, DINA on CPAP who presents to the emergency department for evaluation of cough and fever. Patient states the symptoms started 2 days prior to presentation. Was seen in the ER 1 day prior to presentation and discharged on p.o. antibiotics. Patient continued to have symptoms including fever. Ulcer in episode where she tried to get up, had an episode of dizziness and lightheadedness and fell. Did not pass out. No chest pain or palpitations. No rhythmic jerking movement of extremities. No coughing or choking with food. Admits chills along with fever. No chest discomfort, palpitations, abdominal pain or changes in urinary or bowel habits. The emergency department, patient was found to be septic and imaging concerning for right-sided pneumonia. CXR finding indicated, ?Worsening pulmonary aeration with increased consolidative airspace opacity in the right lower lung field concerning for pneumonia. Recommend close attention on follow-up to ensure resolution after treatment.? She was seen by LINES TENDER at bedside on 09/16/23 who noted no overt s/s of aspiration and recommended a Regular Solid and Thin Liquid diet which she has been tolerating. LINES TENDER noted, ?Pt reports globus sensation in throat to this LINES TENDER which could be secondary to reflux (?LPR). Pt is noted to have GERD dx. Pt reports that she frequently feels like pills get stuck and sometimes food gets stuck. She reports taking multiple pills at a time. Pt provided recommendation to take one pill at a time. Pt reports that she coughs with pills/food/water approximately 3x/week.? Pt has Family History of Stomach CA. During her Hospital course she has been on IV antibiotics and is steadily improving. She is currently on 1L Nasal Cannula. MBSImP Results: Lip closure for intraoral bolus containment resulted in interlabial escape, without progression to the anterior lip. Tongue control during bolus hold maintained a cohesive bolus held between tongue to palate seal. Bolus preparation and mastication resulted in slow, prolonged chewing/mashing but with complete re-collection. Bolus transport/lingual motion was with brisk tongue motion. Oral residue was a trace, lining oral structures. Initiation of the pharyngeal swallow occurred when the bolus head was in the valleculae. Soft palate elevation resulted in no bolus between the soft palate and the pharyngeal wall. Laryngeal elevation demonstrated complete superior movement of the thyroid cartilage with complete approximation of the arytenoids to the epiglottic petiole. Anterior hyoid excursion demonstrated complete anterior movement. Epiglottic movement resulted in complete inversion. Laryngeal vestibular closure was incomplete, with a narrow column of air/contrast noted within the laryngeal vestibule at the height of the swallow. Pharyngeal stripping wave was present and complete. Pharyngeal contraction could not be determined due to logistical reasons not related to physiologic impairment. Pharyngoesophageal segment opening was completely distended for complete duration with no obstruction of bolus flow. Tongue base retraction allowed a trace column of contrast or air between the retracted tongue base and the posterior pharyngeal wall. Pharyngeal residue was not present. There was complete pharyngeal clearance. Esophageal clearance in the upright position could not be assessed due to logistical reasons not related to physiologic impairment. Oral Impairment Score: 2 Pharyngeal Impairment Score: 1 (absence of score, component 13) Esophageal Impairment Score: --- (absence of score, component 17) Laryngeal Penetration and Aspiration: Penetration was observed in today's study. Thin Contrast entered the airway, remained above the vocal folds, and was ejected from the airway. SUMMARY: Pt was provided Thin Liquids, Puree Solids and Regular Solid in the Lateral View while sitting down in a wheelchair. No aspiration was noted across consistencies. Flash penetration was observed with consecutive sips of Thin Liquids that was spontaneously cleared. She has mild oral delay and residue that was also subsequently cleared with a liquid wash. Today?s results indicate an intact swallow. Other causes of aspiration pneumonia may need to be ruled-out. In her case given history of GERD she may be at risk of aspiration on laryngeal reflux. An Upper GI series and/of GI consult would be able to investigate these more formally. Liquid Intake Recommendation: Thin Liquid Intake Strategies: Unrestricted Dietary Recommendations: Regular Medication Administration: Whole with Puree Please contact the pharmacy regarding appropriate crushable or liquid drug formulations that are available whenever modified delivery is recommended. Compensatory Strategies Recommended: Sitting Upright (90 deg) Small Bites and Sips Alternate Liquids/Solids Rate of Ingestion Change Supervision during eating and or drinking: Intermittent Supervision Recommended Treatments: Compens. Strategy Educat. Recommendation for Speech Therapy: NA:Typical Evaluation Text Comment: PLAN: Intake Recommendations: Post-Study Functional Oral Intake Scale (FOIS): 7- Total oral intake with no restrictions. Continue Regular Solids and Thin Liquids with Esophageal Precautions including sitting upright before and after meals, smaller more frequent meals, small bites/sips and alternating bites with sips. LINES TENDER will continue to follow during her inpatient stay. Timeline to reassess: PRN Lead Electrical Engineer Clinician/Clinical Fellow: No Supervisory Statement: N/A Speech Language Pathologist: Christiano Thomas M.A., [facility]-LINES TENDER
--- NOTE | 2023-09-18 13:41 | MHC.CM.PN ---
Pt is medically cleared for discharge home with resumption of previous PACKING CLERK and [facility] services, pts PACKING CLERK will transport her home.
--- NOTE | 2023-09-22 09:40 | W.MHC.F2F ---
Service Date Service Date: 09/18/23 Encounter Date of encounter: 09/18/23 Reasons for Services Signs and symptoms assessed: Shortness of breath, pneumonia with hospitalization Homebound: Leaving the home is medically contraindicated at this time without the asist of a device and/or another person due th the listed conditions above and below. Reason homebound: shortness of breath with minimal effort Homebound supporting statement: homebound due to weakness from hospitalization, shortness of breath from minimal effort and therefore needs assistance from another person Certification: Based on the above findings, I certify that this patient is confined to the home and needs intermittent intermediate care, physical therapy and/or speech therapy, or continues to need occupational therapy. The patient is under my care, and I have initiated the establishment of the plan of care. The patient will be followed by a physician who will periodically review the plan of care. Time Spent With Patient Time: Total time managing care of this patient today ____ minutes.
== END 2023-09-18 14:03 | disposition home health service (06) | DRG 720 ==
LOC: HO.ED 09-15 02:44 → HO.EDOVER 09-15 03:34 → HO.S3 09-15 07:41 → HO.EDOVER 09-15 10:43 → HO.IMC 09-15 15:36
PROVIDERS: Admitting Provider Student in an Organized Health Care Education/Training Program; Emergency Provider Emergency Medicine; PCP Family Medicine; Visit Provider Internal Medicine
DX: A41.9 Sepsis, unspecified organism (principal); J96.01 Acute respiratory failure with hypoxia; E87.21 Acute metabolic acidosis; I95.1 Orthostatic hypotension; G47.33 Obstructive sleep apnea (adult) (pediatric); J18.9 Pneumonia, unspecified organism; E87.6 Hypokalemia; E03.9 Hypothyroidism, unspecified; E11.42 Type 2 diabetes mellitus with diabetic polyneuropathy; E11.65 Type 2 diabetes mellitus with hyperglycemia; F39 Unspecified mood [affective] disorder; I10 Essential (primary) hypertension; K76.0 Fatty (change of) liver, not elsewhere classified; J45.40 Moderate persistent asthma, uncomplicated; E83.42 Hypomagnesemia; R25.1 Tremor, unspecified; E66.01 Morbid (severe) obesity due to excess calories; Z68.41 Body mass index [BMI] 40.0-44.9, adult; Z20.822 Contact with and (suspected) exposure to COVID-19; Z79.4 Long term (current) use of insulin; Z79.51 Long term (current) use of inhaled steroids; Z79.82 Long term (current) use of aspirin; Z79.84 Long term (current) use of oral hypoglycemic drugs; Z79.890 Hormone replacement therapy; Z79.899 Other long term (current) drug therapy
CPT/HCPCS: 0241U; 36415; 71045; 72125; 74230; 80048; 80051; 80053; 82803; 82947; 83036; 83605; 83735; 84484; 84702; 85025; 85027; 86140; 87040; 87205; 92610; 92611; 93005; 94640; 99285; J0456; J0696; J1650; J1836; J2405; J3475; J3480

== ENCOUNTER → 2023-09-14 22:22 | Outpatient (BNV) | payer MEDICAID, SELFPAY | PROVIDERS: Admitting Provider Student in an Organized Health Care Education/Training Program; Emergency Provider Emergency Medicine; Visit Provider Internal Medicine Cardiovascular Disease | DX: I45.2 Bifascicular block (principal); R94.31 Abnormal electrocardiogram [ECG] [EKG] | CPT/HCPCS: 93010 ==

== ENCOUNTER → 2023-09-14 23:17 | Outpatient (BNV) | payer MEDICAID, SELFPAY | PROVIDERS: Emergency Provider Emergency Medicine; Visit Provider Student in an Organized Health Care Education/Training Program | DX: J18.9 Pneumonia, unspecified organism (principal); J96.01 Acute respiratory failure with hypoxia | CPT/HCPCS: 99222; 99232; 99239; 99499; G0180 ==

== ENCOUNTER 2023-09-15 02:36 | Outpatient (BNV) | payer MEDICAID, SELFPAY | END 2023-09-16 09:11 | PROVIDERS: Admitting Provider Student in an Organized Health Care Education/Training Program; Emergency Provider Emergency Medicine; PCP Family Medicine; Visit Provider Physician Assistant Surgical | DX: R13.10 Dysphagia, unspecified (principal) | CPT/HCPCS: 74230 ==

== ENCOUNTER 2023-09-15 02:36 | Outpatient (BNV) | payer MEDICAID, SELFPAY | END 2023-09-15 08:29 | PROVIDERS: Admitting Provider Student in an Organized Health Care Education/Training Program; Emergency Provider Emergency Medicine; PCP Family Medicine; Visit Provider Internal Medicine Cardiovascular Disease | DX: R00.0 Tachycardia, unspecified (principal); R94.31 Abnormal electrocardiogram [ECG] [EKG] | CPT/HCPCS: 93010 ==

== ENCOUNTER → 2023-09-15 02:36 | Outpatient (BNV) | payer MEDICAID, SELFPAY | PROVIDERS: Admitting Provider Student in an Organized Health Care Education/Training Program; Emergency Provider Emergency Medicine; PCP Family Medicine; Visit Provider Hospitalist | DX: J18.9 Pneumonia, unspecified organism (principal); J96.01 Acute respiratory failure with hypoxia; J45.40 Moderate persistent asthma, uncomplicated | CPT/HCPCS: 99223 ==

== ENCOUNTER 2023-10-05 10:38 | Outpatient (AMB) | payer MEDICAID, SELFPAY ==
[2023-10-05 10:42] VITALS: BP 112/83; PULSE 86; BMI 40.9
--- NOTE | 2023-10-05 10:42 | A.OFFVIS_ITS ---
Vital Signs 10/05/23 10:42 Height 5 ft 4 in Weight 238 lb 1.588 oz BMI 40.9 BP 112/83 Blood Pressure Location Rt brachial Position Sitting Pulse 86 Pulse Source Pulse Oximeter Intake Visit Reasons: DM 2/CONFIRMED Intake Note: Patient presents today to re-establish treatment for D2MT office visit. Last Diabetic Eye exam: 03/2023 Last Podiatry Visit: Does not see a harvest manager Random Glucose: 172 mg/dL HgA1c: 6.9% 09/15/23 Television Announcer Required: Yes Television Announcer Language: Thai Accompanied by: Other Relationship Allergies No Known Allergies [No Known Allergies*] Allergy (Verified 09/14/23 22:15) Medication List - Last Reconciled 10/05/23 by Debbi Velasco PA-C acetaminophen ER 650 mg PO Q8H PRN albuterol sulfate 2.5 mg inhalation Q4H PRN aripiprazole 15 mg PO BEDTIME aspirin 81 mg PO DAILY benzonatate 200 mg PO TID PRN blood sugar diagnostic (FreeStyle Lite Strips) 5 times a day blood-glucose meter (FreeStyle Lite Meter kit) As directed blood-glucose meter,continuous (FreeStyle Ortiz 3 [place]) Use daily As directed to monitor blood glucose blood-glucose sensor (FreeStyle Ortiz 3 Sensor device) Apply every 14 days As directed to monitor blood glucose cholecalciferol (vitamin D3) 50 mcg PO DAILY clonazepam 1 mg PO TID PRN clonidine HCl 0.1 mg PO BEDTIME PRN cyanocobalamin (vitamin B-12) 1,000 mcg IM [id number] docusate sodium 100 mg PO BID doxycycline hyclate 100 mg PO BID ferrous sulfate 325 mg PO Q OTHER DAY fluticasone furoate 200 mcg/actuation (Arnuity Ellipta) 1 inh inhalation DAILY furosemide 20 mg PO .daily gabapentin 400 mg PO TID glucagon 3 mg/actuation (Baqsimi) 3 mg intranasal ONCE insulin regular hum U-500 conc (Humulin R U-500 (Conc) Insulin Kwikpen) 38 units subcut .twice a day levothyroxine 1 tab PO DAILY@0600 lidocaine 5% 1 patch transdermal DAILY melatonin 5 - 10 mg PO BEDTIME PRN metformin 1,000 mg (2 x 500 mg) PO BID 90 days nortriptyline 1 cap PO BEDTIME nortriptyline 75 mg PO BEDTIME omeprazole 20 mg PO DAILY@0630 pen needle, diabetic (Pentips) USE DIRECTED TWICE DAILY propranolol 80 mg PO BID rosuvastatin (Crestor) 20 mg PO BEDTIME thiamine HCl (vitamin B1) 100 mg PO DAILY tiotropium bromide 2.5 mcg/actuation (Spiriva Respimat) 2 puffs inhalation DAILY 30 days tirzepatide (Mounjaro) 5 mg (0.5 mL) subcut QWEEK TRUEplus Lancets (lancets) 4 times a day NS valsartan 160 mg PO DAILY HPI HPI DM 2/CONFIRMED: Details: Patient is a 57-year-old female with DM type 2 diagnosed 2009 who presents for management of diabetes. She last followed up with Dr. Elias in May. At that time they discussed starting Mounjaro. She is accompanied today by her daughter who helps with translation. Forms filled out. Endo: Diabetes medications: Humulin U 500 40 before breakfast and 40 units with dinner, metformin ER 500 mg 2 pills twice a day, Mounjaro 2.5 mg Qwkly. -Incontinent and therefore not appropriate for SGLT-2 Blood glucose monitoring: Ortiz download shows she is using the sensor 92% of the time. 39% of glucoses are in range with 61% hyperglycemia and 0% hypoglycemia. Pattern shows persistent hyperglycemia throughout the day with post-prandial breakfast spikes. Symptoms reported: denies numbness, tingling, cramping in lower extremities 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:having hypoglycemia 3 X/ wk (nothing on cgm captured). States it is mostly overnight. 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 Machine Sizer: denies Ophthalmology evaluation: 03/2023 Other specialists: urologist (for incontinence) [facility] Medical History Coarse tremors Bleeding hemorrhoids Hyperlipidemia Dental crowns present Bilateral pneumonia Respiratory failure Hypothyroidism Paranoia (psychosis) Stress incontinence Insomnia Anxiety Obstructive sleep apnea on CPAP Scoliosis of thoracolumbar spine Morbid obesity Chronic pain syndrome Sacroiliitis Inappropriate sinus tachycardia GERD (gastroesophageal reflux disease) 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 due to insulin 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 Gastroparesis 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, uncontrolled Anemia Hemorrhoids Migraine Asthma Patellofemoral arthritis Patella-femoral syndrome Lumbar spondylosis Fibromyalgia Tubular adenoma Family history of colon cancer Vitamin D deficiency Dyslipidemia Genu valgum Low back pain Palpitations Chest pain HTN (hypertension) Surgical History Status post hemorrhoidectomy History of hemorrhoidectomy (~09/09/22) History of surgery Hx of section H/O esophagogastroduodenoscopy History of colonoscopy History of arthroscopy of right knee History of bilateral carpal tunnel release History of bladder surgery History of tubal ligation Hx of tonsillectomy Family History Father Stomach cancer Mother Heart disease HTN (hypertension) Diabetes Son No problems noted. Paternal Aunt Stomach cancer Sister Stomach cancer Sister Uterine cancer Social History Household Members: Family Household Members Other:: adult son Housing: Apartment Are you a primary animal care supervisor to a significant other at home: No Do you presently have visiting nurse or other home services: Yes (CLINICAL TRIAL EDUCATOR daily) Alcohol intake: never Patient Tobacco Use Status: Never used Tobacco Second Hand Smoke Exposure: No service: No Current occupational status: disabled Current occupation: lt handed Sexual orientation: Straight/Heterosexual Gender identity: Female Female Reproductive History Menstrual Age of Menarche: 17 Physical Exam Vital Signs: Last Vital Signs Pulse 86 10/05/23 10:42 BP 112/83 10/05/23 10:42 BMI result Body Mass Index 40.9 Const Orientation/consciousness: patient oriented x3 Neck Neck: Yes no lymphadenopathy Thyroid: Thyroid normal Carotids: no bruits Resp Auscultation: clear to auscultation bilaterally Cardio Rate: regular rate Rhythm: regular rhythm Heart sounds: S1 normal heart sound present and S2 normal heart sound present Peripheral pulses: dorsalis pedis present Neuro General: patient oriented x3, gait normal and no focal motor deficits Extrem Other: Monofilament sensation intact bilaterally. Vibratory sensation intact bilaterally. Skin intact. General: Yes normal to inspection Results Reviewed Results Reviewed: Laboratory Last Values Glucose (Clinic) 172 mg/dL (60-115) H 10/05/23 10:48 Laboratory Tests 09/17/23 17:15 Sodium 144 Potassium 3.5 Chloride 103 Carbon Dioxide 29 Anion Gap 16 Creatinine 0.63 Estim Creat Clear Calc 110.1 Estimated GFR > 60 Assessment & Plan Assessment & Plan (1) 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, uncontrolled: Code(s): E11.65 - Type 2 diabetes mellitus with hyperglycemia Category: Medical Qualifiers: Glycemic state: with hypoglycemia Coma presence: without coma Qualified Code(s): E11.649 - Type 2 diabetes mellitus with hypoglycemia without coma Plan: increase mounjaro switch to freestyle ortiz 3 continue follow up with cde (2) 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 call if still getting hypoglycemic (3) HTN (hypertension): Code(s): I10 - Essential (primary) hypertension Category: Medical Qualifiers: Hypertension type: essential hypertension Qualified Code(s): I10 - Essential (primary) hypertension Plan: wnl continue current plan (4) Morbid obesity: Code(s): E66.01 - Morbid (severe) obesity due to excess calories Category: Medical Plan: will increase mounjaro Medications: New tirzepatide (Mounjaro) 5 mg (0.5 mL) subcut QWEEK 2 mL 2RF blood-glucose meter,continuous (FreeStyle Ortiz 3 [place]) Use daily As directed to monitor blood glucose 1 ea 0RF blood-glucose sensor (FreeStyle Ortiz 3 Sensor device) Apply every 14 days As directed to monitor blood glucose 2 ea 11RF E11.9 - Type 2 diabetes mellitus without complications, Z79.4 - 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 Discontinued flash glucose sensor (FreeStyle Ortiz 2 Sensor kit) Discontinued Reason: Doctor's Order USE DIRECTED AND CHANGE EVERY 14 DAYS 2 kits 6RF flash glucose scanning reader (FreeStyle Ortiz 2 [place]) Discontinued Reason: Doctor's Order As directed 1 ea 0RF Coding Level of Care Code Est Pt Level 4 (64877) Diagnoses Uncontrolled type 2 diabetes mellitus with hypoglycemia without coma E11.649 Glycemic state: with hypoglycemia Coma presence: without coma 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
[2023-10-05 10:52] LABS: Glucose, Whole Blood 172 mg/dL (60-115)
== END 2023-10-05 11:17 | disposition home or self-care (01) ==
PROVIDERS: PCP Family Medicine; Visit Provider Physician Assistant
DX: E11.649 Type 2 diabetes mellitus with hypoglycemia without coma (principal); Z79.4 Long term (current) use of insulin; I10 Essential (primary) hypertension; E66.01 Morbid (severe) obesity due to excess calories; Z68.41 Body mass index [BMI] 40.0-44.9, adult
CPT/HCPCS: 99214

== ENCOUNTER 2023-10-22 09:04 | Outpatient (AMB) | payer MEDICAID, SELFPAY ==
--- NOTE | 2023-10-22 10:23 | A.OFFVIS_ITS ---
Intake Intake Visit Reasons: DM Yeast Fermentation Attendant Required: Yes Yeast Fermentation Attendant Language: Knife Edger Name: Coty [facility] [place] Accompanied by: Son Allergies No Known Allergies [No Known Allergies*] Allergy (Verified 09/14/23 22:15) HPI Comprehensive Diabetes Asmnt Most Recent Diabetes Results: Creatinine 0.63 mg/dL (0.5-1.4) 09/17/23 Blood Urea Nitrogen 8 mg/dL (9-16) L 09/17/23 Sodium 144 mmol/L (135-145) 09/17/23 Potassium 3.5 mmol/L (3.3-5.1) 09/17/23 Chloride 103 mmol/L (96-108) 09/17/23 Carbon Dioxide 29 mmol/L (22-29) 09/17/23 Calcium 9.3 mg/dL (8.4-10.2) 09/17/23 AST 17 U/L (5-31) 09/14/23 ALT 8 U/L (0-31) 09/14/23 Total Protein 8.0 g/dL (6.5-8.0) 09/14/23 Albumin 4.0 g/dL (3.5-5.0) 09/14/23 PEND[facility] S[facility] TO [facility] Medical History Coarse tremors Bleeding hemorrhoids Hyperlipidemia Dental crowns present Bilateral pneumonia Respiratory failure Hypothyroidism Paranoia (psychosis) Stress incontinence Insomnia Anxiety Obstructive sleep apnea on CPAP Scoliosis of thoracolumbar spine Morbid obesity Chronic pain syndrome Sacroiliitis Inappropriate sinus tachycardia GERD (gastroesophageal reflux disease) 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 due to insulin long-term (current) use of insulin Gastroparesis 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, uncontrolled Anemia Hemorrhoids Migraine Asthma Patellofemoral arthritis Patella-femoral syndrome Lumbar spondylosis Fibromyalgia Tubular adenoma Family history of colon cancer Vitamin D deficiency Dyslipidemia Genu valgum Low back pain Palpitations Chest pain HTN (hypertension) Surgical History Status post hemorrhoidectomy History of hemorrhoidectomy (~09/09/22) History of surgery Hx of section H/O esophagogastroduodenoscopy History of colonoscopy History of arthroscopy of right knee History of bilateral carpal tunnel release History of bladder surgery History of tubal ligation Hx of tonsillectomy Family History Father Stomach cancer Mother Heart disease HTN (hypertension) Diabetes Son No problems noted. Paternal Aunt Stomach cancer Sister Stomach cancer Sister Uterine cancer Social History Household Members: Family Household Members Other:: adult son Housing: Apartment Are you a primary respiratory care practitioner to a significant other at home: No Do you presently have visiting nurse or other home services: Yes (ELECTRONIC DRAFTER daily) Alcohol intake: never Patient Tobacco Use Status: Never used Tobacco Second Hand Smoke Exposure: No service: No Current occupational status: disabled Current occupation: lt handed Sexual orientation: Straight/Heterosexual Gender identity: Female Female Reproductive History Menstrual Age of Menarche: 17 Assessment & Plan Assessment & Plan (1) 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, uncontrolled: Code(s): E11.65 - Type 2 diabetes mellitus with hyperglycemia Qualifiers: Coma presence: without coma Glycemic state: with hypoglycemia Qualified Code(s): E11.649 - Type 2 diabetes mellitus with hypoglycemia without coma Plan: Personal Continuous Glucose Monitor: Patients CGM information reviewed Reviewed patient's sensor data: 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: ? 0% Hyperglycemia:? 80% Time in Range:? 20% Average glucose for the last 2 weeks? 217 mg/dL Approximately 2 weeks ago patient Mounjaro was increase to 5 mg, patient's Humulin U 500 was decreased to 35 units b.i.d. Currently patient's glucose levels are running above target recommended to patient she increase Humulin U 500-38 units b.i.d. Patient brought in samples of protein drink and protein bars Reviewed with patient how to read food labels, to determine how many carbohydrates and servings are in each package Reviewed how to interpret trend arrows Reminded patient that to check finger sticks if symptoms do not match sensor reading. Discussed lag time between finger stick and sensor data.? Patient able to insert sensor independently at home without issue.? Patient will return in 1 month for blood glucose review Portions of this note were created using voice recognition software, please excuse any words or phrases that may have been misinterpreted. Coding Level of Care Code Est Pt Level 1 (49443) Diagnoses Uncontrolled type 2 diabetes mellitus with hypoglycemia without coma E11.649 Coma presence: without coma Glycemic state: with hypoglycemia
== END 2023-10-22 10:28 | disposition home or self-care (01) ==
PROVIDERS: PCP Family Medicine; Visit Provider Registered Nurse Diabetes Educator
DX: E11.649 Type 2 diabetes mellitus with hypoglycemia without coma (principal)

== ENCOUNTER → 2023-10-22 09:04 | Outpatient (BNVA) | payer MEDICAID, SELFPAY | PROVIDERS: PCP Family Medicine; Visit Provider Registered Nurse Diabetes Educator | DX: E11.65 Type 2 diabetes mellitus with hyperglycemia (principal); E11.21 Type 2 diabetes mellitus with diabetic nephropathy; E11.649 Type 2 diabetes mellitus with hypoglycemia without coma; Z79.4 Long term (current) use of insulin | CPT/HCPCS: 99211 ==

== ENCOUNTER 2023-11-26 10:02 | Outpatient (AMB) | payer MEDICAID, SELFPAY ==
--- NOTE | 2023-11-26 10:52 | MHC.AMDMED ---
Intake Intake Visit Reasons: 30 min/CONFIRMED System Support Analyst Required: Yes System Support Analyst Language: Computer Aided Design Drafter Name: Reinaldo [facility] [place] Accompanied by: Son Allergies No Known Allergies [No Known Allergies*] Allergy (Verified 09/14/23 22:15) HPI Comprehensive Diabetes Asmnt Most Recent Diabetes Results: Hemoglobin A1c 7.5 % 09/23/18 Microalb/Creat Ratio 14.4 ug/mg cr (<30) 01/12/23 Cholesterol 91 mg/dL (<200) 12/12/22 HDL Cholesterol 38 mg/dL (>40) L 12/12/22 Triglycerides 112 mg/dL (<150) 12/12/22 Creatinine 0.63 mg/dL (0.5-1.4) 09/17/23 Blood Urea Nitrogen 8 mg/dL (9-16) L 09/17/23 Sodium 144 mmol/L (135-145) 09/17/23 Potassium 3.5 mmol/L (3.3-5.1) 09/17/23 Chloride 103 mmol/L (96-108) 09/17/23 Carbon Dioxide 29 mmol/L (22-29) 09/17/23 Calcium 9.3 mg/dL (8.4-10.2) 09/17/23 AST 17 U/L (5-31) 09/14/23 ALT 8 U/L (0-31) 09/14/23 Total Protein 8.0 g/dL (6.5-8.0) 09/14/23 Albumin 4.0 g/dL (3.5-5.0) 09/14/23 [facility] Medical History Coarse tremors Bleeding hemorrhoids Hyperlipidemia Dental crowns present Bilateral pneumonia Respiratory failure Hypothyroidism Paranoia (psychosis) Stress incontinence Insomnia Anxiety Obstructive sleep apnea on CPAP Scoliosis of thoracolumbar spine Morbid obesity Chronic pain syndrome Sacroiliitis Inappropriate sinus tachycardia GERD (gastroesophageal reflux disease) 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 due to insulin 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 Gastroparesis 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, uncontrolled Anemia Hemorrhoids Migraine Asthma Patellofemoral arthritis Patella-femoral syndrome Lumbar spondylosis Fibromyalgia Tubular adenoma Family history of colon cancer Vitamin D deficiency Dyslipidemia Genu valgum Low back pain Palpitations Chest pain HTN (hypertension) Surgical History Status post hemorrhoidectomy History of hemorrhoidectomy (~09/09/22) History of surgery Hx of section H/O esophagogastroduodenoscopy History of colonoscopy History of arthroscopy of right knee History of bilateral carpal tunnel release History of bladder surgery History of tubal ligation Hx of tonsillectomy Family History Father Stomach cancer Mother Heart disease HTN (hypertension) Diabetes Son No problems noted. Paternal Aunt Stomach cancer Sister Stomach cancer Sister Uterine cancer Social History Household Members: Family Household Members Other:: adult son Housing: Apartment Are you a primary home care consultant to a significant other at home: No Do you presently have visiting nurse or other home services: Yes (CHECKERING MACHINE ADJUSTER daily) Alcohol intake: never Patient Tobacco Use Status: Never used Tobacco Second Hand Smoke Exposure: No service: No Current occupational status: disabled Current occupation: lt handed Sexual orientation: Straight/Heterosexual Gender identity: Female Female Reproductive History Menstrual Age of Menarche: 17 Assessment & Plan Assessment & Plan (1) 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, uncontrolled: Code(s): E11.65 - Type 2 diabetes mellitus with hyperglycemia Qualifiers: Glycemic state: with hypoglycemia Coma presence: without coma Qualified Code(s): E11.649 - Type 2 diabetes mellitus with hypoglycemia without coma Plan: Personal Continuous Glucose Monitor: Patients CGM information reviewed Reviewed patient's sensor data: 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: ? 0% Hyperglycemia:? 75% Time in Range:? 25% Average glucose for the last 2 weeks? 215 mg/dL Patient did not increase Humulin U 500 to 38 units b.i.d. as discussed at last visit Glucose levels running above target. Instructed patient to increase Humulin U 500-38 units b.i.d., reviewed with patient how to treat hypoglycemia with rule of 15s, contact director of music if hypoglycemia increases Patient also requested increase in Mounjaro from 5 mg to 7.5 mg, message sent to PA to send new script if appropriate. Reviewed how to interpret trend arrows Reminded patient that to check finger sticks if symptoms do not match sensor reading. Discussed lag time between finger stick and sensor data.? Patient able to insert sensor independently at home without issue.? Patient will follow-up with director of music in 2 months Portions of this note were created using voice recognition software, please excuse any words or phrases that may have been misinterpreted. Patient Instructions: Aumente Humulin u500 de 35 unidades a 38 unidades 2 veces al d?a Coding Level of Care Code Est Pt Level 1 (39898) Diagnoses Uncontrolled type 2 diabetes mellitus with hypoglycemia without coma E11.649 Glycemic state: with hypoglycemia Coma presence: without coma
== END 2023-11-26 10:55 | disposition home or self-care (01) ==
PROVIDERS: PCP Family Medicine; Visit Provider Registered Nurse Diabetes Educator
DX: E11.649 Type 2 diabetes mellitus with hypoglycemia without coma (principal)

== ENCOUNTER → 2023-11-26 10:02 | Outpatient (BNVA) | payer MEDICAID, SELFPAY | PROVIDERS: PCP Family Medicine; Visit Provider Registered Nurse Diabetes Educator | DX: E11.649 Type 2 diabetes mellitus with hypoglycemia without coma (principal) | CPT/HCPCS: 99211 ==

== ENCOUNTER 2023-12-07 10:22 | Outpatient (AMB) | payer MEDICAID, SELFPAY ==
--- NOTE | 2023-12-07 10:33 | MHC.OFFVIS ---
Intake Visit Reasons: OV-Bilat knee pain Intake Note: Candace a 58 year old female who presents today for a follow up of bilateral knee OA. Patient reports Durolane injection on 07/10/23 provided her with relief for about 3 months. Her pain has returned with her right knee being the worse. She is requesting to have cortisone injections today. Graphite Pan Drier Tender Required: Yes Graphite Pan Drier Tender Services: Graphite Pan Drier Tender Offered & Declined Accompanied by: Daughter Allergies No Known Allergies [No Known Allergies*] Allergy (Verified 12/07/23 10:36) Medication List - Last Reconciled 12/07/23 by Rahul Loredo PA-C acetaminophen ER 650 mg PO Q8H PRN albuterol sulfate 2.5 mg inhalation Q4H PRN aripiprazole 15 mg PO BEDTIME aspirin 81 mg PO DAILY benzonatate 200 mg PO TID PRN blood sugar diagnostic (FreeStyle Lite Strips) 5 times a day blood-glucose meter (FreeStyle Lite Meter kit) As directed blood-glucose meter,continuous (FreeStyle Ortiz 3 Hewett) Use daily As directed to monitor blood glucose blood-glucose sensor (FreeStyle Ortiz 3 Sensor device) Apply every 14 days As directed to monitor blood glucose cholecalciferol (vitamin D3) 50 mcg PO DAILY clonazepam 1 mg PO TID PRN clonidine HCl 0.1 mg PO BEDTIME PRN cyanocobalamin (vitamin B-12) 1,000 mcg IM [id number] docusate sodium 100 mg PO BID doxycycline hyclate 100 mg PO BID ferrous sulfate 325 mg PO Q OTHER DAY fluticasone furoate 200 mcg/actuation (Arnuity Ellipta) 1 inh inhalation DAILY furosemide 20 mg PO QAM gabapentin 400 mg PO TID glucagon 3 mg/actuation (Baqsimi) 3 mg intranasal ONCE insulin regular hum U-500 conc (Humulin R U-500 (Conc) Insulin Kwikpen) 60 units (0.12 mL) subcut BID levothyroxine 1 tab PO DAILY@0600 lidocaine 5% 1 patch transdermal DAILY melatonin 5 - 10 mg PO BEDTIME PRN metformin 1,000 mg (2 x 500 mg) PO BID 90 days nortriptyline 1 cap PO BEDTIME nortriptyline 75 mg PO BEDTIME omeprazole 20 mg PO DAILY@0630 pen needle, diabetic (Pentips) USE DIRECTED TWICE DAILY propranolol 80 mg PO BID rosuvastatin (Crestor) 20 mg PO BEDTIME thiamine HCl (vitamin B1) 100 mg PO DAILY tiotropium bromide 2.5 mcg/actuation (Spiriva Respimat) 2 puffs inhalation DAILY 30 days tirzepatide (Mounjaro) 7.5 mg (0.5 mL) subcut QWEEK TRUEplus Lancets (lancets) 4 times a day NS valsartan 160 mg PO DAILY HPI HPI OV-Bilat knee pain: Details: 58-year-old female who returns to the office today for a follow-up of bilateral knee pain. She had her last Durolane gel injection on 07/10/23 that provided her relief for about 3 months. She currently states her bilateral knee pain has returned with the right knee being the worse. She is interested in having a cortisone injection. She has a history of diabetes. [facility] Medical History Coarse tremors Bleeding hemorrhoids Hyperlipidemia Dental crowns present Bilateral pneumonia Respiratory failure Hypothyroidism Paranoia (psychosis) Stress incontinence Insomnia Anxiety Obstructive sleep apnea on CPAP Scoliosis of thoracolumbar spine Morbid obesity Chronic pain syndrome Sacroiliitis Inappropriate sinus tachycardia GERD (gastroesophageal reflux disease) 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 due to insulin medical terminologist (current) use of insulin Gastroparesis 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, uncontrolled Anemia Hemorrhoids Migraine Asthma Patellofemoral arthritis Patella-femoral syndrome Lumbar spondylosis Fibromyalgia Tubular adenoma Family history of colon cancer Vitamin D deficiency Dyslipidemia Genu valgum Low back pain Palpitations Chest pain HTN (hypertension) Surgical History Status post hemorrhoidectomy History of hemorrhoidectomy (~09/09/22) History of surgery Hx of section H/O esophagogastroduodenoscopy History of colonoscopy History of arthroscopy of right knee History of bilateral carpal tunnel release History of bladder surgery History of tubal ligation Hx of tonsillectomy Family History Father Stomach cancer Mother Heart disease HTN (hypertension) Diabetes Son No problems noted. Paternal Aunt Stomach cancer Sister Stomach cancer Sister Uterine cancer Social History Household Members: Family Household Members Other:: adult son Housing: Apartment Are you a primary tree care foreman to a significant other at home: No Do you presently have visiting nurse or other home services: Yes (ANESTHESIA DIRECTOR daily) Alcohol intake: never Patient Tobacco Use Status: Never used Tobacco Second Hand Smoke Exposure: No service: No Current occupational status: disabled Current occupation: lt handed Sexual orientation: Straight/Heterosexual Gender identity: Female Female Reproductive History Menstrual Age of Menarche: 17 Review of Systems Const All systems reviewed & are unremarkable except as noted in HPI and below Physical Exam Extrem Other: Bilateral knee: Skin intact, no erythema or joint effusion. Tenderness along the medial and lateral joint line. Full ROM with crepitus. Negative Mami?s. No ligamentous laxity. NVI. ? Office Procedures Joint Injection/Aspiration Joint Injection/Aspiration Primary Site: left knee Secondary Site: right knee Prep: site was prepped using aseptic technique, ethochloride spray was applied and injection warnings given Injected: 40 mg of, DepoMedrol, with 8 mL of, 1% plain lidocaine and in the joint Approach Used: anterolateral Procedure: The patient tolerated the procedure well and there was some relief with the local anesthesia Coding 30422 - Glenohumeral/Tronchanteric Bursa/Intraarticular Procedure code (CPT) selection complete Assessment & Plan Assessment & Plan (1) Osteoarthritis of knees, bilateral: Code(s): M17.0 - Bilateral primary osteoarthritis of knee Category: Medical Qualifiers: Osteoarthritis type: primary Qualified Code(s): M17.0 - Bilateral primary osteoarthritis of knee Plan We discussed options today, which include steroid injection. The patient did consent to move forward with the bilateral knee injection, which was tolerated well. I recommended rest, ice, and elevation and OTC anti-inflammatories as needed for discomfort. We also discussed diabetes and the effect the steroid injection can have on their blood glucose levels; therefore, they will continue to monitor these very closely over the next 72 hours. We will also get her preapproved for gel injections. If there are concerns, they should report to the ED immediately. Patient Instructions: Scribed for Rahul Loredo PA-C, by mahogany Mars scribe, on 12/07/2023 at 10:45 AM EST.? I, Rahul Loredo PA-C, have personally reviewed and agree with the information entered by the beth. Coding Level of Care Code Est Pt Level 3 (78503) Complex EM visit Add On G2211 Diagnoses Primary osteoarthritis of both knees M17.0 Osteoarthritis type: primary CPT Codes Coding - Joint 7: 08800 - Glenohumeral/Tronchanteric Bursa/Intraarticular ([id number])
== END 2023-12-07 11:15 | disposition home or self-care (01) ==
PROVIDERS: PCP Family Medicine; Visit Provider Physician Assistant
DX: M17.0 Bilateral primary osteoarthritis of knee (principal)
CPT/HCPCS: 20610; 99213

== ENCOUNTER → 2023-12-07 10:22 | Outpatient (BNVA) | payer MEDICAID, SELFPAY | PROVIDERS: PCP Family Medicine; Visit Provider Physician Assistant | DX: M17.0 Bilateral primary osteoarthritis of knee (principal) | CPT/HCPCS: 20610; 99212; J1010; J2003 ==

== ENCOUNTER 2023-12-28 08:29 | Outpatient (REF) | payer MEDICAID, SELFPAY ==
--- NOTE | ~2023-12-28 | US_ITS ---
EXAMINATION: US ABDOMEN COMPLETE CLINICAL INFORMATION: Unspecified cirrhosis of liver. HCC protocol. COMPARISON: Limited abdominal ultrasound 04/17/2023. CT abdomen and pelvis 09/12/2022. Ultrasound abdomen complete with elastography 07/22/2022. TECHNIQUE: Real-time imaging of the abdominal viscera. FINDINGS: PANCREAS: The pancreas appears unremarkable, without masses or ductal dilatation, with the exception of the tail which is obscured by bowel gas. ABDOMINAL AORTA: The proximal, mid, and distal segments are normal in caliber. INFERIOR VENA CAVA: Visualized portions are normal. LIVER: The liver is enlarged measuring at least 20 cm in greatest length with increased echogenicity consistent with hepatic steatosis. Liver border is lobular. No focal hepatic lesion. There is no intrahepatic biliary duct dilatation seen. GALLBLADDER: Normal. The gallbladder is physiologically distended without evidence of stones, sludge, polyps, wall thickening or pericholecystic fluid. COMMON BILE DUCT: Normal in caliber measuring 0.5 cm in diameter. RIGHT KIDNEY: Normal. No hydronephrosis. No renal calculi or focal parenchymal lesions. The kidney measures 12.8 cm in maximum dimension. LEFT KIDNEY: Normal. No hydronephrosis. No renal calculi or focal parenchymal lesions. The kidney measures 13.4 cm in maximum dimension. SPLEEN: Normal. The spleen measures 11.6 cm in maximum dimension. FREE FLUID: None. US/US abdomen complete IMPRESSION: Enlarged fatty liver with lobular border and cirrhotic appearance. No focal mass is seen. Electronically signed by: Júnior Soto MD 01/28/2024 11:06 PM [facility] [place]
[2023-12-28 08:49] LABS: MANUAL DIFF FLAG NO
[2023-12-28 09:00] LABS: Basophils Absolute Auto 0.1 X10*3/uL (0.0-0.2); Basophils Percent Auto 0.4 % (0-2); Eosinophils Absolute Auto 0.1 X10*3/uL (0.0-0.4); Eosinophils Percent Auto 1.1 % (0-4); Hematocrit 40.8 % (37.0-47.0); Hemoglobin 12.1 g/dl (12.0-16.0); Imm Gran Abs Auto 0.06 X10*3/uL (0.00-0.03); Imm Gran Pct Auto 0.5 % (0.0-0.4); Lymphocytes Absolute Auto 4.5 X10*3/uL (1.2-4.9); Lymphocytes Percent Auto 36.8 % (20-40); Mean Corpuscular HGB Conc 29.7 g/dl (31.0-35.0); Mean Corpuscular Hemoglobin 25.4 pg (27.0-33.0); Mean Corpuscular Volume 85.7 fL (80.0-98.0); Mean Platelet Volume 10.2 fL (9.4-12.3); Monocytes Absolute Auto 0.6 X10*3/uL (0.1-1.2); Neutrophils Absolute Auto 6.9 x10*3/uL (2.0-8.3); Neutrophils Percent Auto 56.2 % (45-73); Platelet Count 334 X10*3/uL (160-400); Red Blood Count 4.76 X10*6/uL (4.20-5.50); White Blood Count 12.2 X10*3/uL (4.8-10.8)
[2023-12-28 09:08] LABS: Estimated Average Glucose 177 mg/dL; Hemoglobin A1C 195.2116 umol/L; Hemoglobin A1c % 7.8 % (<6.0)
[2023-12-28 09:31] LABS: Alanine Aminotransferase 22 U/L (0-31); Albumin Level 4.1 g/dL (3.5-5.0); Alkaline Phosphatase 144 U/L (39-117); Anion Gap 12 (12-20); Aspartate Amino Transferase 19 U/L (5-31); Bilirubin Total 0.5 mg/dL (0.0-1.0); Blood Urea Nitrogen 13 mg/dL (9-16); Calcium 9.4 mg/dL (8.4-10.2); Carbon Dioxide 28 mmol/L (22-29); Chloride 104 mmol/L (96-108); Estimated Glomerular Filt Rate > 60; Glucose Random 220 mg/dL (60-115); Potassium 4.1 mmol/L (3.3-5.1); Sodium 140 mmol/L (135-145)
[2023-12-30 01:58] LABS: Alpha 1 Anti-trypsin 163 mg/dL (83-199); Ceruloplasmin 30 mg/dL (14-48)
== END 2023-12-28 08:30 | disposition home or self-care (01) ==
LOC: HO.US 08:29
PROVIDERS: PCP Family Medicine; Visit Provider Physician Assistant
DX: K74.60 Unspecified cirrhosis of liver (principal); K76.0 Fatty (change of) liver, not elsewhere classified
CPT/HCPCS: 36415; 76700; 80053; 82103; 82390; 83036; 85025

== ENCOUNTER 2024-01-04 10:04 | Outpatient (AMB) | payer MEDICAID, SELFPAY ==
--- NOTE | 2024-01-04 10:07 | MHC.OFFVIS ---
Vital Signs 01/04/24 10:10 Height 5 ft 4 in Weight 239 lb 13.807 oz BMI 41.2 BP 100/66 Blood Pressure Location Rt brachial Position Sitting Pulse 88 Pulse Source Pulse Oximeter Intake Visit Reasons: Type 2 DM-per Debbi to see Intake Note: Patient present today to follow up on Type 2 Diabetes Mellitus. Last Diabetic Eye exam: 03/2023 has upcoming appt 03/2024, goes yearly. Last Podiatry Visit: Does not see a Manpower Development Specialist Random Glucose: 153 mg/dl HgA1C: 7.8% 12/28/2023 Repair Armature Winder Required: Yes Repair Armature Winder Language: Simplex Printer Installer Services: Repair Armature Winder Present Repair Armature Winder Name: Adriana CMI Information Interpreted: non-clinical & clinical Accompanied by: Son Allergies No Known Allergies [No Known Allergies*] Allergy (Verified 01/04/24 10:11) HPI Comments Details: Patient is a 58-year-old female with DM type 2 diagnosed 2009 who presents for management of diabetes. Past medical history: 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, HLD, HTN, gastroparesis Micro and macrovascular complications: retinopathy, Diabetes medications: Humulin U 500 32 before breakfast and 32 units with dinner, metformin ER 500 mg 2 pills twice a day. . Mounjaro 7.5 mg Qwkly for 4 wks . Blood glucose monitoring: Ortiz download shows she is using the sensor 68% of the time. Average glucose is 168 with G mi of 7.3% and variability 24.7%. 65% of glucoses are in range with 35% hyperglycemia and 0% hypoglycemia. Pattern shows persistent hyperglycemia throughout the day with mildpost-prandial breakfast spikes. Symptoms reported: denies numbness, tingling, cramping in lower extremities 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:having infrequent hypoglycemia in afternoon Exercise: walking when weather permit, less in winter with cold. Manpower Development Specialist: denies Ophthalmology evaluation: lNov 2022 has appt 03/2023 Other specialists: urologist (for incontinence) Laboratory Tests 03/20/21 05/27/21 05/27/21 10:48 10:12 10:12 Creatinine 0.69 Estimated GFR > 60 Hemoglobin A1c % 7.1 Triglycerides 97 Cholesterol 102 LDL Cholesterol, Calc 46 HDL Cholesterol 37 Vitamin B12 25-OH Vitamin D Total 42.3 TSH 2.40 Microalb/Creat Ratio 46.2 05/27/21 10:12 Creatinine Estimated GFR Hemoglobin A1c % Triglycerides Cholesterol LDL Cholesterol, Calc HDL Cholesterol Vitamin B12 413 25-OH Vitamin D Total TSH Microalb/Creat Ratio [facility] Medical History Coarse tremors Bleeding hemorrhoids Hyperlipidemia Dental crowns present Bilateral pneumonia Respiratory failure Hypothyroidism Paranoia (psychosis) Stress incontinence Insomnia Anxiety Obstructive sleep apnea on CPAP Scoliosis of thoracolumbar spine Morbid obesity Chronic pain syndrome Sacroiliitis Inappropriate sinus tachycardia GERD (gastroesophageal reflux disease) 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 due to insulin long term care pharmacist (current) use of insulin Gastroparesis 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, uncontrolled Anemia Hemorrhoids Migraine Asthma Patellofemoral arthritis Patella-femoral syndrome Lumbar spondylosis Fibromyalgia Tubular adenoma Family history of colon cancer Vitamin D deficiency Dyslipidemia Genu valgum Low back pain Palpitations Chest pain HTN (hypertension) Surgical History Status post hemorrhoidectomy History of hemorrhoidectomy (~09/09/22) History of surgery Hx of section H/O esophagogastroduodenoscopy History of colonoscopy History of arthroscopy of right knee History of bilateral carpal tunnel release History of bladder surgery History of tubal ligation Hx of tonsillectomy Family History Father Stomach cancer Mother Heart disease HTN (hypertension) Diabetes Son No problems noted. Paternal Aunt Stomach cancer Sister Stomach cancer Sister Uterine cancer Social History Household Members: Family Household Members Other:: adult son Housing: Apartment Are you a primary customer care consultant to a significant other at home: No Do you presently have visiting nurse or other home services: Yes (PRINCIPAL QUALITY ENGINEER daily) Alcohol intake: never Patient Tobacco Use Status: Never used Tobacco Second Hand Smoke Exposure: No service: No Current occupational status: disabled Current occupation: lt handed Sexual orientation: Straight/Heterosexual Gender identity: Female Female Reproductive History Menstrual Age of Menarche: 17 Physical Exam Vital Signs: BMI result Body Mass Index 41.2 Assessment & Plan Assessment & Plan (1) 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, uncontrolled: Code(s): E11.65 - Type 2 diabetes mellitus with hyperglycemia Category: Medical Qualifiers: Coma presence: without coma Glycemic state: with hypoglycemia Qualified Code(s): E11.649 - Type 2 diabetes mellitus with hypoglycemia without coma Plan: is a 58-year-old female with history of type 2 diabetes being managed with U-500 insulin twice a day , metformin and Mounjaro with improving good but not optimal glycemic control . She has known microvascular complications namely retinopathy. Plan is to increase the Mounjaro to 10 mg Q weekly. Patient was told to report any hypoglycemia for adjustment of the U-500 insulin. Will check microalbumin to creatinine ratio. Patient will follow up with Mishel Diaz NP in 3 months Orders: Orders Microalbumin, Random (w Creat) Today E11.649 - Type 2 diabetes mellitus with hypoglycemia without coma Medications: New tirzepatide (Mounjaro) 10 mg (0.5 mL) subcut QWEEK 2 mL 5RF Discontinued tirzepatide (Mounjaro) Discontinued Reason: Doctor's Order 7.5 mg (0.5 mL) subcut QWEEK 2 mL 3RF Coding Level of Care Code Est Pt Level 4 (43602) Complex EM visit Add On G2211 Diagnoses Uncontrolled type 2 diabetes mellitus with hypoglycemia without coma E11.649 Coma presence: without coma Glycemic state: with hypoglycemia
[2024-01-04 10:10] VITALS: BP 100/66; PULSE 88; BMI 41.2
[2024-01-04 10:20] LABS: Glucose, Whole Blood 153 mg/dL (60-115)
== END 2024-01-04 10:30 | disposition home or self-care (01) ==
LOC: HO.ENCR 10:04
PROVIDERS: PCP Family Medicine; Visit Provider Internal Medicine Endocrinology, Diabetes & Metabolism
DX: E11.649 Type 2 diabetes mellitus with hypoglycemia without coma (principal)
CPT/HCPCS: 99214

== ENCOUNTER → 2024-01-04 10:04 | Outpatient (BNVA) | payer MEDICAID, SELFPAY | PROVIDERS: PCP Family Medicine; Visit Provider Internal Medicine Endocrinology, Diabetes & Metabolism | DX: E11.649 Type 2 diabetes mellitus with hypoglycemia without coma (principal); Z79.84 Long term (current) use of oral hypoglycemic drugs | CPT/HCPCS: 82947; 99212 ==

== ENCOUNTER 2024-01-04 10:52 | Outpatient (REF) | payer MEDICAID, SELFPAY ==
[2024-01-04 15:12] LABS: Creatinine Urine 50.63 mg/dL; Microalbum/Creatinine Ratio Ur 9.8 ug/mg cr (<30)
== END 2024-01-04 10:53 | disposition home or self-care (01) ==
LOC: HO.10HDLNP 10:52
PROVIDERS: Visit Provider Internal Medicine Endocrinology, Diabetes & Metabolism
DX: E11.649 Type 2 diabetes mellitus with hypoglycemia without coma (principal)
CPT/HCPCS: 82043; 82570

== ENCOUNTER 2024-01-13 11:16 | Outpatient (AMB) | payer MEDICAID, SELFPAY ==
--- NOTE | 2024-01-13 11:37 | A.OFFVIS_ITS ---
Vital Signs 01/13/24 11:40 Height 5 ft 4 in Weight 239 lb BMI 41.0 Intake Visit Reasons: INJ-B/L knee Durolane injection Intake Note: Candace a 58 year old female who presents today for bilateral knee Durolane injection. Allergies No Known Allergies [No Known Allergies*] Allergy (Verified 01/13/24 11:42) HPI HPI INJ-B/L knee Durolane injection : Details: 58-year-old female who returns to the office today for bilateral knee Durolane gel injection. [facility] Medical History Coarse tremors Bleeding hemorrhoids Hyperlipidemia Dental crowns present Bilateral pneumonia Respiratory failure Hypothyroidism Paranoia (psychosis) Stress incontinence Insomnia Anxiety Obstructive sleep apnea on CPAP Scoliosis of thoracolumbar spine Morbid obesity Chronic pain syndrome Sacroiliitis Inappropriate sinus tachycardia GERD (gastroesophageal reflux disease) 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 due to insulin care home (current) use of insulin Gastroparesis 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, uncontrolled Anemia Hemorrhoids Migraine Asthma Patellofemoral arthritis Patella-femoral syndrome Lumbar spondylosis Fibromyalgia Tubular adenoma Family history of colon cancer Vitamin D deficiency Dyslipidemia Genu valgum Low back pain Palpitations Chest pain HTN (hypertension) Surgical History Status post hemorrhoidectomy History of hemorrhoidectomy (~09/09/22) History of surgery Hx of section H/O esophagogastroduodenoscopy History of colonoscopy History of arthroscopy of right knee History of bilateral carpal tunnel release History of bladder surgery History of tubal ligation Hx of tonsillectomy Family History Father Stomach cancer Mother Heart disease HTN (hypertension) Diabetes Son No problems noted. Paternal Aunt Stomach cancer Sister Stomach cancer Sister Uterine cancer Social History Household Members: Family Household Members Other:: adult son Housing: Apartment Are you a primary career development director to a significant other at home: No Do you presently have visiting nurse or other home services: Yes (AIRBRUSH ARTIST PHOTOGRAPHY daily) Alcohol intake: never Patient Tobacco Use Status: Never used Tobacco Second Hand Smoke Exposure: No service: No Current occupational status: disabled Current occupation: lt handed Sexual orientation: Straight/Heterosexual Gender identity: Female Female Reproductive History Menstrual Age of Menarche: 17 Review of Systems Const All systems reviewed & are unremarkable except as noted in HPI and below Physical Exam Vital Signs: BMI result Body Mass Index 41.0 Extrem Other: Bilateral knee: Skin intact, no erythema or joint effusion. Tenderness along the medial and lateral joint line. Full ROM with crepitus. Negative Mami?s. No ligamentous laxity. NVI. Office Procedures AMB Joint Injection/Aspiration Joint Injection/Aspiration Details: durolane bilat knee Primary Site: right knee Secondary Site: left knee Prep: site was prepped using aseptic technique, ethochloride spray was applied and injection warnings given Injected: in the joint Approach Used: anterolateral Procedure: The patient tolerated the procedure well and there was some relief with the local anesthesia Coding 18210 - Glenohumeral/Tronchanteric Bursa/Intraarticular Procedure code (CPT) selection complete Assessment & Plan Assessment & Plan (1) Osteoarthritis of knees, bilateral: Code(s): M17.0 - Bilateral primary osteoarthritis of knee Category: Medical Qualifiers: Osteoarthritis type: primary Qualified Code(s): M17.0 - Bilateral primary osteoarthritis of knee Plan We discussed options today, which include Durolane injection. The patient did consent to move forward with the bilateral knee Durolane injection, which was tolerated well. I recommended rest, ice, and elevation and OTC anti- inflammatories as needed for discomfort. If symptoms persist or worsens over the next 6-8 weeks, patient will contact the office, otherwise follow-up as needed. Patient Instructions: Scribed for Rahul Loredo PA-C, by Missael Mchugh medical staffing coordinator, on 01/13/2024 at 11:45 PM EST.? I, Rahul Loredo PA-C, have personally reviewed and agree with the information entered by the scribe. Coding Level of Care Code Procedure Only Diagnoses Primary osteoarthritis of both knees M17.0 Osteoarthritis type: primary CPT Codes Coding - Joint 7: 68687 - Glenohumeral/Tronchanteric Bursa/Intraarticular ([id number])
[2024-01-13 11:40] VITALS: BMI 41.0
== END 2024-01-13 11:45 | disposition home or self-care (01) ==
PROVIDERS: PCP Family Medicine; Visit Provider Physician Assistant
DX: M17.0 Bilateral primary osteoarthritis of knee (principal)
CPT/HCPCS: 20610

== ENCOUNTER → 2024-01-13 11:16 | Outpatient (BNVA) | payer MEDICAID, SELFPAY | PROVIDERS: PCP Family Medicine; Visit Provider Physician Assistant | DX: M17.0 Bilateral primary osteoarthritis of knee (principal) | CPT/HCPCS: 20610; J7318 ==

== ENCOUNTER 2024-01-21 09:28 | Outpatient (AMB) | payer MEDICAID, SELFPAY ==
--- NOTE | 2024-01-21 10:33 | A.OFFVIS_ITS ---
Intake Intake Visit Reasons: 30 min Car Mechanic Helper Required: Yes Car Mechanic Helper Language: Solid Waste Collection Worker Name: [id number] Information Interpreted: non-clinical & clinical Accompanied by: Son Allergies No Known Allergies [No Known Allergies*] Allergy (Verified 01/13/24 11:42) HPI Comprehensive Diabetes Asmnt Most Recent Diabetes Results: Hemoglobin A1c 7.5 % 09/23/18 Microalb/Creat Ratio 9.8 ug/mg cr (<30) 01/04/24 Cholesterol 91 mg/dL (<200) 12/12/22 HDL Cholesterol 38 mg/dL (>40) L 12/12/22 Triglycerides 112 mg/dL (<150) 12/12/22 Creatinine 0.64 mg/dL (0.5-1.4) 12/28/23 Blood Urea Nitrogen 13 mg/dL (9-16) 12/28/23 Sodium 140 mmol/L (135-145) 12/28/23 Potassium 4.1 mmol/L (3.3-5.1) 12/28/23 Chloride 104 mmol/L (96-108) 12/28/23 Carbon Dioxide 28 mmol/L (22-29) 12/28/23 Calcium 9.4 mg/dL (8.4-10.2) 12/28/23 AST 19 U/L (5-31) 12/28/23 ALT 22 U/L (0-31) 12/28/23 Total Protein 8.0 g/dL (6.5-8.0) 12/28/23 Albumin 4.1 g/dL (3.5-5.0) 12/28/23 [facility] Medical History Coarse tremors Bleeding hemorrhoids Hyperlipidemia Dental crowns present Bilateral pneumonia Respiratory failure Hypothyroidism Paranoia (psychosis) Stress incontinence Insomnia Anxiety Obstructive sleep apnea on CPAP Scoliosis of thoracolumbar spine Morbid obesity Chronic pain syndrome Sacroiliitis Inappropriate sinus tachycardia GERD (gastroesophageal reflux disease) 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 due to insulin nursing home (current) use of insulin Gastroparesis 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, uncontrolled Anemia Hemorrhoids Migraine Asthma Patellofemoral arthritis Patella-femoral syndrome Lumbar spondylosis Fibromyalgia Tubular adenoma Family history of colon cancer Vitamin D deficiency Dyslipidemia Genu valgum Low back pain Palpitations Chest pain HTN (hypertension) Surgical History Status post hemorrhoidectomy History of hemorrhoidectomy (~09/09/22) History of surgery Hx of section H/O esophagogastroduodenoscopy History of colonoscopy History of arthroscopy of right knee History of bilateral carpal tunnel release History of bladder surgery History of tubal ligation Hx of tonsillectomy Family History Father Stomach cancer Mother Heart disease HTN (hypertension) Diabetes Son No problems noted. Paternal Aunt Stomach cancer Sister Stomach cancer Sister Uterine cancer Social History Household Members: Family Household Members Other:: adult son Housing: Apartment Are you a primary patient care technician instructor to a significant other at home: No Do you presently have visiting nurse or other home services: Yes (NET DEVELOPER SOFTWARE ENGINEER C daily) Alcohol intake: never Patient Tobacco Use Status: Never used Tobacco Second Hand Smoke Exposure: No service: No Current occupational status: disabled Current occupation: lt handed Sexual orientation: Straight/Heterosexual Gender identity: Female Female Reproductive History Menstrual Age of Menarche: 17 Assessment & Plan Assessment & Plan (1) 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, uncontrolled: Code(s): E11.65 - Type 2 diabetes mellitus with hyperglycemia Qualifiers: Glycemic state: with hypoglycemia Coma presence: without coma Qualified Code(s): E11.649 - Type 2 diabetes mellitus with hypoglycemia without coma Plan: Personal Continuous Glucose Monitor: Patients CGM information reviewed, Patient is currently not using sensor due to shortage of Ortiz 3 sensors Patient is on Humulin U 500 she takes 32 units b.i.d. Mounjaro 10 mg weekly Review of patient's glucometer readings, shows patient is testing glucose 1-3 times daily she has 1 episode where meter read low Other readings in the low 100s through mid 200 Reviewed with patient how to treat hypoglycemia with rule of 15s Instructed patient if she continues to have hypoglycemia to contact provider or counselor camp Called patient's pharmacy to find out if Ortiz 3 sensors could be ordered, pharmacist at [facility] pharmacy will order Ortiz 3+ sensors for patient to be picked up tomorrow Patient given sample of Ortiz 3+ sensor Patient able to insert sensor independently at home without issue.? Portions of this note were created using voice recognition software, please excuse any words or phrases that may have been misinterpreted. Patient Instructions: Patient will follow-up with counselor camp in 1 month Coding Level of Care Code Est Pt Level 1 (17190) Diagnoses Uncontrolled type 2 diabetes mellitus with hypoglycemia without coma E11.649 Glycemic state: with hypoglycemia Coma presence: without coma
== END 2024-01-21 10:55 | disposition home or self-care (01) ==
PROVIDERS: PCP Family Medicine; Visit Provider Registered Nurse Diabetes Educator
DX: E11.649 Type 2 diabetes mellitus with hypoglycemia without coma (principal)

== ENCOUNTER → 2024-01-21 09:28 | Outpatient (BNVA) | payer MEDICAID, SELFPAY | PROVIDERS: PCP Family Medicine; Visit Provider Registered Nurse Diabetes Educator | DX: E11.65 Type 2 diabetes mellitus with hyperglycemia (principal); E11.649 Type 2 diabetes mellitus with hypoglycemia without coma | CPT/HCPCS: 99211 ==

== ENCOUNTER 2024-02-18 08:58 | Outpatient (AMB) | payer MEDICAID, SELFPAY ==
--- NOTE | 2024-02-18 09:35 | MHC.AMDMED ---
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5-8.0) 12/28/23 Albumin 4.1 g/dL (3.5-5.0) 12/28/23 [facility] Medical History Coarse tremors Bleeding hemorrhoids Hyperlipidemia Dental crowns present Bilateral pneumonia Respiratory failure Hypothyroidism Paranoia (psychosis) Stress incontinence Insomnia Anxiety Obstructive sleep apnea on CPAP Scoliosis of thoracolumbar spine Morbid obesity Chronic pain syndrome Sacroiliitis Inappropriate sinus tachycardia GERD (gastroesophageal reflux disease) 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 due to insulin 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 Gastroparesis 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, uncontrolled Anemia Hemorrhoids Migraine Asthma Patellofemoral arthritis Patella-femoral syndrome Lumbar spondylosis Fibromyalgia Tubular adenoma Family history of colon cancer Vitamin D deficiency Dyslipidemia Genu valgum Low back pain Palpitations Chest pain HTN (hypertension) Surgical History Status post hemorrhoidectomy History of hemorrhoidectomy (~09/09/22) History of surgery Hx of section H/O esophagogastroduodenoscopy History of colonoscopy History of arthroscopy of right knee History of bilateral carpal tunnel release History of bladder surgery History of tubal ligation Hx of tonsillectomy Family History Father Stomach cancer Mother Heart disease HTN (hypertension) Diabetes Son No problems noted. 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 daily) Alcohol intake: never Patient Tobacco Use Status: Never used Tobacco Second Hand Smoke Exposure: No service: No Current occupational status: disabled Current occupation: lt handed Sexual orientation: Straight/Heterosexual Gender identity: Female Female Reproductive History Menstrual Age of Menarche: 17 Assessment & Plan Assessment & Plan (1) 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, uncontrolled: Code(s): E11.65 - Type 2 diabetes mellitus with hyperglycemia Qualifiers: Glycemic state: with hypoglycemia Coma presence: without coma Qualified Code(s): E11.649 - Type 2 diabetes mellitus with hypoglycemia without coma Plan: Personal Continuous Glucose Monitor: Patients CGM information reviewed, Pt uses Ortiz 3 sensors Sensor data: 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: ? 0% Hyperglycemia:? 82% Time in Range:? 18% Average glucose for the last 2 weeks? 225 mg/dL Patient is Mounjaro was reduced from 10 mg to 5 mg due to patient complaint of vomiting. At today's visit patient reports she only took 1 dose of Mounjaro 10 mg, in vomited in the afternoon. Patient did not recall if she had ever taken Mounjaro 7.5 mg. Patient has upcoming visit with nurse practitioner in 04/2024. Recommended she discuss with Pad Assembler about trying higher dose of Mounjaro again. Until then patient will continue on Mounjaro 5 mg weekly Also recommended to patient she increase Humulin U 500 from 30 units b.i.d. to 35 units b.i.d. If episodes of hypoglycemia increase treat with rule of 15s, and reduce dose back to Humulin U 500 30 units b.i.d. Reviewed topics below: Introduction to Nutrition Importance of healthy diet in managing DM Diet is personalized to individual preference Review patient?s regular diet/food preferences Who prepares meals/does food shopping/ Dining out?/ Barriers? How diet effects glucose Eating 3 balanced meals a day with small, healthy snacks between meals Review food groups Carbohydrates: What is a carbohydrate/Which food/food groups are considered carbohydrates Effect of carbohydrates on blood glucose Portion sizes Reading food labels Basic carb counting (if applicable per nursing assessment) Plate method Meal planning Recommendations: Follow plate method, consistent carbs and read nutritional labels. Healthy Plate handout given in Tristanian Patient able to insert sensor independently at home without issue.? Portions of this note were created using voice recognition software, please excuse any words or phrases that may have been misinterpreted. Patient Instructions: Aumentar Humulin u500 de 30 unidades a Humulin 35 unidades Coding Level of Care Code Est Pt Level 1 (24000) Diagnoses Uncontrolled type 2 diabetes mellitus with hypoglycemia without coma E11.649 Glycemic state: with hypoglycemia Coma presence: without coma
== END 2024-02-18 09:41 | disposition home or self-care (01) ==
PROVIDERS: PCP Family Medicine; Visit Provider Registered Nurse Diabetes Educator
DX: E11.649 Type 2 diabetes mellitus with hypoglycemia without coma (principal)

== ENCOUNTER → 2024-02-18 08:58 | Outpatient (BNVA) | payer MEDICAID, SELFPAY | PROVIDERS: PCP Family Medicine; Visit Provider Registered Nurse Diabetes Educator | DX: E11.649 Type 2 diabetes mellitus with hypoglycemia without coma (principal); Z79.4 Long term (current) use of insulin | CPT/HCPCS: 99211 ==

== ENCOUNTER 2024-02-19 09:27 | Outpatient (AMB) | payer MEDICAID, SELFPAY ==
[2024-02-19 09:32] VITALS: BP 122/67; PULSE 87; O2SAT 95; BMI 41.4
--- NOTE | 2024-02-19 09:32 | A.OFFVIS_ITS ---
Vital Signs 02/19/24 09:32 Height 5 ft 4 in Weight 241 lb BMI 41.4 BP 122/67 Blood Pressure Location Rt brachial Position Sitting Pulse 87 Pulse Source Doppler Pulse Oximetry (%) 95 Oxygen Delivery Method Room Air Intake Visit Reasons: Asthma Cardiac Exercise Physiologist Required: Yes Cardiac Exercise Physiologist Name: Jaida AguiarLeandroMitzy Allergies No Known Allergies [No Known Allergies*] Allergy (Verified 01/13/24 11:42) HPI HPI Asthma: Details: 58-year-old lady, nonsmoker, with underlying DINA on CPAP managed by her primary care provider, followed for restrictive ventilatory defect and asthma.? After the last office visit patient is PCP changed her AirDuo to Arnuity and she continued on Spiriva and albuterol MDI with good control of her symptoms. Patient is unable to tolerate her CPAP therapy. Today she complains of mild exacerbation symptomatic with productive cough and some wheezing. [facility] Medical History (Updated 02/19/24 @ 10:01 by Colby Anthony MD) Asthma HTN (hypertension) Hyperlipidemia 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, uncontrolled assisted (current) use of insulin Diabetic nephropathy associated with type 2 diabetes mellitus 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 due to insulin Hypothyroidism Obstructive sleep apnea on CPAP Anemia NAFLD (nonalcoholic fatty liver disease) Sacroiliac joint dysfunction Coarse tremors Bleeding hemorrhoids Dental crowns present Respiratory failure Paranoia (psychosis) Stress incontinence Insomnia Anxiety Scoliosis of thoracolumbar spine Morbid obesity Chronic pain syndrome Inappropriate sinus tachycardia GERD (gastroesophageal reflux disease) Spondylosis of lumbar region without myelopathy or radiculopathy Gastroparesis Hemorrhoids Migraine Patellofemoral arthritis Patella-femoral syndrome Lumbar spondylosis Fibromyalgia Tubular adenoma Family history of colon cancer Vitamin D deficiency Genu valgum Palpitations Chest pain Surgical History Status post hemorrhoidectomy History of hemorrhoidectomy (~09/09/22) History of surgery Hx of section H/O esophagogastroduodenoscopy History of colonoscopy History of arthroscopy of right knee History of bilateral carpal tunnel release History of bladder surgery History of tubal ligation Hx of tonsillectomy Family History Father Stomach cancer Mother Heart disease HTN (hypertension) Diabetes Son No problems noted. 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) Alcohol intake: never Patient Tobacco Use Status: Never used Tobacco Second Hand Smoke Exposure: No service: No Current occupational status: disabled Current occupation: lt handed Sexual orientation: Straight/Heterosexual Gender identity: Female Female Reproductive History Menstrual Age of Menarche: 17 Review of Systems Const Denies daytime sleepiness, Denies excessive sweating, Denies fatigue, Denies fever(s), Denies lethargy, Denies malaise, Denies night sweats, Denies snoring and Denies weight loss Eyes Denies blurry vision and Denies itchy eyes ENT Denies nasal congestion, Denies post nasal drip, Denies sinus pain, Denies sinus pressure and Denies other ( Thrush) Card Denies chest pain, Denies pedal edema, Denies dyspnea, Denies orthopnea and Denies paroxysmal nocturnal dyspnea Resp Reports cough, Denies hemoptysis, Denies excessive phlegm production, Denies dyspnea, Denies snoring and Reports wheezing GI Denies abdominal pain and Denies heartburn Musc Denies myalgias, Denies arthralgias and Denies joint swelling Skin/Breast Denies rash Neuro Denies memory loss and Denies seizure-like activity Psych Denies abnormal sleep pattern, Denies anxiety and Denies memory loss Endo Denies excessive sweating, Denies fatigue and Denies heat intolerance Ray/Lymph Denies easy bruising Aller/Immun Denies itchy eyes, Denies seasonal rhinorrhea and Reports wheezing Physical Exam Vital Signs: Last Vital Signs Pulse 87 02/19/24 09:32 BP 122/67 02/19/24 09:32 Pulse Ox 95 02/19/24 09:32 Oxygen Delivery Method Room Air 02/19/24 09:32 BMI result Body Mass Index 41.4 Const General: no acute distress and alert Nutritional Appearance: obese Orientation/consciousness: Other orientation findings ( oriented) HEENT Head: Yes atraumatic Eyes General: appearance normal, both eyes and all related structures Sclerae: sclerae normal EOM: EOMs intact bilaterally Neck Neck: Yes supple Lymphatic: no lymphadenopathy noted Resp Effort & Inspection: normal respiratory effort and no use of accessory muscles Auscultation: other (Poor bilateral air movement) Cardio Rate: regular rate Rhythm: regular rhythm Heart sounds: no gallops, no murmurs and no rubs Skin General skin exam: other ( warm) Extrem General: No clubbing, No cyanosis and No edema Assessment & Plan Assessment & Plan (1) Obstructive sleep apnea on CPAP: Code(s): G47.33 - Obstructive sleep apnea (adult) (pediatric); Z99.89 - Dependence on other enabling machines and devices Category: Medical Plan: Unable to tolerate CPAP. Discussed utilization of jaw advancement device. (2) Restrictive lung disease: Code(s): J98.4 - Other disorders of lung Category: Medical Plan: Secondary to body habitus. (3) Asthma: Code(s): J45.909 - Unspecified asthma, uncomplicated Category: Medical Qualifiers: Asthma complication type: uncomplicated Asthma persistence: persistent Asthma severity: moderate Qualified Code(s): J45.40 - Moderate persistent asthma, uncomplicated Plan: Baseline controlled on Spiriva and Arnuity. Now with bronchitic exacerbation. Will treat with a course of prednisone and azithromycin. Medications: New prednisone 40 mg (2 x 20 mg) PO DAILY 10 tabs 0RF azithromycin For 250 mg dose pack: take 500 mg today (day 1), then 250 mg for 4 days (days 2-5) PO 6 tabs 0RF Coding Level of Care Code Est Pt Level 4 (14394) Complex EM visit Add On G2211 Diagnoses Obstructive sleep apnea on CPAP G47.33; Z99.89 Restrictive lung disease J98.4 Moderate persistent asthma without complication J45.40 Asthma complication type: uncomplicated Asthma persistence: persistent Asthma severity: moderate
== END 2024-02-19 09:57 | disposition home or self-care (01) ==
PROVIDERS: PCP Family Medicine; Visit Provider Internal Medicine Pulmonary Disease
DX: G47.33 Obstructive sleep apnea (adult) (pediatric) (principal); Z99.89 Dependence on other enabling machines and devices; J98.4 Other disorders of lung; J45.40 Moderate persistent asthma, uncomplicated
CPT/HCPCS: 99214

== ENCOUNTER → 2024-02-19 09:27 | Outpatient (BNVA) | payer MEDICAID, SELFPAY | PROVIDERS: PCP Family Medicine; Visit Provider Internal Medicine Pulmonary Disease | DX: J45.40 Moderate persistent asthma, uncomplicated (principal); J98.4 Other disorders of lung; G47.33 Obstructive sleep apnea (adult) (pediatric); Z99.89 Dependence on other enabling machines and devices | CPT/HCPCS: 99212 ==

== ENCOUNTER 2024-02-26 08:56 | Outpatient (AMB) | payer MEDICAID, SELFPAY ==
--- NOTE | 2024-02-26 08:59 | A.OFFVIS_ITS ---
Vital Signs 3 02/26/24 09:58 Height 5 ft 4 in Weight 241 lb 2.971 oz BMI 41.4 BP 132/68 Blood Pressure Location Lt brachial Position Sitting Pulse 77 Pulse Source Pulse Oximeter Intake Visit Reasons: T2DM Intake Note: Patient present today for Type 2 Diabetes Mellitus. Last Diabetic eye exam: 03/2023 Last Podiatry Visit: Doesn't have one Random Glucose: 305 mg/dl HgA1C: 7.8% 12/28/23 Estimator Project Manager Required: Yes Estimator Project Manager Language: Manager Wound Care Services: Estimator Project Manager Present Estimator Project Manager Name: [place] Information Interpreted: non-clinical & clinical Accompanied by: Son Allergies No Known Allergies [No Known Allergies*] Allergy (Verified 02/26/24 10:01) Medication List - Last Reconciled 02/26/24 by Zuleyka Benton MD acetaminophen ER 650 mg PO Q8H PRN albuterol sulfate 2.5 mg inhalation Q4H PRN aripiprazole 15 mg PO BEDTIME aspirin 81 mg PO DAILY azithromycin For 250 mg dose pack: take 500 mg today (day 1), then 250 mg for 4 days (days 2-5) PO benzonatate 200 mg PO TID PRN blood sugar diagnostic (FreeStyle Lite Strips) 5 times a day blood-glucose meter (FreeStyle Lite Meter kit) As directed blood-glucose meter,continuous (FreeStyle Ortiz 3 [place]) Use daily As directed to monitor blood glucose blood-glucose sensor (FreeStyle Ortiz 3 Plus Sensor device) Use daily As directed to monitor glucose blood-glucose sensor (FreeStyle Ortiz 3 Sensor device) Apply every 14 days As directed to monitor blood glucose cholecalciferol (vitamin D3) 50 mcg PO DAILY clonazepam 1 mg PO TID PRN clonidine HCl 0.1 mg PO BEDTIME PRN cyanocobalamin (vitamin B-12) 1,000 mcg IM [id number] docusate sodium 100 mg PO BID doxycycline hyclate 100 mg PO BID ferrous sulfate 325 mg PO Q OTHER DAY flash glucose scanning reader (FreeStyle Ortiz 2 [place]) use daily As directed to monitor blood glucose readings flash glucose sensor (FreeStyle Ortiz 2 Sensor kit) use daily As directed to monitor glucose fluticasone furoate 200 mcg/actuation (Arnuity Ellipta) 1 inh inhalation DAILY furosemide 20 mg PO QAM gabapentin 400 mg PO TID glucagon 3 mg/actuation (Baqsimi) 3 mg intranasal ONCE insulin regular hum U-500 conc (Humulin R U-500 (Conc) Insulin Kwikpen) 60 units (0.12 mL) subcut BID levothyroxine 1 tab PO DAILY@0600 lidocaine 5% 1 patch transdermal DAILY melatonin 5 - 10 mg PO BEDTIME PRN metformin 1,000 mg (2 x 500 mg) PO BID 90 days nortriptyline 1 cap PO BEDTIME nortriptyline 75 mg PO BEDTIME omeprazole 20 mg PO DAILY@0630 pen needle, diabetic (Pentips Pen Needle) USE DIRECTED TWICE DAILY prednisone 40 mg (2 x 20 mg) PO DAILY propranolol 80 mg PO BID 90 days rosuvastatin (Crestor) 20 mg PO BEDTIME thiamine HCl (vitamin B1) 100 mg PO DAILY tiotropium bromide 2.5 mcg/actuation (Spiriva Respimat) 2 puffs inhalation DAILY 30 days tirzepatide (Mounjaro) 5 mg (0.5 mL) subcut QWEEK TRUEplus Lancets (lancets) 4 times a day NS valsartan 160 mg PO DAILY HPI Comments Details: Patient is a 58-year-old female with DM type 2 diagnosed 2009 who presents for management of diabetes. Last seen by Dr. Elias 01/04/24 Here today with son Anders Interval history 02/19/24 started on azithromycin and prednisone 40 mg daily for asth,a exacerbation, completed course on Here today to see me due to uncontrolled hyperglycemia with steroids Diabetes medications: Humulin U 500 40 before breakfast and 40 units with dinner, ( increased from 35 BID yesterday after rmessaging us ) metformin ER 500 mg 2 pills twice a day. . Mounjaro 5 mg Qwkly on Fridays ( Mounjaro was reduced from 10 mg to 5 mg due to patient complaint of vomiting. patient reports she only took 1 dose of Mounjaro 10 mg, in vomited in the afternoon. Patient did not recall if she had ever taken Mounjaro 7.5 mg) Diabetes education : saw Adela Reed CDE 02/18/24 . . Blood glucose monitoring CGM datat over last 2 weeks : no hypoglycemic episodes. uncontrolled hyperglycemia throughout the day with readings upto 400s since starting prednisone on 02/19/24, predinsone finished 02/24/24, and inculin increased to 40 units BID from 25 units BID on 02/25/24, blood sugars improved to 200s and 300s but still overall above target Exercise: walking when weather permit, less in winter with cold. Past medical history: HLD, HTN, gastroparesis Micro and macrovascular complications: has retinopathy, Last Diabetic eye exam: 03/2023, next exam 17 Mar 2024 Last Podiatry Visit: Doesn't have one, no symtpmtoms of neuropathy No macrovascular complications FIB 4 score with labs 12/28/23: 0.68, advanced fibrosis excluded Random Glucose: 305 mg/dl HgA1C: 7.8% 12/28/23 Physical exam General: sitting comfortably in no acute distress HEENT: normocephalic/atraumatic, Neck: supple, symmetrical Cardiac: normal heart sounds Pulm: normal breath sounds B/L, no added breath sounds Abd: not distended, no tenderness Extremities: no edema, no signs of myxedema Foot exam: intact sensation to monofilament, intact pulses, intact but reduced vibration Laboratory Tests Laboratory Tests 03/20/21 12/12/22 12/28/23 10:44 10:13 08:48 Plt Count 334 D Creatinine 0.64 Estimated GFR > 60 Glucose (Clinic) Hemoglobin A1c % 7.8 H AST 19 ALT 22 Triglycerides 112 LDL Cholesterol Direct 47 Cholesterol 91 LDL Cholesterol, Calc 31 HDL Cholesterol 38 L Vitamin B12 387 Urine Creatinine Urine Microalbumin Microalb/Creat Ratio 01/04/24 01/04/24 02/26/24 10:17 10:53 10:03 Plt Count Creatinine Estimated GFR Glucose (Clinic) 153 H 305 H Hemoglobin A1c % AST ALT Triglycerides LDL Cholesterol Direct Cholesterol LDL Cholesterol, Calc HDL Cholesterol Vitamin B12 Urine Creatinine 50.63 Urine Microalbumin 5.0 Microalb/Creat Ratio 9.8 [facility] Medical History (Updated 02/19/24 @ 10:01 by Colby Anthony MD) Asthma HTN (hypertension) Hyperlipidemia 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, uncontrolled skilled nursing (current) use of insulin Diabetic nephropathy associated with type 2 diabetes mellitus 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 due to insulin Hypothyroidism Obstructive sleep apnea on CPAP Anemia NAFLD (nonalcoholic fatty liver disease) Sacroiliac joint dysfunction Coarse tremors Bleeding hemorrhoids Dental crowns present Respiratory failure Paranoia (psychosis) Stress incontinence Insomnia Anxiety Scoliosis of thoracolumbar spine Morbid obesity Chronic pain syndrome Inappropriate sinus tachycardia GERD (gastroesophageal reflux disease) Spondylosis of lumbar region without myelopathy or radiculopathy Gastroparesis Hemorrhoids Migraine Patellofemoral arthritis Patella-femoral syndrome Lumbar spondylosis Fibromyalgia Tubular adenoma Family history of colon cancer Vitamin D deficiency Genu valgum Palpitations Chest pain Surgical History Status post hemorrhoidectomy History of hemorrhoidectomy (~09/09/22) History of surgery Hx of section H/O esophagogastroduodenoscopy History of colonoscopy History of arthroscopy of right knee History of bilateral carpal tunnel release History of bladder surgery History of tubal ligation Hx of tonsillectomy Family History Father Stomach cancer Mother Heart disease HTN (hypertension) Diabetes Son No problems noted. Paternal Aunt Stomach cancer Sister Stomach cancer Sister Uterine cancer Social History Household Members: Family Household Members Other:: adult son Housing: Apartment Are you a primary managed care director to a significant other at home: No Do you presently have visiting nurse or other home services: Yes (IMPLEMENTATION CONSULTANT daily) Alcohol intake: never Patient Tobacco Use Status: Never used Tobacco Second Hand Smoke Exposure: No service: No Current occupational status: disabled Current occupation: lt handed Sexual orientation: Straight/Heterosexual Gender identity: Female Female Reproductive History Menstrual Age of Menarche: 17 Physical Exam Vital Signs: Last Vital Signs Pulse 77 02/26/24 09:58 BP 132/68 02/26/24 09:58 BMI result Body Mass Index 41.4 Office Procedures Glucose Monitoring Details Details: see [facility] [address] - Glucose monitoring, continuous-physician I&R Procedure code (CPT) selection complete Results Reviewed Results Reviewed: Laboratory Last Values Glucose (Clinic) 305 mg/dL (60-115) H 02/26/24 10:03 Assessment & Plan Assessment & Plan (1) 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, uncontrolled: Code(s): E11.65 - Type 2 diabetes mellitus with hyperglycemia Category: Medical Qualifiers: Coma presence: without coma Glycemic state: with hypoglycemia Q ualified Code(s): E11.649 - Type 2 diabetes mellitus with hypoglycemia without coma Plan: 58-year-old female who was diagnosed with type 2 diabetes mellitus in 2009, insulin dependent, with complications of mild retinopathy, gastroparesis with uncontrolled hyperglycemia. She [place] based on 2 weeks CGM data at 10.2%. Her A1c from December 2023 was at 7.8% and her sugars at that time were doing much better. Recently there has been dietary indiscretion in the holiday season plus she had an asthma exacerbation for which she was prescribed 40 mg of prednisone for 5 days she completed this course on 02/24/2024. Her blood sugars have been up to the 400s, with the uncontrolled hyperglycemia throughout the day. She is on U 500 regular insulin twice daily, she was on 32 units b.i.d., which was increased after her diabetes education visit on 02/18/2024 to 35 units twice daily, subsequently yesterday when she reached out with the uncontrolled hyperglycemia we had increased it to 40 units twice daily. There has been some improvement in her blood sugars since yesterday which have come down to early 300s from poor 0s. Plus now that she is off the prednisone which is washing out of her system she would also have some degree of improvement in her hyperglycemia. Regardless she was quite hyperglycemic even before the prednisone was started, hence she definitely needs increment in her insulin. She is on Mounjaro 5 mg weekly, apparently she had an episode of vomiting when it was up titrated to 10 mg weekly, however unclear whether she was ever on the 7.5 mg weekly dose. Plan: -increase Mounjaro to 7.5 mg weekly -continue insulin 40 units U 500 concentration b.i.d. for the next 2 days, if in 2 days blood sugars are in the 300s, instructed to increase insulin to 45 units twice daily. If blood sugars in the 200s instructed to increase insulin to 42 units b.i.d.. Patient verbalized understanding -foot exam done today unremarkable -next eye exam due March 2024, patient already has appointment -ordered BMP, A1c, vitamin B12 and lipid panel to be done prior to next visit in April 2024 (2) Hyperlipidemia: Code(s): E78.5 - Hyperlipidemia, unspecified Category: Medical Plan: Fibrosis 4 score of 0.68, advanced liver fibrosis excluded On rosuvastatin 20 mg daily. No recent lipid panel. Plan: -continue rosuvastatin 20 mg daily -ordered lipid panel (3) HTN (hypertension): Code(s): I10 - Essential (primary) hypertension Category: Medical Qualifiers: Hypertension type: essential hypertension Qualified Code(s): I10 - Essential (primary) hypertension Plan: Blood pressure within good range. Continue losartan and propranolol. On Arb for renal protection. Plan I spent 30 minutes in reviewing the record, seeing the patient and documenting in the medical record. Orders: Orders 2 Hemoglobin A1c 1 Month E11.649 - Type 2 diabetes mellitus with hypoglycemia without coma Lipid Panel 1 Month E11.649 - Type 2 diabetes mellitus with hypoglycemia without coma Basic Metabolic Panel Fasting 1 Month E11.649 - Type 2 diabetes mellitus with hypoglycemia without coma LDL Cholesterol Direct 1 Month E11.649 - Type 2 diabetes mellitus with hypoglycemia without coma Vitamin B12 1 Month E11.649 - Type 2 diabetes mellitus with hypoglycemia without coma AMB Glucose Monitoring Today E11.649 - Type 2 diabetes mellitus with hypoglycemia without coma Medications: New 2 tirzepatide (Mounjaro) 7.5 mg (0.5 mL) subcut QWEEK 6 mL 3RF Changed 2 From insulin regular hum U-500 conc (Humulin R U-500 (Conc) Insulin Kwikpen) 60 units (0.12 mL) subcut BID 6 mL 4RF To insulin regular hum U-500 conc (Humulin R U-500 (Conc) Insulin Kwikpen) 45 units (0.09 mL) subcut BID 6 mL 4RF Discontinued 2 tirzepatide (Mounjaro) Discontinued Reason: Duplicate 5 mg (0.5 mL) subcut QWEEK 2 mL 3RF Patient Instructions: Continue Insulin 40 units twice a day, if in 2 days sugars still high in the 300s , increase to 45 units twice daily If blood sugars come down to 200s in 2 days increase to 42 units twice daily Increase Mounjaro to 7.5 mg weekly Continue Metformin as it is Do blood work fasting prior to your next visit with us Contin?e con 40 unidades de insulina dos veces al d?a; si en 2 d?as los niveles de az?car siguen altos en los 300, aumente a 45 unidades dos veces al d?a. Si el nivel de az?car en fly baja a 200 en 2 d?as, aumente a 42 unidades dos veces al d?a. Aumentar Mounjaro a 7,5 mg semanales Continuar con metformina jennifer est?. Realice an?lisis de fly en ayunas antes de leblanc pr?xima visita con nosotros. Coding Level of Care Code Est Pt Level 4 (92140) Diagnoses Uncontrolled type 2 diabetes mellitus with hypoglycemia without coma E11.649 Coma presence: without coma Glycemic state: with hypoglycemia Hyperlipidemia E78.5 Essential hypertension I10 Hypertension type: essential hypertension CPT Codes Details - CPT: 23739 - Glucose monitoring, continuous-physician I&R ([id number]) Time Spent (min) 30
[2024-02-26 09:58] VITALS: BP 132/68; PULSE 77; BMI 41.4
[2024-02-26 10:07] LABS: Glucose, Whole Blood 305 mg/dL (60-115)
== END 2024-02-26 10:47 | disposition home or self-care (01) ==
PROVIDERS: PCP Family Medicine; Visit Provider Student in an Organized Health Care Education/Training Program
DX: E11.649 Type 2 diabetes mellitus with hypoglycemia without coma (principal); E78.5 Hyperlipidemia, unspecified; I10 Essential (primary) hypertension
CPT/HCPCS: 95251; 99214

== ENCOUNTER → 2024-02-26 08:56 | Outpatient (BNVA) | payer MEDICAID, SELFPAY | PROVIDERS: PCP Family Medicine; Visit Provider Student in an Organized Health Care Education/Training Program | DX: E11.649 Type 2 diabetes mellitus with hypoglycemia without coma (principal); E78.5 Hyperlipidemia, unspecified; I10 Essential (primary) hypertension; Z79.4 Long term (current) use of insulin; Z79.84 Long term (current) use of oral hypoglycemic drugs | CPT/HCPCS: 82947; 99212 ==

== ENCOUNTER 2024-03-28 13:39 | Outpatient (AMB) | payer MEDICAID, SELFPAY ==
[2024-03-28 14:11] VITALS: BP 122/60; PULSE 78; BMI 40.1
--- NOTE | 2024-03-28 14:11 | A.OFFVIS_ITS ---
Vital Signs 03/28/24 14:11 Height 5 ft 4 in Weight 233 lb 11.04 oz BMI 40.1 BP 122/60 Blood Pressure Location Lt brachial Position Sitting Pulse 78 Pulse Source Pulse Oximeter Intake Visit Reasons: 6mo f/u r/s from 01/03 Can Filling And Closing Machine Tender Required: Yes Can Filling And Closing Machine Tender Services: Can Filling And Closing Machine Tender Offered & Declined Accompanied by: Daughter Allergies No Known Allergies [No Known Allergies*] Allergy (Verified 02/26/24 10:01) Medication List - Last Reconciled 03/28/24 by Jonas Aviles MD acetaminophen ER 650 mg PO Q8H PRN albuterol sulfate 2.5 mg inhalation Q4H PRN aripiprazole 15 mg PO BEDTIME aspirin 81 mg PO DAILY benzonatate 200 mg PO TID PRN blood sugar diagnostic (FreeStyle Lite Strips) Test blood sugars four times daily when not wearing sensor or when having hypoglycemia or hyperglycemia on sensor blood-glucose meter (FreeStyle Lite Meter kit) As directed blood-glucose meter,continuous (FreeStyle Ortiz 3 [place]) Use daily As directed to monitor blood glucose blood-glucose sensor (FreeStyle Ortiz 3 Plus Sensor device) Use daily As directed to monitor glucose blood-glucose sensor (FreeStyle Ortiz 3 Sensor device) Apply every 14 days As directed to monitor blood glucose cholecalciferol (vitamin D3) 50 mcg PO DAILY clonazepam 1 mg PO TID PRN clonidine HCl 0.1 mg PO BEDTIME PRN docusate sodium 100 mg PO BID ferrous sulfate 325 mg PO Q OTHER DAY flash glucose scanning reader (FreeStyle Ortiz 2 [place]) use daily As directed to monitor blood glucose readings flash glucose sensor (FreeStyle Ortiz 2 Sensor kit) use daily As directed to monitor glucose fluticasone furoate 200 mcg/actuation (Arnuity Ellipta) 1 inh inhalation DAILY furosemide 20 mg PO QAM gabapentin 400 mg PO TID insulin regular hum U-500 conc (Humulin R U-500 (Conc) Insulin Kwikpen) 45 units (0.09 mL) subcut BID levothyroxine 1 tab PO DAILY@0600 lidocaine 5% 1 patch transdermal DAILY melatonin 5 - 10 mg PO BEDTIME PRN metformin 1,000 mg (2 x 500 mg) PO BID 90 days nortriptyline 1 cap PO BEDTIME nortriptyline 75 mg PO BEDTIME omeprazole 20 mg PO DAILY@0630 pen needle, diabetic (Pentips Pen Needle) USE DIRECTED TWICE DAILY propranolol 80 mg PO BID 90 days rosuvastatin (Crestor) 20 mg PO BEDTIME thiamine HCl (vitamin B1) 100 mg PO DAILY tiotropium bromide 2.5 mcg/actuation (Spiriva Respimat) 2 puffs inhalation DAILY 30 days tirzepatide (Mounjaro) 7.5 mg (0.5 mL) subcut QWEEK TRUEplus Lancets (lancets) 4 times a day NS valsartan 160 mg PO DAILY HPI Comments Details: Candace comes for delayed follow-up. She continues to have exertional shortness of breath which is probably related to her asthma and restrictive lung disease. She has been diagnose with cirrhosis of liver and is currently undergoing workup for Parkinson's disease due to abnormal shaking. She comes from cardiac perspective to follow up of high blood pressure. She has no symptoms of orthopnea, PND. No exertional chest pain. Takes all her medications regularly. She does not participate in regular physical activity. However she has been on a weight loss regimen with Mounjaro with improvement and weight loss. [facility] Medical History Asthma HTN (hypertension) Hyperlipidemia 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, uncontrolled half-way (current) use of insulin Diabetic nephropathy associated with type 2 diabetes mellitus 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 due to insulin Hypothyroidism Obstructive sleep apnea on CPAP Anemia NAFLD (nonalcoholic fatty liver disease) Sacroiliac joint dysfunction Coarse tremors Bleeding hemorrhoids Dental crowns present Respiratory failure Paranoia (psychosis) Stress incontinence Insomnia Anxiety Scoliosis of thoracolumbar spine Morbid obesity Chronic pain syndrome Inappropriate sinus tachycardia GERD (gastroesophageal reflux disease) Spondylosis of lumbar region without myelopathy or radiculopathy Gastroparesis Hemorrhoids Migraine Patellofemoral arthritis Patella-femoral syndrome Lumbar spondylosis Fibromyalgia Tubular adenoma Family history of colon cancer Vitamin D deficiency Genu valgum Palpitations Chest pain Surgical History Status post hemorrhoidectomy History of hemorrhoidectomy (~09/09/22) History of surgery Hx of section H/O esophagogastroduodenoscopy History of colonoscopy History of arthroscopy of right knee History of bilateral carpal tunnel release History of bladder surgery History of tubal ligation Hx of tonsillectomy Family History Father Stomach cancer Mother Heart disease HTN (hypertension) Diabetes Son No problems noted. Paternal Aunt Stomach cancer Sister Stomach cancer Sister Uterine cancer Social History Household Members: Family Household Members Other:: adult son Housing: Apartment Are you a primary day care home mother to a significant other at home: No Do you presently have visiting nurse or other home services: Yes (DESTINATION SPECIALIST daily) Alcohol intake: never Patient Tobacco Use Status: Never used Tobacco Second Hand Smoke Exposure: No service: No Current occupational status: disabled Current occupation: lt handed Sexual orientation: Straight/Heterosexual Gender identity: Female Female Reproductive History Menstrual Age of Menarche: 17 Review of Systems Const Denies weakness ENT Denies dizziness Card Denies chest pain, Denies chest pain with activity, Denies syncope, Denies rapid heart rate, Denies pedal edema, Denies edema, Denies leg edema, Denies lightheadedness, Denies palpitations, Denies dyspnea, Denies dyspnea on exertion and Denies orthopnea Resp Denies cough, Denies dyspnea and Denies dyspnea on exertion GI Denies hematochezia and Denies change in stool character Musc Denies abnormal gait, Denies muscle cramps, Denies muscle weakness, Denies numbness, Denies radiating pain into limb and Denies tingling Neuro Denies abnormal gait, Denies dizziness, Denies syncope, Denies numbness, Denies tingling and Denies weakness Endo Denies palpitations Physical Exam Vital Signs: Last Vital Signs Pulse 78 03/28/24 14:11 BP 122/60 03/28/24 14:11 BMI result Body Mass Index 40.1 Const Other: Tremor of hands noted General: cooperative, healthy appearing, comfortable and no acute distress Orientation/consciousness: patient oriented x3 Neck Neck: Yes normal visual inspection Resp Effort & Inspection: normal respiratory effort Auscultation: clear to auscultation bilaterally, no rales, no rhonchi and no wheezes Cardio Jugular venous distension: no JVD Rate: regular rate Rhythm: regular rhythm Heart sounds: S1 normal heart sound present, S2 normal heart sound present, no murmurs and no rubs Neuro General: patient oriented x3 Extrem General: Yes normal to inspection, No no pedal edema and No calf tenderness Psych Appearance: grossly normal Mental Status: mental status grossly normal Speech and movement: Normal speech and movement present Assessment & Plan Assessment & Plan (1) HTN (hypertension): Code(s): I10 - Essential (primary) hypertension Category: Medical Qualifiers: Hypertension type: essential hypertension Qualified Code(s): I10 - Essential (primary) hypertension Plan: Significant amount of cardiovascular risk factors including hypertension, diabetes hyperlipidemia and obesity and reduced functional capacity. Overall she does not have any active symptoms except for shortness of breath which is most likely related to deconditioning advise restrictive pulmonary defect related to obesity and underlying asthma. She is encouraged to continue to participate in weight loss program regular physical activity. Continue importance of aggressive risk factor modification was discussed. Blood pressure seems optimally controlled currently. Continue aggressive diabetes management goal hemoglobin A1c less than 7% goal LDL less than 70 mg/dL. She is encouraged to increase her activity level gradually. She remains at high risk for vascular events. Will follow up in the clinic in 1 year's time. Coding Level of Care Code Est Pt Level 3 (86192) Complex EM visit Add On G2211 Diagnoses Essential hypertension I10 Hypertension type: essential hypertension
--- OUTSIDE RECORDS SUMMARY | 2024-03-28 18:23 | XMS_ITS | Clinical Summary ---
Author Organization [facility] [facility] [facility] ity Address [address] [place] [address] Care Team Providers Care Lens Block Gauger Name Role Phone Unavailable Primary Care Provider Unavailabl e Social History Tobacco Use Types Packs/Day Years Used Date Smoking Tobacco: Never Assessed Sex and Gender Information Value Date Recorded Sex Assigned at Not on file Gender Identity Not on file Sexual Orientation Not on file Plan of Treatment Health Maintenance Due Date Last Done Comments Breast Cancer Screening 1965 DTaP,Tdap,and Td Vaccines (1 - Tdap) 07/10/1986 Hepatitis B Vaccines (1 of 3 - 19+ 3-dose series) 07/10/1986 Cervical Cancer Screening: P ap Smear 07/10/1988 Zoster Vaccines (1 of 2) 07/10/2017 COVID-19 Vaccine ( - 2023-2 5 season) 2023 Influenza Vaccine (#1) 2023 HIB Vaccines Aged Out No longer eligi ble based on patient's age to complete this topic HPV Vaccines Aged Out No longer eligi ble based on patient's age to complete this topic Hepatitis A Vaccines Aged Out No long er eligible based on patient's age to complete this topic IPV Vaccines Aged Out No longer eligi ble based on patient's age to complete this topic MMR Vaccines Aged Out No longer eligi ble based on patient's age to complete this topic Meningococcal ACWY Vaccine Aged Out N o longer eligible based on patient's age to complete this topic Pneumococcal Vaccine: Pediat rics (0 to 5 Years) and At-Risk Patients (6 to 64 Years) Aged Out No longer eligible b ased on patient's age to complete this topic RSV Immunization Patients Un nabil 20 months Aged Out No longer eligible b ased on patient's age to complete this topic Varicella Vaccines Aged Out No longer eligible based on patient's age to complete this topic
--- OUTSIDE RECORDS SUMMARY | 2024-03-28 18:23 | XMS_ITS | Clinical Summary ---
Author Organization [facility] Address [address] [place] [address] Care Team Providers Care Data Integrity Analyst Name Role Phone Jaida Martin Primary Care Provider [phone]- [phone] Allergies No known active allergies Medications cloNIDine (CATAPRES) 0.1 mg tablet Take 0.1 mg by mouth once a day. Active docusate sodium (COLACE) 100 mg capsule Take 100 mg by mouth 2 times a day as needed. Active FeroSuL 325 mg (65 mg iron) tablet Take 325 mg by mouth daily with breakfast. Active furosemide (LASIX) 20 mg tablet Take 20 mg by mouth once a day. Active metFORMIN (GLUCOPHAGE) 500 mg tablet Take 1,000 mg by mouth 2 times a day with meals. 05/21/19 23 Active Pamelor 75 mg capsule Take 75 mg by mouth nightly. Active rosuvastatin (CRESTOR) 20 mg tablet Take 20 mg by mouth once a day. Active valsartan (DIOVAN) 160 mg tablet Take 160 mg by mouth once a day. Active thiamine HCl (VITAMIN B1) 100 mg tablet Take 100 mg by mouth once a day. 11/01/19 23 Active aspirin 81 mg EC tablet Take 1 tablet by mouth once a day. 08/06/19 23 Active cholecalcifero l (VITAMIN D3) 2,000 unit capsule Take 1 capsule by mouth once a day. 08/06/19 23 Active CYANOCOBALAMIN , VITAMIN B-12, INJECTION Inject 1,000 mcg as directed once every 8 weeks. Active levothyroxine (SYNTHROID, LEVOTHROID) 125 mcg tablet Take 125 mcg by mouth daily. Active ARIPiprazole (ABILIFY) 15 mg tablet Take 15 mg by mouth once a day. Active Mounjaro 7.5 mg/0.5 mL pen injector Inject 7.5 mg under the skin per week. 02/26/20 24 Active clonazePAM (KlonoPIN) 1 mg tablet Take 1 mg by mouth 3 times a day as needed for anxiety. Active albuterol 5 mg/mL (0.5%) nebulizer solution Inhale 2.5 mg via nebulizer every 6 hours as needed for wheezing or shortness of breath. Dose unclear Active gabapentin (NEURONTIN) 400 mg capsule Take 400 mg by mouth 3 times a day. Active insulin NPH (HumuLIN N,NovoLIN N - 100 units/mL) 100 units/mL injection Inject 50 Units under the skin every 12 hours. Active melatonin 3 mg tablet Take 5 mg by mouth nightly as needed for sleep. Takes 1-2 tabs at bedtime prn Active omeprazole OTC (PriLOSEC OTC) 20 mg EC tablet Take 20 mg by mouth once a day. Active propranolol LA (INDERAL LA) 80 mg capsule Take 80 mg by mouth 2 (two) times a day. Active tiotropium bromide (SPIRIVA RESPIMAT) 2.5 mcg/actuation mist Inhale by mouth 2 (two) times a day. Active carbidopa-levo dopa (SINEMET) 25-100 mg per tablet Start carbidopa/lev odopa (25/100 mg) tabs, take 1 tab twice daily for 3 days then go up to 1 tab 3 times a day as tolerated 90 tablet 11 03/08/19 25 Active Januvia 100 mg tablet Take 100 mg by mouth once a day. 025 Discontinued oxybutynin XL (DITROPAN XL) 10 mg tablet Take 1 tablet by mouth once a day. 02/22/20 22 025 Discontinued semaglutide (Ozempic) 2 mg/dose (8 mg/3 mL) pen injector Inject 2 mg under the skin every 7 days. 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 Balance problem 01/28/2023 Facial numbness 01/28/2023 Low back pain potentially associated with radicu lopathy 01/28/2023 Vitamin D deficiency 01/28/2023 Encounters Date Type Department Care Team Description 03/23/2024 Telephone [facility] Neurology [address] [place] [phone] Nancy Petty MD 03/08/2024 9:00 AM EST Follow-Up [facility] Neurology [address] [place] [phone] Nancy Petty MD Parkinsonism, unspecified Parkinsonism type (HCC) (Primary Dx); Intention tremor; Balance problem; Depression with anxiety; Action tremor; Uncontrolled type 2 diabetes mellitus with hyperglycemia (HCC); Asthma, unspecified asthma severity, unspecified whether complicated, unspecified whether persistent from Last 3 Months Family History Medical History Relation Name Comments Parkinsonism Brother 1 Unclear if PD d iagnosis was before or after stroke in the one brother. Stroke Brother 1 Seizures Brother 2 epilepsy with c onvulsions since he was about 10 yo. Both brothers have strokes. Stroke Brother 2 Asthma Child 1 Autism Child 1 Alzheimer's disease Mother Tremor Mother Brain cancer Neg Hx Migraines Neg Hx Relation Name Status Comments Brother 1 Brother 2 Alive Child 1 Alive Child 2 Alive Mother Social History Tobacco Use Types Packs/Day Years Used Date Smoking Tobacco: Never Smokeless Tobacco: Never Tobacco Cessation:Counseling Given: Not Answered Alcohol Use Standard Drinks/Week Comments Never 0 (1 standard drink = 0.6 oz pur e alcohol) Comments Unknown Sex and Gender Information Value Date Recorded Sex Assigned at Female 12/30/2023 9:37 AM EDT Legal Sex Female 3:37 PM EST Gender Identity Not on file Sexual Orientation Not on file Last Filed Vital Signs Vital Sign Reading Time Taken Comments Blood Pressure 124/67 03/08/2024 8:52 AM EST Pulse 85 03/08/2024 8:52 AM EST Temperature 37 ??C (98.6 ??F) 01/28/2023 8:29 AM EST Respiratory Rate - - Oxygen Saturation 97% 03/08/2024 8:52 AM EST Inhaled Oxygen Concentration - - Weight 108 kg (238 lb) 03/08/2024 8:52 AM EST Height - - Body Mass Index - - Plan of Treatment Upcoming Encounters Date Type Department Care Team (Late st Contact Info) Description 09/16/2024 8:30 AM EDT Follow-Up [facility] Neurology [address] [place] [address] Nancy Petty MD [address] [place] [address] Health Maintenance Due Date Last Done Comments Cervical Cancer Screening 1967 Cologuard 1967 Colonoscopy 1967 HPV and Pap Smear 1967 Hepatitis C Screening 1967 Pap Smear 1967 Sigmoidoscopy 1967 Ophthalmology Exam 07/10/1977 Urine Microalbumin 07/10/1977 Alcohol/Substance Use Screening 03/02/2024 Depression Evaluation 03/02/2024 Social Drivers of Health Brii ual Screening 03/02/2024 Hemoglobin A1C 04/07/2024 10/06/2023, 11/18/2022 Mammogram 07/29/2024 07/29/2022, 10/31, 09/11/2017 Colon Cancer Screening 12/27/2024 FOBT / Fit Test 12/27/2024 12/28/2023, 12/12/2022 Basic Metabolic Panel 12/29/2024 12/30/2023 , 12/28/2023, 12/12/2022 DTaP,Tdap,and Td Vaccines (4 - Td or Tdap) 11/15/2030 11/15/2020, 05/31/2009, 04/23/2009, Additional history exists RSV Vaccine (60+ years old a nd patients) (1 - 1-dose 75+ series) 07/10/2042 Hepatitis B Vaccines Completed 07/14/2008, 06/12/2008, 10/28/2006, Additional history exists HIV Screening Completed 03/12/2020 Zoster Vaccines Completed 09/11/2020, 07/05/2020 Pneumococcal Vaccine: Pediat joelle (0-5 Years) and At-Risk Patients (6-64 Years) Completed 11/21/2021, 03/21/2018, 10/17/2012, Additional history exists COVID-19 Vaccine Completed 01/22/2024, , 07/30/2021, Additional history exists Influenza Vaccine Completed 01/22/2024, , 11/21/2021, Additional history exists Procedures * Due to [place] state law, this organization might not be sharing negative HIV tests. Procedure Name Priority Date/Time Associated Diagnosis Comments FOLATE Routine 12/30/2023 9:51 AM EDT B12 deficiency Gastroparesis VITAMIN B12 Routine 12/30/2023 9:51 AM EDT B12 deficiency Gastroparesis COMPREHENSIVE METABOLIC PANEL Routine 12/30/2023 9:51 AM EDT Intention tremor TSH REFLEX FREE T4 Routine 12/30/2023 9: 51 AM EDT Intention tremor Depression with anxiety CBC AUTO DIFFERENTIAL Routine 12/30/2023 9:51 AM EDT Intention tremor VITAMIN B12 Routine 12/30/2023 9:51 AM EDT B12 deficiency Gastroparesis VITAMIN B1 (THIAMINE), WHOLE BLOOD Routine 12/30/2023 9:51 AM EDT Vitamin D deficiency Gastroparesis VITAMIN D, 25-HYDROXY, TOTAL, IMMUNOASSAY Routine 12/30/2023 9:51 AM EDT Vitamin D deficiency Gastroparesis from Last 3 Months Results * Due to [place] [employer] law, this organization might not be sharing negative HIV tests. * TSH Reflex Free T4 (12/30/2023 9:51 AM EDT) TSH 2.410 0.280 - 3.890 uIU/mL 12/30/2023 11:25 AM EDT [facility] Comment: Females: 1st trimester ? 0.150-4.000 ??IU/mL 2nd trimester ?? 0.310-4.170 ?IU/mL 3rd trimester ?0.380-4.150 ?IU/mL Blood Structure of peripheral vein / Unknown Venipuncture / Unknown 12/30/2023 9:51 AM EDT 12/30/2023 10:39 AM EDT us Nancy Petty MD LAB BLOOD ORDERABLES Fi nal Result [facility] [address] [place] [address], [place] * (ABNORMAL) CBC Auto Differential (12/30/2023 9:51 AM EDT) WBC 12.6(H) 3.8 - 10.8 10*3/uL 12/30/2023 10:52 AM EDT [facility] RBC 4.47 3.80 - 5.10 10*6/uL 12/30/2023 10:52 AM EDT [facility] Hemoglobin 11.3(L) 11.7 - 15.5 g/dL 12/30/2023 10:52 AM EDT [facility] Hematocrit 38.7 35.0 - 45.0 % 12/30/2023 10:52 AM EDT [facility] MCV 86.6 80.0 - 100.0 fL 12/30/2023 10:52 AM EDT [facility] MCH 25.3(L) 27.0 - 33.0 pg 12/30/2023 10:52 AM EDT [facility] MCHC 29.2(L) 32.0 - 36.0 g/dL 12/30/2023 10:52 AM EDT [facility] RDW 15.9(H) 11.0 - 15.0 % 12/30/2023 10:52 AM EDT [facility] Platelets 306 140 - 400 10*3/uL 12/30/2023 10:52 AM EDT [facility] MPV 10.5 7.5 - 12.5 fL 12/30/2023 10:52 AM EDT [facility] Neutrophil % 62.5 % 12/30/2023 10:52 AM T [facility] Immature Grans % 0.3 0.0 - 0.9 % 12/30/2023 10:52 AM [facility] Lymphocyte % 30.8 % 12/30/2023 10:52 AM T [facility] Monocyte % 5.2 % 12/30/2023 10:52 AM EDT [facility] Eosinophil % 0.9 % 12/30/2023 10:52 AM EDT [facility] Basophil % 0.3 % 12/30/2023 10:52 AM [facility] Neutrophil # 7.88(H) 1.50 - 7.80 10*3/uL 12/30/2023 10:52 AM [facility] Immature Grans # 0.04(H) <=0.03 10*3/uL [facility]23 10[facility] Lymphocyte # 3.90 0.85 - 3.90 10*3/uL 12/30/2023 10:52 AM [facility] Monocyte # 0.70 0.20 - 0.95 10*3/uL 12/30/2023 10:52 AM [facility] Eosinophil # 0.10 0.02 - 0.50 10*3/uL 12/30/2023 10:52 AM [facility] Basophil # <0.03 0.00 - 0.20 10*3/uL 12/30/2023 10:52 AM [facility] nRBC % 0.0 /100 WBCs 12/30/2023 10:52 AM [facility] nRBC # <0.01 <0.01 10*3/uL 12/30/2023 10:52 AM [facility] Blood Structure of peripheral vein / Unknown Venipuncture / Unknown 12/30/2023 9:51 AM EDT 12/30/2023 10:39 AM EDT Nancy Petty MD LAB BLOOD ORDERABLES Fi nal Result [facility] [address] [place] [address], [place] * (ABNORMAL) Vitamin B1 (Thiamine), Blood, LC/MS/MS (12/30/2023 9:51 AM EDT) Vitamin B1 (Thiamine), Blood, LCMSMS 190(H) 78 - 185 nmol/L 01/04/2024 5:28 AM EST [facility]ASON RAMSE[facility] (CLARA) Comment: Vitamin supplementation within 24 hours prior to blood draw may affect the accuracy of the results. This test was developed and its analytical performance characteristics have been determined by [employer] [place], [place]. It has not been cleared or approved by the U.S. Food and Drug Administration. This assay has been validated pursuant to the CLIA regulations and is used for clinical purposes. Blood Structure of peripheral vein / Unknown Venipuncture / Unknown 12/30/2023 9:51 AM EDT 12/30/2023 10:39 AM EDT Narrative [facility]ASON RAMSEY (CLARA) - 01/04/2024 5:28 AM EST [facility] Received Date:[id number] Nancy Petty MD LAB BLOOD ORDERABLES Fi nal Result [facility] (CLARA) [id number] [place], [place] , [place] * Vitamin D, 25-Hydroxy, Total, Immunoassay (12/30/2023 9:51 AM EDT) Calcidiol+ercalc idiol 61 30 - 100 ng/mL 12/30/2023 7:46 PM EDT [facility] Comment: Vitamin D Status ? 25-OH Vitamin D: Deficiency: ?<20 ng/mL Insufficiency: ? 20 - 29 ng/mL Optimal: ? > or = 30 ng/mL For 25-OH Vitamin D testing on patients on D2-supplementation and patients for whom quantitation of D2 and D3 fractions is required, the QuestAssureD(TM) 25-OH VIT D, (D2,D3), LC/MS/MS is recommended: order code 24073 (patients >2yrs). See Note 1 Note 1 For additional information, please refer to http://education.[employer]/faq/VVG831 (This link is being provided for informational/ educational purposes only.) Blood Structure of peripheral vein / Unknown Venipuncture / Unknown 12/30/2023 9:51 AM EDT 12/30/2023 10:39 AM EDT Narrative [facility] - 12/30/2023 7:46 PM EDT [facility] Received Date: us Nancy Petty MD LAB BLOOD ORDERABLES Fi nal Result [address], [place] [address], [place] [phone] [facility] [address], [place] [address], [place] [phone] * Folate (12/30/2023 9:51 AM EDT) Folate 4.9 4.8 - 24.2 ng/mL 12/30/2023 11:25 AM EDT [facility] Blood Structure of peripheral vein / Unknown Venipuncture / Unknown 12/30/2023 9:51 AM EDT 12/30/2023 10:39 AM EDT us Nancy Petty MD LAB BLOOD ORDERABLES Fi nal Result Performing Organization Address City/[facility]/ZIP Co de Phone Number [facility] [address] [place] [phone], * Vitamin B12 (12/30/2023 9:51 AM EDT) Vitamin B12 415 232 - 1,245 pg/mL 12/30/2023 11:25 AM EDT [facility] Blood Structure of peripheral vein / Unknown Venipuncture / Unknown 12/30/2023 9:51 AM EDT 12/30/2023 10:39 AM EDT Nancy Petty MD LAB BLOOD ORDERABLES Fi nal Result Performing Organization Address [facility] de Phone Number [facility] [address] [place] [phone], * (ABNORMAL) Comprehensive Metabolic Panel (12/30/2023 9:51 AM EDT) NA 140 135 - 145 mmol/L 12/30/2023 11:25 AM EDT [facility] K 3.6 3.5 - 5.3 mmol/L 12/30/2023 11:25 AM EDT [facility] Cl 102 98 - 107 mmol/L 12/30/2023 11:25 AM EDT [facility] CO2 27 22 - 32 mmol/L 12/30/2023 11:25 AM EDT [facility] Anion Gap 11 5 - 15 12/30/2023 11:25 AM EDT [facility] Glucose 171(H) 65 - 99 mg/dL 12/30/2023 11:25 AM EDT [facility] Creatinine 0.41(L) 0.50 - 1.20 mg/dL 12/30/2023 11:25 AM EDT [facility] Calcium 9.0 8.6 - 10.5 mg/dL 12/30/2023 11:25 AM [facility] Total Protein 7.6 6.0 - 8.0 g/dL 12/30/2023 11:25 AM [facility] Albumin 4.2 3.5 - 5.2 g/dL 12/30/2023 11:25 AM [facility] Bilirubin, Total 0.3 0.2 - 1.2 mg/dL 12/30/2023 11:25 AM [facility] Alkaline Phosphatase 152(H) 35 - 129 U/L 12/30/2023 11:25 AM [facility] AST 19 10 - 40 U/L 12/30/2023 11:25 AM [facility] ALT 12 10 - 40 U/L 12/30/2023 11:25 AM [facility] BUN 12 7 - 23 mg/dL 12/30/2023 11:25 AM [facility] eGFR >90 >=60 mL/min/1 .73m2 12/30/2023 11:25 AM [facility] Comment:The estimated glomer ular filtration rate (eGFR) is calculated using a new formula developed by the NKF-ASN task force to eliminate race-based correction factors. The new formula uses serum/plasma creatinine, age, and gender to determine eGFR. A value below 60mls/min might indicate kidney disease and will be flagged. For additional information, see Annemarie et al, Am J Kidney Dis. 2021;79(2):268- 288, A Unifying Approach for GFR estimation: Recommendations of the NKF-ASN Task Force on Reassessing the Inclusion of Race in Diagnosing Kidney Disease . Globulin, Total 3.4 2.1 - 4.2 g/dL 12/30/2023 11:25 AM [facility] A/G Ratio 1.2(L) 1.5 - 3.0 12/30/2023 11:25 AM EDT [facility] Blood Structure of peripheral vein / Unknown Venipuncture / Unknown 12/30/2023 9:51 AM EDT 12/30/2023 10:39 AM EDT us Nancy Petty MD LAB BLOOD ORDERABLES Fi nal Result [facility] [address] [place] [address], [place] from Last 3 Months Insurance [employer] Care Teams Data Integrity Analyst Relationship Specialty Start Date End Date Jaida Martin [address] [place] [phone] PCP - General Family Medicine 01/20/23
--- OUTSIDE RECORDS SUMMARY | 2024-03-28 18:23 | XMS_ITS | Encounter Summary ---
Author Organization [facility] Address [address] [place] [address] Care Team Providers Care Filterer Name Role Phone Jaida Martin Primary Care Provider [phone]- [phone] Encounter Details Date Type Department Care Team (Late Contact Info) Description 03/23/2024 Telephone [facility] Neurology [address] [place] [phone] Nancy Petty MD [address] [place] [phone] Social History Tobacco Use Types Packs/Day Years Used Date Smoking Tobacco: Never Smokeless Tobacco: Never Alcohol Use Standard Drinks/Week Comments Never 0 (1 standard drink = 0.6 oz pur e alcohol) Comments Unknown Sex and Gender Information Value Date Recorded Sex Assigned at Female 12/30/2023 9:37 AM EDT Legal Sex Female 3:37 PM EST Gender Identity Not on file Sexual Orientation Not on file documented as of this encounter Miscellaneous Notes * Telephone Encounter - Fernanda Sheth - 03/23/2024 9:15 AM EST The new medication you prescribed for her is to strong for her . It make her vomit and is dizzy from it. documented in this encounter Plan of Treatment Upcoming Encounters Date Type Department Care Team ([facility] Contact Info) Description 09/16/2024 8:30 AM EDT Follow-Up [facility] Neurology [address] [place] [phone] Nancy Petyt MD [address] [place] [phone] documented as of this encounter Visit Diagnoses Not on filedocumented in this encounter Care Teams Filterer Relationship Specialty Start Date End Date Jaida Martin [address] [place] [phone] PCP - General Family Medicine 01/20/23 documented as of this encounter
--- OUTSIDE RECORDS SUMMARY | 2024-03-28 18:23 | XMS_ITS | Referral Summary ---
Author Organization [facility] Address [address] [place] [address] Care Team Providers Care Director Dietetics Department Name Role Phone Jaida Martin Primary Care Provider [phone] Encounters Date Type Department Care Team Description 03/23/2024 Telephone [facility] [address] [place] [phone] Nancy Petty MD 03/08/2024 9:00 AM EST Follow-Up [facility] [address] [place] [id number] Nancy Petty MD Parkinsonism, unspecified Parkinsonism type (HCC) (Primary Dx); Intention tremor; Balance problem; Depression with anxiety; Action tremor; Uncontrolled type 2 diabetes mellitus with hyperglycemia (HCC); Asthma, unspecified asthma severity, unspecified whether complicated, unspecified whether persistent from Last 3 Months Allergies No known active allergies Medications cloNIDine [...] mg by mouth once a day. 11/01/19 Active aspirin 81 mg EC tablet Take 1 tablet by mouth once a day. 08/06/19 Active cholecalcifero l (VITAMIN D3) 2,000 unit [...] radicu lopathy 01/28/2023 Vitamin D deficiency 01/28/2023 Social History Tobacco Use Types Packs/Day Years [...] Info) Description 09/16/2024 8:30 AM EDT Follow-Up [facility] [address] [place] [id number] Nancy Petty MD [address] [place] [phone] Procedures * Due to [place] state law, this organization might not be [...] Last 3 Months Results * Due to [place] state law, this organization might not be sharing negative HIV tests. * TSH Reflex Free T4 (12/30/2023 9:51 AM EDT) TSH 2.410 0.280 - 3.890 uIU/mL 12/30/2023 11:25 AM EDT [facility] Comment: Females: 1st trimester ? 0.150-4.000 ??IU/mL 2nd trimester ?? 0.310-4.170 ?IU/mL 3rd trimester ?0.380-4.150 ?IU/mL Blood Structure of peripheral vein / Unknown Venipuncture / Unknown 12/30/2023 9:51 AM EDT 12/30/2023 10:39 AM EDT Nancy Petty MD LAB BLOOD ORDERABLES Fi nal Result [facility] [address] [place] [address], [place] * (ABNORMAL) CBC Auto Differential (12/30/2023 9:51 AM EDT) WBC 12.6(H) 3.8 - 10.8 10*3/uL 12/30/2023 10:52 AM EDT [facility] RBC 4.47 3.80 - 5.10 10*6/uL 12/30/2023 10:52 AM EDT [facility] Hemoglobin 11.3(L) 11.7 - 15.5 g/dL 12/30/2023 10:52 AM EDT [facility] Hematocrit 38.7 35.0 - 45.0 % 12/30/2023 10:52 AM EDT [facility] MCV 86.6 80.0 - 100.0 fL 12/30/2023 10:52 AM EDT [facility] MCH 25.3(L) 27.0 - 33.0 pg 12/30/2023 10:52 AM EDT [facility] MCHC 29.2(L) 32.0 - 36.0 g/dL 12/30/2023 10:52 AM EDT [facility] RDW 15.9(H) 11.0 - 15.0 % 12/30/2023 10:52 AM EDT [facility] Platelets 306 140 - 400 10*3/uL 12/30/2023 10:52 AM EDT [facility] MPV 10.5 7.5 - 12.5 fL 12/30/2023 10:52 AM EDT [facility] Neutrophil % 62.5 % 12/30/2023 10:52 AM EDT [facility] Immature Grans % 0.3 0.0 - 0.9 % 12/30/2023 10:52 AM EDT [facility] Lymphocyte % 30.8 % 12/30/2023 10:52 AM EDT [facility] Monocyte % 5.2 % 12/30/2023 10:52 AM EDT [facility] Eosinophil % 0.9 % 12/30/2023 10:52 AM EDT [facility] Basophil % 0.3 % 12/30/2023 10:52 AM EDT [facility] Neutrophil # 7.88(H) 1.50 - 7.80 10*3/uL 12/30/2023 10:52 AM EDT [facility] Immature Grans # 0.04(H) <=0.03 10*3/uL 12/30/2023 10:52 AM T [facility] Lymphocyte # 3.90 0.85 - 3.90 10*3/uL 12/30/2023 10:52 AM EDT [facility] Monocyte # 0.70 0.20 - 0.95 10*3/uL 12/30/2023 10:52 AM EDT [facility] Eosinophil # 0.10 0.02 - 0.50 10*3/uL 12/30/2023 10:52 AM EDT [facility] Basophil # <0.03 0.00 - 0.20 10*3/uL 12/30/2023 10:52 AM EDT [facility] nRBC % 0.0 /100 WBCs 12/30/2023 10:52 AM T [facility] nRBC # <0.01 <0.01 10*3/uL 12/30/2023 10:52 AM [facility] Blood Structure of peripheral vein / Unknown Venipuncture / Unknown 12/30/2023 9:51 AM EDT 12/30/2023 10:39 AM EDT Nancy Petty MD LAB BLOOD ORDERABLES Fi nal Result Performing Organization Address City/[facility]/ZIP Co de Phone Number [facility] [address] [place] [address], * (ABNORMAL) Vitamin B1 (Thiamine), Blood, LC/MS/MS (12/30/2023 9:51 AM EDT) Vitamin B1 (Thiamine), Blood, LCMSMS 190(H) 78 - 185 nmol/L 01/04/2024 5:28 AM EST [employer] [facility]OX[facility] (CLARA) Comment: Vitamin supplementation within 24 hours prior to blood draw may affect the accuracy of the results. This test was developed and its analytical performance characteristics have been determined by [employer], [place]. It has not been cleared or approved by the U.S. Food and Drug Administration. This assay has been validated pursuant to the CLIA regulations and is used for clinical purposes. Blood Structure of peripheral vein / Unknown Venipuncture / Unknown 12/30/2023 9:51 AM EDT 12/30/2023 10:39 AM EDT Narrative JASON CARRENO) - 01/04/2024 5:28 AM EST [facility] Received Date:[id number] Nancy Petty MD LAB BLOOD ORDERABLES Fi nal Result Performing Organization Address City/[facility] Co de Phone Number JASON RAMSEY [employer]) [address] [place], [place] , [place] * Vitamin D, 25-Hydroxy, Total, Immunoassay (12/30/2023 9:51 AM EDT) Calcidiol+ercalc idiol 61 30 - 100 ng/mL 12/30/2023 7:46 PM EDT [employer] [facility] Comment: Vitamin D Status ? 25-OH Vitamin D: Deficiency: ?<20 ng/mL Insufficiency: ? 20 - 29 ng/mL Optimal: ? > or = 30 ng/mL For 25-OH Vitamin D testing on patients on D2-supplementation and patients for whom quantitation of D2 and D3 fractions is required, the QuestAssureD(TM) 25-OH VIT D, (D2,D3), LC/MS/MS is recommended: order code [id number] (patients >2yrs). See Note 1 Note 1 For additional information, please refer to http://education.Opower/faq/SUX272 (This link is being provided for informational/ educational purposes only.) Blood Structure of peripheral vein / Unknown Venipuncture / Unknown 12/30/2023 9:51 AM EDT 12/30/2023 10:39 AM EDT Narrative [facility] - 12/30/2023 7:46 PM EDT [facility] Received Date: us Nancy Petty MD LAB BLOOD ORDERABLES Fi nal Result Performing Organization Address City/[facility]/ZIP Co de Phone Number [address] [facility], [place] [address], [place] [phone] [facility] [address], [place] [address], [place] [phone] * Folate (12/30/2023 9:51 AM EDT) Folate 4.9 4.8 - 24.2 ng/mL 12/30/2023 11:25 AM EDT [facility] Blood Structure of peripheral vein / Unknown Venipuncture / Unknown 12/30/2023 9:51 AM EDT 12/30/2023 10:39 AM EDT us Nancy Petty MD LAB BLOOD ORDERABLES Fi nal Result Performing Organization Address City/[facility]/ZIP Co de Phone Number [facility] [address] [place] [address], * Vitamin B12 (12/30/2023 9:51 AM EDT) Vitamin B12 415 232 - 1,245 pg/mL 12/30/2023 11:25 AM EDT [facility] Blood Structure of peripheral vein / Unknown Venipuncture / Unknown 12/30/2023 9:51 AM EDT 12/30/2023 10:39 AM EDT us Nancy Petty MD LAB BLOOD ORDERABLES Fi nal Result [facility] [address] [place] [address], * (ABNORMAL) Comprehensive Metabolic Panel (12/30/2023 9:51 AM EDT) NA 140 135 - 145 mmol/L 12/30/2023 11:25 AM EDT [facility] K 3.6 3.5 - 5.3 mmol/L 12/30/2023 11:25 AM EDT [facility] Cl 102 98 - 107 mmol/L 12/30/2023 11:25 AM EDT [facility] CO2 27 22 - 32 mmol/L 12/30/2023 11:25 AM EDT [facility] Anion Gap 11 5 - 15 12/30/2023 11:25 AM EDT [facility] Glucose 171(H) 65 - 99 mg/dL 12/30/2023 11:25 AM EDT [facility] Creatinine 0.41(L) 0.50 - 1.20 mg/dL 12/30/2023 11:25 AM EDT [facility] Calcium 9.0 8.6 - 10.5 mg/dL 12/30/2023 11:25 AM EDT [facility] Total Protein 7.6 6.0 - 8.0 g/dL 12/30/2023 11:25 AM [facility] Albumin 4.2 3.5 - 5.2 g/dL 12/30/2023 11:25 AM [facility] Bilirubin, Total 0.3 0.2 - 1.2 mg/dL 12/30/2023 11:25 AM [facility] Alkaline Phosphatase 152(H) 35 - 129 U/L 12/30/2023 11:25 AM [facility] AST 19 10 - 40 U/L 12/30/2023 11:25 AM [facility] ALT 12 10 - 40 U/L 12/30/2023 11:25 AM [facility] BUN 12 7 - 23 mg/dL 12/30/2023 11:25 AM [facility] eGFR >90 >=60 mL/min/1 .73m2 12/30/2023 11:25 AM [facility] Comment:The estimated glomer ular filtration rate (eGFR) is calculated using a new formula developed by the NKF-ASN task force to eliminate race-based correction factors. The new formula uses serum/plasma creatinine, age, and gender to determine eGFR. A value below 60mls/min might indicate kidney disease and will be flagged. For additional information, see Hinson et al, Am J Kidney Dis. 2021;79(2):268- 288, A Unifying Approach for GFR estimation: Recommendations of the NKF-ASN Task Force on Reassessing the Inclusion of Race in Diagnosing Kidney Disease . Globulin, Total 3.4 2.1 - 4.2 g/dL 12/30/2023 11:25 AM [facility] A/G Ratio 1.2(L) 1.5 - 3.0 12/30/2023 11:25 AM [facility] Blood Structure of peripheral vein / Unknown Venipuncture / Unknown 12/30/2023 9:51 AM EDT 12/30/2023 10:39 AM EDT Nancy Petty MD LAB BLOOD ORDERABLES Fi nal Result [facility] [address] [place] [address], [place] from Last 3 Months Insurance [employer] Care Teams Director Dietetics Department Relationship Specialty Start Date End Date Jaida aMrtin [address] [place] [id number] PCP - General Family Medicine 01/20/23
--- OUTSIDE RECORDS SUMMARY | 2024-03-28 18:23 | XMS_ITS | Encounter Summary ---
Author Organization [facility] Address [address] [place] [address] Care Team Providers Care Sound Engineer Name Role Phone Jaida Martin Primary Care Provider [phone] Reason for Visit * Consultation (Urgent) - Authorized Specialty Diagnoses / Procedures Referred By Kendrick breaux Referred To Contact Neurology Diagnoses Tremor of both hands Jaida Martin [address] [place] [address] Phone: tel: fax: [facility] Neurology [address] [place] [id number] Phone: tel: fax: Referral ID Status Reason Start Date Expiration Date Visits Requested Visits Authorized [id number] Authorized Specialty Services Required 3 07/27/2024 6 6 Encounter Details Date Type Department Care Team ([facility] st Contact Info) Description 03/08/2024 9:00 AM EST Follow-Up [facility] Neurology [address] [place] [id number] Nancy Petty MD [address] [place] [id number] Parkinsonism, unspecified Parkinsonism type (HCC) (Primary Dx); Intention tremor; Balance problem; Depression with anxiety; Action tremor; Uncontrolled type 2 diabetes mellitus with hyperglycemia (HCC); Asthma, unspecified asthma severity, unspecified whether complicated, unspecified whether persistent Social History Tobacco Use Types Packs/Day Years [...] on file documented as of this encounter Last Filed Vital Signs Vital Sign Reading Time Taken Comments Blood Pressure 124/67 03/08/2024 8:52 AM EST Pulse 85 03/08/2024 8:52 AM EST Temperature - - Respiratory Rate - - Oxygen Saturation 97% 03/08/2024 8:52 AM EST Inhaled Oxygen Concentration - - Weight 108 kg (238 lb) 03/08/2024 8:52 AM EST Height - - Body Mass Index - - documented in this encounter Patient Instructions * Patient Instructions* Nancy Petty MD - 03/08/2024 10:05 AM EST Orders Placed This Encounter carbidopa-levodopa (SINEMET) 25-100 mg per tablet - Start carbidopa/levodopa (25/100 mg) tabs, take 1 tab twice daily for 3 days then go up to 1 tab 3 times a day as tolerated - on propranolol 80 mg twice daily - on gabapentin 400 mg 3 times a day - continue PT exercises at home - OT referral - hold off for now - no need for primidone for Ets at this time - follow up in clinic in 5 months documented in this encounter Progress Notes * Nancy Petty MD - 03/08/2024 9:32 AM EST ASSESSMENT AND PLAN: 58 y.o. left-handed thai-speaking female with history of Binge eating disorder, insulin-dependent DM type II, fibromyalgia, HTN, DINA on CPAP, asthma, chronic b/l LB with steroid injections, CTS release b/l,, Vit B12 deficiency, dyslipidemia, depression, anxiety, PTSD, migraine without aura, anemia, overactive bladder (s/p sling), gastroparesis, GERD, hypertension, obesity, OA of knees (on cortisone injections b/l), pernicious anemia, benign essential tremor initially presenting to neurology clinic today for evaluation of tremor. She is here today for followup with her daughter today who translates per their preference again Parkinsonism, essential tremors, depression/anxiety/PTSD, LBP with occasional sciatica on the left,balance problems and falls, vitamin B-12/D deficiency history Was seen by PCP at [facility] on 01/22/2024, I reviewed the note which mentions HA1C 7.8%in December 2023, patient on Mounjaro weekly, no other medication changes, follow-up with therapy and psychiatry for major depression, continued on propranolol for hypertension, mild persistent asthmais controlled, also to continue CPAP nightly, continued on gabapentin etc. Today patient and daughter say she did PT which helped with her balance, still has some difficulty but much better. Still does her PT exercises. She did not do OT. She does not feel her tremors are better. She was switched from ozempic to mounjaro a month ago. No side effects. Losing a bit of weight Takes prednisone for asthma so BS gets elevated sometimes gets headaches, especially in afternoon or evening, 3 times a month, no N/V, or photo/phonophobia, frontal part of head, pounding, tylenol helps, 350 mg q6 h prn. She doesn't use CPAP as gets anxious. They brought a list of meds from pharmacy but no clear timeline of med changes. Takes gabapentin 400 mg 3 times a day for body aches Clonazepam 1 mg prn, last taekn yesterday Takes propranolol 80 mg twice daily Updated her medication list below, which was extensive Labs on 12/30/2023 CBC shows glucose 171 but unclear if fasting, alkaline phosphatase is also a bitelevated at 152, vitamin B12, folate and vitamin D levels are normal, CBC shows mildly elevated WBCs 12.6 with elevated neutrophils and immature granulocytes, hemoglobin is slightly low at 11.3 and hematocrit is normal, MCV H and MCHC are a bit low, TSH is normal, vitamin B1 is elevated at 190 which is fine as it is not toxic. Details of as below. On exam today she has moderate constant b/l UE resting tremors, worse as she tends to hold arms to her waist, so a bit of a postural element, but still prominent when keeps hands on thighs, 6 Hz. Mild IK tremors b/l. There is mild b/l cogwheel rigidity on contralateral activation only L>R, normal tone at rest. On hand opening/closure there is mild to moderate right and moderate left bradykinesia.Casual gait bradykinetic, somewhat short steps but not shuffling, more or less intact toe and heel walking, tandem gait not done properly Impression is that patient has slightly worsening parkinsonism, and it seems that her tremors are predominantly resting tremors, anxiety may be a contributing factor as well. She does have an intention kinetic tremor but that does not seem to be the main component at this time so will not start radha primidone but we will start her on Sinemet instead, counseled her about potential side effects including GI side effects such as nausea and constipation, as well as visual hallucinations especially at higher doses, and she will let me know how it is tolerated. She is on propranolol for her BP, does have mild asthma, was on prednisone for the asthma which may be making her diabetes more difficult to control, would suggest to PCP to consider an alternate medication or titrating down the propranolol and considering something else, she is also on valsartan. She is on gabapentin 400 mg 3 times a day but the dose seems to have been unchanged for years so likely not contributing to the tremors.Gait and balance have improved with PT exercises so told her to continue to do them. Instructions as below. I spent an extensive amount of time updating her medication records as they were somewhat unreliable even in the paper that she brought in, but we still do not have a timeline of the medication dosing, and I counseled him to keep a diary. Also encouraged her to return to her sleep doctor manas can start wearing the CPAP again as that could be contributing to some of the headaches, could be worsening cognition and her tremors as well. Patient understands and agrees with the plan as does her daughter. Plan: Orders Placed This Encounter carbidopa-levodopa (SINEMET) 25-100 mg per tablet - Start carbidopa/levodopa (25/100 mg) tabs, take 1 tab twice daily for 3 days then go up to 1 tab 3 times a day as tolerated - on propranolol 80 mg twice daily - on gabapentin 400 mg 3 times a day - continue PT exercises at home - OT referral - hold off for now - no need for primidone for Ets at this time - follow up in clinic in 5 months I spent a total of 40 minutes on the date of this encounter, which included: - preparing to see the patient, including review of investigations and relevant records in the chart, obtaining history and reviewing separately obtained history, - performing a medically appropriate exam/evaluation, - counseling and educating the patient, - ordering medications, - documenting clinical information in the health record, and - independently interpreting results of studies and communicating the results to the patient. CHIEF COMPLAINT: tremos HISTORY OF THE PRESENT ILLNESS: Candace Hinson is a 58 y.o. female referred to neurology clinic for tremors Summary of history per medical records: Patient was first seen in my neurology clinic on 01/28/2023: 57 y.o. left-handed thai-speaking female with history of Binge eating disorder, insulin-dependent DM type II, fibromyalgia, HTN, DINA onCPAP, asthma, chronic b/l LB with steroid injections, CTS release b/l,, Vit B12 deficiency, dyslipidemia, depression, anxiety, PTSD, migraine without aura, anemia, overactive bladder (s/p sling), gastroparesis, GERD, hypertension, obesity, OA of knees (on cortisone injections b/l), pernicious anemia, benign essential tremor presenting to neurology clinic today for evaluation of tremor. She is here with her daughter today who translates per their preference, declined belt cleaner. Parkinsonism, essential tremors, depression/anxiety/PTSD, LBP with occasional sciatica on the left,balance problems and falls, vitamin B-12/D deficiency history Tremors started in both hands in about 2019, have been gradually worsening. Initially they were action tremors but over the last 6-8 months she has had resting tremors in the hands as well. Right worse than left hand. No tremors elsewhere. No relieving factors, exacerbated by using her hands. They got to the point that she has difficulty using her hands to eat or type on her phone. Her movements and speech have been slower over the past year. No hypophonia but now stutters occasionally. She doesn't know what gabapentin was started for. Propranolol was started 3 years ago for the tremors, doesn't know when it was last adjusted, nor the gabapentin. She is on clonazepam and clonidine for anxiety. She has been taking abilify 1-1.5 years, before tremors worsened. The dose was reduced amonth ago to see if tremors improved but they didn't including resting tremors; patient is actuallyon Abilify 22 mg daily. 1 brother has a history of Parkinson's disease and stroke, unclear if the stroke preceded the diagnosis of Parkinson's. Her mother has Alzheimer's disease and tremors that are undiagnosed. Other family history below. On exam today BP is normal 119/66, patient has clear parkinsonism with resting tremors in the rightupper extremity that are near constant, intermittently in the right lower extremity and in the leftupper extremity. She also has action tremors, IK tremors and dysmetria as described below. She has bradykinesia and decreased amplitude on finger tap. Pinprick sensation is impaired in right V1-2 andleft V3 which is not an anatomical finding. She has impairment of tandem gait and toe walking. She reports a history of multiple falls, some cognitive complaints, has a DIE SINKER to help out. Other symptoms as listed below. She has been migraine free for some time. Impression is that patient has parkinsonism that is superimposed on top of her previous history of benign essential tremors (previously followed by [facility] neurology but that was years ago). While she does have a family history of either idiopathic Parkinson's disease or possibly vascular parkinsonism and her brother, it is unclear if the patient's parkinsonism is idiopathic PD or secondary to the Abilify, or if she could have an underlying vascular lesion. Will order MRI brain with and without contrast to further evaluate and will include fiesta as she also has positional vertigo. Will order basic labs and also TSH given the worsening tremors and her history of hypothyroidism on levothyroxine, she is also on multiple medications that could be contributing to the tremors and I asked themto give me a timeline of her medication adjustments. Vibration sense is impaired in the lower extremities, mild sway on Romberg, will check for vitamin B12 and D levels since she has a history of deficiency, does get B12 injections every other month and is on a vitamin D supplement, unclear why sheis on thiamine but she does have gastroparesis. Will refer her to PT for gait/balance training and for back/core strengthening, will refer to OT for her tremors. Patient understands and agrees with the plan as does her daughter. Plan: Orders Placed This Encounter Comprehensive Metabolic Panel TSH Reflex Free T4 CBC auto differential Vitamin B12 & Folate Vitamin B1 (Thiamine), Whole Blood Vitamin D, 25-Hydroxy, Total, Immunoassay Ambulatory referral to Physical Therapy Ambulatory referral to Occupational Therapy MRI Brain W WO Contrast - please bring a timeline for medication changes to better assess tremors and plan - PT referral for gait/balance training, core/back strengthening, treadmill - OT referral Patient returned to clinic for follow-up on 05/15/2023 Parkinsonism, essential tremors, depression/anxiety/PTSD, LBP with occasional sciatica on the left,balance problems and falls, vitamin B-12/D deficiency history She is on aripiprazole 15 mg daily now, lower dose; increased fe, insulin cut down to 50 units bid humulin, januvia dc'd. She lost weight intentionally for diabetes, eating less. No improvement in tremors on lower aripiprazole pt thinks, she did not get a timeline for meds. She had URTI (?RSV) and ended up in outside hospital due to her asthma, has new albuterol pump, flonase. She started PT 2 days after last visit, which she's doing well with, it is helping her balance mostly They plan to do OT after PT as she is having 2-3 PT sessions a week. MRI brain w/wo contrast on 03/07/23 was unremarkable with no acute findings, no stroke or tumor, nowhite matter changes or involvement of the BG; she has slightly high riding right jugular bulb and gentle attenuation of b/l ICJ at C1 level, trace mastoid fluid b/l. I reviewed the above images with the patient today. INR 1.2, PT 15.1 slightly elevated, LA wnl, troponins negative on 05/06/2023. Did not get labs I'd ordered On exam today mild b/l cogwheel rigidity on contralateral activation only, normal tone at rest. On hand opening/closure there is mild right and mild to moderate left bradykinesia.Has mild but frequent RUE resting tremors, 6 Hz, did not see it on the left. Mild to moderate right and minimal left postural tremors, mild to moderate right action tremors and mild left action tremors, mild to moderate right and mild left IK tremors. More or less intact heel and toe walking, tandem gait now cautious but intact. Impression is that patient has parkinsonism that is likely secondary to the aripiprazole, now that the dose has gone down from a total of 22 mg daily to 15 mg daily her resting tremor is mild insteadof moderate, not quite constant, I do not appreciate a tremor at rest in the left upper extremity, her cogwheel rigidity has improved, there is some improvement of gait (which may be due to the physical therapy), but no major improvement in the essential tremors which is unsurprising as she has nothad any treatment and she has been hospitalized with upper respiratory tract infection so the inhalers could potentially worsen those tremors. Counseled daughter to make sure to get me the timeline of her medications, continue to taper down on the aripiprazole if possible, continue improved diabetes control (she is on a much lower dose of insulin and is off Januvia) continue weight loss, continuePT and then start OT. For the essential tremors we discussed that we cannot increase her propranolol 80 mg twice daily given her respiratory issues but these to consider primidone in the future. However will not make any medication changes until her other medications for psychiatry and diabetes andpulmonology are stable. I am reordering the labs I had ordered on the last visit. Plan: CBC Auto Differential Comprehensive Metabolic Panel TSH Reflex Free T4 Vitamin B12 & Folate Vitamin B1 (Thiamine), Whole Blood Vitamin D, 25-Hydroxy, Total, Immunoassay - please bring a timeline for medication changes to better assess tremors and plan - continue PT for gait/balance training, try to also get core/back strengthening, treadmill - OT referral - they plan to start after PT - get labs above - discussed primidone for Ets, will hold off until meds stable and after labs Interval history Informed patient Your CBC shows glucose 171 but unclear fasting, alkaline phosphatase is also a bit elevated at 152, so please make sure to avoid anything that would affect your liver, vitamin B12, folate and vitamin D levels are normal, CBC shows mildly elevated WBCs 12.6 with elevated neutrophils and immature granulocytes, hemoglobin is slightly low at 11.3 and hematocrit is normal, MCV H and MCHC are a bit low so please let your PCP know about these labs to make sure there is no infection and to see if there is anything causing the anemia, TSH is normal, vitamin B1 is elevated at 190 which is fine as it is not toxic. Please let your PCP know about these labs. Was seen by PCP at [facility] on 01/22/2024, I reviewed the note which mentions HA1C 7.8%in December 2023, patient on Mounjaro weekly, no other medication changes, follow-up with therapy and psychiatry for major depression, continued on propranolol for hypertension, mild persistent asthmais controlled, also to continue CPAP nightly, continued on gabapentin etc. Per patient and daughter report today: She did PT which helped with her balance, still has some difficulty but much better. Still does herPT exercises. She did not do OT. She does not feel her tremors are better. She was switched from ozempic to mounjaro a month ago. No side effects. Losing a bit of weight Takes prednisone for asthma so BS gets elevated sometimes gets headaches, especially in afternoon or evening, 3 times a month, no N/V, or photo/phonophobia, frontal part of head, pounding, tylenol helps, 350 mg q6 h prn. She doesn't use CPAP as gets anxious. They brought a list of meds from pharmacy but no clear timeline of med changes. Takes gabapentin 400 mg 3 times a day for body aches Clonazepam 1 mg prn, last taekn yesterday Takes propranolol 80 mg twice daily Updated her medication list below, which was extensive Weakness - no Tingling/numbness - legs Loss of coordination - no Loss of balance - much improved, still a nit of issues Falls - no Vision: blurring, VF defects, double vision - blurred vision only Speech/swallowing difficulty - no Hearing loss/tinnitus - no Vertigo/lightheadedness - positional vertigo sometimes, unchanged, no lightheadedness Language difficulty - no Comprehension difficulty -no Memory problems - sometimes will forget certain details, nothing major Trouble concentrating, confusion, disorientation, altered mental status - no Seizures - no Involuntary movements - tremors all the time Headache - sometimes gets headaches, especially in afternoon or evening, 3 times a month, no N/V, or photo/phonophobia, frontal part of head, pounding, tylenol helps, 350 mg q6 h prn Neck/back pain - LBP Urinary/bowel incontinence/retention - no No pain elsewhere or muscle spasms ?REVIEW OF SYSTEMS:? Neuro: only as above Sensory: no changes in sense of smell, taste General: no fevers, has fatigue CVS: no chest pain/pressure or palpitations Respiratory: shortness of breath sometimes with asthma Abdominal: no abdominal pain, nausea, vomiting, constipation/diarrhea, no blood Urogenital: no urinary incontinence/retention, no blood Endocrine: no change in appetite, losing weight due to eating less for diabetes, which is better controlled Derm: no skin changes Psychiatry: both depression, anxiety, controlled has therapist and psychiatrist still Fully vaccinated against COVID-19: yes, last booster was 11/2021, then in 01/2024 All other systems reviewed and negative except as per HPI or noted specifically on the intake form from today's date. ? Past Medical History: Diagnosis Date Anxiety Depression PTSD (post-traumatic stress disorder) Patient Active Problem List Diagnosis Parkinsonism (HCC) Essential tremor Intention tremor Dysmetria Action tremor Balance problem Facial numbness Low back pain potentially associated with radiculopathy Vitamin D deficiency Binge eating disorder, insulin-dependent DM type II, fibromyalgia, HTN, DINA on CPAP, asthma, chronic b/l LBP, Vit B12 deficiency, dyslipidemia, depression, anxiety, PTSD, , migraine without aura, anemia, overactive bladder, gastroparesis, GERD, hypertension, obesity, OA of knees (on cortisone injections b/l), pernicious anemia, benign essential tremor Past Surgical History: Procedure Laterality Date BLADDER SURGERY with sling for UI CARPAL TUNNEL RELEASE Bilateral SECTION, LOW TRANSVERSE HEMORRHOID SURGERY TONSILECTOMY TUBAL LIGATION Family History Problem Relation Age of Onset Alzheimer's disease Mother Tremor Mother Stroke Brother Parkinsonism Brother Unclear if PD diagnosis was before or after stroke in the one brother. Stroke Brother Seizures Brother epilepsy with convulsions since he was about 10 yo. Both brothers have strokes. Autism Child Asthma Child Brain cancer Neg Hx Migraines Neg Hx mother has tremors but no clear diagnosis, brother was diagnosed with Parkinson's, symptoms startedage 59 yo. No other PD. Mother has Alzheimer's, symptoms started when she was 70 yo. Her other brother has epilepsy with convulsions since he was about 10 yo. Both brothers have strokes. Unclear if PD diagnosis was before or after stroke in the one brother. No brain tumors or migraines. 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 Dose unclear ARIPiprazole (ABILIFY) 15 mg tablet Take 15 mg by mouth once a day. aspirin 81 mg EC tablet Take 1 tablet by mouth once a day. cholecalciferol (VITAMIN D3) 2,000 unit capsule Take 1 capsule by mouth once a day. clonazePAM (KlonoPIN) 1 mg tablet Take 1 mg by mouth 3 times a day as needed for anxiety. cloNIDine (CATAPRES) 0.1 mg tablet Take 0.1 mg by mouth once a day. CYANOCOBALAMIN, VITAMIN B-12, INJECTION Inject 1,000 mcg as directed once every 8 weeks. docusate sodium (COLACE) 100 mg capsule Take 100 mg by mouth 2 times a day as needed. FeroSuL 325 mg (65 mg iron) tablet Take 325 mg by mouth daily with breakfast. furosemide (LASIX) 20 mg tablet Take 20 mg by mouth once a day. gabapentin (NEURONTIN) 400 mg capsule Take 400 mg by mouth 3 times a day. insulin NPH (HumuLIN N,NovoLIN N - 100 units/mL) 100 units/mL injection Inject 50 Units under the skin every 12 hours. levothyroxine (SYNTHROID, LEVOTHROID) 125 mcg tablet Take 125 mcg by mouth daily. melatonin 3 mg tablet Take 5 mg by mouth nightly as needed for sleep. Takes 1-2 tabs at bedtime prn metFORMIN (GLUCOPHAGE) 500 mg tablet Take 1,000 mg by mouth 2 times a day with meals. Mounjaro 7.5 mg/0.5 mL pen injector Inject 7.5 mg under the skin per week. omeprazole OTC (PriLOSEC OTC) 20 mg EC tablet Take 20 mg by mouth once a day. Pamelor 75 mg capsule Take 75 mg by mouth nightly. propranolol LA (INDERAL LA) 80 mg capsule Take 80 mg by mouth 2 (two) times a day. rosuvastatin (CRESTOR) 20 mg tablet Take 20 mg by mouth once a day. thiamine HCl (VITAMIN B1) 100 mg tablet Take 100 mg by mouth once a day. tiotropium bromide (SPIRIVA RESPIMAT) 2.5 mcg/actuation mist Inhale by mouth 2 (two) times a day. valsartan (DIOVAN) 160 mg tablet Take 160 mg by mouth once a day. No current facility-administered medications for this visit. Medications 05/15/2023 include aripiprazole 15 mg daily, aspirin 81 mg daily, vitamin D3 2000 units daily, clonazepam 1 mg 3 times daily as needed, clonidine 0.1 mg every evening, vitamin B12 injection 1000 mcg intramuscular every 8 weeks, Colace 100 mg twice daily, ferrous sulfate 325 mg every day,Flonase 2 puffs twice daily, Advair 2 puffs every 12 hours, Lasix 20 mg every morning, gabapentin 400 mg 3 times daily, hydroxyzine 25 mg to 50 mg nightly as needed, Humulin insulin 50 units with breakfast and 50 units with dinner, levothyroxine 125 mg daily, melatonin 5-10 mg nightly as needed, metformin 1000 mg twice daily, nortriptyline 75 mg daily, omeprazole 20 mg daily, oxybutynin XL 10 mg e very morning, propranolol 80 mg twice daily, rosuvastatin 20 mg nightly, Ozempic 1 mg subcutaneously weekly, vitamin B1 100 mg daily, valsartan 160 mg daily Medications 03/08/2024 updated as above PHYSICAL EXAMINATION: Blood pressure 124/67, pulse 85, weight 108 kg (238 lb), SpO2 97%. There is no height or weight on file to calculate BMI. General: Well appearing female. No acute distress. Pleasant and cooperative. HEENT: NC/AT, sclera/conjunctiva WNL, MMM?. Neck: No masses or goiter grossly. Lungs: no shortness of breath Abdomen: non-distended Extremities: Warm well-perfused peripheries. No edema. Skin: No rash, no bruising. Has tattoos Psychiatry: Euthymic Neurologic Exam: ?Mental Status: The patient is awake, alert and oriented to time, place and person. Patient is fluent with good fund of knowledge. Comprehension intact. Cranial Nerves: Pupils are equal, round and reactive to light and accommodation. Direct fundoscopy deferred. Visual abbott full to confrontation. EOM intact. No ptosis, has mild pseudoptosis b/l. Face symmetric with no upper or lower facial weakness on testing (raising eyebrows, eye closure againstresistance, showing teeth). Hearing grossly normal to speech. No dysarthria. Sternomastoid and trape zius strength normal bilaterally. Palate elevation and tongue protrusion are normal and midline. Motor: Normal muscle bulk in upper and lower extremities bilaterally. There is mild b/l cogwheel rigidity on contralateral activation only L>R, normal tone at rest. On hand opening/closure there is mild to moderate right and moderate left bradykinesia. Power right/left: SA 5/5, EF 5/5, EE 5/5, HG 5/5 HF 5/5, KE 5/5, KF 5/5, ADF 5/5, APF 5/5 Has moderate constant b/l UE resting tremors, worse as she tends to hold arms to her waist, so a bit of a postural element, but still prominent when keeps hands on thighs, 6 Hz. Mild IK tremors b/l Sensation: Intact light touch in face, upper and lower extremities bilaterally. Coordination: [id number] mild right and left IK tremors No truncal ataxia.? Romberg test with mild sway Gait: Casual gait bradykinetic, somewhat short steps but not shuffling, more or less intact toe andheel walking, tandem gait not done properly INVESTIGATIONS: Appointment on 12/30/2023 Component Date Value Ref Range Status Calcidiol+ercalcidiol 12/30/2023 61 30 - 100 ng/mL Final Vitamin D Status 25-OH Vitamin D: Deficiency: <20 ng/mL Insufficiency: 20 - 29 ng/mL Optimal: > or = 30 ng/mL For 25-OH Vitamin D testing on patients on D2-supplementation and patients for whom quantitation of D2 and D3 fractions is required, the QuestAssureD(TM) 25-OH VIT D, (D2,D3), LC/MS/MS is recommended: order code 91702 (patients >2yrs). See Note 1 Note 1 For additional information, please refer to http://education.[employer]Trib.[employer] Group/faq/RYR508 (This link is being provided for informational/ educational purposes only.) Vitamin B1 (Thiamine), Blood, LCMS* 12/30/2023 190 (H) 78 - 185 nmol/L Final Vitamin supplementation within 24 hours prior to blood draw may affect the accuracy of the results. This test was developed and its analytical performance characteristics have been determined by [facility] [place], [place]. It has not been cleared or approved by the U.S. Food and Drug Administration. This assay has been validated pursuant to the CLIA regulations and is used for clinical purposes. WBC 12/30/2023 12.6 (H) 3.8 - 10.8 10*3/uL Final RBC 12/30/2023 4.47 3.80 - 5.10 10*6/uL Final Hemoglobin 12/30/2023 11.3 (L) 11.7 - 15.5 g/dL Final Hematocrit 12/30/2023 38.7 35.0 - 45.0 % Final MCV 12/30/2023 86.6 80.0 - 100.0 fL Final MCH 12/30/2023 25.3 (L) 27.0 - 33.0 pg Final MCHC 12/30/2023 29.2 (L) 32.0 - 36.0 g/dL Final RDW 12/30/2023 15.9 (H) 11.0 - 15.0 % Final Platelets 12/30/2023 306 140 - 400 10*3/uL Final MPV 12/30/2023 10.5 7.5 - 12.5 fL Final Neutrophil % 12/30/2023 62.5 % Final Immature Grans % 12/30/2023 0.3 0.0 - 0.9 % Final Lymphocyte % 12/30/2023 30.8 % Final Monocyte % 12/30/2023 5.2 % Final Eosinophil % 12/30/2023 0.9 % Final Basophil % 12/30/2023 0.3 % Final Neutrophil # 12/30/2023 7.88 (H) 1.50 - 7.80 10*3/uL Final Immature Grans # 12/30/2023 0.04 (H) <=0.03 10*3/uL Final Lymphocyte # 12/30/2023 3.90 0.85 - 3.90 10*3/uL Final Monocyte # 12/30/2023 0.70 0.20 - 0.95 10*3/uL Final Eosinophil # 12/30/2023 0.10 0.02 - 0.50 10*3/uL Final Basophil # 12/30/2023 <0.03 0.00 - 0.20 10*3/uL Final nRBC % 12/30/2023 0.0 /100 WBCs Final nRBC # 12/30/2023 <0.01 <0.01 10*3/uL Final TSH 12/30/2023 2.410 0.280 - 3.890 uIU/mL Final Females: 1st trimester 0.150-4.000 ??IU/mL 2nd trimester 0.310-4.170 ??IU/mL 3rd trimester 0.380-4.150 ??IU/mL NA 12/30/2023 140 135 - 145 mmol/L Final K 12/30/2023 3.6 3.5 - 5.3 mmol/L Final Cl 12/30/2023 102 98 - 107 mmol/L Final CO2 12/30/2023 27 22 - 32 mmol/L Final Anion Gap 12/30/2023 11 5 - 15 Final Glucose 12/30/2023 171 (H) 65 - 99 mg/dL Final Creatinine 12/30/2023 0.41 (L) 0.50 - 1.20 mg/dL Final Calcium 12/30/2023 9.0 8.6 - 10.5 mg/dL Final Total Protein 12/30/2023 7.6 6.0 - 8.0 g/dL Final Albumin 12/30/2023 4.2 3.5 - 5.2 g/dL Final Bilirubin, Total 12/30/2023 0.3 0.2 - 1.2 mg/dL Final Alkaline Phosphatase 12/30/2023 152 (H) 35 - 129 U/L Final AST 12/30/2023 19 10 - 40 U/L Final ALT 12/30/2023 12 10 - 40 U/L Final BUN 12/30/2023 12 7 - 23 mg/dL Final eGFR 12/30/2023 >90 >=60 mL/min/1.73m2 Final The estimated glomerular filtration rate (eGFR) is calculated using a new formula developed by the NKF-ASN task force to eliminate race-based correction factors. The new formula uses serum/plasma creatinine, age, and gender to determine eGFR. A value below 60mls/min might indicate kidney disease and will be flagged. For additional information, see Annemarie et al, Am J Kidney Dis. 2021;79(2):268-288, A Unifying Approach for GFR estimation: Recommendations of the NKF-ASN Task Force on Reassessing the Inclusion of Race in Diagnosing Kidney Disease . Globulin, Total 12/30/2023 3.4 2.1 - 4.2 g/dL Final A/G Ratio 12/30/2023 1.2 (L) 1.5 - 3.0 Final Vitamin B12 12/30/2023 415 232 - 1,245 pg/mL Final Folate 12/30/2023 4.9 4.8 - 24.2 ng/mL Final documented in this encounter Plan of Treatment Upcoming Encounters Date Type Department Care Team (Late st Contact Info) Description 09/16/2024 8:30 AM EDT Follow-Up [facility] Neurology [address] [place] [phone] Nancy Petty MD [address] [place] [phone] documented as of this encounter Visit Diagnoses Diagnosis Parkinsonism, unspecified Parkinsonism type (HCC)- Primary Intention tremor Essential and other specified forms of tremor Balance problem Abnormality of gait Depression with anxiety Dysthymic disorder Action tremor Essential and other specified forms of tremor Uncontrolled type 2 diabetes mellitus with hyperglycemia (HCC) Asthma, unspecified asthma severity, unspecified whether complicated, unspecified whether persistent documented in this encounter Care Teams Sound Engineer Relationship Specialty Start Date End Date Jaida Martin [address] [place] [address] PCP - General Family Medicine 01/20/23 documented as of this encounter
== END 2024-03-28 14:36 | disposition home or self-care (01) ==
PROVIDERS: PCP Family Medicine; Visit Provider Internal Medicine Cardiovascular Disease
DX: I10 Essential (primary) hypertension (principal)
CPT/HCPCS: 99213

== ENCOUNTER → 2024-03-28 13:39 | Outpatient (BNVA) | payer MEDICAID, SELFPAY | PROVIDERS: PCP Family Medicine; Visit Provider Internal Medicine Cardiovascular Disease | DX: I10 Essential (primary) hypertension (principal) | CPT/HCPCS: 99212 ==

== ENCOUNTER 2024-03-30 08:24 | Outpatient (REF) | payer MEDICAID, SELFPAY ==
--- OUTSIDE RECORDS SUMMARY | 2024-03-30 08:36 | XMS_ITS | Encounter Summary ---
Author Organization [facility] Address [address] [place] [address] Care Team Providers Care Rotary Soil Stabilizer Operator Name Role Phone Jaida Martin Primary Care Provider [phone]- [phone] Encounter Details Date Type Department Care Team (Late Contact Info) Description 03/23/2024 Telephone [facility] Neurology [address] [place] [phone] Nancy Petty MD [address] [place] [phone] Social History Tobacco Use Types Packs/Day Years [...] Upcoming Encounters Date Type Department Care Team ([facility] Contact Info) Description 09/16/2024 8:30 AM EDT Follow-Up [facility] Neurology [address] [place] [phone] Nancy Petty MD [address] [place] [phone] documented as of this encounter Visit Diagnoses Not on filedocumented in this encounter Care Teams Rotary Soil Stabilizer Operator Relationship Specialty Start Date End Date Jaida Martin [address] [place] [phone] PCP - General Family Medicine 01/20/23 documented as of this encounter
--- OUTSIDE RECORDS SUMMARY | 2024-03-30 08:37 | XMS_ITS | Clinical Summary ---
Author Organization [facility] Address [address] [place] [address] Care Team Providers Care Head Of Digital Name Role Phone Jaida Martin Primary Care Provider +1- [phone] Allergies No known active allergies Medications cloNIDine [...] Type Department Care Team Description 03/23/2024 Telephone [facility] Neurology [address] [place] [phone] Nancy Petty MD 03/08/2024 9:00 AM EST Follow-Up [facility] Neurology [address] [place] [phone] Nancy Petty MD Parkinsonism, unspecified Parkinsonism type [...] Info) Description 09/16/2024 8:30 AM EDT Follow-Up [facility] Neurology [address] [place] [address] Nancy Petty MD [address] [place] [address] Health Maintenance Due Date Last Done Comments [...] Additional history exists Procedures * Due to [place] state law, this organization might not be [...] Last 3 Months Results * Due to [place] law, this organization might not be sharing negative HIV tests. * TSH Reflex Free T4 (12/30/2023 9:51 AM EDT) TSH 2.410 0.280 - 3.890 uIU/mL 12/30/2023 11:25 AM EDT [facility] Comment: Females: 1st trimester ? 0.150-4.000 ??IU/mL 2nd trimester ?? 0.310-4.170 ?IU/mL 3rd trimester ?0.380-4.150 ?IU/mL Blood Structure of peripheral vein / Unknown Venipuncture / Unknown 12/30/2023 9:51 AM EDT 12/30/2023 10:39 AM EDT us Nancy Petty MD LAB BLOOD ORDERABLES Fi nal Result [facility] [address] [place] [address], [place] * (ABNORMAL) CBC Auto Differential (12/30/2023 9:51 AM EDT) WBC 12.6(H) 3.8 - 10.8 10*3/uL 12/30/2023 10:52 AM EDT [facility] RBC 4.47 3.80 - 5.10 10*6/uL 12/30/2023 10:52 AM EDT [facility] Hemoglobin 11.3(L) 11.7 - 15.5 g/dL 12/30/2023 10:52 AM EDT [facility] Hematocrit 38.7 35.0 - 45.0 % 12/30/2023 10:52 AM EDT [facility] MCV 86.6 80.0 - 100.0 fL 12/30/2023 10:52 AM EDT [facility] MCH 25.3(L) 27.0 - 33.0 pg 12/30/2023 10:52 AM EDT [facility] MCHC 29.2(L) 32.0 - 36.0 g/dL 12/30/2023 10:52 AM EDT [facility] RDW 15.9(H) 11.0 - 15.0 % 12/30/2023 10:52 AM EDT [facility] Platelets 306 140 - 400 10*3/uL 12/30/2023 10:52 AM EDT [facility] MPV 10.5 7.5 - 12.5 fL 12/30/2023 10:52 AM EDT [facility] Neutrophil % 62.5 % 12/30/2023 10:52 AM T [facility] Immature Grans % 0.3 0.0 - 0.9 % 12/30/2023 10:52 AM [facility] Lymphocyte % 30.8 % 12/30/2023 10:52 AM T [facility] Monocyte % 5.2 % 12/30/2023 10:52 AM EDT [facility] Eosinophil % 0.9 % 12/30/2023 10:52 AM EDT [facility] Basophil % 0.3 % 12/30/2023 10:52 AM [facility] Neutrophil # 7.88(H) 1.50 - 7.80 10*3/uL 12/30/2023 10:52 AM [facility] Immature Grans # 0.04(H) <=0.03 10*3/uL 12/30/2023 10:[facility] Lymphocyte # 3.90 0.85 - 3.90 10*3/uL 12/30/2023 10:52 AM [facility] Monocyte # 0.70 0.20 - 0.95 10*3/uL 12/30/2023 10:52 AM [facility] Eosinophil # 0.10 0.02 - 0.50 10*3/uL 12/30/2023 10:52 AM [facility] Basophil # <0.03 0.00 - 0.20 10*3/uL 12/30/2023 10:52 AM [facility] nRBC % 0.0 /100 WBCs 12/30/2023 10:52 AM [facility] nRBC # <0.01 <0.01 10*3/uL 12/30/2023 10:52 AM [facility] Blood Structure of peripheral vein / Unknown Venipuncture / Unknown 12/30/2023 9:51 AM EDT 12/30/2023 10:39 AM EDT Nancy Petty MD LAB BLOOD ORDERABLES Fi nal Result [facility] [address] [place] [address], [place] * (ABNORMAL) Vitamin B1 (Thiamine), Blood, LC/MS/MS (12/30/2023 9:51 AM EDT) Vitamin B1 (Thiamine), Blood, LCMSMS 190(H) 78 - 185 nmol/L 01/04/2024 5:28 AM EST JASON RAMSEY (CLARA) Comment: Vitamin supplementation within 24 hours prior to blood draw may affect the accuracy of the results. This test was developed and its analytical performance characteristics have been determined by [employer] [place], [place]. It has not been cleared or approved by the U.S. Food and Drug Administration. This assay has been validated pursuant to the CLIA regulations and is used for clinical purposes. Blood Structure of peripheral vein / Unknown Venipuncture / Unknown 12/30/2023 9:51 AM EDT 12/30/2023 10:39 AM EDT Narrative JASON RAMSEY (CLARA) - 01/04/2024 5:28 AM EST [facility] Received Date:[id number] Nanyc Petty MD LAB BLOOD ORDERABLES Fi nal Result JASON RAMSEY (CLARA) [address] [place], [place] , [place] * Vitamin D, 25-Hydroxy, Total, Immunoassay (12/30/2023 9:51 AM EDT) Calcidiol+ercalc idiol 61 30 - 100 ng/mL 12/30/2023 7:46 PM EDT [employer] Comment: Vitamin D Status ? 25-OH Vitamin D: Deficiency: ?<20 ng/mL Insufficiency: ? 20 - 29 ng/mL Optimal: ? > or = 30 ng/mL For 25-OH Vitamin D testing on patients on D2-supplementation and patients for whom quantitation of D2 and D3 fractions is required, the QuestAssureD(TM) 25-OH VIT D, (D2,D3), LC/MS/MS is recommended: order code [id number] (patients >2yrs). See Note 1 Note 1 For additional information, please refer to http://education.Decibel Music Systems/faq/OLZ847 (This link is being provided for informational/ educational purposes only.) Blood Structure of peripheral vein / Unknown Venipuncture / Unknown 12/30/2023 9:51 AM EDT 12/30/2023 10:39 AM EDT Narrative [facility] - 12/30/2023 7:46 PM EDT [facility] Received Date: us Nancy Petty MD LAB BLOOD ORDERABLES Fi nal Result [address], [place] [address], [place] [phone] [employer] [address], [place] [address], [place] [phone] * Folate (12/30/2023 9:51 AM EDT) Folate 4.9 4.8 - 24.2 ng/mL 12/30/2023 11:25 AM EDT [facility] Blood Structure of peripheral vein / Unknown Venipuncture / Unknown 12/30/2023 9:51 AM EDT 12/30/2023 10:39 AM EDT us Nancy Petty MD LAB BLOOD ORDERABLES Fi nal Result Performing Organization Address City/[facility]/ZIP Co de Phone Number [facility] [address] [place] [phone], * Vitamin B12 (12/30/2023 9:51 AM EDT) Vitamin B12 415 232 - 1,245 pg/mL 12/30/2023 11:25 AM EDT [facility] Blood Structure of peripheral vein / Unknown Venipuncture / Unknown 12/30/2023 9:51 AM EDT 12/30/2023 10:39 AM EDT Nancy Petty MD LAB BLOOD ORDERABLES Fi nal Result Performing Organization Address [facility] de Phone Number [facility] [address] [place] [phone], * (ABNORMAL) Comprehensive Metabolic Panel (12/30/2023 9:51 AM EDT) NA 140 135 - 145 mmol/L 12/30/2023 11:25 AM EDT [facility] K 3.6 3.5 - 5.3 mmol/L 12/30/2023 11:25 AM EDT [facility] Cl 102 98 - 107 mmol/L 12/30/2023 11:25 AM EDT [facility] CO2 27 22 - 32 mmol/L 12/30/2023 11:25 AM EDT [facility] Anion Gap 11 5 - 15 12/30/2023 11:25 AM EDT [facility] Glucose 171(H) 65 - 99 mg/dL 12/30/2023 11:25 AM EDT [facility] Creatinine 0.41(L) 0.50 - 1.20 mg/dL 12/30/2023 11:25 AM EDT [facility] Calcium 9.0 8.6 - 10.5 mg/dL 12/30/2023 11:25 AM [facility] Total Protein 7.6 6.0 - 8.0 g/dL 12/30/2023 11:25 AM [facility] Albumin 4.2 3.5 - 5.2 g/dL 12/30/2023 11:25 AM [facility] Bilirubin, Total 0.3 0.2 - 1.2 mg/dL 12/30/2023 11:25 AM [facility] Alkaline Phosphatase 152(H) 35 - 129 U/L 12/30/2023 11:25 AM [facility] AST 19 10 - 40 U/L 12/30/2023 11:25 AM [facility] ALT 12 10 - 40 U/L 12/30/2023 11:25 AM [facility] BUN 12 7 - 23 mg/dL 12/30/2023 11:25 AM [facility] eGFR >90 >=60 mL/min/1 .73m2 12/30/2023 11:25 AM [facility] Comment:The estimated glomer [...] 2.1 - 4.2 g/dL 12/30/2023 11:25 AM [facility] A/G Ratio 1.2(L) 1.5 - 3.0 12/30/2023 11:25 AM EDT [facility] Blood Structure of peripheral vein / Unknown Venipuncture / Unknown 12/30/2023 9:51 AM EDT 12/30/2023 10:39 AM EDT us Nancy Petty MD LAB BLOOD ORDERABLES Fi nal Result [facility] [address] [place] [address], [place] from Last 3 Months Insurance [employer] Care Teams Head Of Digital Relationship Specialty Start Date End Date Jaida Martin [address] [place] [phone] PCP - General Family Medicine 01/20/23
--- OUTSIDE RECORDS SUMMARY | 2024-03-30 08:37 | XMS_ITS | Encounter Summary ---
Author Organization [facility] Address [address] [place] [address] Care Team Providers Care Dispensary Technician Name Role Phone Jaida Martin Primary Care Provider +1- [phone] Reason for Visit * Consultation (Urgent) - Authorized Specialty Diagnoses / Procedures Referred By Kendrick breaux Referred To Contact Neurology Diagnoses Tremor of both hands Jaida Martin [address] [place] [address] Phone: tel: fax: [facility] [address] [place] [phone] Phone: tel: fax: Referral ID Status Reason Start Date Expiration Date Visits Requested Visits Authorized [id number] Authorized Specialty Services Required 3 07/27/2024 6 6 Encounter Details Date Type Department Care Team ([facility] st Contact Info) Description 03/08/2024 9:00 AM EST Follow-Up [facility] Neurology [address] [place] [phone] Nancy Petty MD [address] [place] [phone] Parkinsonism, unspecified Parkinsonism type (HCC) (Primary Dx); [...] EST ASSESSMENT AND PLAN: 58 y.o. left-handed polish-speaking female with history of Binge eating disorder, [...] deficiency history Was seen by PCP at [facility] on 01/22/2024, I reviewed the note which [...] neurology clinic on 01/28/2023: 57 y.o. left-handed polish-speaking female with history of Binge eating disorder, [...] today who translates per their preference, declined animal control specialist. Parkinsonism, essential tremors, depression/anxiety/PTSD, LBP with occasional [...] multiple falls, some cognitive complaints, has a [employer] [facility] to help out. Other symptoms as listed below. She has been migraine free for some time. Impression is that patient has parkinsonism that is superimposed on top of her previous history of benign essential tremors (previously followed by [facility] neurology but that was years ago). While [...] these labs. Was seen by PCP at [facility] on 01/22/2024, I reviewed the note which [...] face, upper and lower extremities bilaterally. Coordination: [id number] mild right and left IK tremors No [...] D, (D2,D3), LC/MS/MS is recommended: order code [id number] (patients >2yrs). See Note 1 Note 1 For additional information, please refer to http://education.[employer]/faq/SBI317 (This link is being provided for informational/ educational purposes only.) Vitamin B1 (Thiamine), Blood, LCMS* 12/30/2023 190 (H) 78 - 185 nmol/L Final Vitamin supplementation within 24 hours prior to blood draw may affect the accuracy of the results. This test was developed and its analytical performance characteristics have been determined by [facility] [place], [place]. It has not been cleared or [...] Info) Description 09/16/2024 8:30 AM EDT Follow-Up [facility] [address] [place] [phone] Nancy Petty MD [address] [place] [phone] documented as of this encounter Visit Diagnoses [...] persistent documented in this encounter Care Teams Dispensary Technician Relationship Specialty Start Date End Date Jaida Martin [address] [place] [address] PCP - General Family Medicine 01/20/23 documented as of this encounter
--- OUTSIDE RECORDS SUMMARY | 2024-03-30 08:37 | XMS_ITS | Referral Summary ---
Author Organization [facility] Address [address] [place] [address] Care Team Providers Care Corporate Tutor Name Role Phone Jaida Martin Primary Care Provider +[phone]- [phone] Encounters Date Type Department Care Team Description 03/23/2024 Telephone [facility] Neurology [address] [place] [phone] Nancy Petty MD 03/08/2024 9:00 AM EST Follow-Up [facility] Neurology [address] [place] [address] [phone] Nancy Petty MD Parkinsonism, unspecified Parkinsonism type [...] Info) Description 09/16/2024 8:30 AM EDT Follow-Up [facility] Neurology [address] [place] [phone] Nancy Petty MD [address] [place] [phone] Procedures * Due to [place] state law, this organization might not be [...] Last 3 Months Results * Due to [place] state law, this organization might not be sharing negative HIV tests. * TSH Reflex Free T4 (12/30/2023 9:51 AM EDT) TSH 2.410 0.280 - 3.890 uIU/mL 12/30/2023 11:25 AM EDT [facility] Comment: Females: 1st trimester ? 0.150-4.000 ??IU/mL 2nd trimester ?? 0.310-4.170 ?IU/mL 3rd trimester ?0.380-4.150 ?IU/mL Blood Structure of peripheral vein / Unknown Venipuncture / Unknown 12/30/2023 9:51 AM EDT 12/30/2023 10:39 AM EDT Nancy Petty MD LAB BLOOD ORDERABLES Fi nal Result [facility] [address] [place] [address], [place] * (ABNORMAL) CBC Auto Differential (12/30/2023 9:51 AM EDT) WBC 12.6(H) 3.8 - 10.8 10*3/uL 12/30/2023 10:52 AM EDT [facility] RBC 4.47 3.80 - 5.10 10*6/uL 12/30/2023 10:52 AM EDT [facility] Hemoglobin 11.3(L) 11.7 - 15.5 g/dL 12/30/2023 10:52 AM EDT [facility] Hematocrit 38.7 35.0 - 45.0 % 12/30/2023 10:52 AM EDT [facility] MCV 86.6 80.0 - 100.0 fL 12/30/2023 10:52 AM EDT [facility] MCH 25.3(L) 27.0 - 33.0 pg 12/30/2023 10:52 AM EDT [facility] MCHC 29.2(L) 32.0 - 36.0 g/dL 12/30/2023 10:52 AM EDT [facility] RDW 15.9(H) 11.0 - 15.0 % 12/30/2023 10:52 AM EDT [facility] Platelets 306 140 - 400 10*3/uL 12/30/2023 10:52 AM EDT [facility] MPV 10.5 7.5 - 12.5 fL 12/30/2023 10:52 AM EDT [facility] Neutrophil % 62.5 % 12/30/2023 10:52 AM EDT [facility] Immature Grans % 0.3 0.0 - 0.9 % 12/30/2023 10:52 AM EDT [facility] Lymphocyte % 30.8 % 12/30/2023 10:52 AM EDT [facility] Monocyte % 5.2 % 12/30/2023 10:52 AM EDT [facility] Eosinophil % 0.9 % 12/30/2023 10:52 AM EDT [facility] Basophil % 0.3 % 12/30/2023 10:52 AM EDT [facility] Neutrophil # 7.88(H) 1.50 - 7.80 10*3/uL 12/30/2023 10:52 AM EDT [facility] Immature Grans # 0.04(H) <=0.03 10*3/uL 12/30/2023 10:52 AM T [facility] Lymphocyte # 3.90 0.85 - 3.90 10*3/uL 12/30/2023 10:52 AM EDT [facility] Monocyte # 0.70 0.20 - 0.95 10*3/uL 12/30/2023 10:52 AM EDT [facility] Eosinophil # 0.10 0.02 - 0.50 10*3/uL 12/30/2023 10:52 AM EDT [facility] Basophil # <0.03 0.00 - 0.20 10*3/uL 12/30/2023 10:52 AM EDT [facility] nRBC % 0.0 /100 WBCs 12/30/2023 10:52 AM T [facility] nRBC # <0.01 <0.01 10*3/uL 12/30/2023 10:52 AM [facility] Blood Structure of peripheral vein / Unknown Venipuncture / Unknown 12/30/2023 9:51 AM EDT 12/30/2023 10:39 AM EDT Nancy Petty MD LAB BLOOD ORDERABLES Fi nal Result Performing Organization Address City/[facility]/ZIP Co de Phone Number [facility] [address] [place] [address], * (ABNORMAL) Vitamin B1 (Thiamine), Blood, LC/MS/MS (12/30/2023 9:51 AM EDT) Vitamin B1 (Thiamine), Blood, LCMSMS 190(H) 78 - 185 nmol/L 01/04/2024 5:28 AM EST [employer] ROX[facility] (CLARA) Comment: Vitamin supplementation within 24 hours prior to blood draw may affect the accuracy of the results. This test was developed and its analytical performance characteristics have been determined by [employer]. It has not been cleared or approved by the U.S. Food and Drug Administration. This assay has been validated pursuant to the CLIA regulations and is used for clinical purposes. Blood Structure of peripheral vein / Unknown Venipuncture / Unknown 12/30/2023 9:51 AM EDT 12/30/2023 10:39 AM EDT Narrative JASON CARRENO) - 01/04/2024 5:28 AM EST [facility] Received Date:[id number] Nancy Petty MD LAB BLOOD ORDERABLES Fi nal Result Performing Organization Address City/[facility] Co de Phone Number JASON RAMSEY [employer]) [address] [place], [place] , [place] * Vitamin D, 25-Hydroxy, Total, Immunoassay (12/30/2023 9:51 AM EDT) Calcidiol+ercalc idiol 61 30 - 100 ng/mL 12/30/2023 7:46 PM EDT [employer] [facility] Comment: Vitamin D Status ? 25-OH Vitamin D: Deficiency: ?<20 ng/mL Insufficiency: ? 20 - 29 ng/mL Optimal: ? > or = 30 ng/mL For 25-OH Vitamin D testing on patients on D2-supplementation and patients for whom quantitation of D2 and D3 fractions is required, the QuestAssureD(TM) 25-OH VIT D, (D2,D3), LC/MS/MS is recommended: order code [id number] (patients >2yrs). See Note 1 Note 1 For additional information, please refer to http://education.[employer]/faq/JFR526 (This link is being provided for informational/ educational purposes only.) Blood Structure of peripheral vein / Unknown Venipuncture / Unknown 12/30/2023 9:51 AM EDT 12/30/2023 10:39 AM EDT Narrative [facility] - 12/30/2023 7:46 PM EDT [facility] Received Date: us Nancy Petty MD LAB BLOOD ORDERABLES Fi nal Result Performing Organization Address City/[facility]/ZIP Co de Phone Number [address] [facility], [place] [address], [place] [phone] QA on Request [facility] [address], [place] [address], [place] [phone] * Folate (12/30/2023 9:51 AM EDT) Folate 4.9 4.8 - 24.2 ng/mL 12/30/2023 11:25 AM EDT [facility] Blood Structure of peripheral vein / Unknown Venipuncture / Unknown 12/30/2023 9:51 AM EDT 12/30/2023 10:39 AM EDT us Nancy Petty MD LAB BLOOD ORDERABLES Fi nal Result Performing Organization Address City/[facility]/ZIP Co de Phone Number [facility] [address] [place] [address], * Vitamin B12 (12/30/2023 9:51 AM EDT) Vitamin B12 415 232 - 1,245 pg/mL 12/30/2023 11:25 AM EDT [facility] Blood Structure of peripheral vein / Unknown Venipuncture / Unknown 12/30/2023 9:51 AM EDT 12/30/2023 10:39 AM EDT us Nancy Petty MD LAB BLOOD ORDERABLES Fi nal Result [facility] [address] [place] [address], * (ABNORMAL) Comprehensive Metabolic Panel (12/30/2023 9:51 AM EDT) NA 140 135 - 145 mmol/L 12/30/2023 11:25 AM EDT [facility] K 3.6 3.5 - 5.3 mmol/L 12/30/2023 11:25 AM EDT [facility] Cl 102 98 - 107 mmol/L 12/30/2023 11:25 AM EDT [facility] CO2 27 22 - 32 mmol/L 12/30/2023 11:25 AM EDT [facility] Anion Gap 11 5 - 15 12/30/2023 11:25 AM EDT [facility] Glucose 171(H) 65 - 99 mg/dL 12/30/2023 11:25 AM EDT [facility] Creatinine 0.41(L) 0.50 - 1.20 mg/dL 12/30/2023 11:25 AM EDT [facility] Calcium 9.0 8.6 - 10.5 mg/dL 12/30/2023 11:25 AM EDT [facility] Total Protein 7.6 6.0 - 8.0 g/dL 12/30/2023 11:25 AM [facility] Albumin 4.2 3.5 - 5.2 g/dL 12/30/2023 11:25 AM [facility] Bilirubin, Total 0.3 0.2 - 1.2 mg/dL 12/30/2023 11:25 AM [facility] Alkaline Phosphatase 152(H) 35 - 129 U/L 12/30/2023 11:25 AM [facility] AST 19 10 - 40 U/L 12/30/2023 11:25 AM [facility] ALT 12 10 - 40 U/L 12/30/2023 11:25 AM [facility] BUN 12 7 - 23 mg/dL 12/30/2023 11:25 AM [facility] eGFR >90 >=60 mL/min/1 .73m2 12/30/2023 11:25 AM [facility] Comment:The estimated glomer ular [...] 2.1 - 4.2 g/dL 12/30/2023 11:25 AM [facility] A/G Ratio 1.2(L) 1.5 - 3.0 12/30/2023 11:25 AM [facility] Blood Structure of peripheral vein / Unknown Venipuncture / Unknown 12/30/2023 9:51 AM EDT 12/30/2023 10:39 AM EDT aNncy Petty MD LAB BLOOD ORDERABLES Fi nal Result [facility] [address] [place] [address], [place] from Last 3 Months Insurance cartmi Care Teams Corporate Tutor Relationship Specialty Start Date End Date Jaida Martin [address] [place] [id number] PCP - General Family Medicine 01/20/23
--- OUTSIDE RECORDS SUMMARY | 2024-03-30 08:37 | XMS_ITS | Clinical Summary ---
Author Organization [employer] [facility] ity Address [address] [place] [address] Care Team Providers Care Paving Block Cutter Name Role Phone Unavailable Primary Care Provider [...]
[2024-03-30 09:13] LABS: Estimated Average Glucose 166 mg/dL; Hemoglobin A1C 166.7212 umol/L; Hemoglobin A1c % 7.4 % (<6.0); Total Hemoglobin (HGBA1C) 2919.3958 umol/L
[2024-03-30 09:35] LABS: Anion Gap 13 (12-20); Blood Urea Nitrogen 7 mg/dL (9-16); Calcium 8.9 mg/dL (8.4-10.2); Carbon Dioxide 28 mmol/L (22-29); Chloride 105 mmol/L (96-108); Cholesterol 85 mg/dL (<200); Estimated Glomerular Filt Rate > 60; Glucose Fasting 210 mg/dL (60-99); HDL Cholesterol 36 mg/dL (>40); LDL Cholesterol Calculated 28 mg/dL (<100); Potassium 3.5 mmol/L (3.3-5.1); Sodium 142 mmol/L (135-145); Triglycerides 105 mg/dL (<150)
[2024-03-30 10:04] LABS: Vitamin B12 320 pg/mL (200-900)
[2024-03-31 20:33] LABS: LDL Cholesterol Direct 30 mg/dL (<100)
== END 2024-03-30 08:25 | disposition home or self-care (01) ==
LOC: HO.LAB 08:24
PROVIDERS: PCP Family Medicine; Visit Provider Student in an Organized Health Care Education/Training Program
DX: E11.649 Type 2 diabetes mellitus with hypoglycemia without coma (principal); K76.0 Fatty (change of) liver, not elsewhere classified; F10.90 Alcohol use, unspecified, uncomplicated; E78.5 Hyperlipidemia, unspecified; G47.33 Obstructive sleep apnea (adult) (pediatric); I10 Essential (primary) hypertension; M17.12 Unilateral primary osteoarthritis, left knee; Z87.898 Personal history of other specified conditions; Z86.0100 Personal history of colon polyps, unspecified; Z99.89 Dependence on other enabling machines and devices
CPT/HCPCS: 36415; 80048; 80061; 82607; 83036; 83721; 99212

== ENCOUNTER 2024-03-30 08:42 | Outpatient (AMB) | payer MEDICAID, SELFPAY ==
--- OUTSIDE RECORDS SUMMARY | 2024-03-30 09:28 | XMS_ITS | Encounter Summary ---
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); Dry eyes, bilateral; Combined forms of age-related cataract of both eyes; Presbyopia Social History Tobacco Use Types Packs/Day Years Used Date Smoking Tobacco: Never Passive Smoke Exposure: Never Smokeless Tobacco: Never Alcohol Use Standard Drinks/Week Comments Never 0 (1 standard drink = 0.6 oz pur e alcohol) Alcohol Answer Date Recorded Frequency of Alcohol Consumption Not on file 05/29/2023 Average Number of Drinks Not on file 024 Frequency of Binge Drinking Not on file 05/01 Score 0 05/29/2023 Depression Answer Date Recorded Patient Health Questionnaire-9 Score 0 01/22/2024 Patient Health Questionnaire-9 Score 0 01/22/2024 Last PHQ-9: Questionnaire Data Not on file 1 03/23/2023 Housing Stability Answer Date Recorded What is your housing situation today? I have zulma blake 05/01/[address] you li ve. Do you have problems with any of the following? None of the above 05/01/2023 Food Insecurity Answer Date Recorded Within the past 12 months, y ou worried that your food would run out before you got money to buy more: Never True 05/01/2023 Within the past 12 months,th e food you bought just didn't last and you didn't have enough money to get more: Never True 03/2023 Transportation Answer Date Recorded In the past 12 months, has l ack of transportation kept you from medical appts, meetings, work or from getting things needed for daily living? No 05/01/2023 Utilities Answer Date Recorded In the past 12 months, has t he electric, gas, oil or water company threatened to shut off services in your home? No 05/01/2023 Depression Answer Date Recorded Patient Health Questionnaire-2 Score 0 01/22/2024 Internet Access Answer Date Recorded Internet Access Q1 Yes 01/22/2024 Internet Access Q2 Not on file 01/22/2024 Comments Unknown Sex and Gender Information Value Date Recorded Sex Assigned at Female 12/30/2021 10:18 AM EDT Legal Sex Female 10:18 AM EDT Gender Identity Female 12/30/2021 10:18 AM EDT Sexual Orientation Straight 12/30/2021 10 :18 AM EDT documented as of this encounter Plan of Treatment Upcoming Encounters Date Type Department Care Team (Late st Contact Info) Description 04/11/2024 10:00 AM EST Clinical Support [facility] MED[facility] [address] [place] [address] 08/01/2024 10:00 AM EDT Office Visit [facility] ADULT DENTAL [address] [place] [address] Jim, Amanda [address] [place] [address] documented as of this encounter Visit Diagnoses Diagnosis Type 2 diabetes mellitus without ophthalmic manifestations (CMS/HCC)- Primary Dry eyes, bilateral Combined forms of age-related cataract of both eyes Presbyopia documented in this encounter Additional Health Concerns Assessment Noted Time PHQ-9 Depression Total Score: 0 01/22/20 24 10:22 AM EST documented as of this encounter Care Teams Trust Mail Clerk Relationship Specialty Start Date End Date Jaida Martin DO [address] [place] [address] PCP - General Family Medicine 03/02/18 Pamela Andres Protocol ManagerSupervising Floorperson 01/14/24 documented as of this encounter
--- OUTSIDE RECORDS SUMMARY | 2024-03-30 09:28 | XMS_ITS | Encounter Summary ---
Author Organization [employer] Address [address] [facility] 7t [place] [address] Care Team Providers Care Cemetery Keeper Name Role Phone VeronicaJaida Primary Care Provider + [phone] Reason for Visit * Reason Comments Med Refill Encounter Details Date Type Department Care Team ([facility] st Contact Info) Description 02/03/2023 Refill [facility] MEDICINE [address] [place], [place] [phone] Lakshmi Jackson MD [address] [place], [place] [phone] Anemia, unspecified type Social History Tobacco Use Types Packs/Day Years Used Date Smoking Tobacco: Never Passive Smoke Exposure: Never Smokeless Tobacco: Never Alcohol Use Standard Drinks/Week Comments Never 0 (1 standard drink = 0.6 oz pur e alcohol) PHQ-2 Answer Date Recorded Patient Health Questionnaire-2 Score 0 04/03/2022 Housing Stability Answer Date Recorded What is your housing situation today? I have zulma blake 12/15/[address] you li ve. Do you have problems with any of the following? None of the above 12/15/2022 Food Insecurity Answer Date Recorded Within the past 12 months, y ou worried that your food would run out before you got money to buy more: Never True 12/15/2022 Within the past 12 months,th e food you bought just didn't last and you didn't have enough money to get more: Never True Transportation Answer Date Recorded In the past 12 months, has l ack of transportation kept you from medical appts, meetings, work or from getting things needed for daily living? Yes, it has kept me from medical appointments or getting medications. 12/12/2022 Utilities Answer Date Recorded In the past 12 months, has t he electric, gas, oil or water company threatened to shut off services in your home? No 12/15/2022 Depression Answer Date Recorded Patient Health Questionnaire-2 Score 0 04/03/2022 Comments Unknown Sex and Gender Information Value [...] Description 04/11/2024 10:00 AM EST Clinical Support [facility] MEDICINE [address] [place] [address] 08/01/2024 10:00 AM EDT Office Visit [facility] ADULT DENTAL [address] [place] [address] Amanda Fernandez [address] [place] [address] documented as of this encounter Visit Diagnoses Diagnosis Anemia, unspecified type documented in this encounter Care Teams Cemetery Keeper Relationship Specialty Start Date End Date Jaida Martin DO [address] [place] [address] PCP - General Family Medicine 03/02/18 Pamela Andres Inventory Control/Shipping ReceivingHot Tamale Worker 01/14/24 documented as of this encounter
--- OUTSIDE RECORDS SUMMARY | 2024-03-30 09:28 | XMS_ITS | Encounter Summary ---
Author Organization [employer] Address [address] [facility] [address] 7[address] [place] [address] Care Team Providers Care Foundation Drill Operator Name Role Phone Jaida Martin DO Primary Care Provider + [phone] Reason for Visit * Reason Comments Med Refill Encounter Details Date Type Department Care Team ([facility] st Contact Info) Description 02/29/2024 Refill [facility] MEDICINE [address] [place] [address] Jaida Martin DO [address] [place] [address] Chronic constipation Social History Tobacco Use Types Packs/Day Years [...] Description 04/11/2024 10:00 AM EST Clinical Support [facility] MEDICINE [address] [place] [address] 08/01/2024 10:00 AM EDT Office Visit [facility] ADULT DENTAL [address] [place] [address] JimAmanda [address] [place] [address] documented as of this encounter Visit Diagnoses Diagnosis Chronic constipation Unspecified constipation documented in this encounter Additional Health Concerns Assessment Noted Time PHQ-9 Depression Total Score: 0 01/22/20 24 10:22 AM EST documented as of this encounter Care Teams Foundation Drill Operator Relationship Specialty Start Date End Date Jaida Martin DO [address] [place] [address] PCP - General Family Medicine 03/02/18 Pamela Andres Timing AdjusterMedicinal Plant Picker 01/14/24 documented as of this encounter
--- OUTSIDE RECORDS SUMMARY | 2024-03-30 09:28 | XMS_ITS | Encounter Summary ---
Author Organization [employer] [facility] Address [address] [place] [address] 7t [place] [address] Care Team Providers Care Band Salvager Name Role Phone LachoJaida garcia Primary Care Provider Encounter Details Date Type Department Care Team (Late Contact Info) Description 12/03/2022 Abstract [facility] MEDICINE [address] [place] [address] Justine Huggins Social History Tobacco Use Types Packs/Day Years Used Date Smoking Tobacco: Never Passive Smoke Exposure: Never Smokeless Tobacco: Never Alcohol Use Standard Drinks/Week Comments Never 0 (1 standard drink = 0.6 oz pur e alcohol) PHQ-2 Answer Date Recorded Patient Health Questionnaire-2 Score 0 04/03/2022 Depression Answer Date Recorded Patient Health Questionnaire-2 [...] Description 04/11/2024 10:00 AM EST Clinical Support [facility] MEDICINE [address] [place], [place] [phone] 08/01/2024 10:00 AM EDT Office Visit [facility] ADULT DENTAL [address] [place] [address] Amanda Fernandez [address] [place] [address] documented as of this encounter Procedures Procedure Name Priority Date/Time Associated Diagnosis Comments HM PAP/HPV Routine 12/21/2019 documented in this encounter Results * Pap Smear (12/21/2019) Pap Negative for intraephithelial lesion or malignancy Negative for intraephithelial lesion or malignancy, Other HPV Undetected Historical Provider HEALTH MAINTENANCE Final Result documented in this encounter Visit Diagnoses Not on filedocumented in this encounter Care Teams Band Salvager Relationship Specialty Start Date End Date Jaida Martin DO [address] [place] [address] PCP - General Family Medicine 03/02/18 Pamela Andres Publishing Systems AnalystCorporate Claims Examiner 01/14/24 documented as of this encounter
--- OUTSIDE RECORDS SUMMARY | 2024-03-30 09:28 | XMS_ITS | Encounter Summary ---
Author Organization [employer] Address [address] [facility] [address]t [place] [address] Care Team Providers Care Systematic Theology Professor Name Role Phone Jaida Martin DO Primary Care Provider [phone] Reason for Visit * Reason Onset Date Comments Durable Medical Equipment 10/27/2023 Encounter Details Date Type Department Care Team ([facility] Contact Info) Description 10/27/2023 Telephone [facility] MEDIC[facility] [address] [place] [address] Jaida Martin DO [address] [place], [place] [phone] Durable Medical Equipment Social History Tobacco Use Types Packs/Day Years [...] AM EDT documented as of this encounter Miscellaneous Notes * Telephone Encounter - Edmund Munguia - 10/27/2023 10:50 AM EDT Tc from Yes[facility] ZAMAN requesting a script for 2-3 inch raised toilet seat bolt on. Please contact pt at [phone] documented in this encounter Plan of Treatment Upcoming Encounters Date Type Department Care Team (Late st Contact Info) Description 04/11/2024 10:00 AM EST Clinical Support [facility] [address] [place] [address] 08/01/2024 10:00 AM EDT Office Visit [facility] ADULT DENTAL [address] [place] [address] Amnada Fernandez [address] [place] [address] documented as of this encounter Visit Diagnoses Not on filedocumented in this encounter Additional Health Concerns Assessment Noted Time PHQ-9 Depression Total Score: 4 08/17/19 24 12:18 PM EDT documented as of this encounter Care Teams Systematic Theology Professor Relationship Specialty Start Date End Date Jaida Martin DO [address] [place] [address] PCP - General Family Medicine 03/02/18 Pamela Andres Statement ProcessorMedical Typist 01/14/24 documented as of this encounter
--- OUTSIDE RECORDS SUMMARY | 2024-03-30 09:28 | XMS_ITS | Encounter Summary ---
Author Organization [employer] [facility] Address [address] [facility] 7t [place] [address] Care Team Providers Care Manual Writer Name Role Phone Sheila Martinfer Primary Care Provider Encounter Details Date Type Department Care Team ([facility] Contact Info) Description 03/14/2022 Orders Only [facility] MEDICINE [address] [place] [address] Stephanie Apodaca LPN Social History Tobacco Use Types Packs/Day Years Used Date Smoking Tobacco: Never Assessed Comments Unknown Sex and Gender Information Value Date Recorded Sex Assigned at Female 12/30/2021 10:18 AM EDT Legal Sex Female 10:18 AM EDT Gender Identity Female 12/30/2021 10:18 AM EDT Sexual Orientation Straight 12/30/2021 10 :18 AM EDT COVID-19 Exposure Response Date Recorded In the last 10 days, have yo u been in contact with someone who was confirmed or suspected to have Coronavirus/COVID-19? No / Unsure 03/12/2022 9:26 AM EST documented as of this encounter Plan of Treatment Upcoming Encounters Date Type Department Care Team (Late Contact Info) Description 04/11/2024 10:00 AM EST Clinical Support [facility] MEDICINE [address] [place], [place] [phone] 08/01/2024 10:00 AM EDT Office Visit [facility] ADULT DENTAL [address] [place] [address] Amanda Fernandez [address] [place] [address] documented as of this encounter Visit Diagnoses Not on filedocumented in this encounter Care Teams Manual Writer Relationship Specialty Start Date End Date Jurcsak, Jaida, DO [address] [place] [address] PCP - General Family Medicine 03/02/18 Pamela Andres ShuckerVoltage Tester 01/14/24 documented as of this encounter
--- OUTSIDE RECORDS SUMMARY | 2024-03-30 09:28 | XMS_ITS | Encounter Summary ---
Author Organization [employer] Address [address] [facility] 7t [place] [address] Care Team Providers Care Community Engagement Coordinator Name Role Phone Jaida Martin DO Primary Care Provider [phone] Reason for Visit * Reason Onset Date Comments Durable Medical Equipment 10/01/2022 Encounter Details Date Type Department Care Team ([facility] st Contact Info) Description 10/01/2022 Telephone [facility] [address] [place] [address] Jaida Martin DO [address] [place], [place] [phone] Durable Medical Equipment Social History Tobacco Use [...] encounter Miscellaneous Notes * Telephone Encounter - Blanquita Theodore LPN - 10/01/2022 12:03 PM EDT Please review message below and advisee regarding DM Shoes * Telephone Encounter - Leidy Joaquin - 10/01/2022 11:22 AM EDT Tc from pt requesting status on rx for diabetic shoes. States [facility] has been faxing over paperwork to be signed by PCP and have not received anything back. documented in this encounter Plan of Treatment Upcoming Encounters Date Type Department Care Team (Late st Contact Info) Description 04/11/2024 10:00 AM EST Clinical Support [facility] [address] [place] [address] 08/01/2024 10:00 AM EDT Office Visit [facility] ADULT DENTAL [address] [place] [address] Jim, Amanda [address] [place] [address] documented as of this encounter Visit Diagnoses Not on filedocumented in this encounter Care Teams Community Engagement Coordinator Relationship Specialty Start Date End Date Jaida Martin DO [address] [place] [address] PCP - General Family Medicine 03/02/18 Pamela Andres Horse GroomerPrinting Machinist 01/14/24 documented as of this encounter
--- OUTSIDE RECORDS SUMMARY | 2024-03-30 09:28 | XMS_ITS | Referral Summary ---
Author Organization [facility] Address [address] [place] [address] Care Team Providers Care Internal Communications Manager Name Role Phone Jaida Martin Primary Care Provider [phone] Encounters Date Type Department Care Team Description 03/23/2024 Telephone [facility] [address] [place] [address] Nancy Petty MD 03/08/2024 9:00 AM EST Follow-Up [facility] [address] [place] [address] Nancy Petty MD Parkinsonism, unspecified Parkinsonism type [...] Info) Description 09/16/2024 8:30 AM EDT Follow-Up [facility] [address] [place] [address] Nancy Petty MD [address] [place] [phone] Procedures * Due to [place] state law, this organization might not be [...] Last 3 Months Results * Due to [place] state law, this organization might not be sharing negative HIV tests. * TSH Reflex Free T4 (12/30/2023 9:51 AM EDT) TSH 2.410 0.280 - 3.890 uIU/mL 12/30/2023 11:25 AM EDT [facility] Comment: Females: 1st trimester ? 0.150-4.000 ??IU/mL 2nd trimester ?? 0.310-4.170 ?IU/mL 3rd trimester ?0.380-4.150 ?IU/mL Blood Structure of peripheral vein / Unknown Venipuncture / Unknown 12/30/2023 9:51 AM EDT 12/30/2023 10:39 AM EDT Nancy Petty MD LAB BLOOD ORDERABLES Fi nal Result [facility] [address] [place] [address], [place] * (ABNORMAL) CBC Auto Differential (12/30/2023 9:51 AM EDT) WBC 12.6(H) 3.8 - 10.8 10*3/uL 12/30/2023 10:52 AM EDT [facility] RBC 4.47 3.80 - 5.10 10*6/uL 12/30/2023 10:52 AM EDT [facility] Hemoglobin 11.3(L) 11.7 - 15.5 g/dL 12/30/2023 10:52 AM EDT [facility] Hematocrit 38.7 35.0 - 45.0 % 12/30/2023 10:52 AM EDT [facility] MCV 86.6 80.0 - 100.0 fL 12/30/2023 10:52 AM EDT [facility] MCH 25.3(L) 27.0 - 33.0 pg 12/30/2023 10:52 AM EDT [facility] MCHC 29.2(L) 32.0 - 36.0 g/dL 12/30/2023 10:52 AM EDT [facility] RDW 15.9(H) 11.0 - 15.0 % 12/30/2023 10:52 AM EDT [facility] Platelets 306 140 - 400 10*3/uL 12/30/2023 10:52 AM EDT [facility] MPV 10.5 7.5 - 12.5 fL 12/30/2023 10:52 AM EDT [facility] Neutrophil % 62.5 % 12/30/2023 10:52 AM EDT [facility] Immature Grans % 0.3 0.0 - 0.9 % 12/30/2023 10:52 AM EDT [facility] Lymphocyte % 30.8 % 12/30/2023 10:52 AM EDT [facility] Monocyte % 5.2 % 12/30/2023 10:52 AM EDT [facility] Eosinophil % 0.9 % 12/30/2023 10:52 AM EDT [facility] Basophil % 0.3 % 12/30/2023 10:52 AM EDT [facility] Neutrophil # 7.88(H) 1.50 - 7.80 10*3/uL 12/30/2023 10:52 AM EDT [facility] Immature Grans # 0.04(H) <=0.03 10*3/uL 12/30/2023 10:52 AM T [facility] Lymphocyte # 3.90 0.85 - 3.90 10*3/uL 12/30/2023 10:52 AM EDT [facility] Monocyte # 0.70 0.20 - 0.95 10*3/uL 12/30/2023 10:52 AM EDT [facility] Eosinophil # 0.10 0.02 - 0.50 10*3/uL 12/30/2023 10:52 AM EDT [facility] Basophil # <0.03 0.00 - 0.20 10*3/uL 12/30/2023 10:52 AM EDT [facility] nRBC % 0.0 /100 WBCs 12/30/2023 10:52 AM T [facility] nRBC # <0.01 <0.01 10*3/uL 12/30/2023 10:52 AM [facility] Blood Structure of peripheral vein / Unknown Venipuncture / Unknown 12/30/2023 9:51 AM EDT 12/30/2023 10:39 AM EDT Nancy Petty MD LAB BLOOD ORDERABLES Fi nal Result Performing Organization Address City/[facility]/ZIP Co de Phone Number [facility] [address] [place] [address], * (ABNORMAL) Vitamin B1 (Thiamine), Blood, LC/MS/MS (12/30/2023 9:51 AM EDT) Vitamin B1 (Thiamine), Blood, LCMSMS 190(H) 78 - 185 nmol/L 01/04/2024 5:28 AM EST [employer] [facility] (CLARA) Comment: Vitamin supplementation within 24 hours prior to blood draw may affect the accuracy of the results. This test was developed and its analytical performance characteristics have been determined by [employer], [place]. It has not been cleared or approved by the U.S. Food and Drug Administration. This assay has been validated pursuant to the CLIA regulations and is used for clinical purposes. Blood Structure of peripheral vein / Unknown Venipuncture / Unknown 12/30/2023 9:51 AM EDT 12/30/2023 10:39 AM EDT Narrative JASON CARRENO) - 01/04/2024 5:28 AM EST [facility] Received Date:[id number] Nancy Petty MD LAB BLOOD ORDERABLES Fi nal Result Performing Organization Address City/[facility] Co de Phone Number JASON RAMSEY [employer]) [address] [place], [place] , [place] * Vitamin D, 25-Hydroxy, Total, Immunoassay (12/30/2023 9:51 AM EDT) Calcidiol+ercalc idiol 61 30 - 100 ng/mL 12/30/2023 7:46 [address] [facility] Comment: Vitamin D Status ? 25-OH Vitamin D: Deficiency: ?<20 ng/mL Insufficiency: ? 20 - 29 ng/mL Optimal: ? > or = 30 ng/mL For 25-OH Vitamin D testing on patients on D2-supplementation and patients for whom quantitation of D2 and D3 fractions is required, the QuestAssureD(TM) 25-OH VIT D, (D2,D3), LC/MS/MS is recommended: order code [id number] (patients >2yrs). See Note 1 Note 1 For additional information, please refer to http://education.[employer]/faq/FAQ526 (This link is being provided for informational/ educational purposes only.) Blood Structure of peripheral vein / Unknown Venipuncture / Unknown 12/30/2023 9:51 AM EDT 12/30/2023 10:39 AM EDT Narrative [facility] - 12/30/2023 7:46 PM EDT [facility] Received Date: us Nancy Petty MD LAB BLOOD ORDERABLES Fi nal Result Performing Organization Address City/[facility]/ZIP Co de Phone Number [address] [facility], [place] [address], [place] [phone] [employer] [facility] [address], [place] [address], [place] [phone] * Folate (12/30/2023 9:51 AM EDT) Folate 4.9 4.8 - 24.2 ng/mL 12/30/2023 11:25 AM EDT [facility] Blood Structure of peripheral vein / Unknown Venipuncture / Unknown 12/30/2023 9:51 AM EDT 12/30/2023 10:39 AM EDT us Nancy Petty MD LAB BLOOD ORDERABLES Fi nal Result Performing Organization Address City/[facility]/ZIP Co de Phone Number [facility] [address] [place] [address], * Vitamin B12 (12/30/2023 9:51 AM EDT) Vitamin B12 415 232 - 1,245 pg/mL 12/30/2023 11:25 AM EDT [facility] Blood Structure of peripheral vein / Unknown Venipuncture / Unknown 12/30/2023 9:51 AM EDT 12/30/2023 10:39 AM EDT us Nancy Petty MD LAB BLOOD ORDERABLES Fi nal Result [facility] [address] [place] [address], * (ABNORMAL) Comprehensive Metabolic Panel (12/30/2023 9:51 AM EDT) NA 140 135 - 145 mmol/L 12/30/2023 11:25 AM EDT [facility] K 3.6 3.5 - 5.3 mmol/L 12/30/2023 11:25 AM EDT [facility] Cl 102 98 - 107 mmol/L 12/30/2023 11:25 AM EDT [facility] CO2 27 22 - 32 mmol/L 12/30/2023 11:25 AM EDT [facility] Anion Gap 11 5 - 15 12/30/2023 11:25 AM EDT [facility] Glucose 171(H) 65 - 99 mg/dL 12/30/2023 11:25 AM EDT [facility] Creatinine 0.41(L) 0.50 - 1.20 mg/dL 12/30/2023 11:25 AM EDT [facility] Calcium 9.0 8.6 - 10.5 mg/dL 12/30/2023 11:25 AM EDT [facility] Total Protein 7.6 6.0 - 8.0 g/dL 12/30/2023 11:25 AM [facility] Albumin 4.2 3.5 - 5.2 g/dL 12/30/2023 11:25 AM [facility] Bilirubin, Total 0.3 0.2 - 1.2 mg/dL 12/30/2023 11:25 AM [facility] Alkaline Phosphatase 152(H) 35 - 129 U/L 12/30/2023 11:25 AM [facility] AST 19 10 - 40 U/L 12/30/2023 11:25 AM [facility] ALT 12 10 - 40 U/L 12/30/2023 11:25 AM [facility] BUN 12 7 - 23 mg/dL 12/30/2023 11:25 AM [facility] eGFR >90 >=60 mL/min/1 .73m2 12/30/2023 11:25 AM [facility] Comment:The estimated glomer ular filtration [...] 2.1 - 4.2 g/dL 12/30/2023 11:25 AM [facility] A/G Ratio 1.2(L) 1.5 - 3.0 12/30/2023 11:25 AM [facility] Blood Structure of peripheral vein / Unknown Venipuncture / Unknown 12/30/2023 9:51 AM EDT 12/30/2023 10:39 AM EDT Nancy Petty MD LAB BLOOD ORDERABLES Fi nal Result [facility] [address] [place] [address], [place] from Last 3 Months Insurance [employer] Care Teams Internal Communications Manager Relationship Specialty Start Date End Date Jaida Martin [address] [place] [phone] PCP - General Family Medicine 01/20/23
--- OUTSIDE RECORDS SUMMARY | 2024-03-30 09:28 | XMS_ITS | Encounter Summary ---
Author Organization [employer] Address [address] [facility] [address] 7[address] [place] [address] Care Team Providers Care Second Worker Name Role Phone Jaida Martin DO Primary Care Provider [phone] Reason for Visit * Reason Comments Med Refill Encounter Details Date Type Department Care Team ([facility] st Contact Info) Description 03/29/2024 Refill [facility] [address] [place] [address] Jaida Martin DO [address] [place], [place] [phone] Anemia, unspecified type Social History Tobacco Use [...] Description 04/11/2024 10:00 AM EST Clinical Support [facility] [address] [place] [address] 08/01/2024 10:00 AM EDT Office Visit [facility] ADULT [facility] [address] [place] [address] Jim, Amanda [address] [place] [address] documented as of this encounter Visit Diagnoses Diagnosis Anemia, unspecified type documented in this encounter Additional Health Concerns Assessment Noted Time PHQ-9 Depression Total Score: 0 01/22/20 24 10:22 AM EST documented as of this encounter Care Teams Second Worker Relationship Specialty Start Date End Date Jaida Martin DO [address] [place] [address] PCP - General Family Medicine 03/02/18 Pamela Andres Rehab TrainerMolded Goods Spot Picker 01/14/24 documented as of this encounter
--- OUTSIDE RECORDS SUMMARY | 2024-03-30 09:28 | XMS_ITS | Encounter Summary ---
Author Organization [employer] [facility] Address [address] [facility] 7t [place] [address] Care Team Providers Care Novelty Maker Name Role Phone Jaida Martin DO Primary Care Provider Reason for Visit * Reason Onset Date Comments requesting a call back 03/07/2022 Encounter Details Date Type Department Care Team (Late Contact Info) Description 03/07/[address] [facility] [address] [place] [address] Jaida Martin DO [address] [place] [address] requesting a call back Social History Tobacco Use Types Packs/Day Years Used Date Smoking Tobacco: Never Assessed Comments Unknown Sex and Gender Information Value Date Recorded Sex Assigned at Female 12/30/2021 10:18 AM EDT Legal Sex Female 10:18 AM EDT Gender Identity Female 12/30/2021 10:18 AM EDT Sexual Orientation Straight 12/30/2021 10 :18 AM EDT documented as of this encounter Miscellaneous Notes * Telephone Encounter - Trevin Lmi - 03/07/2022 9:30 AM EST Tc from pt returning call. Pt requesting a call back Please contact pt at [phone] documented in this encounter Plan of Treatment Upcoming Encounters Date Type Department Care Team (Late Contact Info) Description 04/11/2024 10:00 AM EST Clinical Support [facility] [address] [place] [address] 08/01/2024 10:00 AM EDT Office Visit [facility] ADULT DENTAL [address] [place], [place] [phone] Amanda Fernandez [address] [place] [address] documented as of this encounter Visit Diagnoses Not on filedocumented in this encounter Care Teams Novelty Maker Relationship Specialty Start Date End Date Jaida Martin DO [address] [place] [address] PCP - General Family Medicine 03/02/18 Pamela Andres Computer Software EngineerSpeech Language Pathologist Travel 01/14/24 documented as of this encounter
--- OUTSIDE RECORDS SUMMARY | 2024-03-30 09:28 | XMS_ITS | Encounter Summary ---
Author Organization [employer] [facility] Address [address] [facility] 7t [place] [address] Care Team Providers Care Slice Cutting Machine Operator Helper Name Role Phone Sehila Martinfer Primary Care Provider [phone] Reason for Visit * Reason Onset Date Comments Appointment 10/22/2022 Encounter Details Date Type Department Care Team ([facility] st Contact Info) Description 10/22/2022 Telephone [facility] ADULT DENTAL [address] [place], [place] [phone] Campbell Nguyễn DDS [address] [place], [place] [phone] Appointment Social History Tobacco Use Types Packs/Day Years [...] encounter Miscellaneous Notes * Telephone Encounter - Shahana Crockett - 10/22/2022 9:25 AM EDT Patient had to cancel an appt she had in June for extraction because she was sick. She is trying to schedule the appt again. She has been calling off and on but nothing has been available to get her in. Can she be scheduled DR documented in this encounter Plan of Treatment Upcoming Encounters Date Type Department Care Team (Late st Contact Info) Description 04/11/2024 10:00 AM EST Clinical Support [facility] MED[facility] [address] [place] [address] 08/01/2024 10:00 AM EDT Office Visit [facility] ADULT DENTAL [address] [place], [place] [phone] Jim, Amanda [address] [place] [address] documented as of this encounter Visit Diagnoses Not on filedocumented in this encounter Care Teams Slice Cutting Machine Operator Helper Relationship Specialty Start Date End Date Jaida Martin DO [address] [place] [address] PCP - General Family Medicine 03/02/18 Pamela Andres Metalworking SpecialistCross Tie Turner 01/14/24 documented as of this encounter
--- OUTSIDE RECORDS SUMMARY | 2024-03-30 09:28 | XMS_ITS | Encounter Summary ---
Author Organization [employer] [facility] Address [address] [facility] 7t [place] [address] Care Team Providers Care Manager Account Management Name Role Phone Jaida Martin DO Primary Care Provider Reason for Visit * Reason Onset Date Comments Referral 05/05/2022 Encounter Details Date Type Department Care Team ([facility] Contact Info) Description 05/05/2022 Telephone [facility] MEDICINE [address] [place], [place] [phone] Jaida Martin DO [address] [place] [address] Referral Social History Tobacco Use Types Packs/Day Years [...] suspected to have Coronavirus/COVID-19? No / Unsure 05/07/2022 9:26 AM EST documented as of this encounter Miscellaneous Notes * Telephone Encounter - Blank Blank RN - 05/05/2022 11:48 AM EST Noted pt. Last seen by [facility] April 2021 for gastroparesis and acid reflux. TC placed to pt. And reports she attempted to schedule f/up appt. But was advised they need a new R number to approve more visits. Please send R number to [facility], thank you! * Telephone Encounter - Sugar Vazquez - 05/05/2022 9:30 AM EST Tc from pt requesting a referral Location : [facility] Specialty: Gastrology Date and time : N/A documented in this encounter Plan of Treatment Upcoming Encounters Date Type Department Care Team (Late st Contact Info) Description 04/11/2024 10:00 AM EST Clinical Support [facility] MED[facility] [address] [place] [address] 08/01/2024 10:00 AM EDT Office Visit [facility] ADULT DENTAL [address] [place] [address] Amanda Fernandez [address] [place] [address] documented as of this encounter Visit Diagnoses Not on filedocumented in this encounter Care Teams Manager Account Management Relationship Specialty Start Date End Date Jaida Martin DO [address] [place] [address] PCP - General Family Medicine 03/02/18 Pamela Andres Manager Home HealthcarePress Operator Automatic 01/14/24 documented as of this encounter
--- OUTSIDE RECORDS SUMMARY | 2024-03-30 09:28 | XMS_ITS | Clinical Summary ---
Author Organization [employer] Address [address] [place] [address] Care Team Providers Care Crop Research Scientist Name Role Phone VeronicaJaida Primary Care Provider [phone] Allergies No known active allergies Medications * This document contains information received from the source organization and may not represent a complete record from that organization. ProAir HFA 108 (90 Base) MCG/ACT inhaler INHALE 2 PUFFS BY MOUTH EVERY 4 TO 6 HOURS NEEDED (for asthma) 2021 Active Alcohol Swabs (Alcohol Prep) 70 % pads USE DIRECTED TWICE DAILY 2021 Active clonazePAM (KlonoPIN) 1 MG tablet TAKE 1 TABLET BY MOUTH THREE TIMES DAILY IN THE MORNING, EVENING, AND BEDTIME NEEDED 2021 Active cloNIDine (Catapres) 0.1 MG tablet TAKE 1 TABLET BY MOUTH EVERY EVENING 2021 Active furosemide (Lasix) 20 MG tablet TAKE 1 TABLET BY MOUTH EVERY MORNING 2021 Active gabapentin (Neurontin) 400 MG capsule TAKE 1 CAPSULE BY MOUTH THREE TIMES DAILY IN THE MORNING, EVENING, AND BEDTIME 2021 Active Baqsimi Two Pack 3 MG/DOSE nasal powder USE 1 SPRAY (3MG) IN ONE NOSTRIL FOR A PATIENT WITH SEVERE HYPOGLYCEMIA WHO IS NOT RESPONSIVE AND UNABLE SELF-TREAT WITH GLUCOSE. AFTERWARDS TURN ON SIDE. MAY REPEAT IN 15MINUTES IF PATIENT DOES NOT RESPOND. 2021 Active FREESTYLE LITE test strip TEST BLOOD SUGAR FIVE TIMES DAILY 2021 Active Pentips 32G X 4 MM misc USE DIRECTED TWICE DAILY 2021 Active HumuLIN R U-500 KWIKPEN 500 UNIT/ML CONCENTRATED injection Inject 60 Units under the skin 2 times daily. 2021 Active TRUEplus Lancets 33G misc TEST BLOOD SUGAR 4 TIMES A DAY 2021 Active melatonin 5 MG tablet TAKE 1 TO 2 TABLETS BY MOUTH AT BEDTIME NEEDED 2021 Active nortriptyline (Pamelor) 75 MG capsule TAKE 1 CAPSULE BY MOUTH AT BEDTIME 2021 Active propranolol (Inderal) 80 MG tablet TAKE 1 TABLET BY MOUTH TWICE DAILY IN THE MORNING AND IN THE EVENING 2021 Active Reguloid 57.6 % powder DISSOLVE 1 TABLESPOONFUL IN 8 OUNCES WATER AND DRINK TWICE DAILY DIRECTED 2022 Active ARIPiprazole (Abilify) 15 MG tablet Take 15 mg by mouth in the morning. Active Spiriva Respimat 2.5 MCG/ACT inhaler INHALE 2 PUFFS BY MOUTH EVERY DAY 2023 Active fluticasone furoate (Arnuity Ellipta) 200 MCG/ACT inhaler Inhale 1 puff Once per day. Rinse mouth with water after use to reduce aftertaste and incidence of candidiasis. Do not swallow. 1 each 08/17 Active acetaminophen (Tylenol 8 Hour) 650 MG ER tablet Take 1 tablet (650 mg) by mouth every 8 (eight) hours if needed for mild pain. Do not crush, chew, or split. 60 tablet 3 08/17 Active Diclofenac Sodium 1 % gel Please use as needed for pain up to 4x daily 150 g 3 2023 Active lidocaine (Lidoderm) 5 % patch Apply 1-2 patches topically if needed each day for mild pain. Remove & discard patch within 12 hours or as directed by MD. 60 patch 3 2023 Active glucose 4 g chewable tablet CHEW 4 TABLETS NEEDED FOR low blood sugar (LESS THAN 70mg/dL). TEST BLOOD SUGAR AFTER 15 MINUTES IF <70 REPEAT 90 tablet 4 2023 Active Continuous Glucose Sensor (FreeStyle Ortiz 2 Sensor) misc Take 1 tablet by mouth Once per day. 2023 Active metFORMIN (Glucophage) 500 MG tabletIndications: Type 2 diabetes mellitus with other specified complication, with long-term current use of insulin (CMS/HCC) TAKE 2 TABLETS BY MOUTH TWICE DAILY IN THE MORNING AND EVENING 360 tablet 1 2023 Active albuterol (2.5 MG/3ML) 0.083% nebulizer solution INHALE 1 AMPULE USING A NEBULIZER EVERY 6 HOURS NEEDED FOR WHEEZING 90 mL 1 2023 Active valsartan (Diovan) 160 MG tabletIndications: Hypertension, unspecified type TAKE 1 TABLET BY MOUTH EVERY MORNING 90 tablet 1 2023 Active Aspirin Low Dose 81 MG EC tabletIndications: Hyperlipidemia, unspecified hyperlipidemia type TAKE 1 TABLET BY MOUTH EVERY MORNING 90 tablet 3 2023 Active cyanocobalamin (Vitamin B-12) 1000 MCG/ML injectionIndicatio ns:B12 deficiency INJECT 1 ML INTRAMUSCULARLY EVERY OTHER MONTH 1 mL 5 2023 Active levothyroxine (Synthroid, Levoxyl) 125 MCG tabletIndications: Hypothyroidism, unspecified type TAKE 1 TABLET BY MOUTH EVERY MORNING 90 tablet 3 2023 Active cholecalciferol (D3 Super Strength) 50 MCG (1999 UT) capsuleIndications :Vitamin D deficiency TAKE 1 CAPSULE BY MOUTH EVERY MORNING 90 capsule 3 2023 Active thiamine (Vitamin B-1) 100 MG tabletIndications: Anemia, unspecified type TAKE 1 TABLET BY MOUTH EVERY MORNING 90 tablet 3 2023 Active Mounjaro 10 MG/0.5ML solution auto-injector INJECT ONE PEN (=10MG) SUBCUTANEOUSLY ONCE A WEEK DIRECTED 2023 Active omeprazole (PriLOSEC) [address] capsuleIndications :Chronic gastroesophageal reflux disease TAKE 1 CAPSULE BY MOUTH EVERY MORNING BEFORE A MEAL 90 capsule 1 2023 Active rosuvastatin (Crestor) 20 MG tabletIndications: Hyperlipidemia, unspecified hyperlipidemia type TAKE 1 TABLET BY MOUTH AT BEDTIME 90 tablet 1 2023 Active docusate sodium (Colace) 100 MG capsuleIndications :Chronic constipation TAKE 1 CAPSULE BY MOUTH TWICE DAILY IN THE MORNING AND IN THE EVENING 180 capsule 1 2023 Active Ferrous Sulfate (iron) 325 (65 Fe) MG tabletIndications: Anemia, unspecified type TAKE 1 TABLET BY MOUTH EVERY OTHER DAY IN THE MORNING 45 tablet 1 2024 Active ferrous sulfate (FeroSul) 325 (65 Fe) MG tabletIndications: Anemia, unspecified type TAKE 1 TABLET BY MOUTH EVERY OTHER DAY IN THE MORNING 45 tablet 1 03/29 Discontinued Hospital, Clinic, or Other Facility Administered Medication Ordered Dose Route Frequency Start Date End Date Status cyanocobalamin (Vitamin B-12) injection 1,000 mcgIndications:B12 deficiency 1000 mcg IM Every 8 weeks 02/15/2024 03/13/2025 Active Active Problems Problem Noted Date Diagnosed Date Fractured dental alevism with loss of materi al 06/24/2023 Partial edentulism 04/17/2023 Dental plaque 04/17/2023 History of COVID-19 04/13/2023 Essential tremor 01/28/2023 Intention tremor 01/28/2023 Parkinsonism 01/28/2023 Vitamin D deficiency 01/28/2023 S/P hemorrhoidectomy 09/12/2022 Overview (09/12/2022): Surgery performed 09/09/22 Returned to ED 09/10/22 for inability to stool or urinate Godinez placed Assessment & Plan (09/12/2022 1:37 PM EDT): Pt has stooled since surgery, loose Taking Prune juice to prevent constipation Pain with sitting. Avoiding applying pressure to area Encourage to keep F/u Appt 09/26/22 F/u PRN with PCP Restrictive lung disease 09/12/2022 Overview (09/12/2022): Care managed by Pulmonology Appt 07/10/22 Treating Arben Hare + CLIVE PRN Reports she had O2 therapy in the past. Discontinued about 4 months ago, 2 L Assessment & Plan (09/12/2022 7:49 PM EDT): O2 saturation low today 90-92%. Low at ED 09/10/22 Started 2L oxygen at clinic, O2 sat increased to 96% Associated SOB, dizziness, unsteady on feet Concern for sending pt home Discussed options with pt, ED transfer. Pt agrees Called ambulance. WHO with EMS staff [place] [facility] [place], weakness Will monitor for ED documents. F/u after discharge Fatty liver 06/17/2022 Mild persistent asthma 06/17/2022 Fibromyalgia 06/17/2022 Chronic bilateral low back pain 06/17/2022 Urinary incontinence 06/17/2022 BMI 40.0-44.9, adult 06/17/2022 Dental caries 06/02/2022 Chronic constipation 05/27/2022 Assessment & Plan (05/27/2022 1:56 PM EDT): Colace prn. Vitamin B12 deficiency 04/03/2022 Obstructive sleep apnea 04/03/2022 Major depression, recurrent, chronic 04/03/2022 Gastroparesis 03/24/2022 Hypothyroidism 02/08/2016 Anemia 12/15/2014 Anxiety 12/15/2014 Posttraumatic stress disorder 12/15/2014 Essential hypertension 12/15/2014 Gastroesophageal reflux disease 12/15/2014 Hyperlipidemia 12/15/2014 Chronic migraine 12/15/2014 Overactive bladder 12/15/2014 Type 2 diabetes mellitus 12/15/2014 Assessment & Plan (05/29/2023 2:48 PM EDT): Uncontrolled, most likely related to recent URI + Prednisone use Mounjaro Rx by chief hospital administrator yesterday is on backorder for at least 2 wks, I will call to discuss about starting her on long acting insulin until mounjaro is available (PA done already by per pharmacy) Continue Metformin + Insulin R 60u bid ac meals Discussed the importance of using insulin R only prior to meals, potential hypoglycemia discussed w/ pt and she glucose gel + glucagon Pt seen by equities trader [facility] this yr FU w PCP in 3 m Resolved Problems Problem Noted Date Diagnosed Date Resolved Date External bleeding hemorrhoids 05/27/2022 06/17/2022 Assessment & Plan (05/27/2022 1:56 PM EDT): Hemorrhoids were manually reducible, via rectal exam with lubricant. Patient offered no complaints. No active or residual bleeding noted. Hb is fairly normal. Rx Hydrocortisone rectal cream with applicator Colace prn constipation FU w PCP for fu colonoscopy, as per patient she's due for this year. Reconsult prn Dependence on supplemental oxygen 03/24/2022 04/03/2022 Obstructive sleep apnea syndrome 03/24/2022 04/03/2022 Mild intermittent asthma 05/10/201804/2022 Chronic low back pain 12/15/20142023 Cobalamin deficiency 12/15/2014 023 Recurrent major depression 12/15/2014 0 04/03/2022 Encounters Date Type Department Care Team Description 03/30/2024 Orders Only GENERIC EXTERNAL DATA DEPARTMENT Provider, Generic External Data 03/29/2024 Refill [facility] [address] [place] [address] Jaida Martin DO Anemia, unspecified type 03/17/2024 9:30 AM EST Office Visit [facility] [address] [place] [address] Ta, Soha, OD Type 2 diabetes mellitus without ophthalmic manifestations (CMS/HCC) (Primary Dx); Dry eyes, bilateral; Combined forms of age-related cataract of both eyes; Presbyopia 03/17/2024 Travel 02/29/2024 Refill [facility] [address] [place] [address] Jaida Martin DO Chronic constipation 02/26/2024 Orders Only GENERIC EXTERNAL DATA DEPARTMENT Provider, Generic External Data 02/15/2024 10:00 AM EST Clinical Support [facility] [address] [place] [address] Tara Hartman, RN Vitamin B12 deficiency [E53.8] 02/15/2024 Orders Only [facility] [address] [place] [address] Jaida Martin DO B12 deficiency (Primary Dx) 02/15/2024 Travel 02/02/2024 Refill [facility] [address] [place] [address] Jaida Martin DO Chronic gastroesophageal reflux disease; Hyperlipidemia, unspecified hyperlipidemia type 01/22/2024 10:30 AM EST Office Visit [facility] [address] [place] [address] Jaida Martin DO Routine history and physical examination of adult (Primary Dx); Type 2 diabetes mellitus with microalbuminuria, with long-term current use of insulin ([facility]); Essential hypertension; Other hyperlipidemia; Major depression, recurrent, chronic ([facility]); Fatty liver; Mild persistent asthma without complication; Obstructive sleep apnea; Mixed stress and urge urinary incontinence; Fibromyalgia; Chronic bilateral low back pain, unspecified whether sciatica present; Chronic pain of both knees; BMI 40.0-44.9, adult ([facility]); Encounter for immunization 01/22/2024 Travel 01/14/2024 Telephone [facility] [address] [place] [phone] Jaida Martin DO Care Coordination (ICP BH) 01/11/2024 Telephone [facility] [address] [place] [address] [phone] Jaida Martin DO No Show 01/06/2024 Refill [facility] [address] [place] [address] [phone] Jaida Martin DO Hyperlipidemia, unspecified hyperlipidemia type; B12 deficiency; Hypothyroidism, unspecified type; Vitamin D deficiency; Anemia, unspecified type 01/04/2024 Patient Outreach [facility] [address] [place] [phone] Jaida Martin DO Pre-visit Planning (SDOH screening was completed on 05/20/2023) 01/04/2024 Orders Only GENERIC EXTERNAL DATA DEPARTMENT Provider, Generic External Data from Last 3 Months Immunizations Name Administration Dates Next Due Hep A, Adult 06/12/2008,03/18/2007,05/21/2006 Hep B, adult 07/14/2008, 9,10/28/2006,06/25,05/21/2006 Influenza injectable quadriv alent IIV4 with preservative 01/01/2018,12/19/2015,12/15/2014 Influenza injectable quadriv alent preservative free 11/18/2022,11/21/2021,11/27/2020,01/18,01/12/2019,12/18/2016 Influenza, IIV3, injectable 12/13/2013,1 ,11/12/2009,11/27,12/24/2007,01/15/2006 Influenza, Split (incl. adriano fied surface antigen) 11/22/2012,11/18/2011 Influenza, seasonal, injecta ble, preservative free 01/22/2024 Pfizer Covid-19 Vaccine 12+ 01/22/2024 Pneumococcal Conjugate PCV 20 11/21/2021 Pneumococcal Polysaccharide PPSV23 03/21/2018,,05/31/2009 Pneumococcal, Unspecified 05/31/2009 TD (adult), 2 Lf tetanus tox oid, preservative free, adsorbed 01/15/2006 Tdap 11/15/2020,05/31/2009,04/23/2009 Zoster, Recombinant 09/11/2020,07/05/2020 Family History Medical History Relation Name Comments Diabetes Brother Hypertension Brother Stroke Brother Tremor Brother Diabetes Mother Stomach cancer Sister Relation Name Status Comments Brother Father Mother Sister Social History Tobacco Use Types Packs/Day Years Used Date Smoking Tobacco: Never Passive Smoke Exposure: Never Smokeless Tobacco: Never Tobacco Cessation:Counseling Given: [...] Orientation Straight 12/30/2021 10 :18 AM EDT Last Filed Vital Signs Vital Sign Reading Time Taken Comments Blood Pressure 119/70 01/22/2024 10:21 AM EST Pulse 78 01/22/2024 10:21 AM EST Temperature 36.1 ??C (97 ??F) 01/22/2024 10:21 AM EST Respiratory Rate 20 01/22/2024 10:21 AM EST Oxygen Saturation 98% 01/22/2024 10:21 AM EST Inhaled Oxygen Concentration - - Weight 110 kg (241 lb 12.8 oz) 01/22/2024 10:21 AM EST Height 162.6 cm (5' 4 ) 01/22/2024 10:21 AM EST Body Mass Index 41.5 01/22/2024 10:21 AM EST Plan of Treatment Upcoming Encounters Date Type Department Care Team (Late st Contact Info) Description 04/11/2024 10:00 AM EST Clinical Support [facility] [address] [place] [address] 08/01/2024 10:00 AM EDT Office Visit [facility] [address] [place] [address] Amanda Fernandez [address] [place] [address] Health Maintenance Due Date Last Done Comments CT Colonography 1967 FIT DNA/Cologuard 1965 FIT 1965 FOBT 1965 Sigmoidoscopy 1965 Pap Smear 12/20/2022 12/21/2019 Colonoscopy 05/11/2023 05/10/2018 Colorectal Cancer Screening 05/11/2023 Dental Oral Exam 10/17/2023 04/17/2023, 04/22/2022 Dental Prophylaxis 10/17/2023 04/17/2023, 04/22/2022 Lipid Panel 12/13/2023 12/12/2022, 06/30, 12/31/2021, Additional history exists Diabetes: Hemoglobin A1C 03/29/2024 025, 12/28/2023, 10/06/2023, Additional history exists Dental X-Ray: Bitewings 04/18/2024 04/17/2023, 04/22 Diabetes: Foot Exam 05/28/2024 05/29/2023, 05/29/2023, 05/29/2023, Additional history exists Dental X-Ray: Full Mouth 06/19/2024 06/18/2021 Cervical Cancer Screening 12/20/2024 HPV/Cotest 12/20/2024 12/21/2019 Alcohol/Substance Use Screening 01/21/2025 01/22/2024 Depression Screening 01/21/2025 01/22/2024, 01/22/20 24 SDOH Screening 01/21/2025 01/22/2024 Tobacco Screening 03/17/2025 03/17/2024 Mammogram 08/25/2025 08/26/2023, 07/02, 07/29/2022, Additional history exists Eye Exam 03/17/2026 03/17/2024, 03/02, 03/17/2024, Additional history exists DTaP/Tdap/Td Vaccines (4 - Td or Tdap) 11/15/2030 11/15/2020, 05/31/2009, 04/23/2009, Additional history exists RSV Patients and Patients Aged 60 years or older (1 - 1-dose 75+ series) 07/10/2042 Hepatitis A Vaccines Completed 06/12/2008, 03/18/2007, 05/21/2006 Hepatitis B Vaccines Completed 07/14/2008, 06/12/2008, 10/28/2006, Additional history exists HIV Screening Completed 03/12/2020 Zoster Vaccines Completed 09/11/2020, 07/05/2020 Pneumococcal Vaccine: Pediatrics (0 to 5 Years) and At-Risk Patients (6 to 49) Years) Completed 11/21/2021, 03/21/2018, 10/17/2012, Additional history exists Hepatitis C Screening Completed 07/21/2023 , 10/25/2020, 03/12/2020 COVID-19 Vaccine Completed 01/22/2024, , 07/30/2021, Additional history exists Influenza Vaccine Completed 01/22/2024, , 11/21/2021, Additional history exists HIB Vaccines Aged Out No longer eligi ble based on patient's age to complete this topic HPV Vaccines Aged Out No longer eligi ble based on patient's age to complete this topic IPV Vaccines Aged Out No longer eligi ble based on patient's age to complete this topic Meningococcal Vaccine Aged Out No katja natalia eligible based on patient's age to complete this topic RSV under 20 months Aged Out No longe r eligible based on patient's age to complete this topic Rotavirus Vaccines Aged Out No longer eligible based on patient's age to complete this topic Procedures Procedure Name Priority Date/Time Associated Diagnosis Comments HEMOGLOBIN A1C Routine 03/30/2024 8:38 AM EST GLUCOSE, WHOLE BLOOD Routine 02/26/2024 10:03 AM EST POCT GLUCOSE Routine 01/22/2024 10:23 AM EST Type 2 diabetes mellitus with microalbuminuria, with long-term current use of insulin ([facility]) GLUCOSE, WHOLE BLOOD Routine 01/04/2024 10:17 AM EST BI MAMMOGRAM SCREENING TOMOSYNTHESIS BILATERAL Routine 08/26/2023 9:13 AM EDT HEPATITIS PANEL, GENERAL Routine 07/21/2023 8:47 AM EDT Full PROPHYLAXIS - ADULT Routine 04/17/2023 2:00 PM EST Dental plaque Dental caries BITEWINGS - 3 RADIOGRAPHIC IMAGES Routine 04/17/2023 2:00 PM EST Missing teeth, acquired Dental plaque Dental caries PERIODIC ORAL EVALUATION - ESTABLISHED PATIENT Routine 04/17/2023 2:00 PM EST LIPID PANEL, STANDARD Routine 12/12/2022 10:13 AM EDT Type 2 diabetes mellitus with microalbuminuria, with long-term current use of insulin ([facility]) Other hyperlipidemia HIV 1/2 ANTIGEN/ANTIBODY, FOURTH GENERATION W/RFL Routine 03/12/2020 8:49 AM EST PAP/HPV Routine 12/21/2019 COLONOSCOPY Routine 05/10/2018 from Last 3 Months or Most Recently Relevant to Health Maintenance Results * (ABNORMAL) Hemoglobin A1c (03/30/2024 8:38 AM EST) Hemoglobin A1c 7.4(H) <6.0 % [facility] Comment:Hemoglobin A1C Refer ence Range Adults: 4.8 - 6.0 % Non diabetic: < 6.0 % Goal: < 7.0 %Additional Action Suggested: > 8.0 %Note: Hemoglobin A1c results are invalid for patients with abnormal amounts of HbF. Blood transfusions may impact the HbA1c concentration in the patient sample. Estimated Average Glucose 166 mg/dL [facility] Comment:eAG = Estimated ave rage glucose which is %A1C expressed asaverage glucose, using the formula of the D1G-EzoyzrlBpbkwfj Glucose study (ADAG), Diabetes Care, Vol.31,#8,Sep. 2007 03/30/2024 8:38 AM EST 03/30/2024 8:38 AM EST us Generic External Data Provider LAB BLOOD ORDERAB LES Final Result [facility] [address] [place] [phone] * (ABNORMAL) Glucose, Whole Blood (02/26/2024 10:03 AM EST) Only the most recent of2 resultswithin the time period is included. Glucose, Whole Blood 305(H) 60 - 115 mg/dL [facility] Comment:METER #: [id number] Testing performed in the Endocrinology Department [facility], [address] [place] [address] [address], [address], [place]. 02/26/2024 10:0 3 AM EST 02/26/2024 10:07 AM EST us Generic External Data Provider LAB BLOOD ORDERAB LES Final Result [facility] [address] [place] [address] [phone] * POCT Glucose (01/22/2024 10:23 AM EST) Glucose Blood, POC 139 60 - 200 mg/dL QC Media Lot # [id number] Lot# Expiration Date [id number] Blood Capillary blood specimen / Unknown 01/22/2024 10:23 AM EST Jaida Martin DO POINT OF CARE TEST ENTER/RICHARD T ORDERABLES Final Result * BI Mammogram Screening Tomosynthesis Bilateral (08/26/2023 9:13 AM EDT) Anatomical Region Laterality Modality Breast Bilateral Mammography 08/26/2023 9:13 AM EDT Narrative 08/26/2023 10:28 AM EDT ? [facility] [place] [facility] ?[place] [address] ? Mammography Report ? Signed ? Patient: Candace Valdez ?MR#: M ?? [id number] ? : 1965 ?Acct:[id number] ? Age/Sex: 58 / F ?ADM Date: 06/26/24 ? Loc: HO.MAMMO ? Attending Emily Martin DO ? Ordering Physician: Jurcsak,Jaida A DO ?Results: 1N ?? egative ? Date of Service: 08/26/23 ?Follow Up: 1 Year From Orig ?? inal Mammogram ? Procedure(s): MM tomosynthesis screening BI ?? Accession Number(s): [id number] ? cc: Jaida Martin DO ? EXAMINATION: ?? MM SCREENING DIGITAL BREAST TOMOSYNTHESIS, BILATERAL ? CLINICAL INFORMATION: ? Screening. Asymptomatic. ? COMPARISON: ?? Mammography: This study is compared with prior exams dating back to ?? 2018. ? TECHNIQUE: ?? Digital breast tomosynthesis is performed in both the craniocaudal and ?? mediolateral oblique views along with computer-aided detection (CAD). ?? Synthesized 2D images are generated from the tomosynthesis. ? FINDINGS: ?? There are scattered areas of fibroglandular density (ACR BI-RADS breast ?? composition Category b). ? There are no significant masses, abnormal calcifications, or other ?? abnormalities. ? MM/MM tomosynthesis screening BI ?? IMPRESSION: ?? No mammographic evidence of malignancy. ? ASSESSMENT: ? BI-RADS BI-RADS 1 - Negative ? RECOMMENDATION: ?? Routine annual mammography screening. ? 1 year F/U ? This examination should not preclude the clinical evaluation of a ?? suspicious palpable abnormality. ? This patient's information was entered into a reminder system with a ?? target due date for their next mammogram. ? Dictated By: ?Delia Roberts MD ? Signed By: ?<Electronically signed by Delia Roberts MD in OV> ? 08/26/23 1024 ? DD/ 0913 ? TD/TT: ? Data Scientist: ? Procedure Note Donotuseinterpreter, Image - 08/26/2023 [facility] [address] [place] [address] Mammography Report Signed Patient: Kelsea Valdez#: M [id number] : 1965Acct:[id number] Age/Sex: 58 / FADM Date: 08/26/23 Loc: HO.MAMMO Attending Dr: Jaida Martin DO Ordering Physician: Jaida Martinults: 1N egative Date of Service: 08/26/23Follow Up: 1 Year From Orig inal Mammogram Procedure(s): MM tomosynthesis screening BI Accession Number(s): [id number] cc: Jaida Martin DO EXAMINATION: MM SCREENING DIGITAL BREAST TOMOSYNTHESIS, BILATERAL CLINICAL INFORMATION: Screening. Asymptomatic. COMPARISON: Mammography: This study is compared with prior exams dating back to 2019. TECHNIQUE: Digital breast tomosynthesis is performed in both the craniocaudal and mediolateral oblique views along with computer-aided detection (CAD). Synthesized 2D images are generated from the tomosynthesis. FINDINGS: There are scattered areas of fibroglandular density (ACR BI-RADS breast composition Category b). There are no significant masses, abnormal calcifications, or other abnormalities. MM/MM tomosynthesis screening BI IMPRESSION: No mammographic evidence of malignancy. ASSESSMENT: BI-RADS BI-RADS 1 - Negative RECOMMENDATION: Routine annual mammography screening. 1 year F/U This examination should not preclude the clinical evaluation of a suspicious palpable abnormality. This patient's information was entered into a reminder system with a target due date for their next mammogram. Dictated By: Delia Roberts MD Signed By: <Electronically signed by Delia Roberts MD in OV> 08/26/23 1024 DD/ TD/TT: Data Scientist: Jaida Martin DO IMG BI PROCEDURES Edited Res ult - Final * Hepatitis Panel, General (07/21/2023 8:47 AM EDT) Hepatitis A IgM Nonreactive Nonreactive [facility] Comment:IgM antibodies to ACOSTA V not detected; does not exclude earlyacute or recovered HAV infection. ~Hepatitis B Surface Antibody REACTIVE Nonreactive [facility] Comment:REACTIVE: > 11.99 mI U/mL Hepatitis B Core Antibody Nonreactive Nonreactive [facility] Hepatitis C Antibody Nonreactive Nonreactive [facility] Comment:Antibodies to HCV no t detected; does not exclude early acuteHCV infection. Hepatitis B Surface Ag Negative Negative [facility] 07/21/2023 8:47 AM EDT 07/21/2023 8:47 AM EDT us Generic External Data Provider LAB BLOOD ORDERAB LES Final Result [facility] [address] [place] [phone] * (ABNORMAL) Lipid Panel, Standard (12/12/2022 10:13 AM EDT) Triglycerides 112 <150 mg/dL [facility] Comment:Desirable Triglyceri de: less than 150 mg/dLBorderline High Triglyceride 150-199 mg/dLHigh Triglyceride: 200-499 mg/dLVery High Triglyceride: greater than or equal to 5OO mg/dL Cholesterol 91 <200 mg/dL [facility] Comment:Desirable Cholestero l: less than 200 mg/dLBorderline High Cholesterol: 200-239 mg/dLHigh Cholesterol: greater than 239 mg/dL LDL Cholesterol Calculated 31 <100 mg/dL [facility] Comment:Desirable LDL: less than 100 mg/dLNear Optimal/Above Optimal LDL: 110- 129 mg/dLBorderline High LDL: 130-159 mg/dLHigh LDL: 160-189 mg/dLVery High LDL: greater than or equal to 190 mg/dL HDL Cholesterol 38(L) >40 mg/dL [facility] Comment:Desirable HDL: great er than 40 mg/dL Note: This HDL assay may give artificially low results in patients with liver disease. Blood Venous blood specimen / Unknown 12/12/2022 10:13 AM EDT 12/12/2022 11:37 AM EDT Jaida Veronica DO LAB BLOOD ORDERABLES Final R esult Performing Organization Address City/[facility]/ZIP Co de Phone Number [facility] [address] [place] [address] [phone] * HIV 1/2 ANTIGEN/ANTIBODY,FOURTH GENERATION W/RFL (03/12/2020 8:49 AM EST) HIV-1/2 ANTIGEN AND ANTIBODIES, 4TH GENERATION W/ REFLEX NON-REACT NEFTALI NON-REACT NEFTALI [facility] Comment: HIV-1 antigen and HIV-1/HIV-2 antibodies were not detected. There is no laboratory evidence of HIV infection. ?? PLEASE NOTE: This information has been disclosed to you from records whose confidentiality may be protected by state law. ??If your state requires such protection, then the state law prohibits you from making any further disclosure of the information without the specific written consent of the person to whom it pertains, or as otherwise permitted by law. A general authorization for the release of medical or other information is NOT sufficient for this purpose. ? For additional information please refer to http://education.[employer]/faq/KAL839 (This link is being provided for informational/ educational purposes only.) ? The performance of this assay has not been clinically validated in patients less than 2 years old. ?? 03/12/2020 8:49 AM EST Jaida Veronica DO LAB BLOOD ORDERABLES Final R esult Performing Organization Address City/[facility]/ZIP Co de Phone Number [facility] [address] [phone], * Hm Pap Smear (12/21/2019) Pap Negative for intraephithelial lesion or malignancy Negative for intraephithelial lesion or malignancy, Other HPV Undetected us Historical Provider HEALTH MAINTENANCE Final Result * Colonoscopy (05/10/2018) Colonoscopy Normal Normal Comment:Repeat in 5 years us Historical Provider HEALTH MAINTENANCE Final Result from Last 3 Months or Most Recently Relevant to Health Maintenance Insurance [facility] C3 DENTAL-[facility] MEDICAID STAND ADULT Care Teams Crop Research Scientist Relationship Specialty Start Date End Date Jaida Martin DO [address] [place] [phone] PCP - General Family Medicine 03/02/18 Pamela Andres [employer]oker [employer] 01/14/24
--- OUTSIDE RECORDS SUMMARY | 2024-03-30 09:28 | XMS_ITS | Clinical Summary ---
Author Organization [facility] Address [address] [place] [address] Care Team Providers Care Brine Well Operator Name Role Phone Jaida Martin Primary Care Provider [phone] Allergies No known active allergies Medications cloNIDine [...] Type Department Care Team Description 03/23/2024 Telephone [facility] [address] [place] [phone] Nancy Petty MD 03/08/2024 9:00 AM EST Follow-Up [facility] [address] [place] [address] Nancy Petty MD Parkinsonism, unspecified Parkinsonism type [...] Info) Description 09/16/2024 8:30 AM EDT Follow-Up [facility] [address] [place] [address] Nancy Petty MD [address] [place] [address] Health Maintenance Due Date Last Done Comments [...] Additional history exists Procedures * Due to [place] state law, this organization might not be [...] Last 3 Months Results * Due to [place] [employer] law, this organization might not be sharing negative HIV tests. * TSH Reflex Free T4 (12/30/2023 9:51 AM EDT) TSH 2.410 0.280 - 3.890 uIU/mL 12/30/2023 11:25 AM EDT [facility] Comment: Females: 1st trimester ? 0.150-4.000 ??IU/mL 2nd trimester ?? 0.310-4.170 ?IU/mL 3rd trimester ?0.380-4.150 ?IU/mL Blood Structure of peripheral vein / Unknown Venipuncture / Unknown 12/30/2023 9:51 AM EDT 12/30/2023 10:39 AM EDT us Nancy Petty MD LAB BLOOD ORDERABLES Fi nal Result [facility] [address] [place] [address], [place] * (ABNORMAL) CBC Auto Differential (12/30/2023 9:51 AM EDT) WBC 12.6(H) 3.8 - 10.8 10*3/uL 12/30/2023 10:52 AM EDT [facility] RBC 4.47 3.80 - 5.10 10*6/uL 12/30/2023 10:52 AM EDT [facility] Hemoglobin 11.3(L) 11.7 - 15.5 g/dL 12/30/2023 10:52 AM EDT [facility] Hematocrit 38.7 35.0 - 45.0 % 12/30/2023 10:52 AM EDT [facility] MCV 86.6 80.0 - 100.0 fL 12/30/2023 10:52 AM EDT [facility] MCH 25.3(L) 27.0 - 33.0 pg 12/30/2023 10:52 AM EDT [facility] MCHC 29.2(L) 32.0 - 36.0 g/dL 12/30/2023 10:52 AM EDT [facility] RDW 15.9(H) 11.0 - 15.0 % 12/30/2023 10:52 AM EDT [facility] Platelets 306 140 - 400 10*3/uL 12/30/2023 10:52 AM EDT [facility] MPV 10.5 7.5 - 12.5 fL 12/30/2023 10:52 AM EDT [facility] Neutrophil % 62.5 % 12/30/2023 10:52 AM T [facility] Immature Grans % 0.3 0.0 - 0.9 % 12/30/2023 10:52 AM [facility] Lymphocyte % 30.8 % 12/30/2023 10:52 AM T [facility] Monocyte % 5.2 % 12/30/2023 10:52 AM EDT [facility] Eosinophil % 0.9 % 12/30/2023 10:52 AM EDT [facility] Basophil % 0.3 % 12/30/2023 10:52 AM [facility] Neutrophil # 7.88(H) 1.50 - 7.80 10*3/uL 12/30/2023 10:52 AM [facility] Immature Grans # 0.04(H) <=0.03 10*3/uL 12/30/2023 10:[facility] Lymphocyte # 3.90 0.85 - 3.90 10*3/uL 12/30/2023 10:52 AM [facility] Monocyte # 0.70 0.20 - 0.95 10*3/uL 12/30/2023 10:52 AM [facility] Eosinophil # 0.10 0.02 - 0.50 10*3/uL 12/30/2023 10:52 AM [facility] Basophil # <0.03 0.00 - 0.20 10*3/uL 12/30/2023 10:52 AM [facility] nRBC % 0.0 /100 WBCs 12/30/2023 10:52 AM [facility] nRBC # <0.01 <0.01 10*3/uL 12/30/2023 10:52 AM [facility] Blood Structure of peripheral vein / Unknown Venipuncture / Unknown 12/30/2023 9:51 AM EDT 12/30/2023 10:39 AM EDT Nancy Petty MD LAB BLOOD ORDERABLES Fi nal Result [facility] [address] [place] [address], [place] * (ABNORMAL) Vitamin B1 (Thiamine), Blood, LC/MS/MS (12/30/2023 9:51 AM EDT) Vitamin B1 (Thiamine), Blood, LCMSMS 190(H) 78 - 185 nmol/L 01/04/2024 5:28 AM EST [facility] (CLARA) Comment: Vitamin supplementation within 24 hours prior to blood draw may affect the accuracy of the results. This test was developed and its analytical performance characteristics have been determined by [employer] [place], [place]. It has not been cleared or approved by the U.S. Food and Drug Administration. This assay has been validated pursuant to the CLIA regulations and is used for clinical purposes. Blood Structure of peripheral vein / Unknown Venipuncture / Unknown 12/30/2023 9:51 AM EDT 12/30/2023 10:39 AM EDT Narrative [facility] (CLARA) - 01/04/2024 5:28 AM EST [facility] Received Date:[id number] Nancy Petty MD LAB BLOOD ORDERABLES Fi nal Result [facility] (CLARA) [address] [place], [place] , [place] * Vitamin D, 25-Hydroxy, Total, Immunoassay (12/30/2023 9:51 AM EDT) Calcidiol+ercalc idiol 61 30 - 100 ng/mL 12/30/2023 7:46 PM EDT [facility] Comment: Vitamin D Status ? 25-OH Vitamin D: Deficiency: ?<20 ng/mL Insufficiency: ? 20 - 29 ng/mL Optimal: ? > or = 30 ng/mL For 25-OH Vitamin D testing on patients on D2-supplementation and patients for whom quantitation of D2 and D3 fractions is required, the QuestAssureD(TM) 25-OH VIT D, (D2,D3), LC/MS/MS is recommended: order code [id number] (patients >2yrs). See Note 1 Note 1 For additional information, please refer to http://education.[employer]/faq/RGT811 (This link is being provided for informational/ educational purposes only.) Blood Structure of peripheral vein / Unknown Venipuncture / Unknown 12/30/2023 9:51 AM EDT 12/30/2023 10:39 AM EDT Narrative [facility] - 12/30/2023 7:46 PM EDT [facility] Received Date: us Nancy Petty MD LAB BLOOD ORDERABLES Fi nal Result [address], [place] [address], [place] [phone] [facility] [address], [place] [address], [place] [phone] * Folate (12/30/2023 9:51 AM EDT) Folate 4.9 4.8 - 24.2 ng/mL 12/30/2023 11:25 AM EDT [facility] Blood Structure of peripheral vein / Unknown Venipuncture / Unknown 12/30/2023 9:51 AM EDT 12/30/2023 10:39 AM EDT us Nancy Petty MD LAB BLOOD ORDERABLES Fi nal Result Performing Organization Address City/[facility]/ZIP Co de Phone Number [facility] [address] [place] [phone], * Vitamin B12 (12/30/2023 9:51 AM EDT) Vitamin B12 415 232 - 1,245 pg/mL 12/30/2023 11:25 AM EDT [facility] Blood Structure of peripheral vein / Unknown Venipuncture / Unknown 12/30/2023 9:51 AM EDT 12/30/2023 10:39 AM EDT Nancy Petty MD LAB BLOOD ORDERABLES Fi nal Result Performing Organization Address [facility] de Phone Number [facility] [address] [place] [phone], * (ABNORMAL) Comprehensive Metabolic Panel (12/30/2023 9:51 AM EDT) NA 140 135 - 145 mmol/L 12/30/2023 11:25 AM EDT [facility] K 3.6 3.5 - 5.3 mmol/L 12/30/2023 11:25 AM EDT [facility] Cl 102 98 - 107 mmol/L 12/30/2023 11:25 AM EDT [facility] CO2 27 22 - 32 mmol/L 12/30/2023 11:25 AM EDT [facility] Anion Gap 11 5 - 15 12/30/2023 11:25 AM EDT [facility] Glucose 171(H) 65 - 99 mg/dL 12/30/2023 11:25 AM EDT [facility] Creatinine 0.41(L) 0.50 - 1.20 mg/dL 12/30/2023 11:25 AM EDT [facility] Calcium 9.0 8.6 - 10.5 mg/dL 12/30/2023 11:25 AM [facility] Total Protein 7.6 6.0 - 8.0 g/dL 12/30/2023 11:25 AM [facility] Albumin 4.2 3.5 - 5.2 g/dL 12/30/2023 11:25 AM [facility] Bilirubin, Total 0.3 0.2 - 1.2 mg/dL 12/30/2023 11:25 AM [facility] Alkaline Phosphatase 152(H) 35 - 129 U/L 12/30/2023 11:25 AM [facility] AST 19 10 - 40 U/L 12/30/2023 11:25 AM [facility] ALT 12 10 - 40 U/L 12/30/2023 11:25 AM [facility] BUN 12 7 - 23 mg/dL 12/30/2023 11:25 AM [facility] eGFR >90 >=60 mL/min/1 .73m2 12/30/2023 11:25 AM [facility] Comment:The estimated glomer [...] 2.1 - 4.2 g/dL 12/30/2023 11:25 AM [facility] A/G Ratio 1.2(L) 1.5 - 3.0 12/30/2023 11:25 AM EDT [facility] Blood Structure of peripheral vein / Unknown Venipuncture / Unknown 12/30/2023 9:51 AM EDT 12/30/2023 10:39 AM EDT us Nancy Petty MD LAB BLOOD ORDERABLES Fi nal Result [facility] [address] [place] [address], [place] from Last 3 Months Insurance [employer] Care Teams Brine Well Operator Relationship Specialty Start Date End Date Jaida Martin [address] [place] [phone] PCP - General Family Medicine 01/20/23
--- OUTSIDE RECORDS SUMMARY | 2024-03-30 09:28 | XMS_ITS | Encounter Summary ---
Author Organization [employer] Address [address] [place] [address] Care Team Providers Care Drivematic Machine Operator Name Role Phone VeronicaJaida Primary Care Provider [phone] Encounter Details Date Type Department Care Team ([facility] st Contact Info) Description 01/16/2023 Abstract [facility] [address] [place] [address] Justine Huggins Social History Tobacco Use Types [...] Description 04/11/2024 10:00 AM EST Clinical Support [facility] [address] [place] [address] 08/01/2024 10:00 AM EDT Office Visit [facility] ADULT DENTAL [address] [place] [address] Jim, Amanda [address] [place] [address] documented as of this encounter Procedures Procedure Name Priority Date/Time Associated Diagnosis Comments COLONOSCOPY Routine 05/10/2018 documented in this encounter Results * Hm Colonoscopy (05/10/2018) Colonoscopy Normal Normal Comment:Repeat in 5 years us Historical Provider HEALTH MAINTENANCE Final Result documented in this encounter Visit Diagnoses Not on filedocumented in this encounter Care Teams Drivematic Machine Operator Relationship Specialty Start Date End Date Jaida Martin DO [address] [place] [address] PCP - General Family Medicine 03/02/18 Pamela Andres Survey DirectorLaundry Route Driver 01/14/24 documented as of this encounter
--- OUTSIDE RECORDS SUMMARY | 2024-03-30 09:28 | XMS_ITS | Encounter Summary ---
Author Organization [email or web address] Address [address] [place] [address] Care Team Providers Care Hydrographic Engineer Name Role Phone VeronicaJaida Primary Care Provider [phone] Encounter Details Date Type Department Care Team (Latest Contact Info) Description 03/17/2024 Travel Social History Tobacco Use Types Packs/Day Years [...] Description 04/11/2024 10:00 AM EST Clinical Support [facility]IC[facility] [address] [place] [address] 08/01/2024 10:00 AM EDT Office Visit [facility] ADULT DENTAL [address] [place] [address] Jim, Amanda [address] [place] [address] documented as of this encounter Visit Diagnoses Not on filedocumented in this encounter Additional Health Concerns Assessment Noted Time PHQ-9 Depression Total Score: 0 01/22/20 24 10:22 AM EST documented as of this encounter Care Teams Hydrographic Engineer Relationship Specialty Start Date End Date Jaida Martin DO [address] [place] [address] PCP - General Family Medicine 03/02/18 Pamela Andres Design AgentPrint Cutter 01/14/24 documented as of this encounter
--- OUTSIDE RECORDS SUMMARY | 2024-03-30 09:28 | XMS_ITS | Encounter Summary ---
Author Organization [employer] Address [address] [place] [address] Care Team Providers Care Branch Chief Name Role Phone Jaida Martin DO Primary Care Provider Reason for Visit * Reason Onset Date Comments Nurse Triage 12/22/2023 Encounter Details Date Type Department Care Team ([facility] Contact Info) Description 12/22/2023 Telephone [facility] [address] [place] [address] Jaida Martin DO [address] [place], [place] [phone] Nurse Triage Social History Tobacco Use Types Packs/Day Years [...] Answer Date Recorded Patient Health Questionnaire-9 Score 4 08/17/2023 Patient Health Questionnaire-9 Score 4 08/17/2023 Last PHQ-9: Questionnaire Data Not on file 0 08/17/2023 Housing Stability Answer Date Recorded What is [...] Date Recorded Patient Health Questionnaire-2 Score 0 08/17/2023 Comments Unknown Sex and Gender Information Value Date Recorded Sex Assigned at Female 12/30/2021 10:18 AM EDT Legal Sex Female 10:18 AM EDT Gender Identity Female 12/30/2021 10:18 AM EDT Sexual Orientation Straight 12/30/2021 10 :18 AM EDT documented as of this encounter Miscellaneous Notes * Telephone Encounter - Corina Snow RN - 12/22/2023 4:50 PM EDT [place]riage [place] [id number] Pt reports episode of shortness of breath while picking up object. BP today is 134/86. Pt is takingBP medication Diovan as prescribe. Pt reports no other symptoms at time of call and SOB was momentary. Pt is offered to come to [facility] but, reports no transportation. TSK apt with Dr. Bailey 12/29/23 at 900am. Pt agrees with disposition. Insurance is verified as active prior to booking. Protocol Used: Blood Pressure - High (Adult) Protocol-Based Disposition: See in Office or Video Visit within 2 Weeks Video visit not offered Positive Triage Question: * Systolic BP >= 130 OR Diastolic >= 80, and is taking BP medications * All higher-acuity triage questions were negative Care Advice Discussed: * High Blood Pressure * High Blood Pressure - Lifestyle Changes * Reasons To Call Back - Headache, blurred vision, difficulty talking, or difficulty walking occurs - Chest pain or difficulty breathing occurs - You want to go into the office for a blood pressure check - You become worse * Telephone Encounter - Favian Derek - 12/22/2023 4:25 PM EDT Symptom: High Blood Pressure - Caller Reports Outcome: Schedule a same-day appointment or talk to a nurse or provider today Reason: Caller denied all higher acuity questions Jordanian Speaker (accepted parts interpreter) documented in this encounter Plan of Treatment Upcoming Encounters Date Type Department Care Team (Late st Contact Info) Description 04/11/2024 10:00 AM EST Clinical Support [facility] [address] [place] [address] 08/01/2024 10:00 AM EDT Office Visit [facility] ADULT DENTAL [address] [place] [address] JimAmanda [address] [place] [address] documented as of this encounter Visit Diagnoses Not on filedocumented in this encounter Additional Health Concerns Assessment Noted Time PHQ-9 Depression Total Score: 4 08/17/19 24 12:18 PM EDT documented as of this encounter Care Teams Branch Chief Relationship Specialty Start Date End Date Jaida Martin DO [address] [place] [address] PCP - General Family Medicine 03/02/18 Pamela Andres Senior Principal ArchitectConfectionery Drops Machine Operator 01/14/24 documented as of this encounter
--- OUTSIDE RECORDS SUMMARY | 2024-03-30 09:28 | XMS_ITS | Encounter Summary ---
Author Organization [facility] Address [address] [facility] 7t [place] [address] Care Team Providers Care Water Inspector Name Role Phone Jaida Martin DO Primary Care Provider Encounter Details Date Type Department Care Team (Late st Contact Info) Description 03/12/2022 Orders Only [facility] [address] [place] [address] Jaida Martin DO [address] [place] [address] [phone] Vitamin B12 deficiency (Primary Dx) Social History Tobacco Use Types Packs/Day Years [...] Description 04/11/2024 10:00 AM EST Clinical Support [facility] [address] [place] [address] 08/01/2024 10:00 AM EDT Office Visit [facility] [address] [place], [place] [phone] Amanda Fernandez [address] [place] [address] documented as of this encounter Procedures Procedure Name Priority Date/Time Associated Diagnosis Comments CBC WITH AUTO DIFFERENTIAL Routine 03/13/2022 7:42 AM EST Vitamin B12 deficiency COMPREHENSIVE METABOLIC PANEL Routine 03/13/2022 7:42 AM EST Vitamin B12 deficiency GLUCOSE, WHOLE BLOOD Routine 03/13/2022 5:16 AM EST Vitamin B12 deficiency documented in this encounter Results * (ABNORMAL) Comprehensive Metabolic Panel (03/13/2022 7:42 AM EST) Sodium 146(H) 135 - 145 mmol/L [facility] Potassium 3.0(L) 3.3 - 5.1 mmol/L [facility] Chloride 107 96 - 108 mmol/L [facility] Carbon Dioxide 30(H) 22 - 29 mmol/L [facility] Anion Gap 12 12 - 20 [facility] Urea Nitrogen (BUN) 9 9 - 16 mg/dL [facility] Creatinine, Serum 0.54 0.5 - 1.4 mg/dL [facility] Creatinine Clr Calc Pharmacy 148.7 [facility] Comment:Provided height and weight: 162.56 cm,115.666 kg.eGFR (calculated from the MDRD study equation) and eCrCl(calculated from the Cockcroft-Gault equation) are based ondifferent parameters and may not yield comparable results.If eCrCl result is absurd, please check patient'sheight/weight. Estimated Glomerular Filt Rate >60 [facility] Comment:NOTE: For -Am erican individuals, multiply the result by 1.210.Chronic Kidney Disease: Estimated GFR < 60 mL/min/1.54r2Jjaijh Kidney Disease: Estimated GFR < 15 mL/min/1.73m2 Glucose 117(H) 60 - 115 mg/dL [facility] Calcium 9.1 8.4 - 10.2 mg/dL [facility] Bilirubin, Total 0.4 0.0 - 1.0 mg/dL [facility] Aspartate Amino Transferase 19 5 - 31 U/L [facility] Alanine Aminotransferase 10 0 - 31 U/L [facility] Total Protein 6.9 6.5 - 8.0 g/dL [facility] Albumin Level 3.8 3.5 - 5.0 g/dL [facility] Alkaline Phosphatase 126(H) 39 - 117 U/L [facility] 03/13/2022 7:42 AM EST 03/13/2022 7:44 AM EST us [facility] External Provider LAB BLO OD ORDERABLES Final Result [facility] [address] [place] [address] [phone] * (ABNORMAL) CBC auto differential (03/13/2022 7:42 AM EST) White Blood Count 10.3 4.8 - 10.8 X10*3/uL [facility] Red Blood Count 4.24 4.20 - 5.50 X10*6/uL [facility] Hemoglobin 11.0(L) 12.0 - 16.0 g/dl [facility] Hematocrit 36.1(L) 37.0 - 47.0 % [facility] Mean Corpuscular Volume 85.1 80.0 - 98.0 fL [facility] Mean Corpuscular Hemoglobin 25.9(L) 27.0 - 33.0 pg [facility] Mean Corpuscular HGB Conc 30.5(L) 31.0 - 35.0 g/dl [facility] Red Cell Distribution Width 15.9 11.0 - 16.0 % [facility] Platelet Count 266 160 - 400 X10*3/uL [facility] Mean Platelet Volume 10.1 9.4 - 12.3 fL [facility] Neutrophils Percent Auto 61.8 45 - 73 % [facility] Imm Gran Pct Auto 0.6(H) 0.0 - 0.4 % [facility] Lymphocytes Percent Auto 28.1 20 - 40 % [facility] Monocytes Percent Auto 7.3 2 - 11 % [facility] Eosinophils Percent Auto 1.8 0 - 4 % [facility] Basophils Percent Auto 0.4 0 - 2 % [facility] NRBC Pct Auto 0.0 0.0 - 0.2 /100WBC [facility] Neutrophils Absolute Auto 6.4 2.0 - 8.3 x10*3/uL [facility] Imm Gran Abs Auto 0.06(H) 0.00 - 0.03 X10*3/uL [facility] Lymphocytes Absolute Auto 2.9 1.2 - 4.9 X10*3/uL [facility] Monocytes Absolute Auto 0.8 0.1 - 1.2 X10*3/uL [facility] Eosinophils Absolute Auto 0.2 0.0 - 0.4 X10*3/uL [facility] Basophils Absolute Auto 0.0 0.0 - 0.2 X10*3/uL [facility] NRBC Abs Auto 0.000 0.0 - 0.012 X10*3/uL [facility] 03/13/2022 7:42 AM EST 03/13/2022 7:44 AM EST [facility] External Provider LAB BLO OD ORDERABLES Final Result Performing Organization Address [facility]/ZIP Co de Phone Number [facility] [address] [place] [address] [phone] * (ABNORMAL) GLUCOSE, WHOLE BLOOD (03/13/2022 5:16 AM EST) Glucose, Whole Blood 241(H) 60 - 115 mg/dL [facility] Comment:METER #: [id number] 1 03/13/2022 5:16 AM EST 03/13/2022 5:20 AM EST [facility] External Provider LAB BLO OD ORDERABLES Final Result Performing Organization Address City/[facility]/ZIP Co de Phone Number [facility] [address] [place] [address] [phone] documented in this encounter Visit Diagnoses Diagnosis Vitamin B12 deficiency- Primary Other B-complex deficiencies documented in this encounter Care Teams Water Inspector Relationship Specialty Start Date End Date Jaida Martin DO [address] [place] [phone] PCP - General Family Medicine 03/02/18 Pamela Andres Dispatcher MaintenanceQualitative Researcher 01/14/24 documented as of this encounter
--- OUTSIDE RECORDS SUMMARY | 2024-03-30 09:29 | XMS_ITS | Encounter Summary ---
Author Organization [facility] Address [address] [facility] 7t [place] [address] Care Team Providers Care Director Of Surgery Name Role Phone VeronicaJaida Primary Care Provider [phone] Encounter Details Date Type Department Care Team (Late Contact Info) Description 02/04/2022 Abstract [facility] [address] [place] [address] Dental, Provider, DDS Social History Tobacco Use Types Packs/Day Years [...] Clinical Support [facility] [address] [place] [address] 08/01/2024 10:00 AM EDT Office Visit [facility] [address] [place] [address] Amanda Fernandez [address] [place] [address] documented as of this encounter Procedures Procedure Name Priority Date/Time Associated Diagnosis Comments 18,19 PARTIAL DENTURE - RESIN Routine 02/04/2022 12:00 AM EST 3,4,5,2,12,15 PARTIAL DENTURE - RESIN Routine 02/04/2022 12:00 AM EST 8 PREFABRICATED POST AND CORE IN ADDITION TO CROWN Routine 02/04/2022 12:00 AM EST 9 PREFABRICATED POST AND CORE IN ADDITION TO CROWN Routine 02/04/2022 12:00 AM EST 9 CROWN - PORCELAIN/CERAMIC Routine 02/04/2022 12:00 AM EST 8 CROWN - PORCELAIN/CERAMIC Routine 02/04/2022 12:00 AM EST 10 ML COMPOSITE FILLING Routine 02/05/20 12:00 AM EST 16 DO COMPOSITE FILLING Routine 02/05/20 12:00 AM EST 31 NOA AMALGAM FILLING Routine 02/04/2022 12:00 AM EST 30 NOA AMALGAM FILLING Routine 02/04/2022 12:00 AM EST 29 O AMALGAM FILLING Routine 02/04/2022 12:00 AM EST 28 O AMALGAM FILLING Routine 02/04/2022 12:00 AM EST 21 O AMALGAM FILLING Routine 02/04/2022 12:00 AM EST 20 O AMALGAM FILLING Routine 02/04/2022 12:00 AM EST 32 EXTRACTION Routine 02/04/2022 12:00 AM EST 19 EXTRACTION Routine 02/04/2022 12:00 AM EST 18 EXTRACTION Routine 02/04/2022 12:00 AM EST 15 EXTRACTION Routine 02/04/2022 12:00 AM EST 13 EXTRACTION Routine 02/04/2022 12:00 AM EST 12 EXTRACTION Routine 02/04/2022 12:00 AM EST 5 EXTRACTION Routine 02/04/2022 12:00 AM EST 4 EXTRACTION Routine 02/04/2022 12:00 AM EST 3 EXTRACTION Routine 02/04/2022 12:00 AM EST 2 EXTRACTION Routine 02/04/2022 12:00 AM EST 1 EXTRACTION Routine 02/04/2022 12:00 AM EST 8 ROOT CANAL Routine 02/04/2022 12:00 AM EST 9 ROOT CANAL Routine 02/04/2022 12:00 AM EST documented in this encounter Visit Diagnoses Not on filedocumented in this encounter Care Teams Director Of Surgery Relationship Specialty Start Date End Date Jaida Martin DO [address] [place] [phone] PCP - General Family Medicine 03/02/18 Pamela Andres Ham StripperSolid Waste Division Supervisor 01/14/24 documented as of this encounter
--- OUTSIDE RECORDS SUMMARY | 2024-03-30 09:29 | XMS_ITS | Encounter Summary ---
Author Organization [facility] Address [address] [place] [address] Care Team Providers Care Smelter Charger Name Role Phone Jaida Martin Primary Care Provider [phone] Reason for Visit * Consultation (Urgent) - Authorized Specialty Diagnoses / Procedures Referred By Kendrick breaux Referred To Contact Neurology Diagnoses Tremor of both hands Jaida Martin [address] [place] [address] Phone: tel: fax: [facility] [address] [place] [phone] Phone: tel: fax: Referral ID Status Reason Start Date Expiration Date Visits Requested Visits Authorized [id number] Authorized Specialty Services Required 3 07/27/2024 6 6 Encounter Details Date Type Department Care Team ([facility] st Contact Info) Description 03/08/2024 9:00 AM EST Follow-Up [facility]rology [address] [place] [phone] Nacny Petty MD [address] [place] [phone] Parkinsonism, unspecified Parkinsonism type (HCC) (Primary Dx); [...] EST ASSESSMENT AND PLAN: 58 y.o. left-handed italian-speaking female with history of Binge eating disorder, [...] deficiency history Was seen by PCP at [facility] on 01/22/2024, I reviewed the note which [...] neurology clinic on 01/28/2023: 57 y.o. left-handed italian-speaking female with history of Binge eating disorder, [...] today who translates per their preference, declined blister rust eradicator. Parkinsonism, essential tremors, depression/anxiety/PTSD, LBP with occasional [...] multiple falls, some cognitive complaints, has a HOUSEHOLD MANAGER to help out. Other symptoms as listed below. She has been migraine free for some time. Impression is that patient has parkinsonism that is superimposed on top of her previous history of benign essential tremors (previously followed by [facility] neurology but that was years ago). While [...] these labs. Was seen by PCP at [facility] on 01/22/2024, I reviewed the note which [...] face, upper and lower extremities bilaterally. Coordination: [id number] mild right and left IK tremors No [...] D, (D2,D3), LC/MS/MS is recommended: order code 87867 (patients >2yrs). See Note 1 Note 1 For additional information, please refer to http://education.[employer] Research/faq/TYH448 (This link is being provided for informational/ educational purposes only.) Vitamin B1 (Thiamine), Blood, LCMS* 12/30/2023 190 (H) 78 - 185 nmol/L Final Vitamin supplementation within 24 hours prior to blood draw may affect the accuracy of the results. This test was developed and its analytical performance characteristics have been determined by [facility] [place]. It has not been cleared or [...] Info) Description 09/16/2024 8:30 AM EDT Follow-Up [facility] [address] [place] [phone] Nancy Petty MD [address] [place] [phone] documented as of this encounter Visit Diagnoses [...] persistent documented in this encounter Care Teams Smelter Charger Relationship Specialty Start Date End Date Jaida Martin [address] [place] [address] PCP - General Family Medicine 01/20/23 documented as of this encounter
--- OUTSIDE RECORDS SUMMARY | 2024-03-30 09:29 | XMS_ITS | Clinical Summary ---
Author Organization [facility] ity Address [address] [place] [address] Care Team Providers Care Banquet Supervisor Name Role Phone Unavailable Primary Care Provider [...]
--- OUTSIDE RECORDS SUMMARY | 2024-03-30 09:29 | XMS_ITS | Encounter Summary ---
Author Organization [facility] Address [address] [facility] 7t [place] [address] Care Team Providers Care Synthetic Chemist Name Role Phone Jaida Martin DO Primary Care Provider [phone] Encounter Details Date Type Department Care Team (Latest Contact Info) Description 03/12/2020 Abstract [facility] CONVERSIONS Dental, Provider, DDS Social History Tobacco Use [...] Upcoming Encounters Date Type Department Care Team ( st Contact Info) Description 04/11/2024 10:00 AM EST Clinical Support [facility] [address] [place] [address] 08/01/2024 10:00 AM EDT Office Visit [facility] ADULT [facility] [address] [place] [address] Jim, Amanda [address] [place] [address] documented as of this encounter Visit Diagnoses Not on filedocumented in this encounter Care Teams Synthetic Chemist Relationship Specialty Start Date End Date Jaida Martin DO [address] [place] [address] PCP - General Family Medicine 03/02/18 Pamela Andres Solar Site Assessment SpecialistNnps 01/14/24 documented as of this encounter
--- OUTSIDE RECORDS SUMMARY | 2024-03-30 09:29 | XMS_ITS | Encounter Summary ---
Author Organization [employer] Address [address] [facility] [address] 7t [place] [address] Care Team Providers Care Hospitalist Name Role Phone VeronicaJaida Primary Care Provider + [phone] Reason for Visit * Reason Comments Med Refill Encounter Details Date Type Department Care Team ([facility] st Contact Info) Description 05/14/2023 Refill [facility] [address] [place], [place] [phone] Suni Quintanilla MD [address] [place], [place] [phone] Social History Tobacco Use Types Packs/Day Years [...] Description 04/11/2024 10:00 AM EST Clinical Support [facility] [address] [place] [address] 08/01/2024 10:00 AM EDT Office Visit [facility] [address] [place] [address] Amanda Fernandez [address] [place] [address] documented as of this encounter Visit Diagnoses Not on filedocumented in this encounter Care Teams Hospitalist Relationship Specialty Start Date End Date Jaida Martin DO [address] [place] [address] PCP - General Family Medicine 03/02/18 Pamela Andres Victim AdvocateFurniture Polisher 01/14/24 documented as of this encounter
--- OUTSIDE RECORDS SUMMARY | 2024-03-30 09:29 | XMS_ITS | Encounter Summary ---
Author Organization [facility] Address [address] [place] [address] Care Team Providers Care Electrician Manager Name Role Phone Jaida Martin Primary Care Provider [phone] Encounter Details Date Type Department Care Team (Late Contact Info) Description 03/23/2024 Telephone [facility] Neurology [address] [place] [phone] Nancy Petty MD [address] [place] [phone] Social History Tobacco Use Types Packs/Day Years [...] Upcoming Encounters Date Type Department Care Team ([facility] Contact Info) Description 09/16/2024 8:30 AM EDT Follow-Up [facility] Neurology [address] [place] [address] Nancy Petty MD [address] [place] [phone] documented as of this encounter Visit Diagnoses Not on filedocumented in this encounter Care Teams Electrician Manager Relationship Specialty Start Date End Date Jaida Martin [address] [place] [phone] PCP - General Family Medicine 01/20/23 documented as of this encounter
--- OUTSIDE RECORDS SUMMARY | 2024-03-30 09:29 | XMS_ITS | Encounter Summary ---
Author Organization [facility] Address [address] [facility] 7t [place] [address] Care Team Providers Care [employer] Assistant Manager Name Role Phone Jaida Martin DO Primary Care Provider Encounter Details Date Type Department Care Team (Latest Contact Info) Description 06/04/2021 Abstract [facility] CONVERSIONS Dental, Provider, DDS Social History Tobacco [...] Description 04/11/2024 10:00 AM EST Clinical Support [facility] MEDICINE [address] [place] [address] 08/01/2024 10:00 AM EDT Office Visit [facility] ADULT DENTAL [address] [place] [address] Jim, Amanda [address] [place] [address] documented as of this encounter Visit Diagnoses Not on filedocumented in this encounter Care Teams [employer] Assistant Manager Relationship Specialty Start Date End Date Jaida Martin DO [address] [place] [address] PCP - General Family Medicine 03/02/18 Pamela Andres Survey Project ManagerConveyor Belt Operator 01/14/24 documented as of this encounter
[2024-03-30 09:51] VITALS: BP 147/92; PULSE 86; BMI 40.5
--- NOTE | 2024-03-30 09:51 | A.OFFVIS_ITS ---
Vital Signs 03/30/24 09:51 Height 5 ft 4 in Weight 235 lb 14.314 oz BMI 40.5 BP 147/92 H Blood Pressure Location Lt brachial Position Sitting Pulse 86 Intake Visit Reasons: Cirrhosis/Kasey PT Intake Note: Patient in office today in follow up of cirrhosis. CC: Patient reports constipation. Denies other GI symptoms today. Per patient she was not aware that she has cirrhosis. Software Implementation Specialist Required: Yes Software Implementation Specialist Language: Geographical Historian Services: Software Implementation Specialist Present Software Implementation Specialist Name: CHIDI Corbin Accompanied by: Self / Same As Patient Allergies No Known Allergies [No Known Allergies*] Allergy (Verified 03/30/24 09:55) HPI Comments Details: 58-year-old female with past medical history of morbid obesity, type 2 diabetes, hypertension, Parkinson's disease, bilateral knee osteoarthritis, sleep apnea, who presents to the office for follow-up of fatty liver. Previously [facility] patient. Seen with the help of rf technician Emerald. Patient reports remote history of heavy alcohol use up to 10-12 beers a day. Stopped drinking this heavily more than 10 years ago. Denies any previous or current history of IV drug use. No family history of liver disease. Has BMI of 40 and other metabolic factors including type 2 diabetes, hypertension, hyperlipidemia. She is on GLP 1 as well as a statin. Previous documentation with diagnosis listed as cirrhosis secondary to fatty liver disease, however on review of her data, no obvious evidence of cirrhosis at this point. Fib 4 0.68. Has normal platelets and liver function. Imaging with enlarged liver instead of shrunken liver, albeit lobular in appearance. Previous workup so far with normal alpha-1 antitrypsin, ceruloplasmin and negative GRACIA screen. Negative hep serologies. [facility] Medical History Asthma HTN (hypertension) Hyperlipidemia 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, uncontrolled [facility] (current) use of insulin Diabetic nephropathy associated with type 2 diabetes mellitus 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 due to insulin Hypothyroidism Obstructive sleep apnea on CPAP Anemia NAFLD (nonalcoholic fatty liver disease) Sacroiliac joint dysfunction Coarse tremors Bleeding hemorrhoids Dental crowns present Respiratory failure Paranoia (psychosis) Stress incontinence Insomnia Anxiety Scoliosis of thoracolumbar spine Morbid obesity Chronic pain syndrome Inappropriate sinus tachycardia GERD (gastroesophageal reflux disease) Spondylosis of lumbar region without myelopathy or radiculopathy Gastroparesis Hemorrhoids Migraine Patellofemoral arthritis Patella-femoral syndrome Lumbar spondylosis Fibromyalgia Tubular adenoma Family history of colon cancer Vitamin D deficiency Genu valgum Palpitations Chest pain Surgical History Status post hemorrhoidectomy History of hemorrhoidectomy (~09/09/22) History of surgery Hx of section H/O esophagogastroduodenoscopy History of colonoscopy History of arthroscopy of right knee History of bilateral carpal tunnel release History of bladder surgery History of tubal ligation Hx of tonsillectomy Family History Father Stomach cancer Mother Heart disease HTN (hypertension) Diabetes Son No problems noted. Paternal Aunt Stomach cancer Sister Stomach cancer Sister Uterine cancer Social History Household Members: Family Household Members Other:: adult son Housing: Apartment Are you a primary housekeeper caregiver to a significant other at home: No Do you presently have visiting nurse or other home services: Yes (DIKE SUPERVISOR daily) Alcohol intake: never Patient Tobacco Use Status: Never used Tobacco Second Hand Smoke Exposure: No service: No Current occupational status: disabled Current occupation: lt handed Sexual orientation: Straight/Heterosexual Gender identity: Female Female Reproductive History Menstrual Age of Menarche: 17 Review of Systems Const All systems reviewed & are unremarkable except as noted in HPI and below Physical Exam Vital Signs: Last Vital Signs Pulse 86 03/30/24 09:51 BP 147/92 H 03/30/24 09:51 BMI result Body Mass Index 40.5 No apparent distress Nonicteric Abdomen soft, nondistended Alert and oriented x3, normal gait, right-sided resting tremors Assessment & Plan Assessment & Plan (1) MetALD: Code(s): K76.0 - Fatty (change of) liver, not elsewhere classified; F10.90 - Alcohol use, unspecified, uncomplicated Category: Medical (2) Fatty liver: Code(s): K76.0 - Fatty (change of) liver, not elsewhere classified Category: Medical (3) Hyperlipidemia: Code(s): E78.5 - Hyperlipidemia, unspecified Category: Medical (4) Obstructive sleep apnea on CPAP: Code(s): G47.33 - Obstructive sleep apnea (adult) (pediatric); Z99.89 - Dependence on other enabling machines and devices Category: Medical (5) HTN (hypertension): Code(s): I10 - Essential (primary) hypertension Category: Medical Qualifiers: Hypertension type: essential hypertension Qualified Code(s): I10 - Essential (primary) hypertension (6) 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, uncontrolled: Code(s): E11.65 - Type 2 diabetes mellitus with hyperglycemia Category: Medical Qualifiers: Glycemic state: with hypoglycemia Coma presence: without coma Qualified Code(s): E11.649 - Type 2 diabetes mellitus with hypoglycemia without coma (7) History of colon polyps: Comment: Overdue for polyp surveillance -2018 recommend 5 Code(s): Z86.010 - Personal history of colon polyps Category: Medical (8) Primary osteoarthritis of left knee: Onset Date: ~12/07/19 Code(s): M17.12 - Unilateral primary osteoarthritis, left knee Category: Medical (9) History of alcohol use: Code(s): Z87.898 - Personal history of other specified conditions Category: Medical Plan Based on current assessment and likely has fatty liver disease from alcohol- related and nonalcohol related metabolic risk factors as outlined above. 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 In terms of metabolic factors, these remain uncontrolled recent previous lap, repeat labs from today pending. As aforementioned, current data does NOT suggest cirrhosis/fibrosis at this point, however given appearance on ultrasound/CT, will get FibroSURE and elastography to delineate further. We will also obtain labs to rule out other causes of chronic liver disease. Plan: -extensive counseling done for control of metabolic risk factors to prevent further progression of liver disease -patient counseled on at least 10% total body weight loss in the next 6 months -control of diabetes and hyperlipidemia as per PCP care -incorporate at least 150 minutes of moderate intensity exercise in a week -labs and elastography to be done before next visit -Will proceed with egd vs NSBB if meets Baveno criteria based on above. -otherwise, we will only need a colonoscopy this year for polyp surveillance (tubular adenoma in 2018) Follow-up in 3 months to review Orders: Orders US abdomen comp w elastography 3 Months K76.0 - Fatty (change of) liver, not elsewhere classified IRON PROFILE 3 Months K76.0 - Fatty (change of) liver, not elsewhere classified Transglutaminase IgA 3 Months K76.0 - Fatty (change of) liver, not elsewhere classified Liver Kidney Microsomal Ab 3 Months K76.0 - Fatty (change of) liver, not elsewhere classified Phosphatidylethanol, Blood 3 Months K76.0 - Fatty (change of) liver, not elsewhere classified Smooth Muscle Antibody 3 Months K76.0 - Fatty (change of) liver, not elsewhere classified HIV Ab/Ag 3 Months K76.0 - Fatty (change of) liver, not elsewhere classified Complete Blood Count no Diff 3 Months K76.0 - Fatty (change of) liver, not elsewhere classified Comprehensive Met. Panel 3 Months K76.0 - Fatty (change of) liver, not elsewhere classified Prothrombin Time INR 3 Months K76.0 - Fatty (change of) liver, not elsewhere classified Liver Fibrosis Pnl 3 Months K76.0 - Fatty (change of) liver, not elsewhere classified TSH reflex Free T4 3 Months K76.0 - Fatty (change of) liver, not elsewhere classified Ferritin 3 Months K76.0 - Fatty (change of) liver, not elsewhere classified Mitochondrial Antibody 3 Months K76.0 - Fatty (change of) liver, not elsewhere classified Coding Level of Care Code Est Pt Level 5 (55467) Complex EM visit Add On G2211 Diagnoses MetALD K76.0; F10.90 Fatty liver K76.0 Hyperlipidemia E78.5 Obstructive sleep apnea on CPAP G47.33; Z99.89 Essential hypertension I10 Hypertension type: essential hypertension Uncontrolled type 2 diabetes mellitus with hypoglycemia without coma E11.649 Glycemic state: with hypoglycemia Coma presence: without coma History of colon polyps Z86.010 Primary osteoarthritis of left knee M17.12 History of alcohol use Z87.898
== END 2024-03-30 10:56 | disposition home or self-care (01) ==
PROVIDERS: PCP Family Medicine; Visit Provider Internal Medicine
DX: K76.0 Fatty (change of) liver, not elsewhere classified (principal); F10.90 Alcohol use, unspecified, uncomplicated; Z86.0100 Personal history of colon polyps, unspecified; E78.5 Hyperlipidemia, unspecified; M17.12 Unilateral primary osteoarthritis, left knee; Z87.898 Personal history of other specified conditions
CPT/HCPCS: 99214

== ENCOUNTER 2024-04-05 10:03 | Outpatient (AMB) | payer MEDICAID, SELFPAY ==
--- NOTE | 2024-04-05 10:15 | A.OFFVIS_ITS ---
Vital Signs 04/05/24 10:26 Height 5 ft 4 in Weight 233 lb 11.04 oz BMI 40.1 BP 122/78 Blood Pressure Location Rt brachial Position Sitting Pulse 82 Pulse Source Pulse Oximeter Intake Visit Reasons: f/u Type 2 DM Intake Note: Patient presents today for a follow-up on Type 2 Diabetes Mellitus: Last Diabetic eye exam was on: 03/17/2024 Last Podiatry exam was on: Patient does not see a Steam Conditioner Operator Most recent HbA1c: 7.4%, 03/30/2024 Random Glucose- 156 mg/dL, Today Cane Furniture Maker Required: Yes Cane Furniture Maker Language: Shredded Filler Cigar Maker Machine Services: Cane Furniture Maker Present Cane Furniture Maker Name: BATSHEVA Rodriguez/VIVIAN NAVARRO Information Interpreted: clinical only Accompanied by: Son Allergies No Known Allergies [No Known Allergies*] Allergy (Verified 04/05/24 10:29) HPI Comments Details: Patient is a 58-year-old female with DM type 2 diagnosed 2009 who presents for management of diabetes. Last seen by Dr. Okeefe in January at [facility] time u500 was titrtf up to 50 units twice daily and Mounjaro was reduced to 7.5mg which she is tolerating well and losing weight on. She is here today with son Anders. A1C is 7.4% down from 7.8%. She had a significant low last night in the 50's despite eating a usual supper. Diabetes medications: Humulin U 500 50units before breakfast and 50 units before dinner metformin ER 500 mg 2 pills twice a day. Average 175 GMI 7.5% Glucose variability 26.1 Very high 5% high 40% target 55 0 lows 0 very low 1 low 3 nights ago to less than 70, self reprted low in the 50's last night Mounjaro 7.5 mg Qwkly on Fridays Diabetes education : saw Adela Reed CDE 02/18/24 Exercise: walking when weather permit, less in winter with cold. 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 Diabetic nephropathy associated with type 2 diabetes mellitus 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 due to insulin Hypothyroidism Obstructive sleep apnea on CPAP Anemia NAFLD (nonalcoholic fatty liver disease) Sacroiliac joint dysfunction Coarse tremors Bleeding hemorrhoids Dental crowns present Respiratory failure Paranoia (psychosis) Stress incontinence Insomnia Anxiety Scoliosis of thoracolumbar spine Morbid obesity Chronic pain syndrome Inappropriate sinus tachycardia GERD (gastroesophageal reflux disease) Spondylosis of lumbar region without myelopathy or radiculopathy Gastroparesis Hemorrhoids Migraine Patellofemoral arthritis Patella-femoral syndrome Lumbar spondylosis Fibromyalgia Tubular adenoma Family history of colon cancer Vitamin D deficiency Genu valgum Palpitations Chest pain Surgical History Status post hemorrhoidectomy History of hemorrhoidectomy (~09/09/22) History of surgery Hx of section H/O esophagogastroduodenoscopy History of colonoscopy History of arthroscopy of right knee History of bilateral carpal tunnel release History of bladder surgery History of tubal ligation Hx of tonsillectomy Family History Father Stomach cancer Mother Heart disease HTN (hypertension) Diabetes Son No problems noted. Paternal Aunt Stomach cancer Sister Stomach cancer Sister Uterine cancer Social History Household Members: Family Household Members Other:: adult son Housing: Apartment Are you a primary health care marketing manager to a significant other at home: No Do you presently have visiting nurse or other home services: Yes (CLOCK ASSEMBLER daily) Alcohol intake: never Patient Tobacco Use Status: Never used Tobacco Second Hand Smoke Exposure: No service: No Current occupational status: disabled Current occupation: lt handed Sexual orientation: Straight/Heterosexual Gender identity: Female Female Reproductive History Menstrual Age of Menarche: 17 Physical Exam Vital Signs: Last Vital Signs Pulse 82 04/05/24 10:26 BP 122/78 04/05/24 10:26 BMI result Body Mass Index 40.1 Const Other: Absence of Cushingoid features. Absence of acromegalic features. Neck exam reveals nl size thyroid about 15 gms. No thyroid nodules palpable. Heart S1 S2, Reg R/R. No M/R G. Skin exam reveals absence of vitiligo or acanthosis nigricans. Visual exam of foot performed. No ulcerations or open lesions. No inter digit maceration or fissuring. No onychomycosis, no callouses. Sensation intact to monofilament exam. Vibratory sensation is normal with 128 Hz tuning fork.unalbe to check cap refill due to nail tajik pulse positive Office Procedures Glucose Monitoring Details Details: see [facility] [id number] - Glucose monitoring, continuous-physician I&R Procedure code (CPT) selection complete Results Reviewed Results Reviewed: Laboratory Last Values Glucose (Clinic) 156 mg/dL (60-115) H 04/05/24 10:30 Assessment & Plan Assessment & Plan (1) 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, uncontrolled: Code(s): E11.65 - Type 2 diabetes mellitus with hyperglycemia Category: Medical Qualifiers: Glycemic state: with hypoglycemia Coma presence: without coma Qualified Code(s): E11.649 - Type 2 diabetes mellitus with hypoglycemia without coma Plan: 58-year-old type 2 diabetic with retinopathy with the an A1c of 7.4% on U500 insulin along with Mounjaro and metformin. Continue Mounjaro, 7.5 metformin a 1000 twice weekly U500 50 units in the morning 45 with supper She was advised of the potent nature of U500 and that it is known to cause significant lows. She was advised to she continues to lose weight portion control that she may need further reduction in her insulin. If she eats a airplane mechanic apprentice meal she should reduce her insulin in half. The patient had an opportunity to ask questions regarding treatment plan. The patient expressed understanding and agreement with the above treatment plan. The patient is aware they should contact our office by phone for worsening glucose readings or for any low blood sugars which may warrant a change in diabetes medication. Compliance is encouraged with medications and any followup testing/consults which may have been ordered. Orders: Orders AMB Glucose Monitoring Today E11.649 - Type 2 diabetes mellitus with hypoglycemia without coma Medications: Changed From insulin regular hum U-500 conc (Humulin R U-500 (Conc) Insulin Kwikpen) 45 units (0.09 mL) subcut BID 6 mL 4RF To insulin regular hum U-500 conc (Humulin R U-500 (Conc) Insulin Kwikpen) 50 units in the am 45 units in the pm subcutaneously 2 times a day; 30 days 6 mL 4RF Patient Instructions: Take 15 carb carbohydrate grams to treat a low sugar (3-4 glucose tablets, half a glass of juice or 15 carbohydrate grams of soft candy such as gummie snacks). Recheck your sugar in 15 minutes and re-treat again with 15 carbohydrate grams if low or still with symptoms. Do not drive a car or operate machinery if you do not know what your blood sugar is, if it is low or in excess of 300. Check your feet daily looking for any signs of infection, drainage, redness, ulceration and seek medical attention if this occurs. Break in shoes gradually and do not wear open-toed shoes or walk stocking footed or barefooted. The patient was counseled to achieve a target A1C of 7% (154 avg). Fasting blood sugars should be 90-130 in the morning and less than 180 two hours after meals. Reviewed the relationship between poor diabetic control and the development of complications. Coding Level of Care Code Est Pt Level 4 (39581) Complex EM visit Add On G2211 Diagnoses Uncontrolled type 2 diabetes mellitus with hypoglycemia without coma E11.649 Glycemic state: with hypoglycemia Coma presence: without coma CPT Codes Details - CPT: 88308 - Glucose monitoring, continuous-physician I&R ([id number]) Time Spent (min) 30 Comment Time spent reviewing labs/provider notes, glucose,sensor reports, face to face, chart doc
[2024-04-05 10:26] VITALS: BP 122/78; PULSE 82; BMI 40.1
[2024-04-05 10:36] LABS: Glucose, Whole Blood 156 mg/dL (60-115)
--- NOTE | 2024-04-05 10:40 | A.OFFVIS_ITS ---
Vital Signs 04/05/24 10:26 04/05/24 10:41 Height 5 ft 4 in Weight 233 lb 11.04 oz BMI 40.1 40.1 BP 122/78 Blood Pressure Location Rt brachial Position Sitting Pulse 82 Pulse Source Pulse Oximeter Intake Visit Reasons: f/u Type 2 DM Allergies No Known Allergies [No Known Allergies*] Allergy (Verified 04/05/24 10:29) HPI Comments Details: Patient is a 58-year-old female with DM type 2 diagnosed 2009 who presents for management of diabetes. Last seen by Dr. Elias 01/04/24 Here today with son Anders Diabetes medications: Humulin U 500 40 before breakfast and 40 units with dinner, ( increased from 35 BID yesterday after rmessaging us ) metformin ER 500 mg 2 pills twice a day. . Mounjaro 5 mg Qwkly on Fridays ( Mounjaro was reduced from 10 mg to 5 mg due to patient complaint of vomiting. patient reports she only took 1 dose of Mounjaro 10 mg, in vomited in the afternoon. Patient did not recall if she had ever taken Mounjaro 7.5 mg) Diabetes education : saw Adela AMOS 02/18/24 Exercise: walking when weather permit, less in winter with cold. Past medical history: HLD, HTN, gastroparesis Micro and macrovascular complications: has retinopathy, Last Diabetic eye exam: 03/2023, next exam 17 Mar 2024 Last Podiatry Visit: Doesn't have one, no symtpmtoms of neuropathy No macrovascular complications FIB 4 score with labs 12/28/23: 0.68, advanced fibrosis excluded [facility] Medical History Asthma HTN (hypertension) Hyperlipidemia 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, uncontrolled [facility] (current) use of insulin Diabetic nephropathy associated with type 2 diabetes mellitus 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 due to insulin Hypothyroidism Obstructive sleep apnea on CPAP Anemia NAFLD (nonalcoholic fatty liver disease) Sacroiliac joint dysfunction Coarse tremors Bleeding hemorrhoids Dental crowns present Respiratory failure Paranoia (psychosis) Stress incontinence Insomnia Anxiety Scoliosis of thoracolumbar spine Morbid obesity Chronic pain syndrome Inappropriate sinus tachycardia GERD (gastroesophageal reflux disease) Spondylosis of lumbar region without myelopathy or radiculopathy Gastroparesis Hemorrhoids Migraine Patellofemoral arthritis Patella-femoral syndrome Lumbar spondylosis Fibromyalgia Tubular adenoma Family history of colon cancer Vitamin D deficiency Genu valgum Palpitations Chest pain Surgical History Status post hemorrhoidectomy History of hemorrhoidectomy (~09/09/22) History of surgery Hx of section H/O esophagogastroduodenoscopy History of colonoscopy History of arthroscopy of right knee History of bilateral carpal tunnel release History of bladder surgery History of tubal ligation Hx of tonsillectomy Family History Father Stomach cancer Mother Heart disease HTN (hypertension) Diabetes Son No problems noted. Paternal Aunt Stomach cancer Sister Stomach cancer Sister Uterine cancer Social History Household Members: Family Household Members Other:: adult son Housing: Apartment Are you a primary direct support professional caregiver to a significant other at home: No Do you presently have visiting nurse or other home services: Yes (RFID STRATEGIST daily) Alcohol intake: never Patient Tobacco Use Status: Never used Tobacco Second Hand Smoke Exposure: No service: No Current occupational status: disabled Current occupation: lt handed Sexual orientation: Straight/Heterosexual Gender identity: Female Female Reproductive History Menstrual Age of Menarche: 17 Physical Exam Vital Signs: Last Vital Signs Pulse 82 04/05/24 10:26 BP 122/78 04/05/24 10:26 BMI result Body Mass Index 40.1 Quality Reporting (2019) Adult ([facility] 138/2/22/69) Body Mass Index: 40.1 Results Reviewed Results Reviewed: Laboratory Last Values Glucose (Clinic) 156 mg/dL (60-115) H 04/05/24 10:30 Coding
--- OUTSIDE RECORDS SUMMARY | 2024-04-05 10:46 | XMS_ITS | Encounter Summary ---
Author Organization [employer] Address [address] [place] [address] Care Team Providers Care Psychologist Military Personnel Name Role Phone Jaida Martin DO Primary Care Provider Reason for Visit * Reason Onset Date Comments Durable Medical Equipment 10/27/2023 Encounter Details Date Type Department Care Team ([facility] [address] Contact Info) Description 10/27/2023 Telephone [facility] [address] [place] [address] Jaida Martin DO [address], [place] [phone] Durable Medical Equipment Social History Tobacco Use [...] seat bolt on. Please contact pt at [phone] documented in this encounter Plan of Treatment Upcoming Encounters Date Type Department Care Team (Late st Contact Info) Description 04/20/2024 9:30 AM EST Clinical Support [facility] [address] [place] [address] 08/01/2024 10:00 AM EDT Office Visit [facility] [address] [place] [address] Amanda Fernandez [address] [place] [address] documented as of this encounter Visit Diagnoses Not on filedocumented in this encounter Additional Health Concerns Assessment Noted Time PHQ-9 Depression Total Score: 4 08/17/19 24 12:18 PM EDT documented as of this encounter Care Teams Psychologist Military Personnel Relationship Specialty Start Date End Date Jaida Martin DO [address] [place] [id number] PCP - General Family Medicine 03/02/18 Pamela Andres [place] Rug SetterReading Interventionist 01/14/24 documented as of this encounter
--- OUTSIDE RECORDS SUMMARY | 2024-04-05 10:46 | XMS_ITS | Encounter Summary ---
Author Organization [email or web address] Address [address] [facility] [address] [place] [address] Care Team Providers Care Guest Experience Representative Name Role Phone Jaida Martin DO Primary Care Provider Reason for Visit * Reason Onset Date Comments Nurse Triage 12/22/2023 Encounter Details Date Type Department Care Team ([facility] Contact Info) Description 12/22/2023 Telephone [facility] [address] [place], [place] [phone] Jaida Martin DO [address] [place], [place] [phone] Nurse Triage Social History Tobacco Use Types [...] 12/22/2023 4:50 PM EDT Triage call with [employer] [id number] Pt reports episode of shortness of breath while picking up object. BP today is 134/86. Pt is takingBP medication Diovan as prescribe. Pt reports no other symptoms at time of call and SOB was momentary. Pt is offered to come to [facility] but, reports no transportation. TSK apt with [...] Reason: Caller denied all higher acuity questions Salvadorean Speaker (accepted spanish interpreter/translator) documented in this encounter Plan of Treatment Upcoming Encounters Date Type Department Care Team (Late st Contact Info) Description 04/20/2024 9:30 AM EST Clinical Support [facility] [address] [place] [address] 08/01/2024 10:00 AM EDT Office Visit [facility] ADULT DENTAL [address] [place] [address] Amanda Fernandez [address] [place] [address] documented as of this encounter Visit Diagnoses Not on filedocumented in this encounter Additional Health Concerns Assessment Noted Time PHQ-9 Depression Total Score: 4 08/17/19 24 12:18 PM EDT documented as of this encounter Care Teams Guest Experience Representative Relationship Specialty Start Date End Date Jaida Martin DO [address] [place] [address] PCP - General Family Medicine 03/02/18 Pamela Andres Christmas Tree Farm ManagerCivil Engineer 01/14/24 documented as of this encounter
--- OUTSIDE RECORDS SUMMARY | 2024-04-05 10:46 | XMS_ITS | Encounter Summary ---
Author Organization [employer] Address [address] [facility] [address] 7[address] [place] [address] Care Team Providers Care Cemetery Vault Installer Name Role Phone VeronicaJaida Primary Care Provider Encounter Details Date Type [...] Description 04/20/2024 9:30 AM EST Clinical Support [facility] [address] [place] [address] 08/01/2024 10:00 AM EDT Office Visit [facility] ADULT DENTAL [address] [place] [address] Jim, Amanda [address] [place] [address] documented as of this encounter Visit Diagnoses Not on filedocumented in this encounter Additional Health Concerns Assessment Noted Time PHQ-9 Depression Total Score: 0 01/22/20 24 10:22 AM EST documented as of this encounter Care Teams Cemetery Vault Installer Relationship Specialty Start Date End Date Jaida Martin DO [address] [place] [address] PCP - General Family Medicine 03/02/18 Pamela Andres Practical Nursing TeacherEntry Level Receptionist 01/14/24 documented as of this encounter
--- OUTSIDE RECORDS SUMMARY | 2024-04-05 10:46 | XMS_ITS | Encounter Summary ---
Author Organization [facility] Address [address] [facility] 7t [place] [address] Care Team Providers Care Director Of Accreditation Name Role Phone Jaida Martin DO Primary Care Provider Reason for Visit * Reason Onset Date Comments requesting a call back 03/07/2022 Encounter Details Date Type Department Care Team (Late Contact Info) Description 03/07/2022 Telephone [facility] [address] [place] [address] Jaida Martin DO [address] [place] [phone] requesting a call back Social History Tobacco [...] Miscellaneous Notes * Telephone Encounter - Trevin Lim - 03/07/2022 9:30 AM EST Tc from pt returning call. Pt requesting a call back Please contact pt at [phone] documented in this encounter Plan of Treatment Upcoming Encounters Date Type Department Care Team (Late Contact Info) Description 04/20/2024 9:30 AM EST Clinical Support [facility] [address] [place] [phone] 08/01/2024 10:00 AM EDT Office Visit [facility] ADULT DENTAL [address] [place], [place] [phone] Amanda Fernandez [address] [place] [address] documented as of this encounter Visit Diagnoses Not on filedocumented in this encounter Care Teams Director Of Accreditation Relationship Specialty Start Date End Date Jaida Martin DO [address] [place] [address] PCP - General Family Medicine 03/02/18 Pamela Andres Blintze RollerScientific Illustrator 01/14/24 documented as of this encounter
--- OUTSIDE RECORDS SUMMARY | 2024-04-05 10:46 | XMS_ITS | Encounter Summary ---
Author Organization [facility] Address [address] [facility] 7t [place] [address] Care Team Providers Care Boxing Instructor Name Role Phone Jaida Martin DO Primary Care Provider Encounter Details Date Type Department Care Team (Late st Contact Info) Description 03/12/2022 Orders Only [facility] [address] [place] [address] Jaida Martin DO [address] [place] [address] [phone] Vitamin B12 deficiency (Primary Dx) Social History [...] Description 04/20/2024 9:30 AM EST Clinical Support [facility] [address] [place] [address] 08/01/2024 10:00 AM EDT Office Visit [facility] ADULT DENTAL [address] [place], [place] [phone] Amanda Fernandez [address] [place] [address] documented as of this encounter Procedures Procedure [...] EST) Sodium 146(H) 135 - 145 mmol/L [facility] Potassium 3.0(L) 3.3 - 5.1 mmol/L [facility] Chloride 107 96 - 108 mmol/L [facility] Carbon Dioxide 30(H) 22 - 29 mmol/L [facility] Anion Gap 12 12 - 20 [facility] Urea Nitrogen (BUN) 9 9 - 16 mg/dL [facility] Creatinine, Serum 0.54 0.5 - 1.4 mg/dL [facility] Creatinine Clr Calc Pharmacy 148.7 [facility] Comment:Provided height and weight: 162.56 cm,115.666 kg.eGFR (calculated from the MDRD study equation) and eCrCl(calculated from the Cockcroft-Gault equation) are based ondifferent parameters and may not yield comparable results.If eCrCl result is absurd, please check patient'sheight/weight. Estimated Glomerular Filt Rate >60 [facility] Comment:NOTE: For -Am erican individuals, multiply the result by 1.210.Chronic Kidney Disease: Estimated GFR < 60 mL/min/1.77x7Aruorw Kidney Disease: Estimated GFR < 15 mL/min/1.73m2 Glucose 117(H) 60 - 115 mg/dL [facility] Calcium 9.1 8.4 - 10.2 mg/dL [facility] Bilirubin, Total 0.4 0.0 - 1.0 mg/dL [facility] Aspartate Amino Transferase 19 5 - 31 U/L [facility] Alanine Aminotransferase 10 0 - 31 U/L [facility] Total Protein 6.9 6.5 - 8.0 g/dL [facility] Albumin Level 3.8 3.5 - 5.0 g/dL [facility] Alkaline Phosphatase 126(H) 39 - 117 U/L [facility] 03/13/2022 7:42 AM EST 03/13/2022 7:44 AM EST us [facility] External Provider LAB BLO OD ORDERABLES Final Result [facility] [address] [place] [address] [phone] * (ABNORMAL) CBC auto differential (03/13/2022 7:42 AM EST) White Blood Count 10.3 4.8 - 10.8 X10*3/uL [facility] Red Blood Count 4.24 4.20 - 5.50 X10*6/uL [facility] Hemoglobin 11.0(L) 12.0 - 16.0 g/dl [facility] Hematocrit 36.1(L) 37.0 - 47.0 % [facility] Mean Corpuscular Volume 85.1 80.0 - 98.0 fL [facility] Mean Corpuscular Hemoglobin 25.9(L) 27.0 - 33.0 pg [facility] Mean Corpuscular HGB Conc 30.5(L) 31.0 - 35.0 g/dl [facility] Red Cell Distribution Width 15.9 11.0 - 16.0 % [facility] Platelet Count 266 160 - 400 X10*3/uL [facility] Mean Platelet Volume 10.1 9.4 - 12.3 fL [facility] Neutrophils Percent Auto 61.8 45 - 73 % [facility] Imm Gran Pct Auto 0.6(H) 0.0 - 0.4 % [facility] Lymphocytes Percent Auto 28.1 20 - 40 % [facility] Monocytes Percent Auto 7.3 2 - 11 % [facility] Eosinophils Percent Auto 1.8 0 - 4 % [facility] Basophils Percent Auto 0.4 0 - 2 % [facility] NRBC Pct Auto 0.0 0.0 - 0.2 /100WBC [facility] Neutrophils Absolute Auto 6.4 2.0 - 8.3 x10*3/uL [facility] Imm Gran Abs Auto 0.06(H) 0.00 - 0.03 X10*3/uL [facility] Lymphocytes Absolute Auto 2.9 1.2 - 4.9 X10*3/uL [facility] Monocytes Absolute Auto 0.8 0.1 - 1.2 X10*3/uL [facility] Eosinophils Absolute Auto 0.2 0.0 - 0.4 X10*3/uL [facility] Basophils Absolute Auto 0.0 0.0 - 0.2 X10*3/uL [facility] NRBC Abs Auto 0.000 0.0 - 0.012 X10*3/uL [facility] 03/13/2022 7:42 AM EST 03/13/2022 7:44 AM EST [facility] External Provider LAB BLO OD ORDERABLES Final Result Performing Organization Address [facility]/ZIP Co de Phone Number [facility] [address] [place] [address] [phone] * (ABNORMAL) GLUCOSE, WHOLE BLOOD (03/13/2022 5:16 AM EST) Glucose, Whole Blood 241(H) 60 - 115 mg/dL [facility] Comment:METER #: [id number] 1 03/13/2022 5:16 AM EST 03/13/2022 5:20 AM EST [facility] External Provider LAB BLO OD ORDERABLES Final Result Performing Organization Address City/[facility]/ZIP Co de Phone Number [facility] [address] [place] [address] [phone] documented in this encounter Visit Diagnoses Diagnosis Vitamin B12 deficiency- Primary Other B-complex deficiencies documented in this encounter Care Teams Boxing Instructor Relationship Specialty Start Date End Date Jaida Martin DO [address] [place] [phone] PCP - General Family Medicine 03/02/18 Pamela Andres Extractor OperatorShelving Supervisor 01/14/24 documented as of this encounter
--- OUTSIDE RECORDS SUMMARY | 2024-04-05 10:46 | XMS_ITS | Encounter Summary ---
Author Organization [employer] [facility] Address [address] [facility] 7t [place] [address] Care Team Providers Care Regional Transportation Manager Name Role Phone Sheila Martinfer Primary Care Provider [phone] Encounter Details Date Type Department Care Team (Late Contact Info) Description 03/14/2022 Orders Only [facility] [address] [place] [address] Stephanie Apodaca LPN Social History Tobacco Use [...] Description 04/20/2024 9:30 AM EST Clinical Support [facility] [address] [place], [place] [phone] 08/01/2024 10:00 AM EDT Office Visit [facility] ADULT DENTAL [address] [place] [address] Amanda Fernandez [address] [place] [address] documented as of this encounter Visit Diagnoses Not on filedocumented in this encounter Care Teams Regional Transportation Manager Relationship Specialty Start Date End Date Jurcsak, Jaida, DO [address] [place] [address] PCP - General Family Medicine 03/02/18 Pamela Andres Garage HandSystem Technologist 01/14/24 documented as of this encounter
--- OUTSIDE RECORDS SUMMARY | 2024-04-05 10:46 | XMS_ITS | Encounter Summary ---
Author Organization [email or web address] Address [address] [facility] [address] [place] [address] Care Team Providers Care Mail Handlers Supervisor Name Role Phone VeronciaJaida Primary Care Provider + [phone] Reason for Visit * Reason Comments Diabetic Eye Exam Encounter Details Date Type Department Care Team (Latest Contact Info) Description 03/17/2024 9:30 AM EST Office Visit [facility] [address] [place] [address] Ta, Soha, OD [address] [place] [address] Type 2 diabetes mellitus without ophthalmic manifestations [...] Description 04/20/2024 9:30 AM EST Clinical Support [facility] [address] [place] [address] 08/01/2024 10:00 AM EDT Office Visit [facility] ADULT DENTAL [address] [place] [address] Jim, Amanda [address] [place] [address] documented as of this encounter Visit Diagnoses Diagnosis Type 2 diabetes mellitus without ophthalmic manifestations (CMS/HCC)- Primary Dry eyes, bilateral Combined forms of age-related cataract of both eyes Presbyopia documented in this encounter Additional Health Concerns Assessment Noted Time PHQ-9 Depression Total Score: 0 01/22/20 24 10:22 AM EST documented as of this encounter Care Teams Mail Handlers Supervisor Relationship Specialty Start Date End Date Jaida Martin DO [address] [place] [phone] PCP - General Family Medicine 03/02/18 Pamela Andres Spot WasherBoard Liner Operator 01/14/24 documented as of this encounter
--- OUTSIDE RECORDS SUMMARY | 2024-04-05 10:46 | XMS_ITS | Encounter Summary ---
Author Organization [employer] Address [address] [facility] [address]t [place] [address] Care Team Providers Care Grocery Worker Name Role Phone Jaida Martin DO Primary Care Provider [phone] Reason for Visit * Reason Comments Med Refill Encounter Details Date Type Department Care Team ([facility] st Contact Info) Description 03/29/2024 Refill [facility] [address] [place] [address] Jaida Martin DO [address] [place], [place] [phone] Anemia, unspecified type Social History Tobacco Use [...] Description 04/20/2024 9:30 AM EST Clinical Support [facility] [address] [place] [address] 08/01/2024 10:00 AM EDT Office Visit [facility] ADULT DENTAL [address] [place] [address] Jim, Amanda [address] [place] [address] documented as of this encounter Visit Diagnoses Diagnosis Anemia, unspecified type documented in this encounter Additional Health Concerns Assessment Noted Time PHQ-9 Depression Total Score: 0 01/22/20 10:22 AM EST documented as of this encounter Care Teams Grocery Worker Relationship Specialty Start Date End Date Jaida Martin DO [address] [place] [address] PCP - General Family Medicine 03/02/18 Pamela Andres Spray MakerAbrading Machine Tender 01/14/24 documented as of this encounter
--- OUTSIDE RECORDS SUMMARY | 2024-04-05 10:47 | XMS_ITS | Clinical Summary ---
Author Organization [facility] Address [address] [place] [address] Care Team Providers Care Mental Health Technician Name Role Phone Jaida Martin Primary Care Provider [phone] Allergies No known active allergies Medications cloNIDine [...] Type Department Care Team Description 03/23/2024 Telephone [facility] [address] [place] [phone] Nancy Petty MD 03/08/2024 9:00 AM EST Follow-[facility] [address] [place] [address] Nancy Petty MD Parkinsonism, unspecified Parkinsonism type [...] Info) Description 09/16/2024 8:30 AM EDT [facility] [address] [place] [address] Nancy Petty MD [address] [place] [address] Health Maintenance Due Date Last Done Comments [...] Additional history exists Procedures * Due to [place] [employer] law, this organization might not be sharing negative HIV tests. Procedure Name Priority Date/Time Associated Diagnosis Comments COMPREHENSIVE METABOLIC PANEL Routine 12/30/2023 9:51 AM EDT Intention tremor from Last 3 Months or Most Recently Relevant to Health Maintenance Results * Due to [place] [employer] law, this organization might not be sharing negative HIV tests. * (ABNORMAL) Comprehensive Metabolic Panel (12/30/2023 9:51 AM EDT) NA 140 135 - 145 mmol/L 12/30/2023 11:25 AM EDT [facility] K 3.6 3.5 - 5.3 mmol/L 12/30/2023 11:25 AM EDT [facility] Cl 102 98 - 107 mmol/L 12/30/2023 11:25 AM EDT [facility] CO2 27 22 - 32 mmol/L 12/30/2023 11:25 AM EDT [facility] Anion Gap 11 5 - 15 12/30/2023 11:25 AM EDT [facility] Glucose 171(H) 65 - 99 mg/dL 12/30/2023 11:25 AM EDT [facility] Creatinine 0.41(L) 0.50 - 1.20 mg/dL 12/30/2023 11:25 AM EDT [facility] Calcium 9.0 8.6 - 10.5 mg/dL 12/30/2023 11:25 AM EDT [facility] Total Protein 7.6 6.0 - 8.0 g/dL 12/30/2023 11:25 AM EDT [facility] Albumin 4.2 3.5 - 5.2 g/dL 12/30/2023 11:25 AM EDT [facility] Bilirubin, Total 0.3 0.2 - 1.2 mg/dL 12/30/2023 11:25 AM EDT [facility] Alkaline Phosphatase 152(H) 35 - 129 U/L 12/30/2023 11:25 AM EDT [facility] AST 19 10 - 40 U/L 12/30/2023 11:25 AM EDT [facility] ALT 12 10 - 40 U/L 12/30/2023 11:25 AM EDT [facility] BUN 12 7 - 23 mg/dL 12/30/2023 11:25 AM EDT [facility] eGFR >90 >=60 mL/min/1 .73m2 12/30/2023 11:25 AM EDT [facility] Comment:The estimated glomer ular [...] 2.1 - 4.2 g/dL 12/30/2023 11:25 AM EDT [facility] A/G Ratio 1.2(L) 1.5 - 3.0 12/30/2023 11:25 AM EDT [facility] Blood Structure of peripheral vein / Unknown Venipuncture / Unknown 12/30/2023 9:51 AM EDT 12/30/2023 10:39 AM EDT us Nancy Petty MD LAB BLOOD ORDERABLES Fi nal Result [facility] [address] [place] [address], from Last 3 Months or Most Recently Relevant to Health Maintenance Insurance [facility] [id number] Care Teams Mental Health Technician Relationship Specialty Start Date End Date Jaida Martin [address] [place] [phone] PCP - General Family Medicine 01/20/23
--- OUTSIDE RECORDS SUMMARY | 2024-04-05 10:47 | XMS_ITS | Encounter Summary ---
Author Organization [facility] Address [address] [facility] 7t [place] [address] Care Team Providers Care Power Crane Operator Name Role Phone VeronicaJaida Primary Care Provider [phone] Encounter Details Date Type Department Care Team (Late Contact Info) Description 02/04/2022 Abstract [facility] ADULT DENTAL [address] [place] [address] Dental, Provider, DDS Social History Tobacco Use [...] Description 04/20/2024 9:30 AM EST Clinical Support [facility] [address] [place] [address] 08/01/2024 10:00 AM EDT Office Visit [facility] ADULT [facility]ENT[facility] [address] [place] [address] Amanda Fernandez [address] [place] [address] documented as of this encounter Procedures Procedure [...] on filedocumented in this encounter Care Teams Power Crane Operator Relationship Specialty Start Date End Date Jaida Martin DO [address] [place] [phone] PCP - General Family Medicine 03/02/18 Pamela Andres Well Services OperatorFirewall Engineer 01/14/24 documented as of this encounter
--- OUTSIDE RECORDS SUMMARY | 2024-04-05 10:47 | XMS_ITS | Encounter Summary ---
Author Organization [employer] Address [address] [place] [address] Care Team Providers Care Medical Representative Name Role Phone Sheila Martinfer Primary Care Provider [phone] Encounter Details Date Type Department Care Team ([facility] Contact Info) Description 03/30/2024 Orders Only GENERIC EXTERNAL DATA DEPARTMENT Provider, Generic External Data Social History Tobacco Use Types Packs/Day Years [...] 9:30 AM EST Clinical Support [facility] MEDICINE [address] [place] [address] 08/01/2024 10:00 AM EDT Office Visit [facility] ADULT DENTAL [address] [place] [address] Jim, Amanda [address] [place] [address] documented as of this encounter Procedures Procedure Name Priority Date/Time Associated Diagnosis Comments BASIC METABOLIC PANEL, FASTING Routine 03/30/2024 8:38 AM EST DIRECT LDL Routine 03/30/2024 8:38 AM EST HEMOGLOBIN A1C Routine 03/30/2024 8:38 AM EST VITAMIN B12 Routine 03/30/2024 8:38 AM EST LIPID PANEL, STANDARD Routine 03/30/2024 8:38 AM EST documented in this encounter Results * Direct LDL (03/30/2024 8:38 AM EST) LDL Direct 30 <100 mg/dL [facility] Comment:Greatly elevated Tri glycerides values (>1200 mg/dL)interfere with the dLDL assay.Desirable range <100 mg/dL for primary prevention;<70 mg/dL for patients with CHD or diabetic patientswith > or = 2 CHD risk factors.THIS TEST WAS PERFORMED AT:[employer] [phone] BRASWELL MD 03/30/2024 8:38 AM EST 03/30/2024 8:38 AM EST Generic External Data Provider LAB BLOOD ORDERAB LES Final Result Performing Organization Address [facility] Co de Phone Number [facility] [address] [place] [phone] * Vitamin B12 (03/30/2024 8:38 AM EST) Vitamin B12 320 200 - 900 pg/mL [facility] Comment:NORMAL 200-900 PG/ML INDETERMINATE 160-199 PG/ML DEFICIENT < 160 PG/ML 03/30/2024 8:38 AM EST 03/30/2024 8:38 AM EST Generic External Data Provider LAB BLOOD ORDERAB LES Final Result Performing Organization Address [facility] Co de Phone Number [facility] [address] [place] [phone] * (ABNORMAL) Lipid Panel, Standard (03/30/2024 8:38 AM EST) Triglycerides 105 <150 mg/dL [facility] Comment:Desirable Triglyceri de: less than 150 mg/dLBorderline High Triglyceride 150-199 mg/dLHigh Triglyceride: 200-499 mg/dLVery High Triglyceride: greater than or equal to 5OO mg/dL Cholesterol 85 <200 mg/dL [facility] Comment:Desirable Cholestero l: less than 200 mg/dLBorderline High Cholesterol: 200-239 mg/dLHigh Cholesterol: greater than 239 mg/dL LDL Cholesterol Calculated 28 <100 mg/dL [facility] Comment:Desirable LDL: less than 100 mg/dLNear Optimal/Above Optimal LDL: 110- 129 mg/dLBorderline High LDL: 130-159 mg/dLHigh LDL: 160-189 mg/dLVery High LDL: greater than or equal to 190 mg/dL HDL Cholesterol 36(L) >40 mg/dL [facility] Comment:Desirable HDL: great er than 40 mg/dL Note: This HDL assay may give artificially low results in patients with liver disease. 03/30/2024 8:38 AM EST 03/30/2024 8:38 AM EST us Generic External Data Provider LAB BLOOD ORDERAB LES Final Result [facility] [address] [place] [phone] * (ABNORMAL) Basic Metabolic Panel, Fasting (03/30/2024 8:38 AM EST) Sodium 142 135 - 145 mmol/L [facility] Potassium 3.5 3.3 - 5.1 mmol/L [facility] Chloride 105 96 - 108 mmol/L [facility] Carbon Dioxide 28 22 - 29 mmol/L [facility] Anion Gap 13 12 - 20 [facility] Urea Nitrogen (BUN) 7(L) 9 - 16 mg/dL [facility] Creatinine, Serum 0.55 0.5 - 1.4 mg/dL [facility] Estimated Glomerular Filt Rate >60 [facility] Comment:Chronic Kidney Disea se: Estimated GFR < 60 mL/min/1.17a3Mucrxv Kidney Disease: Estimated GFR < 15 mL/min/1.73m2 Glucose Fasting 210(H) 60 - 99 mg/dL [facility] Comment:A fasting glucose of 126 mg/dl or greater on more than oneoccasion is considered diagnostic of diabetes. Calcium 8.9 8.4 - 10.2 mg/dL [facility] 03/30/2024 8:38 AM EST 03/30/2024 8:38 AM EST us Generic External Data Provider LAB BLOOD ORDERAB LES Final Result Performing Organization Address [facility] Co de Phone Number [facility] [address] [place] [phone] * (ABNORMAL) Hemoglobin A1c (03/30/2024 8:38 AM EST) Hemoglobin A1c 7.4(H) <6.0 % [facility] Comment:Hemoglobin A1C Refer ence Range Adults: 4.8 - 6.0 % Non diabetic: < 6.0 % Goal: < 7.0 %Additional Action Suggested: > 8.0 %Note: Hemoglobin A1c results are invalid for patients with abnormal amounts of HbF. Blood transfusions may impact the HbA1c concentration in the patient sample. Estimated Average Glucose 166 mg/dL [facility] Comment:eAG = Estimated ave rage glucose which is %A1C expressed asaverage glucose, using the formula of the D8N-HgyounpYtgulcs Glucose study (ADAG), Diabetes Care, Vol.31,#8,2007 03/30/2024 8:38 AM EST 03/30/2024 8:38 AM EST us Generic External Data Provider LAB BLOOD ORDERAB LES Final Result Performing Organization Address [facility] Co de Phone Number [facility] [address] [place] [phone] documented in this encounter Visit Diagnoses Not on filedocumented in this encounter Additional Health Concerns Assessment Noted Time PHQ-9 Depression Total Score: 0 01/22/20 24 10:22 AM EST documented as of this encounter Care Teams Medical Representative Relationship Specialty Start Date End Date Jaida Martin DO [address] [place] [phone] PCP - General Family Medicine 03/02/18 Pamela Andres Voice And Data TechnicianFocusing Machine Operator 01/14/24 documented as of this encounter
--- OUTSIDE RECORDS SUMMARY | 2024-04-05 10:47 | XMS_ITS | Encounter Summary ---
Author Organization [employer] Address [address] [facility] 7t [place] [address] Care Team Providers Care Microfilm Duplicating Unit Supervisor Name Role Phone VeronicaJaida Primary Care Provider + [phone] Reason for Visit * Reason Comments Med Refill Encounter Details Date Type Department Care Team ([facility] st Contact Info) Description 02/03/2023 Refill [facility] [address] [place], [place] [phone] Lakshmi Jackson MD [address] [place], [place] [phone] Anemia, unspecified type Social History Tobacco Use [...] Description 04/20/2024 9:30 AM EST Clinical Support [facility] [address] [place] [address] 08/01/2024 10:00 AM EDT Office Visit [facility] ADULT DENTAL [address] [place] [address] Amanda Fernandez [address] [place] [address] documented as of this encounter Visit Diagnoses Diagnosis Anemia, unspecified type documented in this encounter Care Teams Microfilm Duplicating Unit Supervisor Relationship Specialty Start Date End Date Jaida Martin DO [address] [place] [address] PCP - General Family Medicine 03/02/18 Pamela Andres Greaser And OilerFmd Teacher 01/14/24 documented as of this encounter
--- OUTSIDE RECORDS SUMMARY | 2024-04-05 10:47 | XMS_ITS | Encounter Summary ---
Author Organization [employer] [facility] Address [address] [facility] 7t [place] [address] Care Team Providers Care Breast Surgeon Name Role Phone Jaida Martin DO Primary Care Provider [phone] Reason for Visit * Reason Onset Date Comments Referral 05/05/2022 Encounter Details Date Type Department Care Team ([facility] Contact Info) Description 05/05/2022 Telephone [facility] MEDICINE [address] [place], [place] [phone] Jaida Martin DO [address] [place] [address] Referral Social History Tobacco Use Types Packs/Day [...] AM EST Noted pt. Last seen by [facility] April 2021 for gastroparesis and acid reflux. TC placed to pt. And reports she attempted to schedule f/up appt. But was advised they need a new R number to approve more visits. Please send R number to [facility], thank you! * Telephone Encounter - Sugar Vazquez - 05/05/2022 9:30 AM EST Tc from pt requesting a referral Location : [facility] Specialty: Gastrology Date and time : N/A documented in this encounter Plan of Treatment Upcoming Encounters Date Type Department Care Team (Late st Contact Info) Description 04/20/2024 9:30 AM EST Clinical Support [facility] MEDICINE [address] [place] [address] 08/01/2024 10:00 AM EDT Office Visit [facility] ADULT DENTAL [address] [place] [address] Amanda Fernandez [address] [place] [address] documented as of this encounter Visit Diagnoses Not on filedocumented in this encounter Care Teams Breast Surgeon Relationship Specialty Start Date End Date Jaida Martin DO [address] [place] [address] PCP - General Family Medicine 03/02/18 Pamela Andres Lacquer SizerProduction Lead 01/14/24 documented as of this encounter
--- OUTSIDE RECORDS SUMMARY | 2024-04-05 10:47 | XMS_ITS | Encounter Summary ---
Author Organization [employer] [facility] Address [address] [facility] 7t [place] [address] Care Team Providers Care Dairy Husbandry Worker Name Role Phone Jaida Martin DO Primary Care Provider [phone] Encounter Details Date Type Department Care Team (Latest Contact Info) Description 03/12/2020 Abstract [facility] CONVERSIONS Dental, Provider, DDS Social History Tobacco [...] Care Team ( st Contact Info) Description 04/20/2024 9:30 AM EST Clinical Support [facility] MEDICINE [address] [place] [address] 08/01/2024 10:00 AM EDT Office Visit [facility] ADULT DENTAL [address] [place] [address] Jim, Amanda [address] [place] [address] documented as of this encounter Visit Diagnoses Not on filedocumented in this encounter Care Teams Dairy Husbandry Worker Relationship Specialty Start Date End Date Jaida Martin DO [address] [place] [address] PCP - General Family Medicine 03/02/18 Pamela Andres Proof Press OperatorRoute Sales Specialist 01/14/24 documented as of this encounter
--- OUTSIDE RECORDS SUMMARY | 2024-04-05 10:47 | XMS_ITS | Encounter Summary ---
Author Organization [employer] Address [address] 7t [place] [address] Care Team Providers Care Jumbo Operator Name Role Phone VeronicaJaida Primary Care Provider + [phone] Reason for Visit * Reason Comments Med Refill Encounter Details Date Type Department Care Team ([facility] st Contact Info) Description 05/14/2023 Refill [facility] MEDICINE [address] [place], [place] [phone] Suni Quintanilla MD [address] [place], [place] [phone] Social History Tobacco Use Types Packs/Day Years [...] Description 04/20/2024 9:30 AM EST Clinical Support [facility] MEDICINE [address] [place] [address] 08/01/2024 10:00 AM EDT Office Visit [facility] ADULT DENTAL [address] [place] [address] Amanda Fernandez [address] [place] [address] documented as of this encounter Visit Diagnoses Not on filedocumented in this encounter Care Teams Jumbo Operator Relationship Specialty Start Date End Date Jaida Martin DO [address] [place] [address] PCP - General Family Medicine 03/02/18 Pamela Andres Model DresserHead Of Digital Advertising & Integration 01/14/24 documented as of this encounter
--- OUTSIDE RECORDS SUMMARY | 2024-04-05 10:47 | XMS_ITS | Encounter Summary ---
Author Organization [employer] Address [address] [place] [address] Care Team Providers Care Sanitary Aide Name Role Phone Sheila Martinfer Primary Care Provider [phone] Encounter Details Date Type Department Care Team ([facility] Contact Info) Description 04/05/2024 Orders Only GENERIC EXTERNAL DATA DEPARTMENT Provider, [...] Description 04/20/2024 9:30 AM EST Clinical Support [facility] MEDICINE [address] [place] [address] 08/01/2024 10:00 AM EDT Office Visit [facility] ADULT DENTAL [address] [place] [address] Jim, Amanda [address] [place] [address] documented as of this encounter Procedures Procedure Name Priority Date/Time Associated Diagnosis Comments GLUCOSE, WHOLE BLOOD Routine 04/05/2024 10:30 AM EST documented in this encounter Results * (ABNORMAL) Glucose, Whole Blood (04/05/2024 10:30 AM EST) Glucose, Whole Blood 156(H) 60 - 115 mg/dL [facility] Comment:METER #: [id number] 5Testing performed in the Endocrinology Department [address] , [address], [facility]. 04/05/2024 10:3 0 AM EST 04/05/2024 10:36 AM EST us Generic External Data Provider LAB BLOOD ORDERAB LES Final Result [facility] [address] [place] [phone] documented in this encounter Visit Diagnoses Not on filedocumented in this encounter Additional Health Concerns Assessment Noted Time PHQ-9 Depression Total Score: 0 01/22/20 24 10:22 AM EST documented as of this encounter Care Teams Sanitary Aide Relationship Specialty Start Date End Date Jaida Martin DO [address] [place] [address] PCP - General Family Medicine 03/02/18 Pamela Andres Extruding Department SupervisorInspector Automatic Typewriter 01/14/24 documented as of this encounter
--- OUTSIDE RECORDS SUMMARY | 2024-04-05 10:47 | XMS_ITS | Encounter Summary ---
Author Organization [facility] Address [address] [place] [address] Care Team Providers Care Power Lineworker Name Role Phone Jaida Martin Primary Care Provider [phone] Encounter Details Date Type Department Care Team (Late Contact Info) Description 03/23/2024 Telephone [facility] Neurology [address] [place] [phone] Nancy Petty MD [address] [place] [phone] Social History Tobacco Use Types Packs/Day Years [...] Upcoming Encounters Date Type Department Care Team ([facility] Contact Info) Description 09/16/2024 8:30 AM EDT Follow-Up [facility] Neurology [address] [place] [phone] Nancy Petty MD [address] [place] [phone] documented as of this encounter Visit Diagnoses Not on filedocumented in this encounter Care Teams Power Lineworker Relationship Specialty Start Date End Date Jaida Martin [address] [place] [phone] PCP - General Family Medicine 01/20/23 documented as of this encounter
--- OUTSIDE RECORDS SUMMARY | 2024-04-05 10:47 | XMS_ITS | Encounter Summary ---
Author Organization [employer] Address [address] [place] [address] Care Team Providers Care Racquet Maker Name Role Phone Jaida Martin DO Primary Care Provider [phone] Reason for Visit * Reason Comments Med Refill Encounter Details Date Type Department Care Team ([facility] st Contact Info) Description 04/01/2024 Refill [facility] MEDICINE [address] [place] [address] Jaida Martin DO [address] [place] [address] Type 2 diabetes mellitus with other specified complication, with long-term current use of insulin ([facility] Social History Tobacco Use Types Packs/Day Years [...] the past 12 months, has t he [employer], gas, oil or water company threatened to [...] Support [facility] MEDICINE [address] [place] [address] 08/01/2024 10:00 AM EDT Office Visit [facility] ADULT DENTAL [address] [place] [address] Amanda Fernandez [address] [place] [address] documented as of this encounter Visit Diagnoses Diagnosis Type 2 diabetes mellitus with other specified complication, with long-term current use of insulin ([facility]) documented in this encounter Additional Health Concerns Assessment Noted Time PHQ-9 Depression Total Score: 0 01/22/20 24 10:22 AM EST documented as of this encounter Care Teams Racquet Maker Relationship Specialty Start Date End Date Jaida Martin DO [address] [place] [address] PCP - General Family Medicine 03/02/18 Pamela Andres Knotting Machine Operator PortableDiamond Finishing Supervisor 01/14/24 documented as of this encounter
--- OUTSIDE RECORDS SUMMARY | 2024-04-05 10:47 | XMS_ITS | Encounter Summary ---
Author Organization [employer] Address [address] [place] [address] Care Team Providers Care Elevator Operator Service Name Role Phone VeronicaJaida Primary Care Provider [phone] Encounter Details Date Type Department Care Team ([facility] st Contact Info) Description 01/16/2023 Abstract [facility] MEDICINE [address] [place] [address] Justine Huggins Social History Tobacco Use Types [...] Description 04/20/2024 9:30 AM EST Clinical Support [facility] MEDICINE [address] [place] [address] 08/01/2024 10:00 AM EDT Office Visit [facility] ADULT DENTAL [address] [place] [address] Jim, Amanda [address] [place] [address] documented as of this encounter Procedures Procedure Name Priority Date/Time Associated Diagnosis Comments COLONOSCOPY Routine 05/10/2018 documented in this encounter Results * Hm Colonoscopy (05/10/2018) Colonoscopy Normal Normal Comment:Repeat in 5 years us Historical Provider HEALTH MAINTENANCE Final Result documented in this encounter Visit Diagnoses Not on filedocumented in this encounter Care Teams Elevator Operator Service Relationship Specialty Start Date End Date Jaida Martin DO [address] [place] [phone] PCP - General Family Medicine 03/02/18 Pamela Andres Lyric WriterGerman Instructor 01/14/24 documented as of this encounter
--- OUTSIDE RECORDS SUMMARY | 2024-04-05 10:47 | XMS_ITS | Encounter Summary ---
Author Organization [employer] Address [address] [facility] 7t [place] [address] Care Team Providers Care Check Writing Machine Operator Name Role Phone Jaida Martin DO Primary Care Provider [phone] Reason for Visit * Reason Onset Date Comments Durable Medical Equipment 10/01/2022 Encounter Details Date Type Department Care Team ([facility] st Contact Info) Description 10/01/2022 Telephone [facility] MEDICINE [address] [place] [address] Jaida Martin DO [address] [place], [place] [phone] Durable Medical Equipment Social History Tobacco Use [...] Description 04/20/2024 9:30 AM EST Clinical Support [facility] MEDICINE [address] [place] [address] 08/01/2024 10:00 AM EDT Office Visit [facility] ADULT DENTAL [address] [place] [address] Jim, Amanda [address] [place] [address] documented as of this encounter Visit Diagnoses Not on filedocumented in this encounter Care Teams Check Writing Machine Operator Relationship Specialty Start Date End Date Jaida Martin DO [address] [place] [address] PCP - General Family Medicine 03/02/18 Pamela Andres Store Sales ManagerMaintenance Mechanic Technician 01/14/24 documented as of this encounter
--- OUTSIDE RECORDS SUMMARY | 2024-04-05 10:47 | XMS_ITS | Encounter Summary ---
Author Organization [employer] [facility] Address [address] [facility] 7t [place] [address] Care Team Providers Care Deck Worker Name Role Phone Sheila Martinfer Primary Care Provider [phone] Reason for Visit * Reason Onset Date Comments Appointment 10/22/2022 Encounter Details Date Type Department Care Team ([facility] st Contact Info) Description 10/22/2022 Telephone [facility] ADULT DENTAL [address] [place], [place] [phone] Campbell Nguyễn DDS [address] [place], [place] [phone] Appointment Social History Tobacco Use Types Packs/Day [...] Description 04/20/2024 9:30 AM EST Clinical Support [facility] MEDICINE [address] [place] [address] 08/01/2024 10:00 AM EDT Office Visit [facility] ADULT DENTAL [address] [place] [address] JimAmanda [address] [place] [address] documented as of this encounter Visit Diagnoses Not on filedocumented in this encounter Care Teams Deck Worker Relationship Specialty Start Date End Date Jaida Martin DO [address] [place] [address] PCP - General Family Medicine 03/02/18 Pamela Andres Sub PriorBaker Chef 01/14/24 documented as of this encounter
--- OUTSIDE RECORDS SUMMARY | 2024-04-05 10:47 | XMS_ITS | Clinical Summary ---
Author Organization [employer] [facility]y Address [address] [place] [address] Care Team Providers Care Basket Maker Name Role Phone Unavailable Primary Care Provider [...]
--- OUTSIDE RECORDS SUMMARY | 2024-04-05 10:47 | XMS_ITS | Referral Summary ---
Author Organization [facility] Address [address] [place] [address] Care Team Providers Care Front Sight Attacher Name Role Phone Jaida Martin Primary Care Provider +1- [phone] Encounters Date Type Department Care Team Description 03/23/2024 Telephone [facility] Neurology [address] [place] [id number] Nancy Petty MD 03/08/2024 9:00 AM EST Follow-Up [facility]rology [address] [place] [phone] Nancy Petty MD Parkinsonism, unspecified Parkinsonism type [...] Info) Description 09/16/2024 8:30 AM EDT Follow-Up [facility]rology [address] [place] [phone] Nancy Petty MD [address] [place] [phone] Procedures * Due to [place] state law, this organization might not be sharing negative HIV tests. Procedure Name Priority Date/Time Associated Diagnosis Comments COMPREHENSIVE METABOLIC PANEL Routine 12/30/2023 9:51 AM EDT Intention tremor from Last 3 Months or Most Recently Relevant to Health Maintenance Results * Due to [place] state law, this organization might not be sharing negative HIV tests. * (ABNORMAL) Comprehensive Metabolic Panel (12/30/2023 9:51 AM EDT) NA 140 135 - 145 mmol/L 12/30/2023 11:25 AM EDT [facility] K 3.6 3.5 - 5.3 mmol/L 12/30/2023 11:25 AM EDT [facility] Cl 102 98 - 107 mmol/L 12/30/2023 11:25 AM EDT [facility] CO2 27 22 - 32 mmol/L 12/30/2023 11:25 AM EDT [facility] Anion Gap 11 5 - 15 12/30/2023 11:25 AM EDT [facility] Glucose 171(H) 65 - 99 mg/dL 12/30/2023 11:25 AM EDT [facility] Creatinine 0.41(L) 0.50 - 1.20 mg/dL 12/30/2023 11:25 AM EDT [facility] Calcium 9.0 8.6 - 10.5 mg/dL 12/30/2023 11:25 AM EDT [facility] Total Protein 7.6 6.0 - 8.0 g/dL 12/30/2023 11:25 AM EDT [facility] Albumin 4.2 3.5 - 5.2 g/dL 12/30/2023 11:25 AM EDT [facility] Bilirubin, Total 0.3 0.2 - 1.2 mg/dL 12/30/2023 11:25 AM T [facility] Alkaline Phosphatase 152(H) 35 - 129 U/L 12/30/2023 11:25 AM EDT [facility] AST 19 10 - 40 U/L 12/30/2023 11:25 AM EDT [facility] ALT 12 10 - 40 U/L 12/30/2023 11:25 AM EDT [facility] BUN 12 7 - 23 mg/dL 12/30/2023 11:25 AM EDT [facility] eGFR >90 >=60 mL/min/1 .73m2 12/30/2023 11:25 AM EDT [facility] Comment:The estimated glomer ular filtration rate (eGFR) is calculated using a new formula developed by the NKF-ASN task force to eliminate race-based correction factors. The new formula uses serum/plasma creatinine, age, and gender to determine eGFR. A value below 60mls/min might indicate kidney disease and will be flagged. For additional information, see Annemarie olson al, Am J Kidney Dis. 2021;79(2):268- 288, A Unifying Approach for GFR estimation: Recommendations of the NKF-ASN Task Force on Reassessing the Inclusion of Race in Diagnosing Kidney Disease . Globulin, Total 3.4 2.1 - 4.2 g/dL 12/30/2023 11:25 AM EDT [facility] A/G Ratio 1.2(L) 1.5 - 3.0 12/30/2023 11:25 AM EDT [facility] Blood Structure of peripheral vein / Unknown Venipuncture / Unknown 12/30/2023 9:51 AM EDT 12/30/2023 10:39 AM EDT us Nancy Petty MD LAB BLOOD ORDERABLES Fi nal Result [facility] [address] [place] [address], from Last 3 Months or Most Recently Relevant to Health Maintenance Insurance [email or web address] Care Teams Front Sight Attacher Relationship Specialty Start Date End Date Jaida Martin [address] [place] [phone] PCP - General Family Medicine 01/20/23
--- OUTSIDE RECORDS SUMMARY | 2024-04-05 10:47 | XMS_ITS | Encounter Summary ---
Author Organization [facility] Address [address] [facility] [address] [place] [address] Care Team Providers Care Wool Shearing Supervisor Name Role Phone Jaida Martin DO Primary Care Provider Encounter Details Date Type Department Care Team (Latest Contact Info) Description 06/04/2021 Abstract [facility] CONVERSIONS Dental, Provider, DDS Social History Tobacco [...] Description 04/20/2024 9:30 AM EST Clinical Support [facility] MEDICINE [address] [place] [address] 08/01/2024 10:00 AM EDT Office Visit [facility] ADULT DENTAL [address] [place] [address] Jim, Amanda [address] [place] [address] documented as of this encounter Visit Diagnoses Not on filedocumented in this encounter Care Teams Wool Shearing Supervisor Relationship Specialty Start Date End Date Jaida Martin DO [address] [place] [address] PCP - General Family Medicine 03/02/18 Pamela Andres Electrician [employer] 01/14/24 documented as of this encounter
--- OUTSIDE RECORDS SUMMARY | 2024-04-05 10:47 | XMS_ITS | Encounter Summary ---
Author Organization [facility] Address [address] [place] [address] 7[address] [place] [address] Care Team Providers Care Cost Report Clerk Name Role Phone VeronicaJaida Primary Care Provider Encounter Details Date Type Department Care Team (Late Contact Info) Description 12/03/2022 Abstract [facility] MEDICINE [address] [place] [address] Justine Huggins Social History Tobacco Use Types [...] Description 04/20/2024 9:30 AM EST Clinical Support [facility] MEDICINE [address] [place], [place] [phone] 08/01/2024 10:00 AM EDT Office Visit [facility] ADULT DENTAL [address] [place] [address] Amanda Fernandez [address] [place] [address] documented as of this encounter Procedures Procedure Name Priority Date/Time Associated Diagnosis Comments HM PAP/HPV Routine 12/21/2019 documented in this encounter Results * Pap Smear (12/21/2019) Pap Negative for intraephithelial lesion or malignancy Negative for intraephithelial lesion or malignancy, Other HPV Undetected Historical Provider HEALTH MAINTENANCE Final Result documented in this encounter Visit Diagnoses Not on filedocumented in this encounter Care Teams Cost Report Clerk Relationship Specialty Start Date End Date Jaida Martin DO [address] [place] [phone] PCP - General Family Medicine 03/02/18 Pamela Andres [employer]ove BrusherDehydration Unit Operator 01/14/24 documented as of this encounter
--- OUTSIDE RECORDS SUMMARY | 2024-04-05 10:47 | XMS_ITS | Encounter Summary ---
Author Organization [facility] Address [address] [place] [address] Care Team Providers Care Coil Winder Repair Name Role Phone Jaida Martin Primary Care Provider [phone]- [phone] Reason for Visit * Consultation (Urgent) - Authorized Specialty Diagnoses / Procedures Referred By Kendrick breaux Referred To Contact Neurology Diagnoses Tremor of both hands Jaida Martin [address] [place] [address] Phone: tel: fax: [facility] Neurology [address] [place] [phone] Phone: tel: fax: Referral ID Status Reason Start Date Expiration Date Visits Requested Visits Authorized [id number] Authorized Specialty Services Required 3 07/27/2024 6 6 Encounter Details Date Type Department Care Team ([facility] st Contact Info) Description 03/08/2024 9:00 AM EST Follow-Up [facility] Neurology [address] [place] [phone] Nancy Petty MD [address] [place] [phone] Parkinsonism, unspecified Parkinsonism type (HCC) (Primary Dx); [...] EST ASSESSMENT AND PLAN: 58 y.o. left-handed japanese-speaking female with history of Binge eating disorder, [...] deficiency history Was seen by PCP at [facility] on 01/22/2024, I reviewed the note which [...] neurology clinic on 01/28/2023: 57 y.o. left-handed japanese-speaking female with history of Binge eating disorder, [...] today who translates per their preference, declined sign language interpreter. Parkinsonism, essential tremors, depression/anxiety/PTSD, LBP with occasional [...] multiple falls, some cognitive complaints, has a BARK SCALER to help out. Other symptoms as listed below. She has been migraine free for some time. Impression is that patient has parkinsonism that is superimposed on top of her previous history of benign essential tremors (previously followed by [facility] neurology but that was years ago). [...] these labs. Was seen by PCP at [facility] on 01/22/2024, I reviewed the note which [...] face, upper and lower extremities bilaterally. Coordination: [id number] mild right and left IK tremors No [...] D, (D2,D3), LC/MS/MS is recommended: order code 41991 (patients >2yrs). See Note 1 Note 1 For additional information, please refer to http://education.[employer]faq/UBY047 (This link is being provided for informational/ educational purposes only.) Vitamin B1 (Thiamine), Blood, LCMS* 12/30/2023 190 (H) 78 - 185 nmol/L Final Vitamin supplementation within 24 hours prior to blood draw may affect the accuracy of the results. This test was developed and its analytical performance characteristics have been determined by [facility] [place], [place]. It has not been cleared or [...] Info) Description 09/16/2024 8:30 AM EDT Follow-Up [facility] Neurology [address] [place] [phone] Nancy Petty MD [address] [place] [phone] documented as of this encounter Visit Diagnoses [...] persistent documented in this encounter Care Teams Coil Winder Repair Relationship Specialty Start Date End Date Jaida Martin [address] [place] [address] PCP - General Family Medicine 01/20/23 documented as of this encounter
--- OUTSIDE RECORDS SUMMARY | 2024-04-05 10:47 | XMS_ITS | Clinical Summary ---
Author Organization [employer] Address [address] [facility] [address] [place] [address] Care Team Providers Care Tourist Information Assistant Name Role Phone VeronicaJaida Primary Care Provider [phone] Allergies No known active allergies Medications * [...] times daily. 2021 Active TRUEplus Lancets 33G [facility] TEST BLOOD SUGAR 4 TIMES A DAY [...] of candidiasis. Do not swallow. 1 each 11 08/17 Active acetaminophen (Tylenol 8 Hour) 650 MG ER tablet Take 1 tablet (650 mg) by mouth every 8 (eight) hours if needed for mild pain. Do not crush, chew, or split. 60 tablet 3 08/17 Active Diclofenac Sodium 1 % gel Please use as needed for pain up to 4x daily 150 g 3 2023 Active glucose 4 g chewable tablet CHEW 4 TABLETS NEEDED FOR low blood sugar (LESS THAN 70mg/dL). TEST BLOOD SUGAR AFTER 15 MINUTES IF <70 REPEAT 90 tablet 4 2023 Active Continuous Glucose Sensor (FreeStyle Ortiz 2 Sensor) [facility] Take 1 tablet by mouth Once per day. 2023 Active albuterol (2.5 MG/3ML) 0.083% nebulizer [...] THE MORNING 45 tablet 1 2024 Active lidocaine (Lidoderm) 5 % patch APPLY 1 TO 2 PATCHES TOPICALLY TO AFFECTED AREA(S). LEAVE ON FOR 12 HOURS, OFF FOR 12 HOURS. USE NEEDED FOR MILD PAIN. 60 patch 3 2024 Active metFORMIN (Glucophage) 500 MG tabletIndications: Type 2 diabetes mellitus with other specified complication, with long-term current use of insulin (CMS/HCC) TAKE 2 TABLETS BY MOUTH TWICE DAILY IN THE MORNING AND EVENING 360 tablet 3 2024 Active Continuous Glucose Manager Wellness (FreeStyle Ortiz 3 [place]) device use as directed 2023 Active insulin NPH, Isophane, (HumuLIN N,NovoLIN N) 100 UNIT/ML injection Inject 50 Units under the skin every 12 (twelve) hours. Active carbidopa-levodopa (Sinemet) 25-100 MG tablet Start carbidopa/levodop a (25/100 mg) tabs, take 1 tab twice daily for 3 days then go up to 1 tab 3 times a day as tolerated 2024 Active lidocaine (Lidoderm) 5 % patch Apply 1-2 patches topically if needed each day for mild pain. Remove & discard patch within 12 hours or as directed by . 60 patch 3 04/01 Discontinued ferrous sulfate (FeroSul) 325 (65 Fe) MG tabletIndications: Anemia, unspecified type TAKE 1 TABLET BY MOUTH EVERY OTHER DAY IN THE MORNING 45 tablet 1 03/29 Discontinued metFORMIN (Glucophage) 500 MG tabletIndications: Type 2 diabetes mellitus with other specified complication, with long-term current use of insulin ([facility]) TAKE 2 TABLETS BY MOUTH TWICE DAILY IN THE MORNING AND EVENING 360 tablet 1 04/01 Discontinued Hospital, Clinic, or Other Facility Administered Medication Ordered Dose Route Frequency Start Date End Date Status cyanocobalamin (Vitamin B-12) injection 1,000 mcgIndications:B12 deficiency 1000 mcg IM Every 8 weeks 02/15/2024 03/13/2025 Active Active Problems Problem Noted Date Diagnosed Date Fractured dental [facility] with loss of materi al 06/24/2023 Partial [...] ambulance. WHO with EMS staff Taken to [facility] for SOB, weakness Will monitor for ED [...] URI + Prednisone use Mounjaro Rx by sld inclusion teacher yesterday is on backorder for at least [...] glucose gel + glucagon Pt seen by behavioral technician [facility] this yr [...] Encounters Date Type Department Care Team Description 04/05/2024 Orders Only GENERIC EXTERNAL DATA DEPARTMENT Provider, Generic External Data 04/01/2024 Refill [facility] [address] [place] [address] Jaida Martin, Type 2 diabetes mellitus with other specified complication, with long-term current use of insulin ([facility]) 03/30/2024 Orders Only GENERIC EXTERNAL DATA DEPARTMENT Provider, Generic External Data 03/29/2024 Refill [facility] [address] [place] [address] Jaida Martin DO Anemia, unspecified type 03/17/2024 9:30 AM EST Office Visit [facility] [address] [place], [place] [phone] Ta, Soha, OD Type 2 diabetes mellitus without ophthalmic manifestations (CMS/HCC) (Primary Dx); Dry eyes, bilateral; Combined forms of age-related cataract of both eyes; Presbyopia 03/17/2024 Travel 02/29/2024 Refill [facility] [place] [address] Jaida Martin DO Chronic constipation 02/26/2024 Orders Only GENERIC EXTERNAL DATA DEPARTMENT Provider, Generic External Data 02/15/2024 10:00 AM EST Clinical Support [facility] [place] [address] Tara Hartman, GIL Vitamin B12 deficiency [E53.8] 02/15/2024 Orders Only [facility] [place] [address] Jaida Martin DO B12 deficiency (Primary Dx) 02/15/2024 Travel 02/02/2024 Refill [facility] [place] [address] Jaida Martin DO Chronic gastroesophageal reflux disease; Hyperlipidemia, unspecified hyperlipidemia type 01/22/2024 10:30 AM EST Office Visit [facility] [place] [address] Jaida Martin DO Routine history and physical examination of adult (Primary Dx); Type 2 diabetes mellitus with microalbuminuria, with long-term current use of insulin (CMS/HCC); Essential hypertension; Other hyperlipidemia; Major depression, recurrent, chronic (CMS/HCC); Fatty liver; Mild persistent asthma without complication; Obstructive sleep apnea; Mixed stress and urge urinary incontinence; Fibromyalgia; Chronic bilateral low back pain, unspecified whether sciatica present; Chronic pain of both knees; BMI 40.0-44.9, adult (CMS/HCC); Encounter for immunization 01/22/2024 Travel 01/14/2024 Telephone [facility] [place] [place] [address] Jaida Martin DO Care Coordination (ICP BH) 01/11/2024 Telephone [facility] [place] [address] Jaida Martin DO No Show 01/06/2024 Refill [facility] [address] [place] [address] Jaida Martin DO Hyperlipidemia, unspecified hyperlipidemia type; B12 deficiency; Hypothyroidism, unspecified type; Vitamin D deficiency; Anemia, unspecified type 01/04/2024 Patient Outreach [facility] [address] [place] [address] Jaida Martin DO Pre-visit Planning (SDOH screening [...] Description 04/20/2024 9:30 AM EST Clinical Support [facility] [address] [place] [address] 08/01/2024 10:00 AM EDT Office Visit [facility] [address] [place] [address] Amanda Fernandez [address] [place] [address] Health Maintenance Due Date Last Done Comments CT Colonography 1967 FIT DNA/Cologuard 1967 FIT 1967 FOBT 1965 Sigmoidoscopy 1965 Pap Smear 12/20/2022 12/21/2019 Colonoscopy 05/11/2023 05/10/2018 Colorectal Cancer Screening 05/11/2023 Dental Oral Exam 10/17/2023 04/17/2023, 04/22/2022 Dental Prophylaxis 10/17/2023 04/17/2023, 04/22/2022 Dental X-Ray: Bitewings 04/18/2024 04/17/2023, 04/22 Diabetes: Foot Exam 05/28/2024 05/29/2023, 05/29/2023, 05/29/2023, Additional history exists Dental X-Ray: Full Mouth 06/19/2024 06/18/2021 Diabetes: Hemoglobin A1C 06/28/202403/30/ 025, 12/28/2023, 10/06/2023, Additional history exists Cervical Cancer Screening 12/20/2024 HPV/Cotest 12/20/2024 12/21/2019 Alcohol/Substance Use Screening 01/21/2025 01/22/2024 Depression Screening 01/21/2025 01/22/2024, 01/22/20 SDOH Screening 01/21/2025 01/22/2024 Lipid Panel 03/30/2025 03/30/2024, 03/03, 12/12/2022, Additional history exists Tobacco Screening 04/04/2025 04/04/2024 Mammogram 08/25/2025 08/26/2023, 07/02, 07/29/2022, Additional history [...] Zoster Vaccines Completed 09/11/2020, 07/05/2020 Pneumococcal Vaccine: 50+ Years Completed 11/21/2021, 03/21/2018, 10/17/2012, Additional history exists [...] WHOLE BLOOD Routine 04/05/2024 10:30 AM EST DIRECT LDL Routine 03/30/2024 8:38 AM EST VITAMIN B12 Routine 03/30/2024 8:38 AM EST LIPID PANEL, STANDARD Routine 03/30/2024 8:38 AM EST BASIC METABOLIC PANEL, FASTING Routine 03/30/2024 8:38 AM EST HEMOGLOBIN A1C Routine 03/30/2024 8:38 AM EST GLUCOSE, WHOLE BLOOD Routine 02/26/2024 10:03 AM EST POCT GLUCOSE Routine 01/22/2024 10:23 AM EST Type 2 diabetes mellitus with microalbuminuria, with long-term current use of insulin ([facility]) GLUCOSE, WHOLE BLOOD Routine 01/04/2024 10:17 AM [...] ESTABLISHED PATIENT Routine 04/17/2023 2:00 PM EST HIV 1/2 ANTIGEN/ANTIBODY, FOURTH GENERATION W/RFL Routine 03/12/2020 8:49 AM EST HM PAP/HPV Routine 12/21/2019 HM COLONOSCOPY Routine 05/10/2018 from Last 3 Months or Most Recently Relevant to Health Maintenance Results * (ABNORMAL) Glucose, Whole Blood (04/05/2024 10:30 AM EST) Only the most recent of3 resultswithin the time period is included. Glucose, Whole Blood 156(H) 60 - 115 mg/dL [facility] Comment:METER #: [id number] 5Testing performed in the Endocrinology Department [address] , [address], [facility]. 04/05/2024 10:3 0 AM EST 04/05/2024 10:36 AM EST us Generic External Data Provider LAB BLOOD ORDERAB LES Final Result [facility] [address] [place] [phone] * (ABNORMAL) Basic Metabolic Panel, Fasting (03/30/2024 8:38 AM EST) Sodium 142 135 - 145 mmol/L [facility] Potassium 3.5 3.3 - 5.1 mmol/L [facility] Chloride 105 96 - 108 mmol/L [facility] Carbon Dioxide 28 22 - 29 mmol/L [facility] Anion Gap 13 12 - 20 [facility] Urea Nitrogen (BUN) 7(L) 9 - 16 mg/dL [facility] Creatinine, Serum 0.55 0.5 - 1.4 mg/dL [facility] Estimated Glomerular Filt Rate >60 [facility] Comment:Chronic Kidney Disea se: Estimated GFR < 60 mL/min/[id number] Kidney Disease: Estimated GFR < 15 mL/min/1.73m2 Glucose Fasting 210(H) 60 - 99 mg/dL [facility] Comment:A fasting glucose of 126 mg/dl or greater on more than oneoccasion is considered diagnostic of diabetes. Calcium 8.9 8.4 - 10.2 mg/dL [facility] 03/30/2024 8:38 AM EST 03/30/2024 8:38 AM EST Generic External Data Provider LAB BLOOD ORDERAB LES Final Result Performing Organization Address [facility] de Phone Number [facility] [address] [place] [phone] * Direct LDL (03/30/2024 8:38 AM EST) LDL Direct 30 <100 mg/dL [facility] Comment:Greatly elevated Tri glycerides values (>1200 mg/dL)interfere with the dLDL assay.Desirable range <100 mg/dL for primary prevention;<70 mg/dL for patients with CHD or diabetic patientswith > or = 2 CHD risk factors.THIS TEST WAS PERFORMED AT:[address] [place] [id number] BRASWELL MD 03/30/2024 8:38 AM EST 03/30/2024 8:38 AM EST Generic External Data Provider LAB BLOOD ORDERAB LES Final Result Performing Organization Address [facility] Phone Number [facility] [address] [place] [phone] * (ABNORMAL) Hemoglobin A1c (03/30/2024 8:38 AM EST) Hemoglobin A1c 7.4(H) <6.0 % [facility] Comment:Hemoglobin A1C Refer ence Range Adults: 4.8 - 6.0 % Non diabetic: < 6.0 % Goal: < 7.0 %Additional Action Suggested: > 8.0 %Note: Hemoglobin A1c results are invalid for patients with abnormal amounts of HbF. Blood transfusions may impact the HbA1c concentration in the patient sample. Estimated Average Glucose 166 mg/dL [facility] Comment:eAG = Estimated ave rage glucose which is %A1C expressed asaverage glucose, using the formula of the M5J-TanskjiHrwydth Glucose study (ADAG), Diabetes Care, Vol.31,#8,Aug. 2007 03/30/2024 8:38 AM EST 03/30/2024 8:38 AM EST us Generic External Data Provider LAB BLOOD ORDERAB LES Final Result Performing Organization Address [facility]/ZIP Co de Phone Number [facility] [address] [place] [phone] * Vitamin B12 (03/30/2024 8:38 AM EST) Vitamin B12 320 200 - 900 pg/mL [facility] Comment:NORMAL 200-900 PG/ML INDETERMINATE 160-199 PG/ML DEFICIENT < 160 PG/ML 03/30/2024 8:38 AM EST 03/30/2024 8:38 AM EST us Generic External Data Provider LAB BLOOD ORDERAB LES Final Result Performing Organization Address City/[facility]/ZIP Co de Phone Number [facility] [address] [place] [phone] * (ABNORMAL) Lipid Panel, Standard (03/30/2024 8:38 AM EST) Triglycerides 105 <150 mg/dL [facility] Comment:Desirable Triglyceri de: less than 150 mg/dLBorderline High Triglyceride 150-199 mg/dLHigh Triglyceride: 200-499 mg/dLVery High Triglyceride: greater than or equal to 5OO mg/dL Cholesterol 85 <200 mg/dL [facility] Comment:Desirable Cholestero l: less than 200 mg/dLBorderline High Cholesterol: 200-239 mg/dLHigh Cholesterol: greater than 239 mg/dL LDL Cholesterol Calculated 28 <100 mg/dL [facility] Comment:Desirable LDL: less than 100 mg/dLNear Optimal/Above Optimal LDL: 110- 129 mg/dLBorderline High LDL: 130-159 mg/dLHigh LDL: 160-189 mg/dLVery High LDL: greater than or equal to 190 mg/dL HDL Cholesterol 36(L) >40 mg/dL [facility] Comment:Desirable HDL: great er than 40 mg/dL Note: This HDL assay may give artificially low results in patients with liver disease. 03/30/2024 8:38 AM EST 03/30/2024 8:38 AM EST us Generic External Data Provider LAB BLOOD ORDERAB LES Final Result [facility] [address] [place] [phone] [phone] * POCT Glucose (01/22/2024 10:23 AM EST) Glucose Blood, POC 139 60 - 200 mg/dL QC Media Lot # [id number] Lot# Expiration Date [id number] Blood Capillary blood specimen / Unknown 01/22/2024 10:23 AM EST us Jaida Martin DO POINT OF CARE TEST ENTER/RICHARD T ORDERABLES Final Result * BI Mammogram Screening Tomosynthesis Bilateral (08/26/2023 9:13 AM EDT) Anatomical Region Laterality Modality Breast Bilateral Mammography 08/26/2023 9:13 AM EDT Narrative 08/26/2023 10:28 AM EDT ? [facility] [place] ? [address] ?[place] [id number] ? Mammography Report ? Signed ? Patient: Candace Valdez ?MR#: [id number] ?? [id number] ? : 1965 ?Acct:[id number] ? Age/Sex: 58 / F ?ADM Date: 06/26/24 ? Loc: HO.MAMMO ? Attending Dr: Jaida Martin DO ? Ordering Physician: Jaida Martin DO ?Results: 1N ?? egative ? Date of Service: 08/26/23 ?Follow Up: 1 Year From Orig ?? inal Mammogram ? Procedure(s): MM tomosynthesis screening BI ?? Accession Number(s): [id number] ? cc: Jaida Martin DO ? EXAMINATION: [...] 1024 ? DD/ 0913 ? TD/TT: ? Timber Hand: ? Procedure Note Donotuseinterpreter, Image - 08/26/2023 [place] [facility] [address] [place] [address] Mammography Report Signed Patient: Kelsea Valdez#: M [id number] : 1965Acct:[id number] Age/Sex: 58 / FADM Date: 08/26/23 Loc: HOFallonMAMMO Attending Dr: Jaida Martin DO Ordering Physician: Jaida Martinults: 1N egative Date of Service: 08/26/23Follow Up: 1 Year From Orig inal Mammogram Procedure(s): MM tomosynthesis screening BI Accession Number(s): [id number] cc: Jaida Martin DO EXAMINATION: MM SCREENING [...] Roberts MD in OV> 08/26/23 1024 DD/ 2 TD/TT: Timber Hand: Jaida Martin DO IMG BI PROCEDURES Edited Res ult - Final * Hepatitis Panel, General (07/21/2023 8:47 AM EDT) Hepatitis A IgM Nonreactive Nonreactive [facility] Comment:IgM antibodies to ACOSTA V not detected; does not exclude earlyacute or recovered HAV infection. ~Hepatitis B Surface Antibody REACTIVE Nonreactive [facility] Comment:REACTIVE: > 11.99 mI U/mL Hepatitis B Core Antibody Nonreactive Nonreactive [facility] Hepatitis C Antibody Nonreactive Nonreactive [facility] Comment:Antibodies to HCV no t detected; does not exclude early acuteHCV infection. Hepatitis B Surface Ag Negative Negative [facility] 07/21/2023 8:47 AM EDT 07/21/2023 8:47 AM EDT us Generic External Data Provider LAB BLOOD ORDERAB LES Final Result [facility] [address] [place] [phone] * HIV 1/2 ANTIGEN/ANTIBODY,FOURTH GENERATION W/RFL (03/12/2020 8:49 AM EST) HIV-1/2 ANTIGEN AND ANTIBODIES, 4TH GENERATION W/ REFLEX NON-REACT NEFTALI NON-REACT NEFTALI [facility] Comment: HIV-1 antigen and HIV-1/HIV-2 [...] ? For additional information please refer to http://education.Kanga/faq/KWR470 (This link is being provided for informational/ educational purposes only.) ? The performance of this assay has not been clinically validated in patients less than 2 years old. ?? 03/12/2020 8:49 AM EST Jaida Martin DO LAB BLOOD ORDERABLES Final R esult [facility] [address] * Pap Smear (12/21/2019) Pap Negative for intraephithelial lesion or malignancy Negative for intraephithelial lesion or malignancy, Other HPV Undetected Historical Provider HEALTH MAINTENANCE Final Result * Colonoscopy (05/10/2018) Colonoscopy Normal Normal Comment:Repeat in 5 years Historical Provider HEALTH MAINTENANCE Final Result from Last 3 Months or Most Recently Relevant to Health Maintenance Insurance [facility] STAND ADULT Care Teams Tourist Information Assistant Relationship Specialty Start Date End Date Jaida Martin DO [address] [place] [phone] PCP - General Family Medicine 03/02/18 Pamela Andres Air GrinderChlorinator Operator 01/14/24
== END 2024-04-05 11:00 | disposition home or self-care (01) ==
PROVIDERS: PCP Family Medicine; Visit Provider Nurse Practitioner Adult Health
DX: E11.649 Type 2 diabetes mellitus with hypoglycemia without coma (principal)
CPT/HCPCS: 95251; 99214

== ENCOUNTER → 2024-04-05 10:03 | Outpatient (BNVA) | payer MEDICAID, SELFPAY | PROVIDERS: PCP Family Medicine; Visit Provider Nurse Practitioner Adult Health | DX: E11.65 Type 2 diabetes mellitus with hyperglycemia (principal); E11.649 Type 2 diabetes mellitus with hypoglycemia without coma; Z79.899 Other long term (current) drug therapy | CPT/HCPCS: 82947; 99212 ==

== ENCOUNTER 2024-05-06 08:26 | Outpatient (REF) | payer MEDICAID, SELFPAY ==
--- NOTE | ~2024-05-06 | US_ITS ---
EXAMINATION: Noninvasive assessment of the bilateral lower extremities with ARTERIAL DUPLEX, ANKLE BRACHIAL INDICES (ABIs), and PULSE VOLUME RECORDINGS (PVRs). CLINICAL INFORMATION: Peripheral vascular disease. TECHNIQUE: Duplex Doppler techniques with waveform analysis and measurement of velocities in the bilateral common femoral, profunda femoris, superficial femoral, popliteal and tibial arteries were performed. Additionally, ankle pulse volume recordings, ankle pressure measurements and ankle brachial indices were obtained of the lower extremity arterial system bilaterally. The study was performed only at rest. COMPARISON: None FINDINGS: DIRECT DUPLEX DOPPLER FINDINGS: RIGHT LEG: Common femoral artery: 142 cm/s, phasicity: Triphasic. Profunda femoris artery: 109 cm/s, phasicity: Triphasic. Superficial femoral artery (proximal): 117 cm/s, phasicity: Triphasic. Superficial femoral artery (mid): 122 cm/s, phasicity: Triphasic. Superficial femoral artery (distal): 136 cm/s, phasicity: Triphasic. Popliteal artery: 74 cm/s, phasicity: Triphasic. Posterior tibial artery: 99 cm/s, phasicity: Biphasic. Spectral broadening. Peroneal artery: 48 cm/s, phasicity: Biphasic. Spectral broadening. Anterior tibial artery: 69 cm/s, phasicity: Biphasic. Spectral broadening. Dorsalis pedis artery: 84 cm/s, phasicity:Biphasic. Spectral broadening. LEFT LEG: Common femoral artery: 140 cm/s, phasicity: Triphasic. Profunda femoris artery: 104 cm/s, phasicity: Triphasic. Superficial femoral artery (proximal): 132 cm/s, phasicity: Triphasic. Superficial femoral artery (mid): 121 cm/s, phasicity: Triphasic. Superficial femoral artery (distal): 118 cm/s, phasicity: Triphasic. Popliteal artery: 88 cm/s, phasicity: Triphasic. Posterior tibial artery: 87 cm/s, phasicity: Biphasic. Peroneal artery: 36 cm/s, phasicity: Biphasic. Anterior tibial artery: 97 cm/s, phasicity: Triphasic. Dorsalis pedis artery: 78 cm/s, phasicity: Triphasic. US/US arterial duplex LE BI IMPRESSION: Right leg: Disease, mild, from the peroneal artery anterior and posterior tibialis arteries and dorsalis pedis artery. Left leg: Disease, mild, left posterior tibialis artery. Electronically signed by: Morgan Atkinson MD 05/09/2024 12:09 PM EDT RP
--- OUTSIDE RECORDS SUMMARY | 2024-05-06 08:53 | XMS_ITS | Encounter Summary ---
Author Organization [employer] Address [address] [place] [address] Care Team Providers Care Crime Specialist Name Role Phone Veronica Jaida Primary Care Provider Encounter Details Date Type Department Care Team ([facility] st Contact Info) Description 04/20/2024 9:00 AM EST Office Visit [facility] [address] [place] [address] Ta, Soha, OD [address] [place] [address] Regular astigmatism of right eye (Primary Dx) Social History Tobacco Use Types [...] AM EDT documented as of this encounter Progress Notes * Soha Chappell OD - 04/20/2024 9:00 AM EST MH glasses were dispensed, 1 of 2. documented in this encounter Plan of Treatment Upcoming Encounters Date Type Department Care Team (Late st Contact Info) Description 06/15/2024 9:30 AM EDT Clinical Support [facility] [address] [place] [address] 08/01/2024 10:00 AM EDT Office Visit [facility] ADULT DENT[facility] [address] [place] [address] Amanda Fernandez [address] [place] [address] documented as of this encounter Visit Diagnoses Diagnosis Regular astigmatism of right eye- Primary documented in this encounter Additional Health Concerns Assessment Noted Time PHQ-9 Depression Total Score: 0 01/22/20 24 10:22 AM EST documented as of this encounter Care Teams Crime Specialist Relationship Specialty Start Date End Date Jaida Martin DO [address] [place] [phone] PCP - General Family Medicine 03/02/18 Pamela Andres Shading PainterInsulation Professional 01/14/24 documented as of this encounter
--- OUTSIDE RECORDS SUMMARY | 2024-05-06 08:53 | XMS_ITS | Encounter Summary ---
Author Organization [employer] Address [address] [facility] [address] [place] [address] Care Team Providers Care Hall Porter Name Role Phone VeronicaJaida Primary Care Provider [phone] Reason for Visit * Reason Comments B12 Injection Encounter Details Date Type Department Care Team (Latest Contact Info) Description 04/20/2024 9:30 AM EST Clinical Support [facility] [address] [place], [place] [phone] Tara Hartman RN [address] [place], [place] [phone] Vitamin B12 deficiency [E53.8] Social History Tobacco Use Types Packs/Day Years [...] as of this encounter Progress Notes * Tara Hartman RN - 04/20/2024 9:30 AM EST S: Pt here for nurse visit B12 injection, today B12 standing order verified 02/15/2024. Pt denies any difficulties with previous injection received. O: Cyanocobalamin 1,000mcg/ML, 1mL given on right deltoid muscle, pt tolerated well. Pt observed for 15 minutes, no adverse reaction. A: Vitamin B12 Deficiency P: Pt may go home and return for next B12 injection on 06/15/24, and bring Vitamin B12 vial to next appt. Advised to monitor injection site for any increased redness or swelling and follow up with PCPas needed. Pt agrees with plan and verbalized understanding. Tara Hartman RN documented in this encounter Plan of Treatment Upcoming Encounters Date Type Department Care Team (Late st Contact Info) Description 06/15/2024 9:30 AM EDT Clinical Support [facility] [address] [place] [address] 08/01/2024 10:00 AM EDT Office Visit [facility]ULT DENT[facility] [address] [place] [address] Amanda Fernandez [address] [place] [address] documented as of this encounter Visit Diagnoses Diagnosis Vitamin B12 deficiency [E53.8] Other B-complex deficiencies documented in this encounter Administered Medications Active Administered Medications - up to 3 most recent administrations Medication Order MAR Action Action Date Dose Rate Site cyanocobalamin (Vitamin B-12) injection 1,000 mcg 1,000 mcg, Intramuscular, Every 8 weeks, First dose on Thu02/15/24 at 1130, For 7 dosesIndications:B12 deficiency Given 04/20/2024 9:07 AM EST 1,000 mcg Right Deltoid Given 02/15/2024 11:00 AM EST 1,000 mcg R ight Deltoid documented in this encounter Additional Health Concerns Assessment Noted Time PHQ-9 Depression Total Score: 0 01/22/20 10:22 AM EST documented as of this encounter Care Teams Hall Porter Relationship Specialty Start Date End Date Jaida Martin DO [address] [place] [address] PCP - General Family Medicine 03/02/18 Pameal Andres Data Warehousing EngineerStreet Light Cleaner 01/14/24 documented as of this encounter
--- OUTSIDE RECORDS SUMMARY | 2024-05-06 08:53 | XMS_ITS | Encounter Summary ---
Author Organization [employer] Address [address] [facility] [facility] 7t [place] [address] Care Team Providers Care Technical Sales Advisor Name Role Phone Jaida Martin DO Primary Care Provider Reason for Visit * Reason Onset Date Comments Referral 04/12/2024 Encounter Details Date Type Department Care Team ([facility] Contact Info) Description 04/12/2024 Telephone [facility] MEDICINE [address] [place], [place] [phone] Jaida Martin DO [address] [place], [place] [phone] Referral Social History Tobacco Use Types Packs/Day [...] encounter Miscellaneous Notes * Telephone Encounter - Tara Hartman RN - 04/13/2024 8:35 AM EST TC placed to patient [phone] to inquire on need for referral (patient is being seen at [facility] neurology). Patient reports [facility] is too far for patient and she no longer has anyone who can bring her to [facility] to be seen. Patient is requesting referral to [facility] neurology as it is closer. Patient informed PCP will place new referral and patient will receive a letter in the mail with appointment date and time or a call from the office. Patient to f/u PRN. * Telephone Encounter - Chrissy Monson - 04/12/2024 11:54 AM EST Tc from pt requesting new referral: Specialist: Neurology - MONICO Flaherty Facility: [facility] Neurology and Sleep - [address] [place] [address] P. [phone] F. [phone] documented in this encounter Plan of Treatment Upcoming Encounters Date Type Department Care Team (Late st Contact Info) Description 06/15/2024 9:30 AM EDT Clinical Support [facility] MEDICINE [address] [place] [address] 08/01/2024 10:00 AM EDT Office Visit [facility] ADULT DENTAL [address] [place] [address] Jc Fernandezaris [address] [place] [address] documented as of this encounter Visit Diagnoses Not on filedocumented in this encounter Additional Health Concerns Assessment Noted Time PHQ-9 Depression Total Score: 0 01/22/20 10:22 AM EST documented as of this encounter Care Teams Technical Sales Advisor Relationship Specialty Start Date End Date Jaida Martin DO [address] [place] [address] PCP - General Family Medicine 03/02/18 Pamela Andres [facility] Social WorkerCharging Manipulator 01/14/24 documented as of this encounter
--- OUTSIDE RECORDS SUMMARY | 2024-05-06 08:53 | XMS_ITS | Encounter Summary ---
Author Organization [employer] [facility] Address [address] [facility] 7t [place] [address] Care Team Providers Care Hairspring I Inspector Name Role Phone Jaida Martin DO Primary Care Provider [phone] Reason for Referral * Consultation (Urgent) - Authorized Specialty Diagnoses / Procedures Referred By Contcarlitos t Referred To Contact Neurology Diagnoses Parkinsonism, unspecified Parkinsonism type (CMS/HCC) Jaida Martin DO [address] [place] [address] Phone: tel: fax: [facility] Referral ID Status Reason Start Date Expiration Date Visits Requested Visits Authorized [id number] Authorized Specialty Services Required 04/19/2024 04/19/2025 6 6 Encounter Details Date Type Department Care Team ([facility] st Contact Info) Description 04/15/2024 Orders Only [facility] MEDICINE [address] [place] [address] [phone] Jaida Martin DO [address] [place], [place] [phone] Parkinsonism, unspecified Parkinsonism type (CMS/HCC) (Primary Dx) Social History Tobacco Use Types [...] as of this encounter Progress Notes * Jaida Martin DO - 04/15/2024 2:31 PM EST Neurology referral ordered. documented in this encounter Plan of Treatment Upcoming Encounters Date Type Department Care Team (Late st Contact Info) Description 06/15/2024 9:30 AM EDT Clinical Support [address] [address] 08/01/2024 10:00 AM EDT Office Visit [facility] ADULT DENTAL [address] [place] [address] Amanda Fernandez [address] [place] [address] Scheduled Referrals Name Type Priority Associated Diagnoses Orde r Schedule Referral to Neurology Outpatient Referral Urgent Parkinsonism, unspecified Parkinsonism type (CMS/HCC) Expected: 04/15/2024 (Approximate), Expires: 04/15/2025 documented as of this encounter Visit Diagnoses Diagnosis Parkinsonism, unspecified Parkinsonism type (CMS/HCC)- Primary documented in this encounter Additional Health Concerns Assessment Noted Time PHQ-9 Depression Total Score: 0 01/22/20 24 10:22 AM EST documented as of this encounter Care Teams Hairspring I Inspector Relationship Specialty Start Date End Date Jaida Martin DO [address] [place] [address] PCP - General Family Medicine 03/02/18 Pamela Andres Government GuardBuilding Superintendent 01/14/24 documented as of this encounter
--- OUTSIDE RECORDS SUMMARY | 2024-05-06 08:53 | XMS_ITS | Encounter Summary ---
Author Organization [employer] Address [address] [facility] [address] [place] [address] Care Team Providers Care Deal Architect Name Role Phone VeronicaJaida Primary Care Provider Encounter Details Date Type Department Care Team (Latest Contact Info) Description 04/20/2024 Travel Social History Tobacco Use Types Packs/Day [...] Description 06/15/2024 9:30 AM EDT Clinical Support [facility] MEDICINE [address] [place] [address] 08/01/2024 10:00 AM EDT Office Visit [facility] ADULT DENTAL [address] [place] [address] Jim, Amanda [address] [place] [address] documented as of this encounter Visit Diagnoses Not on filedocumented in this encounter Additional Health Concerns Assessment Noted Time PHQ-9 Depression Total Score: 0 01/22/20 24 10:22 AM EST documented as of this encounter Care Teams Deal Architect Relationship Specialty Start Date End Date Jaida Martin DO [address] [place] [address] PCP - General Family Medicine 03/02/18 Pamela Andres Stone LayerAutoclave Operator 01/14/24 documented as of this encounter
--- OUTSIDE RECORDS SUMMARY | 2024-05-06 08:53 | XMS_ITS | Encounter Summary ---
Author Organization [employer] Address [address] 7[address] [place] [address] Care Team Providers Care Electronic Field Service Engineer Name Role Phone VeronicaJaida Primary Care Provider Encounter Details Date Type Department Care Team (Latest Contact Info) Description 04/21/2024 Outside Procedure [facility] OPTOMETRY [address] [place] [address] Ta, Soha, OD [address] [place] [address] Presbyopia (Primary Dx) Social History Tobacco Use Types [...] Progress Notes * Soha Chappell OD - 04/21/2024 1:44 PM EST MH glasses were dispensed, 2 of 2. documented in this encounter Plan of Treatment Upcoming Encounters Date Type Department Care Team (Late st Contact Info) Description 06/15/2024 9:30 AM EDT Clinical Support [facility] MEDICINE [address] [place] [address] 08/01/2024 10:00 AM EDT Office Visit [facility] ADULT DENTAL [address] [place] [address] Amanda Fernandez [address] [place] [address] documented as of this encounter Visit Diagnoses Diagnosis Presbyopia- Primary documented in this encounter Additional Health Concerns Assessment Noted Time PHQ-9 Depression Total Score: 0 01/22/20 24 10:22 AM EST documented as of this encounter Care Teams Electronic Field Service Engineer Relationship Specialty Start Date End Date Jaida Martin DO [address] [place] [address] PCP - General Family Medicine 03/02/18 Pamela Andres Clarifier OperatorNet Web Developer 01/14/24 documented as of this encounter
--- OUTSIDE RECORDS SUMMARY | 2024-05-06 08:54 | XMS_ITS | Clinical Summary ---
Author Organization [employer] [facility] Address [address] [place] [address] Care Team Providers Care Shaft Mechanic Name Role Phone Unavailable Primary Care Provider Unavailabl e Social History Tobacco Use Types Packs/Day Years Used Date Smoking Tobacco: Never Assessed Comments Unknown Sex and Gender Information Value Date Recorded Sex Assigned at Not on file Legal Sex Female 3:14 PM EST Gender Identity Not on file Sexual Orientation Not on file Plan of Treatment Health Maintenance Due Date Last Done Comments Breast Cancer Screening 1965 DTaP,Tdap,and Td Vaccines (1 - Tdap) 07/10/1986 Hepatitis B Vaccines (1 of 3 - 19+ 3-dose series) 07/10/1986 Cervical Cancer Screening: P ap Smear 07/10/1988 Pneumococcal Vaccine: 50+ Ye ars (1 of 1 - PCV) 07/10/2017 Zoster Vaccines (1 of 2) 07/10/2017 COVID-19 [...] patient's age to complete this topic Meningococcal B Vacine Aged Out No lo nger eligible based on patient's age to complete [...]
--- OUTSIDE RECORDS SUMMARY | 2024-05-06 08:54 | XMS_ITS | Encounter Summary ---
Author Organization [employer] Address [address] [facility] 7t [place] [address] Care Team Providers Care Data Security Analyst Name Role Phone Jaida Martin DO Primary Care Provider [phone] Reason for Visit * Reason Onset Date Comments Durable Medical Equipment 10/01/2022 Encounter Details Date Type Department Care Team ([facility] st Contact Info) Description 10/01/2022 Telephone [facility] MEDICINE [address] [place] [address] Jaida Martin DO [address] [place], [place] [phone] Durable Medical Equipment Social History Tobacco Use [...] Description 06/15/2024 9:30 AM EDT Clinical Support [facility] MEDICINE [address] [place] [address] 08/01/2024 10:00 AM EDT Office Visit [facility] ADULT DENTAL [address] [place] [address] Jim, Amanda [address] [place] [address] documented as of this encounter Visit Diagnoses Not on filedocumented in this encounter Care Teams Data Security Analyst Relationship Specialty Start Date End Date Jaida Martin DO [address] [place] [address] PCP - General Family Medicine 03/02/18 Pamela Andres Body MakerRegulatory Scientist 01/14/24 documented as of this encounter
--- OUTSIDE RECORDS SUMMARY | 2024-05-06 08:54 | XMS_ITS | Encounter Summary ---
Author Organization [employer] Address [address] [place] [address] Care Team Providers Care Flooring Salesperson Name Role Phone VeronicaJaida Primary Care Provider [phone] Reason for Visit * Reason Comments Med Refill Encounter Details Date Type Department Care Team ([facility] st Contact Info) Description 05/14/2023 Refill [facility] MEDICINE [address] [place], [place] [phone] Suni Quintanilla MD [address] [place], [place] [phone] Social History Tobacco Use Types Packs/Day Years [...] Description 06/15/2024 9:30 AM EDT Clinical Support [facility] MEDICINE [address] [place] [address] 08/01/2024 10:00 AM EDT Office Visit [facility] ADULT DENTAL [address] [place] [address] Amanda Fernandez [address] [place] [address] documented as of this encounter Visit Diagnoses Not on filedocumented in this encounter Care Teams Flooring Salesperson Relationship Specialty Start Date End Date Jaida Martin DO [address] [place] [address] PCP - General Family Medicine 03/02/18 Pamela Andres Manager Of CaseMeat Packer 01/14/24 documented as of this encounter
--- OUTSIDE RECORDS SUMMARY | 2024-05-06 08:54 | XMS_ITS | Encounter Summary ---
Author Organization [employer] [facility] Address [address] [facility] 7t [place] [address] Care Team Providers Care Chargeback Analyst Name Role Phone Jaida Martin DO Primary Care Provider [phone] Reason for Visit * Reason Onset Date Comments requesting a call back 03/07/2022 Encounter Details Date Type Department Care Team (Late st Contact Info) Description 03/07/[address] [facility] MEDICINE [address] [place] [phone] Jaida Martin DO [address] [place] [phone] requesting a call back Social History Tobacco [...] a call back Please contact pt at [phone] documented in this encounter Plan of Treatment Upcoming Encounters Date Type Department Care Team (Late st Contact Info) Description 06/15/2024 9:30 AM EDT Clinical Support [facility] MEDICINE [address] [place] [phone] 08/01/2024 10:00 AM EDT Office Visit [facility] ADULT DENTAL [address] [place], [place] [phone] Amanda Fernandez [address] [place] [address] documented as of this encounter Visit Diagnoses Not on filedocumented in this encounter Care Teams Chargeback Analyst Relationship Specialty Start Date End Date Jaida Martin DO [address] [place] [address] PCP - General Family Medicine 03/02/18 Pamela Andres Pearl RestorerWash Helper 01/14/24 documented as of this encounter
--- OUTSIDE RECORDS SUMMARY | 2024-05-06 08:54 | XMS_ITS | Encounter Summary ---
Author Organization [employer] [facility] Address [address] [facility] 7t [place] [address] Care Team Providers Care Professor Of English Name Role Phone VeronicaJaida Primary Care Provider Encounter Details Date Type Department Care Team (Late Contact Info) Description 12/03/2022 Abstract [facility] MEDICINE [address] [place] [address] Justine Huggins Social History Tobacco Use Types [...] Description 06/15/2024 9:30 AM EDT Clinical Support [facility] MEDICINE [address] [place], [place] [phone] 08/01/2024 10:00 AM EDT Office Visit [facility] ADULT DENTAL [address] [place], [place] [phone] Amanda Fernandez [address] [place] [address] documented as of this encounter Procedures Procedure Name Priority Date/Time Associated Diagnosis Comments HM PAP/HPV Routine 12/21/2019 documented in this encounter Results * Pap Smear (12/21/2019) Pap Negative for intraephithelial lesion or malignancy Negative for intraephithelial lesion or malignancy, Other HPV Undetected Historical Provider HEALTH MAINTENANCE Final Result documented in this encounter Visit Diagnoses Not on filedocumented in this encounter Care Teams Professor Of English Relationship Specialty Start Date End Date Jaida Martin DO [address] [place] [address] PCP - General Family Medicine 03/02/18 Pamela Andres Drip Box TenderHead Turning Machine Operator 01/14/24 documented as of this encounter
--- OUTSIDE RECORDS SUMMARY | 2024-05-06 08:54 | XMS_ITS | Encounter Summary ---
Author Organization [facility] [facility] Address [address] [facility] 7t [place] [address] Care Team Providers Care Preschool Teacher Name Role Phone LachoJaida garcia Primary Care Provider Encounter Details Date Type Department Care Team (Late Contact Info) Description 03/14/2022 Orders Only [facility] MEDICINE [address] [place] [address] Stephanie Apodaca LPN Social History Tobacco Use [...] Department Care Team (Late Contact Info) Description 06/15/2024 9:30 AM EDT Clinical Support [facility] MEDICINE [address] [place], [place] [phone] 08/01/2024 10:00 AM EDT Office Visit [facility] ADULT DENTAL [address] [place] [address] Amanda Fernandez [address] [place] [address] documented as of this encounter Visit Diagnoses Not on filedocumented in this encounter Care Teams Preschool Teacher Relationship Specialty Start Date End Date Jaida Martin DO [address] [place] [address] PCP - General Family Medicine 03/02/18 Pamela Andres Service Tech/WelderLife Advisor 01/14/24 documented as of this encounter
--- OUTSIDE RECORDS SUMMARY | 2024-05-06 08:54 | XMS_ITS | Encounter Summary ---
Author Organization [employer] [facility] Address [address] [facility] 7t [place] [address] Care Team Providers Care Stuffed Casing Tier Name Role Phone Jaida Martin DO Primary Care Provider Encounter Details Date Type Department Care Team (Latest Contact Info) Description 03/12/2020 Abstract [facility] CONVERSIONS Dental, Provider, DDS Social History Tobacco [...] Care Team ( st Contact Info) Description 06/15/2024 9:30 AM EDT Clinical Support [facility] MEDICINE [address] [place] [address] 08/01/2024 10:00 AM EDT Office Visit [facility] ADULT DENTAL [address] [place] [address] Jim, Amanda [address] [place] [address] documented as of this encounter Visit Diagnoses Not on filedocumented in this encounter Care Teams Stuffed Casing Tier Relationship Specialty Start Date End Date Jaida Matrin DO [address] [place] [address] PCP - General Family Medicine 03/02/18 Pamela Andres Field Talent Qualification SpecialistTiedown Operator 01/14/24 documented as of this encounter
--- OUTSIDE RECORDS SUMMARY | 2024-05-06 08:54 | XMS_ITS | Encounter Summary ---
Author Organization [employer] [facility] Address [address] [facility] 7t [place] [address] Care Team Providers Care Director Account Management Name Role Phone VeronicaJaida Primary Care Provider Encounter Details Date Type Department Care Team (Late st Contact Info) Description 02/04/2022 Abstract [facility] ADULT DENTAL [address] [place] [address] Dental, Provider, DDS Social History Tobacco Use [...] Description 06/15/2024 9:30 AM EDT Clinical Support [facility] MEDICINE [address] [place] [address] 08/01/2024 10:00 AM EDT Office Visit [facility] ADULT DENTAL [address] [place] [address] Amanda Fernandez [address] [place] [address] documented as of this encounter Procedures Procedure [...] filedocumented in this encounter Care Teams Director Account Management Relationship Specialty Start Date End Date Jaida Martin DO [address] [place] [address] PCP - General Family Medicine 03/02/18 Pamela Andres Surfacing TechnicianHistoric Sites Registrar 01/14/24 documented as of this encounter
--- OUTSIDE RECORDS SUMMARY | 2024-05-06 08:54 | XMS_ITS | Encounter Summary ---
Author Organization [employer] Address [address] [place] [address] Care Team Providers Care Control Clerk Head Name Role Phone Jaida Martin DO Primary Care Provider [phone] Reason for Visit * Reason Onset Date Comments Nurse Triage 12/22/2023 Encounter Details Date Type Department Care Team ([facility] Contact Info) Description 12/22/2023 Telephone [facility] MEDICINE [address] [place] [address] Jaida Martin DO [address] [place], [place] [phone] Nurse Triage Social History Tobacco Use Types [...] 12/22/2023 4:50 PM EDT Triage call with [employer] [place] [id number] Pt reports episode of shortness of breath while picking up object. BP today is 134/86. Pt is takingBP medication Diovan as prescribe. Pt reports no other symptoms at time of call and SOB was momentary. Pt is offered to come to [facility] but, reports no transportation. TSK [...] Reason: Caller denied all higher acuity questions Bhutanese Speaker (accepted american indian studies professor) documented in this encounter Plan of Treatment Upcoming Encounters Date Type Department Care Team (Late st Contact Info) Description 06/15/2024 9:30 AM EDT Clinical Support [facility] MEDICINE [address] [place] [address] 08/01/2024 10:00 AM EDT Office Visit [facility] ADULT DENTAL [address] [place] [address] JimAmanda [address] [place] [address] documented as of this encounter Visit Diagnoses Not on filedocumented in this encounter Additional Health Concerns Assessment Noted Time PHQ-9 Depression Total Score: 4 08/17/19 24 12:18 PM EDT documented as of this encounter Care Teams Control Clerk Head Relationship Specialty Start Date End Date Jaida Martin DO [address] [place] [address] PCP - General Family Medicine 03/02/18 Pamela Andres Stamp CollectorCatalytic Case Operator 01/14/24 documented as of this encounter
--- OUTSIDE RECORDS SUMMARY | 2024-05-06 08:54 | XMS_ITS | Clinical Summary ---
Author Organization [facility] Address [address] [place] [address] Care Team Providers Care Tools Administrator Name Role Phone Jaida Martin Primary Care Provider [phone]- [phone] Allergies No known active allergies Medications cloNIDine [...] mouth 2 times a day with meals. 3 Active Pamelor 75 mg capsule Take 75 mg by mouth nightly. Active rosuvastatin (CRESTOR) 20 mg tablet Take 20 mg by mouth once a day. Active valsartan (DIOVAN) 160 mg tablet Take 160 mg by mouth once a day. Active thiamine HCl (VITAMIN B1) 100 mg tablet Take 100 mg by mouth once a day. 3 Active aspirin 81 mg EC tablet Take 1 tablet by mouth once a day. 3 Active cholecalciferol (VITAMIN D3) 2,000 unit capsule Take 1 capsule by mouth once a day. 3 Active CYANOCOBALAMIN, VITAMIN B-12, INJECTION Inject 1,000 mcg as directed once every 8 weeks. Active levothyroxine (SYNTHROID, LEVOTHROID) 125 mcg tablet Take 125 mcg by mouth daily. Active ARIPiprazole (ABILIFY) 15 mg tablet Take 15 mg by mouth once a day. Active Mounjaro 7.5 mg/0.5 mL pen injector Inject 7.5 mg under the skin per week. 4 Active clonazePAM (KlonoPIN) 1 mg tablet Take [...] mouth 2 (two) times a day. 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 Balance problem 01/28/2023 Facial numbness 01/28/2023 Low back pain potentially associated with radicu lopathy 01/28/2023 Vitamin D deficiency 01/28/2023 Encounters Date Type Department Care Team Description 03/23/2024 Telephone [facility] Neurology [address] [place] [address] [phone] Nancy Petty MD 03/08/2024 9:00 AM EST Follow-Up [facility] Neurology [address] [place] [phone] Nancy Petty MD Parkinsonism, unspecified Parkinsonism type [...] Info) Description 09/16/2024 8:30 AM EDT Follow-Up [facility] Neurology [address] [place] [phone] Nancy Petty MD [address] [place] [address] Health Maintenance Due Date Last Done Comments [...] history exists Procedures * Due to [place] law, this organization might not be sharing negative HIV tests. Procedure Name Priority Date/Time Associated Diagnosis Comments COMPREHENSIVE METABOLIC PANEL Routine 12/30/2023 9:51 AM EDT Intention tremor from Last 3 Months or Most Recently Relevant to Health Maintenance Results * Due to [place] law, this organization might not be sharing negative HIV tests. * (ABNORMAL) Comprehensive Metabolic Panel (12/30/2023 9:51 AM EDT) NA 140 135 - 145 mmol/L 12/30/2023 11:25 AM [facility] K 3.6 3.5 - 5.3 mmol/L 12/30/2023 11:25 AM [facility] Cl 102 98 - 107 mmol/L 12/30/2023 11:25 AM [facility] CO2 27 22 - 32 mmol/L 12/30/2023 11:25 AM [facility] Anion Gap 11 5 - 15 12/30/2023 11:25 AM [facility] Glucose 171(H) 65 - 99 mg/dL 12/30/2023 11:25 AM [facility] Creatinine 0.41(L) 0.50 - 1.20 mg/dL 12/30/2023 11:25 AM [facility] Calcium 9.0 8.6 - 10.5 mg/dL 12/30/2023 11:25 AM [facility] Total Protein 7.6 6.0 - 8.0 g/dL 12/30/2023 11:25 AM [facility] Albumin 4.2 3.5 - 5.2 g/dL 12/30/2023 11:25 AM [facility] Bilirubin, Total 0.3 0.2 - 1.2 mg/dL 12/30/2023 11:25 AM [facility] Alkaline Phosphatase 152(H) 35 - 129 U/L 12/30/2023 11:25 AM [facility] AST 19 10 - 40 U/L 12/30/2023 11:25 AM [facility] ALT 12 10 - 40 U/L 12/30/2023 11:25 AM [facility] BUN 12 7 - 23 mg/dL 12/30/2023 11:25 AM EDT [facility] eGFR >90 >=60 mL/min/1 .73m2 12/30/2023 11:25 AM EDT [facility] Comment:The estimated glomer [...] - 4.2 g/dL 12/30/2023 11:25 AM EDT [facility] A/G Ratio 1.2(L) 1.5 - 3.0 12/30/2023 11:25 AM EDT [facility] Blood Structure of peripheral vein / Unknown Venipuncture / Unknown 12/30/2023 9:51 AM EDT 12/30/2023 10:39 AM EDT Nancy Petty MD LAB BLOOD ORDERABLES [facility] Result [facility] [address] [place] [address], from Last 3 Months or Most Recently Relevant to Health Maintenance Insurance [facility] Care Teams Tools Administrator Relationship Specialty Start Date End Date Jaida Martin [address] [place] [phone] PCP - General Family Medicine 01/20/23
--- OUTSIDE RECORDS SUMMARY | 2024-05-06 08:54 | XMS_ITS | Encounter Summary ---
Author Organization [facility] Address [address] [facility] 7[address] [place] [address] Care Team Providers Care Game Farm Supervisor Name Role Phone Jaida Martin DO Primary Care Provider [phone] Reason for Visit * Reason Onset Date Comments Referral 05/05/2022 Encounter Details Date Type Department Care Team ([facility] Contact Info) Description 05/05/2022 Telephone [facility] [address] [place], [place] [phone] Jaida Martin DO [address] [place] [address] Referral Social History Tobacco Use Types Packs/Day [...] AM EST Noted pt. Last seen by [facility] April 2021 for gastroparesis and acid reflux. TC placed to pt. And reports she attempted to schedule f/up appt. But was advised they need a new R number to approve more visits. Please send R number to [facility], thank you! * Telephone Encounter - Sugar Vazquez - 05/05/2022 9:30 AM EST Tc from pt requesting a referral Location : [facility] Specialty: Gastrology Date and time : N/A documented in this encounter Plan of Treatment Upcoming Encounters Date Type Department Care Team (Late st Contact Info) Description 06/15/2024 9:30 AM EDT Clinical Support [facility] [address] [place] [address] 08/01/2024 10:00 AM EDT Office Visit [facility] ADULT D[facility]AL [address] [place] [address] Amanda Fernandez [address] [place] [address] documented as of this encounter Visit Diagnoses Not on filedocumented in this encounter Care Teams Game Farm Supervisor Relationship Specialty Start Date End Date Jaida Martin DO [address] [place] [address] PCP - General Family Medicine 03/02/18 Pamela Andres Clerical AdministratorLiberal Arts Teacher 01/14/24 documented as of this encounter
--- OUTSIDE RECORDS SUMMARY | 2024-05-06 08:54 | XMS_ITS | Encounter Summary ---
Author Organization [facility] Address [address] [facility] 7[address] [place] [address] Care Team Providers Care Parcel Contractor Name Role Phone Sheila Martinfer Primary Care Provider [phone] Reason for Visit * Reason Onset Date Comments Appointment 10/22/2022 Encounter Details Date Type Department Care Team ([facility] st Contact Info) Description 10/22/2022 Telephone [facility] ADULT DENTAL [address] [place], [place] [phone] Campbell Nguyễn DDS [address] [place], [place] [phone] Appointment Social History Tobacco Use Types Packs/Day [...] Description 06/15/2024 9:30 AM EDT Clinical Support [facility] [address] [place] [address] 08/01/2024 10:00 AM EDT Office Visit [facility] [address] [place], [place] [phone] Jim Amanda [address] [place], [place] [phone] documented as of this encounter Visit Diagnoses Not on filedocumented in this encounter Care Teams Parcel Contractor Relationship Specialty Start Date End Date Jaida Martin DO [address] [place], [place] [phone] PCP - General Family Medicine 03/02/18 Pamela Andres CcnaDrop Forger Helper 01/14/24 documented as of this encounter
--- OUTSIDE RECORDS SUMMARY | 2024-05-06 08:54 | XMS_ITS | Encounter Summary ---
Author Organization [facility] Address [address] [facility] 7[address] [place] [address] Care Team Providers Care Regulatory Submissions Associate Name Role Phone Jaida Martin DO Primary Care Provider Encounter Details Date Type Department Care Team (Late st Contact Info) Description 03/12/2022 Orders Only [facility] MEDICINE [address] [place] [address] Jaida Martin DO [address] [place], [place] [phone] Vitamin B12 deficiency (Primary Dx) Social History [...] Description 06/15/2024 9:30 AM EDT Clinical Support [facility] [address] [place] [address] 08/01/2024 10:00 AM EDT Office Visit [facility] ADULT DENTAL [address] [place], [place] [phone] Amanda Fernandez [address] [place] [address] documented as of this encounter Procedures Procedure [...] EST) Sodium 146(H) 135 - 145 mmol/L LABS Potassium 3.0(L) 3.3 - 5.1 mmol/L LABS Chloride 107 96 - 108 mmol/L LABS Carbon Dioxide 30(H) 22 - 29 mmol/L LABS Anion Gap 12 12 - 20 LABS Urea Nitrogen (BUN) 9 9 - 16 mg/dL LABS Creatinine, Serum 0.54 0.5 - 1.4 mg/dL LABS Creatinine Clr Calc Pharmacy 148.7 LABS Comment:Provided height and weight: 162.56 cm,115.666 kg.eGFR (calculated from the MDRD study equation) and eCrCl(calculated from the Cockcroft-Gault equation) are based ondifferent parameters and may not yield comparable results.If eCrCl result is absurd, please check patient'sheight/weight. Estimated Glomerular Filt Rate >60 LABS Comment:NOTE: For -Am erican individuals, multiply the result by 1.210.Chronic Kidney Disease: Estimated GFR < 60 mL/min/1.93x4Orxhql Kidney Disease: Estimated GFR < 15 mL/min/1.73m2 Glucose 117(H) 60 - 115 mg/dL LABS Calcium 9.1 8.4 - 10.2 mg/dL LABS Bilirubin, Total 0.4 0.0 - 1.0 mg/dL LABS Aspartate Amino Transferase 19 5 - 31 U/L LABS Alanine Aminotransferase 10 0 - 31 U/L LABS Total Protein 6.9 6.5 - 8.0 g/dL LABS Albumin Level 3.8 3.5 - 5.0 g/dL LABS Alkaline Phosphatase 126(H) 39 - 117 U/L LABS 03/13/2022 7:42 AM EST 03/13/2022 7:44 AM EST us [facility] External Provider LAB BLO OD ORDERABLES Final Result LABS [address] [place] [phone] * (ABNORMAL) CBC auto differential (03/13/2022 7:42 AM EST) White Blood Count 10.3 4.8 - 10.8 X10*3/uL LABS Red Blood Count 4.24 4.20 - 5.50 X10*6/uL LABS Hemoglobin 11.0(L) 12.0 - 16.0 g/dl LABS Hematocrit 36.1(L) 37.0 - 47.0 % LABS Mean Corpuscular Volume 85.1 80.0 - 98.0 fL LABS Mean Corpuscular Hemoglobin 25.9(L) 27.0 - 33.0 pg LABS Mean Corpuscular HGB Conc 30.5(L) 31.0 - 35.0 g/dl LABS Red Cell Distribution Width 15.9 11.0 - 16.0 % LABS Platelet Count 266 160 - 400 X10*3/uL LABS Mean Platelet Volume 10.1 9.4 - 12.3 fL LABS Neutrophils Percent Auto 61.8 45 - 73 % LABS Imm Gran Pct Auto 0.6(H) 0.0 - 0.4 % LABS Lymphocytes Percent Auto 28.1 20 - 40 % LABS Monocytes Percent Auto 7.3 2 - 11 % LABS Eosinophils Percent Auto 1.8 0 - 4 % LABS Basophils Percent Auto 0.4 0 - 2 % LABS NRBC Pct Auto 0.0 0.0 - 0.2 /100WBC LABS Neutrophils Absolute Auto 6.4 2.0 - 8.3 x10*3/uL LABS Imm Gran Abs Auto 0.06(H) 0.00 - 0.03 X10*3/uL LABS Lymphocytes Absolute Auto 2.9 1.2 - 4.9 X10*3/uL LABS Monocytes Absolute Auto 0.8 0.1 - 1.2 X10*3/uL LABS Eosinophils Absolute Auto 0.2 0.0 - 0.4 X10*3/uL LABS Basophils Absolute Auto 0.0 0.0 - 0.2 X10*3/uL LABS NRBC Abs Auto 0.000 0.0 - 0.012 X10*3/uL LABS 03/13/2022 7:42 AM EST 03/13/2022 7:44 AM EST [facility] External Provider LAB BLO OD ORDERABLES Final Result Performing Organization Address [facility]/ZIP Co de Phone Number LABS [address] [place] [phone] * (ABNORMAL) GLUCOSE, WHOLE BLOOD (03/13/2022 5:16 AM EST) Glucose, Whole Blood 241(H) 60 - 115 mg/dL LABS Comment:METER #: [id number] 03/13/2022 5:16 AM EST 03/13/2022 5:20 AM EST [facility] External Provider LAB BLO OD ORDERABLES Final Result LABS [address] [place] [phone] documented in this encounter Visit Diagnoses Diagnosis Vitamin B12 deficiency- Primary Other B-complex deficiencies documented in this encounter Care Teams Regulatory Submissions Associate Relationship Specialty Start Date End Date Jaida Martin DO [address] [place] [address] PCP - General Family Medicine 03/02/18 Pamela Andres Gel CoaterPlc Controls Engineer 01/14/24 documented as of this encounter
--- OUTSIDE RECORDS SUMMARY | 2024-05-06 08:54 | XMS_ITS | Encounter Summary ---
Author Organization [employer] [facility] Address [address] [facility] [address]t [place] [address] Care Team Providers Care Global Implementation Manager Name Role Phone Jaida Martin DO Primary Care Provider Encounter Details Date Type Department Care Team (Latest Contact Info) Description 06/04/2021 Abstract [facility] CONVERSIONS Dental, Provider, DDS Social History [...] Description 06/15/2024 9:30 AM EDT Clinical Support [facility] MEDICINE [address] [place] [address] 08/01/2024 10:00 AM EDT Office Visit [facility] ADULT DENTAL [address] [place] [address] Jim, Amanda [address] [place] [address] documented as of this encounter Visit Diagnoses Not on filedocumented in this encounter Care Teams Global Implementation Manager Relationship Specialty Start Date End Date Jaida Martin DO [address] [place] [address] PCP - General Family Medicine 03/02/18 Pamela Andres Tone Cabinet AssemblerRibbon Cutter 01/14/24 documented as of this encounter
--- OUTSIDE RECORDS SUMMARY | 2024-05-06 08:54 | XMS_ITS | Referral Summary ---
Author Organization [facility] Address [address] [place] [address] Care Team Providers Care Long Lines Operator Name Role Phone Jaida Martin Primary Care Provider [phone]- [phone] Encounters Date Type Department Care Team Description 03/23/2024 Telephone [facility] Neurology [address] [place] [phone] Nancy Petty MD 03/08/2024 9:00 AM EST Follow-Up [facility] Neurology [address] [place] [phone] Nancy Petty MD Parkinsonism, unspecified Parkinsonism type [...] Info) Description 09/16/2024 8:30 AM EDT Follow-Up [facility] Neurology [address] [place] [phone] Nancy Petty MD [address] [place] [phone] Procedures * Due to [place] [employer] law, this organization might not be sharing negative HIV tests. Procedure Name Priority Date/Time Associated Diagnosis Comments COMPREHENSIVE METABOLIC PANEL Routine 12/30/2023 9:51 AM EDT Intention tremor from Last 3 Months or Most Recently Relevant to Health Maintenance Results * Due to [facility] law, this organization might not be sharing negative HIV tests. * (ABNORMAL) Comprehensive Metabolic Panel (12/30/2023 9:51 AM EDT) NA 140 135 - 145 mmol/L 12/30/2023 11:25 AM [facility] K 3.6 3.5 - 5.3 mmol/L 12/30/2023 11:25 AM [facility] Cl 102 98 - 107 mmol/L 12/30/2023 11:25 AM [facility] CO2 27 22 - 32 mmol/L 12/30/2023 11:25 AM [facility] Anion Gap 11 5 - 15 12/30/2023 11:25 AM [facility] Glucose 171(H) 65 - 99 mg/dL 12/30/2023 11:25 AM [facility] Creatinine 0.41(L) 0.50 - 1.20 mg/dL 12/30/2023 11:25 AM [facility] Calcium 9.0 8.6 - 10.5 mg/dL 12/30/2023 11:25 AM [facility] Total Protein 7.6 6.0 - 8.0 g/dL 12/30/2023 11:25 AM [facility] Albumin 4.2 3.5 - 5.2 g/dL 12/30/2023 11:25 AM [facility] Bilirubin, Total 0.3 0.2 - 1.2 mg/dL 12/30/2023 11:25 AM [facility] Alkaline Phosphatase 152(H) 35 - 129 U/L 12/30/2023 11:25 AM [facility] AST 19 10 - 40 U/L 12/30/2023 11:25 AM [facility] ALT 12 10 - 40 U/L 12/30/2023 11:25 AM [facility] BUN 12 7 - 23 mg/dL 12/30/2023 11:25 AM [facility] eGFR >90 >=60 mL/min/1 .73m2 12/30/2023 11:25 AM T [facility] Comment:The estimated glomer [...] 2.1 - 4.2 g/dL 12/30/2023 11:25 AM T [facility] A/G Ratio 1.2(L) 1.5 - 3.0 12/30/2023 11:25 AM EDT [facility] Blood Structure of peripheral vein / Unknown Venipuncture / Unknown 12/30/2023 9:51 AM EDT 12/30/2023 10:39 AM EDT Nancy Petty MD LAB BLOOD ORDERABLES Fi nal Result [facility] [address] [place] [address], from Last 3 Months or Most Recently Relevant to Health Maintenance Insurance [employer] Care Teams Long Lines Operator Relationship Specialty Start Date End Date Jaida Martin [address] [place] [phone] PCP - General Family Medicine 01/20/23
--- OUTSIDE RECORDS SUMMARY | 2024-05-06 08:54 | XMS_ITS | Encounter Summary ---
Author Organization [employer] Address [address] [facility] 7t [place] [address] Care Team Providers Care Organizational Effectiveness Director Name Role Phone VeronicaJaida Primary Care Provider + [phone] Reason for Visit * Reason Comments Med Refill Encounter Details Date Type Department Care Team ([facility] st Contact Info) Description 02/03/2023 Refill [facility] [address] [place], [place] [phone] Lakshmi Jackson MD [address] [place], [place] [phone] Anemia, unspecified type Social History Tobacco Use [...] Description 06/15/2024 9:30 AM EDT Clinical Support [facility] MED[facility] [address] [place] [address] 08/01/2024 10:00 AM EDT Office Visit [facility] ADULT DENTAL [address] [place] [address] Amanda Fernandez [address] [place] [address] documented as of this encounter Visit Diagnoses Diagnosis Anemia, unspecified type documented in this encounter Care Teams Organizational Effectiveness Director Relationship Specialty Start Date End Date Jaida Martin DO [address] [place] [address] PCP - General Family Medicine 03/02/18 Pamela Andres Railroad Wheels And Axles InspectorShot Bagger 01/14/24 documented as of this encounter
--- OUTSIDE RECORDS SUMMARY | 2024-05-06 08:54 | XMS_ITS | Clinical Summary ---
Author Organization [employer] Address [address] [place] [address] Care Team Providers Care Distribution Field Engineer Name Role Phone VeronicaJaida Primary Care Provider [phone] Allergies No known active allergies Medications * This document contains information received from the source organization and may not represent a complete record from that organization. ProAir HFA 108 (90 Base) MCG/ACT inhaler INHALE 2 PUFFS BY MOUTH EVERY 4 TO 6 HOURS NEEDED (for asthma) Active Alcohol Swabs (Alcohol Prep) 70 % pads USE DIRECTED TWICE DAILY Active clonazePAM (KlonoPIN) 1 MG tablet TAKE 1 TABLET BY MOUTH THREE TIMES DAILY IN THE MORNING, EVENING, AND BEDTIME NEEDED Active cloNIDine (Catapres) 0.1 MG tablet TAKE 1 TABLET BY MOUTH EVERY EVENING Active furosemide (Lasix) 20 MG tablet TAKE 1 TABLET BY MOUTH EVERY MORNING Active gabapentin (Neurontin) 400 MG capsule TAKE 1 CAPSULE BY MOUTH THREE TIMES DAILY IN THE MORNING, EVENING, AND BEDTIME Active Baqsimi Two Pack 3 MG/DOSE nasal powder USE 1 SPRAY (3MG) IN ONE NOSTRIL FOR A PATIENT WITH SEVERE HYPOGLYCEMIA WHO IS NOT RESPONSIVE AND UNABLE SELF-TREAT WITH GLUCOSE. AFTERWARDS TURN ON SIDE. MAY REPEAT IN 15MINUTES IF PATIENT DOES NOT RESPOND. Active FREESTYLE LITE test strip TEST BLOOD SUGAR FIVE TIMES DAILY Active Pentips 32G X 4 MM misc USE DIRECTED TWICE DAILY Active HumuLIN R U-500 KWIKPEN 500 UNIT/ML CONCENTRATED injection Inject 60 Units under the skin 2 times daily. Active TRUEplus Lancets 33G [facility] [place] BLOOD SUGAR 4 TIMES A DAY Active melatonin 5 MG tablet TAKE 1 TO 2 TABLETS BY MOUTH AT BEDTIME NEEDED Active nortriptyline (Pamelor) 75 MG capsule TAKE 1 CAPSULE BY MOUTH AT BEDTIME Active propranolol (Inderal) 80 MG tablet TAKE 1 TABLET BY MOUTH TWICE DAILY IN THE MORNING AND IN THE EVENING Active Reguloid 57.6 % powder DISSOLVE 1 TABLESPOONFUL IN 8 OUNCES WATER AND DRINK TWICE DAILY DIRECTED Active ARIPiprazole (Abilify) 15 MG tablet Take 15 mg by mouth in the morning. Active Spiriva Respimat 2.5 MCG/ACT inhaler INHALE 2 PUFFS BY MOUTH EVERY DAY Active fluticasone furoate (Arnuity Ellipta) 200 MCG/ACT inhaler Inhale 1 puff Once per day. Rinse mouth with water after use to reduce aftertaste and incidence of candidiasis. Do not swallow. 1 each 024 2024 Active acetaminophen (Tylenol 8 Hour) 650 MG ER tablet Take 1 tablet (650 mg) by mouth every 8 (eight) hours if needed for mild pain. Do not crush, chew, or split. 60 tablet 3 024 2024 Active Diclofenac Sodium 1 % gel Please use as needed for pain up to 4x daily 150 g 3 Active glucose 4 g chewable tablet CHEW 4 TABLETS NEEDED FOR low blood sugar (LESS THAN 70mg/dL). TEST BLOOD SUGAR AFTER 15 MINUTES IF <70 REPEAT 90 tablet 4 Active Continuous Glucose Sensor (FreeStyle Ortiz 2 Sensor) [facility] Take 1 tablet by mouth Once per day. Active albuterol (2.5 MG/3ML) 0.083% nebulizer solution INHALE 1 AMPULE USING A NEBULIZER EVERY 6 HOURS NEEDED FOR WHEEZING 90 mL 1 Active valsartan (Diovan) 160 MG tabletIndications:H ypertension, unspecified type TAKE 1 TABLET BY MOUTH EVERY MORNING 90 tablet 1 024 Active Aspirin Low Dose 81 MG EC tabletIndications:H yperlipidemia, unspecified hyperlipidemia type TAKE 1 TABLET BY MOUTH EVERY MORNING 90 tablet 3 024 Active cyanocobalamin (Vitamin B-12) 1000 MCG/ML injectionIndication s:B12 deficiency INJECT 1 ML INTRAMUSCULARLY EVERY OTHER MONTH 1 mL 5 024 Active levothyroxine (Synthroid, Levoxyl) 125 MCG tabletIndications:H ypothyroidism, unspecified type TAKE 1 TABLET BY MOUTH EVERY MORNING 90 tablet 3 024 Active cholecalciferol (D3 Super Strength) 50 MCG (1999) capsuleIndications: Vitamin D deficiency TAKE 1 CAPSULE BY MOUTH EVERY MORNING 90 capsule 3 024 Active thiamine (Vitamin B-1) 100 MG tabletIndications:A nemia, unspecified type TAKE 1 TABLET BY MOUTH EVERY MORNING 90 tablet 3 024 Active Mounjaro 10 MG/0.5ML solution auto-injector INJECT ONE PEN (=10MG) SUBCUTANEOUSLY ONCE A WEEK DIRECTED 024 Active omeprazole (PriLOSEC) [address] capsuleIndications: Chronic gastroesophageal reflux disease TAKE 1 CAPSULE BY MOUTH EVERY MORNING BEFORE A MEAL 90 capsule 1 024 Active rosuvastatin (Crestor) 20 MG tabletIndications:H yperlipidemia, unspecified hyperlipidemia type TAKE 1 TABLET BY MOUTH AT BEDTIME 90 tablet 1 024 Active docusate sodium (Colace) 100 MG capsuleIndications: Chronic constipation TAKE 1 CAPSULE BY MOUTH TWICE DAILY IN THE MORNING AND IN THE EVENING 180 capsule 1 024 Active Ferrous Sulfate (iron) 325 (65 Fe) MG tabletIndications:A nemia, unspecified type TAKE 1 TABLET BY MOUTH EVERY OTHER DAY IN THE MORNING 45 tablet 1 025 Active lidocaine (Lidoderm) 5 % patch APPLY 1 TO 2 PATCHES TOPICALLY TO AFFECTED AREA(S). LEAVE ON FOR 12 HOURS, OFF FOR 12 HOURS. USE NEEDED FOR MILD PAIN. 60 patch 3 025 Active metFORMIN (Glucophage) 500 MG tabletIndications:T ype 2 diabetes mellitus with other specified complication, with long-term current use of insulin (CMS/HCC) TAKE 2 TABLETS BY MOUTH TWICE DAILY IN THE MORNING AND EVENING 360 tablet 3 025 Active Continuous Glucose Chart Picker (FreeStyle Ortiz 3 [place]) device use as directed 024 Active insulin NPH, Isophane, (HumuLIN N,NovoLIN N) 100 UNIT/ML injection Inject 50 Units under the skin every 12 (twelve) hours. Active carbidopa-levodopa (Sinemet) 25-100 MG tablet Start carbidopa/levodopa (25/100 mg) tabs, take 1 tab twice daily for 3 days then go up to 1 tab 3 times a day as tolerated 025 Active Hospital, Clinic, or Other Facility Administered Medication Ordered Dose Route Frequency Start Date End Date Status cyanocobalamin (Vitamin B-12) injection 1,000 mcgIndications:B12 deficiency 1000 mcg IM Every 8 weeks 02/15/2024 03/13/2025 Active Active Problems Problem Noted Date Diagnosed Date Fractured dental taoism with loss of materi al 06/24/2023 Partial [...] Care managed by Pulmonology Appt 07/10/22 Treating Jennyjenifer Hare + CLIVE PRN Reports she had [...] ambulance. WHO with EMS staff Taken to [facility] for SOB, weakness Will monitor for ED documents. F/u after discharge Fatty liver 06/17/2022 Mild persistent asthma 06/17/2022 Fibromyalgia 06/17/2022 Chronic bilateral low back pain 06/17/2022 Urinary incontinence 06/17/2022 BMI 40.0-44.9, adult 06/17/2022 Dental caries 06/02/2022 Chronic constipation 05/27/2022 Assessment & Plan (05/27/2022 1:56 PM EDT): Debbie prn. Vitamin B12 deficiency 04/03/2022 Obstructive sleep [...] URI + Prednisone use Mounjaro Rx by bulldozer mechanic yesterday is on backorder for at least [...] glucose gel + glucagon Pt seen by manager voice at [facility] this yr [...] Encounters Date Type Department Care Team Description 04/21/2024 Outside Procedure [facility] OPT[facility] [address] [place] [address] Soha Chappell, OD Presbyopia (Primary Dx) 04/20/2024 9:30 AM EST Clinical Support [facility] [address] [place] [address] Tara Hartman, RN Vitamin B12 deficiency [E53.8] 04/20/2024 9:00 AM EST Office Visit [facility] [address] [place] [address] Soha Chappell, OD Regular astigmatism of right eye (Primary Dx) 04/20/2024 Travel 04/15/2024 Orders Only [facility] [address] [place] [phone] Jaida Martin DO Parkinsonism, unspecified Parkinsonism type ([facility]/HCC) (Primary Dx) 04/12/2024 Telephone [facility] [address] [place] [phone] Jaida Martin DO Referral 04/05/2024 Orders Only GENERIC EXTERNAL DATA DEPARTMENT Provider, Generic External Data 04/01/2024 Refill [facility] [address] [place] [address] Jaida Martin DO Type 2 diabetes mellitus with other specified complication, with long-term current use of insulin ([facility]) 03/30/2024 Orders Only GENERIC EXTERNAL DATA DEPARTMENT Provider, Generic External Data 03/29/2024 Refill [facility] [address] [place] [address] Jaida Martin DO Anemia, unspecified type 03/17/2024 9:30 AM EST Office Visit [facility] OPT[facility] [address] [place] [address] Ta, Soha, OD Type 2 diabetes mellitus without ophthalmic manifestations ([facility]/HCC) (Primary Dx); Dry eyes, bilateral; Early cataracts, bilateral; Presbyopia 03/17/2024 Travel 02/29/2024 Refill [facility] [address] [place] [address] Jaida Martin DO Chronic constipation 02/26/2024 Orders Only GENERIC EXTERNAL DATA DEPARTMENT Provider, Generic External Data 02/15/2024 10:00 AM EST Clinical Support [facility] [address] [place] [address] Tara Hartman, RN Vitamin B12 deficiency [E53.8] 02/15/2024 Orders Only [facility] [address] [place] [address] Jaida Martin DO B12 deficiency (Primary Dx) 02/15/2024 Travel from Last 3 Months Immunizations Name Administration [...] 9:30 AM EDT Clinical Support [facility] [address] [place] [address] 08/01/2024 10:00 AM EDT Office Visit [facility] ADULT DENTAL [address] [place] [address] Amanda Fernandez [address] [place] [address] Health Maintenance Due Date Last Done Comments [...] Full Mouth 06/19/2024 06/18/2021 Diabetes: Hemoglobin A1C 06/28/2024 025, 12/28/2023, 10/06/2023, Additional history exists Cervical Cancer Screening 12/20/2024 HPV/Cotest 12/20/2024 12/21/2019 Alcohol/Substance Use Screening 01/21/2025 01/22/2024 Depression Screening 01/21/2025 01/22/2024, 01/22/20 24 SDOH Screening 01/21/2025 01/22/2024 Lipid Panel 03/30/2025 [...] WHOLE BLOOD Routine 02/26/2024 10:03 AM EST BI MAMMOGRAM SCREENING TOMOSYNTHESIS BILATERAL [...] 10:30 AM EST) Only the most recent of2 resultswithin the time period is included. Glucose, Whole Blood 156(H) 60 - 115 mg/dL [facility] Comment:METER #: [id number] 5Testing performed in the Endocrinology Department [address] , [address], [facility]. 04/05/2024 10:3 0 AM EST 04/05/2024 10:36 AM EST us Generic External Data Provider LAB BLOOD ORDERAB LES Final Result [facility] [address] [place] [phone] * (ABNORMAL) Basic Metabolic Panel, Fasting (03/30/2024 8:38 AM EST) Sodium 142 135 - 145 mmol/L [facility] Potassium 3.5 3.3 - 5.1 mmol/L [facility] Chloride 105 96 - 108 mmol/L [facility] Carbon Dioxide 28 22 - 29 mmol/L [facility] Anion Gap 13 12 - 20 [facility] Urea Nitrogen (BUN) 7(L) 9 - 16 mg/dL [facility] Creatinine, Serum 0.55 0.5 - 1.4 mg/dL [facility] Estimated Glomerular Filt Rate >60 [facility] Comment:Chronic Kidney Disea se: Estimated GFR < 60 mL/min/1.39d9Vfwwgg Kidney Disease: Estimated GFR < 15 mL/min/1.73m2 Glucose Fasting 210(H) 60 - 99 mg/dL [facility] Comment:A fasting glucose of 126 mg/dl or greater on more than oneoccasion is considered diagnostic of diabetes. Calcium 8.9 8.4 - 10.2 mg/dL [facility] 03/30/2024 8:38 AM EST 03/30/2024 8:38 AM EST Generic External Data Provider LAB BLOOD ORDERAB LES Final Result Performing Organization Address [facility] Co de Phone Number [facility] [address] [place] [phone] * Direct LDL (03/30/2024 8:38 AM EST) LDL Direct 30 <100 mg/dL [facility] Comment:Greatly elevated Tri glycerides values (>1200 mg/dL)interfere with the dLDL assay.Desirable range <100 mg/dL for primary prevention;<70 mg/dL for patients with CHD or diabetic patientswith > or = 2 CHD risk factors.THIS TEST WAS PERFORMED AT:[facility] [address] [phone] BRASWELL MD 03/30/2024 8:38 AM EST 03/30/2024 8:38 AM EST Generic External Data Provider LAB BLOOD ORDERAB LES Final Result Performing Organization Address City/[facility]/ZIP Co de Phone Number [facility] [address] [place] [phone] * (ABNORMAL) Hemoglobin A1c (03/30/2024 8:38 AM EST) Hemoglobin A1c 7.4(H) <6.0 % [facility] Comment:Hemoglobin A1C Refer ence Range Adults: 4.8 - 6.0 % Non diabetic: < 6.0 % Goal: < 7.0 %Additional Action Suggested: > 8.0 %Note: Hemoglobin A1c results are invalid for patients with abnormal amounts of HbF. Blood transfusions may impact the HbA1c concentration in the patient sample. Estimated Average Glucose 166 mg/dL [facility] Comment:eAG = Estimated ave rage glucose which is %A1C expressed asaverage glucose, using the formula of the [id number] Glucose study (ADAG), Diabetes Care, Vol.31,#8,2007 03/30/2024 8:38 AM EST 03/30/2024 8:38 AM EST Generic External Data Provider LAB BLOOD ORDERAB LES Final Result Performing Organization Address [facility]/ZIP Co de Phone Number [facility] [address] [place] [phone] * Vitamin B12 (03/30/2024 8:38 AM EST) Vitamin B12 320 200 - 900 pg/mL [facility] Comment:NORMAL 200-900 PG/ML INDETERMINATE 160-199 PG/ML DEFICIENT < 160 PG/ML 03/30/2024 8:38 AM EST 03/30/2024 8:38 AM EST Generic External Data Provider LAB BLOOD ORDERAB LES Final Result Performing Organization Address [facility]/ZIP Co de Phone Number [facility] [address] [place] [phone] * (ABNORMAL) Lipid Panel, Standard (03/30/2024 8:38 AM EST) Triglycerides 105 <150 mg/dL [facility] Comment:Desirable Triglyceri de: less than 150 mg/dLBorderline High Triglyceride 150-199 mg/dLHigh Triglyceride: 200-499 mg/dLVery High Triglyceride: greater than or equal to 5OO mg/dL Cholesterol 85 <200 mg/dL [facility] Comment:Desirable Cholestero l: less than 200 mg/dLBorderline High Cholesterol: 200-239 mg/dLHigh Cholesterol: greater than 239 mg/dL LDL Cholesterol Calculated 28 <100 mg/dL [facility] Comment:Desirable LDL: less than 100 mg/dLNear Optimal/Above Optimal LDL: 110- 129 mg/dLBorderline High LDL: 130-159 mg/dLHigh LDL: 160-189 mg/dLVery High LDL: greater than or equal to 190 mg/dL HDL Cholesterol 36(L) >40 mg/dL [facility] Comment:Desirable HDL: great er than 40 mg/dL Note: This HDL assay may give artificially low results in patients with liver disease. 03/30/2024 8:38 AM EST 03/30/2024 8:38 AM EST us Generic External Data Provider LAB BLOOD ORDERAB LES Final Result Performing Organization Address City/State/[facility] Co de Phone Number [facility] [address] [place] [phone] * BI Mammogram Screening Tomosynthesis Bilateral (08/26/2023 9:13 AM EDT) Anatomical Region Laterality Modality Breast Bilateral Mammography 08/26/2023 9:1 3 AM EDT Narrative 08/26/2023 10:28 AM EDT ? [facility] [place] ? [address] ?[place] [address] ? Mammography Report ? Signed ? Patient: HinsonSrinath Silverda ?MR#: [id number] ?? [id number] ? : 1965 ?Acct:[id number] ? Age/Sex: 58 / F ?ADM Date: /26/24 ? Loc: HO.MAMMO ? Attending Emily Martin DO ? Ordering Physician: Jaida Martin DO ?Results: 1N ?? egative ? Date of Service: 08/26/23 ?Follow Up: 1 Year From Orig ?? inal Mammogram ? Procedure(s): MM tomosynthesis screening BI ?? Accession Number(s): [id number] ? cc: Jaida Martin DO ? EXAMINATION: [...] in OV> ? 08/26/23 1024 ? DD/ 2 ? TD/TT: ? Chief Security Officer: ? Procedure Note Wiliam Story - 08/26/2023 [facility] [address] [place] [address] Mammography Report Signed Patient: Kelsea Valdez#: M [id number] : 1965Acct:[id number] Age/Sex: 58 / FADM Date: 08/26/23 Loc: HO.MAMMO Attending Dr: Jaida Martin DO Ordering Physician: Jaida Martinults: 1N egative Date of Service: 08/26/23Follow Up: 1 Year From Orig inal Mammogram Procedure(s): MM tomosynthesis screening BI Accession Number(s): [id number] cc: Jaida Martin DO EXAMINATION: MM SCREENING [...] Roberts MD in OV> 08/26/23 1024 DD/ 0913 TD/TT: Chief Security Officer: us Jaida Martin DO IMG BI PROCEDURES Edited Res ult - Final * Hepatitis Panel, General (07/21/2023 8:47 AM EDT) Hepatitis A IgM Nonreactive Nonreactive [facility] Comment:IgM antibodies to ACOSTA V not detected; does not exclude earlyacute or recovered HAV infection. ~Hepatitis B Surface Antibody REACTIVE Nonreactive [facility] Comment:REACTIVE: > 11.99 mI U/mL Hepatitis B Core Antibody Nonreactive Nonreactive [facility] Hepatitis C Antibody Nonreactive Nonreactive [facility] Comment:Antibodies to HCV no t detected; does not exclude early acuteHCV infection. Hepatitis B Surface Ag Negative Negative [facility] 07/21/2023 8:47 AM EDT 07/21/2023 8:47 AM EDT us Generic External Data Provider LAB BLOOD ORDERAB LES Final Result Performing Organization Address City/[facility]/ZIP Co de Phone Number [facility] [address] [place] [phone] * HIV 1/2 ANTIGEN/ANTIBODY,FOURTH GENERATION W/RFL (03/12/2020 8:49 AM EST) HIV-1/2 ANTIGEN AND ANTIBODIES, 4TH GENERATION W/ REFLEX NON-REACT NEFTALI NON-REACT NEFTALI [facility] Comment: HIV-1 antigen and HIV-1/HIV-2 [...] ? For additional information please refer to http://education.[employer]choo.[employer]Micro/faq/SME755 (This link is being provided for informational/ educational purposes only.) ? The performance of this assay has not been clinically validated in patients less than 2 years old. ?? 03/12/2020 8:49 AM EST us Jaida Martin DO LAB BLOOD ORDERABLES Final R esult [facility] [address] [place] [address], * Pap Smear (12/21/2019) Pap Negative for intraephithelial lesion or malignancy Negative for intraephithelial lesion or malignancy, Other HPV Undetected us Historical Provider HEALTH MAINTENANCE Final Result * Colonoscopy (05/10/2018) Colonoscopy Normal Normal Comment:Repeat in 5 years us Historical Provider HEALTH MAINTENANCE Final Result from Last 3 Months or Most Recently Relevant to Health Maintenance [place] [address] [place] [address] C[facility] MEDICAID STAND ADULT Care Teams Distribution Field Engineer Relationship Specialty Start Date End Date Jaida Martin DO [address] [place] [phone] PCP - General Family Medicine 03/02/18 Pamela Andres Shoe Repair CobblerButton Cutting Machine Operator 01/14/24
--- OUTSIDE RECORDS SUMMARY | 2024-05-06 08:54 | XMS_ITS | Encounter Summary ---
Author Organization [employer] Address [address] [place] [address] Care Team Providers Care Print Decorator Name Role Phone VeronicaJaida Primary Care Provider [phone] Encounter Details Date Type Department Care Team ([facility] st Contact Info) Description 01/16/2023 Abstract [facility] [address] [place] [address] Justine Huggins Social History Tobacco Use Types [...] Description 06/15/2024 9:30 AM EDT Clinical Support [facility] [address] [place] [address] 08/01/2024 10:00 AM EDT Office Visit [facility] ADULT DENTAL [address] [place] [address] Jim, Amanda [address] [place] [address] documented as of this encounter Procedures Procedure Name Priority Date/Time Associated Diagnosis Comments COLONOSCOPY Routine 05/10/2018 documented in this encounter Results * Hm Colonoscopy (05/10/2018) Colonoscopy Normal Normal Comment:Repeat in 5 years us Historical Provider HEALTH MAINTENANCE Final Result documented in this encounter Visit Diagnoses Not on filedocumented in this encounter Care Teams Print Decorator Relationship Specialty Start Date End Date Jaida Martin DO [address] [place] [phone] PCP - General Family Medicine 03/02/18 Pamela Andres Home Care CompanionAgricultural Produce Commission Agent 01/14/24 documented as of this encounter
[2024-05-06 10:11] LABS: MANUAL DIFF FLAG NO
[2024-05-06 10:31] LABS: Basophils Percent Auto 0.3 % (0-2); Eosinophils Absolute Auto 0.2 X10*3/uL (0.0-0.4); Eosinophils Percent Auto 1.7 % (0-4); Hematocrit 36.6 % (37.0-47.0); Hemoglobin 11.1 g/dl (12.0-16.0); Imm Gran Abs Auto 0.03 X10*3/uL (0.00-0.03); Imm Gran Pct Auto 0.3 % (0.0-0.4); Lymphocytes Percent Auto 33.3 % (20-40); Mean Corpuscular HGB Conc 30.3 g/dl (31.0-35.0); Mean Corpuscular Hemoglobin 25.8 pg (27.0-33.0); Mean Corpuscular Volume 84.9 fL (80.0-98.0); Mean Platelet Volume 10.6 fL (9.4-12.3); Monocytes Absolute Auto 0.5 X10*3/uL (0.1-1.2); Monocytes Percent Auto 5.9 % (2-11); Neutrophils Absolute Auto 5.3 x10*3/uL (2.0-8.3); Neutrophils Percent Auto 58.5 % (45-73); Platelet Count 275 X10*3/uL (160-400); Red Blood Count 4.31 X10*6/uL (4.20-5.50); White Blood Count 9.1 X10*3/uL (4.8-10.8)
[2024-05-06 11:21] LABS: Alanine Aminotransferase 14 U/L (0-31); Albumin Level 3.8 g/dL (3.5-5.0); Alkaline Phosphatase 124 U/L (39-117); Anion Gap 12 (12-20); Aspartate Amino Transferase 32 U/L (5-31); Bilirubin Total 0.3 mg/dL (0.0-1.0); Blood Urea Nitrogen 9 mg/dL (9-16); Calcium 8.6 mg/dL (8.4-10.2); Carbon Dioxide 29 mmol/L (22-29); Chloride 104 mmol/L (96-108); Cholesterol 99 mg/dL (<200); Estimated Glomerular Filt Rate > 60; Glucose Random 263 mg/dL (60-115); HDL Cholesterol 43 mg/dL (>40); LDL Cholesterol Calculated 34 mg/dL (<100); Potassium 3.4 mmol/L (3.3-5.1); Sodium 142 mmol/L (135-145); Total Protein 7.9 g/dL (6.5-8.0); Triglycerides 110 mg/dL (<150)
[2024-05-06 11:23] LABS: Thyroid Stimulating Hormone 1.92 uIU/mL (0.32-4.0); Vitamin D 25-OH Total 36.5 ng/mL (>30)
[2024-05-06 11:42] LABS: Folate 5.4 ng/mL (> or = 4.0); Vitamin B12 370 pg/mL (200-900)
[2024-05-09 20:22] LABS: Nortriptyline 94 mcg/L (50-150)
== END 2024-05-06 08:27 | disposition home or self-care (01) ==
LOC: HO.US 08:26
PROVIDERS: Absent Provider Psychiatry & Neurology Psychiatry; PCP Family Medicine; Visit Provider Nurse Practitioner Adult Health
DX: I73.9 Peripheral vascular disease, unspecified (principal); Z79.899 Other long term (current) drug therapy
CPT/HCPCS: 36415; 80053; 80061; 80335; 82306; 82607; 82746; 84443; 85025; 93925

== ENCOUNTER → 2024-05-06 08:29 | Outpatient (BNV) | payer MEDICAID, SELFPAY | PROVIDERS: Absent Provider Psychiatry & Neurology Psychiatry; PCP Family Medicine; Visit Provider Radiology Diagnostic Radiology | DX: I73.9 Peripheral vascular disease, unspecified (principal) | CPT/HCPCS: 93925 ==

== ENCOUNTER 2024-05-19 08:29 | Outpatient (AMB) | payer MEDICAID, SELFPAY ==
--- OUTSIDE RECORDS SUMMARY | 2024-05-19 08:44 | XMS_ITS | Clinical Summary ---
Author Organization [employer] [facility] ity Address [address] [place] [phone] Care Team Providers Care Servicing Rep Name Role Phone Unavailable Primary Care Provider [...]
[2024-05-19 08:53] VITALS: BMI 40.0
--- NOTE | 2024-05-19 08:53 | MHC.OFFVIS ---
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 Pt had arterial US 05/06/24. Started 5 to [address] Consultant Required: Yes Road Consultant Language: Grant Officer Name: pt request family Information Interpreted: clinical only Accompanied by: Son Allergies No Known Allergies [No Known Allergies*] Allergy (Verified 05/19/24 08:58) HPI HPI LIBRARY TECHNICIAN/Endo referral for PVD: Details: Candace, a pleasant 58 yo female patient, is presenting today on a referral from Endo for ? of PVD. She is English speaking only and is presenting with her son. We utilized [employer] as an seismograph operator helper. The pt has concerns of bilateral numbness in her feet. She denies any pain. She states she has been having difficulty walking due to the numbness; she states that when she tries to get up after sitting her feet are numb and she is unable to stand/walk. She denies any claudication symptoms. She states she does get swelling in her legs as well. She has been a diabetic since 2009 and her most recent A1C is 7.4%. Her Endo did order an arterial duplex US. She is noted to have a resting tremor this morning; she states she is being worked up for Parkinson's. 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 Diabetic nephropathy associated with type 2 diabetes mellitus 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 due to insulin Hypothyroidism Obstructive sleep apnea on CPAP Anemia NAFLD (nonalcoholic fatty liver disease) Sacroiliac joint dysfunction Coarse tremors Bleeding hemorrhoids Dental crowns present Respiratory failure Paranoia (psychosis) Stress incontinence Insomnia Anxiety Scoliosis of thoracolumbar spine Morbid obesity Chronic pain syndrome Inappropriate sinus tachycardia GERD (gastroesophageal reflux disease) Spondylosis of lumbar region without myelopathy or radiculopathy Gastroparesis Hemorrhoids Migraine Patellofemoral arthritis Patella-femoral syndrome Lumbar spondylosis Fibromyalgia Tubular adenoma Family history of colon cancer Vitamin D deficiency Genu valgum Palpitations Chest pain Surgical History Status post hemorrhoidectomy History of hemorrhoidectomy (~09/09/22) History of surgery Hx of section H/O esophagogastroduodenoscopy History of colonoscopy History of arthroscopy of right knee History of bilateral carpal tunnel release History of bladder surgery History of tubal ligation Hx of tonsillectomy Family History Father Stomach cancer Mother Heart disease HTN (hypertension) Diabetes Son No problems noted. Paternal Aunt Stomach cancer Sister Stomach cancer Sister Uterine cancer Social History Household Members: Family Household Members Other:: adult son Housing: Apartment Are you a primary ambulatory care nurse to a significant other at home: No Do you presently have visiting nurse or other home services: Yes (INDUSTRI[employer] RELATIONS MANAGER daily) Alcohol intake: never Patient Tobacco Use Status: Never used Tobacco Second Hand Smoke Exposure: No service: No Current occupational status: disabled Current occupation: lt handed Sexual orientation: Straight/Heterosexual Gender identity: Female Female Reproductive History Menstrual Age of Menarche: 17 Review of Systems Const Reports as per HPI and Denies weakness ENT Reports Normal hearing present and Denies dizziness Card Reports as per HPI, Denies chest pain, Denies chest pain at rest, Denies chest pain with activity, Denies dyspnea and Denies dyspnea on exertion Resp Reports as per HPI, Denies cough, Denies dyspnea and Denies dyspnea on exertion GI Reports as per HPI, Denies abdominal pain, Denies nausea and Denies vomiting Musc Denies numbness Skin/Breast Reports as per HPI, Denies erythema and Denies wounds Neuro Reports Normal hearing present, Denies dizziness, Denies numbness, Denies Sensory deficit (Neuro) and Denies weakness Psych Reports no additional complaints Endo Reports no additional complaints Physical Exam Vital Signs: BMI result Body Mass Index 40.0 Const General: healthy appearing and no acute distress Orientation/consciousness: patient oriented x3 HEENT Head: Yes normal to inspection Ears: hearing grossly normal bilaterally Mouth: Normal oral and palatal mucosa present Resp Effort & Inspection: normal respiratory effort and able to speak in complete sentences Auscultation: clear to auscultation bilaterally Cardio Jugular venous distension: no JVD Rate: regular rate Rhythm: regular rhythm Heart sounds: S1 normal heart sound present and S2 normal heart sound present Bruits: no abdominal aortic bruits, no carotid bruits, no femoral bruits and no renal bruits Peripheral pulses: Peripheral pulses 2+ throughout GI Inspection: Yes normal to inspection Palpation (GI): No Abdominal aortic bruit present Skin General skin exam: no rashes or lesions noted Wounds: no wounds Hair: normal Neuro General: patient oriented x3 Cranial nerves: Yes Normal hearing present Cognition (Neuro): normal cognition Gait exam (Neuro): Normal gait present Motor exam (neuro): 5/5 motor strength present throughout Sensory Exam: No Sensory deficit (Neuro) Extrem Other: Bilateral lower extremities: no swelling noted this morning. Feet are warm to the touch. Cap refill <3 seconds. No discoloration noted. No wounds noted. Strong palpable DP and PT pulses. Bilateral upper extremities: resting tremor noted. General: Yes normal to inspection, Yes full ROM, Yes capillary refill normal and Yes normal gait Results Reviewed Results Reviewed: Arterial duplex US 05/06/24: Right leg: mild dx from the peroneal artery anterior and PT arteries and DP artery Left leg: mild dx left PT artery. Assessment & Plan Assessment & Plan (1) PAD (peripheral artery disease): Code(s): I73.9 - Peripheral vascular disease, unspecified Category: Medical Plan: Candace is presenting today as a referral from Endo for ? PAD. She does have a lengthy hx of DM as well as back issues. She is presenting with bilateral foot numbness. She is currently taking Gabapentin; however, neuropathy is not listed on her med hx and the pt denies being told she has it. We reviewed the arterial duplex US that was ordered, which reveals only mild bilateral lower extremity disease in the smaller lower arteries of the legs; this is not likely the cause of her numbness. We discussed that likely this is not a vascular issue. We discussed the importance of blood sugar control and a healthy, well balanced diet. we discussed to follow back up with Endo for further evaluation of neuropathy. We discussed to follow up with her PCP as well. She states she is being worked up for Parkinson's; we did discuss that difficulty walking can also be a part of that. We discussed that if any other vascular concerns arose, to reach back out to us. Thank you for allowing us to participate in the patient's care. If there are any questions or concerns, please do not hesitate to reach out to us. Coding Level of Care Code New Pt Level 4 (69972) Diagnoses PAD (peripheral artery disease) I73.9
== END 2024-05-19 09:15 | disposition home or self-care (01) ==
LOC: HO.HVS 08:30
PROVIDERS: PCP Family Medicine; Visit Provider Physician Assistant Surgical
DX: I73.9 Peripheral vascular disease, unspecified (principal)
CPT/HCPCS: 99204

== ENCOUNTER → 2024-05-19 08:29 | Outpatient (BNVA) | payer MEDICAID, SELFPAY | PROVIDERS: PCP Family Medicine; Visit Provider Physician Assistant Surgical | DX: E11.65 Type 2 diabetes mellitus with hyperglycemia (principal); E11.649 Type 2 diabetes mellitus with hypoglycemia without coma; E11.51 Type 2 diabetes mellitus with diabetic peripheral angiopathy without gangrene | CPT/HCPCS: 99211; 99212 ==

== ENCOUNTER 2024-05-19 09:27 | Outpatient (AMB) | payer MEDICAID, SELFPAY ==
--- OUTSIDE RECORDS SUMMARY | 2024-05-19 10:19 | XMS_ITS | Referral Summary ---
Author Organization [facility] Address [address] [place] [address] Care Team Providers Care Graphic Design Professor Name Role Phone Jaida Martin Primary Care Provider [phone]- [phone] Encounters Date Type Department Care Team Description 03/23/2024 Telephone [facility] Neurology [address] [place] [id number] Nancy Petty MD 03/08/2024 9:00 AM EST Follow-Up [facility] Neurology [address] [place] [phone] Nancy Petty MD Parkinsonism, unspecified Parkinsonism type (Primary Dx); Intention tremor; Balance problem; Depression with anxiety; Action tremor; Uncontrolled type 2 diabetes mellitus with hyperglycemia; Asthma, unspecified asthma severity, unspecified whether complicated, [...] Info) Description 09/16/2024 8:30 AM EDT Follow-Up [facility] Neurology [address] [place] [id number] Nancy Petty MD [address] [place] [id number] Procedures * Due to [place] [employer]Talk law, this organization might not be sharing negative HIV tests. Procedure Name Priority Date/Time Associated Diagnosis Comments COMPREHENSIVE METABOLIC PANEL Routine 12/30/2023 9:51 AM EDT Intention tremor from Last 3 Months or Most Recently Relevant to Health Maintenance Results * Due to [place] orderTalk law, this organization might not be sharing negative HIV tests. * (ABNORMAL) Comprehensive Metabolic Panel (12/30/2023 9:51 AM EDT) NA 140 135 - 145 mmol/L 12/30/2023 11:25 AM [facility] K 3.6 3.5 - 5.3 mmol/L 12/30/2023 11:25 AM [facility] Cl 102 98 - 107 mmol/L 12/30/2023 11:25 AM [facility] CO2 27 22 - 32 mmol/L 12/30/2023 11:25 AM [facility] Anion Gap 11 5 - 15 12/30/2023 11:25 AM [facility] Glucose 171(H) 65 - 99 mg/dL 12/30/2023 11:25 AM [facility] Creatinine 0.41(L) 0.50 - 1.20 mg/dL 12/30/2023 11:25 AM [facility] Calcium 9.0 8.6 - 10.5 mg/dL 12/30/2023 11:25 AM [facility] Total Protein 7.6 6.0 - 8.0 g/dL 12/30/2023 11:25 AM [facility] Albumin 4.2 3.5 - 5.2 g/dL 12/30/2023 11:25 AM [facility] Bilirubin, Total 0.3 0.2 - 1.2 mg/dL 12/30/2023 11:25 AM [facility] Alkaline Phosphatase 152(H) 35 - 129 U/L 12/30/2023 11:25 AM [facility] AST 19 10 - 40 U/L 12/30/2023 11:25 AM [facility] ALT 12 10 - 40 U/L 12/30/2023 11:25 AM [facility] BUN 12 7 - 23 mg/dL 12/30/2023 11:25 AM EDT [facility] eGFR >90 >=60 mL/min/1 .73m2 12/30/2023 11:25 AM EDT [facility] Comment:The estimated glomer [...] 12/30/2023 11:25 AM EDT [facility] A/G Ratio 1.2(L) 1.5 - 3.0 12/30/2023 11:25 AM EDT [facility] Blood Structure of peripheral vein / Unknown Venipuncture / Unknown 12/30/2023 9:51 AM EDT 12/30/2023 10:39 AM EDT Nancy Petty MD LAB BLOOD ORDERABLES Fi nal Result [facility] [address] [place] [address], from Last 3 Months or Most Recently Relevant to Health Maintenance Insurance Sociall Care Teams Graphic Design Professor Relationship Specialty Start Date End Date Jaida Martin [address] [place] [id number] PCP - General Family Medicine 01/20/23
--- OUTSIDE RECORDS SUMMARY | 2024-05-19 10:19 | XMS_ITS | Clinical Summary ---
Author Organization [facility] Address [address] [place] [address] Care Team Providers Care Grease Machine Worker Name Role Phone Jaida Martin Primary Care Provider [phone]- [phone] Allergies No known active allergies Medications cloNIDine [...] Type Department Care Team Description 03/23/2024 Telephone [facility] Neurology [address] [place] [phone] Nancy Petty MD 03/08/2024 9:00 AM EST Follow-Up [facility] Neurology [address] [place] [address] [phone] Nancy Petty MD Parkinsonism, unspecified Parkinsonism type [...] Info) Description 09/16/2024 8:30 AM EDT Follow-Up [facility] Neurology [address] [place] [address] [phone] Nancy Petty MD [address] [place] [phone] Health Maintenance Due Date Last Done Comments Cervical Cancer Screening 1967 Cologuard 1967 Colonoscopy 1967 HPV and Pap Smear 1967 Hepatitis C Screening 1967 Pap Smear 1967 Sigmoidoscopy 1967 Ophthalmology Exam 07/10/1977 Urine Microalbumin 07/10/1977 Alcohol/Substance Use Screening 03/02/2024 Depression Screening and Follow-Up 03/02/2024 [facility] Screening 03/02/2024 Hemoglobin [...] Additional history exists Procedures * Due to [place] [employer] law, this organization might not be sharing negative HIV tests. Procedure Name Priority Date/Time Associated Diagnosis Comments COMPREHENSIVE METABOLIC PANEL Routine 12/30/2023 9:51 AM EDT Intention tremor from Last 3 Months or Most Recently Relevant to Health Maintenance Results * Due to [place] [employer] law, this organization might not be sharing negative HIV tests. * (ABNORMAL) Comprehensive Metabolic Panel (12/30/2023 9:51 AM EDT) NA 140 135 - 145 mmol/L 12/30/2023 11:25 AM [facility] K 3.6 3.5 - 5.3 mmol/L 12/30/2023 11:25 AM [facility] Cl 102 98 - 107 mmol/L 12/30/2023 11:25 AM EDT [facility] CO2 27 22 - 32 mmol/L 12/30/2023 11:25 AM [facility] Anion Gap 11 5 - 15 12/30/2023 11:25 AM [facility] Glucose 171(H) 65 - 99 mg/dL 12/30/2023 11:25 AM [facility] Creatinine 0.41(L) 0.50 - 1.20 mg/dL 12/30/2023 11:25 AM [facility] Calcium 9.0 8.6 - 10.5 mg/dL 12/30/2023 11:25 AM [facility] Total Protein 7.6 6.0 - 8.0 g/dL 12/30/2023 11:25 AM [facility] Albumin 4.2 3.5 - 5.2 g/dL 12/30/2023 11:25 AM [facility] Bilirubin, Total 0.3 0.2 - 1.2 mg/dL 12/30/2023 11:25 AM [facility] Alkaline Phosphatase 152(H) 35 - 129 U/L 12/30/2023 11:25 AM [facility] AST 19 10 - 40 U/L 12/30/2023 11:25 AM [facility] ALT 12 10 - 40 U/L 12/30/2023 11:25 AM [facility] BUN 12 7 - 23 mg/dL 12/30/2023 11:25 AM EDT [facility] eGFR >90 >=60 mL/min/1 .73m2 12/30/2023 11:25 AM EDT [facility] Comment:The estimated glomer ular [...] - 4.2 g/dL 12/30/2023 11:25 AM EDT [facility] A/G Ratio 1.2(L) 1.5 - 3.0 12/30/2023 11:25 AM EDT [facility] Blood Structure of peripheral vein / Unknown Venipuncture / Unknown 12/30/2023 9:51 AM EDT 12/30/2023 10:39 AM EDT Nancy Petty MD LAB BLOOD ORDERABLES nal Result [facility] [address] [place] [address], from Last 3 Months or Most Recently Relevant to Health Maintenance [facility] Care Teams Grease Machine Worker Relationship Specialty Start Date End Date Jaida Martin [address] [place] [id number] PCP - General Family Medicine 01/20/23
--- OUTSIDE RECORDS SUMMARY | 2024-05-19 10:19 | XMS_ITS | Clinical Summary ---
Author Organization [facility] it[facility] Address [address] [place] [address] Care Team Providers Care Lathe Set Up Operator Name Role Phone Unavailable Primary Care Provider [...]
--- NOTE | 2024-05-19 11:02 | MHC.AMDMED ---
Intake Intake Visit Reasons: 60 min Tripoler Required: Yes Tripoler Language: Sheriffs Officer Name: [phone] Accompanied by: Son Allergies No Known Allergies [No Known Allergies*] Allergy (Verified 05/19/24 08:58) HPI Comprehensive Diabetes Asmnt Most Recent Diabetes Results: Hemoglobin A1c 7.5 % 09/23/18 Microalb/Creat Ratio 9.8 ug/mg cr (<30) 01/04/24 Cholesterol 99 mg/dL (<200) 05/06/24 HDL Cholesterol 43 mg/dL (>40) 05/06/24 Triglycerides 110 mg/dL (<150) 05/06/24 Creatinine 0.57 mg/dL (0.5-1.4) 05/06/24 Blood Urea Nitrogen 9 mg/dL (9-16) 05/06/24 Sodium 142 mmol/L (135-145) 05/06/24 Potassium 3.4 mmol/L (3.3-5.1) 05/06/24 Chloride 104 mmol/L (96-108) 05/06/24 Carbon Dioxide 29 mmol/L (22-29) 05/06/24 Calcium 8.6 mg/dL (8.4-10.2) 05/06/24 AST 32 U/L (5-31) H 05/06/24 ALT 14 U/L (0-31) 05/06/24 Total Protein 7.9 g/dL (6.5-8.0) 05/06/24 Albumin 3.8 g/dL (3.5-5.0) 05/06/24 [facility] Medical History Asthma HTN (hypertension) Hyperlipidemia 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, uncontrolled 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 Diabetic nephropathy associated with type 2 diabetes mellitus 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 due to insulin Hypothyroidism Obstructive sleep apnea on CPAP Anemia NAFLD (nonalcoholic fatty liver disease) Sacroiliac joint dysfunction Coarse tremors Bleeding hemorrhoids Dental crowns present Respiratory failure Paranoia (psychosis) Stress incontinence Insomnia Anxiety Scoliosis of thoracolumbar spine Morbid obesity Chronic pain syndrome Inappropriate sinus tachycardia GERD (gastroesophageal reflux disease) Spondylosis of lumbar region without myelopathy or radiculopathy Gastroparesis Hemorrhoids Migraine Patellofemoral arthritis Patella-femoral syndrome Lumbar spondylosis Fibromyalgia Tubular adenoma Family history of colon cancer Vitamin D deficiency Genu valgum Palpitations Chest pain Surgical History Status post hemorrhoidectomy History of hemorrhoidectomy (~09/09/22) History of surgery Hx of section H/O esophagogastroduodenoscopy History of colonoscopy History of arthroscopy of right knee History of bilateral carpal tunnel release History of bladder surgery History of tubal ligation Hx of tonsillectomy Family History Father Stomach cancer Mother Heart disease HTN (hypertension) Diabetes Son No problems noted. Paternal Aunt Stomach cancer Sister Stomach cancer Sister Uterine cancer Social History Household Members: Family Household Members Other:: adult son Housing: Apartment Are you a primary patient care to a significant other at home: No Do you presently have visiting nurse or other home services: Yes (LEASE OUT MAN daily) Alcohol intake: never Patient Tobacco Use Status: Never used Tobacco Second Hand Smoke Exposure: No service: No Current occupational status: disabled Current occupation: lt handed Sexual orientation: Straight/Heterosexual Gender identity: Female Female Reproductive History Menstrual Age of Menarche: 17 Assessment & Plan Assessment & Plan (1) 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, uncontrolled: Code(s): E11.65 - Type 2 diabetes mellitus with hyperglycemia Qualifiers: Glycemic state: with hypoglycemia Coma presence: without coma Qualified Code(s): E11.649 - Type 2 diabetes mellitus with hypoglycemia without coma Plan: Personal Continuous Glucose Monitor: Patients CGM information reviewed, Pt uses Sensor data: 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: ? 1% Hyperglycemia:? 69% Time in Range:? 30% Average glucose for the last 2 weeks? 197 mg/dL Last A1c on 03/30/2024 7.4% Patient reports taking Mounjaro 7.5 mg weekly Humulin U 500 45 units in the a.m. 20 units p.m. Metformin 1000 mg b.i.d. daily, patient denies missing medications Patient's glucose is running above target, at last visit with provider evening dose of Humulin U 500 reduce to 20 units for small meals. Discussed with patient what she considers a small meal, she reports if she has 1 cup of rice and 1 cup of beans that is a small meal for her. Large meals consist of 2 cups of rice and 2 cups of beans, plus she eats root vegetables, on occasion. Reviewed with patient that meals are recommended to be kept to approximately 45 g of carbohydrate, she reports for lunch she usually eats a sandwich and drinks an 8-10 oz glass of pear juice. Suggested to patient if she is eating over 90 g of carbohydrate at supper she increase Humulin u500 to 25 units In addition we reviewed how to treat hypoglycemia, with 15 g of fast acting carbohydrate that is either 4 oz of fruit juice or 3-4 glucose tabs Patient reports she has been treating hypoglycemia with greater than 30 g of carbohydrates Patient able to insert sensor independently at home without issue.? Follow-up with healthcare educator in 3 months Portions of this note were created using voice recognition software, please excuse any words or phrases that may have been misinterpreted. Patient Instructions: Aumentar Humulin u500 por la tarde de 20 a 25 unidades Coding Level of Care Code Est Pt Level 1 (92695) Diagnoses Uncontrolled type 2 diabetes mellitus with hypoglycemia without coma E11.649 Glycemic state: with hypoglycemia Coma presence: without coma
== END 2024-05-19 11:28 | disposition home or self-care (01) ==
LOC: HO.ENCR 09:27
PROVIDERS: PCP Family Medicine; Visit Provider Registered Nurse Diabetes Educator
DX: E11.649 Type 2 diabetes mellitus with hypoglycemia without coma (principal)

== ENCOUNTER 2024-08-03 09:12 | Outpatient (REF) | payer MEDICAID, SELFPAY ==
--- OUTSIDE RECORDS SUMMARY | 2024-08-03 09:33 | XMS_ITS | Encounter Summary ---
Author Organization [employer] Address [address] [facility] 7t [place] [address] Care Team Providers Care Clipping Marker Name Role Phone Jaida Martin DO Primary Care Provider Encounter Details Date Type Department Care Team (Late st Contact Info) Description 03/12/2022 Orders Only [facility] MEDICINE [address] [place] [address] Jaida Martin DO [address] [place] [address] Vitamin B12 deficiency (Primary Dx) Social History [...] Care Team (Late st Contact Info) Description 08/03/2024 10:30 AM EDT Office Visit [facility] ADULT DENTAL [address] [place] [address] Campbell Nguyễn DDS [address] [place], [place] [phone] Arrived 08/15/2024 10:00 AM EDT Clinical Support [facility] [address] [place] [address] 08/15/2024 11:15 AM EDT Office Visit [facility] [address] [facility] [place] [address] Jaida Martin DO [address] [facility] [place] [address] 09/05/2024 9:00 AM EDT Office Visit [facility] ADULT DENTAL [address] [place] [address] Campblel Nguyễn DDS [address] [place], [place] [phone] 02/10/2025 10:00 AM EST Office Visit [facility] ADULT DENTAL [address] [place] [address] Amanda Fernandez [address] [place], [place] [phone] documented as of this encounter Procedures Procedure [...] EST) Sodium 146(H) 135 - 145 mmol/L [facility] Potassium 3.0(L) 3.3 - 5.1 mmol/L [facility] Chloride 107 96 - 108 mmol/L [facility] Carbon Dioxide 30(H) 22 - 29 mmol/L [facility] Anion Gap 12 12 - 20 [facility] Urea Nitrogen (BUN) 9 9 - 16 mg/dL [facility] Creatinine, Serum 0.54 0.5 - 1.4 mg/dL [facility] Creatinine Clr Calc Pharmacy 148.7 [facility] Comment:Provided height and weight: 162.56 cm,115.666 kg.eGFR (calculated from the MDRD study equation) and eCrCl(calculated from the Cockcroft-Gault equation) are based ondifferent parameters and may not yield comparable results.If eCrCl result is absurd, please check patient'sheight/weight. Estimated Glomerular Filt Rate >60 [facility] Comment:NOTE: For -Am erican individuals, multiply the result by 1.210.Chronic Kidney Disease: Estimated GFR < 60 mL/min/1.29e5Vbdcmv Kidney Disease: Estimated GFR < 15 mL/min/1.73m2 Glucose 117(H) 60 - 115 mg/dL [facility] Calcium 9.1 8.4 - 10.2 mg/dL [facility] Bilirubin, Total 0.4 0.0 - 1.0 mg/dL [facility] Aspartate Amino Transferase 19 5 - 31 U/L [facility] Alanine Aminotransferase 10 0 - 31 U/L [facility] Total Protein 6.9 6.5 - 8.0 g/dL [facility] Albumin Level 3.8 3.5 - 5.0 g/dL [facility] Alkaline Phosphatase 126(H) 39 - 117 U/L [facility] 03/13/2022 7:42 AM EST 03/13/2022 7:44 AM EST us [facility] External Provider LAB BLO OD ORDERABLES Final Result [facility] [address] [place] [address] [phone] * (ABNORMAL) CBC auto differential (03/13/2022 7:42 AM EST) White Blood Count 10.3 4.8 - 10.8 X10*3/uL [facility] Red Blood Count 4.24 4.20 - 5.50 X10*6/uL [facility] Hemoglobin 11.0(L) 12.0 - 16.0 g/dl [facility] Hematocrit 36.1(L) 37.0 - 47.0 % [facility] Mean Corpuscular Volume 85.1 80.0 - 98.0 fL [facility] Mean Corpuscular Hemoglobin 25.9(L) 27.0 - 33.0 pg [facility] Mean Corpuscular HGB Conc 30.5(L) 31.0 - 35.0 g/dl [facility] Red Cell Distribution Width 15.9 11.0 - 16.0 % [facility] Platelet Count 266 160 - 400 X10*3/uL [facility] Mean Platelet Volume 10.1 9.4 - 12.3 fL [facility] Neutrophils Percent Auto 61.8 45 - 73 % [facility] Imm Gran Pct Auto 0.6(H) 0.0 - 0.4 % [facility] Lymphocytes Percent Auto 28.1 20 - 40 % [facility] Monocytes Percent Auto 7.3 2 - 11 % [facility] Eosinophils Percent Auto 1.8 0 - 4 % [facility] Basophils Percent Auto 0.4 0 - 2 % [facility] NRBC Pct Auto 0.0 0.0 - 0.2 /100WBC [facility] Neutrophils Absolute Auto 6.4 2.0 - 8.3 x10*3/uL [facility] Imm Gran Abs Auto 0.06(H) 0.00 - 0.03 X10*3/uL [facility] Lymphocytes Absolute Auto 2.9 1.2 - 4.9 X10*3/uL [facility] Monocytes Absolute Auto 0.8 0.1 - 1.2 X10*3/uL [facility] Eosinophils Absolute Auto 0.2 0.0 - 0.4 X10*3/uL [facility] Basophils Absolute Auto 0.0 0.0 - 0.2 X10*3/uL [facility] NRBC Abs Auto 0.000 0.0 - 0.012 X10*3/uL [facility] 03/13/2022 7:42 AM EST 03/13/2022 7:44 AM EST [facility] External Provider LAB BLO OD ORDERABLES Final Result Performing Organization Address City/[facility]/ZIP Co de Phone Number [facility] [address] [place] [address] [phone] * (ABNORMAL) GLUCOSE, WHOLE BLOOD (03/13/2022 5:16 AM EST) Glucose, Whole Blood 241(H) 60 - 115 mg/dL [facility] Comment:METER #: [id number] 1 03/13/2022 5:16 AM EST 03/13/2022 5:20 AM EST [facility] External Provider LAB BLO OD ORDERABLES Final Result Performing Organization Address City/[facility] Co de Phone Number [facility] [address] [place] [phone] documented in this encounter Visit Diagnoses Diagnosis Vitamin B12 deficiency- Primary Other B-complex deficiencies documented in this encounter Care Teams Clipping Marker Relationship Specialty Start Date End Date Jaida Martin DO [address] [place] [phone] PCP - General Family Medicine 03/02/18 Pamela Andres Tree Surgeon HelperQuarter Trimmer 01/14/24 documented as of this encounter
[2024-08-03 11:40] LABS: Hematocrit 37.5 % (37.0-47.0); Hemoglobin 11.5 g/dl (12.0-16.0); INTERNATIONAL NORM RATIO 1.1 (0.9-1.1); Mean Corpuscular HGB Conc 30.7 g/dl (31.0-35.0); Mean Corpuscular Volume 84.7 fL (80.0-98.0); Mean Platelet Volume 10.8 fL (9.4-12.3); Platelet Count 267 X10*3/uL (160-400); Prothrombin Time 12.8 SEC (10.9-12.4); Red Blood Count 4.43 X10*6/uL (4.20-5.50); Red Cell Distribution Width 15.7 % (11.0-16.0); White Blood Count 8.6 X10*3/uL (4.8-10.8)
[2024-08-03 14:21] LABS: Alanine Aminotransferase 9 U/L (0-31); Albumin Level 3.9 g/dL (3.5-5.0); Alkaline Phosphatase 129 U/L (39-117); Anion Gap 10 (12-20); Aspartate Amino Transferase 19 U/L (5-31); Bilirubin Total 0.5 mg/dL (0.0-1.0); Blood Urea Nitrogen 9 mg/dL (9-16); Calcium 8.6 mg/dL (8.4-10.2); Carbon Dioxide 32 mmol/L (22-29); Chloride 105 mmol/L (96-108); Estimated Glomerular Filt Rate > 60; Glucose Random 235 mg/dL (60-115); Iron 42 mcg/dL (30-160); Percent Iron Saturation 16 % (15-50); Potassium 3.6 mmol/L (3.3-5.1); Sodium 143 mmol/L (135-145); Total Iron Binding Capacity 256 mcg/dL (228-428); Total Protein 7.4 g/dL (6.5-8.0); Unsaturated Iron Binding 214 ug/dL
[2024-08-03 14:22] LABS: Ferritin 142 ng/mL (10-250)
[2024-08-04 04:51] LABS: HIV AB/AG Nonreactive (Nonreactive); HIV Num 1 0.06 S/CO (0.00-0.99)
[2024-08-04 20:43] LABS: Transglutaminase IgA <1.0 U/mL
[2024-08-05 11:04] LABS: Mitochondrial Antibodies NEGATIVE (NEGATIVE)
[2024-08-07 06:53] LABS: Smooth Muscle Antibody <20 U (<20)
[2024-08-09 00:29] LABS: Liver Kidney Microsomal Ab <=20.0 U (<=20.0)
[2024-08-12 08:44] LABS: Phosphatidylethanol 16:0-18:1 NEGATIVE; Phosphatidylethanol 16:0-18:2 NEGATIVE
[2024-08-12 08:49] LABS: Liver Fibrosis Score 0.07; Liver Fibrosis Stage F0
[2024-08-12 08:50] LABS: Liver Fibrosis Interpretation no fibrosis; Nec Inflam Act Score 0.02
[2024-08-12 08:51] LABS: Nec Inflam Act Interpretation no activity
[2024-08-12 08:52] LABS: FIB-Alpha-2-Macroglobulin 183
[2024-08-12 08:53] LABS: FIB-Apolipoprotein A1 173; FIB-Total Bilirubin 0.3
[2024-08-12 08:54] LABS: FIB-ALT 9; FIB-GGT 53
== END 2024-08-03 09:13 | disposition home or self-care (01) ==
LOC: HO.HHCL 09:12
PROVIDERS: Visit Provider Internal Medicine
DX: K76.0 Fatty (change of) liver, not elsewhere classified (principal)
CPT/HCPCS: 36415; 80053; 80321; 81596; 82728; 83540; 84443; 85027; 85610; 86015; 86364; 86376; 86381; 87389

== ENCOUNTER 2024-08-11 08:33 | Outpatient (AMB) | payer MEDICAID, SELFPAY ==
--- NOTE | 2024-08-11 07:30 | A.OFFVIS_ITS ---
Vital Signs 08/11/24 08:51 Height 5 ft 4 in Weight 229 lb 4.492 oz BMI 39.4 BP 124/76 Blood Pressure Location Rt brachial Position Sitting Pulse 79 Pulse Source Pulse Oximeter Pulse Oximetry (%) 95 Oxygen Delivery Method Room Air Intake Visit Reasons: T2DM Intake Note: Patient presents today for a follow-up on Type 2 Diabetes Mellitus: Last Diabetic eye exam was on: 03/17/2024 Last Podiatry exam was on: Patient does not see a Special Service Officer Most recent HbA1c: DUE ON, 08/11/2024 Random Glucose- 163 mg/dL, Today Bookkeeper Required: Yes Bookkeeper Language: Microgrinder Operator Services: Bookkeeper Present Bookkeeper Name: BATSHEVA Rodriguez/VIVIAN NAVARRO Information Interpreted: non-clinical & clinical Accompanied by: Self / Same As Patient Allergies No Known Allergies [No Known Allergies*] Allergy (Verified 08/11/24 08:53) HPI Comments Details: Patient is a 59-year-old female with DM type 2 diagnosed 2009 who presents for management of diabetes. She was last seen 03/30/2024 and more recently by medical educator. A1C is 7.5% down from 9.4%. Mounjaro was reduced in the past from 10mg due to symptoms Diabetes medications: Humulin U 500 50 units before breakfast and 25 units before dinner metformin ER 500 mg 2 pills twice a day. Dexcom average glucose: [ ] 14 day continuous glucose monitor report reviewed Glucose Managment indicator [ ] % Days with CGM data [ ] % TIme in ranges: [ ] % very high (above 250) [ ] % high ?(181-250) [ ] % in range ?(70-180] [ ] % low (69-55) [ ] % ?very low (below 54) [ ] Standard Deviation Interpretation [ ] Diabetes education : saw Adela Reed CDE Exercise: walking when weather permit, less in winter with cold. Past medical history: HLD, HTN, gastroparesis Micro and macrovascular complications: Has retinopathy, Last Diabetic eye exam: 03/2024 No neuropathy: Last Podiatry Visit: Doesn't have one has nails done at a salon No Nephropathy: 03/30/24 eGFR >60 01/04/2024 microalbumin 5.0 No known macrovascular complications FIB 4 score with labs 12/28/23: 0.68, advanced fibrosis excluded Weight: 01/2024 241 04/05/24 233 PFSH Medical History Asthma HTN (hypertension) Hyperlipidemia 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, uncontrolled residential (current) use of insulin Diabetic nephropathy associated with type 2 diabetes mellitus 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 due to insulin Hypothyroidism Obstructive sleep apnea on CPAP Anemia NAFLD (nonalcoholic fatty liver disease) Sacroiliac joint dysfunction Coarse tremors Bleeding hemorrhoids Dental crowns present Respiratory failure Paranoia (psychosis) Stress incontinence Insomnia Anxiety Scoliosis of thoracolumbar spine Morbid obesity Chronic pain syndrome Inappropriate sinus tachycardia GERD (gastroesophageal reflux disease) Spondylosis of lumbar region without myelopathy or radiculopathy Gastroparesis Hemorrhoids Migraine Patellofemoral arthritis Patella-femoral syndrome Lumbar spondylosis Fibromyalgia Tubular adenoma Family history of colon cancer Vitamin D deficiency Genu valgum Palpitations Chest pain Surgical History Status post hemorrhoidectomy History of hemorrhoidectomy (~09/09/22) History of surgery Hx of section H/O esophagogastroduodenoscopy History of colonoscopy History of arthroscopy of right knee History of bilateral carpal tunnel release History of bladder surgery History of tubal ligation Hx of tonsillectomy Family History Father Stomach cancer Mother Heart disease HTN (hypertension) Diabetes Son No problems noted. Paternal Aunt Stomach cancer Sister Stomach cancer Sister Uterine cancer Social History Household Members: Family Household Members Other:: adult son Housing: Apartment Are you a primary post acute care registered nurse to a significant other at home: No Do you presently have visiting nurse or other home services: Yes (INDUSTRIAL ORGANIZATION MANAGER daily) Alcohol intake: never Patient Tobacco Use Status: Never used Tobacco Second Hand Smoke Exposure: No service: No Current occupational status: disabled Current occupation: lt handed Sexual orientation: Straight/Heterosexual Gender identity: Female Female Reproductive History Menstrual Age of Menarche: 17 Physical Exam Vital Signs: Last Vital Signs Pulse 79 08/11/24 08:51 BP 124/76 08/11/24 08:51 Pulse Ox 95 08/11/24 08:51 Oxygen Delivery Method Room Air 08/11/24 08:51 BMI result Body Mass Index 39.4 Results AMB Hemoglobin A1c AMB Hemoglobin A1c 7.5 % Last Edit by BATSHEVA Rodriguez on 08/11/24 09:06 Results Reviewed Results Reviewed: Laboratory Last Values Glucose (Clinic) 163 mg/dL (60-115) H 08/11/24 08:57 Hgb A1c (Clinic) 7.5 % (4.0-6.0) H 08/11/24 08:58 Assessment & Plan Assessment & Plan Orders: Orders AMB Hemoglobin A1c Today E11.649 - Type 2 diabetes mellitus with hypoglycemia without coma Coding
--- OUTSIDE RECORDS SUMMARY | 2024-08-11 08:46 | XMS_ITS | Encounter Summary ---
Author Organization [employer] Address [address] [facility] 7t [place] [address] Care Team Providers Care Manager Student Services Name Role Phone Jaida Martin DO Primary Care Provider Encounter Details Date Type Department Care Team (Late st Contact Info) Description 03/12/2022 Orders Only [address] [address] Jaida Martin DO [address] [place], [place] [phone] Vitamin B12 deficiency (Primary Dx) Social History [...] Care Team (Late st Contact Info) Description 08/15/2024 10:00 AM EDT Clinical Support [address] [address] 08/15/2024 11:15 AM EDT Office Visit [address] [phone] Jaida Martin DO [address] [place] [address] 09/05/2024 9:00 AM EDT Office Visit [facility] ADULT DENTAL 230 [facility], [place] [phone] Campbell Nguyễn DDS [address] [place] [address] 02/10/2025 10:00 AM EST Office Visit [facility] ADULT DENTAL [address] [place] [address] Amanda Fernandez [address] [place], [place] [phone] documented as of this encounter Procedures Procedure [...] EST) Sodium 146(H) 135 - 145 mmol/L [facility] Potassium 3.0(L) 3.3 - 5.1 mmol/L [facility] Chloride 107 96 - 108 mmol/L [facility] Carbon Dioxide 30(H) 22 - 29 mmol/L [facility] Anion Gap 12 12 - 20 [facility] Urea Nitrogen (BUN) 9 9 - 16 mg/dL [facility] Creatinine, Serum 0.54 0.5 - 1.4 mg/dL [facility] Creatinine Clr Calc Pharmacy 148.7 [facility] Comment:Provided height and weight: 162.56 cm,115.666 kg.eGFR (calculated from the MDRD study equation) and eCrCl(calculated from the Cockcroft-Gault equation) are based ondifferent parameters and may not yield comparable results.If eCrCl result is absurd, please check patient'sheight/weight. Estimated Glomerular Filt Rate >60 [facility] Comment:NOTE: For -Am erican individuals, multiply the result by 1.210.Chronic Kidney Disease: Estimated GFR < 60 mL/min/1.06z9Knphpw Kidney Disease: Estimated GFR < 15 mL/min/1.73m2 Glucose 117(H) 60 - 115 mg/dL [facility] Calcium 9.1 8.4 - 10.2 mg/dL [facility] Bilirubin, Total 0.4 0.0 - 1.0 mg/dL [facility] Aspartate Amino Transferase 19 5 - 31 U/L [facility] Alanine Aminotransferase 10 0 - 31 U/L [facility] Total Protein 6.9 6.5 - 8.0 g/dL [facility] Albumin Level 3.8 3.5 - 5.0 g/dL [facility] Alkaline Phosphatase 126(H) 39 - 117 U/L [facility] 03/13/2022 7:42 AM EST 03/13/2022 7:44 AM EST [facility] External Provider LAB BLO OD ORDERABLES Final Result [facility] [address] [place] [phone] * (ABNORMAL) CBC auto differential (03/13/2022 7:42 AM EST) White Blood Count 10.3 4.8 - 10.8 X10*3/uL [facility] Red Blood Count 4.24 4.20 - 5.50 X10*6/uL [facility] Hemoglobin 11.0(L) 12.0 - 16.0 g/dl [facility] Hematocrit 36.1(L) 37.0 - 47.0 % [facility] Mean Corpuscular Volume 85.1 80.0 - 98.0 fL [facility] Mean Corpuscular Hemoglobin 25.9(L) 27.0 - 33.0 pg [facility] Mean Corpuscular HGB Conc 30.5(L) 31.0 - 35.0 g/dl [facility] Red Cell Distribution Width 15.9 11.0 - 16.0 % [facility] Platelet Count 266 160 - 400 X10*3/uL [facility] Mean Platelet Volume 10.1 9.4 - 12.3 fL [facility] Neutrophils Percent Auto 61.8 45 - 73 % [facility] Imm Gran Pct Auto 0.6(H) 0.0 - 0.4 % [facility] Lymphocytes Percent Auto 28.1 20 - 40 % [facility] Monocytes Percent Auto 7.3 2 - 11 % [facility] Eosinophils Percent Auto 1.8 0 - 4 % [facility] Basophils Percent Auto 0.4 0 - 2 % [facility] NRBC Pct Auto 0.0 0.0 - 0.2 /100WBC [facility] Neutrophils Absolute Auto 6.4 2.0 - 8.3 x10*3/uL [facility] Imm Gran Abs Auto 0.06(H) 0.00 - 0.03 X10*3/uL [facility] Lymphocytes Absolute Auto 2.9 1.2 - 4.9 X10*3/uL [facility] Monocytes Absolute Auto 0.8 0.1 - 1.2 X10*3/uL [facility] Eosinophils Absolute Auto 0.2 0.0 - 0.4 X10*3/uL [facility] Basophils Absolute Auto 0.0 0.0 - 0.2 X10*3/uL [facility] NRBC Abs Auto 0.000 0.0 - 0.012 X10*3/uL [facility] 03/13/2022 7:42 AM EST 03/13/2022 7:44 AM EST us [facility] External Provider LAB BLO OD ORDERABLES Final Result [facility] [address] [place] [address] [phone] * (ABNORMAL) GLUCOSE, WHOLE BLOOD (03/13/2022 5:16 AM EST) Glucose, Whole Blood 241(H) 60 - 115 mg/dL [facility] Comment:METER #: [id number] 1 03/13/2022 5:16 AM EST 03/13/2022 5:20 AM EST us [facility] External Provider LAB BLO OD ORDERABLES Final Result [facility] [address] [place] [address] [phone] documented in this encounter Visit Diagnoses Diagnosis Vitamin B12 deficiency- Primary Other B-complex deficiencies documented in this encounter Care Teams Manager Student Services Relationship Specialty Start Date End Date Jaida Martin DO [address] [place] [phone] PCP - General Family Medicine 03/02/18 Pamela Andres Lehr AttendantUrgent Care Physician 01/14/24 documented as of this encounter
[2024-08-11 08:51] VITALS: BP 124/76; PULSE 79; O2SAT 95; BMI 39.4
[2024-08-11 09:00] LABS: Glucose, Whole Blood 163 mg/dL (60-115)
== END 2024-08-11 09:37 | disposition home or self-care (01) ==
LOC: HO.ENCR 08:34
PROVIDERS: PCP Family Medicine; Visit Provider Nurse Practitioner Adult Health
DX: E11.649 Type 2 diabetes mellitus with hypoglycemia without coma (principal)

== ENCOUNTER → 2024-08-11 08:33 | Outpatient (BNVA) | payer MEDICAID, SELFPAY | PROVIDERS: PCP Family Medicine; Visit Provider Nurse Practitioner Adult Health | DX: E11.649 Type 2 diabetes mellitus with hypoglycemia without coma (principal) | CPT/HCPCS: 82947; 83036; 99212 ==

== ENCOUNTER 2024-08-23 07:33 | Outpatient (REF) | payer MEDICAID, SELFPAY ==
--- NOTE | ~2024-08-23 | US_ITS ---
EXAMINATION: US ABDOMEN COMPLETE WITH LIVER ELASTOGRAPHY HISTORY: K76.0 - Fatty (change of) liver, not elsewhere classified TECHNIQUE: Real-time grayscale ultrasound imaging of the abdomen was performed and images were reviewed. COMPARISON: Comparison is made with the prior examination dated 12/28/2023. FINDINGS: Liver: The right lobe of the liver measures 20.8 cm in size. The left lobe of the liver measures 10.8 cm in size. The liver demonstrates increased echotexture, consistent with steatosis. The liver contour appears somewhat nodular, suggestive of cirrhosis. No focal mass or intrahepatic biliary ductal dilatation is identified. There is normal hepatopedal flow in the portal vein. Ultrasound elastography of the liver was performed with 10 separate measurements of the liver parenchyma with the patient in the supine position. Measurements were obtained approximately 2 cm below Scotty's capsule and perpendicular to the capsule. The median shear wave velocity is 1.11 m/s. The interquartile range/median (IQR/median) is 0.10. Gallbladder and biliary tree: The gallbladder is unremarkable, without evidence of calculi, wall thickening, or pericholecystic fluid. There is no sonographic Beltran sign. The common bile duct is normal in caliber measuring 5 mm. Kidneys: The right kidney measures 12.7 cm in length. The left kidney measures 14.1 cm in length. There is a possible 3 mm right renal calculus, although this is only seen on sagittal images. The kidneys are otherwise unremarkable, without evidence of masses or hydronephrosis. There are no left renal calculi. Pancreas: The pancreatic head, neck, and body are unremarkable. The pancreatic tail is obscured by bowel gas. Spleen: The spleen is top normal in size, measuring 12.6 cm in length. Abdominal aorta and inferior vena cava: The visualized portions of the abdominal aorta and inferior vena cava are normal in caliber. There is no free fluid in the abdomen. US/US abdomen comp w elastography IMPRESSION: Hepatomegaly, hepatic steatosis, and probable cirrhosis. Borderline splenomegaly. The median shear wave velocity in the liver is 1.11 m/s, corresponding to a median liver stiffness of 3.7 kPa. The IQR/median value is 0.10. This is indicative of a quality data set. Findings are indicative of a normal elastography value with a low likelihood of severe fibrosis or cirrhosis. REFERENCE: Society of Radiologists in Ultrasound Liver Stiffness Thresholds (2020): LIVER STIFFNESS THRESHOLDS: *Shear wave velocity less than 1.3 m/s (Liver Stiffness equal or less than 5 kPa): High probability of being normal. *Shear wave velocity less than 1.7 m/s (Liver Stiffness less than 9 kPa): In the absence of other known clinical signs, rules out compensated advanced chronic liver disease. *Shear wave velocity between 1.7-2.1 m/s (Liver Stiffness 9-13 kPa): Suggestive of compensated advanced chronic liver disease but need further test for confirmation. *Shear wave velocity between 2.1-2.4 m/s (Liver Stiffness 13-17 kPa): Rules in compensated advanced chronic liver disease. *Shear wave velocity greater than 2.4 m/s (Liver Stiffness over 17 kPa): Suggestive of clinically significant portal hypertension. QUALITY OF DATA SET: *IQR/Median value equal or less than 0.30 implies a quality data set. *IQR/Median value over 0.30 implies a poor quality data set. SIGNIFICANT CHANGE FROM PRIOR EXAM: Significant change if liver stiffness measurement is 10% or greater from prior exam. OTHER CONSIDERATIONS: The stage of liver fibrosis may be overestimated in the setting of acute hepatitis, liver inflammation, elevated liver function tests, hepatic vascular congestion, obstructive cholestasis, non-fasting state, and infiltrative diseases such as amyloidosis and lymphoma. In some patients with NAFLD, the liver stiffness thresholds for compensated advanced chronic liver disease may be lower. In causes other than viral hepatitis and NAFLD, liver stiffness thresholds are not well established. Electronically signed by: Timmy Hester MD 08/23/2024 09:16 AM EDT
--- OUTSIDE RECORDS SUMMARY | 2024-08-23 07:35 | XMS_ITS | Encounter Summary ---
Author Organization [employer] Address [address] [facility] 7[address] [place] [address] Care Team Providers Care Program Developer Name Role Phone Jaida Martin DO Primary Care Provider [phone] Encounter Details Date Type Department Care Team (Late st Contact Info) Description 03/12/2022 Orders Only [facility] [address] [place] [address] Jaida Martin DO [address] [place] [address] Vitamin B12 deficiency (Primary Dx) Social History [...] Care Team (Late st Contact Info) Description 09/05/2024 9:00 AM EDT Office Visit [facility] [address] [place] [address] Campbell Nguyễn DDS [address] [place] [address] 10/17/2024 9:30 AM EDT Clinical Support [facility] [address] [place] [address] 02/10/2025 10:00 AM EST Office Visit [facility] [address] [place], [place] [phone] Amanda Fernandez [address] [place] [address] documented as of this encounter Procedures Procedure [...] EST) Sodium 146(H) 135 - 145 mmol/L [facility] Potassium 3.0(L) 3.3 - 5.1 mmol/L [facility] Chloride 107 96 - 108 mmol/L [facility] Carbon Dioxide 30(H) 22 - 29 mmol/L [facility] Anion Gap 12 12 - 20 [facility] Urea Nitrogen (BUN) 9 9 - 16 mg/dL [facility] Creatinine, Serum 0.54 0.5 - 1.4 mg/dL [facility] Creatinine Clr Calc Pharmacy 148.7 [facility] Comment:Provided height and weight: 162.56 cm,115.666 kg.eGFR (calculated from the MDRD study equation) and eCrCl(calculated from the Cockcroft-Gault equation) are based ondifferent parameters and may not yield comparable results.If eCrCl result is absurd, please check patient'sheight/weight. Estimated Glomerular Filt Rate >60 [facility] Comment:NOTE: For -Am erican individuals, multiply the result by 1.210.Chronic Kidney Disease: Estimated GFR < 60 mL/min/[id number] Kidney Disease: Estimated GFR < 15 mL/min/1.73m2 Glucose 117(H) 60 - 115 mg/dL [facility] Calcium 9.1 8.4 - 10.2 mg/dL [facility] Bilirubin, Total 0.4 0.0 - 1.0 mg/dL [facility] Aspartate Amino Transferase 19 5 - 31 U/L [facility] Alanine Aminotransferase 10 0 - 31 U/L [facility] Total Protein 6.9 6.5 - 8.0 g/dL [facility] Albumin Level 3.8 3.5 - 5.0 g/dL [facility] Alkaline Phosphatase 126(H) 39 - 117 U/L [facility] 03/13/2022 7:42 AM EST 03/13/2022 7:44 AM EST us [facility] External Provider LAB BLO OD ORDERABLES Final Result Performing Organization Address City/State/[facility] Co de Phone Number [facility] [address] [place] [phone] * (ABNORMAL) CBC auto differential (03/13/2022 7:42 AM EST) White Blood Count 10.3 4.8 - 10.8 X10*3/uL [facility] Red Blood Count 4.24 4.20 - 5.50 X10*6/uL [facility] Hemoglobin 11.0(L) 12.0 - 16.0 g/dl [facility] Hematocrit 36.1(L) 37.0 - 47.0 % [facility] Mean Corpuscular Volume 85.1 80.0 - 98.0 fL [facility] Mean Corpuscular Hemoglobin 25.9(L) 27.0 - 33.0 pg [facility] Mean Corpuscular HGB Conc 30.5(L) 31.0 - 35.0 g/dl [facility] Red Cell Distribution Width 15.9 11.0 - 16.0 % [facility] Platelet Count 266 160 - 400 X10*3/uL [facility] Mean Platelet Volume 10.1 9.4 - 12.3 fL [facility] Neutrophils Percent Auto 61.8 45 - 73 % [facility] Imm Gran Pct Auto 0.6(H) 0.0 - 0.4 % [facility] Lymphocytes Percent Auto 28.1 20 - 40 % [facility] Monocytes Percent Auto 7.3 2 - 11 % [facility] Eosinophils Percent Auto 1.8 0 - 4 % [facility] Basophils Percent Auto 0.4 0 - 2 % [facility] NRBC Pct Auto 0.0 0.0 - 0.2 /100WBC [facility] Neutrophils Absolute Auto 6.4 2.0 - 8.3 x10*3/uL [facility] Imm Gran Abs Auto 0.06(H) 0.00 - 0.03 X10*3/uL [facility] Lymphocytes Absolute Auto 2.9 1.2 - 4.9 X10*3/uL [facility] Monocytes Absolute Auto 0.8 0.1 - 1.2 X10*3/uL [facility] Eosinophils Absolute Auto 0.2 0.0 - 0.4 X10*3/uL [facility] Basophils Absolute Auto 0.0 0.0 - 0.2 X10*3/uL [facility] NRBC Abs Auto 0.000 0.0 - 0.012 X10*3/uL [facility] 03/13/2022 7:42 AM EST 03/13/2022 7:44 AM EST us [facility] External Provider LAB BLO OD ORDERABLES Final Result [facility] [address] [place] [address] [phone] * (ABNORMAL) GLUCOSE, WHOLE BLOOD (03/13/2022 5:16 AM EST) Glucose, Whole Blood 241(H) 60 - 115 mg/dL [facility] Comment:METER #: [id number] 1 03/13/2022 5:16 AM EST 03/13/2022 5:20 AM EST [facility] External Provider LAB BLO OD ORDERABLES Final Result [facility] [address] [place] [phone] documented in this encounter Visit Diagnoses Diagnosis Vitamin B12 deficiency- Primary Other B-complex deficiencies documented in this encounter Care Teams Program Developer Relationship Specialty Start Date End Date Jaida Martin DO [address] [place] [address] PCP - General Family Medicine 03/02/18 Pamela Andres Position Classification ManagerHooker Up 01/14/24 documented as of this encounter
== END 2024-08-23 07:34 | disposition home or self-care (01) ==
LOC: HO.US 07:33
PROVIDERS: PCP Family Medicine; Visit Provider Internal Medicine
DX: K76.0 Fatty (change of) liver, not elsewhere classified (principal)
CPT/HCPCS: 76700; 76981

== ENCOUNTER → 2024-08-23 07:34 | Outpatient (BNV) | payer MEDICAID, SELFPAY | PROVIDERS: PCP Family Medicine; Visit Provider Radiology Diagnostic Radiology | DX: R16.0 Hepatomegaly, not elsewhere classified (principal) | CPT/HCPCS: 76700 ==

== ENCOUNTER 2024-09-06 09:43 | Outpatient (AMB) | payer MEDICAID, SELFPAY ==
--- NOTE | 2024-09-06 10:00 | A.OFFVIS_ITS ---
Intake Intake Visit Reasons: 60 min Acquisition Marketing Manager Required: Yes Acquisition Marketing Manager Language: New Zealander Accompanied by: Self / Same As Patient Allergies No Known Allergies (No Known Allergies*) Allergy (Verified 08/19/24 15:35) HPI Comprehensive Diabetes Asmnt Most Recent Diabetes Results: 2 Creatinine, (0.5-1.4) 0.52 mg/dL 08/03/24 BUN, (9-16) 9 mg/dL 08/03/24 Sodium, (135-145) 143 mmol/L 08/03/24 Potassium, (3.3-5.1) 3.6 mmol/L 08/03/24 Chloride, (96-108) 105 mmol/L 08/03/24 Carbon Dioxide, (22-29) 32 mmol/L H 08/03/24 Calcium, (8.4-10.2) 8.6 mg/dL 08/03/24 AST, (5-31) 19 U/L 08/03/24 ALT, (0-31) 9 U/L 08/03/24 Total Protein, (6.5-8.0) 7.4 g/dL 08/03/24 Albumin, (3.5-5.0) 3.9 g/dL 08/03/24 [facility] Medical History Asthma HTN (hypertension) Hyperlipidemia 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, uncontrolled detention (current) use of insulin Diabetic nephropathy associated with type 2 diabetes mellitus 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 due to insulin Hypothyroidism Obstructive sleep apnea on CPAP Anemia NAFLD (nonalcoholic fatty liver disease) Sacroiliac joint dysfunction Coarse tremors Bleeding hemorrhoids Dental crowns present Respiratory failure Paranoia (psychosis) Stress incontinence Insomnia Anxiety Scoliosis of thoracolumbar spine Morbid obesity Chronic pain syndrome Inappropriate sinus tachycardia GERD (gastroesophageal reflux disease) Spondylosis of lumbar region without myelopathy or radiculopathy Gastroparesis Hemorrhoids Migraine Patellofemoral arthritis Patella-femoral syndrome Lumbar spondylosis Fibromyalgia Tubular adenoma Family history of colon cancer Vitamin D deficiency Genu valgum Palpitations Chest pain Surgical History Status post hemorrhoidectomy History of hemorrhoidectomy (~09/09/22) History of surgery Hx of section H/O esophagogastroduodenoscopy History of colonoscopy History of arthroscopy of right knee History of bilateral carpal tunnel release History of bladder surgery History of tubal ligation Hx of tonsillectomy Family History Father Stomach cancer Mother Heart disease HTN (hypertension) Diabetes Son No problems noted. 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) Household Members: Family Household Members Other:: adult son Housing: Apartment Are you a primary healthcare financial analyst to a significant other at home: No Do you presently have visiting nurse or other home services: Yes ([employer] daily) Alcohol intake: never Patient Tobacco Use Status: Never used Tobacco Second Hand Smoke Exposure: No service: No Current occupational status: disabled Current occupation: lt handed Sexual orientation: Straight/Heterosexual Gender identity: Female Female Reproductive History Menstrual Age of Menarche: 17 Assessment & Plan Assessment & Plan (1) 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, uncontrolled: Code(s): E11.65 - Type 2 diabetes mellitus with hyperglycemia Qualifiers: Glycemic state: with hypoglycemia Coma presence: without coma Q ualified Code(s): E11.649 - Type 2 diabetes mellitus with hypoglycemia without coma Plan: Personal Continuous Glucose Monitor: Patients CGM information reviewed Patient uses Ortiz 3 +sensors Patient's last A1c 7.5% on 08/11/24, improvement from 9.2% in April 2024 Patient reports she has decreased amount of carbohydrate at meals, to maintain glucose levels in range of 70-180 md/dL 84% of the time Learning objectives: The patient was provided with verbal and written education on the following topics as outlined below. Diabetes Complications: ?Nephropathy :Kidney Disease ?diabetes can damage the kidneys, which is not only can cause them to fail but can make them lose their ability to filter waste from the blood? ?Retinopathy: Eye complications ?Retinopathy? is the commonest long-term complication of diabetes. It is leading cause of blindness Besides, Retinopathy- People with diabetes? are also prone to cataract and Glaucoma. ?Neuropathy: Nerve damage -It involves temporary or permanent damage to nerve tissue. Nerve tissue gets injured mainly due to decreased blood flow and rise in blood glucose levels. This damage can lead to pain , or loss of sensation it can also include sexual dysfunction in both men and women ? Infections poor healing: People with diabetes? have increased susceptibility to various infections, such as? pneumonias, pyelonephritis, carbuncles and diabetic ulcers. This may be due to poor blood supply, reduced cellular immunity or hyperglycemia. ?Heart Disease And Stroke: People with diabetes are four times more prone to develop Heart disease than those who do not have diabetes ?Depression: Feeling down once in awhile is normal, but some people feel sadness that just won't go away. Life for them seems hopeless. Feeling this way most of the day for two weeks or more is a sign of serious depression ?Gum Disease: People get gum disease when plaque destroys the gums and bone around the teeth. People with diabetes can get gum disease from having high blood glucose levels for a long time Patient able to insert sensor independently at home without issue.? Portions of this note were created using voice recognition software, please excuse any words or phrases that may have been misinterpreted. Patient Instructions: Incluir actividad diaria regular. ADA recomienda 30 minutos de ejercicio 5 d?as a la semana. P?rdida de peso, hable con el PCP o el cardi?logo antes de comenzar un nuevo plan. Mida el nivel de az?car en la fly seg?n las indicaciones; Ayuno y comida m?s radha de 2hpp. Observe las tendencias en los resultados. Utilice los resultados y eval?e c?mo los alimentos, la actividad f?la y los medicamentos afectan los resultados de az?car en la fly. Lleve el gluc?metro o CGM a la pr?xima visita. Conocer los medicamentos para la diabetes, leblanc acci?n, los efectos secundarios, la eficacia, la toxicidad, la dosis prescrita, el momento y la frecuencia de administraci?n apropiados, el efecto de las dosis olvidadas y retrasadas y las instrucciones de almacenamiento, viaje y seguridad. T?cnicas de resoluci?n de problemas para el seguimiento de episodios de hipo/hiperglucemia y tratamientos. Reducir los comportamientos de reducci?n de riesgos, dejar de fumar, ex?menes regulares de ojos, pies y dentales. Coding Level of Care Code Est Pt Level 1 (33891) Diagnoses Uncontrolled type 2 diabetes mellitus with hypoglycemia without coma E11.649 Glycemic state: with hypoglycemia Coma presence: without coma
--- OUTSIDE RECORDS SUMMARY | 2024-09-06 10:18 | XMS_ITS | Clinical Summary ---
Author Organization [employer] [facility] ity Address [address] [place] [address] Care Team Providers Care Manager Truck Name Role Phone Unavailable Primary Care Provider [...] 2023-2 5 season) 2023 Influenza Vaccine (#1) 2024 HIB Vaccines Aged Out No longer eligi [...] age to complete this topic Meningococcal B Vaccine Aged Out No l onger eligible based on patient's age to complete this topic RSV Immunization Patients Un nabil 20 months Aged Out No longer eligible b ased on patient's age to complete this topic Varicella Vaccines Aged Out No longer eligible based on patient's age to complete this topic
--- OUTSIDE RECORDS SUMMARY | 2024-09-06 10:18 | XMS_ITS | Encounter Summary ---
Author Organization [employer] Address [address] [facility] [address] [place] [address] Care Team Providers Care Office Machines Teacher Name Role Phone Jaida Martin DO Primary Care Provider Encounter Details Date Type Department Care Team (Late st Contact Info) Description 03/12/2022 Orders Only [facility] [address] [place] [address] Jaida Martin DO [address] [place] [phone] Vitamin B12 deficiency (Primary Dx) Social History [...] Care Team (Late st Contact Info) Description 10/17/2024 9:30 AM EDT Clinical Support [facility] [address] [place] [address] 02/10/2025 10:00 AM EST Office Visit [facility] [address] [place], [place] [phone] Amanda Fernandez [address] [place] [address] documented as of this encounter Procedures Procedure [...] 146(H) 135 - 145 mmol/L [facility] Potassium 3.0(L) 3.3 - 5.1 mmol/L [facility] Chloride 107 96 - 108 mmol/L [facility] Carbon Dioxide 30(H) 22 - 29 mmol/L [facility] Anion Gap 12 12 - 20 [facility] Urea Nitrogen (BUN) 9 9 - 16 mg/dL [facility] Creatinine, Serum 0.54 0.5 - 1.4 mg/dL [facility] Creatinine Clr Calc Pharmacy 148.7 [facility] Comment:Provided height and weight: 162.56 cm,115.666 kg.eGFR (calculated from the MDRD study equation) and eCrCl(calculated from the Cockcroft-Gault equation) are based ondifferent parameters and may not yield comparable results.If eCrCl result is absurd, please check patient'sheight/weight. Estimated Glomerular Filt Rate >60 [facility] Comment:NOTE: For -Am erican individuals, multiply the result by 1.210.Chronic Kidney Disease: Estimated GFR < 60 mL/min/[id number] Kidney Disease: Estimated GFR < 15 mL/min/1.73m2 Glucose 117(H) 60 - 115 mg/dL [facility] Calcium 9.1 8.4 - 10.2 mg/dL [facility] Bilirubin, Total 0.4 0.0 - 1.0 mg/dL [facility] Aspartate Amino Transferase 19 5 - 31 U/L [facility] Alanine Aminotransferase 10 0 - 31 U/L [facility] Total Protein 6.9 6.5 - 8.0 g/dL [facility] Albumin Level 3.8 3.5 - 5.0 g/dL [facility] Alkaline Phosphatase 126(H) 39 - 117 U/L [facility] 03/13/2022 7:42 AM EST 03/13/2022 7:44 AM EST us [facility] External Provider LAB BLO OD ORDERABLES Final Result [facility] [address] [place] [address] [phone] * (ABNORMAL) CBC auto differential (03/13/2022 7:42 AM EST) White Blood Count 10.3 4.8 - 10.8 X10*3/uL [facility] Red Blood Count 4.24 4.20 - 5.50 X10*6/uL [facility] Hemoglobin 11.0(L) 12.0 - 16.0 g/dl [facility] Hematocrit 36.1(L) 37.0 - 47.0 % [facility] Mean Corpuscular Volume 85.1 80.0 - 98.0 fL [facility] Mean Corpuscular Hemoglobin 25.9(L) 27.0 - 33.0 pg [facility] Mean Corpuscular HGB Conc 30.5(L) 31.0 - 35.0 g/dl [facility] Red Cell Distribution Width 15.9 11.0 - 16.0 % [facility] Platelet Count 266 160 - 400 X10*3/uL [facility] Mean Platelet Volume 10.1 9.4 - 12.3 fL [facility] Neutrophils Percent Auto 61.8 45 - 73 % [facility] Imm Gran Pct Auto 0.6(H) 0.0 - 0.4 % [facility] Lymphocytes Percent Auto 28.1 20 - 40 % [facility] Monocytes Percent Auto 7.3 2 - 11 % [facility] Eosinophils Percent Auto 1.8 0 - 4 % [facility] Basophils Percent Auto 0.4 0 - 2 % [facility] NRBC Pct Auto 0.0 0.0 - 0.2 /100WBC [facility] Neutrophils Absolute Auto 6.4 2.0 - 8.3 x10*3/uL [facility] Imm Gran Abs Auto 0.06(H) 0.00 - 0.03 X10*3/uL [facility] Lymphocytes Absolute Auto 2.9 1.2 - 4.9 X10*3/uL [facility] Monocytes Absolute Auto 0.8 0.1 - 1.2 X10*3/uL [facility] Eosinophils Absolute Auto 0.2 0.0 - 0.4 X10*3/uL [facility] Basophils Absolute Auto 0.0 0.0 - 0.2 X10*3/uL [facility] NRBC Abs Auto 0.000 0.0 - 0.012 X10*3/uL [facility] 03/13/2022 7:42 AM EST 03/13/2022 7:44 AM EST [facility] External Provider LAB BLO OD ORDERABLES Final Result Performing Organization Address [facility] Co de Phone Number [facility] [address] [place] [address] [phone] * (ABNORMAL) GLUCOSE, WHOLE BLOOD (03/13/2022 5:16 AM EST) Glucose, Whole Blood 241(H) 60 - 115 mg/dL [facility] Comment:METER #: [id number] 1 03/13/2022 5:16 AM EST 03/13/2022 5:20 AM EST [facility] External Provider LAB BLO OD ORDERABLES Final Result Performing Organization Address City/[facility] Co de Phone Number [facility] [address] [place] [address] [phone] documented in this encounter Visit Diagnoses Diagnosis Vitamin B12 deficiency- Primary Other B-complex deficiencies documented in this encounter Care Teams Office Machines Teacher Relationship Specialty Start Date End Date Jaida Martin DO [address] [place] [address] PCP - General Family Medicine 03/02/18 Pamela Andres Rubber Goods RepairerThread Spinner 01/14/24 documented as of this encounter
--- OUTSIDE RECORDS SUMMARY | 2024-09-06 10:18 | XMS_ITS | Clinical Summary ---
Author Organization [facility] Address [address] [place] [address] Care Team Providers Care Pot Room Supervisor Name Role Phone Jaida Martin Primary Care Provider [phone]- [phone] Allergies No known active allergies Medications cloNIDine [...] radicu lopathy 01/28/2023 Vitamin D deficiency 01/28/2023 Family History Medical History Relation Name Comments [...] 85 03/08/2024 8:52 AM EST Temperature 37 C (98.6 F) 01/28/2023 8:29 AM EST Respiratory Rate - - Oxygen Saturation 97% 03/08/2024 8:52 AM EST Inhaled Oxygen Concentration - - Weight 108 kg (238 lb) 03/08/2024 8:52 AM EST Height - - Body Mass Index - - Plan of Treatment Upcoming Encounters Date Type Department Care Team (Late st Contact Info) Description 05/01/2025 2:30 PM EST Follow-Up [facility] Neurology [address] [place] [phone] Nancy Petty MD [address] [place] [address] [phone] Health Maintenance Due Date Last Done Comments Cervical Cancer Screening 1967 Cologuard 1967 Colonoscopy 1967 HPV and Pap Smear 1967 Hepatitis C Screening 1967 Pap Smear 1967 Sigmoidoscopy 1967 Ophthalmology Exam 07/10/1977 Urine Microalbumin 07/10/1977 Alcohol/Substance Use Screening 03/02/2024 Depression Screening and Follow-Up 03/02/2024 Social Drivers of Health Brii ual Screening 03/02/2024 Hemoglobin A1C 04/07/2024 10/06/2023, 11/18/2022 Mammogram 07/29/2024 07/29/2022, 10/31, 09/11/2017 Influenza Vaccine (#1) 2024 , 11/18/2022, 11/21/2021, Additional history exists Colon Cancer Screening 12/27/2024 FOBT / Fit Test 12/27/2024 12/28/2023, 12/12/2022 Basic Metabolic Panel 12/29/2024 12/30/2023 , 12/28/2023, 12/12/2022 DTaP,Tdap,and Td Vaccines (4 - Td or Tdap) 11/15/2030 11/15/2020, 05/31/2009, 04/23/2009, Additional history exists RSV Vaccine (60+ years old a nd patients) (1 - 1-dose 75+ series) 07/10/2042 Hepatitis B Vaccines Completed 07/14/2008, 06/12/2008, 10/28/2006, Additional history exists HIV Screening Completed 03/12/2020, 03/12/2020 Zoster Vaccines Completed 09/11/2020, 07/05/2020 Pneumococcal Vaccine: 50+ Years Completed 11/21/2021, 03/21/2018, 10/17/2012, Additional history exists COVID-19 Vaccine Completed 01/22/2024, , 07/30/2021, Additional history exists Procedures * Due to [place] law, this organization might not be sharing negative HIV tests. Procedure Name Priority Date/Time Associated Diagnosis Comments COMPREHENSIVE METABOLIC PANEL Routine 12/30/2023 9:51 AM EDT Intention tremor from Last 3 Months or Most Recently Relevant to Health Maintenance Results * Due to [facility] law, this organization might not be sharing negative HIV tests. * (ABNORMAL) Comprehensive Metabolic Panel (12/30/2023 9:51 AM EDT) NA 140 135 - 145 mmol/L 12/30/2023 11:25 AM EDT [facility] K 3.6 3.5 - 5.3 mmol/L 12/30/2023 11:25 AM EDT [facility] Cl 102 98 - 107 mmol/L 12/30/2023 11:25 AM EDT [facility] CO2 27 22 - 32 mmol/L 12/30/2023 11:25 AM EDT [facility] Anion Gap 11 5 - 15 12/30/2023 11:25 AM [facility] Glucose 171(H) 65 - 99 mg/dL 12/30/2023 11:25 AM [facility] Creatinine 0.41(L) 0.50 - 1.20 mg/dL 12/30/2023 11:25 AM [facility] Calcium 9.0 8.6 - 10.5 mg/dL 12/30/2023 11:25 AM [facility] Total Protein 7.6 6.0 - 8.0 g/dL 12/30/2023 11:25 AM [facility] Albumin 4.2 3.5 - 5.2 g/dL 12/30/2023 11:25 AM [facility] Bilirubin, Total 0.3 0.2 - 1.2 mg/dL 12/30/2023 11:25 AM [facility] Alkaline Phosphatase 152(H) 35 - 129 U/L 12/30/2023 11:25 AM [facility] AST 19 10 - 40 U/L 12/30/2023 11:25 AM [facility] ALT 12 10 - 40 U/L 12/30/2023 11:25 AM [facility] BUN 12 7 - 23 mg/dL 12/30/2023 11:25 AM [facility] eGFR >90 >=60 mL/min/1 .73m2 12/30/2023 11:25 AM [facility] Comment:The estimated glomer [...] - 4.2 g/dL 12/30/2023 11:25 AM EDT [facility] A/G Ratio 1.2(L) 1.5 - 3.0 12/30/2023 11:25 AM EDT [facility] Blood Structure of peripheral vein / Unknown Venipuncture / Unknown 12/30/2023 9:51 AM EDT 12/30/2023 10:39 AM EDT us Nancy Petty MD LAB BLOOD ORDERABLES Fi nal Result [facility] [address] [place] [address], from Last 3 Months or Most Recently Relevant to Health Maintenance Insurance [facility] Care Teams Pot Room Supervisor Relationship Specialty Start Date End Date Jaida Martin [address] [place] [phone] PCP - General Family Medicine 01/20/23
== END 2024-09-06 10:54 | disposition home or self-care (01) ==
LOC: HO.ENCR 09:44
PROVIDERS: PCP Family Medicine; Visit Provider Registered Nurse Diabetes Educator
DX: E11.649 Type 2 diabetes mellitus with hypoglycemia without coma (principal)

== ENCOUNTER → 2024-09-06 09:43 | Outpatient (BNVA) | payer MEDICAID, SELFPAY | PROVIDERS: PCP Family Medicine; Visit Provider Registered Nurse Diabetes Educator | DX: E11.65 Type 2 diabetes mellitus with hyperglycemia (principal); E11.21 Type 2 diabetes mellitus with diabetic nephropathy; E11.649 Type 2 diabetes mellitus with hypoglycemia without coma; Z79.4 Long term (current) use of insulin | CPT/HCPCS: 99211 ==

== ENCOUNTER 2024-09-07 11:12 | Outpatient (AMB) | payer MEDICAID, SELFPAY ==
[2024-09-07 11:17] VITALS: BMI 39.3
--- NOTE | 2024-09-07 11:17 | A.OFFVIS_ITS ---
Vital Signs 09/07/24 11:17 Height 5 ft 4 in Weight 229 lb BMI 39.3 Intake Visit Reasons: INJ- B/L knee Durolane injection Intake Note: Candace is a 59 year old female who presents today for bilateral knee Durolane injections. Patient states that since last visit the injection did help for about seven months then wore off. Healthcare Applications Analyst Required: Yes Healthcare Applications Analyst Services: Healthcare Applications Analyst Offered & Declined Healthcare Applications Analyst Name: Sheldon Huggins - Daughter Allergies No Known Allergies (No Known Allergies*) Allergy (Verified 09/07/24 11:20) Medication List - Last Reconciled 09/07/24 by Rahul Loredo PA-C acetaminophen ER 650 mg PO Q8H PRN albuterol sulfate 2.5 mg inhalation Q4H PRN aripiprazole 15 mg PO BEDTIME aspirin 81 mg PO DAILY benzonatate 200 mg PO TID PRN blood sugar diagnostic (FreeStyle Lite Strips) Test blood sugars four times daily when not wearing sensor or when having hypoglycemia or hyperglycemia on sensor blood-glucose meter (FreeStyle Lite Meter kit) As directed blood-glucose sensor (FreeStyle Ortiz 3 Plus Sensor device) USE DIRECTED blood-glucose,secretarial teacher,cont (FreeStyle Ortiz 3 [place]) Use daily As directed to monitor blood glucose carbidopa-levodopa 25-100 mg 1 tab PO BID cholecalciferol (vitamin D3) 50 mcg PO DAILY clonazepam 1 mg PO TID PRN clonidine HCl 0.1 mg PO BEDTIME PRN docusate sodium 100 mg PO BID ferrous sulfate 325 mg PO Q OTHER DAY flash glucose scanning reader (FreeStyle Ortiz 2 [place]) use daily As directed to monitor blood glucose readings flash glucose sensor (FreeStyle Ortiz 2 Sensor kit) use daily As directed to monitor glucose fluticasone furoate 200 mcg/actuation (Arnuity Ellipta) 1 inh inhalation DAILY furosemide 20 mg PO QAM gabapentin 400 mg PO TID insulin regular hum U-500 conc (Humulin R U-500 (Conc) Insulin Kwikpen) 50 units in the am 45 units in the pm subcutaneously 2 times a day; 30 days levothyroxine 1 tab PO DAILY@0600 lidocaine 5% 1 patch transdermal DAILY melatonin 5 - 10 mg PO BEDTIME PRN metformin 1,000 mg (2 x 500 mg) PO BID 90 days nortriptyline 75 mg PO BEDTIME nortriptyline 75 mg PO BEDTIME omeprazole 20 mg PO DAILY@0630 pen needle, diabetic (Pentips Pen Needle) USE DIRECTED TWICE DAILY propranolol 80 mg PO BID 90 days rosuvastatin (Crestor) 20 mg PO BEDTIME thiamine HCl (vitamin B1) 100 mg PO DAILY tiotropium bromide 2.5 mcg/actuation (Spiriva Respimat) 2 puffs inhalation DAILY 30 days tirzepatide (Mounjaro) 7.5 mg (0.5 mL) subcut QWEEK TRUEplus Lancets (lancets) 4 times a day NS valsartan 160 mg PO DAILY HPI HPI INJ- B/L knee Durolane injection: Details: 59-year-old female returns to the office today for bilateral drilling injections. Right knee is worse than left knee. [facility] Medical History Asthma HTN (hypertension) Hyperlipidemia 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, uncontrolled halfway (current) use of insulin Diabetic nephropathy associated with type 2 diabetes mellitus 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 due to insulin Hypothyroidism Obstructive sleep apnea on CPAP Anemia NAFLD (nonalcoholic fatty liver disease) Sacroiliac joint dysfunction Coarse tremors Bleeding hemorrhoids Dental crowns present Respiratory failure Paranoia (psychosis) Stress incontinence Insomnia Anxiety Scoliosis of thoracolumbar spine Morbid obesity Chronic pain syndrome Inappropriate sinus tachycardia GERD (gastroesophageal reflux disease) Spondylosis of lumbar region without myelopathy or radiculopathy Gastroparesis Hemorrhoids Migraine Patellofemoral arthritis Patella-femoral syndrome Lumbar spondylosis Fibromyalgia Tubular adenoma Family history of colon cancer Vitamin D deficiency Genu valgum Palpitations Chest pain Surgical History Status post hemorrhoidectomy History of hemorrhoidectomy (~09/09/22) History of surgery Hx of section H/O esophagogastroduodenoscopy History of colonoscopy History of arthroscopy of right knee History of bilateral carpal tunnel release History of bladder surgery History of tubal ligation Hx of tonsillectomy Family History Father Stomach cancer Mother Heart disease HTN (hypertension) Diabetes Son No problems noted. 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) Household Members: Family Household Members Other:: adult son Housing: Apartment Are you a primary adult day care worker to a significant other at home: No Do you presently have visiting nurse or other home services: Yes (DIRECTOR OPERATIONS BROADCAST daily) Alcohol intake: never Patient Tobacco Use Status: Never used Tobacco Second Hand Smoke Exposure: No service: No Current occupational status: disabled Current occupation: lt handed Sexual orientation: Straight/Heterosexual Gender identity: Female Female Reproductive History Menstrual Age of Menarche: 17 Review of Systems Const All systems reviewed & are unremarkable except as noted in HPI and below Physical Exam Vital Signs: BMI result Body Mass Index 39.3 Extrem Other: Bilateral knee: Skin intact, no erythema or joint effusion. Tenderness along the medial and lateral joint line. Full ROM with crepitus. Negative Mami?s. No ligamentous laxity. NVI. Office Procedures AMB Joint Injection/Aspiration Joint Injection/Aspiration Details: durolane Primary Site: right knee Secondary Site: left knee Prep: site was prepped using aseptic technique, ethochloride spray was applied and injection warnings given Injected: in the joint Approach Used: anterolateral Procedure: The patient tolerated the procedure well Coding 53706 - Glenohumeral/Tronchanteric Bursa/Intraarticular Procedure code (CPT) selection complete Assessment & Plan Assessment & Plan (1) Osteoarthritis of knees, bilateral: Code(s): M17.0 - Bilateral primary osteoarthritis of knee Category: Medical Qualifiers: Osteoarthritis type: primary Qualified Code(s): M17.0 - Bilateral primary osteoarthritis of knee Plan: Plan was to proceed with gel injection today. Durolane Injection performed today which the patient tolerated well. She will rest ice and use anti-inflammatories as needed for the next several days. I will see her back prn. Orders: Orders XR Knee Joseluis 3V Today M25.561 - Pain in right knee, M25.562 - Pain in left knee Coding Level of Care Code Procedure Only Diagnoses Primary osteoarthritis of both knees M17.0 Osteoarthritis type: primary CPT Codes Coding - Joint 7: 77017 - Glenohumeral/Tronchanteric Bursa/Intraarticular ([id number])
--- OUTSIDE RECORDS SUMMARY | 2024-09-07 12:26 | XMS_ITS | Clinical Summary ---
Author Organization [facility] Address [address] [place] [address] Care Team Providers Care Flue Blower Name Role Phone Jaida Martin Primary Care Provider +1- [phone] Allergies No known active allergies Medications cloNIDine [...] Info) Description 05/01/2025 2:30 PM EST Follow-Up [facility] Neurology [address] [place] [phone] Nancy Petty MD [address] [place] [address] [phone] Health Maintenance Due Date Last Done Comments [...] Additional history exists Procedures * Due to [place] [employer] law, this organization might not be sharing negative HIV tests. Procedure Name Priority Date/Time Associated Diagnosis Comments COMPREHENSIVE METABOLIC PANEL Routine 12/30/2023 9:51 AM EDT Intention tremor from Last 3 Months or Most Recently Relevant to Health Maintenance Results * Due to [facility] law, this organization might not be sharing negative HIV tests. * (ABNORMAL) Comprehensive Metabolic Panel (12/30/2023 9:51 AM EDT) NA 140 135 - 145 mmol/L 12/30/2023 11:25 AM EDT [facility] K 3.6 3.5 - 5.3 mmol/L 12/30/2023 11:25 AM EDT [facility] Cl 102 98 - 107 mmol/L 12/30/2023 11:25 AM EDT [facility] CO2 27 22 - 32 mmol/L 12/30/2023 11:25 AM EDT [facility] Anion Gap 11 5 - 15 12/30/2023 11:25 AM [facility] Glucose 171(H) 65 - 99 mg/dL 12/30/2023 11:25 AM [facility] Creatinine 0.41(L) 0.50 - 1.20 mg/dL 12/30/2023 11:25 AM [facility] Calcium 9.0 8.6 - 10.5 mg/dL 12/30/2023 11:25 AM [facility] Total Protein 7.6 6.0 - 8.0 g/dL 12/30/2023 11:25 AM [facility] Albumin 4.2 3.5 - 5.2 g/dL 12/30/2023 11:25 AM [facility] Bilirubin, Total 0.3 0.2 - 1.2 mg/dL 12/30/2023 11:25 AM [facility] Alkaline Phosphatase 152(H) 35 - 129 U/L 12/30/2023 11:25 AM [facility] AST 19 10 - 40 U/L 12/30/2023 11:25 AM [facility] ALT 12 10 - 40 U/L 12/30/2023 11:25 AM [facility] BUN 12 7 - 23 mg/dL 12/30/2023 11:25 AM [facility] eGFR >90 >=60 mL/min/1 .73m2 12/30/2023 11:25 AM [facility] Comment:The estimated glomer [...] - 4.2 g/dL 12/30/2023 11:25 AM EDT [facility] A/G Ratio 1.2(L) 1.5 - 3.0 12/30/2023 11:25 AM EDT [facility] Blood Structure of peripheral vein / Unknown Venipuncture / Unknown 12/30/2023 9:51 AM EDT 12/30/2023 10:39 AM EDT us Nancy Petty MD LAB BLOOD ORDERABLES Fi nal Result [facility] [address] [place] [address], from Last 3 Months or Most Recently Relevant to Health Maintenance Insurance [facility] Care Teams Flue Blower Relationship Specialty Start Date End Date Jaida Martin [address] [place] [phone] PCP - General Family Medicine 01/20/23
--- OUTSIDE RECORDS SUMMARY | 2024-09-07 12:26 | XMS_ITS | Encounter Summary ---
Author Organization [employer] Address [address] [facility] [address] [place] [address] Care Team Providers Care Bowstring Maker Name Role Phone Jaida Martin DO Primary Care Provider Encounter Details Date Type Department Care Team (Late st Contact Info) Description 03/12/2022 Orders Only [facility] MEDICINE [address] [place] [address] Jaida Martin DO [address] [place] [address] Vitamin B12 deficiency (Primary Dx) Social History [...] Description 10/17/2024 9:30 AM EDT Clinical Support [facility] MEDICINE [address] [place] [address] 02/10/2025 10:00 AM EST Office Visit [facility] ADULT DENTAL [address] [place], [place] [phone] Amanda Fernandez [address] [place] [address] documented as of this encounter Procedures Procedure [...] EST) Sodium 146(H) 135 - 145 mmol/L [facility] Potassium 3.0(L) 3.3 - 5.1 mmol/L [facility] Chloride 107 96 - 108 mmol/L [facility] Carbon Dioxide 30(H) 22 - 29 mmol/L [facility] Anion Gap 12 12 - 20 [facility] Urea Nitrogen (BUN) 9 9 - 16 mg/dL [facility] Creatinine, Serum 0.54 0.5 - 1.4 mg/dL [facility] Creatinine Clr Calc Pharmacy 148.7 [facility] Comment:Provided height and weight: 162.56 cm,115.666 kg.eGFR (calculated from the MDRD study equation) and eCrCl(calculated from the Cockcroft-Gault equation) are based ondifferent parameters and may not yield comparable results.If eCrCl result is absurd, please check patient'sheight/weight. Estimated Glomerular Filt Rate >60 [facility] Comment:NOTE: For -Am erican individuals, multiply the result by 1.210.Chronic Kidney Disease: Estimated GFR < 60 mL/min/1.70a4Rurvlo Kidney Disease: Estimated GFR < 15 mL/min/1.73m2 Glucose 117(H) 60 - 115 mg/dL [facility] Calcium 9.1 8.4 - 10.2 mg/dL [facility] Bilirubin, Total 0.4 0.0 - 1.0 mg/dL [facility] Aspartate Amino Transferase 19 5 - 31 U/L [facility] Alanine Aminotransferase 10 0 - 31 U/L [facility] Total Protein 6.9 6.5 - 8.0 g/dL [facility] Albumin Level 3.8 3.5 - 5.0 g/dL [facility] Alkaline Phosphatase 126(H) 39 - 117 U/L [facility] 03/13/2022 7:42 AM EST 03/13/2022 7:44 AM EST us [facility] External Provider LAB BLO OD ORDERABLES Final Result [facility] [address] [place] [phone] [phone] * (ABNORMAL) CBC auto differential (03/13/2022 7:42 AM EST) White Blood Count 10.3 4.8 - 10.8 X10*3/uL [facility] Red Blood Count 4.24 4.20 - 5.50 X10*6/uL [facility] Hemoglobin 11.0(L) 12.0 - 16.0 g/dl [facility] Hematocrit 36.1(L) 37.0 - 47.0 % [facility] Mean Corpuscular Volume 85.1 80.0 - 98.0 fL [facility] Mean Corpuscular Hemoglobin 25.9(L) 27.0 - 33.0 pg [facility] Mean Corpuscular HGB Conc 30.5(L) 31.0 - 35.0 g/dl [facility] Red Cell Distribution Width 15.9 11.0 - 16.0 % [facility] Platelet Count 266 160 - 400 X10*3/uL [facility] Mean Platelet Volume 10.1 9.4 - 12.3 fL [facility] Neutrophils Percent Auto 61.8 45 - 73 % [facility] Imm Gran Pct Auto 0.6(H) 0.0 - 0.4 % [facility] Lymphocytes Percent Auto 28.1 20 - 40 % [facility] Monocytes Percent Auto 7.3 2 - 11 % [facility] Eosinophils Percent Auto 1.8 0 - 4 % [facility] Basophils Percent Auto 0.4 0 - 2 % [facility] NRBC Pct Auto 0.0 0.0 - 0.2 /100WBC [facility] Neutrophils Absolute Auto 6.4 2.0 - 8.3 x10*3/uL [facility] Imm Gran Abs Auto 0.06(H) 0.00 - 0.03 X10*3/uL [facility] Lymphocytes Absolute Auto 2.9 1.2 - 4.9 X10*3/uL [facility] Monocytes Absolute Auto 0.8 0.1 - 1.2 X10*3/uL [facility] Eosinophils Absolute Auto 0.2 0.0 - 0.4 X10*3/uL [facility] Basophils Absolute Auto 0.0 0.0 - 0.2 X10*3/uL [facility] NRBC Abs Auto 0.000 0.0 - 0.012 X10*3/uL [facility] 03/13/2022 7:42 AM EST 03/13/2022 7:44 AM EST [facility] External Provider LAB BLO OD ORDERABLES Final Result Performing Organization Address [facility] Co de Phone Number [facility] [address] [place] [address] [phone] * (ABNORMAL) GLUCOSE, WHOLE BLOOD (03/13/2022 5:16 AM EST) Glucose, Whole Blood 241(H) 60 - 115 mg/dL [facility] Comment:METER #: [id number] 1 03/13/2022 5:16 AM EST 03/13/2022 5:20 AM EST [facility] External Provider LAB BLO OD ORDERABLES Final Result Performing Organization Address [facility] Co de Phone Number [facility] [address] [place] [address] [phone] documented in this encounter Visit Diagnoses Diagnosis Vitamin B12 deficiency- Primary Other B-complex deficiencies documented in this encounter Care Teams Bowstring Maker Relationship Specialty Start Date End Date Jaida Martin DO [address] [place] [address] PCP - General Family Medicine 03/02/18 Pamela Andres Financial Aid AdministratorReligious Education Teacher 01/14/24 documented as of this encounter
--- OUTSIDE RECORDS SUMMARY | 2024-09-07 12:27 | XMS_ITS | Clinical Summary ---
Author Organization [facility] [facility] Address [address] [place] [address] Care Team Providers Care Edi Manager Name Role Phone Unavailable Primary Care Provider [...]
== END 2024-09-07 11:47 | disposition home or self-care (01) ==
LOC: HO.HOS 11:13
PROVIDERS: PCP Family Medicine; Visit Provider Physician Assistant
DX: M17.0 Bilateral primary osteoarthritis of knee (principal)
CPT/HCPCS: 20610

== ENCOUNTER 2024-09-07 11:33 | Outpatient (REF) | payer MEDICAID, SELFPAY ==
--- NOTE | ~2024-09-07 | XR_ITS ---
XR KNEE JOSELUIS 3V HISTORY: Bilateral knee pain. COMPARISON: 07/12/2020, 06/15/2019. TECHNIQUE: AP view bilateral knees standing, lateral and patellofemoral views bilateral knees. FINDINGS: RIGHT KNEE: No fracture, dislocation, or suspicious bone lesion. Mild narrowing with mild osteophytic spurring in the medial, lateral, and patellofemoral compartments. Normal patellar alignment. No abnormal patellar tilt. Mild spurring of the tibial spines. No evidence of joint effusion. Soft tissues appear normal. LEFT KNEE: No fracture, dislocation, or suspicious bone lesion. Mild narrowing with mild osteophytic spurring in the medial, lateral, and patellofemoral compartments. Normal patellar alignment. No abnormal patellar tilt. Mild spurring of the tibial spines. No evidence of joint effusion. Soft tissues appear normal. XR/XR Knee Joseluis 3V IMPRESSION: RIGHT KNEE: 1. No acute bony abnormalities. 2. Mild tricompartmental osteoarthrosis. LEFT KNEE: 1. No acute bony abnormalities. 2. Mild tricompartmental osteoarthrosis. Electronically signed by: Jair Driver MD 09/07/2024 12:27 PM EDT
== END 2024-09-07 11:34 | disposition home or self-care (01) ==
LOC: HO.HOSX 11:33
PROVIDERS: Visit Provider Physician Assistant
DX: M17.0 Bilateral primary osteoarthritis of knee (principal); M25.561 Pain in right knee; M25.562 Pain in left knee; Z79.899 Other long term (current) drug therapy
CPT/HCPCS: 20610; 73562; J7318

== ENCOUNTER → 2024-09-07 11:35 | Outpatient (BNV) | payer MEDICAID, SELFPAY | PROVIDERS: Visit Provider Radiology Diagnostic Radiology | DX: M17.0 Bilateral primary osteoarthritis of knee (principal) | CPT/HCPCS: 73562 ==

== ENCOUNTER 2024-09-13 12:29 | Outpatient (AMB) | payer MEDICAID, SELFPAY ==
[2024-09-13 12:57] VITALS: BP 122/78; PULSE 81; O2SAT 97; BMI 39.0
--- NOTE | 2024-09-13 12:57 | MHC.OFFVIS ---
Vital Signs 09/13/24 12:57 Height 5 ft 4 in Weight 227 lb BMI 39.0 BP 122/78 Blood Pressure Location Rt brachial Position Sitting Pulse 81 Pulse Source Pulse Oximeter Pulse Oximetry (%) 97 Oxygen Delivery Method Room Air Intake Visit Reasons: Asthma Net Finisher Required: Yes Net Finisher Name: Jaida Mendoza KarenMitzy Allergies No Known Allergies (No Known Allergies*) Allergy (Verified 09/07/24 11:20) HPI HPI Asthma: Details: 59-year-old lady, nonsmoker, with underlying DINA previously on CPAP managed by her primary care provider, followed for restrictive ventilatory defect and asthma.? After the last office visit patient is PCP changed her AirDuo to Arnuity and she continued on Spiriva and albuterol MDI with good control of her symptoms. Patient is unable to tolerate her CPAP therapy. Today patient is complain of nonproductive cough at night associated with acid reflux with suboptimal control with b.i.d. PPI. 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 of insulin Diabetic nephropathy associated with type 2 diabetes mellitus 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 due to insulin Hypothyroidism Obstructive sleep apnea on CPAP Anemia NAFLD (nonalcoholic fatty liver disease) Sacroiliac joint dysfunction Coarse tremors Bleeding hemorrhoids Dental crowns present Respiratory failure Paranoia (psychosis) Stress incontinence Insomnia Anxiety Scoliosis of thoracolumbar spine Morbid obesity Chronic pain syndrome Inappropriate sinus tachycardia GERD (gastroesophageal reflux disease) Spondylosis of lumbar region without myelopathy or radiculopathy Gastroparesis Hemorrhoids Migraine Patellofemoral arthritis Patella-femoral syndrome Lumbar spondylosis Fibromyalgia Tubular adenoma Family history of colon cancer Vitamin D deficiency Genu valgum Palpitations Chest pain Surgical History (System 08/19/24 @ 15:35 by Erika Ambrosio CNA) Status post hemorrhoidectomy History of hemorrhoidectomy (~09/09/22) History of surgery Hx of section H/O esophagogastroduodenoscopy History of colonoscopy History of arthroscopy of right knee History of bilateral carpal tunnel release History of bladder surgery History of tubal ligation Hx of tonsillectomy Family History Father Stomach cancer Mother Heart disease HTN (hypertension) Diabetes Son No problems noted. 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) Household Members: Family Household Members Other:: adult son Housing: Apartment Are you a primary care rep to a significant other at home: No Do you presently have visiting nurse or other home services: Yes (ELECTRONIC TRAIN CONTROL TECHNICIAN daily) Alcohol intake: never Patient Tobacco Use Status: Never used Tobacco Second Hand Smoke Exposure: No service: No Current occupational status: disabled Current occupation: lt handed Sexual orientation: Straight/Heterosexual Gender identity: Female Female Reproductive History Menstrual Age of Menarche: 17 Review of Systems Const Denies daytime sleepiness, Denies excessive sweating, Denies fatigue, Denies fever(s), Denies lethargy, Denies malaise, Denies night sweats, Denies snoring and Denies weight loss Eyes Denies blurry vision and Denies itchy eyes ENT Denies nasal congestion, Denies post nasal drip, Denies sinus pain, Denies sinus pressure and Denies other ( Thrush) Card Denies chest pain, Denies pedal edema, Denies dyspnea, Denies orthopnea and Denies paroxysmal nocturnal dyspnea Resp Reports cough, Denies hemoptysis, Denies excessive phlegm production, Denies dyspnea, Denies snoring and Denies wheezing GI Denies abdominal pain and Denies heartburn Musc Denies myalgias, Denies arthralgias and Denies joint swelling Skin/Breast Denies rash Neuro Denies memory loss and Denies seizure-like activity Psych Denies abnormal sleep pattern, Denies anxiety and Denies memory loss Endo Denies excessive sweating, Denies fatigue and Denies heat intolerance Ray/Lymph Denies easy bruising Aller/Immun Denies itchy eyes, Denies seasonal rhinorrhea and Denies wheezing Physical Exam Vital Signs: Last Vital Signs Pulse 81 09/13/24 12:57 BP 122/78 09/13/24 12:57 Pulse Ox 97 09/13/24 12:57 Oxygen Delivery Method Room Air 09/13/24 12:57 BMI result Body Mass Index 39.0 Const General: no acute distress and alert Nutritional Appearance: obese Orientation/consciousness: Other orientation findings ( oriented) HEENT Head: Yes atraumatic Eyes General: appearance normal, both eyes and all related structures Sclerae: sclerae normal EOM: EOMs intact bilaterally Neck Neck: Yes supple Lymphatic: no lymphadenopathy noted Resp Effort & Inspection: normal respiratory effort and no use of accessory muscles Auscultation: clear to auscultation bilaterally Cardio Rate: regular rate Rhythm: regular rhythm Heart sounds: no gallops, no murmurs and no rubs Skin General skin exam: other ( warm) Extrem General: No clubbing, No cyanosis and No edema Assessment & Plan Assessment & Plan (1) GERD (gastroesophageal reflux disease): Code(s): K21.9 - Gastro-esophageal reflux disease without esophagitis Category: Medical Plan: Suboptimal control on PPI, will add famotidine. (2) Asthma: Code(s): J45.909 - Unspecified asthma, uncomplicated Category: Medical Qualifiers: Asthma complication type: uncomplicated Asthma persistence: persistent Asthma severity: moderate Qualified Code(s): J45.40 - Moderate persistent asthma, uncomplicated Plan: Well controlled on current regimen of Arnuity, Spiriva, and albuterol MDI. Continue current regimen. (3) Restrictive lung disease: Code(s): J98.4 - Other disorders of lung Category: Medical Plan: Secondary to body habitus. Continue to monitor clinically. Coding Level of Care Code Est Pt Level 4 (99739) Diagnoses GERD (gastroesophageal reflux disease) K21.9 Moderate persistent asthma without complication J45.40 Asthma complication type: uncomplicated Asthma persistence: persistent Asthma severity: moderate Restrictive lung disease J98.4
--- OUTSIDE RECORDS SUMMARY | 2024-09-13 13:37 | XMS_ITS | Encounter Summary ---
Author Organization [employer] Address [address] [facility] [address] [place] [address] Care Team Providers Care Lathe Operator Contact Lens Name Role Phone Jaida Martin DO Primary Care Provider Encounter Details Date Type Department Care Team (Late st Contact Info) Description 03/12/2022 Orders Only [facility] [address] [place] [address] Jaida Martin DO [address] [place] [phone] Vitamin B12 deficiency (Primary Dx) Social History [...] Care Team (Late st Contact Info) Description 10/24/2024 10:00 AM EDT Clinical Support [facility] [address] [place] [address] 02/10/2025 10:00 AM EST Office Visit [facility] ADULT DENTAL [address] [place], [place] [phone] Amanda Fernandez [address] [place] [address] documented as of this encounter Procedures Procedure [...] EST) Sodium 146(H) 135 - 145 mmol/L [facility] Potassium 3.0(L) 3.3 - 5.1 mmol/L [facility] Chloride 107 96 - 108 mmol/L [facility] Carbon Dioxide 30(H) 22 - 29 mmol/L [facility] Anion Gap 12 12 - 20 [facility] Urea Nitrogen (BUN) 9 9 - 16 mg/dL [facility] Creatinine, Serum 0.54 0.5 - 1.4 mg/dL [facility] Creatinine Clr Calc Pharmacy 148.7 [facility] Comment:Provided height and weight: 162.56 cm,115.666 kg.eGFR (calculated from the MDRD study equation) and eCrCl(calculated from the Cockcroft-Gault equation) are based ondifferent parameters and may not yield comparable results.If eCrCl result is absurd, please check patient'sheight/weight. Estimated Glomerular Filt Rate >60 [facility] Comment:NOTE: For -Am erican individuals, multiply the result by 1.210.Chronic Kidney Disease: Estimated GFR < 60 mL/min/1.61h2Hnojte Kidney Disease: Estimated GFR < 15 mL/min/1.73m2 Glucose 117(H) 60 - 115 mg/dL [facility] Calcium 9.1 8.4 - 10.2 mg/dL [facility] Bilirubin, Total 0.4 0.0 - 1.0 mg/dL [facility] Aspartate Amino Transferase 19 5 - 31 U/L [facility] Alanine Aminotransferase 10 0 - 31 U/L [facility] Total Protein 6.9 6.5 - 8.0 g/dL [facility] Albumin Level 3.8 3.5 - 5.0 g/dL [facility] Alkaline Phosphatase 126(H) 39 - 117 U/L [facility] 03/13/2022 7:42 AM EST 03/13/2022 7:44 AM EST us [facility] External Provider LAB BLO OD ORDERABLES Final Result [facility] [address] [place] [address] [phone] * (ABNORMAL) CBC auto differential (03/13/2022 7:42 AM EST) White Blood Count 10.3 4.8 - 10.8 X10*3/uL [facility] Red Blood Count 4.24 4.20 - 5.50 X10*6/uL [facility] Hemoglobin 11.0(L) 12.0 - 16.0 g/dl [facility] Hematocrit 36.1(L) 37.0 - 47.0 % [facility] Mean Corpuscular Volume 85.1 80.0 - 98.0 fL [facility] Mean Corpuscular Hemoglobin 25.9(L) 27.0 - 33.0 pg [facility] Mean Corpuscular HGB Conc 30.5(L) 31.0 - 35.0 g/dl [facility] Red Cell Distribution Width 15.9 11.0 - 16.0 % [facility] Platelet Count 266 160 - 400 X10*3/uL [facility] Mean Platelet Volume 10.1 9.4 - 12.3 fL [facility] Neutrophils Percent Auto 61.8 45 - 73 % [facility] Imm Gran Pct Auto 0.6(H) 0.0 - 0.4 % [facility] Lymphocytes Percent Auto 28.1 20 - 40 % [facility] Monocytes Percent Auto 7.3 2 - 11 % [facility] Eosinophils Percent Auto 1.8 0 - 4 % [facility] Basophils Percent Auto 0.4 0 - 2 % [facility] NRBC Pct Auto 0.0 0.0 - 0.2 /100WBC [facility] Neutrophils Absolute Auto 6.4 2.0 - 8.3 x10*3/uL [facility] Imm Gran Abs Auto 0.06(H) 0.00 - 0.03 X10*3/uL [facility] Lymphocytes Absolute Auto 2.9 1.2 - 4.9 X10*3/uL [facility] Monocytes Absolute Auto 0.8 0.1 - 1.2 X10*3/uL [facility] Eosinophils Absolute Auto 0.2 0.0 - 0.4 X10*3/uL [facility] Basophils Absolute Auto 0.0 0.0 - 0.2 X10*3/uL [facility] NRBC Abs Auto 0.000 0.0 - 0.012 X10*3/uL [facility] 03/13/2022 7:42 AM EST 03/13/2022 7:44 AM EST [facility] External Provider LAB BLO OD ORDERABLES Final Result Performing Organization Address [facility] Co de Phone Number [facility] [address] [place] [address] [phone] * (ABNORMAL) GLUCOSE, WHOLE BLOOD (03/13/2022 5:16 AM EST) Glucose, Whole Blood 241(H) 60 - 115 mg/dL [facility] Comment:METER #: [id number] 1 03/13/2022 5:16 AM EST 03/13/2022 5:20 AM EST [facility] External Provider LAB BLO OD ORDERABLES Final Result Performing Organization Address City/[facility] Co de Phone Number [facility] [address] [place] [address] [phone] documented in this encounter Visit Diagnoses Diagnosis Vitamin B12 deficiency- Primary Other B-complex deficiencies documented in this encounter Care Teams Lathe Operator Contact Lens Relationship Specialty Start Date End Date Jaida Martin DO [address] [place] [address] PCP - General Family Medicine 03/02/18 Pamela Andres Bean PickerDocumentation Specialist 01/14/24 documented as of this encounter
--- OUTSIDE RECORDS SUMMARY | 2024-09-13 13:37 | XMS_ITS | Clinical Summary ---
Author Organization [employer] [facility] ity Address [address] [place] [address] Care Team Providers Care Kiln Furniture Saw Tender Name Role Phone Unavailable Primary Care Provider [...]
--- OUTSIDE RECORDS SUMMARY | 2024-09-13 13:37 | XMS_ITS | Clinical Summary ---
Author Organization [facility] Address [address] [place] [address] Care Team Providers Care Transplant Nurse Practitioner Name Role Phone Jaida Martin Primary Care Provider [phone] Allergies No known active allergies Medications cloNIDine [...] Info) Description 05/01/2025 2:30 PM EST Follow-Up [facility] Neurology [address] [place] [phone] Nancy Petty MD [address] [place] [address] [phone] Health Maintenance Due Date Last Done Comments [...] Additional history exists Procedures * Due to [place] [employer] law, this organization might not be sharing negative HIV tests. Procedure Name Priority Date/Time Associated Diagnosis Comments COMPREHENSIVE METABOLIC PANEL Routine 12/30/2023 9:51 AM EDT Intention tremor from Last 3 Months or Most Recently Relevant to Health Maintenance Results * Due to [facility] law, this organization might not be sharing negative HIV tests. * (ABNORMAL) Comprehensive Metabolic Panel (12/30/2023 9:51 AM EDT) NA 140 135 - 145 mmol/L 12/30/2023 11:25 AM EDT [facility] K 3.6 3.5 - 5.3 mmol/L 12/30/2023 11:25 AM EDT [facility] Cl 102 98 - 107 mmol/L 12/30/2023 11:25 AM EDT [facility] CO2 27 22 - 32 mmol/L 12/30/2023 11:25 AM EDT [facility] Anion Gap 11 5 - 15 12/30/2023 11:25 AM [facility] Glucose 171(H) 65 - 99 mg/dL 12/30/2023 11:25 AM [facility] Creatinine 0.41(L) 0.50 - 1.20 mg/dL 12/30/2023 11:25 AM [facility] Calcium 9.0 8.6 - 10.5 mg/dL 12/30/2023 11:25 AM [facility] Total Protein 7.6 6.0 - 8.0 g/dL 12/30/2023 11:25 AM [facility] Albumin 4.2 3.5 - 5.2 g/dL 12/30/2023 11:25 AM [facility] Bilirubin, Total 0.3 0.2 - 1.2 mg/dL 12/30/2023 11:25 AM [facility] Alkaline Phosphatase 152(H) 35 - 129 U/L 12/30/2023 11:25 AM [facility] AST 19 10 - 40 U/L 12/30/2023 11:25 AM [facility] ALT 12 10 - 40 U/L 12/30/2023 11:25 AM [facility] BUN 12 7 - 23 mg/dL 12/30/2023 11:25 AM [facility] eGFR >90 >=60 mL/min/1 .73m2 12/30/2023 11:25 AM [facility] Comment:The estimated glomer [...] - 4.2 g/dL 12/30/2023 11:25 AM EDT [facility] A/G Ratio 1.2(L) 1.5 - 3.0 12/30/2023 11:25 AM EDT [facility] Blood Structure of peripheral vein / Unknown Venipuncture / Unknown 12/30/2023 9:51 AM EDT 12/30/2023 10:39 AM EDT us Nancy Petty MD LAB BLOOD ORDERABLES Fi nal Result [facility] [address] [place] [address], from Last 3 Months or Most Recently Relevant to Health Maintenance Insurance [facility] Care Teams Transplant Nurse Practitioner Relationship Specialty Start Date End Date Jaida Martin [address] [place] [phone] PCP - General Family Medicine 01/20/23
== END 2024-09-13 13:25 | disposition home or self-care (01) ==
LOC: HO.HPS 12:30
PROVIDERS: PCP Family Medicine; Visit Provider Internal Medicine Pulmonary Disease
DX: K21.9 Gastro-esophageal reflux disease without esophagitis (principal); J45.40 Moderate persistent asthma, uncomplicated; J98.4 Other disorders of lung
CPT/HCPCS: 99214

== ENCOUNTER → 2024-09-13 12:29 | Outpatient (BNVA) | payer MEDICAID, SELFPAY | PROVIDERS: PCP Family Medicine; Visit Provider Internal Medicine Pulmonary Disease | DX: K21.9 Gastro-esophageal reflux disease without esophagitis (principal); J45.40 Moderate persistent asthma, uncomplicated; J98.4 Other disorders of lung | CPT/HCPCS: 99212 ==

== ENCOUNTER 2024-09-27 07:49 | Outpatient (REF) | payer MEDICAID, SELFPAY ==
--- OUTSIDE RECORDS SUMMARY | 2024-09-27 07:51 | XMS_ITS | Encounter Summary ---
Author Organization [employer] Address [address] [facility] [address] [place] [address] Care Team Providers Care Strapping Machine Operator Name Role Phone Jaida Martin DO Primary Care Provider Encounter Details Date Type Department Care Team (Late st Contact Info) Description 03/12/2022 Orders Only [facility] [address] [place] [address] Jaida Martin DO [address] [place] [phone] Vitamin B12 deficiency (Primary Dx) Social History [...] Description 10/24/2024 10:00 AM EDT Clinical Support [facility] [address] [place] [address] 02/10/2025 10:00 AM EST Office Visit [facility] ADULT D[facility] [address] [place], [place] [phone] Amanda Fernandez [address] [place] [address] documented as of this encounter Procedures Procedure [...] EST) Sodium 146(H) 135 - 145 mmol/L [facility] Potassium 3.0(L) 3.3 - 5.1 mmol/L [facility] Chloride 107 96 - 108 mmol/L [facility] Carbon Dioxide 30(H) 22 - 29 mmol/L [facility] Anion Gap 12 12 - 20 [facility] Urea Nitrogen (BUN) 9 9 - 16 mg/dL [facility] Creatinine, Serum 0.54 0.5 - 1.4 mg/dL [facility] Creatinine Clr Calc Pharmacy 148.7 [facility] Comment:Provided height and weight: 162.56 cm,115.666 kg.eGFR (calculated from the MDRD study equation) and eCrCl(calculated from the Cockcroft-Gault equation) are based ondifferent parameters and may not yield comparable results.If eCrCl result is absurd, please check patient'sheight/weight. Estimated Glomerular Filt Rate >60 [facility] Comment:NOTE: For -Am erican individuals, multiply the result by 1.210.Chronic Kidney Disease: Estimated GFR < 60 mL/min/1.58d2Zbnxgz Kidney Disease: Estimated GFR < 15 mL/min/1.73m2 Glucose 117(H) 60 - 115 mg/dL [facility] Calcium 9.1 8.4 - 10.2 mg/dL [facility] Bilirubin, Total 0.4 0.0 - 1.0 mg/dL [facility] Aspartate Amino Transferase 19 5 - 31 U/L [facility] Alanine Aminotransferase 10 0 - 31 U/L [facility] Total Protein 6.9 6.5 - 8.0 g/dL [facility] Albumin Level 3.8 3.5 - 5.0 g/dL [facility] Alkaline Phosphatase 126(H) 39 - 117 U/L [facility] 03/13/2022 7:42 AM EST 03/13/2022 7:44 AM EST us [facility] External Provider LAB BLO OD ORDERABLES Final Result [facility] [address] [place] [address] [phone] * (ABNORMAL) CBC auto differential (03/13/2022 7:42 AM EST) White Blood Count 10.3 4.8 - 10.8 X10*3/uL [facility] Red Blood Count 4.24 4.20 - 5.50 X10*6/uL [facility] Hemoglobin 11.0(L) 12.0 - 16.0 g/dl [facility] Hematocrit 36.1(L) 37.0 - 47.0 % [facility] Mean Corpuscular Volume 85.1 80.0 - 98.0 fL [facility] Mean Corpuscular Hemoglobin 25.9(L) 27.0 - 33.0 pg [facility] Mean Corpuscular HGB Conc 30.5(L) 31.0 - 35.0 g/dl [facility] Red Cell Distribution Width 15.9 11.0 - 16.0 % [facility] Platelet Count 266 160 - 400 X10*3/uL [facility] Mean Platelet Volume 10.1 9.4 - 12.3 fL [facility] Neutrophils Percent Auto 61.8 45 - 73 % [facility] Imm Gran Pct Auto 0.6(H) 0.0 - 0.4 % [facility] Lymphocytes Percent Auto 28.1 20 - 40 % [facility] Monocytes Percent Auto 7.3 2 - 11 % [facility] Eosinophils Percent Auto 1.8 0 - 4 % [facility] Basophils Percent Auto 0.4 0 - 2 % [facility] NRBC Pct Auto 0.0 0.0 - 0.2 /100WBC [facility] Neutrophils Absolute Auto 6.4 2.0 - 8.3 x10*3/uL [facility] Imm Gran Abs Auto 0.06(H) 0.00 - 0.03 X10*3/uL [facility] Lymphocytes Absolute Auto 2.9 1.2 - 4.9 X10*3/uL [facility] Monocytes Absolute Auto 0.8 0.1 - 1.2 X10*3/uL [facility] Eosinophils Absolute Auto 0.2 0.0 - 0.4 X10*3/uL [facility] Basophils Absolute Auto 0.0 0.0 - 0.2 X10*3/uL [facility] NRBC Abs Auto 0.000 0.0 - 0.012 X10*3/uL [facility] 03/13/2022 7:42 AM EST 03/13/2022 7:44 AM EST [facility] External Provider LAB BLO OD ORDERABLES Final Result Performing Organization Address [facility] Co de Phone Number [facility] [address] [place] [address] [phone] * (ABNORMAL) GLUCOSE, WHOLE BLOOD (03/13/2022 5:16 AM EST) Glucose, Whole Blood 241(H) 60 - 115 mg/dL [facility] Comment:METER #: [id number] 1 03/13/2022 5:16 AM EST 03/13/2022 5:20 AM EST [facility] External Provider LAB BLO OD ORDERABLES Final Result Performing Organization Address [facility] Co de Phone Number [facility] [address] [place] [address] [phone] documented in this encounter Visit Diagnoses Diagnosis Vitamin B12 deficiency- Primary Other B-complex deficiencies documented in this encounter Care Teams Strapping Machine Operator Relationship Specialty Start Date End Date Jaida Martin DO [address] [place] [address] PCP - General Family Medicine 03/02/18 Pamela Andres LcswSheetmetal Worker 01/14/24 documented as of this encounter
--- NOTE | 2024-09-27 07:52 | EMG_ITS ---
Please see the attached neurophysiology report MTDD
--- OUTSIDE RECORDS SUMMARY | 2024-09-27 07:52 | XMS_ITS | Clinical Summary ---
Author Organization [employer] [facility] ity Address [address] [place] [address] Care Team Providers Care Video And Sound Recorder Name Role Phone Unavailable Primary Care Provider [...] Vaccine ( - 2023-2 5 season) 2023 Depression Screening 03/02/2024 Influenza Vaccine (#1) 2024 HIB Vaccines Aged [...]
--- OUTSIDE RECORDS SUMMARY | 2024-09-27 07:52 | XMS_ITS | Clinical Summary ---
Author Organization [facility] Address [address] [place] [address] Care Team Providers Care Railway Track Worker Name Role Phone Jaida Martin Primary Care Provider +1- [phone] Allergies No known active allergies Medications cloNIDine [...] Info) Description 05/01/2025 2:30 PM EST Follow-Up [facility] Neurology [address] [place] [phone] Nancy Petty MD [address] [place] [address] [phone] Health Maintenance Due Date Last Done Comments [...] Additional history exists Procedures * Due to [place] [employer] law, this organization might not be sharing negative HIV tests. Procedure Name Priority Date/Time Associated Diagnosis Comments COMPREHENSIVE METABOLIC PANEL Routine 12/30/2023 9:51 AM EDT Intention tremor from Last 3 Months or Most Recently Relevant to Health Maintenance Results * Due to [facility] law, this organization might not be sharing negative HIV tests. * (ABNORMAL) Comprehensive Metabolic Panel (12/30/2023 9:51 AM EDT) NA 140 135 - 145 mmol/L 12/30/2023 11:25 AM EDT [facility] K 3.6 3.5 - 5.3 mmol/L 12/30/2023 11:25 AM EDT [facility] Cl 102 98 - 107 mmol/L 12/30/2023 11:25 AM EDT [facility] CO2 27 22 - 32 mmol/L 12/30/2023 11:25 AM EDT [facility] Anion Gap 11 5 - 15 12/30/2023 11:25 AM [facility] Glucose 171(H) 65 - 99 mg/dL 12/30/2023 11:25 AM [facility] Creatinine 0.41(L) 0.50 - 1.20 mg/dL 12/30/2023 11:25 AM [facility] Calcium 9.0 8.6 - 10.5 mg/dL 12/30/2023 11:25 AM [facility] Total Protein 7.6 6.0 - 8.0 g/dL 12/30/2023 11:25 AM [facility] Albumin 4.2 3.5 - 5.2 g/dL 12/30/2023 11:25 AM [facility] Bilirubin, Total 0.3 0.2 - 1.2 mg/dL 12/30/2023 11:25 AM [facility] Alkaline Phosphatase 152(H) 35 - 129 U/L 12/30/2023 11:25 AM [facility] AST 19 10 - 40 U/L 12/30/2023 11:25 AM [facility] ALT 12 10 - 40 U/L 12/30/2023 11:25 AM [facility] BUN 12 7 - 23 mg/dL 12/30/2023 11:25 AM [facility] eGFR >90 >=60 mL/min/1 .73m2 12/30/2023 11:25 AM [facility] Comment:The estimated glomer [...] - 4.2 g/dL 12/30/2023 11:25 AM EDT [facility] A/G Ratio 1.2(L) 1.5 - 3.0 12/30/2023 11:25 AM EDT [facility] Blood Structure of peripheral vein / Unknown Venipuncture / Unknown 12/30/2023 9:51 AM EDT 12/30/2023 10:39 AM EDT us Nancy Petty MD LAB BLOOD ORDERABLES Fi nal Result [facility] [address] [place] [address], from Last 3 Months or Most Recently Relevant to Health Maintenance Insurance [facility] Care Teams Railway Track Worker Relationship Specialty Start Date End Date Jaida Martin [address] [place] [phone] PCP - General Family Medicine 01/20/23
== END 2024-09-27 07:50 | disposition home or self-care (01) ==
LOC: HO.NEURO 07:49
PROVIDERS: PCP Family Medicine; Visit Provider Family Medicine
DX: G62.9 Polyneuropathy, unspecified (principal); R20.0 Anesthesia of skin; M79.605 Pain in left leg; M79.604 Pain in right leg
CPT/HCPCS: 95886; 95911

== ENCOUNTER → 2024-09-27 07:52 | Outpatient (BNV) | payer MEDICAID, SELFPAY | PROVIDERS: PCP Family Medicine; Visit Provider Psychiatry & Neurology Neurology | DX: G62.89 Other specified polyneuropathies (principal) | CPT/HCPCS: 95886; 95911 ==

== ENCOUNTER 2024-10-18 11:29 | Outpatient (REF) | payer MEDICAID, SELFPAY ==
--- NOTE | ~2024-10-18 | MM_ITS ---
EXAMINATION: MM SCREENING DIGITAL BREAST TOMOSYNTHESIS, BILATERAL CLINICAL INFORMATION: Screening. Asymptomatic. COMPARISON: Mammography: Comparison is made with available priors TECHNIQUE: Digital breast mammography with tomosynthesis is performed in both the craniocaudal and mediolateral oblique views along with computer-aided detection (CAD). FINDINGS: There are scattered areas of fibroglandular density (ACR BI-RADS breast composition Category b). There are no significant masses, abnormal calcifications, or other abnormalities. MM/MM tomosynthesis screening BI IMPRESSION: No mammographic evidence of malignancy. ASSESSMENT: BI-RADS BI-RADS 1 - Negative RECOMMENDATION: Routine annual mammography screening. 1 year F/U This examination should not preclude the clinical evaluation of a suspicious palpable abnormality. This patient's information was entered into a reminder system with a target due date for their next mammogram. Electronically signed by: Sulema Joseph DO 10/20/2024 08:19 AM EDT
--- OUTSIDE RECORDS SUMMARY | 2024-10-18 13:04 | XMS_ITS | Clinical Summary ---
Author Organization [facility] Address [address] [place] [address] Care Team Providers Care Paralegal Internship Name Role Phone Jaida Martin Primary Care Provider +1- [phone] Allergies No known active allergies Medications cloNIDine [...] Info) Description 05/01/2025 2:30 PM EST Follow-Up [facility] Neurology [address] [place] [phone] Nancy Petty MD [address] [place] [address] [phone] Health Maintenance Due Date Last Done Comments [...] history exists Procedures * Due to [place] [employer] law, this organization might not be sharing negative HIV tests. Procedure Name Priority Date/Time Associated Diagnosis Comments COMPREHENSIVE METABOLIC PANEL Routine 12/30/2023 9:51 AM EDT Intention tremor from Last 3 Months or Most Recently Relevant to Health Maintenance Results * Due to [facility] [employer] law, this organization might not be sharing negative HIV tests. * (ABNORMAL) Comprehensive Metabolic Panel (12/30/2023 9:51 AM EDT) NA 140 135 - 145 mmol/L 12/30/2023 11:25 AM EDT [facility] K 3.6 3.5 - 5.3 mmol/L 12/30/2023 11:25 AM EDT [facility] Cl 102 98 - 107 mmol/L 12/30/2023 11:25 AM EDT [facility] CO2 27 22 - 32 mmol/L 12/30/2023 11:25 AM EDT [facility] Anion Gap 11 5 - 15 12/30/2023 11:25 AM [facility] Glucose 171(H) 65 - 99 mg/dL 12/30/2023 11:25 AM [facility] Creatinine 0.41(L) 0.50 - 1.20 mg/dL 12/30/2023 11:25 AM [facility] Calcium 9.0 8.6 - 10.5 mg/dL 12/30/2023 11:25 AM [facility] Total Protein 7.6 6.0 - 8.0 g/dL 12/30/2023 11:25 AM [facility] Albumin 4.2 3.5 - 5.2 g/dL 12/30/2023 11:25 AM [facility] Bilirubin, Total 0.3 0.2 - 1.2 mg/dL 12/30/2023 11:25 AM [facility] Alkaline Phosphatase 152(H) 35 - 129 U/L 12/30/2023 11:25 AM [facility] AST 19 10 - 40 U/L 12/30/2023 11:25 AM [facility] ALT 12 10 - 40 U/L 12/30/2023 11:25 AM [facility] BUN 12 7 - 23 mg/dL 12/30/2023 11:25 AM [facility] eGFR >90 >=60 mL/min/1 .73m2 12/30/2023 11:25 AM [facility] Comment:The estimated glomer [...] - 4.2 g/dL 12/30/2023 11:25 AM EDT [facility] A/G Ratio 1.2(L) 1.5 - 3.0 12/30/2023 11:25 AM EDT [facility] Blood Structure of peripheral vein / Unknown Venipuncture / Unknown 12/30/2023 9:51 AM EDT 12/30/2023 10:39 AM EDT us Nancy Petty MD LAB BLOOD ORDERABLES Fi nal Result [facility] [address] [place] [address], from Last 3 Months or Most Recently Relevant to Health Maintenance Insurance [facility] Care Teams Paralegal Internship Relationship Specialty Start Date End Date Jaida Martin [address] [place] [phone] PCP - General Family Medicine 01/20/23
--- OUTSIDE RECORDS SUMMARY | 2024-10-18 13:04 | XMS_ITS | Clinical Summary ---
Author Organization [employer] [facility] ity Address [address] [place] [address] Care Team Providers Care Leather Cleaner Name Role Phone Unavailable Primary Care Provider [...]
--- OUTSIDE RECORDS SUMMARY | 2024-10-18 13:04 | XMS_ITS | Encounter Summary ---
Author Organization [employer] Address [address] [facility] [address] [place] [address] Care Team Providers Care Service Center Assistant Name Role Phone Jaida Martin DO Primary Care Provider Encounter Details Date Type Department Care Team (Late st Contact Info) Description 03/12/2022 Orders Only [facility] MEDIC[facility] [address] [place] [address] Jaida Martin DO [address] [place] [phone] Vitamin B12 deficiency (Primary Dx) Social History [...] Description 10/24/2024 10:00 AM EDT Clinical Support [facility] [address] [place] [address] 02/10/2025 10:00 AM EST Office Visit [facility] ADULT DENTAL [address], [place] [phone] Amanda Fernandez [address] [place] [address] documented as of this encounter Procedures Procedure [...] EST) Sodium 146(H) 135 - 145 mmol/L [facility] Potassium 3.0(L) 3.3 - 5.1 mmol/L [facility] Chloride 107 96 - 108 mmol/L [facility] Carbon Dioxide 30(H) 22 - 29 mmol/L [facility] Anion Gap 12 12 - 20 [facility] Urea Nitrogen (BUN) 9 9 - 16 mg/dL [facility] Creatinine, Serum 0.54 0.5 - 1.4 mg/dL [facility] Creatinine Clr Calc Pharmacy 148.7 [facility] Comment:Provided height and weight: 162.56 cm,115.666 kg.eGFR (calculated from the MDRD study equation) and eCrCl(calculated from the Cockcroft-Gault equation) are based ondifferent parameters and may not yield comparable results.If eCrCl result is absurd, please check patient'sheight/weight. Estimated Glomerular Filt Rate >60 [facility] Comment:NOTE: For -Am erican individuals, multiply the result by 1.210.Chronic Kidney Disease: Estimated GFR < 60 mL/min/1.19y0Sbunsh Kidney Disease: Estimated GFR < 15 mL/min/1.73m2 Glucose 117(H) 60 - 115 mg/dL [facility] Calcium 9.1 8.4 - 10.2 mg/dL [facility] Bilirubin, Total 0.4 0.0 - 1.0 mg/dL [facility] Aspartate Amino Transferase 19 5 - 31 U/L [facility] Alanine Aminotransferase 10 0 - 31 U/L [facility] Total Protein 6.9 6.5 - 8.0 g/dL [facility] Albumin Level 3.8 3.5 - 5.0 g/dL [facility] Alkaline Phosphatase 126(H) 39 - 117 U/L [facility] 03/13/2022 7:42 AM EST 03/13/2022 7:44 AM EST us [facility] External Provider LAB BLO OD ORDERABLES Final Result [facility] [address] [place] [address] [phone] * (ABNORMAL) CBC auto differential (03/13/2022 7:42 AM EST) White Blood Count 10.3 4.8 - 10.8 X10*3/uL [facility] Red Blood Count 4.24 4.20 - 5.50 X10*6/uL [facility] Hemoglobin 11.0(L) 12.0 - 16.0 g/dl [facility] Hematocrit 36.1(L) 37.0 - 47.0 % [facility] Mean Corpuscular Volume 85.1 80.0 - 98.0 fL [facility] Mean Corpuscular Hemoglobin 25.9(L) 27.0 - 33.0 pg [facility] Mean Corpuscular HGB Conc 30.5(L) 31.0 - 35.0 g/dl [facility] Red Cell Distribution Width 15.9 11.0 - 16.0 % [facility] Platelet Count 266 160 - 400 X10*3/uL [facility] Mean Platelet Volume 10.1 9.4 - 12.3 fL [facility] Neutrophils Percent Auto 61.8 45 - 73 % [facility] Imm Gran Pct Auto 0.6(H) 0.0 - 0.4 % [facility] Lymphocytes Percent Auto 28.1 20 - 40 % [facility] Monocytes Percent Auto 7.3 2 - 11 % [facility] Eosinophils Percent Auto 1.8 0 - 4 % [facility] Basophils Percent Auto 0.4 0 - 2 % [facility] NRBC Pct Auto 0.0 0.0 - 0.2 /100WBC [facility] Neutrophils Absolute Auto 6.4 2.0 - 8.3 x10*3/uL [facility] Imm Gran Abs Auto 0.06(H) 0.00 - 0.03 X10*3/uL [facility] Lymphocytes Absolute Auto 2.9 1.2 - 4.9 X10*3/uL [facility] Monocytes Absolute Auto 0.8 0.1 - 1.2 X10*3/uL [facility] Eosinophils Absolute Auto 0.2 0.0 - 0.4 X10*3/uL [facility] Basophils Absolute Auto 0.0 0.0 - 0.2 X10*3/uL [facility] NRBC Abs Auto 0.000 0.0 - 0.012 X10*3/uL [facility] 03/13/2022 7:42 AM EST 03/13/2022 7:44 AM EST [facility] External Provider LAB BLO OD ORDERABLES Final Result Performing Organization Address [facility] Co de Phone Number [facility] [address] [place] [address] [phone] * (ABNORMAL) GLUCOSE, WHOLE BLOOD (03/13/2022 5:16 AM EST) Glucose, Whole Blood 241(H) 60 - 115 mg/dL [facility] Comment:METER #: [id number] 1 03/13/2022 5:16 AM EST 03/13/2022 5:20 AM EST [facility] External Provider LAB BLO OD ORDERABLES Final Result Performing Organization Address [facility] Co de Phone Number [facility] [address] [place] [address] [phone] documented in this encounter Visit Diagnoses Diagnosis Vitamin B12 deficiency- Primary Other B-complex deficiencies documented in this encounter Care Teams Service Center Assistant Relationship Specialty Start Date End Date Jaida Martin DO [address] [place] [address] PCP - General Family Medicine 03/02/18 Pamela Andres [employer] Technologist[employer]ft 01/14/24 documented as of this encounter
== END 2024-10-18 11:30 | disposition home or self-care (01) ==
LOC: HO.MAMMO 11:29
PROVIDERS: PCP Family Medicine; Visit Provider Family Medicine
DX: Z12.31 Encounter for screening mammogram for malignant neoplasm of breast (principal)
CPT/HCPCS: 77063; 77067

== ENCOUNTER → 2024-10-18 11:45 | Outpatient (BNV) | payer MEDICAID, SELFPAY | PROVIDERS: PCP Family Medicine; Visit Provider Internal Medicine | DX: Z12.31 Encounter for screening mammogram for malignant neoplasm of breast (principal) | CPT/HCPCS: 77063; 77067 ==

== ENCOUNTER 2024-10-24 09:11 | Outpatient (REF) | payer MEDICAID, SELFPAY ==
--- OUTSIDE RECORDS SUMMARY | 2024-10-24 09:54 | XMS_ITS | Clinical Summary ---
Author Organization [employer] [facility] ity Address [address] [place] [address] Care Team Providers Care Vegetable Buncher Name Role Phone Unavailable Primary Care Provider [...]
--- OUTSIDE RECORDS SUMMARY | 2024-10-24 09:54 | XMS_ITS | Clinical Summary ---
Author Organization [facility] Address [address] [place] [address] Care Team Providers Care Assembly Machine Tender Name Role Phone Jaida Martin Primary Care Provider +1- [phone] Allergies No known active allergies Medications cloNIDine [...] Info) Description 05/01/2025 2:30 PM EST Follow-Up [facility] Neurology [address] [place] [phone] Nancy Petty MD [address] [place] [address] [phone] Health Maintenance Due Date Last Done Comments [...] history exists Procedures * Due to [place] [employer] law, this organization might not be sharing negative HIV tests. Procedure Name Priority Date/Time Associated Diagnosis Comments COMPREHENSIVE METABOLIC PANEL Routine 12/30/2023 9:51 AM EDT Intention tremor from Last 3 Months or Most Recently Relevant to Health Maintenance Results * Due to [facility] law, this organization might not be sharing negative HIV tests. * (ABNORMAL) Comprehensive Metabolic Panel (12/30/2023 9:51 AM EDT) NA 140 135 - 145 mmol/L 12/30/2023 11:25 AM EDT [facility] K 3.6 3.5 - 5.3 mmol/L 12/30/2023 11:25 AM EDT [facility] Cl 102 98 - 107 mmol/L 12/30/2023 11:25 AM EDT [facility] CO2 27 22 - 32 mmol/L 12/30/2023 11:25 AM EDT [facility] Anion Gap 11 5 - 15 12/30/2023 11:25 AM [facility] Glucose 171(H) 65 - 99 mg/dL 12/30/2023 11:25 AM [facility] Creatinine 0.41(L) 0.50 - 1.20 mg/dL 12/30/2023 11:25 AM [facility] Calcium 9.0 8.6 - 10.5 mg/dL 12/30/2023 11:25 AM [facility] Total Protein 7.6 6.0 - 8.0 g/dL 12/30/2023 11:25 AM [facility] Albumin 4.2 3.5 - 5.2 g/dL 12/30/2023 11:25 AM [facility] Bilirubin, Total 0.3 0.2 - 1.2 mg/dL 12/30/2023 11:25 AM [facility] Alkaline Phosphatase 152(H) 35 - 129 U/L 12/30/2023 11:25 AM [facility] AST 19 10 - 40 U/L 12/30/2023 11:25 AM [facility] ALT 12 10 - 40 U/L 12/30/2023 11:25 AM [facility] BUN 12 7 - 23 mg/dL 12/30/2023 11:25 AM [facility] eGFR >90 >=60 mL/min/1 .73m2 12/30/2023 11:25 AM [facility] Comment:The estimated glomer [...] - 4.2 g/dL 12/30/2023 11:25 AM EDT [facility] A/G Ratio 1.2(L) 1.5 - 3.0 12/30/2023 11:25 AM EDT [facility] Blood Structure of peripheral vein / Unknown Venipuncture / Unknown 12/30/2023 9:51 AM EDT 12/30/2023 10:39 AM EDT us Nancy Petty MD LAB BLOOD ORDERABLES Fi nal Result [facility] [address] [place] [address], from Last 3 Months or Most Recently Relevant to Health Maintenance Insurance [facility] Care Teams Assembly Machine Tender Relationship Specialty Start Date End Date Jaida Martin [address] [place] [phone] PCP - General Family Medicine 01/20/23
[2024-10-24 11:11] LABS: Hematocrit 39.2 % (37.0-47.0); Hemoglobin 12.0 g/dl (12.0-16.0); Mean Corpuscular HGB Conc 30.6 g/dl (31.0-35.0); Mean Corpuscular Hemoglobin 25.9 pg (27.0-33.0); Mean Corpuscular Volume 84.7 fL (80.0-98.0); NRBC Abs Auto 0.000 X10*3/uL (0.0-0.012); NRBC Pct Auto 0.0 /100WBC (0.0-0.2); Platelet Count 336 X10*3/uL (160-400); Red Blood Count 4.63 X10*6/uL (4.20-5.50); White Blood Count 9.8 X10*3/uL (4.8-10.8)
[2024-10-24 11:19] LABS: Hemoglobin A1C 170.6914 umol/L; Total Hemoglobin (HGBA1C) 3202.5986 umol/L
[2024-10-24 11:42] LABS: Alanine Aminotransferase 10 U/L (0-31); Albumin Level 4.2 g/dL (3.5-5.0); Alkaline Phosphatase 143 U/L (39-117); Anion Gap 14 (12-20); Aspartate Amino Transferase 27 U/L (5-31); Blood Urea Nitrogen 12 mg/dL (9-16); Calcium 9.5 mg/dL (8.4-10.2); Carbon Dioxide 30 mmol/L (22-29); Chloride 102 mmol/L (96-108); Cholesterol 101 mg/dL (<200); Estimated Glomerular Filt Rate > 60; HDL Cholesterol 42 mg/dL (>40); Iron 52 mcg/dL (30-160); Percent Iron Saturation 19 % (15-50); Potassium 3.5 mmol/L (3.3-5.1); Sodium 142 mmol/L (135-145); Total Iron Binding Capacity 279 mcg/dL (228-428); Total Protein 7.9 g/dL (6.5-8.0); Triglycerides 115 mg/dL (<150); Unsaturated Iron Binding 227 ug/dL
[2024-10-24 11:58] LABS: Ferritin 169 ng/mL (10-250); Free T4 (Free Thyroxine) 1.22 ng/dL (0.71-1.85); Thyroid Stimulating Hormone 2.81 uIU/mL (0.32-4.0)
[2024-10-24 11:59] LABS: Microalbum/Creatinine Ratio Ur 12.7 ug/mg cr (<30)
[2024-10-24 12:04] LABS: Folate 4.7 ng/mL (> or = 4.0); Vitamin B12 330 pg/mL (200-900)
== END 2024-10-24 09:12 | disposition home or self-care (01) ==
LOC: HO.HHCL 09:11
PROVIDERS: PCP Family Medicine; Visit Provider Family Medicine
DX: E11.29 Type 2 diabetes mellitus with other diabetic kidney complication (principal); K76.0 Fatty (change of) liver, not elsewhere classified; R80.9 Proteinuria, unspecified; Z79.4 Long term (current) use of insulin
CPT/HCPCS: 36415; 80048; 80061; 80076; 82043; 82105; 82306; 82570; 82607; 82728; 82746; 83036; 83540; 84439; 84443; 85027

== ENCOUNTER 2024-11-07 12:40 | Outpatient (AMB) | payer MEDICAID, SELFPAY ==
--- NOTE | 2024-11-07 12:49 | A.OFFVIS_ITS ---
Intake Visit Reasons: ENP-DINA Allergies No Known Allergies (No Known Allergies*) Allergy (Verified 09/07/24 11:20) HPI Comments Details: The patient is a 59-year-old female presenting with tremors and potential Parkinsonism. The tremors have been bilateral, predominantly in the right hand, and persistent over the past one to two years. There is a noted exacerbation of tremors with anxiety and functional difficulties with dressing, undressing, and mobility. Her previous medical evaluations have included assessments at [facility] and [facility], initially exploring and later suggesting Parkinson's disease despite prior negative results. Symptoms evaluated include decreased facial expression, reduced blinking, and constant resting hand tremors more significant on the right. These are accompanied by mild to moderate rigidity affecting her daily functioning. A history of exposure to antipsychotics, specifically Abilify, and not tolerating Carbidopa-Levodopa has been documented in her treatment history. Additionally, she has comorbid conditions of diabetes, hypertension, and mood disorders, treated with multiple medications. [facility] Medical History (Updated 11/07/24 @ 13:06 by Farzana Hogan MD) Asthma HTN (hypertension) Hyperlipidemia 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, uncontrolled shelter (current) use of insulin Diabetic nephropathy associated with type 2 diabetes mellitus 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 due to insulin Hypothyroidism Obstructive sleep apnea on CPAP Anemia NAFLD (nonalcoholic fatty liver disease) Sacroiliac joint dysfunction Coarse tremors Bleeding hemorrhoids Dental crowns present Respiratory failure Paranoia (psychosis) Stress incontinence Insomnia Anxiety Scoliosis of thoracolumbar spine Morbid obesity Chronic pain syndrome Inappropriate sinus tachycardia GERD (gastroesophageal reflux disease) Spondylosis of lumbar region without myelopathy or radiculopathy Gastroparesis Hemorrhoids Migraine Patellofemoral arthritis Patella-femoral syndrome Lumbar spondylosis Fibromyalgia Tubular adenoma Family history of colon cancer Vitamin D deficiency Genu valgum Palpitations Chest pain Surgical History (System 08/19/24 @ 15:35 by Erika Ambrosio CNA) Status post hemorrhoidectomy History of hemorrhoidectomy (~09/09/22) History of surgery Hx of section H/O esophagogastroduodenoscopy History of colonoscopy History of arthroscopy of right knee History of bilateral carpal tunnel release History of bladder surgery History of tubal ligation Hx of tonsillectomy Family History Father Stomach cancer Mother Heart disease HTN (hypertension) Diabetes Son No problems noted. 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) Household Members: Family Household Members Other:: adult son Housing: Apartment Are you a primary critical care nurse to a significant other at home: No Do you presently have visiting nurse or other home services: Yes (SECURITY INTELLIGENCE ANALYST daily) Alcohol intake: never Patient Tobacco Use Status: Never used Tobacco Second Hand Smoke Exposure: No service: No Current occupational status: disabled Current occupation: lt handed Sexual orientation: Straight/Heterosexual Gender identity: Female Female Reproductive History Menstrual Age of Menarche: 17 Review of Systems Const Details: - Musculoskeletal: Reports tremors in both hands, with a worse presentation on the right side - Neurological: Reports difficulty walking, dressing, and using stairs; denies other neurological symptoms - Sleep: Denies confirmed issues; some medication used for sleep-related concerns - Psychiatric: Reports depression and anxiety; no history of psychotic symptoms reported Physical Exam Neuro Other: - General- Alert and oriented - Neurological- Decreased facial expression, decreased blinking, continuous resting tremor in both hands (right worse than left), mild to moderate cogwheel rigidity of the extremities noted - Gait- Slow, utilizing a cane for ambulation - Reflexes- Tendon reflexes traced to absent Assessment & Plan Assessment & Plan (1) Parkinson disease: Code(s): G20.A1 - Parkinson's disease without dyskinesia, without mention of fluctuations Category: Medical Qualifiers: Dyskinesia presence: without dyskinesia Fluctuating manifestations: without fluctuating manifestations Qualified Code(s): G20.A1 - Parkinson's disease without dyskinesia, without mention of fluctuations Plan I discussed with the patient that her clinical presentation aligns with Parkinson's disease, confirmed by symptoms rather than further diagnostic tests. The benefits of restarting Carbidopa-Levodopa with food to reduce gastrointestinal side effects were deliberated, acknowledging its primary role in symptom management. The potential impact on her existing anxiety and depression was considered, maintaining open communication for adjustments. Diabetes and hypertension will continue to be managed in parallel. I emphasized maintaining a coordinated care approach, requesting her to contact us if any new symptoms or side effects develop. Her understanding of the treatment plan and its implications for her overall health was confirmed. Medications: New carbidopa-levodopa 25-100 mg (Sinemet) 1 tab PO TID 270 tabs 0RF Discontinued flash glucose sensor ([employer]Style Ortiz 2 Sensor kit) Discontinued Reason: Doctor's Order use daily As directed to monitor glucose 2 ea 11RF E11.649 - Type 2 diabetes mellitus with hypoglycemia without coma, Z79.4 - terminal carman (current) use of insulin Coding Level of Care Code New Pt Level 4 (46268) Diagnoses Parkinson's disease without dyskinesia or fluctuating manifestations G20.A1 Dyskinesia presence: without dyskinesia Fluctuating manifestations: without fluctuating manifestations
--- OUTSIDE RECORDS SUMMARY | 2024-11-07 14:51 | XMS_ITS | Clinical Summary ---
Author Organization [facility] ity Address [address] [place] [address] Care Team Providers Care Fire Alarm Dispatcher Name Role Phone Unavailable Primary Care Provider [...]
--- OUTSIDE RECORDS SUMMARY | 2024-11-07 14:51 | XMS_ITS | Clinical Summary ---
Author Organization [facility] Address [address] [place] [address] Care Team Providers Care Compo Conveyor Operator Name Role Phone Jaida Martin Primary Care Provider [phone] Allergies No known active allergies Medications cloNIDine [...] Description 05/01/2025 2:30 PM EST Follow-Up [facility] Neurology [address] [place] [id number] Nancy Petty MD [address] [place] [address] [phone] Health Maintenance Due Date Last Done Comments [...] Additional history exists Procedures * Due to [place] [employer] law, this organization might not be sharing negative HIV tests. Procedure Name Priority Date/Time Associated Diagnosis Comments COMPREHENSIVE METABOLIC PANEL Routine 12/30/2023 9:51 AM EDT Intention tremor from Last 3 Months or Most Recently Relevant to Health Maintenance Results * Due to [facility] law, this organization might not be sharing negative HIV tests. * (ABNORMAL) Comprehensive Metabolic Panel (12/30/2023 9:51 AM EDT) NA 140 135 - 145 mmol/L 12/30/2023 11:25 AM EDT [facility] K 3.6 3.5 - 5.3 mmol/L 12/30/2023 11:25 AM EDT [facility] Cl 102 98 - 107 mmol/L 12/30/2023 11:25 AM EDT [facility] CO2 27 22 - 32 mmol/L 12/30/2023 11:25 AM EDT [facility] Anion Gap 11 5 - 15 12/30/2023 11:25 AM [facility] Glucose 171(H) 65 - 99 mg/dL 12/30/2023 11:25 AM [facility] Creatinine 0.41(L) 0.50 - 1.20 mg/dL 12/30/2023 11:25 AM [facility] Calcium 9.0 8.6 - 10.5 mg/dL 12/30/2023 11:25 AM [facility] Total Protein 7.6 6.0 - 8.0 g/dL 12/30/2023 11:25 AM [facility] Albumin 4.2 3.5 - 5.2 g/dL 12/30/2023 11:25 AM [facility] Bilirubin, Total 0.3 0.2 - 1.2 mg/dL 12/30/2023 11:25 AM [facility] Alkaline Phosphatase 152(H) 35 - 129 U/L 12/30/2023 11:25 AM [facility] AST 19 10 - 40 U/L 12/30/2023 11:25 AM [facility] ALT 12 10 - 40 U/L 12/30/2023 11:25 AM [facility] BUN 12 7 - 23 mg/dL 12/30/2023 11:25 AM [facility] eGFR >90 >=60 mL/min/1 .73m2 12/30/2023 11:25 AM [facility] Comment:The estimated [...] - 4.2 g/dL 12/30/2023 11:25 AM EDT [facility] A/G Ratio 1.2(L) 1.5 - 3.0 12/30/2023 11:25 AM EDT [facility] Blood Structure of peripheral vein / Unknown Venipuncture / Unknown 12/30/2023 9:51 AM EDT 12/30/2023 10:39 AM EDT us Nancy Petty MD LAB BLOOD ORDERABLES Fi nal Result [facility] [address] [place] [address], from Last 3 Months or Most Recently Relevant to Health Maintenance Insurance [facility] Care Teams Compo Conveyor Operator Relationship Specialty Start Date End Date Jaida Martin [address] [place] [id number] PCP - General Family Medicine 01/20/23
== END 2024-11-07 13:08 | disposition home or self-care (01) ==
LOC: HO.HSM 12:40
PROVIDERS: PCP Family Medicine; Visit Provider Psychiatry & Neurology Neurology
DX: G20.A1 Parkinson's disease without dyskinesia, without mention of fluctuations (principal)
CPT/HCPCS: 99214

== ENCOUNTER → 2024-11-07 12:40 | Outpatient (BNVA) | payer MEDICAID, SELFPAY | PROVIDERS: PCP Family Medicine; Visit Provider Psychiatry & Neurology Neurology | DX: G20.A1 Parkinson's disease without dyskinesia, without mention of fluctuations (principal); E11.649 Type 2 diabetes mellitus with hypoglycemia without coma; Z79.4 Long term (current) use of insulin; I10 Essential (primary) hypertension; G25.2 Other specified forms of tremor; F41.9 Anxiety disorder, unspecified | CPT/HCPCS: 99212 ==

== ENCOUNTER 2024-11-10 08:29 | Outpatient (AMB) | payer MEDICAID, SELFPAY ==
--- OUTSIDE RECORDS SUMMARY | 2024-08-03 10:30 | XMS_ITS | Encounter Summary ---
Author Organization [employer] Address [address] [facility] 7t [place] [address] Care Team Providers Care Pensions Retirement Plan Specialist Name Role Phone VeronicaJaida Primary Care Provider [phone] Reason for Visit * Reason Comments Filling Encounter Details Date Type Department Care Team ([facility] st Contact Info) Description 08/03/2024 10:30 AM EDT Office Visit [facility] ADULT DENTAL [address] [place] [address] Campbell Nguyễn DDS [address] [place], [place] [phone] Dental caries (Primary Dx) Social History Tobacco Use Types [...] AM EDT documented as of this encounter Last Filed Vital Signs Vital Sign Reading Time Taken Comments Blood Pressure 134/76 08/03/2024 10:29 AM EDT Pulse 66 08/03/2024 10:29 AM EDT Temperature - - Respiratory Rate - - Oxygen Saturation - - Inhaled Oxygen Concentration - - Weight - - Height - - Body Mass Index - - documented in this encounter Functional Status * Over the last 2 weeks, how often have you been bothered by any of the following problems? Question Answer Date of Assessment Author Feeling nervous, anxious, or on edge 1 08/15/2024 12:06 PM EDT uLz Fofana [place] Not being able to stop or co ntrol worrying 2 08/15/2024 12:06 PM EDT Luz Fofana [place] Worrying too much about diff erent things 2 08/15/2024 12:06 PM EDT Luz Fofana [place] Trouble relaxing 1 08/15/2024 12:06 PM EDT Luz Fofana [place] Being so restless that it is hard to sit still 0 08/15/2024 12:06 PM EDT Luz Fofana MA Becoming easily annoyed or irritable 0 08/15/2024 12:06 PM EDT Luz Fofana [place] Feeling afraid as if somethi ng awful might happen 2 08/15/2024 12:06 PM EDT Luz Fofana MA BELGICA-7 Total Score 8 08/15/2024 12:06 PM EDT Luz Fofana [place] documented as of this encounter Progress Notes * Campbell Nguyễn DDS - 08/03/2024 10:30 AM EDT Patient ID: Candace Díaz is a 59 y.o. female. Time Out: Timeout Date: 08/03/24, Timeout Time: 1026 (composte on tooth#28 , 29 , 30 , 31) Location: [facility] Tooth: Mandible, #20, #28, #29, #30, and #31 Procedure: Baptism Verified the above with patient, human resources assistant, and provider. Confirmed via patient's chart, intraorally and by radiographs. Propulsion Generator Repairer: not applicable Chief Complaint Patient presents with Filling Medical Hx: Vitals: Blood pressure 134/76, pulse 66. Medications, Med Hx reviewed with patient and updated in chart. Consent Obtained: The risks, benefits, indications, potential complications, and alternatives were explained to the patient and informed consent was obtained with good understanding. Treatment Provided: Dental procedures in this visit [id number] - RESIN-BASED COMPOSITE - 2 SURF, POSTERIOR 31 MD (Completed) Service provider: Campbell Nguyễn DDS Billing provider: Campbell Nguyễn DDS [id number] - RESIN-BASED COMPOSITE - 1 SURF, POSTERIOR 30 D (Completed) Service provider: Campbell Nguyễn DDS Billing provider: Campbell Nguyễn DDS [id number] - RESIN-BASED COMPOSITE - 1 SURF, POSTERIOR 29 M (Completed) Service provider: Campbell Nguyễn DDS Billing provider: Campbell Nguyễn DDS [id number] - RESIN-BASED COMPOSITE - 1 SURF, POSTERIOR 28 D (Completed) Service provider: Campbell Nguyễn DDS Billing provider: Campbell Nguyễn DDS [id number] - RESIN-BASED COMPOSITE - 1 SURF, POSTERIOR 20 B(V) (Completed) Service provider: Campbell Nguyễn DDS Billing provider: AICHA [id number] - CASE PRESENTATION, DETAILED AND EXTENSIVE TREATMENT PLANNING (Completed) Service provider: Campbell Nguyễn DDS Billing provider: Campbell Nguyễn DDS Diagnosis: Caries Topical: 20% Benzocaine Anesthesia: 2% Lidocaine (Xylocaine) w/ 1:100,000 epinephrine Number of Cartridges: 1 Injection Type: Inferior alveolar nerve block and Mental nerve block Confirmed profound anesthesia. Isolation: cotton rolls and high speed suction Prep: All caries removed and Preparation finalized Matrix: Tofflemire and wedge Etch: 37% Phosphoric Acid Etch Desensitizer: Gluma Liner/Base: None Martinez: I-Martinez Baptism Material: Filtek [place] Flowable Composite and Paradigm Composite Shade: A3 Pt was advised about post op hypersensitivity Polished. Occlusion & contacts verified. Patient satisfied with comfort and esthetics. Patient tolerated procedure well. Post-operative instructions were given. Patient departed alert, oriented, and in stable condition. NV: 6 mos recall Election Watcher: Marielena Lafleur Dentist: Campbell Nguyễn DDS documented in this encounter Plan of Treatment Upcoming Encounters Date Type Department Care Team (Late st Contact Info) Description 11/15/2024 10:00 AM EDT Office Visit [address] [address] Jaida Martin DO [address] [place] [address] 12/27/2024 1:00 PM EDT Clinical Support [facility] MEDICINE [address] [place] [phone] 02/10/2025 10:00 AM EST Office Visit [facility] ADULT DENTAL [address] [place] [address] Amanda Fernandez [address] [place] [address] documented as of this encounter Procedures Procedure Name Priority Date/Time Associated Diagnosis Comments 31 RESIN-BASED COMPOSITE - 2 SURF, POSTERIOR Routine 08/03/2024 10:30 AM EDT 20 B(V) RESIN-BASED COMPOSITE - 1 SURF, POSTERIOR Routine 08/03/2024 10:30 AM EDT 30 D RESIN-BASED COMPOSITE - 1 SURF, POSTERIOR Routine 08/03/2024 10:30 AM EDT 28 D RESIN-BASED COMPOSITE - 1 SURF, POSTERIOR Routine 08/03/2024 10:30 AM EDT 29 M RESIN-BASED COMPOSITE - 1 SURF, POSTERIOR Routine 08/03/2024 10:30 AM EDT CASE PRESENTATION, DETAILED AND EXTENSIVE TREATMENT PLANNING Routine 08/03/2024 10:30 AM EDT documented in this encounter Visit Diagnoses Diagnosis Dental caries- Primary Unspecified dental caries documented in this encounter Additional Health Concerns Assessment Noted Time PHQ-9 Depression Total Score: 0 01/22/20 24 10:22 AM EST documented as of this encounter Care Teams Pensions Retirement Plan Specialist Relationship Specialty Start Date End Date Jaida Martin DO [address] [place] [phone] PCP - General Family Medicine 03/02/18 Pamela Andres Slp TeacherFur Floor Worker 01/14/24 documented as of this encounter
--- NOTE | 2024-11-10 08:40 | A.OFFVIS_ITS ---
Vital Signs 11/10/24 08:49 Height 5 ft 4 in Weight 227 lb 1.218 oz BMI 39.0 BP 112/72 Blood Pressure Location Rt brachial Position Sitting Pulse 80 Pulse Source Pulse Oximeter Pulse Oximetry (%) 95 Oxygen Delivery Method Room Air Intake Visit Reasons: T2DM Intake Note: Patient present today to follow up on Type 2 Diabetes Mellitus. Last Diabetic Eye exam: 03/17/2024 Last Podiatry Visit: Does not see a Railcar Foreman Random Glucose: 186 mg/dl Hgb A1C: 7.0% 10/24/2024 Airconditioning Plant Operator Required: Yes Airconditioning Plant Operator Language: Sales Account Coordinator Services: Airconditioning Plant Operator Present Airconditioning Plant Operator [place] [facility] [place] Information Interpreted: non-clinical & clinical Accompanied by: Son Allergies No Known Allergies (No Known Allergies*) Allergy (Verified 11/10/24 08:50) Medication List - Last Reconciled 11/10/24 by Timmy Elias MD acetaminophen ER 650 mg PO Q8H PRN albuterol sulfate 2.5 mg inhalation Q4H PRN aripiprazole 15 mg PO BEDTIME aspirin 81 mg PO DAILY benzonatate 200 mg PO TID PRN blood sugar diagnostic (FreeStyle Lite Strips) Test blood sugars four times daily when not wearing sensor or when having hypoglycemia or hyperglycemia on sensor blood-glucose meter (FreeStyle Lite Meter kit) As directed blood-glucose sensor (FreeStyle Ortiz 3 Plus Sensor device) USE DIRECTED blood-glucose sensor (FreeStyle Ortiz 3 Plus Sensor device) As directed change every 14 days blood-glucose,certified registered locksmith,cont (FreeStyle Ortiz 3 Jean) Use daily As directed to monitor blood glucose carbidopa-levodopa 25-100 mg 1 tab PO BID carbidopa-levodopa 25-100 mg (Sinemet) 1 tab PO TID cholecalciferol (vitamin D3) 50 mcg PO DAILY clonazepam 1 mg PO TID PRN clonidine HCl 0.1 mg PO BEDTIME PRN docusate sodium 100 mg PO BID famotidine 40 mg PO DAILY ferrous sulfate 325 mg PO Q OTHER DAY flash glucose scanning reader (FreeStyle Ortiz 2 Jean) use daily As directed to monitor blood glucose readings fluticasone furoate 200 mcg/actuation (Arnuity Ellipta) 1 inh inhalation DAILY furosemide 20 mg PO QAM gabapentin 400 mg PO TID insulin regular hum U-500 conc (Humulin R U-500 (Conc) Insulin Kwikpen) 50 units before breakfast and 25 units before dinner subcutaneously 2 times a day; 30 days levothyroxine 1 tab PO DAILY@0600 lidocaine 5% 1 patch transdermal DAILY melatonin 5 - 10 mg PO BEDTIME PRN metformin 1,000 mg (2 x 500 mg) PO BID 90 days nortriptyline 75 mg PO BEDTIME nortriptyline 75 mg PO BEDTIME omeprazole 20 mg PO DAILY@0630 pen needle, diabetic (Pentips Pen Needle) USE DIRECTED TWICE DAILY propranolol 80 mg PO BID 90 days rosuvastatin (Crestor) 20 mg PO BEDTIME thiamine HCl (vitamin B1) 100 mg PO DAILY tiotropium bromide 2.5 mcg/actuation (Spiriva Respimat) 2 puffs inhalation DAILY 30 days tirzepatide (Mounjaro) 7.5 mg (0.5 mL) subcut QWEEK TRUEplus Lancets (lancets) 4 times a day NS valsartan 160 mg PO DAILY HPI Comments Details: Patient is a 59-year-old female with DM type 2 diagnosed 2009 who presents for management of diabetes. She was last seen 08/11/2024 by Mishel Marquez NP Mounjaro was reduced in the past from 10mg due to symptoms Diabetes medications: Humulin U 500 50 units before breakfast and 25 units before dinner metformin ER 500 mg 2 pills twice a day Mounjaro 7.5mg Qwkly Freestyle average glucose: 174 14 day continuous glucose monitor report reviewed Glucose Managment indicator 7.5 % Days with CGM data 95 % TIme in ranges: 2 % very high (above 250) 40 % high ?(181-250) 58 % in range ?(70-180] 0 % low (69-55) 0 % ?very low (below 54) Interpretation: Sensor download shows increase point of cares post-breakfast through mid afternoon when decrease into normal range Rare hypoglycemia Diabetes education : saw Adela Reed CDE 04/2024 Exercise: walking when weather permit, less in winter with cold. 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 Diabetic nephropathy associated with type 2 diabetes mellitus 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 due to insulin Hypothyroidism Obstructive sleep apnea on CPAP Anemia NAFLD (nonalcoholic fatty liver disease) Sacroiliac joint dysfunction Coarse tremors Bleeding hemorrhoids Dental crowns present Respiratory failure Paranoia (psychosis) Stress incontinence Insomnia Anxiety Scoliosis of thoracolumbar spine Morbid obesity Chronic pain syndrome Inappropriate sinus tachycardia GERD (gastroesophageal reflux disease) Spondylosis of lumbar region without myelopathy or radiculopathy Gastroparesis Hemorrhoids Migraine Patellofemoral arthritis Patella-femoral syndrome Lumbar spondylosis Fibromyalgia Tubular adenoma Family history of colon cancer Vitamin D deficiency Genu valgum Palpitations Chest pain Surgical History Status post hemorrhoidectomy History of hemorrhoidectomy (~09/09/22) History of surgery Hx of section H/O esophagogastroduodenoscopy History of colonoscopy History of arthroscopy of right knee History of bilateral carpal tunnel release History of bladder surgery History of tubal ligation Hx of tonsillectomy Family History Father Stomach cancer Mother Heart disease HTN (hypertension) Diabetes Son No problems noted. Paternal Aunt Stomach cancer Sister Stomach cancer Sister Uterine cancer Social History Household Members: Family Household Members Other:: adult son Housing: Apartment Are you a primary childcare worker to a significant other at home: No Do you presently have visiting nurse or other home services: Yes (MINI BAR ATTENDANT daily) Alcohol intake: never Patient Tobacco Use Status: Never used Tobacco Second Hand Smoke Exposure: No service: No Current occupational status: disabled Current occupation: lt handed Sexual orientation: Straight/Heterosexual Gender identity: Female Female Reproductive History Menstrual Age of Menarche: 17 Physical Exam Vital Signs: Last Vital Signs Pulse 80 09/11/25 08:49 BP 112/72 11/10/24 08:49 Pulse Ox 95 11/10/24 08:49 Oxygen Delivery Method Room Air 11/10/24 08:49 BMI result Body Mass Index 39.0 Absence of Cushingoid features. Absence of acromegalic features. Neck exam reveals nl size thyroid about 15 gms. No thyroid nodules palpable. No carotid bruits present. Lungs CTA. Heart S1 S2, Reg R/R. No M/R/ G. Skin exam reveals absence of vitiligo or acanthosis nigricans. Abdominal exam reveals Soft NT/ND with NA BS. No organomegaly present. Neck Other: . Extrem Other: Visual exam of foot performed. No ulcerations or open lesions. No onchomycosis, no callouses.Pulses 2 + distally Sensation intact to monofilament exam. Vibratory sensation sensed is decreased with 128 Hz tuning fork Results Reviewed Results Reviewed: Laboratory Last Values Glucose (Clinic) 186 mg/dL (60-115) H 11/10/24 08:54 Assessment & Plan Assessment & Plan (1) 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, uncontrolled: Code(s): E11.65 - Type 2 diabetes mellitus with hyperglycemia Category: Medical Qualifiers: Coma presence: without coma Glycemic state: with hypoglycemia Qualified Code(s): E11.649 - Type 2 diabetes mellitus with hypoglycemia without coma Plan: is a 58-year-old female with history of type 2 diabetes being managed with U-500 insulin twice a day , metformin and Mounjaro with excellent improved glycemic control . She has known microvascular complications namely retinopathy. Plan is to increase the Mounjaro up to 10 mg Q weekly. Patient was instructed that if she experiences any hypoglycemia to contact us. Also to contact us if she can not tolerate the increased dose of 10 mg per. We will have patient follow up in about 4 months' time Medications: New tirzepatide (Mounjaro) 10 mg (0.5 mL) subcut QWEEK 2 mL 4RF Discontinued tirzepatide (Mounjaro) Discontinued Reason: Doctor's Order 7.5 mg (0.5 mL) subcut QWEEK 6 mL 3RF Coding Level of Care Code Est Pt Level 4 (20142) Complex EM visit Add On G2211 Diagnoses Uncontrolled type 2 diabetes mellitus with hypoglycemia without coma E11.649 Coma presence: without coma Glycemic state: with hypoglycemia
[2024-11-10 08:49] VITALS: BP 112/72; PULSE 80; O2SAT 95; BMI 39.0
[2024-11-10 08:58] LABS: Glucose, Whole Blood 186 mg/dL (60-115)
--- OUTSIDE RECORDS SUMMARY | 2024-11-10 09:32 | XMS_ITS | Encounter Summary ---
Author Organization [employer] Address [address] [facility] 7t [place] [address] Care Team Providers Care Metal Bonding Assembler Name Role Phone Veronica Jaida Primary Care Provider [phone] Encounter Details Date Type Department Care Team ([facility] Contact Info) Description 11/10/2024 Orders Only GENERIC EXTERNAL DATA DEPARTMENT Provider, [...] Access Q2 Not on file 01/22/2024 Comments No Sex and Gender Information Value Date Recorded Sex Assigned at Female 12/30/2021 10:18 AM EDT Legal Sex Female 10:18 AM EDT Gender Identity Female 12/30/2021 10:18 AM EDT Sexual Orientation Straight 12/30/2021 10 :18 AM EDT documented as of this encounter Plan of Treatment Upcoming Encounters Date Type Department Care Team (Late st Contact Info) Description 11/15/2024 10:00 AM EDT Office Visit [facility] [address] [place] [address] Jaida Martin DO [address] [place] [address] 12/27/2024 1:00 PM EDT Clinical Support [facility] [address] [place] [address] 02/10/2025 10:00 AM EST Office Visit [facility] [address] [place] [address] Amanda Fernandez [address] [place] [address] documented as of this encounter Procedures Procedure Name Priority Date/Time Associated Diagnosis Comments GLUCOSE, WHOLE BLOOD Routine 11/10/2024 8:54 AM EDT documented in this encounter Results * (ABNORMAL) Glucose, Whole Blood (11/10/2024 8:54 AM EDT) Glucose, Whole Blood 186(H) 60 - 115 mg/dL [facility] Comment:METER #: [id number] 0Testing performed in the Endocrinology Department [address] , [address], [facility]. 11/10/2024 8:54 AM EDT 11/10/2024 8:58 AM EDT us Generic External Data Provider LAB BLOOD ORDERAB LES Final Result [facility] [address] [place] [address] [phone] documented in this encounter Visit Diagnoses Not on filedocumented in this encounter Additional Health Concerns Assessment Noted Time PHQ-9 Depression Total Score: 0 01/22/20 24 10:22 AM EST documented as of this encounter Care Teams Metal Bonding Assembler Relationship Specialty Start Date End Date Jaida Martin DO [address] [place] [address] PCP - General Family Medicine 03/02/18 Pamela Andres Waste ChopperEntrepreneurship Program Director 01/14/24 documented as of this encounter
--- OUTSIDE RECORDS SUMMARY | 2024-11-10 09:32 | XMS_ITS | Encounter Summary ---
Author Organization [employer] Address [address] [place] [address] 7 [place] [address] Care Team Providers Care Lithographing Machine Operator Name Role Phone Jaida Martin DO Primary Care Provider [phone] Reason for Visit * Reason Onset Date Comments requesting a call back 03/07/2022 Encounter Details Date Type Department Care Team (Late st Contact Info) Description 03/07/2022 Telephone [facility] [address] [place] [phone] Jaida Martin DO [address] [place] [address] requesting a call back Social History Tobacco [...] a call back Please contact pt at [phone] documented in this encounter Plan of Treatment Upcoming Encounters Date Type Department Care Team (Late Contact Info) Description 11/15/2024 10:00 AM EDT Office Visit [facility] [address] [place] [address] Jaida Martin DO [address] [place] [address] 12/27/2024 1:00 PM EDT Clinical Support [facility] [address] [place], [place] [phone] 02/10/2025 10:00 AM EST Office Visit [facility] [address] [place], [place] [phone] Jim, Amanda [address] [place] [address] documented as of this encounter Visit Diagnoses Not on filedocumented in this encounter Care Teams Lithographing Machine Operator Relationship Specialty Start Date End Date Jaida Martin DO [address] [place] [address] PCP - General Family Medicine 03/02/18 Pamela Andres Funeral GreeterSnow Fence Erector 01/14/24 documented as of this encounter
--- OUTSIDE RECORDS SUMMARY | 2024-11-10 09:32 | XMS_ITS | Encounter Summary ---
Author Organization [employer] Address [address] [facility] 7t [place] [address] Care Team Providers Care Helpdesk Technician Name Role Phone Jaida Martin DO Primary Care Provider [phone] Encounter Details Date Type Department Care Team (Late Contact Info) Description 03/14/2022 Orders Only [facility] [address] [place] [address] Stephanie Apodaca LPN Social History Tobacco Use [...] Description 11/15/2024 10:00 AM EDT Office Visit [facility] [address] [place] [address] Jaida Martin DO [address] [place] [address] 12/27/2024 1:00 PM EDT Clinical Support [facility] [address] [place] [address] [phone] 02/10/2025 10:00 AM EST Office Visit [facility] [address] [place] [address] Amanda Fernandez [address] [place], [place] [phone] documented as of this encounter Visit Diagnoses Not on filedocumented in this encounter Care Teams Helpdesk Technician Relationship Specialty Start Date End Date Jaida Martin DO [address] [place] [address] PCP - General Family Medicine 03/02/18 Pamela Andres Featheredger And Reducer MachineAir Technician 01/14/24 documented as of this encounter
--- OUTSIDE RECORDS SUMMARY | 2024-11-10 09:32 | XMS_ITS | Encounter Summary ---
Author Organization [employer] Address [address] [facility] 7t [place] [address] Care Team Providers Care Validation Manager Name Role Phone Jaida Martin DO Primary Care Provider Reason for Visit * Reason Onset Date Comments Nurse Triage 12/22/2023 Encounter Details Date Type Department Care Team ([facility] Contact Info) Description 12/22/2023 Telephone [facility] [address] [place], [place] [phone] Jaida Martin DO [address] [place] [address] Nurse Triage Social History Tobacco Use Types [...] 12/22/2023 4:50 PM EDT Triage call [place] [id number] Pt reports episode of shortness of breath while picking up object. BP today is 134/86. Pt is takingBP medication Diovan as prescribe. Pt reports no other symptoms at time of call and SOB was momentary. Pt is offered to come to [facility] but, reports no transportation. TSK apt with [...] become worse * Telephone Encounter - Favian Reed - 12/22/2023 4:25 PM EDT Symptom: High Blood Pressure - Caller Reports Outcome: Schedule a same-day appointment or talk to a nurse or provider today Reason: Caller denied all higher acuity questions Kinyarwanda Speaker (accepted inspector clip on sunglasses) documented in this encounter Plan of Treatment Upcoming Encounters Date Type Department Care Team (Late st Contact Info) Description 11/15/2024 10:00 AM EDT Office Visit [facility] [address] [place] [address] Jaida Martin DO [address] [place] [address] 12/27/2024 1:00 PM EDT Clinical Support [facility] [address] [place] [address] 02/10/2025 10:00 AM EST Office Visit [facility] [address] [place] [address] Jim, Amanda [address] [place] [address] documented as of this encounter Visit Diagnoses Not on filedocumented in this encounter Additional Health Concerns Assessment Noted Time PHQ-9 Depression Total Score: 4 08/17/19 24 12:18 PM EDT documented as of this encounter Care Teams Validation Manager Relationship Specialty Start Date End Date Jaida Martin DO [address] [place] [address] PCP - General Family Medicine 03/02/18 Pamela Andres Recreation Facility AttendantGrade Setter 01/14/24 documented as of this encounter
--- OUTSIDE RECORDS SUMMARY | 2024-11-10 09:32 | XMS_ITS | Encounter Summary ---
Author Organization [email or web address] Address [address] [facility] 7t [place] [address] Care Team Providers Care Ic Designer Standard Cells Name Role Phone Jaida Martin DO Primary Care Provider Reason for Visit * Reason Comments Pre-visit Planning SDOH screening negat marcelo and tobacco screening negative Encounter Details Date Type Department Care Team ([facility] st Contact Info) Description 11/07/2024 Patient Outreach [facility] [address] [place], [place] [phone] Jaida Martin DO [address] [place], [place] [phone] Pre-visit Planning (SDOH screening negative and tobacco screening negative) Social History Tobacco Use Types Packs/Day Years [...] the past 12 months, has t he [employer], gas, oil or water company threatened to [...] as of this encounter Progress Notes * Amira Vazquez - 11/07/2024 9:35 AM EDT CC Amira placed successful outbound call to patient for pre-visit planning. Patient name and confirmed. Patient confirms appt date and time, and has transportation. Biggest concern for appointment at this time is none Patient advised to bring to appointment a photo id and insurance card. Appropriate screenings completed in anticipation of appointment. documented in this encounter Plan of Treatment Upcoming Encounters Date Type Department Care Team (Late st Contact Info) Description 11/15/2024 10:00 AM EDT Office Visit [facility] [address] [place] [phone] Jaida Martin, [address] [place] [address] 12/27/2024 1:00 PM EDT Clinical Support [address] [address] 02/10/2025 10:00 AM EST Office Visit [facility] [address] [place] [address] Amanda Fernandez [address] [place] [address] documented as of this encounter Visit Diagnoses Not on filedocumented in this encounter Additional Health Concerns Assessment Noted Time PHQ-9 Depression Total Score: 0 01/22/20 10:22 AM EST documented as of this encounter Care Teams Ic Designer Standard Cells Relationship Specialty Start Date End Date Jaida Martin DO [address] [place] [address] PCP - General Family Medicine 03/02/18 Pamela Andres Craft DemonstratorDirector Of Agronomy 01/14/24 documented as of this encounter
--- OUTSIDE RECORDS SUMMARY | 2024-11-10 09:32 | XMS_ITS | Encounter Summary ---
Author Organization [employer] Address [address] [facility] 7t [place] [address] Care Team Providers Care Electronic Imaging System Operator Name Role Phone Jaida Martin DO Primary Care Provider Encounter Details Date Type Department Care Team (Late st Contact Info) Description 03/12/2022 Orders Only [facility] [address] [place] [phone] Jaida Martin DO [address] [place], [place] [phone] Vitamin B12 deficiency (Primary Dx) Social History [...] Description 11/15/2024 10:00 AM EDT Office Visit [facility] [address] [place] [phone] Jaida Martin DO [address] [place], [place] [phone] 12/27/2024 1:00 PM EDT Clinical Support [facility] [address] [place] [address] 02/10/2025 10:00 AM EST Office Visit [facility] ADULT DENTAL [address] [place] [address] Amanda Fernandez [address] [place] [address] documented as of this encounter Procedures Procedure [...] EST) Sodium 146(H) 135 - 145 mmol/L [facility] Potassium 3.0(L) 3.3 - 5.1 mmol/L [facility] Chloride 107 96 - 108 mmol/L [facility] Carbon Dioxide 30(H) 22 - 29 mmol/L [facility] Anion Gap 12 12 - 20 [facility] Urea Nitrogen (BUN) 9 9 - 16 mg/dL [facility] Creatinine, Serum 0.54 0.5 - 1.4 mg/dL [facility] Creatinine Clr Calc Pharmacy 148.7 [facility] Comment:Provided height and weight: 162.56 cm,115.666 kg.eGFR (calculated from the MDRD study equation) and eCrCl(calculated from the Cockcroft-Gault equation) are based ondifferent parameters and may not yield comparable results.If eCrCl result is absurd, please check patient'sheight/weight. Estimated Glomerular Filt Rate >60 [facility] Comment:NOTE: For -Am erican individuals, multiply the result by 1.210.Chronic Kidney Disease: Estimated GFR < 60 mL/min/1.57e5Lzpttm Kidney Disease: Estimated GFR < 15 mL/min/1.73m2 Glucose 117(H) 60 - 115 mg/dL [facility] Calcium 9.1 8.4 - 10.2 mg/dL [facility] Bilirubin, Total 0.4 0.0 - 1.0 mg/dL [facility] Aspartate Amino Transferase 19 5 - 31 U/L [facility] Alanine Aminotransferase 10 0 - 31 U/L [facility] Total Protein 6.9 6.5 - 8.0 g/dL [facility] Albumin Level 3.8 3.5 - 5.0 g/dL [facility] Alkaline Phosphatase 126(H) 39 - 117 U/L [facility] 03/13/2022 7:42 AM EST 03/13/2022 7:44 AM EST us [facility] External Provider LAB BLO OD ORDERABLES Final Result Performing Organization Address City/State/[facility] Co de Phone Number [facility] [address] [place] [phone] * (ABNORMAL) CBC auto differential (03/13/2022 7:42 AM EST) White Blood Count 10.3 4.8 - 10.8 X10*3/uL [facility] Red Blood Count 4.24 4.20 - 5.50 X10*6/uL [facility] Hemoglobin 11.0(L) 12.0 - 16.0 g/dl [facility] Hematocrit 36.1(L) 37.0 - 47.0 % [facility] Mean Corpuscular Volume 85.1 80.0 - 98.0 fL [facility] Mean Corpuscular Hemoglobin 25.9(L) 27.0 - 33.0 pg [facility] Mean Corpuscular HGB Conc 30.5(L) 31.0 - 35.0 g/dl [facility] Red Cell Distribution Width 15.9 11.0 - 16.0 % [facility] Platelet Count 266 160 - 400 X10*3/uL [facility] Mean Platelet Volume 10.1 9.4 - 12.3 fL [facility] Neutrophils Percent Auto 61.8 45 - 73 % [facility] Imm Gran Pct Auto 0.6(H) 0.0 - 0.4 % [facility] Lymphocytes Percent Auto 28.1 20 - 40 % [facility] Monocytes Percent Auto 7.3 2 - 11 % [facility] Eosinophils Percent Auto 1.8 0 - 4 % [facility] Basophils Percent Auto 0.4 0 - 2 % [facility] NRBC Pct Auto 0.0 0.0 - 0.2 /100WBC [facility] Neutrophils Absolute Auto 6.4 2.0 - 8.3 x10*3/uL [facility] Imm Gran Abs Auto 0.06(H) 0.00 - 0.03 X10*3/uL [facility] Lymphocytes Absolute Auto 2.9 1.2 - 4.9 X10*3/uL [facility] Monocytes Absolute Auto 0.8 0.1 - 1.2 X10*3/uL [facility] Eosinophils Absolute Auto 0.2 0.0 - 0.4 X10*3/uL [facility] Basophils Absolute Auto 0.0 0.0 - 0.2 X10*3/uL [facility] NRBC Abs Auto 0.000 0.0 - 0.012 X10*3/uL [facility] 03/13/2022 7:42 AM EST 03/13/2022 7:44 AM EST us [facility] External Provider LAB BLO OD ORDERABLES Final Result [facility] [address] [place] [address] [phone] * (ABNORMAL) GLUCOSE, WHOLE BLOOD (03/13/2022 5:16 AM EST) Glucose, Whole Blood 241(H) 60 - 115 mg/dL [facility] Comment:METER #: [id number] 1 03/13/2022 5:16 AM EST 03/13/2022 5:20 AM EST [facility] External Provider LAB BLO OD ORDERABLES Final Result [facility] [address] [place] [address] [phone] documented in this encounter Visit Diagnoses Diagnosis Vitamin B12 deficiency- Primary Other B-complex deficiencies documented in this encounter Care Teams Electronic Imaging System Operator Relationship Specialty Start Date End Date Jaida Martin DO [address] [place] [address] PCP - General Family Medicine 03/02/18 Pamela Andres Container CoordinatorAssociate School Psychologist 01/14/24 documented as of this encounter
--- OUTSIDE RECORDS SUMMARY | 2024-11-10 09:33 | XMS_ITS | Encounter Summary ---
Author Organization [employer] Address [address] [facility] 7t [place] [address] Care Team Providers Care Ripsaw Matcher Name Role Phone VeronicaJaida Primary Care Provider [phone] Reason for Visit * Reason Comments Med Refill Encounter Details Date Type Department Care Team ([facility] Contact Info) Description 05/14/2023 Refill [facility] [address] [place], [place] [phone] Suni Quintanilla MD [address] [place], [place] [phone] Social History Tobacco Use Types Packs/Day Years [...] Description 11/15/2024 10:00 AM EDT Office Visit [facility] [address] [place] [address] Jaida Martin DO [address] [place] [address] 12/27/2024 1:00 PM EDT Clinical Support [facility] [address] [place] [address] 02/10/2025 10:00 AM EST Office Visit [facility] ADULT DENTAL [address] [place] [address] Jc Fernandezaris [address] [place] [address] documented as of this encounter Visit Diagnoses Not on filedocumented in this encounter Care Teams Ripsaw Matcher Relationship Specialty Start Date End Date Jaida Martin DO [address] [place] [address] PCP - General Family Medicine 03/02/18 Pamela Andres Shipping Room SupervisorHuman Resources Representative 01/14/24 documented as of this encounter
--- OUTSIDE RECORDS SUMMARY | 2024-11-10 09:33 | XMS_ITS | Encounter Summary ---
Author Organization [employer] Address [address] [facility] 7t [place] [address] Care Team Providers Care Mud Engineer Name Role Phone Jaida Martin DO Primary Care Provider Encounter Details Date Type Department Care Team (Late Contact Info) Description 12/03/2022 Abstract [facility] [address] [place] [phone] Justine Huggins Social History Tobacco Use Types [...] Description 11/15/2024 10:00 AM EDT Office Visit [facility] [address] [place] [address] Jaida Martin DO [address] [place] [address] 12/27/2024 1:00 PM EDT Clinical Support [address] [phone] 02/10/2025 10:00 AM EST Office Visit [facility] ADULT DENTAL [address] [place], [place] [phone] Amanda Fernandez [address] [place] [address] documented as of this encounter Procedures Procedure Name Priority Date/Time Associated Diagnosis Comments HM PAP/HPV Routine 12/21/2019 documented in this encounter Results * Hm Pap Smear (12/21/2019) Pap Negative for intraephithelial lesion or malignancy Negative for intraephithelial lesion or malignancy, Other HPV Undetected Historical Provider HEALTH MAINTENANCE Final Result documented in this encounter Visit Diagnoses Not on filedocumented in this encounter Care Teams Mud Engineer Relationship Specialty Start Date End Date Jaida Martin DO [address] [place] [address] PCP - General Family Medicine 03/02/18 Pamela Andres Pipe Testing TechnicianHealthcare Facility Administrator 01/14/24 documented as of this encounter
--- OUTSIDE RECORDS SUMMARY | 2024-11-10 09:33 | XMS_ITS | Encounter Summary ---
Author Organization [employer] Address [address] [facility] 7t [place] [address] Care Team Providers Care Braker Passenger Train Name Role Phone Jaida Martin DO Primary Care Provider [phone] Encounter Details Date Type Department Care Team (Latest Contact Info) Description 03/12/2020 Abstract [facility] CONVERSIONS Dental, Provider, DDS Social History Tobacco [...] Care Team ( st Contact Info) Description 11/15/2024 10:00 AM EDT Office Visit [facility] MEDICINE [address] [place] [phone] Jaida Martin DO [address] [place] [address] 12/27/2024 1:00 PM EDT Clinical Support [facility]INE [address] [place] [address] 02/10/2025 10:00 AM EST Office Visit [facility] ADULT DENTAL [address] [place] [address] Amanda Fernandez [address] [place] [address] documented as of this encounter Visit Diagnoses Not on filedocumented in this encounter Care Teams Braker Passenger Train Relationship Specialty Start Date End Date Jaida Martin DO [address] [place] [address] PCP - General Family Medicine 03/02/18 Pamela Andres Blending Tank Tender HelperLeadership Recruiter 01/14/24 documented as of this encounter
--- OUTSIDE RECORDS SUMMARY | 2024-11-10 09:33 | XMS_ITS | Encounter Summary ---
Author Organization [employer] Address [address] [facility] 7t [place] [address] Care Team Providers Care Behavioral Health Clinician Name Role Phone Jaida Martin DO Primary Care Provider Reason for Visit * Reason Onset Date Comments Referral 05/05/2022 Encounter Details Date Type Department Care Team ([facility] st Contact Info) Description 05/05/[address] [facility]INE [address] [place], [place] [phone] Jaida Martin DO [address] [place] [address] Referral Social History Tobacco Use Types Packs/Day [...] AM EST Noted pt. Last seen by [facility] April 2021 for gastroparesis and acid reflux. TC placed to pt. And reports she attempted to schedule f/up appt. But was advised they need a new R number to approve more visits. Please send R number to [facility], thank you! * Telephone Encounter - Sugar Vazquez - 05/05/2022 9:30 AM EST Tc from pt requesting a referral Location : [facility] Specialty: Gastrology Date and time : N/A documented in this encounter Plan of Treatment Upcoming Encounters Date Type Department Care Team (Late st Contact Info) Description 11/15/2024 10:00 AM EDT Office Visit [facility] MEDICINE [address] [place] [address] Jaida Martin DO [address] [place] [address] 12/27/2024 1:00 PM EDT Clinical Support [facility] MED[facility]INE [address] [place] [address] 02/10/2025 10:00 AM EST Office Visit [facility] ADULT DENTAL [address] [place] [address] Jim Amanda [address] [place] [address] documented as of this encounter Visit Diagnoses Not on filedocumented in this encounter Care Teams Behavioral Health Clinician Relationship Specialty Start Date End Date Jaida Martin DO [address] [place] [address] PCP - General Family Medicine 03/02/18 Pamela Andres Franchise Development ManagerPackaging Coordinator 01/14/24 documented as of this encounter
--- OUTSIDE RECORDS SUMMARY | 2024-11-10 09:33 | XMS_ITS | Encounter Summary ---
Author Organization [employer] Address [address] [facility] 7t [place] [address] Care Team Providers Care Oracle Programmer Name Role Phone Jaida Martin DO Primary Care Provider [phone] Reason for Visit * Reason Comments Med Refill Encounter Details Date Type Department Care Team ([facility] st Contact Info) Description 09/27/2024 Refill [facility] MED[facility]INE [address] [place], [place] [phone] Jaida Martin DO [address] [place], [place] [phone] Anemia, unspecified type Social History Tobacco Use [...] 11/15/2024 10:00 AM EDT Office Visit [facility] MED[facility] [address] [place] [address] Jaida Martin DO [address] [place] [address] 12/27/2024 1:00 PM EDT Clinical Support [facility] [address] [place] [address] 02/10/2025 10:00 AM EST Office Visit [facility] ADULT DENTAL [address] [place] [address] Jim, Amanda [address] [place] [address] documented as of this encounter Visit Diagnoses Diagnosis Anemia, unspecified type documented in this encounter Additional Health Concerns Assessment Noted Time PHQ-9 Depression Total Score: 0 01/22/20 24 10:22 AM EST documented as of this encounter Care Teams Oracle Programmer Relationship Specialty Start Date End Date Jaida Martin DO [address] [place] [address], [place] [address] PCP - General Family Medicine 03/02/18 Pamela Andres Casino Cage SupervisorPrecision Assembler Bench 01/14/24 documented as of this encounter
--- OUTSIDE RECORDS SUMMARY | 2024-11-10 09:33 | XMS_ITS | Encounter Summary ---
Author Organization [employer] Address [address] [place] [address] 7t [place] [address] Care Team Providers Care Sr. Social Media & Mobile Manager Name Role Phone Jaida Martin DO Primary Care Provider [phone] Encounter Details Date Type Department Care Team (Late st Contact Info) Description 02/04/2022 Abstract [facility] ADULT DENTAL [address] [place] [address] Dental, Provider, DDS Social History Tobacco Use [...] Description 11/15/2024 10:00 AM EDT Office Visit [facility] [address] [place] [address] Jaida Martin DO [address] [place] [address] 12/27/2024 1:00 PM EDT Clinical Support [facility] [address] [place] [address] 02/10/2025 10:00 AM EST Office Visit [facility] ADULT DENTAL [address] [place] [address] Amanda Fernandez [address] [place] [address] documented as of this encounter Procedures Procedure [...] on filedocumented in this encounter Care Teams Sr. Social Media & Mobile Manager Relationship Specialty Start Date End Date Jaida Martin DO [address] [place] [address] PCP - General Family Medicine 03/02/18 Pamela Andres Electronic ImagerPaver Layer 01/14/24 documented as of this encounter
--- OUTSIDE RECORDS SUMMARY | 2024-11-10 09:33 | XMS_ITS | Clinical Summary ---
Author Organization [facility] ity Address [address] [place] [address] Care Team Providers Care Circulation Man Name Role Phone Unavailable Primary Care Provider [...]
--- OUTSIDE RECORDS SUMMARY | 2024-11-10 09:33 | XMS_ITS | Encounter Summary ---
Author Organization [employer] Address [address] [facility] 7t [place] [address] Care Team Providers Care Towboat Operator Name Role Phone Jaida Martin DO Primary Care Provider Encounter Details Date Type Department Care Team (Latest Contact Info) Description 06/04/2021 Abstract [facility] CONVERSIONS Dental, Provider, DDS Social History [...] Description 11/15/2024 10:00 AM EDT Office Visit [facility] MED[facility] [address] [place] [address] Jaida Martin DO [address] [place] [address] 12/27/2024 1:00 PM EDT Clinical Support [facility] [address] [place] [address] 02/10/2025 10:00 AM EST Office Visit [facility] ADULT DENTAL [address] [place] [address] Amanda Fernandez [address] [place] [address] documented as of this encounter Visit Diagnoses Not on filedocumented in this encounter Care Teams Towboat Operator Relationship Specialty Start Date End Date Jaida Martin DO [address] [place] [address] PCP - General Family Medicine 03/02/18 Pamlea Andres Lay Health AdvocateInstructor Bridge 01/14/24 documented as of this encounter
--- OUTSIDE RECORDS SUMMARY | 2024-11-10 09:33 | XMS_ITS | Encounter Summary ---
Author Organization [employer] Address [address] [facility] [address] 7t [place] [address] Care Team Providers Care Staff Air Defense Officer Name Role Phone VeronicaJaida Primary Care Provider [phone] Encounter Details Date Type Department Care Team ([facility] st Contact Info) Description 01/16/2023 Abstract [facility] MEDICINE [address] [place] [address] Justine Huggins Social History Tobacco Use Types [...] Description 11/15/2024 10:00 AM EDT Office Visit [facility] MEDICINE [address] [place] [address] Jaida Martin DO [address] [place] [address] 12/27/2024 1:00 PM EDT Clinical Support [facility] MED[facility]INE [address] [place] [address] 02/10/2025 10:00 AM EST Office Visit [facility] ADULT DENTAL [address] [place] [address] Jim, Amanda [address] [place] [address] documented as of this encounter Procedures Procedure Name Priority Date/Time Associated Diagnosis Comments COLONOSCOPY Routine 05/10/2018 documented in this encounter Results * Colonoscopy (05/10/2018) Colonoscopy Normal Normal Comment:Repeat in 5 years Historical Provider HEALTH MAINTENANCE Final Result documented in this encounter Visit Diagnoses Not on filedocumented in this encounter Care Teams Staff Air Defense Officer Relationship Specialty Start Date End Date Jaida Martin DO [address] [place] [address] PCP - General Family Medicine 03/02/18 Pamela Andres Snow Fence ErectorAthletic Equipment Manager 01/14/24 documented as of this encounter
--- OUTSIDE RECORDS SUMMARY | 2024-11-10 09:33 | XMS_ITS | Encounter Summary ---
Author Organization [employer] Address [address] [facility] 7t [place] [address] Care Team Providers Care Ceramics Instructor Name Role Phone Jaida Martin DO Primary Care Provider Reason for Visit * Reason Onset Date Comments Durable Medical Equipment 10/01/2022 Encounter Details Date Type Department Care Team ([facility] st Contact Info) Description 10/01/2022 Telephone [facility] MEDICINE [address] [place] [address] Jaida Martin DO [address] [place], [place] [phone] Durable Medical Equipment Social History Tobacco Use [...] Description 11/15/2024 10:00 AM EDT Office Visit [facility] MED[facility]INE [address] [place] [address] Jaida Martin DO [address] [place] [address] 12/27/2024 1:00 PM EDT Clinical Support [facility] MEDICINE [address] [place] [address] 02/10/2025 10:00 AM EST Office Visit [facility] ADULT DENTAL [address] [place] [address] Jim, Amanda [address] [place] [address] documented as of this encounter Visit Diagnoses Not on filedocumented in this encounter Care Teams Ceramics Instructor Relationship Specialty Start Date End Date Jaida Martin DO [address] [place] [address] PCP - General Family Medicine 03/02/18 Pamela Andres Preschool Teacher'S AssistantInstant Printer Operator 01/14/24 documented as of this encounter
--- OUTSIDE RECORDS SUMMARY | 2024-11-10 09:33 | XMS_ITS | Clinical Summary ---
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 Procedure Name Priority Date/Time Associated Diagnosis Comments COMPREHENSIVE METABOLIC PANEL Routine 12/30/2023 9:51 AM EDT Intention tremor from Last 3 Months or Most Recently Relevant to Health Maintenance Results * Due to [facility] law, this organization might not be sharing negative HIV tests. * (ABNORMAL) Comprehensive Metabolic Panel (12/30/2023 9:51 AM EDT) NA 140 135 - 145 mmol/L 12/30/2023 11:25 AM EDT [facility] K 3.6 3.5 - 5.3 mmol/L 12/30/2023 11:25 AM EDT [facility] Cl 102 98 - 107 mmol/L 12/30/2023 11:25 AM EDT [facility] CO2 27 22 - 32 mmol/L 12/30/2023 11:25 AM EDT [facility] Anion Gap 11 5 - 15 12/30/2023 11:25 AM [facility] Glucose 171(H) 65 - 99 mg/dL 12/30/2023 11:25 AM [facility] Creatinine 0.41(L) 0.50 - 1.20 mg/dL 12/30/2023 11:25 AM [facility] Calcium 9.0 8.6 - 10.5 mg/dL 12/30/2023 11:25 AM [facility] Total Protein 7.6 6.0 - 8.0 g/dL 12/30/2023 11:25 AM [facility] Albumin 4.2 3.5 - 5.2 g/dL 12/30/2023 11:25 AM [facility] Bilirubin, Total 0.3 0.2 - 1.2 mg/dL 12/30/2023 11:25 AM [facility] Alkaline Phosphatase 152(H) 35 - 129 U/L 12/30/2023 11:25 AM [facility] AST 19 10 - 40 U/L 12/30/2023 11:25 AM [facility] ALT 12 10 - 40 U/L 12/30/2023 11:25 AM [facility] BUN 12 7 - 23 mg/dL 12/30/2023 11:25 AM [facility] eGFR >90 >=60 mL/min/1 .73m2 12/30/2023 11:25 AM [facility] Comment:The estimated glomer [...] - 4.2 g/dL 12/30/2023 11:25 AM EDT [facility] A/G Ratio 1.2(L) 1.5 - 3.0 12/30/2023 11:25 AM EDT [facility] Blood Structure of peripheral vein / Unknown Venipuncture / Unknown 12/30/2023 9:51 AM EDT 12/30/2023 10:39 AM EDT us Nancy Petty MD LAB BLOOD ORDERABLES Fi nal Result [facility] [address] [place] [address], from Last 3 Months or Most Recently Relevant to Health Maintenance Insurance [facility] Care 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
--- OUTSIDE RECORDS SUMMARY | 2024-11-10 09:33 | XMS_ITS | Clinical Summary ---
Author Organization [employer] Address [address] [facility] [address] [place] [address] Care Team Providers Care Landscape Architect And Planner Name Role Phone VeronicaJaida Primary Care Provider [phone] Allergies No known active allergies Medications * [...] 2 times daily. Active TRUEplus Lancets 33G [facility] [place] BLOOD SUGAR 4 TIMES A DAY [...] 2 PUFFS BY MOUTH EVERY DAY Active Diclofenac Sodium 1 % gel Please use as needed for pain up to 4x daily 150 g 3 Active glucose 4 g chewable tablet CHEW 4 TABLETS NEEDED FOR low blood sugar (LESS THAN 70mg/dL). TEST BLOOD SUGAR AFTER 15 MINUTES IF <70 REPEAT 90 tablet 4 Active Continuous Glucose Sensor (FreeStyle Ortiz 2 Sensor) [facility] Take 1 tablet by mouth Once per day. Active Aspirin Low Dose 81 MG EC tabletIndications:H yperlipidemia, unspecified hyperlipidemia type TAKE 1 TABLET BY MOUTH EVERY MORNING 90 tablet 3 Active levothyroxine (Synthroid, Levoxyl) 125 MCG tabletIndications:H ypothyroidism, unspecified type TAKE 1 TABLET BY MOUTH EVERY MORNING 90 tablet 3 Active cholecalciferol (D3 Super Strength) 50 MCG (1999 UT) capsuleIndications: Vitamin D deficiency TAKE 1 CAPSULE BY MOUTH EVERY MORNING 90 capsule 3 Active thiamine (Vitamin B-1) 100 MG tabletIndications:A nemia, unspecified type TAKE 1 TABLET BY MOUTH EVERY MORNING 90 tablet 3 Active Mounjaro 10 MG/0.5ML solution auto-injector INJECT ONE PEN (=10MG) SUBCUTANEOUSLY ONCE A WEEK DIRECTED Active lidocaine (Lidoderm) 5 % patch APPLY 1 TO 2 PATCHES TOPICALLY TO AFFECTED AREA(S). LEAVE ON FOR 12 HOURS, OFF FOR 12 HOURS. USE NEEDED FOR MILD PAIN. 60 patch 3 Active metFORMIN (Glucophage) 500 MG tabletIndications:T ype 2 diabetes mellitus with other specified complication, with long-term current use of insulin (CMS/HCC) TAKE 2 TABLETS BY MOUTH TWICE DAILY IN THE MORNING AND EVENING 360 tablet 3 Active Continuous Glucose Salon Sales Consultant (FreeStyle Ortiz 3 [place]) device use as directed Active insulin NPH, Isophane, (HumuLIN N,NovoLIN N) 100 UNIT/ML injection Inject 50 Units under the skin every 12 (twelve) hours. Active albuterol (2.5 MG/3ML) 0.083% nebulizer solution INHALE 1 AMPULE USING A NEBULIZER EVERY 6 HOURS NEEDED FOR WHEEZING 90 mL 1 025 Active valsartan (Diovan) 160 MG tabletIndications:H ypertension, unspecified type TAKE 1 TABLET BY MOUTH EVERY MORNING 90 tablet 1 025 Active rosuvastatin (Crestor) 20 MG tabletIndications:H yperlipidemia, unspecified hyperlipidemia type TAKE 1 TABLET BY MOUTH AT BEDTIME 90 tablet 025 Active omeprazole (PriLOSEC) [address] capsuleIndications: Chronic gastroesophageal reflux disease TAKE 1 CAPSULE BY MOUTH EVERY MORNING BEFORE A MEAL 90 capsule 025 Active Arnuity Ellipta 200 MCG/ACT inhaler INHALE 1 PUFF BY MOUTH EVERY DAY AT THE SAME TIME RINSE MOUTH AFTER USING. DO NOT SWALLOW 30 each 025 Active docusate sodium (Colace) 100 MG capsuleIndications: Chronic constipation TAKE 1 CAPSULE BY MOUTH TWICE DAILY IN THE MORNING AND IN THE EVENING 180 capsule 025 Active cyanocobalamin (Vitamin B-12) 1000 MCG/ML injectionIndication s:B12 deficiency INJECT 1 ML INTRAMUSCULARLY EVERY OTHER MONTH 2 mL 025 Active Ferrous Sulfate (iron) 325 (65 Fe) MG tabletIndications:A nemia, unspecified type TAKE 1 TABLET BY MOUTH EVERY OTHER DAY IN THE MORNING 45 tablet 025 Active pregabalin (Lyrica) 50 MG capsuleIndications: Diabetic polyneuropathy associated with type 2 diabetes mellitus (CMS/HCC) Take 1 capsule (50 mg) by mouth 3 times daily. 90 capsule 1 025 Active Hospital, Clinic, or Other Facility Administered Medication Ordered Dose Route Frequency Start Date End Date Status cyanocobalamin (Vitamin B-12) injection 1,000 mcgIndications:B12 deficiency 1000 mcg IM Every 8 weeks 02/15/2024 03/13/2025 Active Active Problems Problem Noted Date Diagnosed Date Dental caries on smooth surface limited to ename l 08/03/2024 Xerostomia 08/01/2024 Fractured dental yazidism with loss of materi al 06/24/2023 Missing teeth, acquired 04/17/2023 Dental plaque 04/17/2023 History of COVID-19 [...] managed by Pulmonology Appt 07/10/22 Treating Arben Hrae + CLIVE PRN Reports she had O2 [...] ambulance. WHO with EMS staff Taken to [facility] for SOB, weakness Will monitor for ED [...] URI + Prednisone use Mounjaro Rx by nut feeder yesterday is on backorder for at least [...] glucose gel + glucagon Pt seen by systems applications programming lead at [facility] this yr [...] Encounters Date Type Department Care Team Description 11/10/2024 Orders Only GENERIC EXTERNAL DATA DEPARTMENT Provider, Generic External Data 11/07/2024 [facility] Outreach [facility] [address] [facility] [place] [address] Jaida Martin DO Pre-visit Planning (SDOH screening negative and tobacco screening negative) 10/25/2024 Telephone [facility] [place] [address] Jaida Martin DO Medication Question 10/25/2024 Travel 10/25/2024 [address] [place] [address] Jaida Martin DO Appointment Request 10/24/2024 10:00 AM EDT Clinical Support [facility] [place] [address] Blank Blank, RN Vitamin B12 deficiency 10/24/2024 Refill [facility] [address] [place] [address] Blank Blank, RN Other polyneuropathy; Diabetic polyneuropathy associated with type 2 diabetes mellitus ([facility]) 10/24/2024 Travel 10/18/2024 Orders Only [facility] [address] [facility] [place] [address] Jaida Martin DO 09/27/2024 Refill [facility] [address] [facility] [place] [address] Jaida Martin DO Anemia, unspecified type 09/22/2024 Refill [facility] [address] [facility] [place] [address] Jaida Martin DO Anemia, unspecified type 09/18/2024 Refill [facility] [address] [place] [address] Jaida Martin DO B12 deficiency 08/24/2024 Refill [facility] [address] [place] [address] Jaida Martin DO Chronic constipation 08/20/2024 Refill [facility] [address] [place] [address] Jaida Martin DO 08/15/2024 11:15 AM EDT Office Visit [facility] [address] [place] [address] Jaida Martin DO Type 2 diabetes mellitus with microalbuminuria, with long-term current use of insulin ([facility]) (Primary Dx); Essential hypertension; Other hyperlipidemia; Major depression, recurrent, chronic (CMS/HCC); Fatty liver; Mild persistent asthma without complication; Obstructive sleep apnea; Mixed stress and urge urinary incontinence; Fibromyalgia; Chronic bilateral low back pain, unspecified whether sciatica present; Chronic pain of both knees; Peripheral polyneuropathy; Tremor; Healthcare maintenance; Encounter for screening mammogram for malignant neoplasm of breast 08/15/2024 Travel 08/11/2024 Telephone [facility] [address] [place] [address] Jaida Martin DO Chart Prep 08/11/2024 Orders Only GENERIC EXTERNAL DATA DEPARTMENT Provider, Generic External Data from Last 3 Months Immunizations Immunization Administration Dates Next Due Hep A, Adult [...] Sign Reading Time Taken Comments Blood Pressure 124/78 08/15/2024 11:03 AM EDT Pulse 85 08/15/2024 11:03 AM EDT Temperature 36.6 C (97.9 F) 08/15/2024 11:03 AM EDT Respiratory Rate 21 08/15/2024 11:03 AM EDT Oxygen Saturation 98% 08/15/2024 11:03 AM EDT Inhaled Oxygen Concentration - - Weight 105 kg (231 lb 8 oz) 08/15/2024 11:03 AM EDT Height 157.5 cm (5' 2 ) 08/15/2024 11:03 AM EDT Body Mass Index 42.34 08/15/2024 11:03 AM EDT Plan of Treatment Upcoming Encounters Date Type Department Care Team (Late st Contact Info) Description 11/15/2024 10:00 AM EDT Office Visit [facility] [address] [place] [phone] Jaida Martin DO [address] [place] [address] 12/27/2024 1:00 PM EDT Clinical Support [facility] [address] [place] [phone] 02/10/2025 10:00 AM EST Office Visit [facility] [address] [place] [phone] Amanda Fernandez [address] [place] [address] Health Maintenance Due Date Last Done Comments CT Colonography 1967 FIT DNA/Cologuard 1967 FIT 1967 FOBT 1967 Sigmoidoscopy 1967 Pap Smear 12/20/2022 12/21/2019 Colonoscopy 05/11/2023 05/10/2018 Colorectal Cancer Screening 05/11/2023 Diabetes: Foot Exam 05/28/2024 05/29/2023, 05/29/2023, 05/29/2023, Additional history exists Influenza Vaccine (#1) 2024 , 11/18/2022, 11/21/2021, Additional history exists Cervical Cancer Screening 12/20/2024 HPV/Cotest 12/20/2024 12/21/2019 Alcohol/Substance Use Screening 01/21/2025 01/22/2024 Depression Screening 01/21/2025 01/22/2024, 01/22/20 24 Diabetes: Hemoglobin A1C 01/24/2025 025, 08/15/2024, 03/30/2024, Additional history exists Dental Oral Exam 02/01/2025 08/01/2024, , 04/22/2022 Dental Prophylaxis 02/01/2025 08/01/2024, 0 04/17/2023, 04/22/2022 Dental X-Ray: Bitewings 08/02/2025 08/02/19 25, 04/17/2023, 04/22/2022 Disability Screening 08/15/2025 08/15/2024 Tobacco Screening 08/15/2025 08/15/2024 Lipid Panel 10/24/2025 10/24/2024, 03/03, 03/30/2024, Additional history exists SDOH Screening 11/07/2025 11/07/2024 Eye Exam 03/17/2026 03/17/2024, 03/02, 03/17/2024, Additional history exists Mammogram 10/18/2026 10/18/2024, 08/01, 07/29/2022, Additional history exists Dental X-Ray: Full Mouth 08/03/2027 08/01/2024, 05/31 DTaP/Tdap/Td Vaccines (4 - Td or Tdap) [...] Completed 01/22/2024, , 07/30/2021, Additional history exists HIB Vaccines Aged Out [...] WHOLE BLOOD Routine 11/10/2024 8:54 AM EDT IRON AND TOTAL IRON BINDING CAPACITY Routine 10/24/2024 9:18 AM EDT Type 2 diabetes mellitus with microalbuminuria, with long-term current use of insulin ([facility]) FERRITIN Routine 10/24/2024 9:18 AM EDT Type 2 diabetes mellitus with microalbuminuria, with long-term current use of insulin (CMS/HCC) VITAMIN B12/FOLATE, SERUM PANEL Routine 10/24/2024 9:18 AM EDT Type 2 diabetes mellitus with microalbuminuria, with long-term current use of insulin (CMS/HCC) ALPHA FETOPROTEIN, TUMOR MARKER Routine 10/24/2024 9:18 AM EDT Fatty liver ALBUMIN, RANDOM URINE W/CREATININE Routine 10/24/2024 9:18 AM EDT Type 2 diabetes mellitus with microalbuminuria, with long-term current use of insulin (CMS/HCC) CBC Routine 10/24/2024 9:18 AM EDT Type 2 diabetes mellitus with microalbuminuria, with long-term current use of insulin (CMS/HCC) BASIC METABOLIC PANEL Routine 10/24/2024 9:18 AM EDT Type 2 diabetes mellitus with microalbuminuria, with long-term current use of insulin (CMS/HCC) HEMOGLOBIN A1C Routine 10/24/2024 9:18 AM EDT Type 2 diabetes mellitus with microalbuminuria, with long-term current use of insulin (CMS/HCC) HEPATIC FUNCTION PANEL Routine 9:18 AM EDT Type 2 diabetes mellitus with microalbuminuria, with long-term current use of insulin (CMS/HCC) TSH Routine 10/24/2024 9:18 AM EDT Type 2 diabetes mellitus with microalbuminuria, with long-term current use of insulin (CMS/HCC) LIPID PANEL, STANDARD Routine 10/24/2024 9:18 AM EDT Type 2 diabetes mellitus with microalbuminuria, with long-term current use of insulin (CMS/HCC) VITAMIN D,25-OH,TOTAL,IA Routine 10/24/2024 9:18 AM EDT Type 2 diabetes mellitus with microalbuminuria, with long-term current use of insulin (CMS/HCC) T4, FREE Routine 10/24/2024 9:18 AM EDT Type 2 diabetes mellitus with microalbuminuria, with long-term current use of insulin ([facility]) BI MAMMOGRAM SCREENING TOMOSYNTHESIS BILATERAL Routine 10/18/2024 11:35 AM EDT US ABDOMEN COMPLETE WITH ELASTOGRAPHY Routine 08/23/2024 8:05 AM EDT POCT GLYCATED HEMOGLOBIN, TOTAL Routine 08/15/2024 11:06 AM EDT Type 2 diabetes mellitus with microalbuminuria, with long-term current use of insulin ([facility]) POCT GLUCOSE Routine 08/15/2024 11:05 AM EDT Type 2 diabetes mellitus with microalbuminuria, with long-term current use of insulin ([facility]) GLUCOSE, WHOLE BLOOD Routine 08/11/2024 8:57 AM EDT PROPHYLAXIS - ADULT Routine 08/01/2024 1 0:00 AM EDT Dental plaque INTRAORAL - COMPLETE SERIES OF RADIOGRAPHIC IMAGES Routine 08/01/2024 10:00 AM EDT Dental caries Dental plaque Missing teeth, acquired Partial edentulism, unspecified edentulism class PERIODIC ORAL EVALUATION - ESTABLISHED PATIENT Routine 08/01/2024 10:00 AM EDT HEPATITIS PANEL, GENERAL Routine 07/21/2023 8:47 AM EDT HIV 1/2 ANTIGEN/ANTIBODY, FOURTH GENERATION W/RFL Routine 03/12/2020 8:49 AM EST HM PAP/HPV Routine 12/21/2019 HM COLONOSCOPY Routine 05/10/2018 from Last 3 Months or Most Recently Relevant to Health Maintenance Results * (ABNORMAL) Glucose, Whole Blood (11/10/2024 8:54 AM EDT) Only the most recent of2 resultswithin the time period is included. Glucose, Whole Blood 186(H) 60 - 115 mg/dL [facility] Comment:METER #: [id number] 0Testing performed in the Endocrinology Department [address] , [address], [place]. 11/10/2024 8:54 AM EDT 11/10/2024 8:58 AM EDT us Generic External Data Provider LAB BLOOD ORDERAB LES Final Result [facility] [address] [place] [address] [phone] * Vitamin D, 25-Hydroxy, Total, Immunoassay (10/24/2024 9:18 AM EDT) Pathologist [facility] Vitamin D 25-OH Total 31.8 >30 ng/mL [facility] Comment: Health Based Reference Values*< 20 ng/mL [id number] ng/mL Insufficient> 30 ng/mL Sufficient*Jimmy NEWMAN. N Engl J Med. 2007;357:266-280There is no well-established upper level of normal vitamin Dlevels. Some laboratories use 50 ng/mL as an upper limit ofnormal. However, toxicity is patient-dependent and may occurat any level. Careful correlation with the patient'spresentation is necessary and, if there is concern forvitamin D toxicity, treatment should be consideredirrespective of the serum level.Care must be taken in interpreting Vitamin D results fromdifferent laboratories and methodologies. Published datademonstrated that results from patients undergoinghemodialysis may show a negative bias when tested withvarious automated 25-OH vitamin D assays when compared toLC-MS/MS.When testing samples from patients whose predominant form ofVitamin D is Vitamin D2, such as patients receiving VitaminD2 supplementation, results that are subtherapeutic shouldbe confirmed with another method such as LC-MS/MS. Blood Venous blood specimen / Unknown 10/24/2024 9:18 AM EDT 10/24/2024 11:03 AM EDT us Jaida Martin DO LAB BLOOD ORDERABLES Final R esult Performing Organization Address City/[facility]/ZIP Co de Phone Number [facility] [address] [place] [phone] * Vitamin B12 (Cobalamin) and Folate Panel, Serum (10/24/2024 9:18 AM EDT) Vitamin B12 330 200 - 900 pg/mL [facility] Comment:NORMAL 200-900 PG/ML INDETERMINATE 160-199 PG/ML DEFICIENT < 160 PG/ML Folate 4.7 > or = 4.0 ng/mL [facility] Comment:Reference Values:> o r = 4.0 ng/mL< 4.0 ng/mL suggests folate deficiency Methotrexate, aminopterin and folinic acid(leucovorin) are chemotherapeutic agents whose molecularstructures are similar to folate; therefore, the Architectfolate assay cannot be used for patients using these drugs. Blood 10/24/2024 9:18 AM EDT 10/24/2024 11:03 AM EDT Jaida Veronica surespot LAB BLOOD ORDERABLES Final R esult Performing Organization Address [facility] Co de Phone Number [facility] [address] [place] [phone] * Albumin, Random Urine W/Creatinine (10/24/2024 9:18 AM EDT) Creatinine, Urine 125.62 mg/dL [facility] Microalbumin Urine 16.0 mg/L [facility] Microalbum Creatinine Ratio Ur 12.7 <30 ug/mg cr [facility] Comment:Albumin/Creatinine R atio Reference Ranges: Normal: < 30 ug/mg creatinine Microalbuminuria: 30 - 300 ug/mg creatinineClinical Albuminuria: > 300 ug/mg creatinine Urine (Urine, Random) 10/24/2024 9:18 AM EDT 10/24/2024 11:00 AM EDT Jaida Robertsfelicita DO LAB URINE ORDERABLES Final R esult Performing Organization Address [facility] Co de Phone Number [facility] [address] [place] [phone] * Iron And Total Iron Binding Capacity (10/24/2024 9:18 AM EDT) Iron 52 30 - 160 mcg/dL [facility] Total Iron Binding Capacity 279 228 - 428 mcg/dL [facility] Percent Iron Saturation 19 15 - 50 % [facility] Unsaturated Iron Binding 227 ug/dL [facility] Blood Venous blood specimen / Unknown 10/24/2024 9:18 AM EDT 10/24/2024 11:03 AM EDT Jaida Martin LAB BLOOD ORDERABLES Final R esult Performing Organization Address [facility] Phone Number [facility] [address] [place] [phone] * Alpha-Fetoprotein, Tumor Marker (10/24/2024 9:18 AM EDT) Pathologist [facility] Alpha Fetoprotein 1.7 ng/mL [facility] Comment:Reference Range: <6. 1The use of AFP as a tumor marker in females is not recommended.This test was performed using the Torin Coulterchemiluminescent method. Values obtained fromdifferent assay methods cannot be usedinterchangeably. AFP levels, regardless ofvalue, should not be interpreted as absoluteevidence of the presence or absence of disease.THIS TEST WAS PERFORMED AT:[facility] [place] [phone] BRASWELL MD Blood Venous blood specimen / Unknown 10/24/2024 9:18 AM EDT 10/24/2024 11:03 AM EDT Jaida Martin LAB BLOOD ORDERABLES Final R esult Performing Organization Address [facility] Co de Phone Number [facility] [address] [place] [address] [phone] * (ABNORMAL) CBC (10/24/2024 9:18 AM EDT) White Blood Count 9.8 4.8 - 10.8 X10*3/uL [facility] Red Blood Count 4.63 4.20 - 5.50 X10*6/uL [facility] Hemoglobin 12.0 12.0 - 16.0 g/dl [facility] Hematocrit 39.2 37.0 - 47.0 % [facility] Mean Corpuscular Volume 84.7 80.0 - 98.0 fL [facility] Mean Corpuscular Hemoglobin 25.9(L) 27.0 - 33.0 pg [facility] Mean Corpuscular HGB Conc 30.6(L) 31.0 - 35.0 g/dl [facility] Red Cell Distribution Width 15.3 11.0 - 16.0 % [facility] Platelet Count 336 160 - 400 X10*3/uL [facility] Mean Platelet Volume 11.1 9.4 - 12.3 fL [facility] NRBC Pct Auto 0.0 0.0 - 0.2 /100WBC [facility] NRBC Abs Auto 0.000 0.0 - 0.012 X10*3/uL [facility] Blood Venous blood specimen / Unknown 10/24/2024 9:18 AM EDT 10/24/2024 11:03 AM EDT us Jaida Martin DO LAB BLOOD ORDERABLES Final R esult [facility] [address] [place] [phone] * TSH (10/24/2024 9:18 AM EDT) Pathologist [facility] Thyroid Stimulating Hormone 2.81 0.32 - 4.0 uIU/mL [facility] Comment:Note: A sustained TS H level above 2.5 uIU/mL may warrant further investigation. TSH 3rd Generation ([facility]) Blood Venous blood specimen / Unknown 10/24/2024 9:18 AM EDT 10/24/2024 11:03 AM EDT Jaida Robertsluisaradha DO LAB BLOOD ORDERABLES Final R esult Performing Organization Address City/[facility]/ZIP Co de Phone Number [facility] [address] [place] [phone] * T4, Free (10/24/2024 9:18 AM EDT) Free T4 (Free Thyroxine) 1.22 0.71 - 1.85 ng/dL [facility] Blood Venous blood specimen / Unknown 10/24/2024 9:18 AM EDT 10/24/2024 11:03 AM EDT Jaida Robertsfelicita DO LAB BLOOD ORDERABLES Final R esult Performing Organization Address City/[facility]/ZIP Co de Phone Number [facility] [address] [place] [phone] * (ABNORMAL) Hemoglobin A1c (10/24/2024 9:18 AM EDT) Hemoglobin A1c 7.0(H) <6.0 % [facility] Comment:Hemoglobin A1C Refer ence Range Adults: 4.8 - 6.0 % Non diabetic: < 6.0 % Goal: < 7.0 %Additional Action Suggested: > 8.0 %Note: Hemoglobin A1c results are invalid for patients with abnormal amounts of HbF. Blood transfusions may impact the HbA1c concentration in the patient sample. Estimated Average Glucose 154 mg/dL [facility] Comment:eAG = Estimated ave rage glucose which is %A1C expressed asaverage glucose, using the formula of the X3E-FhnldeyEkqfjvj Glucose study (ADAG), Diabetes Care, Vol.31,#8,2007 Blood Venous blood specimen / Unknown 10/24/2024 9:18 AM EDT 10/24/2024 11:03 AM EDT Jaida Martin DO LAB BLOOD ORDERABLES Final R esult Performing Organization Address City/[facility]/ZIP Co de Phone Number [facility] [address] [place] [phone] * Ferritin (10/24/2024 9:18 AM EDT) Ferritin 169 10 - 250 ng/mL [facility] Blood Venous blood specimen / Unknown 10/24/2024 9:18 AM EDT 10/24/2024 11:03 AM EDT Jaida Martin DO LAB BLOOD ORDERABLES Final R esult Performing Organization Address [facility] de Phone Number [facility] [address] [place] [phone] * (ABNORMAL) Hepatic Function Panel (10/24/2024 9:18 AM EDT) Bilirubin, Total 0.5 0.0 - 1.0 mg/dL [facility] Bilirubin, Direct 0.2 0.0 - 0.5 mg/dL [facility] Aspartate Amino Transferase 27 5 - 31 U/L [facility] Alanine Aminotransferase 10 0 - 31 U/L [facility] Total Protein 7.9 6.5 - 8.0 g/dL [facility] Albumin Level 4.2 3.5 - 5.0 g/dL [facility] Alkaline Phosphatase 143(H) 39 - 117 U/L [facility] Blood Venous blood specimen / Unknown 10/24/2024 9:18 AM EDT 10/24/2024 11:03 AM EDT Jaida Martin DO LAB BLOOD ORDERABLES Final R esult Performing Organization Address City/[facility] Co de Phone Number [facility] [address] [place] [phone] * Lipid Panel, Standard (10/24/2024 9:18 AM EDT) Triglycerides 115 <150 mg/dL [facility] Comment:Desirable Triglyceri de: less than 150 mg/dLBorderline High Triglyceride 150-199 mg/dLHigh Triglyceride: 200-499 mg/dLVery High Triglyceride: greater than or equal to 5OO mg/dL Cholesterol 101 <200 mg/dL [facility] Comment:Desirable Cholestero l: less than 200 mg/dLBorderline High Cholesterol: 200-239 mg/dLHigh Cholesterol: greater than 239 mg/dL LDL Cholesterol Calculated 36 <100 mg/dL [facility] Comment:Desirable LDL: less than 100 mg/dLNear Optimal/Above Optimal LDL: 110- 129 mg/dLBorderline High LDL: 130-159 mg/dLHigh LDL: 160-189 mg/dLVery High LDL: greater than or equal to 190 mg/dL HDL Cholesterol 42 >40 mg/dL [facility] Comment:Desirable HDL: great er than 40 mg/dL Note: This HDL assay may give artificially low results in patients with liver disease. Blood Venous blood specimen / Unknown 10/24/2024 9:18 AM EDT 10/24/2024 11:03 AM EDT us Jaida Martin DO LAB BLOOD ORDERABLES Final R esult [facility] [address] [place] [address] [phone] * (ABNORMAL) Basic Metabolic Panel (10/24/2024 9:18 AM EDT) Sodium 142 135 - 145 mmol/L [facility] Potassium 3.5 3.3 - 5.1 mmol/L [facility] Chloride 102 96 - 108 mmol/L [facility] Carbon Dioxide 30(H) 22 - 29 mmol/L [facility] Anion Gap 14 12 - 20 [facility] Urea Nitrogen (BUN) 12 9 - 16 mg/dL [facility] Creatinine, Serum 0.53 0.5 - 1.4 mg/dL [facility] Estimated Glomerular Filt Rate >60 [facility] Comment:Chronic Kidney Disea se: Estimated GFR < 60 mL/min/[id number] Kidney Disease: Estimated GFR < 15 mL/min/1.73m2 Glucose 212(H) 60 - 115 mg/dL [facility] Calcium 9.5 8.4 - 10.2 mg/dL [facility] Blood Venous blood specimen / Unknown 10/24/2024 9:18 AM EDT 10/24/2024 11:03 AM EDT Jaida Martin DO LAB BLOOD ORDERABLES Final R esult [facility] [address] [place] [address] [phone] * BI Mammogram Screening Tomosynthesis Bilateral (10/18/2024 11:35 AM EDT) Anatomical Region Laterality Modality Breast Bilateral Mammography 10/18/2024 11:3 5 AM EDT Narrative 10/20/2024 8:23 AM EDT [facility] [address] [place] [address] Mammography Report Signed Patient: Candace Valdez MR#: [id number] : 1965 Acct:[id number] Age/Sex: 59 / F ADM Date: 10/18/24 Loc: HO.MAMMO Attending Dr: Jaida Martin DO Ordering Physician: Jaida Martin DO Results: 1N egative Date of Service: 10/18/24 Follow Up: 1 Year From Orig ina Mammogram Procedure(s): MM tomosynthesis screening BI Accession Number(s): [id number] cc: Jaida Martin DO EXAMINATION: MM SCREENING DIGITAL BREAST TOMOSYNTHESIS, BILATERAL CLINICAL INFORMATION: Screening. Asymptomatic. COMPARISON: Mammography: Comparison is made with available priors TECHNIQUE: Digital breast mammography with tomosynthesis is performed in both the craniocaudal and mediolateral oblique views along with computer-aided detection (CAD). FINDINGS: There are scattered areas of fibroglandular [...] target due date for their next mammogram. Electronically signed by: Sulema Joseph DO 10/20/2024 08:19 AM EDT RP Dictated By: Sulema Joseph DO Signed By: <Electronically signed by Sulema Joseph DO in OV> 10/20/24 0819 DD/ 1135 TD/TT: 10/18/24 1156 Filter Plant Supervisor: Procedure Note Donotuseinterpreter, Image - 10/20/2024 [facility] [address] [place] [address] Mammography Report Signed Patient: Kelsea Valdez#: M [id number] : 1965Acct:[id number] Age/Sex: 59 / FADM Date: 10/18/24 Loc: NIKOLASO Attending Dr: Jaida Martin DO Ordering Physician: Jaida Martin DOResults: 1N egative Date of Service: 10/18/24Follow Up: 1 Year From [facility] Mammogram Procedure(s): MM tomosynthesis screening BI Accession Number(s): [id number] cc: Jaida Martin DO EXAMINATION: MM SCREENING DIGITAL BREAST TOMOSYNTHESIS, BILATERAL CLINICAL INFORMATION: Screening. Asymptomatic. COMPARISON: Mammography: Comparison is made with available priors TECHNIQUE: Digital breast mammography with tomosynthesis is performed in both the craniocaudal and mediolateral oblique views along with computer-aided detection (CAD). FINDINGS: There are scattered areas of fibroglandular [...] target due date for their next mammogram. Electronically signed by: Sulema Joseph DO 10/20/2024 08:19 AM EDT RP Dictated By: Sulema Joseph DO Signed By: <Electronically signed by Sulema Joseph DO in OV> 10/20/24818 DD/ 1135 TD/TT: 10/18/24 1156 Filter Plant Supervisor: us Jaida Martin DO IMG BI PROCEDURES Final Resu lt * US Abdomen Comp w elastography (08/23/2024 8:05 AM EDT) Anatomical Region Laterality Modality Abdomen Ultrasound 08/23/2024 8:05 AM EDT Narrative 08/23/2024 9:19 AM EDT [place] [address] Ultrasound Report Signed Patient: Cadnace Valdez MR#: [id number] : 1965 Acct:[id number] Age/Sex: 59 / F ADM Date: 08/23/24 Loc: .US Attending Dr: Kamila Blackman MD Ordering Physician: Kamila Blackman MD Date of Service: 08/23/24 Procedure(s): US abdomen comp w elastography Accession Number(s): [id number] cc: Jaida Martin DO; Kamila Blackman MD EXAMINATION: US ABDOMEN COMPLETE WITH LIVER ELASTOGRAPHY HISTORY: K76.0 - Fatty (change of) liver, not elsewhere classified TECHNIQUE: Real-time grayscale ultrasound imaging of the abdomen was performed and images were reviewed. COMPARISON: Comparison is made with the prior examination dated 12/28/2023. FINDINGS: Liver: The right lobe of the liver measures 20.8 cm in size. The left lobe of the liver measures 10.8 cm in size. The liver demonstrates increased echotexture, consistent with steatosis. The liver contour appears somewhat nodular, suggestive of cirrhosis. No focal mass or intrahepatic biliary ductal dilatation is identified. There is normal hepatopedal flow in the portal vein. Ultrasound elastography of the liver was performed with 10 separate measurements of the liver parenchyma with the patient in the supine position. Measurements were obtained approximately 2 cm below Scotty's capsule and perpendicular to the capsule. The median shear wave velocity is 1.11 m/s. The interquartile range/median (IQR/median) is 0.10. Gallbladder and biliary tree: The gallbladder is unremarkable, without evidence of calculi, wall thickening, or pericholecystic fluid. There is no sonographic Beltran sign. The common bile duct is normal in caliber measuring 5 mm. Kidneys: The right kidney measures 12.7 cm in length. The left kidney measures 14.1 cm in length. There is a possible 3 mm right renal calculus, although this is only seen on sagittal images. The kidneys are otherwise unremarkable, without evidence of masses or hydronephrosis. There are no left renal calculi. Pancreas: The pancreatic head, neck, and body are unremarkable. The pancreatic tail is obscured by bowel gas. Spleen: The spleen is top normal in size, measuring 12.6 cm in length. Abdominal aorta and inferior vena cava: The visualized portions of the abdominal aorta and inferior vena cava are normal in caliber. There is no free fluid in the abdomen. US/US abdomen comp w elastography IMPRESSION: Hepatomegaly, hepatic steatosis, and probable cirrhosis. Borderline splenomegaly. The median shear wave velocity in the liver is 1.11 m/s, corresponding to a median liver stiffness of 3.7 kPa. The IQR/median value is 0.10. This is indicative of a quality data set. Findings are indicative of a normal elastography value with a low likelihood of severe fibrosis or cirrhosis. REFERENCE: Society of Radiologists in Ultrasound Liver Stiffness Thresholds (2020): LIVER STIFFNESS THRESHOLDS: *Shear wave velocity less than 1.3 m/s (Liver Stiffness equal or less than 5 kPa): High probability of being normal. *Shear wave velocity less than 1.7 m/s (Liver Stiffness less than 9 kPa): In the absence of other known clinical signs, rules out compensated advanced chronic liver disease. *Shear wave velocity between 1.7-2.1 m/s (Liver Stiffness 9-13 kPa): Suggestive of compensated advanced chronic liver disease but need further test for confirmation. *Shear wave velocity between 2.1-2.4 m/s (Liver Stiffness 13-17 kPa): Rules in compensated advanced chronic liver disease. *Shear wave velocity greater than 2.4 m/s (Liver Stiffness over 17 kPa): Suggestive of clinically significant portal hypertension. QUALITY OF DATA SET: *IQR/Median value equal or less than 0.30 implies a quality data set. *IQR/Median value over 0.30 implies a poor quality data set. SIGNIFICANT CHANGE FROM PRIOR EXAM: Significant change if liver stiffness measurement is 10% or greater from prior exam. OTHER CONSIDERATIONS: The stage of liver fibrosis may be overestimated in the setting of acute hepatitis, liver inflammation, elevated liver function tests, hepatic vascular congestion, obstructive cholestasis, non-fasting state, and infiltrative diseases such as amyloidosis and lymphoma. In some patients with NAFLD, the liver stiffness thresholds for compensated advanced chronic liver disease may be lower. In causes other than viral hepatitis and NAFLD, liver stiffness thresholds are not well established. Electronically signed by: Timmy Hester MD 08/23/2024 09:16 AM EDT Dictated By: Timmy Hester MD Signed By: <Electronically signed by Timmy Hester MD in OV> 08/23/24 0916 DD/ 0805 TD/TT: 08/23/24 0832 Filter Plant Supervisor: Procedure Note Donotuseinterpreter, Image - 08/23/[address] [address] Ultrasound Report Signed Patient: Kelsea Valdez#: M [id number] : 1965Acct:[id number] Age/Sex: 59 / FADM Date: 08/23/24 Loc: HO.US Attending Dr: Kamila Blackman MD Ordering Physician: Kamila Blackman MD Date of Service: 08/23/24 Procedure(s): US abdomen comp w elastography Accession Number(s): [id number] cc: Jaida Martin Bushra MD EXAMINATION: US ABDOMEN COMPLETE WITH LIVER ELASTOGRAPHY HISTORY: K76.0 - Fatty (change of) liver, not elsewhere classified TECHNIQUE: Real-time grayscale ultrasound imaging of the abdomen was performed and images were reviewed. COMPARISON: Comparison is made with the prior examination dated 12/28/2023. FINDINGS: Liver: The right lobe of the liver measures 20.8 cm in size. The left lobe of the liver measures 10.8 cm in size. The liver demonstrates increased echotexture, consistent with steatosis. The liver contour appears somewhat nodular, suggestive of cirrhosis. No focal mass or intrahepatic biliary ductal dilatation is identified. There is normal hepatopedal flow in the portal vein. Ultrasound elastography of the liver was performed with 10 separate measurements of the liver parenchyma with the patient in the supine position. Measurements were obtained approximately 2 cm below Scotty's capsule and perpendicular to the capsule. The median shear wave velocity is 1.11 m/s. The interquartile range/median (IQR/median) is 0.10. Gallbladder and biliary tree: The gallbladder is unremarkable, without evidence of calculi, wall thickening, or pericholecystic fluid. There is no sonographic Beltran sign. The common bile duct is normal in caliber measuring 5 mm. Kidneys: The right kidney measures 12.7 cm in length. The left kidney measures 14.1 cm in length. There is a possible 3 mm right renal calculus, although this is only seen on sagittal images. The kidneys are otherwise unremarkable, without evidence of masses or hydronephrosis. There are no left renal calculi. Pancreas: The pancreatic head, neck, and body are unremarkable. The pancreatic tail is obscured by bowel gas. Spleen: The spleen is top normal in size, measuring 12.6 cm in length. Abdominal aorta and inferior vena cava: The visualized portions of the abdominal aorta and inferior vena cava are normal in caliber. There is no free fluid in the abdomen. US/US abdomen comp w elastography IMPRESSION: Hepatomegaly, hepatic steatosis, and probable cirrhosis. Borderline splenomegaly. The median shear wave velocity in the liver is 1.11 m/s, corresponding to a median liver stiffness of 3.7 kPa. The IQR/median value is 0.10. This is indicative of a quality data set. Findings are indicative of a normal elastography value with a low likelihood of severe fibrosis or cirrhosis. REFERENCE: Society of Radiologists in Ultrasound Liver Stiffness Thresholds (2020): LIVER STIFFNESS THRESHOLDS: *Shear wave velocity less than 1.3 m/s (Liver Stiffness equal or less than 5 kPa): High probability of being normal. *Shear wave velocity less than 1.7 m/s (Liver Stiffness less than 9 kPa): In the absence of other known clinical signs, rules out compensated advanced chronic liver disease. *Shear wave velocity between 1.7-2.1 m/s (Liver Stiffness 9-13 kPa): Suggestive of compensated advanced chronic liver disease but need further test for confirmation. *Shear wave velocity between 2.1-2.4 m/s (Liver Stiffness 13-17 kPa): Rules in compensated advanced chronic liver disease. *Shear wave velocity greater than 2.4 m/s (Liver Stiffness over 17 kPa): Suggestive of clinically significant portal hypertension. QUALITY OF DATA SET: *IQR/Median value equal or less than 0.30 implies a quality data set. *IQR/Median value over 0.30 implies a poor quality data set. SIGNIFICANT CHANGE FROM PRIOR EXAM: Significant change if liver stiffness measurement is 10% or greater from prior exam. OTHER CONSIDERATIONS: The stage of liver fibrosis may be overestimated in the setting of acute hepatitis, liver inflammation, elevated liver function tests, hepatic vascular congestion, obstructive cholestasis, non-fasting state, and infiltrative diseases such as amyloidosis and lymphoma. In some patients with NAFLD, the liver stiffness thresholds for compensated advanced chronic liver disease may be lower. In causes other than viral hepatitis and NAFLD, liver stiffness thresholds are not well established. Electronically signed by: Timmy Hester MD 08/23/2024 09:16 AM EDT Dictated By: Timmy Hester MD Signed By: <Electronically signed by Timmy Hester MD in OV> 08/23/24 0916 DD/ 0805 TD/TT: 08/23/24 0832 Filter Plant Supervisor: us [facility] External Provider IMG US PROCEDURES Final Result * (ABNORMAL) POCT HGB A1C (08/15/2024 11:06 AM EDT) Hemoglobin A1C 7.2(A) 4.0 - 6.0 % QC Media Lot # [id number] Lot# Expiration Date Blood 08/15/2024 11:0 6 AM EDT Jaida Jurfelicita DO POINT OF CARE TEST ENTER/RICHARD T ORDERABLES Final Result * (ABNORMAL) POCT Glucose (08/15/2024 11:05 AM EDT) [facility] Glucose Blood, POC 308(A) 60 - 200 mg/dL QC Media Lot # [id number] Lot# Expiration Date Blood Capillary blood specimen / Unknown 08/15/2024 11:05 AM EDT [facility] POINT OF CARE TEST ENTER/RICHARD T ORDERABLES Final Result * Hepatitis Panel, General (07/21/2023 8:47 AM EDT) [facility] Hepatitis A IgM Nonreactive Nonreactive [facility] Comment:IgM antibodies to ACOSTA V not detected; does not exclude earlyacute or recovered HAV infection. ~Hepatitis B Surface Antibody REACTIVE Nonreactive [facility] Comment:REACTIVE: > 11.99 mI U/mL Hepatitis B Core Antibody Nonreactive Nonreactive [facility] Hepatitis C Antibody Nonreactive Nonreactive [facility] Comment:Antibodies to HCV no t detected; does not exclude early acuteHCV infection. Hepatitis B Surface Ag Negative Negative [facility] 07/21/2023 8:47 AM EDT 07/21/2023 8:47 AM EDT Generic External Data Provider LAB BLOOD ORDERAB LES Final Result [facility] [address] [place] [address] [phone] * HIV 1/2 ANTIGEN/ANTIBODY,FOURTH GENERATION W/RFL (03/12/2020 8:49 AM EST) Pathologist [facility] HIV-1/2 ANTIGEN AND ANTIBODIES, 4TH GENERATION W/ REFLEX NON-REACT NEFTALI NON-REACT NEFTALI [facility] Comment: HIV-1 antigen and HIV-1/HIV-2 antibodies were not detected. There is no laboratory evidence of HIV infection. PLEASE NOTE: This information has been disclosed to you from records whose confidentiality may be protected by state law. If your state requires such protection, then the state law prohibits you from making any further disclosure of the information without the specific written consent of the person to whom it pertains, or as otherwise permitted by law. A general authorization for the release of medical or other information is NOT sufficient for this purpose. For additional information please refer to http://education.[employer]/faq/EKA651 (This link is being provided for informational/ educational purposes only.) The performance of this assay has not been clinically validated in patients less than 2 years old. 03/12/2020 8:49 AM EST Jaida Martin DO LAB BLOOD ORDERABLES Final R esult [facility] [address] * Pap Smear (12/21/2019) [facility] Pap Negative for intraephithelial lesion or malignancy Negative for intraephithelial lesion or malignancy, Other HPV Undetected Historical Provider HEALTH MAINTENANCE Final Result * Colonoscopy (05/10/2018) Pathologist [facility] Colonoscopy Normal Normal Comment:Repeat in 5 years Historical Provider HEALTH MAINTENANCE Final Result from Last 3 Months or Most Recently Relevant to Health Maintenance [facility] AD[place] Care Teams Landscape Architect And Planner Relationship Specialty Start Date End Date Jaida Martin DO [address] [place] [phone] PCP - General Family Medicine 03/02/18 Pamela Andres Roof BolterTechnical Business Analyst 01/14/24
--- OUTSIDE RECORDS SUMMARY | 2024-11-10 09:33 | XMS_ITS | Encounter Summary ---
Author Organization [employer] Address [address] [facility] [address] [place] [address] Care Team Providers Care Gasoline Power Shovel Operator Name Role Phone VeronicaJaida Primary Care Provider [phone] Reason for Visit * Reason Onset Date Comments Appointment 10/22/2022 Encounter Details Date Type Department Care Team ([facility] st Contact Info) Description 10/22/2022 Telephone [facility] ADULT [facility] [address] [place], [place] [phone] Campbell Nguyễn DDS [address] [place], [place] [phone] Appointment Social History Tobacco Use Types Packs/Day [...] Description 11/15/2024 10:00 AM EDT Office Visit [facility] MEDICINE [address] [place] [address] Jaida Martin DO [address] [place] [address] 12/27/2024 1:00 PM EDT Clinical Support [facility] [address] [place] [address] 02/10/2025 10:00 AM EST Office Visit [facility] [address] [place] [address] Amanda Fernandez [address] [place] [address] documented as of this encounter Visit Diagnoses Not on filedocumented in this encounter Care Teams Gasoline Power Shovel Operator Relationship Specialty Start Date End Date Jaida Martin DO [address] [place], [place] [phone] PCP - General Family Medicine 03/02/18 Pamela Andres Line ProducerWhipped Topping Supervisor 01/14/24 documented as of this encounter
--- OUTSIDE RECORDS SUMMARY | 2024-11-10 09:33 | XMS_ITS | Encounter Summary ---
Author Organization [employer] Address [address] [facility] [address] [place] [address] Care Team Providers Care Dump Grader Name Role Phone VeronicaJaida Primary Care Provider [phone] Reason for Visit * Reason Comments Med Refill Encounter Details Date Type Department Care Team ([facility] st Contact Info) Description 02/03/2023 Refill [facility] [address] [place], [place] [phone] Lakshmi Jackson MD [address] [place], [place] [phone] Anemia, unspecified type Social History Tobacco Use [...] Description 11/15/2024 10:00 AM EDT Office Visit [facility] [address] [place] [phone] Jaida Martin DO [address] [place] [address] 12/27/2024 1:00 PM EDT Clinical Support [facility] [address] [place] [phone] 02/10/2025 10:00 AM EST Office Visit [facility] ADULT DENTAL [address] [place] [phone] Jim Amanda [address] [place] [address] documented as of this encounter Visit Diagnoses Diagnosis Anemia, unspecified type documented in this encounter Care Teams Dump Grader Relationship Specialty Start Date End Date Jaida Martin DO [address] [place] [phone] PCP - General Family Medicine 03/02/18 Pamela Andres Field SuperintendentMulti Share Program Coordinator 01/14/24 documented as of this encounter
== END 2024-11-10 09:05 | disposition home or self-care (01) ==
LOC: HO.ENCR 08:30
PROVIDERS: PCP Family Medicine; Visit Provider Internal Medicine Endocrinology, Diabetes & Metabolism
DX: E11.649 Type 2 diabetes mellitus with hypoglycemia without coma (principal)
CPT/HCPCS: 99214

== ENCOUNTER → 2024-11-10 08:29 | Outpatient (BNVA) | payer MEDICAID, SELFPAY | PROVIDERS: PCP Family Medicine; Visit Provider Internal Medicine Endocrinology, Diabetes & Metabolism | DX: E11.649 Type 2 diabetes mellitus with hypoglycemia without coma (principal); E11.21 Type 2 diabetes mellitus with diabetic nephropathy; E11.319 Type 2 diabetes mellitus with unspecified diabetic retinopathy without macular edema; K31.84 Gastroparesis; I10 Essential (primary) hypertension; E78.5 Hyperlipidemia, unspecified; Z79.4 Long term (current) use of insulin; Z79.84 Long term (current) use of oral hypoglycemic drugs | CPT/HCPCS: 82947; 99212 ==

== ENCOUNTER 2024-11-21 13:03 | Outpatient (AMB) | payer MEDICAID, SELFPAY ==
--- NOTE | 2024-11-21 13:15 | MHC.OFFVIS ---
Vital Signs 11/21/24 13:23 Height 5 ft 4 in Weight 226 lb BMI 38.8 Intake Visit Reasons: hemorrhoids Intake Note: Patient here for follow up hemorrhoids. Patient c/o: reports occasional rectal bleeding, reports no constipation. MILAGRO: 02-02-2023 Mobile Security Architect Required: Yes Mobile Security Architect Services: Mobile Security Architect Offered & Declined Accompanied by: Daughter Allergies No Known Allergies (No Known Allergies*) Allergy (Verified 11/21/24 13:25) Medication List - Last Reconciled 11/21/24 by Ramsey Reynolds MD acetaminophen ER 650 mg PO Q8H PRN albuterol sulfate 2.5 mg inhalation Q4H PRN aripiprazole 15 mg PO BEDTIME aspirin 81 mg PO DAILY benzonatate 200 mg PO TID PRN blood sugar diagnostic (FreeStyle Lite Strips) USE DIRECTED TO TEST BLOOD SUGAR FOUR TIMES DAILY blood-glucose meter (FreeStyle Lite Meter kit) As directed blood-glucose sensor (FreeStyle Ortiz 3 Plus Sensor device) USE DIRECTED blood-glucose sensor (FreeStyle Ortiz 3 Plus Sensor device) As directed change every 14 days blood-glucose,starch mangle tender,cont (FreeStyle Ortiz 3 Carpenter) Use daily As directed to monitor blood glucose carbidopa-levodopa 25-100 mg 1 tab PO BID carbidopa-levodopa 25-100 mg (Sinemet) 1 tab PO TID cholecalciferol (vitamin D3) 50 mcg PO DAILY clonazepam 1 mg PO TID PRN clonidine HCl 0.1 mg PO BEDTIME PRN docusate sodium 100 mg PO BID famotidine 40 mg PO DAILY ferrous sulfate 325 mg PO Q OTHER DAY flash glucose scanning reader ([employer]IB Ortiz 2 Carpenter) use daily As directed to monitor blood glucose readings fluticasone furoate 200 mcg/actuation (Arnuity Ellipta) 1 inh inhalation DAILY furosemide 20 mg PO QAM gabapentin 400 mg PO TID insulin regular hum U-500 conc (Humulin R U-500 (Conc) Insulin Kwikpen) 50 units before breakfast and 25 units before dinner subcutaneously 2 times a day; 30 days levothyroxine 1 tab PO DAILY@0600 lidocaine 5% 1 patch transdermal DAILY melatonin 5 - 10 mg PO BEDTIME PRN metformin 1,000 mg (2 x 500 mg) PO BID 90 days nortriptyline 75 mg PO BEDTIME nortriptyline 75 mg PO BEDTIME omeprazole 20 mg PO DAILY@0630 pen needle, diabetic (Pentips Pen Needle) USE DIRECTED TWICE DAILY propranolol 80 mg PO BID 90 days rosuvastatin (Crestor) 20 mg PO BEDTIME thiamine HCl (vitamin B1) 100 mg PO DAILY tiotropium bromide 2.5 mcg/actuation (Spiriva Respimat) 2 puffs inhalation DAILY 30 days tirzepatide (Mounjaro) 10 mg (0.5 mL) subcut QWEEK TRUEplus Lancets (lancets) 4 times a day NS valsartan 160 mg PO DAILY HPI HPI hemorrhoids: Details: She is here for her hemorrhoids. She is well known to me as she had undergone hemorrhoidectomy in 2022 for bleeding hemorrhoids She describes periodic bleeding from her hemorrhoids and states that she has of itching. She says she has occasional constipated She also is known for coarse tremors. [facility] Medical History (Updated 11/21/24 @ 13:44 by Ramsey Reynolds MD) Perianal pruritus Asthma HTN (hypertension) Hyperlipidemia 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, uncontrolled prison (current) use of insulin Diabetic nephropathy associated with type 2 diabetes mellitus 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 due to insulin Hypothyroidism Obstructive sleep apnea on CPAP Anemia NAFLD (nonalcoholic fatty liver disease) Sacroiliac joint dysfunction Coarse tremors Bleeding hemorrhoids Dental crowns present Respiratory failure Paranoia (psychosis) Stress incontinence Insomnia Anxiety Scoliosis of thoracolumbar spine Morbid obesity Chronic pain syndrome Inappropriate sinus tachycardia GERD (gastroesophageal reflux disease) Spondylosis of lumbar region without myelopathy or radiculopathy Gastroparesis Hemorrhoids Migraine Patellofemoral arthritis Patella-femoral syndrome Lumbar spondylosis Fibromyalgia Tubular adenoma Family history of colon cancer Vitamin D deficiency Genu valgum Palpitations Chest pain Surgical History Status post hemorrhoidectomy History of hemorrhoidectomy (~09/09/22) History of surgery Hx of section H/O esophagogastroduodenoscopy History of colonoscopy History of arthroscopy of right knee History of bilateral carpal tunnel release History of bladder surgery History of tubal ligation Hx of tonsillectomy Family History Father Stomach cancer Mother Heart disease HTN (hypertension) Diabetes Son No problems noted. Paternal Aunt Stomach cancer Sister Stomach cancer Sister Uterine cancer Social History Household Members: Family Household Members Other:: adult son Housing: Apartment Are you a primary daytime caregiver to a significant other at home: No Do you presently have visiting nurse or other home services: Yes (BAND TOP MAKER daily) Alcohol intake: never Patient Tobacco Use Status: Never used Tobacco Second Hand Smoke Exposure: No service: No Current occupational status: disabled Current occupation: lt handed Sexual orientation: Straight/Heterosexual Gender identity: Female Female Reproductive History Menstrual Age of Menarche: 17 Review of Systems Const Denies chills and Denies fever(s) Card Denies chest pain, Denies dyspnea and Denies dyspnea on exertion Resp Denies cough, Denies dyspnea and Denies dyspnea on exertion GI Denies hematochezia and Denies change in bowel habits Denies hematuria Musc Denies back pain and Denies limited range of motion Neuro Details: Has a obvious coarse tremors Denies focal weakness and Denies convulsions Psych Denies depression and Denies mood swings Physical Exam Vital Signs: BMI result Body Mass Index 38.8 Const Other: Walks with a cane, has coarse tremors General: comfortable and no acute distress Resp Effort & Inspection: normal respiratory effort GI Other: Rectal exam shows small residual external hemorrhoids without any perianal lesions, prolapsing of the mucosa Assessment & Plan Assessment & Plan (1) Perianal pruritus: Code(s): L29.0 - Pruritus ani Category: Medical Plan: She describes itching as well as periodic bleeding from her residual hemorrhoids. I told her that currently, these hemorrhoids are not significant in size. I would not recommend proceeding with a another hemorrhoidectomy. I am going to prescribe her Calmoseptine cream for her itching I will also send a prescription for Metamucil which will help achieve regularity with the bowel movements She can follow up with me on a p.r.n. basis. Coding Level of Care Code Est Pt Level 3 (43640) Diagnoses Perianal pruritus L29.0
[2024-11-21 13:23] VITALS: BMI 38.8
--- OUTSIDE RECORDS SUMMARY | 2024-11-21 15:28 | XMS_ITS | Clinical Summary ---
Author isaac
== END 2024-11-21 14:03 | disposition home or self-care (01) ==
LOC: HO.HGS 13:04
PROVIDERS: PCP Family Medicine; Visit Provider Surgery
DX: L29.0 Pruritus ani (principal)
CPT/HCPCS: 99213

== ENCOUNTER → 2024-11-21 13:03 | Outpatient (BNVA) | payer MEDICAID, SELFPAY | PROVIDERS: PCP Family Medicine; Visit Provider Surgery | DX: L29.0 Pruritus ani (principal) | CPT/HCPCS: 99212 ==

== ENCOUNTER 2024-12-07 08:29 | Outpatient (AMB) | payer MEDICAID, SELFPAY ==
--- NOTE | 2024-12-07 09:19 | MHC.OFFVIS ---
Vital Signs 12/07/24 09:27 Height 5 ft 4 in Weight 231 lb 7.766 oz BMI 39.7 BP 136/57 L Blood Pressure Location Lt brachial Position Sitting Pulse 75 Intake Visit Reasons: Fatty liver f/u r/s 10/06/24 & 06/27/24 Intake Note: Candace presents in the office as a follow up for her fatty liver. CC: states that she is waitin for her colonoscopy. Clay Hoister Required: Yes Allergies No Known Allergies (No Known Allergies*) Allergy (Verified 12/07/24 09:27) HPI Comments Details: 58-year-old female with past medical history of morbid obesity, type 2 diabetes, hypertension, Parkinson's disease, bilateral knee osteoarthritis, sleep apnea, who presents to the office for follow-up of fatty liver. Previously [facility] patient. Seen with the help of asl interpreter Emerald. Patient reports remote history of heavy alcohol use up to 10-12 beers a day. Stopped drinking this heavily more than 10 years ago. Denies any previous or current history of IV drug use. No family history of liver disease. Has BMI of 40 and other metabolic factors including type 2 diabetes, hypertension, hyperlipidemia. She is on GLP 1 as well as a statin. Previous documentation with diagnosis listed as cirrhosis secondary to fatty liver disease, however on review of her data, no obvious evidence of cirrhosis at this point. Fib 4 0.68. Has normal platelets and liver function. Imaging with enlarged liver instead of shrunken liver, albeit lobular in appearance. Previous workup so far with normal alpha-1 antitrypsin, ceruloplasmin and negative GRACIA screen. Negative hep serologies. 12/07/24: Here for follow up. Elastography reviewed- consistent with no fibrosis. Pt herself without any abd sx including abd pain, N,V. No pruritus. No change in abd girth. Sees endocrine for DM and obesity management. Weight loss appears to have plateaued. [facility] Medical History Perianal pruritus Asthma HTN (hypertension) Hyperlipidemia 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, uncontrolled intermediate (current) use of insulin Diabetic nephropathy associated with type 2 diabetes mellitus 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 due to insulin Hypothyroidism Obstructive sleep apnea on CPAP Anemia NAFLD (nonalcoholic fatty liver disease) Sacroiliac joint dysfunction Coarse tremors Bleeding hemorrhoids Dental crowns present Respiratory failure Paranoia (psychosis) Stress incontinence Insomnia Anxiety Scoliosis of thoracolumbar spine Morbid obesity Chronic pain syndrome Inappropriate sinus tachycardia GERD (gastroesophageal reflux disease) Spondylosis of lumbar region without myelopathy or radiculopathy Gastroparesis Hemorrhoids Migraine Patellofemoral arthritis Patella-femoral syndrome Lumbar spondylosis Fibromyalgia Tubular adenoma Family history of colon cancer Vitamin D deficiency Genu valgum Palpitations Chest pain Surgical History Status post hemorrhoidectomy History of hemorrhoidectomy (~09/09/22) History of surgery Hx of section H/O esophagogastroduodenoscopy History of colonoscopy History of arthroscopy of right knee History of bilateral carpal tunnel release History of bladder surgery History of tubal ligation Hx of tonsillectomy Family History Father Stomach cancer Mother Heart disease HTN (hypertension) Diabetes Son No problems noted. Paternal Aunt Stomach cancer Sister Stomach cancer Sister Uterine cancer Social History Household Members: Family Household Members Other:: adult son Housing: Apartment Are you a primary acute care nurse to a significant other at home: No Do you presently have visiting nurse or other home services: Yes (SERVICE DISMANTLER daily) Alcohol intake: never Patient Tobacco Use Status: Never used Tobacco Second Hand Smoke Exposure: No service: No Current occupational status: disabled Current occupation: lt handed Sexual orientation: Straight/Heterosexual Gender identity: Female Female Reproductive History Menstrual Age of Menarche: 17 Review of Systems Const All systems reviewed & are unremarkable except as noted in HPI and below Physical Exam Exam Exam: No apparent distress Nonicteric Abdomen soft, nondistended Alert and oriented x3, mild tremors Vital Signs: Last Vital Signs Pulse 75 12/07/24 09:27 BP 136/57 L 12/07/24 09:27 BMI result Body Mass Index 39.7 Results Reviewed Results Reviewed: Laboratory Tests 08/03/24 08:42 Liver Fibrosis Interp no fibrosis Necroinflam Score Cmmt no activity Assessment & Plan Assessment & Plan (1) MetALD: Code(s): K76.0 - Fatty (change of) liver, not elsewhere classified; F10.90 - Alcohol use, unspecified, uncomplicated Category: Medical (2) Fatty liver: Code(s): K76.0 - Fatty (change of) liver, not elsewhere classified Category: Medical (3) Hyperlipidemia: Code(s): E78.5 - Hyperlipidemia, unspecified Category: Medical (4) Obstructive sleep apnea on CPAP: Code(s): G47.33 - Obstructive sleep apnea (adult) (pediatric); Z99.89 - Dependence on other enabling machines and devices Category: Medical (5) HTN (hypertension): Code(s): I10 - Essential (primary) hypertension Category: Medical Qualifiers: Hypertension type: essential hypertension Qualified Code(s): I10 - Essential (primary) hypertension (6) 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, uncontrolled: Code(s): E11.65 - Type 2 diabetes mellitus with hyperglycemia Category: Medical Qualifiers: Coma presence: without coma Glycemic state: with hypoglycemia Qualified Code(s): E11.649 - Type 2 diabetes mellitus with hypoglycemia without coma (7) History of colon polyps: Code(s): Z86.010 - Personal history of colon polyps Category: Medical (8) History of alcohol use: Code(s): Z87.898 - Personal history of other specified conditions Category: Medical Plan Based on current assessment and likely has fatty liver disease from alcohol-related and nonalcohol related metabolic risk factors as outlined above. 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 Also reviewed control of metabolic risk factors to avoid furhter progression of liver disease. As aforementioned, labs and imaging without any evidence of advanced fibrosis or cirrhosis. Plan: -extensive counseling done for control of metabolic risk factors to prevent further progression of liver disease -patient counseled on at least 10% total body weight loss in the next 6 months -control of diabetes and hyperlipidemia as per PCP care -incorporate at least 150 minutes of moderate intensity exercise in a week -since age >50 with DM, remains at risk for progression to significant liver disease. Will favor LFTs at least once yearly. -repeat US in 6m from prior Hx of polyps (tubular adenoma in 2018) Due for colo. This will be scheduled. -Bisacodyl 10 BID x 2 days prior to colo -PEG prep instructions reviewed and handout provided in [place]an -pt aware to HOLD mounjaro x 1 dose Follow-up after colo Orders: Orders US abdomen complete 2 Months K76.0 - Fatty (change of) liver, not elsewhere classified Referrals GI Procedure Notification Z86.010 - Personal history of colon polyps Medications: New bisacodyl Start 2 days before colonoscopy 10 mg (2 x 5 mg) PO BID 8 tabs 0RF 2 days peg 3350-electrolytes 236-22.74-6.74 -5.86 gram (Golytely) as per split prep instructions, until fecal effluent is clear 240 mL PO Q10M 4,000 mL 0RF colonoscopy Coding Level of Care Code Est Pt Level 4 (54551) Complex EM visit Add On G2211 Diagnoses MetALD K76.0; F10.90 Fatty liver K76.0 Hyperlipidemia E78.5 Obstructive sleep apnea on CPAP G47.33; Z99.89 Essential hypertension I10 Hypertension type: essential hypertension Uncontrolled type 2 diabetes mellitus with hypoglycemia without coma E11.649 Coma presence: without coma Glycemic state: with hypoglycemia History of colon polyps Z86.010 History of alcohol use Z87.898
[2024-12-07 09:27] VITALS: BP 136/57; PULSE 75; BMI 39.7
== END 2024-12-07 10:39 | disposition home or self-care (01) ==
LOC: HO.HGI 08:30
PROVIDERS: PCP Family Medicine; Visit Provider Internal Medicine
DX: K76.0 Fatty (change of) liver, not elsewhere classified (principal); F10.90 Alcohol use, unspecified, uncomplicated; E78.5 Hyperlipidemia, unspecified; G47.33 Obstructive sleep apnea (adult) (pediatric); Z99.89 Dependence on other enabling machines and devices; I10 Essential (primary) hypertension; E11.649 Type 2 diabetes mellitus with hypoglycemia without coma; Z86.0100 Personal history of colon polyps, unspecified; Z87.898 Personal history of other specified conditions
CPT/HCPCS: 99214

== ENCOUNTER → 2024-12-07 08:29 | Outpatient (BNVA) | payer MEDICAID, SELFPAY | PROVIDERS: PCP Family Medicine; Visit Provider Internal Medicine | DX: K76.0 Fatty (change of) liver, not elsewhere classified (principal); E78.5 Hyperlipidemia, unspecified; G47.33 Obstructive sleep apnea (adult) (pediatric); Z99.89 Dependence on other enabling machines and devices; I10 Essential (primary) hypertension; E11.65 Type 2 diabetes mellitus with hyperglycemia; Z87.898 Personal history of other specified conditions; Z86.0100 Personal history of colon polyps, unspecified | CPT/HCPCS: 99212 ==

== ENCOUNTER 2025-02-07 07:43 | Day surgery (SDC) | payer MEDICAID, SELFPAY ==
--- OUTSIDE RECORDS SUMMARY | 2025-01-18 01:08 | XMS_ITS | Encounter Summary ---
Author Organization [employer] Address [address] [facility] [address] [place] [address] Care Team Providers Care Assistant Corporation Counsel Name Role Phone Jaida Martin DO Primary Care Provider Encounter Details Date Type Department Care Team (Late st Contact Info) Description 03/12/2022 Orders Only [facility] [address] [place] [address] Jaida Martin DO [address] [place], [place] [phone] Vitamin B12 deficiency (Primary Dx) Social History [...] Care Team (Late st Contact Info) Description 02/16/2025 9:30 AM EST Office Visit [facility] [address] [place] [address] Amanda Fernandez [address] [place] [address] 02/22/2025 11:00 AM EST Nurse Only [facility] [address] [place] [address] [place] [address] 04/19/2025 3:00 PM EST Office Visit [facility] [address] [place], [place] [phone] Soha Chappell, OD [address] [place] [address] documented as of this encounter Procedures Procedure [...] EST) Sodium 146(H) 135 - 145 mmol/L [facility] Potassium 3.0(L) 3.3 - 5.1 mmol/L [facility] Chloride 107 96 - 108 mmol/L [facility] Carbon Dioxide 30(H) 22 - 29 mmol/L [facility] Anion Gap 12 12 - 20 [facility] Urea Nitrogen (BUN) 9 9 - 16 mg/dL [facility] Creatinine, Serum 0.54 0.5 - 1.4 mg/dL [facility] Creatinine Clr Calc Pharmacy 148.7 [facility] Comment:Provided height and weight: 162.56 cm,115.666 kg.eGFR (calculated from the MDRD study equation) and eCrCl(calculated from the Cockcroft-Gault equation) are based ondifferent parameters and may not yield comparable results.If eCrCl result is absurd, please check patient'sheight/weight. Estimated Glomerular Filt Rate >60 [facility] Comment:NOTE: For -Am erican individuals, multiply the result by 1.210.Chronic Kidney Disease: Estimated GFR < 60 mL/min/1.62h8Rscthg Kidney Disease: Estimated GFR < 15 mL/min/1.73m2 Glucose 117(H) 60 - 115 mg/dL [facility] Calcium 9.1 8.4 - 10.2 mg/dL [facility] Bilirubin, Total 0.4 0.0 - 1.0 mg/dL [facility] Aspartate Amino Transferase 19 5 - 31 U/L [facility] Alanine Aminotransferase 10 0 - 31 U/L [facility] Total Protein 6.9 6.5 - 8.0 g/dL [facility] Albumin Level 3.8 3.5 - 5.0 g/dL [facility] Alkaline Phosphatase 126(H) 39 - 117 U/L [facility] 03/13/2022 7:42 AM EST 03/13/2022 7:44 AM EST us [facility] External Provider LAB BLO OD ORDERABLES Final Result Performing Organization Address City/State/[facility] Co de Phone Number [facility] [address] [place] [phone] * (ABNORMAL) CBC auto differential (03/13/2022 7:42 AM EST) White Blood Count 10.3 4.8 - 10.8 X10*3/uL [facility] Red Blood Count 4.24 4.20 - 5.50 X10*6/uL [facility] Hemoglobin 11.0(L) 12.0 - 16.0 g/dl [facility] Hematocrit 36.1(L) 37.0 - 47.0 % [facility] Mean Corpuscular Volume 85.1 80.0 - 98.0 fL [facility] Mean Corpuscular Hemoglobin 25.9(L) 27.0 - 33.0 pg [facility] Mean Corpuscular HGB Conc 30.5(L) 31.0 - 35.0 g/dl [facility] Red Cell Distribution Width 15.9 11.0 - 16.0 % [facility] Platelet Count 266 160 - 400 X10*3/uL [facility] Mean Platelet Volume 10.1 9.4 - 12.3 fL [facility] Neutrophils Percent Auto 61.8 45 - 73 % [facility] Imm Gran Pct Auto 0.6(H) 0.0 - 0.4 % [facility] Lymphocytes Percent Auto 28.1 20 - 40 % [facility] Monocytes Percent Auto 7.3 2 - 11 % [facility] Eosinophils Percent Auto 1.8 0 - 4 % [facility] Basophils Percent Auto 0.4 0 - 2 % [facility] NRBC Pct Auto 0.0 0.0 - 0.2 /100WBC [facility] Neutrophils Absolute Auto 6.4 2.0 - 8.3 x10*3/uL [facility] Imm Gran Abs Auto 0.06(H) 0.00 - 0.03 X10*3/uL [facility] Lymphocytes Absolute Auto 2.9 1.2 - 4.9 X10*3/uL [facility] Monocytes Absolute Auto 0.8 0.1 - 1.2 X10*3/uL [facility] Eosinophils Absolute Auto 0.2 0.0 - 0.4 X10*3/uL [facility] Basophils Absolute Auto 0.0 0.0 - 0.2 X10*3/uL [facility] NRBC Abs Auto 0.000 0.0 - 0.012 X10*3/uL [facility] 03/13/2022 7:42 AM EST 03/13/2022 7:44 AM EST us [facility] External Provider LAB BLO OD ORDERABLES Final Result [facility] [address] [place] [phone] * (ABNORMAL) GLUCOSE, WHOLE BLOOD (03/13/2022 5:16 AM EST) Glucose, Whole Blood 241(H) 60 - 115 mg/dL [facility] Comment:METER #: [id number] 1 03/13/2022 5:16 AM EST 03/13/2022 5:20 AM EST [facility] External Provider LAB BLO OD ORDERABLES Final Result [facility] [address] [place] [phone] documented in this encounter Visit Diagnoses Diagnosis Vitamin B12 deficiency- Primary Other B-complex deficiencies documented in this encounter Care Teams Assistant Corporation Counsel Relationship Specialty Start Date End Date Jaida Martin DO [address] [place] [phone] PCP - General Family Medicine 03/02/18 Pamela Andres Chief Port DirectorTemplate Checker 01/14/24 documented as of this encounter
--- OUTSIDE RECORDS SUMMARY | 2025-01-18 01:08 | XMS_ITS | Encounter Summary ---
Author Organization [employer] Address [address] [facility] [address] [place] [address] Care Team Providers Care Cdl Driver Name Role Phone AlejandraJaida mims Primary Care Provider [phone] Encounter Details Date Type Department Care Team (Late Contact Info) Description 03/14/2022 Orders Only [facility] [address] [place], [place] [phone] Stephanie Apodaca LPN Social History Tobacco Use [...] Department Care Team (Late Contact Info) Description 02/16/2025 9:30 AM EST Office Visit [facility] [address] [place], [place] [phone] Jc Fernandezaris [address] [place] [address] 02/22/2025 11:00 AM EST Nurse Only [facility] [address] [place], [place] [phone] 04/19/2025 3:00 PM EST Office Visit [facility] [address] [place] [phone] Soha Chappell, OD [address] [place] [address] documented as of this encounter Visit Diagnoses Not on filedocumented in this encounter Care Teams Cdl Driver Relationship Specialty Start Date End Date Jaida Martin DO [address] [place] [address] PCP - General Family Medicine 03/02/18 Pamela Andres Ticket Sales SupervisorVideo Engineer 01/14/24 documented as of this encounter
--- OUTSIDE RECORDS SUMMARY | 2025-01-18 01:08 | XMS_ITS | Encounter Summary ---
Author Organization [employer] Address [address] [facility] [address] [place] [address] Care Team Providers Care Sample Steamer Name Role Phone Jaida Martin DO Primary Care Provider Reason for Visit * Reason Onset Date Comments Nurse Triage 12/22/2023 Encounter Details Date Type Department Care Team ([facility] Contact Info) Description 12/22/2023 Telephone [facility] [address] [place], [place] [phone] Jaida Martin DO [address] [place] [address] Nurse Triage Social History Tobacco Use Types [...] 12/22/2023 4:50 PM EDT Triage call [place] [id number] Pt reports episode of shortness of breath while picking up object. BP today is 134/86. Pt is takingBP medication Diovan as prescribe. Pt reports no other symptoms at time of call and SOB was momentary. Pt is offered to come to [facility] but, reports no transportation. TSK [...] Reason: Caller denied all higher acuity questions Kazakh Speaker (accepted bezel cutter) documented in this encounter Plan of Treatment Upcoming Encounters Date Type Department Care Team (Late st Contact Info) Description 02/16/2025 9:30 AM EST Office Visit [facility] [address] [place], [place] [phone] Jim, Amanda [address] [place] [address] 02/22/2025 11:00 AM EST Nurse Only [facility] [address] [place] [address] 04/19/2025 3:00 PM EST Office Visit [facility] [address] [place], [place] [phone] Ta, Soha, OD [address] [place] [address] documented as of this encounter Visit Diagnoses Not on filedocumented in this encounter Additional Health Concerns Assessment Noted Time PHQ-9 Depression Total Score: 4 08/17/19 24 12:18 PM EDT documented as of this encounter Care Teams Sample Steamer Relationship Specialty Start Date End Date Jaida Martin DO [address] [place] [address] PCP - General Family Medicine 03/02/18 Pamela Andres Director Of PlanningWort Extractor 01/14/24 documented as of this encounter
--- OUTSIDE RECORDS SUMMARY | 2025-01-18 01:08 | XMS_ITS | Encounter Summary ---
Author Organization [employer] Address [address] [place] [address] 7 [place] [address] Care Team Providers Care Transit Coach Operator Name Role Phone Jaida Martin DO Primary Care Provider Reason for Visit * Reason Onset Date Comments requesting a call back 03/07/2022 Encounter Details Date Type Department Care Team (Late st Contact Info) Description 03/07/2022 Telephone [facility] [address] [place] [address] Jaida Martin DO [address] [place] [address] requesting a call back Social History Tobacco [...] a call back Please contact pt at [phone] documented in this encounter Plan of Treatment Upcoming Encounters Date Type Department Care Team (Late st Contact Info) Description 02/16/2025 9:30 AM EST Office Visit [facility] [address] [place] [address] Jc Fernandezaris [address] [place] [address] 02/22/2025 11:00 AM EST Nurse Only [facility] [address] [place] [address] 04/19/2025 3:00 PM EST Office Visit [facility] [address] [place], [place] [phone] Soha Chappell, OD [address] [place] [address] documented as of this encounter Visit Diagnoses Not on filedocumented in this encounter Care Teams Transit Coach Operator Relationship Specialty Start Date End Date Jaida Martin DO [address] [place] [address] PCP - General Family Medicine 03/02/18 Pamela Andres Tour AgentOrthodontic Laboratory Technician 01/14/24 documented as of this encounter
--- OUTSIDE RECORDS SUMMARY | 2025-01-18 01:09 | XMS_ITS | Encounter Summary ---
Author Organization [employer] Address [address] [facility] [address] [place] [address] Care Team Providers Care Pin Drafting Machine Operator Name Role Phone Jaida Martin DO Primary Care Provider [phone] Reason for Visit * Reason Comments Med Refill Encounter Details Date Type Department Care Team ([facility] st Contact Info) Description 09/27/2024 Refill [facility] [address] [place], [place] [phone] Jaida Martin DO [address] [place], [place] [phone] Anemia, unspecified type Social History Tobacco Use [...] Description 02/16/2025 9:30 AM EST Office Visit [facility] [address] [place] [address] Jim, Amanda [address] [place] [address] 02/22/2025 11:00 AM EST Nurse Only [facility] [address] [place] [address] 04/19/2025 3:00 PM EST Office Visit [facility] [address] [place] [address] Ta, Soha, OD [address] [place] [address] documented as of this encounter Visit Diagnoses Diagnosis Anemia, unspecified type documented in this encounter Additional Health Concerns Assessment Noted Time PHQ-9 Depression Total Score: 0 01/22/20 24 10:22 AM EST documented as of this encounter Care Teams Pin Drafting Machine Operator Relationship Specialty Start Date End Date Jaida Martin DO [address] [place] [address] PCP - General Family Medicine 03/02/18 Pamela Andres Wash DrillerPhysician'S Aide 01/14/24 documented as of this encounter
--- OUTSIDE RECORDS SUMMARY | 2025-01-18 01:09 | XMS_ITS | Encounter Summary ---
Author Organization [employer] Address [address] [facility] 7t [place] [address] Care Team Providers Care Burrer Marker Axle Name Role Phone Jaida Martin DO Primary Care Provider Reason for Visit * Reason Onset Date Comments Referral 05/05/2022 Encounter Details Date Type Department Care Team ([facility] st Contact Info) Description 05/05/2022 Telephone [facility] [address] [place], [place] [phone] Jaida Martin DO [address] [place] [address] Referral Social History Tobacco Use Types Packs/Day [...] AM EST Noted pt. Last seen by [facility] April 2021 for gastroparesis and acid reflux. TC placed to pt. And reports she attempted to schedule f/up appt. But was advised they need a new R number to approve more visits. Please send R number to [facility], thank you! * Telephone Encounter - Sugar Vazquez - 05/05/2022 9:30 AM EST Tc from pt requesting a referral Location : [facility] Specialty: Gastrology Date and time : N/A documented in this encounter Plan of Treatment Upcoming Encounters Date Type Department Care Team (Late st Contact Info) Description 02/16/2025 9:30 AM EST Office Visit [facility] [address] [place] [address] Jim, Amanda [address] [place] [address] 02/22/2025 11:00 AM EST Nurse Only [facility] [address] [place] [address] 04/19/2025 3:00 PM EST Office Visit [facility] [address] [place] [address] Ta, Soha, OD [address] [place] [address] documented as of this encounter Visit Diagnoses Not on filedocumented in this encounter Care Teams Burrer Marker Axle Relationship Specialty Start Date End Date Jaida Martin DO [address] [place] [address] PCP - General Family Medicine 03/02/18 Pamela Andres FaceterProduction Dispatcher 01/14/24 documented as of this encounter
--- OUTSIDE RECORDS SUMMARY | 2025-01-18 01:09 | XMS_ITS | Clinical Summary ---
Author Organization [employer] Address [address] [place] [address] Care Team Providers Care Casing Crew Name Role Phone VeronicaJaida Primary Care Provider [phone] Allergies No known active allergies Medications * [...] times daily. 2021 Active TRUEplus Lancets [facility] TEST BLOOD SUGAR 4 TIMES A DAY [...] PUFFS BY MOUTH EVERY DAY 2023 Active Diclofenac Sodium 1 % gel Please [...] by mouth Once per day. 2023 Active Mounjaro 10 MG/0.5ML solution auto-injector INJECT ONE PEN (=10MG) SUBCUTANEOUSLY ONCE A WEEK DIRECTED 2023 Active metFORMIN (Glucophage) 500 MG tabletIndications: Type 2 diabetes mellitus with other specified complication, with long-term current use of insulin (HCC) TAKE 2 TABLETS BY MOUTH TWICE DAILY IN THE MORNING AND EVENING 360 tablet 3 2024 Active Continuous Glucose Trainer (FreeStyle Ortiz 3 [place]) device use as directed 2023 Active insulin NPH, Isophane, (HumuLIN N,NovoLIN N) 100 UNIT/ML injection Inject 50 Units under the skin every 12 (twelve) hours. Active albuterol (2.5 MG/3ML) 0.083% nebulizer solution INHALE 1 AMPULE USING A NEBULIZER EVERY 6 HOURS NEEDED FOR WHEEZING 90 mL 1 2024 Active Arnuity Ellipta 200 MCG/ACT inhaler INHALE 1 PUFF BY MOUTH EVERY DAY AT THE SAME TIME RINSE MOUTH AFTER USING. DO NOT SWALLOW 30 each 2024 Active docusate sodium (Colace) 100 MG capsuleIndications :Chronic constipation TAKE 1 CAPSULE BY MOUTH TWICE DAILY IN THE MORNING AND IN THE EVENING 180 capsule 1 2024 Active cyanocobalamin (Vitamin B-12) 1000 MCG/ML injectionIndicatio ns:B12 deficiency INJECT 1 ML INTRAMUSCULARLY EVERY OTHER MONTH 2 mL 1 2024 Active Ferrous Sulfate (iron) 325 (65 Fe) MG tabletIndications: Anemia, unspecified type TAKE 1 TABLET BY MOUTH EVERY OTHER DAY IN THE MORNING 45 tablet 1 2024 Active pregabalin (Lyrica) 50 MG capsuleIndications :Diabetic polyneuropathy associated with type 2 diabetes mellitus (HCC) Take 1 capsule (50 mg) by mouth 3 times daily. 90 capsule 1 2024 Active valsartan (Diovan) 160 MG tabletIndications: Hypertension, unspecified type TAKE 1 TABLET BY MOUTH EVERY MORNING 90 tablet 1 2024 Active levothyroxine (Synthroid, Levoxyl) 125 MCG tabletIndications: Hypothyroidism, unspecified type TAKE 1 TABLET BY MOUTH EVERY MORNING 90 tablet 3 2024 Active thiamine (Vitamin B-1) 100 MG tabletIndications: Anemia, unspecified type TAKE 1 TABLET BY MOUTH EVERY MORNING 90 tablet 3 2024 Active D3 Super Strength 50 MCG (2000 UT) capsuleIndications :Vitamin D deficiency TAKE 1 CAPSULE BY MOUTH EVERY MORNING 90 capsule 3 2024 Active aspirin (Aspirin Low Dose) 81 MG EC tabletIndications: Hyperlipidemia, unspecified hyperlipidemia type TAKE 1 TABLET BY MOUTH EVERY MORNING 90 tablet 3 2024 Active lidocaine (Lidoderm) 5 % patch APPLY 1 TO 2 PATCHES TOPICALLY TO AFFECTED AREA(S). LEAVE ON FOR 12 HOURS, OFF FOR 12 HOURS. USE NEEDED FOR MILD PAIN. 60 patch 3 2024 Active rosuvastatin (Crestor) 20 MG tabletIndications: Hyperlipidemia, unspecified hyperlipidemia type TAKE 1 TABLET BY MOUTH AT BEDTIME 90 tablet 1 2024 Active omeprazole (PriLOSEC) [address] capsuleIndications :Chronic gastroesophageal reflux disease TAKE 1 CAPSULE BY MOUTH EVERY MORNING BEFORE A MEAL 90 capsule 1 2024 Active rosuvastatin (Crestor) 20 MG tabletIndications: Hyperlipidemia, unspecified hyperlipidemia type TAKE 1 TABLET BY MOUTH AT BEDTIME 90 tablet 1 01/12 Discontinued omeprazole (PriLOSEC) [address] capsuleIndications :Chronic gastroesophageal reflux disease TAKE 1 CAPSULE BY MOUTH EVERY MORNING BEFORE A MEAL 90 capsule 1 01/13 Discontinued( Reorder (will not trigger notification to Pharmacy)) Hospital, Clinic, or Other Facility Administered Medication Ordered Dose Route Frequency Start Date End Date Status cyanocobalamin (Vitamin B-12) injection 1,000 mcgIndications:B12 deficiency 1000 mcg IM Every 8 weeks 02/15/2024 03/13/2025 Active Active Problems Problem Noted Date Diagnosed Date Dental caries on smooth surface limited to ename l 08/03/2024 Xerostomia 08/01/2024 Fractured dental cheondoism with loss of materi al 06/24/2023 Missing teeth, acquired 04/17/2023 Dental plaque 04/17/2023 History of COVID-19 04/13/2023 Essential tremor 01/28/2023 Intention tremor 01/28/2023 Parkinsonism (CMS/HCC) 01/28/2023 Vitamin D deficiency 01/28/2023 S/P hemorrhoidectomy [...] ambulance. [facility] with EMS staff Taken to [facility] for SOB, weakness Will monitor for ED documents. F/u after discharge Fatty liver 06/17/2022 Mild persistent asthma 06/17/2022 Fibromyalgia 06/17/2022 Chronic bilateral low back pain 06/17/2022 Urinary incontinence 06/17/2022 BMI 40.0-44.9, adult (CMS/HCC) 06/17/2022 Dental caries 06/02/2022 Chronic constipation 05/27/2022 [...] URI + Prednisone use Mounjaro Rx by barber instructor yesterday is on backorder for at least [...] glucose gel + glucagon Pt seen by export administrator at [facility] office this yr [...] Encounters Date Type Department Care Team Description 01/13/2025 Refill [facility] MEDICINE [address] [place] [address] Jaida Martin DO Chronic gastroesophageal reflux disease 01/13/2025 Refill [facility] MEDICINE [address] [place] [address] Jaida Martin DO Chronic gastroesophageal reflux disease 01/12/2025 Refill [facility] MEDICINE [address] [place] [address] Jaida Martin DO Hyperlipidemia, unspecified hyperlipidemia type 12/27/2024 1:00 PM EDT Nurse Only [facility] MEDICINE [address] [place] [phone] Tara Hartman, GIL Vitamin B12 deficiency [E53.8] 12/27/2024 Travel 12/15/2024 Refill [facility]BILE [facility]INE CLINIC [address] [place] [phone] Jaida Martin DO Hyperlipidemia, unspecified hyperlipidemia type 12/14/2024 Refill [facility] [address] [place] [phone] Jaida Martin DO Hypothyroidism, unspecified type; Anemia, unspecified type; Vitamin D deficiency; Hyperlipidemia, unspecified hyperlipidemia type 11/17/2024 [place]ill [place] [address] Jaida Martin DO Hypertension, unspecified type 11/15/2024 10:00 AM EDT Office Visit [facility] [place] [address] Jaida Martin DO Type 2 diabetes mellitus with microalbuminuria, with long-term current use of insulin (CMS/HCC) (Primary Dx); Essential hypertension; Other hyperlipidemia; Major depression, recurrent, chronic (CMS/HCC); Fatty liver; Mild persistent asthma without complication; Obstructive sleep apnea; Mixed stress and urge urinary incontinence; Fibromyalgia; Chronic bilateral low back pain, unspecified whether sciatica present; Chronic pain of both knees; Peripheral polyneuropathy; Tremor; Healthcare maintenance; Dietary counseling; Exercise counseling 11/15/2024 Travel 11/14/2024 Telephone [facility] [place] [address] Jaida Martin DO Chart Prep 11/10/2024 Orders Only GENERIC EXTERNAL DATA DEPARTMENT Provider, Generic External Data 11/07/2024 Patient Outreach [facility] [place] [address] Jaida Martin DO Pre-visit Planning (SDOH screening negative and tobacco screening negative) 10/25/2024 Telephone [facility] [place] [address] Jaida Martin DO Medication Question 10/25/2024 Travel 10/25/2024 Telephone [facility] [place] [address] Jaida Martin DO Appointment Request 10/24/2024 10:00 AM EDT Clinical Support [facility] [place] [address] Blank Blank, RN Vitamin B12 deficiency 10/24/2024 Refill [facility] [place] [address] Blank Blank, RN Other polyneuropathy; Diabetic polyneuropathy associated with type 2 diabetes mellitus (CMS/HCC) 10/24/2024 Travel 10/18/2024 Orders Only [facility] [place] [address] Jaida Martin DO from Last 3 Months Immunizations Immunization Administration [...] Sign Reading Time Taken Comments Blood Pressure 140/78 11/15/2024 10:11 AM EDT Pulse 79 11/15/2024 10:11 AM EDT Temperature 36.2 C (97.1 F) 11/15/2024 10:11 AM EDT Respiratory Rate 20 11/15/2024 10:11 AM EDT Oxygen Saturation 98% 11/15/2024 10:11 AM EDT Inhaled Oxygen Concentration - - Weight 103 kg (228 lb) 11/15/2024 10:11 AM EDT Height 162.6 cm (5' 4 ) 11/15/2024 10:11 AM EDT Body Mass Index 39.14 11/15/2024 10:11 AM EDT Plan of Treatment Upcoming Encounters Date Type Department Care Team (Late st Contact Info) Description 02/16/2025 9:30 AM EST Office Visit [facility] ADULT DENTAL [address] [place] [address] Jim Amanda [address] [place] [address] 02/22/2025 11:00 AM EST Nurse Only [facility] MEDICINE [address] [place] [address] 04/19/2025 3:00 PM EST Office Visit [facility] OPTOMETRY [address] [place] [address] Ta, Soha, OD [address] [place] [address] Health Maintenance Due Date Last Done Comments CT Colonography 1967 FIT DNA/Cologuard 1967 FIT 1967 FOBT 1965 Sigmoidoscopy 1965 RSV Patients and Patients Aged 60 years or older (1 - Risk 50-74 years 1-dose series) 07/10/2017 Pap Smear 12/20/2022 12/21/2019 Colonoscopy 05/11/2023 05/10/2018 Colorectal Cancer Screening 05/11/2023 Diabetes: Foot Exam 05/28/2024 05/29/2023, 05/29/2023, 05/29/2023, Additional history exists COVID-19 Vaccine ( season) 2024 01/22/2024, 12/12/2021, 07/30/2021, Additional history exists Influenza Vaccine (#1) 2024 , 11/18/2022, 11/21/2021, Additional history exists Cervical Cancer Screening 12/20/2024 HPV/Cotest 12/20/2024 12/21/2019 Alcohol/Substance Use Screening 01/21/2025 01/22/2024 Depression Screening 01/21/2025 01/22/2024, 01/22/20 24 Dental Oral Exam 02/01/2025 08/01/2024, , 04/22/2022 Dental Prophylaxis 02/01/2025 08/01/2024, 0 04/17/2023, 04/22/2022 Diabetes: Hemoglobin A1C 05/15/2025 025, 10/24/2024, 08/15/2024, Additional history exists Dental X-Ray: Bitewings 08/02/2025 08/02/19 25, 04/17/2023, 04/22/2022 Disability Screening 08/15/2025 08/15/2024 Lipid Panel 10/24/2025 10/24/2024, 03/03, 03/30/2024, Additional history exists SDOH Screening 11/07/2025 11/07/2024 Tobacco Screening 11/15/2025 11/15/2024 Eye Exam 03/17/2026 03/17/2024, 03/02, 03/17/2024, Additional history exists Mammogram 10/18/2026 10/18/2024, 08/01, 07/29/2022, Additional history exists Dental X-Ray: Full Mouth 08/03/2027 08/01/2024, 05/31 DTaP/Tdap/Td Vaccines (4 - Td or Tdap) 11/15/2030 11/15/2020, 05/31/2009, 04/23/2009, Additional history exists Hepatitis A Vaccines Completed 06/12/2008, 03/18/2007, 05/21/2006 Hepatitis B Vaccines Completed 07/14/2008, 06/12/2008, 10/28/2006, Additional history exists HIV Screening Completed 03/12/2020 Zoster Vaccines Completed 09/11/2020, 07/05/2020 Pneumococcal Vaccine: 50+ Years Completed 11/21/2021, 03/21/2018, 10/17/2012, Additional history exists Hepatitis C Screening Completed 07/21/2023 , 10/25/2020, 03/12/2020 HIB Vaccines Aged Out No longer eligi [...] on patient's age to complete this topic Goals Goal Patient Goal Type Associated Problems Recent Progress Patient-Stated? Author Help patients manage their type 2 diabetes Care Plan Help patients manage their type 2 diabetes No Ray Pearce PharmD Weekly blood pressure task Care Plan Weekly blood pressure task No Ray Pearce PharmD Help patients manage their type 2 diabetes Care Plan Help patients manage their type 2 diabetes No Ray Pearce PharmD Patient has chronic kidney disease Care Plan Patient has chronic kidney disease No Ray Pearce PharmD Weekly blood pressure task Care Plan Weekly blood pressure task No Ray Pearce PharmD Patient has chronic kidney disease Care Plan Patient has chronic kidney disease No Ray Pearce PharmD Procedures Procedure Name Priority Date/Time Associated Diagnosis Comments POCT GLYCATED HEMOGLOBIN, TOTAL Routine 11/15/2024 10:36 AM EDT Type 2 diabetes mellitus with microalbuminuria, with long-term current use of insulin ([facility]) POCT GLUCOSE Routine 11/15/2024 10:31 AM EDT Type 2 diabetes mellitus with microalbuminuria, with long-term current use of insulin ([facility]) GLUCOSE, WHOLE BLOOD Routine 11/10/2024 8:54 AM EDT IRON AND TOTAL IRON BINDING CAPACITY Routine 10/24/2024 9:18 AM EDT Type 2 diabetes mellitus with microalbuminuria, with long-term current use of insulin ([facility]) FERRITIN Routine 10/24/2024 9:18 AM EDT Type 2 diabetes mellitus with microalbuminuria, with long-term current use of insulin ([facility]) VITAMIN B12/FOLATE, SERUM PANEL Routine 10/24/2024 9:18 [...] with long-term current use of insulin (CMS/HCC) BI MAMMOGRAM SCREENING TOMOSYNTHESIS BILATERAL Routine 10/18/2024 11:35 AM EDT PROPHYLAXIS - ADULT Routine 08/01/2024 [...] Relevant to Health Maintenance Results * (ABNORMAL) POCT Hgb A1c (11/15/2024 10:36 AM EDT) Hemoglobin A1C 6.9(A) 4.0 - 5.7 % QC Media Lot # [id number] Lot# Expiration Date Blood 11/15/2024 10:3 6 AM EDT Jaida Martin DO POINT OF CARE TEST ENTER/RICHARD T ORDERABLES Final Result * POCT Glucose (11/15/2024 10:31 AM EDT) Glucose Blood, POC 179 60 - 200 mg/dL QC Media Lot # [id number] Lot# Expiration Date Blood Capillary blood specimen / Unknown 11/15/2024 10:31 AM EDT Jaida Martin DO POINT OF CARE TEST ENTER/RICHARD T ORDERABLES Final Result * (ABNORMAL) Glucose, Whole Blood (11/10/2024 8:54 AM EDT) Glucose, Whole Blood 186(H) 60 - 115 mg/dL [facility] Comment:METER #: [id number] 0Testing performed in the Endocrinology Department [address] , [address], [place]. 11/10/2024 8:54 AM EDT 11/10/2024 8:58 AM EDT us Generic External Data Provider LAB BLOOD ORDERAB LES Final Result [facility] [address] [place] [phone] [phone] * Vitamin D, 25-Hydroxy, Total, Immunoassay (10/24/2024 9:18 AM EDT) Vitamin D 25-OH Total 31.8 >30 ng/mL [facility] Comment: Health Based Reference Values*< 20 ng/mL Zsiermvwu51-59 ng/mL Insufficient> 30 ng/mL Sufficient*Jimmy NEWMAN. N [...] EDT 10/24/2024 11:03 AM EDT Jaida Robertsluisaradha LAB BLOOD ORDERABLES Final R esult Performing Organization Address City/[facility]/ZIP Co de Phone Number [facility] [address] [place] [phone] * Vitamin B12 (Cobalamin) and Folate Panel, Serum (10/24/2024 9:18 AM EDT) Vitamin B12 330 200 - 900 pg/mL [facility] Comment:NORMAL 200-900 PG/ML INDETERMINATE 160-199 PG/ML DEFICIENT < 160 PG/ML Folate 4.7 > or = 4.0 ng/mL [facility] Comment:Reference Values:> o r = 4.0 ng/mL< 4.0 ng/mL suggests folate deficiency Methotrexate, aminopterin and folinic acid(leucovorin) are chemotherapeutic agents whose molecularstructures are similar to folate; therefore, the Architectfolate assay cannot be used for patients using these drugs. Blood 10/24/2024 9:18 AM EDT 10/24/2024 11:03 AM EDT Jaida Robertsluisaradha LAB BLOOD ORDERABLES Final R esult Performing Organization Address [facility] Co de Phone Number [facility] [address] [place] [phone] * Albumin, Random Urine W/Creatinine (10/24/2024 9:18 AM EDT) Creatinine, Urine 125.62 mg/dL [facility] Microalbumin Urine 16.0 mg/L [facility] Microalbum Creatinine Ratio Ur 12.7 <30 ug/mg cr [facility] Comment:Albumin/Creatinine R atio Reference Ranges: Normal: < 30 ug/mg creatinine Microalbuminuria: 30 - 300 ug/mg creatinineClinical Albuminuria: > 300 ug/mg creatinine Urine (Urine, Random) 10/24/2024 9:18 AM EDT 10/24/2024 11:00 AM EDT Jaida Martin DO LAB URINE ORDERABLES Final R esult Performing Organization Address [facility] Co de Phone Number [facility] [address] [place] [phone] * Iron And Total Iron Binding Capacity (10/24/2024 9:18 AM EDT) Pathologist [facility] Iron 52 30 - 160 mcg/dL [facility] Total Iron Binding Capacity 279 228 - 428 mcg/dL [facility] Percent Iron Saturation 19 15 - 50 % [facility] Unsaturated Iron Binding 227 ug/dL [facility] Blood Venous blood specimen / Unknown 10/24/2024 9:18 AM EDT 10/24/2024 11:03 AM EDT Jaida Martin LAB BLOOD ORDERABLES Final R esult Performing Organization Address [facility] de Phone Number [facility] [address] [place] [phone] * Alpha-Fetoprotein, Tumor Marker (10/24/2024 9:18 AM EDT) Pathologist [facility] Alpha Fetoprotein 1.7 ng/mL [facility] Comment:Reference Range: <6. 1The use of AFP as a tumor marker in females is not recommended.This test was performed using the Torin Coulterchemiluminescent method. Values obtained fromdifferent assay methods cannot be usedinterchangeably. AFP levels, regardless ofvalue, should not be interpreted as absoluteevidence of the presence or absence of disease.THIS TEST WAS PERFORMED AT:[employer] [place] [phone] BRASWELL MD Blood Venous blood specimen / Unknown 10/24/2024 9:18 AM EDT 10/24/2024 11:03 AM EDT Result [facility] Jaida Monkradha LAB BLOOD ORDERABLES Final R esult [facility] [address] [place] [phone] * (ABNORMAL) CBC (10/24/2024 9:18 AM EDT) White Blood Count 9.8 4.8 - 10.8 X10*3/uL [facility] Red Blood Count 4.63 4.20 - 5.50 X10*6/uL [facility] Hemoglobin 12.0 12.0 - 16.0 g/dl [facility] Hematocrit 39.2 37.0 - 47.0 % [facility] Mean Corpuscular Volume 84.7 80.0 - 98.0 fL [facility] Mean Corpuscular Hemoglobin 25.9(L) 27.0 - 33.0 pg [facility] Mean Corpuscular HGB Conc 30.6(L) 31.0 - 35.0 g/dl [facility] Red Cell Distribution Width 15.3 11.0 - 16.0 % [facility] Platelet Count 336 160 - 400 X10*3/uL [facility] Mean Platelet Volume 11.1 9.4 - 12.3 fL [facility] NRBC Pct Auto 0.0 0.0 - 0.2 /100WBC [facility] NRBC Abs Auto 0.000 0.0 - 0.012 X10*3/uL [facility] Blood Venous blood specimen / Unknown 10/24/2024 9:18 AM EDT 10/24/2024 11:03 AM EDT us Jaida Martin DO LAB BLOOD ORDERABLES Final R esult [facility] [address] [place] [phone] * TSH (10/24/2024 9:18 AM EDT) Thyroid Stimulating Hormone 2.81 0.32 - 4.0 uIU/mL [facility] Comment:Note: A sustained TS H level above 2.5 uIU/mL may warrant further investigation. TSH 3rd Generation ([facility]) Blood Venous blood specimen / Unknown 10/24/2024 9:18 AM EDT 10/24/2024 11:03 AM EDT Jaida Martin DO LAB BLOOD ORDERABLES Final R esult Performing Organization Address City/[facility]/ZIP Co de Phone Number [facility] [address] [place] [phone] * T4, Free (10/24/2024 9:18 AM EDT) Free T4 (Free Thyroxine) 1.22 0.71 - 1.85 ng/dL [facility] Blood Venous blood specimen / Unknown 10/24/2024 9:18 AM EDT 10/24/2024 11:03 AM EDT Jaida Martin DO LAB BLOOD ORDERABLES Final R esult Performing Organization Address [facility] Co de Phone Number [facility] [address] [place] [phone] * (ABNORMAL) Hemoglobin A1c (10/24/2024 9:18 AM EDT) Hemoglobin A1c 7.0(H) <6.0 % [facility] Comment:Hemoglobin A1C Refer ence Range Adults: 4.8 - 6.0 % Non diabetic: < 6.0 % Goal: < 7.0 %Additional Action Suggested: > 8.0 %Note: Hemoglobin A1c results are invalid for patients with abnormal amounts of HbF. Blood transfusions may impact the HbA1c concentration in the patient sample. Estimated Average Glucose 154 mg/dL [facility] Comment:eAG = Estimated ave rage glucose which is %A1C expressed asaverage glucose, using the formula of the O6W-JpfsovgThydzhe Glucose study (ADAG), Diabetes Care, Vol.31,#8,Sep. 2007 Blood Venous blood specimen / Unknown 10/24/2024 9:18 AM EDT 10/24/2024 11:03 AM EDT us Jaida Martin DO LAB BLOOD ORDERABLES Final R esult Performing Organization Address City/[facility]/ZIP Co de Phone Number [facility] [address] [place] [phone] * Ferritin (10/24/2024 9:18 AM EDT) Ferritin 169 10 - 250 ng/mL [facility] Blood Venous blood specimen / Unknown 10/24/2024 9:18 AM EDT 10/24/2024 11:03 AM EDT Jaida Martin DO LAB BLOOD ORDERABLES Final R esult Performing Organization Address [facility] Co de Phone Number [facility] [address] [place] [phone] * (ABNORMAL) Hepatic Function Panel (10/24/2024 9:18 AM EDT) Bilirubin, Total 0.5 0.0 - 1.0 mg/dL [facility] Bilirubin, Direct 0.2 0.0 - 0.5 mg/dL [facility] Aspartate Amino Transferase 27 5 - 31 U/L [facility] Alanine Aminotransferase 10 0 - 31 U/L [facility] Total Protein 7.9 6.5 - 8.0 g/dL [facility] Albumin Level 4.2 3.5 - 5.0 g/dL [facility] Alkaline Phosphatase 143(H) 39 - 117 U/L [facility] Blood Venous blood specimen / Unknown 10/24/2024 9:18 AM EDT 10/24/2024 11:03 AM EDT Jaida Martin DO LAB BLOOD ORDERABLES Final R esult Performing Organization Address City/[facility]/ZIP Co de Phone Number [facility] [address] [place] [phone] * Lipid Panel, Standard (10/24/2024 9:18 AM EDT) Triglycerides 115 <150 mg/dL [facility] Comment:Desirable Triglyceri de: less than 150 mg/dLBorderline High Triglyceride 150-199 mg/dLHigh Triglyceride: 200-499 mg/dLVery High Triglyceride: greater than or equal to 5OO mg/dL Cholesterol 101 <200 mg/dL [facility] Comment:Desirable Cholestero l: less than 200 mg/dLBorderline High Cholesterol: 200-239 mg/dLHigh Cholesterol: greater than 239 mg/dL LDL Cholesterol Calculated 36 <100 mg/dL [facility] Comment:Desirable LDL: less than 100 mg/dLNear Optimal/Above Optimal LDL: 110- 129 mg/dLBorderline High LDL: 130-159 mg/dLHigh LDL: 160-189 mg/dLVery High LDL: greater than or equal to 190 mg/dL HDL Cholesterol 42 >40 mg/dL [facility] Comment:Desirable HDL: great er than 40 mg/dL Note: This HDL assay may give artificially low results in patients with liver disease. Blood Venous blood specimen / Unknown 10/24/2024 9:18 AM EDT 10/24/2024 11:03 AM EDT us Jaida Martin DO LAB BLOOD ORDERABLES Final R esult [facility] [address] [place] [phone] * (ABNORMAL) Basic Metabolic Panel (10/24/2024 9:18 AM EDT) Sodium 142 135 - 145 mmol/L [facility] Potassium 3.5 3.3 - 5.1 mmol/L [facility] Chloride 102 96 - 108 mmol/L [facility] Carbon Dioxide 30(H) 22 - 29 mmol/L [facility] Anion Gap 14 12 - 20 [facility] Urea Nitrogen (BUN) 12 9 - 16 mg/dL [facility] Creatinine, Serum 0.53 0.5 - 1.4 mg/dL [facility] Estimated Glomerular Filt Rate >60 [facility] Comment:Chronic Kidney Disea se: Estimated GFR < 60 mL/min/1.40g5Hwusay Kidney Disease: Estimated GFR < 15 mL/min/1.73m2 Glucose 212(H) 60 - 115 mg/dL [facility] Calcium 9.5 8.4 - 10.2 mg/dL [facility] Blood Venous blood specimen / Unknown 10/24/2024 9:18 AM EDT 10/24/2024 11:03 AM EDT Jaida Martin DO LAB BLOOD ORDERABLES Final R esult [facility] [address] [place] [phone] * BI Mammogram Screening Tomosynthesis Bilateral (10/18/2024 11:35 AM EDT) Anatomical Region Laterality Modality Breast Bilateral Mammography 10/18/2024 11:3 5 AM EDT Narrative 10/20/2024 8:23 AM EDT [facility] [address] [place] [address] Mammography Report Signed Patient: Candace Valdez MR#: [id number] : 1965 Acct:[id number] Age/Sex: 59 / F ADM Date: 10/18/24 Loc: HO.MAMMO Attending Dr: Jaida Martin DO Ordering Physician: Jaida Martin DO Results: 1N egative Date of Service: 10/18/24 Follow Up: 1 Year From Orig inal Mammogram Procedure(s): MM tomosynthesis screening BI Accession Number(s): [id number] cc: Jaida Martin DO EXAMINATION: MM SCREENING [...] 10/20/24 0819 DD/ 1135 TD/TT: 10/18/24 1156 Reporting Manager: Procedure Note Donotuseinterpreter, Image - 10/20/2024 [place] [facility] [address] [place] [address] Mammography Report Signed Patient: Kelsea Valdez#: M [id number] : 1965Acct:[id number] Age/Sex: 59 / FADM Date: 10/18/24 Loc: HO.MAMMO Attending Dr: Jaida Martin DO Ordering Physician: Jaida Martin DOResults: 1N egative Date of Service: 10/18/24Follow Up: 1 Year From Orig inal Mammogram Procedure(s): MM tomosynthesis screening BI Accession Number(s): [id number] cc: Jaida Martin DO EXAMINATION: MM SCREENING [...] 10/20/24 0819 DD/ 1135 TD/TT: 10/18/24 1156 Reporting Manager: us Jaida Martin DO IMG BI PROCEDURES Final Resu lt * Hepatitis Panel, General (07/21/2023 8:47 AM EDT) Hepatitis A IgM Nonreactive Nonreactive [facility] Comment:IgM antibodies to ACOSTA V not detected; does not exclude earlyacute or recovered HAV infection. ~Hepatitis B Surface Antibody REACTIVE Nonreactive [facility] Comment:REACTIVE: > 11.99 m IU/mL Hepatitis B Core Antibody Nonreactive Nonreactive [facility] Hepatitis C Antibody Nonreactive Nonreactive [facility] Comment:Antibodies to HCV no t detected; does not exclude early acuteHCV infection. Hepatitis B Surface Ag Negative Negative [facility] 07/21/2023 8:47 AM EDT 07/21/2023 8:47 AM EDT us Generic External Data Provider LAB BLOOD ORDERAB LES Final Result [facility] [address] [place] [phone] * HIV 1/2 ANTIGEN/ANTIBODY,FOURTH GENERATION W/RFL (03/12/2020 8:49 AM EST) HIV-1/2 ANTIGEN AND ANTIBODIES, 4TH GENERATION W/ REFLEX NON-REACT NEFTALI NON-REACT NEFTALI [facility] Comment: HIV-1 antigen and [...] purpose. For additional information please refer to http://education.[employer] [facility]/faq/GUP747 (This link is being provided for informational/ educational purposes only.) The performance of this assay has not been clinically validated in patients less than 2 years old. 03/12/2020 8:49 AM EST Jaida Martin DO LAB BLOOD ORDERABLES Final R esult Performing Organization Address City/State/[facility] Co de Phone Number [facility] [address] * Pap Smear (12/21/2019) Pap Negative for intraephithelial lesion or malignancy Negative for intraephithelial lesion or malignancy, Other HPV Undetected Historical Provider HEALTH MAINTENANCE Final Result * Colonoscopy (05/10/2018) Colonoscopy Normal Normal Comment:Repeat in 5 years Historical Provider HEALTH MAINTENANCE Final Result from Last 3 Months or Most Recently Relevant to Health Maintenance Additional Health Concerns Active Problems Noted Date Diagnosed Date Help patients manage their type 2 diabetes 01/13 Weekly blood pressure task 01/13/2025 Help patients manage their type 2 diabetes 01/13 Patient has chronic kidney disease 01/13/2025 Weekly blood pressure task 01/13/2025 Patient has chronic kidney disease 01/13/2025 [facility] MED[facility] STAND ADULT Care Teams Casing Crew Relationship Specialty Start Date End Date Jaida Martin DO [address] [place] [address] PCP - General Family Medicine 03/02/18 Pamela Andres Financing AnalystPrepress Supervisor 01/14/24
--- OUTSIDE RECORDS SUMMARY | 2025-01-18 01:10 | XMS_ITS | Encounter Summary ---
Author Organization [employer] Address [address] [facility] [address] 7t [place] [address] Care Team Providers Care Acid Pumper Name Role Phone VeronicaJaida Primary Care Provider [phone] Encounter Details Date Type Department Care Team ([facility] st Contact Info) Description 01/16/2023 Abstract [facility] MEDICINE [address] [place] [address] Justine Huggins Social History Tobacco Use Types [...] Description 02/16/2025 9:30 AM EST Office Visit [facility] ADULT DENTAL [address] [place] [address] Jim, Amanda [address] [place] [address] 02/22/2025 11:00 AM EST Nurse Only [facility] MEDICINE [address] [place] [address] 04/19/2025 3:00 PM EST Office Visit [facility] OPTOMETRY [address] [place] [address] Ta, Soha, OD [address] [place] [address] documented as of this encounter Procedures Procedure Name Priority Date/Time Associated Diagnosis Comments COLONOSCOPY Routine 05/10/2018 documented in this encounter Results * Colonoscopy (05/10/2018) Colonoscopy Normal Normal Comment:Repeat in 5 years Historical Provider HEALTH MAINTENANCE Final Result documented in this encounter Visit Diagnoses Not on filedocumented in this encounter Care Teams Acid Pumper Relationship Specialty Start Date End Date Jaida Martin DO [address] [place] [address] PCP - General Family Medicine 03/02/18 Pamela Andres Wireless OperatorCo Founder And President 01/14/24 documented as of this encounter
--- OUTSIDE RECORDS SUMMARY | 2025-01-18 01:10 | XMS_ITS | Encounter Summary ---
Author Organization [employer] Address [address] [facility] 7t [place] [address] Care Team Providers Care Quality Assurance Coach Name Role Phone Jaida Martin DO Primary Care Provider Reason for Visit * Reason Onset Date Comments Durable Medical Equipment 10/01/2022 Encounter Details Date Type Department Care Team ([facility] st Contact Info) Description 10/01/2022 Telephone [facility] MEDICINE [address] [place] [address] Jaida Martin DO [address] [place], [place] [phone] Durable Medical Equipment Social History Tobacco Use [...] Description 02/16/2025 9:30 AM EST Office Visit [facility] ADULT DENTAL [address] [place] [address] Jim, Amanda [address] [place] [address] 02/22/2025 11:00 AM EST Nurse Only [facility] MEDICINE [address] [place] [address] 04/19/2025 3:00 PM EST Office Visit [facility] OPTOMETRY [address] [place] [address] Ta, Soha, OD [address] [place] [address] documented as of this encounter Visit Diagnoses Not on filedocumented in this encounter Care Teams Quality Assurance Coach Relationship Specialty Start Date End Date Jaida Martin DO [address] [place] [address] PCP - General Family Medicine 03/02/18 Pamela Andres Film Casting OperatorCustomer Service Engineer 01/14/24 documented as of this encounter
--- OUTSIDE RECORDS SUMMARY | 2025-01-18 01:11 | XMS_ITS | Encounter Summary ---
Author Organization [employer] Address [address] [facility] 7t [place] [address] Care Team Providers Care Communications Instructor Name Role Phone VeronicaJaida Primary Care Provider [phone] Encounter Details Date Type Department Care Team (Late Contact Info) Description 12/03/2022 Abstract [facility] MEDICINE [address] [place], [place] [phone] Justine Huggins Social History Tobacco Use Types [...] Description 02/16/2025 9:30 AM EST Office Visit [facility] ADULT DENTAL [address] [place], [place] [phone] Jim, Amanda [address] [place] [address] 02/22/2025 11:00 AM EST Nurse Only [facility] MEDICINE [address] [place], [place] [phone] 04/19/2025 3:00 PM EST Office Visit [facility] OPTOMETRY [address] [place] [address] Soha Chappell, OD [address] [place], [place] [phone] documented as of this encounter Procedures Procedure Name Priority Date/Time Associated Diagnosis Comments PAP/HPV Routine 12/21/2019 documented in this encounter Results * Pap Smear (12/21/2019) Pap Negative for intraephithelial lesion or malignancy Negative for intraephithelial lesion or malignancy, Other HPV Undetected us Historical Provider HEALTH MAINTENANCE Final Result documented in this encounter Visit Diagnoses Not on filedocumented in this encounter Care Teams Communications Instructor Relationship Specialty Start Date End Date Jaida Martin DO [address] [place], [place] [phone] PCP - General Family Medicine 03/02/18 Pamela Andres [employer] Guidance CounselorSanforizing Machine Operator 01/14/24 documented as of this encounter
--- OUTSIDE RECORDS SUMMARY | 2025-01-18 01:11 | XMS_ITS | Encounter Summary ---
Author Organization [employer] Address [address] [facility] 7t [place] [address] Care Team Providers Care Occupational Safety And Health Manager Name Role Phone VeronicaJaida Primary Care Provider Reason for Visit * Reason Onset Date Comments Appointment 10/22/2022 Encounter Details Date Type Department Care Team ([facility] st Contact Info) Description 10/22/2022 Telephone [facility] ADULT DENTAL [address] [place], [place] [phone] Campbell Nguyễn DDS [address] [place], [place] [phone] Appointment Social History Tobacco Use Types Packs/Day [...] Description 02/16/2025 9:30 AM EST Office Visit [facility] ADULT DENTAL [address] [place] [address] Jim, Amanda [address] [place] [address] 02/22/2025 11:00 AM EST Nurse Only [facility] MEDICINE [address] [place] [address] 04/19/2025 3:00 PM EST Office Visit [facility] OPTOMETRY [address] [place], [place] [phone] Soha Chappell, OD [address] [place] [address] documented as of this encounter Visit Diagnoses Not on filedocumented in this encounter Care Teams Occupational Safety And Health Manager Relationship Specialty Start Date End Date Jaida Martin DO [address] [place] [address] PCP - General Family Medicine 03/02/18 Pamela Andres Sales Representative Sales ManagerDirector Of Physical Therapy 01/14/24 documented as of this encounter
--- OUTSIDE RECORDS SUMMARY | 2025-01-18 01:11 | XMS_ITS | Encounter Summary ---
Author Organization [employer] Address [address] [facility] 7t [place] [address] Care Team Providers Care Cp Bleacher Operator Name Role Phone VeronicaJaida Primary Care Provider [phone] Reason for Visit * Reason Comments Med Refill Encounter Details Date Type Department Care Team ([facility] Contact Info) Description 02/03/2023 Refill [facility] MEDICINE [address] [place], [place] [phone] Lakshmi Jackson MD [address] [place], [place] [phone] Anemia, unspecified type Social History Tobacco Use [...] Description 02/16/2025 9:30 AM EST Office Visit [facility] ADULT DENTAL [address] [place] [address] Jim, Amanda [address] [place] [address] 02/22/2025 11:00 AM EST Nurse Only [facility] MEDICINE [address] [place] [address] 04/19/2025 3:00 PM EST Office Visit [facility] OPTOMETRY [address] [place] [address] Ta, Soha, OD [address] [place] [address] documented as of this encounter Visit Diagnoses Diagnosis Anemia, unspecified type documented in this encounter Care Teams Cp Bleacher Operator Relationship Specialty Start Date End Date Jaida Martin DO [address] [place] [address] PCP - General Family Medicine 03/02/[address] Glassware ReplacerDropper Tank Storage 01/14/24 documented as of this encounter
--- OUTSIDE RECORDS SUMMARY | 2025-01-18 01:12 | XMS_ITS | Clinical Summary ---
Author Organization [facility] Address [address] [place] [address] Care Team Providers Care Carbon Blocks Press Operator Name Role Phone Jaida Martin Primary Care Provider [phone] Allergies No known active allergies Medications cloNIDine [...] Info) Description 05/01/2025 2:30 PM EST Follow-Up [facility] Neurology [address] [place] [phone] Nancy Petty MD [address] [place] [address] [phone] Health Maintenance Due Date Last Done Comments [...] 2024 , 11/18/2022, 11/21/2021, Additional history exists COVID-19 Vaccine (6 - 2024-2 6 season) 2024 01/22/2024, 12/12/2021, 07/30/2021, Additional history exists Colon Cancer Screening 12/27/2024 FOBT / Fit Test 12/27/2024 12/28/2023, 12/12/2022 Basic Metabolic Panel 12/29/2024 12/30/2023 , 12/28/2023, 12/12/2022 DTaP,Tdap,and Td Vaccines (4 - Td or Tdap) 11/15/2030 11/15/2020, 05/31/2009, 04/23/2009, Additional history exists Hepatitis B Vaccines Completed 07/14/2008, 06/12/2008, 10/28/2006, Additional history exists HIV Screening Completed 03/12/2020, 03/12/2020 Zoster Vaccines Completed 09/11/2020, 07/05/2020 Pneumococcal Vaccine: 50+ Years Completed 11/21/2021, 03/21/2018, 10/17/2012, Additional history exists Procedures * Due to [employer] law, this organization might not be sharing negative HIV tests. Procedure Name Priority Date/Time Associated Diagnosis Comments COMPREHENSIVE METABOLIC PANEL Routine 12/30/2023 9:51 AM EDT Intention tremor from Last 3 Months or Most Recently Relevant to Health Maintenance Results * Due to [facility] law, this organization might not be sharing negative HIV tests. * (ABNORMAL) Comprehensive Metabolic Panel (12/30/2023 9:51 AM EDT) NA 140 135 - 145 mmol/L 12/30/2023 11:25 AM EDT [facility] K 3.6 3.5 - 5.3 mmol/L 12/30/2023 11:25 AM EDT [facility] Cl 102 98 - 107 mmol/L 12/30/2023 11:25 AM EDT [facility] CO2 27 22 - 32 mmol/L 12/30/2023 11:25 AM EDT [facility] Anion Gap 11 5 - 15 12/30/2023 11:25 AM [facility] Glucose 171(H) 65 - 99 mg/dL 12/30/2023 11:25 AM [facility] Creatinine 0.41(L) 0.50 - 1.20 mg/dL 12/30/2023 11:25 AM [facility] Calcium 9.0 8.6 - 10.5 mg/dL 12/30/2023 11:25 AM [facility] Total Protein 7.6 6.0 - 8.0 g/dL 12/30/2023 11:25 AM [facility] Albumin 4.2 3.5 - 5.2 g/dL 12/30/2023 11:25 AM [facility] Bilirubin, Total 0.3 0.2 - 1.2 mg/dL 12/30/2023 11:25 AM [facility] Alkaline Phosphatase 152(H) 35 - 129 U/L 12/30/2023 11:25 AM [facility] AST 19 10 - 40 U/L 12/30/2023 11:25 AM [facility] ALT 12 10 - 40 U/L 12/30/2023 11:25 AM [facility] BUN 12 7 - 23 mg/dL 12/30/2023 11:25 AM [facility] eGFR >90 >=60 mL/min/1 .73m2 12/30/2023 11:25 AM [facility] Comment:The estimated glomer [...] - 4.2 g/dL 12/30/2023 11:25 AM EDT [facility] A/G Ratio 1.2(L) 1.5 - 3.0 12/30/2023 11:25 AM EDT [facility] Blood Structure of peripheral vein / Unknown Venipuncture / Unknown 12/30/2023 9:51 AM EDT 12/30/2023 10:39 AM EDT us Nancy Petty MD LAB BLOOD ORDERABLES Fi nal Result [facility] [address] [place] [phone], from Last 3 Months or Most Recently Relevant to Health Maintenance Insurance [employer] Care Teams Carbon Blocks Press Operator Relationship Specialty Start Date End Date Jaida Martin [address] [place] [address] PCP - General Family Medicine 01/20/23
--- OUTSIDE RECORDS SUMMARY | 2025-01-18 01:13 | XMS_ITS | Clinical Summary ---
Author Organization [employer] ity Address [address] [place] [address] Care Team Providers Care Beater Lead Name Role Phone Unavailable Primary Care Provider [...] 07/10/2017 Zoster Vaccines (1 of 2) 07/10/2017 Depression Screening 03/02/2024 COVID-19 Vaccine ( - 2024-2 6 season) 2024 Influenza Vaccine (#1) 2024 RSV Immunization Adult Patie nts (1 - 1-dose 75+ series) 07/10/2042 HIB Vaccines Aged Out No longer eligi [...]
--- OUTSIDE RECORDS SUMMARY | 2025-01-18 01:13 | XMS_ITS | Encounter Summary ---
Author Organization [employer] Address [address] [facility] 7t [place] [address] Care Team Providers Care Clinical Administrator Name Role Phone VeronicaJaida Primary Care Provider + [phone] Reason for Visit * Reason Comments Med Refill Encounter Details Date Type Department Care Team ([facility] Contact Info) Description 05/14/2023 Refill [facility] MEDICINE [address] [place], [place] [phone] Suni Quintanilla MD [address] [place], [place] [phone] Social History Tobacco Use Types Packs/Day Years [...] Description 02/16/2025 9:30 AM EST Office Visit [facility] ADULT DENTAL [address] [place] [address] Jim, Amanda [address] [place] [address] 02/22/2025 11:00 AM EST Nurse Only [facility] MEDICINE [address] [place] [address] 04/19/2025 3:00 PM EST Office Visit [facility] OPTOMETRY [address] [place] [address] Ta, Soha, OD [address] [place] [address] documented as of this encounter Visit Diagnoses Not on filedocumented in this encounter Care Teams Clinical Administrator Relationship Specialty Start Date End Date Jaida Martin DO [address] [place] [address] PCP - General Family Medicine 03/02/18 Pamela Andres Brake EngineerBranch Mechanic 01/14/24 documented as of this encounter
--- OUTSIDE RECORDS SUMMARY | 2025-01-18 01:14 | XMS_ITS | Encounter Summary ---
Author Organization [employer] Address [address] [facility] 7t [place] [address] Care Team Providers Care Snack Bar Cook Name Role Phone Jaida Martin DO Primary Care Provider [phone] Reason for Visit * Reason Comments Med Refill Encounter Details Date Type Department Care Team ([facility] Contact Info) Description 01/13/2025 Refill [facility] MEDICINE [address] [place], [place] [phone] Jaida Martin DO 230 [place], [place] [phone] Chronic gastroesophageal reflux disease Social History Tobacco Use Types Packs/Day Years [...] Description 02/16/2025 9:30 AM EST Office Visit [facility] ADULT DENTAL [address] [place] [address] Jim, Amanda [address] [place] [address] 02/22/2025 11:00 AM EST Nurse Only [facility] MEDICINE [address] [place] [address] 04/19/2025 3:00 PM EST Office Visit [facility] OPTOMETRY [address] [place] [address] Ta, Soha, OD [address] [place] [address] documented as of this encounter Goals Goal Patient Goal Type Associated Problems Recent Progress Patient-Stated? Author Help patients manage their type 2 diabetes Care Plan Help patients manage their type 2 diabetes No Ray Pearce, PharmD Weekly blood pressure task Care Plan Weekly blood pressure task No Ray Pearce, PharmD Help patients manage their type 2 [...] chronic kidney disease No Ray Pearce PharmD documented as of this encounter Visit Diagnoses Diagnosis Chronic gastroesophageal reflux disease documented in this encounter Additional Health Concerns Active Problems Noted Date Diagnosed Date Help patients manage their type 2 diabetes 01/13 Weekly blood pressure task 01/13/2025 Help patients manage their type 2 diabetes 01/13 Patient has chronic kidney disease 01/13/2025 Weekly blood pressure task 01/13/2025 Patient has chronic kidney disease 01/13/2025 Assessment Noted Time PHQ-9 Depression Total Score: 0 01/22/20 24 10:22 AM EST documented as of this encounter Care Teams Snack Bar Cook Relationship Specialty Start Date End Date Jaida Martin DO [address] [place] [address] PCP - General Family Medicine 03/02/18 Pamela Andres Vehicle Check In ClerkResin Coater 01/14/24 documented as of this encounter
--- OUTSIDE RECORDS SUMMARY | 2025-01-18 01:14 | XMS_ITS | Encounter Summary ---
Author Organization [employer] Address [address] [facility] 7t [place] [address] Care Team Providers Care Strip Polisher Name Role Phone Jaida Martin DO Primary Care Provider [phone] Encounter Details Date Type Department Care Team (Latest Contact Info) Description 06/04/2021 Abstract [facility] CONVERSIONS Dental, Provider, DDS Social History [...] Description 02/16/2025 9:30 AM EST Office Visit [facility] ADULT DENTAL [address] [place] [address] Jim, Amanda [address] [place] [address] 02/22/2025 11:00 AM EST Nurse Only [facility] MEDICINE [address] [place] [address] 04/19/2025 3:00 PM EST Office Visit [facility] OPTOMETRY [address] [place] [address] Ta, Soha, OD [address] [place] [address] documented as of this encounter Visit Diagnoses Not on filedocumented in this encounter Care Teams Strip Polisher Relationship Specialty Start Date End Date Jaida Martin DO [address] [place] [address] PCP - General Family Medicine 03/02/18 Pamela Andres Senior Administrative AssistantSecurity Alarm Technician 01/14/24 documented as of this encounter
--- OUTSIDE RECORDS SUMMARY | 2025-01-18 01:14 | XMS_ITS | Encounter Summary ---
Author Organization [employer] Address 75 [facility] 7t [place] [address] Care Team Providers Care Community Engagement Coordinator Name Role Phone Jaida Martin DO Primary Care Provider Encounter Details Date Type Department Care Team (Latest Contact Info) Description 03/12/2020 Abstract [facility] CONVERSIONS Dental, Provider, DDS Social [...] Description 02/16/2025 9:30 AM EST Office Visit [facility] ADULT DENTAL [address] [place] [address] Jim, Amanda [address] [place] [address] 02/22/2025 11:00 AM EST Nurse Only [facility] MEDICINE [address] [place] [address] 04/19/2025 3:00 PM EST Office Visit [facility] OPTOMETRY [address] [place] [address] Ta, Soha, OD [address] [place] [address] documented as of this encounter Visit Diagnoses Not on filedocumented in this encounter Care Teams Community Engagement Coordinator Relationship Specialty Start Date End Date Jaida Martin DO [address] [place] [address] PCP - General Family Medicine 03/02/18 Pamela Andres World Language TeacherRace Car Driver 01/14/24 documented as of this encounter
--- OUTSIDE RECORDS SUMMARY | 2025-01-18 01:14 | XMS_ITS | Encounter Summary ---
Author Organization [employer] Address [address] [facility] 7t [place] [address] Care Team Providers Care Labor Training Manager Name Role Phone Jaida Martin DO Primary Care Provider [phone] Encounter Details Date Type Department Care Team ([facility] st Contact Info) Description 01/13/2025 Refill [facility] MEDICINE [address] [place] [address] Jaida Martin DO [address] [place] [address] Chronic gastroesophageal reflux disease Social History Tobacco [...] Description 02/16/2025 9:30 AM EST Office Visit [facility] ADULT DENTAL [address] [place] [address] Jim, Amanda [address] [place] [address] 02/22/2025 11:00 AM EST Nurse Only [facility] MEDICINE [address] [place] [address] 04/19/2025 3:00 PM EST Office Visit [facility] OPTOMETRY [address] [place] [address] Ta, Soha, OD [address] [place] [address] documented as of this encounter Goals Goal [...] type 2 diabetes No Ray Pearce, PharmD Patient has chronic kidney disease Care [...] documented as of this encounter Care Teams Labor Training Manager Relationship Specialty Start Date End Date Jaida Martin DO [address] [place] [address] PCP - General Family Medicine 03/02/18 Pamela Adnres Fireworks AssemblerOutside Machinist Helper 01/14/24 documented as of this encounter
--- OUTSIDE RECORDS SUMMARY | 2025-01-18 01:14 | XMS_ITS | Encounter Summary ---
Author Organization [employer] Address [address] [place] [address] Care Team Providers Care Sports Administrator Name Role Phone VeronicaJaida Primary Care Provider Encounter Details Date Type Department Care Team (Late st Contact Info) Description 02/04/2022 Abstract [facility] ADULT DENTAL [address] [place] [address] Dental, Provider, DDS Social History Tobacco Use [...] 9:30 AM EST Office Visit [facility] ADULT DENTAL [address] [place] [address] Jim, Amanda [address] [place] [address] 02/22/2025 11:00 AM EST Nurse Only [facility] MEDICINE [address] [place] [address] 04/19/2025 3:00 PM EST Office Visit [facility] OPTOMETRY [address] [place] [address] Ta, Soha, OD [address] [place] [address] documented as of this encounter Procedures Procedure [...] on filedocumented in this encounter Care Teams Sports Administrator Relationship Specialty Start Date End Date Jaida Martin DO [address] [place] [address] PCP - General Family Medicine 03/02/18 Pamela Andres [employer] Companion 01/14/24 documented as of this encounter
--- NOTE | 2025-02-03 10:57 | HO.ANESPROP2 ---
Documented by User: Mala De La Paz NP 02/03/25 11:00 HPI - Anesthesia Eval Consult details Narrative: 59yo F for Colonoscopy Anesthesia Pre-Procedure Meds Is the patient on any of the following meds?: GLP1/DPP4 PMFSH Active Problems Active Problems: All Active Problems Perianal pruritus (Acute) Parkinson disease (Acute) PAD (peripheral artery disease) (Acute) MetALD (Acute) History of alcohol use (Acute) Fatty liver (Acute) Asthma (Acute) Pneumonia (Acute) History of colon polyps (Acute) Cirrhosis of liver (Acute) Osteoarthritis of knees, bilateral (Acute) COVID-19 (Acute) Restrictive lung disease (Acute) Patellofemoral arthritis of right knee (Acute) Acute respiratory failure with hypoxia (Acute) Abnormal nuclear cardiac imaging test (Acute) Muscle spasm of back (Acute) Depression (Acute) Sacroiliac joint dysfunction (Acute) Lumbar facet arthropathy (Acute) Lumbosacral spondylosis with radiculopathy (Acute) Gastroparesis (Acute) Fibromyalgia (Acute) Pelvic pain (Acute) Primary osteoarthritis of left knee (Acute ~12/07/19) Status post hemorrhoidectomy (Acute) Hemorrhoids (Acute) Coarse tremors (Acute) Bleeding hemorrhoids (Acute) Hyperlipidemia (Acute) Obstructive sleep apnea on CPAP (Acute) Hypothyroidism (Acute) Paranoia (psychosis) (Acute) Stress incontinence (Acute) Insomnia (Acute) Anxiety (Acute) HTN (hypertension) (Acute) Scoliosis of thoracolumbar spine (Acute) Morbid obesity (Acute) Chronic pain syndrome (Acute) Spondylosis of lumbar region without myelopathy or radiculopathy (Acute) Inappropriate sinus tachycardia (Acute) GERD (gastroesophageal reflux disease) (Acute) Diabetic nephropathy associated with type 2 diabetes mellitus (Acute) 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 due to insulin (Acute) prison (current) use of insulin (Acute) Gastroparesis (Acute) 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, uncontrolled (Acute) Past Medical History Medical History Perianal pruritus Asthma HTN (hypertension) Hyperlipidemia 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, uncontrolled 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 Diabetic nephropathy associated with type 2 diabetes mellitus 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 due to insulin Hypothyroidism Obstructive sleep apnea on CPAP Anemia NAFLD (nonalcoholic fatty liver disease) Sacroiliac joint dysfunction Coarse tremors Bleeding hemorrhoids Dental crowns present Respiratory failure Paranoia (psychosis) Stress incontinence Insomnia Anxiety Scoliosis of thoracolumbar spine Morbid obesity Chronic pain syndrome Inappropriate sinus tachycardia GERD (gastroesophageal reflux disease) Spondylosis of lumbar region without myelopathy or radiculopathy Gastroparesis Hemorrhoids Migraine Patellofemoral arthritis Patella-femoral syndrome Lumbar spondylosis Fibromyalgia Tubular adenoma Family history of colon cancer Vitamin D deficiency Genu valgum Palpitations Chest pain Family History Family History Father Stomach cancer Mother Heart disease HTN (hypertension) Diabetes Son No problems noted. Paternal Aunt Stomach cancer Sister Stomach cancer Sister Uterine cancer Family history of problems with anesthesia: No Surgical History Surgical History Status post hemorrhoidectomy History of hemorrhoidectomy (~09/09/22) History of surgery Hx of section H/O esophagogastroduodenoscopy History of colonoscopy History of arthroscopy of right knee History of bilateral carpal tunnel release History of bladder surgery History of tubal ligation Hx of tonsillectomy History of Problems with Anesthesia: No Social History Social History Household Members: Family Household Members Other:: adult son Housing: Apartment Are you a primary career manager to a significant other at home: No Do you presently have visiting nurse or other home services: No Alcohol intake: never Patient Tobacco Use Status: Never used Tobacco Second Hand Smoke Exposure: No Use of substances other than those prescribed or required for medical reasons: No Have you been hit, kicked, punched, or otherwise hurt by someone within the past year? If so, by whom?: No Are you DNR?: No Advance Directives: No Advance Directives Information Provided: Yes Advance Directives on File: No Advance Directives Date on File: 10/18/12 service: No Current occupational status: disabled Current occupation: lt handed Sexual orientation: Straight/Heterosexual Gender identity: Female Meds Allergies Allergy/AdvReac Type Severity Reaction Status Date / Time No Known Allergies (No Known Allergy Verified 02/07/25 09:33 Allergies*) Home Medications ?Medication ?Instructions ?Recorded ?Confirmed ?Last Taken ?Type clonidine HCl 0.1 mg tablet 0.1 mg PO BEDTIME PRN Anxiety 11/30/19 02/07/25 09/14/23 History ferrous sulfate 325 mg (65 mg 325 mg PO Q OTHER DAY 11/30/19 02/07/25 01/30/25 History iron) tablet rosuvastatin 20 mg tablet (Crestor) 20 mg PO BEDTIME 11/30/19 02/07/25 09/14/23 History thiamine HCl (vitamin B1) 100 mg 100 mg PO DAILY 11/30/19 02/07/25 09/14/23 History tablet aspirin 81 mg tablet,delayed 81 mg PO DAILY 01/01/21 02/07/25 01/30/25 History release clonazepam 1 mg tablet 1 mg PO TID PRN Anxiety 05/07/21 02/07/25 09/14/23 History omeprazole 20 mg capsule,delayed 20 mg PO DAILY@0630 05/07/21 02/07/25 09/14/23 History release valsartan 160 mg tablet 160 mg PO DAILY 05/07/21 02/07/25 09/14/23 History cholecalciferol (vitamin D3) 50 50 mcg PO DAILY 07/12/21 02/07/25 09/14/23 History mcg (2,000 unit) capsule docusate sodium 100 mg capsule 100 mg PO BID 09/26/21 02/07/25 09/14/23 History levothyroxine 125 mcg tablet 1 tab PO DAILY@0600 10/23/21 02/07/25 09/14/23 History albuterol sulfate 2.5 mg/3 mL 2.5 mg inhalation Q4H PRN Wheezing 12/04/21 02/07/25 09/14/23 History (0.083 %) solution for nebulization fluticasone furoate 200 1 inh inhalation DAILY 08/25/23 02/07/25 09/14/23 History mcg/actuation blister powder for inhalation (Arnuity Ellipta) acetaminophen 650 mg 650 mg PO Q8H PRN mild pain 09/15/23 02/07/25 09/14/23 History tablet,extended release aripiprazole 15 mg tablet 15 mg PO BEDTIME 09/15/23 02/07/25 09/14/23 History lidocaine 5 % topical patch 1 patch transdermal DAILY 09/15/23 02/07/25 09/14/23 History melatonin 5 mg tablet 5 - 10 mg PO BEDTIME PRN Insomnia 09/15/23 02/07/25 09/14/23 History nortriptyline 75 mg capsule 75 mg PO BEDTIME 09/15/23 02/07/25 09/14/23 History Exam Pertinent Lab Results Pertinent Lab Results: Laboratory Tests 05/06/23 10/24/24 04:51 09:18 WBC 9.2 9.8 Hgb 12.1 12.0 Hct 38.8 39.2 Plt Count 264 336 D Sodium 139 142 Potassium 3.4 3.5 Chloride 103 102 Carbon Dioxide 25 30 H BUN 7 L 12 Creatinine 0.66 0.53 Assessment and Plan Assessment Anesthesia Assessment: Chart Reviewed Final Anesthetic Review Family History of Problems with Anesthesia: No History of Problems with Anesthesia: No Documented by User: Ernestina Olivas MD 02/07/25 09:33 [facility] Past Medical History Medical History Perianal pruritus Asthma HTN (hypertension) Hyperlipidemia 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, uncontrolled prison (current) use of insulin Diabetic nephropathy associated with type 2 diabetes mellitus 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 due to insulin Hypothyroidism Obstructive sleep apnea on CPAP Anemia NAFLD (nonalcoholic fatty liver disease) Sacroiliac joint dysfunction Coarse tremors Bleeding hemorrhoids Dental crowns present Respiratory failure Paranoia (psychosis) Stress incontinence Insomnia Anxiety Scoliosis of thoracolumbar spine Morbid obesity Chronic pain syndrome Inappropriate sinus tachycardia GERD (gastroesophageal reflux disease) Spondylosis of lumbar region without myelopathy or radiculopathy Gastroparesis Hemorrhoids Migraine Patellofemoral arthritis Patella-femoral syndrome Lumbar spondylosis Fibromyalgia Tubular adenoma Family history of colon cancer Vitamin D deficiency Genu valgum Palpitations Chest pain Family History Family History Father Stomach cancer Mother Heart disease HTN (hypertension) Diabetes Son No problems noted. Paternal Aunt Stomach cancer Sister Stomach cancer Sister Uterine cancer Surgical History Surgical History Status post hemorrhoidectomy History of hemorrhoidectomy (~09/09/22) History of surgery Hx of section H/O esophagogastroduodenoscopy History of colonoscopy History of arthroscopy of right knee History of bilateral carpal tunnel release History of bladder surgery History of tubal ligation Hx of tonsillectomy Social History Social History Household Members: Family Household Members Other:: adult son Housing: Apartment Are you a primary career manager to a significant other at home: No Do you presently have visiting nurse or other home services: No Alcohol intake: never Patient Tobacco Use Status: Never used Tobacco Second Hand Smoke Exposure: No Use of substances other than those prescribed or required for medical reasons: No Have you been hit, kicked, punched, or otherwise hurt by someone within the past year? If so, by whom?: No Are you DNR?: No Advance Directives: No Advance Directives Information Provided: Yes Advance Directives on File: No Advance Directives Date on File: 10/18/12 service: No Current occupational status: disabled Current occupation: lt handed Sexual orientation: Straight/Heterosexual Gender identity: Female Meds Allergies Allergy/AdvReac Type Severity Reaction Status Date / Time No Known Allergies (No Known Allergy Verified 02/07/25 09:33 Allergies*) Home Medications ?Medication ?Instructions ?Recorded ?Confirmed ?Last Taken ?Type clonidine HCl 0.1 mg tablet 0.1 mg PO BEDTIME PRN Anxiety 11/30/19 02/07/25 09/14/23 History ferrous sulfate 325 mg (65 mg 325 mg PO Q OTHER DAY 11/30/19 02/07/25 01/30/25 History iron) tablet rosuvastatin 20 mg tablet (Crestor) 20 mg PO BEDTIME 11/30/19 02/07/25 09/14/23 History thiamine HCl (vitamin B1) 100 mg 100 mg PO DAILY 11/30/19 02/07/25 09/14/23 History tablet aspirin 81 mg tablet,delayed 81 mg PO DAILY 01/01/21 02/07/25 01/30/25 History release clonazepam 1 mg tablet 1 mg PO TID PRN Anxiety 05/07/21 02/07/25 09/14/23 History omeprazole 20 mg capsule,delayed 20 mg PO DAILY@0630 05/07/21 02/07/25 09/14/23 History release valsartan 160 mg tablet 160 mg PO DAILY 05/07/21 02/07/25 09/14/23 History cholecalciferol (vitamin D3) 50 50 mcg PO DAILY 07/12/21 02/07/25 09/14/23 History mcg (2,000 unit) capsule docusate sodium 100 mg capsule 100 mg PO BID 09/26/21 02/07/25 09/14/23 History levothyroxine 125 mcg tablet 1 tab PO DAILY@0600 10/23/21 02/07/25 09/14/23 History albuterol sulfate 2.5 mg/3 mL 2.5 mg inhalation Q4H PRN Wheezing 12/04/21 02/07/25 09/14/23 History (0.083 %) solution for nebulization fluticasone furoate 200 1 inh inhalation DAILY 08/25/23 02/07/25 09/14/23 History mcg/actuation blister powder for inhalation (Arnuity Ellipta) acetaminophen 650 mg 650 mg PO Q8H PRN mild pain 09/15/23 02/07/25 09/14/23 History tablet,extended release aripiprazole 15 mg tablet 15 mg PO BEDTIME 09/15/23 02/07/25 09/14/23 History lidocaine 5 % topical patch 1 patch transdermal DAILY 09/15/23 02/07/25 09/14/23 History melatonin 5 mg tablet 5 - 10 mg PO BEDTIME PRN Insomnia 09/15/23 02/07/25 09/14/23 History nortriptyline 75 mg capsule 75 mg PO BEDTIME 09/15/23 02/07/25 09/14/23 History Exam Airway Mallampati Class: III TM Dist: <=3cm Neck ROM: Limited Heart: rrr Lungs: cta Assessment and Plan Assessment Anesthesia Assessment: Anesthesia Plan Discussed Final Anesthetic Review NPO: Yes ASA Class: III (parkinsons , took sinemet) Final Preanesthetic Review: No Changes in Pt Med Stat, Meds/Allgs Chart Reviewed, Consent Obtained/Reviewed and Anes Risks/Benef Reviewed Patient Risk: Intermediate Procedure Risk: Low Anesthetic Plan Anesthetic Plan: MAC: Disposition: Standard PACU
[2025-02-03 13:37] VITALS: BMI 39.7
[2025-02-03 14:03] VITALS: BMI 39.5
--- NOTE | 2025-02-07 09:19 | MHC.SHP ---
Pre-Procedural Eval Section A - 24 Hr Update-Section A only Date of Service: 02/07/25 Section B - Complete if H&P > 30 days Chief Complaint: Personal history of colon polyps, unspecified Details of Present Illness: Asthma HTN (hypertension) Hyperlipidemia 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, uncontrolled Diabetic nephropathy associated with type 2 diabetes mellitus Hypothyroidism Obstructive sleep apnea on CPAP Anemia NAFLD (nonalcoholic fatty liver disease) Sacroiliac joint dysfunction Bleeding hemorrhoids Stress incontinence Insomnia Anxiety Scoliosis of thoracolumbar spine Morbid obesity Chronic pain syndrome Inappropriate sinus tachycardia GERD (gastroesophageal reflux disease) Gastroparesis Hemorrhoids Migraine Patellofemoral arthritis Patella-femoral syndrome Lumbar spondylosis Fibromyalgia Tubular adenoma Family history of colon cancer Surgical History Status post hemorrhoidectomy History of hemorrhoidectomy (~09/09/22) History of surgery Hx of section H/O esophagogastroduodenoscopy History of colonoscopy History of arthroscopy of right knee History of bilateral carpal tunnel release History of bladder surgery History of tubal ligation Hx of tonsillectomy Present Medications: see Short Stay Collaborative assessment Allergies: Allergies Allergy/AdvReac Type Severity Reaction Status Date / Time No Known Allergies (No Known Allergy Verified 12/07/24 09:27 Allergies*) Review of Systems Review of Systems Comment: 10 point ROS negative Exam Exam Comment: Gen appear: No acute distress HEENT: no icterus Chest: No overt resp distress Abd: soft, nontender, nondistended Psych: Stable affect, answering questions appropriately Neuro: A/Ox3 noted to move all extremities spontaneously Ext: no peripheral edema Plan Diagnosis/Plan: Unchanged I have reviewed the history and physical and performed a pertinent physical examination on my patient. No changes have occurred unless specified. Time Spent With Patient Time: Total time managing care of this patient today ____ minutes.
[2025-02-07 09:21] VITALS: BP 178/85; PULSE 85; RESP 16; TEMP 36.6; O2SAT 93
[2025-02-07] MEDS: Lactated Ringers 1,000 ML 100 ML IVCONT (09:31)
[2025-02-07 09:35] LABS: Glucose, Whole Blood 230 mg/dL (60-115)
--- NOTE | 2025-02-07 10:02 | P.OPN-COLO_ITS ---
Colonoscopy Operative Note Operative Note Date of Service: 02/07/25 Narrative: Procedure: Colonoscopy Indication: Personal history of polyps Endoscopist: Kamila Blackman MD Anesthesia Provider: Dr Santos Anesthesia type: MAC Instrument: Olympus [id number]-[id number] Consent: Indication, risks vs benefits, and alternatives were discussed with the patient who gave written informed consent to proceed. An seismic interpreter was utilized to assist with the consent. EKG, pulse, pulse oximetry and blood pressure were monitored throughout the procedure. Please see anesthesia flowsheet. Procedure: An abdominal binder was affixed to the lower abdomen. The patient was brought to the procedure room and placed in the left lateral decubitus position. IV medications were administered by the anesthesia provider in attendance. A digital rectal exam was performed which was abnormal due to finding of hemorrhoids. A distal attachment cap was affixed to the tip of the colonoscope which was then inserted through the anus and advanced through the colon to the cecum at 75 cm,and terminal ileum. Appendiceal orifice and ileocecal valve were identified. Mucosa was carefully examined under high definition white light as the instrument was slowly withdrawn in a retrograde panoramic fashion. Retroflexion was performed in rectum. The procedure was not difficult. There were no immediate obvious complications. The quality of the prep was BBPS: 2+3+3 = adequate Withdrawal time 8 minutes. Limitations: No limitations. Findings: Mucosa: Normal to cecum and terminal ileum. Protruding lesions: * 2 sessile polyps of size 4-8 mm in sigmoid colon. Cold snare polypectomy was performed. The polyp was completely removed and retrieved. * Medium internal hemorrhoids without stigmata of recent bleeding. Impression: 1. Normal colon and terminal ileum mucosa 2. Total of 2 polyps removed from 3. External and internal hemorrhoids Recommendations: - Follow path results. - Repeat colonoscopy in 5-7 years if polyps are adenomas.
[2025-02-07 10:40] VITALS: BP 121/68; PULSE 83; RESP 16; TEMP 36.9; O2SAT 98
[2025-02-07 10:54] VITALS: BP 134/67; PULSE 84; RESP 16; O2SAT 98
[2025-02-07 11:07] VITALS: BP 153/69; PULSE 82; RESP 16; TEMP 36.9; O2SAT 97
== END 2025-02-07 11:32 | disposition home or self-care (01) ==
PROVIDERS: PCP Family Medicine; Visit Provider Internal Medicine
PROC: 0DJD8ZZ Inspection of Lower Intestinal Tract, Via Natural or Artificial Opening Endoscopic (ICD-10-PCS; CPT 45378; principal; 2025-02-07 10:10)
DX: Z12.11 Encounter for screening for malignant neoplasm of colon (principal); Z86.0101 Personal history of adenomatous and serrated colon polyps; E11.649 Type 2 diabetes mellitus with hypoglycemia without coma; Z80.0 Family history of malignant neoplasm of digestive organs; K76.0 Fatty (change of) liver, not elsewhere classified; F10.90 Alcohol use, unspecified, uncomplicated; K64.8 Other hemorrhoids; D12.5 Benign neoplasm of sigmoid colon
CPT/HCPCS: 45385; 82947; 88305; J1100; J2003; J2704

== ENCOUNTER → 2025-02-07 07:43 | Outpatient (BNV) | payer MEDICAID, SELFPAY | PROVIDERS: PCP Family Medicine; Visit Provider Internal Medicine | DX: K63.5 Polyp of colon (principal) | CPT/HCPCS: 45385 ==

== ENCOUNTER 2025-02-21 14:36 | Outpatient (AMB) | payer MEDICAID, SELFPAY ==
--- OUTSIDE RECORDS SUMMARY | 2025-02-16 09:30 | XMS_ITS | Encounter Summary ---
Author Organization [employer] Address [address] [facility] [address] [place] [address] Care Team Providers Care Wheel Inspector Name Role Phone VeronicaJaida Primary Care Provider [phone] Reason for Visit * Reason Comments Routine Cleaning Dental Exam Encounter Details Date Type Department Care Team ([facility] Contact Info) Description 02/16/2025 9:30 AM EST Office Visit [facility] [address], [place] [phone] Jim Amanda [address], [place] [phone] Dental plaque (Primary Dx); Missing teeth, acquired; Xerostomia; Fractured dental jainism with loss of material; Fractured dental jainism without loss of material Social History Tobacco Use Types Packs/Day Years [...] the past 12 months, has t he [employer], gas, oil or water company threatened to [...] as of this encounter Progress Notes * Amanda Fernandez - 02/16/2025 9:30 AM EST Patient ID: Candace Díaz is a 59 y.o. female. Time Out: Timeout Date: 02/16/25, Timeout Time: 0929 (p. exam, x-rays, perio chart prophy) Location: [facility] Tooth: Maxilla and Mandible Procedure: Exam, X-rays, Prophylaxis, and Perio chart Verified the above with patient, budget assistant, and provider. Confirmed via patient's chart, intraorally and by radiographs. Emergency Doctor: not applicable Medical Hx: Vitals: There were no vitals taken for this visit. Medications, Med Hx reviewed with patient and updated in chart. Treatment Provided Dental procedures in this visit D1110 - PROPHYLAXIS - ADULT Full (Completed) Service provider: Amanda Fernandez [place] provider: Campbell Nguyễn DDS D1497 - ORAL HYGIENE INSTRUCTIONS (Completed) Service provider: Amanda Fernandez [place] provider: Campbell Nguyễn DDS D7495 - CASE PRESENTATION, DETAILED AND EXTENSIVE TREATMENT PLANNING (Completed) Service provider: Amanda Fernandez Billing provider: Campbell Nguyễn DDS D0273 - BITEWINGS - 3 RADIOGRAPHIC IMAGES (Completed) Service provider: Amanda Fernandez Billing provider: Campbell Nguyễn DDS D0220 - INTRAORAL - PERIAPICAL FIRST RADIOGRAPHIC IMAGE 8,9 (Completed) Service provider: Amanda Fernandez Billing provider: Campbell Nguyễn DDS D0230 - INTRAORAL - PERIAPICAL EACH ADDITIONAL RADIOGRAPHIC IMAGE 29,30,31 (Completed) Service provider: Amanda Fernandez Billing provider: Campbell Nguyễn DDS D0230 - INTRAORAL - PERIAPICAL EACH ADDITIONAL RADIOGRAPHIC IMAGE 24,25 (Completed) Service provider: Amanda Fernandez Billing provider: Campbell Nguyễn DDS D0120 - PERIODIC ORAL EVALUATION - ESTABLISHED PATIENT (Completed) Service provider: Campbell Nguyễn DDS Billing provider: Campbell Nguyễn DDS Instruments Used: Ultrasonic Scalers and Prophy angle Oral Cancer Screening: xerostomia Head/Neck Exam: No Lesions Calculus: None Plaque: Light and Moderate Stain: Light Bleeding: Light Gingiva: pink OH: Fair Perio Chart: Completed Oral hygiene instructions provided to patient including brushing technique and flossing. Recommendations: Almo two times daily, modified glasgow technique, Floss daily, Electric toothbrush, Soft bristle toothbrush, Almo Tongue, Anti-sensitivity toothpaste. Biotene products for xerostomia. Recall Frequency: 6 mo NV: 6 months diego, and Dr. Nguyễn for restorations. Hygienist: Amanda Fernandez RDH * Campbell Nguyễn DDS - 02/16/2025 9:30 AM EST Dental procedures in this visit D1110 - PROPHYLAXIS - ADULT Full (Completed) Service provider: Amanda Fernandez [place] provider: Campbell Nguyễn DDS D1330 - ORAL HYGIENE INSTRUCTIONS (Completed) Service provider: Amanda Fernandez [place] provider: Campbell Nguyễn DDS D9450 - CASE PRESENTATION, DETAILED AND EXTENSIVE TREATMENT PLANNING (Completed) Service provider: Amanda Fernandez [place] provider: Campbell Nguyễn DDS D0273 - BITEWINGS - 3 RADIOGRAPHIC IMAGES (Completed) Service provider: Amanda Fernandez Billing provider: Campbell Nguyễn DDS D0220 - INTRAORAL - PERIAPICAL FIRST RADIOGRAPHIC IMAGE 8,9 (Completed) Service provider: Amanda Fernandez Billing provider: Campbell Nguyễn DDS D0230 - INTRAORAL - PERIAPICAL EACH ADDITIONAL RADIOGRAPHIC IMAGE 29,30,31 (Completed) Service provider: Amanda Fernandez Billing provider: Campbell Nguyễn DDS D0230 - INTRAORAL - PERIAPICAL EACH ADDITIONAL RADIOGRAPHIC IMAGE 24,25 (Completed) Service provider: Amanda Fernandez Billing provider: Campbell Nguyễn DDS D0120 - PERIODIC ORAL EVALUATION - ESTABLISHED PATIENT (Completed) Service provider: Campbell Nguyễn DDS Billing provider: Campbell Nguyễn DDS Patient ID: Candace Díaz is a 59 y.o. female. Time Out: Timeout Date: 02/16/25, Timeout Time: 928 (p. exam, x-rays, perio chart prophy) Location: [facility] Tooth: Maxilla and Mandible Procedure: Exam, X-rays, and Prophylaxis Verified the above with patient, budget assistant, and provider. Confirmed via patient's chart, intraorally and by radiographs. Emergency Doctor: not applicable Chief Complaint Patient presents with Routine Cleaning Dental Exam Medical Hx: Vitals: There were no vitals taken for this visit. Medical History[1] Medications: Encounter Medications[2] Objective HPI Asymptomatic Head and Neck Exam: Lymph Nodes, Lips, Palate, Buccal Mucosa, Floor of Mouth, Tongue, Tonsils, Alveolar Ridges, Oropharynx, Salivary Ducts, and Vestibules normal appearance Details: Skin NSF OCS: negative Dental Exam As charted Fractured teeth / restorations Partials needing adjustments Reference tooth chart for additional findings. Oral Cancer Risk: Low Risk Oral Hygiene Instructions: Almo two times daily, modified glasgow technique, Floss daily, Electric toothbrush, Soft bristle toothbrush, Almo Tongue Caries Risk Assessment: Medium- one risk factor Assessment/Plan KEISHA X rays Mj Patient tolerated procedure well, all questions answered and expressed understanding. Dismissed in good condition. NV: Mj Gas Meter Prover: Amanda Fernandez RDH Dentist: Campbell Nguyễn DDS [1] Past Medical History: Diagnosis Date Diabetes mellitus (HCC) Disease of thyroid gland Hypertension Parkinsonism (CMS/HCC) (HCC) [2] Outpatient Encounter Medications as of 02/16/2025 Medication Sig Dispense Refill albuterol (2.5 MG/3ML) 0.083% nebulizer solution INHALE 1 AMPULE USING A NEBULIZER EVERY 6 HOURS ASNEEDED FOR WHEEZING OR SHORTNESS OF BREATH 90 mL 1 Alcohol Swabs (Alcohol Prep) 70 % pads USE DIRECTED TWICE DAILY ARIPiprazole (Abilify) 15 MG tablet Take 15 mg by mouth in the morning. Arnuity Ellipta 200 MCG/ACT inhaler INHALE 1 PUFF BY MOUTH EVERY DAY AT THE SAME TIME RINSE MOUTH AFTER USING. DO NOT SWALLOW 30 each 11 aspirin (Aspirin Low Dose) 81 MG EC tablet TAKE 1 TABLET BY MOUTH EVERY MORNING 90 tablet 3 Baqsimi Two Pack 3 MG/DOSE nasal powder USE 1 SPRAY (3MG) IN ONE NOSTRIL FOR A PATIENT WITH SEVERE HYPOGLYCEMIA WHO IS NOT RESPONSIVE AND UNABLE SELF-TREAT WITH GLUCOSE. AFTERWARDS TURN ON SIDE. MAY REPEAT IN 15MINUTES IF PATIENT DOES NOT RESPOND. clonazePAM (KlonoPIN) 1 MG tablet TAKE 1 TABLET BY MOUTH THREE TIMES DAILY IN THE MORNING, EVENING,AND BEDTIME NEEDED cloNIDine (Catapres) 0.1 MG tablet TAKE 1 TABLET BY MOUTH EVERY EVENING Continuous Glucose Market Risk Analyst (FreeStyle Ortiz 3 [place]irk) device use as directed Continuous Glucose Sensor (FreeStyle Ortiz 2 Sensor) misc Take 1 tablet by mouth Once per day. cyanocobalamin (Vitamin B-12) 1000 MCG/ML injection INJECT 1 ML INTRAMUSCULARLY EVERY OTHER MONTH 2mL 1 D3 Super Strength 50 MCG (2000 UT) capsule TAKE 1 CAPSULE BY MOUTH EVERY MORNING 90 capsule 3 Diclofenac Sodium 1 % gel Please use as needed for pain up to 4x daily 150 g 3 docusate sodium (Colace) 100 MG capsule TAKE 1 CAPSULE BY MOUTH TWICE DAILY IN THE MORNING AND IN THE EVENING 180 capsule 1 Ferrous Sulfate (iron) 325 (65 Fe) MG tablet TAKE 1 TABLET BY MOUTH EVERY OTHER DAY IN THE MORNING 45 tablet 1 FREESTYLE LITE test strip TEST BLOOD SUGAR FIVE TIMES DAILY furosemide (Lasix) 20 MG tablet TAKE 1 TABLET BY MOUTH EVERY MORNING gabapentin (Neurontin) 400 MG capsule TAKE 1 CAPSULE BY MOUTH THREE TIMES DAILY IN THE MORNING, EVENING, AND BEDTIME glucose 4 g chewable tablet CHEW 4 TABLETS NEEDED FOR low blood sugar (LESS THAN 70mg/dL). TEST BLOOD SUGAR AFTER 15 MINUTES IF <70 REPEAT 90 tablet 4 HumuLIN R U-500 KWIKPEN 500 UNIT/ML CONCENTRATED injection Inject 60 Units under the skin 2 times daily. insulin NPH, Isophane, (HumuLIN N,NovoLIN N) 100 UNIT/ML injection Inject 50 Units under the skin every 12 (twelve) hours. levothyroxine (Synthroid, Levoxyl) 125 MCG tablet TAKE 1 TABLET BY MOUTH EVERY MORNING 90 tablet 3 lidocaine (Lidoderm) 5 % patch APPLY 1 TO 2 PATCHES TOPICALLY TO AFFECTED AREA(S). LEAVE ON FOR 12 HOURS, OFF FOR 12 HOURS. USE NEEDED FOR MILD PAIN. 60 patch 3 melatonin 5 MG tablet TAKE 1 TO 2 TABLETS BY MOUTH AT BEDTIME NEEDED metFORMIN (Glucophage) 500 MG tablet TAKE 2 TABLETS BY MOUTH TWICE DAILY IN THE MORNING AND [id number] tablet 3 Mounjaro 10 MG/0.5ML solution auto-injector INJECT ONE PEN (=10MG) SUBCUTANEOUSLY ONCE A WEEK DIRECTED nortriptyline (Pamelor) 75 MG capsule TAKE 1 CAPSULE BY MOUTH AT BEDTIME omeprazole (PriLOSEC) [address] capsule TAKE 1 CAPSULE BY MOUTH EVERY MORNING BEFORE A MEAL 90 capsule 1 Pentips 32G X 4 MM misc USE DIRECTED TWICE DAILY pregabalin (Lyrica) 50 MG capsule Take 1 capsule (50 mg) by mouth 3 times daily. 90 capsule 1 ProAir HFA 108 (90 Base) MCG/ACT inhaler INHALE 2 PUFFS BY MOUTH EVERY 4 TO 6 HOURS NEEDED (for asthma) propranolol (Inderal) 80 MG tablet TAKE 1 TABLET BY MOUTH TWICE DAILY IN THE MORNING AND IN THE EVENING Reguloid 57.6 % powder DISSOLVE 1 TABLESPOONFUL IN 8 OUNCES WATER AND DRINK TWICE DAILY DIRECTED rosuvastatin (Crestor) 20 MG tablet TAKE 1 TABLET BY MOUTH AT BEDTIME 90 tablet 1 Spiriva Respimat 2.5 MCG/ACT inhaler INHALE 2 PUFFS BY MOUTH EVERY DAY thiamine (Vitamin B-1) 100 MG tablet TAKE 1 TABLET BY MOUTH EVERY MORNING 90 tablet 3 TRUEplus Lancets 33G misc TEST BLOOD SUGAR 4 TIMES A DAY valsartan (Diovan) 160 MG tablet TAKE 1 TABLET BY MOUTH EVERY MORNING 90 tablet 1 Facility-Administered Encounter Medications as of 02/16/2025 Medication Dose Route Frequency Provider Last Rate Last Admin cyanocobalamin (Vitamin B-12) injection 1,000 mcg 1,000 mcg Intramuscular q8 weeks Jaida Martin DO 1,000 mcg at 12/27/24 1315 documented in this encounter Plan of Treatment Upcoming Encounters Date Type Department Care Team (Late st Contact Info) Description 02/22/2025 11:00 AM EST Nurse Only [facility] [address] [place] [address] 03/21/2025 9:45 AM EST Office Visit [facility] [address] [place] [address] Jaida Martin DO [address] [place] [address] 03/22/2025 3:00 PM EST Office Visit [facility] [address] [place] [address] Campbell Nguyễn DDS [address] [place] [address] 04/19/2025 3:00 PM EST Office Visit [facility] [address] [place] [address] Ta, Soha, OD [address] [place] [address] 08/21/2025 9:30 AM EDT Office Visit [facility] [address] [place] [address] Jim, Amanda [address] [place] [address] Scheduled Orders Name Type Priority Associated Diagnoses Orde r Schedule 28 DOL 28 DOL [place] - 3 SURF, PRIMARY OR PERMANENT Dental Routine [address] [place] 02/16/2025 31 MODB 31 MODB [place] - 4+ SURF, PRIMARY OR PERMANENT Dental Routine [address] ar[place] 02/16/2025 30 30 [place] - 3 SURF, PRIMARY OR PERMANENT Dental Routine [address] ar[place] 02/16/2025 29 MO 29 MO [place] - 2 SURF, PRIMARY OR PERMANENT Dental Routine [address] [place] 02/16/2025 Full Full PROPHYLAXIS - ADULT Dental Routine 1 Occurrences [facility] 02/16/2025 CASE PRESENTATION, DETAILED AND EXTENSIVE TREATMENT PLANNING Dental Routine 1 Occurrences starting 02/16/2025 ORAL HYGIENE INSTRUCTIONS Dental Routine 1 Occurrences starting 02/16/2025 documented as of this encounter Goals Goal [...] Patient has chronic kidney disease No Ray Pearce, PharmD Weekly blood pressure task Care Plan Weekly blood pressure task No Ray Pearce, PharmD Patient has chronic kidney disease Care Plan Patient has chronic kidney disease No Ray Pearce, PharmD Weekly blood pressure task Care Plan Weekly blood pressure task No Grover, Varghese Weekly blood pressure task Care Plan Weekly blood pressure task No Grover Varghese Patient has chronic kidney disease Care Plan Patient has chronic kidney disease No Grover, Varghese Patient has chronic kidney disease Care Plan Patient has chronic kidney disease No Grover Varghese Weekly blood pressure task Care Plan Weekly blood pressure task No Jaida Carver, PharmD Weekly blood pressure task Care Plan Weekly blood pressure task No Jaida Carver, PharmD Patient has chronic kidney disease Care Plan Patient has chronic kidney disease No Jaida Carver, PharmD Patient has chronic kidney disease Care Plan Patient has chronic kidney disease No Jaida Carver, PharmD Weekly blood pressure task Care Plan Weekly blood pressure task No Godinez, [place], [place] Weekly blood pressure task Care Plan Weekly blood pressure task No Godinez, [place], [place] Patient has chronic kidney disease Care Plan Patient has chronic kidney disease No Godinez, [place], [place] Patient has chronic kidney disease Care Plan Patient has chronic kidney disease No Godinez, [place], [place] Weekly blood pressure task Care Plan Weekly blood pressure task No Bhavna, Mirushka Weekly blood pressure task Care Plan Weekly blood pressure task No Bhavna, Mirushka Patient has chronic kidney disease Care Plan Patient has chronic kidney disease No Bhavna, Mirushka Patient has chronic kidney disease Care Plan Patient has chronic kidney disease No Bhavna Mirushka documented as of this encounter Procedures Procedure Name Priority Date/Time Associated Diagnosis Comments Full PROPHYLAXIS - ADULT Routine 025 9:30 AM EST Dental plaque Missing teeth, acquired Xerostomia Fractured dental jainism with loss of material Fractured dental jainism without loss of material PERIODIC ORAL EVALUATION - ESTABLISHED PATIENT Routine 02/16/2025 9:30 AM EST ORAL HYGIENE INSTRUCTIONS Routine 02/16/2025 9:30 AM EST Dental plaque Missing teeth, acquired Xerostomia Fractured dental jainism with loss of material Fractured dental jainism without loss of material 8,9 INTRAORAL - PERIAPICAL FIRST RADIOGRAPHIC IMAGE Routine 02/16/2025 9:30 AM EST Dental plaque Missing teeth, acquired Xerostomia Fractured dental jainism with loss of material Fractured dental jainism without loss of material 24,25 INTRAORAL - PERIAPICAL EACH ADDITIONAL RADIOGRAPHIC IMAGE Routine 02/16/2025 9:30 AM EST Dental plaque Missing teeth, acquired Xerostomia Fractured dental jainism with loss of material Fractured dental jainism without loss of material 29,30,31 INTRAORAL - PERIAPICAL EACH ADDITIONAL RADIOGRAPHIC IMAGE Routine 02/16/2025 9:30 AM EST Dental plaque Missing teeth, acquired Xerostomia Fractured dental jainism with loss of material Fractured dental jainism without loss of material CASE PRESENTATION, DETAILED AND EXTENSIVE TREATMENT PLANNING Routine 02/16/2025 9:30 AM EST Dental plaque Missing teeth, acquired Xerostomia Fractured dental jainism with loss of material Fractured dental jainism without loss of material BITEWINGS - 3 RADIOGRAPHIC IMAGES Routine 02/16/2025 9:30 AM EST Dental plaque Missing teeth, acquired Xerostomia Fractured dental jainism with loss of material Fractured dental jainism without loss of material documented in this encounter Visit Diagnoses Diagnosis Dental plaque- Primary Accretions on teeth Missing teeth, acquired Xerostomia Disturbance of salivary secretion Fractured dental jainism with loss of material Fractured dental restorative material with loss of material Fractured dental jainism without loss of material Fractured dental restorative material without loss of material documented in this encounter Additional Health Concerns Active Problems Noted Date Diagnosed Date Help patients manage their type 2 diabetes 01/13 Weekly blood pressure task 01/13/2025 Help patients manage their type 2 diabetes 01/13 Patient has chronic kidney disease 01/13/2025 Weekly blood pressure task 01/13/2025 Patient has chronic kidney disease 01/13/2025 Weekly blood pressure task 01/23/2025 Weekly blood pressure task 01/23/2025 Patient has chronic kidney disease 01/23/2025 Patient has chronic kidney disease 01/23/2025 Weekly blood pressure task 02/07/2025 Weekly blood pressure task 02/07/2025 Patient has chronic kidney disease 02/07/2025 Patient has chronic kidney disease 02/07/2025 Weekly blood pressure task 02/14/2025 Weekly blood pressure task 02/14/2025 Patient has chronic kidney disease 02/14/2025 Patient has chronic kidney disease 02/14/2025 Weekly blood pressure task 02/16/2025 Weekly blood pressure task 02/16/2025 Patient has chronic kidney disease 02/16/2025 Patient has chronic kidney disease 02/16/2025 Assessment Noted Time PHQ-9 Depression Total Score: 0 01/22/20 10:22 AM EST documented as of this encounter Care Teams Wheel Inspector Relationship Specialty Start Date End Date Jaida Martin DO [address] [place] [id number] PCP - General Family Medicine 03/02/18 Pamela Andres Automatic Dispenser MechanicEducation Manager 01/14/24 documented as of this encounter
--- NOTE | 2025-02-21 15:17 | MHC.OFFVIS ---
Intake Visit Reasons: 3m Allergies No Known Allergies (No Known Allergies*) Allergy (Verified 02/07/25 09:33) HPI Comments Details: 59 years old woman with Parkinson's disease. She was doing better but taking 2 pills a day. No problem with sleep, mood, memory, or any significant behavioral issues. She was using a cane for ambulation. [facility] Medical History (Updated 02/21/25 @ 15:23 by Farzana Hogan MD) Parkinson disease Perianal pruritus Asthma HTN (hypertension) Hyperlipidemia 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, uncontrolled FPC (current) use of insulin Diabetic nephropathy associated with type 2 diabetes mellitus 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 due to insulin Hypothyroidism Obstructive sleep apnea on CPAP Anemia NAFLD (nonalcoholic fatty liver disease) Sacroiliac joint dysfunction Coarse tremors Bleeding hemorrhoids Dental crowns present Respiratory failure Paranoia (psychosis) Stress incontinence Insomnia Anxiety Scoliosis of thoracolumbar spine Morbid obesity Chronic pain syndrome Inappropriate sinus tachycardia GERD (gastroesophageal reflux disease) Spondylosis of lumbar region without myelopathy or radiculopathy Gastroparesis Hemorrhoids Migraine Patellofemoral arthritis Patella-femoral syndrome Lumbar spondylosis Fibromyalgia Tubular adenoma Family history of colon cancer Vitamin D deficiency Genu valgum Palpitations Chest pain Surgical History Status post hemorrhoidectomy History of hemorrhoidectomy (~09/09/22) History of surgery Hx of section H/O esophagogastroduodenoscopy History of colonoscopy History of arthroscopy of right knee History of bilateral carpal tunnel release History of bladder surgery History of tubal ligation Hx of tonsillectomy Family History Father Stomach cancer Mother Heart disease HTN (hypertension) Diabetes Son No problems noted. Paternal Aunt Stomach cancer Sister Stomach cancer Sister Uterine cancer Social History Household Members: Family Household Members Other:: adult son Housing: Apartment Are you a primary personal care service provider to a significant other at home: No Do you presently have visiting nurse or other home services: No Alcohol intake: never Patient Tobacco Use Status: Never used Tobacco Second Hand Smoke Exposure: No Advance Directives Date on File: 10/18/12 service: No Current occupational status: disabled Current occupation: lt handed Sexual orientation: Straight/Heterosexual Gender identity: Female Female Reproductive History Menstrual Age of Menarche: 17 Review of Systems Narrative - Psychiatric: Denies hallucinations. - Genitourinary: Reports bladder control is normal. - Neurological: Reports sleeping well. Physical Exam Neuro Other: Mental Status: Alert and oriented to person, place, and time. Normal attention. Normal spontaneous speech, fluency, and comprehension. Cranial Nerves: CN II: Visual abbott full to confrontation, visual acuity intact. CN III, IV, : Pupils equal, round, reactive to light and accommodation. Extraocular movements are normal. CN V: Facial sensation is normal. CN VII: Facial movements symmetrical. CN VIII: Hearing intact to bedside conversation is normal. CN IX, X: Palate elevates symmetrically. CN XI: Shoulder shrug and head turn symmetrical. CN XII: Tongue midline without atrophy or fasciculations. Gait: Slow and cautious with a cane. Extrapyramidal: Decreased facial expression blinking. Mild generalized bradykinesia. Pltt-[id number] bilateral hand tremor, mostly resting tremor. Speech: Normal; no dysarthria or tremor. Assessment & Plan Assessment & Plan (1) Parkinson disease: Comment: CT brain WO at [facility] [place] [place] in 2022: WNL Code(s): G20.A1 - Parkinson's disease without dyskinesia, without mention of fluctuations Category: Medical Qualifiers: Dyskinesia presence: without dyskinesia Fluctuating manifestations: without fluctuating manifestations Qualified Code(s): G20.A1 - Parkinson's disease without dyskinesia, without mention of fluctuations Plan Impression: Mild to moderate Parkinson disease Rec: a: Carbidopa/levodopa 25/100, one, 4 times a day b: Stay active I advised the patient that her current medication dose is insufficient. I instructed her to increase the frequency to one pill taken four times a day, approximately every 3 to 5 hours starting upon waking, as each dose is effective for 3-4 hours. I mentioned a possible future increase to two pills at a time. I informed the patient that a repeat brain scan is not needed, as the one from 2022 was normal and did not contribute to her diagnosis. We will follow up in six months. Medications: Changed From carbidopa-levodopa 25-100 mg 1 tab PO TID 270 tabs 0RF To carbidopa-levodopa 25-100 mg 1 tab PO QID 270 tabs 1RF Coding Level of Care Code Est Pt Level 4 (87058) Diagnoses Parkinson's disease without dyskinesia or fluctuating manifestations G20.A1 Dyskinesia presence: without dyskinesia Fluctuating manifestations: without fluctuating manifestations
--- OUTSIDE RECORDS SUMMARY | 2025-02-21 15:55 | XMS_ITS | Encounter Summary ---
Author Organization [employer] Address [address] [place] [address] [address] [place] [address] Care Team Providers Care Interventional Physician Name Role Phone Jaida Martin DO Primary Care Provider Encounter Details Date Type Department Care Team (Late Contact Info) Description 12/03/2022 Abstract [facility] [address] [place] [id number] Justine Huggins Social History Tobacco Use Types [...] Description 02/22/2025 11:00 AM EST Nurse Only [address] [id number] 03/21/2025 9:45 AM EST Office Visit [address] [address] Jaida Martin DO [address] [place] [phone] 03/22/2025 3:00 PM EST Office Visit [facility] [address] [place] [address] HerberCampbell agarwal, DDS [address] [place] [address] 04/19/2025 3:00 PM EST Office Visit [facility] [address] [place] [address] TaSoha tierney, OD [address] [place] [address] 08/21/2025 9:30 AM EDT Office Visit [facility] [address] [place] [address] Amanda Fernandez [address] [place] [address] documented as of this encounter Procedures Procedure Name Priority Date/Time Associated Diagnosis Comments PAP/HPV Routine 12/21/2019 documented in this encounter Results * Pap Smear (12/21/2019) Pap Negative for intraephithelial lesion or malignancy Negative for intraephithelial lesion or malignancy, Other HPV Undetected Historical Provider HEALTH MAINTENANCE Final Result documented in this encounter Visit Diagnoses Not on filedocumented in this encounter Care Teams Interventional Physician Relationship Specialty Start Date End Date Jaida Martin DO [address] [place] [address] PCP - General Family Medicine 03/02/18 Pamela Andres Naturalization ExaminerArchitectural Job Captain 01/14/24 documented as of this encounter
--- OUTSIDE RECORDS SUMMARY | 2025-02-21 15:55 | XMS_ITS | Encounter Summary ---
Author Organization [employer] Address [address] [facility] [address] 7t [place] [address] Care Team Providers Care Ultrasonic Tester Name Role Phone VeronicaJaida Primary Care Provider [phone] Encounter Details Date Type Department Care Team ([facility] st Contact Info) Description 01/16/2023 Abstract [facility] MEDICINE [address] [place] [address] Justine Huggins Social History Tobacco Use Types [...] Description 02/22/2025 11:00 AM EST Nurse Only [facility] MEDICINE [address] [place] [address] 03/21/2025 9:45 AM EST Office Visit [facility] MEDICINE [address] [place] [address] Jaida Martin DO 230 [place] [address] 03/22/2025 3:00 PM EST Office Visit [facility] ADULT DENTAL [address] [place] [address] Campbell Nguyễn, DDS [address] [place] [address] 04/19/2025 3:00 PM EST Office Visit [facility] OPTOMETRY [address] [place] [address] Ta, Soha, OD 230 [place] [address] 08/21/2025 9:30 AM EDT Office Visit [facility] ADULT DENTAL [address] [place] [address] Jim, Amanda [address] [place] [address] documented as of this encounter Procedures Procedure Name Priority Date/Time Associated Diagnosis Comments COLONOSCOPY Routine 05/10/2018 documented in this encounter Results * Colonoscopy (05/10/2018) Colonoscopy Normal Normal Comment:Repeat in 5 years us Historical Provider HEALTH MAINTENANCE Final Result documented in this encounter Visit Diagnoses Not on filedocumented in this encounter Care Teams Ultrasonic Tester Relationship Specialty Start Date End Date Jaida Martin DO [address] [place] [address] PCP - General Family Medicine 03/02/18 Pamela Andres Business Applications DeveloperCnc Machine Programmer 01/14/24 documented as of this encounter
--- OUTSIDE RECORDS SUMMARY | 2025-02-21 15:55 | XMS_ITS | Encounter Summary ---
Author Organization [employer] Address 75 [facility] 7t [place] [address] Care Team Providers Care Cane Piler Name Role Phone Jaida Martin DO Primary Care Provider [phone] Encounter Details Date Type Department Care Team (Late st Contact Info) Description 03/12/2022 Orders Only [address] [address] Jaida Martin DO [address] [place] [address] [phone] Vitamin B12 deficiency (Primary Dx) Social History [...] Description 02/22/2025 11:00 AM EST Nurse Only [address] [address] 03/21/2025 9:45 AM EST Office Visit [address] [phone] Jaida Martin DO [address] [place] [address] [place] [address] 03/22/2025 3:00 PM EST Office Visit [facility] ADULT DENTAL [address] [place] [address] Campbell Nguyễn, DDS [address] [place] [address] 04/19/2025 3:00 PM EST Office Visit [facility] OPTOMETRY [address] [place] [address] Ta, Soha, OD [address] [place] [address] 08/21/2025 9:30 AM EDT Office Visit [facility] ADULT DENTAL 230 [place] [address] Jc Fernandezaris 230 [place] [address] documented as of this encounter Procedures Procedure [...] EST) Sodium 146(H) 135 - 145 mmol/L [facility] Potassium 3.0(L) 3.3 - 5.1 mmol/L [facility] Chloride 107 96 - 108 mmol/L [facility] Carbon Dioxide 30(H) 22 - 29 mmol/L [facility] Anion Gap 12 12 - 20 [facility] Urea Nitrogen (BUN) 9 9 - 16 mg/dL [facility] Creatinine, Serum 0.54 0.5 - 1.4 mg/dL [facility] Creatinine Clr Calc Pharmacy 148.7 [facility] Comment:Provided height and weight: 162.56 cm,115.666 kg.eGFR (calculated from the MDRD study equation) and eCrCl(calculated from the Cockcroft-Gault equation) are based ondifferent parameters and may not yield comparable results.If eCrCl result is absurd, please check patient'sheight/weight. Estimated Glomerular Filt Rate >60 [facility] Comment:NOTE: For -Am erican individuals, multiply the result by 1.210.Chronic Kidney Disease: Estimated GFR < 60 mL/min/[id number] Kidney Disease: Estimated GFR < 15 mL/min/1.73m2 Glucose 117(H) 60 - 115 mg/dL [facility] Calcium 9.1 8.4 - 10.2 mg/dL [facility] Bilirubin, Total 0.4 0.0 - 1.0 mg/dL [facility] Aspartate Amino Transferase 19 5 - 31 U/L [facility] Alanine Aminotransferase 10 0 - 31 U/L [facility] Total Protein 6.9 6.5 - 8.0 g/dL [facility] Albumin Level 3.8 3.5 - 5.0 g/dL [facility] Alkaline Phosphatase 126(H) 39 - 117 U/L [facility] 03/13/2022 7:42 AM EST 03/13/2022 7:44 AM EST us [facility] External Provider LAB BLO OD ORDERABLES Final Result [facility] [address] [place] [address] [phone] * (ABNORMAL) CBC auto differential (03/13/2022 7:42 AM EST) White Blood Count 10.3 4.8 - 10.8 X10*3/uL [facility] Red Blood Count 4.24 4.20 - 5.50 X10*6/uL [facility] Hemoglobin 11.0(L) 12.0 - 16.0 g/dl [facility] Hematocrit 36.1(L) 37.0 - 47.0 % [facility] Mean Corpuscular Volume 85.1 80.0 - 98.0 fL [facility] Mean Corpuscular Hemoglobin 25.9(L) 27.0 - 33.0 pg [facility] Mean Corpuscular HGB Conc 30.5(L) 31.0 - 35.0 g/dl [facility] Red Cell Distribution Width 15.9 11.0 - 16.0 % [facility] Platelet Count 266 160 - 400 X10*3/uL [facility] Mean Platelet Volume 10.1 9.4 - 12.3 fL [facility] Neutrophils Percent Auto 61.8 45 - 73 % [facility] Imm Gran Pct Auto 0.6(H) 0.0 - 0.4 % [facility] Lymphocytes Percent Auto 28.1 20 - 40 % [facility] Monocytes Percent Auto 7.3 2 - 11 % [facility] Eosinophils Percent Auto 1.8 0 - 4 % [facility] Basophils Percent Auto 0.4 0 - 2 % [facility] NRBC Pct Auto 0.0 0.0 - 0.2 /100WBC [facility] Neutrophils Absolute Auto 6.4 2.0 - 8.3 x10*3/uL [facility] Imm Gran Abs Auto 0.06(H) 0.00 - 0.03 X10*3/uL [facility] Lymphocytes Absolute Auto 2.9 1.2 - 4.9 X10*3/uL [facility] Monocytes Absolute Auto 0.8 0.1 - 1.2 X10*3/uL [facility] Eosinophils Absolute Auto 0.2 0.0 - 0.4 X10*3/uL [facility] Basophils Absolute Auto 0.0 0.0 - 0.2 X10*3/uL [facility] NRBC Abs Auto 0.000 0.0 - 0.012 X10*3/uL [facility] 03/13/2022 7:42 AM EST 03/13/2022 7:44 AM EST [facility] External Provider LAB BLO OD ORDERABLES Final Result Performing Organization Address [facility]/ZIP Co de Phone Number [facility] [address] [place] [address] [phone] * (ABNORMAL) GLUCOSE, WHOLE BLOOD (03/13/2022 5:16 AM EST) Glucose, Whole Blood 241(H) 60 - 115 mg/dL [facility] Comment:METER #: [id number] 1 03/13/2022 5:16 AM EST 03/13/2022 5:20 AM EST [facility] External Provider LAB BLO OD ORDERABLES Final Result Performing Organization Address [facility] Co de Phone Number [facility] [address] [place] [address] [phone] documented in this encounter Visit Diagnoses Diagnosis Vitamin B12 deficiency- Primary Other B-complex deficiencies documented in this encounter Care Teams Cane Piler Relationship Specialty Start Date End Date Jaida Martin DO [address] [place] [address] PCP - General Family Medicine 03/02/18 Pamela Andres Tank Furnace OperatorBasic Acoustic Analyst 01/14/24 documented as of this encounter
--- OUTSIDE RECORDS SUMMARY | 2025-02-21 15:55 | XMS_ITS | Encounter Summary ---
Author Organization [employer] Address 75 [facility] 7t [place] [address] Care Team Providers Care Die Cast Die Maker Name Role Phone Jaida Martin DO Primary Care Provider Encounter Details Date Type Department Care Team (Latest Contact Info) Description 03/12/2020 Abstract [facility] CONVERSIONS Dental, Provider, DDS Social History Tobacco [...] Care Team ( st Contact Info) Description 02/22/2025 11:00 AM EST Nurse Only [facility] MEDICINE [address] [place] [address] 03/21/2025 9:45 AM EST Office Visit [facility] MEDICINE [address] [place] [address] Jaida Martin DO [address] [place] [address] 03/22/2025 3:00 PM EST Office Visit [facility] ADULT DENTAL [address] [place] [address] Campbell Nguyễn DDS [address] [place] [address] 04/19/2025 3:00 PM EST Office Visit [facility] OPTOMETRY [address] [place], [place] [phone] Soha Chappell, OD [address] [place] [address] 08/21/2025 9:30 AM EDT Office Visit [facility] ADULT DENTAL [address] [place] [address] Jim Amanda [address] [place] [address] documented as of this encounter Visit Diagnoses Not on filedocumented in this encounter Care Teams Die Cast Die Maker Relationship Specialty Start Date End Date Jaida Martin DO [address] [place] [address] PCP - General Family Medicine 03/02/18 Pamela Andres Survey MethodologistParimutuel Ticket Cashier 01/14/24 documented as of this encounter
--- OUTSIDE RECORDS SUMMARY | 2025-02-21 15:55 | XMS_ITS | Encounter Summary ---
Author Organization [employer] Address 75 [facility] 7t [place] [address] Care Team Providers Care Master [place] Name Role Phone Jaida Martin DO Primary Care Provider Encounter Details Date Type Department Care Team (Late Contact Info) Description 03/14/2022 Orders Only [facility] MEDICINE [address] [place] [phone] Stephanie Apodaca LPN Social History Tobacco Use [...] Department Care Team (Late Contact Info) Description 02/22/2025 11:00 AM EST Nurse Only [address] [phone] 03/21/2025 9:45 AM EST Office Visit [address] [address] Jaida Martin DO [address] [place] [address] 03/22/2025 3:00 PM EST Office Visit [facility] ADULT DENTAL [address] [place] [address] Campbell Nguyễn, DDS [address] [place] [address] 04/19/2025 3:00 PM EST Office Visit [facility] OPTOMETRY [address] [place] [address] TaSoha tierney, OD [address] [place] [address] 08/21/2025 9:30 AM EDT Office Visit [facility] ADULT DENTAL [address] [place] [address] Jim, Amanda [address] [place] [address] documented as of this encounter Visit Diagnoses Not on filedocumented in this encounter Care Teams Master [place] Relationship Specialty Start Date End Date Jaida Martin DO [address] [place] [address] PCP - General Family Medicine 03/02/18 Pamela Andres Party Bus DriverWeapons Electrical Engineering Officer 01/14/24 documented as of this encounter
--- OUTSIDE RECORDS SUMMARY | 2025-02-21 15:55 | XMS_ITS | Encounter Summary ---
Author Organization [employer] Address 75 [facility] 7t [place] [address] Care Team Providers Care Water Taxi Captain Name Role Phone Jaida Martin DO Primary Care Provider [phone] Reason for Visit * Reason Comments Med Refill Encounter Details Date Type Department Care Team ([facility] st Contact Info) Description 09/27/2024 Refill [facility] MEDICINE [address] [place], [place] [phone] Jaida Martin DO [address] [place], [place] [phone] Anemia, unspecified type Social History Tobacco Use [...] Description 02/22/2025 11:00 AM EST Nurse Only [facility] MEDICINE [address] [place] [address] 03/21/2025 9:45 AM EST Office Visit [facility] MEDICINE [address] [place] [address] Jaida Martin DO [address] [place] [address] 03/22/2025 3:00 PM EST Office Visit [facility] ADULT DENTAL [address] [place] [address] Campbell Nguyễn DDS [address] [place] [address] 04/19/2025 3:00 PM EST Office Visit [facility] OPTOMETRY [address] [place] [address] Soha Chappell, OD [address] [place] [address] 08/21/2025 9:30 AM EDT Office Visit [facility] ADULT DENTAL [address] [place] [address] Amanda Fernandez [address] [place], [place] [phone] documented as of this encounter Visit Diagnoses Diagnosis Anemia, unspecified type documented in this encounter Additional Health Concerns Assessment Noted Time PHQ-9 Depression Total Score: 0 01/22/20 10:22 AM EST documented as of this encounter Care Teams Water Taxi Captain Relationship Specialty Start Date End Date Jaida Martin DO [address] [place] [address] PCP - General Family Medicine 03/02/18 Pamela Andres Shift Production AssociateTeradata Architect 01/14/24 documented as of this encounter
--- OUTSIDE RECORDS SUMMARY | 2025-02-21 15:55 | XMS_ITS | Encounter Summary ---
Author Organization [employer] Address 75 [facility] 7t [place] [address] Care Team Providers Care Manager Sign Name Role Phone VeronicaJaida Primary Care Provider [phone] Reason for Visit * Reason Onset Date Comments Appointment 10/22/2022 Encounter Details Date Type Department Care Team ([facility] st Contact Info) Description 10/22/2022 Telephone [facility] ADULT DENTAL [address] [place], [place] [phone] Campbell Nguyễn DDS [address] [place], [place] [phone] Appointment Social History Tobacco Use Types Packs/Day [...] Description 02/22/2025 11:00 AM EST Nurse Only [facility] MEDICINE [address] [place] [address] 03/21/2025 9:45 AM EST Office Visit [facility] MEDICINE [address] [place] [address] Jaida Martin DO [address] [place] [address] 03/22/2025 3:00 PM EST Office Visit [facility] ADULT DENTAL [address] [place] [address] Campbell Nguyễn, DDS [address] [place] [address] 04/19/2025 3:00 PM EST Office Visit [facility] OPTOMETRY [address] [place] [address] Ta, Soha, OD [address] [place] [address] 08/21/2025 9:30 AM EDT Office Visit [facility] ADULT DENTAL [address] [place] [address] Jim Amanda [address] [place] [address] documented as of this encounter Visit Diagnoses Not on filedocumented in this encounter Care Teams Manager Sign Relationship Specialty Start Date End Date Jaida Martin DO [address] [place] [address] PCP - General Family Medicine 03/02/18 Pamela Andres Bottom ScrubberPulling Unit Operator 01/14/24 documented as of this encounter
--- OUTSIDE RECORDS SUMMARY | 2025-02-21 15:55 | XMS_ITS | Encounter Summary ---
Author Organization [employer] Address 75 [facility] 7t [place] [address] Care Team Providers Care Presentation Manager Name Role Phone Jaida Martin DO Primary Care Provider Encounter Details Date Type Department Care Team (Latest Contact Info) Description 06/04/2021 Abstract [facility] CONVERSIONS Dental, Provider, DDS Social History Tobacco [...] Description 02/22/2025 11:00 AM EST Nurse Only [facility] MEDICINE [address] [place] [address] 03/21/2025 9:45 AM EST Office Visit [facility] MEDICINE [address] [place] [address] Jaida Martin DO [address] [place] [address] 03/22/2025 3:00 PM EST Office Visit [facility] ADULT DENTAL [address] [place] [address] Campbell Nguyễn DDS [address] [place] [address] 04/19/2025 3:00 PM EST Office Visit [facility] OPTOMETRY [address] [place], [place] [phone] Soha Chappell, OD [address] [place] [address] 08/21/2025 9:30 AM EDT Office Visit [facility] ADULT DENTAL [address] [place] [address] Jim Amanda [address] [place] [address] documented as of this encounter Visit Diagnoses Not on filedocumented in this encounter Care Teams Presentation Manager Relationship Specialty Start Date End Date Jaida Martin DO [address] [place] [address] PCP - General Family Medicine 03/02/18 Pamela Andres Livestock HaulierCertified Performance Technologist 01/14/24 documented as of this encounter
--- OUTSIDE RECORDS SUMMARY | 2025-02-21 15:55 | XMS_ITS | Encounter Summary ---
Author Organization [employer] Address 75 [facility] 7t [place] [address] Care Team Providers Care Crate Opener Name Role Phone Jaida Martin DO Primary Care Provider Reason for Visit * Reason Onset Date Comments Nurse Triage 12/22/2023 Encounter Details Date Type Department Care Team ([facility] Contact Info) Description 12/22/2023 Telephone [facility] MEDICINE [address] [place], [place] [phone] Jaida Martin DO [address] [place] [address] Nurse Triage Social History Tobacco Use Types [...] 12/22/2023 4:50 PM EDT Triage call with [employer] [place] [id number] Pt reports episode of shortness of breath while picking up object. BP today is 134/86. Pt is takingBP medication Diovan as prescribe. Pt reports no other symptoms at time of call and SOB was momentary. Pt is offered to come to [facility] but, reports no transportation. TSK [...] Reason: Caller denied all higher acuity questions Panamanian Speaker (accepted biodiesel production associate) documented in this encounter Plan of Treatment Upcoming Encounters Date Type Department Care Team (Late st Contact Info) Description 02/22/2025 11:00 AM EST Nurse Only [facility] MEDICINE [address] [place] [address] 03/21/2025 9:45 AM EST Office Visit [facility] MEDICINE 230 [place] [address] Jaida Martin DO [address] [place] [address] 03/22/2025 3:00 PM EST Office Visit [facility] ADULT DENTAL 230 [place] [address] Campbell Nguyễn, DDS [address] [place] [address] 04/19/2025 3:00 PM EST Office Visit [facility] OPTOMETRY [address] [place] [address] Ta, Soha, OD [address] [place] [address] 08/21/2025 9:30 AM EDT Office Visit [facility] ADULT DENTAL 230 [place] [address] Jim, Amanda [address] [place] [address] documented as of this encounter Visit Diagnoses Not on filedocumented in this encounter Additional Health Concerns Assessment Noted Time PHQ-9 Depression Total Score: 4 08/17/19 24 12:18 PM EDT documented as of this encounter Care Teams Crate Opener Relationship Specialty Start Date End Date Jaida Martin DO [address] [place] [address] PCP - General Family Medicine 03/02/18 Pamela Andres Domestic Violence CounselorColumnist/Commentator 01/14/24 documented as of this encounter
--- OUTSIDE RECORDS SUMMARY | 2025-02-21 15:55 | XMS_ITS | Encounter Summary ---
Author Organization [employer] Address 75 [facility] 7t [place] [address] Care Team Providers Care Maintenance Supervisor Mechanical Name Role Phone Jaida Martin DO Primary Care Provider [phone] Reason for Visit * Reason Comments Med Refill Encounter Details Date Type Department Care Team ([facility] Contact Info) Description 01/13/2025 Refill [facility] [address] [place], [place] [phone] Jaida Martin DO [address] [place], [place] [phone] Chronic gastroesophageal reflux disease Social History Tobacco [...] 11:00 AM EST Nurse Only [facility] [address] [place] [address] 03/21/2025 9:45 AM EST Office Visit [facility] [address] [place] [address] Jaida Martin DO [address] [place] [address] 03/22/2025 3:00 PM EST Office Visit [facility] ADULT DENTAL [address] [place] [address] Campbell Nguyễn DDS [address] [place] [address] 04/19/2025 3:00 PM EST Office Visit [facility] OPTOMETRY [address] [place] [address] Soha Chappell, OD 230 [place] [address] 08/21/2025 9:30 AM EDT Office Visit [facility] ADULT DENTAL [address] [place] [address] Amanda Fernandez [address] [place] [address] documented as of this encounter Goals Goal [...] chronic kidney disease No Ray Pearce, PharmD documented as of this encounter Visit [...] documented as of this encounter Care Teams Maintenance Supervisor Mechanical Relationship Specialty Start Date End Date Jaida Martin DO [address] [place] [address] PCP - General Family Medicine 03/02/18 Pamela Andres Wet Finisher WoolSolar Mechanical Engineer 01/14/24 documented as of this encounter
--- OUTSIDE RECORDS SUMMARY | 2025-02-21 15:55 | XMS_ITS | Clinical Summary ---
Author Organization [facility] Address [address] [place] [address] Care Team Providers Care Gear Setter Name Role Phone Jaida Martin Primary Care Provider [phone] Allergies No known active allergies Medications cloNIDine [...] Info) Description 05/01/2025 2:30 PM EST Follow-Up [facility] [address] [place] [phone] Nancy Petty MD [address] [place] [address] [phone] Health Maintenance Due Date Last Done Comments [...] history exists Procedures * Due to [employer] law, this organization might not be sharing negative HIV tests. Procedure Name Priority Date/Time Associated Diagnosis Comments COMPREHENSIVE METABOLIC PANEL Routine 12/30/2023 9:51 AM EDT Intention tremor from Last 3 Months or Most Recently Relevant to Health Maintenance Results * Due to [facility] law, this organization might not be sharing negative HIV tests. * (ABNORMAL) Comprehensive Metabolic Panel (12/30/2023 9:51 AM EDT) NA 140 135 - 145 mmol/L 12/30/2023 11:25 AM EDT [facility] K 3.6 3.5 - 5.3 mmol/L 12/30/2023 11:25 AM EDT [facility] Cl 102 98 - 107 mmol/L 12/30/2023 11:25 AM EDT [facility] CO2 27 22 - 32 mmol/L 12/30/2023 11:25 AM EDT [facility] Anion Gap 11 5 - 15 12/30/2023 11:25 AM [facility] Glucose 171(H) 65 - 99 mg/dL 12/30/2023 11:25 AM [facility] Creatinine 0.41(L) 0.50 - 1.20 mg/dL 12/30/2023 11:25 AM [facility] Calcium 9.0 8.6 - 10.5 mg/dL 12/30/2023 11:25 AM [facility] Total Protein 7.6 6.0 - 8.0 g/dL 12/30/2023 11:25 AM [facility] Albumin 4.2 3.5 - 5.2 g/dL 12/30/2023 11:25 AM [facility] Bilirubin, Total 0.3 0.2 - 1.2 mg/dL 12/30/2023 11:25 AM [facility] Alkaline Phosphatase 152(H) 35 - 129 U/L 12/30/2023 11:25 AM [facility] AST 19 10 - 40 U/L 12/30/2023 11:25 AM [facility] ALT 12 10 - 40 U/L 12/30/2023 11:25 AM [facility] BUN 12 7 - 23 mg/dL 12/30/2023 11:25 AM [facility] eGFR >90 >=60 mL/min/1 .73m2 12/30/2023 11:25 AM [facility] Comment:The estimated [...] - 4.2 g/dL 12/30/2023 11:25 AM EDT [facility] A/G Ratio 1.2(L) 1.5 - 3.0 12/30/2023 11:25 AM EDT [facility] Blood Structure of peripheral vein / Unknown Venipuncture / Unknown 12/30/2023 9:51 AM EDT 12/30/2023 10:39 AM EDT us Nancy Petty MD LAB BLOOD ORDERABLES Fi nal Result [facility] [address] [place] [phone], from Last 3 Months or Most Recently Relevant to Health Maintenance Insurance [employer] Care Teams Gear Setter Relationship Specialty Start Date End Date Jaida Martin [address] [place] [phone] PCP - General Family Medicine 01/20/23
--- OUTSIDE RECORDS SUMMARY | 2025-02-21 15:55 | XMS_ITS | Encounter Summary ---
Author Organization [employer] Address [address] [facility] [address] [place] [address] Care Team Providers Care Footwear Machinery Instructor Name Role Phone VeronicaJaida Primary Care Provider + [phone] Reason for Visit * Reason Comments Med Refill Encounter Details Date Type Department Care Team ([facility] Contact Info) Description 05/14/2023 Refill [facility] [address], [place] [phone] Suni Quintanilla MD [address] [place], [place] [phone] Social History Tobacco Use Types Packs/Day Years [...] Description 02/22/2025 11:00 AM EST Nurse Only [facility] [address] [place] [phone] 03/21/2025 9:45 AM EST Office Visit [facility] [address] [place] [address] Jaida Martin DO [address] [place] [address] 03/22/2025 3:00 PM EST Office Visit [facility] ADULT DENTAL [address] [place] [address] Campbell Nguyễn, DDS [address] [place] [address] 04/19/2025 3:00 PM EST Office Visit [facility] OPTOMETRY [address] [place] [address] Ta, Soha, OD [address] [place] [address] 08/21/2025 9:30 AM EDT Office Visit [facility] AD[facility]ENTAL [address] [place] [address] Jim Amanda [address] [place] [address] documented as of this encounter Visit Diagnoses Not on filedocumented in this encounter Care Teams Footwear Machinery Instructor Relationship Specialty Start Date End Date Jaida Martin DO [address] [place] [address] PCP - General Family Medicine 03/02/18 Pamela Andres Supervisor Train OperationsTube Washer 01/14/24 documented as of this encounter
--- OUTSIDE RECORDS SUMMARY | 2025-02-21 15:55 | XMS_ITS | Clinical Summary ---
Author Organization [employer] [facility] it[facility] Address [address] [place] [address] Care Team Providers Care Hospital Administrative Assistant Name Role Phone Unavailable Primary Care Provider [...]
--- OUTSIDE RECORDS SUMMARY | 2025-02-21 15:55 | XMS_ITS | Encounter Summary ---
Author Organization [employer] Address [address] [place] [address] 7 [place] [address] Care Team Providers Care Special Education Inclusion Teacher Name Role Phone Jaida Martin DO Primary Care Provider Reason for Visit * Reason Onset Date Comments requesting a call back 03/07/2022 Encounter Details Date Type Department Care Team (Late Contact Info) Description 03/07/2022 Telephone [facility] [address] [place] [phone] Jaida Martin DO [address] [place] [phone] requesting a call back Social History Tobacco [...] a call back Please contact pt at [phone] documented in this encounter Plan of Treatment Upcoming Encounters Date Type Department Care Team (Late Contact Info) Description 02/22/2025 11:00 AM EST Nurse Only [facility] [address] [place] [address] [phone] 03/21/2025 9:45 AM EST Office Visit [facility] [address] [facility] [place] [address] Jaida Martin DO [address] [place] [address] 03/22/2025 3:00 PM EST Office Visit [facility] ADULT DENTAL [address] [place] [address] Campbell Nguyễn, DDS [address] [place] [address] 04/19/2025 3:00 PM EST Office Visit [facility] OPTOMET[facility] [address] [place] [address] Soha Chappell, OD [address] [place] [address] 08/21/2025 9:30 AM EDT Office Visit [facility] AD[facility] [address] [facility] [place] [address] Jim, Amanda [address] [facility] [place] [address] documented as of this encounter Visit Diagnoses Not on filedocumented in this encounter Care Teams Special Education Inclusion Teacher Relationship Specialty Start Date End Date Jaida Martin DO [address] [place] [address] PCP - General Family Medicine 03/02/18 Pamela Andres Online Merchandising CoordinatorLay Out Inspector 01/14/24 documented as of this encounter
--- OUTSIDE RECORDS SUMMARY | 2025-02-21 15:55 | XMS_ITS | Encounter Summary ---
Author Organization [employer] Address [address] [place] [address] 7[address] [place] [address] Care Team Providers Care Web Press Operator Apprentice Name Role Phone Jaida Martin DO Primary Care Provider [phone] Encounter Details Date Type Department Care Team (Late st Contact Info) Description 02/04/2022 Abstract [facility] [address] [place] [address] Dental, Provider, DDS Social History Tobacco Use [...] Description 02/22/2025 11:00 AM EST Nurse Only [facility] [address] [place] [phone] 03/21/2025 9:45 AM EST Office Visit [facility] [address] [place] [phone] Jaida Martin DO [address] [place] [address] 03/22/2025 3:00 PM EST Office Visit [facility] [address] [place] [address] Campbell Nguyễn DDS [address] [place] [address] 04/19/2025 3:00 PM EST Office Visit [facility] [address] [place] [address] Soha Chappell, OD [address] [place] [address] 08/21/2025 9:30 AM EDT Office Visit [facility] [address] [place] [address] Jim Amanda [address] [place] [address] documented as of this encounter Procedures Procedure [...] on filedocumented in this encounter Care Teams Web Press Operator Apprentice Relationship Specialty Start Date End Date Jaida Martin DO [address] [place] [phone] PCP - General Family Medicine 03/02/18 aPmela Andres Lawnmower Repair MechanicRehab Care Assistant 01/14/24 documented as of this encounter
--- OUTSIDE RECORDS SUMMARY | 2025-02-21 15:55 | XMS_ITS | Clinical Summary ---
Author Organization [employer] Address [address] [facility] 7t [place] [address] Care Team Providers Care Health Center Manager Name Role Phone VeronicaJaida Primary Care Provider [phone] Allergies No known active allergies Medications * [...] 360 tablet 3 2024 Active Continuous Glucose Senior Outside Sales Representative (FreeStyle Ortiz 3 [place]) device use as directed 2023 Active insulin NPH, Isophane, (HumuLIN N,NovoLIN N) 100 UNIT/ML injection Inject 50 Units under the skin every 12 (twelve) hours. Active Arnuity Ellipta 200 MCG/ACT inhaler INHALE 1 PUFF BY MOUTH EVERY DAY AT THE SAME TIME RINSE MOUTH AFTER USING. DO NOT SWALLOW 30 each 11 02/14/20 25 8:50 AM EST 2024 Active cyanocobalamin (Vitamin B-12) 1000 MCG/ML [...] MORNING BEFORE A MEAL 90 capsule 1 01/19/20 25 4:47 PM EST 2024 Active albuterol (2.5 MG/3ML) 0.083% nebulizer solution INHALE 1 AMPULE USING A NEBULIZER EVERY 6 HOURS NEEDED FOR WHEEZING OR SHORTNESS OF BREATH 90 mL 1 2024 Active docusate sodium (Colace) 100 MG capsuleIndications :Chronic constipation TAKE 1 CAPSULE BY MOUTH TWICE DAILY IN THE MORNING AND IN THE EVENING 180 capsule 1 02/17/20 25 8:15 AM EST 2024 Active albuterol (2.5 MG/3ML) 0.083% nebulizer solution INHALE 1 AMPULE USING A NEBULIZER EVERY 6 HOURS NEEDED FOR WHEEZING 90 mL 1 02/01 Discontinued docusate sodium (Colace) 100 MG capsuleIndications :Chronic constipation TAKE 1 CAPSULE BY MOUTH TWICE DAILY IN THE MORNING AND IN THE EVENING 180 capsule 1 02/07 Discontinued( Reorder (will not trigger notification to Pharmacy)) Hospital, Clinic, or Other Facility Administered Medication Ordered Dose Route Frequency Start Date End Date Status cyanocobalamin (Vitamin B-12) injection 1,000 mcgIndications:B12 deficiency 1000 mcg IM Every 8 weeks 02/15/2024 03/13/2025 Active Active Problems Problem Noted Date Diagnosed Date Fractured dental hoahaoism without loss of mat erial 02/16/2025 Dental caries on smooth surface limited to ename l 08/03/2024 Xerostomia 08/01/2024 Fractured dental hoahaoism with loss of materi al 06/24/2023 Missing [...] ambulance. WHO with EMS staff Taken to [facility] for SOB, weakness Will monitor for ED documents. F/u after discharge Fatty liver 06/17/2022 Mild persistent asthma 06/17/2022 Fibromyalgia 06/17/2022 Chronic bilateral low back pain 06/17/2022 Urinary incontinence 06/17/2022 BMI 40.0-44.9, adult ([facility]) 06/17/2022 Dental caries 06/02/2022 Chronic constipation 05/27/2022 Assessment & Plan (05/27/2022 1:56 PM EDT): Cololaf prn. Vitamin B12 deficiency 04/03/2022 Obstructive sleep [...] URI + Prednisone use Mounjaro Rx by lining brusher yesterday is on backorder for at least [...] glucose gel + glucagon Pt seen by freight car repairer at [facility] this yr [...] Encounters Date Type Department Care Team Description 02/16/2025 9:30 AM EST Office Visit [facility] ADULT DENTAL [address] [place] [address] Amanda Fernandez Dental plaque (Primary Dx); Missing teeth, acquired; Xerostomia; Fractured dental hoahaoism with loss of material; Fractured dental hoahaoism without loss of material 02/14/2025 Telephone [facility] MEDICINE [address] [place] [address] Jaida Martin DO March02/07/2025 Refill [facility] MED & PEDS [address] [place] [address] Jaida Martin DO Chronic constipation 02/07/2025 Orders Only GENERIC EXTERNAL DATA DEPARTMENT Provider, Generic External Data 01/28/2025 Refill [facility] MEDICINE [address] [place] [address] Jaida Martin DO 01/23/2025 Telephone [facility] MEDICINE [address] [place] [address] Jaida Martin DO Referral 01/13/2025 Refill [facility] MEDICINE [address] [place] [address] Jaida Martin DO Chronic gastroesophageal reflux disease 01/13/2025 Refill [facility] MEDICINE [address] [place] [address] Jaida Martin DO Chronic gastroesophageal reflux disease 01/12/2025 Refill [facility] MEDICINE [address] [place] [address] Jaida Martin DO Hyperlipidemia, unspecified hyperlipidemia type 12/27/2024 1:00 PM EDT Nurse Only [facility] MEDICINE [address] [place] [address] Tara Hartman, GIL Vitamin B12 deficiency [E53.8] 12/27/2024 Travel 12/15/2024 Refill [facility] [address] [place] [address] Jaida Martin DO Hyperlipidemia, unspecified hyperlipidemia type 12/14/2024 Refill [facility] [address] [place] [phone] Jaida Martin DO Hypothyroidism, unspecified type; Anemia, unspecified type; Vitamin D deficiency; Hyperlipidemia, unspecified hyperlipidemia type from Last 3 Months Immunizations Immunization Administration [...] Description 02/22/2025 11:00 AM EST Nurse Only [facility] MED[facility] [address] [place] [address] 03/21/2025 9:45 AM EST Office Visit [facility] MEDICINE [address] [place] [address] Jaida Martin DO [address] [place] [address] 03/22/2025 3:00 PM EST Office Visit [facility] ADULT DENTAL [address] [place] [address] Campbell Nguyễn DDS [address] [place] [address] 04/19/2025 3:00 PM EST Office Visit [facility] OPTOMETRY [address] [place] [address] Soha Chappell, OD [address] [place] [address] 08/21/2025 9:30 AM EDT Office Visit [facility] ADULT DENTAL [address] [place] [address] Jim Amanda [address] [place] [address] Health Maintenance Due Date Last Done Comments CT Colonography 1967 FIT DNA/Cologuard 1967 FIT 1967 FOBT 1965 Sigmoidoscopy 1967 Alcohol/Substance Use Screening 1979 RSV Patients and Patients Aged 60 years [...] Cervical Cancer Screening 12/20/2024 HPV/Cotest 12/20/2024 12/21/2019 Depression Screening 01/21/2025 01/22/2024, 01/22/20 24 Eye Exam 03/17/2025 03/17/2024, 03/02, 03/17/2024, Additional history exists Diabetes: Hemoglobin A1C 05/15/2025 025, 10/24/2024, 08/15/2024, Additional history exists Disability Screening 08/15/2025 08/15/2024 Dental Oral Exam 08/18/2025 02/16/2025, 04/2024, 04/17/2023, Additional history exists Dental Prophylaxis 08/18/2025 02/16/2025, 0 08/01/2024, 04/17/2023, Additional history exists Lipid Panel 10/24/2025 10/24/2024, 03/03, 03/30/2024, Additional history exists SDOH Screening 11/07/2025 11/07/2024 Tobacco Screening 02/16/2026 02/16/2025 Dental X-Ray: Bitewings 02/17/2026 02/17/20 25, 08/01/2024, 04/17/2023, Additional history exists Mammogram 10/18/2026 10/18/2024, 08/01, 07/29/2022, Additional history exists Dental X-Ray: Full Mouth 08/03/2027 025, 06/18/2021, 06/18/2021 DTaP/Tdap/Td Vaccines (4 - Td or Tdap) [...] Care Plan Weekly blood pressure task No Varghese Grover Weekly blood pressure task Care Plan Weekly blood pressure task No Grover Varghese Patient has chronic kidney disease Care Plan Patient has chronic kidney disease No Grover Varghese Patient has chronic kidney disease Care Plan Patient has chronic kidney disease No Reilly Varghese Weekly blood pressure task Care Plan [...] Care Plan Weekly blood pressure task No Lisa Huggins Weekly blood pressure task Care Plan Weekly blood pressure task No Lisa Huggins Patient has chronic kidney disease Care Plan Patient has chronic kidney disease No Lisa Huggins Patient has chronic kidney disease Care Plan Patient has chronic kidney disease No Lisa Huggins Procedures Procedure Name Priority Date/Time Associated Diagnosis Comments PERIODIC ORAL EVALUATION - ESTABLISHED PATIENT Routine 02/16/2025 9:30 AM EST 24,25 INTRAORAL - PERIAPICAL EACH ADDITIONAL RADIOGRAPHIC IMAGE Routine 02/16/2025 9:30 AM EST Dental plaque Missing teeth, acquired Xerostomia Fractured dental hoahaoism with loss of material Fractured dental hoahaoism without loss of material 29,30,31 INTRAORAL - PERIAPICAL EACH ADDITIONAL RADIOGRAPHIC IMAGE Routine 02/16/2025 9:30 AM EST Dental plaque Missing teeth, acquired Xerostomia Fractured dental hoahaoism with loss of material Fractured dental hoahaoism without loss of material 8,9 INTRAORAL - PERIAPICAL FIRST RADIOGRAPHIC IMAGE Routine 02/16/2025 9:30 AM EST Dental plaque Missing teeth, acquired Xerostomia Fractured dental hoahaoism with loss of material Fractured dental hoahaoism without loss of material BITEWINGS - 3 RADIOGRAPHIC IMAGES Routine 02/16/2025 9:30 AM EST Dental plaque Missing teeth, acquired Xerostomia Fractured dental hoahaoism with loss of material Fractured dental hoahaoism without loss of material CASE PRESENTATION, DETAILED AND EXTENSIVE TREATMENT PLANNING Routine 02/16/2025 9:30 AM EST Dental plaque Missing teeth, acquired Xerostomia Fractured dental hoahaoism with loss of material Fractured dental hoahaoism without loss of material ORAL HYGIENE INSTRUCTIONS Routine 02/16/2025 9:30 AM EST Dental plaque Missing teeth, acquired Xerostomia Fractured dental hoahaoism with loss of material Fractured dental hoahaoism without loss of material Full PROPHYLAXIS - ADULT Routine 02/16/2025 9:30 AM EST Dental plaque Missing teeth, acquired Xerostomia Fractured dental hoahaoism with loss of material Fractured dental hoahaoism without loss of material HEMATOXYLIN AND EOSIN STAIN Routine 02/07/2025 10:23 AM EST GLUCOSE, WHOLE BLOOD Routine 02/07/2025 9:24 AM EST POCT GLYCATED HEMOGLOBIN, TOTAL Routine 11/15/2024 10:36 AM EDT Type 2 diabetes mellitus with microalbuminuria, with long-term current use of insulin ([facility]) LIPID PANEL, STANDARD Routine 10/24/2024 9:18 AM EDT Type 2 diabetes mellitus with microalbuminuria, with long-term current use of insulin ([facility]) BI MAMMOGRAM SCREENING TOMOSYNTHESIS BILATERAL Routine 10/18/2024 11:35 AM EDT INTRAORAL - COMPLETE SERIES OF RADIOGRAPHIC IMAGES Routine 08/01/2024 10:00 AM EDT Dental caries Dental plaque Missing teeth, acquired Partial edentulism, unspecified edentulism class HEPATITIS PANEL, GENERAL Routine 07/21/2023 8:47 AM EDT HIV 1/2 ANTIGEN/ANTIBODY, FOURTH GENERATION W/RFL Routine 03/12/2020 8:49 AM EST HM PAP/HPV Routine 12/21/2019 HM COLONOSCOPY Routine 05/10/2018 from Last 3 Months or Most Recently Relevant to Health Maintenance Results * Hematoxylin and Eosin Stain (02/07/2025 10:23 AM EST) 02/07/2025 10:2 3 AM EST 02/07/2025 11:25 AM EST [facility] - 02/08/2025 11:03 AM EST ----- ------- Name: Sravan SotoCandace Age/Sex: 59/F : 1965 Unit#: [id number] Attend Dr: Kamila Blackman MD Re02/07/25 [place]: [facility]: [facility] Disch: ----- ------- SPEC : [id number] RECD: 02/07/25-1124 STATUS: MARIELA KELLOGG NUM: [id number] MELITA: 02/07/25-[address]: Kamila Blackman MD ENTERED: 02/07/25 SP TYPE: Surgical OTHR DR: Jaida Martin DO ORDERED: HE Stain/3, Gross Micro L4 Diagnosis Colon, sigmoid, polyps: Tubular adenomas (multiple pieces); negative for high-grade dysplasia and carcinoma. Clinical History Pre-Op Dx: Personal history of colon polyps, unspecified Post-Op Dx: Colon polyps, external/internal hemorrhoids Microscopic Description Microscopic sections reviewed. Material Received Sigmoid colon polyps Gross Description A. Labeled sigmoid colon polyps . Received in formalin is a 2.0 x 1.1 x 0.2 cm aggregate of soft, gottlieb to red fragmented portions of polypoid tissue which are wrapped in paper and submitted in toto in one cassette, multiple pieces. (TSL) IHC S/NG Disclaimer NOTE: Unless otherwise stated, all tissue is formalin-fixed and paraffin-embedded. Some or all of the immunohistochemical tests reported herein may have been developed and their performance characteristics determined by [facility]. They have not been cleared or approved by the U.S. Food and Drug Administration (FDA). However, the FDA has determined that such clearance or approval is not necessary. This laboratory is certified under the Clinical Laboratory Improvement Amendments of 1988 (CLIA) as qualified to perform high complexity clinical laboratory testing. Copies To: Jaida Martin DO [address] [address] CONTINUED ON NEXT PAGE ----- ------- Name: Candace Valdez Age/Sex: 59/F : 1965 Unit#: [id number] Attend Dr: Kamila Blackman MD Re02/07/25 Status: [facility] Location: [facility] Disch: ----- ------- SPEC : [id number] RECD: 02/07/25 STATUS: MARIELA KELLOGG NUM: [id number] MELITA: 02/07/[address]: Kamila Blackman MD ENTERED: 02/07/25 SP TYPE: Surgical OTHR DR: Jaida Martin DO ORDERED: WALLACE /3, Gross Micro L4 Copies To: (Continued) Kamila Blackman MD [facility] [address] [place] [phone] [email or web address] ----- ------- Signed (signature on file) Racquel Murphy MD 02/08/25 1103 ----- ------- END OF REPORT us Generic External Data Provider LAB BLOOD ORDERAB LES Final Result [facility] [address] [place] [address] [phone] * (ABNORMAL) Glucose, Whole Blood (02/07/2025 9:24 AM EST) Glucose, Whole Blood 230(H) 60 - 115 mg/dL [facility] Comment:METER #: [id number] 02/07/2025 9:24 AM EST 02/07/2025 9:35 AM EST us Generic External Data Provider LAB BLOOD ORDERAB LES Final Result [facility] [address] [place] [phone] * (ABNORMAL) POCT Hgb A1c (11/15/2024 10:36 AM EDT) Hemoglobin A1C 6.9(A) 4.0 - 5.7 % QC Media Lot # [id number] Lot# Expiration Date Blood 11/15/2024 10:3 6 AM EDT Jaida Martin DO POINT OF CARE TEST ENTER/RICHARD T ORDERABLES Final Result * Lipid Panel, Standard (10/24/2024 9:18 AM EDT) Triglycerides 115 <150 mg/dL [facility] Comment:Desirable Triglyceri de: less than 150 mg/dLBorderline High Triglyceride 150-199 mg/dLHigh Triglyceride: 200-499 mg/dLVery High Triglyceride: greater than or equal to 5OO mg/dL Cholesterol 101 <200 mg/dL [facility] Comment:Desirable Cholestero l: less than 200 mg/dLBorderline High Cholesterol: 200-239 mg/dLHigh Cholesterol: greater than 239 mg/dL LDL Cholesterol Calculated 36 <100 mg/dL [facility] Comment:Desirable LDL: less than 100 mg/dLNear Optimal/Above Optimal LDL: 110- 129 mg/dLBorderline High LDL: 130-159 mg/dLHigh LDL: 160-189 mg/dLVery High LDL: greater than or equal to 190 mg/dL HDL Cholesterol 42 >40 mg/dL [facility] Comment:Desirable HDL: great er than 40 mg/dL Note: This HDL assay may give artificially low results in patients with liver disease. Blood Venous blood specimen / Unknown 10/24/2024 9:18 AM EDT 10/24/2024 11:03 AM EDT Jaida Martin DO LAB BLOOD ORDERABLES Final R esult [facility] [address] [place] [address] [phone] * BI Mammogram Screening Tomosynthesis Bilateral (10/18/2024 11:35 AM EDT) Anatomical Region Laterality Modality Breast Bilateral Mammography 10/18/2024 11:3 5 AM EDT Narrative 10/20/2024 8:23 AM EDT [facility] [address] [place] [address] Mammography Report Signed Patient: Candace Valdez MR#: [id number] : 1965 Acct:[id number] Age/Sex: 59 / F ADM Date: 10/18/24 Loc: HO.MAMMO Attending Dr: Jaida Martin DO Ordering Physician: Jaida Martin DO Results: 1N egative Date of Service: 10/18/24 Follow Up: 1 Year From [facility] Mammogram Procedure(s): MM tomosynthesis screening BI Accession Number(s): [id number] cc: Jaida Martin DO EXAMINATION: MM SCREENING [...] Sulema Joseph DO 10/20/2024 08:19 AM EDT Dictated By: Sulema Joseph DO Signed By: <Electronically signed by Sulema Joseph DO in OV> 10/20/24 0819 DD/ 1135 TD/TT: 10/18/24 1156 Sequencing Machine Operator: Procedure Note Donotuseinterpreter, Image - 10/20/2024 [facility] [address] [place] [address] Mammography Report Signed Patient: Kelsea Valdez#: [id number] : 1965Acct:[id number] Age/Sex: 59 / FADM Date: 10/18/24 Loc: HO.MAMMO Attending Dr: Jaida Martin DO Ordering Physician: Jaida Martin DOResults: 1N egative Date of Service: 10/18/24Follow Up: 1 Year From [facility] Mammogram Procedure(s): MM tomosynthesis screening BI Accession Number(s): [id number] cc: Jaida Martin DO EXAMINATION: MM SCREENING [...] Joseph DO Signed By: <Electronically signed by Sluema Joseph DO in OV> 10/20/24 0819 DD/ 1135 TD/TT: 10/18/24 1156 Sequencing Machine Operator: us Jaida Martin DO IMG BI PROCEDURES Final Resu lt * Hepatitis Panel, General (07/21/2023 8:47 AM EDT) Hepatitis A IgM Nonreactive Nonreactive [facility] Comment:IgM antibodies to ACOSTA V not detected; does not exclude earlyacute or recovered HAV infection. ~Hepatitis B Surface Antibody REACTIVE Nonreactive [facility] Comment:REACTIVE: > 11.99 mI U/mL Hepatitis B Core Antibody Nonreactive Nonreactive [facility] Hepatitis C Antibody Nonreactive Nonreactive [facility] Comment:Antibodies to HCV no t detected; does not exclude early acuteHCV infection. Hepatitis B Surface Ag Negative Negative [facility] 07/21/2023 8:47 AM EDT 07/21/2023 8:47 AM EDT us Generic External Data Provider LAB BLOOD ORDERAB LES Final Result [facility] [address] [place] [phone] * HIV 1/2 ANTIGEN/ANTIBODY,FOURTH GENERATION W/RFL [...] purpose. For additional information please refer to http://education.VoltServer/faq/YOE642 (This link is being provided for informational/ educational purposes only.) The performance of this assay has not been clinically validated in patients less than 2 years old. 03/12/2020 8:49 AM EST Jaida Martin DO LAB BLOOD ORDERABLES Final R esult Performing Organization Address City/State/[facility] Co de Phone Number [facility] [address] * Pap Smear (12/21/2019) Pap Negative [...] 02/16/2025 Patient has chronic kidney disease 02/16/2025 Insurance [facility] C3 DENTAL-[facility] MEDICAID STAND ADULT Care Teams Health Center Manager Relationship Specialty Start Date End Date Jaida Martin DO [address] [place] [phone] PCP - General Family Medicine 03/02/18 Pamela Andres Jewelry RackerWall Cleaner 01/14/24
--- OUTSIDE RECORDS SUMMARY | 2025-02-21 15:55 | XMS_ITS | Encounter Summary ---
Author Organization [employer] Address [address] [facility] [address]t [place] [address] Care Team Providers Care Tactical Air Defense Controller Name Role Phone Jaida Martin DO Primary Care Provider [phone] Reason for Visit * Reason Onset Date Comments Referral 05/05/2022 Encounter Details Date Type Department Care Team ([facility] st Contact Info) Description 05/05/2022 Telephone [facility] MEDICINE [address] [place], [place] [phone] Jaida Martin DO [address] [place] [address] Referral Social History Tobacco Use Types Packs/Day [...] AM EST Noted pt. Last seen by [facility] April 2021 for gastroparesis and acid reflux. TC placed to pt. And reports she attempted to schedule f/up appt. But was advised they need a new R number to approve more visits. Please send R number to [facility], thank you! * Telephone Encounter - Sugar Vazquez - 05/05/2022 9:30 AM EST Tc from pt requesting a referral Location : [facility] Specialty: Gastrology Date and time : N/A documented in this encounter Plan of Treatment Upcoming Encounters Date Type Department Care Team (Late st Contact Info) Description 02/22/2025 11:00 AM EST Nurse Only [facility] MED[facility] [address] [place] [address] 03/21/2025 9:45 AM EST Office Visit [facility] MED[facility] [address] [place] [address] Jaida Martin DO [address] [place] [address] 03/22/2025 3:00 PM EST Office Visit [facility] ADULT DENTAL [address] [place] [address] Campbell Nguyễn DDS [address] [place] [address] 04/19/2025 3:00 PM EST Office Visit [facility] OPTOMETRY [address] [place] [address] Soha Chappell, OD [address] [place] [address] 08/21/2025 9:30 AM EDT Office Visit [facility] ADULT DENTAL [address] [place] [address] Amanda Fernandez [address] [place] [address] documented as of this encounter Visit Diagnoses Not on filedocumented in this encounter Care Teams Tactical Air Defense Controller Relationship Specialty Start Date End Date Jaida Martin DO [address] [place] [address] PCP - General Family Medicine 03/02/18 Pamela Andres Personal Support WorkerLobster Catcher 01/14/24 documented as of this encounter
--- OUTSIDE RECORDS SUMMARY | 2025-02-21 15:55 | XMS_ITS | Encounter Summary ---
Author Organization [employer] Address [address] [facility] 7t [place] [address] Care Team Providers Care Septic Pump Truck Driver Name Role Phone VeronicaJaida Primary Care Provider [phone] Reason for Visit * Reason Comments Med Refill Encounter Details Date Type Department Care Team ([facility] Contact Info) Description 02/03/2023 Refill [facility] MEDICINE [address] [place], [place] [phone] Lakshmi Jackson MD [address] [place], [place] [phone] Anemia, unspecified type Social History Tobacco Use [...] 11:00 AM EST Nurse Only [facility] MEDICINE [address] [place] [address] 03/21/2025 9:45 AM EST Office Visit [facility] MEDICINE [address] [place] [address] Jaida Martin DO [address] [place] [address] 03/22/2025 3:00 PM EST Office Visit [facility] ADULT DENTAL [address] [place] [address] Campbell Nguyễn, DDS [address] [place] [address] 04/19/2025 3:00 PM EST Office Visit [facility] OPTOMETRY [address] [place] [address] Ta, Soha, OD [address] [place] [address] 08/21/2025 9:30 AM EDT Office Visit [facility] ADULT DENTAL [address] [place] [address] Jc Fernandezaris [address] [place] [address] documented as of this encounter Visit Diagnoses Diagnosis Anemia, unspecified type documented in this encounter Care Teams Septic Pump Truck Driver Relationship Specialty Start Date End Date Jaida Martin DO [address] [place] [address] PCP - General Family Medicine 03/02/18 Pamela Andres Roofer MetalCorporate Investigator 01/14/24 documented as of this encounter
--- OUTSIDE RECORDS SUMMARY | 2025-02-21 15:55 | XMS_ITS | Encounter Summary ---
Author Organization [employer] Address [address] [facility] 7t [place] [address] Care Team Providers Care Medical Claims Assistant Name Role Phone Jaida Martin DO Primary Care Provider Reason for Visit * Reason Onset Date Comments Durable Medical Equipment 10/01/2022 Encounter Details Date Type Department Care Team ([facility] st Contact Info) Description 10/01/2022 Telephone [facility] MEDICINE [address] [place] [address] Jaida Martin DO [address] [place], [place] [phone] Durable Medical Equipment Social History Tobacco Use [...] Description 02/22/2025 11:00 AM EST Nurse Only [facility] MEDICINE [address] [place] [address] 03/21/2025 9:45 AM EST Office Visit [facility] MEDICINE [address] [place] [address] Jaida Martin DO [address] [place] [address] 03/22/2025 3:00 PM EST Office Visit [facility] ADULT DENTAL [address] [place] [address] Campbell Nguyễn, DDS [address] [place] [address] 04/19/2025 3:00 PM EST Office Visit [facility] OPTOMETRY [address] [place] [address] Ta, Soha, OD [address] [place] [address] 08/21/2025 9:30 AM EDT Office Visit [facility] ADULT DENTAL [address] [place] [address] Jim, Amanda [address] [place] [address] documented as of this encounter Visit Diagnoses Not on filedocumented in this encounter Care Teams Medical Claims Assistant Relationship Specialty Start Date End Date Jaida Martin DO [address] [place] [address] PCP - General Family Medicine 03/02/18 Pamela Andres Executive Secretary Social WelfareLucerne Farmer 01/14/24 documented as of this encounter
== END 2025-02-21 15:28 | disposition home or self-care (01) ==
LOC: HO.HSM 14:37
PROVIDERS: PCP Family Medicine; Visit Provider Psychiatry & Neurology Neurology
DX: G20.A1 Parkinson's disease without dyskinesia, without mention of fluctuations (principal)
CPT/HCPCS: 99214

== ENCOUNTER → 2025-02-21 14:36 | Outpatient (BNVA) | payer MEDICAID, SELFPAY | PROVIDERS: PCP Family Medicine; Visit Provider Psychiatry & Neurology Neurology | DX: G20.A1 Parkinson's disease without dyskinesia, without mention of fluctuations (principal) | CPT/HCPCS: 99212 ==